=== PATIENT | male | born 1945 | race Caucasian/White ===

== ENCOUNTER 2017-06-07 01:28 | Emergency (ER) | payer MEDICARE ==
[~2017-06-07] VITALS: Ht 175.3 cm; Wt 90.7 kg
[~2017-06-07 01:28] MED LIST: AMLODIPINE BESY10 MG PO; ASPIRIN EC81 MG PO; CARVEDILOL25 MG PO; CLONIDINE HCL0.1 MG PO; DELZICOL400 MG PO; FENOFIBRATE160 MG PO; FERROUS SULFAT325 MG PO; FUROSEMIDE20 MG PO; HUMALOG MI100 UNITS/ SUB-Q; HYDRALAZINE HCL10 MG PO; JANUVIA100 MG PO; JANUVIA50 MG PO; LANTUS100 UNITS/ SUB-Q; LIPITOR40 MG PO; LISINOPRIL40 MG PO; LOSARTAN POTASS50 MG PO; NIACIN500 M1 PO; NORCO 5-325 TA1 EACH PO; PLAVIX75 MG PO; POTASSIUM CHLO20 ME1 PO; RENVELA800 MG PO; SODIUM BICARBO650 MG PO; TERAZOSIN HCL10 MG PO; TERAZOSIN HCL5 MG PO; VANCOCIN HCL125 MG PO; VITAMIN C250 MG PO; VITAMIN D10000 UNIT PO; VITAMIN D5000 UNIT PO
[2017-06-07] MEDS ORDERED: CARVEDILOL3.125 MG PO (02:06)
--- NOTE | 2017-06-07 15:53 | EKG ---
[facility] [address] [place] [address] Signed Sinus rhythm with premature supraventricular complexes Left ventricular hypertrophy with repolarization abnormality Prolonged QT Abnormal ECG When compared with ECG of 03-MAR-2016 04:37, premature ventricular complexes are no longer present premature supraventricular complexes are now present QT has lengthened Confirmed by EDDIE MATUTE MD ([id number]) on 06/07/2017 3:53:28 PM Electronically Signed By: EDDIE MATUTE MD 06/07/17 1553 PATIENT NAME: BRIANNA WHEATLEY Electrocardiogram DATE OF : 43 PHYSICIAN: EDDIE MATUTE MD REPORT #: [id number] REPORT IS CONFIDENTIAL AND NOT TO BE RELEASED WITHOUT AUTHORIZATION
== END 2017-06-07 03:25 | disposition home or self-care (01) ==
LOC: ED 01:28
DX: R41.82 Altered mental status, unspecified (principal); E11.22 Type 2 diabetes mellitus with diabetic chronic kidney disease; I12.9 Hypertensive chronic kidney disease with stage 1 through stage 4 chronic kidney disease, or unspecified chronic kidney disease; N18.9 Chronic kidney disease, unspecified; E78.5 Hyperlipidemia, unspecified; G47.30 Sleep apnea, unspecified; Z95.2 Presence of prosthetic heart valve; Z88.0 Allergy status to penicillin; Z79.82 Long term (current) use of aspirin; Z79.899 Other long term (current) drug therapy; Z79.84 Long term (current) use of oral hypoglycemic drugs; Z86.73 Personal history of transient ischemic attack (TIA), and cerebral infarction without residual deficits
CPT/HCPCS: 70450; 71010; 80053; 84100; 84484; 85025; 93005; 93010; 99284; G0480

== ENCOUNTER 2017-08-20 16:46 | Emergency (ER) | payer MEDICARE ==
[~2017-08-20] VITALS: Ht 175.3 cm; Wt 87.1 kg
--- OUTSIDE RECORDS SUMMARY | ~2017-08-20 | XMS | Clinical Summary ---
Demographics + + + | Address | [address] | | | [place] [address] | + + + | Home Phone | | + + + | Preferred Language | Unknown | + + + | Marital Status | | + + + | Caodaism Affiliation | Unknown | + + + | Race | White | + + + | Ethnic Group | Not or | + + + Author + + + | Author | NON REVENUE LOCATIONS | + + + | Organization | NON REVENUE LOCATIONS | + + + | Address | Unknown | + + + | Phone | Unavailable | + + + Support + + +---------+ + | Name | Relationship | Address | Phone | + + +---------+ + | Marcela Vital | ECON | Unknown | | + + +---------+ + Care Team Providers + +------+ + | Care High School French Teacher Name | Role | Phone | + +------+ + | Star Doll MD | PP | | + +------+ + Source Comments YS is fully live on both [facility] Ambulatory and [facility] InPatient.[facility] Allergies Not on File Current Medications Not on file Active Problems + + + | Problem | Noted Date | + + + | Heart failure, unspecified | | + + + + + | Overview: 2728 diagosis | + + Social History + +-------+ +--------+------+ [...] on file | | + + + Plan of Treatment + + + + + | Health Maintenance | Due Date | Last Done | Comments | + + + + + | INFLUENZA VACCINE | | | | | (FLU SHOT) | 7 | | | + + + + + Results Not on filefrom Last 3 Months"
--- OUTSIDE RECORDS SUMMARY | ~2017-08-20 | XMS | Clinical Summary ---
Demographics + + + | Address | [address] | | | [place] [address] | + + + | Home Phone | | + + + | Preferred Language | Unknown | + + + | Marital Status | | + + + | Orthodoxy Affiliation | Unknown | + + + [...] Team Providers + +------+ + | Care Applications Developer Name | Role | Phone | + +------+ + | Star Doll MD | PP | | + +------+ + Source Comments SY is fully live on both [facility] Ambulatory and [facility] InPatient.[facility] & [facility] Allergies Not on File Current Medications Not [...]
[~2017-08-20 16:46] MED LIST changes: +CARVEDILOL3.125 MG PO
[2017-08-20] MEDS ORDERED: TOUJEO SOL300 UNIT/1 SUB-Q (16:55)
== END 2017-08-20 17:40 | disposition home or self-care (01) ==
LOC: ED 16:46
DX: T82.838A Hemorrhage due to vascular prosthetic devices, implants and grafts, initial encounter (principal); I12.0 Hypertensive chronic kidney disease with stage 5 chronic kidney disease or end stage renal disease; N18.6 End stage renal disease; E78.5 Hyperlipidemia, unspecified; Z99.2 Dependence on renal dialysis; Z86.73 Personal history of transient ischemic attack (TIA), and cerebral infarction without residual deficits
CPT/HCPCS: 99282

== ENCOUNTER 2019-12-23 19:01 | Emergency (ER) | payer MEDICARE, OTHER ==
[~2019-12-23] VITALS: Ht 175.3 cm; Wt 87.4 kg
--- OUTSIDE RECORDS SUMMARY | ~2019-12-23 | XMS | Encounter Summary ---
Demographics + + + | Address | [address] | | | [place] [address] | + + + | Home Phone | | + + + | Preferred Language | Unknown | + + + | Marital Status | | + + + | Scientology Affiliation | Unknown | + + + | Race | Unknown | + + + | Ethnic Group | Unknown | + + + Author + + + | Author | [facility] | | | and [place] | + + + | Organization | [facility] | | | and [place] | + + + | Address | Unknown | + + + | Phone | Unavailable | + + + Support + + + + + | Name | Relationship | Address | Phone | + + + + + | Marcela Vital | ECON | [address] | | | | | [address] | | | | | [address] | | + + + + + | Parth Vital | ECON | Unknown | | + + + + + Care Team Providers + +------+ + | Care German Tutor Name | Role | Phone | + +------+ + | Star Doll MD | PCP | | + +------+ + Reason for Visit + + + | Reason | Comments | + + + | Follow-up | 6 month with echo | + + + Encounter Details +--------+---------+ + + + | Date | Type | Department | Care Team | Description | +--------+---------+ + + + | 05/04/ | Office | [facility] | See Sotelo, | S/P TAVR | | 2019 | Visit | CARDIOLOGY [facility]ER[facility]O | [address] | (transcatheter | | | | [address] | [address], | aortic valve | | | | [address] | [place] [address] | replacement) | | | | [place] | [phone] | (Primary Dx); Aortic | | | | [address] | | valve stenosis, | | | | [phone] | | etiology of cardiac | | | | | | valve disease | | | | | | unspecified; | | | | | | Essential | | | | | | hypertension; | | | | | | Coronary artery | | | | | | disease involving | | | | | | hydaburg coronary | | | | | | artery of hydaburg | | | | | | heart without angina | | | | | | pectoris; History | | | | | | of non-ST elevation | | | | | | myocardial | | | | | | infarction (NSTEMI); | | | | | | Status post | | | | | | percutaneous | | | | | | transluminal | | | | | | coronary | | | | | | angioplasty; | | | | | | Cerebrovascular | | | | | | accident (CVA), | | | | | | unspecified | | | | | | mechanism (HCC); | | | | | | Type 2 diabetes | | | | | | mellitus with | | | | | | diabetic | | | | | | nephropathy, with | | | | | | long-term current | | | | | | use of insulin | | | | | | (HCC); Stage 5 | | | | | | chronic kidney | | | | | | disease (HCC) | +--------+---------+ + + + Social History + +-------+ +--------+------+ | Tobacco Use | Types | Packs/Day | Years | Date | | | | | Used | | + +-------+ +--------+------+ | Never Smoker | | | | | + +-------+ +--------+------+ + +---+---+---+ | Smokeless Tobacco: | | | | | Never Used | | | | + +---+---+---+ + + +---------+ + | Alcohol Use | Drinks/Week | oz/Week | Comments | + + +---------+ + | No | | | | + + +---------+ + + + + | Sex Assigned at | Date Recorded | | | | + + + | Not on file | | + + + documented as of this encounter Last Filed Vital Signs + + + + + | Vital Sign | Reading | Time Taken | Comments | + + + + + | Blood Pressure | 134/72 | 05/04/2019 2:33 PM | | | | | PST | | + + + + + | Pulse | 83 | 05/04/2019 2:33 PM | | | | | PST | | + + + + + | Temperature | - | - | | + + + + + | Respiratory Rate | 16 | 05/04/2019 2:33 PM | | | | | PST | | + + + + + | Oxygen Saturation | 98% | 05/04/2019 2:33 PM | | | | | PST | | + + + + + | Inhaled Oxygen | - | - | | | Concentration | | | | + + + + + | Weight | 90.9 kg (200 lb 4.8 | 05/04/2019 2:33 PM | | | | oz) | PST | | + + + + + | Height | 177.8 cm (5' 10") | 05/04/2019 2:33 PM | | | | | PST | | + + + + + | Body Mass Index | 28.74 | 05/04/2019 2:33 PM | | | | | PST | | + + + + + documented in this encounter Progress Notes See Sotelo MD - 05/04/2019 2:15 PM PSTFormatting of this note might be different corinna lazo the original. Subjective: Patient ID: Duane Vital is a 74 y.o. male. Patient's medications, allergies, past medical, surgical, social and family histories were obtained and reviewed as appropriate. HPI Mr. Vital, accompanied by his , came to the office for a follow up appointment for h is multiple cardiovascular problems. I have not seen him personally since 08/27/16, but he has been followed very EDSON Busby over the last 2 years and I reviewed her records. He had an acute NSTEMI and acute/chronic systolic heart failure in February,. He had 4 drug-eluting stents placed, and underwent catheterization in April in [facility] in [place]. His EF improved from 30-35% in February to 60%, as seen on his mo st recent echocardiogram, 03/25/19, which also showed normal TAVR function. He has had no s ignificant weight gain, has no pedal edema (he is on hemodialysis), denies chest pain, press ure or discomfort, orthopnea or paroxysmal nocturnal dyspnea. He remains on HD 3x per week, turned down as a transplant candidate at [facility] 2 years ago. He seems stable, however, and I made no changes in his medications. At this point, he can go to annual follow-up visits, b ut was advised to call for an earlier appointment if he develops any new symptoms or cardiac problems.. ROS CONSTITUTIONAL: Morbid obesity. No recent significant weight change, denies recent fever, chills (although he states he feels cold all the time), night sweats, but he has significan t fatigue NEUROLOGIC: He had a right-sided CVA, with residual left hand and finger numbness and tin gling, but no other residual deficits. He denies any history of migraines, seizures, syncope . He notes occasional dizziness, lightheadedness. Records from Dr. 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 He has diabetic retinopathy. 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 He has vitamin D deficiency.. No history of thyroid disorders or other endocrine problems. No excessive hunger, thirst. PULMONARY/SLEEP: He has mild dyspnea, as noted above, no orthopnea, paroxysmal nocturnal dyspnea. No history of asthma, emphysema. He has mild obstructive sleep apnea by history , but denies significant snoring, although he does admit to daytime somnolence. Sleep is n ot usually refreshing. CARDIOVASCULAR: Denies chest pain, pressure or discomfort. He has a history of CAD, NSTEM I 03/03/16, subsequently had 4 drug-eluting Stents placed. He had acute/chronic Systolic Hear t Failure, radiographic evidence of pulmonary edema 03/03/16. No history of cardiac arrhythmi as. No palpitations. Severe , TAVR 04/24, history of heart murmur, rheumatic fever. No h istory of hypertension, but has Hyperlipidemia. No edema, no claudication symptoms. -- Echo (03/25/19 - [facility]): EF 60%, normal RV size, function, normal TAVR with a small parava lvular leak, mild MR, trace TR, peak RVSP 24 mm Hg -- Echo (08/06/16): EF 60-65%, grade 1 diastolic dysfunction, normal RV size and function. N ormally functioning bioprosthetic aortic valve. No pericardial effusion. -- TAVR, #26 Retana-Agustín 3 (04/15/16 - [facility] Endocarditis prophylaxis required. -- PCI/stent (03/10/16): mid-LAD 3.73a64xe Xience, D1 2.53e29bw Xience. 03/13/16, prox-mid-RC A 2.78o82kz, 2.5x38mm Xience -- Cardiac Cath (03/04/16): RA 8, RV 47/13, PAP 36/19 (27), PCWP 23, CO 9.3, trans-aortic gr adient peak 40mmHg, mean 32, ZEKE 1.5, LM-mildly calcified without significant stenosis, 60% mid-LAD, 60% ostial S1, 80% D1, 50% ostial ramus, 40-50% LCx/OM, large RCA, 50/70/50% mid-RC A, small RPDA/RPLA. -- Echo (04/16/16 - [facility]): moderate concentric LVH, LVEF 55%, moderate LAE, A ortic root 38mm, TAVR (peak/mean gradients 25/12mmHg), trace AI, no MR, trace TR, trace PI -- Echo (01/29/16-[facility]): EF 62%, severe , ZEKE 0.9 cm, peak/mean transval vular gradient 63/40 mmHg. Moderate LAE, mild RVE, trace MR, TR, PI. No evidence of pulmonar y hypertension. -- Echo (03/05/16): EF 30-35%, mild RVE with normal function, severe , ZEKE 0.96 cm,pea k transvalvular velocity 4.1 m/s, peak/mean gradients 57 / 39 mm Hg, moderate Pulmonary HTN, RVSP 55 mm Hg GASTROINTESTINAL: No recent abdominal pain, nausea, vomiting or diarrhea. He had an upper GI bleed in January,, due to PUD (ulcer cauterized on EGD) denies recent melena, hemato chezia, hepatitis. He had evidence of diverticulosis on a colonoscopy 11/18/13. 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 Oliguria. No dysuria, hematuria, urinary ur gency, hesitancy. HEMATOLOGY/ONCOLOGY: No h/o bleeding disorders, DVT, PE. He notes easy bruisability w ithout significant bleeding. He has a history of chronic iron deficiency anemia, received intravenous iron at one time, due to his chronic kidney disease. No history of blood transfu sions. He has a history of skin cancer removed from his mid forehead. MUSCULOSKELETAL: No myalgias, arthralgias. No history of rheumatologic or autoimmune di seases. CUTANEOUS: Skin cancer removed from his forehead. No rashes, pruritus, lesions. PSYCHIATRIC: No history of depression, anxiety or other psychiatric problems. Past Medical History: Diagnosis Date Acute diastolic congestive heart failure (HCC) 03/03/2016 Acute upper GI bleed 01/18/2014 PUD on EGD, ulcer cauterized ADHF (acute decompensated heart failure) 03/09/2016 Anemia of chronic renal failure 01/24/2012 Aortic valve stenosis, severe Olvera's palsy 1997, 2004 Chronic kidney disease Stage IV-V Coronary artery disease involving hydaburg coronary artery of hydaburg heart Coronary artery disease involving hydaburg coronary artery with unstable angina pectoris (HCC) moderate 3-vessel CAD CVA (cerebral infarction) 2009 Left leg and arm weakness. Residual dysethesias of left arm Diabetes mellitus, type 2 ([facility]) 2005 Insulin-requiring, with diabetic Nephropathy, Retinopathy Diabetes type 2 with atherosclerosis of arteries of extremities ([facility]) HBP (high blood pressure) HFrEF (heart failure with reduced ejection fraction) ([facility]) 03/09/2016 Hypercholesterolemia Hyperlipidemia Hypertension Kidney disorder NSTEMI (non-ST elevated myocardial infarction) ([facility]) 03/03/2016 YISEL (obstructive sleep apnea) Paroxysmal atrial fibrillation ([facility]) 03/04/2016 Retinopathy due to secondary diabetes ([facility]) S/P PTCA (percutaneous transluminal coronary angioplasty) 03/10/2016 D1 - 2.25X15 mm Xience Alpine MESSI; mid LAD - 3.25X38 mm Xience Alpine MESSI S/P PTCA (percutaneous transluminal coronary angioplasty) 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 #26 Retana-Agustín 3 - [place] Secondary pulmonary hypertension mild (by cath - moderate by echo) Skin cancer Sleep apnea dx light apnea Stroke ([facility]) 2010 right surface stroke, residual left hand numbness/tingling Vitamin D deficiency Past Surgical History: Procedure Laterality Date AORTIC VALVE REPLACEMENT 04/15/2016 #26 Retana-Agustín 3 - [place] COLONOSCOPY CORONARY ANGIOPLASTY WITH STENT PLACEMENT 03/10/2016 D1 - 2.25X15 mm Xience Alpine MESSI; mid LAD - 3.25X38 mm Xience Alpine MESSI OTHER SURGICAL HISTORY Bilateral 2005? CATARACT EXTRACTION OTHER SURGICAL HISTORY Right 03/01/2016 AV FISTULA PLACEMENT - Procedure: AV FISTULA; Surgeon: Vivek Dias MD; Location: [facility] [place] [facility]; Service: Vascular; Laterality: Right; brachiocephalic fistula creation OTHER SURGICAL HISTORY ANOMALOUS PULMONARY VENOUS RETURN REPAIR TOTAL SKIN CANCER EXCISION mid forehead UPPER GASTROINTESTINAL ENDOSCOPY 01/18/2014 Procedure: ESOPHAGOGASTRODUODENOSCOPY; Surgeon: Caitlyn Khan MD; Location: [facility] ENDOSCOPY; Service: Gastroenterology; Laterality: N/A; Family History Problem Relation Age of Onset High blood pressure Sister Asthma Daughter High blood pressure Son Sleep apnea Brother Heart surgery Brother Cancer Mother unknown type Heart disease Father 68 [place] Other (see comment) Brother Kidney failure - had renal transplant Malig hypertherm Neg Hx Social History Socioeconomic History Marital status: Spouse name: Not on file Number of children: 2 Years of education: Not on file Highest education level: Not on file Occupational History Occupation: [employer] Comment: Retired Social Needs Financial resource strain: Not on file Food insecurity: Worry: Not on file Inability: Not on file Transportation needs: Medical: Not on file Non-medical: Not on file Tobacco Use Smoking status: Never Smoker Smokeless tobacco: Never Used Substance and Sexual Activity Alcohol use: No Drug use: No Comment: Drug use: No Sexual activity: Not on file Lifestyle Physical activity: Days per week: Not on file Minutes per session: Not on file Stress: Not on file Relationships Social connections: Talks on phone: Not on file Gets together: Not on file Attends moravian service: Not on file Active member of club or organization: Not on file Attends meetings of clubs or organizations: Not on file Relationship status: Not on file Intimate partner violence: Fear of current or ex partner: Not on file Emotionally abused: Not on file Physically abused: Not on file Forced sexual activity: Not on file Other Topics Concern Not on file Social History Narrative Lives in [facility], independent with activities of daily living, no falls, full co de. Allergies Allergen Reactions Penicillins Rash Reacted with a rash as a child. Has not had penicillins since. Cholestyramine Nausea And Vomiting Gemfibrozil Nausea And Vomiting Intolerance No active intolerances/contraindications Current Outpatient Medications Medication Sig Dispense Refill aspirin 81 mg EC tablet Take 81 mg by mouth Daily. atorvaSTATin (LIPITOR) 40 mg tablet B Kcotrkp-O-Afodn Acid (MARIELENA-MILADYS) TABS Take 1 tablet by mouth. carvedilol (COREG) 25 mg tablet Take 25 mg by mouth 2 times daily (with breakfast & din ner). cephalexin (KEFLEX) 500 mg capsule cholecalciferol (VITAMIN D-3) 1,000 units capsule Take 2,000 Units by mouth daily. clindamycin (CLEOCIN) 150 mg capsule ezetimibe (ZETIA) 10 mg tablet furosemide (LASIX) 40 mg tablet Take 2 tablets by mouth daily. Two tablets daily. Glucose Blood (BLOOD GLUCOSE TEST STRIPS) STRP 1 each by Other route as needed. Use as instructed insulin glargine (TOUJEO SOLOSTAR) 300 units/mL concentrated injection (pen) Inject 40 Units as directed daily. liraglutide (VICTOZA) 18 mg/3 mL injection 0.6 mg. losartan (COZAAR) 100 MG tablet Take 100 mg by mouth nightly. metFORMIN (GLUCOPHAGE) 500 mg tablet Take 1,000 mg by mouth 3 (three) times a week. Aft er HD Mon/Wed/Fri minoxidil 2.5 mg tablet Take 2 tablets by mouth every morning. 180 tablet 3 mometasone (ELOCON) 0.1 % cream potassium chloride (MICRO-K) 10 mEq CR capsule Take 1 capsule by mouth daily. terazosin (HYTRIN) 10 MG capsule Take 10 mg by mouth nightly. TRESIBA FLEXTOUCH 200 UNIT/ML concentrated injection (pen) UNIFINE PENTIPS 32G X 4 MM MISC No current facility-administered medications for this visit. Objective: BP 134/72 | Pulse 83 | Resp 16 | Ht 1.778 m (5' 10") | Wt 90.9 kg (200 lb 4.8 oz) | Sp O2 98% | BMI 28.74 kg/m PHYSICAL EXAM GENERAL: Morbidly obeseWell developed, well nourished elderly male, in no distr ess. Appears approximately stated age. HEENT: Normocephalic, atraumatic. EYES: Well healed iridectomies. PERRL, sclerae anicteric, no xanthelsasmas MOUTH: Oral mucosae moist, dentition adequate, no lesions noted NECK: No JVD, lymphadenopathy, thyromegaly, bruits. Carotid pulses are 1+ bilateral ly and delayed LUNGS: Clear bilaterally, with no rales, rhonchi, or wheezing noted, respirations unlabor ed HEART: Nondisplaced PMI, regular rate and rhythm, S1, S2 normal. 2/6 systolic crescendo decrescendo murmur at the base, radiating to the left sternal border. No rubs or gallops no doyle. ABDOMEN: Obese. Soft, nontender, no organomegaly, masses or bruits. Bowel sounds are no rmal in all 4 quadrants. The abdominal aortic pulsation is not palpable. EXTREMITIES: no edema bilaterally. Radial pulses 2+ on the left, nonpalpable on the right , where a brachiocephalic AV fistula surgical site is bandaged.. Femoral pulses are 2+ monica aterally without bruits. DP and PT pulses are 1+ bilaterally. SKIN: Warm and dry, capillary refill is normal, no lesions. NEUROLOGIC: Awake, alert and oriented x 3. No focal motor deficits. PSYCHIATRIC: Appropriate, affect appears normal EKG (recently reviewed today): Normal sinus rhythm, rate 82, first-degree AV block, mild, n onspecific inferolateral ST-T abnormalities, prolonged QT interval, QTc 507 ms, unable to co mpare directly with prior tracings due to computer issues the previous tracing 03/05/2018 rep orted a QTC of 492 ms Assessment: Duane was seen today for follow-up. Diagnoses and all orders for this visit: S/P TAVR (transcatheter aortic valve replacement) - ECG 12 lead Aortic valve stenosis, etiology of cardiac valve disease unspecified - ECG 12 lead Essential hypertension - ECG 12 lead Coronary artery disease involving hydaburg coronary artery of hydaburg heart without angina pec toris History of non-ST elevation myocardial infarction (NSTEMI) Status post percutaneous transluminal coronary angioplasty Cerebrovascular accident (CVA), unspecified mechanism (HCC) Type 2 diabetes mellitus with diabetic nephropathy, with long-term current use of insulin ( [facility]) Stage 5 chronic kidney disease (HCC) Plan: Follow up in 1 year documented in this en counter Plan of Treatment Not on filedocumented as of this encounter Procedures + +--------+ + + + | Procedure Name | Priori | Date/Time | Associated Diagnosis | Comments | | | ty | | | | + +--------+ + + + | ECG 12 LEAD | Routin | 05/04/2019 | S/P TAVR | Results for this | | | e | 2:39 PM | (transcatheter | procedure are in the | | | | PST | aortic valve | results section. | | | | | replacement) Aortic | | | | | | valve stenosis, | | | | | | etiology of cardiac | | | | | | valve disease | | | | | | unspecified | | | | | | Essential | | | | | | hypertension | | + +--------+ + + + documented in this encounter Results ECG 12 lead (05/04/2019 2:39 PM PST) + + + + + + | Component | Value | Ref Range | Performed | Pathologist | | | | | At | Signature | + + + + + + | VENTRICULAR | 82 | BPM | [facility] | | | RATE EKG | | | | | + + + + + + | ATRIAL RATE | 82 | BPM | [facility] | | + + + + + + | P-R | 240 | ms | [facility] | | | INTERVAL | | | | | + + + + + + | QRS | 96 | ms | [facility] | | | DURATION | | | | | + + + + + + | Q-T | 434 | ms | [facility] | | | INTERVAL | | | | | + + + + + + | Q-T | 507 | ms | [facility] | | | INTERVAL | | | | | | (CORRECTED) | | | | | + + + + + + | P WAVE AXIS | 111 | degrees | [facility] | | + + + + + + | QRS AXIS | 55 | degrees | [facility] | | + + + + + + | T AXIS | 88 | degrees | [facility] | | + + + + + + | INTERPRETAT | Sinus rhythm with 1st | | [facility] | | | ION TEXT | degree A-V | | | | | | blockProlonged | | | | | | QTAbnormal ECGWhen | | | | | | compared with ECG of | | | | | | 05-MAR-2018 | | | | | | 12:49,Previous ECG has | | | | | | undetermined rhythm, | | | | | | needs reviewNon-specific | | | | | | change in ST segment in | | | | | | Inferior | | | | | | leadsNonspecific T wave | | | | | | abnormality no longer | | | | | | evident in Inferior | | | | | | leadsPlease refer to | | | | | | Providers office visit | | | | | | note for Providers | | | | | | Interpretation.Confirmed | | | | | | by [facility] Read Only, | | | | | | CLAUDY Hawthorne ([id number]), | | | | | | medical editor [employer] | | | | | | [phone]) on 05/04/2019 | | | | | | 4:55:24 PM | | | | + + + + + + + + | Specimen | + + | | + + + + + | Narrative | Performed At | + + + | | | + + + + +---------+ + + | Performing | Address | City/State/Zipcode | Phone Number | | Organization | | | | + +---------+ + + | [facility] | | | | + +---------+ + + documented in this encounter Visit Diagnoses + + | Diagnosis | + + | S/P TAVR (transcatheter aortic valve replacement) - Primary | + + | Aortic valve stenosis, etiology of cardiac valve disease unspecified | + + | Essential hypertension Unspecified essential hypertension | + + | Coronary artery disease involving hydaburg coronary artery of hydaburg heart without | | angina pectoris | + + | History of non-ST elevation myocardial infarction (NSTEMI) Old myocardial infarction | + + | Status post percutaneous transluminal coronary angioplasty Postsurgical percutaneous | | transluminal coronary angioplasty status | + + | Cerebrovascular accident (CVA), unspecified mechanism (HCC) | + + | Type 2 diabetes mellitus with diabetic nephropathy, with long-term current use of | | insulin (HCC) | + + | Stage 5 chronic kidney disease (HCC) | + + documented in this encounter
--- OUTSIDE RECORDS SUMMARY | ~2019-12-23 | XMS | Encounter Summary ---
Demographics + + + | Address | [address] | | | [place] [address] | + + + | Home Phone | | + + + | Preferred Language | Unknown | + + + | Marital Status | | + + + | Shinto Affiliation | Unknown | + + + | Race | Unknown | + + + | Ethnic Group | Unknown | + + + Author + + + | Author | [facility] | | | and [place] | + + + | Organization | [facility] | | | and [place] | + + + | Address | Unknown | + + + | Phone | Unavailable | + + + Support + + + + + | Name | Relationship | Address | Phone | + + + + + | Marcela Jamesgan | ECON | [address] | | | | | [address] | | | | | [address] | | + + + + + | Parth Vital | ECON | Unknown | | + + + + + Care Team Providers + +------+ + | Care Photo Mask Inspector Name | Role | Phone | + +------+ + | Star Harris MD | PCP | | + +------+ + Encounter Details +--------+ + + + + | Date | Type | Department | Care Team | Description | +--------+ + + + + | 03/01/ | Hospital | [facility] | Vivek Dias MD | | | 2016 - | Encounter | [facility] | [address] | | | | | CARE [address]LO[address] | [place], [place] | | | 03/02/ | | [place] | [address] | | | 2015 | | [place], [place] | [phone] | | | | | [address] | | | | | | [phone] | | | +--------+ + + + + Social History + +-------+ [...] + + + | Blood Pressure | 164/72 | 03/02/2016 11:21 AM | | | | | PDT | | + + + + + | Pulse | 76 | 03/02/2016 11:21 AM | | | | | PDT | | + + + + + | Temperature | 36.6 C (97.9 F) | 03/02/2016 11:21 AM | | | | | PDT | | + + + + + | Respiratory Rate | 20 | 03/02/2016 11:21 AM | | | | | PDT | | + + + + + | Oxygen Saturation | - | - | | + + + + + | Inhaled Oxygen | - | - | | | Concentration | | | | + + + + + | Weight | 101.2 kg (223 lb 1.8 | 03/02/2016 11:21 AM | | | | oz) | PDT | | + + + + + | Height | 175.3 cm (5' 9") | 03/02/2016 11:21 AM | | | | | PDT | | + + + + + | Body Mass Index | 32.95 | 03/02/2016 11:21 AM | | | | | PDT | | + + + + + documented in this encounter Discharge Summaries Vishal Reza MD - 03/02/2016 10:57 AM PDTFormatting of this note might be differe nt from the original. Discharge Summaries by Vishal Reza MD at 03/02/16 1057 Author: Vishal Reza MD Service: Hospitalist Author Type: Physician Filed: 03/02/161812 Date of Service: 03/02/161056 Status: Signed Line Pilot: Vishal Reza MD (Physician) Related Notes: Original Note by Vishal Reza MD (Physician) filed at 03/02/16 11 06 [facility] Service: Hospitalist Physician Discharge Summary Pt: Duane Vital AGE/SEX: 70 y.o. male ROOM: 4463/4463-1 PCP: STAR HARRIS : 1945 Admit date: 03/01/2016 Discharge date and time: 03/02/16 Admitting Physician: Vivek Dias MD Discharge Physician: Vishal Reza MD Consults: Dr. Dias Primary Discharge Diagnoses: Principal Problem: Bradycardia Active Problems: Type 2 diabetes mellitus with diabetic nephropathy (HCC) Essential hypertension, benign Diabetic nephropathy (HCC) Dyslipidemia Obesity Proteinuria Iron deficiency Anemia of chronic renal failure, stage 5 (HCC) Aortic stenosis Chronic kidney disease, stage V (HCC) Resolved Problems: * No resolved hospital problems. * Secondary Discharge Diagnoses: Discharged Condition: stable Significant Diagnostic Studies: Us Arm Right Mapping For Dialysis 02/29/2016 1. A brachiocephalic fistula may be the best choice, as the basilic vein has a low insertion point and there is a stenosis of the distal radial artery Left hand dominant patient Would correlate with individual surgical protocol for this individual patient Sara ctronically signed by Aki Meyers MD on 02/29/2016 4:50 PM HPI and Hospital Course: This patient has a history of chronic kidney disease stage V, diabetes mellitus, severe ao rtic stenosis, hypertension, obesity, coronary artery disease. He underwent an AV-fistula pl acement in the right arm yesterday for future hemodialysis and after surgery the patient dev eloped bradycardia and hypotension and he felt dizzy. Hence, the patient was admitted to the hospital by the hospitalist services. Patient is on carvedilol at home. It was thought that the bradycardia and hypotension were a combination of medications, aortic stenosis and anes thesia. The patient received ephedrine and was also given 500 mL of normal saline bolus. Thi s increased his heart rate from 44 to 52 and blood pressure normalized. The admitting physic radha spoke to Dr. Germain, his regular dispatcher electric power, who suggested to monitor the patient overn ight. HOSPITAL COURSE The patient did not have any more events and his heart rate remained any where between 60 t o 70 and blood pressure was also normal. He received 110 mL of normal saline every hour. Diz ziness resolved. Today, patient is totally asymptomatic albeit some pain in the right arm at the site of the incision and wants to go home. His vitals are stable. Creatinine is 8.2 wit h BUN of 58 today. However, CO2 and potassium are both normal and patient does not have any signs or uremia. Hence, he does not require any urgent hemodialysis. He had a borderline low platelet count of 31 and hemoglobin is 8.3. Anemia is most likely of anemia of chronic dise ase. As patient is much improved now and has attained his baseline status, hence, he will be dis charged home. However, he will follow with Dr. Germain and Dr. Ly. He will receive postopera tive care by Dr. Dias upon discharge. I will continue all his home medications except carvedi lol until he sees Dr. Germain. Discharge Vitals: Filed Vitals: 03/02/16 0500 03/02/16 0558 03/02/16 0722 03/02/16 1029 BP: 173/77 171/76 156/86 Pulse: 62 65 72 Temp: 98 F (36.7 C) TempSrc: Axillary Resp: 20 Height: Weight: 101.2 kg (223 lb 1.7 oz) SpO2: 94% 94% Discharge Exam: Constitutional: Alert and oriented to person, place, and time. Appears well-developed and w ell-nourished. Cardiovascular: Normal rate, regular rhythm, normal heart sounds with S1 and S2 and intact distal pulses. Exam reveals no gallop and no friction rub. Systolic murmur grade III/ ov er aortic area and left sternal border heard. Pulmonary/Chest: Effort normal and breath sounds normal. No stridor. No respiratory distres s. no wheezes. no rales. exhibits no tenderness. Abdominal: Soft. Bowel sounds are normal. exhibits no distension and no mass. There is no t enderness. There is no rebound and no guarding. Musculoskeletal: Normal range of motion.exhibits no tenderness. exhibits no edema. Dressin g over right antecubital fossa. Neurological: Alert and oriented to person, place, and time. No cranial nerve deficit. Ex hibits normal muscle tone. Coordination normal. Skin: Skin is warm and dry. No rash noted. No erythema. Positive pallor. Psychiatric: Has a normal mood and affect. Behavior is normal. Judgment normal. LABS: Recent Labs Lab 03/02/16 0420 03/01/16 1024 WBC 6.99 6.17 HGB 8.3* 8.9* HCT 24.4* 26.7* PLT 131* 138* NEUTOPHILPCT 71.67 66.32 MONOPCT 10.26 10.29 Recent Labs Lab 03/02/16 0420 03/01/16 1024 NA 143 142 K 4.1 4.3 CL 109 108 CO2 23 22* BUN 58* 58* CREATININE 8.2* 8.1* PROT 5.7* -- BILITOT 0.3 -- ALT 13 -- AST 8* -- Invalid input(s): LABALBU Recent Labs Lab 03/02/16 0420 MG 2.3 No results for input(s): AMYLASE in the last 168 hours. No results for input(s): PHART, PO2ART, RRI0EEG, J3GYMBYW, BEART in the last 168 hours. No results for input(s): APTT, INR, PTT in the last 168 hours. Recent Labs Lab 03/02/16 0016 03/01/16 1809 03/01/16 1511 CKTOTAL 124 120 128 TROPONINI 0.021 0.027 0.026 CKMBINDEX 1.9 2.0 1.7 Disposition: Home or Self Care Patient Instructions: Medication List START taking these medications HYDROcodone-acetaminophen 5-325 MG per tablet QTY: 30 tablet Refills: 0 Commonly known as: NORCO Take 1-2 tablets by mouth every 6 (six) hours as needed for Pain. CONTINUE taking these medications amLODIPine 10 MG tablet Refills: 0 Commonly known as: NORVASC aspirin 81 MG tablet Refills: 0 atorvastatin 40 MG tablet Refills: 0 Commonly known as: LIPITOR furosemide 20 MG tablet Refills: 0 Commonly known as: LASIX glucose blood test strip Refills: 0 hydrALAZINE 10 MG tablet QTY: 84 tablet Refills: 3 Commonly known as: APRESOLINE Take 1 tablet by mouth 3 (three) times daily. insulin glargine 300 UNIT/ML injection Refills: 0 Commonly known as: TOUJEO losartan 50 MG tablet Refills: 0 Commonly known as: COZAAR sevelamer 800 MG tablet QTY: 180 tablet Refills: 11 Commonly known as: RENVELA Take 1 tablet by mouth 3 (three) times daily with meals. During meals. sitagliptan 100 MG tablet Refills: 0 Commonly known as: JANUVIA sodium bicarbonate 650 MG tablet QTY: 120 tablet Refills: 11 Take 1 tablet by mouth 4 (four) times daily. terazosin 5 MG capsule Refills: 0 Commonly known as: HYTRIN VITAMIN D PO Refills: 0 STOP taking these medications carvedilol 25 MG tablet Commonly known as: COREG Where to Get Your Medications These are the prescriptions that you need to shrimp picker. You may get the following medications from any pharmacy - HYDROcodone-acetaminophen 5-325 MG per tablet Activity: activity as tolerated Diet: diabetic diet and renal diet Wound Care: as directed Total time of discharge: 35 minutes. This included talking to patient, examining patient, d iscussing outpatient plan of care, reconciling home medications and dictating discharge summ carol. Follow-up with PCP in 4 days. Signed: Vishal Reza MD 03/02/2016 10:57 AM documented in this encounter Medications at Time of Discharge + + + +---------+ + + | Medication | Sig | Dispensed | Refills | Start | End Date | | | | | | Date | | + + + +---------+ + + | aspirin 81 mg EC | Take 81 mg by mouth | | 0 | | | | tablet | Daily. | | | | | + + + +---------+ + + | carvedilol (COREG) | Take 25 mg by mouth | | 0 | | | | 25 mg tablet | 2 times daily (with | | | | | | | breakfast & dinner). | | | | | + + + +---------+ + + | amlodipine | Take 10 mg by mouth | | 0 | | | | (NORVASC) 10 MG | Daily. | | | | 9 | | tablet | | | | | | + + + +---------+ + + | Ascorbic Acid | Take 250 mg by mouth | | 0 | | | | (VITAMIN C) 250 MG | 2 times daily. | | | | 9 | | tablet | | | | | | + + + +---------+ + + | Cholecalciferol | Take 1 capsule by | | 0 | | | | (VITAMIN D3) 5000 | mouth Daily. | | | | 9 | | UNITS CAPS | | | | | | + + + +---------+ + + | cloNIDine | Take 0.1 mg by | | 0 | | | | (CATAPRES) 0.1 mg | mouth. Two tablets | | | | 9 | | tablet | two times daily | | | | | + + + +---------+ + + | clopidogrel | Take 75 mg by mouth | | 0 | | | | (PLAVIX) 75 mg | Daily. | | | | 9 | | tablet | | | | | | + + + +---------+ + + | fenofibrate | Take 160 mg by mouth | | 0 | | | | (LOFIBRA, TRIGLIDE) | Daily. | | | | 9 | | 160 mg tablet | | | | | | + + + +---------+ + + | ferrous gluconate | Take 324 mg by mouth | | 0 | | | | (FERGON) 324 mg | 2 times daily (with | | | | 9 | | tablet | breakfast & | | | | | | | dinner). | | | | | + + + +---------+ + + | furosemide (LASIX) | Take 20 mg by mouth | | 0 | | | | 20 mg tablet | Daily. | | | | 9 | + + + +---------+ + + | insulin lispro | Inject 40 Units | | 0 | | | | protamine-insulin | under the skin 2 | | | | 9 | | lispro 75/25 | times daily (with | | | | | | (HUMALOG MIX 75/25 | breakfast & dinner). | | | | | | KWIKPEN) 100 | | | | | | | units/mL SUSP | | | | | | + + + +---------+ + + | lisinopril | Take 40 mg by mouth | | 0 | | | | (PRINIVIL,ZESTRIL) | Daily. | | | | 9 | | 40 MG tablet | | | | | | + + + +---------+ + + | niacin 500 mg | Take 500 mg by mouth | | 0 | | | | tablet | 2 times daily (with | | | | 9 | | | breakfast & | | | | | | | dinner). | | | | | + + + +---------+ + + | simvastatin | Take 40 mg by mouth | | 0 | | | | (ZOCOR) 80 mg tablet | nightly. | | | | 9 | + + + +---------+ + + | sitaGLIPtin | Take 100 mg by mouth | | 0 | | | | (JANUVIA) 100 mg | Daily. | | | | 9 | | tablet | | | | | | + + + +---------+ + + | terazosin (HYTRIN) | Take 5 mg by mouth | | 0 | | | | 5 mg capsule | nightly. | | | | 9 | + + + +---------+ + + | UNCODED | Wear while sleeping | 1 | 0 | 12/31/19 | | | MEDICATIONIndication | | Device | | 13 | 9 | | s: YISEL (obstructive | | | | | | | sleep apnea) | | | | | | + + + +---------+ + + documented as of this encounter Progress Notes Conversion Transaction, Provider Unknown - 03/02/2016 12:27 PM PDTFormatting of this note m ight be different from the original. Nurse Progress Note by Maurilio Bennett RN at 03/02/161226 Author: Maurilio Bennett RN Service: (none) Author Type: Registered Nurse Filed: 03/02/168 Date of Service: 03/02/161226 Status: Signed Line Pilot: Maurilio Bennett RN (Registered Nurse) Patient discharged to home via private vehicle with family. Went over AVS with Patient and answered all questions posed. No further questions at this time. Patient in stable conditi on. onver rosie Transaction, Provider Unknown - 03/02/2016 6:18 AM PDT Nurse Progress Note by Bereket Tabares RN at 03/02/16617 Author: Bereket Tabares RN Service: (none) Author Type: Registered Nurse Filed: 03/02/16626 Date of Service: 03/02/16617 Status: Signed Line Pilot: Bereket Tabares RN (Registered Nurse) Pt has remained asymptomatic throughout the night. HR has stayed in the upper 50's to 60's . SBP ashok from 130 to 150's. Hospitalist notified, decreased IVF to 50ml/hr. This AM, pt' s SBP continued to rise to the 170's, pt tolerating PO fluids, so IVF was stopped at 0610. Pt only able to void 50mL during the shift, bladder scan shows 359mL in bladder at 0600. Pt has intermittent urge to void. Pt's Blood glucose this AM was in the 60's. No insulin given last evening. Pt's blood suga r unable to rise above 70 after 3 juices and matt crackers. Will give 12mL D50 and rechec k. Will continue to monitor closely. onver rosie Transaction, Provider Unknown - 03/01/2016 4:42 PM PDT Progress Notes by Sandra Bliss RN at 03/01/16 9831 Author: Sandra Bliss RN Service: (none) Author Type: Registered Nurse Filed: 03/01/16 1643 Date of Service: 03/01/16 1642 Status: Signed Line Pilot: Sandra Bliss RN (Registered Nurse) [place] [address]; pt stable; hr=45; will bring pt up on portable monitor onver rosie Transaction, Provider Unknown - 03/01/2016 4:11 PM PDT Progress Notes by Flores Rausch RPH at 03/01/16 161 Author: Flores Rausch RPH Service: (none) Author Type: Pharmacist Filed: 03/01/161610 Date of Service: 03/01/16 161 Status: Signed Line Pilot: Flores Rausch RPH (Pharmacist) Renal Dosing Monitoring: Duane Vital 70 y.o. male Pharmacy dosing for renal function per Dr. Vivek Dias CREATININE: 8.1 mg/dL ABNORMAL (03/01/16 1024) Estimated creatinine clearance - 9.8 mL/min Will be starting hemodialysis Plan per protocol: No medications need adjustment at this time. Pharmacy will continue to monitor changes in medication orders and renal function and will adjust accordingly. 03/01/2016 4:10 PM Pharmacist: Flores Rausch onver rosie Transaction, Provider Unknown - 03/01/2016 2:45 PM PDT Progress Notes by Sandra Bliss RN at 03/01/16 1445 Author: Sandra Bliss RN Service: (none) Author Type: Registered Nurse Filed: 03/01/16 1634 Date of Service: 03/01/16 1445 Status: Signed Line Pilot: Sandra Bliss RN (Registered Nurse) Attempted orthostatic bp's per order from dr Jay; pt sleepy, but arousable, junctional rhyt hm in 40; pt got nauseated and dizzy sitting up at bedside; hr dropped to 37; pt backlying d own on stretcher. Dr Jay called. Dr Dias to call hospitalist for consult. Pt to stay the nigh t for observation and workup on 4th floor onver rosie Transaction, Provider Unknown - 03/01/2016 1:49 PM PDT Nurse Progress Note by Aileen Armas RN at 03/01/16 1349 Author: Aileen Armas RN Service: Urology Author Type: Registered Nurse Filed: 03/01/16 1350 Date of Service: 03/01/16 1349 Status: Signed Line Pilot: Aileen Armas RN (Registered Nurse) Spoke with Dr Jay regarding pt's junctional rhythm and blood pressure. Patient is ok to go to phase two onver rosie Transaction, Provider Unknown - 03/01/2016 11:45 AM PDT Nurse Progress Note by Jen Mast RN at 03/01/16 1145 Author: Jen Mast RN Service: (none) Author Type: Registered Nurse Filed: 03/01/16 1146 Date of Service: 03/01/16 1145 Status: Signed Line Pilot: Jen Mast RN (Registered Nurse) Pt provided with warm blanket by CNA. Amaya in the OR called out stating Dr. Jay wants type and screen ordered. Lab ordered placed. Lab in dept and went into his room to draw. Stefany Mast RN 03/01/2016 11:46 AM docume nted in this encounter H&P Notes Dorene Gorman MD - 03/01/2016 3:47 PM PDTFormatting of this note might be different fro m the original. H&P by Dorene Gorman MD at 03/01/16 6447 Author: Dorene Gorman MD Service: Hospitalist Author Type: Physician Filed: 03/01/16 8009 Date of Service: 03/01/16 1547 Status: Signed Line Pilot: Dorene Gorman MD (Physician) [facility] Service: Hospitalist Admission History & Physical Pt: Duane Vital AGE/SEX: 70 y.o. male ROOM: PACU Pool Room/PACU Pool* PCP: STAR HARRIS : 1945 TODAY'S DATE: 03/01/2016 Date of Admission: 03/01/2016 Chief Complaint: Bradycardia post operatively. History of Present Illness: The patient is a 70 y.o. male with significant past medical history of Aortic stenosis, re nal failure, obesity, htn, CAD who presents with bradycardia and hypotension in the postoper ative setting after AV fistula placed in the LUE. He did get all of his oral home medication s preoperatively, including the carvedilol 25mg. He has been NPO since late last night and h ad symptomatic lightheadedness that has progressed since the procedure. The anesthesiologist was Ren Jay Jr, MD, who I spoke to during my evaluation. Mr. Philly pat had bradycardia present on admission, which Dr. Jay attributed to adequate beta blockade from carvedilolol. The procedure was performed without incident with a modest amount of pain medication and benzo use, please see the medication admin tab for complete details. He was given ephedrine and his blood pressure and heart rate responded with an increase in both par ameters, though the heart rate did not increase more than 10 beats per minute. He was given an additional 500cc bolus of normal saline and this immediately reduced sensation of dizzine ss and nausea. He had no sensation of fullness of the bladder and typically does still make urine. Electrolytes prior to the procedure were reviewed and showed a cr of 8, but the potas sium was wnl. Mr. Vital has been under the care of Automotive Services Manager Dr. Germain in [place], who I spoke to. He is accompanied by his today who assists with the history. 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 Esophagogastroduodenoscopy N/A 01/18/2014 Procedure: ESOPHAGOGASTRODUODENOSCOPY; Surgeon: Caitlyn Khan MD; Location: [facility]; Service: Gastroenterology; Laterality: N/A; Prior To admission Meds: Prior to Admission medications Medication Sig Start Date End Date Taking? Authorizing Provider amlodipine (NORVASC) 10 MG tablet Take 5 mg by mouth daily. Yes Historical Provider aspirin 81 MG tablet Take 81 mg by mouth daily. Yes Historical Provider atorvastatin (LIPITOR) 40 MG tablet Take 40 mg by mouth nightly. Yes Historical Provider carvedilol (COREG) 25 MG tablet Take 25 mg by mouth 2 (two) times daily with meals. 06/28/13 Yes Jeanmarie Ly MD Cholecalciferol (VITAMIN D PO) Take 10,000 Int'l Units by mouth every evening. Yes Histor ical Provider furosemide (LASIX) 20 MG tablet Take 40 mg by mouth daily. Two tablets daily. Yes Histori mandy Provider hydrALAZINE (APRESOLINE) 10 MG tablet Take 1 tablet by mouth 3 (three) times daily. 10/20/15 Yes EDSON Rosenberg insulin glargine (TOUJEO) 300 UNIT/ML injection Inject 60 Units into the skin every morning . Yes Historical Provider losartan (COZAAR) 50 MG tablet Take 50 mg by mouth daily. Yes Historical Provider sevelamer (RENVELA) 800 MG tablet Take 1 tablet by mouth 3 (three) times daily with meals. During meals. 01/30/16 01/29/17 Yes EDSON Rosenberg sitagliptan (JANUVIA) 100 MG tablet Take 50 mg by mouth daily. Yes Historical Provider sodium bicarbonate 650 MG tablet Take 1 tablet by mouth 4 (four) times daily. 01/30/16 Yes EDSON Rosenberg terazosin (HYTRIN) 5 MG capsule Take 10 mg by mouth nightly. Yes Historical Provider glucose blood test strip 1 each by Other route as needed. Use as instructed Historical P bryan HYDROcodone-acetaminophen (NORCO) 5-325 MG per tablet Take 1-2 tablets by mouth every 6 (si x) hours as needed for Pain. 03/01/16 03/11/16 Vivek Dias MD Medications scheduled: ephedrine lidocaine buffered 1% 0.5 mL Intradermal Once sodium chloride (bolus) 500 mL Intravenous Once Allergies: Allergies Allergen Reactions Penicillins Other (See Comments) Gemfibrozil Nausea and Vomiting Questran [Cholestyramine] Nausea and Vomiting Immunization: Family Hx: Family History Problem Relation Age of Onset Cancer Mother Heart disease Father Saida parker Neg Hx Social Hx: Social History Substance Use Topics Smoking status: Never Smoker Smokeless tobacco: Never Used Alcohol Use: No Active CoMorbidities: Active comorbid conditions include: - hypertension - renal disease, CKD (Stage 5) - obesity due to excess calories - anemia - CAD - hypertensive cardiomyopathy - valvular problems/murmurs - PVD - sleep apnea - diabetes (type 2 with complications,) - past history of TIA - CVA Patient is negative for: a smoker, COPD Review of Symptoms: Constitutional: Negative for fever, chills, diaphoresis, activity change, appetite change, fatigue and unexpected weight change. He has had slight slurring of speech after benzodiazep ine use HENT: Negative for hearing loss, ear pain, nosebleeds, congestion, facial swelling, rhinorr hea, neck pain, neck stiffness, dental problem, tinnitus and ear discharge. Eyes: Negative for photophobia, pain, discharge, redness, itching and visual disturbance. Respiratory: Negative for apnea, cough, chest tightness, shortness of breath and wheezing. Cardiovascular: Negative for chest pain, palpitations and leg swelling. Gastrointestinal: Negative for nausea, vomiting, abdominal pain, diarrhea, constipation, bl ood in stool, abdominal distention, anal bleeding and rectal pain. Genitourinary: Negative for dysuria, frequency, hematuria, flank pain, difficulty urinating and dyspareunia. Musculoskeletal: Negative for back pain, joint swelling, arthralgias and gait problem. Skin: Negative for rash and wound. Neurological: see hpi Hematological: Negative for adenopathy. Does not bruise/bleed easily. Psychiatric/Behavioral: Negative for suicidal ideas, hallucinations, behavioral problems, c onfusion and agitation. Objective: Vital Signs: BP 97/51 mmHg | Pulse 44 | Temp(Src) 96.8 F (36 C) (Temporal) | Resp 23 | Ht 1.753 m (5 ' 9") | Wt 100.2 kg (220 lb 14.4 oz) | BMI 32.61 kg/m2 | SpO2 96% Physical Exam: Constitutional: Oriented to person, place, and time. Appears well-developed and well-nouris hed. Pale. Good historian. HEENT: Head: Normocephalic and atraumatic. Nose: Nose normal, no erythema, edema or bleeding. Mouth/Throat: Oropharynx is clear and no exudates. Oral mucous membranes are dry. Eyes: Conjunctivae are clear and EOM are normal. Pupils are equal, round, and reactive to l ight. Right eye exhibits no discharge. Left eye exhibits no discharge. No scleral icterus. Neck: Normal range of motion. Neck supple. No JVD present. No tracheal deviation present. N o thyromegaly present. There is no cervical adenopathy. Cardiovascular: decreased rate, regular rhythm, Harsh and loud systolic murmur, heard throu ghout the precordium and in the L mid axillary line. Exam reveals no gallop and no friction rub. L Radial pulse is difficult to palpate, and R radial pulse is almost not present. Ped al pulses are faint and symmetric. Pulmonary/Chest: Effort normal and breath sounds are decreased, examined in the partially s upine position due to symptomatic hypotension when upright. No stridor. No respiratory distr ess, no wheezes, no rales. Exhibits no tenderness. Abdominal: Soft. Bowel sounds are normal. Exhibits no distension and no mass. There is no t enderness. There is no rebound and no guarding. Extremities/Musculoskeletal: Normal range of motion. Exhibits no tenderness, no edema. Neurologic: Alert and oriented to person, place, and time. Has normal reflexes. No cranial nerve deficit. Exhibits normal muscle tone. Coordination normal. Skin: Skin is warm and dry. No rash noted, no erythema, no pallor. Psychiatric: Has a normal mood and affect. Behavior and judgment are appropriate. Data: Recent Labs Lab 03/01/16 1024 WBC 6.17 HGB 8.9* HCT 26.7* PLT 138* NEUTOPHILPCT 66.32 MONOPCT 10.29 Recent Labs Lab 03/01/16 1024 NA 142 K 4.3 CL 108 CO2 22* BUN 58* CREATININE 8.1* Phosphorus: Lab Results Component Value Date PHOS 5.0 11/20/2015 Invalid input(s): LABALBU No results for input(s): MG in the last 168 hours. No results for input(s): AMYLASE in the last 168 hours. No results for input(s): PHART, PO2ART, QFE0UTE, J6YIZARP, BEART in the last 168 hours. No results for input(s): APTT, INR, PTT in the last 168 hours. No results for input(s): TSH, T3FREE, FREET4 in the last 168 hours. No results for input(s): CKTOTAL, TROPONINI, TROPONINT, CKMBINDEX in the last 168 hours. EKG: personally reviewed by me and shows small p waves, bradycardia in the 40's, wide qrs b ut regular rhythm. Chest X-Ray: Not done US of the LUE 1. A brachiocephalic fistula may be the best choice, as the basilic vein has a low insertio n point and there is a stenosis of the distal radial artery Left hand dominant patient Would correlate with individual surgical protocol for this individual patient Problem List: Principal Problem: Bradycardia Active Problems: Type 2 diabetes mellitus with diabetic nephropathy (HCC) Essential hypertension, benign Diabetic nephropathy (HCC) Dyslipidemia Obesity Proteinuria Iron deficiency Anemia of chronic renal failure, stage 5 (HCC) Aortic stenosis Chronic kidney disease, stage V (HCC) Assessment and Plan: Bradycardia: multifactorial from taking medications while NPO, dehydration in the setting o f severe and preload dependence, persistent effects of IV narcotics for conscious sedatio n. He had virtually no urine as noted by bladder scan, and improved immediately with a small dose of IV fluids. - Admit to observation overnight - continuous pulse ox and tele - pacer pads and atropine at the bed side - continue IV fluids at 110cc/hr overnight and while NPO - continue NPO status for now to evaluate the persistence of the bradycardia. - hold hypertension and cardiac meds and plan to restart in the morning. Patient's old records and labs were reviewed in detail. Discussed with Dr. Germain, Mr. Vital's outpatient Automotive Services Manager. He recommended overnight o bservation as we are doing and to call the insulation estimator Automotive Services Manager if bradycardia persists and he requires pacemaker placement. Anemia and thrombocytopenia: - chronic and stable. These are consistent with bone marrow suppression in the setting of c hronic disease. - observation for now CAD/HTN - holding oral medications at this time until symptomatic hypotension has resolved - initial set of cardiac enzymes were normal and the EKG was reassuring that there are no n ew changes suggestive of new ischemia. Aortic Stenosis: The hypotension is likely exacerbated by severe and dependence of the h eart on preload to maintain blood pressure -continue iv fluids overnight. Nausea: secondary to hypovolemia, exacerbated by narcotic analgesia - iv fluids, npo - avoid ondansetron due to bradycardia - promethazine if needed DM: Sliding scale insulin for now - restart home regimen in the am Diet: NPO status for now. If heart rate continues to improve, then will plan restart diet l ater this evening. DVT prophy: - compression stockings and heparin 5000 iu q8, start in am if needed. Code Status: Prior Primary Care Physician: STAR HARRIS I explained the plan of care and management to the patient and explained that my colleague from the hospitalist service will continue his care. Patient verbalized understanding and ag reement with plan of care and did not have any more questions for me at the end of our inter action. More than 72 minutes was spent face to face in examination, explaining the plan of c are and counselling the patient as well as CPOE. Dorene Gomran MD 03/01/2016 3:48 PM Marcella Hernandez ARN P - 03/01/2016 11:29 AM PDT H&P by EDSON Westbrook at 03/01/16 1129 Author: EDSON Westbrook Service: Vascular Surgery Author Type: Advanced Registered N paris Practitioner Filed: 03/01/16 1214 Date of Service: 03/01/16 1129 Status: Addendum Line Pilot: EDSON Westbrook (Advanced Registered Nurse Juan David) Related Notes: Original Note by EDSON Westbrook (Advanced Registered Nurse Ismael medina) filed at 03/01/16 1130 [facility] Service: Vascular Surgery Pre-Operative History & Physical DIAGNOSIS: CKD INDICATION: SAME PROCEDURE: Right arm fistula creation CHIEF COMPLAINT: Worsening renal function History Obtained From: patient HISTORY OF PRESENT ILLNESS The patient is a 70 y.o. male with significant past medical history of HTN, hyperlipidemia , , DM, CVA, and CKD who presents with worsening renal function. Nephrology has requested fistula creation. We have discussed this with patient and he would like to proceed. REVIEW OF SYSTEMS Negative except for pertinent items noted in HPI. Past Medical History Diagnosis Date Hypertension Hyperlipidemia Diabetes mellitus, type 2 (HCC) TIA (transient ischemic attack) 2010 Heart murmur Stroke (HCC) surface stroke Sleep apnea dx light apnea Chronic kidney disease Anemia of chronic renal failure 01/24/2012 Acute upper GI bleed 01/18/2014 Past Surgical History Procedure Laterality Date Colonoscopy Cataract extraction 2004? Esophagogastroduodenoscopy N/A 01/18/2014 Procedure: ESOPHAGOGASTRODUODENOSCOPY; Surgeon: Caitlyn Khan MD; Location: [facility]; Service: Gastroenterology; Laterality: N/A; Allergies Allergen Reactions Penicillins Other (See Comments) Gemfibrozil Nausea and Vomiting Questran [Cholestyramine] Nausea and Vomiting No current facility-administered medications on file prior to encounter. Current Outpatient Prescriptions on File Prior to Encounter Medication Sig Dispense Refill amlodipine (NORVASC) 10 MG tablet Take 5 mg by mouth daily. aspirin 81 MG tablet Take 81 mg by mouth daily. atorvastatin (LIPITOR) 40 MG tablet Take 40 mg by mouth nightly. carvedilol (COREG) 25 MG tablet Take 25 mg by mouth 2 (two) times daily with meals. Cholecalciferol (VITAMIN D PO) Take 10,000 Int'l Units by mouth every evening. furosemide (LASIX) 20 MG tablet Take 40 mg by mouth daily. Two tablets daily. glucose blood test strip 1 each by Other route as needed. Use as instructed hydrALAZINE (APRESOLINE) 10 MG tablet Take 1 tablet by mouth 3 (three) times daily. 84 tablet 3 insulin glargine (TOUJEO) 300 UNIT/ML injection Inject 42 Units into the skin every mor ankur. losartan (COZAAR) 25 MG tablet Take 1 tablet by mouth 2 (two) times daily. (Patient thor ing differently: Take 50 mg by mouth daily.) 60 tablet 11 sevelamer (RENVELA) 800 MG tablet Take 1 tablet by mouth 3 (three) times daily with joan ls. During meals. 180 tablet 11 sitagliptan (JANUVIA) 100 MG tablet Take 50 mg by mouth daily. sodium bicarbonate 650 MG tablet Take 1 tablet by mouth 4 (four) times daily. 120 table t 11 terazosin (HYTRIN) 5 MG capsule Take 10 mg by mouth nightly. Family History Problem Relation Age of Onset Cancer Mother Heart disease Father Social History Social History Marital Status: Spouse Name: N/A Number of Children: 2 Years of Education: N/A Occupational History retired Social History Main Topics Smoking status: Never Smoker Smokeless tobacco: Never Used Alcohol Use: No Drug Use: No Sexual Activity: Partners: Female Control/ Protection: Abstinence Other Topics Concern Not on file Social History Narrative Lives in [facility], independent with activities of daily living, no falls, full co de. PHYSICAL EXAM Vital Signs: There were no vitals taken for this visit. Vitals reviewed. Constitutional: Patient appears well-developed and well-nourished. HENT: Head: Normocephalic and atraumatic. Mouth/Throat: Oropharynx is clear and moist. Cardiovascular: Normal rate and regular rhythm. Murmur noted Pulmonary/Chest: Effort normal and breath sounds normal. Abdominal: Soft. Bowel sounds are normal. Musculoskeletal: Normal range of motion. Neurological: Patient is alert and oriented to person, place, and time. Skin: Skin is warm and dry. Vascular: Palp radial and brachial pulses DATA CBC: Lab Results Component Value Date WBC 6.9 01/25/2014 RBC 3.39 01/25/2014 HGB 10.1* 01/23/2016 HGB 9.9* 08/28/2015 HCT 30.6* 01/23/2016 MCV 91.9 01/25/2014 MCH 30 01/25/2014 MCHC 33 01/25/2014 RDW 49.0 01/20/2014 PLT 212 01/25/2014 MPV 8.2 01/20/2014 DIFFTYPE AUTOMATED 01/20/2014 BMP: Lab Results Component Value Date NA 139 01/29/2016 K 4.3 01/29/2016 CL 106 01/29/2016 CO2 18* 01/29/2016 ANIONGAP 19.3 01/29/2016 GLUF 135* 01/29/2016 BUN 65* 01/29/2016 CREATININE 7.30* 01/29/2016 CREATININE 5.79* 11/22/2015 BCR 8.9 01/29/2016 CA 9.3 01/29/2016 CA 9.7 09/11/2015 EGFR 7 01/29/2016 PROBLEM LIST Patient Active Problem List Diagnosis Type 2 diabetes mellitus with diabetic nephropathy (HCC) Essential hypertension, benign Diabetic retinopathy (HCC) Diabetic nephropathy (HCC) Stroke (HCC) Dyslipidemia Obesity Proteinuria Vitamin D deficiency Iron deficiency Anemia of chronic renal failure, stage 5 (HCC) Elevated ferritin level Diarrhea Loss of appetite Loss of weight Metabolic acidosis Acute upper GI bleed Acute posthemorrhagic anemia Melena Hematemesis Murmur, cardiac Moderate aortic stenosis Aortic stenosis Chronic kidney disease, stage V (HCC) Hyperphosphatemia ASSESSMENT & PLAN 1. Patient is a 70 y.o. male with above specified procedure planned. 2. Procedure options, risks, benefits and alternatives reviewed with patient who express( es) understanding. Any and all questions were answered to their satisfaction. Primary Care Physician: EDSON Richardson 02/29/2016 *CORE MEASURES REMINDER: If the patient has a known or suspected infection prior to surger y, please add diagnosis to the problem list (consider: Infection 136.9). documented in this encounter Miscellaneous Notes Op Note - Vivek Dias MD - 03/01/2016 12:55 PM PDTFormatting of this note might be differen t from the original. Op Note by Vivek Dias MD at 03/01/16 125 Author: Vivek Dias MD Service: Vascular Surgery Author Type: Physician Filed: 03/01/16 1257 Date of Service: 03/01/16 1251 Status: Signed Line Pilot: Vivek Dias MD (Physician) [facility] Service: Vascular Surgery Operative Note Pre-operative Diagnosis: CKD and need for alf dialysis access Post-operative Diagnosis: Same Procedure(s): Right brachiocephalic fistula creation Surgeon: Vivek Dias MD Dairy Technologist(s): EDSON Westbrook Anesthesia: Monitor Anesthesia Care and Local anesthesia Estimated Blood Loss: Less Than 50 ml Other: IV Fluids: 350 ml Indications: See pre-operative history and physical. Findings: Right arm cephalic vein sclerotic. After anastomosis, good thrill in fistula. Dopplerable radial and ulnar signals. Complications: None apparent Description of Procedure: Patient was properly identified and brought to the operating eddie m where patient was placed supine on the operating table and patient underwent Monitor Anest hesia Care and Local anesthesia. Patient's right arm was then prepped and draped in the usua l sterile fashion. Local anesthetic was then given to the antecubital fossa and a transverse incision was then made. First the cephalic vein was identified and branches of the cephalic vein were ligated with 3-0 silk sutures and divided. Next, the brachial artery was also marcelo ntified and dissected. Patient was then given 3000 units of IV heparin. After 3 minutes an e nd-to-side anastomosis was created with the cephalic vein onto the brachial artery using 6-0 Prolene sutures in a running fashion. After completion of the anastomosis, there was a stro ng thrill in the fistula. The patient had a doppler signal of the radial artery at the end o f the case. The wound was then irrigated and hemostasis was then assured. The deep dermal t issue was then closed with 3-0 Vicryl and the skin was then closed with 4-0 Monocryl in a katz bcuticular fashion. Mastisol and Steri-Strip closures were then placed and a sterile dressin g was then applied. At the end of the case, sponge, needle, and instrument counts were corre ct x2. There were no apparent complications. Condition: Stable Vivek Dias MD 03/01/2016 documented in this encoun ter Plan of Treatment Not on filedocumented as of this encounter Procedures + +--------+ + + + | Procedure Name | Priori | Date/Time | Associated Diagnosis | Comments | | | ty | | | | + +--------+ + + + | POC GLUCOSE | Routin | 03/02/2016 | | Results for this | | | e | 11:40 AM | | procedure are in the | | | | PDT | | results section. | + +--------+ + + + | POC GLUCOSE | Routin | 03/02/2016 | | Results for this | | | e | 6:58 AM | | procedure are in the | | | | PDT | | results section. | + +--------+ + + + | POC GLUCOSE | Routin | 03/02/2016 | | Results for this | | | e | 6:21 AM | | procedure are in the | | | | PDT | | results section. | + +--------+ + + + | POC GLUCOSE | Routin | 03/02/2016 | | Results for this | | | e | 5:57 AM | | procedure are in the | | | | PDT | | results section. | + +--------+ + + + | POC GLUCOSE | Routin | 03/02/2016 | | Results for this | | | e | 5:31 AM | | procedure are in the | | | | PDT | | results section. | + +--------+ + + + | EXTERNAL LAB: CBC | Routin | 03/02/2016 | | Results for this | | | e | 4:20 AM | | procedure are in the | | | | PDT | | results section. | + +--------+ + + + | PHOSPHORUS | Routin | 03/02/2016 | | Results for this | | | e | 4:20 AM | | procedure are in the | | | | PDT | | results section. | + +--------+ + + + | MAGNESIUM | Routin | 03/02/2016 | | Results for this | | | e | 4:20 AM | | procedure are in the | | | | PDT | | results section. | + +--------+ + + + | COMPREHENSIVE | Routin | 03/02/2016 | | Results for this | | METABOLIC PANEL | e | 4:20 AM | | procedure are in the | | | | PDT | | results section. | + +--------+ + + + | TROPONIN I | Routin | 03/02/2016 | | Results for this | | | e | 12:16 AM | | procedure are in the | | | | PDT | | results section. | + +--------+ + + + | CK-MB | Routin | 03/02/2016 | | Results for this | | | e | 12:16 AM | | procedure are in the | | | | PDT | | results section. | + +--------+ + + + | CK TOTAL | Routin | 03/02/2016 | | Results for this | | | e | 12:16 AM | | procedure are in the | | | | PDT | | results section. | + +--------+ + + + | POC GLUCOSE | Routin | 03/01/2016 | | Results for this | | | e | 9:23 PM | | procedure are in the | | | | PDT | | results section. | + +--------+ + + + | TROPONIN I | Routin | 03/01/2016 | | Results for this | | | e | 6:09 PM | | procedure are in the | | | | PDT | | results section. | + +--------+ + + + | CK-MB | Routin | 03/01/2016 | | Results for this | | | e | 6:09 PM | | procedure are in the | | | | PDT | | results section. | + +--------+ + + + | CK TOTAL | Routin | 03/01/2016 | | Results for this | | | e | 6:09 PM | | procedure are in the | | | | PDT | | results section. | + +--------+ + + + | POC GLUCOSE | Routin | 03/01/2016 | | Results for this | | | e | 5:29 PM | | procedure are in the | | | | PDT | | results section. | + +--------+ + + + | TROPONIN I | Routin | 03/01/2016 | | Results for this | | | e | 3:11 PM | | procedure are in the | | | | PDT | | results section. | + +--------+ + + + | CK-MB | Routin | 03/01/2016 | | Results for this | | | e | 3:11 PM | | procedure are in the | | | | PDT | | results section. | + +--------+ + + + | CK TOTAL | Routin | 03/01/2016 | | Results for this | | | e | 3:11 PM | | procedure are in the | | | | PDT | | results section. | + +--------+ + + + | ECG 12 LEAD | Routin | 03/01/2016 | | Results for this | | | e | 3:02 PM | | procedure are in the | | | | PDT | | results section. | + +--------+ + + + | POC GLUCOSE | Routin | 03/01/2016 | | Results for this | | | e | 1:15 PM | | procedure are in the | | | | PDT | | results section. | + +--------+ + + + | TYPE AND SCREEN | Routin | 03/01/2016 | | Results for this | | | e | 11:50 AM | | procedure are in the | | | | PDT | | results section. | + +--------+ + + + | EXTERNAL LAB: CBC | Routin | 03/01/2016 | | Results for this | | | e | 10:24 AM | | procedure are in the | | | | PDT | | results section. | + +--------+ + + + | BASIC METABOLIC | Routin | 03/01/2016 | | Results for this | | PANEL | e | 10:24 AM | | procedure are in the | | | | PDT | | results section. | + +--------+ + + + | POC GLUCOSE | Routin | 03/01/2016 | | Results for this | | | e | 10:21 AM | | procedure are in the | | | | PDT | | results section. | + +--------+ + + + documented in this encounter Results POC Glucose (03/02/2016 11:40 AM PDT) + + + + + + | Component | Value | Ref Range | Performed | Pathologist | | | | | At | Signature | + + + + + + | Glucose, | 113 (H)Comment: Testing | 65 - 99 mg/dL | EXTERNAL | | | Fingerstick | performed at [facility];[address] | | LAB | | | | [address];[place] | | | | | | [address] | | | | + + + + + + + + | Specimen | + + | | + + + +---------+ + + | Performing | Address | City/State/Zipcode | Phone Number | | Organization | | | | + +---------+ + + | EXTERNAL LAB | | | | + +---------+ + + POC Glucose (03/02/2016 6:58 AM PDT) + + + + + + | Component | Value | Ref Range | Performed | Pathologist | | | | | At | Signature | + + + + + + | Glucose, | 74Comment: Testing | 65 - 99 mg/dL | EXTERNAL | | | Fingerstick | performed at [facility];[address] | | LAB | | | | [address];[place], [place] | | | | | | [address] | | | | + + + + + + + + | Specimen | + + | | + + + +---------+ + + | Performing | Address | City/State/Zipcode | Phone Number | | Organization | | | | + +---------+ + + | EXTERNAL LAB | | | | + +---------+ + + POC Glucose (03/02/2016 6:21 AM PDT) + + + + + + | Component | Value | Ref Range | Performed | Pathologist | | | | | At | Signature | + + + + + + | Glucose, | 61 (L)Comment: Testing | 65 - 99 mg/dL | EXTERNAL | | | Fingerstick | performed at [facility];[address] | | LAB | | | | [place] | | | | | | [address] | | | | + + + + + + + + | Specimen | + + | | + + + +---------+ + + | Performing | Address | City/State/Zipcode | Phone Number | | Organization | | | | + +---------+ + + | EXTERNAL LAB | | | | + +---------+ + + POC Glucose (03/02/2016 5:57 AM PDT) + + + + + + | Component | Value | Ref Range | Performed | Pathologist | | | | | At | Signature | + + + + + + | Glucose, | 68Comment: Testing | 65 - 99 mg/dL | EXTERNAL | | | Fingerstick | performed at [facility];[address] | | LAB | | | | [address];[place], [place] | | | | | | [address] | | | | + + + + + + + + | Specimen | + + | | + + + +---------+ + + | Performing | Address | City/State/Zipcode | Phone Number | | Organization | | | | + +---------+ + + | EXTERNAL LAB | | | | + +---------+ + + POC Glucose (03/02/2016 5:31 AM PDT) + + + + + + | Component | Value | Ref Range | Performed | Pathologist | | | | | At | Signature | + + + + + + | Glucose, | 66Comment: Testing | 65 - 99 mg/dL | EXTERNAL | | | Fingerstick | performed at [facility];[address] | | LAB | | | | [address];[place] | | | | | | [address] | | | | + + + + + + + + | Specimen | + + | | + + + +---------+ + + | Performing | Address | City/State/Zipcode | Phone Number | | Organization | | | | + +---------+ + + | EXTERNAL LAB | | | | + +---------+ + + External Lab: CBC (03/02/2016 4:20 AM PDT) + + + + + + | Component | Value | Ref Range | Performed | Pathologist | | | | | At | Signature | + + + + + + | WBC | 6.99Comment: Testing | 3.80 - 11.00 | EXTERNAL | | | | performed at [facility], [address] | K/uL | LAB | | | | [address], | | | | | | [place] [address] | | | | + + + + + + | Non- | 2.88 (L)Comment: Testing | 4.20 - 5.70 | EXTERNAL | | | Red Blood | performed at [facility], [address] | M/uL | LAB | | | Cells | [address], | | | | | Counted | [place] [address] | | | | + + + + + + | Hemoglobin | 8.3 (L)Comment: Testing | 13.2 - 17.0 | EXTERNAL | | | | performed at [facility], [address] | g/dL | LAB | | | | [address], | | | | | | [place] [address] | | | | + + + + + + | Hematocrit, | 24.4 (L)Comment: Testing | 39.0 - 50.0 % | EXTERNAL | | | POC | performed at [facility], [address] | | LAB | | | | [address], | | | | | | [place] [address] | | | | + + + + + + | MCV | 84.8Comment: Testing | 80.0 - 100.0 fl | EXTERNAL | | | | performed at [facility], [address] | | LAB | | | | [address], | | | | | | [place] [address] | | | | + + + + + + | MCH | 28.8Comment: Testing | 27.0 - 34.0 pg | EXTERNAL | | | | performed at [facility], [address] | | LAB | | | | [address], | | | | | | [place] [address] | | | | + + + + + + | MCHC | 34.0Comment: Testing | 32.0 - 35.5 | EXTERNAL | | | | performed at [facility], [address] | g/dL | LAB | | | | [address], | | | | | | [place] [address] | | | | + + + + + + | RDW-CV | 43.8Comment: Testing | 37 - 53 fl | EXTERNAL | | | | performed at [facility], [address] | | LAB | | | | [address], | | | | | | [place] [address] | | | | + + + + + + | Platelet | 131 (L)Comment: Testing | 150 - 400 K/uL | EXTERNAL | | | Count | performed at [facility], [address] | | LAB | | | Plasma | [address], | | | | | | [place] [address] | | | | + + + + + + | MPV | 9.9Comment: Testing | fl | EXTERNAL | | | | performed at [facility], [address] | | LAB | | | | [address], | | | | | | [place] [address] | | | | + + + + + + | Differentia | AUTOMATEDComment: | | EXTERNAL | | | l Type | Testing performed at | | LAB | | | | [facility], [address] | | | | | | [place] | | | | | | [address] | | | | + + + + + + | % Segmented | 71.67Comment: Testing | % | EXTERNAL | | | | performed at [facility], [address] | | LAB | | | Neutrophils | [address], | | | | | | [place] [address] | | | | + + + + + + | % | 15.69Comment: Testing | % | EXTERNAL | | | Lymphocytes | performed at [facility], [address] | | LAB | | | | [address], | | | | | | [place] [address] | | | | + + + + + + | % Monocytes | 10.26Comment: Testing | % | EXTERNAL | | | | performed at [facility], [address] | | LAB | | | | [address], | | | | | | [place] [address] | | | | + + + + + + | % | 1.46Comment: Testing | % | EXTERNAL | | | Eosinophils | performed at [facility], [address] | | LAB | | | | [address], | | | | | | [place] [address] | | | | + + + + + + | % Basophils | 0.92Comment: Testing | % | EXTERNAL | | | | performed at [facility], [address] | | LAB | | | | [address], | | | | | | [place] [address] | | | | + + + + + + | Absolute | 5.01Comment: Testing | 1.90 - 7.40 | EXTERNAL | | | Segmented | performed at [facility], [address] | K/uL | LAB | | | Neutrophils | [address], | | | | | | [place] [address] | | | | + + + + + + | Absolute | 1.10Comment: Testing | 1.00 - 3.90 | EXTERNAL | | | Lymphocytes | performed at [facility], [address] | K/uL | LAB | | | | [address], | | | | | | [place] [address] | | | | + + + + + + | Absolute | 0.72Comment: Testing | 0.00 - 0.80 | EXTERNAL | | | Monocytes | performed at [facility], [address] | K/uL | LAB | | | | [address], | | | | | | [place] [address] | | | | + + + + + + | Absolute | 0.10Comment: Testing | 0.00 - 0.50 | EXTERNAL | | | Eosinophils | performed at [facility], [address] | K/uL | LAB | | | | [address], | | | | | | [place] [address] | | | | + + + + + + | Absolute | 0.06Comment: Testing | 0.00 - 0.10 | EXTERNAL | | | Basophils | performed at [facility], [address] | K/uL | LAB | | | | [address], | | | | | | [place] [address] | | | | + + + + + + + + | Specimen | + + | Blood specimen | | (specimen) | + + + +---------+ + + | Performing | Address | City/State/Zipcode | Phone Number | | Organization | | | | + +---------+ + + | EXTERNAL LAB | | | | + +---------+ + + Phosphorus (03/02/2016 4:20 AM PDT) + + + + + + | Component | Value | Ref Range | Performed | Pathologist | | | | | At | Signature | + + + + + + | PHOSPHORUS | 6.8 (H)Comment: Testing | 2.3 - 4.8 mg/dL | EXTERNAL | | | | performed at [facility], [address] | | LAB | | | | [address], | | | | | | [place] [address] | | | | + + + + + + + + | Specimen | + + | Blood specimen | | (specimen) | + + + +---------+ + + | Performing | Address | City/State/Zipcode | Phone Number | | Organization | | | | + +---------+ + + | EXTERNAL LAB | | | | + +---------+ + + Magnesium (03/02/2016 4:20 AM PDT) + + + + + + | Component | Value | Ref Range | Performed | Pathologist | | | | | At | Signature | + + + + + + | Magnesium | 2.3Comment: Testing | 1.7 - 2.4 mg/dL | EXTERNAL | | | | performed at [facility], [address] | | LAB | | | | [address], | | | | | | [place] [address] | | | | + + + + + + + + | Specimen | + + | Blood specimen | | (specimen) | + + + +---------+ + + | Performing | Address | City/State/Zipcode | Phone Number | | Organization | | | | + +---------+ + + | EXTERNAL LAB | | | | + +---------+ + + Comprehensive Metabolic Panel (03/02/2016 4:20 AM PDT) + + + + + + | Component | Value | Ref Range | Performed | Pathologist | | | | | At | Signature | + + + + + + | Na | 143Comment: Testing | 135 - 145 | EXTERNAL | | | | performed at [facility], [address] | mmol/L | LAB | | | | [address], | | | | | | [place] [address] | | | | + + + + + + | K | 4.1Comment: Testing | 3.5 - 4.9 | EXTERNAL | | | | performed at [facility], [address] | mmol/L | LAB | | | | [address], | | | | | | [place] [address] | | | | + + + + + + | Cl | 109Comment: Testing | 99 - 109 mmol/L | EXTERNAL | | | | performed at [facility], [address] | | LAB | | | | [address], | | | | | | [place] [address] | | | | + + + + + + | CO2 | 23Comment: Testing | 23 - 32 mmol/L | EXTERNAL | | | | performed at [facility], [address] | | LAB | | | | [address], | | | | | | [place] [address] | | | | + + + + + + | Anion Gap | 15Comment: Testing | 5 - 20 mmol/L | EXTERNAL | | | | performed at [facility], [address] | | LAB | | | | [address], | | | | | | [place] [address] | | | | + + + + + + | Glucose, | 72Comment: Testing | 65 - 99 mg/dL | EXTERNAL | | | Fasting | performed at [facility], [address] | | LAB | | | | [address], | | | | | | [place] [address] | | | | + + + + + + | BUN | 58 (H)Comment: Testing | 8 - 25 mg/dL | EXTERNAL | | | | performed at [facility], [address] | | LAB | | | | [address], | | | | | | [place] [address] | | | | + + + + + + | Creatinine | 8.2 (H)Comment: Testing | 0.70 - 1.30 | EXTERNAL | | | | performed at [facility], [address] | mg/dL | LAB | | | | [address], | | | | | | [place] [address] | | | | + + + + + + | BUN/Creatin | 7Comment: Testing | | EXTERNAL | | | ine Ratio | performed at [facility], [address] | | LAB | | | | [address], | | | | | | [place] [address] | | | | + + + + + + | Calcium | 8.3 (L)Comment: Testing | 8.5 - 10.5 | EXTERNAL | | | | performed at [facility], [address] | mg/dL | LAB | | | | [address], | | | | | | [place] [address] | | | | + + + + + + | Protein, | 5.7 (L)Comment: Testing | 6.3 - 8.2 g/dL | EXTERNAL | | | Total | performed at [facility], [address] | | LAB | | | | [address], | | | | | | [place] [address] | | | | + + + + + + | Albumin | 2.8 (L)Comment: Testing | 3.3 - 4.8 g/dL | EXTERNAL | | | | performed at [facility], [address] | | LAB | | | | [address], | | | | | | [place] [address] | | | | + + + + + + | Globulin | 2.9Comment: Testing | 1.3 - 4.9 g/dL | EXTERNAL | | | | performed at [facility], [address] | | LAB | | | | [address], | | | | | | [place] [address] | | | | + + + + + + | A/G Ratio | 1.0Comment: Testing | 1.0 - 2.4 | EXTERNAL | | | | performed at [facility], [address] | | LAB | | | | [address], | | | | | | [place] [address] | | | | + + + + + + | Bilirubin | 0.3Comment: Testing | 0.1 - 1.5 mg/dL | EXTERNAL | | | Total | performed at [facility], [address] | | LAB | | | | [address], | | | | | | [place] [address] | | | | + + + + + + | ALP, | 38Comment: Testing | 35 - 115 U/L | EXTERNAL | | | External | performed at [facility], [address] | | LAB | | | | [address], | | | | | | [place] [address] | | | | + + + + + + | AST | 8 (L)Comment: Testing | 10 - 45 U/L | EXTERNAL | | | | performed at [facility], [address] | | LAB | | | | [address], | | | | | | [place] [address] | | | | + + + + + + | ALT | 13Comment: Testing | 10 - 65 U/L | EXTERNAL | | | | performed at [facility], [address] | | LAB | | | | [address], | | | | | | [place] [address] | | | | + + + + + + | Estimated | 7 (L)Comment: GFR <60: | mL/min/1.73m2 | EXTERNAL | | | GFR | CHRONIC KIDNEY DISEASE, | | LAB | | | | IF FOUND OVER A 3 MONTH | | | | | | PERIOD.GFR <15: KIDNEY | | | | | | FAILURE.FOR | | | | | | AMERICANS, MULTIPLY THE | | | | | | CALCULATED GFR BY | | | | | | 1.210.Testing performed | | | | | | at [facility], [address] | | | | | | [facility], | | | | | | [place] [address] | | | | + + + + + + + + | Specimen | + + | Blood specimen | | (specimen) | + + + +---------+ + + | Performing | Address | City/State/Zipcode | Phone Number | | Organization | | | | + +---------+ + + | EXTERNAL LAB | | | | + +---------+ + + CK-MB (03/02/2016 12:16 AM PDT) + + + + + -+ | Component | Value | Ref Range | Performed | Pathologist | | | | | At | Signature | + + + + + -+ | CK-MB | 2.4Comment: Testing | 0.5 - 3.6 ng/mL | EXTERNAL | | | | performed at [facility];[address] | | LAB | | | | [address];[place], [place] | | | | | | [address] | | | | + + + + + -+ | CK-MB Index | 1.9Comment: CK INDEX | | EXTERNAL | | | | INTERPRETATION: | | LAB | | | | MMB ng/mL | | | | | | | | | | | |CK INDEX INTERPRETATION: | | | | | | MMB ng/mL | | | | | | | | | | + + + + + -+ + + | Specimen | + + | | + + + +---------+ + + | Performing | Address | City/State/Zipcode | Phone Number | | Organization | | | | + +---------+ + + | EXTERNAL LAB | | | | + +---------+ + + Troponin I (03/02/2016 12:16 AM PDT) + + + + + + | Component | Value | Ref Range | Performed | Pathologist | | | | | At | Signature | + + + + + + | Troponin I, | 0.021Comment: 0.00 to | 0.00 - 0.10 | EXTERNAL | | | Qual | 0.10 CONSISTENT WITH | ng/mL | LAB | | | | NORMAL POPULATION0.11 to | | | | | | 0.60 CONSISTENT WITH | | | | | | INCREASED RISK FOR | | | | | | ADVERSE OUTCOMES> 0.60 | | | | | | CONSISTENT | | | | | | WITH WHO CRITERIA FOR | | | | | | ACUTE MA Testing | | | | | | performed at [facility] | | | | | | [facility];[place], [place] | | | | | | [address] | | | | + + + + + + + + | Specimen | + + | Blood specimen | | (specimen) | + + + +---------+ + + | Performing | Address | City/State/Zipcode | Phone Number | | Organization | | | | + +---------+ + + | EXTERNAL LAB | | | | + +---------+ + + CK Total (03/02/2016 12:16 AM PDT) + + + + + + | Component | Value | Ref Range | Performed | Pathologist | | | | | At | Signature | + + + + + + | CK, Total | 124Comment: Testing | 55 - 400 U/L | EXTERNAL | | | | performed at [facility];[address] | | LAB | | | | [address];[place], [place] | | | | | | [address] | | | | + + + + + + + + | Specimen | + + | Blood specimen | | (specimen) | + + + +---------+ + + | Performing | Address | City/State/Zipcode | Phone Number | | Organization | | | | + +---------+ + + | EXTERNAL LAB | | | | + +---------+ + + POC Glucose (03/01/2016 9:23 PM PDT) + + + + + + | Component | Value | Ref Range | Performed | Pathologist | | | | | At | Signature | + + + + + + | Glucose, | 127 (H)Comment: Testing | 65 - 99 mg/dL | EXTERNAL | | | Fingerstick | performed at [facility];[address] | | LAB | | | | [address];[place], [place] | | | | | | [address] | | | | + + + + + + + + | Specimen | + + | | + + + +---------+ + + | Performing | Address | City/State/Zipcode | Phone Number | | Organization | | | | + +---------+ + + | EXTERNAL LAB | | | | + +---------+ + + CK-MB (03/01/2016 6:09 PM PDT) + + + + + -+ | Component | Value | Ref Range | Performed | Pathologist | | | | | At | Signature | + + + + + -+ | CK-MB | 2.4Comment: Testing | 0.5 - 3.6 ng/mL | EXTERNAL | | | | performed at [facility];[address] | | LAB | | | | [address];[place], [place] | | | | | | [address] | | | | + + + + + -+ | CK-MB Index | 2.0Comment: CK INDEX | | EXTERNAL | | | | INTERPRETATION: | | LAB | | | | MMB ng/mL | | | | | | | | | | | |CK INDEX INTERPRETATION: | | | | | | MMB ng/mL | | | | | | | | | | + + + + + -+ + + | Specimen | + + | | + + + +---------+ + + | Performing | Address | City/State/Zipcode | Phone Number | | Organization | | | | + +---------+ + + | EXTERNAL LAB | | | | + +---------+ + + Troponin I (03/01/2016 6:09 PM PDT) + + + + + + | Component | Value | Ref Range | Performed | Pathologist | | | | | At | Signature | + + + + + + | Troponin I, | 0.027Comment: 0.00 to | 0.00 - 0.10 | EXTERNAL | | | Qual | 0.10 CONSISTENT WITH | ng/mL | LAB | | | | NORMAL POPULATION0.11 to | | | | | | 0.60 CONSISTENT WITH | | | | | | INCREASED RISK FOR | | | | | | ADVERSE OUTCOMES> 0.60 | | | | | | CONSISTENT | | | | | | WITH WHO CRITERIA FOR | | | | | | ACUTE MA Testing | | | | | | performed at [facility];[address] | | | | | | [address];[place], [place] | | | | | | [address] | | | | + + + + + + + + | Specimen | + + | Blood specimen | | (specimen) | + + + +---------+ + + | Performing | Address | City/State/Zipcode | Phone Number | | Organization | | | | + +---------+ + + | EXTERNAL LAB | | | | + +---------+ + + CK Total (03/01/2016 6:09 PM PDT) + + + + + + | Component | Value | Ref Range | Performed | Pathologist | | | | | At | Signature | + + + + + + | CK, Total | 120Comment: Testing | 55 - 400 U/L | EXTERNAL | | | | performed at [facility];[address] | | LAB | | | | [address];[place], [place] | | | | | | [address] | | | | + + + + + + + + | Specimen | + + | Blood specimen | | (specimen) | + + + +---------+ + + | Performing | Address | City/State/Zipcode | Phone Number | | Organization | | | | + +---------+ + + | EXTERNAL LAB | | | | + +---------+ + + POC Glucose (03/01/2016 5:29 PM PDT) + + + + + + | Component | Value | Ref Range | Performed | Pathologist | | | | | At | Signature | + + + + + + | Glucose, | 111 (H)Comment: Testing | 65 - 99 mg/dL | EXTERNAL | | | Fingerstick | performed at [facility];[address] | | LAB | | | | [address];[place] | | | | | | [address] | | | | + + + + + + + + | Specimen | + + | | + + + +---------+ + + | Performing | Address | City/State/Zipcode | Phone Number | | Organization | | | | + +---------+ + + | EXTERNAL LAB | | | | + +---------+ + + CK-MB (03/01/2016 3:11 PM PDT) + + + + + -+ | Component | Value | Ref Range | Performed | Pathologist | | | | | At | Signature | + + + + + -+ | CK-MB | 2.2Comment: Testing | 0.5 - 3.6 ng/mL | EXTERNAL | | | | performed at [facility];[address] | | LAB | | | | [address];[place], [place] | | | | | | [address] | | | | + + + + + -+ | CK-MB Index | 1.7Comment: CK INDEX | | EXTERNAL | | | | INTERPRETATION: | | LAB | | | | MMB ng/mL | | | | | | | | | | | |CK INDEX INTERPRETATION: | | | | | | MMB ng/mL | | | | | | | | | | + + + + + -+ + + | Specimen | + + | | + + + +---------+ + + | Performing | Address | City/State/Zipcode | Phone Number | | Organization | | | | + +---------+ + + | EXTERNAL LAB | | | | + +---------+ + + Troponin I (03/01/2016 3:11 PM PDT) + + + + + + | Component | Value | Ref Range | Performed | Pathologist | | | | | At | Signature | + + + + + + | Troponin I, | 0.026Comment: 0.00 to | 0.00 - 0.10 | EXTERNAL | | | Qual | 0.10 CONSISTENT WITH | ng/mL | LAB | | | | NORMAL POPULATION0.11 to | | | | | | 0.60 CONSISTENT WITH | | | | | | INCREASED RISK FOR | | | | | | ADVERSE OUTCOMES> 0.60 | | | | | | CONSISTENT | | | | | | WITH WHO CRITERIA FOR | | | | | | ACUTE MA Testing | | | | | | performed at [facility];[address] | | | | | | [facility];[place], [place] | | | | | | [address] | | | | + + + + + + + + | Specimen | + + | Blood specimen | | (specimen) | + + + +---------+ + + | Performing | Address | City/State/Zipcode | Phone Number | | Organization | | | | + +---------+ + + | EXTERNAL LAB | | | | + +---------+ + + CK Total (03/01/2016 3:11 PM PDT) + + + + + + | Component | Value | Ref Range | Performed | Pathologist | | | | | At | Signature | + + + + + + | CK, Total | 128Comment: Testing | 55 - 400 U/L | EXTERNAL | | | | performed at [facility];[address] | | LAB | | | | [address];[place], [place] | | | | | | [address] | | | | + + + + + + + + | Specimen | + + | Blood specimen | | (specimen) | + + + +---------+ + + | Performing | Address | City/State/Zipcode | Phone Number | | Organization | | | | + +---------+ + + | EXTERNAL LAB | | | | + +---------+ + + ECG 12 lead (03/01/2016 3:02 PM PDT) + + + + + + | Component | Value | Ref Range | Performed | Pathologist | | | | | At | Signature | + + + + + + | DIAGNOSIS: | Sinus rhythmProlonged | | EXTERNAL | | | | QTAbnormal ECGNo | | LAB | | | | previous ECGs | | | | | | availableConfirmed by | | | | | | LIANNA CAMEJO ([id number]) on | | | | | | 03/01/2016 9:06:01 PM | | | | + + + + + + + + | Specimen | + + | | + + + + + | Narrative | Performed At | + + + | Historically converted procedure from [facility] | EXTERNAL LAB | + + + + +---------+ + + | Performing | Address | City/State/Zipcode | Phone Number | | Organization | | | | + +---------+ + + | EXTERNAL LAB | | | | + +---------+ + + POC Glucose (03/01/2016 1:15 PM PDT) + + + + + + | Component | Value | Ref Range | Performed | Pathologist | | | | | At | Signature | + + + + + + | Glucose, | 108 (H)Comment: Testing | 65 - 99 mg/dL | EXTERNAL | | | Fingerstick | performed at [facility];[address] | | LAB | | | | [address];[place] | | | | | | [address] | | | | + + + + + + + + | Specimen | + + | | + + + +---------+ + + | Performing | Address | City/State/Zipcode | Phone Number | | Organization | | | | + +---------+ + + | EXTERNAL LAB | | | | + +---------+ + + Type and Screen (03/01/2016 11:50 AM PDT) + + + + + + | Component | Value | Ref Range | Performed | Pathologist | | | | | At | Signature | + + + + + + | ABO Rh | A NEGATIVE | | EXTERNAL | | | | | | LAB | | + + + + + + | ABO Rh | Testing performed at | | EXTERNAL | | | | [facility];[address] | | LAB | | | [address];[place] [address] | | | | + + + + + + | Antibody | NEGATIVE | | EXTERNAL | | | Screen | | | LAB | | + + + + + + | Antibody | Testing performed at | | EXTERNAL | | | Screen | [facility];[address] | | LAB | | | | [address];[place] [address] | | | | + + + + + + | BB BAND | [id number] | | EXTERNAL | | | | | | LAB | | + + + + + + | BB BAND | Testing performed at | | EXTERNAL | | | | [facility];[address] | | LAB | | | | [address];[place] [address] | | | | + + + + + + + + | Specimen | + + | Blood specimen | | (specimen) | + + + +---------+ + + | Performing | Address | City/State/Zipcode | Phone Number | | Organization | | | | + +---------+ + + | EXTERNAL LAB | | | | + +---------+ + + External Lab: KELLY (03/01/2016 10:24 AM PDT) + + + + + + | Component | Value | Ref Range | Performed | Pathologist | | | | | At | Signature | + + + + + + | WBC | 6.17Comment: Testing | 3.80 - 11.00 | EXTERNAL | | | | performed at [facility];[address] | K/uL | LAB | | | | [address];[place] | | | | | | [address] | | | | + + + + + + | Non- | 3.15 (L)Comment: Testing | 4.20 - 5.70 | EXTERNAL | | | Red Blood | performed at [facility];[address] | M/uL | LAB | | | Cells | [address];[place] | | | | | Counted | [address] | | | | + + + + + + | Hemoglobin | 8.9 (L)Comment: Testing | 13.2 - 17.0 | EXTERNAL | | | | performed at [facility];[address] | g/dL | LAB | | | | [address];[place] | | | | | | [address] | | | | + + + + + + | Hematocrit, | 26.7 (L)Comment: Testing | 39.0 - 50.0 % | EXTERNAL | | | POC | performed at [facility];[address] | | LAB | | | | [address];[place] | | | | | | [address] | | | | + + + + + + | MCV | 84.9Comment: Testing | 80.0 - 100.0 fl | EXTERNAL | | | | performed at [facility];[address] | | LAB | | | | [address];[place] | | | | | | [address] | | | | + + + + + + | MCH | 28.3Comment: Testing | 27.0 - 34.0 pg | EXTERNAL | | | | performed at [facility];[address] | | LAB | | | | [address];[place] | | | | | | [address] | | | | + + + + + + | MCHC | 33.3Comment: Testing | 32.0 - 35.5 | EXTERNAL | | | | performed at [facility];[address] | g/dL | LAB | | | | [address];[place] | | | | | | [address] | | | | + + + + + + | RDW-CV | 43.8Comment: Testing | 37 - 53 fl | EXTERNAL | | | | performed at [facility];[address] | | LAB | | | | [address];[place] | | | | | | [address] | | | | + + + + + + | Platelet | 138 (L)Comment: Testing | 150 - 400 K/uL | EXTERNAL | | | Count | performed at [facility];[address] | | LAB | | | Plasma | [address];[place] | | | | | | [address] | | | | + + + + + + | MPV | 9.8Comment: Testing | fl | EXTERNAL | | | | performed at [facility];[address] | | LAB | | | | [address];[place] | | | | | | [address] | | | | + + + + + + | Differentia | AUTOMATEDComment: | | EXTERNAL | | | l Type | Testing performed at | | LAB | | | | [facility];[address] | | | | | | [address];[place] [address] | | | | + + + + + + | % Segmented | 66.32Comment: Testing | % | EXTERNAL | | | | performed at [facility];[address] | | LAB | | | Neutrophils | [address];[place] | | | | | | [address] | | | | + + + + + + | % | 19.22Comment: Testing | % | EXTERNAL | | | Lymphocytes | performed at [facility];[address] | | LAB | | | | [address];[place] | | | | | | [address] | | | | + + + + + + | % Monocytes | 10.29Comment: Testing | % | EXTERNAL | | | | performed at [facility];[address] | | LAB | | | | [address];[place] | | | | | | [address] | | | | + + + + + + | % | 2.95Comment: Testing | % | EXTERNAL | | | Eosinophils | performed at [facility];[address] | | LAB | | | | [address];[place] | | | | | | [address] | | | | + + + + + + | % Basophils | 1.22Comment: Testing | % | EXTERNAL | | | | performed at [facility];[address] | | LAB | | | | [address];[place] | | | | | | [address] | | | | + + + + + + | Absolute | 4.09Comment: Testing | 1.90 - 7.40 | EXTERNAL | | | Segmented | performed at [facility];[address] | K/uL | LAB | | | Neutrophils | [address];[place] | | | | | | [address] | | | | + + + + + + | Absolute | 1.19Comment: Testing | 1.00 - 3.90 | EXTERNAL | | | Lymphocytes | performed at [facility];[address] | K/uL | LAB | | | | [address];[place] | | | | | | [address] | | | | + + + + + + | Absolute | 0.64Comment: Testing | 0.00 - 0.80 | EXTERNAL | | | Monocytes | performed at [facility];[address] | K/uL | LAB | | | | [address];[place] | | | | | | [address] | | | | + + + + + + | Absolute | 0.18Comment: Testing | 0.00 - 0.50 | EXTERNAL | | | Eosinophils | performed at [facility];[address] | K/uL | LAB | | | | [address];[place] | | | | | | [address] | | | | + + + + + + | Absolute | 0.08Comment: Testing | 0.00 - 0.10 | EXTERNAL | | | Basophils | performed at [facility];[address] | K/uL | LAB | | | | [address];[place] | | | | | | [address] | | | | + + + + + + + + | Specimen | + + | Blood specimen | | (specimen) | + + + +---------+ + + | Performing | Address | City/State/Zipcode | Phone Number | | Organization | | | | + +---------+ + + | EXTERNAL LAB | | | | + +---------+ + + Basic Metabolic Panel (03/01/2016 10:24 AM PDT) + + + + + + | Component | Value | Ref Range | Performed | Pathologist | | | | | At | Signature | + + + + + + | Na | 142Comment: Testing | 135 - 145 | EXTERNAL | | | | performed at [facility];[address] | mmol/L | LAB | | | | [address];[place] | | | | | | [address] | | | | + + + + + + | K | 4.3Comment: SLT | 3.5 - 4.9 | EXTERNAL | | | | HEMOLYSISTesting | mmol/L | LAB | | | | performed at [facility];[address] | | | | | | [address];[place] | | | | | | [address] | | | | + + + + + + | Cl | 108Comment: Testing | 99 - 109 mmol/L | EXTERNAL | | | | performed at [facility];[address] | | LAB | | | | [address];[place] | | | | | | [address] | | | | + + + + + + | CO2 | 22 (L)Comment: Testing | 23 - 32 mmol/L | EXTERNAL | | | | performed at [facility];[address] | | LAB | | | | [address];[place] | | | | | | [address] | | | | + + + + + + | Anion Gap | 17Comment: Testing | 5 - 20 mmol/L | EXTERNAL | | | | performed at [facility];[address] | | LAB | | | | [address];[place] | | | | | | [address] | | | | + + + + + + | Glucose, | 100 (H)Comment: Testing | 65 - 99 mg/dL | EXTERNAL | | | Fasting | performed at [facility];[address] | | LAB | | | | [address];[place] | | | | | | [address] | | | | + + + + + + | BUN | 58 (H)Comment: Testing | 8 - 25 mg/dL | EXTERNAL | | | | performed at [facility];[address] | | LAB | | | | [address];[place] | | | | | | [address] | | | | + + + + + + | Creatinine | 8.1 (H)Comment: Testing | 0.70 - 1.30 | EXTERNAL | | | | performed at [facility];[address] | mg/dL | LAB | | | | [address];[place] | | | | | | [address] | | | | + + + + + + | BUN/Creatin | 7Comment: Testing | | EXTERNAL | | | ine Ratio | performed at [facility];[address] | | LAB | | | | [address];[place] | | | | | | [address] | | | | + + + + + + | Calcium | 8.5Comment: Testing | 8.5 - 10.5 | EXTERNAL | | | | performed at [facility];[address] | mg/dL | LAB | | | | [facility];[place] | | | | | | [address] | | | | + + + + + + | Estimated | 7 (L)Comment: GFR <60: | mL/min/1.73m2 | EXTERNAL | | | GFR | CHRONIC KIDNEY DISEASE, | | LAB | | | | IF FOUND OVER A 3 MONTH | | | | | | PERIOD.GFR <15: KIDNEY | | | | | | FAILURE.FOR | | | | | | AMERICANS, MULTIPLY THE | | | | | | CALCULATED GFR BY | | | | | | 1.210.Testing performed | | | | | | at [facility] [place];[address] | | | | | | [address] [id number] | | | | + + + + + + + + | Specimen | + + | Blood specimen | | (specimen) | + + + +---------+ + + | Performing | Address | City/State/Zipcode | Phone Number | | Organization | | | | + +---------+ + + | EXTERNAL LAB | | | | + +---------+ + + POC Glucose (03/01/2016 10:21 AM PDT) + + + + + + | Component | Value | Ref Range | Performed | Pathologist | | | | | At | Signature | + + + + + + | Glucose, | 101 (H)Comment: Testing | 65 - 99 mg/dL | EXTERNAL | | | Fingerstick | performed at [facility] [place];[address] | | LAB | | | | [address];[place] | | | | | | [address] | | | | + + + + + + + + | Specimen | + + | | + + + +---------+ + + | Performing | Address | City/State/Zipcode | Phone Number | | Organization | | | | + +---------+ + + | EXTERNAL LAB | | | | + +---------+ + + documented in this encounter Visit Diagnoses Not on filedocumented in this encounter
--- OUTSIDE RECORDS SUMMARY | ~2019-12-23 | XMS | Encounter Summary ---
Demographics + + + | Address | [address] | | | [place] [address] | + + + | Home Phone | | + + + | Preferred Language | Unknown | + + + | Marital Status | | + + + | Christian Affiliation | Unknown | + + + | Race | Unknown | + + + | Ethnic Group | Unknown | + + + Author + + + | Author | [facility] | | | and [place] | + + + | Organization | [facility] | | | [...] [address] | | | | | [address] | | + + + + + | Parth Vital | ECON | Unknown | | + + + + + Care Team Providers + +------+ + | Care Panel Machine Operator Name | Role | Phone | + +------+ + | Star Doll MD | PCP | | + +------+ + Encounter Details +--------+ + + + + | Date | Type | Department | Care Team | Description | +--------+ + + + + | 11/19/ | Orders Only | [facility] | Conversion | | | 2016 | | NEPHROLOGY [place] | Transaction, | | | | | [address] | Provider Unknown | | | | | [address] [place] | | | | | | [address] | (Fax) | | | | | [phone] | | | +--------+ + + + [...] + + documented as of this encounter Plan of Treatment Not on filedocumented as of this encounter Procedures + +--------+ + + + | Procedure Name | Priori | Date/Time | Associated Diagnosis | Comments | | | ty | | | | + +--------+ + + + | IRON AND IRON | Routin | 11/20/2015 | | Results for this | | BINDING CAPACITY | e | 10:17 AM | | procedure are in the | | | | PDT | | results section. | + +--------+ + + + | URINALYSIS, | Routin | 11/20/2015 | | Results for this | | MICROSCOPIC ONLY | e | 10:17 AM | | procedure are in the | | | | PDT | | results section. | + +--------+ + + + | HEMOGLOBIN AND | Routin | 11/20/2015 | | Results for this | | HEMATOCRIT | e | 10:17 AM | | procedure are in the | | | | PDT | | results section. | + +--------+ + + + | PROTEIN/CREATININE | Routin | 11/20/2015 | | Results for this | | RATIO, URINE | e | 10:17 AM | | procedure are in the | | | | PDT | | results section. | + +--------+ + + + | TRANSFERRIN | Routin | 11/20/2015 | | Results for this | | | e | 10:17 AM | | procedure are in the | | | | PDT | | results section. | + +--------+ + + + | PARATHYROID HORMONE, | Routin | 11/20/2015 | | Results for this | | INTACT | e | 10:17 AM | | procedure are in the | | | | PDT | | results section. | + +--------+ + + + | MAGNESIUM | Routin | 11/20/2015 | | Results for this | | | e | 10:17 AM | | procedure are in the | | | | PDT | | results section. | + +--------+ + + + | FERRITIN | Routin | 11/20/2015 | | Results for this | | | e | 10:17 AM | | procedure are in the | | | | PDT | | results section. | + +--------+ + + + | RENAL FUNCTION PANEL | Routin | 11/20/2015 | | Results for this | | | e | 10:17 AM | | procedure are in the | | | | PDT | | results section. | + +--------+ + + + documented in this encounter Results Hemoglobin and Hematocrit (11/20/2015 10:17 AM PDT) + + + + + + | Component | Value | Ref Range | Performed | Pathologist | | | | | At | Signature | + + + + + + | Hemoglobin | 10.5 (A) | 13.5 - 18.0 | EXTERNAL | | | | | g/dL | LAB | | + + + + + + | Hematocrit, | 31.7 (A) | 41 - 50 % | EXTERNAL | | | POC | | | LAB | | + + + + + + + + | Specimen | + + | | + + + +---------+ + + | Performing | Address | City/State/Zipcode | Phone Number | | Organization | | | | + +---------+ + + | EXTERNAL LAB | | | | + +---------+ + + Iron and Iron Binding Capacity (11/20/2015 10:17 AM PDT) + +-------+ + + + | Component | Value | Ref Range | Performed | Pathologist | | | | | At | Signature | + +-------+ + + + | Iron | 70.97 | 37 - 160 | EXTERNAL | | | | | | LAB | | + +-------+ + + + | Iron | 27.9 | 20 - 55 | EXTERNAL | | | Saturation | | | LAB | | + +-------+ + + + | TIBC | 254 | 245 - 400 | EXTERNAL | | | | | | LAB | | + +-------+ + + + + + | Specimen | + + | Blood specimen | | (specimen) | + + + +---------+ + + | Performing | Address | City/State/Zipcode | Phone Number | | Organization | | | | + +---------+ + + | EXTERNAL LAB | | | | + +---------+ + + Protein/Creatinine Ratio, Urine (11/20/2015 10:17 AM PDT) + + + + + + | Component | Value | Ref Range | Performed | Pathologist | | | | | At | Signature | + + + + + + | Protein/Cre | 5473.7 (A) | 0 - 150 | EXTERNAL | | | at Ratio | | | LAB | | + + + + + + + + | Specimen | + + | Urine specimen | | (specimen) | + + + +---------+ + + | Performing | Address | City/State/Zipcode | Phone Number | | Organization | | | | + +---------+ + + | EXTERNAL LAB | | | | + +---------+ + + Urinalysis, Microscopic Only (11/20/2015 10:17 AM PDT) + + + + + + | Component | Value | Ref Range | Performed | Pathologist | | | | | At | Signature | + + + + + + | Color | Yellow | | EXTERNAL | | | | | | LAB | | + + + + + + | Clarity, | Clear | | EXTERNAL | | | Urine | | | LAB | | + + + + + + | Specific | 1.015 | 1.005 - 1.030 | EXTERNAL | | | [place], | | | LAB | | | Urine | | | | | + + + + + + | Leukocyte | Negative | | EXTERNAL | | | Esterase, | | | LAB | | | Urine | | | | | + + + + + + | Nitrite, | Negative | | EXTERNAL | | | Urine | | | LAB | | + + + + + + | Urobilinoge | Normal | | EXTERNAL | | | n, Urine | | | LAB | | + + + + + + | Protein, | Comment: 500 | | EXTERNAL | | | Urine | | | LAB | | + + + + + + | pH, Urine | 6 | 5 - 9 | EXTERNAL | | | | | | LAB | | + + + + + + | Blood, | Comment: 10 | | EXTERNAL | | | Urine | | | LAB | | + + + + + + | Ketones | Negative | | EXTERNAL | | | | | | LAB | | + + + + + + | Bilirubin, | Negative | | EXTERNAL | | | Urine | | | LAB | | + + + + + + | Glucose, | Comment: 1000 | | EXTERNAL | | | Urine | | | LAB | | + + + + + + + + | Specimen | + + | Urine specimen | | (specimen) | + + + +---------+ + + | Performing | Address | City/State/Zipcode | Phone Number | | Organization | | | | + +---------+ + + | EXTERNAL LAB | | | | + +---------+ + + Transferrin (11/20/2015 10:17 AM PDT) + +--------+ + + + | Component | Value | Ref Range | Performed | Pathologist | | | | | At | Signature | + +--------+ + + + | TRANSFERRIN | 181.12 | 180 - 329 | EXTERNAL | | | | | | LAB | | + +--------+ + + + + + | Specimen | + + | Blood specimen | | (specimen) | + + + +---------+ + + | Performing | Address | City/State/Zipcode | Phone Number | | Organization | | | | + +---------+ + + | EXTERNAL LAB | | | | + +---------+ + + Parathyroid Hormone, Intact (11/20/2015 10:17 AM PDT) + +-------+ + + + | Component | Value | Ref Range | Performed | Pathologist | | | | | At | Signature | + +-------+ + + + | PTH INTACT | 46.42 | 15 - 65 pg/mL | EXTERNAL | | | | | | LAB | | + +-------+ + + + + + | Specimen | + + | Blood specimen | | (specimen) | + + + +---------+ + + | Performing | Address | City/State/Zipcode | Phone Number | | Organization | | | | + +---------+ + + | EXTERNAL LAB | | | | + +---------+ + + Magnesium (11/20/2015 10:17 AM PDT) + +-------+ + + + | Component | Value | Ref Range | Performed | Pathologist | | | | | At | Signature | + +-------+ + + + | Magnesium | 2.1 | 1.7 - 2.5 mg/dL | EXTERNAL | | | | | | LAB | | + +-------+ + + + + + | Specimen | + + | Blood specimen | | (specimen) | + + + +---------+ + + | Performing | Address | City/State/Zipcode | Phone Number | | Organization | | | | + +---------+ + + | EXTERNAL LAB | | | | + +---------+ + + Ferritin (11/20/2015 10:17 AM PDT) + + + + + + | Component | Value | Ref Range | Performed | Pathologist | | | | | At | Signature | + + + + + + | Ferritin, | 446.8 (A) | 30 - 400 ng/mL | EXTERNAL | | | External | | | LAB | | + + + + + + + + | Specimen | + + | Blood specimen | | (specimen) | + + + +---------+ + + | Performing | Address | City/State/Zipcode | Phone Number | | Organization | | | | + +---------+ + + | EXTERNAL LAB | | | | + +---------+ + + Renal Function Panel (11/20/2015 10:17 AM PDT) + + + + + + | Component | Value | Ref Range | Performed | Pathologist | | | | | At | Signature | + + + + + + | Glucose, | 287 (A) | 70 - 100 mg/dL | EXTERNAL | | | Fasting | | | LAB | | + + + + + + | BUN | 52 (A) | 6 - 23 mg/dL | EXTERNAL | | | | | | LAB | | + + + + + + | Creatinine | 5.79 (A) | 0.70 - 1.18 | EXTERNAL | | | | | mg/dL | LAB | | + + + + + + | PHOSPHORUS | 5.0 | 2.5 - 5.0 mg/dL | EXTERNAL | | | | | | LAB | | + + + + + + | Albumin | 3.8 | 3.5 - 5.0 | EXTERNAL | | | | | | LAB | | + + + + + + | Na | 138 | 132 - 143 | EXTERNAL | | | | | mmol/L | LAB | | + + + + + + | K | 3.8 | 3.6 - 5.1 | EXTERNAL | | | | | mmol/L | LAB | | + + + + + + | Cl | 103 | 95 - 112 mmol/L | EXTERNAL | | | | | | LAB | | + + + + + + | CO2 | 21 | 19 - 31 mmol/L | EXTERNAL | | | | | | LAB | | + + + + + + | Anion Gap | 17.8 | 7 - 21 mmol/L | EXTERNAL | | | | | | LAB | | + + + + + + | eGFR if not | | | EXTERNAL | | | | | | LAB | | | [place] | | | | | + + + + + + | Phosphorus, | | | EXTERNAL | | | Inorganic | | | LAB | | + + + + + + | BUN/Creatin | 9.0 | 6.0 - 28.6 | EXTERNAL | | | ine Ratio | | | LAB | | + + + + + + | Calcium | 9.5 | 8.4 - 10.2 | EXTERNAL | | | | | mg/dL | LAB | | + + + + + + | Estimated | 10 | mg/dL | EXTERNAL | | | GFR | | | LAB | | + [...] Visit Diagnoses Not on filedocumented in this encounter"
--- OUTSIDE RECORDS SUMMARY | ~2019-12-23 | XMS | Encounter Summary ---
Demographics + + + | Address | [address] | | | [place] [address] | + + + | Home Phone | | + + + | Preferred Language | Unknown | + + + | Marital Status | | + + + | Congregational Affiliation | Unknown | + + + | Race | Unknown | + + + | Ethnic Group | Unknown | + + + Author + + + | Author | [facility] | | | and [place] | + + + | Organization | [facility] | | | [...] [address] | | | | | [address] | | + + + + + | Parth Vital | ECON | Unknown | | + + + + + Care Team Providers + +------+ + | Care Device Repair Technician Name | Role | Phone | + +------+ + | Star Doll MD | PCP | | + +------+ + Encounter Details +--------+ + + + + | Date | Type | Department | Care Team | Description | +--------+ + + + + | 01/02/ | Orders Only | [facility] | Jeanmarie Ly MD | | | 2014 | | NEPRHOLOGY [place] | [address] | | | | | [address] | [address] [place], [place] | | | | | [address] [place], [place] | [address] | | | | | [address] | | | | | | [phone] | | | +--------+ + + + [...] | IRON AND IRON | Routin | 01/13/2015 | | Results for this | | BINDING CAPACITY | e | 12:00 AM | | procedure are in the | | | | PDT | | results section. | + +--------+ + + + | URINALYSIS WITH | Routin | 01/13/2015 | | Results for this | | MICROSCOPIC IF | e | 12:00 AM | | procedure are in the | | INDICATED | | PDT | | results section. | + +--------+ + + + | VITAMIN D, | Routin | 01/13/2015 | | Results for this | | DEFICIENCY SCREEN | e | 12:00 AM | | procedure are in the | | (25-HYDROXY) | | PDT | | results section. | + +--------+ + + + | PARATHYROID HORMONE, | Routin | 01/13/2015 | | Results for this | | INTACT AND CALCIUM | e | 12:00 AM | | procedure are in the | | | | PDT | | results section. | + +--------+ + + + | PROTEIN/CREATININE | Routin | 01/13/2015 | | Results for this | | RATIO, URINE | e | 12:00 AM | | procedure are in the | | | | PDT | | results section. | + +--------+ + + + | MAGNESIUM | Routin | 01/13/2015 | | Results for this | | | e | 12:00 AM | | procedure are in the | | | | PDT | | results section. | + +--------+ + + + | FERRITIN | Routin | 01/13/2015 | | Results for this | | | e | 12:00 AM | | procedure are in the | | | | PDT | | results section. | + +--------+ + + + | HEMOGLOBIN | Routin | 01/02/2015 | | Results for this | | | e | 12:00 AM | | procedure are in the | | | | PDT | | results section. | + +--------+ + + + | HEMATOCRIT | Routin | 01/02/2015 | | Results for this | | | e | 12:00 AM | | procedure are in the | | | | PDT | | results section. | + +--------+ + + + | RENAL FUNCTION PANEL | Routin | 01/02/2015 | | Results for this | | | e | 12:00 AM | | procedure are in the | | | | PDT | | results section. | + +--------+ + + + documented in this encounter Results Iron and Iron Binding Capacity (01/13/2015 12:00 AM PDT) + +-------+ + + + | Component | Value | Ref Range | Performed | Pathologist | | | | | At | Signature | + +-------+ + + + | Iron | 86 | 37 - 160 | EXTERNAL | | | | | | LAB | | + +-------+ + + + | Iron | 33.2 | 20 - 55 | EXTERNAL | | | Saturation | | | LAB | | + +-------+ + + + | TIBC | 259 | 245 - 400 | EXTERNAL | [...] + +---------+ + + Parathyroid Hormone, Intact and Calcium (01/13/2015 12:00 AM PDT) + +-------+ + + + | Component | Value | Ref Range | Performed | Pathologist | | | | | At | Signature | + +-------+ + + + | PTH Intact | 35.65 | 15 - 65 | EXTERNAL | | | | | | LAB | | + +-------+ + + + | Calcium | 9.6 | 8.4 - 10.2 | EXTERNAL | [...] + +---------+ + + Protein/Creatinine Ratio, Urine (01/13/2015 12:00 AM PDT) + + + + + + | Component | Value | Ref Range | Performed | Pathologist | | | | | At | Signature | + + + + + + | Protein/Cre | 4040.0 (A) | 0 - 150 | EXTERNAL [...] | | | + +---------+ + + Vitamin D, Deficiency Screen (25-Hydroxy) (01/13/2015 12:00 AM PDT) + +-------+ + + + | Component | Value | Ref Range | Performed | Pathologist | | | | | At | Signature | + +-------+ + + + | Vit D, | 65 | 30 - 100 | EXTERNAL | | | 25-Hydroxy | | | LAB | | + +-------+ + + + + + | Specimen | + + | Blood specimen | | (specimen) | + + + +---------+ + + | Performing | Address | City/State/Zipcode | Phone Number | | Organization | | | | + +---------+ + + | EXTERNAL LAB | | | | + +---------+ + + Urinalysis with Microscopic if Indicated (01/13/2015 12:00 AM PDT) + + + + + [...] + + + + + + | Spec Grav, | 1.013 | 1.005 - 1.030 | EXTERNAL | | | Fluid | | | LAB | | + [...] + + + + + + | Total | 500 | | EXTERNAL | | | Protein | | | LAB | | + + + + + + | pH, Urine | 5 | 5 - 9 | EXTERNAL | | | | | | LAB | | + + + + + + | Blood, | Negative | | EXTERNAL | | [...] + + + + | Glucose, | 4+Comment: 1000 | | EXTERNAL | | | [...] | | + +---------+ + + Magnesium (01/13/2015 12:00 AM PDT) + +-------+ + + + | Component | Value | Ref Range | Performed | Pathologist | | | | | At | Signature | + +-------+ + + + | Magnesium | 2.0 | 1.7 - 2.5 mg/dL | EXTERNAL [...] | | + +---------+ + + Ferritin (01/13/2015 12:00 AM PDT) + + + + + + | Component | Value | Ref Range | Performed | Pathologist | | | | | At | Signature | + + + + + + | Ferritin, | 793.3 (A) | 30 - 400 ng/mL | [...] | | | + +---------+ + + Hemoglobin (01/02/2015 12:00 AM PDT) + + | Specimen | + + | Blood specimen | | (specimen) | + + + + + | Impressions | Performed At | + + + | 10.7 | EXTERNAL LAB | + + + + +---------+ + + | Performing | Address | City/State/Zipcode | Phone Number | | Organization | | | | + +---------+ + + | EXTERNAL LAB | | | | + +---------+ + + Hematocrit (01/02/2015 12:00 AM PDT) + + + + + + | Component | Value | Ref Range | Performed | Pathologist | | | | | At | Signature | + + + + + + | Hematocrit, | 31.3 (A) | 41 - 50 % | [...] + +---------+ + + Renal Function Panel (01/02/2015 12:00 AM PDT) + + + + + + | Component | Value | Ref Range | Performed | Pathologist | | | | | At | Signature | + + + + + + | Glucose, | 275 (A) | 70 - 100 mg/dL | EXTERNAL | | | Fasting | | | LAB | | + + + + + + | BUN | 50 (A) | 6 - 23 mg/dL | EXTERNAL | | | | | | LAB | | + + + + + + | Creatinine | 4.05 (A) | 0.70 - 1.18 | EXTERNAL | | | | | mg/dL | LAB | | + + + + + + | PHOSPHORUS | | mg/dL | EXTERNAL | | | | | | LAB | | + + + + + + | Albumin | 3.5 | 3.5 - 5.0 | EXTERNAL | | | | | | LAB | | + + + + + + | Na | 135 | 132 - 143 | EXTERNAL | | | | | mmol/L | LAB | | + + + + + + | K | 3.7 | 3.6 - 5.1 | EXTERNAL | | | | | mmol/L | LAB | | + + + + + + | Cl | 102 | 95 - 112 mmol/L | EXTERNAL | | | | | | LAB | | + + + + + + | CO2 | 19 | 19 - 31 mmol/L | EXTERNAL | | | | | | LAB | | + + + + + + | Anion Gap | 17.7 | 7 - 21 mmol/L | EXTERNAL | | | | | | LAB | | + + + + + + | eGFR if not | | | EXTERNAL | | | | | | LAB | | | [facility] | | | | | + + + + + + | Phosphorus, | 4.2 | 2.5 - 5.0 | EXTERNAL | | | Inorganic | | | LAB | | + + + + + + | BUN/Creatin | 12.3 | 6.0 - 28.6 | EXTERNAL | | | ine Ratio | | | LAB | | + + + + + + | Calcium | 9.0 | 8.4 - 10.2 | EXTERNAL | | | | | mg/dL | LAB | | + + + + + + | Estimated | 15 | mg/dL | EXTERNAL | | | [...]
--- OUTSIDE RECORDS SUMMARY | ~2019-12-23 | XMS | Encounter Summary ---
Demographics + + + | Address | [address] | | | [place] [address] | + + + | Home Phone | | + + + | Preferred Language | Unknown | + + + | Marital Status | | + + + | Mosque Affiliation | Unknown | + + + | Race | Unknown | + + + | Ethnic Group | Unknown | + + + Author + + + | Author | [facility] | | | and [place] | + + + | Organization | [facility] | | | and [...] [address] | | | | | [address] | | + + + + + | Parth Vital | ECON | Unknown | | + + + + + Care Team Providers + +------+ + | Care Client Development Director Name | Role | Phone | + +------+ + PCP | Unavailable | + +------+ + Encounter Details +--------+ + + + + | Date | Type | Department | Care Team | Description | +--------+ + + + + | 10/11/ | Hospital | [facility] | | | | 1997 | Encounter | MED CTR XRAY [address] | | | | | | [place] | | | | | | [place] [address] | | | | | | [phone] | | | +--------+ + + + + Social History + +-------+ +--------+------+ | Tobacco Use | Types | Packs/Day | Years | Date | | | | | Used | | + +-------+ +--------+------+ | Never Assessed | | | | | + +-------+ +--------+------+ + + + | Sex Assigned at | Date Recorded | | | | + + + | Not on file | | + + + documented as of this encounter Plan of Treatment Not on filedocumented as of this encounter Visit Diagnoses Not on filedocumented in this encounter"
--- OUTSIDE RECORDS SUMMARY | ~2019-12-23 | XMS | Encounter Summary ---
Demographics + + + | Address | [address] | | | [place] [address] | + + + | Home Phone | | + + + | Preferred Language | Unknown | + + + | Marital Status | | + + + | Methodist Affiliation | Unknown | + + + | Race | Unknown | + + + | Ethnic Group | Unknown | + + + Author + + + | Author | [facility] | | | and [place] | + + + | Organization | [facility] | | | [...] [address] | | | | | [address] | | + + + + + | Parth Vital | ECON | Unknown | | + + + + + Care Team Providers + +------+ + | Care Seafood And Service Meat Manager Name | Role | Phone | + +------+ + | Star Doll MD | PCP | | + +------+ + Encounter Details +--------+ + + + + | Date | Type | Department | Care Team | Description | +--------+ + + + + | 02/28/ | Orders Only | [facility] | Vivek Dias MD | | | 2016 | | VASCULAR SURGERY | [address] | | | | | [address] | [place], [place] | | | | | [address] | [address] | | | | | [place], [place] | [phone] | | | | | [address] | | | | | | [phone] | | | +--------+ + + + [...] | + +--------+ + + + | VAS ARM MAPPING FOR | Routin | 02/29/2016 | | Results for this | | DIALYSIS RIGHT | e | 3:57 PM | | procedure are in the | | | | PDT | | results section. | + +--------+ + + + documented in this encounter Results VAS Arm Mapping For Dialysis Right (02/29/2016 3:57 PM PDT) + + | Specimen | + + | | + + + + + | Impressions | Performed At | + + + | 1. A brachiocephalic fistula may be the best choice, as the | | | basilic vein has a low insertion point and there is a stenosis of the | | | distal radial artery Left hand dominant patient Would | | | correlate with individual surgical protocol for this individual | | | patient Electronically signed by Aki Meyers MD on | | | 02/29/2016 4:50 PM | | + + + + + + | Narrative | Performed At | + + + | History: 70-year-old male, preoperative. Requires vein mapping | | | Technique: Ultrasound of the bilateral lower extremity superficial | | | systems. Prior study: None Findings: EVALUATION OF THE RIGHT: | | | CEPHALIC VEIN proximal arm: 5.7 mm, 18 mm from the skin | | | surface middle arm: 3.8 mm, 8.2 mm from the skin surface distal | | | arm: 3.9 mm, 4.2 mm from the skin surface proximal forearm: 4.3 | | | mm, 6.6 mm from the skin surface middle forearm: 3.1 mm, 4.5 mm | | | from the skin surface distal forearm: 3.8 mm, 2.5 mm from the skin | | | surface BRACHIAL VEIN proximal arm: 4.9 mm, 20 mm from the | | | skin surface middle arm: 4 mm, 23 mm from the skin surface distal | | | arm: 4.3 mm, 10.7 mm from the skin surface BASILIC VEIN: | | | middle arm: 6 mm, 16 mm from the skin surface distal arm: 2.8 mm, | | | 3.9 mm from the skin surface proximal forearm: 2.2 mm, 2.8 mm from | | | the skin surface middle forearm: 2.2 mm, 2.3 mm from the skin | | | surface distal forearm: 1.8 mm, 2.6 mm from the skin surface | | | BRACHIAL ARTERY: 6.3 mm, 10.7 mm from the skin surface RADIAL | | | ARTERY: 3.6 mm, 8.3 mm from the skin surface ULNAR ARTERY: 2.5 mm, | | | 10.2 mm from the skin surface Atherosclerotic vascular disease: | | | Not reported A stenosis of the distal radial artery with a | | | velocity elevation is noted, image 37. Atherosclerotic | | | calcifications are also. Thrombosis: None | | + + + + + | Procedure Note | + + | Elmo Rubio Conversion - 01/28/2019 9:24 PM PDT History: 70-year-old male, | | preoperative. Requires vein mapping Technique: Ultrasound of the bilateral lower | | extremity superficial systems.Prior study: None Findings: EVALUATION OF THE RIGHT: | | CEPHALIC VEIN proximal arm: 5.7 mm, 18 mm from the skin surfacemiddle arm: 3.8 mm, 8.2 | | mm from the skin surfacedistal arm: 3.9 mm, 4.2 mm from the skin surfaceproximal | | forearm: 4.3 mm, 6.6 mm from the skin surfacemiddle forearm: 3.1 mm, 4.5 mm from the | | skin surfacedistal forearm: 3.8 mm, 2.5 mm from the skin surface BRACHIAL VEIN proximal | | arm: 4.9 mm, 20 mm from the skin surfacemiddle arm: 4 mm, 23 mm from the skin | | surfacedistal arm: 4.3 mm, 10.7 mm from the skin surface BASILIC VEIN: middle arm: 6 | | mm, 16 mm from the skin surfacedistal arm: 2.8 mm, 3.9 mm from the skin surfaceproximal | | forearm: 2.2 mm, 2.8 mm from the skin surfacemiddle forearm: 2.2 mm, 2.3 mm from the | | skin surfacedistal forearm: 1.8 mm, 2.6 mm from the skin surface BRACHIAL ARTERY: 6.3 | | mm, 10.7 mm from the skin surface RADIAL ARTERY: 3.6 mm, 8.3 mm from the skin surface | | ULNAR ARTERY: 2.5 mm, 10.2 mm from the skin surface Atherosclerotic vascular disease: | | Not reported A stenosis of the distal radial artery with a velocity elevation is noted, | | image 37. Atherosclerotic calcifications are also. Thrombosis: None IMPRESSION: 1. A | | brachiocephalic fistula may be the best choice, as the basilic vein has a low insertion | | point and there is a stenosis of the distal radial artery Left hand dominant patient | | Would correlate with individual surgical protocol for this individual patient | | | | | |proximal arm: 4.9 mm, 20 mm from the skin surface | |middle arm: 4 mm, 23 mm from the skin surface | |distal arm: 4.3 mm, 10.7 mm from the skin surface | | | |BASILIC VEIN: | | | |middle arm: 6 mm, 16 mm from the skin surface | |distal arm: 2.8 mm, 3.9 mm from the skin surface | |proximal forearm: 2.2 mm, 2.8 mm from the skin surface | |middle forearm: 2.2 mm, 2.3 mm from the skin surface | |distal forearm: 1.8 mm, 2.6 mm from the skin surface | | | |BRACHIAL ARTERY: 6.3 mm, 10.7 mm from the skin surface | | | |RADIAL ARTERY: 3.6 mm, 8.3 mm from the skin surface | | | |ULNAR ARTERY: 2.5 mm, 10.2 mm from the skin surface | | | |Atherosclerotic vascular disease: Not reported | | | |A stenosis of the distal radial artery with a velocity elevation is noted, image 37. | | | |Atherosclerotic calcifications are also. | | | |Thrombosis: None | | | |IMPRESSION: | | | |1. A brachiocephalic fistula may be the best choice, as the basilic vein has a low insertio n point and there is a stenosis of the distal radial artery | | | |Left hand dominant patient | | | |Would correlate with individual surgical protocol for this individual patient | | | | | + + documented in this encounter Visit Diagnoses Not on filedocumented in this encounter"
--- OUTSIDE RECORDS SUMMARY | ~2019-12-23 | XMS | Encounter Summary ---
Demographics + + + | Address | [address] | | | [place] [address] | + + + | Home Phone | | + + + | Preferred Language | Unknown | + + + | Marital Status | | + + + | Quaker Affiliation | Unknown | + + + | Race | Unknown | + + + | Ethnic Group | Unknown | + + + Author + + + | Author | [facility] | | | and [place] | + + + | Organization | [facility] | | [...] [address] | | | | | [address] | | + + + + + | Parth Vital | ECON | Unknown | | + + + + + Care Team Providers + +------+ + | Care Senior Instructional Designer Name | Role | Phone | + +------+ + | Star Doll MD | PCP | | + +------+ + Encounter Details +--------+ + + + + | Date | Type | Department | Care Team | Description | +--------+ + + + + | 11/28/ | Orders Only | [facility] | Jeanmarie Ly MD | | | 2014 | | NEPHROLOGY [place] | [address] [place] | | | | | [address] [place] | [address] [place], [place] | | | | | [address] [place], [place] | [address] | | | | | [address] | | | | | | [phone] | | | +--------+ + + + [...] | IRON AND IRON | Routin | 11/28/2014 | | Results for this | | BINDING CAPACITY | e | 12:00 AM | | procedure are in the | | | | PDT | | results section. | + +--------+ + + + | URINALYSIS WITH | Routin | 11/28/2014 | | Results for this | | MICROSCOPIC WITH | e | 12:00 AM | | procedure are in the | | CULTURE IF INDICATED | | PDT | | results section. | + +--------+ + + + | PROTEIN/CREATININE | Routin | 11/28/2014 | | Results for this | | RATIO, URINE | e | 12:00 AM | | procedure are in the | | | | PDT | | results section. | + +--------+ + + + | PROTEIN, URINE, | Routin | 11/28/2014 | | Results for this | | RANDOM | e | 12:00 AM | | procedure are in the | | | | PDT | | results section. | + +--------+ + + + | CREATININE, URINE, | Routin | 11/28/2014 | | Results for this | | RANDOM | e | 12:00 AM | | procedure are in the | | | | PDT | | results section. | + +--------+ + + + | MAGNESIUM | Routin | 11/28/2014 | | Results for this | | | e | 12:00 AM | | procedure are in the | | | | PDT | | results section. | + +--------+ + + + | FERRITIN | Routin | 11/28/2014 | | Results for this | | | e | 12:00 AM | | procedure are in the | | | | PDT | | results section. | + +--------+ + + + | RENAL FUNCTION PANEL | Routin | 11/28/2014 | | Results for this | | | e | 12:00 AM | | procedure are in the | | | | PDT | | results section. | + +--------+ + + + documented in this encounter Results Urinalysis with Microscopic with Culture if Indicated (11/28/2014 12:00 AM PDT) + + + + [...] + + + | Spec Grav, | 1.016 | 1.005 - 1.030 | EXTERNAL | [...] + + + + + + | WBC, UA | | | EXTERNAL | | | | | | LAB | | + + + + + + | RBC, UA | | | EXTERNAL | | | | | | LAB | | + + + + + + | Epithelial | | | EXTERNAL | | | Cells | | | LAB | | + + + + + + | Bacteria, | | | EXTERNAL | | | UA | | | LAB | | + + + + + + | HYALINE | | | EXTERNAL | | | CASTS UA | | | LAB | | + + + + + + + + | Specimen | + + | | + + + +---------+ + + | Performing | Address | City/State/Zipcode | Phone Number | | Organization | | | | + +---------+ + + | EXTERNAL LAB | | | | + +---------+ + + Iron and Iron Binding Capacity (11/28/2014 12:00 AM PDT) + +-------+ + + + | Component | Value | Ref Range | Performed | Pathologist | | | | | At | Signature | + +-------+ + + + | Iron | 92 | 37 - 160 | EXTERNAL | | | | | | LAB | | + +-------+ + + + | Iron | 37.6 | 20 - 55 | EXTERNAL | | | Saturation | | | LAB | | + +-------+ + + + | TIBC | 245 | 245 - 400 | EXTERNAL | [...] + +---------+ + + Protein/Creatinine Ratio, Urine (11/28/2014 12:00 AM PDT) + + + + + + | Component | Value | Ref Range | Performed | Pathologist | | | | | At | Signature | + + + + + + | Protein/Cre | 3945.9 (A) | 0 - 150 | EXTERNAL [...] | | | + +---------+ + + Protein, Urine, Random (11/28/2014 12:00 AM PDT) + +---------+ + + + | Component | Value | Ref Range | Performed | Pathologist | | | | | At | Signature | + +---------+ + + + | Protein, | 292 (A) | 0.0 - 50.0 | EXTERNAL | | | Urine | | | LAB | | + +---------+ + + + + + | Specimen | + + | Urine specimen | | (specimen) | + + + +---------+ + + | Performing | Address | City/State/Zipcode | Phone Number | | Organization | | | | + +---------+ + + | EXTERNAL LAB | | | | + +---------+ + + Creatinine, Urine, Random (11/28/2014 12:00 AM PDT) + +-------+ + + + | Component | Value | Ref Range | Performed | Pathologist | | | | | At | Signature | + +-------+ + + + | Creatinine, | 74 | | EXTERNAL | | | 24H Ur | | | LAB | | + +-------+ + + + + + | Specimen | + + | Urine specimen | | (specimen) | + + + +---------+ + + | Performing | Address | City/State/Zipcode | Phone Number | | Organization | | | | + +---------+ + + | EXTERNAL LAB | | | | + +---------+ + + Magnesium (11/28/2014 12:00 AM PDT) + +-------+ + + [...] | | + +---------+ + + Ferritin (11/28/2014 12:00 AM PDT) + + + + + + | Component | Value | Ref Range | Performed | Pathologist | | | | | At | Signature | + + + + + + | Ferritin, | 755.7 (A) | 30 - 400 ng/mL | [...] + +---------+ + + Renal Function Panel (11/28/2014 12:00 AM PDT) + + + + + + | Component | Value | Ref Range | Performed | Pathologist | | | | | At | Signature | + + + + + + | Glucose, | 386 (A) | 70 - 100 mg/dL | EXTERNAL | | | Fasting | | | LAB | | + + + + + + | BUN | 56 (A) | 6 - 23 mg/dL | EXTERNAL | | | | | | LAB | | + + + + + + | Creatinine | 4.17 (A) | 0.70 - 1.18 | EXTERNAL | | | | | mg/dL | LAB | | + + + + + + | PHOSPHORUS | | mg/dL | EXTERNAL | | | | | | LAB | | + + + + + + | Albumin | 14.7 | 7 - 21 | EXTERNAL | | | | | | LAB | | + + + + + + | Na | 133 | 132 - 143 | EXTERNAL | | | | | mmol/L | LAB | | + + + + + + | K | 3.7 | 3.6 - 5.1 | EXTERNAL | | | | | mmol/L | LAB | | + + + + + + | Cl | 98 | 95 - 112 mmol/L | EXTERNAL | | | | | | LAB | | + + + + + + | CO2 | 24 | 19 - 31 mmol/L | EXTERNAL | | | | | | LAB | | + + + + + + | Anion Gap | 14.7 | 7 - 21 mmol/L | EXTERNAL | | | | | | LAB | | + + + + + + | eGFR if not | | | EXTERNAL | | | | | | LAB | | | [facility] [place] | | | | | + + + + + + | Phosphorus, | 4.1 | 2.5 - 5.0 | EXTERNAL | | | Inorganic | | | LAB | | + + + + + + | BUN/Creatin | 13.4 | 6.0 - 28.6 | EXTERNAL | | | ine Ratio | | | LAB | | + + + + + + | Calcium | 9.5 | 8.4 - 10.2 | EXTERNAL | | | | | mg/dL | LAB | | + + + + + + | Estimated | 14 | mg/dL | EXTERNAL | | | [...]
--- OUTSIDE RECORDS SUMMARY | ~2019-12-23 | XMS | Encounter Summary ---
Demographics + + + | Address | [address] | | | [place] [address] | + + + | Home Phone | | + + + | Preferred Language | Unknown | + + + | Marital Status | | + + + | Pentecostal Affiliation | Unknown | + + + | Race | Unknown | + + + | Ethnic Group | Unknown | + + + Author + + + | Author | [facility] | | | and [place] | + + + | Organization | [facility] | | | [...] [address] | | | | | [address] | | + + + + + | Parth Vital | ECON | Unknown | | + + + + + Care Team Providers + +------+ + | Care Comp Field Case Manager Name | Role | Phone | + +------+ + | Star Doll MD | PCP | | + +------+ + Encounter Details +--------+ + + + + | Date | Type | Department | Care Team | Description | +--------+ + + + + | 09/20/ | Orders Only | [facility] | Jeanmarie Ly MD | | | 2013 | | NEPRHOLOGY SOPHIA | [address] | | | | | [address] | [address] [place], [place] | | | | | [address] [place], [place] | [address] | | | | | [address] | | | | | | [phone] | | | +--------+ + + + [...] | EXTERNAL LAB: CBC | Routin | 01/17/2014 | | Results for this | | | e | 12:00 AM | | procedure are in the | | | | PDT | | results section. | + +--------+ + + + | IRON AND IRON | Routin | 01/17/2014 | | Results for this | | BINDING CAPACITY | e | 12:00 AM | | procedure are in the | | | | PDT | | results section. | + +--------+ + + + | URINALYSIS WITH | Routin | 01/17/2014 | | Results for this | | MICROSCOPIC WITH | e | 12:00 AM | | procedure are in the | | CULTURE IF INDICATED | | PDT | | results section. | + +--------+ + + + | TRANSFERRIN | Routin | 01/17/2014 | | Results for this | | | e | 12:00 AM | | procedure are in the | | | | PDT | | results section. | + +--------+ + + + | MAGNESIUM | Routin | 01/17/2014 | | Results for this | | | e | 12:00 AM | | procedure are in the | | | | PDT | | results section. | + +--------+ + + + | RENAL FUNCTION PANEL | Routin | 01/17/2014 | | Results for this | | | e | 12:00 AM | | procedure are in the | | | | PDT | | results section. | + +--------+ + + + | EXTERNAL LAB: [facility] | Routin | 12/20/2013 | | Results for this | | | e | 12:00 AM | | procedure are in the | | | | PDT | | results section. | + +--------+ + + + | IRON AND IRON | Routin | 12/20/2013 | | Results for this | | BINDING CAPACITY | e | 12:00 AM | | procedure are in the | | | | PDT | | results section. | + +--------+ + + + | URINALYSIS WITH | Routin | 12/20/2013 | | Results for this | | MICROSCOPIC WITH | e | 12:00 AM | | procedure are in the | | CULTURE IF INDICATED | | PDT | | results section. | + +--------+ + + + | TRANSFERRIN | Routin | 12/20/2013 | | Results for this | | | e | 12:00 AM | | procedure are in the | | | | PDT | | results section. | + +--------+ + + + | MAGNESIUM | Routin | 12/20/2013 | | Results for this | | | e | 12:00 AM | | procedure are in the | | | | PDT | | results section. | + +--------+ + + + | FERRITIN | Routin | 12/20/2013 | | Results for this | | | e | 12:00 AM | | procedure are in the | | | | PDT | | results section. | + +--------+ + + + | RENAL FUNCTION PANEL | Routin | 12/20/2013 | | Results for this | | | e | 12:00 AM | | procedure are in the | | | | PDT | | results section. | + +--------+ + + + | EXTERNAL LAB: CBC | Routin | 11/15/2013 | | Results for this | | | e | 12:00 AM | | procedure are in the | | | | PDT | | results section. | + +--------+ + + + | IRON AND IRON | Routin | 11/15/2013 | | Results for this | | BINDING CAPACITY | e | 12:00 AM | | procedure are in the | | | | PDT | | results section. | + +--------+ + + + | URINALYSIS WITH | Routin | 11/15/2013 | | Results for this | | MICROSCOPIC WITH | e | 12:00 AM | | procedure are in the | | CULTURE IF INDICATED | | PDT | | results section. | + +--------+ + + + | PARATHYROID HORMONE, | Routin | 11/15/2013 | | Results for this | | INTACT AND CALCIUM | e | 12:00 AM | | procedure are in the | | | | PDT | | results section. | + +--------+ + + + | PROTEIN/CREATININE | Routin | 11/15/2013 | | Results for this | | RATIO, URINE | e | 12:00 AM | | procedure are in the | | | | PDT | | results section. | + +--------+ + + + | PROTEIN, URINE, | Routin | 11/15/2013 | | Results for this | | RANDOM | e | 12:00 AM | | procedure are in the | | | | PDT | | results section. | + +--------+ + + + | CREATININE, URINE, | Routin | 11/15/2013 | | Results for this | | RANDOM | e | 12:00 AM | | procedure are in the | | | | PDT | | results section. | + +--------+ + + + | TRANSFERRIN | Routin | 11/15/2013 | | Results for this | | | e | 12:00 AM | | procedure are in the | | | | PDT | | results section. | + +--------+ + + + | MAGNESIUM | Routin | 11/15/2013 | | Results for this | | | e | 12:00 AM | | procedure are in the | | | | PDT | | results section. | + +--------+ + + + | FERRITIN | Routin | 11/15/2013 | | Results for this | | | e | 12:00 AM | | procedure are in the | | | | PDT | | results section. | + +--------+ + + + | RENAL FUNCTION PANEL | Routin | 11/15/2013 | | Results for this | | | e | 12:00 AM | | procedure are in the | | | | PDT | | results section. | + +--------+ + + + | EXTERNAL LAB: CBC | Routin | 09/20/2013 | | Results for this | | | e | 12:00 AM | | procedure are in the | | | | PDT | | results section. | + +--------+ + + + | IRON AND IRON | Routin | 09/20/2013 | | Results for this | | BINDING CAPACITY | e | 12:00 AM | | procedure are in the | | | | PDT | | results section. | + +--------+ + + + | URINALYSIS WITH | Routin | 09/20/2013 | | Results for this | | MICROSCOPIC WITH | e | 12:00 AM | | procedure are in the | | CULTURE IF INDICATED | | PDT | | results section. | + +--------+ + + + | VITAMIN D, | Routin | 09/20/2013 | | Results for this | | DEFICIENCY SCREEN | e | 12:00 AM | | procedure are in the | | (25-HYDROXY) | | PDT | | results section. | + +--------+ + + + | PARATHYROID HORMONE, | Routin | 09/20/2013 | | Results for this | | INTACT AND CALCIUM | e | 12:00 AM | | procedure are in the | | | | PDT | | results section. | + +--------+ + + + | PROTEIN/CREATININE | Routin | 09/20/2013 | | Results for this | | RATIO, URINE | e | 12:00 AM | | procedure are in the | | | | PDT | | results section. | + +--------+ + + + | PROTEIN, URINE, | Routin | 09/20/2013 | | Results for this | | RANDOM | e | 12:00 AM | | procedure are in the | | | | PDT | | results section. | + +--------+ + + + | CREATININE, URINE, | Routin | 09/20/2013 | | Results for this | | RANDOM | e | 12:00 AM | | procedure are in the | | | | PDT | | results section. | + +--------+ + + + | CULTURE, URINE | Routin | 09/20/2013 | | Results for this | | | e | 12:00 AM | | procedure are in the | | | | PDT | | results section. | + +--------+ + + + | TRANSFERRIN | Routin | 09/20/2013 | | Results for this | | | e | 12:00 AM | | procedure are in the | | | | PDT | | results section. | + +--------+ + + + | FERRITIN | Routin | 09/20/2013 | | Results for this | | | e | 12:00 AM | | procedure are in the | | | | PDT | | results section. | + +--------+ + + + | RENAL FUNCTION PANEL | Routin | 09/20/2013 | | Results for this | | | e | 12:00 AM | | procedure are in the | | | | PDT | | results section. | + +--------+ + + + | LIPID PANEL | Routin | 07/20/2013 | | Results for this | | | e | 12:00 AM | | procedure are in the | | | | PST | | results section. | + +--------+ + + + | HEMOGLOBIN A1C | Routin | 07/20/2013 | | Results for this | | | e | 12:00 AM | | procedure are in the | | | | PST | | results section. | + +--------+ + + + | CREATININE, URINE, | Routin | 07/09/2013 | | Results for this | | 24HR | e | 12:00 AM | | procedure are in the | | | | PST | | results section. | + +--------+ + + + | PROTEIN/CREATININE | Routin | 07/08/2013 | | Results for this | | RATIO, URINE | e | 12:00 AM | | procedure are in the | | | | PST | | results section. | + +--------+ + + + | PROTEIN, URINE, | Routin | 07/08/2013 | | Results for this | | RANDOM | e | 12:00 AM | | procedure are in the | | | | PST | | results section. | + +--------+ + + + | CREATININE, URINE, | Routin | 07/08/2013 | | Results for this | | RANDOM | e | 12:00 AM | | procedure are in the | | | | PST | | results section. | + +--------+ + + + | BASIC METABOLIC | Routin | 06/28/2013 | | Results for this | | PANEL | e | 12:00 AM | | procedure are in the | | | | PST | | results section. | + +--------+ + + + | EXTERNAL LAB: CBC | Routin | 06/21/2013 | | Results for this | | | e | 12:00 AM | | procedure are in the | | | | PST | | results section. | + +--------+ + + + | IRON AND IRON | Routin | 06/21/2013 | | Results for this | | BINDING CAPACITY | e | 12:00 AM | | procedure are in the | | | | PST | | results section. | + +--------+ + + + | URINALYSIS WITH | Routin | 06/21/2013 | | Results for this | | MICROSCOPIC WITH | e | 12:00 AM | | procedure are in the | | CULTURE IF INDICATED | | PST | | results section. | + +--------+ + + + | PROTEIN/CREATININE | Routin | 06/21/2013 | | Results for this | | RATIO, URINE | e | 12:00 AM | | procedure are in the | | | | PST | | results section. | + +--------+ + + + | PROTEIN, URINE, | Routin | 06/21/2013 | | Results for this | | RANDOM | e | 12:00 AM | | procedure are in the | | | | PST | | results section. | + +--------+ + + + | CREATININE, URINE, | Routin | 06/21/2013 | | Results for this | | RANDOM | e | 12:00 AM | | procedure are in the | | | | PST | | results section. | + +--------+ + + + | TRANSFERRIN | Routin | 06/21/2013 | | Results for this | | | e | 12:00 AM | | procedure are in the | | | | PST | | results section. | + +--------+ + + + | MAGNESIUM | Routin | 06/21/2013 | | Results for this | | | e | 12:00 AM | | procedure are in the | | | | PST | | results section. | + +--------+ + + + | FERRITIN | Routin | 06/21/2013 | | Results for this | | | e | 12:00 AM | | procedure are in the | | | | PST | | results section. | + +--------+ + + + | RENAL FUNCTION PANEL | Routin | 06/21/2013 | | Results for this | | | e | 12:00 AM | | procedure are in the | | | | PST | | results section. | + +--------+ + + + documented in this encounter Results Urinalysis with Microscopic with Culture if Indicated (01/17/2014 12:00 AM PDT) + + + + [...] + + + + | Total | 25 | Negative | EXTERNAL | | | Protein | [...] + + | Ketones | Negative | Negative | EXTERNAL | | | | | | LAB | | + + + + + + | Bilirubin, | Negative | | EXTERNAL | | | Urine | | | LAB | | + + + + + + | Glucose, | 1+Comment: 100 | | EXTERNAL | | | Urine [...] + + Iron and Iron Binding Capacity (01/17/2014 12:00 AM PDT) + + + + + + | Component | Value | Ref Range | Performed | Pathologist | | | | | At | Signature | + + + + + + | Iron | 169 (A) | 37 - 160 | EXTERNAL | | | | | | LAB | | + + + + + + | Iron | 67.3 (A) | 20 - 55 | EXTERNAL | | | Saturation | | | LAB | | + + + + + + | TIBC | 251 | 245 - 400 | EXTERNAL | [...] + +---------+ + + External Lab: CBC (01/17/2014 12:00 AM PDT) + + + + + + | Component | Value | Ref Range | Performed | Pathologist | | | | | At | Signature | + + + + + + | WBC | 6.9 | 4.5 - 11.0 10 | EXTERNAL | | | | | | LAB | | + + + + + + | Non- | 1.95 (A) | 4.3 - 5.7 10 | EXTERNAL | | | Red Blood | | | LAB | | | Cells | | | | | | Counted | | | | | + + + + + + | Hemoglobin | 6.0 (A) | 13.5 - 18.0 | EXTERNAL | | | | | g/dL | LAB | | + + + + + + | Hematocrit, | 18.3 (A) | 41 - 50 % | EXTERNAL | | | POC | | | LAB | | + + + + + + | MCV | 93.7 | 81 - 99 fL | EXTERNAL | | | | | | LAB | | + + + + + + | MCH | 31 | 27 - 33 pg | EXTERNAL | | | | | | LAB | | + + + + + + | MCHC | 33 | 30 - 36 g/dL | EXTERNAL | | | | | | LAB | | + + + + + + | Platelet | 258 | 140 - 440 K/ L | EXTERNAL | | | Count | | | LAB | | | Plasma | | | | | + + + + + + | RDW-CV | 16.3 (A) | 10.5 - 15.0 % | EXTERNAL | | | | | | LAB | | + + + + + + | MPV | | fL | EXTERNAL | | | | | | LAB | | + + + + + + | Differentia | Auto | | EXTERNAL | | | l Type | | | LAB | | + + + + + + | % Segmented | 67.4 | 39 - 80 % | EXTERNAL | | | | | | LAB | | | Neutrophils | | | | | + + + + + + | % | 22.9 (A) | 24 - 44 % | EXTERNAL | | | Lymphocytes | | | LAB | | + + + + + + | % Monocytes | 7.7 | 0 - 12 % | EXTERNAL | | | | | | LAB | | + + + + + + | % | 1.1 | 0 - 6 % | EXTERNAL | | | Eosinophils | | | LAB | | + + + + + + | % Basophils | 1.1 | 0 - 2 % | EXTERNAL | | | | | | LAB | | + + + + + + | Absolute | | / L | EXTERNAL | | | Segmented | | | LAB | | | Neutrophils | | | | | + + + + + + | Absolute | | / L | EXTERNAL | | | Lymphocytes | | | LAB | | + + + + + + | Absolute | | / L | EXTERNAL | | | Monocytes | | | LAB | | + + + + + + | Absolute | | / L | EXTERNAL | | | Eosinophils | | | LAB | | + + + + + + | Absolute | | / L | EXTERNAL | | | Basophils | | | LAB | | + [...] | | + +---------+ + + Transferrin (01/17/2014 12:00 AM PDT) + +-------+ + + + | Component | Value | Ref Range | Performed | Pathologist | | | | | At | Signature | + +-------+ + + + | TRANSFERRIN | 179 | | EXTERNAL | | | | [...] | | + +---------+ + + Magnesium (01/17/2014 12:00 AM PDT) + +---------+ + + + | Component | Value | Ref Range | Performed | Pathologist | | | | | At | Signature | + +---------+ + + + | Magnesium | 1.6 (A) | 1.7 - 2.5 mg/dL | EXTERNAL [...] + +---------+ + + Renal Function Panel (01/17/2014 12:00 AM PDT) + + + + + + | Component | Value | Ref Range | Performed | Pathologist | | | | | At | Signature | + + + + + + | Glucose, | 160 (A) | 70 - 100 mg/dL | EXTERNAL | | | Fasting | | | LAB | | + + + + + + | BUN | 95 (A) | 6 - 23 mg/dL | EXTERNAL | | | | | | LAB | | + + + + + + | Creatinine | 4.87 (A) | 0.70 - 1.25 | EXTERNAL | | | | | mg/dL | LAB | | + + + + + + | PHOSPHORUS | | mg/dL | EXTERNAL | | | | | | LAB | | + + + + + + | Albumin | 3.2 (A) | 3.5 - 5.0 | EXTERNAL | | | | | | LAB | | + + + + + + | Na | 142 | 132 - 143 | EXTERNAL | | | | | mmol/L | LAB | | + + + + + + | K | 4.4 | 3.6 - 5.1 | EXTERNAL | | | | | mmol/L | LAB | | + + + + + + | Cl | 109 | 95 - 112 mmol/L | EXTERNAL | | | | | | LAB | | + + + + + + | CO2 | 18 (A) | 19 - 31 mmol/L | EXTERNAL | | | | | | LAB | | + + + + + + | Anion Gap | 19.4 | 7 - 21 mmol/L | EXTERNAL | | | | | | LAB | | + + + + + + | eGFR if not | | | EXTERNAL | | | | | | LAB | | | [place] | | | | | + + + + + + | Phosphorus, | 3.1 | 2.5 - 5.0 | EXTERNAL | | | Inorganic | | | LAB | | + + + + + + | BUN/Creatin | 19.5 | 6.0 - 28.6 | EXTERNAL | | | ine Ratio | | | LAB | | + + + + + + | Calcium | 9.0 | 8.4 - 10.2 | EXTERNAL | | | | | mg/dL | LAB | | + + + + + + | Estimated | 12 | mg/dL | EXTERNAL | | | [...] + +---------+ + + Urinalysis with Microscopic with Culture if Indicated (12/20/2013 12:00 AM PDT) + + + + [...] + + + | Spec Grav, | 1.012 | | EXTERNAL | | | Fluid | [...] + + + + | Total | 75 | | EXTERNAL | | | Protein | | | LAB | | + + + + + + | pH, Urine | 5 | | EXTERNAL | | | | [...] + + Iron and Iron Binding Capacity (12/20/2013 12:00 AM PDT) + +-------+ + + + | Component | Value | Ref Range | Performed | Pathologist | | | | | At | Signature | + +-------+ + + + | Iron | 92 | | EXTERNAL | | | | | | LAB | | + +-------+ + + + | Iron | 24.1 | | EXTERNAL | | | Saturation | | | LAB | | + +-------+ + + + | TIBC | 381 | | EXTERNAL | | | | [...] + +---------+ + + External Lab: CBC (12/20/2013 12:00 AM PDT) + +-------+ + + + | Component | Value | Ref Range | Performed | Pathologist | | | | | At | Signature | + +-------+ + + + | WBC | 7.7 | 10 | EXTERNAL | | | | | | LAB | | + +-------+ + + + | Non- | 3.14 | 10 | EXTERNAL | | | Red Blood | | | LAB | | | Cells | | | | | | Counted | | | | | + +-------+ + + + | Hemoglobin | 9.7 | g/dL | EXTERNAL | | | | | | LAB | | + +-------+ + + + | Hematocrit, | 29.1 | % | EXTERNAL | | | POC | | | LAB | | + +-------+ + + + | MCV | 93.9 | fL | EXTERNAL | | | | | | LAB | | + +-------+ + + + | MCH | 31 | pg | EXTERNAL | | | | | | LAB | | + +-------+ + + + | MCHC | 33 | g/dL | EXTERNAL | | | | | | LAB | | + +-------+ + + + | Platelet | 237 | K/ L | EXTERNAL | | | Count | | | LAB | | | Plasma | | | | | + +-------+ + + + | RDW-CV | 15.3 | % | EXTERNAL | | | | | | LAB | | + +-------+ + + + | MPV | | fL | EXTERNAL | | | | | | LAB | | + +-------+ + + + | Differentia | Auto | | EXTERNAL | | | l Type | | | LAB | | + +-------+ + + + | % Segmented | 73.9 | % | EXTERNAL | | | | | | LAB | | | Neutrophils | | | | | + +-------+ + + + | % | 16.9 | % | EXTERNAL | | | Lymphocytes | | | LAB | | + +-------+ + + + | % Monocytes | 7.1 | % | EXTERNAL | | | | | | LAB | | + +-------+ + + + | % | 1.0 | % | EXTERNAL | | | Eosinophils | | | LAB | | + +-------+ + + + | % Basophils | 1.0 | % | EXTERNAL | | | | | | LAB | | + +-------+ + + + | Absolute | | / L | EXTERNAL | | | Segmented | | | LAB | | | Neutrophils | | | | | + +-------+ + + + | Absolute | | / L | EXTERNAL | | | Lymphocytes | | | LAB | | + +-------+ + + + | Absolute | | / L | EXTERNAL | | | Monocytes | | | LAB | | + +-------+ + + + | Absolute | | / L | EXTERNAL | | | Eosinophils | | | LAB | | + +-------+ + + + | Absolute | | / L | EXTERNAL | | | Basophils | | | LAB | | + +-------+ + + + + + | Specimen | + + | Blood specimen | | (specimen) | + + + +---------+ + + | Performing | Address | City/State/Zipcode | Phone Number | | Organization | | | | + +---------+ + + | EXTERNAL LAB | | | | + +---------+ + + Transferrin (12/20/2013 12:00 AM PDT) + +-------+ + + + | Component | Value | Ref Range | Performed | Pathologist | | | | | At | Signature | + +-------+ + + + | TRANSFERRIN | 272 | | EXTERNAL | | | | [...] | | + +---------+ + + Magnesium (12/20/2013 12:00 AM PDT) + +-------+ + + + | Component | Value | Ref Range | Performed | Pathologist | | | | | At | Signature | + +-------+ + + + | Magnesium | 2.2 | mg/dL | EXTERNAL | | | [...] | | + +---------+ + + Ferritin (12/20/2013 12:00 AM PDT) + +-------+ + + + | Component | Value | Ref Range | Performed | Pathologist | | | | | At | Signature | + +-------+ + + + | Ferritin, | 1,210 | ng/mL | EXTERNAL | | | External [...] + +---------+ + + Renal Function Panel (12/20/2013 12:00 AM PDT) + +-------+ + + + | Component | Value | Ref Range | Performed | Pathologist | | | | | At | Signature | + +-------+ + + + | Glucose, | 147 | mg/dL | EXTERNAL | | | Fasting | | | LAB | | + +-------+ + + + | BUN | 68 | mg/dL | EXTERNAL | | | | | | LAB | | + +-------+ + + + | Creatinine | 5.97 | mg/dL | EXTERNAL | | | | | | LAB | | + +-------+ + + + | PHOSPHORUS | | mg/dL | EXTERNAL | | | | | | LAB | | + +-------+ + + + | Albumin | 4.1 | | EXTERNAL | | | | | | LAB | | + +-------+ + + + | Na | 139 | mmol/L | EXTERNAL | | | | | | LAB | | + +-------+ + + + | K | 3.8 | mmol/L | EXTERNAL | | | | | | LAB | | + +-------+ + + + | Cl | 108 | mmol/L | EXTERNAL | | | | | | LAB | | + +-------+ + + + | CO2 | 16 | mmol/L | EXTERNAL | | | | | | LAB | | + +-------+ + + + | Anion Gap | 18.8 | mmol/L | EXTERNAL | | | | | | LAB | | + +-------+ + + + | eGFR if not | | | EXTERNAL | | | | | | LAB | | | [place] | | | | | + +-------+ + + + | Phosphorus, | 5.2 | | EXTERNAL | | | Inorganic | | | LAB | | + +-------+ + + + | BUN/Creatin | 11.4 | | EXTERNAL | | | ine Ratio | | | LAB | | + +-------+ + + + | Calcium | 9.4 | mg/dL | EXTERNAL | | | | | | LAB | | + +-------+ + + + | Estimated | 9 | mg/dL | EXTERNAL | | | [...] + +---------+ + + Urinalysis with Microscopic with Culture if Indicated (11/15/2013 12:00 AM PDT) + + + + [...] + + + | Spec Grav, | 1.015 | | EXTERNAL | | | Fluid | [...] + + + + | Total | 150 | | EXTERNAL | | | Protein | | | LAB | | + + + + + + | pH, Urine | 5 | | EXTERNAL | | | | | | LAB | | + + + + + + | Blood, | PositiveComment: 10 | | EXTERNAL | | | Urine | | | LAB | | + + + + + + | Ketones | Negaive | | EXTERNAL | | | | [...] + + Iron and Iron Binding Capacity (11/15/2013 12:00 AM PDT) + +-------+ + + + | Component | Value | Ref Range | Performed | Pathologist | | | | | At | Signature | + +-------+ + + + | Iron | 80 | | EXTERNAL | | | | | | LAB | | + +-------+ + + + | Iron | 21.0 | | EXTERNAL | | | Saturation | | | LAB | | + +-------+ + + + | TIBC | 381 | | EXTERNAL | | | | [...] + + Parathyroid Hormone, Intact and Calcium (11/15/2013 12:00 AM PDT) + +-------+ + + + | Component | Value | Ref Range | Performed | Pathologist | | | | | At | Signature | + +-------+ + + + | PTH Intact | 38.19 | | EXTERNAL | | | | | | LAB | | + +-------+ + + + | Calcium | 9.4 | | EXTERNAL | | | | [...] + +---------+ + + Protein/Creatinine Ratio, Urine (11/15/2013 12:00 AM PDT) + +--------+ + + + | Component | Value | Ref Range | Performed | Pathologist | | | | | At | Signature | + +--------+ + + + | Protein/Cre | 1650.0 | | EXTERNAL | | | at Ratio [...] + +---------+ + + Protein, Urine, Random (11/15/2013 12:00 AM PDT) + +-------+ + + + | Component | Value | Ref Range | Performed | Pathologist | | | | | At | Signature | + +-------+ + + + | Protein, | 231 | | EXTERNAL | | | Urine [...] + +---------+ + + Creatinine, Urine, Random (11/15/2013 12:00 AM PDT) + +-------+ + + + | Component | Value | Ref Range | Performed | Pathologist | | | | | At | Signature | + +-------+ + + + | Creatinine, | 140 | | EXTERNAL | | | 24H [...] + +---------+ + + External Lab: CBC (11/15/2013 12:00 AM PDT) + +-------+ + + + | Component | Value | Ref Range | Performed | Pathologist | | | | | At | Signature | + +-------+ + + + | WBC | 7.0 | 10 | EXTERNAL | | | | | | LAB | | + +-------+ + + + | Non- | 2.87 | 10 | EXTERNAL | | | Red Blood | | | LAB | | | Cells | | | | | | Counted | | | | | + +-------+ + + + | Hemoglobin | 9.2 | g/dL | EXTERNAL | | | | | | LAB | | + +-------+ + + + | Hematocrit, | 26.7 | % | EXTERNAL | | | POC | | | LAB | | + +-------+ + + + | MCV | 93.2 | fL | EXTERNAL | | | | | | LAB | | + +-------+ + + + | MCH | 32 | pg | EXTERNAL | | | | | | LAB | | + +-------+ + + + | MCHC | 34 | g/dL | EXTERNAL | | | | | | LAB | | + +-------+ + + + | Platelet | 267 | K/ L | EXTERNAL | | | Count | | | LAB | | | Plasma | | | | | + +-------+ + + + | RDW-CV | 15.1 | % | EXTERNAL | | | | | | LAB | | + +-------+ + + + | MPV | | fL | EXTERNAL | | | | | | LAB | | + +-------+ + + + | Differentia | Auto | | EXTERNAL | | | l Type | | | LAB | | + +-------+ + + + | % Segmented | 73.4 | % | EXTERNAL | | | | | | LAB | | | Neutrophils | | | | | + +-------+ + + + | % | 15.0 | % | EXTERNAL | | | Lymphocytes | | | LAB | | + +-------+ + + + | % Monocytes | 8.8 | % | EXTERNAL | | | | | | LAB | | + +-------+ + + + | % | 1.7 | % | EXTERNAL | | | Eosinophils | | | LAB | | + +-------+ + + + | % Basophils | 1.1 | % | EXTERNAL | | | | | | LAB | | + +-------+ + + + | Absolute | | / L | EXTERNAL | | | Segmented | | | LAB | | | Neutrophils | | | | | + +-------+ + + + | Absolute | | / L | EXTERNAL | | | Lymphocytes | | | LAB | | + +-------+ + + + | Absolute | | / L | EXTERNAL | | | Monocytes | | | LAB | | + +-------+ + + + | Absolute | | / L | EXTERNAL | | | Eosinophils | | | LAB | | + +-------+ + + + | Absolute | | / L | EXTERNAL | | | Basophils | | | LAB | | + +-------+ + + + + + | Specimen | + + | Blood specimen | | (specimen) | + + + +---------+ + + | Performing | Address | City/State/Zipcode | Phone Number | | Organization | | | | + +---------+ + + | EXTERNAL LAB | | | | + +---------+ + + Transferrin (11/15/2013 12:00 AM PDT) + +-------+ + + + | Component | Value | Ref Range | Performed | Pathologist | | | | | At | Signature | + +-------+ + + + | TRANSFERRIN | 272 | | EXTERNAL | | | | [...] | | + +---------+ + + Magnesium (11/15/2013 12:00 AM PDT) + +-------+ + + + | Component | Value | Ref Range | Performed | Pathologist | | | | | At | Signature | + +-------+ + + + | Magnesium | 2.0 | mg/dL | EXTERNAL | | | [...] | | + +---------+ + + Ferritin (11/15/2013 12:00 AM PDT) + +-------+ + + + | Component | Value | Ref Range | Performed | Pathologist | | | | | At | Signature | + +-------+ + + + | Ferritin, | 981.9 | ng/mL | EXTERNAL | | | External [...] + +---------+ + + Renal Function Panel (11/15/2013 12:00 AM PDT) + +-------+ + + + | Component | Value | Ref Range | Performed | Pathologist | | | | | At | Signature | + +-------+ + + + | Glucose, | 182 | mg/dL | EXTERNAL | | | Fasting | | | LAB | | + +-------+ + + + | BUN | 56 | mg/dL | EXTERNAL | | | | | | LAB | | + +-------+ + + + | Creatinine | 5.38 | mg/dL | EXTERNAL | | | | | | LAB | | + +-------+ + + + | PHOSPHORUS | | mg/dL | EXTERNAL | | | | | | LAB | | + +-------+ + + + | Albumin | 3.7 | | EXTERNAL | | | | | | LAB | | + +-------+ + + + | Na | 136 | mmol/L | EXTERNAL | | | | | | LAB | | + +-------+ + + + | K | 3.8 | mmol/L | EXTERNAL | | | | | | LAB | | + +-------+ + + + | Cl | 105 | mmol/L | EXTERNAL | | | | | | LAB | | + +-------+ + + + | CO2 | 21 | mmol/L | EXTERNAL | | | | | | LAB | | + +-------+ + + + | Anion Gap | 13.8 | mmol/L | EXTERNAL | | | | | | LAB | | + +-------+ + + + | eGFR if not | | | EXTERNAL | | | | | | LAB | | | [place] | | | | | + +-------+ + + + | Phosphorus, | 4.4 | | EXTERNAL | | | Inorganic | | | LAB | | + +-------+ + + + | BUN/Creatin | 10.4 | | EXTERNAL | | | ine Ratio | | | LAB | | + +-------+ + + + | Calcium | 9.4 | mg/dL | EXTERNAL | | | | | | LAB | | + +-------+ + + + | Estimated | 11 | mg/dL | EXTERNAL | | | [...] + +---------+ + + Urinalysis with Microscopic with Culture if Indicated (09/20/2013 12:00 AM PDT) + + + + [...] + + + | Spec Grav, | 1.015 | | EXTERNAL | | | Fluid | [...] + + + + | Total | 150 | | EXTERNAL | | | Protein | | | LAB | | + + + + + + | pH, Urine | 5 | | EXTERNAL | | | | [...] + + + + | Glucose, | 1+Comment: 100 | | EXTERNAL | | | Urine [...] + + Iron and Iron Binding Capacity (09/20/2013 12:00 AM PDT) + +-------+ + + + | Component | Value | Ref Range | Performed | Pathologist | | | | | At | Signature | + +-------+ + + + | Iron | 60 | | EXTERNAL | | | | | | LAB | | + +-------+ + + + | Iron | 15.2 | | EXTERNAL | | | Saturation | | | LAB | | + +-------+ + + + | TIBC | 395 | | EXTERNAL | | | | [...] + + Parathyroid Hormone, Intact and Calcium (09/20/2013 12:00 AM PDT) + +-------+ + + + | Component | Value | Ref Range | Performed | Pathologist | | | | | At | Signature | + +-------+ + + + | PTH Intact | 14.68 | | EXTERNAL | | | | | | LAB | | + +-------+ + + + | Calcium | 9.5 | | EXTERNAL | | | | [...] + +---------+ + + Protein/Creatinine Ratio, Urine (09/20/2013 12:00 AM PDT) + +--------+ + + + | Component | Value | Ref Range | Performed | Pathologist | | | | | At | Signature | + +--------+ + + + | Protein/Cre | 1371.4 | | EXTERNAL | | | at Ratio [...] + +---------+ + + Protein, Urine, Random (09/20/2013 12:00 AM PDT) + +-------+ + + + | Component | Value | Ref Range | Performed | Pathologist | | | | | At | Signature | + +-------+ + + + | Protein, | 192 | | EXTERNAL | | | Urine [...] + +---------+ + + Creatinine, Urine, Random (09/20/2013 12:00 AM PDT) + +-------+ + + + | Component | Value | Ref Range | Performed | Pathologist | | | | | At | Signature | + +-------+ + + + | Creatinine, | 140 | | EXTERNAL | | | 24H [...] + + Vitamin D, Deficiency Screen (25-Hydroxy) (09/20/2013 12:00 AM PDT) + +-------+ + + + | Component | Value | Ref Range | Performed | Pathologist | | | | | At | Signature | + +-------+ + + + | Vit D, | 65 | | EXTERNAL | | | 25-Hydroxy | [...] + +---------+ + + External Lab: CBC (09/20/2013 12:00 AM PDT) + +-------+ + + + | Component | Value | Ref Range | Performed | Pathologist | | | | | At | Signature | + +-------+ + + + | WBC | 5.7 | 10 | EXTERNAL | | | | | | LAB | | + +-------+ + + + | Non- | 2.65 | 10 | EXTERNAL | | | Red Blood | | | LAB | | | Cells | | | | | | Counted | | | | | + +-------+ + + + | Hemoglobin | 8.3 | g/dL | EXTERNAL | | | | | | LAB | | + +-------+ + + + | Hematocrit, | 24.8 | % | EXTERNAL | | | POC | | | LAB | | + +-------+ + + + | MCV | 93.6 | fL | EXTERNAL | | | | | | LAB | | + +-------+ + + + | MCH | 31 | pg | EXTERNAL | | | | | | LAB | | + +-------+ + + + | MCHC | 33 | g/dL | EXTERNAL | | | | | | LAB | | + +-------+ + + + | Platelet | 223 | K/ L | EXTERNAL | | | Count | | | LAB | | | Plasma | | | | | + +-------+ + + + | RDW-CV | 16.1 | % | EXTERNAL | | | | | | LAB | | + +-------+ + + + | MPV | | fL | EXTERNAL | | | | | | LAB | | + +-------+ + + + | Differentia | Auto | | EXTERNAL | | | l Type | | | LAB | | + +-------+ + + + | % Segmented | 75.2 | % | EXTERNAL | | | | | | LAB | | | Neutrophils | | | | | + +-------+ + + + | % | 13.7 | % | EXTERNAL | | | Lymphocytes | | | LAB | | + +-------+ + + + | % Monocytes | 8.5 | % | EXTERNAL | | | | | | LAB | | + +-------+ + + + | % | 1.5 | % | EXTERNAL | | | Eosinophils | | | LAB | | + +-------+ + + + | % Basophils | 1.1 | % | EXTERNAL | | | | | | LAB | | + +-------+ + + + | Absolute | | / L | EXTERNAL | | | Segmented | | | LAB | | | Neutrophils | | | | | + +-------+ + + + | Absolute | | / L | EXTERNAL | | | Lymphocytes | | | LAB | | + +-------+ + + + | Absolute | | / L | EXTERNAL | | | Monocytes | | | LAB | | + +-------+ + + + | Absolute | | / L | EXTERNAL | | | Eosinophils | | | LAB | | + +-------+ + + + | Absolute | | / L | EXTERNAL | | | Basophils | | | LAB | | + +-------+ + + + + + | Specimen | + + | Blood specimen | | (specimen) | + + + +---------+ + + | Performing | Address | City/State/Zipcode | Phone Number | | Organization | | | | + +---------+ + + | EXTERNAL LAB | | | | + +---------+ + + Transferrin (09/20/2013 12:00 AM PDT) + +-------+ + + + | Component | Value | Ref Range | Performed | Pathologist | | | | | At | Signature | + +-------+ + + + | TRANSFERRIN | 282 | | EXTERNAL | | | | [...] | | + +---------+ + + Ferritin (09/20/2013 12:00 AM PDT) + +-------+ + + + | Component | Value | Ref Range | Performed | Pathologist | | | | | At | Signature | + +-------+ + + + | Ferritin, | 758.7 | ng/mL | EXTERNAL | | | External [...] + +---------+ + + Renal Function Panel (09/20/2013 12:00 AM PDT) + +-------+ + + + | Component | Value | Ref Range | Performed | Pathologist | | | | | At | Signature | + +-------+ + + + | Glucose, | 200 | mg/dL | EXTERNAL | | | Fasting | | | LAB | | + +-------+ + + + | BUN | 53 | mg/dL | EXTERNAL | | | | | | LAB | | + +-------+ + + + | Creatinine | 4.77 | mg/dL | EXTERNAL | | | | | | LAB | | + +-------+ + + + | PHOSPHORUS | | mg/dL | EXTERNAL | | | | | | LAB | | + +-------+ + + + | Albumin | 4.0 | | EXTERNAL | | | | | | LAB | | + +-------+ + + + | Na | 137 | mmol/L | EXTERNAL | | | | | | LAB | | + +-------+ + + + | K | 3.9 | mmol/L | EXTERNAL | | | | | | LAB | | + +-------+ + + + | Cl | 104 | mmol/L | EXTERNAL | | | | | | LAB | | + +-------+ + + + | CO2 | 22 | mmol/L | EXTERNAL | | | | | | LAB | | + +-------+ + + + | Anion Gap | 14.9 | mmol/L | EXTERNAL | | | | | | LAB | | + +-------+ + + + | eGFR if not | | | EXTERNAL | | | | | | LAB | | | [place] | | | | | + +-------+ + + + | Phosphorus, | 4.7 | | EXTERNAL | | | Inorganic | | | LAB | | + +-------+ + + + | BUN/Creatin | 11.1 | | EXTERNAL | | | ine Ratio | | | LAB | | + +-------+ + + + | Calcium | 9.5 | mg/dL | EXTERNAL | | | | | | LAB | | + +-------+ + + + | Estimated | 12 | mg/dL | EXTERNAL | | | [...] | | | + +---------+ + + Culture, Urine (09/20/2013 12:00 AM PDT) + + | Specimen | + + | Urine specimen | | (specimen) | + + + + + | Narrative | Performed At | + + + | Specimen Description Urine CULTURE | EXTERNAL LAB | | No Growth at 18-24 hrs. REPORT | | | STATUS Final | | + + + + +---------+ + + | Performing | Address | City/State/Zipcode | Phone Number | | Organization | | | | + +---------+ + + | EXTERNAL LAB | | | | + +---------+ + + Hemoglobin A1C (07/20/2013 12:00 AM PST) + +-------+ + + + | Component | Value | Ref Range | Performed | Pathologist | | | | | At | Signature | + +-------+ + + + | Hemoglobin | 5.9 | % | EXTERNAL | | | A1c | | | LAB | | + +-------+ + + + + + | Specimen | + + | | + + + +---------+ + + | Performing | Address | City/State/Zipcode | Phone Number | | Organization | | | | + +---------+ + + | EXTERNAL LAB | | | | + +---------+ + + Lipid Panel (07/20/2013 12:00 AM PST) + +-------+ + + + | Component | Value | Ref Range | Performed | Pathologist | | | | | At | Signature | + +-------+ + + + | Cholesterol | 101 | mg/dL | EXTERNAL | | | | | | LAB | | + +-------+ + + + | Triglycerid | 113 | mg/dL | EXTERNAL | | | es | | | LAB | | + +-------+ + + + | HDL | 25.3 | mg/dl | EXTERNAL | | | | | | LAB | | + +-------+ + + + | LDL, | 53 | mg/dL | EXTERNAL | | | Calculated | | | LAB | | + +-------+ + + + | LDl/HDL | | | EXTERNAL | | | Ratio | | | LAB | | + +-------+ + + + | Chol/HDL | 4.0 | | EXTERNAL | | | Ratio | | | LAB | | + +-------+ + + + | VLDL | 23 | mg/dL | EXTERNAL | | | | | | LAB | | + +-------+ + + + | Non HDL | 76 | | EXTERNAL | | | Chol. | | | LAB | | | (LDL+VLDL) | | | | | + +-------+ + + + + + | Specimen | + + | Blood specimen | | (specimen) | + + + +---------+ + + | Performing | Address | City/State/Zipcode | Phone Number | | Organization | | | | + +---------+ + + | EXTERNAL LAB | | | | + +---------+ + + Creatinine, Urine, 24Hr (07/09/2013 12:00 AM PST) + +-------+ + + + | Component | Value | Ref Range | Performed | Pathologist | | | | | At | Signature | + +-------+ + + + | CREATININE | 13 | mL/min | EXTERNAL | | | CLEARANCE | | | LAB | | + +-------+ + + + | Creatinine | 4.84 | | EXTERNAL | | | | | | LAB | | + +-------+ + + + | Creatinine, | 69 | | EXTERNAL | | | Urine, | | | LAB | | | Random | | | | | + +-------+ + + + | Creatinine, | | | EXTERNAL | | | Urine, | | | LAB | | | Random | | | | | + +-------+ + + + + + | Specimen | + + | Urine specimen | | (specimen) | + + + +---------+ + + | Performing | Address | City/State/Zipcode | Phone Number | | Organization | | | | + +---------+ + + | EXTERNAL LAB | | | | + +---------+ + + Protein/Creatinine Ratio, Urine (07/08/2013 12:00 AM PST) + +--------+ + + + | Component | Value | Ref Range | Performed | Pathologist | | | | | At | Signature | + +--------+ + + + | Protein/Cre | 2215.7 | | EXTERNAL | | | at Ratio [...] + +---------+ + + Protein, Urine, Random (07/08/2013 12:00 AM PST) + +-------+ + + + | Component | Value | Ref Range | Performed | Pathologist | | | | | At | Signature | + +-------+ + + + | Protein, | 226 | | EXTERNAL | | | Urine [...] + +---------+ + + Creatinine, Urine, Random (07/08/2013 12:00 AM PST) + +-------+ + + + | Component | Value | Ref Range | Performed | Pathologist | | | | | At | Signature | + +-------+ + + + | Creatinine, | 102 | | EXTERNAL | | | 24H [...] + +---------+ + + Basic Metabolic Panel (06/28/2013 12:00 AM PST) + +-------+ + + + | Component | Value | Ref Range | Performed | Pathologist | | | | | At | Signature | + +-------+ + + + | Glucose, | 142 | mg/dL | EXTERNAL | | | Fasting | | | LAB | | + +-------+ + + + | BUN | 70 | mg/dL | EXTERNAL | | | | | | LAB | | + +-------+ + + + | Creatinine | 5.37 | mg/dL | EXTERNAL | | | | | | LAB | | + +-------+ + + + | BUN/Creatin | 13.0 | | EXTERNAL | | | ine Ratio | | | LAB | | + +-------+ + + + | Calcium | 9.2 | mg/dL | EXTERNAL | | | | | | LAB | | + +-------+ + + + | Na | 138 | mmol/L | EXTERNAL | | | | | | LAB | | + +-------+ + + + | K | 4.2 | mmol/L | EXTERNAL | | | | | | LAB | | + +-------+ + + + | Cl | 108 | mmol/L | EXTERNAL | | | | | | LAB | | + +-------+ + + + | CO2 | 22 | mmol/L | EXTERNAL | | | | | | LAB | | + +-------+ + + + | Anion Gap | 12.2 | mmol/L | EXTERNAL | | | | | | LAB | | + +-------+ + + + | Estimated | 11 | mg/dL | EXTERNAL | | | [...] + +---------+ + + Urinalysis with Microscopic with Culture if Indicated (06/21/2013 12:00 AM PST) + + + + + + [...] + | Spec Grav, | 1.013 | | EXTERNAL | | | Fluid | [...] + + + + | Total | 150 | | EXTERNAL | | | Protein | | | LAB | | + + + + + + | pH, Urine | 5 | | EXTERNAL | | | | [...] + + + + | Glucose, | 1+Comment: 100 | | EXTERNAL | | | Urine [...] + + Iron and Iron Binding Capacity (06/21/2013 12:00 AM PST) + +-------+ + + + | Component | Value | Ref Range | Performed | Pathologist | | | | | At | Signature | + +-------+ + + + | Iron | 93 | | EXTERNAL | | | | | | LAB | | + +-------+ + + + | Iron | 22.1 | | EXTERNAL | | | Saturation | | | LAB | | + +-------+ + + + | TIBC | 421 | | EXTERNAL | | | | [...] + +---------+ + + Protein/Creatinine Ratio, Urine (06/21/2013 12:00 AM PST) + +--------+ + + + | Component | Value | Ref Range | Performed | Pathologist | | | | | At | Signature | + +--------+ + + + | Protein/Cre | 2041.3 | | EXTERNAL | | | at Ratio [...] + +---------+ + + Protein, Urine, Random (06/21/2013 12:00 AM PST) + +-------+ + + + | Component | Value | Ref Range | Performed | Pathologist | | | | | At | Signature | + +-------+ + + + | Protein, | 247 | | EXTERNAL | | | Urine [...] + +---------+ + + Creatinine, Urine, Random (06/21/2013 12:00 AM PST) + +-------+ + + + | Component | Value | Ref Range | Performed | Pathologist | | | | | At | Signature | + +-------+ + + + | Creatinine, | 121 | | EXTERNAL | | | 24H [...] + +---------+ + + External Lab: CBC (06/21/2013 12:00 AM PST) + +-------+ + + + | Component | Value | Ref Range | Performed | Pathologist | | | | | At | Signature | + +-------+ + + + | WBC | 5.5 | 10 | EXTERNAL | | | | | | LAB | | + +-------+ + + + | Non- | 2.86 | 10 | EXTERNAL | | | Red Blood | | | LAB | | | Cells | | | | | | Counted | | | | | + +-------+ + + + | Hemoglobin | 8.9 | g/dL | EXTERNAL | | | | | | LAB | | + +-------+ + + + | Hematocrit, | 26.3 | % | EXTERNAL | | | POC | | | LAB | | + +-------+ + + + | MCV | 91.9 | fL | EXTERNAL | | | | | | LAB | | + +-------+ + + + | MCH | 31 | pg | EXTERNAL | | | | | | LAB | | + +-------+ + + + | MCHC | 34 | g/dL | EXTERNAL | | | | | | LAB | | + +-------+ + + + | Platelet | 205 | K/ L | EXTERNAL | | | Count | | | LAB | | | Plasma | | | | | + +-------+ + + + | RDW-CV | 15.6 | % | EXTERNAL | | | | | | LAB | | + +-------+ + + + | MPV | | fL | EXTERNAL | | | | | | LAB | | + +-------+ + + + | Differentia | Auto | | EXTERNAL | | | l Type | | | LAB | | + +-------+ + + + | % Segmented | 67.4 | % | EXTERNAL | | | | | | LAB | | | Neutrophils | | | | | + +-------+ + + + | % | 19.4 | % | EXTERNAL | | | Lymphocytes | | | LAB | | + +-------+ + + + | % Monocytes | 9.9 | % | EXTERNAL | | | | | | LAB | | + +-------+ + + + | % | 2.2 | % | EXTERNAL | | | Eosinophils | | | LAB | | + +-------+ + + + | % Basophils | 1.1 | % | EXTERNAL | | | | | | LAB | | + +-------+ + + + | Absolute | | / L | EXTERNAL | | | Segmented | | | LAB | | | Neutrophils | | | | | + +-------+ + + + | Absolute | | / L | EXTERNAL | | | Lymphocytes | | | LAB | | + +-------+ + + + | Absolute | | / L | EXTERNAL | | | Monocytes | | | LAB | | + +-------+ + + + | Absolute | | / L | EXTERNAL | | | Eosinophils | | | LAB | | + +-------+ + + + | Absolute | | / L | EXTERNAL | | | Basophils | | | LAB | | + +-------+ + + + + + | Specimen | + + | Blood specimen | | (specimen) | + + + +---------+ + + | Performing | Address | City/State/Zipcode | Phone Number | | Organization | | | | + +---------+ + + | EXTERNAL LAB | | | | + +---------+ + + Transferrin (06/21/2013 12:00 AM PST) + +-------+ + + + | Component | Value | Ref Range | Performed | Pathologist | | | | | At | Signature | + +-------+ + + + | TRANSFERRIN | 301 | | EXTERNAL | | | | [...] | | + +---------+ + + Magnesium (06/21/2013 12:00 AM PST) + +-------+ + + + | Component | Value | Ref Range | Performed | Pathologist | | | | | At | Signature | + +-------+ + + + | Magnesium | 2.3 | mg/dL | EXTERNAL | | | [...] | | + +---------+ + + Ferritin (06/21/2013 12:00 AM PST) + +-------+ + + + | Component | Value | Ref Range | Performed | Pathologist | | | | | At | Signature | + +-------+ + + + | Ferritin, | 784.0 | ng/mL | EXTERNAL | | | External [...] + +---------+ + + Renal Function Panel (06/21/2013 12:00 AM PST) + +-------+ + + + | Component | Value | Ref Range | Performed | Pathologist | | | | | At | Signature | + +-------+ + + + | Glucose, | 66 | mg/dL | EXTERNAL | | | Fasting | | | LAB | | + +-------+ + + + | BUN | 61 | mg/dL | EXTERNAL | | | | | | LAB | | + +-------+ + + + | Creatinine | 5.07 | mg/dL | EXTERNAL | | | | | | LAB | | + +-------+ + + + | PHOSPHORUS | | mg/dL | EXTERNAL | | | | | | LAB | | + +-------+ + + + | Albumin | 4.0 | | EXTERNAL | | | | | | LAB | | + +-------+ + + + | Na | 141 | mmol/L | EXTERNAL | | | | | | LAB | | + +-------+ + + + | K | 4.0 | mmol/L | EXTERNAL | | | | | | LAB | | + +-------+ + + + | Cl | 108 | mmol/L | EXTERNAL | | | | | | LAB | | + +-------+ + + + | CO2 | 23 | mmol/L | EXTERNAL | | | | | | LAB | | + +-------+ + + + | Anion Gap | 14.0 | mmol/L | EXTERNAL | | | | | | LAB | | + +-------+ + + + | eGFR if not | | | EXTERNAL | | | | | | LAB | | | [place] | | | | | + +-------+ + + + | Phosphorus, | 5.0 | | EXTERNAL | | | Inorganic | | | LAB | | + +-------+ + + + | BUN/Creatin | 12.0 | | EXTERNAL | | | ine Ratio | | | LAB | | + +-------+ + + + | Calcium | 9.6 | mg/dL | EXTERNAL | | | | | | LAB | | + +-------+ + + + | Estimated | 11 | mg/dL | EXTERNAL | | | [...]
--- OUTSIDE RECORDS SUMMARY | ~2019-12-23 | XMS | Encounter Summary ---
Demographics + + + | Address | [address] | | | [place] [address] | + + + | Home Phone | | + + + | Preferred Language | Unknown | + + + | Marital Status | | + + + | Zoroastrian Affiliation | Unknown | + + + | Race | Unknown | + + + | Ethnic Group | Unknown | + + + Author + + + | Author | [facility] | | | and [place] | + + + | Organization | [facility] | | [...] [address] | | | | | [address] | | + + + + + | Parth Vital | ECON | Unknown | | + + + + + Care Team Providers + +------+ + | Care Compass Operator Name | Role | Phone | + +------+ + | Star Doll MD | PCP | | + +------+ + Encounter Details +--------+ + + + + | Date | Type | Department | Care Team | Description | +--------+ + + + + | 05/15/ | Orders Only | [facility] | Jeanmarie Ly MD | | | 2014 | | NEPRHOLOGY [place] | [address] | | | | | [address] | [address] [place], [place] | | | | | [address] [place], [place] | [address] | | | | | [address] | | | | | | [phone] | | | +--------+ + + + [...] | RENAL FUNCTION PANEL | Routin | 05/15/2015 | | Results for this | | | e | 12:00 AM | | procedure are in the | | | | PST | | results section. | + +--------+ + + + documented in this encounter Results Renal Function Panel (05/15/2015 12:00 AM PST) + + + + + + | Component | Value | Ref Range | Performed | Pathologist | | | | | At | Signature | + + + + + + | Glucose, | 253 (A) | 70 - 100 mg/dL | EXTERNAL | | | Fasting | | | LAB | | + + + + + + | BUN | 59 (A) | 6 - 23 mg/dL | EXTERNAL | | | | | | LAB | | + + + + + + | Creatinine | 5.33 (A) | 0.70 - 1.18 | EXTERNAL | | | | | mg/dL | LAB | | + + + + + + | PHOSPHORUS | | mg/dL | EXTERNAL | | | | | | LAB | | + + + + + + | Albumin | 4.0 | 3.5 - 5.0 | EXTERNAL | | | | | | LAB | | + + + + + + | Na | 137 | 132 - 143 | EXTERNAL | | | | | mmol/L | LAB | | + + + + + + | K | 4.1 | 3.6 - 5.1 | EXTERNAL | | | | | mmol/L | LAB | | + + + + + + | Cl | 102 | 95 - 112 mmol/L | EXTERNAL | | | | | | LAB | | + + + + + + | CO2 | 23 | 19 - 31 mmol/L | EXTERNAL | | | | | | LAB | | + + + + + + | Anion Gap | 16.1 | 7 - 21 mmol/L | EXTERNAL | | | | | | LAB | | + + + + + + | eGFR if not | | | EXTERNAL | | | | | | LAB | | | [place] | | | | | + + + + + + | Phosphorus, | 6.1 (A) | 2.5 - 5.0 | EXTERNAL | | | Inorganic | | | LAB | | + + + + + + | BUN/Creatin | 11.1 | 6.0 - 28.6 | EXTERNAL | | | ine Ratio | | | LAB | | + + + + + + | Calcium | 9.8 | 8.4 - 10.2 | EXTERNAL | | | | | mg/dL | LAB | | + + + + + + | Estimated | 11 [...]
--- OUTSIDE RECORDS SUMMARY | ~2019-12-23 | XMS | Encounter Summary ---
Demographics + + + | Address | [address] | | | [place] [address] | + + + | Home Phone | | + + + | Preferred Language | Unknown | + + + | Marital Status | | + + + | Anabaptism Affiliation | Unknown | + + + | Race | Unknown | + + + | Ethnic Group | Unknown | + + + Author + + + | Author | [facility] | | | and [place] | + + + | Organization | [facility] | | | and [...] [address] | | | | | [address] | | + + + + + | Parth Vital | ECON | Unknown | | + + + + + Care Team Providers + +------+ + | Care Rpg Programmer Name | Role | Phone | + +------+ + | Star Doll MD | PCP | | + +------+ + Encounter Details +--------+ + + + + | Date | Type | Department | Care Team | Description | +--------+ + + + + | 08/27/ | Orders Only | [facility] | Jeanmarie Ly MD | | | 2015 | | NEPHROLOGY [place] | [address] [place] | | | | | [address] [place] | [address] [place], [place] | | | | | [address] [place], [place] | [address] | | | | | [address] | | | | | | [phone] | | | +--------+ + + + [...] + | HEMOGLOBIN AND | Routin | 08/28/2015 | | Results for this | | HEMATOCRIT | e | 12:00 AM | | procedure are in the | | | | PDT | | results section. | + +--------+ + + + | RENAL FUNCTION PANEL | Routin | 08/28/2015 | | Results for this | | | e | 12:00 AM | | procedure are in the | | | | PDT | | results section. | + +--------+ + + + documented in this encounter Results Hemoglobin and Hematocrit (08/28/2015 12:00 AM PDT) + + + + + + | Component | Value | Ref Range | Performed | Pathologist | | | | | At | Signature | + + + + + + | Hemoglobin | 9.9 (A) | 13.5 - 18.0 | EXTERNAL | | | | | | LAB | | + + + + + + | Hematocrit, | 30.5 (A) | 41 - 50 % | [...] + +---------+ + + Renal Function Panel (08/28/2015 12:00 AM PDT) + + + + + + | Component | Value | Ref Range | Performed | Pathologist | | | | | At | Signature | + + + + + + | Glucose, | 313 (A) | 70 - 100 mg/dL | EXTERNAL | | | Fasting | | | LAB | | + + + + + + | BUN | 56 (A) | 6 - 23 mg/dL | EXTERNAL | | | | | | LAB | | + + + + + + | Creatinine | 5.48 (A) | 0.70 - 1.18 | EXTERNAL | | | | | mg/dL | LAB | | + + + + + + | PHOSPHORUS | | mg/dL | EXTERNAL | | | | | | LAB | | + + + + + + | Albumin | 3.7 | 3.5 - 5.0 | EXTERNAL | | | | | | LAB | | + + + + + + | Na | 134 | 132 - 143 | EXTERNAL | | | | | mmol/L | LAB | | + + + + + + | K | 4.1 | 3.6 - 5.1 | EXTERNAL | | | | | mmol/L | LAB | | + + + + + + | Cl | 100 | 95 - 112 mmol/L | EXTERNAL | | | | | | LAB | | + + + + + + | CO2 | 23 | 19 - 31 mmol/L | EXTERNAL | | | | | | LAB | | + + + + + + | Anion Gap | 15.1 | 7 - 21 mmol/L | EXTERNAL | | | | | | LAB | | + + + + + + | eGFR if not | | | EXTERNAL | | | | | | LAB | | | [facility] | | | | | + + + + + + | Phosphorus, | 4.8 | 2.5 - 5.0 | EXTERNAL | | | Inorganic | | | LAB | | + + + + + + | BUN/Creatin | 10.2 | 6.0 - 28.6 | EXTERNAL | | | ine Ratio | | | LAB | | + + + + + + | Calcium | 9.8 | 8.4 - 10.2 | EXTERNAL | | | | | mg/dL | LAB | | + + + + + + | Estimated | 10 (A) | 60 - 140 mg/dL | EXTERNAL | | | GFR [...]
--- OUTSIDE RECORDS SUMMARY | ~2019-12-23 | XMS | Encounter Summary ---
Demographics + + + | Address | [address] | | | [place] [address] | + + + | Home Phone | | + + + | Preferred Language | Unknown | + + + | Marital Status | | + + + | Episcopal Affiliation | Unknown | + + + | Race | Unknown | + + + | Ethnic Group | Unknown | + + + Author + + + | Author | [facility] | | | and [place] | + + + | Organization | [facility] | | | and [place] | + + + | Address | Unknown | + + + | Phone | Unavailable | + + + Support + + + + + | Name | Relationship | Address | Phone | + + + + + | Marcela Vital | ECON | [address] | | | | | [place] | | | | | [address] | | + + + + + | Parth Vital | ECON | Unknown | | + + + + + Care Team Providers + +------+ + | Care Receiver/Laborer Name | Role | Phone | + +------+ + | Star Doll MD | PCP | | + +------+ + Reason for Visit +---------+--------+ + | Reason | Onset | Comments | | | Date | | +---------+--------+ + | Results | 03/09/ | | | | 2012 | | +---------+--------+ + Encounter Details +--------+ + + + + | Date | Type | Department | Care Team | Description | +--------+ + + + + | 03/09/ | Telephone | [facility] | Wendy Shelby | Results | | 2012 | | Group Cardiology | [place] [address] | | | | | [address] [facility] | [address] | | | | | [address], | [place] [address] | | | | | [place] [address] | [phone] | | | | | [phone] | | | +--------+ + + + [...] + + documented as of this encounter Miscellaneous Notes Telephone Encounter - Prabha Garcia RN - 03/10/2013 3:56 PM PDTNoted. Electronicall y signed by Prabha Garcia RN at 03/10/2013 3:56 PM PDTTelephone Encounter - Wendy Shelby MD - 03/10/2013 3:07 PM PDTYes, TFT was normal. Noted elephone Encounter - Prabha Garcia R N - 03/09/2013 4:50 PM PDTThe patient's daughter Lainey called back. Spoke with the patient and he gave permission to give the test results to his daughter Lainey. Notified her of the r esults of the echocardiogram and stress test. She also asked about the thyroid level. Inform ed her that I did not yet have an official response from the childcare worker buy unofficially i t was normal and if we had anything further to add we'd call her back. She had no questions. elephone Encount er - Wendy Shelby MD - 03/09/2013 4:45 PM PDTStress test did not reveal any evidenc e of significant blockages in blood supply to heart elephone Encount er - Prabha Garcia RN - 03/09/2013 4:29 PM PDTLainey, pt's daughter, is calling rebeca ding the test results. There is not a friends and family authorization so informed her that unfortunately I cannot give her any information without Duane's approval. Electronically s igned by Prabha Garcia RN at 03/09/2013 4:31 PM PDTTelephone Encounter - Carolyn Garcia RN - 03/09/2013 4:19 PM PDTLeft a message requesting the patient to call back regcarolyn rding their test results. elephone Encount er - Bebo Saavedra - 03/09/2013 3:28 PM PDTPlease, call pt with results, . elephone Encounter - Wendy Bazan MD - 03/09/2013 3:11 PM PDTLV fx was normal. No evidence of significant valvular heart disease. documented in thi s encounter Plan of Treatment Not on filedocumented as of this encounter Visit Diagnoses Not on filedocumented in this encounter"
--- OUTSIDE RECORDS SUMMARY | ~2019-12-23 | XMS | Encounter Summary ---
Demographics + + + | Address | [address] | | | [place] [address] | + + + | Home Phone | | + + + | Preferred Language | Unknown | + + + | Marital Status | | + + + | Muslim Affiliation | Unknown | + + + | Race | Unknown | + + + | Ethnic Group | Unknown | + + + Author + + + | Author | [facility] | | | and [place] | + + + | Organization | [facility] | | | [...] [place] | | | | | [address] | | + + + + + | Parth Vital | ECON | Unknown | | + + + + + Care Team Providers + +------+ + | Care Crime Laboratory Analyst Name | Role | Phone | + +------+ + | Star Doll MD | PCP | | + +------+ + Encounter Details +--------+ + + + + | Date | Type | Department | Care Team | Description | +--------+ + + + + | 05/30/ | Orders Only | [facility] | Jeanmarie Ly MD | | | 2013 | | NEPHROLOGY [place] | [address] [place] | | | | | [address] [place] | [address] [place], [place] | | | | | [address] [facility] [place] | [address] | | | | | [address] | | | | | | [phone] | | | +--------+ + + + [...] + | HEMOGLOBIN AND | Routin | 05/30/2014 | | Results for this | | HEMATOCRIT | e | 12:00 AM | | procedure are in the | | | | PST | | results section. | + +--------+ + + + | RENAL FUNCTION PANEL | Routin | 05/30/2014 | | Results for this | | | e | 12:00 AM | | procedure are in the | | | | PST | | results section. | + +--------+ + + + documented in this encounter Results Hemoglobin and Hematocrit (05/30/2014 12:00 AM PST) + + + + + + | Component | Value | Ref Range | Performed | Pathologist | | | | | At | Signature | + + + + + + | Hemoglobin | 12.5 (A) | 13.5 - 18.0 | EXTERNAL | | | | | | LAB | | + + + + + + | Hematocrit, | 38.7 (A) | 41 - 50 % | [...] + +---------+ + + Renal Function Panel (05/30/2014 12:00 AM PST) + + + + + + | Component | Value | Ref Range | Performed | Pathologist | | | | | At | Signature | + + + + + + | Glucose, | 283 (A) | 70 - 100 mg/dL | EXTERNAL | | | Fasting | | | LAB | | + + + + + + | BUN | 50 (A) | 6 - 23 mg/dL | EXTERNAL | | | | | | LAB | | + + + + + + | Creatinine | 4.24 (A) | 0.70 - 1.18 | EXTERNAL [...] + + + + | Na | 140 | 132 - 143 | EXTERNAL | [...] + + + | Anion Gap | 16.8 | 7 - 21 mmol/L | EXTERNAL | | | | | | LAB | | + + + + + + | eGFR if not | | | EXTERNAL | | | | | | LAB | | | FINNISH | | | | | + + + + + + | Phosphorus, | 4.4 | 2.5 - 5.0 | EXTERNAL | | | Inorganic | | | LAB | | + + + + + + | BUN/Creatin | 11.8 | 6.0 - 28.6 | EXTERNAL | | | ine Ratio | | | LAB | | + + + + + + | Calcium | 9.4 | 8.4 - 10.2 | EXTERNAL | [...]
--- OUTSIDE RECORDS SUMMARY | ~2019-12-23 | XMS | Encounter Summary ---
Demographics + + + | Address | [address] | | | [place] [address] | + + + | Home Phone | | + + + | Preferred Language | Unknown | + + + | Marital Status | | + + + | Latter Day Affiliation | Unknown | + + + | Race | Unknown | + + + | Ethnic Group | Unknown | + + + Author + + + | Author | [facility] | | | and [place] | + + + | Organization | [facility] | | | and [...] [place] | | | | | [address] | | + + + + + | Parth Vital | ECON | Unknown | | + + + + + Care Team Providers + +------+ + | Care Office Machine Inspector Name | Role | Phone | + +------+ + | Star Doll MD | PCP | | + +------+ + Encounter Details +--------+ + + + + | Date | Type | Department | Care Team | Description | +--------+ + + + + | 11/21/ | Orders Only | [facility] | Jeanmarie Ly MD | | | 2015 | | NEPHROLOGY [place] | [address] [place] | | | | | [address] [place] | [address] [place], [place] | | | | | [address] [place], [place] | [address] | | | | | [address] | | | | | | [phone] | | | +--------+ + + + [...] + | CREATININE, URINE, | Routin | 11/22/2015 | | Results for this | | 24HR | e | 12:00 AM | | procedure are in the | | | | PDT | | results section. | + +--------+ + + + documented in this encounter Results Creatinine, Urine, 24Hr (11/22/2015 12:00 AM PDT) + + + + + + | Component | Value | Ref Range | Performed | Pathologist | | | | | At | Signature | + + + + + + | CREATININE | 11 (A) | 85 - 125 mL/min | EXTERNAL | | | CLEARANCE | | | LAB | | + + + + + + | Creatinine | 5.79 (A) | 0.5 - 1.5 | EXTERNAL | | | | | | LAB | | + + + + + + | Creatinine, | 70 | | EXTERNAL | | | Urine, | | | LAB | | | Random | | | | | + + + + + + | Creatinine, | | | EXTERNAL | | | Urine, | | | LAB | | | Random | | | | | + + + + + + + + | Specimen | + + | Urine specimen | | (specimen) | + + + + + | Narrative | Performed At | + + + | VOLUME (ml) 1700 | EXTERNAL LAB | + + + + +---------+ + + | Performing | Address | City/State/Zipcode | Phone Number | | Organization | | | | + +---------+ + + | EXTERNAL LAB | | | | + +---------+ + + documented in this encounter Visit Diagnoses Not on filedocumented in this encounter"
--- OUTSIDE RECORDS SUMMARY | ~2019-12-23 | XMS | Encounter Summary ---
Demographics + + + | Address | [address] | | | [place] [address] | + + + | Home Phone | | + + + | Preferred Language | Unknown | + + + | Marital Status | | + + + | Adventist Affiliation | Unknown | + + + | Race | Unknown | + + + | Ethnic Group | Unknown | + + + Author + + + | Author | [facility] | | | and [place] | + + + | Organization | [facility] | | [...] [place] | | | | | [address] | | + + + + + | Parth Vital | ECON | Unknown | | + + + + + Care Team Providers + +------+ + | Care Paper Conservator Name | Role | Phone | + +------+ + | Star Doll MD | PCP | | + +------+ + Encounter Details +--------+ + + + + | Date | Type | Department | Care Team | Description | +--------+ + + + + | 05/29/ | Orders Only | [facility] | Jeanmarie Ly MD | | | 2014 | | NEPRHOLOGY [place] | [address] | | | | | [address] | [address] [place], [place] | | | | | [address] [place], [place] | [address] | | | | | [address] | | | | | | [phone] | | | +--------+ + + + [...] | IRON AND IRON | Routin | 07/24/2015 | | Results for this | | BINDING CAPACITY | e | 12:00 AM | | procedure are in the | | | | PST | | results section. | + +--------+ + + + | URINALYSIS WITH | Routin | 07/24/2015 | | Results for this | | MICROSCOPIC IF | e | 12:00 AM | | procedure are in the | | INDICATED | | PST | | results section. | + +--------+ + + + | VITAMIN D, | Routin | 07/24/2015 | | Results for this | | DEFICIENCY SCREEN | e | 12:00 AM | | procedure are in the | | (25-HYDROXY) | | PST | | results section. | + +--------+ + + + | PARATHYROID HORMONE, | Routin | 07/24/2015 | | Results for this | | INTACT AND CALCIUM | e | 12:00 AM | | procedure are in the | | | | PST | | results section. | + +--------+ + + + | HEMOGLOBIN AND | Routin | 07/24/2015 | | Results for this | | HEMATOCRIT | e | 12:00 AM | | procedure are in the | | | | PST | | results section. | + +--------+ + + + | PROTEIN/CREATININE | Routin | 07/24/2015 | | Results for this | | RATIO, URINE | e | 12:00 AM | | procedure are in the | | | | PST | | results section. | + +--------+ + + + | MAGNESIUM | Routin | 07/24/2015 | | Results for this | | | e | 12:00 AM | | procedure are in the | | | | PST | | results section. | + +--------+ + + + | FERRITIN | Routin | 07/24/2015 | | Results for this | | | e | 12:00 AM | | procedure are in the | | | | PST | | results section. | + +--------+ + + + | RENAL FUNCTION PANEL | Routin | 07/24/2015 | | Results for this | | | e | 12:00 AM | | procedure are in the | | | | PST | | results section. | + +--------+ + + + | BASIC METABOLIC | Routin | 05/29/2015 | | Results for this | | PANEL | e | 12:00 AM | | procedure are in the | | | | PST | | results section. | + +--------+ + + + documented in this encounter Results Hemoglobin and Hematocrit (07/24/2015 12:00 AM PST) + + + + + + | Component | Value | Ref Range | Performed | Pathologist | | | | | At | Signature | + + + + + + | Hemoglobin | 10.4 (A) | 13.5 - 18.0 | EXTERNAL [...] + + Iron and Iron Binding Capacity (07/24/2015 12:00 AM PST) + +-------+ + + + | Component | Value | Ref Range | Performed | Pathologist | | | | | At | Signature | + +-------+ + + + | Iron | 77.57 | 37 - 160 | EXTERNAL | | | | | | LAB | | + +-------+ + + + | Iron | 29.6 | 20 - 55 | EXTERNAL | | | Saturation | | | LAB | | + +-------+ + + + | TIBC | 262 | 245 - 400 | EXTERNAL | [...] + + Parathyroid Hormone, Intact and Calcium (07/24/2015 12:00 AM PST) + +-------+ + + + | Component | Value | Ref Range | Performed | Pathologist | | | | | At | Signature | + +-------+ + + + | PTH Intact | 30.56 | 15 - 65 | EXTERNAL | | | | | | LAB | | + +-------+ + + + | Calcium | 9.2 | 8.4 - 10.2 | EXTERNAL | [...] + +---------+ + + Protein/Creatinine Ratio, Urine (07/24/2015 12:00 AM PST) + + + + + + | Component | Value | Ref Range | Performed | Pathologist | | | | | At | Signature | + + + + + + | Protein/Cre | 3674.7 (A) | 0 - 150 | EXTERNAL [...] + + Vitamin D, Deficiency Screen (25-Hydroxy) (07/24/2015 12:00 AM PST) + +-------+ + + + | Component | Value | Ref Range | Performed | Pathologist | | | | | At | Signature | + +-------+ + + + | Vit D, | 79 | 30 - 100 | EXTERNAL | [...] + + Urinalysis with Microscopic if Indicated (07/24/2015 12:00 AM PST) + + + + [...] + + + | Spec Grav, | 1.014 | 1.005 - 1.030 | EXTERNAL | [...] + + + | Glucose, | 1+Comment: 1000 | | EXTERNAL | | | [...] | | + +---------+ + + Magnesium (07/24/2015 12:00 AM PST) + +-------+ + + + | Component | Value | Ref Range | Performed | Pathologist | | | | | At | Signature | + +-------+ + + + | Magnesium | 1.9 | 1.7 - 2.5 mg/dL | EXTERNAL [...] | | + +---------+ + + Ferritin (07/24/2015 12:00 AM PST) + + + + + + | Component | Value | Ref Range | Performed | Pathologist | | | | | At | Signature | + + + + + + | Ferritin, | 469.9 (A) | 30 - 400 ng/mL | [...] + +---------+ + + Renal Function Panel (07/24/2015 12:00 AM PST) + + + + + + | Component | Value | Ref Range | Performed | Pathologist | | | | | At | Signature | + + + + + + | Glucose, | 329 (A) | 70 - 100 mg/dL | EXTERNAL | | | Fasting | | | LAB | | + + + + + + | BUN | 64 (A) | 6 - 23 mg/dL | EXTERNAL | | | | | | LAB | | + + + + + + | Creatinine | 5.64 (A) | 0.70 - 1.18 | EXTERNAL | | | | | mg/dL | LAB | | + + + + + + | PHOSPHORUS | | mg/dL | EXTERNAL | | | | | | LAB | | + + + + + + | Albumin | 3.9 | 3.5 - 5.0 | EXTERNAL | | | | | | LAB | | + + + + + + | Na | 135 | 132 - 143 | EXTERNAL | | | | | mmol/L | LAB | | + + + + + + | K | 3.9 | 3.6 - 5.1 | EXTERNAL | | | | | mmol/L | LAB | | + + + + + + | Cl | 100 | 95 - 112 mmol/L | EXTERNAL | | | | | | LAB | | + + + + + + | CO2 | 20 | 19 - 31 mmol/L | EXTERNAL | | | | | | LAB | | + + + + + + | Anion Gap | 18.9 | 7 - 21 mmol/L | EXTERNAL | | | | | | LAB | | + + + + + + | eGFR if not | | | EXTERNAL | | | | | | LAB | | | SAMMARINESE | | | | | + + + + + + | Phosphorus, | 5.0 | 2.5 - 5.0 | EXTERNAL | | | Inorganic | | | LAB | | + + + + + + | BUN/Creatin | 11.3 | 6.0 - 28.6 | EXTERNAL | | | ine Ratio | | | LAB | | + + + + + + | Calcium | 9.2 | 8.4 - 10.2 | EXTERNAL | [...] + +---------+ + + Basic Metabolic Panel (05/29/2015 12:00 AM PST) + + + + + + | Component | Value | Ref Range | Performed | Pathologist | | | | | At | Signature | + + + + + + | Glucose, | 183 (A) | 70 - 100 mg/dL | EXTERNAL | | | Fasting | | | LAB | | + + + + + + | BUN | 47 (A) | 6 - 23 mg/dL | EXTERNAL | | | | | | LAB | | + + + + + + | Creatinine | 4.98 (A) | 0.70 - 1.18 | EXTERNAL | | | | | mg/dL | LAB | | + + + + + + | BUN/Creatin | 9.4 | 6.0 - 28.6 | EXTERNAL | | | ine Ratio | | | LAB | | + + + + + + | Calcium | 10.0 | 8.4 - 10.2 | EXTERNAL | | | | | mg/dL | LAB | | + + + + + + | Na | 140 | 132 - 143 | EXTERNAL | | | | | mmol/L | LAB | | + + + + + + | K | 3.9 | 3.6 - 5.1 | EXTERNAL | | | | | mmol/L | LAB | | + + + + + + | Cl | 104 | 95 - 112 mmol/L | EXTERNAL | | | | | | LAB | | + + + + + + | CO2 | 25 | 19 - 31 mmol/L | EXTERNAL | | | | | | LAB | | + + + + + + | Anion Gap | 14.9 | 7 - 21 mmol/L | EXTERNAL | | | | | | LAB | | + + + + + + | Estimated | 12 (A) | 60 - 140 mg/dL | [...]
--- OUTSIDE RECORDS SUMMARY | ~2019-12-23 | XMS | Encounter Summary ---
Demographics + + + | Address | [address] | | | [place] [address] | + + + | Home Phone | | + + + | Preferred Language | Unknown | + + + | Marital Status | | + + + | Catholic Affiliation | Unknown | + + + | Race | Unknown | + + + | Ethnic Group | Unknown | + + + Author + + + | Author | [facility] | | | and [place] | + + + | Organization | [facility] | | | and [...] [place] | | | | | [address] | | + + + + + | Parth Vital | ECON | Unknown | | + + + + + Care Team Providers + +------+ + | Care Frame Table Operator Name | Role | Phone | + +------+ + | Star Doll MD | PCP | | + +------+ + Encounter Details +--------+ + + + + | Date | Type | Department | Care Team | Description | +--------+ + + + + | 04/25/ | Orders Only | [facility] | Jeanmarie Ly MD | | | 2013 | | NEPRHOLOGY [place] | [address] | | | | | [address] | [address] [place], [place] | | | | | [address] [place], [place] | [address] | | | | | [address] | | | | | | [phone] | | | +--------+ + + + [...] + | HEMOGLOBIN AND | Routin | 04/25/2014 | | Results for this | | HEMATOCRIT | e | 12:00 AM | | procedure are in the | | | | PST | | results section. | + +--------+ + + + | RENAL FUNCTION PANEL | Routin | 04/25/2014 | | Results for this | | | e | 12:00 AM | | procedure are in the | | | | PST | | results section. | + +--------+ + + + documented in this encounter Results Hemoglobin and Hematocrit (04/25/2014 12:00 AM PST) + + + + + + | Component | Value | Ref Range | Performed | Pathologist | | | | | At | Signature | + + + + + + | Hemoglobin | 11.6 (A) | 13.5 - 18.0 | EXTERNAL | | | | | | LAB | | + + + + + + | Hematocrit, | 34.7 (A) | 41 - 50 % | [...] + +---------+ + + Renal Function Panel (04/25/2014 12:00 AM PST) + + + + + + | Component | Value | Ref Range | Performed | Pathologist | | | | | At | Signature | + + + + + + | Glucose, | 107 (A) | 70 - 100 mg/dL | EXTERNAL | | | Fasting | | | LAB | | + + + + + + | BUN | 48 (A) | 6 - 23 mg/dL | EXTERNAL | | | | | | LAB | | + + + + + + | Creatinine | 4.02 (A) | 0.70 - 1.18 | EXTERNAL | | | | | mg/dL | LAB | | + + + + + + | PHOSPHORUS | | mg/dL | EXTERNAL | | | | | | LAB | | + + + + + + | Albumin | 4.1 | 3.5 - 5.0 | EXTERNAL | | | | | | LAB | | + + + + + + | Na | 139 | 132 - 143 | EXTERNAL | | | | | mmol/L | LAB | | + + + + + + | K | 3.3 (A) | 3.6 - 5.1 | EXTERNAL | | | | | mmol/L | LAB | | + + + + + + | Cl | 108 | 95 - 112 mmol/L | EXTERNAL | | | | | | LAB | | + + + + + + | CO2 | 23 | 19 - 31 mmol/L | EXTERNAL | | | | | | LAB | | + + + + + + | Anion Gap | 11.3 | 7 - 21 mmol/L | EXTERNAL | | | | | | LAB | | + + + + + + | eGFR if not | | | EXTERNAL | | | | | | LAB | | | IRAQI | | | | | + + + + + + | Phosphorus, | 3.8 | 2.5 - 5.0 | EXTERNAL | | | Inorganic | | | LAB | | + + + + + + | BUN/Creatin | 11.9 | 6.0 - 28.6 | EXTERNAL | [...]
--- OUTSIDE RECORDS SUMMARY | ~2019-12-23 | XMS | Encounter Summary ---
Demographics + + + | Address | [address] | | | [place] [address] | + + + | Home Phone | | + + + | Preferred Language | Unknown | + + + | Marital Status | | + + + | Confucianism Affiliation | Unknown | + + + | Race | Unknown | + + + | Ethnic Group | Unknown | + + + Author + + + | Author | [facility] | | | and [place] | + + + | Organization | [facility] | | | [...] [place] | | | | | [address] | | + + + + + | Parth Vital | ECON | Unknown | | + + + + + Care Team Providers + +------+ + | Care Header Boss Name | Role | Phone | + +------+ + | Star Doll MD | PCP | | + +------+ + Encounter Details +--------+ + + + + | Date | Type | Department | Care Team | Description | +--------+ + + + + | 05/23/ | Abstract | [facility] | Zane Pina | | | 2015 | | [facility] | MD Candido [address] | | | | | KIDNEY TRANSPLANT | [place] [address], | | | | | [address] [place] | [place] [address] | | | | | [address] [place] [place] | [phone] | | | | | [address] | | | | | | [phone] | | | +--------+ + + + [...]
--- OUTSIDE RECORDS SUMMARY | ~2019-12-23 | XMS | Encounter Summary ---
Demographics + + + | Address | [address] | | | [place] [address] | + + + | Home Phone | | + + + | Preferred Language | Unknown | + + + | Marital Status | | + + + | Sikh Affiliation | Unknown | + + + | Race | White | + + + | Ethnic Group | Not or | + + + Author + + + | Author | [facility] | + + + | Organization | [facility] | + + + | Address | Unknown | + + + | Phone | Unavailable | + + + Support + + +---------+ + | Name | Relationship | Address | Phone | + + +---------+ + | Marcela Vital | ECON | Unknown | | + + +---------+ + Care Team Providers + +------+ + | Care Animal Feeder Name | Role | Phone | + +------+ + | Star Doll MD | PCP | | + +------+ + Reason for Visit + + + | Reason | Comments | + + + | Pre Transplant | Intake | | Workup | | + + + Encounter Details +--------+ + + + + | Date | Type | Department | Care Team | Description | +--------+ + + + + | 12/31/ | Telephone | Clinical | Linda Bonds, | Pre Transplant | | 2017 | | Transplant Services | RN [address] [facility] | Workup (Intake) | | | | [address] | [address] | | | | | [address] [place], | [place], [place] | | | | | [place] [address] | [address] | | | | | [phone] | | | +--------+ + + + [...] on file | | + + + + + + + | Job Start Date | Occupation | Industry | + + + + | Not on file | Not on file | Not on file | + + + + + + + + | Travel History | Travel Start | Travel End | + + + + + + | No recent travel history available. | + + documented as of this encounter Plan of Treatment Not on filedocumented as of this encounter Visit Diagnoses Not on filedocumented in this encounter"
--- OUTSIDE RECORDS SUMMARY | ~2019-12-23 | XMS | Encounter Summary ---
Demographics + + + | Address | [address] | | | [place] [address] | + + + | Home Phone [...] [place] | | | | | [address] | | + + + + + | Parth Vital | ECON | Unknown | | + + + + + Care Team Providers + +------+ + | Care Boiler Room Helper Name | Role | Phone | + +------+ + | Star Doll MD | PCP | | + +------+ + Encounter Details +--------+ + + + + | Date | Type | Department | Care Team | Description | +--------+ + + + + | 10/01/ | Orders Only | [facility] | Conversion | | | 2015 | | NEPHROLOGY [place] | Transaction, | | | | | [address] | Provider Unknown | | | | | [address] [place] | | | | | | [address] | (Fax) | | | | | [phone] | | | +--------+ + + + [...] | RENAL FUNCTION PANEL | Routin | 10/02/2015 | | Results for this | | | e | 12:00 AM | | procedure are in the | | | | PDT | | results section. | + +--------+ + + + documented in this encounter Results Renal Function Panel (10/02/2015 12:00 AM PDT) + + + + + + | Component | Value | Ref Range | Performed | Pathologist | | | | | At | Signature | + + + + + + | Glucose, | 211 (A) | 70 - 100 mg/dL | EXTERNAL | | | Fasting | | | LAB | | + + + + + + | BUN | 57 (A) | 6 - 23 mg/dL | EXTERNAL | | | | | | LAB | | + + + + + + | Creatinine | 5.89 (A) | 0.70 - 1.18 | EXTERNAL [...] + + | CO2 | 22 | 19 - 31 mmol/L | EXTERNAL | | | | | | LAB | | + + + + + + | Anion Gap | 18.8 | 7 - 21 mmol/L | EXTERNAL | | | | | | LAB | | + + + + + + | eGFR if not | | | EXTERNAL | | | | | | LAB | | | CAMBODIAN | | | | | + + + + + + | Phosphorus, | 6.3 (A) | 2.5 - 5.0 | EXTERNAL | | | Inorganic | | | LAB | | + + + + + + | BUN/Creatin | 9.7 | 6.0 - 28.6 | EXTERNAL | | | ine Ratio | | | LAB | | + + + + + + | Calcium | 9.7 | 8.4 - 10.2 | EXTERNAL | [...]
--- OUTSIDE RECORDS SUMMARY | ~2019-12-23 | XMS | Encounter Summary ---
Demographics + + + | Address | [address] | | | [place] [address] | + + + | Home Phone | | + + + | Preferred Language | Unknown | + + + | Marital Status | | + + + | Judaism Affiliation | Unknown | + + + | Race | Unknown | + + + | Ethnic Group | Unknown | + + + Author + + + | Author | [facility] | | | and [place] | + + + | Organization | [facility] | | | and [...] [address] | | | | | [address] | | + + + + + | Parth Vital | ECON | Unknown | | + + + + + Care Team Providers + +------+ + | Care Lathe Scalper Operator Name | Role | Phone | + +------+ + | Star Doll MD | PCP | | + +------+ + Encounter Details +--------+ + + + + | Date | Type | Department | Care Team | Description | +--------+ + + + + | 02/15/ | Orders Only | [facility] | Jeanmarie Ly MD | | | 2013 | | NEPHROLOGY [place] | [address] [place] | | | | | [address] [place] | [address] [place], [place] | | | | | [address] [place], [place] | [address] | | | | | [address] | | | | | | [phone] | | | +--------+ + + + [...] | IRON AND IRON | Routin | 02/15/2014 | | Results for this | | BINDING CAPACITY | e | 12:00 AM | | procedure are in the | | | | PDT | | results section. | + +--------+ + + + | URINALYSIS WITH | Routin | 02/15/2014 | | Results for this | | MICROSCOPIC WITH | e | 12:00 AM | | procedure are in the | | CULTURE IF INDICATED | | PDT | | results section. | + +--------+ + + + | HEMOGLOBIN AND | Routin | 02/15/2014 | | Results for this | | HEMATOCRIT | e | 12:00 AM | | procedure are in the | | | | PDT | | results section. | + +--------+ + + + | TRANSFERRIN | Routin | 02/15/2014 | | Results for this | | | e | 12:00 AM | | procedure are in the | | | | PDT | | results section. | + +--------+ + + + | MAGNESIUM | Routin | 02/15/2014 | | Results for this | | | e | 12:00 AM | | procedure are in the | | | | PDT | | results section. | + +--------+ + + + | FERRITIN | Routin | 02/15/2014 | | Results for this | | | e | 12:00 AM | | procedure are in the | | | | PDT | | results section. | + +--------+ + + + | RENAL FUNCTION PANEL | Routin | 02/15/2014 | | Results for this | | | e | 12:00 AM | | procedure are in the | | | | PDT | | results section. | + +--------+ + + + documented in this encounter Results Urinalysis with Microscopic with Culture if Indicated (02/15/2014 12:00 AM PDT) + + + + [...] + + | Total | 75 | Negative | EXTERNAL | | | [...] + + Iron and Iron Binding Capacity (02/15/2014 12:00 AM PDT) + + + + + + | Component | Value | Ref Range | Performed | Pathologist | | | | | At | Signature | + + + + + + | Iron | 49 | 37 - 160 | EXTERNAL | | | | | | LAB | | + + + + + + | Iron | 15.4 (A) | 20 - 55 | EXTERNAL | | | Saturation | | | LAB | | + + + + + + | TIBC | 318 | 245 - 400 | EXTERNAL | [...] | | + +---------+ + + Hemoglobin and Hematocrit (02/15/2014 12:00 AM PDT) + + + + + + | Component | Value | Ref Range | Performed | Pathologist | | | | | At | Signature | + + + + + + | Hemoglobin | 10.2 (A) | 13.5 - 18.0 | EXTERNAL | | | | | | LAB | | + + + + + + | Hematocrit, | 31.4 (A) | 41 - 50 % | [...] | | + +---------+ + + Transferrin (02/15/2014 12:00 AM PDT) + +-------+ + + + | Component | Value | Ref Range | Performed | Pathologist | | | | | At | Signature | + +-------+ + + + | TRANSFERRIN | 227 | 180 - 329 | EXTERNAL | [...] | | + +---------+ + + Magnesium (02/15/2014 12:00 AM PDT) + +-------+ + + [...] | | + +---------+ + + Ferritin (02/15/2014 12:00 AM PDT) + + + + + + | Component | Value | Ref Range | Performed | Pathologist | | | | | At | Signature | + + + + + + | Ferritin, | 445.0 (A) | 30 - 400 ng/mL | [...] + +---------+ + + Renal Function Panel (02/15/2014 12:00 AM PDT) + + + + + + | Component | Value | Ref Range | Performed | Pathologist | | | | | At | Signature | + + + + + + | Glucose, | 190 (A) | 70 - 100 mg/dL | EXTERNAL | | | Fasting | | | LAB | | + + + + + + | BUN | 39 (A) | 6 - 23 mg/dL | EXTERNAL | | | | | | LAB | | + + + + + + | Creatinine | 4.34 (A) | 0.70 - 1.25 | EXTERNAL [...] + + + + | K | 4.5 | 3.6 - 5.1 | EXTERNAL | | | | | mmol/L | LAB | | + + + + + + | Cl | 105 | 95 - 112 mmol/L | EXTERNAL | | | | | | LAB | | + + + + + + | CO2 | 22 | 19 - 31 mmol/L | EXTERNAL | | | | | | LAB | | + + + + + + | Anion Gap | 14.5 | 7 - 21 mmol/L | EXTERNAL | | | | | | LAB | | + + + + + + | eGFR if not | | | EXTERNAL | | | | | | LAB | | | BRUNEIAN | | | | | + + + + + + | Phosphorus, | 4.0 | 2.5 - 5.0 | EXTERNAL | [...]
--- OUTSIDE RECORDS SUMMARY | ~2019-12-23 | XMS | Clinical Summary ---
Demographics + + + | Address | [address] | | | [place] [address] | + + + | Home Phone | | + + + | Preferred Language | Unknown | + + + | Marital Status | | + + + | Sikhism Affiliation | Unknown | + + + [...] Team Providers + +------+ + | Care Horticultural Technical Officer Name | Role | Phone | + +------+ + | Star Doll MD | PCP | | + +------+ + Source Comments SY is fully live on both [facility] Ambulatory and [facility] InPatient.[facility] Allergies Not on File Medications Not on file Active Problems + [...] recent travel history available. | + + Last Filed Vital Signs Not on file Plan of Treatment + + + + + | Health Maintenance | Due Date | Last Done | Comments | + + + + + | Pneumococcal | | | | | vaccination (1 of 2 | 9 | | | | - PCV13) | | | | + + + + + | Influenza (Flu) | | | | | vaccination (#1) | 9 | | | + + + + + Results Not on filefrom Last 3 Months"
--- OUTSIDE RECORDS SUMMARY | ~2019-12-23 | XMS | Encounter Summary ---
Demographics + + + | Address | [address] | | | [place] [address] | + + + | Home Phone | | + + + | Preferred Language | Unknown | + + + | Marital Status | | + + + | Voodoo Affiliation | Unknown | + + + | Race | Unknown | + + + | Ethnic Group | Unknown | + + + Author + + + | Author | [facility] | | | and [place] | + + + | Organization | [facility] | | | [...] [place] | | | | | [address] | | + + + + + | Parth Vital | ECON | Unknown | | + + + + + Care Team Providers + +------+ + | Care National Sales Name | Role | Phone | + +------+ + | Star Doll MD | PCP | | + +------+ + Reason for Visit + +--------+ + | Reason | Onset | Comments | | | Date | | + +--------+ + | Medication Refill | 11/18/ | | | | 2019 | | + +--------+ + Encounter Details +--------+--------+ + + + | Date | Type | Department | Care Team | Description | +--------+--------+ + + + | 11/18/ | Refill | [facility] | See Sotelo, | Medication Refill | | 2019 | | CARDIOLOGY [place] | [address] | | | | | [address] | [facility], | | | | | [facility] [place] | [place] [address] | | | | | [address] | [phone] | | | | | [phone] | | | +--------+--------+ + + + Social History + +-------+ [...]
--- OUTSIDE RECORDS SUMMARY | ~2019-12-23 | XMS | Encounter Summary ---
Demographics + + + | Address | [address] | | | [place] [address] | + + + | Home Phone | | + + + | Preferred Language | Unknown | + + + | Marital Status | | + + + | Religion Affiliation | Unknown | + + + [...] [address] | | | | | [address] | | + + + + + | Parth Vital | ECON | Unknown | | + + + + + Care Team Providers + +------+ + | Care Radiology Tech Name | Role | Phone | + +------+ + | Star Doll MD | PCP | | + +------+ + Encounter Details +--------+ + + + + | Date | Type | Department | Care Team | Description | +--------+ + + + + | 07/18/ | Orders Only | [facility] | Jeanmarie Ly MD | | | 2014 | | NEPHROLOGY [place] | [address] [place] | | | | | [address] [place] | [address] [place], [place] | | | | | [address] [facility] [place] | [address] | | | | | [address] | | | | | | [phone] | | | +--------+ + + + [...] | IRON AND IRON | Routin | 07/18/2014 | | Results for this | | BINDING CAPACITY | e | 12:00 AM | | procedure are in the | | | | PST | | results section. | + +--------+ + + + | URINALYSIS WITH | Routin | 07/18/2014 | | Results for this | | MICROSCOPIC WITH | e | 12:00 AM | | procedure are in the | | CULTURE IF INDICATED | | PST | | results section. | + +--------+ + + + | HEMOGLOBIN AND | Routin | 07/18/2014 | | Results for this | | HEMATOCRIT | e | 12:00 AM | | procedure are in the | | | | PST | | results section. | + +--------+ + + + | PROTEIN/CREATININE | Routin | 07/18/2014 | | Results for this | | RATIO, URINE | e | 12:00 AM | | procedure are in the | | | | PST | | results section. | + +--------+ + + + | PROTEIN, URINE, | Routin | 07/18/2014 | | Results for this | | RANDOM | e | 12:00 AM | | procedure are in the | | | | PST | | results section. | + +--------+ + + + | CREATININE, URINE, | Routin | 07/18/2014 | | Results for this | | RANDOM | e | 12:00 AM | | procedure are in the | | | | PST | | results section. | + +--------+ + + + | URIC ACID | Routin | 07/18/2014 | | Results for this | | | e | 12:00 AM | | procedure are in the | | | | PST | | results section. | + +--------+ + + + | TRANSFERRIN | Routin | 07/18/2014 | | Results for this | | | e | 12:00 AM | | procedure are in the | | | | PST | | results section. | + +--------+ + + + | MAGNESIUM | Routin | 07/18/2014 | | Results for this | | | e | 12:00 AM | | procedure are in the | | | | PST | | results section. | + +--------+ + + + | FERRITIN | Routin | 07/18/2014 | | Results for this | | | e | 12:00 AM | | procedure are in the | | | | PST | | results section. | + +--------+ + + + | RENAL FUNCTION PANEL | Routin | 07/18/2014 | | Results for this | | | e | 12:00 AM | | procedure are in the | | | | PST | | results section. | + +--------+ + + + documented in this encounter Results Urinalysis with Microscopic with Culture if Indicated (07/18/2014 12:00 AM PST) + + + + [...] + + Iron and Iron Binding Capacity (07/18/2014 12:00 AM PST) + +-------+ + + + | Component | Value | Ref Range | Performed | Pathologist | | | | | At | Signature | + +-------+ + + + | Iron | 70 | 37 - 160 | EXTERNAL | | | | | | LAB | | + +-------+ + + + | Iron | 26.4 | 20 - 55 | EXTERNAL | | | Saturation | | | LAB | | + +-------+ + + + | TIBC | 265 | 245 - 400 | EXTERNAL | [...] + +---------+ + + Hemoglobin and Hematocrit (07/18/2014 12:00 AM PST) + + + + + + | Component | Value | Ref Range | Performed | Pathologist | | | | | At | Signature | + + + + + + | Hemoglobin | 9.6 (A) | 13.5 - 18.0 | EXTERNAL | | | | | | LAB | | + + + + + + | Hematocrit, | 29.3 (A) | 41 - 50 % | [...] + +---------+ + + Protein/Creatinine Ratio, Urine (07/18/2014 12:00 AM PST) + + + + + + | Component | Value | Ref Range | Performed | Pathologist | | | | | At | Signature | + + + + + + | Protein/Cre | 2690.7 (A) | 0 - 150 | EXTERNAL [...] + +---------+ + + Protein, Urine, Random (07/18/2014 12:00 AM PST) + +---------+ + + + | Component | Value | Ref Range | Performed | Pathologist | | | | | At | Signature | + +---------+ + + + | Protein, | 261 (A) | 0.0 - 50.0 | EXTERNAL [...] + +---------+ + + Creatinine, Urine, Random (07/18/2014 12:00 AM PST) + +-------+ + + + | Component | Value | Ref Range | Performed | Pathologist | | | | | At | Signature | + +-------+ + + + | Creatinine, | 97 | | EXTERNAL | | | 24H [...] | | | + +---------+ + + Uric Acid (07/18/2014 12:00 AM PST) + +-------+ + + + | Component | Value | Ref Range | Performed | Pathologist | | | | | At | Signature | + +-------+ + + + | Uric Acid | 5.9 | 4.4 - 7.6 | EXTERNAL | | | | | [...] | | + +---------+ + + Transferrin (07/18/2014 12:00 AM PST) + +-------+ + + + | Component | Value | Ref Range | Performed | Pathologist | | | | | At | Signature | + +-------+ + + + | TRANSFERRIN | 189 | 180 - 329 | EXTERNAL | [...] | | + +---------+ + + Magnesium (07/18/2014 12:00 AM PST) + +-------+ + + [...] | | + +---------+ + + Ferritin (07/18/2014 12:00 AM PST) + +---------+ + + + | Component | Value | Ref Range | Performed | Pathologist | | | | | At | Signature | + +---------+ + + + | Ferritin, | 540 (A) | 30 - 400 ng/mL | [...] + +---------+ + + Renal Function Panel (07/18/2014 12:00 AM PST) + + + + + + | Component | Value | Ref Range | Performed | Pathologist | | | | | At | Signature | + + + + + + | Glucose, | 163 (A) | 70 - 100 mg/dL | EXTERNAL | | | Fasting | | | LAB | | + + + + + + | BUN | 49 (A) | 6 - 23 mg/dL | [...] + + + + | K | 4.8 | 3.6 - 5.1 | EXTERNAL | | | | | mmol/L | LAB | | + + + + + + | Cl | 110 | 95 - 112 mmol/L | EXTERNAL | | | | | | LAB | | + + + + + + | CO2 | 22 | 19 - 31 mmol/L | EXTERNAL | | | | | | LAB | | + + + + + + | Anion Gap | 14.8 | 7 - 21 mmol/L | EXTERNAL | | | | | | LAB | | + + + + + + | eGFR if not | | | EXTERNAL | | | | | | LAB | | | ESTONIAN | | | | | + + + + + + | Phosphorus, | 4.6 | 2.5 - 5.0 | EXTERNAL | | | Inorganic | | | LAB | | + + + + + + | BUN/Creatin | 11.6 | 6.0 - 28.6 | EXTERNAL | [...]
--- OUTSIDE RECORDS SUMMARY | ~2019-12-23 | XMS | Encounter Summary ---
Demographics + + + | Address | [address] | | | [place] [address] | + + + | Home Phone | | + + + | Preferred Language | Unknown | + + + | Marital Status | | + + + | Sikhism Affiliation | Unknown | + + + | Race | Unknown | + + + | Ethnic Group | Unknown | + + + Author + + + | Author | [facility] | | | and [place] | + + + | Organization | [facility] | | | [...] [place] | | | | | [address] | | + + + + + | Parth Vital | ECON | Unknown | | + + + + + Care Team Providers + +------+ + | Care Scoop Driver Name | Role | Phone | + +------+ + | Star Doll MD | PCP | | + +------+ + Encounter Details +--------+ + + + + | Date | Type | Department | Care Team | Description | +--------+ + + + + | 06/17/ | Orders Only | [facility] | Jeanmarie Ly MD | | | 2015 | | NEPRHOLOGY [place] | [address] | | | | | [address] | [address] [place], [place] | | | | | [address] [place], [place] | [address] | | | | | [address] | | | | | | [phone] | | | +--------+ + + + [...] + | HEMOGLOBIN AND | Routin | 06/17/2015 | | Results for this | | HEMATOCRIT | e | 12:00 AM | | procedure are in the | | | | PST | | results section. | + +--------+ + + + | RENAL FUNCTION PANEL | Routin | 06/17/2015 | | Results for this | | | e | 12:00 AM | | procedure are in the | | | | PST | | results section. | + +--------+ + + + documented in this encounter Results Hemoglobin and Hematocrit (06/17/2015 12:00 AM PST) + + + + + + | Component | Value | Ref Range | Performed | Pathologist | | | | | At | Signature | + + + + + + | Hemoglobin | 10.6 (A) | 13.5 - 18.0 | EXTERNAL | | | | | g/dL | LAB | | + + + + + + | Hematocrit, | 31.5 (A) | 41 - 50 % | [...] + +---------+ + + Renal Function Panel (06/17/2015 12:00 AM PST) + + + + + + | Component | Value | Ref Range | Performed | Pathologist | | | | | At | Signature | + + + + + + | Glucose, | 282 (A) | 70 - 100 mg/dL | EXTERNAL | | | Fasting | | | LAB | | + + + + + + | BUN | 54 (A) | 6 - 23 mg/dL | EXTERNAL | | | | | | LAB | | + + + + + + | Creatinine | 5.21 (A) | 0.70 - 1.18 | EXTERNAL [...] + + + + | Na | 136 | 132 - 143 | EXTERNAL | | | | | mmol/L | LAB | | + + + + + + | K | 4.2 | 3.6 - 5.1 | EXTERNAL | | | | | mmol/L | LAB | | + + + + + + | Cl | 101 | 95 - 112 mmol/L | EXTERNAL | | | | | | LAB | | + + + + + + | CO2 | 23 | 19 - 31 mmol/L | EXTERNAL | | | | | | LAB | | + + + + + + | Anion Gap | 16.2 | 7 - 21 mmol/L | EXTERNAL | | | | | | LAB | | + + + + + + | eGFR if not | | | EXTERNAL | | | | | | LAB | | | PARAGUAYAN | | | | | + + + + + + | Phosphorus, | 5.0 | 2.5 - 5.0 | EXTERNAL | | | Inorganic | | | LAB | | + + + + + + | BUN/Creatin | 10.4 | 6.0 - 28.6 | EXTERNAL | | | ine Ratio | | | LAB | | + + + + + + | Calcium | 10.1 | 8.4 - 10.2 | EXTERNAL | | | | | mg/dL | LAB | | + + + + + + | Estimated | 11 (A) | 60 - 140 mg/dL | [...]
--- OUTSIDE RECORDS SUMMARY | ~2019-12-23 | XMS | Encounter Summary ---
Demographics + + + | Address | [address] | | | [place] [address] | + + + | Home Phone | | + + + | Preferred Language | Unknown | + + + | Marital Status | | + + + | Uatsdin Affiliation | Unknown | + + + | Race | Unknown | + + + | Ethnic Group | Unknown | + + + Author + + + | Author | [facility] | | | and [place] | + + + | Organization | [facility] | | | [...] [place] | | | | | [address] | | + + + + + | Parth Vital | ECON | Unknown | | + + + + + Care Team Providers + +------+ + | Care Nipple Machine Operator Name | Role | Phone | + +------+ + | Star Doll MD | PCP | | + +------+ + Encounter Details +--------+ + + + + | Date | Type | Department | Care Team | Description | +--------+ + + + + | 06/18/ | Orders Only | [facility] | Conversion | | | 2016 | | NEPHROLOGY [place] | Transaction, | | | | | [address] | Provider Unknown | | | | | [address] [facility] | | | | | | [address] | (Fax) | | | | | [phone] | | | +--------+ + + + [...] + | HEMOGLOBIN A1C | Routin | 06/18/2016 | | Results for this | | | e | 11:55 AM | | procedure are in the | | | | PST | | results section. | + +--------+ + + + | BASIC METABOLIC | Routin | 06/18/2016 | | Results for this | | PANEL | e | 11:55 AM | | procedure are in the | | | | PST | | results section. | + +--------+ + + + documented in this encounter Results Hemoglobin A1C (06/18/2016 11:55 AM PST) + +-------+ + + + | Component | Value | Ref Range | Performed | Pathologist | | | | | At | Signature | + +-------+ + + + | Hemoglobin | 9.8 | % | EXTERNAL | | | [...] + +---------+ + + Basic Metabolic Panel (06/18/2016 11:55 AM PST) + + + + + + | Component | Value | Ref Range | Performed | Pathologist | | | | | At | Signature | + + + + + + | Glucose, | 367 (A) | 70 - 100 mg/dL | EXTERNAL | | | Fasting | | | LAB | | + + + + + + | BUN | 20 | 6 - 23 mg/dL | EXTERNAL | | | | | | LAB | | + + + + + + | Creatinine | 4.00 (A) | 0.70 - 1.18 | EXTERNAL | | | | | mg/dL | LAB | | + + + + + + | BUN/Creatin | 5.0 (A) | 6.0 - 28.6 | EXTERNAL | | | ine Ratio | | | LAB | | + + + + + + | Calcium | 9.9 | 8.4 - 10.2 | EXTERNAL | [...] + + + + | Cl | 95 | 95 - 112 mmol/L | EXTERNAL | | | | | | LAB | | + + + + + + | CO2 | 30 | 19 - 31 mmol/L | EXTERNAL | | | | | | LAB | | + + + + + + | Anion Gap | 20.8 | 7 - 21 mmol/L | EXTERNAL [...]
--- OUTSIDE RECORDS SUMMARY | ~2019-12-23 | XMS | Encounter Summary ---
Demographics + + + | Address | [address] | | | [place] [address] | + + + | Home Phone | | + + + | Preferred Language | Unknown | + + + | Marital Status | | + + + | Jainism Affiliation | Unknown | + + + [...] [place] | | | | | [address] | | + + + + + | Parth Vital | ECON | Unknown | | + + + + + Care Team Providers + +------+ + | Care Mold Dumper Name | Role | Phone | + +------+ + | Star Doll MD | PCP | | + +------+ + Encounter Details +--------+ + + + + | Date | Type | Department | Care Team | Description | +--------+ + + + + | 05/04/ | Orders Only | [facility] | Jeanmarie Ly MD | | | 2014 | | NEPHROLOGY [place] | [address] [place] | | | | | [address] [place] | [address] [place], [place] | | | | | [address] [place], [place] | [address] | | | | | [address] | | | | | | [phone] | | | +--------+ + + + [...] + | HEMOGLOBIN AND | Routin | 10/10/2014 | | Results for this | | HEMATOCRIT | e | 12:00 AM | | procedure are in the | | | | PDT | | results section. | + +--------+ + + + | RENAL FUNCTION PANEL | Routin | 10/10/2014 | | Results for this | | | e | 12:00 AM | | procedure are in the | | | | PDT | | results section. | + +--------+ + + + documented in this encounter Results Hemoglobin and Hematocrit (10/10/2014 12:00 AM PDT) + + + + + + | Component | Value | Ref Range | Performed | Pathologist | | | | | At | Signature | + + + + + + | Hemoglobin | 11.9 (A) | 13.5 - 18.0 | EXTERNAL | | | | | | LAB | | + + + + + + | Hematocrit, | 35.8 (A) | 41 - 50 % | [...] + +---------+ + + Renal Function Panel (10/10/2014 12:00 AM PDT) + + + + + + | Component | Value | Ref Range | Performed | Pathologist | | | | | At | Signature | + + + + + + | Glucose, | 294 (A) | 70 - 100 mg/dL | EXTERNAL | | | Fasting | | | LAB | | + + + + + + | BUN | 64 (A) | 6 - 23 mg/dL | EXTERNAL | | | | | | LAB | | + + + + + + | Creatinine | 4.64 (A) | 0.70 - 1.18 | EXTERNAL [...] | | | LAB | | | BULGARIAN | | | | | + + + + + + | Phosphorus, | 6.0 (A) | 2.5 - 5.0 | EXTERNAL | | | Inorganic | | | LAB | | + + + + + + | BUN/Creatin | 13.8 | 6.0 - 28.6 | EXTERNAL | | | ine Ratio | | | LAB | | + + + + + + | Calcium | 9.6 | 8.4 - 10.2 | EXTERNAL | | | | | mg/dL | LAB | | + + + + + + | Estimated | 13 | mg/dL | EXTERNAL | | | [...]
--- OUTSIDE RECORDS SUMMARY | ~2019-12-23 | XMS | Encounter Summary ---
Demographics + + + | Address | [address] | | | [place] [address] | + + + | Home Phone | | + + + | Preferred Language | Unknown | + + + | Marital Status | | + + + | Temple Affiliation | Unknown | + + + | Race | Unknown | + + + | Ethnic Group | Unknown | + + + Author + + + | Author | [facility] | | | and [place] | + + + | Organization | [facility] | | | [...] [address] | | | | | [address] | | + + + + + | Parth Vital | ECON | Unknown | | + + + + + Care Team Providers + +------+ + | Care Correctional Supervisor Name | Role | Phone | + +------+ + | Star Doll MD | PCP | | + +------+ + Encounter Details +--------+ + + + + | Date | Type | Department | Care Team | Description | +--------+ + + + + | 03/31/ | Orders Only | [facility] | Caro Castillo | | | 2018 | | CONVERSION [address] | [address] | | | | | [address] | [address] | | | | | [place], [place] | [place] [address] | | | | | [address] | [phone] | | | | | [phone] | | | +--------+ + + + [...] | + +--------+ + + + | ECHO INTERPRETATION | Routin | 03/31/2018 | | Results for this | | OF OUTSIDE FILMS | e | 1:40 PM | | procedure are in the | | | | PDT | | results section. | + +--------+ + + + documented in this encounter Results ECHO Interpretation of Outside Films (03/31/2018 1:40 PM PDT) + + | Specimen | + + | | + + + + + | Impressions | Performed At | + + + | 1. Overall left ventricular systolic function is normal with, an EF | | | between 60 - 65 %. 2. The right ventricle is normal in size and | | | function. 3. 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 4. There are no significant | | | changes noted in comparison to the previous echocardiographic study, | | | done 03/13/17. | | + + + + + + | Narrative | Performed At | + + + | Patient Name: BRIANNA VITAL Date of : 1945 | | | Performing Physician: TIAGO DANGELO MD | | | | | | ------REPORT ADDENDED------ INDICATIONS S/P TAVR | | | CONCLUSIONS 1. Overall left ventricular systolic | | | function is normal with, an EF between 60 - 65 %. 2. The right | | | ventricle is normal in size and function. 3. Bioprosthetic TAVR is | | | well seated, with no evidence of stenosis, and only trace | | | insufficiency. 4. There are no significant changes noted in comparison | | | to the previous echocardiographic study, done 03/13/17. FINDINGS | | | -------- ECG rhythm: Sinus rhythm. Study: A 2-dimensional | | | transthoracic echocardiogram with m-mode, spectral and color flow | | | Doppler was perfomed. Study: This was a technically adequate study. | | | Left Ventricle: Overall left ventricular systolic function is normal | | | with, an EF between 60 - 65 %. Left Ventricle: The left ventricle is | | | mildly dilated. Left Ventricle: No regional wall motion | | | abnormalities. Left Ventricle: The diastolic filling pattern is | | | normal for the age of the patient. Left Ventricle: Septal knuckle. | | | Right Ventricle: The right ventricle is normal in size and function. | | | Left Atrium: The left atrium is normal in size. Right Atrium: The | | | right atrium is normal in size. Aortic Valve: Trace amount of aortic | | | regurgitation. Aortic Valve: The aortic valve area by continuity | | | equation is 1.9cm Aortic Valve: The maximum velocity across the | | | aortic valve is 2.38m/s Aortic Valve: Peak/mean gradient across the | | | valve is 22.82mmHg/11.76mmHg. Bioprosthetic Aortic Valve: TAVR is | | | well seated with no evidence of stenosis. Mitral Valve: The mitral | | | valve is normal. Mitral Valve: There is trace mitral regurgitation. | | | Mitral Valve: No evidence of MVP. Tricuspid Valve: The tricuspid | | | valve appears structurally normal. Tricuspid Valve: Trace tricuspid | | | regurgitation present. Tricuspid Valve: There is no evidence of | | | pulmonary hypertension. Tricuspid Valve: The right ventricular | | | systolic pressure (pulmonary artery systolic pressure), as measured by | | | Doppler, is 27.28mmHg. Pulmonic Valve: The pulmonic valve was not | | | well visualized. Pericardium: There is no pericardial effusion. | | | IVC/Hepatic Veins: The IVC is normal size (1.5-2.5cm) and collapses | | | >50% with sniff, consistent with central venous pressures of 5-10mmHg. | | | Aorta: The aortic root, ascending aorta and aortic arch are normal. | | | Mass: No mass visualized Thrombus: No clot visualized Thrombus: No | | | vegetation visualized. Septum: No ASD observed. Septum: No VSD | | | observed. MEASUREMENTS Ao asc: 3.68 cm Ao | | | Diam: 3.[address] junct: 3.29 cm IVC: 2.08 cm LA Diam: | | | 3.97 cm LA Major: 4.32 cm EDV(Teich): 165.51 ml IVSd: | | | 1.01 cm LVIDd: 5.78 cm LVPWd: 0.95 cm LVOT Area: 3.90 cm2 | | | LVOT Diam: 2.23 cm %FS: 24.01 % EF(Teich): 47.16 % | | | ESV(Teich): 87.44 ml LVIDs: 4.39 cm SV(Teich): 78.06 ml RA | | | Major: 4.82 cm RV Major: 7.30 cm RVIDd: 2.71 cm TV Karoline | | | Diam: 3.41 cm Ao Root: 3.47 cm Ao Diam SVals: 3.67 cm LVEF | | | MOD A2C: 51.29 % SV MOD A2C: 86.77 ml LVEF MOD A4C: 51.76 | | | % SV MOD A4C: 83.57 ml EF Biplane: 51.81 % LVEDV MOD BP: | | | 165.47 ml LVESV MOD BP: 79.72 ml LVEDV MOD A2C: 169.18 ml | | | LVLd A2C: 9.40 cm LVEDV MOD A4C: 161.45 ml LVLd A4C: 9.47 | | | cm LVESV MOD A2C: 82.40 ml LVLs A2C: 8.22 cm LVESV MOD A4C: | | | 77.88 ml LVLs A4C: 8.25 cm LAESV(A-L): 63.57 ml LAESV | | | Index (A-L): 30.71 ml/m2 LAAs A2C: 19.45 cm2 LAESV A-L A2C: | | | 59.28 ml LALs A2C: 5.41 cm LAAs A4C: 17.66 cm2 LAESV A-L | | | A4C: 57.74 ml LALs A4C: 4.58 cm RAAs: 13.45 cm2 RAESV A-L: | | | 30.73 ml RAESV MOD: 29.94 ml RALs: 4.99 cm TAPSE: 2.09 | | | cm AV maxP.82 mmHg AV meanP.76 mmHg AV Vmax: | | | 2.38 m/s AV Vmean: 1.59 m/s AV VTI: 46.73 cm ZEKE Vmax: | | | 1.70 cm2 ZEKE (VTI): 1.87 cm2 LVOT maxP.30 mmHg LVOT | | | meanP.22 mmHg LVSI Dopp: 42.36 ml/m2 LVSV Dopp: 87.69 | | | ml LVOT Vmax: 1.03 m/s LVOT Vmean: 0.67 m/s LVOT VTI: | | | 22.43 cm MV A Doe: 1.08 m/s MV Dec [place]: 3.97 m/s2 MV DecT: | | | 163.90 ms MV E Doe: 0.65 m/s MV E/A Ratio: 0.60 MV PHT: | | | 47.53 ms MVA By PHT: 4.62 cm2 Septal e': 0.04 m/s Septal | | | E/e': 13.31 Lateral e': 0.09 m/s Lateral E/e': 7.19 RAP: | | | 5 mmHg RVSP: 27.27 mmHg TR maxP.27 mmHg TR Vmax: | | | 2.35 m/s Precast Molder: LYLY Authenticated by: TIAGO DANGELO MD | | | Report Date/Time: -- [id number] | | + + + + + | Procedure Note | + + | Elmo Rubio Conversion - 01/28/2019 4:09 PM PDT Patient Name: Neal VITAL | | of : 1945 Performing Physician: TIAGO DANGELO, | | ------REPORT | | ADDENDED------INDICATIONS S/P TAVR CONCLUSIONS 1. Overall left | | ventricular systolic function is normal with, an EF between 60 - 65 %.2. The right | | ventricle is normal in size and function.3. 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 4. There are no significant changes | | noted in comparison to the previous echocardiographic study, done 03/13/17. | | FINDINGS--------ECG rhythm: Sinus rhythm.Study: A 2-dimensional transthoracic | | echocardiogram with m-mode, spectral and color flow Doppler was perfomed.Study: This was | | a technically adequate study.Left Ventricle: Overall left ventricular systolic function | | is normal with, an EF between 60 - 65 %.Left Ventricle: The left ventricle is mildly | | dilated.Left Ventricle: No regional wall motion abnormalities.Left Ventricle: The | | diastolic filling pattern is normal for the age of the patient.Left Ventricle: Septal | | knuckle.Right Ventricle: The right ventricle is normal in size and function.Left Atrium: | | The left atrium is normal in size.Right Atrium: The right atrium is normal in | | size.Aortic Valve: Trace amount of aortic regurgitation.Aortic Valve: The aortic valve | | area by continuity equation is 1.9cm Aortic Valve: The maximum velocity across the | | aortic valve is 2.38m/sAortic Valve: Peak/mean gradient across the valve is | | 22.82mmHg/11.76mmHg. BioprostheticAortic Valve: TAVR is well seated with no evidence of | | stenosis.Mitral Valve: The mitral valve is normal.Mitral Valve: There is trace mitral | | regurgitation.Mitral Valve: No evidence of MVP.Tricuspid Valve: The tricuspid valve | | appears structurally normal.Tricuspid Valve: Trace tricuspid regurgitation | | present.Tricuspid Valve: There is no evidence of pulmonary hypertension.Tricuspid Valve: | | The right ventricular systolic pressure (pulmonary artery systolic pressure), as | | measured by Doppler, is 27.28mmHg.Pulmonic Valve: The pulmonic valve was not well | | visualized.Pericardium: There is no pericardial effusion.IVC/Hepatic Veins: The IVC is | | normal size (1.5-2.5cm) and collapses >50% with sniff, consistent with central venous | | pressures of 5-10mmHg.Aorta: The aortic root, ascending aorta and aortic arch are | | normal.Mass: No mass visualizedThrombus: No clot visualizedThrombus: No vegetation | | visualized.Septum: No ASD observed.Septum: No VSD observed. MEASUREMENTS Ao | | asc: 3.68 cmAo Diam: 3.[address] junct: 3.29 cmIVC: 2.08 cmLA Diam: 3.97 cmLA | | Major: 4.32 cmEDV(Teich): 165.51 mlIVSd: 1.01 cmLVIDd: 5.78 cmLVPWd: 0.95 | | cmLVOT Area: 3.90 sx1NUYO Diam: 2.23 cm%FS: 24.01 %EF(Teich): 47.16 %ESV(Teich): | | 87.44 mlLVIDs: 4.39 cmSV(Teich): 78.06 mlRA Major: 4.82 cmRV Major: 7.30 | | cmRVIDd: 2.71 cmTV Karoline Diam: 3.41 cmAo Root: 3.47 cmAo Diam SVals: 3.67 cmLVEF | | MOD A2C: 51.29 %SV MOD A2C: 86.77 mlLVEF MOD A4C: 51.76 %SV MOD A4C: 83.57 mlEF | | Biplane: 51.81 %LVEDV MOD BP: 165.47 mlLVESV MOD BP: 79.72 mlLVEDV MOD A2C: | | 169.18 mlLVLd A2C: 9.40 cmLVEDV MOD A4C: 161.45 mlLVLd A4C: 9.47 cmLVESV MOD A2C: | | 82.40 mlLVLs A2C: 8.22 cmLVESV MOD A4C: 77.88 mlLVLs A4C: 8.25 cmLAESV(A-L): | | 63.57 mlLAESV Index (A-L): 30.71 ml/m2LAAs A2C: 19.45 [id number] A-L A2C: 59.28 | | mlLALs A2C: 5.41 cmLAAs A4C: 17.66 [id number] A-L A4C: 57.74 mlLALs A4C: 4.58 | | cmRAAs: 13.45 [id number] A-L: 30.73 mlRAESV MOD: 29.94 mlRALs: 4.99 cmTAPSE: | | 2.09 cmAV maxP.82 mmHgAV meanP.76 mmHgAV Vmax: 2.38 m/Apoorva Vmean: 1.59 | | m/Apoorva VTI: 46.73 cmAVA Vmax: 1.70 cm2AVA (VTI): 1.87 it7MCDZ maxP.30 | | mmHgLVOT meanP.22 mmHgLVSI Dopp: 42.36 ml/m2LVSV Dopp: 87.69 mlLVOT Vmax: | | 1.03 m/sLVOT Vmean: 0.67 m/sLVOT VTI: 22.43 cmMV A Doe: 1.08 m/sMV Dec [place]: | | 3.97 m/s2MV DecT: 163.90 msMV E Doe: 0.65 m/sMV E/A Ratio: 0.60MV PHT: 47.53 | | msMVA By PHT: 4.62 ya9Blegeb e': 0.04 m/sSeptal E/e': 13.31Lateral e': 0.09 | | m/sLateral E/e': 7.19RAP: 5 mmHgRVSP: 27.27 mmHgTR maxP.27 mmHgTR Vmax: | | 2.35 m/s Precast Molder: DHAuthenticated by: Michelle MÁRQUEZ Date/Time: -- | | [id number] IMPRESSION: 1. Overall left ventricular systolic function is | | normal with, an EF between 60 - 65 %.2. The right ventricle is normal in size and | | function.3. 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 4. There are no significant changes noted in comparison to the | | previous echocardiographic study, done 03/13/17. | | | |Ao asc: 3.68 cm | |Ao Diam: 3.85 cm | |Ao st junct: 3.29 cm | |IVC: 2.08 cm | |LA Diam: 3.97 cm | |LA Major: 4.32 cm | |EDV(Teich): 165.51 ml | |IVSd: 1.01 cm | |LVIDd: 5.78 cm | |LVPWd: 0.95 cm | |LVOT Area: 3.90 cm2 | |LVOT Diam: 2.23 cm | |%FS: 24.01 % | |EF(Teich): 47.16 % | |ESV(Teich): 87.44 ml | |LVIDs: 4.39 cm | |SV(Teich): 78.06 ml | |RA Major: 4.82 cm | |RV Major: 7.30 cm | |RVIDd: 2.71 cm | |TV Karoline Diam: 3.41 cm | |Ao Root: 3.47 cm | |Ao Diam SVals: 3.67 cm | |LVEF MOD A2C: 51.29 % | |SV MOD A2C: 86.77 ml | |LVEF MOD A4C: 51.76 % | |SV MOD A4C: 83.57 ml | |EF Biplane: 51.81 % | |LVEDV MOD BP: 165.47 ml | |LVESV MOD BP: 79.72 ml | |LVEDV MOD A2C: 169.18 ml | |LVLd A2C: 9.40 cm | |LVEDV MOD A4C: 161.45 ml | |LVLd A4C: 9.47 cm | |LVESV MOD A2C: 82.40 ml | |LVLs A2C: 8.22 cm | |LVESV MOD A4C: 77.88 ml | |LVLs A4C: 8.25 cm | |LAESV(A-L): 63.57 ml | |LAESV Index (A-L): 30.71 ml/m2 | |LAAs A2C: 19.45 cm2 | |LAESV A-L A2C: 59.28 ml | |LALs A2C: 5.41 cm | |LAAs A4C: 17.66 cm2 | |LAESV A-L A4C: 57.74 ml | |LALs A4C: 4.58 cm | |RAAs: 13.45 cm2 | |RAESV A-L: 30.73 ml | |RAESV MOD: 29.94 ml | |RALs: 4.99 cm | |TAPSE: 2.09 cm | |AV maxP.82 mmHg | |AV meanP.76 mmHg | |AV Vmax: 2.38 m/s | |AV Vmean: 1.59 m/s | |AV VTI: 46.73 cm | |ZEKE Vmax: 1.70 cm2 | |ZEKE (VTI): 1.87 cm2 | |LVOT maxP.30 mmHg | |LVOT meanP.22 mmHg | |LVSI Dopp: 42.36 ml/m2 | |LVSV Dopp: 87.69 ml | |LVOT Vmax: 1.03 m/s | |LVOT Vmean: 0.67 m/s | |LVOT VTI: 22.43 cm | |MV A Doe: 1.08 m/s | |MV Dec [place]: 3.97 m/s2 | |MV DecT: 163.90 ms | |MV E Doe: 0.65 m/s | |MV E/A Ratio: 0.60 | |MV PHT: 47.53 ms | |MVA By PHT: 4.62 cm2 | |Septal e': 0.04 m/s | |Septal E/e': 13.31 | |Lateral e': 0.09 m/s | |Lateral E/e': 7.19 | |RAP: 5 mmHg | |RVSP: 27.27 mmHg | |TR maxP.27 mmHg | |TR Vmax: 2.35 m/s | | | |Precast Molder: LYLY | |Authenticated by: TIAGO DANGELO MD | |Report Date/Time: -- [id number] | | | |IMPRESSION: | |1. Overall left ventricular systolic function is normal with, an EF between 60 - 65 %. | |2. The right ventricle is normal in size and function. | |3. 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 4. There are no significant changes noted in comparison to the previous echocardiogra [facility] study, done 03/13/17. | + + documented in this encounter Visit Diagnoses Not on filedocumented in this encounter"
--- OUTSIDE RECORDS SUMMARY | ~2019-12-23 | XMS | Encounter Summary ---
Demographics + + + | Address | [address] | | | [place] [address] | + + + | Home Phone | | + + + | Preferred Language | Unknown | + + + | Marital Status | | + + + | Caodaism Affiliation | Unknown | + + + | Race | Unknown | + + + | Ethnic Group | Unknown | + + + Author + + + | Author | [facility] | | | and [place] | + + + | Organization | [facility] | | [...] [address] | | | | | [address] | | + + + + + | Parth Vital | ECON | Unknown | | + + + + + Care Team Providers + +------+ + | Care Vamp Presser Name | Role | Phone | + +------+ + | Star Doll MD | PCP | | + +------+ + Encounter Details +--------+ + + + + | Date | Type | Department | Care Team | Description | +--------+ + + + + | 08/13/ | Orders Only | [facility] | Jeanmarie Ly MD | | | 2015 | | NEPHROLOGY [place] | [address] [place] | | | | | [address] [place] | [address] [place], [place] | | | | | [address] [place], [place] | [address] | | | | | [address] | | | | | | [phone] | | | +--------+ + + + [...] + | HEMOGLOBIN AND | Routin | 08/14/2015 | | Results for this | | HEMATOCRIT | e | 12:00 AM | | procedure are in the | | | | PST | | results section. | + +--------+ + + + | RENAL FUNCTION PANEL | Routin | 08/14/2015 | | Results for this | | | e | 12:00 AM | | procedure are in the | | | | PST | | results section. | + +--------+ + + + documented in this encounter Results Hemoglobin and Hematocrit (08/14/2015 12:00 AM PST) + + + + [...] + + + + | Hematocrit, | 31.6 (A) | 41 - 50 % | [...] + +---------+ + + Renal Function Panel (08/14/2015 12:00 AM PST) + + + + + + | Component | Value | Ref Range | Performed | Pathologist | | | | | At | Signature | + + + + + + | Glucose, | 270 (A) | 70 - 100 mg/dL | EXTERNAL | | | Fasting | | | LAB | | + + + + + + | BUN | 61 (A) | 6 - 23 mg/dL | EXTERNAL | | | | | | LAB | | + + + + + + | Creatinine | 6.10 (A) | 0.70 - 1.18 | EXTERNAL [...] + + + | Anion Gap | 15.9 | 7 - 21 mmol/L | EXTERNAL | | | | | | LAB | | + + + + + + | eGFR if not | | | EXTERNAL | | | | | | LAB | | | DOMINICAN | | | | | + + + + + + | Phosphorus, | 5.8 (A) | 2.5 - 5.0 | EXTERNAL | | | Inorganic | | | LAB | | + + + + + + | BUN/Creatin | 10.0 | 6.0 - 28.6 | EXTERNAL | | | ine Ratio | | | LAB | | + + + + + + | Calcium | 10.1 | 8.4 - 10.2 | EXTERNAL | | | | | mg/dL | LAB | | + + + + + + | Estimated | 9 (A) | 60 - 140 mg/dL | [...]
--- OUTSIDE RECORDS SUMMARY | ~2019-12-23 | XMS | Encounter Summary ---
Demographics + + + | Address | [address] | | | [place] [address] | + + + | Home Phone | | + + + | Preferred Language | Unknown | + + + | Marital Status | | + + + | Presybeterian Affiliation | Unknown | + + + | Race | Unknown | + + + | Ethnic Group | Unknown | + + + Author + + + | Author | [facility] | | | and [place] | + + + | Organization | [facility] | | | [...] [place] | | | | | [address] | | + + + + + | Parth Vital | ECON | Unknown | | + + + + + Care Team Providers + +------+ + | Care Field Map Technician Name | Role | Phone | + +------+ + | Star Doll MD | PCP | | + +------+ + Reason for Visit +--------+--------+ + | Reason | Onset | Comments | | | Date | | +--------+--------+ + | Other | 02/26/ | | | | 2012 | | +--------+--------+ + Encounter Details +--------+ + + + + | Date | Type | Department | Care Team | Description | +--------+ + + + + | 02/26/ | Telephone | [facility] | Unknown, | Other | | 2012 | | Group Cardiology | MD Wu Fall | | | | | [address] [facility] | [phone] | | | | | [place], | | | | | | [place] [address] | | | | | | [phone] | | | +--------+ + + + [...] this encounter Miscellaneous Notes Telephone Encounter - Simi Quezada RN - 02/26/2013 11:54 [address] [facility]: office phone: [phone]. Spoke with the patient's daughter, the referral was faxed y to our main fax que. Scheduled the patient for Thursday 03/01 with Sulema. Will be melba perales for the referral. elephone Encounter - Afshan Sahni - 02/26/2013 9:26 AM PDTPt daughter romero d in regards to a referral that should have been received from from [facility]. Pt has a lot of symptoms of sleeping all the time, exhaustion, and needs to be seen OFELIAWu bach in [place] but wants to be seen here. Daughter would like a follow up call soon to schedule. documented in this encounter Plan of Treatment Not on filedocumented as of this encounter Visit Diagnoses Not on filedocumented in this encounter"
--- OUTSIDE RECORDS SUMMARY | ~2019-12-23 | XMS | Encounter Summary ---
Demographics + + + | Address | [address] | | | [place] [address] | + + + | Home Phone | | + + + | Preferred Language | Unknown | + + + | Marital Status | | + + + | Jehovah'S Witness Affiliation | Unknown | + + + | Race | Unknown | + + + | Ethnic Group | Unknown | + + + Author + + + | Author | [facility] | | | and [place] | + + + | Organization | [facility] | | | [...] [address] | | | | | [address] | | + + + + + | Parth Vital | ECON | Unknown | | + + + + + Care Team Providers + +------+ + | Care Asset Coordinator Name | Role | Phone | + +------+ + | Star Doll MD | PCP | | + +------+ + Encounter Details +--------+ + + + + | Date | Type | Department | Care Team | Description | +--------+ + + + + | 10/15/ | Orders Only | [facility] | Conversion | | | 2016 | | NEPRHOLOGY [place] | Transaction, | | | | | [address] | Provider Unknown | | | | | [address] [place], [place] | | | | | | [address] | (Fax) | | | | | [phone] | | | +--------+ + + + [...] + | HEMOGLOBIN AND | Routin | 10/16/2015 | | Results for this | | HEMATOCRIT | e | 12:00 AM | | procedure are in the | | | | PDT | | results section. | + +--------+ + + + | RENAL FUNCTION PANEL | Routin | 10/16/2015 | | Results for this | | | e | 12:00 AM | | procedure are in the | | | | PDT | | results section. | + +--------+ + + + documented in this encounter Results Hemoglobin and Hematocrit (10/16/2015 12:00 AM PDT) + + + + + + | Component | Value | Ref Range | Performed | Pathologist | | | | | At | Signature | + + + + + + | Hemoglobin | 10.3 (A) | 13.5 - 18.0 | EXTERNAL [...] + +---------+ + + Renal Function Panel (10/16/2015 12:00 AM PDT) + + + + + + | Component | Value | Ref Range | Performed | Pathologist | | | | | At | Signature | + + + + + + | Glucose, | 217 (A) | 70 - 100 mg/dL | EXTERNAL | | | Fasting | | | LAB | | + + + + + + | BUN | 55 (A) | 6 - 23 mg/dL | EXTERNAL | | | | | | LAB | | + + + + + + | Creatinine | 5.85 (A) | 0.70 - 1.18 | EXTERNAL [...] + + + | Anion Gap | 17.9 | 7 - 21 mmol/L | EXTERNAL | | | | | | LAB | | + + + + + + | eGFR if not | | | EXTERNAL | | | | | | LAB | | | BERMUDIAN | | | | | + + + + + + | Phosphorus, | 5.5 (A) | 2.5 - 5.0 | EXTERNAL [...]
--- OUTSIDE RECORDS SUMMARY | ~2019-12-23 | XMS | Encounter Summary ---
Demographics + + + | Address | [address] | | | [place] [address] | + + + | Home Phone | | + + + | Preferred Language | Unknown | + + + | Marital Status | | + + + | Uatsdin Affiliation | Unknown | + + + | Race | Unknown | + + + | Ethnic Group | Unknown | + + + Author + + + | Author | [facility] | | | and [place] | + + + | Organization | [facility] | | | and [...] [address] | | | | | [address] | | + + + + + | Parth Vital | ECON | Unknown | | + + + + + Care Team Providers + +------+ + | Care Tree Trimming Supervisor Name | Role | Phone | + +------+ + | Star Doll MD | PCP | | + +------+ + Encounter Details +--------+ + + + + | Date | Type | Department | Care Team | Description | +--------+ + + + + | 08/22/ | Orders Only | [facility] | Jeanmarie Ly MD | | | 2014 | | NEPHROLOGY [place] | [address] [place] | | | | | [address] [place] | [address] [place], [place] | | | | | [address] [facility] [place] | [address] | | | | | [address] | | | | | | [phone] | | | +--------+ + + + [...] + | HEMOGLOBIN AND | Routin | 08/22/2014 | | Results for this | | HEMATOCRIT | e | 12:00 AM | | procedure are in the | | | | PDT | | results section. | + +--------+ + + + | RENAL FUNCTION PANEL | Routin | 08/22/2014 | | Results for this | | | e | 12:00 AM | | procedure are in the | | | | PDT | | results section. | + +--------+ + + + documented in this encounter Results Hemoglobin and Hematocrit (08/22/2014 12:00 AM PDT) + + + + + + | Component | Value | Ref Range | Performed | Pathologist | | | | | At | Signature | + + + + + + | Hemoglobin | 10.1 (A) | 13.5 - 18.0 | EXTERNAL | | | | | | LAB | | + + + + + + | Hematocrit, | 30.0 (A) | 41 - 50 % | [...] + +---------+ + + Renal Function Panel (08/22/2014 12:00 AM PDT) + + + + + + | Component | Value | Ref Range | Performed | Pathologist | | | | | At | Signature | + + + + + + | Glucose, | 188 (A) | 70 - 100 mg/dL | EXTERNAL | | | Fasting | | | LAB | | + + + + + + | BUN | 40 (A) | 6 - 23 mg/dL | EXTERNAL | | | | | | LAB | | + + + + + + | Creatinine | 3.66 (A) | 0.70 - 1.18 | EXTERNAL [...] + + + | Anion Gap | 14.2 | 7 - 21 mmol/L | EXTERNAL [...] + + + + | BUN/Creatin | 10.9 | 6.0 - 28.6 | EXTERNAL | | | ine Ratio | | | LAB | | + + + + + + | Calcium | 9.4 | 8.4 - 10.2 | EXTERNAL | | | | | mg/dL | LAB | | + + + + + + | Estimated | 17 | mg/dL | EXTERNAL | | | [...]
--- OUTSIDE RECORDS SUMMARY | ~2019-12-23 | XMS | Encounter Summary ---
Demographics + + + | Address | [address] | | | [place] [address] | + + + | Home Phone | | + + + | Preferred Language | Unknown | + + + | Marital Status | | + + + | Faith Affiliation | Unknown | + + + | Race | Unknown | + + + | Ethnic Group | Unknown | + + + Author + + + | Author | [facility] | | | and [place] | + + + | Organization | [facility] | | | and [...] [address] | | | | | [address] | | + + + + + | Parth Vital | ECON | Unknown | | + + + + + Care Team Providers + +------+ + | Care Linux Kernel Engineer Name | Role | Phone | + +------+ + | Star Doll MD | PCP | | + +------+ + Encounter Details +--------+ + + + + | Date | Type | Department | Care Team | Description | +--------+ + + + + | 01/28/ | Orders Only | [facility] | Jeanmarie Ly MD | | | 2016 | | NEPRHOLOGY [place] | [address] | | | | | [address] | [address] [place], [place] | | | | | [address] [place], [place] | [address] | | | | | [address] | | | | | | [phone] | | | +--------+ + + + [...] | RENAL FUNCTION PANEL | Routin | 01/29/2016 | | Results for this | | | e | 12:00 AM | | procedure are in the | | | | PDT | | results section. | + +--------+ + + + | IRON AND IRON | Routin | 01/23/2016 | | Results for this | | BINDING CAPACITY | e | 10:30 AM | | procedure are in the | | | | PDT | | results section. | + +--------+ + + + | URINALYSIS, REFLEX | Routin | 01/23/2016 | | Results for this | | MICROSCOPIC AND/OR | e | 10:30 AM | | procedure are in the | | CULTURE | | PDT | | results section. | + +--------+ + + + | HEMOGLOBIN AND | Routin | 01/23/2016 | | Results for this | | HEMATOCRIT | e | 10:30 AM | | procedure are in the | | | | PDT | | results section. | + +--------+ + + + | HEMOGLOBIN AND | Routin | 01/23/2016 | | | | HEMATOCRIT | e | 10:30 AM | | | | | | PDT | | | + +--------+ + + + | PROTEIN/CREATININE | Routin | 01/23/2016 | | Results for this | | RATIO, URINE | e | 10:30 AM | | procedure are in the | | | | PDT | | results section. | + +--------+ + + + | PARATHYROID HORMONE, | Routin | 01/23/2016 | | Results for this | | INTACT | e | 10:30 AM | | procedure are in the | | | | PDT | | results section. | + +--------+ + + + | MAGNESIUM | Routin | 01/23/2016 | | Results for this | | | e | 10:30 AM | | procedure are in the | | | | PDT | | results section. | + +--------+ + + + | FERRITIN | Routin | 01/23/2016 | | Results for this | | | e | 10:30 AM | | procedure are in the | | | | PDT | | results section. | + +--------+ + + + | RENAL FUNCTION PANEL | Routin | 01/23/2016 | | Results for this | | | e | 10:30 AM | | procedure are in the | | | | PDT | | results section. | + +--------+ + + + documented in this encounter Results Renal Function Panel (01/29/2016 12:00 AM PDT) + + + + + + | Component | Value | Ref Range | Performed | Pathologist | | | | | At | Signature | + + + + + + | Glucose, | 135 (A) | 70 - 100 mg/dL | EXTERNAL | | | Fasting | | | LAB | | + + + + + + | BUN | 65 (A) | 6 - 23 mg/dL | EXTERNAL | | | | | | LAB | | + + + + + + | Creatinine | 7.30 (A) | 0.70 - 1.18 | EXTERNAL [...] + + + + | K | 4.3 | 3.6 - 5.1 | EXTERNAL | | | | | mmol/L | LAB | | + + + + + + | Cl | 106 | 95 - 112 mmol/L | EXTERNAL | | | | | | LAB | | + + + + + + | CO2 | 18 (A) | 19 - 31 mmol/L | EXTERNAL | | | | | | LAB | | + + + + + + | Anion Gap | 19.3 | 7 - 21 mmol/L | EXTERNAL | | | | | | LAB | | + + + + + + | eGFR if not | | | EXTERNAL | | | | | | LAB | | | GUAMANIAN | | | | | + + + + + + | Phosphorus, | 6.2 (A) | 2.5 - 5.0 | EXTERNAL | | | Inorganic | | | LAB | | + + + + + + | BUN/Creatin | 8.9 | 6.0 - 28.6 | EXTERNAL | | | ine Ratio | | | LAB | | + + + + + + | Calcium | 9.3 | 8.4 - 10.2 | EXTERNAL | | | | | mg/dL | LAB | | + + + + + + | Estimated | 7 | mg/dL | EXTERNAL | | | [...] + +---------+ + + Hemoglobin and Hematocrit (01/23/2016 10:30 AM PDT) + + + + + [...] + + + + | Hematocrit, | 30.6 (A) | 41 - 50 % | [...] + +---------+ + + Hemoglobin and Hematocrit (01/23/2016 10:30 AM PDT) + +-------+ + + + | Component | Value | Ref Range | Performed | Pathologist | | | | | At | Signature | + +-------+ + + + | Hemoglobin | | g/dL | EXTERNAL | | | | | | LAB | | + +-------+ + + + | Hematocrit, | | % | EXTERNAL | | | [...] | | + +---------+ + + Urinalysis, Reflex Microscopic and/or Culture (01/23/2016 10:30 AM PDT) + + + + + [...] + | Spec Grav, | 1.015 | 1.005 - 1.030 | [...] + + + | Glucose, | Comment: 300 | | EXTERNAL | | | Urine [...] + + Iron and Iron Binding Capacity (01/23/2016 10:30 AM PDT) + +-------+ + + + | Component | Value | Ref Range | Performed | Pathologist | | | | | At | Signature | + +-------+ + + + | Iron | 57.62 | 38 - 160 | EXTERNAL | | | | | | LAB | | + +-------+ + + + | Iron | 23.5 | 20 - 55 | EXTERNAL | [...] + +---------+ + + Protein/Creatinine Ratio, Urine (01/23/2016 10:30 AM PDT) + + + + + + | Component | Value | Ref Range | Performed | Pathologist | | | | | At | Signature | + + + + + + | Protein/Cre | 5000.0 (A) | 0 - 150 | EXTERNAL [...] + +---------+ + + Parathyroid Hormone, Intact (01/23/2016 10:30 AM PDT) + + + + + + | Component | Value | Ref Range | Performed | Pathologist | | | | | At | Signature | + + + + + + | PTH INTACT | 69.48 (A) | 15 - 65 pg/mL | EXTERNAL [...] | | + +---------+ + + Magnesium (01/23/2016 10:30 AM PDT) + +-------+ + + + [...] | | + +---------+ + + Ferritin (01/23/2016 10:30 AM PDT) + +-------+ + + + | Component | Value | Ref Range | Performed | Pathologist | | | | | At | Signature | + +-------+ + + + | Ferritin, | 353.9 | 30 - 400 ng/mL | EXTERNAL [...] + +---------+ + + Renal Function Panel (01/23/2016 10:30 AM PDT) + + + + + + | Component | Value | Ref Range | Performed | Pathologist | | | | | At | Signature | + + + + + + | Glucose, | 192 (A) | 70 - 100 mg/dL | EXTERNAL | | | Fasting | | | LAB | | + + + + + + | BUN | 62 (A) | 6 - 23 mg/dL | EXTERNAL | | | | | | LAB | | + + + + + + | Creatinine | 7.85 (A) | 0.70 - 1.18 | EXTERNAL | | | | | mg/dL | LAB | | + + + + + + | PHOSPHORUS | | mg/dL | EXTERNAL | | | | | | LAB | | + + + + + + | Albumin | 3.6 | 3.5 - 5.0 | EXTERNAL | [...] + + + + | Cl | 106 | 95 - 112 mmol/L | EXTERNAL | | | | | | LAB | | + + + + + + | CO2 | 20 | 19 - 31 mmol/L | EXTERNAL | | | | | | LAB | | + + + + + + | Anion Gap | 18.1 | 7 - 21 mmol/L | EXTERNAL | | | | | | LAB | | + + + + + + | eGFR if not | | | EXTERNAL | | | | | | LAB | | | GUAMANIAN | | | | | + + + + + + | Phosphorus, | 6.7 (A) | 2.5 - 5.0 | EXTERNAL | | | Inorganic | | | LAB | | + + + + + + | BUN/Creatin | 7.9 | 6.0 - 28.6 | EXTERNAL | | | ine Ratio | | | LAB | | + + + + + + | Calcium | 9.3 | 8.4 - 10.2 | EXTERNAL | | | | | mg/dL | LAB | | + + + + + + | Estimated | 7 | mg/dL | EXTERNAL | | | [...]
--- OUTSIDE RECORDS SUMMARY | ~2019-12-23 | XMS | Encounter Summary ---
Demographics + + + | Address | [address] | | | [place] [address] | + + + | Home Phone | | + + + | Preferred Language | Unknown | + + + | Marital Status | | + + + | Worship Affiliation | Unknown | + + + | Race | Unknown | + + + | Ethnic Group | Unknown | + + + Author + + + | Author | [facility] | | | and [place] | + + + | Organization | [facility] | | | and [...] [address] | | | | | [address] | | + + + + + | Parth Vital | ECON | Unknown | | + + + + + Care Team Providers + +------+ + | Care Apprentice Architect Name | Role | Phone | + +------+ + | Star Doll MD | PCP | | + +------+ + Encounter Details +--------+ + + + + | Date | Type | Department | Care Team | Description | +--------+ + + + + | 03/04/ | Orders Only | [facility] | Jeanmarie Ly MD | | | 2014 | | NEPHROLOGY [place] | [address] [place] | | | | | [address] [place] | [address] [place], [place] | | | | | [address] [place], [place] | [address] | | | | | [address] | | | | | | [phone] | | | +--------+ + + + [...] + | BASIC METABOLIC | Routin | 08/10/2014 | | Results for this | | PANEL | e | 12:00 AM | | procedure are in the | | | | PST | | results section. | + +--------+ + + + documented in this encounter Results Basic Metabolic Panel (08/10/2014 12:00 AM PST) + + + + + + | Component | Value | Ref Range | Performed | Pathologist | | | | | At | Signature | + + + + + + | Glucose, | 170 (A) | 70 - 100 mg/dL | EXTERNAL | | | Fasting | | | LAB | | + + + + + + | BUN | 41 (A) | 6 - 23 mg/dL | EXTERNAL | | | | | | LAB | | + + + + + + | Creatinine | 4.21 (A) | 0.70 - 1.18 | EXTERNAL [...] + + + + | Na | 141 | 132 - 143 | EXTERNAL | [...]
--- OUTSIDE RECORDS SUMMARY | ~2019-12-23 | XMS | Encounter Summary ---
Demographics + + + | Address | [address] | | | [place] [address] | + + + | Home Phone | | + + + | Preferred Language | Unknown | + + + | Marital Status | | + + + | Catholic Affiliation | Unknown | + + + | Race | Unknown | + + + | Ethnic Group | Unknown | + + + Author + + + | Author | [facility] | | | and [place] | + + + | Organization | [facility] | | | [...] [address] | | | | | [address] | | + + + + + | Parth Vital | ECON | Unknown | | + + + + + Care Team Providers + +------+ + | Care Roofing Plant Supervisor Name | Role | Phone | + +------+ + | Star Doll MD | PCP | | + +------+ + Encounter Details +--------+ + + + + | Date | Type | Department | Care Team | Description | +--------+ + + + + | 03/01/ | Orders Only | [facility] | Wendy Shelby | SOB (shortness of | | 2012 | | Group Cardiology | [place] [address] | breath) | | | | [address] | [address] | | | | | [address], | [place] [address] | | | | | [place] [address] | [phone] | | | | | [phone] | | | +--------+ + + + [...] | + +--------+ + + + | TSH, REFLEX FREE T4 | Routin | 03/01/2013 | SOB (shortness of | Results for this | | | e | 11:52 AM | breath) | procedure are in the | | | | PDT | | results section. | + +--------+ + + + documented in this encounter Results TSH, Reflex Free T4 (03/01/2013 11:52 AM PDT) + +-------+ + + + | Component | Value | Ref Range | Performed | Pathologist | | | | | At | Signature | + +-------+ + + + | TSH | 1.52 | 0.45 - 5.10 | [facility] | | | | | uIU/mL | [facility] | | | | | | [facility]ORE | | | | | | LABORATORY | | | | | | (I) | | + +-------+ + + + + + | Specimen | + + | Blood specimen | | (specimen) | + + + + + + + | Performing | Address | City/State/Zipcode | Phone Number | | Organization | | | | + + + + + | [facility] [place] | [address] | [place] [address] | [phone] | | [facility] (I) | | | | + + + + + documented in this encounter Visit Diagnoses + + | Diagnosis | + + | SOB (shortness of breath) Shortness of breath | + + documented in this encounter"
--- OUTSIDE RECORDS SUMMARY | ~2019-12-23 | XMS | Encounter Summary ---
Demographics + + + | Address | [address] | | | [place] [address] | + + + | Home Phone | | + + + | Preferred Language | Unknown | + + + | Marital Status | | + + + | Islam Affiliation | Unknown | + + + | Race | Unknown | + + + | Ethnic Group | Unknown | + + + Author + + + | Author | [facility] | | | and [place] | + + + | Organization | [facility] | | | [...] [address] | | | | | [address] | | + + + + + | Parth Vital | ECON | Unknown | | + + + + + Care Team Providers + +------+ + | Care Setup Technician Name | Role | Phone | + +------+ + | Star Doll MD | PCP | | + +------+ + Reason for Visit +--------+ + | Reason | Comments | +--------+ + | Other | Intake questionnaire | +--------+ + Encounter Details +--------+ + + + + | Date | Type | Department | Care Team | Description | +--------+ + + + + | 04/23/ | Telephone | [facility] | Zane Pina | Other (Intake | | 2015 | | [facility] | MD Candido [address] | questionnaire) | | | | KIDNEY TRANSPLANT | [facility] [address] [place], | | | | | [address] [facility] | [place] [address] | | | | | [address] [place], [place] | [phone] | | | | | [address] | | | | | | [phone] | | | +--------+ + + + [...] this encounter Miscellaneous Notes Telephone Encounter - Bri Kruse CMA - 04/24/2016 8:05 AM PSTFormatting of this note m ight be different from the original. Intake Questionnaire Verify Address/phone number: [address] [place] [address] Are you a citizen? [x] Yes [] No Resident Alien? [] Yes [] No Height : 5' 9" Weight: 195 lb BMI 28.8 Do you smoke? [x] No [] Yes: Packs per day? Chewing? [x] No [] Yes Do you use drugs? [x] No [] Yes If yes, what type: Medical Marijuana? [x] No [] Yes PCP Name: Dr. Doll Any testing on head? Carotid US? [x] No [] Yes If yes, where? CT Scan? [x] No [] Yes If yes, where? Do you have a Drive Shaft And Steering Post Repairer? [x] No [] Yes If yes, Drive Shaft And Steering Post Repairer's name: Pulmonary Function Tests? [x] No [] Yes If yes, where? Chest CT [] No [x] Yes If yes, [facility] [place] CXR? [] No [] Yes If yes, where? Do you have a Academic Adviser? [] No [x] Yes If yes, Cardiologists name: Perico Whitfield on, [facility] EKG? [] No [x] Yes If yes, where? [place] Stress Test? [] No [x] Yes If yes, where? IV 2 yrs, - [place] unsure of facili ty ECHO? [] No [x] Yes If yes, where? [place] Heart Cath? [] No [x] Yes If yes, where? [facility] Do you have a Stained Glass Installer? [] No [x] Yes If yes, Gastroenterologists name: Dr Urias Endoscopy? [] No [x] Yes If yes, where? [facility] 2 yrs, bleeding ulcer Colonoscopy? [] No [x] Yes If yes, where? 2 yrs, clear CT ABD/Pelvis? [] No [x] Yes If yes, where? [facility] Do you have a Urologist? [x] No [] Yes If yes, Urologists name: Renal US? [x] No [] Yes If yes, where? Cystoscopy? [x] No [] Yes If yes, where? Kidney Biopsy? [x] No [] Yes If yes, where? Have you had cancer? [x] No [] Yes If yes, Oncologists name: Biopsy done? [] No [x] Yes If yes, where? 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 [] No [x] Yes If yes, where? Heart procedure x3 Previous Transplant? [] No [] Yes If yes, where? Pap smear? [x] N/A [] No [] Yes If yes, where and on what date? Mammogram? [x] N/A [] No [] Yes If yes, where and on what date? Living Donor? [] No [x] Yes Poss Granddaughter Support? [] No [x] Yes - family Insurance? [] No [x] Yes Medicare, [employer] Dialysis? [] No [x] Yes [facility] [place], MWF 11am elephone Encounter - Bri Kruse CMA - 04/23/2016 4:17 PM PSTIntake Questionnaire: I called the patient today and went through the questionnaire with Sonnycieracarolyn (Spouse) and Mane crawford. We discussed returning the forms completed and signed in a timely fashion. The patie nt expressed good understanding. I will mail out a packet with the following forms: consen t, medical history, medication list and financial statement. documented in this enc ounter Plan of Treatment Not on filedocumented as of this encounter Visit Diagnoses Not on filedocumented in this encounter
--- OUTSIDE RECORDS SUMMARY | ~2019-12-23 | XMS | Encounter Summary ---
Demographics + + + | Address | [address] | | | [place] [address] | + + + | Home Phone | | + + + | Preferred Language | Unknown | + + + | Marital Status | | + + + | Sabianist Affiliation | Unknown | + + + | Race | Unknown | + + + | Ethnic Group | Unknown | + + + Author + + + | Author | [facility] | | | and [place] | + + + | Organization | [facility] | | | [...] [address] | | | | | [address] | | + + + + + | Parth Vital | ECON | Unknown | | + + + + + Care Team Providers + +------+ + | Care Captain Room Service Name | Role | Phone | + +------+ + | Star Doll MD | PCP | | + +------+ + Encounter Details +--------+---------+ + + + | Date | Type | Department | Care Team | Description | +--------+---------+ + + + | 12/30/ | Office | [facility] | Bebo Yu | YISEL (obstructive | | 2012 | Visit | SLEEP DISORDER [address] | MD [address] | sleep apnea) | | | | [address] [place] | [address] [place] | (Primary Dx) | | | | [place] [address] | [place] [address] | | | | | [phone] | [phone] | | | | | | | | +--------+---------+ + + + Social History [...] + + + | Blood Pressure | 122/60 | 12/30/2012 11:52 AM | | | | | PDT | | + + + + + | Pulse | 60 | 12/30/2012 11:52 AM | | | | | PDT | | + + + + + | Temperature | - | - | | + + + + + | Respiratory Rate | 16 | 12/30/2012 11:52 AM | | | | | PDT | | + + + + + | Oxygen Saturation | - | - | | + + + + + | Inhaled Oxygen | - | - | | | Concentration | | | | + + + + + | Weight | 102.4 kg (225 lb | 12/30/2012 11:52 AM | | | | 12.8 oz) | PDT | | + + + + + | Height | - | - | | + + + + + | Body Mass Index | 33.34 | 12/04/2012 8:58 AM | | | | | PDT | | + + + + + documented in this encounter Patient Instructions Patient Instructions Bebo Yu Jr., MD - 12/30/2012 12:02 PM PDTWear your CPAP at al l times while sleeping. Wake up at 7:30am every day. Bedtime no earlier than Midnight. Don't watch TV in your bedroom and DO NOT FALL ASLEEP IN YOUR CHAIR WATCHING TV. Only sleep in your bedroom. 1 2:04 PM PDT documented in this encounter Progress Notes Bebo Yu Jr., MD - 12/30/2012 12:15 PM Vivian Vital underwent attended hayde ysomnography on 12/15/2012 which revealed a latency to sleep onset of 9 minutes and a sleep ef ficiency of 63.8%. The percentages of the various stages of sleep were Abnormal. The amount of REM sleep was reduced. The arousal index was 55.7 which is high. The Respiratory Disturba nce Index was 40.3; the Apnea-Hypopnea Index was 23.6; and the Apnea-Index was 4.4. The Resp iratory Arousal Index was 41.9. The gabriella oxygen saturation recorded during sleep was 85.0% . The patient spent 1.1 minutes with an oxygen saturation of less than 88%. There were 0 Per iodic Limb Movements and the PLMS Arousal Index was 0.0. I've reviewed these results with [facility] patient and his . A: YISEL: I've reviewed this with the patient and his and I am advising CPAP therapy. [facility] mechanisms of action of CPAP in treating YISEL were discussed in detail with the patient. I' ve discussed desensitization techniques as well as some imagery techniques that can be helpf ul. I've discussed the use of heated humidity. And I've discussed our PAP Compliance Clinic. 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 P: APAP: 5-20cm F/u in PAP Compliance Clinic next week. Wear your CPAP at all times while sleeping. Wake up at 7:30am every day. Bedtime no earlier than Midnight. Don't watch TV in your bedroom and DO NOT FALL ASLEEP IN YOUR CHAIR WATCHING TV. Only sleep in your bedroom. Today, 15 minutes was spent face to face with the patient; the majority of time was spent chadwick patel. CC: Dr. Indigo Doll documented in [facility] encounter Plan of Treatment Not on filedocumented as of this encounter Visit Diagnoses + + | Diagnosis | + + | YISEL (obstructive sleep apnea) - Primary Obstructive sleep apnea (adult) (pediatric) | + + documented in this encounter"
--- OUTSIDE RECORDS SUMMARY | ~2019-12-23 | XMS | Encounter Summary ---
Demographics + + + | Address | [address] | | | [place] [address] | + + + | Home Phone | | + + + | Preferred Language | Unknown | + + + | Marital Status | | + + + | Anglican Affiliation | Unknown | + + + | Race | Unknown | + + + | Ethnic Group | Unknown | + + + Author + + + | Author | [facility] | | | and [place] | + + + | Organization | [facility] | | | [...] [place] | | | | | [address] | | + + + + + | Parth Vital | ECON | Unknown | | + + + + + Care Team Providers + +------+ + | Care Beam Machine Operator Name | Role | Phone | + +------+ + | Star Doll MD | PCP | | + +------+ + Reason for Visit + +--------+ + | Reason | Onset | Comments | | | Date | | + +--------+ + | Medication Refill | 07/13/ | | | | 2019 | | + +--------+ + Encounter Details +--------+--------+ + + + | Date | Type | Department | Care Team | Description | +--------+--------+ + + + | 07/13/ | Refill | [facility] | Caro Castillo | Medication Refill | | 2019 | | CARDIOLOGY [place] | [address] | | | | | [address] | [address] | | | | | [address] | [place] [address] | | | | | [place] | [phone] | | | | | [address] | | | | | | [phone] | | | +--------+--------+ + + + [...]
--- OUTSIDE RECORDS SUMMARY | ~2019-12-23 | XMS | Encounter Summary ---
Demographics + + + | Address | [address] | | | [place] [address] | + + + | Home Phone | | + + + | Preferred Language | Unknown | + + + | Marital Status | | + + + | Jain Affiliation | Unknown | + + + | Race | Unknown | + + + | Ethnic Group | Unknown | + + + Author + + + | Author | [facility] | | | and [place] | + + + | Organization | [facility] | | | [...] [address] | | | | | [address] | | + + + + + | Parth Vital | ECON | Unknown | | + + + + + Care Team Providers + +------+ + | Care Air Plant Engineer Name | Role | Phone | + +------+ + | Star Doll MD | PCP | | + +------+ + Encounter Details +--------+ + + + + | Date | Type | Department | Care Team | Description | +--------+ + + + + | 03/27/ | Orders Only | [facility] | Jeanmarie Ly MD | | | 2014 | | NEPRHOLOGY [place] | [address] | | | | | [address] | [address] [place], [place] | | | | | [address] [place], [place] | [address] | | | | | [address] | | | | | | [phone] | | | +--------+ + + + [...] | IRON AND IRON | Routin | 05/08/2015 | | Results for this | | BINDING CAPACITY | e | 12:00 AM | | procedure are in the | | | | PST | | results section. | + +--------+ + + + | URINALYSIS WITH | Routin | 05/08/2015 | | Results for this | | MICROSCOPIC IF | e | 12:00 AM | | procedure are in the | | INDICATED | | PST | | results section. | + +--------+ + + + | PARATHYROID HORMONE, | Routin | 05/08/2015 | | Results for this | | INTACT AND CALCIUM | e | 12:00 AM | | procedure are in the | | | | PST | | results section. | + +--------+ + + + | HEMOGLOBIN AND | Routin | 05/08/2015 | | Results for this | | HEMATOCRIT | e | 12:00 AM | | procedure are in the | | | | PST | | results section. | + +--------+ + + + | PROTEIN/CREATININE | Routin | 05/08/2015 | | Results for this | | RATIO, URINE | e | 12:00 AM | | procedure are in the | | | | PST | | results section. | + +--------+ + + + | MAGNESIUM | Routin | 05/08/2015 | | Results for this | | | e | 12:00 AM | | procedure are in the | | | | PST | | results section. | + +--------+ + + + | FERRITIN | Routin | 05/08/2015 | | Results for this | | | e | 12:00 AM | | procedure are in the | | | | PST | | results section. | + +--------+ + + + | RENAL FUNCTION PANEL | Routin | 05/08/2015 | | Results for this | | | e | 12:00 AM | | procedure are in the | | | | PST | | results section. | + +--------+ + + + | BASIC METABOLIC | Routin | 03/27/2015 | | Results for this | | PANEL | e | 12:00 AM | | procedure are in the | | | | PDT | | results section. | + +--------+ + + + documented in this encounter Results Hemoglobin and Hematocrit (05/08/2015 12:00 AM PST) + + + + + + | Component | Value | Ref Range | Performed | Pathologist | | | | | At | Signature | + + + + + + | Hemoglobin | 11.1 (A) | 13.5 - 18.0 | EXTERNAL | | | | | g/dL | LAB | | + + + + + + | Hematocrit, | 33.7 (A) | 41 - 50 % | [...] + + Iron and Iron Binding Capacity (05/08/2015 12:00 AM PST) + +-------+ + + + | Component | Value | Ref Range | Performed | Pathologist | | | | | At | Signature | + +-------+ + + + | Iron | 89.04 | 37 - 160 | EXTERNAL | | | | | | LAB | | + +-------+ + + + | Iron | 34.4 | 20 - 55 | EXTERNAL | [...] + + Parathyroid Hormone, Intact and Calcium (05/08/2015 12:00 AM PST) + +-------+ + + + | Component | Value | Ref Range | Performed | Pathologist | | | | | At | Signature | + +-------+ + + + | PTH Intact | 41.10 | 15 - 65 | EXTERNAL | | | | | | LAB | | + +-------+ + + + | Calcium | 9.4 | 8.4 - 10 | EXTERNAL | | | | [...] + +---------+ + + Protein/Creatinine Ratio, Urine (05/08/2015 12:00 AM PST) + + + + + + | Component | Value | Ref Range | Performed | Pathologist | | | | | At | Signature | + + + + + + | Protein/Cre | 3361.3 (A) | 0 - 150 | EXTERNAL [...] + + Urinalysis with Microscopic if Indicated (05/08/2015 12:00 AM PST) + + + + [...] | | + +---------+ + + Magnesium (05/08/2015 12:00 AM PST) + +-------+ + + + | Component | Value | Ref Range | Performed | Pathologist | | | | | At | Signature | + +-------+ + + + | Magnesium | 2.2 | 1.7 - 2.5 mg/dL | EXTERNAL [...] | | + +---------+ + + Ferritin (05/08/2015 12:00 AM PST) + + + + + + | Component | Value | Ref Range | Performed | Pathologist | | | | | At | Signature | + + + + + + | Ferritin, | 549.9 (A) | 30 - 400 ng/mL | [...] + +---------+ + + Renal Function Panel (05/08/2015 12:00 AM PST) + + + + + + | Component | Value | Ref Range | Performed | Pathologist | | | | | At | Signature | + + + + + + | Glucose, | 154 (A) | 70 - 100 mg/dL | EXTERNAL | | | Fasting | | | LAB | | + + + + + + | BUN | 62 (A) | 6 - 23 mg/dL | EXTERNAL | | | | | | LAB | | + + + + + + | Creatinine | 5.17 (A) | 0.70 - 1.18 | EXTERNAL [...] + + + | Anion Gap | 16.9 | 7 - 21 mmol/L | EXTERNAL | | | | | | LAB | | + + + + + + | eGFR if not | | | EXTERNAL | | | | | | LAB | | | [place] | | | | | + + + + + + | Phosphorus, | 5.1 (A) | 2.5 - 5.0 | EXTERNAL | | | Inorganic | | | LAB | | + + + + + + | BUN/Creatin | 12.0 | 6.0 - 28.6 | EXTERNAL | | | ine Ratio | | | LAB | | + + + + + + | Calcium | 9.4 | 8 - 10.2 mg/dL | EXTERNAL | | | | [...] + +---------+ + + Basic Metabolic Panel (03/27/2015 12:00 AM PDT) + + + + + + | Component | Value | Ref Range | Performed | Pathologist | | | | | At | Signature | + + + + + + | Glucose, | 194 (A) | 70 - 100 mg/dL | EXTERNAL | | | Fasting | | | LAB | | + + + + + + | BUN | 9.6 | 8.4 - 10.2 | EXTERNAL | | | | | mg/dL | LAB | | + + + + + + | Creatinine | 4.58 (A) | 0.70 - 1.18 | EXTERNAL [...] + + + | Anion Gap | 19.7 | 7 - 21 mmol/L | EXTERNAL | | | | | | LAB | | + + + + + + | Estimated | 13 (A) | 60 - 140 mg/dL | [...]
--- OUTSIDE RECORDS SUMMARY | ~2019-12-23 | XMS | Encounter Summary ---
Demographics + + + | Address | [address] | | | [place] [address] | + + + | Home Phone | | + + + | Preferred Language | Unknown | + + + | Marital Status | | + + + | Mormon Affiliation | Unknown | + + + | Race | Unknown | + + + | Ethnic Group | Unknown | + + + Author + + + | Author | [facility] | | | and [place] | + + + | Organization | [facility] | | | and [...] [address] | | | | | [address] | | + + + + + | Parth Vital | ECON | Unknown | | + + + + + Care Team Providers + +------+ + | Care Bi Report Developer Name | Role | Phone | + +------+ + | Star Doll MD | PCP | | + +------+ + Encounter Details +--------+ + + + + | Date | Type | Department | Care Team | Description | +--------+ + + + + | 05/29/ | Abstract | [facility] | Zane Pina | | | 2015 | | [facility] | MD Candido [address] | | | | | KIDNEY TRANSPLANT | [place] [address], | | | | | [address] [place] | [place] [address] | | | | | [address] [place] | [phone] | | | | | [address] | | | | | | [phone] | | | +--------+ + + + [...]
--- OUTSIDE RECORDS SUMMARY | ~2019-12-23 | XMS | Encounter Summary ---
Demographics + + + | Address | [address] | | | [place] [address] | + + + | Home Phone | | + + + | Preferred Language | Unknown | + + + | Marital Status | | + + + | Latter-Day Affiliation | Unknown | + + + | Race | Unknown | + + + | Ethnic Group | Unknown | + + + Author + + + | Author | [facility] | | | and [place] | + + + | Organization | [facility] | | | [...] [address] | | | | | [address] | | + + + + + | Parth Vital | ECON | Unknown | | + + + + + Care Team Providers + +------+ + | Care Vendor Quality Supervisor Name | Role | Phone | + +------+ + | Star Doll MD | PCP | | + +------+ + Encounter Details +--------+ + + + + | Date | Type | Department | Care Team | Description | +--------+ + + + + | 02/28/ | Hospital | [facility] | Conversion | | | 2016 | Encounter | [facility] | Transaction, | | | | | CLINIC [address] | Provider Unknown | | | | | [place], [place] | | | | | | [address] | (Fax) | | | | | [phone] | | | +--------+ + + + [...] + + + | Blood Pressure | 130/54 | 02/29/2016 4:39 PM | | | | | PDT | | + + + + + | Pulse | 52 | 02/29/2016 4:39 PM | | | | | PDT | | + + + + + | Temperature | - | - | | + + + + + | Respiratory Rate | - | - | | + + + + + | Oxygen Saturation | - | - | | + + + + + | Inhaled Oxygen | - | - | | | Concentration | | | | + + + + + | Weight | 99.4 kg (219 lb 2.2 | 02/29/2016 4:39 PM | | | | oz) | PDT | | + + + + + | Height | 175.3 cm (5' 9") | 02/29/2016 4:39 PM | | | | | PDT | | + + + + + | Body Mass Index | 32.36 | 02/29/2016 4:39 PM | | | | | PDT | | + + + + + documented in this encounter Medications at Time [...] | + +--------+ + + + | MRSA NAAT | Timed | 02/29/2016 | | Results for this | | | | 5:22 PM | | procedure are in the | | | | PDT | | results section. | + +--------+ + + + documented in this encounter Results MRSA NAAT (02/29/2016 5:22 PM PDT) + + | Specimen | + + | | + + + + + | Narrative | Performed At | + + + | [facility]) | EXTERNAL LAB | | Testing performed at [facility];[address] [place] [address];[place] [address] MRSA PCR | | | NEGATIVE Testing performed at | | | [address];[place] [address] | | + + + + +---------+ + + | Performing | Address | City/State/Zipcode | Phone Number | | Organization | | | | + +---------+ + + | EXTERNAL LAB | | | | + +---------+ + + documented in this encounter Visit Diagnoses Not on filedocumented in this encounter
--- OUTSIDE RECORDS SUMMARY | ~2019-12-23 | XMS | Encounter Summary ---
Demographics + + + | Address | [address] | | | [place] [address] | + + + | Home Phone | | + + + | Preferred Language | Unknown | + + + | Marital Status | | + + + | Mormonism Affiliation | Unknown | + + + | Race | Unknown | + + + | Ethnic Group | Unknown | + + + Author + + + | Author | [facility] | | | and [place] | + + + | Organization | [facility] | | [...] [place] | | | | | [address] | | + + + + + | Parth Vital | ECON | Unknown | | + + + + + Care Team Providers + +------+ + | Care Anesthesia Attending Name | Role | Phone | + +------+ + | Star Doll MD | PCP | | + +------+ + Reason for Visit + +--------+ + | Reason | Onset | Comments | | | Date | | + +--------+ + | Financial | 05/29/ | | | | 2015 | | + +--------+ + Encounter Details +--------+ + + + + | Date | Type | Department | Care Team | Description | +--------+ + + + + | 05/29/ | Documentati | [facility] | Gene Ribera, | Financial | | 2015 | on | [facility] | RN | | | | | KIDNEY TRANSPLANT | | | | | | [address] [place] | | | | | | [address] [place], [place] | | | | | | [address] | | | | | | [phone] | | | +--------+ + + + [...] documented as of this encounter Progress Notes Manisha Yuen - [facility]2016 10[id number] I spoke with melvin Feliciano[facility] , and explained the in and out of network benefits. She stated they will choos e to go in-network since the cost could be prohibitive. They would be required to pay 20% p er day for hospital stay. Letter sent to patient, dialysis and referring MD. documented in this encounter Plan of Treatment Not on filedocumented as of this encounter Visit Diagnoses Not on filedocumented in this encounter"
--- OUTSIDE RECORDS SUMMARY | ~2019-12-23 | XMS | Encounter Summary ---
Demographics + + + | Address | [address] | | | [place] [address] | + + + | Home Phone | | + + + | Preferred Language | Unknown | + + + | Marital Status | | + + + | Christian Affiliation | Unknown | + + + | Race | Unknown | + + + | Ethnic Group | Unknown | + + + Author + + + | Author | [facility] | | | and [place] | + + + | Organization | [facility] | | | [...] [place] | | | | | [address] | | + + + + + | Parth Vital | ECON | Unknown | | + + + + + Care Team Providers + +------+ + | Care Woodworking Machinist Name | Role | Phone | + +------+ + | Star Doll MD | PCP | | + +------+ + Encounter Details +--------+ + + + + | Date | Type | Department | Care Team | Description | +--------+ + + + + | 05/29/ | Abstract | [facility] | Gene Ribera, | | | 2015 | | [facility] | RN | | | | | KIDNEY TRANSPLANT | | | | | | [address] [place] | | | | | | [address] [place] | | | | | | [address] | | | | | | [phone] | | | +--------+ + + + [...]
--- OUTSIDE RECORDS SUMMARY | ~2019-12-23 | XMS | Encounter Summary ---
Demographics + + + | Address | [address] | | | [place] [address] | + + + | Home Phone | | + + + | Preferred Language | Unknown | + + + | Marital Status | | + + + | Sikhism Affiliation | Unknown | + + + | Race | Unknown | + + + | Ethnic Group | Unknown | + + + Author + + + | Author | [facility] | | | and [place] | + + + | Organization | [facility] | | [...] [address] | | | | | [address] | | + + + + + | Parth Vital | ECON | Unknown | | + + + + + Care Team Providers + +------+ + | Care Culinary Director Name | Role | Phone | + +------+ + | Star Doll MD | PCP | | + +------+ + Encounter Details +--------+ + + + + | Date | Type | Department | Care Team | Description | +--------+ + + + + | 03/13/ | Orders Only | [facility] | Caro Castillo | | | 2017 | | CONVERSION [address] | [address] | | | | | [address] | [address] | | | | | [place], [place] | [place] [address] | | | | | [address] | [phone] | | | | | [phone] | | | +--------+ + + + [...] + | ECHO INTERPRETATION | Routin | 03/13/2017 | | Results for this | | OF OUTSIDE FILMS | e | 2:13 PM | | procedure are in the | | | | PDT | | results section. | + +--------+ + + + documented in this encounter Results ECHO Interpretation of Outside Films (03/13/2017 2:13 PM PDT) + + | Specimen | + + | | + + + + + | Impressions | Performed At | + + + | 1. The left ventricle is normal in size, wall thickness and systolic | | | function EF 60-65%. 2. The diastolic filling pattern indicates | | | impaired relaxation consistent with mild dysfunction (Grade I). 3. | | | The right ventricle is normal in size and function. 4. S/P TAVR, | | | aortic valve is well seated, mild aortic regurgitation appears to be | | | perivalvular. Acceptable gradient across the arotic valve 5. There is | | | no pericardial effusion. | | + + + + + + | Narrative | Performed At | + + + | Patient Name: BRIANNA VITAL Date of : 1945 | | | Performing Physician: Chuck Ibrahim | | | | | | INDICATIONS S/P TAVR, HTN, CAD CONCLUSIONS | | | 1. The left ventricle is normal in size, wall thickness | | | and systolic function EF 60-65%. 2. The diastolic filling pattern | | | indicates impaired relaxation consistent with mild dysfunction (Grade | | | I). 3. The right ventricle is normal in size and function. 4. S/P | | | TAVR, aortic valve is well seated, mild aortic regurgitation appears | | | to be perivalvular. Acceptable gradient across the arotic valve 5. | | | There is no pericardial effusion. FINDINGS -------- ECG rhythm: | | | Sinus rhythm. Study: A 2-dimensional transthoracic echocardiogram | | | with m-mode, spectral and color flow Doppler was perfomed. Study: | | | This was a technically adequate study. Left Ventricle: Overall left | | | ventricular systolic function is normal with, an EF between 60 - 65 %. | | | Left Ventricle: The left ventricle cavity size is normal. Left | | | Ventricle: Left ventricular wall thickness is normal. Left Ventricle: | | | No regional wall motion abnormalities. Left Ventricle: The diastolic | | | filling pattern indicates impaired relaxation consistent with mild | | | dysfunction (Grade I). Right Ventricle: The right ventricle is normal | | | in size. Right Ventricle: The right ventricular systolic function is | | | normal. Left Atrium: The left atrium is mildly dilated. Right | | | Atrium: The right atrium is mildly enlarged. Aortic Valve: There is | | | mild aortic regurgitation. Aortic Valve: The aortic pressure | | | half-time by doppler is 690ms. Aortic Valve: The maximum velocity | | | across the aortic valve is 2.28m/s Aortic Valve: S/P TAVR, aortic | | | valve is well seated, mild aortic regurgitation appears to be | | | perivalvular. Acceptable gradient across the arotic valve Mitral | | | Valve: There is trace mitral regurgitation. Mitral Valve: Mild mitral | | | annular calcification present. Tricuspid Valve: The tricuspid valve | | | appears structurally normal. Tricuspid Valve: Trace tricuspid | | | regurgitation present. Tricuspid Valve: There is no evidence of | | | pulmonary hypertension. Tricuspid Valve: The right ventricular | | | systolic pressure (pulmonary artery systolic pressure), as measured by | | | Doppler, is {RVSP}. Tricuspid Valve: The poor TR signal prevents | | | accurate estimation of pulmonary pressures. Pulmonic Valve: The | | | pulmonic valve was not well visualized. Pericardium: There is no | | | pericardial effusion. Pericardium: No pleural effusion seen. | | | IVC/Hepatic Veins: The IVC is normal size (1.5-2.5cm) and collapses | | | >50% with sniff, consistent with central venous pressures of 5-10mmHg. | | | Aorta: The aortic root, ascending aorta and aortic arch are normal. | | | MEASUREMENTS Ao asc: 3.35 cm Ao Diam: 3.78 | | | cm Ao sinus: 3.[address] junct: 2.98 cm IVC: 1.73 cm LA | | | Diam: 3.54 cm LA Major: 5.75 cm EDV(Teich): 86.07 ml | | | IVSd: 1.04 cm LVIDd: 4.36 cm LVPWd: 1.00 cm LVOT Area: | | | 3.67 cm2 LVOT Diam: 2.16 cm %FS: 26.44 % EF(Teich): 52.01 | | | % ESV(Teich): 41.30 ml LVIDs: 3.21 cm SV(Teich): 44.77 ml | | | RA Major: 5.60 cm RV Major: 6.76 cm RVIDd: 3.11 cm LVEF | | | MOD A2C: 58.92 % SV MOD A2C: 79.01 ml LVEF MOD A4C: 63.55 % | | | SV MOD A4C: 105.09 ml EF Biplane: 61.35 % LVEDV MOD BP: | | | 153.30 ml LVESV MOD BP: 59.24 ml LVEDV MOD A2C: 134.07 ml | | | LVLd A2C: 9.35 cm LVEDV MOD A4C: 165.34 ml LVLd A4C: 10.01 | | | cm LVESV MOD A2C: 55.06 ml LVLs A2C: 7.56 cm LVESV MOD A4C: | | | 60.25 ml LVLs A4C: 8.16 cm LAESV(A-L): 71.07 ml LAESV | | | Index (A-L): 34.33 ml/m2 LAAs A2C: 21.22 cm2 LAESV A-L A2C: | | | 68.97 ml LALs A2C: 5.54 cm LAAs A4C: 21.87 cm2 LAESV A-L | | | A4C: 73.80 ml LALs A4C: 5.63 cm RAAs: 20.61 cm2 RAESV A-L: | | | 59.24 ml RAESV MOD: 57.99 ml RALs: 6.08 cm TAPSE: 3.00 | | | cm AR Dec [place]: 1.99 m/s2 AR Dec Time: 2380.55 ms AR maxPG: | | | 90.37 mmHg AR PHT: 690.36 ms AR Vmax: 4.75 m/s AV maxPG: | | | 20.90 mmHg AV meanP.12 mmHg AV Vmax: 2.28 m/s AV | | | Vmean: 1.55 m/s AV VTI: 44.39 cm ZEKE Vmax: 1.80 cm2 ZEKE | | | (VTI): 1.96 cm2 AVAI Vmax: 0.00 cm2/m2 AVAI (VTI): 0.00 | | | cm2/m2 LVOT maxP.02 mmHg LVOT meanP.65 mmHg LVSI | | | Dopp: 42.04 ml/m2 LVSV Dopp: 87.03 ml LVOT Vmax: 1.12 m/s | | | LVOT Vmean: 0.76 m/s LVOT VTI: 23.68 cm MV A Doe: 0.91 m/s | | | MV DecT: 194.59 ms MV E Doe: 0.69 m/s MV E/A Ratio: 0.75 | | | MV PHT: 56.43 ms MVA By PHT: 3.89 cm2 Septal e': 0.05 m/s | | | Septal E/e': 12.43 Lateral e': 0.08 m/s Lateral E/e': 8.03 | | | TR maxP.41 mmHg TR Vmax: 1.89 m/s Full Service Supervisor: LYLY | | | Authenticated by: Chuck Ibrahim Report Date/Time: 03-14-2017 6:29:2 | | | | | + + + + + | Procedure Note | + + | Elmo Rubio - 01/28/2019 6:38 PM PDT Patient Name: Neal VITAL | | of : 1945 Performing Physician: Chuck | | [place] INDICATIONS------ | | -----S/P TAVR, HTN, CAD CONCLUSIONS 1. The left ventricle is normal in size, | | wall thickness and systolic function EF 60-65%.2. The diastolic filling pattern | | indicates impaired relaxation consistent with mild dysfunction (Grade I).3. The right | | ventricle is normal in size and function.4. S/P TAVR, aortic valve is well seated, mild | | aortic regurgitation appears to be perivalvular. Acceptable gradient across the arotic | | valve5. There is no pericardial effusion. FINDINGS--------ECG rhythm: Sinus | | rhythm.Study: A 2-dimensional transthoracic echocardiogram with m-mode, spectral and | | color flow Doppler was perfomed.Study: This was a technically adequate study.Left | | Ventricle: Overall left ventricular systolic function is normal with, an EF between 60 - | | 65 %.Left Ventricle: The left ventricle cavity size is normal.Left Ventricle: Left | | ventricular wall thickness is normal.Left Ventricle: No regional wall motion | | abnormalities.Left Ventricle: The diastolic filling pattern indicates impaired | | relaxation consistent with mild dysfunction (Grade I).Right Ventricle: The right | | ventricle is normal in size.Right Ventricle: The right ventricular systolic function is | | normal.Left Atrium: The left atrium is mildly dilated.Right Atrium: The right atrium is | | mildly enlarged.Aortic Valve: There is mild aortic regurgitation.Aortic Valve: The | | aortic pressure half-time by doppler is 690ms.Aortic Valve: The maximum velocity across | | the aortic valve is 2.28m/sAortic Valve: S/P TAVR, aortic valve is well seated, mild | | aortic regurgitation appears to be perivalvular. Acceptable gradient across the arotic | | valveMitral Valve: There is trace mitral regurgitation.Mitral Valve: Mild mitral annular | | calcification present.Tricuspid Valve: The tricuspid valve appears structurally | | normal.Tricuspid Valve: Trace tricuspid regurgitation present.Tricuspid Valve: There is | | no evidence of pulmonary hypertension.Tricuspid Valve: The right ventricular systolic | | pressure (pulmonary artery systolic pressure), as measured by Doppler, is | | {RVSP}.Tricuspid Valve: The poor TR signal prevents accurate estimation of pulmonary | | pressures.Pulmonic Valve: The pulmonic valve was not well visualized.Pericardium: There | | is no pericardial effusion.Pericardium: No pleural effusion seen.IVC/Hepatic Veins: The | | IVC is normal size (1.5-2.5cm) and collapses >50% with sniff, consistent with central | | venous pressures of 5-10mmHg.Aorta: The aortic root, ascending aorta and aortic arch are | | normal. MEASUREMENTS Ao asc: 3.35 cmAo Diam: 3.78 cmAo sinus: 3.29 | | cmAo st junct: 2.98 cmIVC: 1.73 cmLA Diam: 3.54 cmLA Major: 5.75 cmEDV(Teich): | | 86.07 mlIVSd: 1.04 cmLVIDd: 4.36 cmLVPWd: 1.00 cmLVOT Area: 3.67 [id number] Diam: | | 2.16 cm%FS: 26.44 %EF(Teich): 52.01 %ESV(Teich): 41.30 mlLVIDs: 3.21 | | cmSV(Teich): 44.77 mlRA Major: 5.60 cmRV Major: 6.76 cmRVIDd: 3.11 cmLVEF MOD | | A2C: 58.92 %SV MOD A2C: 79.01 mlLVEF MOD A4C: 63.55 %SV MOD A4C: 105.09 mlEF | | Biplane: 61.35 %LVEDV MOD BP: 153.30 mlLVESV MOD BP: 59.24 mlLVEDV MOD A2C: | | 134.07 mlLVLd A2C: 9.35 cmLVEDV MOD A4C: 165.34 mlLVLd A4C: 10.01 cmLVESV MOD A2C: | | 55.06 mlLVLs A2C: 7.56 cmLVESV MOD A4C: 60.25 mlLVLs A4C: 8.16 cmLAESV(A-L): | | 71.07 mlLAESV Index (A-L): 34.33 ml/m2LAAs A2C: 21.22 [id number] A-L A2C: 68.97 | | mlLALs A2C: 5.54 cmLAAs A4C: 21.87 [id number] A-L A4C: 73.80 mlLALs A4C: 5.63 | | cmRAAs: 20.61 [id number] A-L: 59.24 mlRAESV MOD: 57.99 mlRALs: 6.08 cmTAPSE: | | 3.00 cmAR Dec [place]: 1.99 m/s2AR Dec Time: 2380.55 msAR maxP.37 mmHgAR PHT: | | 690.36 msAR Vmax: 4.75 m/Apoorva maxP.90 mmHgAV meanP.12 mmHgAV Vmax: | | 2.28 m/Apoorva Vmean: 1.55 m/Apoorva VTI: 44.39 cmAVA Vmax: 1.80 cm2AVA (VTI): 1.96 | | [id number] Vmax: 0.00 cm2/m2AVAI (VTI): 0.00 cm2/m2LVOT maxP.02 mmHgLVOT meanPG: | | 2.65 mmHgLVSI Dopp: 42.04 ml/m2LVSV Dopp: 87.03 mlLVOT Vmax: 1.12 m/sLVOT Vmean: | | 0.76 m/sLVOT VTI: 23.68 cmMV A Doe: 0.91 m/sMV DecT: 194.59 msMV E Doe: 0.69 | | m/sMV E/A Ratio: 0.75MV PHT: 56.43 msMVA By PHT: 3.89 xh2Brgnok e': 0.05 | | m/sSeptal E/e': 12.43Lateral e': 0.08 m/sLateral E/e': 8.03TR maxP.41 | | mmHgTR Vmax: 1.89 m/s Full Service Supervisor: HESHAMuthenticated by: Chuck Cervantes | | Date/Time: 03-14-2017 6:29:2 IMPRESSION: 1. The left ventricle is normal in size, wall | | thickness and systolic function EF 60-65%.2. The diastolic filling pattern indicates | | impaired relaxation consistent with mild dysfunction (Grade I).3. The right ventricle is | | normal in size and function.4. S/P TAVR, aortic valve is well seated, mild aortic | | regurgitation appears to be perivalvular. Acceptable gradient across the arotic valve5. | | There is no pericardial effusion. | |LA Major: 5.75 cm | |EDV(Teich): 86.07 ml | |IVSd: 1.04 cm | |LVIDd: 4.36 cm | |LVPWd: 1.00 cm | |LVOT Area: 3.67 cm2 | |LVOT Diam: 2.16 cm | |%FS: 26.44 % | |EF(Teich): 52.01 % | |ESV(Teich): 41.30 ml | |LVIDs: 3.21 cm | |SV(Teich): 44.77 ml | |RA Major: 5.60 cm | |RV Major: 6.76 cm | |RVIDd: 3.11 cm | |LVEF MOD A2C: 58.92 % | |SV MOD A2C: 79.01 ml | |LVEF MOD A4C: 63.55 % | |SV MOD A4C: 105.09 ml | |EF Biplane: 61.35 % | |LVEDV MOD BP: 153.30 ml | |LVESV MOD BP: 59.24 ml | |LVEDV MOD A2C: 134.07 ml | |LVLd A2C: 9.35 cm | |LVEDV MOD A4C: 165.34 ml | |LVLd A4C: 10.01 cm | |LVESV MOD A2C: 55.06 ml | |LVLs A2C: 7.56 cm | |LVESV MOD A4C: 60.25 ml | |LVLs A4C: 8.16 cm | |LAESV(A-L): 71.07 ml | |LAESV Index (A-L): 34.33 ml/m2 | |LAAs A2C: 21.22 cm2 | |LAESV A-L A2C: 68.97 ml | |LALs A2C: 5.54 cm | |LAAs A4C: 21.87 cm2 | |LAESV A-L A4C: 73.80 ml | |LALs A4C: 5.63 cm | |RAAs: 20.61 cm2 | |RAESV A-L: 59.24 ml | |RAESV MOD: 57.99 ml | |RALs: 6.08 cm | |TAPSE: 3.00 cm | |AR Dec [place]: 1.99 m/s2 | |AR Dec Time: 2380.55 ms | |AR maxP.37 mmHg | |AR PHT: 690.36 ms | |AR Vmax: 4.75 m/s | |AV maxP.90 mmHg | |AV meanP.12 mmHg | |AV Vmax: 2.28 m/s | |AV Vmean: 1.55 m/s | |AV VTI: 44.39 cm | |ZEKE Vmax: 1.80 cm2 | |ZEKE (VTI): 1.96 cm2 | |AVAI Vmax: 0.00 cm2/m2 | |AVAI (VTI): 0.00 cm2/m2 | |LVOT maxP.02 mmHg | |LVOT meanP.65 mmHg | |LVSI Dopp: 42.04 ml/m2 | |LVSV Dopp: 87.03 ml | |LVOT Vmax: 1.12 m/s | |LVOT Vmean: 0.76 m/s | |LVOT VTI: 23.68 cm | |MV A Doe: 0.91 m/s | |MV DecT: 194.59 ms | |MV E Doe: 0.69 m/s | |MV E/A Ratio: 0.75 | |MV PHT: 56.43 ms | |MVA By PHT: 3.89 cm2 | |Septal e': 0.05 m/s | |Septal E/e': 12.43 | |Lateral e': 0.08 m/s | |Lateral E/e': 8.03 | |TR maxP.41 mmHg | |TR Vmax: 1.89 m/s | | | |Full Service Supervisor: | |Authenticated by: Chuck Mcmullen | |Report Date/Time: 03-14-2017 6:29:2 | | | |IMPRESSION: | |1. The left ventricle is normal in size, wall thickness and systolic function EF 60-65%. | |2. The diastolic filling pattern indicates impaired relaxation consistent with mild dysfunc tion (Grade I). | |3. The right ventricle is normal in size and function. | |4. S/P TAVR, aortic valve is well seated, mild aortic regurgitation appears to be perivalvu lar. Acceptable gradient across the arotic valve | |5. There is no pericardial effusion. | + + documented in this encounter Visit Diagnoses Not on filedocumented in this encounter"
--- OUTSIDE RECORDS SUMMARY | ~2019-12-23 | XMS | Encounter Summary ---
Demographics + + + | Address | [address] | | | [place] [address] | + + + | Home Phone | | + + + | Preferred Language | Unknown | + + + | Marital Status | | + + + | Mandaen Affiliation | Unknown | + + + [...] [address] | | | | | [facility] [place] | | | | | [address] | | + + + + + | Parth Vital | ECON | Unknown | | + + + + + Care Team Providers + +------+ + | Care Tv Host Name | Role | Phone | + +------+ + | Star Doll MD | PCP | | + +------+ + Reason for Visit Diagnostic/Screening (Routine) +--------+--------+ + + + + | Status | Reason | Specialty | Diagnoses / | Referred By | Referred To | | | | | Procedures | Contact | Contact | +--------+--------+ + + + + | Closed | | Radiology | Diagnoses | [place], | [facility] | | | | | | [place], | Medicine | | | | | Hypertension | [place] [address] | [address] | | | | | SOB | [address] | [place] | | | | | (shortness | [address] | [address] | | | | | of breath) | [place] | Phone: | | | | | Procedures | [id number] | [phone] | | | | | [place] | Phone: | Fax: | | | | | Myocardial | [phone] | [phone] | | | | | Perfusion | Fax: | | | | | | Mult SPECT | [phone] | | +--------+--------+ + + + + Encounter Details +--------+ + + + + | Date | Type | Department | Care Team | Description | +--------+ + + + + | 03/08/ | Hospital [facility] Wendy Shelby | | | 2012 | Encounter | [facility] | [place] [address] | | | | | NUCLEAR MEDICINE | [address] | | | | | [address] | [place] [address] | | | | | [place] | [phone] | | | | | [address] | | | | | | [phone] | | | +--------+ + + + [...] + + documented as of this encounter Medications at Time of Discharge [...] + + documented as of this encounter Procedure Lisa Badillo PA - 03/08/2013 10:28 AM PDTAssociated Order(s): STRESS ECGPharmacologic S tress Test -- ECG/STRESS PORTION of EXAM Patient Name: Duane Vital Date: 03/08/2013 Time: 10:28 Indication for procedure: SOB , hypertension, aortic stenosis. Ordering Physician: Wendy Shelby MD Primary Care Provider: Star Doll MD Baseline Vital Signs: Blood pressure: 170/90 mmHg Pulse: 71 BPM Baseline ECG: Normal sinus rhythm at [address]-T changes. Procedure: The patient was administered 40 mg of IV persantine. Next, 30 mCi of IV Tc-99m Sestamibi was administered. The patient was then given 125 mg of IV aminophylline at 10 minutes. Findings: The max BP recorded was 179/67 mmHg. The max heart rate was 95 bpm. The ECG demonstrated NSR with no ST-T changes after persantine injection. At peak infusion time, the patient developed a complete AV block with ventricular pause >10 seconds 2/2 IV pe rsantine infusion. His heart rate improved spontaneously to 33 BPM with complete resolution with IV aminophylline at 10 minutes to >80 BPM. There were occasional PVC's and PAC's. Symptoms reported: Nausea, vomiting, headache, dizziness, lightheadedness. No CP. Summary: 1. ECG is negative for ischemia 2. No chest pain reported 3. No ST-T changes suggesting ischemia were observed 4. Complete AV block at peak infusion with spontaneous resolution. 5. Please see nuclear imaging portion of exam. Electronically signed by: MIKKI Purdy 03/08/2013 10:28 [facility], Cardiology documented in this en counter Plan of Treatment Not on filedocumented as of this encounter Procedures + +--------+ + + + | Procedure Name | Priori | Date/Time | Associated Diagnosis | Comments | | | ty | | | | + +--------+ + + + | STRESS ECG | Routin | 03/08/2013 | | Results for this | | | e | 12:21 PM | | procedure are in the | | | | PDT | | results section. | + +--------+ + + + documented in this encounter Results Stress ECG (03/08/2013 12:21 PM PDT) + + + | Narrative | Performed At | + + + | MIKKI Rodrigues 03/08/2013 12:21 Pharmacologic Stress Test | [facility] | | -- ECG/STRESS PORTION of EXAM Patient Name: Duane Thornton | | | Zahraa Date: 03/08/2013 | | | Time: 10:28 Indication for procedure: SOB , hypertension, | | | aortic stenosis. Ordering Physician: Wendy Shelby MD Primary | | | Care Provider: Star Doll MD Baseline Vital Signs: | | | Blood pressure: 170/90 mmHg Pulse: 71 BPM Baseline ECG: | | | Normal sinus rhythm at [address]-T changes. Procedure: | | | The patient was administered 40 mg of IV persantine. Next, 30 | | | mCi of IV Tc-99m Sestamibi was administered. The patient was then | | | given 125 mg of IV aminophylline at 10 minutes. Findings: The max | | | BP recorded was 179/67 mmHg. The max heart rate was 95 bpm. The ECG | | | demonstrated NSR with no ST-T changes after persantine injection. | | | At peak infusion time, the patient developed a complete AV block | | | with ventricular pause >10 seconds 2/2 IV persantine infusion. His | | | heart rate improved spontaneously to 33 BPM with complete resolution | | | with IV aminophylline at 10 minutes to >80 BPM. There were | | | occasional PVC's and PAC's. Symptoms reported: Nausea, vomiting, | | | headache, dizziness, lightheadedness. No CP. Summary: 1. | | | ECG is negative for ischemia 2. No chest pain reported 3. No | | | ST-T changes suggesting ischemia were observed 4. Complete AV block | | | at peak infusion with spontaneous resolution. 5. Please see | | | nuclear imaging portion of exam. Electronically signed by: | | | MIKKI Purdy 03/08/2013 10:28 [facility], | | | Cardiology | | + + + + + | Procedure Note | + + | Lisa Rasheed PA - 03/08/2013 10:28 AM PDT Pharmacologic Stress Test -- | | ECG/STRESS PORTION of EXAMPatient Name: Duane Vital Medical Record Number: | | [id number]: 03/08/2013 Time: 10:28 Indication for procedure: SOB , hypertension, | | aortic stenosis.Ordering Physician: Wendy Shelby MD Primary Care Provider: | | Star Doll MDBaseline Vital Signs: Blood pressure: 170/90 mmHgPulse: 71 BPM | | Baseline ECG: Normal sinus rhythm at [address]-T changes.Procedure:The patient | | was administered 40 mg of IV persantine. Next, 30 mCi of IV Tc-99m Sestamibi was | | administered. The patient was then given 125 mg of IV aminophylline at 10 | | minutes.Findings:The max BP recorded was 179/67 mmHg.The max heart rate was 95 bpm.The | | ECG demonstrated NSR with no ST-T changes after persantine injection. At peak infusion | | time, the patient developed a complete AV block with ventricular pause >10 seconds 2/2 | | IV persantine infusion. His heart rate improved spontaneously to 33 BPM with complete | | resolution with IV aminophylline at 10 minutes to >80 BPM. There were occasional PVC's | | and PAC's.Symptoms reported: Nausea, vomiting, headache, dizziness, lightheadedness. No | | CP. Summary: 1. ECG is negative for ischemia2. No chest pain reported3. No ST-T | | changes suggesting ischemia were observed4. Complete AV block at peak infusion with | | spontaneous resolution. 5. Please see nuclear imaging portion of exam.Electronically | | signed by: MIKKI Purdy 03/08/2013 10:28[facility], Cardiology | | | |The patient was administered 40 mg of IV persantine. Next, 30 mCi of IV Tc-99m Sestamibi was administered. The patient was then given 125 mg of IV aminophylline at 10 minutes. | | | |Findings: | |The max BP recorded was 179/67 mmHg. | |The max heart rate was 95 bpm. | |The ECG demonstrated NSR with no ST-T changes after persantine injection. At peak infusion time, the patient developed a complete AV block with ventricular pause >10 seconds 2/2 IV pe rsantine infusion. His heart rate | |improved spontaneously to 33 BPM with complete resolution with IV aminophylline at 10 minut es to >80 BPM. | |There were occasional PVC's and PAC's. | |Symptoms reported: Nausea, vomiting, headache, dizziness, lightheadedness. No CP. | | | |Summary: | | | |1. ECG is negative for ischemia | |2. No chest pain reported | |3. No ST-T changes suggesting ischemia were observed | |4. Complete AV block at peak infusion with spontaneous resolution. | |5. Please see nuclear imaging portion of exam. | | | |Electronically signed by: | |MIKKI Purdy 03/08/2013 10:28 | |[facility], Cardiology | + + + +---------+ + + | Performing | Address | City/State/Zipcode | Phone Number | | Organization | | | | + +---------+ + + | [facility] | | | | + +---------+ + + documented in this encounter Visit Diagnoses Not on filedocumented in this encounter Administered Medications + +--------+ + +------+------+ | Medication Order | MAR | Action | Dose | Rate | Site | | | Action | Date | | | | + +--------+ + +------+------+ | technetium TC-99M sestamibi | Given | 03/08/20 | 28.8 | | | | (CARDIOLITE) injection 28.8 | | 13 9:37 | -millicu | | | | millicurie 28.8 -millicurie, | | AM PDT | kristen | | | | Intravenous, ONCE PRN, Other, | | | | | | | Starting 03/08/13 at 0937, For | | | | | | | 1 dose, Nuclear Medicine | | | | | | + +--------+ + +------+------+ +---+---+ | | | +---+---+ + +-------+ + +---+---+ | technetium TC-99M sestamibi | Given | 03/08/20 | 8.4 | | | | (CARDIOLITE) injection 8.4 | | 13 8:23 | -millicu | | | | millicurie 8.4 -millicurie, | | AM PDT | kristen | | | | Intravenous, ONCE PRN, Other, | | | | | | | Starting 03/08/13 at 0822, For | | | | | | | 1 dose, Nuclear Medicine | | | | | | + +-------+ + +---+---+ +---+---+ | | | +---+---+ documented in this encounter"
--- OUTSIDE RECORDS SUMMARY | ~2019-12-23 | XMS | Encounter Summary ---
Demographics + + + | Address | [address] | | | [place] [address] | + + + | Home Phone | | + + + | Preferred Language | Unknown | + + + | Marital Status | | + + + | Tenriism Affiliation | Unknown | + + + [...] [address] | | | | | [address] | | + + + + + | Parth Vital | ECON | Unknown | | + + + + + Care Team Providers + +------+ + | Care [place] Maori Name | Role | Phone | + +------+ + | Star Doll MD | PCP | | + +------+ + Encounter Details +--------+ + + + + | Date | Type | Department | Care Team | Description | +--------+ + + + + | 03/14/ | Orders Only | [facility] | Jeanmarie Ly MD | | | 2013 | | NEPHROLOGY [place] | [address] [place] | | | | | [address] [place] | [address] [place], [place] | | | | | [address] [facility] [place] | [address] | | | | | [address] | | | | | | [phone] | | | +--------+ + + + [...] | RENAL FUNCTION PANEL | Routin | 03/14/2014 | | Results for this | | | e | 12:00 AM | | procedure are in the | | | | PDT | | results section. | + +--------+ + + + documented in this encounter Results Renal Function Panel (03/14/2014 12:00 AM PDT) + + + + + + | Component | Value | Ref Range | Performed | Pathologist | | | | | At | Signature | + + + + + + | Glucose, | 171 (A) | 70 - 100 mg/dL | EXTERNAL | | | Fasting | | | LAB | | + + + + + + | BUN | 41 (A) | 6 - 23 mg/dL | EXTERNAL | | | | | | LAB | | + + + + + + | Creatinine | 4.69 (A) | 0.70 - 1.25 | EXTERNAL [...] + + + + | K | 4.7 | 3.6 - 5.1 | EXTERNAL | [...] + + + | Anion Gap | 13.7 | 7 - 21 mmol/L | EXTERNAL [...] + + + + | BUN/Creatin | 8.7 | 6.0 - 28.6 | EXTERNAL | [...]
--- OUTSIDE RECORDS SUMMARY | ~2019-12-23 | XMS | Encounter Summary ---
Demographics + + + | Address | [address] | | | [place] [address] | + + + | Home Phone | | + + + | Preferred Language | Unknown | + + + | Marital Status | | + + + | Baptism Affiliation | Unknown | + + + | Race | Unknown | + + + | Ethnic Group | Unknown | + + + Author + + + | Author | [facility] | | | and [place] | + + + | Organization | [facility] | | | and [...] [address] | | | | | [address] | | + + + + + | Parth Vital | ECON | Unknown | | + + + + + Care Team Providers + +------+ + | Care Pattern Chart Writer Name | Role | Phone | + +------+ + | Star Doll MD | PCP | | + +------+ + Encounter Details +--------+ + + + + | Date | Type | Department | Care Team | Description | +--------+ + + + + | 06/27/ | Orders Only | [facility] | Jeanmarie Ly MD | | | 2014 | | NEPHROLOGY [place] | [address] [place] | | | | | [address] [place] | [address] [place], [place] | | | | | [address] [place], [place] | [address] | | | | | [address] | | | | | | [phone] | | | +--------+ + + + [...] + | HEMOGLOBIN AND | Routin | 06/27/2014 | | Results for this | | HEMATOCRIT | e | 12:00 AM | | procedure are in the | | | | PST | | results section. | + +--------+ + + + | RENAL FUNCTION PANEL | Routin | 06/27/2014 | | Results for this | | | e | 12:00 AM | | procedure are in the | | | | PST | | results section. | + +--------+ + + + documented in this encounter Results Hemoglobin and Hematocrit (06/27/2014 12:00 AM PST) + + + + + + | Component | Value | Ref Range | Performed | Pathologist | | | | | At | Signature | + + + + + + | Hemoglobin | 8.9 (A) | 13.5 - 18.0 | EXTERNAL | | | | | | LAB | | + + + + + + | Hematocrit, | 27.0 (A) | 41 - 50 % | [...] + +---------+ + + Renal Function Panel (06/27/2014 12:00 AM PST) + + + + + + | Component | Value | Ref Range | Performed | Pathologist | | | | | At | Signature | + + + + + + | Glucose, | 76 | 70 - 100 mg/dL | EXTERNAL | | | Fasting | | | LAB | | + + + + + + | BUN | 59 (A) | 6 - 23 mg/dL | EXTERNAL | | | | | | LAB | | + + + + + + | Creatinine | 4.60 (A) | 0.70 - 1.18 | EXTERNAL [...] + + + | Anion Gap | 15.7 | 7 - 21 mmol/L | EXTERNAL | | | | | | LAB | | + + + + + + | eGFR if not | | | EXTERNAL | | | | | | LAB | | | [place] | | | | | + + + + + + | Phosphorus, | 5.3 (A) | 2.5 - 5.0 | EXTERNAL | | | Inorganic | | | LAB | | + + + + + + | BUN/Creatin | 12.8 | 6.0 - 28.6 | EXTERNAL | | | ine Ratio | | | LAB | | + + + + + + | Calcium | 8.8 | 8.4 - 10.2 | EXTERNAL | [...]
--- OUTSIDE RECORDS SUMMARY | ~2019-12-23 | XMS | Encounter Summary ---
Demographics + + + | Address | [address] | | | [place] [address] | + + + | Home Phone | | + + + | Preferred Language | Unknown | + + + | Marital Status | | + + + | Adventist Affiliation | Unknown | + + + | Race | Unknown | + + + | Ethnic Group | Unknown | + + + Author + + + | Author | [facility] | | | and [place] | + + + | Organization | [facility] | | [...] [address] | | | | | [address] | | + + + + + | Parth Vital | ECON | Unknown | | + + + + + Care Team Providers + +------+ + | Care Chief Petroleum Engineer Name | Role | Phone | + +------+ + | Star Doll MD | PCP | | + +------+ + Encounter Details +--------+ + + + + | Date | Type | Department | Care Team | Description | +--------+ + + + + | 01/25/ | Orders Only | [facility] | Conversion | | | 2013 | | NEPHROLOGY [place] | Transaction, | | | | | [address] | Provider Unknown | | | | | [address] [place] | | | | | | [address] | (Fax) | | | | | [phone] | | | +--------+ + + + [...] | EXTERNAL LAB: CBC | Routin | 01/25/2014 | | Results for this | | | e | 12:00 AM | | procedure are in the | | | | PDT | | results section. | + +--------+ + + + | URINALYSIS WITH | Routin | 01/25/2014 | | Results for this | | MICROSCOPIC WITH | e | 12:00 AM | | procedure are in the | | CULTURE IF INDICATED | | PDT | | results section. | + +--------+ + + + | MAGNESIUM | Routin | 01/25/2014 | | Results for this | | | e | 12:00 AM | | procedure are in the | | | | PDT | | results section. | + +--------+ + + + | IRON, TOTAL | Routin | 01/25/2014 | | Results for this | | | e | 12:00 AM | | procedure are in the | | | | PDT | | results section. | + +--------+ + + + | RENAL FUNCTION PANEL | Routin | 01/25/2014 | | Results for this | | | e | 12:00 AM | | procedure are in the | | | | PDT | | results section. | + +--------+ + + + documented in this encounter Results Urinalysis with Microscopic with Culture if Indicated (01/25/2014 12:00 AM PDT) + + + + [...] + | Spec Grav, | 1.014 | | EXTERNAL | | | Fluid [...] + + + | pH, Urine | 7 | | EXTERNAL | | | | | | LAB | | + + + + + + | Blood, | PositiveComment: 250 | | EXTERNAL | | | Urine [...] + + + | WBC, UA | 0 | | EXTERNAL | | | | | | LAB | | + + + + + + | RBC, UA | 0 | | EXTERNAL | | | | | | LAB | | + + + + + + | Epithelial | Negative | | EXTERNAL | | | Cells | | | LAB | | + + + + + + | Bacteria, | None Seen | | EXTERNAL | | | UA | | | LAB | | + + + + + + | HYALINE | None Seen | | EXTERNAL | | | CASTS [...] + +---------+ + + External Lab: CBC (01/25/2014 12:00 AM PDT) + +-------+ + + + | Component | Value | Ref Range | Performed | Pathologist | | | | | At | Signature | + +-------+ + + + | WBC | 6.9 | 10 | EXTERNAL | | | | | | LAB | | + +-------+ + + + | Non- | 3.39 | 10 | EXTERNAL | | | Red Blood | | | LAB | | | Cells | | | | | | Counted | | | | | + +-------+ + + + | Hemoglobin | 10.2 | g/dL | EXTERNAL | | | | | | LAB | | + +-------+ + + + | Hematocrit, | 31.2 | % | EXTERNAL | | | POC | | | LAB | | + +-------+ + + + | MCV | 91.9 | fL | EXTERNAL | | | | | | LAB | | + +-------+ + + + | MCH | 30 | pg | EXTERNAL | | | | | | LAB | | + +-------+ + + + | MCHC | 33 | g/dL | EXTERNAL | | | | | | LAB | | + +-------+ + + + | Platelet | 212 | K/ L | EXTERNAL | | | Count | | | LAB | | | Plasma | | | | | + +-------+ + + + | RDW-CV | | % | EXTERNAL | | | | | | LAB | | + +-------+ + + + | MPV | | fL | EXTERNAL | | | | | | LAB | | + +-------+ + + + | Differentia | | | EXTERNAL | | | l Type | | | LAB | | + +-------+ + + + | % Segmented | | % | EXTERNAL | | | | | | LAB | | | Neutrophils | | | | | + +-------+ + + + | % | | % | EXTERNAL | | | Lymphocytes | | | LAB | | + +-------+ + + + | % Monocytes | | % | EXTERNAL | | | | | | LAB | | + +-------+ + + + | % | | % | EXTERNAL | | | Eosinophils | | | LAB | | + +-------+ + + + | % Basophils | | % | EXTERNAL | | [...] | | + +---------+ + + Magnesium (01/25/2014 12:00 AM PDT) + +-------+ + + + | Component | Value | Ref Range | Performed | Pathologist | | | | | At | Signature | + +-------+ + + + | Magnesium | 1.8 | mg/dL | EXTERNAL | | | [...] | | | + +---------+ + + Iron, Total (01/25/2014 12:00 AM PDT) + +-------+ + + + | Component | Value | Ref Range | Performed | Pathologist | | | | | At | Signature | + +-------+ + + + | Iron | 59 | | EXTERNAL | | | | [...] + +---------+ + + Renal Function Panel (01/25/2014 12:00 AM PDT) + +-------+ + + + | Component | Value | Ref Range | Performed | Pathologist | | | | | At | Signature | + +-------+ + + + | Glucose, | 192 | mg/dL | EXTERNAL | | | Fasting | | | LAB | | + +-------+ + + + | BUN | 39 | mg/dL | EXTERNAL | | | | | | LAB | | + +-------+ + + + | Creatinine | 3.76 | mg/dL | EXTERNAL | | | | | | LAB | | + +-------+ + + + | PHOSPHORUS | 3.1 | mg/dL | EXTERNAL | | | | | | LAB | | + +-------+ + + + | Albumin | 3.5 | | EXTERNAL | | | | | | LAB | | + +-------+ + + + | Na | 138 | mmol/L | EXTERNAL | | | | | | LAB | | + +-------+ + + + | K | 4.4 | mmol/L | EXTERNAL | | | | | | LAB | | + +-------+ + + + | Cl | 107 | mmol/L | EXTERNAL | | | | | | LAB | | + +-------+ + + + | CO2 | 26 | mmol/L | EXTERNAL | | | | | | LAB | | + +-------+ + + + | Anion Gap | 9.4 | mmol/L | EXTERNAL | | | | | | LAB | | + +-------+ + + + | eGFR if not | 16 | | EXTERNAL | | | | | | LAB | | | [place] | | | | | + +-------+ + + + | Phosphorus, | 3.1 | | EXTERNAL | | | Inorganic | | | LAB | | + +-------+ + + + | BUN/Creatin | 10.4 | | EXTERNAL | | | ine Ratio | | | LAB | | + +-------+ + + + | Calcium | 9.0 | mg/dL | EXTERNAL | | | | | | LAB | | + +-------+ + + + | Estimated | 16 | mg/dL | EXTERNAL | | | [...]
--- OUTSIDE RECORDS SUMMARY | ~2019-12-23 | XMS | Encounter Summary ---
Demographics + + + | Address | [address] | | | [place] [address] | + + + | Home Phone | | + + + | Preferred Language | Unknown | + + + | Marital Status | | + + + | Yazdanism Affiliation | Unknown | + + + | Race | Unknown | + + + | Ethnic Group | Unknown | + + + Author + + + | Author | [facility] | | | and [place] | + + + | Organization | [facility] | | | [...] [address] | | | | | [address] | | + + + + + | Parth Vital | ECON | Unknown | | + + + + + Care Team Providers + +------+ + | Care Infant Childcare Provider Name | Role | Phone | + +------+ + | Star Doll MD | PCP | | + +------+ + Encounter Details +--------+ + + + + | Date | Type | Department | Care Team | Description | +--------+ + + + + | 05/17/ | Orders Only | [facility] | Jeanmarie Ly MD | | | 2013 | | NEPHROLOGY [place] | [address] [place] | | | | | [address] [place] | [address] [place], [place] | | | | | [address] [facility] [place] | [address] | | | | | [address] | | | | | | [phone] | | | +--------+ + + + [...] | IRON AND IRON | Routin | 05/17/2014 | | Results for this | | BINDING CAPACITY | e | 12:00 AM | | procedure are in the | | | | PST | | results section. | + +--------+ + + + | URINALYSIS WITH | Routin | 05/17/2014 | | Results for this | | MICROSCOPIC WITH | e | 12:00 AM | | procedure are in the | | CULTURE IF INDICATED | | PST | | results section. | + +--------+ + + + | HEMOGLOBIN AND | Routin | 05/17/2014 | | Results for this | | HEMATOCRIT | e | 12:00 AM | | procedure are in the | | | | PST | | results section. | + +--------+ + + + | TRANSFERRIN | Routin | 05/17/2014 | | Results for this | | | e | 12:00 AM | | procedure are in the | | | | PST | | results section. | + +--------+ + + + | MAGNESIUM | Routin | 05/17/2014 | | Results for this | | | e | 12:00 AM | | procedure are in the | | | | PST | | results section. | + +--------+ + + + | FERRITIN | Routin | 05/17/2014 | | Results for this | | | e | 12:00 AM | | procedure are in the | | | | PST | | results section. | + +--------+ + + + | RENAL FUNCTION PANEL | Routin | 05/17/2014 | | Results for this | | | e | 12:00 AM | | procedure are in the | | | | PST | | results section. | + +--------+ + + + documented in this encounter Results Urinalysis with Microscopic with Culture if Indicated (05/17/2014 12:00 AM PST) + + + + [...] + + + | Spec Grav, | 1.020 | 1.005 - 1.030 | EXTERNAL | [...] + + + + | Glucose, | 3+Comment: 300 | | EXTERNAL | | | [...] + + Iron and Iron Binding Capacity (05/17/2014 12:00 AM PST) + +-------+ + + + | Component | Value | Ref Range | Performed | Pathologist | | | | | At | Signature | + +-------+ + + + | Iron | 82 | 37 - 160 | EXTERNAL | | | | | | LAB | | + +-------+ + + + | Iron | 29.9 | 20 - 55 | EXTERNAL | | | Saturation | | | LAB | | + +-------+ + + + | TIBC | 274 | 245 - 400 | EXTERNAL | [...] + +---------+ + + Hemoglobin and Hematocrit (05/17/2014 12:00 AM PST) + + + + + + | Component | Value | Ref Range | Performed | Pathologist | | | | | At | Signature | + + + + + + | Hemoglobin | 12.4 (A) | 13.5 - 18 | EXTERNAL | | | | | | LAB | | + + + + + + | Hematocrit, | 37.2 (A) | 41 - 50 % | [...] | | + +---------+ + + Transferrin (05/17/2014 12:00 AM PST) + +-------+ + + + | Component | Value | Ref Range | Performed | Pathologist | | | | | At | Signature | + +-------+ + + + | TRANSFERRIN | 196 | 180 - 329 | EXTERNAL | [...] | | + +---------+ + + Magnesium (05/17/2014 12:00 AM PST) + +-------+ + + [...] | | + +---------+ + + Ferritin (05/17/2014 12:00 AM PST) + + + + + + | Component | Value | Ref Range | Performed | Pathologist | | | | | At | Signature | + + + + + + | Ferritin, | 849.1 (A) | 30 - 400 ng/mL | [...] + +---------+ + + Renal Function Panel (05/17/2014 12:00 AM PST) + + + + + + | Component | Value | Ref Range | Performed | Pathologist | | | | | At | Signature | + + + + + + | Glucose, | 120 (A) | 70 - 100 mg/dL | EXTERNAL | | | Fasting | | | LAB | | + + + + + + | BUN | 51 (A) | 6 - 23 mg/dL | [...] + + + + | CO2 | 26 | 19 - 31 mmol/L | EXTERNAL | | | | | | LAB | | + + + + + + | Anion Gap | 15.3 | 7 - 21 mmol/L | EXTERNAL | | | | | | LAB | | + + + + + + | eGFR if not | | | EXTERNAL | | | | | | LAB | | | [place] | | | | | + + + + + + | Phosphorus, | 3.7 | 2.5 - 5.0 | EXTERNAL | | | Inorganic | | | LAB | | + + + + + + | BUN/Creatin | 12.6 | 6.0 - 28.6 | EXTERNAL | [...]
--- OUTSIDE RECORDS SUMMARY | ~2019-12-23 | XMS | Encounter Summary ---
Demographics + + + | Address | [address] | | | [place] [address] | + + + | Home Phone | | + + + | Preferred Language | Unknown | + + + | Marital Status | | + + + | Catholic Affiliation | Unknown | + + + | Race | Unknown | + + + | Ethnic Group | Unknown | + + + Author + + + | Author | [facility] | | | and [place] | + + + | Organization | [facility] | | | and [place] | + + + | Address | Unknown | + + + | Phone | Unavailable | + + + Support + + + + + | Name | Relationship | Address | Phone | + + + + + | Marclea Jamesgan | ECON | [address] | | | | | [address] | | | | | [phone] | | + + + + + | Parth Vital | ECON | Unknown | | + + + + + Care Team Providers + +------+ + | Care Media Consultant Outside Sales Name | Role | Phone | + +------+ + | Star Harris MD | PCP | | + +------+ + Encounter Details +--------+ + + + + | Date | Type | Department | Care Team | Description | +--------+ + + + + | 12/27/ | Hospital | [facility] | Thomas Montiel MD | Acute renal failure | | 2014 - | Encounter | [facility] | [address] | ([facility]); Nausea; | | | | CARE [address]LO[phone] | [place] [address] | Anemia of chronic | | 01/01/ | | [address] | [phone] | renal failure; ARF | | 2013 | | [place], [place] | | (acute renal | | | | [address] | | failure) ([facility]); CKD | | | | [phone] | | (chronic kidney | | | | | | disease), stage V | | | | | | ([facility]); Diabetic | | | | | | nephropathy ([facility]); | | | | | | Diarrhea; Metabolic | | | | | | acidosis, normal | | | | | | anion gap (NAG); | | | | | | Diabetes mellitus | | | | | | ([facility]) | +--------+ + + + + Social [...] + + documented as of this encounter Discharge Summaries Thomas Montiel MD - 01/02/2014 7:45 PM PDTFormatting of this note might be different from th e original. Discharge Summaries by Thomas Montiel MD at 01/02/141944 Author: Thomas Montiel MD Service: Hospitalist Author Type: Physician Filed: 01/02/14 1950 Date of Service: 01/02/141944 Status: Signed Car Pick Up Driver: Thomas Montiel MD (Physician) [facility] Service: Hospitalist Discharge Summary Date of Admission: 12/27/2013 Date of Discharge: 01/01/2014 Discharge Physician: Thomas Montiel MD Treatment Team: Consulting Physician: James Verduzco MD Consulting Physician: Asa Christianson MD Admitting Provider: Thomas Montiel MD Discharge Diagnoses: Principal Problem: *ARF (acute renal failure) Active Problems: CKD (chronic kidney disease), stage V Diabetes mellitus HTN (hypertension) Diabetic nephropathy Stroke Dyslipidemia Iron deficiency Anemia of chronic renal failure Diarrhea Loss of appetite Loss of weight Metabolic acidosis, normal anion gap (NAG) Resolved Problems: * No resolved hospital problems. * Procedures: * No surgery found * Significant Diagnostic Studies: CT abdomen pelvis without contrast [[id number]] Resulted:12/29/13 1541 Order Status:Completed Updated:12/29/13 1546 Narrative: HISTORY: 68 year-old male with nausea, renal failure. Pain TECHNIQUE: CT through the abdomen and pelvis. Performed without the administration of IV co ntrast. Examination performed with enteric contrast. Prior study for comparison: No similar study available FINDINGS: Insurance Associate is notable for degenerative change the spinal column, hyperinflation the lungs. Lung bases demonstrate no infiltrate, discrete lesion or effusion, some COPD change is sugg ested, but no severe cystic parenchymal destruction. Bones are without aggressive lesion or fracture. Fairly severe degenerative changes particu larly of the lower lumbar spine, there is bridging osteophytosis and sclerosis of the SI nyasia nts. Arthropathy of both hips. Soft tissue windows of the abdomen reveal a small pericardial effusion. A few punctate calc ified gallstones without distention of the gallbladder or ductal system. The liver is normal to noncontrast technique as is the spleen, the adrenal glands and pancreas are unremarkable , mild atrophy of the pancreas. Vasculopathy the aorta, branch vessels to include the renal arteries. A cyst arises from th e posterior cortex of the right kidney on image 31, about 1.5 cm, homogeneous and low densit y. The bowel is unobstructed but there is extensive diverticulosis, points of wall thickening, particularly there is broad wall thickening about the sigmoid colon to the rectosigmoid yang ction. No focal high-grade inflammatory change, no abscess, free air or adenopathy. Pelvic structures are otherwise unremarkable, no adenopathy or hernia.. Impression: 1. Extensive colonic diverticulosis and diffuse distal wall thickening, but no high-grade a ctive inflammatory point, fluid collection, adenopathy or abscess. 2. Stomach is filled with ingested contents, an element of thickening can't be excluded but there is no obstruction or extraluminal lesion. 3. Small gallstones, without ductal dilatation or inflammatory change Other findings above are likely chronic and senescent, likely incidental to acute symptoms. Ultrasound renal [[id number]] Resulted:12/27/131912 Order Status:Completed Updated:12/27/131918 Narrative: BRIANNA VITAL 1945 US KIDNEYS AND BLADDER 12/27/2013 7:02 PM HISTORY: Acute renal failure COMPARISON: None. TECHNIQUE: Transabdominal ultrasound of the kidneys and bladder, grayscale and color flow e valuation. FINDINGS: The bladder measures 5.3 x 7.6 x 9.6 cm with a prevoid volume of 204 mL. There is a residual post void residual of 39 mL. The right kidney demonstrates mild cortical thinning and slight increased echogenicity. The right kidney measures 10.7 x 6.1 x 4.6 cm. There appears to be a small anechoic structure a long the midpole of the right kidney with posterior acoustic enhancement measuring 1.2 cm in diameter with no internal vascularity. No hydronephrosis is present. The left kidney also demonstrates mild cortical thinning and measures 10.9 x 6.9 x 5.3 cm. No hydronephrosis or perinephric fluid collection is demonstrated. Impression: 1. There is no evidence of hydronephrosis. 2. Mild increased echogenicity and cortical thinning of the kidneys is nonspecific and may reflect mild medical renal disease. 3. Incidental right renal cyst. Chest PA and Lateral [[id number]] Resulted:12/27/13 171 Order Status:Completed Updated:12/27/13 1723 Narrative: History: 68 year-old male with unexplained nausea. Technique: Frontal and lateral radiographic examination of the chest. No prior study for co mparison. Findings: Cardiomediastinum is normal. Lungs are symmetrically inflated without pneumothorax, infiltrate, or effusion. Bones reveal midthoracic compression, unknown chronicity. No baseline study for comparison. There is also multilevel disc endplate disease and some calcification of the intra-longitud inal ligament Impression: 1. No evident acute infiltrate, failure or active cardiopulmonary disease to explain sympto ms 2. Degenerative changes and midthoracic compression fracture, without retropulsion. Unknown chronicity. F HISTORY OF PRESENTATION: Brianna Vital is a 68 y.o. male who presented with ARF and diarrhea please refer to H&P and consult notes for details. HOSPITAL COURSE: 1.ARF on CKD5 /metabolic acidosis could be due to GI losses/dehydration vs nephrotoxic meds he is on lasix/lisinopril Dr.svetlana recc bicab tablets and also to follow up with . 2.HTN continue current BP meds and follow up with PCP 3.DM2 i have adjusted his insulin dose follow up with PCP 4.Iron def anemia and anemia of CKD no s/s of bleeding recc per nephrology received procrit injection 5.Diarrhea and loss of appetite has seen him and recc mesalamine and oral vancomyci n also imodium as needed, he will need to follow up with GI. 6.hx of CVA in 2010 he is on ASA/plavix and Lipitor. All his questions were addressed and he was discharged in a stable condition and covered wi th side effects of newly added medications. Past Medical History Diagnosis Date Hypertension Hyperlipidemia Diabetes mellitus, type 2 TIA (transient ischemic attack) 2010 Heart murmur Stroke surface stroke Sleep apnea dx light apnea Chronic kidney disease Anemia of chronic renal failure 01/24/2012 Past Surgical History Procedure Date Colonoscopy Cataract extraction 2004? Allergies Allergen Reactions Penicillins Other (See Comments) No prescriptions prior to admission DISCHARGE EXAM Vital Signs: BP 157/72 | Pulse 62 | Temp 98.2 F (36.8 C) (Oral) | Resp 16 | Ht 1.778 m (5' 10") | Wt 84 kg (185 lb 3 oz) | BMI 26.57 kg/m2 | SpO2 98% General appearance: alert, appears stated age and cooperative Head: Normocephalic, without obvious abnormality, atraumatic Neck: no adenopathy, no carotid bruit, no JVD, supple, symmetrical, trachea midline and thy roid not enlarged, symmetric, no tenderness/mass/nodules Lungs: clear to auscultation bilaterally Heart: regular rate and rhythm, S1, S2 normal, no murmur, click, rub or gallop Abdomen: soft, non-tender; bowel sounds normal; no masses, no organomegaly Extremities: extremities normal, atraumatic, no cyanosis or edema Pulses: 2+ and symmetric Neurologic: Grossly normal DATA CBC: Lab Results Component Value Date WBC 9.2 12/31/2013 RBC 2.67* 12/31/2013 HGB 8.3* 12/31/2013 HCT 24.9* 12/31/2013 MCV 93.4 12/31/2013 MCH 31.2 12/31/2013 MCHC 33.3 12/31/2013 RDW 52.5 12/31/2013 PLT 186 12/31/2013 MPV 8.0 12/31/2013 DIFFTYPE AUTOMATED 12/31/2013 CMP: Lab Results Component Value Date NA 138 01/01/2014 K 3.8 01/01/2014 CL 114* 01/01/2014 CO2 17* 01/01/2014 ANIONGAP 11 01/01/2014 GLUF 134* 01/01/2014 BUN 36* 01/01/2014 CREATININE 3.63* 01/01/2014 BCR 14 12/28/2013 CA 8.6 01/01/2014 CA 9.4 11/15/2013 PROT 7.3 12/27/2013 ALB 3.1* 01/01/2014 GLOB 3.8 12/27/2013 BILITOT 0.3 12/27/2013 ALP 17* 12/27/2013 AST 18 12/27/2013 ALT 14 12/27/2013 EGFR 18* 01/01/2014 Disposition: Home Condition: Stable Code Status: Prior Discharge Instructions Renal function panel Standing Status: Future Standing Exp. Date: 01/01/15 Diet cardiac Diet diabetic Activity as advised by physical therapy Call MD for: temperature >100.4 Call MD for: severe uncontrolled pain Call MD for: redness, tenderness, or signs of infection (pain, swelling, redness, odor or green/yellow discharge around incision site) Call MD for: persistant nausea and vomiting Call MD for: persistant dizziness or light-headedness Call MD for: hives Call MD for: difficulty breathing, headache or visual disturbances Call MD for: extreme fatigue Follow up: Star Harris MD Schedule an appointment as soon as possible for a visit in 1 week James Verduzco MD [address] [place] [id number] Schedule an appointment as soon as possible for a visit in 2 weeks Sweta Hughes MD [address] [place] [id number] Schedule an appointment as soon as possible for a visit in 2 weeks Medication List As of 01/02/2014 7:45 PM START taking these medications loperamide 2 MG capsule QTY: 30 capsule Refills: 0 Commonly known as: IMODIUM Take 1 capsule by mouth 4 (four) times daily as needed for Diarrhea. mesalamine [address] QTY: 120 capsule Refills: 0 Commonly known as: DELZICOL Take 1 capsule by mouth 4 (four) times daily before meals and nightly. Administer 1 hour b efore or 2 hours after a meal. The capsule should be swallowed whole; do not break, chew, or crush potassium chloride SA 20 MEQ tablet QTY: 60 tablet Refills: 0 Commonly known as: K-DUR,KLOR-CON Take 2 tablets by mouth daily with breakfast. sodium bicarbonate 650 MG tablet QTY: 180 tablet Refills: 0 Take 2 tablets by mouth 3 (three) times daily. vancomycin 25 mg/mL Soln QTY: 280 mL Refills: 0 Commonly known as: VANCOCIN Take 5 mLs by mouth every 6 (six) hours. CHANGE how you take these medications insulin lispro protamine-insulin lispro (75-25) 100 UNIT/ML injection QTY: 15 mL Refills: 0 Commonly known as: HUMALOG 75/25 Inject 10 Units into the skin 2 (two) times daily before meals. What changed: - dose - doctor's instructions CONTINUE taking these medications amLODIPine 10 MG tablet Refills: 0 Commonly known as: NORVASC aspirin 81 MG tablet Refills: 0 atorvastatin 40 MG tablet Refills: 0 Commonly known as: LIPITOR carvedilol 25 MG tablet Refills: 0 Commonly known as: COREG clopidogrel 75 MG tablet Refills: 0 Commonly known as: PLAVIX epoetin lakeisha [id number] UNIT/ML injection QTY: 6 mL Refills: 4 Commonly known as: PROCRIT Inject 1 mL into the skin every 14 (fourteen) days. fenofibrate 160 MG tablet Refills: 0 Commonly known as: TRICOR ferrous gluconate 325 MG tablet Refills: 0 Commonly known as: FERGON glucose blood test strip Refills: 0 niacin 500 MG tablet Refills: 0 sitagliptan 100 MG tablet Refills: 0 Commonly known as: JANUVIA terazosin 5 MG capsule Refills: 0 Commonly known as: HYTRIN vitamin C 500 MG tablet Refills: 0 VITAMIN D PO Refills: 0 STOP taking these medications furosemide 20 MG tablet Commonly known as: LASIX lisinopril 40 MG tablet Commonly known as: ZESTRIL Where to get your medications These are the prescriptions that you need to tack picker. You may get these medications from any pharmacy. insulin lispro protamine-insulin lispro (75-25) 100 UNIT/ML injection loperamide 2 MG capsule mesalamine [address] potassium chloride SA 20 MEQ tablet sodium bicarbonate 650 MG tablet vancomycin 25 mg/mL Soln Discharge took over 30 minutes, to include final examination, discussion of admission, and preparation of prescriptions, instructions for on-going care, follow-up and documentation o f discharge summary. Thomas Montiel MD @td documented in this encou nter Medications at Time of Discharge + + [...] Progress Notes Conversion Transaction, Provider Unknown - 01/01/2014 3:47 PM PDTFormatting of this note m ight be different from the original. Nurse Progress Note by Victoria Denson RN at 01/01/14 1547 Author: Victoria Denson RN Service: (none) Author Type: Registered Nurse Filed: 01/01/14 1547 Date of Service: 01/01/141546 Status: Signed Car Pick Up Driver: Victoria Denson RN (Registered Nurse) Pt and family provided with discharge instructions, refer to discharge instructions for fol low up appointments, recommendations and care instructions. VICTORIA DENSON RN 3:47 PM 12/08 James Wilkerson - 01/01/2014 2:16 PM PDT . Progress Notes by James Verduzco MD at 01/01/14 1416 Author: James Verduczo MD Service: Gastroenterology Author Type: Physician Filed: 01/01/14 1419 Date of Service: 01/01/141415 Status: Signed Car Pick Up Driver: James Verduzco MD (Physician) Patient has no more diarrhea. Currently he is on vancomycin and mesalamine. He will take va ncomycin for 2 weeks and mesalamine to be continued for now. I will see him as an outpatient in 3-4 weeks. Use Imodium only as needed. Anny Bahena MD - 12/31 9:08 PM PDT Progress Notes by Anny Garland MD at 12/31/132107 Author: Anny Garland MD Service: Nephrology Author Type: Physician Filed: 12/31/132114 Date of Service: 12/31/132107 Status: Signed Car Pick Up Driver: Anny Garland MD (Physician) [facility] Service: NEPHROLOGY Progress Note Brianna Vital 68 y.o. [phone] [id number] male STAR [facility] Day: LOS: 4 days SUBJECTIVE Patient seen and examined. ADMITTED WITH ARF (acute renal failure) Brianna Vital is a 68 y.o. male followed for acute on chronic kidney injury in the [facility] of chronic diarrhea with volume depletion. Covering for Dr. Hughes 12/30/13 Interval history: Brianna Vital feels 'little bit better' today. Overnight events: No fever, chills sweats. NO Diarrhea TODAY Patient denies any nausea or vomiting No shortness or breath, chest pain, cough. No dysuria, urgency, frequency, gross hematuria, urinary hesitancy. ROS: As in History of Present Illness. 7 area ROS was done and was otherwise negative. Past Medical History Diagnosis Date Hypertension Hyperlipidemia Diabetes mellitus, type 2 TIA (transient ischemic attack) 2010 Heart murmur Stroke surface stroke Sleep apnea dx light apnea Chronic kidney disease Anemia of chronic renal failure 01/24/2012 Past Surgical History Procedure Date Colonoscopy Cataract extraction 2004? History Social History Marital Status: Spouse Name: N/A Number of Children: N/A Years of Education: N/A Occupational History Not on file. Social History Main Topics Smoking status: Never Smoker Smokeless tobacco: Not on file Alcohol Use: No Drug Use: No Sexually Active: Not Currently -- Female partner(s) Control/ Protection: Abstinence Other Topics Concern Not on file Social History Narrative No narrative on file History reviewed. No pertinent family history. Scheduled Medications amLODIPine 5 mg Oral QPM aspirin 81 mg Oral Daily atorvastatin 40 mg Oral Nightly carvedilol 25 mg Oral BID WC clopidogrel 75 mg Oral Daily ferrous sulfate (65 FE) 324 mg Oral BID heparin (porcine) 5,000 Units Subcutaneous Q12H insulin lispro protamine-insulin lispro 5 Units Subcutaneous BID AC mesalamine 400 mg Oral 4x Daily AC & HS potassium chloride 40 mEq Oral Daily with breakfast terazosin 10 mg Oral Nightly vancomycin 125 mg Oral Q6H [DISCONTINUED] insulin lispro protamine-insulin lispro 15 Units Subcutaneous BID AC [DISCONTINUED] sodium bicarbonate 1,296 mg Oral TID Continuous Infusions custom IV infusion builder 75 mL/hr at 12/31/13 1124 [DISCONTINUED] sodium chloride 75 mL/hr at 12/31/13 0633 PRN Medications acetaminophen, acetaminophen, labetalol, loperamide, ondansetron, ondansetron, polyethylene glycol Allergy: Allergies Allergen Reactions Penicillins Other (See Comments) OBJECTIVE Vital Signs: BP 193/95 | Pulse 70 | Temp 98.6 F (37 C) (Oral) | Resp 18 | Ht 1.778 m (5' 10") | Wt 8 2 kg (180 lb 12.4 oz) | BMI 25.94 kg/m2 | SpO2 98% I&O Detailed Table: I/O last 3 completed shifts: In: 2386 [P.O.:1600; I.V.:786] Out: 1250 [Urine:1150; Stool:100] Weight change: Hemodynamics Last 24hrs: Examination: Constitutional: Alert and oriented to person, place, and time. Appears well-developed and well-nourished. HEENT: Neck supple, no JVD, non icteric sclera.Systolic murmur at apex with radiation to th e back and up to the carotids Cardiovascular: S1+ S2 no friction rub. Systolic murmur at apex with radiation to the back and up to the carotids LUNGS:: Clear breath sounds bilaterally, no wheezes and no rales. Abdominal: Soft, non tender on palpation, No distension and no mass. There is no rebound t enderness and no guarding. Musculoskeletal: No gross deformity, EXT: No pedal edema and pulses are palpable. Neurological: No gross focal motor neurologic deficits. Skin: Skin is warm and dry. No rashes, lacerations, erythema or jaundice. Psychiatric: AXOX3, mood and affect ok, memory seems to be intact. Lymph Nodes: Not Palpable LABS: IRON: Lab Results Component Value Date IRON 92 12/20/2013 Lab Results Component Value Date LABPROT 1650.0 11/15/2013 LABPROT 1371.4 09/20/2013 LABPROT 2215.7 07/08/2013 Lab Results Component Value Date FERRITIN 1210 12/20/2013 LABIRON 24.1 12/20/2013 Lab Results Component Value Date LABPROT 1650.0 11/15/2013 CBC: Lab Results Component Value Date WBC 9.2 12/31/2013 RBC 2.67* 12/31/2013 HGB 8.3* 12/31/2013 HCT 24.9* 12/31/2013 MCV 93.4 12/31/2013 MCH 31.2 12/31/2013 MCHC 33.3 12/31/2013 RDW 52.5 12/31/2013 PLT 186 12/31/2013 MPV 8.0 12/31/2013 DIFFTYPE AUTOMATED 12/31/2013 CMP: Lab Results Component Value Date NA 137 12/31/2013 K 4.1 12/31/2013 CL 117* 12/31/2013 CO2 13* 12/31/2013 ANIONGAP 11 12/31/2013 GLUF 76 12/31/2013 BUN 42* 12/31/2013 CREATININE 3.68* 12/31/2013 BCR 14 12/28/2013 CA 8.7 12/31/2013 CA 9.4 11/15/2013 PROT 7.3 12/27/2013 ALB 3.2* 12/31/2013 GLOB 3.8 12/27/2013 BILITOT 0.3 12/27/2013 ALP 17* 12/27/2013 AST 18 12/27/2013 ALT 14 12/27/2013 EGFR 18* 12/31/2013 Magnesium: Lab Results Component Value Date MG 1.8 12/30/2013 Phosphorus: Lab Results Component Value Date PHOS 3.0 12/31/2013 Lab Results Component Value Date PTHINTACT 38.19 11/15/2013 PTHINTACT 14.68 09/20/2013 PTHINTACT 17.77 03/22/2013 [id number] 65 09/20/2013 [id number] 49 07/20/2012 [id number] 19 01/20/2012 Lab Results Component Value Date TSH 0.61 12/30/2013 Lab Results Component Value Date URICACID 7.2 03/22/2013 URICACID 6.9 07/20/2012 URICACID 6.1 01/20/2012 Lab Results Component Value Date HGBA1C 5.9 07/20/2013 HGBA1C 5.3 2013 HGBA1C 7.200* 01/11/[address] Abdomen Pelvis Without Contrast 12/29/2013 HISTORY: 68 year-old male with nausea, renal failure. Pain TECHNIQUE: CT throug h the abdomen and pelvis. Performed without the administration of IV contrast. Examination p erformed with enteric contrast. Prior study for comparison: No similar study available FIN DINGS: Insurance Associate is notable for degenerative change the spinal column, hyperinflation the lungs . Lung bases demonstrate no infiltrate, discrete lesion or effusion, some COPD change is katz ggested, but no severe cystic parenchymal destruction. Bones are without aggressive lesion or fracture. Fairly severe degenerative changes particularly of the lower lumbar spine, ther e is bridging osteophytosis and sclerosis of the SI joints. Arthropathy of both hips. Soft tissue windows of the abdomen reveal a small pericardial effusion. A few punctate calcified gallstones without distention of the gallbladder or ductal system. The liver is normal to no ncontrast technique as is the spleen, the adrenal glands and pancreas are unremarkable, mild atrophy of the pancreas. Vasculopathy the aorta, branch vessels to include the renal arter ies. A cyst arises from the posterior cortex of the right kidney on image 31, about 1.5 cm, homogeneous and low density. The bowel is unobstructed but there is extensive diverticulosi s, points of wall thickening, particularly there is broad wall thickening about the sigmoid colon to the rectosigmoid junction. No focal high-grade inflammatory change, no abscess, denny e air or adenopathy. Pelvic structures are otherwise unremarkable, no adenopathy or hernia. . 12/29/2013 1. Extensive colonic diverticulosis and diffuse distal wall thickening, but no high-grade active inflammatory point, fluid collection, adenopathy or abscess. 2. Stomach i s filled with ingested contents, an element of thickening can't be excluded but there is no obstruction or extraluminal lesion. 3. Small gallstones, without ductal dilatation or infla mmatory change Other findings above are likely chronic and senescent, likely incidental to acute symptoms. Xr Chest Pa And Lateral 12/27/2013 History: 68 year-old male with unexplained nausea. Technique: Frontal and later al radiographic examination of the chest. No prior study for comparison. Findings: Cardiome diastinum is normal. Lungs are symmetrically inflated without pneumothorax, infiltrate, or effusion. Bones reveal midthoracic compression, unknown chronicity. No baseline study for c omparison. There is also multilevel disc endplate disease and some calcification of the intr a-longitudinal ligament 12/27/2013 1. No evident acute infiltrate, failure or active cardiopulmonary disease to ex plain symptoms 2. Degenerative changes and midthoracic compression fracture, without retrop ulsion. Unknown chronicity. 5:1 7 PM Ultrasound Renal 12/27/2013 BRIANNA VITAL 1945 US KIDNEYS AND BLADDER 12/27/2013 7:02 PM HISTORY: [place] renal failure COMPARISON: None. TECHNIQUE: Transabdominal ultrasound of the kidneys an d bladder, grayscale and color flow evaluation. FINDINGS: The bladder measures 5.3 x 7.6 x 9.6 cm with a prevoid volume of 204 mL. There is a residual post void residual of 39 mL. Th e right kidney demonstrates mild cortical thinning and slight increased echogenicity. The ri ght kidney measures 10.7 x 6.1 x 4.6 cm. There appears to be a small anechoic structure scarlet g the midpole of the right kidney with posterior acoustic enhancement measuring 1.2 cm in di ameter with no internal vascularity. No hydronephrosis is present. The left kidney also dem onstrates mild cortical thinning and measures 10.9 x 6.9 x 5.3 cm. No hydronephrosis or parish nephric fluid collection is demonstrated. 12/27/2013 1. There is no evidence of hydronephrosis. 2. Mild increased echogenicity and cortical thinning of the kidneys is nonspecific and may reflect mild medical renal disease. 3. Incidental right renal cyst. LEM LIST Principal Problem: *ARF (acute renal failure) Active Problems: CKD (chronic kidney disease), stage V Diabetes mellitus HTN (hypertension) Diabetic nephropathy Stroke In 2010 Dyslipidemia Iron deficiency Anemia of chronic renal failure Diarrhea Loss of appetite Loss of weight Metabolic acidosis, normal anion gap (NAG) ASSESSMENT & PLAN Mr. Vital is a 68 y.o. male patient with acute kidney injury superimposed on chronic kid emmy disease stage IV in the setting of volume depletion with ongoing diarrhea with colitis. Non-anion gap and a chronic acidosis with diarrhea I have suggested to change IV fluids to half normal saline with 3 ampules of sodium bicarbo donna for persistent very low CO2 Lab Results Component Value Date BUN 42* 12/31/2013 BUN 53* 12/30/2013 BUN 60* 12/29/2013 CREATININE 3.68* 12/31/2013 CREATININE 4.00* 12/30/2013 CREATININE 4.52* 12/29/2013 EGFR 18* 12/31/2013 EGFR 16* 12/30/2013 EGFR 14* 12/29/2013 Lab Results Component Value Date K 4.1 12/31/2013 K 3.9 12/30/2013 K 3.4* 12/29/[address] Abdomen Pelvis Without Contrast 12/29/2013 1. Extensive colonic diverticulosis and diffuse distal wall thickening, but no hi gh-grade active inflammatory point, fluid collection, adenopathy or abscess. 2. Stomach is f illed with ingested contents, an element of thickening can't be excluded but there is no obs truction or extraluminal lesion. 3. Small gallstones, without ductal dilatation or inflammat ory change Other findings above are likely chronic and senescent, likely incidental to acute symptoms. Ultrasound Renal 12/27/2013 1. There is no evidence of hydronephrosis. 2. Mild increased echogenicity and cor tical thinning of the kidneys is nonspecific and may reflect mild medical renal disease. 3. Incidental right renal cyst. Iron deficiency anemia Elevated ferritin with acute inflammatory state Chronic diarrhea Status post evaluation by Dr. Verduzco. No plan for repeat colonoscopy at this time. Repeat sto ol for C. difficile 12/30 Negative. Stool culture from the negative. Stool rotavirus fro m the negative. Fecal leukocytes from the positive. Stool occult blood from the positive. On oral vancomycin with presumed C. difficile colitis along with mesalamine Diverticulosis Hypoalbuminemia Needs more protein orally D/W DR MONTIEL for above plan , agreed Daily labs Time spend over 35 minutes of time spent evaluating the patient, reviewing the data, formul ating a plan and discussion with patient and hospitalist team, more than half of the time s pent in counseling and coordination of care. ANNY GARLAND MD 12/31/2013 Phan Rosa MD - 12/31/2013 4:14 PM PDT . Progress Notes by Thomas Montiel MD at 12/31/13 9905 Author: Thomas Montiel MD Service: Hospitalist Author Type: Physician Filed: 12/31/13 8029 Date of Service: 12/31/13 3769 Status: Signed Car Pick Up Driver: Thomas Montiel MD (Physician) [facility] Service: Hospitalist Progress Note Hospital Day: LOS: 4 days Post-Op Day: * No surgery found * SUBJECTIVE Patient Summary: refer to H&P and consult notes for details Events Overnight: Pt seen and examined,he denies CP or SOB or abdominal pain,around m idnight he has an explosive bout of watery diarrhea according to him one of the worst,improv ing renal function,worsening metabolic acidosis. Low BG, stable VS Scheduled Medications amLODIPine 5 mg Oral QPM aspirin 81 mg Oral Daily atorvastatin 40 mg Oral Nightly carvedilol 25 mg Oral BID WC clopidogrel 75 mg Oral Daily ferrous sulfate (65 FE) 324 mg Oral BID heparin (porcine) 5,000 Units Subcutaneous Q12H insulin lispro protamine-insulin lispro 5 Units Subcutaneous BID AC mesalamine 400 mg Oral 4x Daily AC & HS potassium chloride 40 mEq Oral Daily with breakfast terazosin 10 mg Oral Nightly vancomycin 125 mg Oral Q6H [DISCONTINUED] insulin lispro protamine-insulin lispro 15 Units Subcutaneous BID AC [DISCONTINUED] sodium bicarbonate 1,296 mg Oral TID Continuous Infusions custom IV infusion builder 75 mL/hr at 12/31/13 1124 [DISCONTINUED] sodium chloride 75 mL/hr at 12/31/13 0633 PRN Medications acetaminophen, acetaminophen, labetalol, loperamide, ondansetron, ondansetron, polyethylene glycol OBJECTIVE Vital Signs: BP 179/77 | Pulse 65 | Temp 98.4 F (36.9 C) (Oral) | Resp 20 | Ht 1.778 m (5' 10") | Wt 82 kg (180 lb 12.4 oz) | BMI 25.94 kg/m2 | SpO2 98% General appearance: alert, appears stated age, cooperative,and no distress Head: Normocephalic, without obvious abnormality, atraumatic Neck: no adenopathy, no carotid bruit, no JVD, supple, symmetrical, trachea midline and thy roid not enlarged, symmetric, no tenderness/mass/nodules Lungs: clear to auscultation bilaterally Heart: regular rate and rhythm, S1, S2 normal, no murmur, click, rub or gallop Abdomen: soft, non-tender; bowel sounds normal; no masses, no organomegaly cab be appreciat ed Extremities: extremities normal, atraumatic, no cyanosis or edema Pulses: 2+ and symmetric Neurologic: Grossly normal did not test for gait due to risk of falling DATA CBC: Lab Results Component Value Date WBC 9.2 12/31/2013 RBC 2.67* 12/31/2013 HGB 8.3* 12/31/2013 HCT 24.9* 12/31/2013 MCV 93.4 12/31/2013 MCH 31.2 12/31/2013 MCHC 33.3 12/31/2013 RDW 52.5 12/31/2013 PLT 186 12/31/2013 MPV 8.0 12/31/2013 DIFFTYPE AUTOMATED 12/31/2013 CMP: Lab Results Component Value Date NA 137 12/31/2013 K 4.1 12/31/2013 CL 117* 12/31/2013 CO2 13* 12/31/2013 ANIONGAP 11 12/31/2013 GLUF 76 12/31/2013 BUN 42* 12/31/2013 CREATININE 3.68* 12/31/2013 BCR 14 12/28/2013 CA 8.7 12/31/2013 CA 9.4 11/15/2013 PROT 7.3 12/27/2013 ALB 3.2* 12/31/2013 GLOB 3.8 12/27/2013 BILITOT 0.3 12/27/2013 ALP 17* 12/27/2013 AST 18 12/27/2013 ALT 14 12/27/2013 EGFR 18* 12/31/2013 Renal U/S Impression: 1. There is no evidence of hydronephrosis. 2. Mild increased echogenicity and cortical thinning of the kidneys is nonspecific and may reflect mild medical renal disease. 3. Incidental right renal cyst. Results for BRIANNA VITAL ( ) as of 12/29/2013 13:42 Ref. Range 12/28/2013 21:25 OCCULT BLOOD Latest Range: NEGATIVE NEGATIVE Results for VITAL, BRIANNA ( ) as of 12/29/2013 13:42 Ref. Range 12/28/2013 21:25 Toxigenic C Difficile Latest Range: NEGATIVE NEGATIVE CT-abdomen Impression: 1. Extensive colonic diverticulosis and diffuse distal wall thickening, but no high-grade a ctive inflammatory point, fluid collection, adenopathy or abscess. 2. Stomach is filled with ingested contents, an element of thickening can't be excluded but there is no obstruction or extraluminal lesion. 3. Small gallstones, without ductal dilatation or inflammatory change Other findings above are likely chronic and senescent, likely incidental to acute symptoms. LEM LIST Principal Problem: *ARF (acute renal failure) Active Problems: CKD (chronic kidney disease), stage V Diabetes mellitus HTN (hypertension) Diabetic nephropathy Stroke Dyslipidemia Iron deficiency Anemia of chronic renal failure Diarrhea Loss of appetite Loss of weight Metabolic acidosis, normal anion gap (NAG) ASSESSMENT & PLAN 1.ARF on CKD5 /metabolic acidosis could be due to GI losses/dehydration vs nephrotoxic meds he is on lasix/lisinopril at home Followed by i d/w and she recc switching to bic arb gtt. 2.HTN continue current BP meds and IV as needed labetalol,noted Norvasc was added. 3.DM2 low BG,decrease insulin and monitor BG and adjust as needed 4.Iron def anemia and anemia of CKD no s/s of bleeding recc per nephrology received procrit injection 5.Diarrhea and loss of appetite could be due to uremia vs infectious negative pending norov irus studies, continue oral vanco and mesalamine per recc ,reviewed CT abdomen. Rafa saravia needs to be monitored as he is still having loose stools and worsening metabolic acidosis. 6.hx of CVA in 2010 he is on ASA/plavix and Lipitor. 7.DVT px HSC and SCDs 8.low oral and weight loss intake consult dietary for supplements Discharge when cleared by nephrology /GI Disposition: Per CW he qualifies for inpatient Code Status: Full Code Thomas Montiel MD 12/31/2013 onversion Transaction, Provider Unknown - 12/31/2013 3:29 PM PDTFormatting of this note might be different from dario cohen original. Case Management by Gigi Olvera MS, [employer] at 12/31/13 4169 Author: Gigi Olvera MS, [employer] Service: (none) Author Type: Diversional Therapist Filed: 12/31/13 5212 Date of Service: 12/31/13 5592 Status: Signed Car Pick Up Driver: Gigi Olvera MS, [employer] (Diversional Therapist) IM given and educated today. Signed copy in medical chart. Asa Roque MD - 12/30/2013 4:58 PM PDTFormatting of this note might be different from the or iginal. Progress Notes by Asa Christianson MD at 12/30/13 6754 Author: Asa Christianson MD Service: Nephrology Author Type: Physician Filed: 12/30/13 9562 Date of Service: 12/30/13 0797 Status: Signed Car Pick Up Driver: Asa Christianson MD (Physician) PCP : STAR HARRIS LOS: 3 days Brianna Vital is a 68 y.o. male followed for acute on chronic kidney injury in the [facility] of chronic diarrhea with volume depletion. Covering for Dr. Hughes 12/30/13 Interval history: Brianna Vital feels 'little bit better' today. Overnight events: No fever, chills sweats. Persistent abdominal discomfort and diarrhea but no nausea, vomiting No shortness or breath, chest pain, cough. No dysuria, urgency, frequency, gross hematuria, urinary hesitancy. ROS: As in History of Present Illness. 7 area ROS was done and was otherwise negative. Examination: Constitutional: Alert, awake, oriented lying flat in bed in no distress HEENT: No JVD, non icteric sclera. Cardiovascular: S1 no friction rub. No S3. Systolic murmur at apex with radiation to the b ack and up to the carotids LUNGS:: Clear breath sounds bilaterally, no wheezes and no rales. Abdominal: Soft, left lower quadrant tenderness without any guarding, No distension and no mass. No rebound tenderness and no guarding. Musculoskeletal: No gross deformity, EXT: No lower extremity edema . Neurological: No gross focal motor neurologic deficits. Gait normal. Speech fluent. No asterixis Skin: Skin is warm and dry. No rashes, lacerations, erythema or jaundice. Psychiatric: Pleasant demeanor The following portions of the patient's history were reviewed and updated as appropriate: l aboratory data, radiologic studies, allergies, current medications, and problem list. Past m edical, surgical, social, and family history was also reviewed. Past history summarized as a todd. Scheduled Medications Reviewed. Continuous Infusions Reviewed. Vital Signs: BP 161/110 | Pulse 67 | Temp 98.1 F (36.7 C) (Oral) | Resp 18 | Ht 1.778 m (5' 10") | W t 84.6 kg (186 lb 8.2 oz) | BMI 26.76 kg/m2 | SpO2 94% I&O Detailed Table: I/O last 3 completed shifts: In: 475 [P.O.:475] Out: 2210 [Urine:1950; Stool:260] Weight change: Hemodynamics Last 24hrs: Assessment and Recommendations: Mr. Vital is a 68 y.o. male patient with acute kidney injury superimposed on chronic kid emmy disease stage IV in the setting of volume depletion with ongoing diarrhea with colitis. Iron deficiency anemia Elevated ferritin with acute inflammatory state Chronic diarrhea Diverticulosis Hypokalemia with diarrhea Hypoalbuminemia Non-anion gap and a chronic acidosis with diarrhea Ct Abdomen Pelvis Without Contrast 12/29/2013 1. Extensive colonic diverticulosis and diffuse distal wall thickening, but no high-grade active inflammatory point, fluid collection, adenopathy or abscess. 2. Stomach i s filled with ingested contents, an element of thickening can't be excluded but there is no obstruction or extraluminal lesion. 3. Small gallstones, without ductal dilatation or infla mmatory change Other findings above are likely chronic and senescent, likely incidental to acute symptoms. Ultrasound Renal 12/27/2013 1. There is no evidence of hydronephrosis. 2. Mild increased echogenicity and cortical thinning of the kidneys is nonspecific and may reflect mild medical renal disease. 3. Incidental right renal cyst. Lab data evaluation: Lab Results Component Value Date BUN 53* 12/30/2013 CREATININE 4.00* 12/30/2013 EGFR 16* 12/30/2013 NA 138 12/30/2013 K 3.9 12/30/2013 CL 115* 12/30/2013 CO2 15* 12/30/2013 CA 8.7 12/30/2013 PHOS 3.8 12/30/2013 MG 1.8 12/30/2013 ALB 3.3 12/30/2013 HGB 8.4* 12/30/2013 Component Value Date/Time CREATININE 4.00* 12/30/2013 0447 CREATININE 4.52* 12/29/2013 0830 CREATININE 5.10* 12/28/2013 0436 CREATININE 5.71* 12/27/2013 1650 CREATININE 5.97 12/20/2013 CREATININE 5.38 11/15/2013 CREATININE 4.77 09/20/2013 CREATININE 5.37 06/28/2013 CREATININE 5.07 06/21/2013 CREATININE 3.95 03/22/2013 12/30/13 Assessment Hemodynamically stable. Afebrile. Persistent ongoing diarrhea. Status post evaluation by Dr. Verduzco. No plan for repeat co lonoscopy at this time. Repeat stool for C. difficile 12/30 Negative. Stool culture from e negative. Stool rotavirus from the negative. Fecal leukocytes from the po sitive. Stool occult blood from the positive. On oral vancomycin with presumed C. dif ficile colitis along with mesalamine. CT scan from the , reviewed by myself with extensive diverticulosis but no diverticu litis and no other significant findings. Acute kidney injury superimposed on chronic kidney disease stage V established but impro ving slowly with cautious hydration with isotonic saline at 50 mL per hour.Creatinine slight ly lower with essentially no change in BUN. Blood pressure on the higher side. Compliant with amlodipine, Coreg, Terazosin. Non-anion gap metabolic acidosis with diarrhea. No hyperkalemia, clinical uremia, pericardial effusion and no hard indication for dialys is at this time. Moderately severe anemia, stable. High ferritin definitive of ongoing inflammatory stat e. No intravenous iron planned. On oral iron without any side effects. Hemoglobin low but stable. Normal white cell count.No thrombocytopenia. Potassium low but stable. Recommendations: Increase normal saline to 75 mL an hour. Start on sodium bicarbonate 2 tablets 3 times a day for acidosis which is persistent Continue potassium replacement Continue Coreg and amlodipine for blood pressure control Continue mesalamine 4 persistent colitis and diarrhea. Diet: 1 gm/kg protein, 1 gm PO4, restricted diet. Dose all meds for an eGFR of less than 15 ml/min/1.73 m2. No use of NSAIDs (including DUKE 2 inhibitors). No use of Magnesium or aluminum containing antacids. No use of Magnesium or phosphorus containing laxatives No Fluid restriction. Strict I/O. Daily weights. Keep in positive balance. Daily BMP (including Ca, PO4, Mg) ASA CHRISTIANSON MD 12/30/2013 Discussed with the primary team, Dr. Montiel the above. Seen earlier in the day and charting completed later after rounds. Dictation software, [employer], used which may contain error for similar sounding words even af ter review. Personal communication requested for any clarification. Prognosis guarded in view of multiple comorbid illnesses and acute on chronic renal failure including but not limited to potential need for dialysis and . Dr. Garland will assume nephrology care as of 5 pm tonight 12/30/13 Thomas Rosa MD - 12:37 PM PDT Progress Notes by Thomas Montiel MD at 12/30/13 1237 Author: Thomas Montiel MD Service: Hospitalist Author Type: Physician Filed: 12/30/13 1242 Date of Service: 12/30/13 1237 Status: Signed Car Pick Up Driver: Thomas Montiel MD (Physician) [facility] Service: Hospitalist Progress Note Hospital Day: LOS: 3 days Post-Op Day: * No surgery found * SUBJECTIVE Patient Summary: refer to H&P and consult notes for details Events Overnight: Pt seen and examined,he denies CP or SOB or abdominal pain,improved BP,continued improvement in cr/GFR,still has loose stools. Scheduled Medications amLODIPine 5 mg Oral QPM aspirin 81 mg Oral Daily atorvastatin 40 mg Oral Nightly carvedilol 25 mg Oral BID WC clopidogrel 75 mg Oral Daily ferrous sulfate (65 FE) 324 mg Oral BID heparin (porcine) 5,000 Units Subcutaneous Q12H insulin lispro protamine-insulin lispro 15 Units Subcutaneous BID AC mesalamine 400 mg Oral 4x Daily AC & HS potassium chloride 40 mEq Oral Daily with breakfast terazosin 10 mg Oral Nightly vancomycin 125 mg Oral Q6H Continuous Infusions sodium chloride 50 mL/hr at 12/30/13 0914 PRN Medications acetaminophen, acetaminophen, [COMPLETED] diatrizoate meglumine-sodium, labetalol, loperami de, ondansetron, ondansetron, polyethylene glycol OBJECTIVE Vital Signs: BP 133/62 | Pulse 70 | Temp 98.4 F (36.9 C) (Oral) | Resp 16 | Ht 1.778 m (5' 10") | Wt 84.6 kg (186 lb 8.2 oz) | BMI 26.76 kg/m2 | SpO2 98% General appearance: alert, appears stated age, cooperative,and no distress Head: Normocephalic, without obvious abnormality, atraumatic Neck: no adenopathy, no carotid bruit, no JVD, supple, symmetrical, trachea midline and thy roid not enlarged, symmetric, no tenderness/mass/nodules Lungs: clear to auscultation bilaterally Heart: regular rate and rhythm, S1, S2 normal, no murmur, click, rub or gallop Abdomen: soft, non-tender; bowel sounds normal; no masses, no organomegaly cab be appreciat ed Extremities: extremities normal, atraumatic, no cyanosis or edema Pulses: 2+ and symmetric Neurologic: Grossly normal did not test for gait due to risk of falling DATA CBC: Lab Results Component Value Date WBC 8.4 12/30/2013 RBC 2.70* 12/30/2013 HGB 8.4* 12/30/2013 HCT 25.2* 12/30/2013 MCV 93.3 12/30/2013 MCH 31.2 12/30/2013 MCHC 33.5 12/30/2013 RDW 50.8 12/30/2013 PLT 186 12/30/2013 MPV 7.6 12/30/2013 DIFFTYPE AUTOMATED 12/30/2013 CMP: Lab Results Component Value Date NA 138 12/30/2013 K 3.9 12/30/2013 CL 115* 12/30/2013 CO2 15* 12/30/2013 ANIONGAP 12 12/30/2013 GLUF 82 12/30/2013 BUN 53* 12/30/2013 CREATININE 4.00* 12/30/2013 BCR 14 12/28/2013 CA 8.7 12/30/2013 CA 9.4 11/15/2013 PROT 7.3 12/27/2013 ALB 3.3 12/30/2013 GLOB 3.8 12/27/2013 BILITOT 0.3 12/27/2013 ALP 17* 12/27/2013 AST 18 12/27/2013 ALT 14 12/27/2013 EGFR 16* 12/30/2013 Renal U/S Impression: 1. There is no evidence of hydronephrosis. 2. Mild increased echogenicity and cortical thinning of the kidneys is nonspecific and may reflect mild medical renal disease. 3. Incidental right renal cyst. Results for BRIANNA VITAL ( ) as of 12/29/2013 13:42 Ref. Range 12/28/2013 21:25 OCCULT BLOOD Latest Range: NEGATIVE NEGATIVE Results for BRIANNA VITAL ( ) as of 12/29/2013 13:42 Ref. Range 12/28/2013 21:25 Toxigenic C Difficile Latest Range: NEGATIVE NEGATIVE CT-abdomen Impression: 1. Extensive colonic diverticulosis and diffuse distal wall thickening, but no high-grade a ctive inflammatory point, fluid collection, adenopathy or abscess. 2. Stomach is filled with ingested contents, an element of thickening can't be excluded but there is no obstruction or extraluminal lesion. 3. Small gallstones, without ductal dilatation or inflammatory change Other findings above are likely chronic and senescent, likely incidental to acute symptoms. LEM LIST Principal Problem: *ARF (acute renal failure) Active Problems: CKD (chronic kidney disease), stage V Diabetes mellitus HTN (hypertension) Diabetic nephropathy Stroke Dyslipidemia Iron deficiency Anemia of chronic renal failure Diarrhea Loss of appetite Loss of weight ASSESSMENT & PLAN 1.ARF on CKD5 could be due to GI losses/dehydration vs nephrotoxic meds he is on lasix/geneva nopril at home , is following and he is on IVF. This is overall improving. 2.HTN continue current BP meds and IV as needed labetalol,noted Norvasc was added. 3.DM2 continue insulin as ordered and monitor BG adjust as needed. 4.Iron def anemia and anemia of CKD no s/s of bleeding recc per nephrology received procrit injection 5.Diarrhea and loss of appetite could be due to uremia vs infectious negative stool stool c x and pending ova/parasite and viral studies, i reviewed dr.yang sanchez and he added oral vanc o and mesalamine ,reviewed CT abdomen. Still needs to be monitored as he is still having loo se stools. 6.hx of CVA in 2010 he is on ASA/plavix and Lipitor. 7.DVT px HSC and SCDs 8.low oral and weight loss intake consult dietary for supplements Discharge when cleared by nephrology /GI Disposition: Per CW he qualifies for inpatient Code Status: Full Code Thomas Montiel MD 12/30/2013 onversion Transaction, Provider Unknown - 12/30/2013 12:28 PM PDTFormatting of this note might be different from th e original. Nurse Progress Note by Francheska Scales RN at 12/30/13 1228 Author: Francheska Scales RN Service: (none) Author Type: Registered Nurse Filed: 12/30/131227 Date of Service: 12/30/131227 Status: Signed Car Pick Up Driver: Francheska Scales RN (Registered Nurse) Report called to GUSTAVO Gomez. koum, Sweta Hollis MD - 12/29/2013 8:05 PM PDTFormatting of this note might be different from th e original. Progress Notes by Sweta Hughes MD at 12/29/132004 Author: Sweta Hughes MD Service: Nephrology Author Type: Physician Filed: 12/29/132221 Date of Service: 12/29/132004 Status: Signed Car Pick Up Driver: Sweta Hughes MD (Physician) [facility] Service: Nephrology Progress Note The patient says that he feels 'better' today. he denies any cp, sob, n/v. Diarrhea persis ts. GI on board. his urine output is better with improvement of volume. The following portions of the patient's history were reviewed and updated as appropriate: l aboratory data, radiologic studies, allergies, current medications, and problem list. BP 183/75 | Pulse 64 | Temp 98.6 F (37 C) (Oral) | Resp 16 | Ht 1.778 m (5' 10") | Wt 8 4.6 kg (186 lb 8.2 oz) | BMI 26.76 kg/m2 | SpO2 100% General appearance: Pleasant, not in acute distress. Lungs: Clear to auscultation bilaterally and resonant. There are no wheezes. Heart: Regular rate and rhythm without any rub, gallop. Grade 4 systolic murmur is unchang ed. Abdominal exam: Soft and nontender with normal bowel sounds. Extremities: Warm to touch with no leg edema. There is no cyanosis or clubbing. Neurological: Awake, alert, and oriented to time, place, and person. Normal gross motor po wer. There is no asterixis. Lab Results Component Value Date BUN 60* 12/29/2013 CREATININE 4.52* 12/29/2013 EGFR 14* 12/29/2013 NA 143 12/29/2013 K 3.4* 12/29/2013 CL 117* 12/29/2013 CO2 17* 12/29/2013 CA 8.6 12/29/2013 PHOS 3.2 12/29/2013 MG 1.9 12/28/2013 ALB 3.0* 12/29/2013 HGB 8.5* 12/28/2013 Assessment: Mr. Vital is a 68 y.o. male patient with stage 3 LAKESHIA (acute kidney injury), that is hemo dynamic in the setting of volume depletion. The most likely pathology here is that of vasomo tor nephropathy, with a background of of diabetic nephropathy +/- hypertensive nephroscleros is/arteriolosclerosis. he reports he is tired often. over the past few weeks, he has been dizzy, having intermitte nt diarrhea, & worsening anorexia. He has been losing wt sharply over the past few weeks. RENAL FUNCTION: Worse than baseline, but stable today BLOOD PRESSURE: ok ELECTROLYTES: abnormal Sodium: ok Potassium: low Calcium: ok Magnesium: ok Phosphorus: ok Acid/Base: Met acidemia ANEMIA: moderate (given Procrit 10K subcut x1 on 12/28/13) ALBUMIN: low URINALYSIS: No UTI or hematuria VOLUME STATUS: Depletion is improving I discussed today with Mr. Vital the meaning of his LAKESHIA and the interaction of that with his hemodynamics. Recommendations: 1. Decrease IVF NS to 50/hr. 2. No acute indication for KRT at this time. 3. Add Amlodipine 5 mg PO QHS 4. KCl 40 mEq PO now then daily, as long as diarrhea persists 5. 6. Because of severely high Ferritin, No IV Fe planned 7. Strict I/O & daily weights 8. Dose all of his meds to his current estimated GFR. 9. Continue to avoid all kinds of nephrotoxins. 10. Target euvolumia with a MAP>75 mmHg as possible. 11. Given his tendency for anasarca: Encourage PO intake & close dietitian F/U. Encourage a mbulation safely. Encourage the adequate use of an incentive spirometer. I discussed with the primary team the case. SWETA HUGHES MD 12/29/2013 Thomas Rosa MD - 12/29/2013 1:40 PM PDT Progress Notes by Thomas Montiel MD at 12/29/13 1340 Author: Thomas Montiel MD Service: Hospitalist Author Type: Physician Filed: 12/29/13 7248 Date of Service: 12/29/131339 Status: Signed Car Pick Up Driver: Thomas Montiel MD (Physician) [facility] Service: Hospitalist Progress Note Hospital Day: LOS: 2 days Post-Op Day: * No surgery found * SUBJECTIVE Patient Summary: refer to H&P and consult note for details Events Overnight: Pt seen and examined,he denies CP or SOB or abdominal pain,improved BP,continued improvement in cr/GFR. He has diarrhea again this morning and it was watery. N egative stools for C diff and hemoccult. Scheduled Medications aspirin 81 mg Oral Daily atorvastatin 40 mg Oral Nightly carvedilol 25 mg Oral BID WC clopidogrel 75 mg Oral Daily ferrous sulfate (65 FE) 324 mg Oral BID heparin (porcine) 5,000 Units Subcutaneous Q12H insulin lispro protamine-insulin lispro 15 Units Subcutaneous BID AC terazosin 10 mg Oral Nightly Continuous Infusions sodium chloride 100 mL/hr at 12/29/13 0712 PRN Medications acetaminophen, acetaminophen, labetalol, loperamide, ondansetron, ondansetron, polyethylene glycol OBJECTIVE Vital Signs: BP 165/74 | Pulse 67 | Temp 98.3 F (36.8 C) (Oral) | Resp 16 | Ht 1.778 m (5' 10") | Wt 84.6 kg (186 lb 8.2 oz) | BMI 26.76 kg/m2 | SpO2 99% General appearance: alert, appears stated age, cooperative, fatigued and no distress Head: Normocephalic, without obvious abnormality, atraumatic Neck: no adenopathy, no carotid bruit, no JVD, supple, symmetrical, trachea midline and thy roid not enlarged, symmetric, no tenderness/mass/nodules Lungs: clear to auscultation bilaterally Heart: regular rate and rhythm, S1, S2 normal, no murmur, click, rub or gallop Abdomen: soft, non-tender; bowel sounds normal; no masses, no organomegaly cab be appreciat ed Extremities: extremities normal, atraumatic, no cyanosis or edema Pulses: 2+ and symmetric Neurologic: Grossly normal did not test for gait due to risk of falling DATA CBC: Lab Results Component Value Date WBC 8.5 12/28/2013 RBC 2.73* 12/28/2013 HGB 8.5* 12/28/2013 HCT 25.7* 12/28/2013 MCV 94.1 12/28/2013 MCH 31.2 12/28/2013 MCHC 33.2 12/28/2013 RDW 50.8 12/28/2013 PLT 193 12/28/2013 MPV 7.9 12/28/2013 DIFFTYPE AUTOMATED 12/28/2013 CMP: Lab Results Component Value Date NA 143 12/29/2013 K 3.4* 12/29/2013 CL 117* 12/29/2013 CO2 17* 12/29/2013 ANIONGAP 12 12/29/2013 GLUF 98 12/29/2013 BUN 60* 12/29/2013 CREATININE 4.52* 12/29/2013 BCR 14 12/28/2013 CA 8.6 12/29/2013 CA 9.4 11/15/2013 PROT 7.3 12/27/2013 ALB 3.0* 12/29/2013 GLOB 3.8 12/27/2013 BILITOT 0.3 12/27/2013 ALP 17* 12/27/2013 AST 18 12/27/2013 ALT 14 12/27/2013 EGFR 14* 12/29/2013 Results for BRIANNA VITAL ( ) as of 12/28/2013 16:39 Ref. Range 12/28/2013 08:46 pH Latest Range: 7.300-7.450 7.230 (L) Renal U/S Impression: 1. There is no evidence of hydronephrosis. 2. Mild increased echogenicity and cortical thinning of the kidneys is nonspecific and may reflect mild medical renal disease. 3. Incidental right renal cyst. Results for BRIANNA VITAL ( ) as of 12/29/2013 13:42 Ref. Range 12/28/2013 21:25 OCCULT BLOOD Latest Range: NEGATIVE NEGATIVE Results for BRIANNA VITAL ( ) as of 12/29/2013 13:42 Ref. Range 12/28/2013 21:25 Toxigenic C Difficile Latest Range: NEGATIVE NEGATIVE PROBLEM LIST Principal Problem: *ARF (acute renal failure) Active Problems: CKD (chronic kidney disease), stage V Diabetes mellitus HTN (hypertension) Diabetic nephropathy Stroke Dyslipidemia Iron deficiency Anemia of chronic renal failure Diarrhea Loss of appetite Loss of weight ASSESSMENT & PLAN 1.ARF on CKD5 could be due to GI losses/dehydration vs nephrotoxic meds he is on lasix/geneva nopril at home , is following. 2.HTN continue current BP meds and IV as needed labetalol 3.DM2 continue insulin as ordered and monitor BG adjust as needed. 4.Iron def anemia and anemia of CKD no s/s of bleeding recc per nephrology received procrit injection 5.Diarrhea and loss of appetite could be due to uremia vs infectious pending stool stool cx and ova/parasite and viral studies, i have asked for records from last colonoscopy and also d/w and consulted who recc imodium and also a CT abdomen with oral contrast only an d he will see the patient, patient in agreement 6.hx of CVA in 2010 he is on ASA/plavix and Lipitor. 7.DVT px HSC and SCDs 8.low oral and weight loss intake consult dietary for supplements Discharge when cleared by nephrology /GI Disposition: obs Code Status: Full Code Thomas Montiel MD 12/29/2013 onversion Transaction, Provider Unknown - 12/28/2013 4:30 PM PDTFormatting of this note might be different from dario cohen original. Case Management by Donna Mathis RN at 12/28/13 4470 Author: Donna Mathis RN Service: (none) Author Type: Registered Nurse Filed: 12/28/13 1630 Date of Service: 12/28/13 1630 Status: Signed Car Pick Up Driver: Donna Mathis RN (Registered Nurse) Discharge planning: CM spoke with the lead RN and/or pt's RN regarding discharge needs. P er their report, they did not identify needs and feel that the pt does not need to be seen b y CM at this time. I encouraged them to enter a CM consult as needs arise. ; Thomas Rosa MD - 12/28/2013 2:35 PM PDTFormatting of this note might be different from the origi nal. Progress Notes by Thoams Montiel MD at 12/28/13 1435 Author: Thomas Montiel MD Service: Hospitalist Author Type: Physician Filed: 12/28/135 Date of Service: 12/28/131434 Status: Addendum Car Pick Up Driver: Thomas Montiel MD (Physician) Related Notes: Original Note by Thomas Montiel MD (Physician) filed at 12/28/13 1644 [facility] Service: Hospitalist Progress Note Hospital Day: LOS: 1 day Post-Op Day: * No surgery found * SUBJECTIVE Patient Summary: refer to H&P and consult note for details Events Overnight: Pt seen and examined,he denies CP or SOB,labile BP, slight improvem ent in cr/GFR. No bowel movement yet, low oral intake. Scheduled Medications aspirin 81 mg Oral Daily atorvastatin 40 mg Oral Nightly carvedilol 25 mg Oral BID WC clopidogrel 75 mg Oral Daily [COMPLETED] epoetin lakeisha 10,000 Units Subcutaneous Once ferrous sulfate (65 FE) 324 mg Oral BID heparin (porcine) 5,000 Units Subcutaneous Q12H insulin lispro protamine-insulin lispro 15 Units Subcutaneous BID AC [COMPLETED] ondansetron 4 mg Intravenous Once terazosin 10 mg Oral Nightly [DISCONTINUED] insulin lispro protamine-insulin lispro 15 Units Subcutaneous BID AC Continuous Infusions [COMPLETED] sodium chloride Stopped (12/27/13 1859) sodium chloride 100 mL/hr at 12/28/13 0959 PRN Medications acetaminophen, acetaminophen, labetalol, ondansetron, ondansetron, polyethylene glycol OBJECTIVE Vital Signs: BP 194/84 | Pulse 69 | Temp 98.5 F (36.9 C) (Oral) | Resp 16 | Ht 1.778 m (5' 10") | Wt 84.6 kg (186 lb 8.2 oz) | BMI 26.76 kg/m2 | SpO2 99% General appearance: alert, appears stated age, cooperative, fatigued and no distress Head: Normocephalic, without obvious abnormality, atraumatic Neck: no adenopathy, no carotid bruit, no JVD, supple, symmetrical, trachea midline and thy roid not enlarged, symmetric, no tenderness/mass/nodules Lungs: clear to auscultation bilaterally Heart: regular rate and rhythm, S1, S2 normal, no murmur, click, rub or gallop Abdomen: soft, non-tender; bowel sounds normal; no masses, no organomegaly cab be appreciat ed Extremities: extremities normal, atraumatic, no cyanosis or edema Pulses: 2+ and symmetric Neurologic: Grossly normal did not test for gait due to risk of falling DATA CBC: Lab Results Component Value Date WBC 8.5 12/28/2013 RBC 2.73* 12/28/2013 HGB 8.5* 12/28/2013 HCT 25.7* 12/28/2013 MCV 94.1 12/28/2013 MCH 31.2 12/28/2013 MCHC 33.2 12/28/2013 RDW 50.8 12/28/2013 PLT 193 12/28/2013 MPV 7.9 12/28/2013 DIFFTYPE AUTOMATED 12/28/2013 CMP: Lab Results Component Value Date NA 135 12/28/2013 K 3.8 12/28/2013 CL 112* 12/28/2013 CO2 15* 12/28/2013 ANIONGAP 12 12/28/2013 GLUF 144* 12/28/2013 BUN 69* 12/28/2013 CREATININE 5.10* 12/28/2013 BCR 14 12/28/2013 CA 9.0 12/28/2013 CA 9.4 11/15/2013 PROT 7.3 12/27/2013 ALB 3.5 12/27/2013 GLOB 3.8 12/27/2013 BILITOT 0.3 12/27/2013 ALP 17* 12/27/2013 AST 18 12/27/2013 ALT 14 12/27/2013 EGFR 12* 12/28/2013 Results for BRIANNA VITAL ( ) as of 12/28/2013 16:39 Ref. Range 12/28/2013 08:46 pH Latest Range: 7.300-7.450 7.230 (L) Renal U/S Impression: 1. There is no evidence of hydronephrosis. 2. Mild increased echogenicity and cortical thinning of the kidneys is nonspecific and may reflect mild medical renal disease. 3. Incidental right renal cyst. LEM LIST Principal Problem: *ARF (acute renal failure) Active Problems: CKD (chronic kidney disease), stage V Diabetes mellitus HTN (hypertension) Diabetic nephropathy Stroke Dyslipidemia Iron deficiency Anemia of chronic renal failure Diarrhea Loss of appetite ASSESSMENT & PLAN 1.ARF on CKD5 could be due to GI losses/dehydration vs nephrotoxic meds he is on lasix/geneva nopril at home regimen and possible labile BP/BG , is consulting follow his recc. 2.HTN labile BP continue current BP meds and add IV as needed labetalol 3.DM2 continue insulin as ordered and monitor BG adjust as needed. 4.Iron def anemia and anemia of CKD no s/s of bleeding recc per nephrology received procrit injection 5.Diarrhea and loss of appetite could be due to uremia vs infectious pending for C diff and hemoccult stool stool cx and ova/parasite,Monitor progress, will consult GI if needed 6.hx of CVA in 2010 he is on ASA/plavix and Lipitor. 7.DVT px HSC and SCDs 8.low oral intake consult dietary for supplements Discharge when cleared by nephrology Disposition: obs Code Status: Full Code Thomas Montiel MD 12/28/2013 onversion Transaction, Provider Unknown - 12/27/2013 7:48 PM PDTFormatting of this note might be different from dario whipple. Progress Notes by Flores Rausch RPH at 12/27/131947 Author: Flores Rausch RPH Service: (none) Author Type: Pharmacist Filed: 12/27/131947 Date of Service: 12/27/131947 Status: Signed Car Pick Up Driver: Flores Rausch RPH (Pharmacist) Renal Dosing Monitoring: Brianna Vital 68 y.o. male Pharmacy dosing for renal function per Dr. Thomas Montiel CREATININE: 5.71 mg/dL ABNORMAL (12/27/13 1650) Estimated creatinine clearance - Cockcroft-Gault CrCl: 12.6 mL/min Plan per protocol: No medications need adjustment at this time. Pharmacy will continue to monitor changes in medication orders and renal function and will adjust accordingly. 12/27/2013 7:48 PM Pharmacist: Flores Rausch docume nted in this encounter H&P Notes Thomas Montiel MD - 12/27/2013 5:47 PM PDTFormatting of this note might be different from th e original. H&P by Thomas Montiel MD at 12/27/13 628 Author: Thomas Montiel MD Service: Hospitalist Author Type: Physician Filed: 12/27/131935 Date of Service: 12/27/131746 Status: Signed Car Pick Up Driver: Thomas Montiel MD (Physician) [facility] Service: Hospitalist Admission History & Physical Date of Admission: 12/27/2013 Requesting Physician: , Emergency Department Reason for Admission: ARF on CKD5 History Obtained From: patient, chart review CHIEF COMPLAINT: i was sent to the hospital by HISTORY OF PRESENT ILLNESS The patient is a 68 y.o. male with significant past medical history of CKD5,HTN.,DM2 on ins ulin, hyperlipidemia and hx of CVA in 2010 who was sent from office due to worsenin g renal function and hypotension with SBP in 80s,he has been having weight loss and intermit tent diarrhea as well as low oral intake over the past few weeks,his BG is also fluctuating, when i saw him in ED he was on RA, denies CP or SOB or abdominal pain. BP was 109/72.H&H 8.1 /24.1 cr 5.71 GFR 11 and k is 3.9, contacted per ER asked for fluid bolus and then NS @100 ml/hr and to order a renal U/S. REVIEW OF SYSTEMS A comprehensive review of systems was negative except for above HPI. Past Medical History Diagnosis Date Hypertension Hyperlipidemia Diabetes mellitus, type 2 TIA (transient ischemic attack) 2010 Heart murmur History reviewed. No pertinent past surgical history. Allergies Allergen Reactions Penicillins Other (See Comments) (Not in a hospital admission) History reviewed. No pertinent family history. History Social History Marital Status: Spouse Name: N/A Number of Children: N/A Years of Education: N/A Occupational History Not on file. Social History Main Topics Smoking status: Never Smoker Smokeless tobacco: Not on file Alcohol Use: No Drug Use: No Sexually Active: Not on file Other Topics Concern Not on file Social History Narrative No narrative on file PHYSICAL EXAM Vital Signs: BP 109/72 | Pulse 85 | Temp 99.1 F (37.3 C) (Temporal) | Resp 18 | Wt 85.5 kg (188 lb 7 .9 oz) | SpO2 98% General appearance: alert, appears stated age, cooperative, fatigued and no distress Head: Normocephalic, without obvious abnormality, atraumatic Neck: no adenopathy, no carotid bruit, no JVD, supple, symmetrical, trachea midline and thy roid not enlarged, symmetric, no tenderness/mass/nodules Lungs: clear to auscultation bilaterally Heart: regular rate and rhythm, S1, S2 normal, no murmur, click, rub or gallop Abdomen: soft, non-tender; bowel sounds normal; no masses, no organomegaly Extremities: extremities normal, atraumatic, no cyanosis or edema Pulses: 2+ and symmetric Neurologic: Grossly normal did not test for gait due to risk of falling DATA CBC: Lab Results Component Value Date WBC 7.5 12/27/2013 RBC 2.63* 12/27/2013 HGB 8.1* 12/27/2013 HCT 24.1* 12/27/2013 MCV 91.5 12/27/2013 MCH 30.8 12/27/2013 MCHC 33.6 12/27/2013 RDW 50.8 12/27/2013 PLT 198 12/27/2013 MPV 7.4 12/27/2013 DIFFTYPE AUTOMATED 12/27/2013 CMP: Lab Results Component Value Date NA 137 12/27/2013 K 3.9 12/27/2013 CL 108 12/27/2013 CO2 17* 12/27/2013 ANIONGAP 17 12/27/2013 GLUF 232* 12/27/2013 BUN 73* 12/27/2013 CREATININE 5.71* 12/27/2013 BCR 13 12/27/2013 CA 9.1 12/27/2013 CA 9.4 11/15/2013 PROT 7.3 12/27/2013 ALB 3.5 12/27/2013 GLOB 3.8 12/27/2013 BILITOT 0.3 12/27/2013 ALP 17* 12/27/2013 AST 18 12/27/2013 ALT 14 12/27/2013 EGFR 11* 12/27/2013 CXR Impression: 1. No evident acute infiltrate, failure or active cardiopulmonary disease to explain sympto ms 2. Degenerative changes and midthoracic compression fracture, without retropulsion. Unknown chronicity. Renal U/S ordered PROBLEM LIST Principal Problem: *ARF (acute renal failure) Active Problems: CKD (chronic kidney disease), stage V Diabetes mellitus HTN (hypertension) Diabetic nephropathy Stroke Dyslipidemia Iron deficiency Anemia of chronic renal failure Diarrhea Loss of appetite ASSESSMENT & PLAN 1.ARF on CKD5 could be due to GI losses/dehydration vs nephrotoxic meds he is on lasix/geneva nopril at home regimen and possible labile BP/BG , is consulting will continue IVF p er his recc and follow on renal U/S report, Strict I/O and send for UA. Avoid NSAID's and ne phrotoxins. 2.HTN he was actually hypotensive today so will hold all his BP medication and monitor BP. Adjust as needed 3.DM2 will resume home insulin but will decrease dose to 15 units BID from 35 units BID due to low oral intake and worsening GRF to avoid risk of hypoglycemia. He agrees. 4.Iron def anemia and anemia of CKD no s/s of bleeding recc per nephrology no indication fo r PRBCs infusion. 5.Diarrhea and loss of appetite could be due to uremia vs infectious will send for C diff a nd hemoccult stool and monitor if no improvement probably GI consult should be considered. M onitor progress 6.hx of CVA in 2010 he is on ASA/plavix and Lipitor. 7.DVT px HSC and SCDs Disposition: obs Code Status: Full code per patient request Primary Care Physician: STAR Montiel MD 12/27/2013 documented in this encou nter Consult Notes Conversion Transaction, Provider Unknown - 01/01/2014 9:30 AM PDTFormatting of this note m ight be different from the original. Consults by Sandra Martin RN at 01/01/14929 Author: Sandra Martin RN Service: Wound/Ostomy Care Author Type: Registered Nurse Filed: 01/01/14935 Date of Service: 01/01/14929 Status: Signed Car Pick Up Driver: Sandra Martin RN (Registered Nurse) Consult Orders: 1. Wound Care Evaluation and Treat [[id number]] ordered by Thomas Montiel MD at 12/31/13920 [facility] Service: Wound Care Consult Note Hospital Day: LOS: 5 days Post-Op Day: * No surgery found * SUBJECTIVE Patient Summary: Patient admitted with ARF. History of open wound on forehead times > 1 month. He states he has seen a deliver driver in [facility] for this wound. He does not recall the name of the deliver driver but remember that the deliver driver told him that it w ould "be OK and that it would heal". Patient states he has had difficulty with "picking" at the wound. OBJECTIVE Wound #1: Classification: trauma self inflicted Location:forehead Drainage Amount:Moderate Drainage Type:Sero-Sanguinous Wound Odor After Wound is Cleaned:None Periwound Skin:intact Wound Size:0.8 (cm) Length x 1.2 cm width x 0.2 cm depth. Wound Bed:Red Wound Exam:open Wound Infection:no s/s PROBLEM LIST Principal Problem: *ARF (acute renal failure) Active Problems: CKD (chronic kidney disease), stage V Diabetes mellitus HTN (hypertension) Diabetic nephropathy Stroke Dyslipidemia Iron deficiency Anemia of chronic renal failure Diarrhea Loss of appetite Loss of weight Metabolic acidosis, normal anion gap (NAG) ASSESSMENT & PLAN Classification: trauma Pressure Ulcer Stage - full thickness Was Pressure Ulcer Present on Admission- Yes n/a removal of existing dressing visual inspection cleansing with wound cleanser solution application of clean dressing Encouraged patient to keep wound covered and contact deliver driver if wound does not heal i n 1 month. Thank you for allowing me to participate in the care of this patient. I will continue to follow with you. SANDRA MARTIN RN 9:31 AM 01/01/2014 James Wilkerson - 12/29/2013 9:22 PM PDT . Consults by James Verduzco MD at 12/29/132121 Author: James Verduzco MD Service: Gastroenterology Author Type: Physician Filed: 12/29/13 5031 Date of Service: 12/29/132121 Status: Signed Car Pick Up Driver: James Verduzco MD (Physician) Related Notes: Original Note by James Verduzco MD (Physician) filed at 12/29/132137 Consult Orders: 1. Inpatient consult to GI [[id number]] ordered by Thomas Montiel MD at 12/29/13 1104 [facility] Service: Gastroenterology Initial Consult Note Date of Admission: 12/27/2013 Reason for Consultation: Chronic diarrhea, anorexia and weight loss Requesting Physician: Dr. Montiel History Obtained From: patient, spouse, chart review HISTORY OF PRESENT ILLNESS The patient is a 68 y.o. male who had no significant GI problem other than he developed chip rrhea about 2 to 3 months ago and it has happened intermittently. He also lost his appetite and has lost almost 40 pounds since the last 6 months or so but in the last 1 month, he lost about 15 plus pounds of weight. The patient's and patient tell me that he has a very p oor appetite and he does not eat much. The reason he was hospitalized at this time was Dr. Navin bishop found him to be worsening in his usual kidney function and he was hypotensive. The ronny ent was hospitalized and received IV hydration and then things seemed to be turning around. He has gained some appetite and he was able to eat some solid food today. However, diarrhea has been persistent. He did have a colonoscopy examination about 5+ weeks ago in [facility] at that time, apparently the workup reason was for anemia and possible occult blood posit ej at that time. Colonoscopic examination was unremarkable other than diverticulitis. No bi opsy was obtained at that time. The patient denied any heartburn, dysphagia, or indigestion, but he does have a very poor appetite. The patient also denied any particular abdominal antonina n or back pain. He denied seeing any gross rectal bleeding or melena. There was no associate d joint pain, skin rash. REVIEW OF SYSTEMS CONSTITUTIONAL: There have been no fever or chills. RESPIRATORY: negative for hemoptysis CARDIOVASCULAR: negative for chest pain and palpitation GASTROINTESTINAL: positive for diarrhea GENITOURINARY: negative for dysuria and hematuria Past Medical History Diagnosis Date Hypertension Hyperlipidemia Diabetes mellitus, type 2 TIA (transient ischemic attack) 2010 Heart murmur Stroke surface stroke Sleep apnea dx light apnea Chronic kidney disease Anemia of chronic renal failure 01/24/2012 Past Surgical History Procedure Date Colonoscopy Cataract extraction 2004? Allergies Allergen Reactions Penicillins Other (See Comments) Prescriptions prior to admission Medication Sig Dispense Refill amlodipine (NORVASC) 10 MG tablet Take 10 mg by mouth daily. Ascorbic Acid (VITAMIN C) 500 MG tablet Take 250 mg by mouth 2 (two) times daily. aspirin 81 MG tablet Take 81 mg by mouth daily. atorvastatin (LIPITOR) 40 MG tablet Take 40 mg by mouth nightly. carvedilol (COREG) 25 MG tablet Take 25 mg by mouth 2 (two) times daily with meals. Cholecalciferol (VITAMIN D PO) Take 5,000 Int'l Units by mouth once a week. clopidogrel (PLAVIX) 75 MG tablet Take 75 mg by mouth daily. fenofibrate (TRIGLIDE) 160 MG tablet Take 48 mg by mouth daily. ferrous gluconate (FERGON) 325 MG tablet Take 5 mg by mouth 2 (two) times daily. lisinopril (PRINIVIL,ZESTRIL) 40 MG tablet Take 40 mg by mouth 2 (two) times daily. niacin 500 MG tablet Take 500 mg by mouth 2 (two) times daily. sitagliptan (JANUVIA) 100 MG tablet Take 50 mg by mouth daily. 1/2 tab terazosin (HYTRIN) 5 MG capsule Take 10 mg by mouth nightly. 2 x 5 mg capsules once latha ly epoetin lakeisha (PROCRIT) 08820 UNIT/ML injection Inject 1 mL into the skin every 14 (four teen) days. 6 mL 4 furosemide (LASIX) 20 MG tablet Take 20 mg by mouth daily. glucose blood test strip 1 each by Other route as needed. Use as instructed insulin lispro protamine-insulin lispro (HUMALOG 75/25) (75-25) 100 UNIT/ML injection I nject into the skin 2 (two) times daily before meals. Sliding scale: 20-35 units "it varies " Scheduled Medications aspirin 81 mg Oral Daily atorvastatin 40 mg Oral Nightly carvedilol 25 mg Oral BID WC clopidogrel 75 mg Oral Daily ferrous sulfate (65 FE) 324 mg Oral BID heparin (porcine) 5,000 Units Subcutaneous Q12H insulin lispro protamine-insulin lispro 15 Units Subcutaneous BID AC mesalamine 400 mg Oral 4x Daily AC & HS terazosin 10 mg Oral Nightly vancomycin 125 mg Oral Q6H Continuous Infusions sodium chloride 100 mL/hr at 12/29/13 1807 PRN Medications acetaminophen, acetaminophen, [COMPLETED] diatrizoate meglumine-sodium, labetalol, loperami de, ondansetron, ondansetron, polyethylene glycol History reviewed. No pertinent family history. History Smoking status Never Smoker Smokeless tobacco Not on file History Alcohol Use No History Drug Use No PHYSICAL EXAM Vital Signs: BP 183/75 | Pulse 64 | Temp 98.6 F (37 C) (Oral) | Resp 16 | Ht 1.778 m (5' 10") | Wt 8 4.6 kg (186 lb 8.2 oz) | BMI 26.76 kg/m2 | SpO2 100% GENERAL: Well-built, well-nourished man laying in bed, does not appear to be in any acute d istress. He is answering all the questions appropriately. HEENT: Atraumatic, normocephalic. Anicteric. No nose or gum bleeding. NECK: Supple. LUNGS: Clear, without rales, rhonchi, or wheezes. HEART: Regular S1, S2. A grade 3/6 systolic ejection murmur heard in the left lower sternal border area. No gallop heard. ABDOMEN: Flat. Bowel tones hyperactive. No rigidity or rebound tenderness. No hepatosplenom egaly noted. No palpable mass noted. RECTAL: Exam deferred. EXTREMITIES: No edema noted. NEUROLOGIC: No obvious focal deficit noted. DATA Results Procedure Component Value Units Date/Time Fecal leukocytes [[id number]] Collected:12/28/13 2125 Specimen Information:Stool / Stool Updated:12/29/13 1705 FECAL WHITE CELLS 3+ WBC'S SEEN Norovirus 1 and 2 PC [[id number]] Collected:12/29/13 1516 Specimen Information:Stool Updated:12/29/13 1522 Rotavirus antigen, stool [[id number]] Collected:12/29/13 1516 Specimen Information:Stool / Per Rectum Updated:12/29/13 1522 Stool culture with yersinia/shiga [[id number]] Collected:12/28/132124 Specimen Information:Stool / Stool Updated:12/29/13 1421 Specimen Description STOOL CULTURE NEGATIVE FOR SHIGA TOXIN TYPE 1 AND 2. CULTURE CULTURE IN PROGRESS REPORT STATUS PENDING Renal function panel [[id number]] (Abnormal) Collected:12/29/13 0830 Specimen Information:Blood Updated:12/29/13 0908 SODIUM 143 mmol/L POTASSIUM 3.4 (L) mmol/L CHLORIDE 117 (H) mmol/L CO2 17 (L) mmol/L ANION GAP AGAP 12 mmol/L GLUCOSE 98 mg/dL BUN 60 (H) mg/dL CREATININE 4.52 (H) mg/dL CALCIUM 8.6 mg/dL Albumin 3.0 (L) g/dL PHOSPHORUS 3.2 mg/dL EGFR 14 (L) mL/min/1.73m2 Ova and parasite examination [[id number]] Collected:12/29/13 0440 Specimen Information:Stool / Stool Updated:12/29/13 0711 C diff toxin by PCR (TAT 3 hr in house) [[id number]] Collected:12/28/132124 Specimen Information:Stool / Stool Updated:12/29/13 0108 Toxigenic C Difficile NEGATIVE 027 NAP1 BI 027 NAP1 BI PRESUMPTIVE NEGATIVE POCT glucose [[id number]] (Abnormal) Collected:12/28/13 2207 GLUCOSE,POC SCREEN 128 (H) mg/dL Updated:12/28/13 2210 Fecal occult blood (in house) [[id number]] Collected:12/28/132124 Specimen Information:Stool / Stool Updated:12/28/13 215 Fecal Occult Blood NEGATIVE Basic metabolic panel [[id number]] (Abnormal) Collected:12/28/13 0436 Specimen Information:Blood Updated:12/28/13 0606 SODIUM 135 mmol/L POTASSIUM 3.8 mmol/L CHLORIDE 112 (H) mmol/L CO2 15 (L) mmol/L ANION GAP AGAP 12 mmol/L GLUCOSE 144 (H) mg/dL BUN 69 (H) mg/dL CREATININE 5.10 (H) mg/dL BUN/CREAT 14 CALCIUM 9.0 mg/dL EGFR 12 (L) mL/min/1.73m2 Magnesium [[id number]] Collected:12/28/13 0436 Specimen Information:Blood Updated:12/28/13 0606 MAGNESIUM 1.9 mg/dL Phosphorus [[id number]] (Abnormal) Collected:12/28/13435 Specimen Information:Blood Updated:12/28/13 0606 PHOSPHORUS 4.9 (H) mg/dL CBC w/auto diff (reflex to manual) [[id number]] (Abnormal) Collected:12/28/13435 Specimen Information:Blood Updated:12/28/13 0604 WBC 8.5 K/uL RBC 2.73 (L) M/uL HGB 8.5 (L) g/dL HCT 25.7 (L) % MCV 94.1 fl MCH 31.2 pg MCHC 33.2 g/dL RDW SD 50.8 fl PLT 193 K/uL POCT glucose [[id number]] (Abnormal) Collected:12/28/13 0557 GLUCOSE,POC SCREEN 184 (H) mg/dL Updated:12/28/13 0559 Urine microscopic only [[id number]] Collected:12/28/13 0218 WBC 0-2 /hpf Updated:12/28/13 0421 RBC 1-5 /hpf EPITHELIAL 11-15 /lpf BACTERIA NONE SEEN Hyaline Cast 0-2 Urinalysis (reflex to micro) [[id number]] (Abnormal) Collected:12/28/13 0218 Specimen Information:Urine / Urine, Clean Catch Updated:12/28/13 0419 COLOR UA YELLOW CLARITY CLEAR Specific [place], UA 1.016 LEUKOCYTE ESTERASE NEGATIVE NITRITE NEGATIVE UROBILINOGEN 0.2 mg/dL PROTEIN 100 (A) mg/dL PH,URINE 5.5 BLOOD NEGATIVE KETONES NEGATIVE mg/dL BILIRUBIN NEGATIVE GLUCOSE 500 (A) mg/dL Complete Metabolic Panel [[id number]] (Abnormal) Collected:12/27/13 1650 Specimen Information:Blood Updated:12/27/13 1727 SODIUM 137 mmol/L POTASSIUM 3.9 mmol/L CHLORIDE 108 mmol/L CO2 17 (L) mmol/L ANION GAP AGAP 17 mmol/L GLUCOSE 232 (H) mg/dL BUN 73 (H) mg/dL CREATININE 5.71 (H) mg/dL BUN/CREAT 13 CALCIUM 9.1 mg/dL TOTAL PROTEIN 7.3 g/dL Albumin 3.5 g/dL GLOBULIN 3.8 g/dL A/G 0.9 (L) TBIL 0.3 mg/dL ALK PHOS 17 (L) U/L AST 18 U/L ALT 14 U/L EGFR 11 (L) mL/min/1.73m2 Phosphorus [[id number]] Collected:12/27/131649 Specimen Information:Blood Updated:12/27/13 1727 PHOSPHORUS 4.6 mg/dL Magnesium [[id number]] Collected:12/27/131649 Specimen Information:Blood Updated:12/27/13 1727 MAGNESIUM 2.1 mg/dL CBC w Auto Diff [[id number]] (Abnormal) Collected:12/27/131649 Specimen Information:Blood Updated:12/27/13 1713 WBC 7.5 K/uL RBC 2.63 (L) M/uL HGB 8.1 (L) g/dL HCT 24.1 (L) % MCV 91.5 fl MCH 30.8 pg MCHC 33.6 g/dL RDW SD 50.8 fl PLT 198 K/uL Medical Record Review: done Radiology Review: Done CT scan of the abdomen and pelvis with p.o. contrast only was done earlier today and it showed extensive colonic diverticulosis and rectum into the distal end of the descending colon appeared thickened. The descending colon, transverse colon, and asc ending colon appeared unremarkable. The stomach is also filled with ingested contents but co uld not be evaluated otherwise. There were some small gallstones without ductal dilations. Patient Active Problem List Diagnosis CKD (chronic kidney disease), stage V Diabetes mellitus HTN (hypertension) Diabetic retinopathy Diabetic nephropathy Stroke Dyslipidemia Obesity Proteinuria Edema of lower extremity Vitamin D deficiency Iron deficiency Anemia of chronic renal failure Elevated ferritin level ARF (acute renal failure) Diarrhea Loss of appetite Loss of weight ASSESSMENT & PLAN This is a 68-year-old man with hypertension, diabetes mellitus, chronic kidney disease, sta ge V, loss of appetite for more than 6 months and he lost over 40 pounds of weight, presumab ly due to poor oral intake. He started having some diarrhea off and on for the last 2 to 3 m onths or so. Colonoscopy examination done over 5 weeks ago for "occult blood positive and an emia" was unremarkable other than diverticular disease. In terms of anorexia, this is probab ly associated with ongoing chronic kidney disease, but he could also have a silent peptic ul cer disease or gastropathy. Diarrhea-yeung, he does have obvious distal colonic wall thickeni ng, 3 positive WBC, but Hemoccult has been negative, indicating we are possibly dealing with Clostridium difficile toxin related colonic wall thickening or possibly we are dealing with microscopic colitis. Small possibility of under-distended distal colon causing thickening o f the colonic wall is there. Stool examination has been so far unremarkable other than WBCs and Clostridium difficile toxin has been negative. Stool cultures, ova and parasites and the rest of the virus checkup is pending, but clinically does not appear to have any virus-rela doyle diarrhea. Discussed with the patient along with the family regarding empiric treatment w ith vancomycin for Clostridium difficile colitis, although the toxin test has been negative, and very seldom can be negative and there is no clinical suspicion for that. Also, discusse d about the use of mesalamine to treat unknown colitis, which may be more related to microsc opic colitis. If this fails to treat his diarrhea, and he continues to have anorexia, he paul l probably need upper endoscopic examination and further evaluation toward celiac disease. I am not sure if he had thyroid function study done or not and it would not be a bad idea to check a chest x-ray in the morning. Repeating stool for Clostridium difficile toxin seems to be important at this time. Code Status: Full Code Primary Care Physician: STAR HARRIS Thank you for allowing me to participate in the care of this patient. JAMES VERDUZCO MD 12/29/2013 koum, Sweta Hollis MD - 8:34 AM PDT Consults by Sweta Hughes MD at 12/28/13 8175 Author: Sweta Hughes MD Service: Nephrology Author Type: Physician Filed: 12/29/13 2203 Date of Service: 12/28/13 5473 Status: Signed Car Pick Up Driver: Sweta Hughes MD (Physician) I was asked by the ED team to see Mr. Vital in consult today. As the admitting/consultin g team is familiar with his case, I will not state his past history in detail. Briefly, he i s a 68 y.o. male patient with history as delineated in the Past Medical & Surgical History s ections. He was admitted with LAKESHIA. I was called in to evaluate him for LAKESHIA (acute kidney inj ury, acute renal failure). See my clinic notes for further details. History & ROS obtained from : patient, chart review. He denies any history of prolonged exp osure to NSAIDs or recent exposure to nephrotoxins. No recent IV dye exposure. He denies any recurrent nephrolithiasis or pyelonephritis. He also denies any history of urinary retentio n, gross hematuria, dysuria, or foamy urine. There is no family history of renal genetic dis eases such as PKD. His baseline Creatinine is ~4. He says that he feels 'fair ' today. No history of blurred vision tinnitus, headache, feve r, chills, or cough. No nausea, vomiting, abdominal pain, diarrhea, melena, or hematochezia . No chest pain, palpitation, dizziness, loss of consciousness, orthopnea, paroxysmal noctu rnal dyspnea, or leg edema. No dysuria, incontinence, or symptoms of UTI. For male patien ts: no history of frequency, nocturia, weak urinary stream, hesitancy, intermittence, incomp lete emptying or urgency. He had 2 or 3 nightly nocturia. The following portions of the patient's history were reviewed and updated as appropriate: a llergies, current medications, past medical history, past social history, past surgical hist ory, family history and problem list. I also reviewed with his preadmission records; these w ere very informative. ROS: As in History of Present Illness above & Assessment below. All the twelve systems were reviewed and were otherwise negative. BP 150/70 | Pulse 76 | Temp 98.1 F (36.7 C) (Oral) | Resp 16 | Ht 1.778 m (5' 10") | Wt 85.5 kg (188 lb 7.9 oz) | BMI 27.05 kg/m2 | SpO2 98% General appearance: Pleasant, not in acute distress. Neck: Supple without tracheal deviation or jugular venous distension. Head and ENT: Head is atraumatic. The oropharynx is without erythema or thrush. Eyes: Anicteric. The extraocular muscle movements are normal. Lungs: Clear to auscultation bilaterally. There are no wheezes. Heart: Regular rate and rhythm without any rub, gallop. Unchanged loud systolic murmur. Abdominal exam: Soft and nontender with normal bowel sounds. Musculoskeletal: No costovertebral angle tenderness bilaterally. Extremities: Warm to touch with no leg edema. There is no cyanosis. Skin: There are no rashes, petechiae, or ecchymosis. Neurological: Awake, alert, and oriented to time, place, and person. Normal gross motor po wer. There is no asterixis. Psychiatric: The patient s behavior is normal. Judgment and thought content are normal. Lab Results Component Value Date BUN 69* 12/28/2013 CREATININE 5.10* 12/28/2013 EGFR 12* 12/28/2013 NA 135 12/28/2013 K 3.8 12/28/2013 CL 112* 12/28/2013 CO2 15* 12/28/2013 CA 9.0 12/28/2013 PHOS 4.9* 12/28/2013 MG 1.9 12/28/2013 ALB 3.5 12/27/2013 HGB 8.5* 12/28/2013 Assessment: Mr. Vital is a 68 y.o. male patient with stage 3 LAKESHIA (acute kidney injury), that is hemo dynamic in the setting of volume depletion. The most likely pathology here is that of vasomo tor nephropathy, with a background of of diabetic nephropathy +/- hypertensive nephroscleros is/arteriolosclerosis. he reports he is tired often. over the past few weeks, he has been dizzy, having intermitte nt diarrhea, & worsening anorexia. He has been losing wt sharply over the past few weeks. RENAL FUNCTION: Worse than baseline, but stable today BLOOD PRESSURE: ok ELECTROLYTES: abnormal Sodium: ok Potassium: ok Calcium: ok Magnesium: ok Phosphorus: Mildly up Acid/Base: Met acidemia ANEMIA: moderate ALBUMIN: low URINALYSIS: No UTI or hematuria VOLUME STATUS: Depletion is improving I discussed today with Mr. Vital the meaning of his LAKESHIA and the interaction of that with his hemodynamics. Recommendations: 1. keep IVF NS as ordered. 2. No immediate indication for KRT at this time. 3. get renal U/S (done). 4. Send U/A (done). 5. Stool studies as ordered 6. Add venous pH 7. Procrit 10K subcut x1 8. Because of severely high Ferritin, No IV Fe planned 9. Strict I/O & daily weights 10. 11. Dose all of his meds to his current estimated GFR. 12. Continue to avoid all kinds of nephrotoxins. 13. Target euvolumia with a MAP>75 mmHg as possible. 14. Given his tendency for anasarca: Encourage PO intake & close dietitian F/U. Encourage a mbulation safely. Encourage the adequate use of an incentive spirometer. I discussed with the primary team the case at the time of this encounter. I spent 70 minutes today in reviewing & updating the patient's chart, in addition to patien t education and discussions with the primary/consulting team. Thank you Dr Peraaz for the opportunity to see this patient in consult today. Please do not hesitate to call me at any time with questions or concerns. SWETA HUGHES MD documented in thi s encounter ED Notes Star Peraza DO - 12/27/2013 3:58 PM PDT ED Provider Notes by Star Peraza DO at 12/27/13 0563 Author: Star Peraza DO Service: (none) Author Type: Physician Filed: 12/27/13 0632 Date of Service: 12/27/13 3300 Status: Signed Car Pick Up Driver: Star Peraza DO (Physician) [facility] Department of Emergency Medicine Provider Name: nabil Pertinent History and Concerns: Drop in renal function, diarrhea on and off. Having falling , BP in 80's. on way here, BP improved in the clinic. gfr 9, renal will consult later today , may call him if needed (12/27/13 1205 : JOJO HERRMANN) 3:58 PM History of Present Illness Patient Identification Brianna Vital is a 68 y.o. male. Patient information was obtained from patient and spouse/partner. History/Exam limitations: none. Patient presented to the Emergency Department by: Car Chief Complaint Chief Complaint Patient presents with Referral by Nabil The patient is a 68 year old male referred to ED for evaluation of decrease renal insuffici ency. Per pt and spouse, he has been having n/v/d and falls in the last week. Pt had labs do ne one week ago, and today at Dr. Hughes's office (infusion pharmacist), labs showed a BUN/creatine of 68/5.97 and EGFR 9. Onset- one week Duration- intermittent Severity/Character- Moderate severity. Pt has no complaints of pain, rather he generally do es not feel well. Worse with- nothing. Normal urinary output. Denies muscle spasms or cramping. PCP: STAR HARRIS Past Medical History Diagnosis Date Hypertension Hyperlipidemia Diabetes mellitus, type 2 TIA (transient ischemic attack) 2010 Heart murmur History reviewed. No pertinent past surgical history. Prior to Admission medications Medication Sig Start Date End Date Taking? Authorizing Provider amlodipine (NORVASC) 10 MG tablet Take 10 mg by mouth daily. Yes Historical Provider Ascorbic Acid (VITAMIN C) 500 MG tablet Take 250 mg by mouth 2 (two) times daily. Yes His torical Provider aspirin 81 MG tablet Take 81 mg by mouth daily. Yes Historical Provider atorvastatin (LIPITOR) 40 MG tablet Take 40 mg by mouth nightly. Yes Historical Provider carvedilol (COREG) 25 MG tablet Take 25 mg by mouth 2 (two) times daily with meals. 06/28/13 Yes Sweta Hughes MD Cholecalciferol (VITAMIN D PO) Take 5,000 Int'l Units by mouth once a week. Yes Historica l Provider clopidogrel (PLAVIX) 75 MG tablet Take 75 mg by mouth daily. Yes Historical Provider fenofibrate (TRIGLIDE) 160 MG tablet Take 48 mg by mouth daily. Yes Historical Provider ferrous gluconate (FERGON) 325 MG tablet Take 5 mg by mouth 2 (two) times daily. Yes Hist orical Provider lisinopril (PRINIVIL,ZESTRIL) 40 MG tablet Take 40 mg by mouth 2 (two) times daily. 03/04/12 Yes Sweta Hughes MD niacin 500 MG tablet Take 500 mg by mouth 2 (two) times daily. Yes Historical Provider sitagliptan (JANUVIA) 100 MG tablet Take 50 mg by mouth daily. 06/10 tab Yes Historical Pro vider terazosin (HYTRIN) 2 MG capsule Take 2 mg by mouth nightly. Take two capsules daily Yes H istorical Provider epoetin lakeisha (PROCRIT) 11880 UNIT/ML injection Inject 1 mL into the skin every 14 (fourteen ) days. 12/27/13 Sweta Hughes MD furosemide (LASIX) 20 MG tablet Take 20 mg by mouth daily. Historical Provider glucose blood test strip 1 each by Other route as needed. Use as instructed Historical P rovider insulin lispro protamine-insulin lispro (HUMALOG 75/25) (75-25) 100 UNIT/ML injection Injec t into the skin 2 (two) times daily before meals. Sliding scale: 20-35 units "it varies" Historical Provider cloNIDine (CATAPRES) 0.1 MG tablet Take 0.1 mg by mouth. Take two tablets in the AM and fou r tablets in the PM. 12/27/13 Historical Provider Allergies Allergen Reactions Penicillins Other (See Comments) History Social History Marital Status: Spouse Name: N/A Number of Children: N/A Years of Education: N/A Occupational History Not on file. Social History Main Topics Smoking status: Never Smoker Smokeless tobacco: Not on file Alcohol Use: No Drug Use: No Sexually Active: Not on file Other Topics Concern Not on file Social History Narrative No narrative on file History reviewed. No pertinent family history. Review of Systems Constitutional: Negative for fever, chills Positive for malaise Eyes: Negative for vision changes Nose: Negative for congestion, nosebleeds Throat: Negative for sore throat CV/Resp: Negative for chest pain, [id number], cough GI: Negative for abdominal pain Positive for nausea, vomiting, or diarrhea : Negative for urinary problems Musculoskeletal: Negative for back pain, joint pain Skin: Negative for rash Neuro/Psych: Negative for headache Endo/heme/Lymph: Negative for swollen lymph nodes, easy bruising All other systems reviewed and negative except as noted. Physical Exam BP 109/72 | Pulse 85 | Temp 99.1 F (37.3 C) (Temporal) | Resp 18 | Wt 85.5 kg (188 lb 7 .9 oz) | SpO2 98% Vital signs interpretation: WNL Pulse Oximetry interpretation: Normal General: Alert, in no apparent distress Eyes: Normal inspection, pupils equal and round, non-icteric ENT: Ears normal Nose normal Pharynx normal Neck: Normal inspection Supple Cardiovascular: Rate and rhythm normal No murmurs Respiratory: Breath sounds normal bilaterally No rales, wheezing or rhonchi Abdomen: Soft, non-tender, non-distended No guarding or rebound Back: Normal inspection Skin: Color normal Warm and dry No rash Neuro: Alert, no AMS No gross motor/sensory deficits Medical Decision Making and Emergency Department Course ED Department Course Reviewed pre-arrival documentation, indicates pt had BP in the 80s at Dr. Hughes's office. 5:50PM- Spoke with hospitalist and she will admit the patient but wants Dr. Hughes's recomme ndations 5:55 PM- Spoke with Dr. Hughes and he recommends getting renal US, 500ml NS bolus over 120 m inutes then NS MIVF at 100ml/hr. The patient was evaluated in the emergency department through taking thorough history of pr esent illness, past medical history including medical conditions, current medications, aller gies to medications, social history, and family history. A physical exam was performed. T hrough incorporating the history of present illness and physical exam findings, clinical samanta gment was used to determine if any diagnostic tests or imaging was necessary. Once the work up was complete, appropriate consults were obtained as above and the patient was admitted to the hospital for further treatment and diagnosis. Filed Vitals: 12/27/13 1500 BP: 109/72 Pulse: 85 Temp: 99.1 F (37.3 C) TempSrc: Temporal Resp: 18 Weight: 85.5 kg (188 lb 7.9 oz) SpO2: 98% Records Reviewed Old medical records. Nursing notes. Medication Given none Laboratory Evaluation Results Procedure Component Value Ref Range Date/Time Complete Metabolic Panel [[id number]] (Abnormal) Collected:12/27/13 1650 Order Status:Completed Updated:12/27/13 1727 Specimen Information:Blood SODIUM 137 135 - 143 mmol/L POTASSIUM 3.9 3.5 - 4.9 mmol/L CHLORIDE 108 99 - 109 mmol/L CO2 17 (L) 23 - 32 mmol/L ANION GAP AGAP 17 5 - 20 mmol/L GLUCOSE 232 (H) 65 - 99 mg/dL BUN 73 (H) 8 - 25 mg/dL CREATININE 5.71 (H) 0.70 - 1.30 mg/dL BUN/CREAT 13 CALCIUM 9.1 8.5 - 10.2 mg/dL TOTAL PROTEIN 7.3 6.3 - 8.2 g/dL Albumin 3.5 3.3 - 4.8 g/dL GLOBULIN 3.8 1.3 - 4.9 g/dL A/G 0.9 (L) 1.0 - 2.4 TBIL 0.3 0.1 - 1.5 mg/dL ALK PHOS 17 (L) 35 - 115 U/L AST 18 10 - 45 U/L ALT 14 10 - 65 U/L EGFR 11 (L) >60 mL/min/1.73m2 Phosphorus [[id number]] Collected:12/27/131649 Order Status:Completed Updated:12/27/131726 Specimen Information:Blood PHOSPHORUS 4.6 2.3 - 4.8 mg/dL Magnesium [[id number]] Collected:12/27/131649 Order Status:Completed Updated:12/27/131726 Specimen Information:Blood MAGNESIUM 2.1 1.7 - 2.4 mg/dL CBC w Auto Diff [[id number]] (Abnormal) Collected:12/27/131649 Order Status:Completed Updated:12/27/131712 Specimen Information:Blood WBC 7.5 3.8 - 11.0 K/uL RBC 2.63 (L) 4.20 - 5.70 M/uL HGB 8.1 (L) 13.2 - 17.0 g/dL HCT 24.1 (L) 39.0 - 50.0 % MCV 91.5 80.0 - 100.0 fl MCH 30.8 27.0 - 34.0 pg MCHC 33.6 32.0 - 35.5 g/dL RDW SD 50.8 37 - 53 fl PLT 198 150 - 400 K/uL MPV 7.4 fl DIFF TYPE AUTOMATED NEUTROPHILS 72.7 % LYMPHOCYTES 16.3 % MONOCYTES 8.7 % EOSINOPHILS 1.7 % BASOPHILS 0.6 % NEUTROPHILS ABS 5.5 1.9 - 7.4 K/uL LYMPHOCYTES ABS 1.2 1.0 - 3.9 K/uL MONOCYTES ABS 0.7 0 - 0.8 K/uL EOSINOPHILS ABS 0.1 0 - 0.5 K/uL BASOPHILS ABS 0.0 0 - 0.1 K/uL I personally reviewed the lab results and they have been posted to the chart. Pertinent po sitive and negative findings have been addressed appropriately. Radiology and EKG Evaluation Imaging Results XR Chest PA and Lateral (Final result) Result time:12/27/131716 Final result by Rad Results In [place] (12/27/13 17:17:59) Impression: 1. No evident acute infiltrate, failure or active cardiopulmonary disease to explain sympto ms 2. Degenerative changes and midthoracic compression fracture, without retropulsion. Unknown chronicity. Narrative: History: 68 year-old male with unexplained nausea. Technique: Frontal and lateral radiographic examination of the chest. No prior study for co mparison. Findings: Cardiomediastinum is normal. Lungs are symmetrically inflated without pneumothorax, infiltrate, or effusion. Bones reveal midthoracic compression, unknown chronicity. No baseline study for comparison. There is also multilevel disc endplate disease and some calcification of the intra-longitud inal ligament EKG 1631 Rate- 61 Rhythm- sinus Intervals- normal QTc- normal [place]- normal No QRS widening. ED Diagnoses Final diagnoses Acute renal failure Nausea Disposition: ED Disposition Admit/Observation Bed request special needs: None Diagnosis?: Renal Failure Additional Documentation Procedures Attending Note: Documentation assistance provided by Ema Galvan (Scribe). Information recorded by the scribe has been reviewed and validated by me. Magi villalpando with its contents. DO Star Field DO 12/27/13 2968 documente d in this encounter Plan of Treatment Not on filedocumented as of this encounter Procedures + +--------+ + + + | Procedure Name | Priori | Date/Time | Associated Diagnosis | Comments | | | ty | | | | + +--------+ + + + | POC GLUCOSE | Routin | 01/01/2014 | | Results for this | | | e | 11:06 AM | | procedure are in the | | | | PDT | | results section. | + +--------+ + + + | POC GLUCOSE | Routin | 01/01/2014 | | Results for this | | | e | 5:30 AM | | procedure are in the | | | | PDT | | results section. | + +--------+ + + + | RENAL FUNCTION PANEL | Routin | 01/01/2014 | | Results for this | | | e | 3:49 AM | | procedure are in the | | | | PDT | | results section. | + +--------+ + + + | POC GLUCOSE | Routin | 12/31/2013 | | Results for this | | | e | 9:53 PM | | procedure are in the | | | | PDT | | results section. | + +--------+ + + + | POC GLUCOSE | Routin | 12/31/2013 | | Results for this | | | e | 4:24 PM | | procedure are in the | | | | PDT | | results section. | + +--------+ + + + | POC GLUCOSE | Routin | 12/31/2013 | | Results for this | | | e | 12:12 PM | | procedure are in the | | | | PDT | | results section. | + +--------+ + + + | POC GLUCOSE | Routin | 12/31/2013 | | Results for this | | | e | 6:06 AM | | procedure are in the | | | | PDT | | results section. | + +--------+ + + + | EXTERNAL LAB: CBC | Routin | 12/31/2013 | | Results for this | | | e | 4:23 AM | | procedure are in the | | | | PDT | | results section. | + +--------+ + + + | RENAL FUNCTION PANEL | Routin | 12/31/2013 | | Results for this | | | e | 4:23 AM | | procedure are in the | | | | PDT | | results section. | + +--------+ + + + | POC GLUCOSE | Routin | 12/30/2013 | | Results for this | | | e | 9:46 PM | | procedure are in the | | | | PDT | | results section. | + +--------+ + + + | POC GLUCOSE | Routin | 12/30/2013 | | Results for this | | | e | 5:22 PM | | procedure are in the | | | | PDT | | results section. | + +--------+ + + + | HISTORICAL | Timed | 12/30/2013 | | Results for this | | MICROBIOLOGY RESULT | | 8:58 AM | | procedure are in the | | | | PDT | | results section. | + +--------+ + + + | EXTERNAL LAB: CBC | Routin | 12/30/2013 | | Results for this | | | e | 4:47 AM | | procedure are in the | | | | PDT | | results section. | + +--------+ + + + | TSH | Routin | 12/30/2013 | | Results for this | | | e | 4:47 AM | | procedure are in the | | | | PDT | | results section. | + +--------+ + + + | MAGNESIUM | Routin | 12/30/2013 | | Results for this | | | e | 4:47 AM | | procedure are in the | | | | PDT | | results section. | + +--------+ + + + | RENAL FUNCTION PANEL | Routin | 12/30/2013 | | Results for this | | | e | 4:47 AM | | procedure are in the | | | | PDT | | results section. | + +--------+ + + + | CT ABDOMEN PELVIS WO | Routin | 12/29/2013 | | Results for this | | CONTRAST | e | 3:23 PM | | procedure are in the | | | | PDT | | results section. | + +--------+ + + + | NOROVIRUS 1 AND 2, | Timed | 12/29/2013 | | Results for this | | NAAT | | 3:16 PM | | procedure are in the | | | | PDT | | results section. | + +--------+ + + + | ROTAVIRUS ANTIGEN, | Timed | 12/29/2013 | | Results for this | | STOOL | | 3:16 PM | | procedure are in the | | | | PDT | | results section. | + +--------+ + + + | RENAL FUNCTION PANEL | Routin | 12/29/2013 | | Results for this | | | e | 8:30 AM | | procedure are in the | | | | PDT | | results section. | + +--------+ + + + | POC GLUCOSE | Routin | 12/29/2013 | | Results for this | | | e | 6:06 AM | | procedure are in the | | | | PDT | | results section. | + +--------+ + + + | OVA AND PARASITE | Timed | 12/29/2013 | | Results for this | | EXAMINATION | | 4:40 AM | | procedure are in the | | | | PDT | | results section. | + +--------+ + + + | POC GLUCOSE | Routin | 12/28/2013 | | Results for this | | | e | 10:07 PM | | procedure are in the | | | | PDT | | results section. | + +--------+ + + + | HISTORICAL | Timed | 12/28/2013 | | Results for this | | MICROBIOLOGY RESULT | | 9:25 PM | | procedure are in the | | | | PDT | | results section. | + +--------+ + + + | EXTERNAL LAB: OCCULT | Routin | 12/28/2013 | | Results for this | | BLOOD, SCREENING | e | 9:25 PM | | procedure are in the | | | | PDT | | results section. | + +--------+ + + + | CULTURE, YERSINIA | Timed | 12/28/2013 | | Results for this | | STOOL | | 9:25 PM | | procedure are in the | | | | PDT | | results section. | + +--------+ + + + | FECAL LEUKOCYTES | Timed | 12/28/2013 | | Results for this | | | | 9:25 PM | | procedure are in the | | | | PDT | | results section. | + +--------+ + + + | POC GLUCOSE | Routin | 12/28/2013 | | Results for this | | | e | 4:07 PM | | procedure are in the | | | | PDT | | results section. | + +--------+ + + + | POC GLUCOSE | Routin | 12/28/2013 | | Results for this | | | e | 11:41 AM | | procedure are in the | | | | PDT | | results section. | + +--------+ + + + | PH, VENOUS | Routin | 12/28/2013 | | Results for this | | | e | 8:46 AM | | procedure are in the | | | | PDT | | results section. | + +--------+ + + + | POC GLUCOSE | Routin | 12/28/2013 | | Results for this | | | e | 5:57 AM | | procedure are in the | | | | PDT | | results section. | + +--------+ + + + | EXTERNAL LAB: CBC | Routin | 12/28/2013 | | Results for this | | | e | 4:36 AM | | procedure are in the | | | | PDT | | results section. | + +--------+ + + + | PHOSPHORUS | Routin | 12/28/2013 | | Results for this | | | e | 4:36 AM | | procedure are in the | | | | PDT | | results section. | + +--------+ + + + | MAGNESIUM | Routin | 12/28/2013 | | Results for this | | | e | 4:36 AM | | procedure are in the | | | | PDT | | results section. | + +--------+ + + + | BASIC METABOLIC | Routin | 12/28/2013 | | Results for this | | PANEL | e | 4:36 AM | | procedure are in the | | | | PDT | | results section. | + +--------+ + + + | URINALYSIS WITH | Routin | 12/28/2013 | | Results for this | | MICROSCOPIC IF | e | 2:18 AM | | procedure are in the | | INDICATED | | PDT | | results section. | + +--------+ + + + | URINALYSIS, | Routin | 12/28/2013 | | Results for this | | MICROSCOPIC ONLY | e | 2:18 AM | | procedure are in the | | | | PDT | | results section. | + +--------+ + + + | US RENAL LIMITED | Routin | 12/27/2013 | | Results for this | | | e | 7:02 PM | | procedure are in the | | | | PDT | | results section. | + +--------+ + + + | EXTERNAL LAB: [facility] | Routin | 12/27/2013 | | Results for this | | | e | 4:50 PM | | procedure are in the | | | | PDT | | results section. | + +--------+ + + + | PHOSPHORUS | Routin | 12/27/2013 | | Results for this | | | e | 4:50 PM | | procedure are in the | | | | PDT | | results section. | + +--------+ + + + | MAGNESIUM | Routin | 12/27/2013 | | Results for this | | | e | 4:50 PM | | procedure are in the | | | | PDT | | results section. | + +--------+ + + + | COMPREHENSIVE | Routin | 12/27/2013 | | Results for this | | METABOLIC PANEL | e | 4:50 PM | | procedure are in the | | | | PDT | | results section. | + +--------+ + + + | XR CHEST 2 VIEWS | Routin | 12/27/2013 | | Results for this | | | e | 4:29 PM | | procedure are in the | | | | PDT | | results section. | + +--------+ + + + | ECG 12 LEAD | Routin | 12/27/2013 | | Results for this | | | e | 4:13 PM | | procedure are in the | | | | PDT | | results section. | + +--------+ + + + documented in this encounter Results POC Glucose (01/01/2014 11:06 AM PDT) + + + + + + | Component | Value | Ref Range | Performed | Pathologist | | | | | At | Signature | + + + + + + | Glucose, | 187 (H)Comment: Testing | 65 - 99 mg/dL | EXTERNAL | | | Fingerstick | performed at [facility];[address] | | LAB | | | [address];[place], [place] | | | | | | [address] | | | | + + + + + + + + | Specimen | + + | | + + + +---------+ + + | Performing | Address | City/State/Zipcode | Phone Number | | Organization | | | | + +---------+ + + | EXTERNAL LAB | | | | + +---------+ + + POC Glucose (01/01/2014 5:30 AM PDT) + + + + + + | Component | Value | Ref Range | Performed | Pathologist | | | | | At | Signature | + + + + + + | Glucose, | 130 (H)Comment: Testing | 65 - 99 mg/dL | EXTERNAL | | | Fingerstick | performed at [facility];[address] | | LAB | | | | [address];[place] | | | | | | [address] | | | | + + + + + + + + | Specimen | + + | | + + + +---------+ + + | Performing | Address | City/State/Zipcode | Phone Number | | Organization | | | | + +---------+ + + | EXTERNAL LAB | | | | + +---------+ + + Renal Function Panel (01/01/2014 3:49 AM PDT) + + + + + + | Component | Value | Ref Range | Performed | Pathologist | | | | | At | Signature | + + + + + + | Na | 138Comment: Testing | 135 - 143 | EXTERNAL | | | | performed at [facility], [address] | mmol/L | LAB | | | | [address], | | | | | | [place] [address] | | | | + + + + + + | K | 3.8Comment: Testing | 3.5 - 4.9 | EXTERNAL | | | | performed at [facility], [address] | mmol/L | LAB | | | | [address], | | | | | | [place] [address] | | | | + + + + + + | Cl | 114 (H)Comment: Testing | 99 - 109 mmol/L | EXTERNAL | | | | performed at [facility], [address] | | LAB | | | | [address], | | | | | | [place] [address] | | | | + + + + + + | CO2 | 17 (L)Comment: Testing | 23 - 32 mmol/L | EXTERNAL | | | | performed at [facility], [address] | | LAB | | | | [address], | | | | | | [place], [place] [address] | | | | + + + + + + | Anion Gap | 11Comment: Testing | 5 - 20 mmol/L | EXTERNAL | | | | performed at [facility], [address] | | LAB | | | | [address], | | | | | | [place], [place] [address] | | | | + + + + + + | Glucose, | 134 (H)Comment: Testing | 65 - 99 mg/dL | EXTERNAL | | | Fasting | performed at [facility], [address] | | LAB | | | | [address], | | | | | | [place] [address] | | | | + + + + + + | BUN | 36 (H)Comment: Testing | 8 - 25 mg/dL | EXTERNAL | | | | performed at [facility], [address] | | LAB | | | | [address], | | | | | | [place] [address] | | | | + + + + + + | Creatinine | 3.63 (H)Comment: Testing | 0.70 - 1.30 | EXTERNAL | | | | performed at [facility], [address] | mg/dL | LAB | | | | [address], | | | | | | [place] [address] | | | | + + + + + + | Calcium | 8.6Comment: Testing | 8.5 - 10.2 | EXTERNAL | | | | performed at [facility], [address] | mg/dL | LAB | | | | [address], | | | | | | [place] [address] | | | | + + + + + + | Albumin | 3.1 (L)Comment: Testing | 3.3 - 4.8 g/dL | EXTERNAL | | | | performed at [facility], [address] | | LAB | | | | [address], | | | | | | [place] [address] | | | | + + + + + + | PHOSPHORUS | 2.8Comment: Testing | 2.3 - 4.8 mg/dL | EXTERNAL | | | | performed at [facility], [address] | | LAB | | | | [facility], | | | | | | [place] [address] | | | | + + + + + + | Estimated | 18 (L)Comment: GFR <60: | mL/min/1.73m2 | EXTERNAL [...] | | | | | | at [facility], [address] | | | | | | [facility], | | | | | | [place] [address] | | | | + + + + + + + + | Specimen | + + | Blood specimen | | (specimen) | + + + +---------+ + + | Performing | Address | City/State/Zipcode | Phone Number | | Organization | | | | + +---------+ + + | EXTERNAL LAB | | | | + +---------+ + + POC Glucose (12/31/2013 9:53 PM PDT) + + + + + + | Component | Value | Ref Range | Performed | Pathologist | | | | | At | Signature | + + + + + + | Glucose, | 229 (H)Comment: Testing | 65 - 99 mg/dL | EXTERNAL | | | Fingerstick | performed at [facility];[address] | | LAB | | | | [address];[place] | | | | | | [address] | | | | + + + + + + + + | Specimen | + + | | + + + +---------+ + + | Performing | Address | City/State/Zipcode | Phone Number | | Organization | | | | + +---------+ + + | EXTERNAL LAB | | | | + +---------+ + + POC Glucose (12/31/2013 4:24 PM PDT) + + + + + + | Component | Value | Ref Range | Performed | Pathologist | | | | | At | Signature | + + + + + + | Glucose, | 204 (H)Comment: Testing | 65 - 99 mg/dL | EXTERNAL | | | Fingerstick | performed at [facility];[address] | | LAB | | | | [address];[place], [place] | | | | | | [address] | | | | + + + + + + + + | Specimen | + + | | + + + +---------+ + + | Performing | Address | City/State/Zipcode | Phone Number | | Organization | | | | + +---------+ + + | EXTERNAL LAB | | | | + +---------+ + + POC Glucose (12/31/2013 12:12 PM PDT) + + + + + + | Component | Value | Ref Range | Performed | Pathologist | | | | | At | Signature | + + + + + + | Glucose, | 195 (H)Comment: Testing | 65 - 99 mg/dL | EXTERNAL | | | Fingerstick | performed at [facility];[address] | | LAB | | | | [address];[place], [place] | | | | | | [address] | | | | + + + + + + + + | Specimen | + + | | + + + +---------+ + + | Performing | Address | City/State/Zipcode | Phone Number | | Organization | | | | + +---------+ + + | EXTERNAL LAB | | | | + +---------+ + + POC Glucose (12/31/2013 6:06 AM PDT) + + + + + + | Component | Value | Ref Range | Performed | Pathologist | | | | | At | Signature | + + + + + + | Glucose, | 78Comment: Testing | 65 - 99 mg/dL | EXTERNAL | | | Fingerstick | performed at [facility];[address] | | LAB | | | | [address];[place], [place] | | | | | | [address] | | | | + + + + + + + + | Specimen | + + | | + + + +---------+ + + | Performing | Address | City/State/Zipcode | Phone Number | | Organization | | | | + +---------+ + + | EXTERNAL LAB | | | | + +---------+ + + External Lab: CBC (12/31/2013 4:23 AM PDT) + + + + + + | Component | Value | Ref Range | Performed | Pathologist | | | | | At | Signature | + + + + + + | WBC | 9.2Comment: Testing | 3.8 - 11.0 K/uL | EXTERNAL | | | | performed at [facility], [address] | | LAB | | | | [address], | | | | | | [place] [address] | | | | + + + + + + | Non- | 2.67 (L)Comment: Testing | 4.20 - 5.70 | EXTERNAL | | | Red Blood | performed at [facility], [address] | [address]/uL | LAB | | | Cells | [address], | | | | | Counted | [place] [address] | | | | + + + + + + | Hemoglobin | 8.3 (L)Comment: Testing | 13.2 - 17.0 | EXTERNAL | | | | performed at [facility], [address] | g/dL | LAB | | | | [address], | | | | | | [place] [address] | | | | + + + + + + | Hematocrit, | 24.9 (L)Comment: Testing | 39.0 - 50.0 % | EXTERNAL | | | POC | performed at [facility], [address] | | LAB | | | | [address], | | | | | | [place] [address] | | | | + + + + + + | MCV | 93.4Comment: Testing | 80.0 - 100.0 fl | EXTERNAL | | | | performed at [facility], [address] | | LAB | | | | [address], | | | | | | [place] [address] | | | | + + + + + + | MCH | 31.2Comment: Testing | 27.0 - 34.0 pg | EXTERNAL | | | | performed at [facility], [address] | | LAB | | | | [address], | | | | | | [place] [address] | | | | + + + + + + | MCHC | 33.3Comment: Testing | 32.0 - 35.5 | EXTERNAL | | | | performed at [facility], [address] | g/dL | LAB | | | | [address], | | | | | | [place] [address] | | | | + + + + + + | RDW-CV | 52.5Comment: Testing | 37 - 53 fl | EXTERNAL | | | | performed at [facility], [address] | | LAB | | | | [address], | | | | | | [place] [address] | | | | + + + + + + | Platelet | 186Comment: Testing | 150 - 400 K/uL | EXTERNAL | | | Count | performed at [facility], [address] | | LAB | | | Plasma | [address], | | | | | | [place] [address] | | | | + + + + + + | MPV | 8.0Comment: Testing | fl | EXTERNAL | | | | performed at [facility], [address] | | LAB | | | | [address], | | | | | | [place] [address] | | | | + + + + + + | Differentia | AUTOMATEDComment: | | EXTERNAL | | | l Type | Testing performed at | | LAB | | | | [facility], [address] | | | | | | [place] | | | | | | [address] | | | | + + + + + + | % Segmented | 73.6Comment: Testing | % | EXTERNAL | | | | performed at [facility], [address] | | LAB | | | Neutrophils | [address], | | | | | | [place] [address] | | | | + + + + + + | % | 13.9Comment: Testing | % | EXTERNAL | | | Lymphocytes | performed at [facility], [address] | | LAB | | | | [address], | | | | | | [place] [address] | | | | + + + + + + | % Monocytes | 10.8Comment: Testing | % | EXTERNAL | | | | performed at [facility], [address] | | LAB | | | | [address], | | | | | | [place] [address] | | | | + + + + + + | % | 1.2Comment: Testing | % | EXTERNAL | | | Eosinophils | performed at [facility], [address] | | LAB | | | [address], | | | | | | [place] [address] | | | | + + + + + + | % Basophils | 0.5Comment: Testing | % | EXTERNAL | | | | performed at [facility], [address] | | LAB | | | | [address], | | | | | | [place] [address] | | | | + + + + + + | Absolute | 6.8Comment: Testing | 1.9 - 7.4 K/uL | EXTERNAL | | | Segmented | performed at [facility], [address] | | LAB | | | Neutrophils | [address], | | | | | | [place] [address] | | | | + + + + + + | Absolute | 1.3Comment: Testing | 1.0 - 3.9 K/uL | EXTERNAL | | | Lymphocytes | performed at [facility], [address] | | LAB | | | [address], | | | | | | [place] [address] | | | | + + + + + + | Absolute | 1.0 (H)Comment: Testing | 0 - 0.8 K/uL | EXTERNAL | | | Monocytes | performed at [facility], [address] | | LAB | | | | [address], | | | | | | [place] [address] | | | | + + + + + + | Absolute | 0.1Comment: Testing | 0 - 0.5 K/uL | EXTERNAL | | | Eosinophils | performed at [facility], [address] | | LAB | | | | [address], | | | | | | [place] [address] | | | | + + + + + + | Absolute | 0.0Comment: Testing | 0 - 0.1 K/uL | EXTERNAL | | | Basophils | performed at [facility], [address] | | LAB | | | | [address], | | | | | | [place] [address] | | | | + + + + + + | RBC | Comment: 1+ | | EXTERNAL | | | Morphology | AnisocytosisTesting | | LAB | | | | performed at [facility], [address] | | | | | | [address], | | | | | | [place] [address] | | | | + + + [...] + +---------+ + + Renal Function Panel (12/31/2013 4:23 AM PDT) + + + + + + | Component | Value | Ref Range | Performed | Pathologist | | | | | At | Signature | + + + + + + | Na | 137Comment: Testing | 135 - 143 | EXTERNAL | | | | performed at [facility], [address] | mmol/L | LAB | | | | [address], | | | | | | [place] [address] | | | | + + + + + + | K | 4.1Comment: Testing | 3.5 - 4.9 | EXTERNAL | | | | performed at [facility], [address] | mmol/L | LAB | | | | [address], | | | | | | [place] [address] | | | | + + + + + + | Cl | 117 (H)Comment: Testing | 99 - 109 mmol/L | EXTERNAL | | | | performed at [facility], [address] | | LAB | | | | [address], | | | | | | [place] [address] | | | | + + + + + + | CO2 | 13 (LL)Comment: RESULT | 23 - 32 mmol/L | EXTERNAL | | | | READ BACK BY: CALLED TO | | LAB | | | | ARTIS AMES,12/31/2013,0 | | | | | | 612,ATTesting performed | | | | | | at [facility], [address] | | | | | | [address], | | | | | | [place] [address] | | | | + + + + + + | Anion Gap | 11Comment: Testing | 5 - 20 mmol/L | EXTERNAL | | | | performed at [facility], [address] | | LAB | | | | [address], | | | | | | [place] [address] | | | | + + + + + + | Glucose, | 76Comment: Testing | 65 - 99 mg/dL | EXTERNAL | | | Fasting | performed at [facility], [address] | | LAB | | | | [address], | | | | | | [place] [address] | | | | + + + + + + | BUN | 42 (H)Comment: Testing | 8 - 25 mg/dL | EXTERNAL | | | | performed at [facility], [address] | | LAB | | | | [address], | | | | | | [place] [address] | | | | + + + + + + | Creatinine | 3.68 (H)Comment: Testing | 0.70 - 1.30 | EXTERNAL | | | | performed at [facility], [address] | mg/dL | LAB | | | | [address], | | | | | | [place] [address] | | | | + + + + + + | Calcium | 8.7Comment: Testing | 8.5 - 10.2 | EXTERNAL | | | | performed at [facility], [address] | mg/dL | LAB | | | | [address], | | | | | | [place] [address] | | | | + + + + + + | Albumin | 3.2 (L)Comment: Testing | 3.3 - 4.8 g/dL | EXTERNAL | | | | performed at [facility], [address] | | LAB | | | | [address], | | | | | | [place] [address] | | | | + + + + + + | PHOSPHORUS | 3.0Comment: Testing | 2.3 - 4.8 mg/dL | EXTERNAL | | | | performed at [facility], [address] | | LAB | | | | [address], | | | | | | [place] [address] | | | | + + + + + + | Estimated | 18 (L)Comment: GFR <60: | mL/min/1.73m2 | EXTERNAL [...] | | | | | | at [facility], [address] | | | | | | [address], | | | | | | [place] [address] | | | | + + + + + + + + | Specimen | + + | | + + + +---------+ + + | Performing | Address | City/State/Zipcode | Phone Number | | Organization | | | | + +---------+ + + | EXTERNAL LAB | | | | + +---------+ + + POC Glucose (12/30/2013 9:46 PM PDT) + + + + + + | Component | Value | Ref Range | Performed | Pathologist | | | | | At | Signature | + + + + + + | Glucose, | 80Comment: Testing | 65 - 99 mg/dL | EXTERNAL | | | Fingerstick | performed at [facility];[address] | | LAB | | | | [address];[place] | | | | | | [address] | | | | + + + + + + + + | Specimen | + + | | + + + +---------+ + + | Performing | Address | City/State/Zipcode | Phone Number | | Organization | | | | + +---------+ + + | EXTERNAL LAB | | | | + +---------+ + + POC Glucose (12/30/2013 5:22 PM PDT) + + + + + + | Component | Value | Ref Range | Performed | Pathologist | | | | | At | Signature | + + + + + + | Glucose, | 171 (H)Comment: Testing | 65 - 99 mg/dL | EXTERNAL | | | Fingerstick | performed at [facility];[address] | | LAB | | | | [address];[place], [place] | | | | | | [address] | | | | + + + + + + + + | Specimen | + + | | + + + +---------+ + + | Performing | Address | City/State/Zipcode | Phone Number | | Organization | | | | + +---------+ + + | EXTERNAL LAB | | | | + +---------+ + + HISTORICAL MICROBIOLOGY RESULT (12/30/2013 8:58 AM PDT) + + | Specimen | + + | Stool specimen | | (specimen) | + + + + + | Narrative | Performed At | + + + | Toxigenic C Difficile NEGATIVE Testing | EXTERNAL LAB | | performed at [facility];[address] [place] [address];[place] [address] 027 NAP1 BI | | | 027 NAP1 BI PRESUMPTIVE NEGATIVE | | | Detection of 027 NAP1 BI strains of C. difficile is presumptive and | | | for epidemiological purposes and not intended to guide or monitor | | | treatment for C. difficile infections. Testing performed at [facility];[address] | | | [address];[place] [address] | | + + + + +---------+ + + | Performing | Address | City/State/Zipcode | Phone Number | | Organization | | | | + +---------+ + + | EXTERNAL LAB | | | | + +---------+ + + External Lab: CBC (12/30/2013 4:47 AM PDT) + + + + + + | Component | Value | Ref Range | Performed | Pathologist | | | | | At | Signature | + + + + + + | WBC | 8.4Comment: Testing | 3.8 - 11.0 K/uL | EXTERNAL | | | | performed at [facility], [address] | | LAB | | | | [address], | | | | | | [place] [address] | | | | + + + + + + | Non- | 2.70 (L)Comment: Testing | 4.20 - 5.70 | EXTERNAL | | | Red Blood | performed at [facility], [address] | M/uL | LAB | | | Cells | [address], | | | | | Counted | [place] [address] | | | | + + + + + + | Hemoglobin | 8.4 (L)Comment: Testing | 13.2 - 17.0 | EXTERNAL | | | | performed at [facility], [address] | g/dL | LAB | | | | [address], | | | | | | [place] [address] | | | | + + + + + + | Hematocrit, | 25.2 (L)Comment: Testing | 39.0 - 50.0 % | EXTERNAL | | | POC | performed at [facility], [address] | | LAB | | | | [address], | | | | | | [place] [address] | | | | + + + + + + | MCV | 93.3Comment: Testing | 80.0 - 100.0 fl | EXTERNAL | | | | performed at [facility], [address] | | LAB | | | | [address], | | | | | | [place] [address] | | | | + + + + + + | MCH | 31.2Comment: Testing | 27.0 - 34.0 pg | EXTERNAL | | | | performed at [facility], [address] | | LAB | | | | [address], | | | | | | [place] [address] | | | | + + + + + + | MCHC | 33.5Comment: Testing | 32.0 - 35.5 | EXTERNAL | | | | performed at [facility], [address] | g/dL | LAB | | | | [address], | | | | | | [place] [address] | | | | + + + + + + | RDW-CV | 50.8Comment: Testing | 37 - 53 fl | EXTERNAL | | | | performed at [facility], [address] | | LAB | | | | [address], | | | | | | [place] [address] | | | | + + + + + + | Platelet | 186Comment: Testing | 150 - 400 K/uL | EXTERNAL | | | Count | performed at [facility], [address] | | LAB | | | Plasma | [address], | | | | | | [place] [address] | | | | + + + + + + | MPV | 7.6Comment: Testing | fl | EXTERNAL | | | | performed at [facility], [address] | | LAB | | | | [address], | | | | | | [place] [address] | | | | + + + + + + | Differentia | AUTOMATEDComment: | | EXTERNAL | | | l Type | Testing performed at | | LAB | | | | [facility], [address] | | | | | | [place] | | | | | | [address] | | | | + + + + + + | % Segmented | 63.8Comment: Testing | % | EXTERNAL | | | | performed at [facility], [address] | | LAB | | | Neutrophils | [address], | | | | | | [place] [address] | | | | + + + + + + | % | 20.3Comment: Testing | % | EXTERNAL | | | Lymphocytes | performed at [facility], [address] | | LAB | | | | [address], | | | | | | [place] [address] | | | | + + + + + + | % Monocytes | 12.3Comment: Testing | % | EXTERNAL | | | | performed at [facility], [address] | | LAB | | | | [address], | | | | | | [place] [address] | | | | + + + + + + | % | 2.8Comment: Testing | % | EXTERNAL | | | Eosinophils | performed at [facility], [address] | | LAB | | | [address], | | | | | | [place] [address] | | | | + + + + + + | % Basophils | 0.8Comment: Testing | % | EXTERNAL | | | | performed at [facility], [address] | | LAB | | | | [address], | | | | | | [place] [address] | | | | + + + + + + | Absolute | 5.3Comment: Testing | 1.9 - 7.4 K/uL | EXTERNAL | | | Segmented | performed at [facility], [address] | | LAB | | | Neutrophils | [address], | | | | | | [place] [address] | | | | + + + + + + | Absolute | 1.7Comment: Testing | 1.0 - 3.9 K/uL | EXTERNAL | | | Lymphocytes | performed at [facility], [address] | | LAB | | | | [address], | | | | | | [place] [address] | | | | + + + + + + | Absolute | 1.0 (H)Comment: Testing | 0 - 0.8 K/uL | EXTERNAL | | | Monocytes | performed at [facility], [address] | | LAB | | | | [address], | | | | | | [place] [address] | | | | + + + + + + | Absolute | 0.2Comment: Testing | 0 - 0.5 K/uL | EXTERNAL | | | Eosinophils | performed at [facility], [address] | | LAB | | | | [address], | | | | | | [place] [address] | | | | + + + + + + | Absolute | 0.1Comment: Testing | 0 - 0.1 K/uL | EXTERNAL | | | Basophils | performed at [facility], [address] | | LAB | | | | [address], | | | | | | [place] [address] | | | | + + + + + + + + | Specimen | + + | | + + + +---------+ + + | Performing | Address | City/State/Zipcode | Phone Number | | Organization | | | | + +---------+ + + | EXTERNAL LAB | | | | + +---------+ + + [facility] (12/30/2013 4:47 AM PDT) + + + + + + | Component | Value | Ref Range | Performed | Pathologist | | | | | At | Signature | + + + + + + | TSH | 0.61Comment: Testing | 0.45 - 5.10 | EXTERNAL | | | | performed at [facility], [address] | uIU/mL | LAB | | | | [address], | | | | | | [place] [address] | | | | + + + + + + + + | Specimen | + + | Blood specimen | | (specimen) | + + + +---------+ + + | Performing | Address | City/State/Zipcode | Phone Number | | Organization | | | | + +---------+ + + | EXTERNAL LAB | | | | + +---------+ + + Magnesium (12/30/2013 4:47 AM PDT) + + + + + + | Component | Value | Ref Range | Performed | Pathologist | | | | | At | Signature | + + + + + + | Magnesium | 1.8Comment: Testing | 1.7 - 2.4 mg/dL | EXTERNAL | | | | performed at [facility], [address] | | LAB | | | | [address], | | | | | | [place] [address] | | | | + + + [...] + +---------+ + + Renal Function Panel (12/30/2013 4:47 AM PDT) + + + + + + | Component | Value | Ref Range | Performed | Pathologist | | | | | At | Signature | + + + + + + | Na | 138Comment: Testing | 135 - 143 | EXTERNAL | | | | performed at [facility], [address] | mmol/L | LAB | | | | [address], | | | | | | [place] [address] | | | | + + + + + + | K | 3.9Comment: Testing | 3.5 - 4.9 | EXTERNAL | | | | performed at [facility], [address] | mmol/L | LAB | | | | [address], | | | | | | [place] [address] | | | | + + + + + + | Cl | 115 (H)Comment: Testing | 99 - 109 mmol/L | EXTERNAL | | | | performed at [facility], [address] | | LAB | | | | [address], | | | | | | [place] [address] | | | | + + + + + + | CO2 | 15 (L)Comment: Testing | 23 - 32 mmol/L | EXTERNAL | | | | performed at [facility], [address] | | LAB | | | | [address], | | | | | | [place] [address] | | | | + + + + + + | Anion Gap | 12Comment: Testing | 5 - 20 mmol/L | EXTERNAL | | | | performed at [facility], [address] | | LAB | | | | [address], | | | | | | [place] [address] | | | | + + + + + + | Glucose, | 82Comment: Testing | 65 - 99 mg/dL | EXTERNAL | | | Fasting | performed at [facility], [address] | | LAB | | | | [address], | | | | | | [place] [address] | | | | + + + + + + | BUN | 53 (H)Comment: Testing | 8 - 25 mg/dL | EXTERNAL | | | | performed at [facility], [address] | | LAB | | | | [address], | | | | | | [place] [address] | | | | + + + + + + | Creatinine | 4.00 (H)Comment: Testing | 0.70 - 1.30 | EXTERNAL | | | | performed at [facility], [address] | mg/dL | LAB | | | | [address], | | | | | | [place] [address] | | | | + + + + + + | Calcium | 8.7Comment: Testing | 8.5 - 10.2 | EXTERNAL | | | | performed at [facility], [address] | mg/dL | LAB | | | | [address], | | | | | | [place] [address] | | | | + + + + + + | Albumin | 3.3Comment: Testing | 3.3 - 4.8 g/dL | EXTERNAL | | | | performed at [facility], [address] | | LAB | | | | [address], | | | | | | [place] [address] | | | | + + + + + + | PHOSPHORUS | 3.8Comment: Testing | 2.3 - 4.8 mg/dL | EXTERNAL | | | | performed at [facility], [address] | | LAB | | | | [address], | | | | | | [place] [address] | | | | + + + + + + | Estimated | 16 (L)Comment: GFR <60: | mL/min/1.73m2 | EXTERNAL [...] | | | | | | at [facility], [address] | | | | | | [address], | | | | | | [place] [address] | | | | + + + + + + + + | Specimen | + + | | + + + +---------+ + + | Performing | Address | City/State/Zipcode | Phone Number | | Organization | | | | + +---------+ + + | EXTERNAL LAB | | | | + +---------+ + + CT Abdomen Pelvis wo Contrast (12/29/2013 3:23 PM PDT) + + | Specimen | + + | | + + + + + | Impressions | Performed At | + + + | 1. Extensive colonic diverticulosis and diffuse distal wall | | | thickening, but no high-grade active inflammatory point, fluid | | | collection, adenopathy or abscess. 2. Stomach is filled with | | | ingested contents, an element of thickening can't be excluded but | | | there is no obstruction or extraluminal lesion. 3. Small | | | gallstones, without ductal dilatation or inflammatory change Other | | | findings above are likely chronic and senescent, likely incidental to | | | acute symptoms. Electronically signed by Aki Meyers MD on | | | 12/29/2013 3:41 PM | | + + + + + + | Narrative | Performed At | + + + | HISTORY: 68 year-old male with nausea, renal failure. Pain | | | TECHNIQUE: CT through the abdomen and pelvis. Performed without the | | | administration of IV contrast. Examination performed with enteric | | | contrast. Prior study for comparison: No similar study available | | | FINDINGS: [employer] is notable for degenerative change the spinal | | | column, hyperinflation the lungs. Lung bases demonstrate no | | | infiltrate, discrete lesion or effusion, some COPD change is | | | suggested, but no severe cystic parenchymal destruction. Bones are | | | without aggressive lesion or fracture. Fairly severe degenerative | | | changes particularly of the lower lumbar spine, there is bridging | | | osteophytosis and sclerosis of the SI joints. Arthropathy of both | | | hips. Soft tissue windows of the abdomen reveal a small | | | pericardial effusion. A few punctate calcified gallstones without | | | distention of the gallbladder or ductal system. The liver is normal to | | | noncontrast technique as is the spleen, the adrenal glands and | | | pancreas are unremarkable, mild atrophy of the pancreas. | | | Vasculopathy the aorta, branch vessels to include the renal arteries. | | | A cyst arises from the posterior cortex of the right kidney on image | | | 31, about 1.5 cm, homogeneous and low density. The bowel is | | | unobstructed but there is extensive diverticulosis, points of wall | | | thickening, particularly there is broad wall thickening about the | | | sigmoid colon to the rectosigmoid junction. No focal high-grade | | | inflammatory change, no abscess, free air or adenopathy. Pelvic | | | structures are otherwise unremarkable, no adenopathy or hernia.. | | + + + + + | Procedure Note | + + | Ramiro, Rad Conversion - 01/22/2019 10:34 AM PDT HISTORY: 68 year-old male with nausea, | | renal failure. Pain TECHNIQUE: CT through the abdomen and pelvis. Performed without the | | administration of IV contrast. Examination performed with enteric contrast. Prior study | | for comparison: No similar study available FINDINGS: [employer] is notable for degenerative | | change the spinal column, hyperinflation the lungs. Lung bases demonstrate no | | infiltrate, discrete lesion or effusion, some COPD change is suggested, but no severe | | cystic parenchymal destruction. Bones are without aggressive lesion or fracture. Fairly | | severe degenerative changes particularly of the lower lumbar spine, there is bridging | | osteophytosis and sclerosis of the SI joints. Arthropathy of both hips. Soft tissue | | windows of the abdomen reveal a small pericardial effusion. A few punctate calcified | | gallstones without distention of the gallbladder or ductal system. The liver is normal | | to noncontrast technique as is the spleen, the adrenal glands and pancreas are | | unremarkable, mild atrophy of the pancreas. Vasculopathy the aorta, branch vessels to | | include the renal arteries. A cyst arises from the posterior cortex of the right kidney | | on image 31, about 1.5 cm, homogeneous and low density. The bowel is unobstructed but | | there is extensive diverticulosis, points of wall thickening, particularly there is | | broad wall thickening about the sigmoid colon to the rectosigmoid junction. No focal | | high-grade inflammatory change, no abscess, free air or adenopathy. Pelvic structures | | are otherwise unremarkable, no adenopathy or hernia.. IMPRESSION: 1. Extensive colonic | | diverticulosis and diffuse distal wall thickening, but no high-grade active inflammatory | | point, fluid collection, adenopathy or abscess. 2. Stomach is filled with ingested | | contents, an element of thickening can't be excluded but there is no obstruction or | | extraluminal lesion. 3. Small gallstones, without ductal dilatation or inflammatory | | change Other findings above are likely chronic and senescent, likely incidental to acute | | symptoms. | |IMPRESSION: | | | |1. Extensive colonic diverticulosis and diffuse distal wall thickening, but no high-grade a ctive inflammatory point, fluid collection, adenopathy or abscess. | | | |2. Stomach is filled with ingested contents, an element of thickening can't be excluded but there is no obstruction or extraluminal lesion. | | | |3. Small gallstones, without ductal dilatation or inflammatory change | | | |Other findings above are likely chronic and senescent, likely incidental to acute symptoms. | | | | | + + Norovirus 1 and 2, NAAT (12/29/2013 3:16 PM PDT) + + | Specimen | + + | | + + + + + | Narrative | Performed At | + + + | NOROVIRUS 1 PCR NOT DETECTED Testing | EXTERNAL LAB | | performed at [place] [address] NOROVIRUS 2 | | | PCR NOT DETECTED A RESULT OF NOT | | | DETECTED DOES NOT RULE OUT THE PRESENCE OF PCR INHIBITORS IN THE | | | PATIENT SPECIMEN OR NOROVIRUS NUCLEIC ACID IN CONCENTRATIONS BELOW | | | THE LEVEL OF DETECTION OF THE ASSAY. ANALYTE SPECIFIC REAGENTS (ASR) | | | ARE USED IN MANY LABORATORY TESTS NECESSARY FOR STANDARD MEDICAL CARE | | | AND GENERALLY DO NOT REQUIRE U.S. FOOD AND DRUG ADMINISTRATION (FDA) | | | APPROVAL OR CLEARANCE. THIS TEST WAS DEVELOPED AND ITS PERFORMANCE | | | CHARACTERISTICS DETERMINED BY [facility] DIVISION OF LABORATORY | | | MEDICINE. IT HAS NOT BEEN APPROVED OR CLEARED BY THE U.S. FOOD AND | | | DRUG ADMINISTRATION. THIS TEST SHOULD NOT BE REGARDED | | | INVESTIGATIONAL OR FOR RESEARCH USE. THIS TEST IS PERFORMED PURSUANT | | | TO AN AGREEMENT WITH [employer] Testing performed at | | | [place] [address] | | + + + + +---------+ + + | Performing | Address | City/State/Zipcode | Phone Number | | Organization | | | | + +---------+ + + | EXTERNAL LAB | | | | + +---------+ + + Rotavirus antigen, stool (12/29/2013 3:16 PM PDT) + + | Specimen | + + | Stool specimen | | (specimen) | + + + + + | Narrative | Performed At | + + + | ROTAVIRUS NEGATIVE Testing | EXTERNAL LAB | | performed at [facility], [address] [place] [address] | | + + + + +---------+ + + | Performing | Address | City/State/Zipcode | Phone Number | | Organization | | | | + +---------+ + + | EXTERNAL LAB | | | | + +---------+ + + Renal Function Panel (12/29/2013 8:30 AM PDT) + + + + + + | Component | Value | Ref Range | Performed | Pathologist | | | | | At | Signature | + + + + + + | Na | 143Comment: Testing | 135 - 143 | EXTERNAL | | | | performed at [facility];[address] | mmol/L | LAB | | | | [address];[place] | | | | | | [address] | | | | + + + + + + | K | 3.4 (L)Comment: Testing | 3.5 - 4.9 | EXTERNAL | | | | performed at [facility];[address] | mmol/L | LAB | | | | [address];[place] | | | | | | [address] | | | | + + + + + + | Cl | 117 (H)Comment: Testing | 99 - 109 mmol/L | EXTERNAL | | | | performed at [facility];[address] | | LAB | | | | [address];[place] | | | | | | [address] | | | | + + + + + + | CO2 | 17 (L)Comment: Testing | 23 - 32 mmol/L | EXTERNAL | | | | performed at [facility];[address] | | LAB | | | | [address];[place] | | | | | | [address] | | | | + + + + + + | Anion Gap | 12Comment: Testing | 5 - 20 mmol/L | EXTERNAL | | | | performed at [facility];[address] | | LAB | | | | [address];[place] | | | | | | [address] | | | | + + + + + + | Glucose, | 98Comment: Testing | 65 - 99 mg/dL | EXTERNAL | | | Fasting | performed at [facility];[address] | | LAB | | | | [address];[place] | | | | | | [address] | | | | + + + + + + | BUN | 60 (H)Comment: Testing | 8 - 25 mg/dL | EXTERNAL | | | | performed at [facility];[address] | | LAB | | | | [address];[place] | | | | | | [address] | | | | + + + + + + | Creatinine | 4.52 (H)Comment: Testing | 0.70 - 1.30 | EXTERNAL | | | | performed at [facility];[address] | mg/dL | LAB | | | | [address];[place] | | | | | | [address] | | | | + + + + + + | Calcium | 8.6Comment: Testing | 8.5 - 10.2 | EXTERNAL | | | | performed at [facility];[address] | mg/dL | LAB | | | | [address];[place] | | | | | | [address] | | | | + + + + + + | Albumin | 3.0 (L)Comment: Testing | 3.3 - 4.8 g/dL | EXTERNAL | | | | performed at [facility];[address] | | LAB | | | | [address];[place] | | | | | | [address] | | | | + + + + + + | PHOSPHORUS | 3.2Comment: Testing | 2.3 - 4.8 mg/dL | EXTERNAL | | | | performed at [facility];[address] | | LAB | | | | [address];[place], [place] | | | | | | [address] | | | | + + + + + + | Estimated | 14 (L)Comment: GFR <60: | mL/min/1.73m2 | EXTERNAL [...] | | | | | | at [facility];[address];[place] [address] | | | | + + + + + + + + | Specimen | + + | Blood specimen | | (specimen) | + + + +---------+ + + | Performing | Address | City/State/Zipcode | Phone Number | | Organization | | | | + +---------+ + + | EXTERNAL LAB | | | | + +---------+ + + POC Glucose (12/29/2013 6:06 AM PDT) + + + + + + | Component | Value | Ref Range | Performed | Pathologist | | | | | At | Signature | + + + + + + | Glucose, | 136 (H)Comment: Testing | 65 - 99 mg/dL | EXTERNAL | | | Fingerstick | performed at [facility];[address] | | LAB | | | | [address];[place] | | | | | | [address] | | | | + + + + + + + + | Specimen | + + | | + + + +---------+ + + | Performing | Address | City/State/Zipcode | Phone Number | | Organization | | | | + +---------+ + + | EXTERNAL LAB | | | | + +---------+ + + Ova and Parasite Examination (12/29/2013 4:40 AM PDT) + + | Specimen | + + | Stool specimen | | (specimen) | + + + + + | Narrative | Performed At | + + + | Specimen Description STOOL OVA AND | EXTERNAL LAB | | PARASITES SPECIMEN DESCRIPTION: WATERY | | | NO OVA OR PARASITES | | | SEEN REPORT STATUS FINAL 12/30/2013 | | + + + + +---------+ + + | Performing | Address | City/State/Zipcode | Phone Number | | Organization | | | | + +---------+ + + | EXTERNAL LAB | | | | + +---------+ + + POC Glucose (12/28/2013 10:07 PM PDT) + + + + + + | Component | Value | Ref Range | Performed | Pathologist | | | | | At | Signature | + + + + + + | Glucose, | 128 (H)Comment: Testing | 65 - 99 mg/dL | EXTERNAL | | | Fingerstick | performed at [facility];[address] | | LAB | | | | [address];[place] | | | | | | [address] | | | | + + + + + + + + | Specimen | + + | | + + + +---------+ + + | Performing | Address | City/State/Zipcode | Phone Number | | Organization | | | | + +---------+ + + | EXTERNAL LAB | | | | + +---------+ + + HISTORICAL MICROBIOLOGY RESULT (12/28/2013 9:25 PM PDT) + + | Specimen | + + | Stool specimen | | (specimen) | + + + + + | Narrative | Performed At | + + + | Toxigenic C Difficile NEGATIVE Testing | EXTERNAL LAB | | performed at [facility], [address] [place] [id number] | | | NAP1 BI 027 NAP1 BI PRESUMPTIVE | | | NEGATIVE Detection of 027 NAP1 BI strains of C. difficile is | | | presumptive and for epidemiological purposes and not intended to guide | | | or monitor treatment for C. difficile infections. Testing performed | | | at [facility], [address] [place] [address] | | + + + + +---------+ + + | Performing | Address | City/State/Zipcode | Phone Number | | Organization | | | | + +---------+ + + | EXTERNAL LAB | | | | + +---------+ + + Culture, Yersinia Stool (12/28/2013 9:25 PM PDT) + + | Specimen | + + | Stool specimen | | (specimen) | + + + + + | Narrative | Performed At | + + + | Specimen Description STOOL CULTURE | EXTERNAL LAB | | NEGATIVE FOR SHIGA TOXIN TYPE 1 | | | AND 2. NEGATIVE | | | FOR SALMONELLA, SHIGELLA AND CAMPYLOBACTER | | | NO YERSINIA SPECIES ISOLATED | | | IF A VIBRIO IS SUSPECTED, | | | PLEASE CONTACT THE MICRO LAB FOR SPECIAL TESTING. REPORT STATUS | | | FINAL | | | 12/30/2013 | | + + + + +---------+ + + | Performing | Address | City/State/Zipcode | Phone Number | | Organization | | | | + +---------+ + + | EXTERNAL LAB | | | | + +---------+ + + External Lab: Occult Blood, Screening (12/28/2013 9:25 PM PDT) + + | Specimen | + + | Stool specimen | | (specimen) | + + + + + | Narrative | Performed At | + + + | Fecal Occult Blood NEGATIVE Testing | EXTERNAL LAB | | performed at [facility];[address] [place] [address];[place] [address] | | + + + + +---------+ + + | Performing | Address | City/State/Zipcode | Phone Number | | Organization | | | | + +---------+ + + | EXTERNAL LAB | | | | + +---------+ + + Fecal leukocytes (12/28/2013 9:25 PM PDT) + + | Specimen | + + | Stool specimen | | (specimen) | + + + + + | Narrative | Performed At | + + + | FECAL WHITE CELLS 3+ WBC'S SEEN NORMAL | EXTERNAL LAB | | RANGE: NONE SEEN to 1+ Testing performed at [facility], [address] | | | [place] [address] | | + + + + +---------+ + + | Performing | Address | City/State/Zipcode | Phone Number | | Organization | | | | + +---------+ + + | EXTERNAL LAB | | | | + +---------+ + + POC Glucose (12/28/2013 4:07 PM PDT) + + + + + + | Component | Value | Ref Range | Performed | Pathologist | | | | | At | Signature | + + + + + + | Glucose, | 210 (H)Comment: Testing | 65 - 99 mg/dL | EXTERNAL | | | Fingerstick | performed at [facility];[address] | | LAB | | | | [address];[place] | | | | | | [address] | | | | + + + + + + + + | Specimen | + + | | + + + +---------+ + + | Performing | Address | City/State/Zipcode | Phone Number | | Organization | | | | + +---------+ + + | EXTERNAL LAB | | | | + +---------+ + + POC Glucose (12/28/2013 11:41 AM PDT) + + + + + + | Component | Value | Ref Range | Performed | Pathologist | | | | | At | Signature | + + + + + + | Glucose, | 175 (H)Comment: Testing | 65 - 99 mg/dL | EXTERNAL | | | Fingerstick | performed at [facility];[address] | | LAB | | | | [address];[place] | | | | | | [address] | | | | + + + + + + + + | Specimen | + + | | + + + +---------+ + + | Performing | Address | City/State/Zipcode | Phone Number | | Organization | | | | + +---------+ + + | EXTERNAL LAB | | | | + +---------+ + + pH, venous (12/28/2013 8:46 AM PDT) + + + + + + | Component | Value | Ref Range | Performed | Pathologist | | | | | At | Signature | + + + + + + | pH, Bld | 7.230 (L)Comment: | 7.300 - 7.450 | EXTERNAL | | | | Testing performed at | | LAB | | | | [facility];[address];[place] [address] | | | | + + + + + + + + | Specimen | + + | Blood specimen | | (specimen) | + + + +---------+ + + | Performing | Address | City/State/Zipcode | Phone Number | | Organization | | | | + +---------+ + + | EXTERNAL LAB | | | | + +---------+ + + POC Glucose (12/28/2013 5:57 AM PDT) + + + + + + | Component | Value | Ref Range | Performed | Pathologist | | | | | At | Signature | + + + + + + | Glucose, | 184 (H)Comment: Testing | 65 - 99 mg/dL | EXTERNAL | | | Fingerstick | performed at [facility];[address] | | LAB | | | [address];[place], [place] | | | | | | [address] | | | | + + + + + + + + | Specimen | + + | | + + + +---------+ + + | Performing | Address | City/State/Zipcode | Phone Number | | Organization | | | | + +---------+ + + | EXTERNAL LAB | | | | + +---------+ + + External Lab: CBC (12/28/2013 4:36 AM PDT) + + + + + + | Component | Value | Ref Range | Performed | Pathologist | | | | | At | Signature | + + + + + + | WBC | 8.5Comment: Testing | 3.8 - 11.0 K/uL | EXTERNAL | | | | performed at [facility], [address] | | LAB | | | | [address], | | | | | | [place] [address] | | | | + + + + + + | Non- | 2.73 (L)Comment: Testing | 4.20 - 5.70 | EXTERNAL | | | Red Blood | performed at [facility], [address] | M/uL | LAB | | | Cells | [address], | | | | | Counted | [place] [address] | | | | + + + + + + | Hemoglobin | 8.5 (L)Comment: Testing | 13.2 - 17.0 | EXTERNAL | | | | performed at [facility], [address] | g/dL | LAB | | | | [address], | | | | | | [place] [address] | | | | + + + + + + | Hematocrit, | 25.7 (L)Comment: Testing | 39.0 - 50.0 % | EXTERNAL | | | POC | performed at [facility], [address] | | LAB | | | | [address], | | | | | | [place] [address] | | | | + + + + + + | MCV | 94.1Comment: Testing | 80.0 - 100.0 fl | EXTERNAL | | | | performed at [facility], [address] | | LAB | | | | [address], | | | | | | [place] [address] | | | | + + + + + + | MCH | 31.2Comment: Testing | 27.0 - 34.0 pg | EXTERNAL | | | | performed at [facility], [address] | | LAB | | | | [address], | | | | | | [place] [address] | | | | + + + + + + | MCHC | 33.2Comment: Testing | 32.0 - 35.5 | EXTERNAL | | | | performed at [facility], [address] | g/dL | LAB | | | | [address], | | | | | | [place] [address] | | | | + + + + + + | RDW-CV | 50.8Comment: Testing | 37 - 53 fl | EXTERNAL | | | | performed at [facility], [address] | | LAB | | | | [address], | | | | | | [place] [address] | | | | + + + + + + | Platelet | 193Comment: Testing | 150 - 400 K/uL | EXTERNAL | | | Count | performed at [facility], [address] | | LAB | | | Plasma | [address], | | | | | | [place] [address] | | | | + + + + + + | MPV | 7.9Comment: Testing | fl | EXTERNAL | | | | performed at [facility], [address] | | LAB | | | | [address], | | | | | | [place] [address] | | | | + + + + + + | Differentia | AUTOMATEDComment: | | EXTERNAL | | | l Type | Testing performed at | | LAB | | | | [facility], [address] | | | | | | [place] | | | | | | [address] | | | | + + + + + + | % Segmented | 68.2Comment: Testing | % | EXTERNAL | | | | performed at [facility], [address] | | LAB | | | Neutrophils | [address], | | | | | | [place] [address] | | | | + + + + + + | % | 18.7Comment: Testing | % | EXTERNAL | | | Lymphocytes | performed at [facility], [address] | | LAB | | | | [address], | | | | | | [place] [address] | | | | + + + + + + | % Monocytes | 9.9Comment: Testing | % | EXTERNAL | | | | performed at [facility], [address] | | LAB | | | | [address], | | | | | | [place] [address] | | | | + + + + + + | % | 2.5Comment: Testing | % | EXTERNAL | | | Eosinophils | performed at [facility], [address] | | LAB | | | | [address], | | | | | | [place] [address] | | | | + + + + + + | % Basophils | 0.7Comment: Testing | % | EXTERNAL | | | | performed at [facility], [address] | | LAB | | | | [address], | | | | | | [place] [address] | | | | + + + + + + | Absolute | 5.8Comment: Testing | 1.9 - 7.4 K/uL | EXTERNAL | | | Segmented | performed at [facility], [address] | | LAB | | | Neutrophils | [address], | | | | | | [place] [address] | | | | + + + + + + | Absolute | 1.6Comment: Testing | 1.0 - 3.9 K/uL | EXTERNAL | | | Lymphocytes | performed at [facility], [address] | | LAB | | | | [address], | | | | | | [place] [address] | | | | + + + + + + | Absolute | 0.8Comment: Testing | 0 - 0.8 K/uL | EXTERNAL | | | Monocytes | performed at [facility], [address] | | LAB | | | | [address], | | | | | | [place] [address] | | | | + + + + + + | Absolute | 0.2Comment: Testing | 0 - 0.5 K/uL | EXTERNAL | | | Eosinophils | performed at [facility], [address] | | LAB | | | | [address], | | | | | | [place] [address] | | | | + + + + + + | Absolute | 0.1Comment: Testing | 0 - 0.1 K/uL | EXTERNAL | | | Basophils | performed at [facility], [address] | | LAB | | | | [address], | | | | | | [place] [address] | | | | + + + + + + + + | Specimen | + + | Blood specimen | | (specimen) | + + + +---------+ + + | Performing | Address | City/State/Zipcode | Phone Number | | Organization | | | | + +---------+ + + | EXTERNAL LAB | | | | + +---------+ + + Phosphorus (12/28/2013 4:36 AM PDT) + + + + + + | Component | Value | Ref Range | Performed | Pathologist | | | | | At | Signature | + + + + + + | PHOSPHORUS | 4.9 (H)Comment: Testing | 2.3 - 4.8 mg/dL | EXTERNAL | | | | performed at [facility], [address] | | LAB | | | | [address], | | | | | | [place] [address] | | | | + + + + + + + + | Specimen | + + | Blood specimen | | (specimen) | + + + +---------+ + + | Performing | Address | City/State/Zipcode | Phone Number | | Organization | | | | + +---------+ + + | EXTERNAL LAB | | | | + +---------+ + + Magnesium (12/28/2013 4:36 AM PDT) + + + + + + | Component | Value | Ref Range | Performed | Pathologist | | | | | At | Signature | + + + + + + | Magnesium | 1.9Comment: Testing | 1.7 - 2.4 mg/dL | EXTERNAL | | | | performed at [facility], [address] | | LAB | | | | [address], | | | | | | [place] [address] | | | | + + + [...] + +---------+ + + Basic Metabolic Panel (12/28/2013 4:36 AM PDT) + + + + + + | Component | Value | Ref Range | Performed | Pathologist | | | | | At | Signature | + + + + + + | Na | 135Comment: Testing | 135 - 143 | EXTERNAL | | | | performed at [facility], [address] | mmol/L | LAB | | | | [address], | | | | | | [place] [address] | | | | + + + + + + | K | 3.8Comment: Testing | 3.5 - 4.9 | EXTERNAL | | | | performed at [facility], [address] | mmol/L | LAB | | | | [address], | | | | | | [place] [address] | | | | + + + + + + | Cl | 112 (H)Comment: Testing | 99 - 109 mmol/L | EXTERNAL | | | | performed at [facility], [address] | | LAB | | | | [address], | | | | | | [place] [address] | | | | + + + + + + | CO2 | 15 (L)Comment: Testing | 23 - 32 mmol/L | EXTERNAL | | | | performed at [facility], [address] | | LAB | | | | [address], | | | | | | [place] [address] | | | | + + + + + + | Anion Gap | 12Comment: Testing | 5 - 20 mmol/L | EXTERNAL | | | | performed at [facility], [address] | | LAB | | | | [address], | | | | | | [place] [address] | | | | + + + + + + | Glucose, | 144 (H)Comment: Testing | 65 - 99 mg/dL | EXTERNAL | | | Fasting | performed at [facility], [address] | | LAB | | | | [address], | | | | | | [place] [address] | | | | + + + + + + | BUN | 69 (H)Comment: Testing | 8 - 25 mg/dL | EXTERNAL | | | | performed at [facility], [address] | | LAB | | | | [address], | | | | | | [place] [address] | | | | + + + + + + | Creatinine | 5.10 (H)Comment: Testing | 0.70 - 1.30 | EXTERNAL | | | | performed at [facility], [address] | mg/dL | LAB | | | | [address], | | | | | | [place] [address] | | | | + + + + + + | BUN/Creatin | 14Comment: Testing | | EXTERNAL | | | ine Ratio | performed at [facility], [address] | | LAB | | | | [address], | | | | | | [place] [address] | | | | + + + + + + | Calcium | 9.0Comment: Testing | 8.5 - 10.2 | EXTERNAL | | | | performed at [facility], [address] | mg/dL | LAB | | | | [address], | | | | | | [place] [address] | | | | + + + + + + | Estimated | 12 (L)Comment: GFR <60: | mL/min/1.73m2 | EXTERNAL [...] | | | | | | at [facility], [address] | | | | | | [address], | | | | | | [place] [address] | | | | + + + [...] + +---------+ + + Urinalysis, Microscopic Only (12/28/2013 2:18 AM PDT) + + + + + + | Component | Value | Ref Range | Performed | Pathologist | | | | | At | Signature | + + + + + + | WBC, UA | 0-2Comment: Testing | 0 - 5 /hpf | EXTERNAL | | | | performed at [facility], [address] | | LAB | | | | [address], | | | | | | [place] [address] | | | | + + + + + + | RBC, UA | 1-5Comment: Testing | 0 - 2 /hpf | EXTERNAL | | | | performed at [facility], [address] | | LAB | | | | [address], | | | | | | [place] [address] | | | | + + + + + + | Epithelial | 11-15Comment: Testing | /lpf | EXTERNAL | | | Cells | performed at [facility], [address] | | LAB | | | | [address], | | | | | | [place] [address] | | | | + + + + + + | Bacteria, | NONE SEENComment: | | EXTERNAL | | | UA | Testing performed at | | LAB | | | | [facility], [address] | | | | | | [place] | | | | | | [address] | | | | + + + + + + | HYALINE | 0-2Comment: Testing | | EXTERNAL | | | CASTS UA | performed at [facility], [address] | | LAB | | | | [address], | | | | | | [place] [address] | | | | + + + + + + + + | Specimen | + + | | + + + +---------+ + + | Performing | Address | City/State/Zipcode | Phone Number | | Organization | | | | + +---------+ + + | EXTERNAL LAB | | | | + +---------+ + + Urinalysis with Microscopic if Indicated (12/28/2013 2:18 AM PDT) + + + + + + | Component | Value | Ref Range | Performed | Pathologist | | | | | At | Signature | + + + + + + | Color | YELLOWComment: Testing | | EXTERNAL | | | | performed at [facility], [address] | | LAB | | | | [address], | | | | | | [place] [address] | | | | + + + + + + | Clarity, | CLEARComment: Testing | | EXTERNAL | | | Urine | performed at [facility], [address] | | LAB | | | | [address], | | | | | | [place] [address] | | | | + + + + + + | Specific | 1.016Comment: Testing | 1.002 - 1.030 | EXTERNAL | | | [place], | performed at [facility], [address] | | LAB | | | Urine | [address], | | | | | | [place] [address] | | | | + + + + + + | Leukocyte | NEGATIVEComment: | | EXTERNAL | | | Esterase, | Testing performed at | | LAB | | | Urine | [facility], [address] | | | | | | [place] | | | | | | [address] | | | | + + + + + + | Nitrite, | NEGATIVEComment: Testing | | EXTERNAL | | | Urine | performed at [facility], [address] | | LAB | | | | [address], | | | | | | [place] [address] | | | | + + + + + + | Urobilinoge | 0.2Comment: Testing | mg/dL | EXTERNAL | | | n, Urine | performed at [facility], [address] | | LAB | | | | [address], | | | | | | [place] [address] | | | | + + + + + + | Protein, | 100 (A)Comment: Testing | mg/dL | EXTERNAL | | | Urine | performed at [facility], [address] | | LAB | | | | [address], | | | | | | [place] [address] | | | | + + + + + + | pH, Urine | 5.5Comment: Testing | 5.0 - 8.0 | EXTERNAL | | | | performed at [facility], [address] | | LAB | | | | [address], | | | | | | [place] [address] | | | | + + + + + + | Blood, | NEGATIVEComment: Testing | | EXTERNAL | | | Urine | performed at [facility], [address] | | LAB | | | | [address], | | | | | | [place] [address] | | | | + + + + + + | Ketones | NEGATIVEComment: Testing | mg/dL | EXTERNAL | | | | performed at [facility], [address] | | LAB | | | | [address], | | | | | | [place] [address] | | | | + + + + + + | Bilirubin, | NEGATIVEComment: Testing | | EXTERNAL | | | Urine | performed at [facility], [address] | | LAB | | | | [address], | | | | | | [place] [address] | | | | + + + + + + | Glucose, | 500 (A)Comment: Testing | mg/dL | EXTERNAL | | | Urine | performed at [facility], [address] | | LAB | | | | [address], | | | | | | [place] [address] | | | | + + + + + + + + | Specimen | + + | Urine specimen | | (specimen) | + + + +---------+ + + | Performing | Address | City/State/Zipcode | Phone Number | | Organization | | | | + +---------+ + + | EXTERNAL LAB | | | | + +---------+ + + US Renal Limited (12/27/2013 7:02 PM PDT) + + | Specimen | + + | | + + + + + | Impressions | Performed At | + + + | 1. There is no evidence of hydronephrosis. 2. Mild increased | | | echogenicity and cortical thinning of the kidneys is nonspecific and | | | may reflect mild medical renal disease. 3. Incidental right renal | | | cyst. | | | 7:13 PM | | + + + + + + | Narrative | Performed At | + + + | [facility] US KIDNEYS [facility] BLADDER 12/27/2013 7:02 | | | PM HISTORY: Acute renal failure COMPARISON: None. | | | TECHNIQUE: Transabdominal ultrasound of the kidneys and bladder, | | | grayscale and color flow evaluation. FINDINGS: The bladder | | | measures 5.3 x 7.6 x 9.6 cm with a prevoid volume of 204 mL. There is | | | a residual post void residual of 39 mL. The right kidney | | | demonstrates mild cortical thinning and slight increased echogenicity. | | | The right kidney measures 10.7 x 6.1 x 4.6 cm. There appears to be a | | | small anechoic structure along the midpole of the right kidney with | | | posterior acoustic enhancement measuring 1.2 cm in diameter with no | | | internal vascularity. No hydronephrosis is present. The left | | | kidney also demonstrates mild cortical thinning and measures 10.9 x | | | 6.9 x 5.3 cm. No hydronephrosis or perinephric fluid collection is | | | demonstrated. | | + + + + + | Procedure Note | + + | Elmo Rubio Conversion - 01/22/2019 10:34 AM PDT [facility] KIDNEYS AND | | BLADDER12/27/2013 7:02 PM HISTORY: Acute renal failure COMPARISON: None. TECHNIQUE: | | Transabdominal ultrasound of the kidneys and bladder, grayscale and color flow | | evaluation. FINDINGS: The bladder measures 5.3 x 7.6 x 9.6 cm with a prevoid volume of | | 204 mL. There is a residual post void residual of 39 mL. The right kidney demonstrates | | mild cortical thinning and slight increased echogenicity. The right kidney measures 10.7 | | x 6.1 x 4.6 cm. There appears to be a small anechoic structure along the midpole of the | | right kidney with posterior acoustic enhancement measuring 1.2 cm in diameter with no | | internal vascularity. No hydronephrosis is present. The left kidney also demonstrates | | mild cortical thinning and measures 10.9 x 6.9 x 5.3 cm. No hydronephrosis or | | perinephric fluid collection is demonstrated. IMPRESSION: 1. There is no evidence of | | hydronephrosis.2. Mild increased echogenicity and cortical thinning of the kidneys is | | nonspecific and may reflect mild medical renal disease.3. Incidental right renal cyst. | | | |enhancement measuring 1.2 cm in diameter with no internal vascularity. No hydronephrosis is present. | | | |The left kidney also demonstrates mild cortical thinning and measures 10.9 x 6.9 x 5.3 cm. No hydronephrosis or perinephric fluid collection is demonstrated. | | | |IMPRESSION: | |1. There is no evidence of hydronephrosis. | |2. Mild increased echogenicity and cortical thinning of the kidneys is nonspecific and may reflect mild medical renal disease. | |3. Incidental right renal cyst. | | | | | + + External Lab: CBC (12/27/2013 4:50 PM PDT) + + + + + + | Component | Value | Ref Range | Performed | Pathologist | | | | | At | Signature | + + + + + + | WBC | 7.5Comment: Testing | 3.8 - 11.0 K/uL | EXTERNAL | | | | performed at [facility];[address] | | LAB | | | | [address];[place], [place] | | | | | | [address] | | | | + + + + + + | Non- | 2.63 (L)Comment: Testing | 4.20 - 5.70 | EXTERNAL | | | Red Blood | performed at [facility];[address] | M/uL | LAB | | | Cells | [address];[place] | | | | | Counted | [id number] | | | | + + + + + + | Hemoglobin | 8.1 (L)Comment: Testing | 13.2 - 17.0 | EXTERNAL | | | | performed at [facility];[address] | g/dL | LAB | | | | [address];[place] | | | | | | [address] | | | | + + + + + + | Hematocrit, | 24.1 (L)Comment: Testing | 39.0 - 50.0 % | EXTERNAL | | | POC | performed at [facility];[address] | | LAB | | | | [address];[place] | | | | | | [address] | | | | + + + + + + | MCV | 91.5Comment: Testing | 80.0 - 100.0 fl | EXTERNAL | | | | performed at [facility];[address] | | LAB | | | | [address];[place] | | | | | | [address] | | | | + + + + + + | MCH | 30.8Comment: Testing | 27.0 - 34.0 pg | EXTERNAL | | | | performed at [facility];[address] | | LAB | | | | [address];[place] | | | | | | [address] | | | | + + + + + + | MCHC | 33.6Comment: Testing | 32.0 - 35.5 | EXTERNAL | | | | performed at [facility];[address] | g/dL | LAB | | | | [address];[place] | | | | | | [address] | | | | + + + + + + | RDW-CV | 50.8Comment: Testing | 37 - 53 fl | EXTERNAL | | | | performed at [facility];[address] | | LAB | | | | [address];[place] | | | | | | [address] | | | | + + + + + + | Platelet | 198Comment: Testing | 150 - 400 K/uL | EXTERNAL | | | Count | performed at [facility];[address] | | LAB | | | Plasma | [address];[place] | | | | | | [address] | | | | + + + + + + | MPV | 7.4Comment: Testing | fl | EXTERNAL | | | | performed at [facility];[address] | | LAB | | | | [address];[place] | | | | | | [address] | | | | + + + + + + | Differentia | AUTOMATEDComment: | | EXTERNAL | | | l Type | Testing performed at | | LAB | | | | [facility];[address];[place] [address] | | | | + + + + + + | % Segmented | 72.7Comment: Testing | % | EXTERNAL | | | | performed at [facility];[address] | | LAB | | | Neutrophils | [address];[place] | | | | | | [address] | | | | + + + + + + | % | 16.3Comment: Testing | % | EXTERNAL | | | Lymphocytes | performed at [facility];[address] | | LAB | | | | [address];[place] | | | | | | [address] | | | | + + + + + + | % Monocytes | 8.7Comment: Testing | % | EXTERNAL | | | | performed at [facility];[address] | | LAB | | | | [address];[place] | | | | | | [address] | | | | + + + + + + | % | 1.7Comment: Testing | % | EXTERNAL | | | Eosinophils | performed at [facility];[address] | | LAB | | | | [address];[place] | | | | | | [address] | | | | + + + + + + | % Basophils | 0.6Comment: Testing | % | EXTERNAL | | | | performed at [facility];[address] | | LAB | | | | [address];[place] | | | | | | [address] | | | | + + + + + + | Absolute | 5.5Comment: Testing | 1.9 - 7.4 K/uL | EXTERNAL | | | Segmented | performed at [facility];[address] | | LAB | | | Neutrophils | [address];[place] | | | | | | [address] | | | | + + + + + + | Absolute | 1.2Comment: Testing | 1.0 - 3.9 K/uL | EXTERNAL | | | Lymphocytes | performed at [facility];[address] | | LAB | | | | [address];[place] | | | | | | [address] | | | | + + + + + + | Absolute | 0.7Comment: Testing | 0 - 0.8 K/uL | EXTERNAL | | | Monocytes | performed at [facility];[address] | | LAB | | | | [address];[place] | | | | | | [address] | | | | + + + + + + | Absolute | 0.1Comment: Testing | 0 - 0.5 K/uL | EXTERNAL | | | Eosinophils | performed at [facility];[address] | | LAB | | | | [address];[place] | | | | | | [address] | | | | + + + + + + | Absolute | 0.0Comment: Testing | 0 - 0.1 K/uL | EXTERNAL | | | Basophils | performed at [facility];[address] | | LAB | | | | [address];[place] | | | | | | [address] | | | | + + + + + + + + | Specimen | + + | Blood specimen | | (specimen) | + + + +---------+ + + | Performing | Address | City/State/Zipcode | Phone Number | | Organization | | | | + +---------+ + + | EXTERNAL LAB | | | | + +---------+ + + Phosphorus (12/27/2013 4:50 PM PDT) + + + + + + | Component | Value | Ref Range | Performed | Pathologist | | | | | At | Signature | + + + + + + | PHOSPHORUS | 4.6Comment: Testing | 2.3 - 4.8 mg/dL | EXTERNAL | | | | performed at [facility];[address] | | LAB | | | | [address];[place], [place] | | | | | | [address] | | | | + + + + + + + + | Specimen | + + | Blood specimen | | (specimen) | + + + +---------+ + + | Performing | Address | City/State/Zipcode | Phone Number | | Organization | | | | + +---------+ + + | EXTERNAL LAB | | | | + +---------+ + + Magnesium (12/27/2013 4:50 PM PDT) + + + + + + | Component | Value | Ref Range | Performed | Pathologist | | | | | At | Signature | + + + + + + | Magnesium | 2.1Comment: Testing | 1.7 - 2.4 mg/dL | EXTERNAL | | | | performed at [facility];[address] | | LAB | | | | [address];[place], [place] | | | | | | [address] | | | | + + + [...] + +---------+ + + Comprehensive Metabolic Panel (12/27/2013 4:50 PM PDT) + + + + + + | Component | Value | Ref Range | Performed | Pathologist | | | | | At | Signature | + + + + + + | Na | 137Comment: Testing | 135 - 143 | EXTERNAL | | | | performed at [facility];[address] | mmol/L | LAB | | | | [address];[place] | | | | | | [address] | | | | + + + + + + | K | 3.9Comment: Testing | 3.5 - 4.9 | EXTERNAL | | | | performed at [facility];[address] | mmol/L | LAB | | | | [address];[place] | | | | | | [address] | | | | + + + + + + | Cl | 108Comment: Testing | 99 - 109 mmol/L | EXTERNAL | | | | performed at [facility];[address] | | LAB | | | | [address];[place] | | | | | | [address] | | | | + + + + + + | CO2 | 17 (L)Comment: Testing | 23 - 32 mmol/L | EXTERNAL | | | | performed at [facility];[address] | | LAB | | | | [address];[place] | | | | | | [address] | | | | + + + + + + | Anion Gap | 17Comment: Testing | 5 - 20 mmol/L | EXTERNAL | | | | performed at [facility];[address] | | LAB | | | | [address];[place] | | | | | | [address] | | | | + + + + + + | Glucose, | 232 (H)Comment: Testing | 65 - 99 mg/dL | EXTERNAL | | | Fasting | performed at [facility];[address] | | LAB | | | | [address];[place] | | | | | | [address] | | | | + + + + + + | BUN | 73 (H)Comment: Testing | 8 - 25 mg/dL | EXTERNAL | | | | performed at [facility];[address] | | LAB | | | | [address];[place] | | | | | | [address] | | | | + + + + + + | Creatinine | 5.71 (H)Comment: Testing | 0.70 - 1.30 | EXTERNAL | | | | performed at [facility];[address] | mg/dL | LAB | | | | [address];[place] | | | | | | [address] | | | | + + + + + + | BUN/Creatin | 13Comment: Testing | | EXTERNAL | | | ine Ratio | performed at [facility];[address] | | LAB | | | | [address];[place] | | | | | | [address] | | | | + + + + + + | Calcium | 9.1Comment: Testing | 8.5 - 10.2 | EXTERNAL | | | | performed at [facility];[address] | mg/dL | LAB | | | | [address];[place] | | | | | | [address] | | | | + + + + + + | Protein, | 7.3Comment: Testing | 6.3 - 8.2 g/dL | EXTERNAL | | | Total | performed at [facility];[address] | | LAB | | | | [address];[place] | | | | | | [address] | | | | + + + + + + | Albumin | 3.5Comment: Testing | 3.3 - 4.8 g/dL | EXTERNAL | | | | performed at [facility];[address] | | LAB | | | | [address];[place] | | | | | | [address] | | | | + + + + + + | Globulin | 3.8Comment: Testing | 1.3 - 4.9 g/dL | EXTERNAL | | | | performed at [facility];[address] | | LAB | | | | [address];[place] | | | | | | [address] | | | | + + + + + + | A/G Ratio | 0.9 (L)Comment: Testing | 1.0 - 2.4 | EXTERNAL | | | | performed at [facility];[address] | | LAB | | | | [address];[place] | | | | | | [address] | | | | + + + + + + | Bilirubin | 0.3Comment: Testing | 0.1 - 1.5 mg/dL | EXTERNAL | | | Total | performed at [facility];[address] | | LAB | | | | [address];[place] | | | | | | [address] | | | | + + + + + + | ALP, | 17 (L)Comment: Testing | 35 - 115 U/L | EXTERNAL | | | External | performed at [facility];[address] | | LAB | | | | [address];[place] | | | | | | [address] | | | | + + + + + + | AST | 18Comment: Testing | 10 - 45 U/L | EXTERNAL | | | | performed at [facility];[address] | | LAB | | | | [address];[place] | | | | | | [address] | | | | + + + + + + | ALT | 14Comment: Testing | 10 - 65 U/L | EXTERNAL | | | | performed at [facility];[address] | | LAB | | | | [address];[place] | | | | | | [address] | | | | + + + + + + | Estimated | 11 (L)Comment: GFR <60: | mL/min/1.73m2 | EXTERNAL [...] | | | | | | at [facility];[address] [place] [address] | | | | | | [facility];[place] [address] | | | | + + + + + + + + | Specimen | + + | Blood specimen | | (specimen) | + + + +---------+ + + | Performing | Address | City/State/Zipcode | Phone Number | | Organization | | | | + +---------+ + + | EXTERNAL LAB | | | | + +---------+ + + XR Chest 2 Vws (12/27/2013 4:29 PM PDT) + + | Specimen | + + | | + + + + + | Impressions | Performed At | + + + | 1. No evident acute infiltrate, failure or active cardiopulmonary | | | disease to explain symptoms 2. Degenerative changes and | | | midthoracic compression fracture, without retropulsion. Unknown | | | chronicity. Electronically signed by Aki Meyers MD on | | | 12/27/2013 5:17 PM | | + + + + + + | Narrative | Performed At | + + + | History: 68 year-old male with unexplained nausea. Technique: | | | Frontal and lateral radiographic examination of the chest. No prior | | | study for comparison. Findings: Cardiomediastinum is normal. | | | Lungs are symmetrically inflated without pneumothorax, infiltrate, or | | | effusion. Bones reveal midthoracic compression, unknown | | | chronicity. No baseline study for comparison. There is also multilevel | | | disc endplate disease and some calcification of the | | | intra-longitudinal ligament | | + + + + + | Procedure Note | + + | Elmo Rubio - 01/22/2019 10:34 AM PDT History: 68 year-old male with | | unexplained nausea. Technique: Frontal and lateral radiographic examination of the | | chest. No prior study for comparison. Findings: Cardiomediastinum is normal. Lungs are | | symmetrically inflated without pneumothorax, infiltrate, or effusion. Bones reveal | | midthoracic compression, unknown chronicity. No baseline study for comparison. There is | | also multilevel disc endplate disease and some calcification of the intra-longitudinal | | ligament IMPRESSION: 1. No evident acute infiltrate, failure or active cardiopulmonary | | disease to explain symptoms 2. Degenerative changes and midthoracic compression | | fracture, without retropulsion. Unknown chronicity. | |IMPRESSION: | | | |1. No evident acute infiltrate, failure or active cardiopulmonary disease to explain sympto ms | | | |2. Degenerative changes and midthoracic compression fracture, without retropulsion. Unknown chronicity. | | | | | + + ECG 12 lead (12/27/2013 4:13 PM PDT) + + + + + + | Component | Value | Ref Range | Performed | Pathologist | | | | | At | Signature | + + + + + + | DIAGNOSIS: | Normal sinus | | EXTERNAL | | | | rhythmNormal ECGNo | | LAB | | | | previous ECGs | | | | | | availableThis ECG | | | | | | contains Unconfirmed | | | | | | Interpretation | | | | | | Statements. See ED | | | | | | Record for Physician | | | | | | Interpretation. | | | | | | Confirmed by MUSE READ | | | | | | ONLY, -COMPUTER ([id number]), | | | | | | map editor RASHAWN SANCHEZ | | | | | | (4) on 12/27/2013 5:37:53 | | | | | | PM | | | | + + + + + + + + | Specimen | + + | | + + + + + | Narrative | Performed At | + + + | Historically converted procedure from Era Epic environment | EXTERNAL LAB | + + + + +---------+ + + | Performing | Address | City/State/Zipcode | Phone Number | | Organization | | | | + +---------+ + + | EXTERNAL LAB | | | | + +---------+ + + documented in this encounter Visit Diagnoses + + | Diagnosis | + + | Acute renal failure (HCC) Acute kidney failure, unspecified | + + | Nausea Nausea alone | + + | Anemia of chronic renal failure Anemia in chronic kidney disease | + + | ARF (acute renal failure) (HCC) Acute kidney failure, unspecified | + + | CKD (chronic kidney disease), stage V (HCC) Chronic kidney disease, Stage V | + + | 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
--- OUTSIDE RECORDS SUMMARY | ~2019-12-23 | XMS | Encounter Summary ---
Demographics + + + | Address | [address] | | | [place] [address] | + + + | Home Phone [...] [place] | | | | | [address] | | + + + + + | Parth Vital | ECON | Unknown | | + + + + + Care Team Providers + +------+ + | Care Information Specialist Name | Role | Phone | + +------+ + | Star Doll MD | PCP | | + +------+ + Reason for Visit + +--------+ + | Reason | Onset | Comments | | | Date | | + +--------+ + | Medication Refill | 04/16/ | | | | 2018 | | + +--------+ + Encounter Details +--------+--------+ + + + | Date | Type | Department | Care Team | Description | +--------+--------+ + + + | 04/16/ | Refill | [facility] | Justina José | Medication Refill | | 2018 | | NEPRHOLOGY [place] Pj Whitaker, Agronomy Location Manager | | | | | [address] | | | | | | [address] [place], [place] | | | | | | [address] | | | | | | [phone] | | | +--------+--------+ + + + [...]
--- OUTSIDE RECORDS SUMMARY | ~2019-12-23 | XMS | Encounter Summary ---
Demographics + + + | Address | [address] | | | [place] [address] | + + + | Home Phone | | + + + | Preferred Language | Unknown | + + + | Marital Status | | + + + | Restorationist Affiliation | Unknown | + + + [...] [place] | | | | | [address] | | + + + + + | Parth Vital | ECON | Unknown | | + + + + + Care Team Providers + +------+ + | Care Straightedge Machine Operator Helper Name | Role | Phone | + +------+ + | Star Doll MD | PCP | | + +------+ + Reason for Visit +--------+ + | Reason | Comments | +--------+ + | Apnea | | +--------+ + Encounter Details +--------+---------+ + + + | Date | Type | Department | Care Team | Description | +--------+---------+ + + + | 02/04/ | Office | [facility] | Omer Ling PA | YISEL on CPAP (Primary | | 2012 | Visit | SLEEP DISORDER [address] | [address] | Dx) | | | | [address] | [place] | | | | | [place] [address] | [address] | | | | | [phone] | | | +--------+---------+ + + + [...] + + + | Blood Pressure | 114/68 | 02/04/2013 11:10 AM | | | | | PDT | | + + + + + | Pulse | 67 | 02/04/2013 11:10 AM | | | | | PDT | | + + + + + | Temperature | - | - | | + + + + + | Respiratory Rate | 16 | 02/04/2013 11:10 AM | | | | | PDT | | + + + + + | Oxygen Saturation | - | - | | + + + + + | Inhaled Oxygen | - | - | | | Concentration | | | | + + + + + | Weight | 100.3 kg (221 lb 3.2 | 02/04/2013 11:10 AM | | | | oz) | PDT | | + + + + + | Height | - | - | | + + + + + | Body Mass Index | 32.67 | 12/04/2012 8:58 AM | | | | | PDT | | + + + + + documented in this encounter Progress Notes Omer Ling PA - 02/04/2013 11:08 AM PDT Subjective: Patient ID: Duane Vital is a 67 y.o. male. HPI last office visit was: 01/01/2013 date of polysomnography: 12/15/2012 AHI: 23.6 RDI: 40.3 O2%: 85% with 1.1 minutes below 88% Machine type: ResMed S9 with nasal pillows obtained from: [facility] pressure: 5-20 cm 95%: 8.9 cm maxium: 10.3 cm Nights using CPAP: average usage (all nights): 5:39 average usage (nights used): 5:50 AHI: 0.4 Duane comes in for CPAP compliance. He continues to wear his CPAP on a regular basis for the duration of his sleep. His only problem has been with some leaks during two nights, bu t after tightening his straps the leaks were eliminated. In spite of doing so well with his compliance, he has not noticed any improvement in his energy or daytime sleepiness. I have discussed the download in detail. This shows that his sleep apnea is well controlle d, with an AHI of 0.4. It also shows that his leaks are well controlled. It shows that he is wearing his CPAP >4 hours for 87% of the nights during the last 33 nights. Review of Systems Objective: Physical Exam Assessment: Problem #1: OBSTRUCTIVE SLEEP APNEA (327.23) This is well controlled with CPAP. His CPAP compliance is going well. Plan: He is to continue with CPAP indefinitely. He is wearing his CPAP >4 hours for 87% of the n ights during the last 33 nights. I will follow up again in 2 months, sooner prn. At that time we will reassess with all filiberto ropiate paperwork. Fifteen minutes were spent [id number], with the majority of time spent in counseling. mOer Ling PA-C cc: Star Doll MD documented in this enco unter Miscellaneous Notes Miscellaneous - ONBASE ELSIE DESIR - 02/04/2013 12:00 AM PDT documented in this encounter Plan of Treatment Not on filedocumented as of this encounter Visit Diagnoses + + | Diagnosis | + + | YISEL on CPAP - Primary Obstructive sleep apnea (adult) (pediatric) | + + documented in this encounter"
--- OUTSIDE RECORDS SUMMARY | ~2019-12-23 | XMS | Encounter Summary ---
Demographics + + + | Address | [address] | | | [place] [address] | + + + | Home Phone | | + + + | Preferred Language | Unknown | + + + | Marital Status | | + + + | Restoration Affiliation | Unknown | + + + [...] [place] | | | | | [address] | | + + + + + | Parth Vital | ECON | Unknown | | + + + + + Care Team Providers + +------+ + | Care Gatehouse Attendant Name | Role | Phone | + +------+ + | Star Doll MD | PCP | | + +------+ + Reason for Visit +--------+ + | Reason | Comments | +--------+ + | Apnea | | +--------+ + Encounter Details +--------+---------+ + + + | Date | Type | Department | Care Team | Description | +--------+---------+ + + + | 01/01/ | Office | [facility] | Omer Ling PA | YISEL on CPAP (Primary | | 2012 | Visit | SLEEP DISORDER [address] | [address] | Dx) | | | | [address] | [place] | | | | | [place] [address] | [address] | | | | | [phone] | | | +--------+---------+ + + + [...] + + + | Blood Pressure | 146/64 | 01/01/2013 10:07 AM | | | | | PDT | | + + + + + | Pulse | 60 | 01/01/2013 10:07 AM | | | | | PDT | | + + + + + | Temperature | - | - | | + + + + + | Respiratory Rate | 16 | 01/01/2013 10:07 AM | | | | | PDT | | + + + + + | Oxygen Saturation | - | - | | + + + + + | Inhaled Oxygen | - | - | | | Concentration | | | | + + + + + | Weight | 103.3 kg (227 lb | 01/01/2013 10:07 AM | | | | 11.2 oz) | PDT | | + + + + + | Height | - | - | | + + + + + | Body Mass Index | 33.63 | 12/04/2012 8:58 AM | | | | | PDT | | + + + + + documented in this encounter Progress Notes Omer Ling PA - 01/01/2013 10:04 AM PDT Subjective: Patient ID: Duane Vital is a 67 y.o. male. HPI last office visit was: 12/30/2012 date of polysomnography: 12/15/2012 AHI: 23.6 RDI: 40.3 O2%: 85% with 1.1 minutes below 88% Machine type: ResMed S9 with nasal pillows obtained from: [facility] pressure: 5-20 cm 95%: 8.3 cm maxium: 9.3 cm Nights using CPAP: / average usage (all nights): 7:24 average usage (nights used): 7:24 AHI: 0.7 Duane comes in for CPAP compliance. He has worn his CPAP each of the last two nights for the duration of the night. He has not had any problem adjusting to the pressure or his mas k. His only challenges have been that he has been belching and feeling a little bloated in the morning and later in the day since he started the CPAP. He has also been sweating durin g his sleep each of the last two nights. We went through each of the settings on the CPAP, to ensure that there is a good understand ing of how to make changes to temperature, humidity and/or the ramp. He is now comfortable making adjustments to the settings, if necessary. I increased his humidity from 1.0 to 3.0 to help with his dry nose. I have discussed the download in detail. This shows that his sleep apnea is well controlle d, with an AHI of 0.7. It also shows that his leaks are well controlled. Review of Systems Objective: Physical Exam Assessment: Problem #1: OBSTRUCTIVE SLEEP APNEA (327.23) This is well controlled with CPAP. His CPAP compliance is going well, but he has been swal lowing air, which is causing him to feel bloated. Plan: He is to continue with CPAP indefinitely. I have recommended that he wear his CPAP while w atching television to help with his bloating and belching. I will follow up again in 1 month, sooner prn. Thirty minutes were spent [id number], wit h the majority of time spent in counseling. Omer Ling PA-C cc: Star Doll MD documented in this enco unter Miscellaneous Notes Miscellaneous - EDITH QUANJANEY - 01/01/2013 12:00 AM PDT documented in this encounter Plan of Treatment Not on filedocumented as of this encounter Visit Diagnoses + + | Diagnosis | + + | YISEL on CPAP - Primary Obstructive sleep apnea (adult) (pediatric) | + + documented in this encounter"
--- OUTSIDE RECORDS SUMMARY | ~2019-12-23 | XMS | Encounter Summary ---
Demographics + + + | Address | [address] | | | [place] [address] | + + + | Home Phone | | + + + | Preferred Language | Unknown | + + + | Marital Status | | + + + | Pentecostal Affiliation | Unknown | + + + | Race | Unknown | + + + | Ethnic Group | Unknown | + + + Author + + + | Author | [facility] | | | and [place] | + + + | Organization | [facility] | | | and [...] [place] | | | | | [address] | | + + + + + | Parth Vital | ECON | Unknown | | + + + + + Care Team Providers + +------+ + | Care Fuels Sales Representative Name | Role | Phone | + +------+ + | Star Doll MD | PCP | | + +------+ + Encounter Details +--------+ + + + + | Date | Type | Department | Care Team | Description | +--------+ + + + + | 09/10/ | Orders Only | [facility] | Conversion | | | 2016 | | NEPRHOLOGY [place] | Transaction, | | | | | [address] | Provider Unknown | | | | | [address] [place], [place] | | | | | | [address] | (Fax) | | | | | [phone] | | | +--------+ + + + [...] | IRON AND IRON | Routin | 09/11/2015 | | Results for this | | BINDING CAPACITY | e | 12:00 AM | | procedure are in the | | | | PDT | | results section. | + +--------+ + + + | URINALYSIS WITH | Routin | 09/11/2015 | | Results for this | | MICROSCOPIC WITH | e | 12:00 AM | | procedure are in the | | CULTURE IF INDICATED | | PDT | | results section. | + +--------+ + + + | URINALYSIS, REFLEX | Routin | 09/11/2015 | | | | MICROSCOPIC AND/OR | e | 12:00 AM | | | | CULTURE | | PDT | | | + +--------+ + + + | PARATHYROID HORMONE, | Routin | 09/11/2015 | | Results for this | | INTACT AND CALCIUM | e | 12:00 AM | | procedure are in the | | | | PDT | | results section. | + +--------+ + + + | HEMOGLOBIN AND | Routin | 09/11/2015 | | Results for this | | HEMATOCRIT | e | 12:00 AM | | procedure are in the | | | | PDT | | results section. | + +--------+ + + + | PROTEIN/CREATININE | Routin | 09/11/2015 | | Results for this | | RATIO, URINE | e | 12:00 AM | | procedure are in the | | | | PDT | | results section. | + +--------+ + + + | MAGNESIUM | Routin | 09/11/2015 | | Results for this | | | e | 12:00 AM | | procedure are in the | | | | PDT | | results section. | + +--------+ + + + | FERRITIN | Routin | 09/11/2015 | | Results for this | | | e | 12:00 AM | | procedure are in the | | | | PDT | | results section. | + +--------+ + + + | RENAL FUNCTION PANEL | Routin | 09/11/2015 | | Results for this | | | e | 12:00 AM | | procedure are in the | | | | PDT | | results section. | + +--------+ + + + documented in this encounter Results Hemoglobin and Hematocrit (09/11/2015 12:00 AM PDT) + + + + [...] + + + + | Hematocrit, | 31.2 (A) | 41 - 50 % | [...] Urinalysis with Microscopic with Culture if Indicated (09/11/2015 12:00 AM PDT) + + + + [...] + + + | Spec Grav, | 1.017 | | EXTERNAL | | | Fluid [...] + | pH, Urine | 6 | | EXTERNAL | | | | | | LAB | | + + + + + + | Blood, | PositiveComment: 10 | | EXTERNAL | | | Urine | | | LAB | | + + + + + + | Ketones | negative | | EXTERNAL | | | | | | LAB | | + + + + + + | Bilirubin, | Negative | | EXTERNAL | | | Urine | | | LAB | | + + + + + + | Glucose, | TraceComment: 1000 | | EXTERNAL | | | [...] + + + + | Epithelial | negative | | EXTERNAL | | | Cells [...] + + Urinalysis, Reflex Microscopic and/or Culture (09/11/2015 12:00 AM PDT) + +-------+ + + + | Component | Value | Ref Range | Performed | Pathologist | | | | | At | Signature | + +-------+ + + + | Color | | | EXTERNAL | | | | | | LAB | | + +-------+ + + + | Clarity, | | | EXTERNAL | | | Urine | | | LAB | | + +-------+ + + + | Spec Grav, | | | EXTERNAL | | | Fluid | | | LAB | | + +-------+ + + + | Leukocyte | | | EXTERNAL | | | Esterase, | | | LAB | | | Urine | | | | | + +-------+ + + + | Nitrite, | | | EXTERNAL | | | Urine | | | LAB | | + +-------+ + + + | Urobilinoge | | | EXTERNAL | | | n, Urine | | | LAB | | + +-------+ + + + | Total | | | EXTERNAL | | | Protein | | | LAB | | + +-------+ + + + | Blood, | | | EXTERNAL | | | Urine | | | LAB | | + +-------+ + + + | Ketones | | | EXTERNAL | | | | | | LAB | | + +-------+ + + + | Bilirubin, | | | EXTERNAL | | | Urine | | | LAB | | + +-------+ + + + | Glucose, | | | EXTERNAL | | | Urine [...] + + Iron and Iron Binding Capacity (09/11/2015 12:00 AM PDT) + +-------+ + + + | Component | Value | Ref Range | Performed | Pathologist | | | | | At | Signature | + +-------+ + + + | Iron | 63.05 | 37 - 160 | EXTERNAL | | | | | | LAB | | + +-------+ + + + | Iron | 24.3 | 20 - 55 | EXTERNAL | [...] + + Parathyroid Hormone, Intact and Calcium (09/11/2015 12:00 AM PDT) + +-------+ + + + | Component | Value | Ref Range | Performed | Pathologist | | | | | At | Signature | + +-------+ + + + | PTH Intact | 30.49 | 15 - 65 | EXTERNAL | | | | | | LAB | | + +-------+ + + + | Calcium | 9.7 [...] + +---------+ + + Protein/Creatinine Ratio, Urine (09/11/2015 12:00 AM PDT) + + + + + + | Component | Value | Ref Range | Performed | Pathologist | | | | | At | Signature | + + + + + + | Protein/Cre | 3871.3 (A) | 0 - 150 | EXTERNAL [...] | | + +---------+ + + Magnesium (09/11/2015 12:00 AM PDT) + +-------+ + + [...] | | + +---------+ + + Ferritin (09/11/2015 12:00 AM PDT) + + + + + + | Component | Value | Ref Range | Performed | Pathologist | | | | | At | Signature | + + + + + + | Ferritin, | 454.3 (A) | 30 - 400 ng/mL | [...] + +---------+ + + Renal Function Panel (09/11/2015 12:00 AM PDT) + + + + + + | Component | Value | Ref Range | Performed | Pathologist | | | | | At | Signature | + + + + + + | Glucose, | 300 (A) | 70 - 100 mg/dL | EXTERNAL | | | Fasting | | | LAB | | + + + + + + | BUN | 60 (A) | 6 - 23 mg/dL | EXTERNAL | | | | | | LAB | | + + + + + + | Creatinine | 5.58 (A) | 0.70 - 1.18 | EXTERNAL [...] + + + | Anion Gap | 15.8 | 7 - 21 mmol/L | EXTERNAL [...] + + + + | BUN/Creatin | 10.8 | 6.0 - 28.6 | EXTERNAL | [...]
--- OUTSIDE RECORDS SUMMARY | ~2019-12-23 | XMS | Encounter Summary ---
Demographics + + + | Address | [address] | | | [place] [address] | + + + | Home Phone [...] Author | [facility] [...] [address] | | | | | [address] | | + + + + + | Parth Vital | ECON | Unknown | | + + + + + Care Team Providers + +------+ + | Care Process Plant Operator Name | Role | Phone | + +------+ + | Star Doll MD | PCP | | + +------+ + Encounter Details +--------+ + + + + | Date | Type | Department | Care Team | Description | +--------+ + + + + | 03/03/ | Hospital | [facility] | Bret Oro MD | Unknown cause of | | 2016 - | Encounter | [facility] | [address] | injury; Congestive | | | | CARE FLOOR [address] | [place] [address] | heart failure, | | 03/15/ | | [address] | [phone] | unspecified | | 2015 | | [place], [place] | | congestive heart | | | | [address] | | failure chronicity, | | | | [phone] | | unspecified | | | | | | congestive heart | | | | | | failure type ([facility]); | | | | | | Renal failure; ESRD | | | | | | (end stage renal | | | | | | disease) ([facility]); | | | | | | NSTEMI (non-ST | | | | | | elevated myocardial | | | | | | infarction) ([facility]) | +--------+ + + + + Social [...] + + + | Blood Pressure | 110/55 | 03/15/2016 4:00 PM | | | | | PDT | | + + + + + | Pulse | 73 | 03/15/2016 4:00 PM | | | | | PDT | | + + + + + | Temperature | 37.3 C (99.1 F) | 03/15/2016 4:00 PM | | | | | PDT | | + + + + + | Respiratory Rate | 18 | 03/15/2016 4:00 PM | | | | | PDT | | + + + + + | Oxygen Saturation | - | - | | + + + + + | Inhaled Oxygen | - | - | | | Concentration | | | | + + + + + | Weight | 92.2 kg (203 lb 4.2 | 03/15/2016 4:00 PM | | | | oz) | PDT | | + + + + + | Height | 175.3 cm (5' 9") | 03/15/2016 4:00 PM | | | | | PDT | | + + + + + | Body Mass Index | 30.02 | 03/15/2016 4:00 PM | | | | | PDT | | + + + + + documented in this encounter Discharge Summaries Brianna Jarvis MD - 03/15/2016 3:51 PM PDT Discharge Summaries by Brianna Hernandez MD at 03/15/16 0204 Author: Brianna Hernandez MD Service: Hospitalist Author Type: Physician Filed: 03/18/16 0923 Date of Service: 03/15/16 799 Status: Signed Whitesmith: Brianna Hernandez MD (Physician) Related Notes: Original Note by Brianna Hernandez MD (Physician) filed at 03/17/16 2139 [facility] Service: Hospitalist Physician Discharge Summary Patient ID: Brianna Vital [id number] y.o. Admit date: 03/03/2016 Discharge date: 03/15/2016 Admitting Physician: Bret Oro MD Discharge Physician: Brianna Hernandez MD Consultants: Treatment Team: Consulting Physician: See Dangelo MD Consulting Physician: Efrain Navarro MD Consulting Physician: Peter Christianson MD Admitting Provider: Bret Oro MD Primary Discharge Diagnoses: Principal Problem: NSTEMI (non-ST elevated myocardial infarction) ([facility]) Active Problems: Type 2 diabetes mellitus with diabetic nephropathy ([facility]) Obesity Anemia of chronic renal failure, stage 5 ([facility]) Moderate aortic stenosis Aortic stenosis Acute diastolic congestive heart failure (HCC) ESRD (end stage renal disease) ([facility]) Difficulty in walking Debility, unspecified 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 (H CC) Paroxysmal atrial fibrillation ([facility]) HFrEF (heart failure with reduced ejection fraction) ([facility]) ADHF (acute decompensated heart failure) (HCC) Coronary artery disease involving [place] coronary artery of [place] heart S/P PTCA (percutaneous transluminal coronary angioplasty) Pressure ulcer, stage 2 Cardiomyopathy, dilated (HCC) Resolved Problems: Acute respiratory failure with hypoxia (HCC) HPI and Hospital Course: History of Present Illness: " 70-year-old male with past medical history of chronic kidney disease stage V, not on dial ysis yet, severe aortic stenosis, hypertension, diabetes mellitus, obesity, who presented wi th shortness of breath since yesterday evening, more on lying down, getting progressively wo rse and at 4 a.m. was worse enough that he presented to an outside facility where he was fou nd to have x-ray changes of pulmonary edema. Troponin positive at 0.37 and high BNP. Patient was given some questionable dose of Lasix and then transferred here. Currently patient denies any chest pain, shortness of breath is somewhat better. Has made p robably 50 cc of urine since yesterday night. Had some nausea. At presentation, but not now. No vomiting, abdominal pain or diarrhea. Repeat troponin in the ER here came back positive to 1.8. BNP of 3200. Of note, patient had a recent admission for fistula placement on Friday where he was found to be bradycardic and hypotensive after procedure and anesthesia and received overall 1 L IV fluid. After that, heart rate was improved. Blood pressure stabilized and patient was disch arged off beta blockers - Coreg. Patient never had any CAD or [place] or an angiogram. "......per admission HP by Dr. Oro The patient was admitted to [facility] with symptoms suggestive of progressive pulmonary edema. H e was evaluated at an outside facility and transferred to [facility] with evidence of a non-ST-debbie vation [place]. Please see Dr. Oro's H and P for presentation detail. He has underlying severe a ortic valve stenosis and stage V renal disease, not yet on dialysis but with maturing AV fis essence. He was evaluated by cardiology on the day of his transfer, March 03, 2016, by Dr. Dangelo. He underwent cardiac catheterization on March 08, 2016, by Dr. Dangelo. Prior to card iac catheterization, he had to be managed with urgent initiation of dialysis. He had tunnele d catheter placement for dialysis under the direction of Dr. Espinosa. Following stabilization from a respiratory standpoint, the patient underwent cardiac catheterization on cardiac cat heterization on March 08, 2016, with 2 drug-eluting stents being placed to D1 and mid LA D by Dr. Dangelo. He underwent second-staged PTCA to the RCA by Dr. Sweet with 2 overlapping d rug-eluting stents on March 13, 2016. He was continued on medical therapy. His respiratory status improved to the point where he was able to be weaned off his BiPAP t herapy. He was confirmed to have severe aortic valve stenosis. However, he was found not to be an open-heart surgical candidate for valve replacement and instead recommendation was mad e for outpatient TAVR therapy once the patient stabilizes from acute hospitalization. His oxygenation status continued to improve. He was eventually weaned off oxygen. He was ev aluated by physical therapy and eventually cleared for discharge back home. He will follow u p closely with cardiology, Dr. Dangelo, as well as [facility] in [place] where the patie nt resides. His discharge labs showed BUN of 42 and creatinine of 6.0 with potassium of 3.7. He will continue to have dialysis in the [place] area as noted under the direction of Dr. Ly. PT evaluated the patient and cleared for d/c home with home PT/OT treatments Past Medical History: Past Medical History Diagnosis Date Hypertension Hyperlipidemia Diabetes mellitus, type 2 ([facility]) 2005 Insulin-requiring, with diabetic Nephropathy, Retinopathy Sleep apnea dx light apnea Chronic kidney disease Stage IV-V Anemia of chronic renal failure 01/24/2012 Acute upper GI bleed 01/18/2014 PUD on EGD, ulcer cauterized Stroke ([facility]) 2010 right surface stroke, residual left hand numbness/tingling Acute diastolic congestive heart failure ([facility]) 03/03/2016 Aortic valve stenosis, severe Vitamin D deficiency Skin cancer NSTEMI (non-ST elevated myocardial infarction) ([facility]) 03/03/2016 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 ([facility]) moderate 3-vessel CAD Paroxysmal atrial fibrillation ([facility]) 03/04/2016 HFrEF (heart failure with reduced ejection fraction) ([facility]) 03/09/2016 ADHF (acute decompensated heart failure) ([facility]) 03/09/2016 Coronary artery disease involving [place] coronary artery of [place] heart S/P PTCA (percutaneous transluminal coronary angioplasty) 03/10/2016 D1 - 2.25X15 mm Xience Alpine MESSI; mid LAD - 3.25X38 mm Xience Alpine MESSI Past Surgical History Procedure Laterality Date Colonoscopy Cataract extraction Bilateral 2004? Esophagogastroduodenoscopy N/A 01/18/2014 Procedure: ESOPHAGOGASTRODUODENOSCOPY; Surgeon: Caitlyn Khan MD; Location: [facility]; Service: Gastroenterology; Laterality: N/A; Av fistula placement Right 03/01/2016 Procedure: AV FISTULA; Surgeon: Vivek Dias MD; Location: [facility]IN OR; Service: Vascul ar; Laterality: Right; brachiocephalic fistula creation Skin cancer excision mid forehead Coronary angioplasty with stent placement 03/10/2016 D1 - 2.25X15 mm Xience Alpine MESSI; mid LAD - 3.25X38 mm Xience Alpine MESSI Discharged Condition: Stable for discharge as stated above. Significant Diagnostic Studies: Cl Stent Drug Eluting Coronary 03/15/2016 DATE OF SERVICE March 13, 2016 PROCEDURE 1. Conscious sedation. 2. Ultrasound-g uided left femoral artery access. 3. Left heart catheterization with simultaneous measuremen t of the left ventricular and aortic pressures. 4. Selective right coronary artery angiog dipika. 5. Successful percutaneous transluminal coronary angioplasty and stenting of the mid and proximal right coronary artery using a 2.75 x 23, and 2.5 x 38 mm overlapping Xience drug-eluting stents, post-dilated using a 2.5 and a 3 Noncompliant balloons. 6. Left fem oral artery angiogram. 7. Failed Perclose closure of the left common femoral artery, hemosta sis achieved using manual compression. INDICATIONS Non-ST elevation myocardial infarctio n. HISTORY OF PRESENT ILLNESS This is a 70-year-old male with a history of severe aortic st enosis, hypertension, hyperlipidemia, diabetes mellitus type 2, end-stage renal disease curr ently on hemodialysis, who was admitted with non-ST elevation myocardial infarction. Coronar y angiogram showed 3-vessel coronary artery disease with severe disease of the left anterior descending artery and first diagonal, and severe disease of the right coronary artery, mode rate disease of the left circumflex artery. Initially the patient was evaluated for cardiac surgery. He was felt to be at a high risk for surgery. Subsequently the patient had staged p ercutaneous coronary intervention of the left anterior descending artery and the first diago nal bifurcating drug-eluting stents on March 10, 2016. The patient is brought for staged PC I of the right coronary artery. The patient is being followed by Dr. Dangelo, with a plan for a referral for TAVR once coronary vascularization is done. DESCRIPTION OF PROCEDURE The marlene ent was brought to the cardiac catheterization laboratory in a fasting state. After informed consent was obtained, the patient was prepped and draped in the usual sterile fashion. The patient had severe tortuosity of the iliac arteries on the right more than the left. Based o n iliac angiogram done March 10, 2016. We decided to go from the left side. Lidocaine 2% wa s used for local anesthesia of the left groin. The left femoral artery Sonosite ultrasound w as used to visualize the left femoral artery. Subsequently the left femoral artery was acces sed using a micropuncture needle. A 6-Filipino sheath was placed into the left femoral artery without difficulty. Subsequently the patient was given a bolus of Angiomax. A 6-Filipino JR4 guiding catheter was advanced over the guidewire. Incidentally the FR4 guiding catheter went into the left ventricle. Since the patient has severe aortic stenosis and the catheter went easily incidentally, I wanted to assure severe aortic stenosis as it is a surprise the cath eter would go so easily. Subsequently an Exchange length wire was advanced into the left katt tricle. The FR4 guiding catheter was removed. A 6-Filipino [place] (double-lumen pigtail) cat heter was advanced into the left ventricle. Simultaneous measurement of the left ventricular and aortic pressures were obtained which showed severe aortic stenosis with a mean gradient of 39.9 mmHg. Pullback pressures were obtained which showed good correlation and accurate m easurements as the 2 pressures were equal after pullback. The ACT was checked and we found ACT still less than 200 which is also surprising. We gave the patient an additional bolus of Angiomax. Both were renally adjusted doses. We have chosen Angiomax as we had difficulty re aching the target ACT using heparin during his last intervention on March 10, 2016, with th e ACT not therapeutic after giving a total of 20,000 of heparin. After the second bolus ACT went up to 331. A 6-Filipino JR4 guiding catheter was used for selective engagement of the ri ght coronary artery, and angiogram was obtained. Subsequently a BMW wire was advanced into t he distal right coronary artery. There is a long lesion involving the proximal and mid-right coronary artery. A 2 x 30 mm Emerge Compliant balloon was advanced and inflated, starting i n the mid-right coronary artery, starting at the distal lesion, and inflated at 6 atmosphere s for 10 seconds. Subsequently the pulled was pulled to the proximal right coronary artery a nd inflated at 6 atmospheres for 16 seconds. Subsequently a 2.5 x 38 mm Xience Alpine drug- eluting stent was advanced. Unfortunately we were not able to advance the stent beyond the p roximal right coronary artery. The stent was removed. A 2.5 x 20 mm Noncompliant Memorado bal loon was advanced and inflated in the mid-right coronary artery at 12 atmospheres for 14 sec onds, and then pulled to the proximal right coronary artery and inflated at 12 atmospheres f or 18 seconds. Subsequently the 2.5 x 38 mm Xience Alpine drug-eluting stent was advanced ag ain, and with some difficulty we were able to deliver the stent to the target area, covering the lesion in the mid-right coronary artery. The stent was deployed at 11 atmospheres for 2 3 seconds. Subsequently, the stent balloon was removed and a 2.5 x 15 mm Noncompliant Quantu m balloon was advanced and used for post-dilation through the entire length of the stent, st arting distally at 14 atmospheres for 21 seconds, 18 atmospheres for 12 seconds, 18 atmosphe res for 16 seconds. Subsequently the balloon was pulled to the proximal right coronary ana ry and angiogram was obtained with the balloon assisting in evaluation of the proximal right coronary artery lesion. Subsequently a 2.75 x 23 mm Xience Alpine drug-eluting stent was ad vanced and deployed in the proximal right coronary artery overlapping distally with the prev ious stent. The stent was deployed at 10 atmospheres for 15 seconds. Subsequently the stent balloon was advanced into the overlap area and inflated at 10 atmospheres for 14 seconds. Matthew bsequently a 3 x 20 mm Noncompliant Trek balloon was advanced and used for post-dilation wit hin the stent and at the overlap area between the 2 stents. The balloon was inflated at 12 a tmospheres for 11 seconds, 14 atmospheres for 16 seconds, and 12 atmospheres for 12 seconds. Subsequently angiogram was obtained, which showed still there is an area of waist and unde r expansion. The balloon was advanced again and inflated at 20 atmospheres for 21 seconds. S ubsequently, post intervention angiogram was obtained which showed excellent results, with r eduction of degree of stenosis from 95% in the mid-right coronary artery down to 0% down fro m 75% to 80%. Uci-kr-njdqzcca right coronary artery down to 0% with TIMI3 flow. There is no evidence of dissection or perforation. All catheters and guidewires were removed. Left fem oral artery angiogram was obtained which showed the puncture site above the bifurcation. The re is mild disease of the left common femoral artery. Subsequently a Perclose closure device was advanced and deployed. Unfortunately after deployment the suture actually got torn and came out. We immediately held manual pressure. A FemoStop was put in place in the left groin with achievement of hemostasis. The patient tolerated the procedure well without complicati ons. TOTAL CONTRAST Isovue 62 mL. RESULTS LEFT HEART CATHETERIZATION WITH SIMULTANEOUS AO RTIC AND LEFT VENTRICULAR PRESSURES 1. Left ventricular systolic pressure 148. 2. Left ventr icular end-diastolic pressure 28. 3. Aortic pressure 102/51. Heart rate 54. 4. Rcag-kn-mcot gradient 46 mmHg. 5. Mean gradient 39.9 mmHg, indicating severe aortic stenosis. RIGHT BOYD NARY ARTERY ANGIOGRAM The right coronary artery is severely diffusely diseased in a long seg ment of the proximal and mid-segments. Proximally in the range of 75% to 80%, and in the mid portion with areas in the range of 80%, and areas in range of 90% to 95%. Mild disease of th e distal right coronary artery. IMPRESSION 1. Severe aortic stenosis with a mean gradient o f 39.9 mmHg, and wstq-nq-xvbv gradient of 46 mmHg. 2. Severe proximal and mid-right coron carol artery disease. 3. Successful percutaneous transluminal coronary angioplasty and stentin g of the proximal and mid-right coronary artery using a 2.75 x 23, and a 2.5 x 38 mm o verlapping Xience drug-eluting stent, post-dilated using a 3 and a 2.5 Noncompliant ballo ons. 4. Failed Perclose closure of the left common femoral artery. Hemostasis achieved wi th manual compression and FemoStop. PLAN 1. Continue aspirin, ticagrelor, carvedilol, Atorv astatin. 2. The patient will need to continue ticagrelor for at least 1 year. 3. The patient to be referred for TAVR as an outpatient. Read by LEYLA SWEET MD 03/15/2016 05:04 P Discharge Vitals: Filed Vitals: 03/15/16 1015 03/15/16 1026 03/15/16 1035 03/15/16 1556 BP: 132/69 130/66 134/62 110/55 Pulse: 75 78 75 73 Temp: 97.8 F (36.6 C) 99.1 F (37.3 C) TempSrc: Oral Oral Resp: 18 18 Height: Weight: 92.2 kg (203 lb 4.2 oz) SpO2: 97% 97% 97% 95% Discharge Exam: Physical Exam Constitutional: He is oriented to person, place, and time. He appears well-developed. No di stress. HENT: Head: Normocephalic. Mouth/Throat: Oropharynx is clear and moist. No oropharyngeal exudate. Eyes: Pupils are equal, round, and reactive to light. No scleral icterus. Neck: Normal range of motion. No JVD present. Cardiovascular: Normal rate. No murmur heard. Pulmonary/Chest: Effort normal and breath sounds normal. No respiratory distress. He has no wheezes. Abdomina/Gl: Soft. He exhibits no distension. Obese abdomen ;not tender Musculoskeletal: He exhibits no tenderness. Neurological: He is alert and oriented to person, place, and time. No cranial nerve deficit . Skin: Skin is warm and dry. He is not diaphoretic. There is pallor. Psychiatric: He has a normal mood and affect. Wound #1: ( as part of skin exam :) Classification: Pressure Ulcer Stage 2 Location:buttocks Drainage Amount:None Drainage Type:none Wound Odor After Wound is Cleaned:None Periwound Skin:Erythema Wound Size:.5 (cm) Length and .2 (cm) Width Wound Bed:Moist and Red Wound Exam:open and erythema Wound Infection:none noted Wound was present on admission - yes LABS: Recent Labs Lab 03/15/16 0452 03/14/16 1220 03/13/16 0432 WBC 8.26 8.82 7.41 HGB 8.0* 8.1* 7.5* HCT 24.4* 25.3* 23.2* PLT 206 223 197 Recent Labs Lab 03/15/16 0452 03/14/16 1220 03/13/16 0432 NA 137 137 137 K 3.7 4.1 3.8 CL 99 98* 99 CO2 26 27 27 BUN 42* 36* 43* CREATININE 6.0* 5.1* 5.8* PROT 5.7* -- -- BILITOT 0.5 -- -- ALT 18 -- -- AST 33 -- -- Phosphorus: Recent Labs Lab 03/14/16 1220 PHOS 3.2 Recent Labs Lab 03/14/16 1220 MG 2.2 Disposition: Home under care of the family Follow up: [facility] [employer]- GUSTAVO Tolbert [phone] Fri-Fri 7:30 AM 4:00 PM Call Call for any questions or concerns after your discharge home. [facility] [place] [address] [facility] [phone] Friday, Friday and Friday @ 1:45pm-please have patient arrive FIRST DAY ONLY 03/15/16 @ 1 :30pm for new patient paperwork. Star Doll MD [address] [facility] [address] [place] [address] Schedule an appointment as soon as possible for a visit in 1 week For hospitalization re-evaluation ; Sweta Ly MD [address] [facility] [address] [place] [address] Schedule an appointment as soon as possible for a visit in 3 days For hospitalization re-evaluation ; Fernando Dangelo [address] [place] [id number] Schedule an appointment as soon as possible for a visit in 1 week For hospitalization re-evaluation ; Medication List START taking these medications carvedilol 6.25 MG tablet QTY: 60 tablet Refills: 11 Commonly known as: COREG Take 1 tablet by mouth 2 (two) times daily with meals. Notes to Patient: Take with food ticagrelor 90 MG tablet QTY: 60 tablet Refills: 11 Commonly known as: BRILINTA Take 1 tablet by mouth 2 (two) times daily. CHANGE how you take these medications furosemide 40 MG tablet QTY: 60 tablet Refills: 3 Commonly known as: LASIX Take 2 tablets by mouth daily. Two tablets daily. What changed: - medication strength - how much to take CONTINUE taking these medications aspirin 81 MG tablet Refills: 0 atorvastatin 40 MG tablet Refills: 0 Commonly known as: LIPITOR glucose blood test strip Refills: 0 hydrALAZINE [...] PO Refills: 0 STOP taking these medications amLODIPine 10 MG tablet Commonly known as: NORVASC HYDROcodone-acetaminophen 5-325 MG per tablet Commonly known as: NORCO Where to Get Your Medications You need to case picker these prescriptions. We sent them to a specific pharmacy, so go there to get them. [id number] - [place] - [address] - carvedilol 6.25 MG tablet - furosemide 40 MG tablet - ticagrelor 90 MG tablet [address] [place] [address] Brianna Hernandez MD 03/17/2016 9:39 PM Discharge took more than 35 minutes, to include final examination, discussion of admission, and preparation of prescriptions, instructions for ongoing care, follow up and dictation of summary. documented in thi s encounter Medications at Time of Discharge + [...] documented as of this encounter Progress Notes See Dangelo MD - 03/15/2016 1:39 PM PDTFormatting of this note might be different fro m the original. Progress Notes by See Dangelo MD at 03/15/16 5243 Author: See Dangelo MD Service: Cardiology Author Type: Physician Filed: 03/15/16 1525 Date of Service: 03/15/16 3612 Status: Signed Whitesmith: See Dangelo MD (Physician) [facility] Service: Cardiology Progress Note Hospital Day: LOS: 12 days Post-Op Day: * No surgery found * SUBJECTIVE Patient Summary: 70M followed by Aki Germain D.O., at our [place] office for sev ere aortic stenosis, and Sweta Ly MD for stage IV chronic kidney disease. Because of wo rsening renal function, he had a right brachiocephalic AV fistula created by Dr. Dias on 03/01. After being discharged following that procedure, he was home for a short time, and note d that he had decreased appetite, and felt "bloated". 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 There is no orthopnea or PND. There was no chest pain, pressure or discomfort, no palpitations. He came to the em ergency room. Supplemental oxygen helped the dyspnea. He was given IV Lasix, but urinated on ly a scant amount. His chest x-ray showed evidence of bilateral pulmonary edema. His tropon in was elevated at 1.8, consistent with an acute NSTEMI. His EKG showed only mild anterolate ral ST abnormalities, and frequent unifocal PVCs, which were not present on an EKG 2 days PT A. He has been hemodynamically stable. Cardiac catheterization revealed only moderate ao rtic stenosis by cath criteria, The measured at a falsely low value due to the markedly incr eased cardiac output used in the calculation, and the cardiac output is elevated due to the AV fistula. His repeat echocardiogram is still consistent with severe aortic stenosis, as me asured by the VTI, which is an measurement that is independent of the cardiac output. He als o has moderately severe 3-vessel CAD. He was seen by Jesús Pantoja MD, for consideration o f AVR and coronary bypass, but his STS score was high (10% mortality). He is now on HD. He h ad paroxysmal AFib with his intial HD, spontaneously converted to NSR, and this has not rec urred. He underwent PCI in the LAD and diagonal branch 03/10/16 (proximal first diagonal using 2.25 X15 mm Xience Alpine MESSI, mid LAD using 3.25X38 mm Xience Alpine MESSI, postdilated using 3.25 noncompliant balloons, and kissing balloons of LAD and diagonal bifurcation). The RCA raymond altamirano underwent PCI yesterday. There is no report available yet, but I reviewed the images, and it appears that he had 2 overlapping stents placed within the proximal to mid RCA. Events Overnight: No complaints. He denies chest pain, SOB. Awaiting D/C. Past Medical History Diagnosis Date Hypertension Hyperlipidemia Diabetes mellitus, type 2 ([facility]) 2005 Insulin-requiring, with diabetic Nephropathy, Retinopathy Sleep apnea dx light apnea Chronic kidney disease Stage IV-V Anemia of chronic renal failure 01/24/2012 Acute upper GI bleed 01/18/2014 PUD on EGD, ulcer cauterized Stroke ([facility]) 2010 right surface stroke, residual left hand numbness/tingling Acute diastolic congestive heart failure ([facility]) 03/03/2016 Aortic valve stenosis, severe Vitamin D deficiency Skin cancer NSTEMI (non-ST elevated myocardial infarction) ([facility]) 03/03/2016 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 ([facility]) moderate 3-vessel CAD Paroxysmal atrial fibrillation ([facility]) 03/04/2016 HFrEF (heart failure with reduced ejection fraction) ([facility]) 03/09/2016 ADHF (acute decompensated heart failure) ([facility]) 03/09/2016 Coronary artery disease involving [place] coronary artery of [place] heart S/P PTCA (percutaneous transluminal coronary angioplasty) 03/10/2016 D1 - 2.25X15 mm Xience Alpine MESSI; mid LAD - 3.25X38 mm Xience Alpine MESSI Past Surgical History Procedure Laterality Date Colonoscopy Cataract extraction Bilateral 2004? Esophagogastroduodenoscopy N/A 01/18/2014 Procedure: ESOPHAGOGASTRODUODENOSCOPY; Surgeon: Caitlyn Khan MD; Location: [facility]; Service: Gastroenterology; Laterality: N/A; Av fistula placement Right 03/01/2016 Procedure: AV FISTULA; Surgeon: Vivek Dias MD; Location: [facility]; Service: Vascul ar; Laterality: Right; brachiocephalic fistula creation Skin cancer excision mid forehead Coronary angioplasty with stent placement 03/10/2016 D1 - 2.25X15 mm Xience Alpine MESSI; mid LAD - 3.25X38 mm Xience Alpine MESSI Allergies Allergen Reactions Penicillins Rash Reacted with a rash as a child. Has not had penicillins since. Gemfibrozil Nausea and Vomiting Questran [Cholestyramine] Nausea and Vomiting Scheduled Medications aspirin 81 mg Oral Daily with breakfast atorvastatin 80 mg Oral Nightly carvedilol 6.25 mg Oral BID WC cholecalciferol 1,000 Units Oral QPM diphenhydrAMINE 50 mg Oral Once diphenhydrAMINE 50 mg Oral Once famotidine 20 mg Oral Once famotidine 20 mg Oral Once heparin (porcine) 1,000 Units Intracatheter Once per day on Fri heparin (porcine) 500 Units Intracatheter Once per day on Fri heparin (porcine) Intracatheter Daily hydrALAZINE 10 mg Oral TID insulin glargine 60 Units Subcutaneous QAM insulin lispro (human) 0-3 Units Subcutaneous Nightly insulin lispro (human) 0-6 Units Subcutaneous TID AC lidocaine 10 mL Infiltration Once lidocaine 20 mL Intradermal Once pantoprazole 40 mg Intravenous BID sevelamer 1,600 mg Oral TID WC sitagliptan 25 mg Oral Daily terazosin 10 mg Oral Nightly ticagrelor 90 mg Oral BID Continuous Infusions dextrose PRN Medications acetaminophen OR acetaminophen, dextrose, dextrose, dextrose, glucagon, glucagon, HYDRO codone-acetaminophen OR HYDROcodone-acetaminophen, nitroGLYCERIN, ondansetron OR ond ansetron, polyethylene glycol, zolpidem OBJECTIVE Vital Signs: BP 134/62 mmHg | Pulse 75 | Temp(Src) 97.8 F (36.6 C) (Oral) | Resp 18 | Ht 1.753 m (5' 9") | Wt 92.2 kg (203 lb 4.2 oz) | BMI 30.00 kg/m2 | SpO2 97% Temp: [97.7 F (36.5 C)-98.1 F (36.7 C)] 97.8 F (36.6 C) (03/15 1035) BP: (113-154)/(58-71) 134/62 mmHg (03/15 1035) Heart Rate: [64-78] 75 (03/15 1035) Resp: [18-24] 18 (03/15 1035) SpO2: [94 %-98 %] 97 % (03/15 1035) Weight: [91 kg (200 lb 9.9 oz)-94.7 kg (208 lb 12.4 oz)] 92.2 kg (203 lb 4.2 oz) (03/15) TELEMETRY: NSR I/O: 1585 / 250, net -5217 since admission GENERAL: Morbidly obese, well developed, well nourished elderly male, in no dis tress. Appears older than his stated age. On BiPAP. HEENT: Normocephalic, atraumatic. EYES: Well healed iridectomies. PERRL, sclerae anicteric, no xanthelsasmas MOUTH: Oral mucosae moist, dentition adequate, no lesions noted NECK:Tunneled RIJV HD catheter. No JVD, lymphadenopathy, thyromegaly, bruits. Lisa tid pulses are 1+ bilaterally and delayed LUNGS: Mildly, diffusely decreased breath sounds, with no wheezing, rales, or rhonchi, re spirations unlabored HEART: Nondisplaced PMI, regular rate and rhythm, S1 normal, S2 diminished but faintly au dible. 2-3/6 late peaking systolic crescendo decrescendo murmur at the base, radiating to the left sternal border. No rubs or gallops noted. ABDOMEN: Obese. Soft, nontender, no organomegaly, masses or bruits. Bowel sounds are no rmal in all 4 quadrants. The abdominal aortic pulsation is not palpable. EXTREMITIES: 1+ ankle edema bilaterally. Radial pulses 2+ on the left, nonpalpable on the right, where a brachiocephalic AV fistula surgical site is bandaged, but has a palpable thr ill. DP and PT pulses are 1+ bilaterally. SKIN: Warm and dry, capillary refill is normal, no lesions. Tinea uguis of the toenails. NEUROLOGIC: Awake, alert and oriented x 3. No focal motor deficits. PSYCHIATRIC: Appropriate, affect appears normal DATA ECHO (03/05/16): 1. This was a technically difficult study with suboptimal views. 2. Overall left ventricular systolic function is moderate-severely impaired with, an EF bet ween 30 - 35 %. 3. The right ventricle is mildly enlarged, but right ventricular systolic function is meseret l. 4. The left atrium is markedly dilated. 5. There is severe aortic stenosis present. 6. There is moderate pulmonary hypertension. The right ventricular systolic pressure (pul monary artery systolic pressure), as measured by Doppler, is 55 mm Hg. CBC: Lab Results Component Value Date WBC 8.26 03/15/2016 RBC 2.93* 03/15/2016 HGB 8.0* 03/15/2016 HGB 9.9* 08/28/2015 HCT 24.4* 03/15/2016 MCV 83.2 03/15/2016 MCH 27.2 03/15/2016 MCHC 32.6 03/15/2016 RDW 42.4 03/15/2016 PLT 206 03/15/2016 MPV 9.3 03/15/2016 DIFFTYPE MANUAL 03/11/2016 CMP: Lab Results Component Value Date NA 137 03/15/2016 K 3.7 03/15/2016 CL 99 03/15/2016 CO2 26 03/15/2016 ANIONGAP 16 03/15/2016 GLUF 139* 03/15/2016 BUN 42* 03/15/2016 CREATININE 6.0* 03/15/2016 CREATININE 5.79* 11/22/2015 BCR 7 03/15/2016 CA 8.3* 03/15/2016 CA 9.7 09/11/2015 PROT 5.7* 03/15/2016 ALB 2.4* 03/15/2016 GLOB 3.3 03/15/2016 BILITOT 0.5 03/15/2016 ALP 43 03/15/2016 AST 33 03/15/2016 ALT 18 03/15/2016 EGFR 10* 03/15/2016 LIPID PANEL: TC-113, LDL-42, HDL-41, TG-149 PROBLEM LIST Principal Problem: NSTEMI (non-ST elevated myocardial infarction) ([facility]) Active Problems: Type 2 diabetes mellitus with diabetic nephropathy ([facility]) Obesity Anemia of chronic renal failure, stage 5 ([facility]) Moderate aortic stenosis Aortic stenosis Acute diastolic congestive heart failure ([facility]) ESRD (end stage renal disease) ([facility]) Difficulty in walking Debility, unspecified 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 (H CC) Paroxysmal atrial fibrillation ([facility]) HFrEF (heart failure with reduced ejection fraction) ([facility]) ADHF (acute decompensated heart failure) ([facility]) Coronary artery disease involving [place] coronary artery of [place] heart S/P PTCA (percutaneous transluminal coronary angioplasty) ASSESSMENT & PLAN 1. Acute NSTEMI, Killip class II, hemodynamically stable, with 3-vessel CAD, now s/p PCI/DE S in the 1st diagonal branch, mid LAD and RCA by Dr. Sweet. He has been started on aspirin, Brilinta, Coreg and losartan. CABG/AVR surgery was felt to be of prohibitively high risk. 2. Severe by echocardiography last month, confirmed on a repeat study, with ZEKE 0.97 cm sq, peak transvalvular velocity measured at 4.1 m/s, an indicator of severe . The was calculated as only moderate by cardiac catheterization criteria, but this is because cardiac output was calculated so high (9.3 L/min., likely due to the arteriovenous fistula). In th is case, echocardiographic (VTI) assessment is a more accurate measurement (peak/mean gradie nts 57/39 mm Hg by echo, 40/32 mm Hg on cath). He will be referred for evaluation for TAVR following this hospitalization. 3. Dilated Cardiomyopathy, EF 30-35% on echo, likely mixed ischemic and non-ischemic etiolo gy 4. Stage V chronic kidney disease, right upper extremity brachiocephalic AV fistula created 03/01/16, but it will be sometime before this can be used. He had a tunneled RIJV dialysis a ccess placed, and hemodialysis has been started on this admission. 5. 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 Essential hypertension, controlled 8. Moderate Pulmonary HTN, likely secondary to # 2, 3, 8 7. History of a right CVA, with minimal residual left arm numbness and tingling, but no oth er residual deficits. 8. Mild obstructive sleep apnea, untreated 9. Severe anemia due to chronic kidney disease, no significant change despite large volume removal in HD yesterday. Consider PRBC transfusion if it drops any lower. Erythropoeitin c ould be considered as well. 10. Paroxysmal Atrial Fibrillation with his initial HD session, maintaining NSR since then. 11. Hyperlipidemia, with metabolic syndrome, well controlled Disposition: OK for D/C today from cardiac standpoint on current medications. Continue he modialysis as an outpatient. He can be referred electively to a tertiary center for TAVR fo llowing D/C. I can see him in the office in 2-3 weeks for this purpose. He would prefer to go to [facility] to have it done. Code Status: Full Code See Dangelo MD 03/15/2016 onversion Transacti on, Provider Unknown - 03/15/2016 1:38 PM PDTFormatting of this note might be different fro m the original. Progress Notes by Key Wild RD at 03/15/16 9025 Author: Key Wild RD Service: (none) Author Type: Registered Dietitian Filed: 03/15/16 2186 Date of Service: 03/15/161337 Status: Signed Whitesmith: Key Wild RD (Registered Dietitian) 03/15/16 1338 Subjective Timepoint Follow up (H risk) Pt c/o Pt had just finished HD and was eating a late breakfast. Reported by Patient Fluid / Beverage Intake Liquid Meal Replacement or Supplement Rainer ordered TID. Pt reports he throws away the Ranjan n and doesn't like them because they are too sweet. Cancelled order. Food Intake Amount of Food Pt was eating eggs, toast and a banana this morning. Pt reports he has been eating 3 meals per day and at least 50% of them. Type of Food / Meals Cardiac diet Micronutrient Intake Vitamin Intake D Nutrition-Focused Physical Findings Extremities, Muscles and Bones Trace BLE edema Anthropometrics Weight change Wt is down 3.7 kg since admit. Per I/O's pt is 5.2 L fluid negative. Continue to monitor wt trend. Biochemical data, medical tests, and procedures reviewed Biochemical data, medical tests, and procedures reviewed BG 139 (H)- insulin ordered, BUN 4 2 (H) and Cr 6.0 (H). Recommendations Recommended energy needs Recommend cardiac diabetic diet. Encourage 3 meals per day with pr otein rich foods. Monitor and follow as indicated. Nutritional Risk Nutritional risk Moderate Follow up date 03/20/[address] onver rosie Transaction, Provider Unknown - 03/15/2016 12:58 PM PDT Therapy Progress Note by Kathy Marino PT at 03/15/16 1252 Author: Kathy Marino PT Service: (none) Author Type: Physical Therapist Filed: 03/15/16 0436 Date of Service: 03/15/161257 Status: Signed Whitesmith: Kathy Marino PT (Physical Therapist) 03/15/16 1218 PT Last Visit PT Received On 03/15/16 Reason for Treatment Deconditioning Requires PT Follow Up Yes Precautions Other Precautions fall precautions Other Comments Comments Pt resting in bed and agreeable to PT. Pt states he would like to go home. Pt is A AOx3 and responsive to PT and instrucitons given. Pt demonstrates safe use of 4ww and 4ww wa s adjusted to pt's height. Pt may need some assist at home and will need to use 4ww at all t imes for safety and to build strength, but pt would be safe to d/c home w/family . Pt's spou se will be there and his brother and DEMETRIO will come and stay for 2-3 wks to help prn. Pt woul d benefit from outpatient PT to build strength and safety, as pt states he is scheduled to h ave a surgery in the near future.Vitals at rest 77bpm, 134/62, after activity: 81bpm, 125/59 . Cognition Overall Cognitive Status WFL Orientation Level Oriented Bed Mobility Supine to Sit Standby assist;Verbal instruction Sit to Supine Standby assist Transfers Sit to/from Stand Standby assist;Verbal instruction Bed to/from Chair Standby assist;Verbal instruction Mobility Ambulation Assistance Standby assist;Verbal instruction Maximal Ambulation Distance (feet) 275 Total Ambulation Distance (feet) 300 Distance limited by? Therapist/staff discretion Pattern Alternating;Decreased garret Assistive Device Walker 4 wheeled Balance Balance Yes Standardized Test Physical Mobility Scale 30 /45 (out of 45 points.) Modalities Other Therapy Ed pt on need for use of 4ww to increase safety with amb and to decrease fall risk. Ed pt on how to use 4ww as a seat and how to use brakes safely. Ed pt on need to f/u with outpt PT. Activity Tolerance Activity Tolerance Patient tolerated treatment without report of fatigue Nurse Made Aware GUSTAVO Velasco notified Safety Devices Safety Devices in Place (bed alarm replaced. Call light in reach.) Plan Treatment/Interventions Continue per Primary PT POC Progress Progressing toward goals Recommendation Recommendations Home Assist;OP PT Equipment Recommended Walker 4 wheeled PT Ready for Discharge Yes Recommendation Comments Pt demonstrates improved mobility and would be safe to d/c home w/a ssist. Pt states his brother & DEMETRIO will be coming to stay with them for 2-3 weeks while he r ecovers, to assist prn. Pt would benefit from outpatient PT to build strength, increase safe ty and overall independence. onver rosie Transaction, Provider Unknown - 03/15/2016 10:09 AM PDT Case Management by Jackie Daniel RN at 03/15/16 1009 Author: Jackie Daniel RN Service: (none) Author Type: Registered Nurse Filed: 03/15/16 1514 Date of Service: 03/15/16 1009 Status: Addendum Whitesmith: Jackie Daniel RN (Registered Nurse) Related Notes: Original Note by Jackie Daniel RN (Registered Nurse) filed at 03/15/16 142 0 1200:Tc from [facility] at [facility], they can accept pt, but needs to get insurance authoriza tion first. She will start the process Still waiting for PT notes/recommendations 1400: per PT notes, pt can go home with OP PT and 4WW. Discussed with pt and daugther odalys n, they are in agreement to go home. Need scripts for OP PT/4WW, Lainey will take scripts wi th her.Lainey will transport pt home Also discussed with pt [facility], he is in agreement, faxed referral to [facility] ROHAN Whitaker [phone]. Lainey notified. Notified primary RN Martha Daniel RN koum, Sweta Hollis MD - 03/15/2016 9:04 AM PDTFormatting of this note might be different from th e original. Progress Notes by Sweta Ly MD at 03/15/16903 Author: Sweta Ly MD Service: Nephrology Author Type: Physician Filed: 03/29/161805 Date of Service: 03/15/16903 Status: Signed Whitesmith: Sweta Ly MD (Physician) [facility] Service: Nephrology Progress Note Hospital Problem List: Principal Problem: NSTEMI (non-ST elevated myocardial infarction) ([facility]) Active Problems: Type 2 diabetes mellitus with diabetic nephropathy ([facility]) Anemia of chronic renal failure, stage 5 ([facility]) Obesity Moderate aortic stenosis Aortic stenosis Acute diastolic congestive heart failure ([facility]) ESRD (end stage renal disease) ([facility]) Difficulty in walking Debility, unspecified 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 (H CC) Paroxysmal atrial fibrillation ([facility]) HFrEF (heart failure with reduced ejection fraction) ([facility]) ADHF (acute decompensated heart failure) ([facility]) Coronary artery disease involving [place] coronary artery of [place] heart S/P PTCA (percutaneous transluminal coronary angioplasty) Overview: D1 - 2.25X15 mm Xience Alpine MESSI; mid LAD - 3.25X38 mm Xience Alpine MESSI The patient says that he feels 'ok' today. he denies any cp, sob, abd pain, n/v. his urine output is down. The following portions of the patient's history were reviewed and updated as appropriate: l aboratory data, radiologic studies, allergies, current medications, and problem list. As in History of Present Illness & Assessment below. All the pertinent systems were reviewe d and were otherwise negative. aspirin 81 mg Oral Daily with breakfast atorvastatin 80 mg Oral Nightly carvedilol 6.25 mg Oral BID WC cholecalciferol 1,000 Units Oral QPM diphenhydrAMINE 50 mg Oral Once diphenhydrAMINE 50 mg Oral Once famotidine 20 mg Oral Once famotidine 20 mg Oral Once heparin (porcine) 1,000 Units Intracatheter Once per day on Fri heparin (porcine) 500 Units Intracatheter Once per day on Fri heparin (porcine) Intracatheter Daily hydrALAZINE 10 mg Oral TID insulin glargine 60 Units Subcutaneous QAM insulin lispro (human) 0-3 Units Subcutaneous Nightly insulin lispro (human) 0-6 Units Subcutaneous TID AC lidocaine 10 mL Infiltration Once lidocaine 20 mL Intradermal Once pantoprazole 40 mg Intravenous BID sevelamer 1,600 mg Oral TID WC sitagliptan 25 mg Oral Daily terazosin 10 mg Oral Nightly ticagrelor 90 mg Oral BID dextrose P.E. BP 141/71 mmHg | Pulse 76 | Temp(Src) 97.8 F (36.6 C) (Oral) | Resp 18 | Ht 1.753 m (5' 9") | Wt 94.7 kg (208 lb 12.4 oz) | BMI 30.82 kg/m2 | SpO2 96% General appearance: Pleasant, not in acute distress. Neck: Supple without tracheal deviation or jugular venous distension. Head and ENT: Head is atraumatic. The oropharynx is without erythema or thrush. Eyes: Anicteric. The extraocular muscle movements are normal. Lungs: Good A/E to auscultation bilaterally. There are no wheezes. Heart: Regular rate and rhythm without any rub, gallop. Grade 3 systolic mechanical murmur heard all over the precordium, radiating to axilla & to his back. Abdominal exam: Soft and nontender with normal bowel sounds. Musculoskeletal: No costovertebral angle tenderness bilaterally. Extremities: Warm to touch with 1+ leg edema. There is no cyanosis. Skin: There are no rashes, petechiae, or ecchymosis. Neurological: Awake, alert, and oriented to time, place, and person. Normal gross motor po wer. There is no asterixis. Psychiatric: The patient s behavior is normal. Judgment and thought content are normal. Access: tunneled CVC in right IJ is okay; new right arm AV fistula with good thrill. Lab Results Component Value Date BUN 42* 03/15/2016 CREATININE 6.0* 03/15/2016 EGFR 10* 03/15/2016 NA 137 03/15/2016 K 3.7 03/15/2016 CL 99 03/15/2016 CO2 26 03/15/2016 CA 8.3* 03/15/2016 PHOS 3.2 03/14/2016 MG 2.2 03/14/2016 ALB 2.4* 03/15/2016 HGB 8.0* 03/15/2016 Assessment: Mr. Vital is a 70 y.o. male patient with ESRD. Admitted with ADHF. Had PCI's 03/10/16; then again on 03/13/16. RENAL FUNCTION: Small RKF BLOOD PRESSURE: ok ELECTROLYTES: acceptable ALBUMIN: Severely low ANEMIA: moderate VOLUME STATUS: Relative euvolemia Recommendations: 1. HD today per the submitted orders 2. No IVF need 3. Advise fluid restriction of 1.2 L per 24 hrs 4. Strict I/O & daily weights. 5. Dose all of his meds to his current intermittent HD with a small RKF. 6. Continue to avoid all kinds of nephrotoxins. 7. Target euvolumia with a MAP>75 mmHg as possible. 8. Given his tendency for anasarca: Encourage adequate intake & close dietitian F/U. Encour age ambulation safely. Encourage the adequate use of an incentive spirometer. F/U: Also seen during HD. Feels "great". No cp, sob, abd pain, n/v CVC functioning ok. UF as tolerated I discussed with the primary team the case at the time of this encounter. I spent 35 total minutes today in interviewing & examining the patient, reviewing & updatin g the patient's chart, formulating a plan, in addition to patient education and discussions with the primary/consulting team. SWETA LY MD 03/15/2016 onversion Transa ction, Provider Unknown - 03/15/2016 12:28 AM PDT Nurse Progress Note by Sheila Jurado RN at 03/15/16 0028 Author: Sheila Jurado RN Service: (none) Author Type: Registered Nurse Filed: 03/15/1627 Date of Service: 03/15/1627 Status: Signed Whitesmith: Sheila Jurado RN (Registered Nurse) When palpating most recent catheterization site, small hematoma felt. Pt has some tenderne ss to site. Hematoma was outlined with skin marker. VSS Will continue to monitor closely. Sheila Jurado RN ehr, See Bobo MD - 03/14/2016 7:26 PM PDTFormatting of this note might be different from the o riginal. Progress Notes by See Dangelo MD at 03/14/161925 Author: See Dangelo MD Service: Cardiology Author Type: Physician Filed: 03/14/161932 Date of Service: 03/14/161925 Status: Signed Whitesmith: See Dangelo MD (Physician) [facility] Service: Cardiology Progress Note Hospital Day: LOS: 11 days Post-Op Day: * No surgery found * SUBJECTIVE Patient Summary: 70M followed by Aki Germain D.O., at our [facility] office for sev ere aortic stenosis, and Sweta Ly MD for stage IV chronic kidney disease. Because of wo rsening renal function, he had a right brachiocephalic AV fistula created by Dr. Dias on 03/01. After being discharged following that procedure, he was home for a short time, and note d that he had decreased appetite, and felt "bloated". 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 There is no orthopnea or PND. There was no chest pain, pressure or discomfort, no palpitations. He came to the em ergency room. Supplemental oxygen helped the dyspnea. He was given IV Lasix, but urinated on ly a scant amount. His chest x-ray showed evidence of bilateral pulmonary edema. His tropon in was elevated at 1.8, consistent with an acute NSTEMI. His EKG showed only mild anterolate ral ST abnormalities, and frequent unifocal PVCs, which were not present on an EKG 2 days PT A. He has been hemodynamically stable. Cardiac catheterization revealed only moderate ao rtic stenosis by cath criteria, The measured at a falsely low value due to the markedly incr eased cardiac output used in the calculation, and the cardiac output is elevated due to the AV fistula. His repeat echocardiogram is still consistent with severe aortic stenosis, as me asured by the VTI, which is an measurement that is independent of the cardiac output. He als o has moderately severe 3-vessel CAD. He was seen by Jesús Pantoja MD, for consideration o f AVR and coronary bypass, but his STS score was high (10% mortality). He is now on HD. He h ad paroxysmal AFib with his intial HD, spontaneously converted to NSR, and this has not rec urred. He underwent PCI in the LAD and diagonal branch 03/10/16 (proximal first diagonal using 2.25 X15 mm Xience Alpine MESSI, mid LAD using 3.25X38 mm Xience Alpine MESSI, postdilated using 3.25 noncompliant balloons, and kissing balloons of LAD and diagonal bifurcation). The RCA raymond n underwent PCI yesterday. There is no report available yet, but I reviewed the images, and it appears that he had 2 overlapping stents placed within the proximal to mid RCA. Events Overnight: No complaints. He denies chest pain, SOB. Past Medical History Diagnosis Date Hypertension Hyperlipidemia Diabetes mellitus, type 2 ([facility]) 2005 Insulin-requiring, with diabetic Nephropathy, Retinopathy Sleep apnea dx light apnea Chronic kidney disease Stage IV-V Anemia of chronic renal failure 01/24/2012 Acute upper GI bleed 01/18/2014 PUD on EGD, ulcer cauterized Stroke ([facility]) 2010 right surface stroke, residual left hand numbness/tingling Acute diastolic congestive heart failure ([facility]) 03/03/2016 Aortic valve stenosis, severe Vitamin D deficiency Skin cancer NSTEMI (non-ST elevated myocardial infarction) ([facility]) 03/03/2016 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 ([facility]) moderate 3-vessel CAD Paroxysmal atrial fibrillation ([facility]) 03/04/2016 HFrEF (heart failure with reduced ejection fraction) ([facility]) 03/09/2016 ADHF (acute decompensated heart failure) ([facility]) 03/09/2016 Coronary artery disease involving [place] coronary artery of [place] heart S/P PTCA (percutaneous transluminal coronary angioplasty) 03/10/2016 D1 - 2.25X15 mm Xience Alpine MESSI; mid LAD - 3.25X38 mm Xience Alpine MESSI Past Surgical History Procedure Laterality Date Colonoscopy Cataract extraction Bilateral 2004? Esophagogastroduodenoscopy N/A 01/18/2014 Procedure: ESOPHAGOGASTRODUODENOSCOPY; Surgeon: Caitlyn Khan MD; Location: [facility]; Service: Gastroenterology; Laterality: N/A; Av fistula placement Right 03/01/2016 Procedure: AV FISTULA; Surgeon: Vivek Dias MD; Location: [facility]; Service: Vascul ar; Laterality: Right; brachiocephalic fistula creation Skin cancer excision mid forehead Coronary angioplasty with stent placement 03/10/2016 D1 - 2.25X15 mm Xience Alpine MESSI; mid LAD - 3.25X38 mm Xience Alpine MESSI Allergies Allergen Reactions Penicillins Rash Reacted with a rash as a child. Has not had penicillins since. Gemfibrozil Nausea and Vomiting Questran [Cholestyramine] Nausea and Vomiting Scheduled Medications aspirin 81 mg Oral Daily with breakfast atorvastatin 80 mg Oral Nightly carvedilol 6.25 mg Oral BID WC cholecalciferol 1,000 Units Oral QPM diphenhydrAMINE 50 mg Oral Once diphenhydrAMINE 50 mg Oral Once famotidine 20 mg Oral Once famotidine 20 mg Oral Once heparin (porcine) 1,000 Units Intracatheter Once per day on Fri heparin (porcine) 500 Units Intracatheter Once per day on Fri heparin (porcine) Intracatheter Daily hydrALAZINE 10 mg Oral TID insulin glargine 60 Units Subcutaneous QAM insulin lispro (human) 0-3 Units Subcutaneous Nightly insulin lispro (human) 0-6 Units Subcutaneous TID AC lidocaine 10 mL Infiltration Once lidocaine 20 mL Intradermal Once pantoprazole 40 mg Intravenous BID sevelamer 1,600 mg Oral TID WC sitagliptan 25 mg Oral Daily terazosin 10 mg Oral Nightly ticagrelor 90 mg Oral BID Continuous Infusions dextrose PRN Medications acetaminophen OR acetaminophen, dextrose, dextrose, dextrose, glucagon, glucagon, HYDRO codone-acetaminophen OR HYDROcodone-acetaminophen, nitroGLYCERIN, ondansetron OR ond ansetron, polyethylene glycol, zolpidem OBJECTIVE Vital Signs: BP 113/58 mmHg | Pulse 64 | Temp(Src) 98.1 F (36.7 C) (Oral) | Resp 20 | Ht 1.753 m (5' 9") | Wt 91.8 kg (202 lb 6.1 oz) | BMI 29.87 kg/m2 | SpO2 96% Temp: [97.6 F (36.4 C)-98.4 F (36.9 C)] 98.1 F (36.7 C) (03/14 1604) BP: (108-137)/(58-66) 113/58 mmHg (03/14 1604) Heart Rate: [64-82] 64 (03/14 1604) Resp: [18-20] 20 (03/14 1604) SpO2: [94 %-100 %] 96 % (03/14 1604) Weight: [91.8 kg (202 lb 6.1 oz)] 91.8 kg (202 lb 6.1 oz) (03/14 317) TELEMETRY: NSR I/O: 1999 / 45, net -6537 since admission GENERAL: Morbidly obese, well developed, well nourished elderly male, in no dis tress. Appears older than his stated age. On BiPAP. HEENT: Normocephalic, atraumatic. EYES: Well healed iridectomies. PERRL, sclerae anicteric, no xanthelsasmas MOUTH: Oral mucosae moist, dentition adequate, no lesions noted NECK:Tunneled RIJV HD catheter. No JVD, lymphadenopathy, thyromegaly, bruits. Lisa tid pulses are 1+ bilaterally and delayed LUNGS: Mildly, diffusely decreased breath sounds, with no wheezing, rales, or rhonchi, re spirations unlabored HEART: Nondisplaced PMI, regular rate and rhythm, S1 normal, S2 diminished but faintly au dible. 2-3/6 late peaking systolic crescendo decrescendo murmur at the base, radiating to the left sternal border. No rubs or gallops noted. ABDOMEN: Obese. Soft, nontender, no organomegaly, masses or bruits. Bowel sounds are no rmal in all 4 quadrants. The abdominal aortic pulsation is not palpable. EXTREMITIES: 1+ ankle edema bilaterally. Radial pulses 2+ on the left, nonpalpable on the right, where a brachiocephalic AV fistula surgical site is bandaged, but has a palpable thr ill. DP and PT pulses are 1+ bilaterally. SKIN: Warm and dry, capillary refill is normal, no lesions. Tinea uguis of the toenails. NEUROLOGIC: Awake, alert and oriented x 3. No focal motor deficits. PSYCHIATRIC: Appropriate, affect appears normal DATA ECHO (03/05/16): 1. This was a technically difficult study with suboptimal views. 2. Overall left ventricular systolic function is moderate-severely impaired with, an EF bet ween 30 - 35 %. 3. The right ventricle is mildly enlarged, but right ventricular systolic function is meseret l. 4. The left atrium is markedly dilated. 5. There is severe aortic stenosis present. 6. There is moderate pulmonary hypertension. The right ventricular systolic pressure (pul monary artery systolic pressure), as measured by Doppler, is 55 mm Hg. CBC: Lab Results Component Value Date WBC 8.82 03/14/2016 RBC 2.97* 03/14/2016 HGB 8.1* 03/14/2016 HGB 9.9* 08/28/2015 HCT 25.3* 03/14/2016 MCV 85.0 03/14/2016 MCH 27.3 03/14/2016 MCHC 32.1 03/14/2016 RDW 43.3 03/14/2016 PLT 223 03/14/2016 MPV 9.8 03/14/2016 DIFFTYPE MANUAL 03/11/2016 CMP: Lab Results Component Value Date NA 137 03/14/2016 K 4.1 03/14/2016 CL 98* 03/14/2016 CO2 27 03/14/2016 ANIONGAP 16 03/14/2016 GLUF 231* 03/14/2016 BUN 36* 03/14/2016 CREATININE 5.1* 03/14/2016 CREATININE 5.79* 11/22/2015 BCR 7 03/14/2016 CA 8.4* 03/14/2016 CA 9.7 09/11/2015 PROT 6.0* 03/09/2016 ALB 2.5* 03/09/2016 GLOB 3.5 03/09/2016 BILITOT 0.3 03/09/2016 ALP 42 03/09/2016 AST 15 03/09/2016 ALT 14 03/09/2016 EGFR 12* 03/14/2016 LIPID PANEL: TC-113, LDL-42, HDL-41, TG-149 PROBLEM LIST Principal Problem: NSTEMI (non-ST elevated myocardial infarction) ([facility]) Active Problems: Type 2 diabetes mellitus with diabetic nephropathy ([facility]) Obesity Anemia of chronic renal failure, stage 5 ([facility]) Moderate aortic stenosis Aortic stenosis Acute diastolic congestive heart failure ([facility]) ESRD (end stage renal disease) ([facility]) Difficulty in walking Debility, unspecified 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 (H ) Paroxysmal atrial fibrillation ([facility]) HFrEF (heart failure with reduced ejection fraction) ([facility]) ADHF (acute decompensated heart failure) ([facility]) Coronary artery disease involving [place] coronary artery of [place] heart S/P PTCA (percutaneous transluminal coronary angioplasty) ASSESSMENT & PLAN 1. Acute NSTEMI, Killip class II, hemodynamically stable, with 3-vessel CAD, now s/p PCI/DE S in the 1st diagonal branch, mid LAD and RCA by Dr. Sweet. He has been started on aspirin, Brilinta, Coreg and losartan. CABG/AVR surgery was felt to be of prohibitively high risk. 2. Severe by echocardiography last month, confirmed on a repeat study, with ZEKE 0.97 cm sq, peak transvalvular velocity measured at 4.1 m/s, an indicator of severe . The was calculated as only moderate by cardiac catheterization criteria, but this is because cardiac output was calculated so high (9.3 L/min., likely due to the arteriovenous fistula). In th is case, echocardiographic (VTI) assessment is a more accurate measurement (peak/mean gradie nts 57/39 mm Hg by echo, 40/32 mm Hg on cath). He will be referred for evaluation for TAVR following this hospitalization. 3. Dilated Cardiomyopathy, EF 30-35% on echo, likely mixed ischemic and non-ischemic etiolo gy 4. Stage V chronic kidney disease, right upper extremity brachiocephalic AV fistula created 03/01/16, but it will be sometime before this can be used. He had a tunneled RIJV dialysis a ccess placed, and hemodialysis has been started on this admission. 5. 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 Essential hypertension, controlled 8. Moderate Pulmonary HTN, likely secondary to # 2, 3, 8 7. History of a right CVA, with minimal residual left arm numbness and tingling, but no oth er residual deficits. 8. Mild obstructive sleep apnea, untreated 9. Severe anemia due to chronic kidney disease, no significant change despite large volume removal in HD yesterday. Consider PRBC transfusion if it drops any lower. Erythropoeitin c ould be considered as well. 10. Paroxysmal Atrial Fibrillation with his initial HD session, maintaining NSR since then. 11. Hyperlipidemia, with metabolic syndrome, well controlled Disposition: Continue hemodialysis (Dr. Christianson supervising) and current medications. He c an be referred electively to a tertiary center for TAVR following D/C. can see him in the [facility] in 2-3 weeks for this purpose. He would prefer to go to [facility] to have it done. Code Status: Full Code See Dangelo MD 03/14/2016 [email or web address], Brianna Bobo MD - 03/14/2016 4:09 PM PDT Progress Notes by Brianna Hernandez MD at 03/14/16 1604 Author: Brianna Hernandez MD Service: Hospitalist Author Type: Physician Filed: 03/15/16 1546 Date of Service: 03/14/161608 Status: Addendum Whitesmith: Brianna Hernandez MD (Physician) Related Notes: Original Note by Brianna Hernandez MD (Physician) filed at 03/15/16 0853 [facility] Service: Hospitalist Progress Note Pt: Brianna Vital AGE/SEX: 70 y.o. male : 1945 ROOM: [facility]/4465- " Patient Summary: 70-year-old male with a history of stage V chronic kidney disease (fistula formation [address]as), presented with respiratory distress, non-STEMI, and and acute on chronic suzanne l failure. Initially treated with IV Lasix with minimal improvement, patient developed worse ankur pulmonary edema, patient required emergent hemodialysis, with a right IJ hemodialysis c atheter placed on the and underwent first hemodialysis on the . Dr. Dangelo performed heart catheterization. Found to have moderate three-vessel disease and s evere aortic stenosis. Evaluated by Dr. Pantoja, deemed high risk, as a result Dr. Sweet to perform staged PCI. Patient underwent heart catheterization yesterday, stent placed to prox imal first diagonal and mid LAD. Patient is scheduled for a tentative PCI to RCA on . Patient will then be referred for elective TAVR - Patient with recurrent episodes of dyspnea, on and off BiPAP. Yesterday after a procedure dyspnea, BiPAP resumed at 30 percent FiO2, presently undergoing hemodialysis and feeling im proved. Presently denies any chest pain, breathing improved, no nausea no emesis. "......per progr ess note by Dr. Chanel on 03/11/16 TODAY'S DATE: 03/15/2016 Hospital Day: LOS: 12 days SUBJECTIVE: 03/12/2016 : No chest pain or shortness of breath. Feels to be well. Sitting in a chair eati ng dinner. Did not require BiPAP since this morning. Plan for additional PCI with stent plac ement potentially tomorrow. Case discussed with Dr. Christianson. 03/13/2016: The patient is awaiting for secondary cardiac catheterization today as part of t he planned staged procedure to address his significant coronary artery disease which was mihir med non-operable by cardiothoracic surgery. The patient subsequently will need to have elect ej TAVR for his severe aortic valve stenosis. The patient had no chest pain. No shortness o f breath. He did not require p.r.n. BiPAP usage as he has in the past. 03/14/2016: The patient's plan for discharge home today was vetoed by physical therapy as it appears that he is unsafe to be discharged home to care for himself independently. His recently had hip replacement and cannot help him. He has no other family members who can he lp him. He did not participate very optimistically or eagerly with physical therapy today, a nd therefore he was downgraded to SNF placement as the safe option. The patient does not wis h to go to rehab at the present time and wishes to be reevaluated by physical therapy again now that he understands the importance of physical therapy's assessment. The patient underwe nt successful RCA stenting by Dr. Sweet yesterday along with first PTCA on March 10, 2016, to LAD. His discharge was aborted today. Review of Systems: Review of Systems Constitutional: Negative for fever, chills and malaise/fatigue. HENT: Negative for hearing loss and tinnitus. Eyes: Negative for blurred vision, double vision and redness. Respiratory: Negative for cough, hemoptysis and sputum production. Cardiovascular: Negative for chest pain, palpitations and PND. Gastrointestinal: Negative for heartburn, nausea, vomiting, blood in stool and melena. Genitourinary: Negative for dysuria, urgency and flank pain. Musculoskeletal: Negative for myalgias and neck pain. Skin: Negative for itching. Neurological: Negative for dizziness, tingling, tremors, focal weakness, seizures, loss of consciousness, weakness and headaches. Endo/Heme/Allergies: Negative for polydipsia. Psychiatric/Behavioral: Negative for depression, suicidal ideas and substance abuse. Scheduled Medications aspirin 81 mg Oral Daily with breakfast atorvastatin 80 mg Oral Nightly carvedilol 6.25 mg Oral BID WC cholecalciferol 1,000 Units Oral QPM diphenhydrAMINE 50 mg Oral Once diphenhydrAMINE 50 mg Oral Once famotidine 20 mg Oral Once famotidine 20 mg Oral Once heparin (porcine) 1,000 Units Intracatheter Once per day on Fri heparin (porcine) 500 Units Intracatheter Once per day on Fri heparin (porcine) Intracatheter Daily hydrALAZINE 10 mg Oral TID insulin glargine 60 Units Subcutaneous QAM insulin lispro (human) 0-3 Units Subcutaneous Nightly insulin lispro (human) 0-6 Units Subcutaneous TID AC lidocaine 10 mL Infiltration Once lidocaine 20 mL Intradermal Once pantoprazole 40 mg Intravenous BID sevelamer 1,600 mg Oral TID WC sitagliptan 25 mg Oral Daily terazosin 10 mg Oral Nightly ticagrelor 90 mg Oral BID Continuous Infusions dextrose PRN Medications acetaminophen OR acetaminophen, dextrose, dextrose, dextrose, glucagon, glucagon, HYDRO codone-acetaminophen OR HYDROcodone-acetaminophen, nitroGLYCERIN, ondansetron OR ond ansetron, polyethylene glycol, zolpidem Allergy: Allergies Allergen Reactions Penicillins Rash Reacted with a rash as a child. Has not had penicillins since. Gemfibrozil Nausea and Vomiting Questran [Cholestyramine] Nausea and Vomiting OBJECTIVE Vitals: Patient Vitals for the past 24 hrs: BP Temp Temp src Pulse Resp SpO2 Weight 03/15/16 1035 134/62 mmHg 97.8 F (36.6 C) Oral 75 18 97 % - 03/15/16 1026 130/66 mmHg - - 78 - 97 % 92.2 kg (203 lb 4.2 oz) 03/15/16 1015 132/69 mmHg - - 75 - 97 % - 03/15/16 1000 128/69 mmHg - - 75 - 98 % - 03/15/16 0945 126/64 mmHg - - 74 - 97 % - 03/15/16 0930 145/70 mmHg - - 74 - 96 % - 03/15/16 0915 128/65 mmHg - - 75 - 96 % - 03/15/16 0900 141/71 mmHg - - 76 - 96 % - 03/15/16 0845 131/68 mmHg - - 75 - 96 % - 03/15/16 0830 127/59 mmHg - - 73 - 95 % - 03/15/16 0815 141/71 mmHg - - 75 - 97 % - 03/15/16 0800 126/64 mmHg - - 75 - 95 % - 03/15/16 0745 140/70 mmHg - - 73 - 96 % - 03/15/16 0730 127/61 mmHg - - 70 - 95 % - 03/15/16 0715 130/61 mmHg - - 70 - 97 % - 03/15/16 0700 138/69 mmHg - - 71 - 94 % - 03/15/16 0656 154/70 mmHg - - 73 - 95 % - 03/15/16 0650 - - - - - - 94.7 kg (208 lb 12.4 oz) 03/15/16 0615 132/64 mmHg 97.8 F (36.6 C) Oral 72 18 96 % - 03/15/16 0357 131/66 mmHg 98 F (36.7 C) Oral 77 20 95 % 91 kg (200 lb 9.9 oz) 03/14/16 2332 125/64 mmHg 97.9 F (36.6 C) Oral 70 20 96 % - 03/14/16 1939 125/58 mmHg 97.7 F (36.5 C) Oral 68 24 97 % - 03/14/16 1604 113/58 mmHg 98.1 F (36.7 C) Oral 64 20 96 % - I&O Detailed Table: Intake/Output Summary (Last 24 hours) at 03/15/16 1541 Last data filed at 03/15/16 1026 Gross per 24 hour Intake 2600 ml Output 4650 ml Net -2050 ml Patient Vitals for the past 96 hrs: Weight 03/15/16 1026 92.2 kg (203 lb 4.2 oz) 03/15/16 0650 94.7 kg (208 lb 12.4 oz) 03/15/16 0357 91 kg (200 lb 9.9 oz) 03/14/16 0317 91.8 kg (202 lb 6.1 oz) 03/13/16 1106 89.5 kg (197 lb 5 oz) 03/13/16 0700 92.2 kg (203 lb 4.2 oz) 03/13/16 0333 95.2 kg (209 lb 14.1 oz) Hemodynamics Last 24hrs: Examination: Physical Exam Constitutional: He is oriented to person, place, and time. He appears well-developed. HENT: Nose: Nose normal. Mouth/Throat: No oropharyngeal exudate. Eyes: Pupils are equal, round, and reactive to light. No scleral icterus. Neck: Normal range of motion. No JVD present. Cardiovascular: Normal rate. Murmur heard. Systolic murmur is present with a grade of 5/6 Pulmonary/Chest: Effort normal and breath sounds normal. No respiratory distress. He has no wheezes. Abdomina/Gl: Soft. Bowel sounds are normal. He exhibits no distension. There is no tenderne ss. Musculoskeletal: He exhibits edema. He exhibits no tenderness. Trace BL LE edema Neurological: He is alert and oriented to person, place, and time. No cranial nerve deficit . Coordination normal. Skin: Skin is warm and dry. No rash noted. There is pallor. R IJ CVD ; RUE AVF Psychiatric: He has a normal mood and affect. His behavior is normal. LABS: Recent Labs Lab 03/15/16 0452 03/14/16 1220 03/13/16 0432 03/09/16 1149 WBC 8.26 8.82 7.41 < > 8.29 HGB 8.0* 8.1* 7.5* < > 8.4* HCT 24.4* 25.3* 23.2* < > 26.1* PLT 206 223 197 < > 168 NEUTOPHILPCT -- -- -- -- 78.99 MONOPCT -- -- -- -- 9.74 < > = values in this interval not displayed. Recent Labs Lab 03/15/16 0452 03/14/16 1220 03/13/16 0432 03/09/16 1149 NA 137 137 137 < > 140 K 3.7 4.1 3.8 < > 3.8 CL 99 98* 99 < > 104 CO2 26 27 27 < > 26 BUN 42* 36* 43* < > 36* CREATININE 6.0* 5.1* 5.8* < > 4.9* PROT 5.7* -- -- -- 6.0* BILITOT 0.5 -- -- -- 0.3 ALT 18 -- -- -- 14 AST 33 -- -- -- 15 < > = values in this interval not displayed. Phosph Diagnostic: Ir Dialysis Tunneled Cath Insert 03/04/2016 DATE OF PROCEDURE: 03/04/2016 SURGEON: Efrain Navarro MD SALES PROMOTION MANAGER: None PREOPERA TIVE DIAGNOSIS: 1. End stage renal disease requiring hemodialysis POSTOPERATIVE DIAGNOSIS: Same PROCEDURES: 1.Percutaneous access of right internal jugular vein under ultrasound guid ance and placement of tunneled hemodialysis catheter ANESTHESIA: Local anesthesia and cons cious sedation (1mg Versed, 75mcg Fentanyl) RADIATION DOSE: 10mGy FLUOROSCOPY TIME: 0.5 mi nute SPECIMEN: None ESTIMATED BLOOD LOSS: Less Than 10 ml (Minimal) BLOOD ADMINISTERED: N one COMPLICATIONS: None CONDITION: Stable INDICATIONS: This is a 70 y.o. male patient wi th end stage renal disease requiring hemodialysis.The patient has been evaluated by his neph rologist who determined that he is a suitable candidate to undergo hemodialysis. The patient understands the benefit and purpose of the planned procedure of tunneled hemodialysis sonu ter insertion is to allow the patient to receive hemodialysis while waiting for a exterminator termite hemodialysis access such as arteriovenous venous fistula or graft to be created. The patient also understands the risks and complications of this procedure which include bleeding, vess el perforation, infection, deep vein thrombosis, catheter malfunction, nerve or arterial inj ury, and pneumothorax. The patient has accepted these benefits and risks and agreed to under go the planned procedure. PROCEDURE IN DETAIL: The patient was taken to the operating room and placed on the table in the supine position. The patient's right neck and chest region w as prepped sterilely and then draped in a standard fashion. The patient was given local and conscious sedation anesthesia. Appropriate time out was performed whereby the patient and si te of surgery were identified. Percutaneous access of the right internal jugular vein was ob tained under ultrasound guidance. A 0.035' guidewire was placed in the right internal jugul ar vein and confirmed under fluoroscopy guidance. The skin tract was dilated with serial dil ators. A peel away sheath was inserted over the guidewire. A hemodialysis catheter was tunne led under the skin from the chest to the neck. Next the guidewire and inner dilator of the p eel away sheath was removed. The tunneled hemodialysis catheter was placed into the internal jugular vein over a peel away sheath. The catheter tip was positioned in the superior vena cava and the position was confirmed with fluoroscopy. Heparinized saline solution was inject ed in the double lumen tunneled hemodialysis catheter and the catheter was securely anchored to the skin using 3-0 nylon sutures. Standard dressing was applied over the tunneled hemodi alysis catheter in the usual fashion. Hemostasis was achieved without complications. The pat ient tolerated the procedure well and suffered no complications. I was present throughout th e entire procedure. Xr Chest 1 View 03/04/2016 BRIANNA VITAL XR CHEST 1 VIEW 03/04/2016 6:31 PM History: 70 years. Male. Progressive dyspnea. New dialysis catheter placement. Renal failure. Congestive heart fa ilure. Technique: AP portable upright technique was performed at 1825 hours. Comparison: Findings: There is increasing opacification at the LEFT lung base, now completely o bscuring the LEFT hemidiaphragm. Perihilar moderately dense bilateral pulmonary infiltrates are again noted, mildly progressive, suggesting progressive pulmonary edema. The RIGHT smitha g base is clear. No visible RIGHT pleural effusion. Mild cardiomegaly is unchanged. The p ulmonary vasculature is obscured. A RIGHT internal jugular dialysis catheter is visualized with its tip at the junction of the superior vena cava and RIGHT atrium. 03/04/2016 1. Moderate, mildly progressive bilateral perihilar pulmonary edema. 2. Incr easing opacity of the LEFT lung base suggesting pneumonia and/or atelectasis and/or small pl eural effusion. 3. Persistent mild cardiomegaly. 4. New central venous dialysis catheter, without complication. Xr Chest 1 View 03/03/2016 This is a non-reportable procedure without a radiologist report and is used fo r image storage only Us Arm Right Mapping For Dialysis 02/29/2016 History: 70-year-old male, preoperative. Requires vein mapping Technique: Ult rasound of the bilateral lower extremity superficial systems. Prior study: None Findings: EVALUATION OF THE RIGHT: CEPHALIC VEIN proximal arm: 5.7 mm, 18 mm from the skin surface middle arm: 3.8 mm, 8.2 mm from the skin surface distal arm: 3.9 mm, 4.2 mm from the skin surface proximal forearm: 4.3 mm, 6.6 mm from the skin surface middle forearm: 3.1 mm, 4.5 mm from the skin surface distal forearm: 3.8 mm, 2.5 mm from the skin surface BRACHIAL VE IN proximal arm: 4.9 mm, 20 mm from the skin surface middle arm: 4 mm, 23 mm from the ski n surface distal arm: 4.3 mm, 10.7 mm from the skin surface BASILIC VEIN: middle arm: 6 mm, 16 mm from the skin surface distal arm: 2.8 mm, 3.9 mm from the skin surface proximal f orearm: 2.2 mm, 2.8 mm from the skin surface middle forearm: 2.2 mm, 2.3 mm from the skin surface distal forearm: 1.8 mm, 2.6 mm from the skin surface BRACHIAL ARTERY: 6.3 mm, 10.7 mm from the skin surface RADIAL ARTERY: 3.6 mm, 8.3 mm from the skin surface ULNAR ARTERY : 2.5 mm, 10.2 mm from the skin surface Atherosclerotic vascular disease: Not reported A s tenosis of the distal radial artery with a velocity elevation is noted, image 37. Atheroscl erotic calcifications are also. Thrombosis: None 02/29/2016 1. A brachiocephalic fistula may be the best choice, as the basilic vein has a low insertion point and there is a stenosis of the distal radial artery Left hand dominant patient Would correlate with individual surgical protocol for this individual patient Debbie ctronically signed by Aki Meyers MD on 02/29/2016 4:50 PM Cl Stent Drug Eluting Coronary 03/10/2016 DATE OF PROCEDURE March 03, 2016 PROCEDURES PERFORMED 1. Conscious sedation. 2. Right common femoral artery angiogram, followed by left common femoral artery angiogr am. 3. Aortoiliac artery angiogram. 4. Selective left and right common femoral artery angiog jared. 5. Selective left coronary artery angiogram. 6. Fractional flow reserve measurement of the mid left anterior descending artery with significant fractional flow reserve value o f 0.63. 7. Successful percutaneous transluminal coronary angiography and stenting of the proximal first diagonal branch of the left anterior descending artery using a 2.25 x 15-m m Xience Alpine drug-eluting stent in a T-bifurcation stenting technique with the left an terior descending. 8. Successful percutaneous transluminal coronary angiography and stenting of the mid to proximal left anterior descending artery using a 3.25 x 38-mm Xience Al pine drug-eluting stent postdilated using 3.25 and a 3.0 noncompliant balloons. 9. Succes sful kissing balloons of the bifurcation left anterior descending and first diagonal sten ts with 3.0 x 12-mm noncompliant balloon in the left anterior descending and a 2.0 x 8-mm noncompliant balloon in the diagonal stent. INDICATIONS Kil-AZ-[id number] myocardial inf arction. The patient turned down by surgery given high the high risk for surgery. HISTORY O F PRESENT ILLNESS The patient is a 70-year-old male with a history of hypertension, hyperlip idemia, diabetes mellitus type 2, and end stage renal disease who was recently started on he modialysis. He was admitted with non-ST elevation myocardial infarction. He was also found t o have severe aortic stenosis, moderately to severely reduced left ventricular ejection frac tion of 30% to 35%, and 3-vessel coronary artery disease. Cardiothoracic surgery was consult ed for consideration of bypass surgery and aortic valve replacement. The patient was found t o be at high risk for surgery. The patient's best option appeared to be percutaneous coronar y intervention and transcatheter aortic valve replacement. Please refer to Dr. Dangelo's full d iagnostic coronary artery angiogram report and consultation report. The patient was referred for percutaneous coronary intervention and FFR measurement of the mid left anterior descend ing artery. The procedure risks, benefits, and alternatives were discussed in detail with th e patient and he agreed to proceed. DESCRIPTION OF PROCEDURE The patient was brought to the cardiac catheterization laboratory in the fasting state. After informed consent was obtaine d, the patient was prepped and draped in the usual sterile fashion. Lidocaine 2% was used fo r local anesthesia of the right groin. The right femoral artery was accessed using a micropu ncture needle under fluoroscopic guidance. The femoral arteries were calcified with clear ou tline of the arteries. Subsequently, a 4-Filipino micropuncture sheath was put in place and an giogram of the right common femoral artery was done which showed mild disease of the right c ommon femoral artery. However, there were very tortuous iliac arteries. Subsequently, I trie d to advance a Versacore wire. Due to tortuosity in the iliac artery, it would not go throug h easily. I removed the Versacore wire and used a Wholey wire. Again, there was significant difficulty even with the Wholey wire. At this point, I decided to use a Glidewire, and the G lidewire was advanced. As the Glidewire was not advancing easily into the proximal common il iac artery, I used a 4-Filipino [place] catheter. The [place] catheter was advanced into the iliac artery. I wanted to evaluate the iliac artery at that point to rule out any dissection plan e as there was difficulty advancing the wire. Subsequently, we did an angiogram using the Gl marcelo catheter. The angiogram showed some decreased blood flow, and I suspected there might be a dissection. At this point, i decided to go from the left common femoral artery. The [place] catheter was removed over the wire, then a 4-Filipino 11-cm sheath was placed in the right co mmon femoral artery. Then, we checked pressures in the right common femoral artery using the sheath which showed good pressures. Subsequently, 2% lidocaine was used for anesthesia of t he left groin. The left femoral artery was accessed using a micropuncture needle under fluor oscopic guidance. Again, there was good visualization of the outline of the common femoral a rtery with calcification. Subsequently, using a 4-Filipino micropuncture sheath, we took angio gram of the left common femoral artery again showing mild calcification and mild disease in the left common femoral artery and tortuosity of the iliac arteries, although the tortuosity appeared to be less than the right iliac artery. Subsequently, the Versacore wire was advan ervin into the aorta without much difficulty. A 4-Filipino, 11-cm sheath was placed into the lef t femoral artery. I proceeded with evaluation of both iliac arteries, especially to rule out any dissection in the right iliac artery. Subsequently, a 4-Filipino Omni Flush catheter was advanced into the distal abdominal aorta and angiogram of the distal abdominal aorta and bi lateral common and external iliac arteries were obtained which showed no evidence of dissect ion or perforation in the right iliac artery or left iliac artery and showed severe tortuosi ty of the right iliac artery more than the left iliac artery. At this point, we then proceed ed with our plan of FFR of the left anterior descending artery and, if significant, to proce ed with intervention. Subsequently, given the tortuosity, I used a long sheath and, given th e anticipated bifurcation lesion in the LAD and diagonal, I choose a 7 Filipino. Subsequently, a 7-Filipino, 35-cm sheath was advanced from the left common femoral artery into the abdomina l aorta without much difficulty. The patient was given 5000 units of heparin. A guiding 7-Fr ench XB LAD 3.5 guiding catheter was advanced and used for selective engagement of the left coronary system. A blood sample was drawn for ACT. Subsequently, left coronary angiogram was done in cranial view. ACT came back 102. Subsequently, we gave another 5000 units of hepari n intravenously. This was a total of 10,000. Subsequently, an FFR wire was advanced and norm alized in the left main and advanced to the distal left anterior descending artery after the long diseased segment in the mid LAD that actually started proximal to the first diagonal b ranch. The FFR immediately went down to 0.63 even without giving intravenous adenosine, whic h indicates a hemodynamically significant lesion. Angiogram was repeated. At that time, we s ent a blood sample for another ACT. The FFR wire was advanced into the distal left anterior descending artery. Given the severe disease of the first diagonal branch, which appeared to be coming at a 90-degee angle from the left anterior descending artery, I felt the best opti on was to proceed with angioplasty, followed by stenting of the diagonal branch with T-stent ing technique. The diagonal branch was a 2.0 to 2.5-mm vessel. The LAD appeared to be a 3.25 -mm vessel. Subsequently, a BMW wire was advanced into the diagonal branch. A 2.0 x 8-mm com pliant Emerge balloon was advanced and inflated in the proximal diagonal at 6 atmospheres fo r 19 seconds. The balloon was removed. To my surprise, ACT came back again at 104 despite th e patient being given now a total of 10,000 units of heparin. At this point, we evaluated e venous access site, and it appeared that medications and fluids had been running appropria tely. As the ACT did not change at all with 10,000 units of heparin, I felt that it would be best to have a central line just in case these medications and anticoagulants were not bein g delivered through the peripheral line. Subsequently, 2% lidocaine was used for anesthesia of the right groin. The right femoral vein was accessed using a micropuncture needle. A 4-Fr ench sheath was placed into the right femoral vein without difficulty. Subsequently, extensi on tubing was attached to the 4-Filipino venous sheath. We gave 5000 units of heparin through the central line. Also, the patient was given a double bolus of Integrilin, followed by an I ntegrilin drip. At this point, we also changed delivery of the Integrilin drip through the c entral venous line. At this point, we waited for ACT before proceeding with stenting or furt her intervention. We waited 5 minutes after the third 5000 units of heparin. The ACT was daniel cked and it was still low, so we gave another 5000 units of heparin which now came to a tota l of 20,000 units of heparin. ACT was checked using 2 different ACT machines and, again, the ACT, although improved, was still not therapeutic. It went up to 178. At this point, I felt there might be resistance to heparin with difficult anticoagulation in this patient. I deci ded to go with Angiomax. Subsequently, we gave the patient an Angiomax bolus, followed by a drip renally adjusted dose. We waited 5 minutes after the bolus and checked the ACT which we nt up to 362. At this point, we decided to proceed with intervention. Subsequently, a 2.25 x 15-mm Xience Alpine drug-eluting stent was advanced and deployed in the proximal diagonal, covering the lesion with the proximal end of the stent at the ostium of the diagonal branch ; however, not protruding into the LAD. The stent was deployed at 10 atmospheres for 17 seco nds. At this point, angiogram showed probably a plaque rupture at the proximal LAD just befo re the takeoff of the first diagonal probably initiated by advancing the stent. The was redu ction of flow in the left anterior descending artery. The patient's blood pressure started t o drop. At this point, I went quickly with intervention on the left anterior descending ana ry. A 3.0 x 30-mm compliant Emerge balloon was advanced and inflated in the mid left anterio r descending artery and the proximal left anterior descending artery just proximal to the ta keoff of the diagonal where there appeared to be a plaque rupture. The balloon was inflated at nominal atmospheres. The balloon was then advanced forward to cover the whole lesion and inflated again at 10 atmospheres for 23 seconds and 10 atmospheres for 12 seconds. Subsequen tly, a 3.25 x 38-mm Xience Alpine drug-eluting stent was advanced and, with some minor diffi culty, I was able to advance the stent to cover the lesion distally and proximally. The sten t was extending to the proximal LAD covering the lesion just before the takeoff of the first diagonal branch. The stent was deployed at 12 atmospheres for 20 seconds. There was difficu lty pulling the stent balloon. With care, trying not to have the guide deeply engaged, we tr ied to pull the balloon. However, it was not going. I inflated the balloon at 4 atmospheres and then deflated, and with that we were able to pull the stent balloon. The patient's blood pressure was still dropping to the 80s and 90s. The patient was given 100 mcg of phenylephr ine. Subsequently, repeat angiogram showed rastafari of flow in the left anterior descendi ng artery. However, the diagonal branch became occluded with an occluded stent likely due to plaque shift. The stent did not appear to be really extending into the left anterior descen ding artery. Subsequently, I tried to quickly advance a BMW wire to cross into the diagonal branch. However, there was difficulty crossing into the diagonal stent. As there was a signi ficant twist in the mid LAD stent, we decided to go with postdilation of the LAD to optimize the stent expansion first and to try to open the diagonal later. Subsequently, a 3.25 x 20- mm noncompliant Quantum balloon was advanced and we started inflation just distally at 20 at mospheres for 13 seconds with pulling backward and in overlapping fashion to the proximal pa rt of the stent at 20 atmospheres for 12 seconds and 20 atmospheres for 19 seconds. There is a part in the mid part of the stent that still had a waist despite going to high pressures of 20. The balloon was then pulled, and there was difficulty pulling the balloon. The balloo n was inflated at 4 atmospheres for 5 seconds, and then we were able to pull the balloon colby kward a little. Again, there was difficulty pulling the balloon. The balloon was advanced ag ain forward with the balloon completely inside the stent and inflated at 12 atmospheres for 15 seconds. Eventually, we were able to pull the balloon out with care not to cause dissecti on in the left main as the guide tended to go deep. Repeat angiogram showed there was still a focal waist in the mid LAD after the first diagonal, and the first diagonal remained occlu ded. I went again with a shorter balloon at 3.25 x 12-mm noncompliant Quantum balloon, advan ervin at the area of the waist, and inflated at 20 atmospheres for 15 seconds, 20 atmospheres for 11 seconds, 20 atmospheres for 37 seconds, and 20 atmospheres for 28 seconds. Repeat ang iogram again showed there was still some focal waist in the mid LAD within the stent. At thi s point, we went with a shorter balloon, a 32.5 x 8-mm noncompliant Quantum balloon, and adv anced and inflated at the area of the waist at 20 atmospheres for 24 seconds, 20 atmospheres for 50 seconds, and 22 atmospheres for 25 seconds. With that, there was improvement in the waist. However, there was still some mild waist. We tried to pull the balloon. Again, there was difficulty pulling the balloon. We did double-negative pressure in the balloon, and then the balloon was inflated at 12 atmospheres for 12 seconds in the area of the waist. We were then able to pull the balloon. At this point, I proceed with a trial to open the first chip gonal stent. I tried the BMW wire. However, it could not go through. Subsequently, a Whisper wire was advanced and initially advanced into the mid left anterior descending stent and th en pulled back to assure placement within the LAD stent. With some difficulty, I was able to cross into the diagonal branch. Subsequently, a 2.0 x 8-mm noncompliant balloon was advance d and, without much difficulty, crossed over into the diagonal branch. The balloon was infla doyle at the ostium of the first diagonal branch partly in the diagonal stent and partly in th e LAD stent at 12 atmospheres for 30 seconds. It was then advanced into the proximal diagona l branch within the stent for postdilation of the stent and inflated at 12 atmospheres for 2 0 seconds. Subsequently, the balloon was left in the ostium of the diagonal branch, partly i n the diagonal branch and partly in the LAD stent. Another balloon, a 3.0 x 12-mm noncomplia nt Quantum balloon, was advanced over the wave wire in the LAD. Both balloons were placed i n a kissing fashion with the proximal ends of the stents in the proximal part of the LAD johnna nt, however, completely within the stent. Both kissing ballooning with both balloons were in flated at 12 atmospheres for 17 seconds. Then, both balloons were deflated. Subsequently, I advanced the LAD balloon, 3.0 x 12-mm noncompliant Quantum balloon, more distally at the are a of the waist distal to the origin of the first diagonal branch and inflated at 14 atmosphe res for 12 seconds, 22 atmospheres for 24 seconds, and with that the waist had resolved and the stent there appeared to have expanded well. Subsequently, we did another final kissing b allooning with a 2.0 x 8-mm noncompliant balloon in the diagonal and a 3.0 x 12-mm noncompli ant balloon in the LAD stent. Both balloons were inflated at 12 atmospheres for 15 seconds. Both balloons were deflated. Both balloons were removed, and post-intervention angiogram the n was obtained which showed excellent results with reduction of the degree of stenosis from 75% in the LAD down to 0% and from 80% in the diagonal branch down to 0% with NISSA 3 flow. B oth stents appeared to be well expanded. No evidence of dissection or perforation. Final ang iogram in a caudal view was obtained which, again, showed excellent results with no evidence of dissection or perforation, especially with special attention to the left main which show ed no evidence of dissection. All catheters and guidewires were removed. The right femoral arterial sheath and right femoral venous sheath both were 4-Filipino, and they were secured in place with sutures. The left femoral 7-Filipino sheath was secured with sutures to be removed on the floor based on ACT. The patient had received multiple doses of Humberto-Synephrine during the intervention as blood pressure had dropped. However, at the end of the procedure blood pressure was stable at 92 systolic. Final ACT at the end of the procedure showed an ACT of 2 82. The patient was continued on Integrilin, and the Angiomax was stopped at the end of the procedure. The patient was also given a loading dose of ticagrelor 130 mg. The patient tole rated the procedure well without complications. TOTAL CONTRAST 278 mL of Isovue. Due to the complex procedure and the initial problems with access and suspicion for right iliac artery dissection with need for angiogram of the iliac arteries, in addition to the complex bifurc ation lesion in the LAD we used 48 minutes of fluoroscopy time. ESTIMATED BLOOD LOSS Less t redman 50 mL. Overall, the patient tolerated the procedure well without complications. RESULT S Aortoiliac artery angiogram and common femoral artery angiograms. 1. The right and left co mmon external iliac arteries were patent without obstructive disease. There were large ve ssels with severe tortuosity in the right more than the left, especially of the external iliac arteries. The internal iliac arteries were patent and appeared to have moderate disease distally bilaterally. 2. Mild disease of the right and left common femoral arteries with mild calcification. However, no obstructive disease. Left coronary artery angiogram . 1. The left main coronary artery trifurcates and gives rise to the left anterior descen ding, ramus intermedius, and left circumflex arteries. The left anterior descending arter y is a short vessel without disease. 2. The left anterior descending artery is a large type 3 vessel that has diffuse calcification. There is a long, calcified, tubular lesion st arting at the proximal left anterior descending artery just before the takeoff of the fir st diagonal branch and extending to the mid portion. Angiographically, it appears to be i n the range of 75%. FFR measurement across this lesion is 0.63 indicating hemodynamically significant lesion. The first diagonal branch, which is a 2.0 to 2.5-mm vessel with s evere disease proximally in the range of 80% to 90%. 3. The ramus intermedius is a small ves fidencio without obstructive disease. 4. The left circumflex artery is a nondominant vessel that gives rise to a small, tiny first marginal branch, followed by a larger second marginal branch which appeared to be the main marginal branch. The mid left circumflex artery be fore the second marginal branch had moderate disease in the range of 80%. IMPRESSION 1. Severe mid left anterior descending artery and proximal first diagonal branch disease and moderate disease of the mid left circumflex artery. 2. Successful percutaneous transluminal coronary angiography and stenting of the first diagonal branch of the left anterior desc ending artery using a 2.25 x 15-mm Xience Alpine drug-eluting stent in a T-stenting fa shion with the left anterior descending stent. 3. Successful percutaneous transluminal coron carol angiography and stenting of the mid left anterior descending extending to the proxima l left anterior descending using a 3.25 x 38-mm Xience Alpine drug eluting stent postd ilated using a 3.25 and 3.0 noncompliant Quantum balloons. 4. Successful kissing balloons of the diagonal and left anterior descending stents using a 3.0 x 12-mm noncompliant balloo n in the left anterior descending stent and a 2.0 x 8-mm noncompliant balloon in the diag onal stent. PLAN 1. The patient will need to be on aspirin 81 mg for life. 2. The patien t will need to be on Brilinta 90 mg twice a day for at least 1 year. The patient received a loading dose in the catheterization lab at the end of the procedure. 3. We will contin ue Integrilin at renally adjusted dose for 12 hours. 4. Continue carvedilol and atorvastatin . 5. The patient will need staged assessment and PCI of the right coronary artery. 6. Aft er revascularization of the right coronary artery, the patient will be referred for TAVR evaluation as an outpatient. Read by LEYLA SWEET MD 03/10/2016 03:54 P Cl Right And Left Heart Catheterization With Coronary Angio 03/04/2016 REFERRING PHYSICIANS Bret Oro MD INDICATIONS Acute non-STEMI, severe aorti c stenosis by recent echocardiography, stage 5 chronic kidney disease, being initiated on he modialysis within the next day or two. PROCEDURES 1. Right heart catheterization. 2. Left h eart catheterization. 3. Selective bilateral coronary angiographies. 4. Placement of a 6-Galindo [facility] Mynx device for hemostasis. DESCRIPTION OF PROCEDURE After informed consent was obtaine d, he was brought to the cardiac catheterization laboratory and prepped and draped in a ster ile fashion. He was given Versed 2 mg IV and fentanyl 50 mcg IV for moderate anesthesia/mckenna tion. The right femoral area was infiltrated with 20 mL of 2% Xylocaine for local anesthesia . Using modified Seldinger technique, an 8-Filipino introducer sheath was inserted into the r ight common femoral vein with a clean anterior entry. Via similar technique, a 6-Filipino intr oducer sheath was inserted into the right common femoral artery on the second attempt, as th e first attempt was unsuccessful due to probable entry into a side branch and the guidewire could not be advanced. Hemostasis was achieved with manual pressure between the 2 femoral ar eileen cannulation attempts. A 7.5-Filipino [place] catheter was then advanced through the katt ous sheath and under fluoroscopy, was advanced through the right heart chambers, with typica l waveforms seen and pressures measured. Cardiac output was determined by thermodilution dora hnique, as the patient required supplemental oxygen to breathe comfortably while lying flat, and Gera technique could not be performed accurately. The [place] catheter was then remov ed. With the use of a 0.035-inch J-tipped guidewire for catheter advancement under direct f luoroscopic visualization, first a 5-Filipino FL4, then a 6-Filipino FL35 catheter was advanced to the aortic root, and both were able engage the left main coronary artery successfully, bu t the left coronary system was underfilled. Via guidewire exchange, a 6-Filipino AL1 catheter was used to perform selective angiography of the [place] left coronary system in multiple vie ws in a standard fashion with better results, although the vessels were still slightly under filled. The same AL1 catheter was then used to perform selective angiography of the [place] r ight coronary system in multiple views in a standard fashion. The catheter was then withdraw n slightly, and a 265 cm Wholey wire was advanced across the aortic valve into the left vent ricle. The AL1 catheter was removed over the guidewire, and a 6-Filipino angled pigtail cathet er was advanced into the left ventricle. Following pressure measurements, the catheter was p ulled back across the aortic valve, with pressures measured, and then removed. A nonselectiv e angiogram through the right common femoral arterial introducer sheath revealed entry above the bifurcation of this vessel, with no evidence of bleeding and no significant vascular di sease at this level. The introducer sheath was therefore removed, and hemostasis was achieve d with application of a 6-Filipino Mynx closure device. The venous sheath was removed, and hem ostasis was achieved with manual pressure. There were no complications, and the patient tole rated the procedure well. ESTIMATED BLOOD LOSS 50 mL. CONTRAST 105 mL of Isovue. RESULTS HEMODYNAMICS 1. Right atrial pressure: Mean 8, A wave 12, V wave 10. 2. Right ventricular pr essure: 47/13. 3. Pulmonary artery pressure: 36/19, mean pressure 27 mmHg. 4. Pulmonary capi llary wedge pressure: Mean 23 mmHg, A wave 24, V wave 34. 5. Left ventricular systolic pres sure: 145/37. 6. On pullback, central aortic pressure: 105/59, mean 78 mmHg. 7. The body eliu face area calculated to 2.225 m?. 8. By femoral dilution technique, cardiac output: 9.33 L/m in. 9. Cardiac index: 4.19 L/min/m?. 10. The aortic valve area is calculated at 1.5 cm?. wit h a 40 mm menh-lx-rora gradient and 32 mm mean gradient. 11. The aortic valve area index was calculated at 0.67 cm?/m?. However, on echocardiography, the aortic valve area was calculat ed at 0.9 cm?. CORONARY ARTERIES 1. Left main: This is a large vessel arising from the left coronary cusp. It is mildly calcified but otherwise normal and trifurcates at its distal en d. 2. Left anterior descending: This is a large, type 2 vessel which reaches the apex. The p roximal segment is free of disease. The midsegment contains a long 60% area of diffuse disea se between the first and second diagonal branches. The remainder of the LAD is free of disea se and appears suitable to receive a bypass conduit. The large first septal cardiology consultants branc h has a 60% concentric ostial stenosis. The other septal [facility]ology consultants branches are somewhat sm aller but normal. The large first diagonal branch contains an 80% proximal stenosis. The sec ond and third diagonal branches are quite small. 3. Ramus intermedius: This is a medium-size vessel, with a 50% concentric ostial stenosis. The remainder of the vessel is free of disea se. 4. Left circumflex: This is a medium-size, nondominant vessel supplying a single obtuse marginal branch. The midsegment, before the obtuse marginal branch, contains a concentric 40 % to 50% stenosis. 5. Right coronary artery: This is a large dominant vessel arising from th e right coronary cusp. The proximal segment is free of disease. The early midsegment contain s a 50% eccentric stenosis, followed by a 70% concentric stenosis just before the origin of the single large right ventricular branch. From this, there is an area of diffuse disease in the midsegment that is judged to be 50% in luminal diameter reduction. The distal RCA is fr ee of disease. It gives rise to a relatively small posterior descending artery, which is nor mal, and a relatively small posterolateral ventricular branch, which is normal. 6. Due to th e elevated left ventricular end-diastolic pressure, a left ventricular cineangiogram was not performed. CONCLUSIONS 1. Via catheterization, there is only moderate aortic stenosis. How ever, there was severe aortic stenosis on his recent echocardiogram, and this will be repeat ed. 2. Moderate 3-vessel coronary artery disease. 3. Mild pulmonary hypertension. 4. Mild pu lmonary artery stenosis. 5. Severe left ventricular diastolic dysfunction. RECOMMENDATIONS He is to be started on hemodialysis today or tomorrow. A repeat echocardiogram will be done. I have asked Jesús Pantoja MD, from cardiothoracic surgery to see him regarding possible aortic valve replacement and coronary artery bypass surgery. Read by SEE DANGELO MD 10:40 A Echo Cardiac Adult Complete 03/06/2016 Patient Name: BRIANNA VITAL Date of : 1945 23 Performing Physician: SEE DANGELO MD ------REPORT ADDENDED------ INDICATIONS CONCLUSIONS -------- --- 1. This was a technically difficult study with suboptimal views. 2. Overall left ventric ular systolic function is moderate-severely impaired with, an EF between 30 - 35 %. 3. The r ight ventricle is mildly enlarged, but right ventricular systolic function is normal. 4. The left atrium is markedly dilated. 5. There is severe aortic stenosis present. 6. There is mo derate pulmonary hypertension. The right ventricular systolic pressure (pulmonary artery sy stolic pressure), as measured by Doppler, is 55 mm Hg. FINDINGS -------- Study: This was a technically difficult study with suboptimal views. Left Ventricle: Overall left ventricular systolic function is moderate-severely impaired with, an EF between 30 - 35 %. Left Ventric le: The left ventricle cavity size is normal. Left Ventricle: Left ventricular wall thickne ss is normal. Left Ventricle: The following regional wall motion abnormalities include: Le ft Ventricle: basal anteroseptal - moderately hypokinetic; Left Ventricle: mid anterosepta l - severely hypokinetic; Left Ventricle: mid inferoseptal - moderately hypokinetic; Lef t Ventricle: mid inferior - mildly hypokinetic; Left Ventricle: basal inferolateral - dysk inetic; Left Ventricle: mid anterolateral - severely hypokinetic; Left Ventricle: apical septum - severely hypokinetic; Left Ventricle: inferior apex - mildly hypokinetic; Lef t Ventricle: apical lateral -severely hypokinetic; Left Ventricle: apex - severely hypokin etic; The mid anterior wall was not well visualized. Left Ventricle: The remaining left ve ntricular segments contract normally. Right Ventricle: The right ventricle is mildly enlarge d measuring between 3.4 - 3.7 cm. Right Ventricle: The right ventricular systolic function is normal. Left Atrium: The left atrium is markedly dilated. Right Atrium: The right atrium is normal in size. Aortic Valve: The aortic valve was not well visualized. Aortic Valve: T he aortic valve is severely calcified. Aortic Valve: There is severe aortic stenosis presen t. Aortic Valve: The aortic valve area by continuity equation is 0.96 cm, Aortic V alve: The maximum velocity across the aortic valve is 4.1 m/s Aortic Valve: The maximum p ressure gradient across the aortic valve is 57 mmHg . Aortic Valve: The mean gradient acros s the aortic valve is 39 mmHg. Mitral Valve: The mitral valve is normal. Mitral Valve: Mild mitral regurgitation is present. Tricuspid Valve: Mild tricuspid regurgitation present. Tr icuspid Valve: There is moderate pulmonary hypertension. Tricuspid Valve: The right ventric ular systolic pressure (pulmonary artery systolic pressure), as measured by Doppler, is 55 m m Hg. IVC/Hepatic Veins: The IVC is dilated (>2.5cm) and does not collapse with sniff, cons istent with central venous pressures of >20mmHg. MEASUREMENTS IVC: 2.68 cm LA Major: 5.41 cm LVOT Diam: 2.12 cm RA Major: 4.76 cm RVIDd: 3.70 cm LAESV(A-L): 48.76 ml LAAs A2C: 15.95 cm2 LAESV A-L A2C: 46.10 ml LAESV MOD A2C: 43.40 ml LALs A2C: 4.68 cm LAAs A4C: 16.87 cm2 LAESV A-L A4C: 49.93 ml LAESV MOD A4C: 47.22 ml LALs A4 C: 4.83 cm IVC diameter: 3.00 cm IVC collapse: 1.74 cm IVC % collapse: 38.92 % HR: 90.38 BPM AV maxP.53 mmHg AV meanP.77 mmHg AV Vmax: 4.12 m/s AV Vmean: 3. 01 m/s AV VTI: 82.82 cm ZEKE Vmax: 0.94 cm2 ZEKE (VTI): 0.96 cm2 LVCO Dopp: 7.18 l/min HR: 89.97 BPM LVOT maxP.91 mmHg LVOT meanP.03 mmHg LVSV Dopp: 79.80 ml LVOT Vmax: 1.10 m/s LVOT Vmean: 0.82 m/s LVOT VTI: 22.46 cm TR maxP.92 mmHg TR Vmax : 2.95 m/s TV A Doe: 0.59 m/s TV Dec Gibson: 5.92 m/s2 TV Dec Time: 104.14 ms TV E Ve l: 0.61 m/s TV E/A Ratio: 1.04 Border Machine Operator: DONY Authenticated by: See stuart Date/Time: -- [id number] 03/06/2016 1. This was a technically difficult study with suboptimal views. 2. Overall lef t ventricular systolic function is moderate-severely impaired with, an EF between 30 - 35 %. 3. The right ventricle is mildly enlarged, but right ventricular systolic function is meseret l. 4. The left atrium is markedly dilated. 5. There is severe aortic stenosis present. 6. Th ere is moderate pulmonary hypertension. The right ventricular systolic pressure (pulmonary artery systolic pressure), as measured by Doppler, is 55 mm Hg. Ir [facility] 03/04/2016 This Point of Care (POC) ultrasound image has been reviewed and interpreted by the physician identified as the performing physician in the associated interpretation and report. Past Medical History Diagnosis Date Hypertension Hyperlipidemia Diabetes mellitus, type 2 ([facility]) 2005 Insulin-requiring, with diabetic Nephropathy, Retinopathy Sleep apnea dx light apnea Chronic kidney disease Stage IV-V Anemia of chronic renal failure 01/24/2012 Acute upper GI bleed 01/18/2014 PUD on EGD, ulcer cauterized Stroke ([facility]) 2010 right surface stroke, residual left hand numbness/tingling Acute diastolic congestive heart failure ([facility]) 03/03/2016 Aortic valve stenosis, severe Vitamin D deficiency Skin cancer NSTEMI (non-ST elevated myocardial infarction) ([facility]) 03/03/2016 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 ([facility]) moderate 3-vessel CAD Paroxysmal atrial fibrillation ([facility]) 03/04/2016 HFrEF (heart failure with reduced ejection fraction) ([facility]) 03/09/2016 ADHF (acute decompensated heart failure) ([facility]) 03/09/2016 Coronary artery disease involving [place] coronary artery of [place] heart S/P PTCA (percutaneous transluminal coronary angioplasty) 03/10/2016 D1 - 2.25X15 mm Xience Alpine MESSI; mid LAD - 3.25X38 mm Xience Alpine MESSI Past Surgical History Procedure Laterality Date Colonoscopy Cataract extraction Bilateral 2004? Esophagogastroduodenoscopy N/A 01/18/2014 Procedure: ESOPHAGOGASTRODUODENOSCOPY; Surgeon: Caitlyn Khan MD; Location: [facility]; Service: Gastroenterology; Laterality: N/A; Av fistula placement Right 03/01/2016 Procedure: AV FISTULA; Surgeon: Vivek Dias MD; Location: [facility]; Service: Vascul ar; Laterality: Right; brachiocephalic fistula creation Skin cancer excision mid forehead Coronary angioplasty with stent placement 03/10/2016 D1 - 2.25X15 mm Xience Alpine MESSI; mid LAD - 3.25X38 mm Xience Alpine MESSI PROBLEM LIST Principal Problem: NSTEMI (non-ST elevated myocardial infarction) ([facility]) Active Problems: Type 2 diabetes mellitus with diabetic nephropathy ([facility]) Obesity Anemia of chronic renal failure, stage 5 ([facility]) Moderate aortic stenosis Aortic stenosis Acute diastolic congestive heart failure ([facility]) ESRD (end stage renal disease) ([facility]) Difficulty in walking Debility, unspecified 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 ([facility]) Paroxysmal atrial fibrillation ([facility]) HFrEF (heart failure with reduced ejection fraction) ([facility]) ADHF (acute decompensated heart failure) ([facility]) Coronary artery disease involving [place] coronary artery of [place] heart S/P PTCA (percutaneous transluminal coronary angioplasty) Pressure ulcer, stage 2 ASSESSMENT & PLAN Jxrskgi-qrj-scph-old male with extensive past medical history including coronary artery dis ease; end-stage renal disease, on dialysis; heart failure with reduced ejection fraction; an d severe aortic valve stenosis who presents with the followin. Acute coronary syndrome. Non-ST elevation [place]. Patient underwent cardiac catheterization on March 10, 2016, during which he received 2 drug-eluting stents, to D1 and mid LAD, by Dr Wu Dangelo. He underwent second-stage PTCA to RCA by Dr. Sweet on March 13, 2016. Continue cur rent medical therapy, including aspirin, ticagrelor, carvedilol, hydralazine. 2. Dmoqo-td-yqvlris systolic and diastolic heart failure. Last left ventricular function sh owed EF of 30% to 35%, with severe aortic stenosis and moderate pulmonary hypertension. Marlene ent was weaned off BiPAP support and currently is only on room air, as his oxygen demands obrien ve also decreased. 3. Severe aortic valve stenosis with worsening gradient. Outpatient referral to TAVR. 4. Chronic kidney disease with end-stage renal disease, on dialysis. Patient has a right IJ central venous catheter for dialysis, which will be continued as scheduled. He has a right upper extremity fistula, which is in the process of maturing. Outpatient dialysis under dire ction of Dr. Ly. Continue hemodialysis per nephrology. Dr. Christianson notified that patient's planned discharge for today was aborted. He will have likely dialysis tomorrow. 5. Type 2 diabetes mellitus. Continue insulin regimen along with sitagliptin. Blood glucose levels have been well controlled, relatively, with the exception of today when blood glucos e went above 200. 6. Hypertension. Continue current antihypertensive medication regimen. Blood pressure has b een in optimal range at the present time. 7. Ambulatory dysfunction. Severe deconditioning. Multiple comorbidities. Continue physical therapy. PT today, on March 14, 2016, stated the patient is unsafe to return home and yeny mmended SNF. Patient not agreeable and wishes to be reevaluated by PT again tomorrow morning . His second choice would be [facility] facility near [facility] where he lives. Case m anagement informed about this plan. 8. R buttock stage 2 pressure ulcer = continue wound care / offloading/ body repositioning q 2 hrs 9. DVT prophylaxis. SCDs and subcutaneous heparin. 10 . Patient's son and daughter updated at bedside. All questions answered to their satisfa ction. Brianna Hernandez MD 03/15/2016 3:41 PM onversion Transa ction, Provider Unknown - 03/14/2016 2:44 PM PDT Case Management by Jackie Daniel RN at 03/14/16 1442 Author: Jackie Daniel RN Service: (none) Author Type: Registered Nurse Filed: 03/14/16 1603 Date of Service: 03/14/161443 Status: Addendum Whitesmith: Jackie Daniel RN (Registered Nurse) Related Notes: Original Note by Jackie Daniel RN (Registered Nurse) filed at 03/14/16 144 5 1400: Met with pt regarding d/c plan. Pt going home tonight, daughter to transport home. Pt scheduled for HD on M// at 1:45, info included in AVS. 1600: met with daughter Lainey [phone] and son Parth [phone] regarding d/c planni ng. They have concerns about pt going home and not having 24/7 support. Pt's spouse is recov ering from hip surgery and not able to assist pt. Discussed with Tali,PT family's concerns. Tali states pt's BG were elevated this am and pt not feeling well and didn't do well with ambulation. Tali recommends SNF if pt is being d/c today. Discussed with Dr Hernandez and family. Family and pt agree to have referral to [facility] as a back up plan if pt doesn't do well tomorrow. Efaxed referral to [facility]. Martha Daniel RN, CM Peter Roque MD - 03/14/2016 1:21 PM PDTFormatting of this note might be different from the or iginal. Progress Notes by Peter Christianson MD at 03/14/16 1321 Author: Peter Christianson MD Service: Nephrology Author Type: Physician Filed: 03/14/16 1324 Date of Service: 03/14/16 132 Status: Signed Whitesmith: Peter Christianson MD (Physician) PCP : [facility] LOS: 11 days Brianna Vital is a 70 y.o. man followed for ESRD management in setting of curr ent hospitalization with decompensated HFREF I assumed nephrology care from Dr. Snell 03/09/2016. 03/04/2016 Xr Chest showed bilateral perihilar pulmonary edema. Cardiac cath with Dr. Dangelo showed moderate aortic stenosis. 2. Moderate 3-vessel coronary a rtery disease.3. Mild pulmonary hypertension. 4. Mild pulmonary artery stenosis. 5. Severe l eft ventricular diastolic dysfunction. 03/06/2016 Echo showed EF between 30 - 35 %; severe aortic stenosis; moderate pulmonary hype rtension. 03/09/2016 Dialysis with 2 L UF 03/10/2016 S/p PCI with Dr. Sweet which showed - Severe Mid LAD with FFR 0.63 - Severe first diagonal - Successful PTCA/stent proximal first diagonal using 2.25X15 mm Xience Alpine - Successful PTCA/stent proximal to mid LAD using 3.25X38 mm Xience Alpine MESSI, postdilated using 3.25 noncompliant balloons. - Successful kissing balloons of LAD and diagonal bifurcation ising noncompliant balloons. Plan was for - ASA 81 mg for life - Ticagrelor 90 mg BID for 12 month - Integrelin for 12 hours - Continue carvedilol, atorvastatin - Hold amlodipine, restart in a day if BP elevated. - plan for staged PCI RCA 03/11/2016 He was seen on HD with RN "David". No complications identified. 03/12/2016 03/13/2016 He was seen on HD with RN "Liana". No complications during Rx identified. He had cardiac cath and PCI with Dr. Sweet which showed severe , mean gradient 39.9 mmHg . He had successful PTCA/stent proximal and mid RCA using 2.75X23 and 2.5X38 mm overlapping Xience Rickie Failed Perclose closure left BUSINESS SUPPORT COORDINATOR, hemosasis Achieved using manual compression and FemSt op 03/14/2016 He feels well and is looking forward to going home today. There is no fever, chills, nausea, vomiting, diarrhea, chest pain, cough. He is nonoliguric . ROS: As in History of Present Illness. 7 area ROS was done and was otherwise negative. Examination: Constitutional: Alert, awake, oriented sitting up in chair comfortably. HEENT: Thick neck with no JVD, non icteric sclera. Cardiovascular: S1 no friction rub. No S3. Systolic murmur at apex with radiation to the b ack and up to the carotids LUNGS:: Effort fair. Reduced AE at bases. Abdominal: Soft, No distension and no mass. No rebound tenderness and no guarding. Musculoskeletal: No gross deformity, EXT: No lower extremity edema . Neurological: Speech fluent. Sensorium normal. Alert, awake, oriented. Skin: Skin is warm and dry. No rashes, lacerations, erythema or jaundice. HD access: Right IJ CVC Right UE AVF (immature) The following portions of the patient's history were reviewed and updated as appropriate: l aboratory data, radiologic studies, allergies, current medications, and problem list. Past m edical, surgical, social, and family history was also reviewed. Past history summarized as a todd. Significant PMH: ESRD. He was started on HD by Dr. Espinosa 02/2016. Primary printed circuit layout taper is Dr. Ly. He i s s/p right UE AVF placement by Dr. Dias 02/2016 Severe Family/social history: Noncontributory. He lives in [place] with his family. He is a life long non smoker. Vital Signs: BP 108/58 mmHg | Pulse 64 | Temp(Src) 97.6 F (36.4 C) (Oral) | Resp 20 | Ht 1.753 m (5' 9") | Wt 91.8 kg (202 lb 6.1 oz) | BMI 29.87 kg/m2 | SpO2 96% Lab Results Component Value Date BUN 36* 03/14/2016 CREATININE 5.1* 03/14/2016 EGFR 12* 03/14/2016 NA 137 03/14/2016 K 4.1 03/14/2016 CL 98* 03/14/2016 CO2 27 03/14/2016 CA 8.4* 03/14/2016 PHOS 3.2 03/14/2016 MG 2.2 03/14/2016 ALB 2.5* 03/09/2016 HGB 8.1* 03/14/2016 Problem list: ESRD (stable) Severe (stable) HFREF (stable) CAD with NSTEMI (stable) Severe anemia (stable but severe) Secondary hyperparathyroidism with hyperphosphatemia (stable) Assessment and Recommendations: Brianna Vital is a 70 y.o. man with nonoliguric ESRD as per PMH He is hemodynamically stable and is s/p cardiac cath with PCI with Dr. Sweet and s/p PCI a s above with plan elective TAVR at [facility]. HFREF is minimally decompensated., He is going to be discharged and Plan is for outpatient HD MWF using right IJ CVC at [facility]. UF as tolerated Continue LANE with target Hb of 10 to 11. Continue current medications including ASA, Ticargrelor, statin, BB for CAD/HFREF Anticipate AVF maturation and use in 8 to 12 weeks. Anticipate discharge today. He did indicate wanting to be referred to [facility] (unclear if he meant [facility] or [facility]) for [facility] as his brother had been there and was "treated well". FU with Dr. Dangelo as outpatien t regarding same. Diet: 1 gm/kg protein, 1 gm PO4, restricted diet. Dose all meds for an eGFR of less than 15 ml/min/1.73 m2. No use of NSAIDs (including DUKE 2 inhibitors). No use of Magnesium or aluminum containing antacids. No use of Magnesium or phosphorus containing laxatives No Fluid restriction. Strict I/O. Daily weights. Keep in positive balance. PETER CHRISTIANSON MD 03/14/2016 Portions of my previous notes have been carried over for continuity of care. Discussed with Dr. Hernandez He was seen earlier in the day and charting completed later after rounds. Dictation software, Screen Tonic, was used which may contain error for similar sounding words latesha n after review. Personal communication requested for any clarification. Prognosis is guarded in view of multiple comorbid illnesses and ESRD and severe . aspirin 81 mg Oral Daily with breakfast atorvastatin 80 mg Oral Nightly carvedilol 6.25 mg Oral BID WC cholecalciferol 1,000 Units Oral QPM diphenhydrAMINE 50 mg Oral Once diphenhydrAMINE 50 mg Oral Once famotidine 20 mg Oral Once famotidine 20 mg Oral Once heparin (porcine) 1,000 Units Intracatheter Once per day on Fri heparin (porcine) 500 Units Intracatheter Once per day on Fri heparin (porcine) Intracatheter Daily hydrALAZINE 10 mg Oral TID insulin glargine 60 Units Subcutaneous QAM insulin lispro (human) 0-3 Units Subcutaneous Nightly insulin lispro (human) 0-6 Units Subcutaneous TID AC lidocaine 10 mL Infiltration Once lidocaine 20 mL Intradermal Once pantoprazole 40 mg Intravenous BID sevelamer 1,600 mg Oral TID WC sitagliptan 25 mg Oral Daily terazosin 10 mg Oral Nightly ticagrelor 90 mg Oral BID Tali Brunner, PT - 1 11:40 AM PDT Therapy Progress Note by Tali Cavazos PT at 03/14/16 1140 Author: Tali Cavazos PT Service: (none) Author Type: Physical Therapist Filed: 03/14/16 1251 Date of Service: 03/14/16 1140 Status: Signed Whitesmith: Tali Cavazos PT (Physical Therapist) 03/14/16 1140 PT Last Visit PT Received On 03/14/16 Reason for Treatment Deconditioning Requires PT Follow Up Yes Follow up PT Only? Yes (For updated d/c rec) Focus for Next Treatment Formal Balance Assessment;Equipment Trial (Needs further practice with 4WW) PT Eval/Reassessment Date 03/14/16 Assistance Required 1 person Precautions Other Precautions Fall precautions, monitor vitals Other Comments Comments Pt resting in chair with family present when PT arrived, agreeable to therapy. Ti me spent procuring 4WW for trial and portable pusle oximeter to monitor O2 sats as pt is now off suplemental O2; tx time also extended d/t slabber attempting to draw blood during sess ion. VS at rest in sitting: HR 69 SpO2 95% on RA BP 108/55. Denies pain. Pt reports some dizziness ; notified RN who checked BG; was 246. D/t elevated BG and dizziness, mobility was limited to STS for practice with brakes on 4WW and some forward/backward stepping at bedsid e. Pt then assisted back into recliner, VSS post-activity. denies pain. Pt resting comfort ably with call light/needs in reach and chair alarm activated, NSG present. Cognition Overall Cognitive Status WFL Orientation Level Oriented Bed Mobility Scooting Standby assist Transfers Sit to/from Stand Standby assist;Minimal assist (steadying/contact guard) (CGA) Mobility Ambulation Assistance Verbal instruction;Visual instruction (CGA) Maximal Ambulation Distance (feet) 3ft x 4 Total Ambulation Distance (feet) 12ft Distance limited by? Therapist/staff discretion Pattern Alternating;Decreased garret;Right swing foot doesn't pass stance foot;Left swing foot doesn't pass stance foot Assistive Device Walker 4 wheeled Modalities Other Therapy ED on safe use of AD, progress towards goals, safety during mobility, use of call light. Activity Tolerance Activity Tolerance Treatment limited secondary to medical complications Nurse Made Aware RN Alana Safety Devices Safety Devices in Place (Call light and needs in reach, chair alarm activated) Plan Treatment/Interventions Continue per Primary PT POC Progress Progressing toward goals PT Frequency 5-7x/wk;2-3x/wk;Once per day Care Duration (# of days) 7 # of days Recommendation Recommendations Other (comment);Acute OT (Home assist vs. SNF) Equipment Recommended Walker 4 wheeled (Pending further practice with AD) Barriers to Discharge Physical Deficits Impacting Functional [place] Recommendation Comments Pt with decreased activity tolerance at this time, likely secondary to elevated BG; would benefit from continued assessment and further training with 4WW; anti cipate improvements in functional mobility along with medical status. Brianna Berg MD - 03/13/2016 4:10 PM PDT Progress Notes by Brianna Hernandez MD at 03/13/16 1610 Author: Brianna Hernandez MD Service: Hospitalist Author Type: Physician Filed: 03/14/16 1026 Date of Service: 03/13/16 1610 Status: Signed Whitesmith: Brianna Hernandez MD (Physician) Related Notes: Original Note by Brianna Hernandez MD (Physician) filed at 03/13/16 1617 [facility] Service: Hospitalist Progress Note Pt: Brianna Zahraa AGE/SEX: 70 y.o. male : 1945 ROOM: 4465/4465-1 " Patient Summary: 70-year-old male with a history of stage V chronic kidney disease (fistula formation [address] Dias), presented with respiratory distress, non-STEMI, and and acute on chronic suzanne l failure. Initially treated with IV Lasix with minimal improvement, patient developed worse ankur pulmonary edema, patient required emergent hemodialysis, with a right IJ hemodialysis c atheter placed on the and underwent first hemodialysis on the . Dr. Dangelo performed heart catheterization. Found to have moderate three-vessel disease and s evere aortic stenosis. Evaluated by Dr. Pantoja, deemed high risk, as a result Dr. Sweet to perform staged PCI. Patient underwent heart catheterization yesterday, stent placed to prox imal first diagonal and mid LAD. Patient is scheduled for a tentative PCI to RCA on . Patient will then be referred for elective TAVR - Patient with recurrent episodes of dyspnea, on and off BiPAP. Yesterday after a procedure dyspnea, BiPAP resumed at 30 percent FiO2, presently undergoing hemodialysis and feeling im proved. Presently denies any chest pain, breathing improved, no nausea no emesis. "......per progr ess note by Dr. Chanel on 03/11/16 TODAY'S DATE: 03/13/2016 Hospital Day: LOS: 10 days SUBJECTIVE: 03/12/2016 : No chest pain or shortness of breath. Feels to be well. Sitting in a chair eati ng dinner. Did not require BiPAP since this morning. Plan for additional PCI with stent plac ement potentially tomorrow. Case discussed with Dr. Christianson. 03/13/2016: The patient is awaiting for secondary cardiac catheterization today as part of t he planned staged procedure to address his significant coronary artery disease which was mihir med non-operable by cardiothoracic surgery. The patient subsequently will need to have elect ej TAVR for his severe aortic valve stenosis. The patient had no chest pain. No shortness o f breath. He did not require p.r.n. BiPAP usage as he has in the past. Review of Systems: Review of Systems Constitutional: Negative for fever, chills and malaise/fatigue. HENT: Negative for hearing loss and tinnitus. Eyes: Negative for blurred vision, double vision and redness. Respiratory: Negative for cough, hemoptysis and sputum production. Cardiovascular: Negative for chest pain, palpitations and PND. Gastrointestinal: Negative for heartburn, nausea, vomiting, blood in stool and melena. Genitourinary: Negative for dysuria, urgency and flank pain. Musculoskeletal: Negative for myalgias and neck pain. Skin: Negative for itching. Neurological: Negative for dizziness, tingling, tremors, focal weakness, seizures, loss of consciousness, weakness and headaches. Endo/Heme/Allergies: Negative for polydipsia. Psychiatric/Behavioral: Negative for depression, suicidal ideas and substance abuse. Scheduled Medications aspirin 81 mg Oral Daily with breakfast atorvastatin 80 mg Oral Nightly carvedilol 6.25 mg Oral BID WC cholecalciferol 1,000 Units Oral QPM heparin (porcine) 1,000 Units Intracatheter Once per day on Fri heparin (porcine) 500 Units Intracatheter Once per day on Fri heparin (porcine) Intracatheter Daily hydrALAZINE 10 mg Oral TID insulin glargine 60 Units Subcutaneous QAM insulin lispro (human) 0-3 Units Subcutaneous Nightly insulin lispro (human) 0-6 Units Subcutaneous TID AC lidocaine 10 mL Infiltration Once pantoprazole 40 mg Intravenous BID sevelamer 1,600 mg Oral TID WC sitagliptan 25 mg Oral Daily terazosin 10 mg Oral Nightly ticagrelor 90 mg Oral BID Continuous Infusions dextrose PRN Medications acetaminophen OR acetaminophen, dextrose, dextrose, dextrose, fentaNYL, glucagon, gluca jair, heparin (porcine), HYDROcodone-acetaminophen OR HYDROcodone-acetaminophen, midazola m, nitroGLYCERIN, ondansetron OR ondansetron, phenylephrine, polyethylene glycol, zolpid em Allergy: Allergies Allergen Reactions Penicillins Rash Reacted with a rash as a child. Has not had penicillins since. Gemfibrozil Nausea and Vomiting Questran [Cholestyramine] Nausea and Vomiting OBJECTIVE Vitals: Patient Vitals for the past 24 hrs: BP Temp Temp src Pulse Resp SpO2 Weight 03/13/16 1115 103/56 mmHg 98.5 F (36.9 C) - 76 18 99 % - 03/13/16 1106 98/52 mmHg - - 76 18 97 % 89.5 kg (197 lb 5 oz) 03/13/16 1100 109/53 mmHg - - 77 - 97 % - 03/13/16 1045 111/56 mmHg - - 76 - 97 % - 03/13/16 1030 103/54 mmHg - - 74 - 98 % - 03/13/16 1015 105/54 mmHg - - 74 - 98 % - 03/13/16 1000 105/51 mmHg - - 74 - 97 % - 03/13/16 0945 111/54 mmHg - - 76 - 96 % - 03/13/16 0930 105/55 mmHg - - 77 - 96 % - 03/13/16 0920 - - - 75 - 96 % - 03/13/16 0915 110/56 mmHg - - 75 - 96 % - 03/13/16 0900 108/53 mmHg - - 74 - 96 % - 03/13/16 0845 111/55 mmHg - - 76 - 97 % - 03/13/16 0830 111/56 mmHg - - 74 - 96 % - 03/13/16 0815 108/56 mmHg - - 75 - 97 % - 03/13/16 0800 120/60 mmHg - - 74 - 98 % - 03/13/16 0745 123/55 mmHg - - 76 - 99 % - 03/13/16 0736 130/60 mmHg - - 74 - 100 % - 03/13/16 0735 - - - - - 100 % - 03/13/16 0720 114/58 mmHg 98 F (36.7 C) Oral 75 18 98 % - 03/13/16 07 - - - - - - 92.2 kg (203 lb 4.2 oz) 03/13/16 0333 103/51 mmHg 98.6 F (37 C) Oral 75 18 - 95.2 kg (209 lb 14.1 oz) 03/12/16 2315 100/54 mmHg 98.4 F (36.9 C) Oral 73 18 98 % - 03/12/16 1940 116/56 mmHg 97.2 F (36.2 C) Oral 72 20 98 % - I&O Detailed Table: Intake/Output Summary (Last 24 hours) at 03/13/16 1611 Last data filed at 03/13/16 1106 Gross per 24 hour Intake 2300 ml Output 4875 ml Net -2575 ml Patient Vitals for the past 96 hrs: Weight 03/13/16 1106 89.5 kg (197 lb 5 oz) 03/13/16 07 92.2 kg (203 lb 4.2 oz) 03/13/16 0333 95.2 kg (209 lb 14.1 oz) Hemodynamics Last 24hrs: Examination: Physical Exam Constitutional: He is oriented to person, place, and time. He appears well-developed. HENT: Nose: Nose normal. Mouth/Throat: No oropharyngeal exudate. Eyes: Pupils are equal, round, and reactive to light. No scleral icterus. Neck: Normal range of motion. No JVD present. Cardiovascular: Normal rate. Murmur heard. Systolic murmur is present with a grade of 5/6 Pulmonary/Chest: Effort normal and breath sounds normal. No respiratory distress. He has no wheezes. Abdomina/Gl: Soft. Bowel sounds are normal. He exhibits no distension. There is no tenderne ss. Musculoskeletal: He exhibits edema. He exhibits no tenderness. Trace BL LE edema Neurological: He is alert and oriented to person, place, and time. No cranial nerve deficit . Coordination normal. Skin: Skin is warm and dry. No rash noted. There is pallor. R IJ CVD ; RUE AVF Psychiatric: He has a normal mood and affect. His behavior is normal. LABS: Recent Labs Lab 03/13/1643103/11/[id number]/09/16114803/08/16 0707 WBC 7.41 8.56 8.29 8.80 HGB 7.5* 7.8* 8.4* 8.0* HCT 23.2* 23.7* 26.1* 24.7* PLT 197 175 168 150 NEUTOPHILPCT -- -- 78.99 77.47 MONOPCT -- -- 9.74 9.33 Recent Labs Lab 03/13/1643103/11/[id number]/09/16114803/08/16 0707 NA 137 141 140 141 K 3.8 4.2 3.8 3.6 CL 99 105 104 105 CO2 27 26 26 25 BUN 43* 32* 36* 43* CREATININE 5.8* 4.8* 4.9* 5.8* PROT -- -- 6.0* 5.5* BILITOT -- -- 0.3 0.3 ALT -- -- 14 10 AST -- -- 15 15 Phosph Diagnostic: Ir Dialysis Tunneled Cath Insert 03/04/2016 DATE OF PROCEDURE: 03/04/2016 SURGEON: Efrain Navarro MD SALES PROMOTION MANAGER: None PREOPERA TIVE DIAGNOSIS: 1. End stage renal disease requiring hemodialysis POSTOPERATIVE DIAGNOSIS: Same PROCEDURES: 1.Percutaneous access of right internal jugular vein under ultrasound guid ance and placement of tunneled hemodialysis catheter ANESTHESIA: Local anesthesia and cons cious sedation (1mg Versed, 75mcg Fentanyl) RADIATION DOSE: 10mGy FLUOROSCOPY TIME: 0.5 mi nute SPECIMEN: None ESTIMATED BLOOD LOSS: Less Than 10 ml (Minimal) BLOOD ADMINISTERED: N one COMPLICATIONS: None CONDITION: Stable INDICATIONS: This is a 70 y.o. male patient wi th end stage renal disease requiring hemodialysis.The patient has been evaluated by his neph rologist who determined that he is a suitable candidate to undergo hemodialysis. The patient understands the benefit and purpose of the planned procedure of tunneled hemodialysis sonu ter insertion is to allow the patient to receive hemodialysis while waiting for a exterminator termite hemodialysis access such as arteriovenous venous fistula or graft to be created. The patient also understands the risks and complications of this procedure which include bleeding, vess el perforation, infection, deep vein thrombosis, catheter malfunction, nerve or arterial inj ury, and pneumothorax. The patient has accepted these benefits and risks and agreed to under go the planned procedure. PROCEDURE IN DETAIL: The patient was taken to the operating room and placed on the table in the supine position. The patient's right neck and chest region w as prepped sterilely and then draped in a standard fashion. The patient was given local and conscious sedation anesthesia. Appropriate time out was performed whereby the patient and si te of surgery were identified. Percutaneous access of the right internal jugular vein was ob tained under ultrasound guidance. A 0.035' guidewire was placed in the right internal jugul ar vein and confirmed under fluoroscopy guidance. The skin tract was dilated with serial dil ators. A peel away sheath was inserted over the guidewire. A hemodialysis catheter was tunne led under the skin from the chest to the neck. Next the guidewire and inner dilator of the p eel away sheath was removed. The tunneled hemodialysis catheter was placed into the internal jugular vein over a peel away sheath. The catheter tip was positioned in the superior vena cava and the position was confirmed with fluoroscopy. Heparinized saline solution was inject ed in the double lumen tunneled hemodialysis catheter and the catheter was securely anchored to the skin using 3-0 nylon sutures. Standard dressing was applied over the tunneled hemodi alysis catheter in the usual fashion. Hemostasis was achieved without complications. The pat ient tolerated the procedure well and suffered no complications. I was present throughout e entire procedure. Xr Chest 1 View 03/04/2016 BRIANNA VITAL XR CHEST 1 VIEW 03/04/2016 6:31 PM History: 70 years. Male. Progressive dyspnea. New dialysis catheter placement. Renal failure. Congestive heart fa ilure. Technique: AP portable upright technique was performed at 1825 hours. Comparison: Findings: There is increasing opacification at the LEFT lung base, now completely o bscuring the LEFT hemidiaphragm. Perihilar moderately dense bilateral pulmonary infiltrates are again noted, mildly progressive, suggesting progressive pulmonary edema. The RIGHT smitha g base is clear. No visible RIGHT pleural effusion. Mild cardiomegaly is unchanged. The p ulmonary vasculature is obscured. A RIGHT internal jugular dialysis catheter is visualized with its tip at the junction of the superior vena cava and RIGHT atrium. 03/04/2016 1. Moderate, mildly progressive bilateral perihilar pulmonary edema. 2. Incr easing opacity of the LEFT lung base suggesting pneumonia and/or atelectasis and/or small pl eural effusion. 3. Persistent mild cardiomegaly. 4. New central venous dialysis catheter, without complication. Xr Chest 1 View 03/03/2016 This is a non-reportable procedure without a radiologist report and is used fo r image storage only Us Arm Right Mapping For Dialysis 02/29/2016 History: 70-year-old male, preoperative. Requires vein mapping Technique: Ult rasound of the bilateral lower extremity superficial systems. Prior study: None Findings: EVALUATION OF THE RIGHT: CEPHALIC VEIN proximal arm: 5.7 mm, 18 mm from the skin surface middle arm: 3.8 mm, 8.2 mm from the skin surface distal arm: 3.9 mm, 4.2 mm from the skin surface proximal forearm: 4.3 mm, 6.6 mm from the skin surface middle forearm: 3.1 mm, 4.5 mm from the skin surface distal forearm: 3.8 mm, 2.5 mm from the skin surface BRACHIAL VE IN proximal arm: 4.9 mm, 20 mm from the skin surface middle arm: 4 mm, 23 mm from the ski n surface distal arm: 4.3 mm, 10.7 mm from the skin surface BASILIC VEIN: middle arm: 6 mm, 16 mm from the skin surface distal arm: 2.8 mm, 3.9 mm from the skin surface proximal f orearm: 2.2 mm, 2.8 mm from the skin surface middle forearm: 2.2 mm, 2.3 mm from the skin surface distal forearm: 1.8 mm, 2.6 mm from the skin surface BRACHIAL ARTERY: 6.3 mm, 10.7 mm from the skin surface RADIAL ARTERY: 3.6 mm, 8.3 mm from the skin surface ULNAR ARTERY : 2.5 mm, 10.2 mm from the skin surface Atherosclerotic vascular disease: Not reported A s tenosis of the distal radial artery with a velocity elevation is noted, image 37. Atheroscl erotic calcifications are also. Thrombosis: None 02/29/2016 1. A brachiocephalic fistula may be the best choice, as the basilic vein has a low insertion point and there is a stenosis of the distal radial artery Left hand dominant patient Would correlate with individual surgical protocol for this individual patient Debbie ctronically signed by Aki Meyers MD on 02/29/2016 4:50 PM Cl Stent Drug Eluting Coronary 03/10/2016 DATE OF PROCEDURE March 03, 2016 PROCEDURES PERFORMED 1. Conscious sedation. 2. Right common femoral artery angiogram, followed by left common femoral artery angiogr am. 3. Aortoiliac artery angiogram. 4. Selective left and right common femoral artery angiog jared. 5. Selective left coronary artery angiogram. 6. Fractional flow reserve measurement of the mid left anterior descending artery with significant fractional flow reserve value o f 0.63. 7. Successful percutaneous transluminal coronary angiography and stenting of the proximal first diagonal branch of the left anterior descending artery using a 2.25 x 15-m m Xience Alpine drug-eluting stent in a T-bifurcation stenting technique with the left an terior descending. 8. Successful percutaneous transluminal coronary angiography and stenting of the mid to proximal left anterior descending artery using a 3.25 x 38-mm Xience Al pine drug-eluting stent postdilated using 3.25 and a 3.0 noncompliant balloons. 9. Succes sful kissing balloons of the bifurcation left anterior descending and first diagonal sten ts with 3.0 x 12-mm noncompliant balloon in the left anterior descending and a 2.0 x 8-mm noncompliant balloon in the diagonal stent. INDICATIONS Skc-BR-ngxnuqnoh myocardial inf arction. The patient turned down by surgery given high the high risk for surgery. HISTORY O F PRESENT ILLNESS The patient is a 70-year-old male with a history of hypertension, hyperlip idemia, diabetes mellitus type 2, and end stage renal disease who was recently started on he modialysis. He was admitted with non-ST elevation myocardial infarction. He was also found t o have severe aortic stenosis, moderately to severely reduced left ventricular ejection frac tion of 30% to 35%, and 3-vessel coronary artery disease. Cardiothoracic surgery was consult ed for consideration of bypass surgery and aortic valve replacement. The patient was found t o be at high risk for surgery. The patient's best option appeared to be percutaneous coronar y intervention and transcatheter aortic valve replacement. Please refer to Dr. Dangelo's full d iagnostic coronary artery angiogram report and consultation report. The patient was referred for percutaneous coronary intervention and FFR measurement of the mid left anterior descend ing artery. The procedure risks, benefits, and alternatives were discussed in detail with th e patient and he agreed to proceed. DESCRIPTION OF PROCEDURE The patient was brought to the cardiac catheterization laboratory in the fasting state. After informed consent was obtaine d, the patient was prepped and draped in the usual sterile fashion. Lidocaine 2% was used fo r local anesthesia of the right groin. The right femoral artery was accessed using a micropu ncture needle under fluoroscopic guidance. The femoral arteries were calcified with clear ou tline of the arteries. Subsequently, a 4-Filipino micropuncture sheath was put in place and an giogram of the right common femoral artery was done which showed mild disease of the right c ommon femoral artery. However, there were very tortuous iliac arteries. Subsequently, I trie d to advance a Versacore wire. Due to tortuosity in the iliac artery, it would not go throug h easily. I removed the Versacore wire and used a Wholey wire. Again, there was significant difficulty even with the Wholey wire. At this point, I decided to use a Glidewire, and the G lidewire was advanced. As the Glidewire was not advancing easily into the proximal common il iac artery, I used a 4-Filipino [place] catheter. The [place] catheter was advanced into the iliac artery. I wanted to evaluate the iliac artery at that point to rule out any dissection plan e as there was difficulty advancing the wire. Subsequently, we did an angiogram using the Gl marcelo catheter. The angiogram showed some decreased blood flow, and I suspected there might be a dissection. At this point, i decided to go from the left common femoral artery. The [place] catheter was removed over the wire, then a 4-Filipino 11-cm sheath was placed in the right co mmon femoral artery. Then, we checked pressures in the right common femoral artery using the sheath which showed good pressures. Subsequently, 2% lidocaine was used for anesthesia of t he left groin. The left femoral artery was accessed using a micropuncture needle under fluor oscopic guidance. Again, there was good visualization of the outline of the common femoral a rtery with calcification. Subsequently, using a 4-Filipino micropuncture sheath, we took angio gram of the left common femoral artery again showing mild calcification and mild disease in the left common femoral artery and tortuosity of the iliac arteries, although the tortuosity appeared to be less than the right iliac artery. Subsequently, the Versacore wire was advan ervin into the aorta without much difficulty. A 4-Filipino, 11-cm sheath was placed into the lef t femoral artery. I proceeded with evaluation of both iliac arteries, especially to rule out any dissection in the right iliac artery. Subsequently, a 4-Filipino Omni Flush catheter was advanced into the distal abdominal aorta and angiogram of the distal abdominal aorta and bi lateral common and external iliac arteries were obtained which showed no evidence of dissect ion or perforation in the right iliac artery or left iliac artery and showed severe tortuosi ty of the right iliac artery more than the left iliac artery. At this point, we then proceed ed with our plan of FFR of the left anterior descending artery and, if significant, to proce ed with intervention. Subsequently, given the tortuosity, I used a long sheath and, given th e anticipated bifurcation lesion in the LAD and diagonal, I choose a 7 Filipino. Subsequently, a 7-Filipino, 35-cm sheath was advanced from the left common femoral artery into the abdomina l aorta without much difficulty. The patient was given 5000 units of heparin. A guiding 7-Fr ench XB LAD 3.5 guiding catheter was advanced and used for selective engagement of the left coronary system. A blood sample was drawn for ACT. Subsequently, left coronary angiogram was done in cranial view. ACT came back 102. Subsequently, we gave another 5000 units of hepari n intravenously. This was a total of 10,000. Subsequently, an FFR wire was advanced and norm alized in the left main and advanced to the distal left anterior descending artery after the long diseased segment in the mid LAD that actually started proximal to the first diagonal b ranch. The FFR immediately went down to 0.63 even without giving intravenous adenosine, whic h indicates a hemodynamically significant lesion. Angiogram was repeated. At that time, we s ent a blood sample for another ACT. The FFR wire was advanced into the distal left anterior descending artery. Given the severe disease of the first diagonal branch, which appeared to be coming at a 90-degee angle from the left anterior descending artery, I felt the best opti on was to proceed with angioplasty, followed by stenting of the diagonal branch with T-stent ing technique. The diagonal branch was a 2.0 to 2.5-mm vessel. The LAD appeared to be a 3.25 -mm vessel. Subsequently, a BMW wire was advanced into the diagonal branch. A 2.0 x 8-mm com pliant Emerge balloon was advanced and inflated in the proximal diagonal at 6 atmospheres fo r 19 seconds. The balloon was removed. To my surprise, ACT came back again at 104 despite th e patient being given now a total of 10,000 units of heparin. At this point, we evaluated th e venous access site, and it appeared that medications and fluids had been running appropria tely. As the ACT did not change at all with 10,000 units of heparin, I felt that it would be best to have a central line just in case these medications and anticoagulants were not bein g delivered through the peripheral line. Subsequently, 2% lidocaine was used for anesthesia of the right groin. The right femoral vein was accessed using a micropuncture needle. A 4-Fr ench sheath was placed into the right femoral vein without difficulty. Subsequently, extensi on tubing was attached to the 4-Filipino venous sheath. We gave 5000 units of heparin through the central line. Also, the patient was given a double bolus of Integrilin, followed by an I ntegrilin drip. At this point, we also changed delivery of the Integrilin drip through the c entral venous line. At this point, we waited for ACT before proceeding with stenting or furt her intervention. We waited 5 minutes after the third 5000 units of heparin. The ACT was daniel cked and it was still low, so we gave another 5000 units of heparin which now came to a tota l of 20,000 units of heparin. ACT was checked using 2 different ACT machines and, again, the ACT, although improved, was still not therapeutic. It went up to 178. At this point, I felt there might be resistance to heparin with difficult anticoagulation in this patient. I deci ded to go with Angiomax. Subsequently, we gave the patient an Angiomax bolus, followed by a drip renally adjusted dose. We waited 5 minutes after the bolus and checked the ACT which we nt up to 362. At this point, we decided to proceed with intervention. Subsequently, a 2.25 x 15-mm Xience Alpine drug-eluting stent was advanced and deployed in the proximal diagonal, covering the lesion with the proximal end of the stent at the ostium of the diagonal branch ; however, not protruding into the LAD. The stent was deployed at 10 atmospheres for 17 seco nds. At this point, angiogram showed probably a plaque rupture at the proximal LAD just befo re the takeoff of the first diagonal probably initiated by advancing the stent. The was redu ction of flow in the left anterior descending artery. The patient's blood pressure started t o drop. At this point, I went quickly with intervention on the left anterior descending ana ry. A 3.0 x 30-mm compliant Emerge balloon was advanced and inflated in the mid left anterio r descending artery and the proximal left anterior descending artery just proximal to the ta keoff of the diagonal where there appeared to be a plaque rupture. The balloon was inflated at nominal atmospheres. The balloon was then advanced forward to cover the whole lesion and inflated again at 10 atmospheres for 23 seconds and 10 atmospheres for 12 seconds. Subsequen tly, a 3.25 x 38-mm Xience Alpine drug-eluting stent was advanced and, with some minor diffi culty, I was able to advance the stent to cover the lesion distally and proximally. The sten t was extending to the proximal LAD covering the lesion just before the takeoff of the first diagonal branch. The stent was deployed at 12 atmospheres for 20 seconds. There was difficu lty pulling the stent balloon. With care, trying not to have the guide deeply engaged, we tr ied to pull the balloon. However, it was not going. I inflated the balloon at 4 atmospheres and then deflated, and with that we were able to pull the stent balloon. The patient's blood pressure was still dropping to the 80s and 90s. The patient was given 100 mcg of phenylephr ine. Subsequently, repeat angiogram showed rastafari of flow in the left anterior descendi ng artery. However, the diagonal branch became occluded with an occluded stent likely due to plaque shift. The stent did not appear to be really extending into the left anterior descen ding artery. Subsequently, I tried to quickly advance a BMW wire to cross into the diagonal branch. However, there was difficulty crossing into the diagonal stent. As there was a signi ficant twist in the mid LAD stent, we decided to go with postdilation of the LAD to optimize the stent expansion first and to try to open the diagonal later. Subsequently, a 3.25 x 20- mm noncompliant Quantum balloon was advanced and we started inflation just distally at 20 at mospheres for 13 seconds with pulling backward and in overlapping fashion to the proximal pa rt of the stent at 20 atmospheres for 12 seconds and 20 atmospheres for 19 seconds. There is a part in the mid part of the stent that still had a waist despite going to high pressures of 20. The balloon was then pulled, and there was difficulty pulling the balloon. The balloo n was inflated at 4 atmospheres for 5 seconds, and then we were able to pull the balloon colby kward a little. Again, there was difficulty pulling the balloon. The balloon was advanced ag ain forward with the balloon completely inside the stent and inflated at 12 atmospheres for 15 seconds. Eventually, we were able to pull the balloon out with care not to cause dissecti on in the left main as the guide tended to go deep. Repeat angiogram showed there was still a focal waist in the mid LAD after the first diagonal, and the first diagonal remained occlu ded. I went again with a shorter balloon at 3.25 x 12-mm noncompliant Quantum balloon, advan ervin at the area of the waist, and inflated at 20 atmospheres for 15 seconds, 20 atmospheres for 11 seconds, 20 atmospheres for 37 seconds, and 20 atmospheres for 28 seconds. Repeat ang iogram again showed there was still some focal waist in the mid LAD within the stent. At thi s point, we went with a shorter balloon, a 32.5 x 8-mm noncompliant Quantum balloon, and adv anced and inflated at the area of the waist at 20 atmospheres for 24 seconds, 20 atmospheres for 50 seconds, and 22 atmospheres for 25 seconds. With that, there was improvement in the waist. However, there was still some mild waist. We tried to pull the balloon. Again, there was difficulty pulling the balloon. We did double-negative pressure in the balloon, and then the balloon was inflated at 12 atmospheres for 12 seconds in the area of the waist. We were then able to pull the balloon. At this point, I proceed with a trial to open the first chip gonal stent. I tried the BMW wire. However, it could not go through. Subsequently, a Whisper wire was advanced and initially advanced into the mid left anterior descending stent and th en pulled back to assure placement within the LAD stent. With some difficulty, I was able to cross into the diagonal branch. Subsequently, a 2.0 x 8-mm noncompliant balloon was advance d and, without much difficulty, crossed over into the diagonal branch. The balloon was infla doyle at the ostium of the first diagonal branch partly in the diagonal stent and partly in th e LAD stent at 12 atmospheres for 30 seconds. It was then advanced into the proximal diagona l branch within the stent for postdilation of the stent and inflated at 12 atmospheres for 2 0 seconds. Subsequently, the balloon was left in the ostium of the diagonal branch, partly i n the diagonal branch and partly in the LAD stent. Another balloon, a 3.0 x 12-mm noncomplia nt Quantum balloon, was advanced over the wave wire in the LAD. Both balloons were placed i n a kissing fashion with the proximal ends of the stents in the proximal part of the LAD johnna nt, however, completely within the stent. Both kissing ballooning with both balloons were in flated at 12 atmospheres for 17 seconds. Then, both balloons were deflated. Subsequently, I advanced the LAD balloon, 3.0 x 12-mm noncompliant Quantum balloon, more distally at the are a of the waist distal to the origin of the first diagonal branch and inflated at 14 atmosphe res for 12 seconds, 22 atmospheres for 24 seconds, and with that the waist had resolved and the stent there appeared to have expanded well. Subsequently, we did another final kissing b allooning with a 2.0 x 8-mm noncompliant balloon in the diagonal and a 3.0 x 12-mm noncompli ant balloon in the LAD stent. Both balloons were inflated at 12 atmospheres for 15 seconds. Both balloons were deflated. Both balloons were removed, and post-intervention angiogram the n was obtained which showed excellent results with reduction of the degree of stenosis from 75% in the LAD down to 0% and from 80% in the diagonal branch down to 0% with NISSA 3 flow. B oth stents appeared to be well expanded. No evidence of dissection or perforation. Final ang iogram in a caudal view was obtained which, again, showed excellent results with no evidence of dissection or perforation, especially with special attention to the left main which show ed no evidence of dissection. All catheters and guidewires were removed. The right femoral arterial sheath and right femoral venous sheath both were 4-Filipino, and they were secured in place with sutures. The left femoral 7-Filipino sheath was secured with sutures to be removed on the floor based on ACT. The patient had received multiple doses of Humberto-Synephrine during the intervention as blood pressure had dropped. However, at the end of the procedure blood pressure was stable at 92 systolic. Final ACT at the end of the procedure showed an ACT of 2 82. The patient was continued on Integrilin, and the Angiomax was stopped at the end of the procedure. The patient was also given a loading dose of ticagrelor 130 mg. The patient tole rated the procedure well without complications. TOTAL CONTRAST 278 mL of Isovue. Due to the complex procedure and the initial problems with access and suspicion for right iliac artery dissection with need for angiogram of the iliac arteries, in addition to the complex bifurc ation lesion in the LAD we used 48 minutes of fluoroscopy time. ESTIMATED BLOOD LOSS Less t redman 50 mL. Overall, the patient tolerated the procedure well without complications. RESULT S Aortoiliac artery angiogram and common femoral artery angiograms. 1. The right and left co mmon external iliac arteries were patent without obstructive disease. There were large ve ssels with severe tortuosity in the right more than the left, especially of the external iliac arteries. The internal iliac arteries were patent and appeared to have moderate disease distally bilaterally. 2. Mild disease of the right and left common femoral arteries with mild calcification. However, no obstructive disease. Left coronary artery angiogram . 1. The left main coronary artery trifurcates and gives rise to the left anterior descen ding, ramus intermedius, and left circumflex arteries. The left anterior descending arter y is a short vessel without disease. 2. The left anterior descending artery is a large type 3 vessel that has diffuse calcification. There is a long, calcified, tubular lesion st arting at the proximal left anterior descending artery just before the takeoff of the fir st diagonal branch and extending to the mid portion. Angiographically, it appears to be i n the range of 75%. FFR measurement across this lesion is 0.63 indicating hemodynamically significant lesion. The first diagonal branch, which is a 2.0 to 2.5-mm vessel with s evere disease proximally in the range of 80% to 90%. 3. The ramus intermedius is a small ves fidencio without obstructive disease. 4. The left circumflex artery is a nondominant vessel that gives rise to a small, tiny first marginal branch, followed by a larger second marginal branch which appeared to be the main marginal branch. The mid left circumflex artery be fore the second marginal branch had moderate disease in the range of 80%. IMPRESSION 1. Severe mid left anterior descending artery and proximal first diagonal branch disease and moderate disease of the mid left circumflex artery. 2. Successful percutaneous transluminal coronary angiography and stenting of the first diagonal branch of the left anterior desc ending artery using a 2.25 x 15-mm Xience Alpine drug-eluting stent in a T-stenting fa shion with the left anterior descending stent. 3. Successful percutaneous transluminal coron carol angiography and stenting of the mid left anterior descending extending to the proxima l left anterior descending using a 3.25 x 38-mm Xience Alpine drug eluting stent postd ilated using a 3.25 and 3.0 noncompliant Quantum balloons. 4. Successful kissing balloons of the diagonal and left anterior descending stents using a 3.0 x 12-mm noncompliant balloo n in the left anterior descending stent and a 2.0 x 8-mm noncompliant balloon in the diag onal stent. PLAN 1. The patient will need to be on aspirin 81 mg for life. 2. The patien t will need to be on Brilinta 90 mg twice a day for at least 1 year. The patient received a loading dose in the catheterization lab at the end of the procedure. 3. We will contin ue Integrilin at renally adjusted dose for 12 hours. 4. Continue carvedilol and atorvastatin . 5. The patient will need staged assessment and PCI of the right coronary artery. 6. Aft er revascularization of the right coronary artery, the patient will be referred for TAVR evaluation as an outpatient. Read by LEYLA SWEET MD 03/10/2016 03:54 P Cl Right And Left Heart Catheterization With Coronary Angio 03/04/2016 REFERRING PHYSICIANS Bret Oro MD INDICATIONS Acute non-STEMI, severe aorti c stenosis by recent echocardiography, stage 5 chronic kidney disease, being initiated on he modialysis within the next day or two. PROCEDURES 1. Right heart catheterization. 2. Left h eart catheterization. 3. Selective bilateral coronary angiographies. 4. Placement of a 6-Galindo [facility] Mynx device for hemostasis. DESCRIPTION OF PROCEDURE After informed consent was obtaine d, he was brought to the cardiac catheterization laboratory and prepped and draped in a ster ile fashion. He was given Versed 2 mg IV and fentanyl 50 mcg IV for moderate anesthesia/mckenna tion. The right femoral area was infiltrated with 20 mL of 2% Xylocaine for local anesthesia . Using modified Seldinger technique, an 8-Filipino introducer sheath was inserted into the r ight common femoral vein with a clean anterior entry. Via similar technique, a 6-Filipino intr oducer sheath was inserted into the right common femoral artery on the second attempt, as th e first attempt was unsuccessful due to probable entry into a side branch and the guidewire could not be advanced. Hemostasis was achieved with manual pressure between the 2 femoral ar eileen cannulation attempts. A 7.5-Filipino [place]ile catheter was then advanced through the katt ous sheath and under fluoroscopy, was advanced through the right heart chambers, with typica l waveforms seen and pressures measured. Cardiac output was determined by thermodilution dora hnique, as the patient required supplemental oxygen to breathe comfortably while lying flat, and Gera technique could not be performed accurately. The [place]ile catheter was then remov ed. With the use of a 0.035-inch J-tipped guidewire for catheter advancement under direct f luoroscopic visualization, first a 5-Filipino FL4, then a 6-Filipino FL35 catheter was advanced to the aortic root, and both were able engage the left main coronary artery successfully, bu t the left coronary system was underfilled. Via guidewire exchange, a 6-Filipino AL1 catheter was used to perform selective angiography of the [place] left coronary system in multiple vie ws in a standard fashion with better results, although the vessels were still slightly under filled. The same AL1 catheter was then used to perform selective angiography of the [place] r ight coronary system in multiple views in a standard fashion. The catheter was then withdraw n slightly, and a 265 cm Wholey wire was advanced across the aortic valve into the left vent ricle. The AL1 catheter was removed over the guidewire, and a 6-Filipino angled pigtail cathet er was advanced into the left ventricle. Following pressure measurements, the catheter was p ulled back across the aortic valve, with pressures measured, and then removed. A nonselectiv e angiogram through the right common femoral arterial introducer sheath revealed entry above the bifurcation of this vessel, with no evidence of bleeding and no significant vascular di sease at this level. The introducer sheath was therefore removed, and hemostasis was achieve d with application of a 6-Filipino Mynx closure device. The venous sheath was removed, and hem ostasis was achieved with manual pressure. There were no complications, and the patient tole rated the procedure well. ESTIMATED BLOOD LOSS 50 mL. CONTRAST 105 mL of Isovue. RESULTS HEMODYNAMICS 1. Right atrial pressure: Mean 8, A wave 12, V wave 10. 2. Right ventricular pr essure: 47/13. 3. Pulmonary artery pressure: 36/19, mean pressure 27 mmHg. 4. Pulmonary capi llary wedge pressure: Mean 23 mmHg, A wave 24, V wave 34. 5. Left ventricular systolic pres sure: 145/37. 6. On pullback, central aortic pressure: 105/59, mean 78 mmHg. 7. The body eliu face area calculated to 2.225 m?. 8. By femoral dilution technique, cardiac output: 9.33 L/m in. 9. Cardiac index: 4.19 L/min/m?. 10. The aortic valve area is calculated at 1.5 cm?. wit h a 40 mm [id number] gradient and 32 mm mean gradient. 11. The aortic valve area index was calculated at 0.67 cm?/m?. However, on echocardiography, the aortic valve area was calculat ed at 0.9 cm?. CORONARY ARTERIES 1. Left main: This is a large vessel arising from the left coronary cusp. It is mildly calcified but otherwise normal and trifurcates at its distal en d. 2. Left anterior descending: This is a large, type 2 vessel which reaches the apex. The p roximal segment is free of disease. The midsegment contains a long 60% area of diffuse disea se between the first and second diagonal branches. The remainder of the LAD is free of disea se and appears suitable to receive a bypass conduit. The large first sept[facility] branc h has a 60% concentric ostial stenosis. The other septal [facility] branches are somewhat sm aller but normal. The large first diagonal branch contains an 80% proximal stenosis. The sec ond and third diagonal branches are quite small. 3. Ramus intermedius: This is a medium-size vessel, with a 50% concentric ostial stenosis. The remainder of the vessel is free of disea se. 4. Left circumflex: This is a medium-size, nondominant vessel supplying a single obtuse marginal branch. The midsegment, before the obtuse marginal branch, contains a concentric 40 % to 50% stenosis. 5. Right coronary artery: This is a large dominant vessel arising from th e right coronary cusp. The proximal segment is free of disease. The early midsegment contain s a 50% eccentric stenosis, followed by a 70% concentric stenosis just before the origin of the single large right ventricular branch. From this, there is an area of diffuse disease in the midsegment that is judged to be 50% in luminal diameter reduction. The distal RCA is fr ee of disease. It gives rise to a relatively small posterior descending artery, which is nor mal, and a relatively small posterolateral ventricular branch, which is normal. 6. Due to th e elevated left ventricular end-diastolic pressure, a left ventricular cineangiogram was not performed. CONCLUSIONS 1. Via catheterization, there is only moderate aortic stenosis. How ever, there was severe aortic stenosis on his recent echocardiogram, and this will be repeat ed. 2. Moderate 3-vessel coronary artery disease. 3. Mild pulmonary hypertension. 4. Mild pu lmonary artery stenosis. 5. Severe left ventricular diastolic dysfunction. RECOMMENDATIONS He is to be started on hemodialysis today or tomorrow. A repeat echocardiogram will be done. I have asked Jesús Pantoja MD, from cardiothoracic surgery to see him regarding possible aortic valve replacement and coronary artery bypass surgery. Read by SEE DANGELO MD 10:40 A Echo Cardiac Adult Complete 03/06/2016 Patient Name: BRIANNA VITAL Date of : 1945 23 Performing Physician: SEE DANGELO MD ------REPORT ADDENDED------ INDICATIONS CONCLUSIONS -------- --- 1. This was a technically difficult study with suboptimal views. 2. Overall left ventric ular systolic function is moderate-severely impaired with, an EF between 30 - 35 %. 3. The r ight ventricle is mildly enlarged, but right ventricular systolic function is normal. 4. The left atrium is markedly dilated. 5. There is severe aortic stenosis present. 6. There is mo derate pulmonary hypertension. The right ventricular systolic pressure (pulmonary artery sy stolic pressure), as measured by Doppler, is 55 mm Hg. FINDINGS -------- Study: This was a technically difficult study with suboptimal views. Left Ventricle: Overall left ventricular systolic function is moderate-severely impaired with, an EF between 30 - 35 %. Left Ventric le: The left ventricle cavity size is normal. Left Ventricle: Left ventricular wall thickne ss is normal. Left Ventricle: The following regional wall motion abnormalities include: Le ft Ventricle: basal anteroseptal - moderately hypokinetic; Left Ventricle: mid anterosepta l - severely hypokinetic; Left Ventricle: mid inferoseptal - moderately hypokinetic; Lef t Ventricle: mid inferior - mildly hypokinetic; Left Ventricle: basal inferolateral - dysk inetic; Left Ventricle: mid anterolateral - severely hypokinetic; Left Ventricle: apical septum - severely hypokinetic; Left Ventricle: inferior apex - mildly hypokinetic; Lef t Ventricle: apical lateral -severely hypokinetic; Left Ventricle: apex - severely hypokin etic; The mid anterior wall was not well visualized. Left Ventricle: The remaining left ve ntricular segments contract normally. Right Ventricle: The right ventricle is mildly enlarge d measuring between 3.4 - 3.7 cm. Right Ventricle: The right ventricular systolic function is normal. Left Atrium: The left atrium is markedly dilated. Right Atrium: The right atrium is normal in size. Aortic Valve: The aortic valve was not well visualized. Aortic Valve: T he aortic valve is severely calcified. Aortic Valve: There is severe aortic stenosis presen t. Aortic Valve: The aortic valve area by continuity equation is 0.96 cm, Aortic V alve: The maximum velocity across the aortic valve is 4.1 m/s Aortic Valve: The maximum p ressure gradient across the aortic valve is 57 mmHg . Aortic Valve: The mean gradient acros s the aortic valve is 39 mmHg. Mitral Valve: The mitral valve is normal. Mitral Valve: Mild mitral regurgitation is present. Tricuspid Valve: Mild tricuspid regurgitation present. Tr icuspid Valve: There is moderate pulmonary hypertension. Tricuspid Valve: The right ventric ular systolic pressure (pulmonary artery systolic pressure), as measured by Doppler, is 55 m m Hg. IVC/Hepatic Veins: The IVC is dilated (>2.5cm) and does not collapse with sniff, cons istent with central venous pressures of >20mmHg. MEASUREMENTS IVC: 2.68 cm LA Major: 5.41 cm LVOT Diam: 2.12 cm RA Major: 4.76 cm RVIDd: 3.70 cm LAESV(A-L): 48.76 ml LAAs A2C: 15.95 cm2 LAESV A-L A2C: 46.10 ml LAESV MOD A2C: 43.40 ml LALs A2C: 4.68 cm LAAs A4C: 16.87 cm2 LAESV A-L A4C: 49.93 ml LAESV MOD A4C: 47.22 ml LALs A4 C: 4.83 cm IVC diameter: 3.00 cm IVC collapse: 1.74 cm IVC % collapse: 38.92 % HR: 90.38 BPM AV maxP.53 mmHg AV meanP.77 mmHg AV Vmax: 4.12 m/s AV Vmean: 3. 01 m/s AV VTI: 82.82 cm ZEKE Vmax: 0.94 cm2 ZEKE (VTI): 0.96 cm2 LVCO Dopp: 7.18 l/min HR: 89.97 BPM LVOT maxP.91 mmHg LVOT meanP.03 mmHg LVSV Dopp: 79.80 ml LVOT Vmax: 1.10 m/s LVOT Vmean: 0.82 m/s LVOT VTI: 22.46 cm TR maxP.92 mmHg TR Vmax : 2.95 m/s TV A Doe: 0.59 m/s TV Dec Gibson: 5.92 m/s2 TV Dec Time: 104.14 ms TV E Ve l: 0.61 m/s TV E/A Ratio: 1.04 Border Machine Operator: DONY Authenticated by: See stuart Date/Time: -- [id number] 03/06/2016 1. This was a technically difficult study with suboptimal views. 2. Overall lef t ventricular systolic function is moderate-severely impaired with, an EF between 30 - 35 %. 3. The right ventricle is mildly enlarged, but right ventricular systolic function is meseret l. 4. The left atrium is markedly dilated. 5. There is severe aortic stenosis present. 6. Th ere is moderate pulmonary hypertension. The right ventricular systolic pressure (pulmonary artery systolic pressure), as measured by Doppler, is 55 mm Hg. Ir [facility] 03/04/2016 This Point of Care (POC) ultrasound image has been reviewed and interpreted by the physician identified as the performing physician in the associated interpretation and report. Past Medical History Diagnosis Date Hypertension Hyperlipidemia Diabetes mellitus, type 2 ([facility]) 2005 Insulin-requiring, with diabetic Nephropathy, Retinopathy Sleep apnea dx light apnea Chronic kidney disease Stage IV-V Anemia of chronic renal failure 01/24/2012 Acute upper GI bleed 01/18/2014 PUD on EGD, ulcer cauterized Stroke ([facility]) 2010 right surface stroke, residual left hand numbness/tingling Acute diastolic congestive heart failure ([facility]) 03/03/2016 Aortic valve stenosis, severe Vitamin D deficiency Skin cancer NSTEMI (non-ST elevated myocardial infarction) ([facility] [facility] [place] 03/03/2016 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 ([facility] [place] moderate 3-vessel CAD Paroxysmal atrial fibrillation ([facility] [place] 03/04/2016 HFrEF (heart failure with reduced ejection fraction) ([facility] [place] 03/09/2016 ADHF (acute decompensated heart failure) ([facility] [place] 03/09/2016 Coronary artery disease involving [place] coronary artery of [place] heart S/P PTCA (percutaneous transluminal coronary angioplasty) 03/10/2016 D1 - 2.25X15 mm Xience Alpine MESSI; mid LAD - 3.25X38 mm Xience Alpine MESSI Past Surgical History Procedure Laterality Date Colonoscopy Cataract extraction Bilateral 2004? Esophagogastroduodenoscopy N/A 01/18/2014 Procedure: ESOPHAGOGASTRODUODENOSCOPY; Surgeon: Caitlyn Khan MD; Location: [facility]; Service: Gastroenterology; Laterality: N/A; Av fistula placement Right 03/01/2016 Procedure: AV FISTULA; Surgeon: Vivek Dias MD; Location: [facility]; Service: Vascul ar; Laterality: Right; brachiocephalic fistula creation Skin cancer excision mid forehead Coronary angioplasty with stent placement 03/10/2016 D1 - 2.25X15 mm Xience Alpine MESSI; mid LAD - 3.25X38 mm Xience Alpine MESSI PROBLEM LIST Principal Problem: NSTEMI (non-ST elevated myocardial infarction) ([facility] [place]) Active Problems: Type 2 diabetes mellitus with diabetic nephropathy ([facility] [place]) Obesity Anemia of chronic renal failure, stage 5 ([facility] [place]) Moderate aortic stenosis Aortic stenosis Acute diastolic congestive heart failure (HCC) ESRD (end stage renal disease) (HCC) Difficulty in walking Debility, unspecified 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 (H CC) Paroxysmal atrial fibrillation (HCC) HFrEF (heart failure with reduced ejection fraction) (HCC) ADHF (acute decompensated heart failure) (HCC) Coronary artery disease involving [place] coronary artery of [place] heart S/P PTCA (percutaneous transluminal coronary angioplasty) ASSESSMENT & PLAN Bkwjfvm-xpo-kyni-old male with extensive past medical history including coronary artery dis ease; end-stage renal disease, on dialysis; heart failure with reduced ejection fraction; an d severe aortic valve stenosis who presents with the followin. Acute coronary syndrome. Non-ST elevation myocardial infarction. Patient underwent first cardiac catheterization in March 2016 during which he received 2 drug-eluting stent--D1 a nd mid LAD by Dr. Dangelo. Planned for second- stage cardiac catheterization today to address t he RCA. Patient was evaluated by cardiothoracic surgery and was found to be too high risk fo r CABG and/or aortic valve replacement. Outpatient referral to specialized center for evalua tion for elective TAVR. Appreciate marine extension agent's input, followup and intervention. 2. Lzhlp-hj-bwjgcin systolic/ diastolic heart failure. Latest EF showed ejection fraction o f 30% with severe aortic stenosis and moderate pulmonary hypertension. Continue p.r.n. BiPAP . Thankfully, patient did not require BiPAP in the last nearly 48 hours. Continue judicious O2 supplementation currently at 3 to 4 liters of O2 via nasal cannula. 3. Severe aortic valve stenosis with worsening gradient. Outpatient referral for TAVR. 4. Chronic kidney disease with end-stage renal disease on dialysis. Patient has a right IJ central venous catheter for dialysis which will be continued. He has a right upper extremity fistula which is in the process of maturing. 5. Hemodialysis as per nephrology. Appropriate Dr. Christianson's input and recommendations. Cont inuation of outpatient dialysis per Dr. Ly in the [place] area. 6. Type 2 diabetes mellitus. Continue current insulin regimen. Blood glucose levels have be en delivery 200. Today ranging from 136 to 105. Patient, however, has been n.p.o. for his pr ocedure. 7. Hypertension. Continue current antihypertensive medication therapy including carvedilol, hydralazine. Blood pressure has been well controlled actually in optimal range ranging from 100 to 111 mmHG. 8. Ambulatory dysfunction. Severe deconditioning. Multiple comorbidities. Continue PT thera py, engagement and treatment. Outpatient referral to PT. DVT prophylaxis. SCDs and subcutane ous heparin. 9. Disposition: Patient is to consider potential longterm facility placement because of his deconditioning. 10. Patient's updated at bedside. All questions answered to her satisfaction. Brianna Hernandez MD 03/13/2016 4:11 PM onversion Transa ction, Provider Unknown - 03/13/2016 4:10 PM PDT Progress Notes by Linda Staton RD at 03/13/161609 Author: Linda Staton RD Service: (none) Author Type: Registered Dietitian Filed: 03/13/161609 Date of Service: 03/13/161609 Status: Signed Whitesmith: Linda Staton RD (Transplant Rn) Cosigner: Lidia Davila RD at 03/13/16 16 13 03/13/16 1520 Subjective Timepoint Follow up Pt c/o Pt triggered for pressure ulcer. Pt is NPO for a procedure. He reports poor po and f amily seemed concerned that his intake is inadequate. Reported by Family Fluid / Beverage Intake Oral Fluids Amount NPO Liquid Meal Replacement or Supplement When diet is resumed, Recommend Rainer TID at snack ti mes. Pt prefers orange flavor Food Intake Amount of Food When po diet was ordered, pt states he liked the hamburgers and salmon but f or the most part, pt is not eating as much as he usually does. Per RN charting, pt ate 100% of breakfast and lunch yesterday. Type of Food / Meals NPO Nutrition-Focused Physical Findings Overall Appearance Pt on nasal cannula Extremities, Muscles and Bones BLE 1+ edema Skin Stage 2 Pressure Ulcer on buttock Anthropometrics Weight change Wt down 8.9 kg since admit. Pt is 6.2 L fluid negative. It is likely pt is at his dry wt after HD today but will continue to monitor for loss of LBM Biochemical data, medical tests, and procedures reviewed Biochemical data, medical tests, and procedures reviewed BGs in the upper 100-200s. Humalog ordered. BUN 43 (H), Cr 5.8 (H)-HD ordered. Recommend checking Phos levels-Renvela ordered. Estimated Energy Needs Total Energy Estimated Needs 4882-5401 kcal Method for Estimating Needs 28-30 kcal/kg/day based on adjusted wt of 79.1 kg Estimated Protein Needs Total Protein Estimated Needs 103-142 g Method for Estimating Needs 103-142 g/kg/day based on adjusted wt of 79.1 kg Recommendations Recommended energy needs Recommend diabetic diet. Recommend checking Phos. Provide Rainer TI D at snack times to promote wound healing. Encourage intake of protein with high bioavailabi lity such as meat and eggs to promote wound healing. Will continue to monitor as indicated. Nutritional Risk Nutritional risk High Follow up date 03/16/[address] onver rosie Velazquezaction, Provider Unknown - 03/13/2016 2:45 PM PDT Therapy Progress Note by Adelia Piedra PT at 03/13/16 1445 Author: Adelia Piedra PT Service: (none) Author Type: Physical Therapist Filed: 03/13/16 1524 Date of Service: 03/13/161444 Status: Signed Whitesmith: Adelia Piedra PT (Physical Therapist) 03/13/16 1445 PT Last Visit PT Received On 03/13/16 Reason for Treatment Deconditioning Requires PT Follow Up Yes Follow up PT Only? No Focus for Next Treatment Formal Balance Assessment;Equipment Trial (trial 4ww) Precautions Other Precautions fall precautions Other Comments Comments Pt in bed, agreeable to PT. To have cath this PM. Pt requires min-modA for movin g in bed, otherwise SBA for transfers and gait. Needs continued training for bed mobility a s unable to assist d/t recent hip surgery. Would benefit from 4ww trial d/t deconditio ankur and continued monitoring of vitals. Reassess bed mobility 03/14 to determine needs for return home. Cognition Overall Cognitive Status WFL Orientation Level Oriented Bed Mobility Supine to Sit Mod assist (BLEs OOB or trunk to upright);Min assist (1 LE OOB) Scooting Moderate assist Transfers Sit to/from Stand Standby assist Bed to/from Chair Standby assist Mobility Ambulation Assistance Standby assist;Verbal instruction;Visual instruction Maximal Ambulation Distance (feet) 130 Total Ambulation Distance (feet) 130 Distance limited by? Patient's ability Pattern Alternating;Decreased garret Assistive Device Walker front wheeled Modalities Other Therapy ed on mobility techniques, ad use, symptom monitoring, activity pacing and pr ogression, frequency of ambulation, poc and recommendations Activity Tolerance Activity Tolerance Patient limited by fatigue Nurse Made Aware RN Cassi notified of pt mobility status and recommendations Safety Devices Safety Devices in Place (call light in reach, family in room) Plan Treatment/Interventions Continue per Primary PT POC Progress Progressing toward goals Recommendation Recommendations (see comments) Equipment Recommended Walker 4 wheeled Recommendation Comments Pt requires modA for bed mobility but otherwise SBA. Anticipate pt likely able to return home w/ and some additional family support. However, concern ove r activity tolerance and ADL's. May benefit from OT eval for ADL assessment and connection w/additional resources incl meals on wheels d/t limited support from . Pre/peak/post Position BP Pulse rate O2 sats L/min sitting 105/74 End amb 105/73 Peter Roque MD - 03/13/2016 11:12 AM PDTFormatting of this note might be different from the or iginal. Progress Notes by Peter Christianson MD at 03/13/16 1112 Author: Peter Christianson MD Service: Nephrology Author Type: Physician Filed: 03/13/16 1116 Date of Service: 03/13/161111 Status: Signed Whitesmith: Peter Christianson MD (Physician) PCP : [facility] LOS: 10 days Brianna Vital is a 70 y.o. man followed for ESRD management in setting of curr ent hospitalization with decompensated HFREF I assumed nephrology care from Dr. Snell 03/09/2016. 03/04/2016 Xr Chest 1 (seen by myself) showed bilateral perihilar pulmonary edema. Cardiac cath with Dr. Dangelo showed moderate aortic stenosis. 2. Moderate 3-vessel coronary a rtery disease.3. Mild pulmonary hypertension. 4. Mild pulmonary artery stenosis. 5. Severe l eft ventricular diastolic dysfunction. 03/06/2016 Echo showed EF between 30 - 35 %; severe aortic stenosis; moderate pulmonary hype rtension. 03/09/2016 Dialysis with 2 L UF 03/10/2016 S/p PCI with Dr. Sweet which showed - Severe Mid LAD with FFR 0.63 - Severe first diagonal - Successful PTCA/stent proximal first diagonal using 2.25X15 mm Xience Alpine - Successful PTCA/stent proximal to mid LAD using 3.25X38 mm Xience Alpine MESSI, postdilated using 3.25 noncompliant balloons. - Successful kissing balloons of LAD and diagonal bifurcation ising noncompliant balloons. Plan was for - ASA 81 mg for life - Ticagrelor 90 mg BID for 12 month - Integrelin for 12 hours - Continue carvedilol, atorvastatin - Hold amlodipine, restart in a day if BP elevated. - plan for staged PCI RCA 03/11/2016 He was seen on HD with RN "David". No complications identified. 03/12/2016 03/13/2016 He is seen on HD with RN "Liana". No complications during Rx identified. There is no documented fever, chills, nausea, vomiting, diarrhea, chest pain, cough. He is nonoliguric. Apparently he did not require BIPAP ON. ROS: As in History of Present Illness. 7 area ROS was done and was otherwise negative. Examination: Constitutional: Sleeping in bed comfortably HEENT: Thick neck with no JVD, non icteric sclera. Cardiovascular: S1 no friction rub. No S3. Systolic murmur at apex with radiation to the b ack and up to the carotids LUNGS:: Effort fair. Reduced AE at bases. Abdominal: Soft, No distension and no mass. No rebound tenderness and no guarding. Musculoskeletal: No gross deformity, EXT: No lower extremity edema . Neurological: Sleeping. Skin: Skin is warm and dry. No rashes, lacerations, erythema or jaundice. HD access: Right IJ CVC Right UE AVF (immature) The following portions of the patient's history were reviewed and updated as appropriate: l aboratory data, radiologic studies, allergies, current medications, and problem list. Past m edical, surgical, social, and family history was also reviewed. Past history summarized as a todd. Significant PMH: ESRD. He was started on HD by Dr. Espinosa 02/2016. Primary printed circuit layout taper is Dr. Ly. He i s s/p right UE AVF placement by Dr. Dias 02/2016 Severe Family/social history: Noncontributory. He lives in [place] with his family. He is a life long non smoker. Vital Signs: BP 109/53 mmHg | Pulse 77 | Temp(Src) 98 F (36.7 C) (Oral) | Resp 18 | Ht 1.753 m (5' 9 ") | Wt 95.2 kg (209 lb 14.1 oz) | BMI 30.98 kg/m2 | SpO2 97% Lab Results Component Value Date BUN 43* 03/13/2016 CREATININE 5.8* 03/13/2016 EGFR 10* 03/13/2016 NA 137 03/13/2016 K 3.8 03/13/2016 CL 99 03/13/2016 CO2 27 03/13/2016 CA 8.6 03/13/2016 PHOS 6.5* 03/04/2016 MG 2.4 03/04/2016 ALB 2.5* 03/09/2016 HGB 7.5* 03/13/2016 Problem list: ESRD (stable) Severe (stable) HFREF (stable) CAD with NSTEMI (stable) Severe anemia (stable but severe) Secondary hyperparathyroidism with hyperphosphatemia (stable) Assessment and Recommendations: Brianna Vital is a 70 y.o. man with nonoliguric ESRD as per PMH He is hemodynamically stable and is s/p cardiac cath with PCI with Dr. Sweet and s/p PCI a s above with plan elective TAVR at [facility]. HFREF is minimally decompensated., Plan for HD MWF using right IJ CVC. UF as tolerated Continue LANE with target Hb of 10 to 11. Continue current medications including ASA, Ticargrelor, statin, BB for CAD/HFREF Anticipate AVF maturation and use in 8 to 12 weeks. Anticipate discharge today after HD and PCI to RCA. He did indicate wanting to be referred to [facility]clear [facility] [place] [facility] for [facility] as his brother had been there and was "treated well". FU with Dr. Dangelo as outpatien t regarding same. Diet: 1 gm/kg protein, 1 gm PO4, restricted diet. Dose all meds for an eGFR of less than 15 ml/min/1.73 m2. No use of NSAIDs (including DUKE 2 inhibitors). No use of Magnesium or aluminum containing antacids. No use of Magnesium or phosphorus containing laxatives No Fluid restriction. Strict I/O. Daily weights. Keep in positive balance. PETER CHRISTIANSON MD 03/13/2016 Portions of my previous notes have been carried over for continuity of care. Discussed with Dr. Hernandez He was seen earlier in the day and charting completed later after rounds. Dictation software, Screen Tonic, was used which may contain error for similar sounding words latesha adarsh after review. Personal communication requested for any clarification. Prognosis is guarded in view of multiple comorbid illnesses and ESRD and severe . aspirin 81 mg Oral Daily with breakfast atorvastatin 80 mg Oral Nightly carvedilol 6.25 mg Oral BID WC cholecalciferol 1,000 Units Oral QPM heparin (porcine) 1,000 Units Intracatheter Once per day on Fri heparin (porcine) 500 Units Intracatheter Once per day on Fri heparin (porcine) Intracatheter Daily hydrALAZINE 10 mg Oral TID insulin glargine 60 Units Subcutaneous QAM insulin lispro (human) 0-3 Units Subcutaneous Nightly insulin lispro (human) 0-6 Units Subcutaneous TID AC lidocaine 10 mL Infiltration Once pantoprazole 40 mg Intravenous BID sevelamer 1,600 mg Oral TID WC sitagliptan 25 mg Oral Daily terazosin 10 mg Oral Nightly ticagrelor 90 mg Oral BID onversion Transactio n, Provider Unknown - 03/13/2016 4:58 AM PDT Nurse Progress Note by Meli Miles RN at 03/13/16457 Author: Meli Miles RN Service: (none) Author Type: Registered Nurse Filed: 03/13/16 8026 Date of Service: 03/13/16457 Status: Signed Whitesmith: Meli Miles RN (Registered Nurse) Blood pressures ranged from 103-116 systolic. Pt remained on 3L nasal cannula throughout ni ght maintaining saturation 98-100%. 0600 hydralazine dose held for dialysis, sonja removed p er order. Meli Miles RN Peter Roque MD - 03/12/2016 6:49 PM PDTFormatting of this note might be different from the or iginal. Progress Notes by Peter Christianson MD at 03/12/161848 Author: Peter Chrsitianson MD Service: Nephrology Author Type: Physician Filed: 03/12/161854 Date of Service: 03/12/161848 Status: Signed Whitesmith: Peter Christianson MD (Physician) PCP : [facility] LOS: 9 days Brianna Vital is a 70 y.o. man followed for ESRD management in setting of curr ent hospitalization with decompensated HFREF I assumed nephrology care from Dr. Snell 03/09/2016. 03/04/2016 Xr Chest 1 (seen by myself) showed bilateral perihilar pulmonary edema. Cardiac cath with Dr. Dangelo showed moderate aortic stenosis. 2. Moderate 3-vessel coronary a rtery disease.3. Mild pulmonary hypertension. 4. Mild pulmonary artery stenosis. 5. Severe l eft ventricular diastolic dysfunction. 03/06/2016 Echo showed EF between 30 - 35 %; severe aortic stenosis; moderate pulmonary hype rtension. 03/09/2016 Dialysis with 2 L UF 03/10/2016 S/p PCI with Dr. Sweet which showed - Severe Mid LAD with FFR 0.63 - Severe first diagonal - Successful PTCA/stent proximal first diagonal using 2.25X15 mm Xience Alpine - Successful PTCA/stent proximal to mid LAD using 3.25X38 mm Xience Alpine MESSI, postdilated using 3.25 noncompliant balloons. - Successful kissing balloons of LAD and diagonal bifurcation ising noncompliant balloons. Plan was for - ASA 81 mg for life - Ticagrelor 90 mg BID for 12 month - Integrelin for 12 hours - Continue carvedilol, atorvastatin - Hold amlodipine, restart tomorrow if BP elevated. - Will need staged PCI RCA He continued to have shortness of breath. 03/11/2016 He was seen on HD with RN "David". No complications identified. 03/12/2016 He feels good and has been walking. He denied fever, chills, nausea, vomiting, diarrhea, ch est pain, cough. He is nonoliguric. ROS: As in History of Present Illness. 7 area ROS was done and was otherwise negative. Examination: Constitutional: Alert, awake, oriented sitting up in chair comfortably. HEENT: Thick neck with no JVD, non icteric sclera. Cardiovascular: S1 no friction rub. No S3. Systolic murmur at apex with radiation to the b ack and up to the carotids LUNGS:: Effort fair. Reduced AE at bases. Abdominal: Soft, No distension and no mass. No rebound tenderness and no guarding. Musculoskeletal: No gross deformity, EXT: No lower extremity edema . Neurological: Speech fluent. No asterixis. Moves all 4 extremities. Skin: Skin is warm and dry. No rashes, lacerations, erythema or jaundice. Psychiatric: Pleasant demeanor HD access: Right IJ CVC Right UE AVF (immature) The following portions of the patient's history were reviewed and updated as appropriate: l aboratory data, radiologic studies, allergies, current medications, and problem list. Past m edical, surgical, social, and family history was also reviewed. Past history summarized as a todd. Significant PMH: ESRD. He was started on HD by Dr. Espinosa 02/2016. Primary printed circuit layout taper is Dr. Ly. He i s s/p right UE AVF placement by Dr. Dias 02/2016 Severe Family/social history: Noncontributory. He lives in [place] with his family. He is a life long non smoker. Vital Signs: BP 104/55 mmHg | Pulse 67 | Temp(Src) 98 F (36.7 C) (Oral) | Resp 20 | Ht 1.753 m (5' 9 ") | Wt 98.4 kg (216 lb 14.9 oz) | BMI 32.02 kg/m2 | SpO2 100% Lab Results Component Value Date BUN 32* 03/11/2016 CREATININE 4.8* 03/11/2016 EGFR 13* 03/11/2016 NA 141 03/11/2016 K 4.2 03/11/2016 CL 105 03/11/2016 CO2 26 03/11/2016 CA 8.2* 03/11/2016 PHOS 6.5* 03/04/2016 MG 2.4 03/04/2016 ALB 2.5* 03/09/2016 HGB 7.8* 03/11/2016 Problem list: ESRD Severe HFREF CAD with NSTEMI Severe anemia Secondary hyperparathyroidism with hyperphosphatemia Assessment and Recommendations: Brianna Vital is a 70 y.o. man with nonoliguric ESRD as per PMH He is hemodynamically stable and is s/p cardiac cath with PCI with Dr. Sweet and s/p PCI a s above with plan elective TAVR at [facility]. HFREF is minimally decompensated., Plan for HD MWF using right IJ CVC. UF as tolerated Continue LANE with target Hb of 10 to 11. Continue current medications including ASA, Ticargrelor, statin, BB for CAD/HFREF Anticipate AVF maturation and use in 8 to 12 weeks. Anticipate discharge tomorrow after HD and PCI to RCA. He did indicate wanting to be referred to [facility] for T[facility] as his brother had been there and was "treated well". FU with Dr. Dangelo as outpatien t regarding same. Diet: 1 gm/kg protein, 1 gm PO4, restricted diet. Dose all meds for an eGFR of less than 15 ml/min/1.73 m2. No use of NSAIDs (including DUKE 2 inhibitors). No use of Magnesium or aluminum containing antacids. No use of Magnesium or phosphorus containing laxatives No Fluid restriction. Strict I/O. Daily weights. Keep in positive balance. PETER CHRISTIANSON MD 03/12/[address] Hernandez He was seen earlier in the day and charting completed later after rounds. Dictation software, Screen Tonic, was used which may contain error for similar sounding words latesha altamirano after review. Personal communication requested for any clarification. Prognosis is guarded in view of multiple comorbid illnesses and ESRD and severe . aspirin 81 mg Oral Daily with breakfast atorvastatin 80 mg Oral Nightly carvedilol 6.25 mg Oral BID WC cholecalciferol 1,000 Units Oral QPM heparin (porcine) 1,000 Units Intracatheter Once per day on Fri heparin (porcine) 500 Units Intracatheter Once per day on Fri heparin (porcine) Intracatheter Daily hydrALAZINE 10 mg Oral TID insulin glargine 60 Units Subcutaneous QAM insulin lispro (human) 0-3 Units Subcutaneous Nightly insulin lispro (human) 0-6 Units Subcutaneous TID AC pantoprazole 40 mg Intravenous BID sevelamer 1,600 mg Oral TID WC sitagliptan 25 mg Oral Daily terazosin 10 mg Oral Nightly ticagrelor 90 mg Oral BID onversion Transactio n, Provider Unknown - 03/12/2016 2:26 PM PDT Case Management by Jackie Daniel RN at 03/12/161425 Author: Jackie Daniel RN Service: (none) Author Type: Registered Nurse Filed: 03/12/16 1422 Date of Service: 03/12/161425 Status: Signed Whitesmith: Jackie Daniel RN (Registered Nurse) Met with pt regarding d/c planning. Pt states he will have cath/stent tomorrow and d/c home . Pt will follow as OP for TAVR. Pt states No needs at this time. Will continue to follow Martha Daniel RN, CM Tali Brunner, PT - 03/12/2016 1:05 PM PDTFormatting of this note might be different from the alok karmen. Therapy Progress Note by Tali Cavazos PT at 03/12/16 1305 Author: Tali Cavazos PT Service: (none) Author Type: Physical Therapist Filed: 03/12/16 0994 Date of Service: 03/12/16 1305 Status: Signed Whitesmith: Tali Cavazos PT (Physical Therapist) 03/12/16 1305 PT Last Visit PT Received On 03/12/16 Reason for Treatment Deconditioning Requires PT Follow Up Yes Follow up PT Only? No Focus for Next Treatment Formal Balance Assessment Assistance Required 1 person Precautions Other Precautions Fall precautions Other Comments Comments Pt resting in bed when PT arrived, agreeable to therapy. Denies pain. VS at rest in seated: BP 118/58 SpO2 95% on 3L NC HR 78. Pt able to sit up at EOB with HOB elevated and SBA; sat at EOB for 10 min as with supervision to SBA, then ambulated in hallway with FW W and 4L supplemental O2. Pt requires verbal cues for use of walker as he tends to swing wa lker about when changing direction. Also had one minor LOB corrected by PT when he attempte d to take his hand off walker while ambulating. Pt assisted into recliner with chair alarm after activity; preferred to sit on pillow rather than waffle. VS post-activity in seated: HR 71 SpO2 99% on 3L NC BP 119/63, denies pain. Patient resting comfortably with all needs in reach when PT left. Has cath procedure planned for tomorrow; may benefit from formal chiara sam assessment for d/c planning when appropriate. Cognition Overall Cognitive Status WFL Orientation Level Oriented Bed Mobility Supine to Sit Standby assist (HOB elevated) Scooting Standby assist;Minimal assist;Verbal instruction Transfers Sit to/from Stand Minimal assist (steadying/contact guard) Bed to/from Chair Minimal assist (steadying/contact guard);Verbal instruction Mobility Ambulation Assistance Minimal assist;Moderate assist (1 minor LOB noted) Maximal Ambulation Distance (feet) 60ft x 2 Total Ambulation Distance (feet) 120ft Distance limited by? Therapist/staff discretion Pattern Alternating;Decreased garret;Right swing foot doesn't pass stance foot;Left swing foot doesn't pass stance foot Assistive Device Walker front wheeled Balance Balance Yes Static Sitting Balance Static Sitting-Balance Support Feet supported Static Sitting-Level of Assistance Standby assist;Supervision Static Sitting-Comment/Duration 10 min Dynamic Sitting Balance Dynamic Sitting-Balance Support Feet supported Dynamic Sitting-Balance Lateral lean;Forward lean;Reaching across midline Sitting Dynamic Level of Assist Standby assist Dynamic Sitting-Comments/Duration 5 min Modalities Other Therapy Continued ed on safety during mobility including use of AD, use of call light Activity Tolerance Activity Tolerance Patient tolerated treatment without report of fatigue Nurse Made Aware Yes RN Vickie Safety Devices Safety Devices in Place (Call light and needs in reach, chair alarm on) Plan Treatment/Interventions Continue per Primary PT POC Progress Progressing toward goals Recommendation Recommendations Other (comment) (Anticipate home assist pending mobility s/p cath procedure) Equipment Recommended (TBD) Barriers to Discharge Physical Deficits Impacting Functional [place];Self-care Deficit s Impacting Functional [place] Recommendation Comments Pt mobilizing fairly well today with MIN A for most tasks; could be nefit from ongoing assessment for d/c planning pending cath procedure tomorrow. Could benef it from continued therapies in either SNF or setting for improved mobility, balance, and safety. unde, Tali Holden PT - 12:00 PM PDT Therapy Progress Note by Tali Cavazos PT at 03/12/16 1200 Author: Tali Cavazos PT Service: (none) Author Type: Physical Therapist Filed: 03/12/16 1202 Date of Service: 03/12/16 1200 Status: Signed Whitesmith: Tali Cavazos PT (Physical Therapist) 03/12/16 1200 PT Last Visit PT Received On 03/12/16 Reason for Treatment Deconditioning Requires PT Follow Up Unavailable Other Comments Comments Pt in the middle of eating his lunch when PT arrived; will f/u this afternoon as c ensus permits for therapy. onversion Transaction , Provider Unknown - 03/12/2016 9:45 AM PDT Nurse Progress Note by Tanya Alamo RN at 03/12/16 0945 Author: Tanya Alamo RN Service: (none) Author Type: Registered Nurse Filed: 03/12/16 0949 Date of Service: 03/12/16 0945 Status: Signed Whitesmith: Tanya Alamo RN (Registered Nurse) Gave report to GUSTAVO Johnston who assumed care of pt. See Jordan MD - 03/12/2016 9:08 AM PDTFormatting of this note might be different from the o riginal. Progress Notes by See Dangelo MD at 03/12/16 0908 Author: See Dangelo MD Service: Cardiology Author Type: Physician Filed: 03/12/16 1022 Date of Service: 03/12/16 0908 Status: Addendum Whitesmith: See Dangelo MD (Physician) Related Notes: Original Note by See Dangelo MD (Physician) filed at 03/12/16 1016 [facility] Service: Cardiology Progress Note Hospital Day: LOS: 9 days Post-Op Day: * No surgery found * SUBJECTIVE Patient Summary: 70M followed by Aki Germain D.O., at our [place] office for sev ere aortic stenosis, and Sweta Ly MD for stage IV chronic kidney disease. Because of wo rsening renal function, he had a right brachiocephalic AV fistula created by Dr. Dias on 03/01. After being discharged following that procedure, he was home for a short time, and note d that he had decreased appetite, and felt "bloated". 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 There is no orthopnea or PND. There was no chest pain, pressure or discomfort, no palpitations. He came to the em ergency room. Supplemental oxygen helped the dyspnea. He was given IV Lasix, but urinated on ly a scant amount. His chest x-ray showed evidence of bilateral pulmonary edema. His tropon in was elevated at 1.8, consistent with an acute NSTEMI. His EKG showed only mild anterolate ral ST abnormalities, and frequent unifocal PVCs, which were not present on an EKG 2 days PT A. He has been hemodynamically stable. Cardiac catheterization revealed only moderate ao rtic stenosis by cath criteria, The measured at a falsely low value due to the markedly incr eased cardiac output used in the calculation, and the cardiac output is elevated due to the AV fistula. His repeat echocardiogram is still consistent with severe aortic stenosis, as me asured by the VTI, which is an measurement that is independent of the cardiac output. He als o has moderately severe 3-vessel CAD. He was seen by Jesús Pantoja MD, for consideration o f AVR and coronary bypass, but his STS score was high (10% mortality). He is now on HD. He h ad paroxysmal AFib with his intial HD, spontaneously converted to NSR, and this has not rec urred. He underwent PCI in the LAD and diagonal branch 03/10/16 (proximal first diagonal using 2.25 X15 mm Xience Alpine MESSI, mid LAD using 3.25X38 mm Xience Alpine MESSI, postdilated using 3.25 noncompliant balloons, and kissing balloons of LAD and diagonal bifurcation). The RCA lesio n needs to be addressed before he is discharged. Events Overnight: No complaints. He denies chest pain, SOB. Past Medical History Diagnosis Date Hypertension Hyperlipidemia Diabetes mellitus, type 2 ([facility]) 2005 Insulin-requiring, with diabetic Nephropathy, Retinopathy Sleep apnea dx light apnea Chronic kidney disease Stage IV-V Anemia of chronic renal failure 01/24/2012 Acute upper GI bleed 01/18/2014 PUD on EGD, ulcer cauterized Stroke ([facility]) 2010 right surface stroke, residual left hand numbness/tingling Acute diastolic congestive heart failure ([facility]) 03/03/2016 Aortic valve stenosis, severe Vitamin D deficiency Skin cancer NSTEMI (non-ST elevated myocardial infarction) ([facility]) 03/03/2016 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 ([facility]) moderate 3-vessel CAD Paroxysmal atrial fibrillation ([facility]) 03/04/2016 HFrEF (heart failure with reduced ejection fraction) ([facility]) 03/09/2016 ADHF (acute decompensated heart failure) ([facility]) 03/09/2016 Coronary artery disease involving [place] coronary artery of [place] heart S/P PTCA (percutaneous transluminal coronary angioplasty) 03/10/2016 D1 - 2.25X15 mm Xience Alpine MESSI; mid LAD - 3.25X38 mm Xience Alpine MESSI Past Surgical History Procedure Laterality Date Colonoscopy Cataract extraction Bilateral 2004? Esophagogastroduodenoscopy N/A 01/18/2014 Procedure: ESOPHAGOGASTRODUODENOSCOPY; Surgeon: Caitlyn Khan MD; Location: [facility]; Service: Gastroenterology; Laterality: N/A; Av fistula placement Right 03/01/2016 Procedure: AV FISTULA; Surgeon: Vivek Dias MD; Location: [facility]; Service: Vascul ar; Laterality: Right; brachiocephalic fistula creation Skin cancer excision mid forehead Coronary angioplasty with stent placement 03/10/2016 D1 - 2.25X15 mm Xience Alpine MESSI; mid LAD - 3.25X38 mm Xience Alpine MESSI Allergies Allergen Reactions Penicillins Rash Reacted with a rash as a child. Has not had penicillins since. Gemfibrozil Nausea and Vomiting Questran [Cholestyramine] Nausea and Vomiting Scheduled Medications aspirin 81 mg Oral Daily with breakfast atorvastatin 80 mg Oral Nightly carvedilol 6.25 mg Oral BID WC cholecalciferol 1,000 Units Oral QPM heparin (porcine) 1,000 Units Intracatheter Once per day on Fri heparin (porcine) 500 Units Intracatheter Once per day on Fri heparin (porcine) Intracatheter Daily hydrALAZINE 10 mg Oral TID insulin glargine 60 Units Subcutaneous QAM insulin lispro (human) 0-3 Units Subcutaneous Nightly insulin lispro (human) 0-6 Units Subcutaneous TID AC pantoprazole 40 mg Intravenous BID sevelamer 1,600 mg Oral TID WC sitagliptan 25 mg Oral Daily terazosin 10 mg Oral Nightly ticagrelor 90 mg Oral BID Continuous Infusions dextrose PRN Medications acetaminophen OR acetaminophen, bivalirudin, dextrose, dextrose, dextrose, fentaNYL, gl ucagon, glucagon, heparin (porcine), HYDROcodone-acetaminophen OR HYDROcodone-acetaminop hen, midazolam, nitroGLYCERIN, ondansetron OR ondansetron, phenylephrine, polyethylene g lycol, zolpidem OBJECTIVE Vital Signs: BP 103/55 mmHg | Pulse 81 | Temp(Src) 97.8 F (36.6 C) (Oral) | Resp 18 | Ht 1.753 m (5' 9") | Wt 98.4 kg (216 lb 14.9 oz) | BMI 32.02 kg/m2 | SpO2 99% Temp: [97.8 F (36.6 C)-99.3 F (37.4 C)] 97.8 F (36.6 C) (03/12 728) BP: (103-134)/(55-79) 103/55 mmHg (03/12 728) Heart Rate: [75-82] 81 (03/12 728) Resp: [18-24] 18 (03/12 728) SpO2: [98 %-99 %] 99 % (03/12 728) FiO2 : [30 %] 30 % (03/12 353) TELEMETRY: NSR I/O: 1900 / 4900, net -4362 since admission GENERAL: Morbidly obese, well developed, well nourished elderly male, in no dis tress. Appears older than his stated age. On BiPAP. HEENT: Normocephalic, atraumatic. EYES: Well healed iridectomies. PERRL, sclerae anicteric, no xanthelsasmas MOUTH: Oral mucosae moist, dentition adequate, no lesions noted NECK:Tunneled RIJV HD catheter. No JVD, lymphadenopathy, thyromegaly, bruits. Lisa tid pulses are 1+ bilaterally and delayed LUNGS: Mildly, diffusely decreased breath sounds, with no wheezing, rales, or rhonchi, re spirations unlabored HEART: Nondisplaced PMI, regular rate and rhythm, S1 normal, S2 diminished but faintly au dible. 2-3/6 late peaking systolic crescendo decrescendo murmur at the base, radiating to the left sternal border. No rubs or gallops noted. ABDOMEN: Obese. Soft, nontender, no organomegaly, masses or bruits. Bowel sounds are no rmal in all 4 quadrants. The abdominal aortic pulsation is not palpable. EXTREMITIES: 1+ ankle edema bilaterally. Radial pulses 2+ on the left, nonpalpable on the right, where a brachiocephalic AV fistula surgical site is bandaged, but has a palpable thr ill. DP and PT pulses are 1+ bilaterally. SKIN: Warm and dry, capillary refill is normal, no lesions. Tinea uguis of the toenails. NEUROLOGIC: Awake, alert and oriented x 3. No focal motor deficits. PSYCHIATRIC: Appropriate, affect appears normal DATA ECHO (03/05/16): 1. This was a technically difficult study with suboptimal views. 2. Overall left ventricular systolic function is moderate-severely impaired with, an EF bet ween 30 - 35 %. 3. The right ventricle is mildly enlarged, but right ventricular systolic function is meseret l. 4. The left atrium is markedly dilated. 5. There is severe aortic stenosis present. 6. There is moderate pulmonary hypertension. The right ventricular systolic pressure (pul monary artery systolic pressure), as measured by Doppler, is 55 mm Hg. CBC: Lab Results Component Value Date WBC 8.56 03/11/2016 RBC 2.75* 03/11/2016 HGB 7.8* 03/11/2016 HGB 9.9* 08/28/2015 HCT 23.7* 03/11/2016 MCV 86.1 03/11/2016 MCH 28.2 03/11/2016 MCHC 32.8 03/11/2016 RDW 43.3 03/11/2016 PLT 175 03/11/2016 MPV 10.3 03/11/2016 DIFFTYPE MANUAL 03/11/2016 CMP: Lab Results Component Value Date NA 141 03/11/2016 K 4.2 03/11/2016 CL 105 03/11/2016 CO2 26 03/11/2016 ANIONGAP 14 03/11/2016 GLUF 69 03/11/2016 BUN 32* 03/11/2016 CREATININE 4.8* 03/11/2016 CREATININE 5.79* 11/22/2015 BCR 7 03/11/2016 CA 8.2* 03/11/2016 CA 9.7 09/11/2015 PROT 6.0* 03/09/2016 ALB 2.5* 03/09/2016 GLOB 3.5 03/09/2016 BILITOT 0.3 03/09/2016 ALP 42 03/09/2016 AST 15 03/09/2016 ALT 14 03/09/2016 EGFR 13* 03/11/2016 LIPID PANEL: TC-113, LDL-42, HDL-41, TG-149 PROBLEM LIST Principal Problem: NSTEMI (non-ST elevated myocardial infarction) ([facility]) Active Problems: Type 2 diabetes mellitus with diabetic nephropathy ([facility]) Obesity Anemia of chronic renal failure, stage 5 ([facility]) Moderate aortic stenosis Aortic stenosis Acute diastolic congestive heart failure ([facility]) ESRD (end stage renal disease) ([facility]) Difficulty in walking Debility, unspecified 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 ([facility]) Paroxysmal atrial fibrillation ([facility]) HFrEF (heart failure with reduced ejection fraction) ([facility]) ADHF (acute decompensated heart failure) ([facility]) Coronary artery disease involving [place] coronary artery of [place] heart S/P PTCA (percutaneous transluminal coronary angioplasty) ASSESSMENT & PLAN 1. Acute NSTEMI, [place] class II, hemodynamically stable, with 3-vessel CAD, now s/p PCI/DE S in the 1st diagonal branch and mid LAD. The RCA lesion appears to be significant as well, and and he will undergo repeat PCI in this vessel tomorrow with Dr. Sweet. He has been sta rted on aspirin, Brilinta, Coreg and losartan. CABG/AVR surgery was felt to be of prohibiti vely high risk. 2. Severe by echocardiography last month, confirmed on a repeat study, with ZEKE 0.97 cm sq, peak transvalvular velocity measured at 4.1 m/s, an indicator of severe . The was calculated as only moderate by cardiac catheterization criteria, but this is because cardiac output was calculated so high (9.3 L/min., likely due to the arteriovenous fistula). In th is case, echocardiographic (VTI) assessment is a more accurate measurement (peak/mean gradie nts 57/39 mm Hg by echo, 40/32 mm Hg on cath). He will be referred for evaluation for TAVR following this hospitalization. 3. Dilated Cardiomyopathy, EF 30-35% on echo, likely mixed ischemic and non-ischemic etiolo gy 4. Stage V chronic kidney disease, right upper extremity brachiocephalic AV fistula created 03/01/16, but it will be sometime before this can be used. He had a tunneled RIJV dialysis a ccess placed, and hemodialysis has been started on this admission. 5. 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 Essential hypertension, controlled 8. Moderate Pulmonary HTN, likely secondary to # 2, 3, 8 7. History of a right CVA, with minimal residual left arm numbness and tingling, but no oth er residual deficits. 8. Mild obstructive sleep apnea, untreated 9. Severe anemia due to chronic kidney disease, no significant change despite large volume removal in HD yesterday. Consider PRBC transfusion if it drops any lower. Erythropoeitin c ould be considered as well. 10. Paroxysmal Atrial Fibrillation with his initial HD session, maintaining NSR since then. 11. Hyperlipidemia, with metabolic syndrome, well controlled Disposition: Continue hemodialysis (Dr. Christianson supervising) and current medications. Jesus Sweet M.D., will perform PCI of the RCA tomorrow. Diagnostic Cardiac Catheterizatio n via femoral or radial artery approach: the procedure, with its associated alternatives, b enefits, and risks, the latter including but not limited to possible need for more than one vascular access site, , [place], CVA, bleeding (including the need for blood transfusion), v ascular damage (including the need for emergent surgical repair, including PCI/stent placeme nt or CABG), renal failure (including the possible need for short or long-term use of hemodi alysis), allergic reactions/anaphylaxis, and the risks of moderate anesthesia/sedation, were discussed in detail. No guarantees were given. All questions were answered. The patient verbalized understanding and gave informed consent for the procedure. Following this, he can be referred electively to a tertiary center for TAVR. Code Status: Full Code See Dangelo MD 03/12/2016 awlick, Brianna Bobo MD - 03/12/2016 8:51 AM PDT Progress Notes by Brianna Hernandez MD at 03/12/16 0851 Author: Brianna Hernandez MD Service: Hospitalist Author Type: Physician Filed: 03/13/16 1430 Date of Service: 03/12/1651 Status: Signed Whitesmith: Brianna Hernandez MD (Physician) Related Notes: Original Note by Brianna Hernandez MD (Physician) filed at 03/13/16 0834 [facility] Service: Hospitalist Progress Note Pt: Brianna Vital AGE/SEX: 70 y.o. male : 1945 ROOM: 4465/4465-1 " Patient Summary: 70-year-old male with a history of stage V chronic kidney disease (fistula formation [address]as), presented with respiratory distress, non-STEMI, and and acute on chronic suzanne l failure. Initially treated with IV Lasix with minimal improvement, patient developed worse ankur pulmonary edema, patient required emergent hemodialysis, with a right IJ hemodialysis c atheter placed on the and underwent first hemodialysis on the . Dr. Dangelo performed heart catheterization. Found to have moderate three-vessel disease and s evere aortic stenosis. Evaluated by Dr. Pantoja, deemed high risk, as a result Dr. Sweet to perform staged PCI. Patient underwent heart catheterization yesterday, stent placed to prox imal first diagonal and mid LAD. Patient is scheduled for a tentative PCI to RCA on . Patient will then be referred for elective TAVR - Patient with recurrent episodes of dyspnea, on and off BiPAP. Yesterday after a procedure dyspnea, BiPAP resumed at 30 percent FiO2, presently undergoing hemodialysis and feeling im proved. Presently denies any chest pain, breathing improved, no nausea no emesis. "......per progr ess note by Dr. Chanel on 03/11/16 TODAY'S DATE: 03/12/2016 Hospital Day: LOS: 9 days SUBJECTIVE: No chest pain or shortness of breath. Feels to be well. Sitting in a chair eating dinner. D id not require BiPAP since this morning. Plan for additional PCI with stent placement potent ially tomorrow. Case discussed with Dr. Christianson. Review of Systems: Review of Systems Constitutional: Negative for fever, chills and malaise/fatigue. HENT: Negative for hearing loss and tinnitus. Eyes: Negative for blurred vision, double vision and redness. Respiratory: Negative for cough, hemoptysis and sputum production. Cardiovascular: Negative for chest pain, palpitations and PND. Gastrointestinal: Negative for heartburn, nausea, vomiting, blood in stool and melena. Genitourinary: Negative for dysuria, urgency and flank pain. Musculoskeletal: Negative for myalgias and neck pain. Skin: Negative for itching. Neurological: Negative for dizziness, tingling, tremors, focal weakness, seizures, loss of consciousness, weakness and headaches. Endo/Heme/Allergies: Negative for polydipsia. Psychiatric/Behavioral: Negative for depression, suicidal ideas and substance abuse. Scheduled Medications aspirin 81 mg Oral Daily with breakfast atorvastatin 80 mg Oral Nightly carvedilol 6.25 mg Oral BID WC cholecalciferol 1,000 Units Oral QPM heparin (porcine) 1,000 Units Intracatheter Once per day on Fri heparin (porcine) 500 Units Intracatheter Once per day on Fri heparin (porcine) Intracatheter Daily hydrALAZINE 10 mg Oral TID insulin glargine 60 Units Subcutaneous QAM insulin lispro (human) 0-3 Units Subcutaneous Nightly insulin lispro (human) 0-6 Units Subcutaneous TID AC pantoprazole 40 mg Intravenous BID sevelamer 1,600 mg Oral TID WC sitagliptan 25 mg Oral Daily terazosin 10 mg Oral Nightly ticagrelor 90 mg Oral BID Continuous Infusions dextrose PRN Medications acetaminophen OR acetaminophen, dextrose, dextrose, dextrose, fentaNYL, glucagon, gluca jair, heparin (porcine), HYDROcodone-acetaminophen OR HYDROcodone-acetaminophen, midazola m, nitroGLYCERIN, ondansetron OR ondansetron, phenylephrine, polyethylene glycol, zolpid em Allergy: Allergies Allergen Reactions Penicillins Rash Reacted with a rash as a child. Has not had penicillins since. Gemfibrozil Nausea and Vomiting Questran [Cholestyramine] Nausea and Vomiting OBJECTIVE Vitals: Patient Vitals for the past 24 hrs: BP Temp Temp src Pulse Resp SpO2 03/12/16 1538 104/55 mmHg 98 F (36.7 C) Oral 67 20 100 % 03/12/16 1120 113/61 mmHg 98.1 F (36.7 C) Oral 78 22 98 % 03/12/16 0728 103/55 mmHg 97.8 F (36.6 C) Oral 81 18 99 % 03/12/16 0335 134/62 mmHg 99 F (37.2 C) Oral 81 20 98 % 03/11/16 2342 119/67 mmHg 99.3 F (37.4 C) Oral 82 22 98 % 03/11/16 1941 114/62 mmHg 98.7 F (37.1 C) Oral 82 22 98 % I&O Detailed Table: Intake/Output Summary (Last 24 hours) at 03/12/16 1901 Last data filed at 03/12/16 1743 Gross per 24 hour Intake 960 ml Output 175 ml Net 785 ml Patient Vitals for the past 96 hrs: Weight 03/09/16 1607 98.4 kg (216 lb 14.9 oz) 03/09/16 1237 101.3 kg (223 lb 5.2 oz) Hemodynamics Last 24hrs: Examination: Physical Exam Constitutional: He is oriented to person, place, and time. He appears well-developed. HENT: Nose: Nose normal. Mouth/Throat: No oropharyngeal exudate. Eyes: Pupils are equal, round, and reactive to light. No scleral icterus. Neck: Normal range of motion. No JVD present. Cardiovascular: Normal rate. No murmur heard. Pulmonary/Chest: Effort normal and breath sounds normal. No respiratory distress. He has no wheezes. Abdomina/Gl: Soft. Bowel sounds are normal. He exhibits no distension. There is no tenderne ss. Musculoskeletal: He exhibits no edema or tenderness. Trace BL LE edema Neurological: He is alert and oriented to person, place, and time. No cranial nerve deficit . Coordination normal. Skin: Skin is warm and dry. No rash noted. There is pallor. R IJ CVD ; RUE AVF LABS: Recent Labs Lab 03/11/1642503/09/16114803/08/16 0707 WBC 8.56 8.29 8.80 HGB 7.8* 8.4* 8.0* HCT 23.7* 26.1* 24.7* PLT 175 168 150 NEUTOPHILPCT -- 78.99 77.47 MONOPCT -- 9.74 9.33 Recent Labs Lab 03/11/1642503/09/16114803/08/16 0707 NA 141 140 141 K 4.2 3.8 3.6 CL 105 104 105 CO2 26 26 25 BUN 32* 36* 43* CREATININE 4.8* 4.9* 5.8* PROT -- 6.0* 5.5* BILITOT -- 0.3 0.3 ALT -- 14 10 AST -- 15 15 Phosph Diagnostic: Ir Dialysis Tunneled Cath Insert 03/04/2016 DATE OF PROCEDURE: 03/04/2016 SURGEON: Efrain Navarro MD SALES PROMOTION MANAGER: None PREOPERA TIVE DIAGNOSIS: 1. End stage renal disease requiring hemodialysis POSTOPERATIVE DIAGNOSIS: Same PROCEDURES: 1.Percutaneous access of right internal jugular vein under ultrasound guid ance and placement of tunneled hemodialysis catheter ANESTHESIA: Local anesthesia and cons cious sedation (1mg Versed, 75mcg Fentanyl) RADIATION DOSE: 10mGy FLUOROSCOPY TIME: 0.5 mi nute SPECIMEN: None ESTIMATED BLOOD LOSS: Less Than 10 ml (Minimal) BLOOD ADMINISTERED: N one COMPLICATIONS: None CONDITION: Stable INDICATIONS: This is a 70 y.o. male patient wi th end stage renal disease requiring hemodialysis.The patient has been evaluated by his neph rologist who determined that he is a suitable candidate to undergo hemodialysis. The patient understands the benefit and purpose of the planned procedure of tunneled hemodialysis sonu ter insertion is to allow the patient to receive hemodialysis while waiting for a exterminator termite hemodialysis access such as arteriovenous venous fistula or graft to be created. The patient also understands the risks and complications of this procedure which include bleeding, vess el perforation, infection, deep vein thrombosis, catheter malfunction, nerve or arterial inj ury, and pneumothorax. The patient has accepted these benefits and risks and agreed to under go the planned procedure. PROCEDURE IN DETAIL: The patient was taken to the operating room and placed on the table in the supine position. The patient's right neck and chest region w as prepped sterilely and then draped in a standard fashion. The patient was given local and conscious sedation anesthesia. Appropriate time out was performed whereby the patient and si te of surgery were identified. Percutaneous access of the right internal jugular vein was ob tained under ultrasound guidance. A 0.035' guidewire was placed in the right internal jugul ar vein and confirmed under fluoroscopy guidance. The skin tract was dilated with serial dil ators. A peel away sheath was inserted over the guidewire. A hemodialysis catheter was tunne led under the skin from the chest to the neck. Next the guidewire and inner dilator of the p eel away sheath was removed. The tunneled hemodialysis catheter was placed into the internal jugular vein over a peel away sheath. The catheter tip was positioned in the superior vena cava and the position was confirmed with fluoroscopy. Heparinized saline solution was inject ed in the double lumen tunneled hemodialysis catheter and the catheter was securely anchored to the skin using 3-0 nylon sutures. Standard dressing was applied over the tunneled hemodi alysis catheter in the usual fashion. Hemostasis was achieved without complications. The pat ient tolerated the procedure well and suffered no complications. I was present throughout th e entire procedure. Xr Chest 1 View 03/04/2016 BRIANNA VITAL XR CHEST 1 VIEW 03/04/2016 6:31 PM History: 70 years. Male. Progressive dyspnea. New dialysis catheter placement. Renal failure. Congestive heart fa ilure. Technique: AP portable upright technique was performed at 1825 hours. Comparison: Findings: There is increasing opacification at the LEFT lung base, now completely o bscuring the LEFT hemidiaphragm. Perihilar moderately dense bilateral pulmonary infiltrates are again noted, mildly progressive, suggesting progressive pulmonary edema. The RIGHT smitha g base is clear. No visible RIGHT pleural effusion. Mild cardiomegaly is unchanged. The p ulmonary vasculature is obscured. A RIGHT internal jugular dialysis catheter is visualized with its tip at the junction of the superior vena cava and RIGHT atrium. 03/04/2016 1. Moderate, mildly progressive bilateral perihilar pulmonary edema. 2. Incr easing opacity of the LEFT lung base suggesting pneumonia and/or atelectasis and/or small pl eural effusion. 3. Persistent mild cardiomegaly. 4. New central venous dialysis catheter, without complication. Xr Chest 1 View 03/03/2016 This is a non-reportable procedure without a radiologist report and is used fo r image storage only Us Arm Right Mapping For Dialysis 02/29/2016 History: 70-year-old male, preoperative. Requires vein mapping Technique: Ult rasound of the bilateral lower extremity superficial systems. Prior study: None Findings: EVALUATION OF THE RIGHT: CEPHALIC VEIN proximal arm: 5.7 mm, 18 mm from the skin surface middle arm: 3.8 mm, 8.2 mm from the skin surface distal arm: 3.9 mm, 4.2 mm from the skin surface proximal forearm: 4.3 mm, 6.6 mm from the skin surface middle forearm: 3.1 mm, 4.5 mm from the skin surface distal forearm: 3.8 mm, 2.5 mm from the skin surface BRACHIAL VE IN proximal arm: 4.9 mm, 20 mm from the skin surface middle arm: 4 mm, 23 mm from the ski n surface distal arm: 4.3 mm, 10.7 mm from the skin surface BASILIC VEIN: middle arm: 6 mm, 16 mm from the skin surface distal arm: 2.8 mm, 3.9 mm from the skin surface proximal f orearm: 2.2 mm, 2.8 mm from the skin surface middle forearm: 2.2 mm, 2.3 mm from the skin surface distal forearm: 1.8 mm, 2.6 mm from the skin surface BRACHIAL ARTERY: 6.3 mm, 10.7 mm from the skin surface RADIAL ARTERY: 3.6 mm, 8.3 mm from the skin surface ULNAR ARTERY : 2.5 mm, 10.2 mm from the skin surface Atherosclerotic vascular disease: Not reported A s tenosis of the distal radial artery with a velocity elevation is noted, image 37. Atheroscl erotic calcifications are also. Thrombosis: None 02/29/2016 1. A brachiocephalic fistula may be the best choice, as the basilic vein has a low insertion point and there is a stenosis of the distal radial artery Left hand dominant patient Would correlate with individual surgical protocol for this individual patient Debbie ctronically signed by Aki Meyers MD on 02/29/2016 4:50 PM Cl Stent Drug Eluting Coronary 03/10/2016 DATE OF PROCEDURE March 03, 2016 PROCEDURES PERFORMED 1. Conscious sedation. 2. Right common femoral artery angiogram, followed by left common femoral artery angiogr am. 3. Aortoiliac artery angiogram. 4. Selective left and right common femoral artery angiog jared. 5. Selective left coronary artery angiogram. 6. Fractional flow reserve measurement of the mid left anterior descending artery with significant fractional flow reserve value o f 0.63. 7. Successful percutaneous transluminal coronary angiography and stenting of the proximal first diagonal branch of the left anterior descending artery using a 2.25 x 15-m m Xience Alpine drug-eluting stent in a T-bifurcation stenting technique with the left an terior descending. 8. Successful percutaneous transluminal coronary angiography and stenting of the mid to proximal left anterior descending artery using a 3.25 x 38-mm Xience Al pine drug-eluting stent postdilated using 3.25 and a 3.0 noncompliant balloons. 9. Succes sful kissing balloons of the bifurcation left anterior descending and first diagonal sten ts with 3.0 x 12-mm noncompliant balloon in the left anterior descending and a 2.0 x 8-mm noncompliant balloon in the diagonal stent. INDICATIONS [id number] myocardial inf arction. The patient turned down by surgery given high the high risk for surgery. HISTORY O F PRESENT ILLNESS The patient is a 70-year-old male with a history of hypertension, hyperlip idemia, diabetes mellitus type 2, and end stage renal disease who was recently started on he modialysis. He was admitted with non-ST elevation myocardial infarction. He was also found t o have severe aortic stenosis, moderately to severely reduced left ventricular ejection frac tion of 30% to 35%, and 3-vessel coronary artery disease. Cardiothoracic surgery was consult ed for consideration of bypass surgery and aortic valve replacement. The patient was found t o be at high risk for surgery. The patient's best option appeared to be percutaneous coronar y intervention and transcatheter aortic valve replacement. Please refer to Dr. Dangelo's full d iagnostic coronary artery angiogram report and consultation report. The patient was referred for percutaneous coronary intervention and FFR measurement of the mid left anterior descend ing artery. The procedure risks, benefits, and alternatives were discussed in detail with th e patient and he agreed to proceed. DESCRIPTION OF PROCEDURE The patient was brought to the cardiac catheterization laboratory in the fasting state. After informed consent was obtaine d, the patient was prepped and draped in the usual sterile fashion. Lidocaine 2% was used fo r local anesthesia of the right groin. The right femoral artery was accessed using a micropu ncture needle under fluoroscopic guidance. The femoral arteries were calcified with clear ou tline of the arteries. Subsequently, a 4-Filipino micropuncture sheath was put in place and an giogram of the right common femoral artery was done which showed mild disease of the right c ommon femoral artery. However, there were very tortuous iliac arteries. Subsequently, I trie d to advance a Versacore wire. Due to tortuosity in the iliac artery, it would not go throug h easily. I removed the Versacore wire and used a Wholey wire. Again, there was significant difficulty even with the Wholey wire. At this point, I decided to use a Glidewire, and the G lidewire was advanced. As the Glidewire was not advancing easily into the proximal common il iac artery, I used a 4-Filipino [place] catheter. The [place] catheter was advanced into the iliac artery. I wanted to evaluate the iliac artery at that point to rule out any dissection plan e as there was difficulty advancing the wire. Subsequently, we did an angiogram using the Gl marcelo catheter. The angiogram showed some decreased blood flow, and I suspected there might be a dissection. At this point, i decided to go from the left common femoral artery. The [place] catheter was removed over the wire, then a 4-Filipino 11-cm sheath was placed in the right co mmon femoral artery. Then, we checked pressures in the right common femoral artery using the sheath which showed good pressures. Subsequently, 2% lidocaine was used for anesthesia of t he left groin. The left femoral artery was accessed using a micropuncture needle under fluor oscopic guidance. Again, there was good visualization of the outline of the common femoral a rtery with calcification. Subsequently, using a 4-Filipino micropuncture sheath, we took angio gram of the left common femoral artery again showing mild calcification and mild disease in the left common femoral artery and tortuosity of the iliac arteries, although the tortuosity appeared to be less than the right iliac artery. Subsequently, the Versacore wire was advan ervin into the aorta without much difficulty. A 4-Filipino, 11-cm sheath was placed into the lef t femoral artery. I proceeded with evaluation of both iliac arteries, especially to rule out any dissection in the right iliac artery. Subsequently, a 4-Filipino Omni Flush catheter was advanced into the distal abdominal aorta and angiogram of the distal abdominal aorta and bi lateral common and external iliac arteries were obtained which showed no evidence of dissect ion or perforation in the right iliac artery or left iliac artery and showed severe tortuosi ty of the right iliac artery more than the left iliac artery. At this point, we then proceed ed with our plan of FFR of the left anterior descending artery and, if significant, to proce ed with intervention. Subsequently, given the tortuosity, I used a long sheath and, given th e anticipated bifurcation lesion in the LAD and diagonal, I choose a 7 Filipino. Subsequently, a 7-Filipino, 35-cm sheath was advanced from the left common femoral artery into the abdomina l aorta without much difficulty. The patient was given 5000 units of heparin. A guiding 7-Fr ench XB LAD 3.5 guiding catheter was advanced and used for selective engagement of the left coronary system. A blood sample was drawn for ACT. Subsequently, left coronary angiogram was done in cranial view. ACT came back 102. Subsequently, we gave another 5000 units of hepari n intravenously. This was a total of 10,000. Subsequently, an FFR wire was advanced and norm alized in the left main and advanced to the distal left anterior descending artery after the long diseased segment in the mid LAD that actually started proximal to the first diagonal b ranch. The FFR immediately went down to 0.63 even without giving intravenous adenosine, whic h indicates a hemodynamically significant lesion. Angiogram was repeated. At that time, we s ent a blood sample for another ACT. The FFR wire was advanced into the distal left anterior descending artery. Given the severe disease of the first diagonal branch, which appeared to be coming at a 90-degee angle from the left anterior descending artery, I felt the best opti on was to proceed with angioplasty, followed by stenting of the diagonal branch with T-stent ing technique. The diagonal branch was a 2.0 to 2.5-mm vessel. The LAD appeared to be a 3.25 -mm vessel. Subsequently, a BMW wire was advanced into the diagonal branch. A 2.0 x 8-mm com pliant Emerge balloon was advanced and inflated in the proximal diagonal at 6 atmospheres fo r 19 seconds. The balloon was removed. To my surprise, ACT came back again at 104 despite th e patient being given now a total of 10,000 units of heparin. At this point, we evaluated e venous access site, and it appeared that medications and fluids had been running appropria tely. As the ACT did not change at all with 10,000 units of heparin, I felt that it would be best to have a central line just in case these medications and anticoagulants were not bein g delivered through the peripheral line. Subsequently, 2% lidocaine was used for anesthesia of the right groin. The right femoral vein was accessed using a micropuncture needle. A 4-Fr ench sheath was placed into the right femoral vein without difficulty. Subsequently, extensi on tubing was attached to the 4-Filipino venous sheath. We gave 5000 units of heparin through the central line. Also, the patient was given a double bolus of Integrilin, followed by an I ntegrilin drip. At this point, we also changed delivery of the Integrilin drip through the c entral venous line. At this point, we waited for ACT before proceeding with stenting or furt her intervention. We waited 5 minutes after the third 5000 units of heparin. The ACT was daniel cked and it was still low, so we gave another 5000 units of heparin which now came to a tota l of 20,000 units of heparin. ACT was checked using 2 different ACT machines and, again, the ACT, although improved, was still not therapeutic. It went up to 178. At this point, I felt there might be resistance to heparin with difficult anticoagulation in this patient. I deci ded to go with Angiomax. Subsequently, we gave the patient an Angiomax bolus, followed by a drip renally adjusted dose. We waited 5 minutes after the bolus and checked the ACT which we nt up to 362. At this point, we decided to proceed with intervention. Subsequently, a 2.25 x 15-mm Xience Alpine drug-eluting stent was advanced and deployed in the proximal diagonal, covering the lesion with the proximal end of the stent at the ostium of the diagonal branch ; however, not protruding into the LAD. The stent was deployed at 10 atmospheres for 17 seco nds. At this point, angiogram showed probably a plaque rupture at the proximal LAD just befo re the takeoff of the first diagonal probably initiated by advancing the stent. The was redu ction of flow in the left anterior descending artery. The patient's blood pressure started t o drop. At this point, I went quickly with intervention on the left anterior descending ana ry. A 3.0 x 30-mm compliant Emerge balloon was advanced and inflated in the mid left anterio r descending artery and the proximal left anterior descending artery just proximal to the ta keoff of the diagonal where there appeared to be a plaque rupture. The balloon was inflated at nominal atmospheres. The balloon was then advanced forward to cover the whole lesion and inflated again at 10 atmospheres for 23 seconds and 10 atmospheres for 12 seconds. Subsequen tly, a 3.25 x 38-mm Xience Alpine drug-eluting stent was advanced and, with some minor diffi culty, I was able to advance the stent to cover the lesion distally and proximally. The sten t was extending to the proximal LAD covering the lesion just before the takeoff of the first diagonal branch. The stent was deployed at 12 atmospheres for 20 seconds. There was difficu lty pulling the stent balloon. With care, trying not to have the guide deeply engaged, we tr ied to pull the balloon. However, it was not going. I inflated the balloon at 4 atmospheres and then deflated, and with that we were able to pull the stent balloon. The patient's blood pressure was still dropping to the 80s and 90s. The patient was given 100 mcg of phenylephr ine. Subsequently, repeat angiogram showed rastafari of flow in the left anterior descendi ng artery. However, the diagonal branch became occluded with an occluded stent likely due to plaque shift. The stent did not appear to be really extending into the left anterior descen ding artery. Subsequently, I tried to quickly advance a BMW wire to cross into the diagonal branch. However, there was difficulty crossing into the diagonal stent. As there was a signi ficant twist in the mid LAD stent, we decided to go with postdilation of the LAD to optimize the stent expansion first and to try to open the diagonal later. Subsequently, a 3.25 x 20- mm noncompliant Quantum balloon was advanced and we started inflation just distally at 20 at mospheres for 13 seconds with pulling backward and in overlapping fashion to the proximal pa rt of the stent at 20 atmospheres for 12 seconds and 20 atmospheres for 19 seconds. There is a part in the mid part of the stent that still had a waist despite going to high pressures of 20. The balloon was then pulled, and there was difficulty pulling the balloon. The balloo n was inflated at 4 atmospheres for 5 seconds, and then we were able to pull the balloon colby kward a little. Again, there was difficulty pulling the balloon. The balloon was advanced ag ain forward with the balloon completely inside the stent and inflated at 12 atmospheres for 15 seconds. Eventually, we were able to pull the balloon out with care not to cause dissecti on in the left main as the guide tended to go deep. Repeat angiogram showed there was still a focal waist in the mid LAD after the first diagonal, and the first diagonal remained occlu ded. I went again with a shorter balloon at 3.25 x 12-mm noncompliant Quantum balloon, advan ervin at the area of the waist, and inflated at 20 atmospheres for 15 seconds, 20 atmospheres for 11 seconds, 20 atmospheres for 37 seconds, and 20 atmospheres for 28 seconds. Repeat ang iogram again showed there was still some focal waist in the mid LAD within the stent. At thi s point, we went with a shorter balloon, a 32.5 x 8-mm noncompliant Quantum balloon, and adv anced and inflated at the area of the waist at 20 atmospheres for 24 seconds, 20 atmospheres for 50 seconds, and 22 atmospheres for 25 seconds. With that, there was improvement in the waist. However, there was still some mild waist. We tried to pull the balloon. Again, there was difficulty pulling the balloon. We did double-negative pressure in the balloon, and then the balloon was inflated at 12 atmospheres for 12 seconds in the area of the waist. We were then able to pull the balloon. At this point, I proceed with a trial to open the first chip gonal stent. I tried the BMW wire. However, it could not go through. Subsequently, a Whisper wire was advanced and initially advanced into the mid left anterior descending stent and th en pulled back to assure placement within the LAD stent. With some difficulty, I was able to cross into the diagonal branch. Subsequently, a 2.0 x 8-mm noncompliant balloon was advance d and, without much difficulty, crossed over into the diagonal branch. The balloon was infla doyle at the ostium of the first diagonal branch partly in the diagonal stent and partly in th e LAD stent at 12 atmospheres for 30 seconds. It was then advanced into the proximal diagona l branch within the stent for postdilation of the stent and inflated at 12 atmospheres for 2 0 seconds. Subsequently, the balloon was left in the ostium of the diagonal branch, partly i n the diagonal branch and partly in the LAD stent. Another balloon, a 3.0 x 12-mm noncomplia nt Quantum balloon, was advanced over the wave wire in the LAD. Both balloons were placed i n a kissing fashion with the proximal ends of the stents in the proximal part of the LAD johnna nt, however, completely within the stent. Both kissing ballooning with both balloons were in flated at 12 atmospheres for 17 seconds. Then, both balloons were deflated. Subsequently, I advanced the LAD balloon, 3.0 x 12-mm noncompliant Quantum balloon, more distally at the are a of the waist distal to the origin of the first diagonal branch and inflated at 14 atmosphe res for 12 seconds, 22 atmospheres for 24 seconds, and with that the waist had resolved and the stent there appeared to have expanded well. Subsequently, we did another final kissing b allooning with a 2.0 x 8-mm noncompliant balloon in the diagonal and a 3.0 x 12-mm noncompli ant balloon in the LAD stent. Both balloons were inflated at 12 atmospheres for 15 seconds. Both balloons were deflated. Both balloons were removed, and post-intervention angiogram the n was obtained which showed excellent results with reduction of the degree of stenosis from 75% in the LAD down to 0% and from 80% in the diagonal branch down to 0% with NISSA 3 flow. B oth stents appeared to be well expanded. No evidence of dissection or perforation. Final ang iogram in a caudal view was obtained which, again, showed excellent results with no evidence of dissection or perforation, especially with special attention to the left main which show ed no evidence of dissection. All catheters and guidewires were removed. The right femoral arterial sheath and right femoral venous sheath both were 4-Filipino, and they were secured in place with sutures. The left femoral 7-Filipino sheath was secured with sutures to be removed on the floor based on ACT. The patient had received multiple doses of Humberto-Synephrine during the intervention as blood pressure had dropped. However, at the end of the procedure blood pressure was stable at 92 systolic. Final ACT at the end of the procedure showed an ACT of 2 82. The patient was continued on Integrilin, and the Angiomax was stopped at the end of the procedure. The patient was also given a loading dose of ticagrelor 130 mg. The patient tole rated the procedure well without complications. TOTAL CONTRAST 278 mL of Isovue. Due to the complex procedure and the initial problems with access and suspicion for right iliac artery dissection with need for angiogram of the iliac arteries, in addition to the complex bifurc ation lesion in the LAD we used 48 minutes of fluoroscopy time. ESTIMATED BLOOD LOSS Less t redman 50 mL. Overall, the patient tolerated the procedure well without complications. RESULT S Aortoiliac artery angiogram and common femoral artery angiograms. 1. The right and left co mmon external iliac arteries were patent without obstructive disease. There were large ve ssels with severe tortuosity in the right more than the left, especially of the external iliac arteries. The internal iliac arteries were patent and appeared to have moderate disease distally bilaterally. 2. Mild disease of the right and left common femoral arteries with mild calcification. However, no obstructive disease. Left coronary artery angiogram . 1. The left main coronary artery trifurcates and gives rise to the left anterior descen ding, ramus intermedius, and left circumflex arteries. The left anterior descending arter y is a short vessel without disease. 2. The left anterior descending artery is a large type 3 vessel that has diffuse calcification. There is a long, calcified, tubular lesion st arting at the proximal left anterior descending artery just before the takeoff of the fir st diagonal branch and extending to the mid portion. Angiographically, it appears to be i n the range of 75%. FFR measurement across this lesion is 0.63 indicating hemodynamically significant lesion. The first diagonal branch, which is a 2.0 to 2.5-mm vessel with s evere disease proximally in the range of 80% to 90%. 3. The ramus intermedius is a small ves fidencio without obstructive disease. 4. The left circumflex artery is a nondominant vessel that gives rise to a small, tiny first marginal branch, followed by a larger second marginal branch which appeared to be the main marginal branch. The mid left circumflex artery be fore the second marginal branch had moderate disease in the range of 80%. IMPRESSION 1. Severe mid left anterior descending artery and proximal first diagonal branch disease and moderate disease of the mid left circumflex artery. 2. Successful percutaneous transluminal coronary angiography and stenting of the first diagonal branch of the left anterior desc ending artery using a 2.25 x 15-mm Xience Alpine drug-eluting stent in a T-stenting fa shion with the left anterior descending stent. 3. Successful percutaneous transluminal coron carol angiography and stenting of the mid left anterior descending extending to the proxima l left anterior descending using a 3.25 x 38-mm Xience Alpine drug eluting stent postd ilated using a 3.25 and 3.0 noncompliant Quantum balloons. 4. Successful kissing balloons of the diagonal and left anterior descending stents using a 3.0 x 12-mm noncompliant balloo n in the left anterior descending stent and a 2.0 x 8-mm noncompliant balloon in the diag onal stent. PLAN 1. The patient will need to be on aspirin 81 mg for life. 2. The patien t will need to be on Brilinta 90 mg twice a day for at least 1 year. The patient received a loading dose in the catheterization lab at the end of the procedure. 3. We will contin ue Integrilin at renally adjusted dose for 12 hours. 4. Continue carvedilol and atorvastatin . 5. The patient will need staged assessment and PCI of the right coronary artery. 6. Aft er revascularization of the right coronary artery, the patient will be referred for TAVR evaluation as an outpatient. Read by LEYLA SWEET MD 03/10/2016 03:54 P Cl Right And Left Heart Catheterization With Coronary Angio 03/04/2016 REFERRING PHYSICIANS Bret Oro MD INDICATIONS Acute non-STEMI, severe aorti c stenosis by recent echocardiography, stage 5 chronic kidney disease, being initiated on he modialysis within the next day or two. PROCEDURES 1. Right heart catheterization. 2. Left h eart catheterization. 3. Selective bilateral coronary angiographies. 4. Placement of a 6-[place]indo [facility] Mynx device for hemostasis. DESCRIPTION OF PROCEDURE After informed consent was obtaine d, he was brought to the cardiac catheterization laboratory and prepped and draped in a ster ile fashion. He was given Versed 2 mg IV and fentanyl 50 mcg IV for moderate anesthesia/mckenna tion. The right femoral area was infiltrated with 20 mL of 2% Xylocaine for local anesthesia . Using modified Seldinger technique, an 8-Filipino introducer sheath was inserted into the r ight common femoral vein with a clean anterior entry. Via similar technique, a 6-Filipino intr oducer sheath was inserted into the right common femoral artery on the second attempt, as th e first attempt was unsuccessful due to probable entry into a side branch and the guidewire could not be advanced. Hemostasis was achieved with manual pressure between the 2 femoral ar eileen cannulation attempts. A 7.5-Filipino [place]ile catheter was then advanced through the katt ous sheath and under fluoroscopy, was advanced through the right heart chambers, with typica l waveforms seen and pressures measured. Cardiac output was determined by thermodilution dora hnique, as the patient required supplemental oxygen to breathe comfortably while lying flat, and Gera technique could not be performed accurately. The [place]-Nile catheter was then remov ed. With the use of a 0.035-inch J-tipped guidewire for catheter advancement under direct f luoroscopic visualization, first a 5-Filipino FL4, then a 6-Filipino FL35 catheter was advanced to the aortic root, and both were able engage the left main coronary artery successfully, bu t the left coronary system was underfilled. Via guidewire exchange, a 6-Filipino AL1 catheter was used to perform selective angiography of the [place] left coronary system in multiple vie ws in a standard fashion with better results, although the vessels were still slightly under filled. The same AL1 catheter was then used to perform selective angiography of the [place] r ight coronary system in multiple views in a standard fashion. The catheter was then withdraw n slightly, and a 265 cm Wholey wire was advanced across the aortic valve into the left vent ricle. The AL1 catheter was removed over the guidewire, and a 6-Filipino angled pigtail cathet er was advanced into the left ventricle. Following pressure measurements, the catheter was p ulled back across the aortic valve, with pressures measured, and then removed. A nonselectiv e angiogram through the right common femoral arterial introducer sheath revealed entry above the bifurcation of this vessel, with no evidence of bleeding and no significant vascular di sease at this level. The introducer sheath was therefore removed, and hemostasis was achieve d with application of a 6-Filipino Mynx closure device. The venous sheath was removed, and hem ostasis was achieved with manual pressure. There were no complications, and the patient tole rated the procedure well. ESTIMATED BLOOD LOSS 50 mL. CONTRAST 105 mL of Isovue. RESULTS HEMODYNAMICS 1. Right atrial pressure: Mean 8, A wave 12, V wave 10. 2. Right ventricular pr essure: 47/13. 3. Pulmonary artery pressure: 36/19, mean pressure 27 mmHg. 4. Pulmonary capi llary wedge pressure: Mean 23 mmHg, A wave 24, V wave 34. 5. Left ventricular systolic pres sure: 145/37. 6. On pullback, central aortic pressure: 105/59, mean 78 mmHg. 7. The body eliu face area calculated to 2.225 m?. 8. By femoral dilution technique, cardiac output: 9.33 L/m in. 9. Cardiac index: 4.19 L/min/m?. 10. The aortic valve area is calculated at 1.5 cm?. wit h a 40 mm [id number] gradient and 32 mm mean gradient. 11. The aortic valve area index was calculated at 0.67 cm?/m?. However, on echocardiography, the aortic valve area was calculat ed at 0.9 cm?. CORONARY ARTERIES 1. Left main: This is a large vessel arising from the left coronary cusp. It is mildly calcified but otherwise normal and trifurcates at its distal en d. 2. Left anterior descending: This is a large, type 2 vessel which reaches the apex. The p roximal segment is free of disease. The midsegment contains a long 60% area of diffuse disea se between the first and second diagonal branches. The remainder of the LAD is free of disea se and appears suitable to receive a bypass conduit. The large first sept[facility] branc h has a 60% concentric ostial stenosis. The other septal [facility] branches are somewhat sm aller but normal. The large first diagonal branch contains an 80% proximal stenosis. The sec ond and third diagonal branches are quite small. 3. Ramus intermedius: This is a medium-size vessel, with a 50% concentric ostial stenosis. The remainder of the vessel is free of disea se. 4. Left circumflex: This is a medium-size, nondominant vessel supplying a single obtuse marginal branch. The midsegment, before the obtuse marginal branch, contains a concentric 40 % to 50% stenosis. 5. Right coronary artery: This is a large dominant vessel arising from th e right coronary cusp. The proximal segment is free of disease. The early midsegment contain s a 50% eccentric stenosis, followed by a 70% concentric stenosis just before the origin of the single large right ventricular branch. From this, there is an area of diffuse disease in the midsegment that is judged to be 50% in luminal diameter reduction. The distal RCA is fr ee of disease. It gives rise to a relatively small posterior descending artery, which is nor mal, and a relatively small posterolateral ventricular branch, which is normal. 6. Due to th e elevated left ventricular end-diastolic pressure, a left ventricular cineangiogram was not performed. CONCLUSIONS 1. Via catheterization, there is only moderate aortic stenosis. How ever, there was severe aortic stenosis on his recent echocardiogram, and this will be repeat ed. 2. Moderate 3-vessel coronary artery disease. 3. Mild pulmonary hypertension. 4. Mild pu lmonary artery stenosis. 5. Severe left ventricular diastolic dysfunction. RECOMMENDATIONS He is to be started on hemodialysis today or tomorrow. A repeat echocardiogram will be done. I have asked Jesús Pantoja MD, from cardiothoracic surgery to see him regarding possible aortic valve replacement and coronary artery bypass surgery. Read by SEE DANGELO MD 10:40 A Echo Cardiac Adult Complete 03/06/2016 Patient Name: BRIANNA VITAL Date of : 1945 23 Performing Physician: SEE DANGELO MD ------REPORT ADDENDED------ INDICATIONS CONCLUSIONS -------- --- 1. This was a technically difficult study with suboptimal views. 2. Overall left ventric ular systolic function is moderate-severely impaired with, an EF between 30 - 35 %. 3. The r ight ventricle is mildly enlarged, but right ventricular systolic function is normal. 4. The left atrium is markedly dilated. 5. There is severe aortic stenosis present. 6. There is mo derate pulmonary hypertension. The right ventricular systolic pressure (pulmonary artery sy stolic pressure), as measured by Doppler, is 55 mm Hg. FINDINGS -------- Study: This was a technically difficult study with suboptimal views. Left Ventricle: Overall left ventricular systolic function is moderate-severely impaired with, an EF between 30 - 35 %. Left Ventric le: The left ventricle cavity size is normal. Left Ventricle: Left ventricular wall thickne ss is normal. Left Ventricle: The following regional wall motion abnormalities include: Le ft Ventricle: basal anteroseptal - moderately hypokinetic; Left Ventricle: mid anterosepta l - severely hypokinetic; Left Ventricle: mid inferoseptal - moderately hypokinetic; Lef t Ventricle: mid inferior - mildly hypokinetic; Left Ventricle: basal inferolateral - dysk inetic; Left Ventricle: mid anterolateral - severely hypokinetic; Left Ventricle: apical septum - severely hypokinetic; Left Ventricle: inferior apex - mildly hypokinetic; Lef t Ventricle: apical lateral -severely hypokinetic; Left Ventricle: apex - severely hypokin etic; The mid anterior wall was not well visualized. Left Ventricle: The remaining left ve ntricular segments contract normally. Right Ventricle: The right ventricle is mildly enlarge d measuring between 3.4 - 3.7 cm. Right Ventricle: The right ventricular systolic function is normal. Left Atrium: The left atrium is markedly dilated. Right Atrium: The right atrium is normal in size. Aortic Valve: The aortic valve was not well visualized. Aortic Valve: T he aortic valve is severely calcified. Aortic Valve: There is severe aortic stenosis presen t. Aortic Valve: The aortic valve area by continuity equation is 0.96 cm, Aortic V alve: The maximum velocity across the aortic valve is 4.1 m/s Aortic Valve: The maximum p ressure gradient across the aortic valve is 57 mmHg . Aortic Valve: The mean gradient acros s the aortic valve is 39 mmHg. Mitral Valve: The mitral valve is normal. Mitral Valve: Mild mitral regurgitation is present. Tricuspid Valve: Mild tricuspid regurgitation present. Tr icuspid Valve: There is moderate pulmonary hypertension. Tricuspid Valve: The right ventric ular systolic pressure (pulmonary artery systolic pressure), as measured by Doppler, is 55 m m Hg. IVC/Hepatic Veins: The IVC is dilated (>2.5cm) and does not collapse with sniff, cons istent with central venous pressures of >20mmHg. MEASUREMENTS IVC: 2.68 cm LA Major: 5.41 cm LVOT Diam: 2.12 cm RA Major: 4.76 cm RVIDd: 3.70 cm LAESV(A-L): 48.76 ml LAAs A2C: 15.95 cm2 LAESV A-L A2C: 46.10 ml LAESV MOD A2C: 43.40 ml LALs A2C: 4.68 cm LAAs A4C: 16.87 cm2 LAESV A-L A4C: 49.93 ml LAESV MOD A4C: 47.22 ml LALs A4 C: 4.83 cm IVC diameter: 3.00 cm IVC collapse: 1.74 cm IVC % collapse: 38.92 % HR: 90.38 BPM AV maxP.53 mmHg AV meanP.77 mmHg AV Vmax: 4.12 m/s AV Vmean: 3. 01 m/s AV VTI: 82.82 cm ZEKE Vmax: 0.94 cm2 ZEKE (VTI): 0.96 cm2 LVCO Dopp: 7.18 l/min HR: 89.97 BPM LVOT maxP.91 mmHg LVOT meanP.03 mmHg LVSV Dopp: 79.80 ml LVOT Vmax: 1.10 m/s LVOT Vmean: 0.82 m/s LVOT VTI: 22.46 cm TR maxP.92 mmHg TR Vmax : 2.95 m/s TV A Doe: 0.59 m/s TV Dec Gibson: 5.92 m/s2 TV Dec Time: 104.14 ms TV E Ve l: 0.61 m/s TV E/A Ratio: 1.04 Border Machine Operator: DONY Authenticated by: See stuart Date/Time: -- [id number] 03/06/2016 1. This was a technically difficult study with suboptimal views. 2. Overall lef t ventricular systolic function is moderate-severely impaired with, an EF between 30 - 35 %. 3. The right ventricle is mildly enlarged, but right ventricular systolic function is meseret l. 4. The left atrium is markedly dilated. 5. There is severe aortic stenosis present. 6. Th ere is moderate pulmonary hypertension. The right ventricular systolic pressure (pulmonary artery systolic pressure), as measured by Doppler, is 55 mm Hg. [facility] 03/04/2016 This Point of Care (POC) ultrasound image has been reviewed and interpreted by the physician identified as the performing physician in the associated interpretation and report. Past Medical History Diagnosis Date Hypertension Hyperlipidemia Diabetes mellitus, type 2 ([facility]) 2005 Insulin-requiring, with diabetic Nephropathy, Retinopathy Sleep apnea dx light apnea Chronic kidney disease Stage IV-V Anemia of chronic renal failure 01/24/2012 Acute upper GI bleed 01/18/2014 PUD on EGD, ulcer cauterized Stroke ([facility]) 2010 right surface stroke, residual left hand numbness/tingling Acute diastolic congestive heart failure ([facility]) 03/03/2016 Aortic valve stenosis, severe Vitamin D deficiency Skin cancer NSTEMI (non-ST elevated myocardial infarction) ([facility]) 03/03/2016 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 ([facility]) moderate 3-vessel CAD Paroxysmal atrial fibrillation ([facility]) 03/04/2016 HFrEF (heart failure with reduced ejection fraction) ([facility]) 03/09/2016 ADHF (acute decompensated heart failure) ([facility]) 03/09/2016 Coronary artery disease involving [place] coronary artery of [place] heart S/P PTCA (percutaneous transluminal coronary angioplasty) 03/10/2016 D1 - 2.25X15 mm Xience Alpine MESSI; mid LAD - 3.25X38 mm Xience Alpine MESSI Past Surgical History Procedure Laterality Date Colonoscopy Cataract extraction Bilateral 2004? Esophagogastroduodenoscopy N/A 01/18/2014 Procedure: ESOPHAGOGASTRODUODENOSCOPY; Surgeon: Caitlyn Khan MD; Location: [facility]; Service: Gastroenterology; Laterality: N/A; Av fistula placement Right 03/01/2016 Procedure: AV FISTULA; Surgeon: Vivek Dias MD; Location: [facility]; Service: Vascul ar; Laterality: Right; brachiocephalic fistula creation Skin cancer excision mid forehead Coronary angioplasty with stent placement 03/10/2016 D1 - 2.25X15 mm Xience Alpine MESSI; mid LAD - 3.25X38 mm Xience Alpine MESSI PROBLEM LIST Principal Problem: NSTEMI (non-ST elevated myocardial infarction) ([facility]) Active Problems: Type 2 diabetes mellitus with diabetic nephropathy ([facility]) Obesity Anemia of chronic renal failure, stage 5 ([facility]) Moderate aortic stenosis Aortic stenosis Acute diastolic congestive heart failure ([facility]) ESRD (end stage renal disease) ([facility]) Difficulty in walking Debility, unspecified 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 ([facility]) Paroxysmal atrial fibrillation ([facility]) HFrEF (heart failure with reduced ejection fraction) ([facility]) ADHF (acute decompensated heart failure) ([facility]) Coronary artery disease involving [place] coronary artery of [place] heart S/P PTCA (percutaneous transluminal coronary angioplasty) ASSESSMENT & PLAN Evcacrz[age]ltk[age]lrdd-old male with extensive past medical history including coronary artery dis ease; end-stage renal disease, on dialysis; heart failure with reduced ejection fraction; an d severe aortic valve stenosis who presents with the followin. Acute coronary syndrome, non-ST elevation [place]. The patient underwent first cardiac cathet erization on March 10, 2016, during which he received 2 drug-eluting stents to D1 and mid L AD by Dr. Dangelo. Plan for a staged second cardiac catheterization tomorrow to address RCA. Th e patient was evaluated by cardiothoracic surgery but was found to be too high risk for CABG and aortic valve replacement. Outpatient referral to specialized center for evaluation for elective TAVR. I appreciate Cardiology's input and followup. 2. Rchea-cf-zowoyxy systolic and diastolic heart failure. An echo showed EF of 30% to 35% w ith severe and moderate pulmonary hypertension. Continue p.r.n. BiPAP. The patient is usi ng less BiPAP support currently. He is saturating well now on 3 to 4 L of O2 via nasal cannu la. 3. Severe aortic valve stenosis. Worsening gradient. Outpatient referral to TAVR. 4. Chronic kidney disease with end-stage renal disease on dialysis. The patient has a right IJ central venous catheter for dialysis which will be continued. He has a right upper extre mity AV fistula which is in the process of maturing. Next hemodialysis tomorrow and subseque ntly on the outpatient basis in [facility] under the direction of Dr. Ly. 5. Type 2 diabetes mellitus. Continue current insulin regimen. Blood glucose levels have be en below 200. 6. Hypertension. Continue current antihypertensives including amlodipine, hydralazine, and Coreg. 7. Anemia of chronic disease. There is no evidence of active bleeding. H and H has been dec reasing. Today it is 7.8 and 23.7. Recheck again in the morning. He might require RBCs if H and H drops below 7 and 20. 8. Ambulatory dysfunction. The patient has significant overall deconditioning secondary to multiple comorbidities. He walked today with Physical Therapy in the hallway. Continue PT. O utpatient referral to physical therapy. 9. DVT prophylaxis. SCDs and subcutaneous heparin. The patient will consider whether or not SNF would be appropriate placement for him. Brianna Hernandez MD 03/12/2016 7:01 PM Peter Roque M D - 03/11/2016 10:40 AM PDT Progress Notes by Peter Christianson MD at 03/11/16 1040 Author: Peter Christianson MD Service: Nephrology Author Type: Physician Filed: 03/11/16 1044 Date of Service: 03/11/16 1040 Status: Signed Whitesmith: Peter Christianson MD (Physician) PCP : [facility] LOS: 8 days Brianna Vital is a 70 y.o. man followed for ESRD management in setting of curr ent hospitalization with decompensated HFREF I assumed nephrology care from Dr. Snell 03/09/2016. 03/04/2016 Xr Chest 1 (seen by myself) showed bilateral perihilar pulmonary edema. Cardiac cath with Dr. Dangelo showed moderate aortic stenosis. 2. Moderate 3-vessel coronary a rtery disease.3. Mild pulmonary hypertension. 4. Mild pulmonary artery stenosis. 5. Severe l eft ventricular diastolic dysfunction. 03/06/2016 Echo showed EF between 30 - 35 %; severe aortic stenosis; moderate pulmonary hype rtension. 03/09/2016 Dialysis with 2 L UF 03/10/2016 S/p PCI with Dr. Sweet which showed - Severe Mid LAD with FFR 0.63 - Severe first diagonal - Successful PTCA/stent proximal first diagonal using 2.25X15 mm Xience Alpine - Successful PTCA/stent proximal to mid LAD using 3.25X38 mm Xience Alpine MESSI, postdilated using 3.25 noncompliant balloons. - Successful kissing balloons of LAD and diagonal bifurcation ising noncompliant balloons. Plan was for - ASA 81 mg for life - Ticagrelor 90 mg BID for 12 month - Integrelin for 12 hours - Continue carvedilol, atorvastatin - Hold amlodipine, restart tomorrow if BP elevated. - Will need staged PCI RCA He continued to have shortness of breath. 03/11/2016 He is seen on HD with RN "David". No complications identified. He continues to be short of br eath and on BIPAP. He has No fever, chills, nausea, vomiting, diarrhea, chest pain, cough. He is nonoliguric. ROS: As in History of Present Illness. 7 area ROS was done and was otherwise negative. Examination: Constitutional: Alert, awake, oriented lying flat in bed in some degree of shortness of br eath. On BiPAP. HEENT: Thick neck with JVD, non icteric sclera. Cardiovascular: S1 no friction rub. No S3. Systolic murmur at apex with radiation to the b ack and up to the carotids LUNGS:: Effort fair. Reduced AE at bases. Abdominal: Soft, No distension and no mass. No rebound tenderness and no guarding. Musculoskeletal: No gross deformity, EXT: No lower extremity edema . Neurological: Speech fluent. No asterixis. Moves all 4 extremities. Skin: Skin is warm and dry. No rashes, lacerations, erythema or jaundice. Psychiatric: Pleasant demeanor HD access: Right IJ CVC Right UE AVF (immature) The following portions of the patient's history were reviewed and updated as appropriate: l aboratory data, radiologic studies, allergies, current medications, and problem list. Past m edical, surgical, social, and family history was also reviewed. Past history summarized as a todd. Significant PMH: ESRD. He was started on HD by Dr. Espinosa 02/2016. Primary printed circuit layout taper is Dr. Ly. He i s s/p right UE AVF placement by Dr. Dias 02/2016 Severe Family/social history: Noncontributory. He lives in [place] with his family. He is a life long non smoker. Vital Signs: BP 124/69 mmHg | Pulse 77 | Temp(Src) 97.4 F (36.3 C) (Axillary) | Resp 24 | Ht 1.753 m (5' 9") | Wt 98.4 kg (216 lb 14.9 oz) | BMI 32.02 kg/m2 | SpO2 98% Lab Results Component Value Date BUN 32* 03/11/2016 CREATININE 4.8* 03/11/2016 EGFR 13* 03/11/2016 NA 141 03/11/2016 K 4.2 03/11/2016 CL 105 03/11/2016 CO2 26 03/11/2016 CA 8.2* 03/11/2016 PHOS 6.5* 03/04/2016 MG 2.4 03/04/2016 ALB 2.5* 03/09/2016 HGB 7.8* 03/11/2016 Problem list: ESRD Severe HFREF CAD with NSTEMI Severe anemia Secondary hyperparathyroidism with hyperphosphatemia Assessment and Recommendations: Brianna Vital is a 70 y.o. man with nonoliguric ESRD as per PMH He is hemodynamically stable and is s/p cardiac cath with PCI with Dr. Sweet and s/p PCI a s above with plan elective TAVR at [facility]. HFREF is minimally decompensated., Plan for HD MWF using right IJ CVC. UF as tolerated Continue ALNE with target Hb of 10 to 11. Continue current medications. Anticipate AVF maturation and use in 8 to 12 weeks. Diet: 1 gm/kg protein, 1 gm PO4, restricted diet. Dose all meds for an eGFR of less than 15 ml/min/1.73 m2. No use of NSAIDs (including DUKE 2 inhibitors). No use of Magnesium or aluminum containing antacids. No use of Magnesium or phosphorus containing laxatives No Fluid restriction. Strict I/O. Daily weights. Keep in positive balance. PETER CHRISTIANSON MD 03/11/2016 Discussed with the primary team, Dr. Chanel He was seen earlier in the day and charting completed later after rounds. Dictation software, Screen Tonic, was used which may contain error for similar sounding words latesha n after review. Personal communication requested for any clarification. Prognosis is guarded in view of multiple comorbid illnesses and ESRD and severe . aspirin 81 mg Oral Daily with breakfast atorvastatin 80 mg Oral Nightly carvedilol 6.25 mg Oral BID WC cholecalciferol 1,000 Units Oral QPM heparin (porcine) 1,000 Units Intracatheter Once per day on Fri heparin (porcine) 500 Units Intracatheter Once per day on Fri heparin (porcine) Intracatheter Daily hydrALAZINE 10 mg Oral TID insulin glargine 60 Units Subcutaneous QAM insulin lispro (human) 0-3 Units Subcutaneous Nightly insulin lispro (human) 0-6 Units Subcutaneous TID AC pantoprazole 40 mg Intravenous BID sevelamer 1,600 mg Oral TID WC sitagliptan 25 mg Oral Daily terazosin 10 mg Oral Nightly ticagrelor 90 mg Oral BID Julian, See Bobo MD - 03/11/2016 8:59 AM PDT Progress Notes by See Dangelo MD at 03/11/16 0859 Author: See Dangelo MD Service: Cardiology Author Type: Physician Filed: 03/12/16 1024 Date of Service: 10/03/16 0859 Status: Addendum Whitesmith: See Dangelo MD (Physician) Related Notes: Original Note by See Dangelo MD (Physician) filed at 03/11/16 0972 [facility] Service: Cardiology Progress Note Hospital Day: LOS: 8 days Post-Op Day: * No surgery found * SUBJECTIVE Patient Summary: 70M followed by Aki Germain D.O., at our [place] office for sev ere aortic stenosis, and Sweta Ly MD for stage IV chronic kidney disease. Because of wo rsening renal function, he had a right brachiocephalic AV fistula created by Dr. Dias on 03/01. After being discharged following that procedure, he was home for a short time, and note d that he had decreased appetite, and felt "bloated". 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 There is no orthopnea or PND. There was no chest pain, pressure or discomfort, no palpitations. He came to the em ergency room. Supplemental oxygen helped the dyspnea. He was given IV Lasix, but urinated on ly a scant amount. His chest x-ray showed evidence of bilateral pulmonary edema. His tropon in was elevated at 1.8, consistent with an acute NSTEMI. His EKG showed only mild anterolate ral ST abnormalities, and frequent unifocal PVCs, which were not present on an EKG 2 days PT A. He has been hemodynamically stable. Cardiac catheterization revealed only moderate ao rtic stenosis by cath criteria, The measured at a falsely low value due to the markedly incr eased cardiac output used in the calculation, and the cardiac output is elevated due to the AV fistula. His repeat echocardiogram is still consistent with severe aortic stenosis, as me asured by the VTI, which is an measurement that is independent of the cardiac output. He als o has moderately severe 3-vessel CAD. He was seen by Jesús Pantoja MD, for consideration o f AVR and coronary bypass, but his STS score was high (10% mortality).. He had a tunneled ri t internal jugular dialysis catheter placed and is now undergoing a HD session. He had AF ib with intial HD, spontaneously converted to NSR. Events Overnight: No complaints. He denies chest pain, SOB. He underwent PCI in the L AD and diagonal branch 10/2/16 (proximal first diagonal using 2.25X15 mm Xience Alpine MESSI, mid LAD using 3.25X38 mm Xience Alpine MESSI, postdilated using 3.25 noncompliant balloons, an d kissing balloons of LAD and diagonal bifurcation). I reviewed the report, and personally r eviewed the images. Past Medical History Diagnosis Date Hypertension Hyperlipidemia Diabetes mellitus, type 2 ([facility]) 2005 Insulin-requiring, with diabetic Nephropathy, Retinopathy Sleep apnea dx light apnea Chronic kidney disease Stage IV-V Anemia of chronic renal failure 01/24/2012 Acute upper GI bleed 01/18/2014 PUD on EGD, ulcer cauterized Stroke ([facility]) 2010 right surface stroke, residual left hand numbness/tingling Acute diastolic congestive heart failure ([facility]) 03/03/2016 Aortic valve stenosis, severe Vitamin D deficiency Skin cancer NSTEMI (non-ST elevated myocardial infarction) ([facility]) 03/03/2016 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 ([facility]) moderate 3-vessel CAD Paroxysmal atrial fibrillation ([facility]) 03/04/2016 HFrEF (heart failure with reduced ejection fraction) ([facility]) 03/09/2016 ADHF (acute decompensated heart failure) ([facility]) 03/09/2016 Coronary artery disease involving [place] coronary artery of [place] heart S/P PTCA (percutaneous transluminal coronary angioplasty) 03/10/2016 D1 - 2.25X15 mm Xience Alpine MESSI; mid LAD - 3.25X38 mm Xience Alpine MESSI Past Surgical History Procedure Laterality Date Colonoscopy Cataract extraction Bilateral 2004? Esophagogastroduodenoscopy N/A 01/18/2014 Procedure: ESOPHAGOGASTRODUODENOSCOPY; Surgeon: Caitlyn Khan MD; Location: [facility]; Service: Gastroenterology; Laterality: N/A; Av fistula placement Right 03/01/2016 Procedure: AV FISTULA; Surgeon: Vivek Dias MD; Location: [facility]; Service: Vascul ar; Laterality: Right; brachiocephalic fistula creation Skin cancer excision mid forehead Coronary angioplasty with stent placement 03/10/2016 D1 - 2.25X15 mm Xience Alpine MESSI; mid LAD - 3.25X38 mm Xience Alpine MESSI Allergies Allergen Reactions Penicillins Rash Reacted with a rash as a child. Has not had penicillins since. Gemfibrozil Nausea and Vomiting Questran [Cholestyramine] Nausea and Vomiting Scheduled Medications aspirin 81 mg Oral Daily with breakfast atorvastatin 80 mg Oral Nightly carvedilol 6.25 mg Oral BID WC cholecalciferol 1,000 Units Oral QPM epoetin lakeisha 10,000 Units Intravenous Once in dialysis heparin (porcine) 1,000 Units Intracatheter Once per day on Fri heparin (porcine) 500 Units Intracatheter Once per day on Fri heparin (porcine) Intracatheter Daily hydrALAZINE 10 mg Oral TID insulin glargine 60 Units Subcutaneous QAM insulin lispro (human) 0-3 Units Subcutaneous Nightly insulin lispro (human) 0-6 Units Subcutaneous TID AC pantoprazole 40 mg Intravenous BID sevelamer 1,600 mg Oral TID WC sitagliptan 25 mg Oral Daily terazosin 10 mg Oral Nightly ticagrelor 90 mg Oral BID Continuous Infusions dextrose PRN Medications acetaminophen OR acetaminophen, bivalirudin, dextrose, dextrose, dextrose, fentaNYL, gl ucagon, glucagon, heparin (porcine), HYDROcodone-acetaminophen OR HYDROcodone-acetaminop hen, midazolam, nitroGLYCERIN, ondansetron OR ondansetron, phenylephrine, polyethylene g lycol, zolpidem OBJECTIVE Vital Signs: BP 123/68 mmHg | Pulse 78 | Temp(Src) 97.4 F (36.3 C) (Axillary) | Resp 24 | Ht 1.753 m (5' 9") | Wt 98.4 kg (216 lb 14.9 oz) | BMI 32.02 kg/m2 | SpO2 98% Temp: [97 F (36.1 C)-98.5 F (36.9 C)] 97.4 F (36.3 C) (03/11 630) BP: (104-149)/(51-84) 123/68 mmHg (03/11 900) Heart Rate: [74-86] 78 (03/11 900) Resp: [18-25] 24 (03/11 900) SpO2: [92 %-100 %] 98 % (03/11 900) FiO2 : [30 %-60 %] 30 % (03/11 351) TELEMETRY: NSR I/O: 2,212 / 425, net -1,187 since admission GENERAL: Morbidly obese, well developed, well nourished elderly male, in no dis tress. Appears older than his stated age. On BiPAP. HEENT: Normocephalic, atraumatic. EYES: Well healed iridectomies. PERRL, sclerae anicteric, no xanthelsasmas MOUTH: Oral mucosae moist, dentition adequate, no lesions noted NECK: Tunneled RIJV HD catheter. No JVD, lymphadenopathy, thyromegaly, bruits. Car otid pulses are 1+ bilaterally and delayed LUNGS: Diffusely decreased breath sounds anteriorly and laterally, with diffuse expirator y wheezing, no rales, rhonchi, respirations unlabored HEART: Nondisplaced PMI, regular rate and rhythm, S1 normal, S2 diminished but faintly au dible. 2-3/6 late peaking systolic crescendo decrescendo murmur at the base, radiating to the left sternal border. No rubs or gallops noted. ABDOMEN: Obese. Soft, nontender, no organomegaly, masses or bruits. Bowel sounds are no rmal in all 4 quadrants. The abdominal aortic pulsation is not palpable. EXTREMITIES: 1+ ankle edema bilaterally. Radial pulses 2+ on the left, nonpalpable on the right, where a brachiocephalic AV fistula surgical site is bandaged, but has a palpable thr ill. Femoral pulses covered with FemStops bilaterally. DP and PT pulses are 1+ bilateral ly. SKIN: Warm and dry, capillary refill is normal, no lesions. Tinea uguis of the toenails. NEUROLOGIC: Awake, alert and oriented x 3. No focal motor deficits. PSYCHIATRIC: Appropriate, affect appears normal DATA ECHO (03/05/16): 1. This was a technically difficult study with suboptimal views. 2. Overall left ventricular systolic function is moderate-severely impaired with, an EF bet ween 30 - 35 %. 3. The right ventricle is mildly enlarged, but right ventricular systolic function is meseret l. 4. The left atrium is markedly dilated. 5. There is severe aortic stenosis present. 6. There is moderate pulmonary hypertension. The right ventricular systolic pressure (pul monary artery systolic pressure), as measured by Doppler, is 55 mm Hg. CBC: Lab Results Component Value Date WBC 8.56 03/11/2016 RBC 2.75* 03/11/2016 HGB 7.8* 03/11/2016 HGB 9.9* 08/28/2015 HCT 23.7* 03/11/2016 MCV 86.1 03/11/2016 MCH 28.2 03/11/2016 MCHC 32.8 03/11/2016 RDW 43.3 03/11/2016 PLT 175 03/11/2016 MPV 10.3 03/11/2016 DIFFTYPE MANUAL 03/11/2016 CMP: Lab Results Component Value Date NA 141 03/11/2016 K 4.2 03/11/2016 CL 105 03/11/2016 CO2 26 03/11/2016 ANIONGAP 14 03/11/2016 GLUF 69 03/11/2016 BUN 32* 03/11/2016 CREATININE 4.8* 03/11/2016 CREATININE 5.79* 11/22/2015 BCR 7 03/11/2016 CA 8.2* 03/11/2016 CA 9.7 09/11/2015 PROT 6.0* 03/09/2016 ALB 2.5* 03/09/2016 GLOB 3.5 03/09/2016 BILITOT 0.3 03/09/2016 ALP 42 03/09/2016 AST 15 03/09/2016 ALT 14 03/09/2016 EGFR 13* 03/11/2016 LIPID PANEL: TC-113, LDL-42, HDL-41, TG-149 PROBLEM LIST Principal Problem: NSTEMI (non-ST elevated myocardial infarction) ([facility]) Active Problems: Type 2 diabetes mellitus with diabetic nephropathy ([facility]) Obesity Anemia of chronic renal failure, stage 5 ([facility]) Moderate aortic stenosis Aortic stenosis Acute diastolic congestive heart failure ([facility]) ESRD (end stage renal disease) ([facility]) Difficulty in walking Debility, unspecified 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 (H CC) Paroxysmal atrial fibrillation ([facility]) HFrEF (heart failure with reduced ejection fraction) ([facility]) ADHF (acute decompensated heart failure) ([facility]) Coronary artery disease involving [place] coronary artery of [place] heart S/P PTCA (percutaneous transluminal coronary angioplasty) ASSESSMENT & PLAN 1. Acute NSTEMI, Killip class II, hemodynamically stable, with 3-vessel CAD, now s/p PCI/DE S in the 1st diagonal branch and mid LAD. The RCA lesion appears to be significant as well, but treatment will be staged for later. He has been started on aspirin, Brilinta, Coreg and losartan. CABG/AVR surgery was felt to be of prohibitively high risk. 2. Severe by echocardiography last month, confirmed on a repeat study, with ZEKE 0.97 cm sq, peak transvalvular velocity measured at 4.1 m/s, an indicator of severe . The was calculated as only moderate by cardiac catheterization criteria, but this is because cardiac output was calculated so high (9.3 L/min., likely due to the arteriovenous fistula). In th is case, echocardiographic (VTI) assessment is a more accurate measurement (peak/mean gradie nts 57/39 mm Hg by echo, 40/32 mm Hg on cath). He will be referred for evaluation for TAVR following this hospitalization. 3. Dilated Cardiomyopathy, EF 30-35% on echo, likely mixed ischemic and non-ischemic etiolo gy 4. Stage V chronic kidney disease, right upper extremity brachiocephalic AV fistula created 03/01/16, but it will be sometime before this can be used. He will had a tunneled RIJV dialy sis access placed, and hemodialysis has been started on this admission. 5. 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 Essential hypertension, controlled 8. Moderate Pulmonary HTN, likely secondary to # 2, 3, 8 7. History of a right CVA, with minimal residual left arm numbness and tingling, but no oth er residual deficits. 8. Mild obstructive sleep apnea, untreated 9. Severe anemia due to chronic kidney disease, will recheck H/H following HD (2.5L to be r emoved today, after which H/H should increase). 10. Paroxysmal Atrial Fibrillation with his initial HD session, maintaining NSR since then. 11. Hyperlipidemia, with metabolic syndrome, well controlled Disposition: Continue hemodialysis and current medications. Leyla Sweet M.D., will perform PCI of the RCA, time frame to be determined. Following this, he can be referred debbie ctively to a tertiary center for TAVR. Code Status: Full Code See Dangelo MD 03/11/2016 Ruben Clark MD - 03/11/2016 8:15 AM PDT Progress Notes by Ruben Chanel MD at 03/11/16814 Author: Ruben Chanel MD Service: Hospitalist Author Type: Physician Filed: 03/11/16830 Date of Service: 03/11/16814 Status: Signed Whitesmith: Ruben Chanel MD (Physician) [facility] Service: Hospitalist Progress Note Brianna Vital 70 y.o. [id number] male [facility] Day: LOS: 8 days SUBJECTIVE Patient Summary: 70-year-old male with a history of stage V chronic kidney disease (fistula formation [address] Dias), presented with respiratory distress, non-STEMI, and and acute on chronic suzanne l failure. Initially treated with IV Lasix with minimal improvement, patient developed worse ankur pulmonary edema, patient required emergent hemodialysis, with a right IJ hemodialysis c atheter placed on the and underwent first hemodialysis on the . Dr. Dangelo performed heart catheterization. Found to have moderate three-vessel disease and s evere aortic stenosis. Evaluated by Dr. Pantoja, deemed high risk, as a result Dr. Sweet to perform staged PCI. Patient underwent heart catheterization yesterday, stent placed to prox imal first diagonal and mid LAD. Patient is scheduled for a tentative PCI to RCA on . Patient will then be referred for elective TAVR - Patient with recurrent episodes of dyspnea, on and off BiPAP. Yesterday after a procedure dyspnea, BiPAP resumed at 30 percent FiO2, presently undergoing hemodialysis and feeling im proved. Presently denies any chest pain, breathing improved, no nausea no emesis. Scheduled Medications aspirin 81 mg Oral Daily with breakfast atorvastatin 80 mg Oral Nightly carvedilol 6.25 mg Oral BID WC cholecalciferol 1,000 Units Oral QPM heparin (porcine) 1,000 Units Intracatheter Once per day on Fri heparin (porcine) 500 Units Intracatheter Once per day on Fri heparin (porcine) Intracatheter Daily hydrALAZINE 10 mg Oral TID insulin glargine 60 Units Subcutaneous QAM insulin lispro (human) 0-3 Units Subcutaneous Nightly insulin lispro (human) 0-6 Units Subcutaneous TID AC pantoprazole 40 mg Intravenous BID sevelamer 1,600 mg Oral TID WC sitagliptan 25 mg Oral Daily terazosin 10 mg Oral Nightly ticagrelor 90 mg Oral BID Continuous Infusions dextrose PRN Medications acetaminophen OR acetaminophen, bivalirudin, dextrose, dextrose, dextrose, fentaNYL, gl ucagon, glucagon, heparin (porcine), HYDROcodone-acetaminophen OR HYDROcodone-acetaminop hen, midazolam, nitroGLYCERIN, ondansetron OR ondansetron, phenylephrine, polyethylene g lycol, zolpidem Allergy: Allergies Allergen Reactions Penicillins Rash Reacted with a rash as a child. Has not had penicillins since. Gemfibrozil Nausea and Vomiting Questran [Cholestyramine] Nausea and Vomiting OBJECTIVE Vital Signs: BP 127/67 mmHg | Pulse 77 | Temp(Src) 97.4 F (36.3 C) (Axillary) | Resp 24 | Ht 1.753 m (5' 9") | Wt 98.4 kg (216 lb 14.9 oz) | BMI 32.02 kg/m2 | SpO2 99% I&O Detailed Table: I/O last 3 completed shifts: In: 2212 [I.V.:2212] Out: 575 [Urine:575] Weight change: Hemodynamics Last 24hrs: Examination: Constitutional: Patient is alert and oriented. Appears frail but well-developed and not in acute distress at this time., Presently on BiPAP at 30 percent FiO2 Undergoing hemodialysis HEENT: Head: Nose: Mouth/Throat: Oropharynx is clear and moist. Eyes: Neck: Cardiovascular: RRR, + Loud Systolic Murmur Pulmonary/Chest: Crackles lower lung matthews Abdominal: Soft, BS present, no distension, Musculoskeletal: Moves all limbs, No joint tenderness. Trace pedal edema. Neurological: No focal neurologic deficits. Skin: Skin is warm and dry. No rash noted. No erythema. No pallor. Psychiatric: No psychosis, Dysphoric affect, normal mood. Judgment is fair. LABS: Recent Results (from the past 24 hour(s)) POC ACT, arterial Collection Time: 03/10/16 11:19 AM Result Value Ref Range POC ACT 104 74 - 137 seconds POC ACT, arterial Collection Time: 03/10/16 11:33 AM Result Value Ref Range POC ACT 104 74 - 137 seconds POC ACT, arterial Collection Time: 03/10/16 11:39 AM Result Value Ref Range POC ACT 104 74 - 137 seconds POC ACT, arterial Collection Time: 03/10/16 12:00 PM Result Value Ref Range POC ACT 140 (H) 74 - 137 seconds POC ACT, arterial Collection Time: 03/10/16 12:14 PM Result Value Ref Range POC ACT 178 (H) 74 - 137 seconds POC ACT, arterial Collection Time: 03/10/16 12:15 PM Result Value Ref Range POC ACT 171 (H) 74 - 137 seconds POC ACT, arterial Collection Time: 03/10/16 12:32 PM Result Value Ref Range POC ACT 362 (H) 74 - 137 seconds POC ACT, arterial Collection Time: 03/10/16 2:06 PM Result Value Ref Range POC ACT 282 (H) 74 - 137 seconds POCT glucose Collection Time: 03/10/16 5:21 PM Result Value Ref Range GLUCOSE,POC SCREEN 101 (H) 65 - 99 mg/dL POC ACT, arterial Collection Time: 03/10/16 6:19 PM Result Value Ref Range POC ACT 171 (H) 74 - 137 seconds POCT glucose Collection Time: 03/10/16 9:00 PM Result Value Ref Range GLUCOSE,POC SCREEN 87 65 - 99 mg/dL CBC w/auto diff (reflex to manual) Collection Time: 03/11/16 4:26 AM Result Value Ref Range WBC 8.56 3.80 - 11.00 K/uL RBC 2.75 (L) 4.20 - 5.70 M/uL HGB 7.8 (L) 13.2 - 17.0 g/dL HCT 23.7 (L) 39.0 - 50.0 % MCV 86.1 80.0 - 100.0 fl MCH 28.2 27.0 - 34.0 pg MCHC 32.8 32.0 - 35.5 g/dL RDW SD 43.3 37 - 53 fl PLT 175 150 - 400 K/uL MPV 10.3 fl DIFF TYPE MANUAL Neutrophils Manual 87 % Bands 3 % Lymphocytes Manual 3 % Monocytes Manual 7 % Neutrophils Absolute 7.44 (H) 1.90 - 7.40 K/uL Bands Manual 0.26 (H) 0.00 - 0.20 K/uL Lymphocytes Absolute 0.26 (L) 1.00 - 3.90 K/uL Monocytes Absolute 0.60 0.00 - 0.80 K/uL MORPHOLOGY 2+ Basic metabolic panel Collection Time: 03/11/16 4:26 AM Result Value Ref Range SODIUM 141 135 - 145 mmol/L POTASSIUM 4.2 3.5 - 4.9 mmol/L CHLORIDE 105 99 - 109 mmol/L CO2 26 23 - 32 mmol/L ANION GAP AGAP 14 5 - 20 mmol/L GLUCOSE 69 65 - 99 mg/dL BUN 32 (H) 8 - 25 mg/dL CREATININE 4.8 (H) 0.70 - 1.30 mg/dL BUN/CREAT 7 CALCIUM 8.2 (L) 8.5 - 10.5 mg/dL EGFR 13 (L) >60 mL/min/1.73m2 POCT glucose Collection Time: 03/11/16 5:02 AM Result Value Ref Range GLUCOSE,POC SCREEN 77 65 - 99 mg/dL PROBLEM LIST Principal Problem: NSTEMI (non-ST elevated myocardial infarction) ([facility]) Active Problems: Type 2 diabetes mellitus with diabetic nephropathy ([facility]) Obesity Anemia of chronic renal failure, stage 5 ([facility]) Moderate aortic stenosis Aortic stenosis Acute diastolic congestive heart failure ([facility]) ESRD (end stage renal disease) ([facility]) Difficulty in walking Debility, unspecified 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 ( CC) Paroxysmal atrial fibrillation ([facility]) HFrEF (heart failure with reduced ejection fraction) ([facility]) ADHF (acute decompensated heart failure) ([facility]) ASSESSMENT & PLAN Acute Coronary Syndrome / NSTEMI: S/P Cardiac catheterization by Dr. Dangelo found to have mo derate three vessel disease and severe aortic stenosis. CT surgery consulted and Dr. Marquita cohen consulted , patient deemed high risk for surgery (CABG and aortic valve replacement,) marlene ent to undergo stage PCI, Underwent PCI of coronary artery, with stent to proximal first di agonal and mid LAD, tentative scheduled for PCI to RCA on Friday - Will be referred subsequently for elective TAVR - Cardiology consulted Acute on Chronic systolic and diastolic CHF Dysfunction: - Echocardiogram EF 30-35 percent, severe aortic stenosis, moderate pulmonary hypertension - Dyspneic, on BiPAP prn Severe Aortic Stenosis: Chronic and worsening, this is contributing to his current symptom s of shortness of breath and volume overloaded state. - TAVR Chronic Kidney Disease, Stage V / ESRD: - Right IJ hemodialysis , also started with clinically improve - Again renal diet, fluid restriction 1000 mL/24hrs - Undergoing daily HD - Scheduling outpatient HD Diabetes Mellitus, Type 2: Blood sugars seems to be stable, will continue with Lantus with caution and give additional Humalog per SSI. Hypertension: BP seems to be stable at this time, will continue Coreg, Amlodipine and Hydra lazine as scheduled and monitor hemodynamics. Anemia of Chronic CKD: H&H is low at 8.6, no active bleeding at this time. Will continue to monitor CBC and transfuse as needed. Difficulty in Walking / Debility: Multifactorial, due to deconditioning and CHF exacerbati on, will involve PT services when stable and monitor. - May require rehab/SNF, pt agrees DVT prophylaxis with SCD's and Heparin. Disposition: Patient to undergo staged PCI, then will require discharge to SNF, continued H D, and then will be scheduled for elective T aVR Ruben Chanel MD 03/11/2016 onversion Transact ion, Provider Unknown - 03/11/2016 3:51 AM PDTFormatting of this note might be different fr om the original. Nurse Progress Note by Tali Cervantes RN at 03/11/16350 Author: Tali Cervantes RN Service: (none) Author Type: Registered Nurse Filed: 03/11/16354 Date of Service: 03/11/16350 Status: Signed Whitesmith: Tali Cervantes RN (Registered Nurse) Pt intermittently asked to have BiPAP removed for sips of water, oxymask placed on at 100% O2. Pt noted to become more tachypniec and using accessory muscles. Pt placed back to BiPAP and instructed to leave in place. No signs and symptoms of distress when BiPAP is on. Peter Roque MD - 03/10/2016 11:16 PM PDTFormatting of this note might be different from the or iginal. Progress Notes by Peter Christianson MD at 03/10/160 Author: Peter Christianson MD Service: Nephrology Author Type: Physician Filed: 03/10/16 4911 Date of Service: 03/10/162315 Status: Signed Whitesmith: Peter Christianson MD (Physician) PCP : [facility] LOS: 7 days Brianna Vital is a 70 y.o. man followed for ESRD management in setting of curr ent hospitalization with decompensated HFREF I assumed nephrology care from Dr. Snell 03/09/2016. 03/04/2016 Xr Chest 1 (seen by myself) showed bilateral perihilar pulmonary edema. Cardiac cath with Dr. Dangelo showed moderate aortic stenosis. 2. Moderate 3-vessel coronary a rtery disease.3. Mild pulmonary hypertension. 4. Mild pulmonary artery stenosis. 5. Severe l eft ventricular diastolic dysfunction. 03/06/2016 Echo showed EF between 30 - 35 %; severe aortic stenosis; moderate pulmonary hype rtension. 03/09/2016 Dialysis with 2 L UF 03/10/2016 He is s/p PCI with Dr. Sweet. He continues to have shortness of breath. He has No fever, chills, nausea, vomiting, diarrhea, chest pain, cough. He is nonoliguric. ROS: As in History of Present Illness. 7 area ROS was done and was otherwise negative. Examination: Constitutional: Alert, awake, oriented lying flat in bed in some degree of shortness of br eath. On BiPAP. HEENT: Thick neck with JVD, non icteric sclera. Cardiovascular: S1 no friction rub. No S3. Systolic murmur at apex with radiation to the b ack and up to the carotids LUNGS:: Effort fair. Reduced AE at bases. Abdominal: Soft, No distension and no mass. No rebound tenderness and no guarding. Musculoskeletal: No gross deformity, EXT: No lower extremity edema . Neurological: Speech fluent. No asterixis. Moves all 4 extremities. Skin: Skin is warm and dry. No rashes, lacerations, erythema or jaundice. Psychiatric: Pleasant demeanor HD access: Right IJ CVC Right UE AVF (immature) The following portions of the patient's history were reviewed and updated as appropriate: l aboratory data, radiologic studies, allergies, current medications, and problem list. Past m edical, surgical, social, and family history was also reviewed. Past history summarized as a todd. Significant PMH: ESRD. He was started on HD by Dr. Espinosa 02/2016. Primary printed circuit layout taper is Dr. Ly. He i s s/p right UE AVF placement by Dr. Dias 02/2016 Severe Family/social history: Vital Signs: BP 129/66 mmHg | Pulse 83 | Temp(Src) 97.3 F (36.3 C) (Axillary) | Resp 21 | Ht 1.753 m (5' 9") | Wt 98.4 kg (216 lb 14.9 oz) | BMI 32.02 kg/m2 | SpO2 99% Lab Results Component Value Date BUN 36* 03/09/2016 CREATININE 4.9* 03/09/2016 EGFR 13* 03/09/2016 NA 140 03/09/2016 K 3.8 03/09/2016 CL 104 03/09/2016 CO2 26 03/09/2016 CA 8.1* 03/09/2016 PHOS 6.5* 03/04/2016 MG 2.4 03/04/2016 ALB 2.5* 03/09/2016 HGB 8.4* 03/09/2016 Problem list: ESRD Severe HFREF CAD with NSTEMI Severe anemia Secondary hyperparathyroidism with hyperphosphatemia Assessment and Recommendations: Brianna Vital is a 70 y.o. man with nonoliguric ESRD as per PMH He is hemodynamically stable and is s/p cardiac cath with PCI with Dr. Sweet and plan is f or elective TAVR at [facility]. HFREF is minimally decompensated., Plan for HD tomorrow and again MWF using right IJ CVC. UF as tolerated Continue LANE with target Hb of 10 to 11. Continue current medications. Anticipate AVF maturation and use in 8 to 12 weeks. Diet: 1 gm/kg protein, 1 gm PO4, restricted diet. Dose all meds for an eGFR of less than 15 ml/min/1.73 m2. No use of NSAIDs (including DUKE 2 inhibitors). No use of Magnesium or aluminum containing antacids. No use of Magnesium or phosphorus containing laxatives No Fluid restriction. Strict I/O. Daily weights. Keep in positive balance. PETER CHRISTIANSON MD 03/10/2016 Discussed with the primary team, Dr. Chanel and Dr. Sweet He was seen earlier in the day and charting completed later after rounds. Dictation software, Screen [employer]onic, was used which may contain error for similar sounding words latesha n after review. Personal communication requested for any clarification. Prognosis is guarded in view of multiple comorbid illnesses and ESRD and severe . aspirin 81 mg Oral Daily with breakfast atorvastatin 80 mg Oral Nightly atropine carvedilol 6.25 mg Oral BID WC cholecalciferol 1,000 Units Oral QPM heparin (porcine) 1,000 Units Intracatheter Once per day on Fri heparin (porcine) 500 Units Intracatheter Once per day on Fri heparin (porcine) Intracatheter Daily hydrALAZINE 10 mg Oral TID insulin glargine 60 Units Subcutaneous QAM insulin lispro (human) 0-3 Units Subcutaneous Nightly insulin lispro (human) 0-6 Units Subcutaneous TID AC pantoprazole 40 mg Intravenous BID sevelamer 1,600 mg Oral TID WC sitagliptan 25 mg Oral Daily terazosin 10 mg Oral Nightly ticagrelor 90 mg Oral BID onversion Transactio n, Provider Unknown - 03/10/2016 3:56 PM PDT Progress Notes by Viky Little RN at 03/10/16 417 Author: Viky Little RN Service: (none) Author Type: Registered Nurse Filed: 03/10/16 6421 Date of Service: 03/10/16 025 Status: Signed Whitesmith: Viky Little RN (Registered Nurse) Report given to 4 RP nurse. Family aware of patient's transfer. Viky Little RN onver rosie Transaction, Provider Unknown - 03/10/2016 2:07 PM PDT Progress Notes by Aminata Hedrick RD, CD at 03/10/16 000 Author: Aminata Hedrick RD, CD Service: (none) Author Type: Registered Dietitian Filed: 03/10/16 246 Date of Service: 03/10/161406 Status: Signed Whitesmith: Aminata Hedrick RD, CD (Registered Dietitian) 03/10/16 4244 Subjective Timepoint Admit (LOS) Pt c/o Pt wsa admitted with NSTEMI. S/p AV fistula placement on 03/01/16. Urgent HD was done on admit using temporary catheter. 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 Diet Experience Self-selected diet(s) followed Unable to obtain diet hx at this time. Pt is off the floor a nd there is no family in the room. Fluid / Beverage Intake Oral Fluids Amount 1000 mL/day fluid restriction. Food Intake Amount of Food Per nursing documentation, pt has been eating 100% of meals. Type of Food / Meals Previously on a renal diet but was switched to a diabetic diet over e past few days. Micronutrient Intake Vitamin Intake D Mineral / Element Intake Iron Anthropometrics Weight change BMI 32.03 - grade 1 obesity. Based on previously documented wts, wt is unchan ged over the past month but is up about 5 kg from wt obtained 3.5 months ago. Will continue to monitor trend. Wt has fluctuated fairly significantly during this hospital admission, lik citlaly due to fluids. Biochemical data, medical tests, and procedures reviewed Biochemical data, medical tests, and procedures reviewed BG has been variable in the 100s-2 00s. Insulin and Januvia ordered. Fe 13 (L), likely anemia of CKD, on epo. BUN 36 (H), Cr 4. 9 (H) - CKD stage V, on HD per nephrology. Recommend checking phos level as pt currently has Renvela ordered. Recommendations Recommended energy needs Resume diabetic renal diet when indicated post procedure. Encourag e PO intake. Supplements available PRN. Will continue to monitor clinical course and f/u as indicated. Nutritional Risk Nutritional risk Low / moderate Follow up date 03/16/[address], CD, CNSC 03/10/2016 Stella Garza PT - 03/10/2016 12:00 PM PDTFormatting of this note might be different from original. Therapy Progress Note by Stella Quintanilla PT at 03/10/16 1200 Author: Stella Quintanilla PT Service: (none) Author Type: Physical Therapist Filed: 03/10/16 3912 Date of Service: 03/10/16 1200 Status: Signed Whitesmith: Stella Quintanilla PT (Physical Therapist) 03/10/16 1200 PT Last Visit PT Received On 03/10/16 Reason for Treatment Cardiac (NSTEMI; dialysis) Requires PT Follow Up Unavailable Other Comments Comments per RN- currently dosn in hoisting laborer- expected to get stent won't be available for P T today onversion Transa ction, Provider Unknown - 03/10/2016 9:46 AM PDT Progress Notes by Viky Little RN at 03/10/16945 Author: Viky Little RN Service: (none) Author Type: Registered Nurse Filed: 03/10/16945 Date of Service: 03/10/16945 Status: Signed Whitesmith: Viky Little RN (Registered Nurse) Patient taken down to hoisting laborer at this time. Viky Little RN 9:46 AM Rbuen Clark MD - 03/10/2016 7:12 AM PDT Progress Notes by Ruben Chanel MD at 03/10/16711 Author: Ruben Chanel MD Service: Hospitalist Author Type: Physician Filed: 03/10/16745 Date of Service: 03/10/16711 Status: Signed Whitesmith: Ruben Chanel MD (Physician) [facility] Service: Hospitalist Progress Note Brianna Vital 70 y.o. [id number] male [facility] Day: LOS: 7 days SUBJECTIVE Patient Summary: Signed out note:" Patient is a 70 year old male with with past medical history of CKD Stage 5, S/P Fistula Fo rmation on 03/01/[address] Dias, CHF, Diastolic Dysfunction, HTN, HLD and DM Type 2 who was admitted due to increasing dyspnea and decreased urinary out put. Labs showed elevated at 1 .8, consistent with an acute NSTEMI while EKG showed only mild anterolateral ST abnormalitie s and frequent unifocal PVCs. CMP revealed elevated Creatinine of 8 and GFR of 7. Cardiology and Nephrology services were consulted, started on oxygen and IV Lasix with minimal improve ment. His CXR showed evidence of bilateral pulmonary edema. S/P Cardiac catheterization by Maycol Dangelo t found to have moderate three vessel disease and severe aortic stenosis. Hemodialysis catheter placed on the , patient subsequently has undergone daily hemodia lysis , with improved respiratory failure , off BiPAP presently on [address] surgery consulted and Dr. Pantoja is following, patient deemed high risk surgical candid ate, intra-disciplinary meeting scheduled for this Friday. Events Overnight: - Right IJ hemodialysis catheter placed on , patient underwent his first hemodialysis on , BiPAP has been weaned off and was stable on 3 L, and a dyspneic with activity . - Patient to undergo PCI today by Dr. sweet - Afebrile, no chest pain, no abdominal pain or nausea no emesis - Patient evaluated for aortic valve replacement/CABG, deemed high risk surgical candidate , PCI, possibly staged, then elective TAVR Pt indicates feeling well today, improved dyspnea, no chest pain , ambulating in room Scheduled Medications amLODIPine 5 mg Oral Daily aspirin 81 mg Oral Daily with breakfast atorvastatin 80 mg Oral Nightly carvedilol 6.25 mg Oral BID WC cholecalciferol 1,000 Units Oral QPM diphenhydrAMINE 50 mg Oral Once famotidine 20 mg Oral Once heparin (porcine) 1,000 Units Intracatheter Once per day on Fri heparin (porcine) 500 Units Intracatheter Once per day on Fri heparin (porcine) Intracatheter Daily hydrALAZINE 10 mg Oral TID insulin glargine 60 Units Subcutaneous QAM insulin lispro (human) 0-3 Units Subcutaneous Nightly insulin lispro (human) 0-6 Units Subcutaneous TID AC lidocaine 40 mL Intradermal Once lidocaine-EPINEPHrine 1 mL Infiltration Once pantoprazole 40 mg Intravenous BID sevelamer 1,600 mg Oral TID WC sitagliptan 25 mg Oral Daily terazosin 10 mg Oral Nightly Continuous Infusions dextrose PRN Medications acetaminophen OR acetaminophen, dextrose, dextrose, dextrose, glucagon, glucagon, hepar in (porcine) 5000 unit/0.5mL, heparin (porcine) 5000 unit/0.5mL, HYDROcodone-acetaminophen * *OR HYDROcodone-acetaminophen, nitroGLYCERIN, ondansetron OR ondansetron, polyethylene glycol Allergy: Allergies Allergen Reactions Penicillins Rash Reacted with a rash as a child. Has not had penicillins since. Gemfibrozil Nausea and Vomiting Questran [Cholestyramine] Nausea and Vomiting OBJECTIVE Vital Signs: BP 129/66 mmHg | Pulse 72 | Temp(Src) 98.1 F (36.7 C) (Oral) | Resp 18 | Ht 1.753 m (5' 9") | Wt 98.4 kg (216 lb 14.9 oz) | BMI 32.02 kg/m2 | SpO2 95% I&O Detailed Table: I/O last 3 completed shifts: In: 3855 [P.O.:860; I.V.:995; Other:2000] Out: 5000 [Urine:500; Other:4500] Weight change: -1.2 kg (-2 lb 10.3 oz) Hemodynamics Last 24hrs: Examination: Constitutional: Patient is alert and oriented. Appears frail but well-developed and not in acute distress at this time., On 6 L oxygen full speech, dyspneic with speech, presently on hemodialysis HEENT: Head: Nose: Mouth/Throat: Oropharynx is clear and moist. Eyes: Neck: Cardiovascular: RRR, + Loud Systolic Murmur Pulmonary/Chest: Crackles lower lung matthews Abdominal: Soft, BS present, no distension, Musculoskeletal: Moves all limbs, No joint tenderness. Trace pedal edema. Neurological: No focal neurologic deficits. Skin: Skin is warm and dry. No rash noted. No erythema. No pallor. Psychiatric: No psychosis, Dysphoric affect, normal mood. Judgment is fair. LABS: Recent Results (from the past 24 hour(s)) POCT glucose Collection Time: 03/09/16 10:43 AM Result Value Ref Range GLUCOSE,POC SCREEN 191 (H) 65 - 99 mg/dL Comprehensive metabolic panel Collection Time: 03/09/16 11:49 AM Result Value Ref Range SODIUM 140 135 - 145 mmol/L POTASSIUM 3.8 3.5 - 4.9 mmol/L CHLORIDE 104 99 - 109 mmol/L CO2 26 23 - 32 mmol/L ANION GAP AGAP 14 5 - 20 mmol/L GLUCOSE 194 (H) 65 - 99 mg/dL BUN 36 (H) 8 - 25 mg/dL CREATININE 4.9 (H) 0.70 - 1.30 mg/dL BUN/CREAT 7 CALCIUM 8.1 (L) 8.5 - 10.5 mg/dL TOTAL PROTEIN 6.0 (L) 6.3 - 8.2 g/dL Albumin 2.5 (L) 3.3 - 4.8 g/dL GLOBULIN 3.5 1.3 - 4.9 g/dL A/G 0.7 (L) 1.0 - 2.4 TBIL 0.3 0.1 - 1.5 mg/dL ALK PHOS 42 35 - 115 U/L AST 15 10 - 45 U/L ALT 14 10 - 65 U/L EGFR 13 (L) >60 mL/min/1.73m2 CBC w/auto diff (reflex to manual) Collection Time: 03/09/16 11:49 AM Result Value Ref Range WBC 8.29 3.80 - 11.00 K/uL RBC 3.02 (L) 4.20 - 5.70 M/uL HGB 8.4 (L) 13.2 - 17.0 g/dL HCT 26.1 (L) 39.0 - 50.0 % MCV 86.2 80.0 - 100.0 fl MCH 27.9 27.0 - 34.0 pg MCHC 32.3 32.0 - 35.5 g/dL RDW SD 44.2 37 - 53 fl PLT 168 150 - 400 K/uL MPV 10.0 fl DIFF TYPE AUTOMATED NEUTROPHILS 78.99 % LYMPHOCYTES 7.68 % MONOCYTES 9.74 % EOSINOPHILS 2.24 % BASOPHILS 1.35 % NEUTROPHILS ABS 6.55 1.90 - 7.40 K/uL LYMPHOCYTES ABS 0.64 (L) 1.00 - 3.90 K/uL MONOCYTES ABS 0.81 (H) 0.00 - 0.80 K/uL EOSINOPHILS ABS 0.19 0.00 - 0.50 K/uL BASOPHILS ABS 0.11 (H) 0.00 - 0.10 K/uL POCT glucose Collection Time: 03/09/16 11:52 AM Result Value Ref Range GLUCOSE,POC SCREEN 200 (H) 65 - 99 mg/dL POCT glucose Collection Time: 03/09/16 4:22 PM Result Value Ref Range GLUCOSE,POC SCREEN 111 (H) 65 - 99 mg/dL POCT glucose Collection Time: 03/09/16 10:01 PM Result Value Ref Range GLUCOSE,POC SCREEN 119 (H) 65 - 99 mg/dL PROBLEM LIST Principal Problem: NSTEMI (non-ST elevated myocardial infarction) ([facility]) Active Problems: Type 2 diabetes mellitus with diabetic nephropathy ([facility]) Obesity Anemia of chronic renal failure, stage 5 ([facility]) Moderate aortic stenosis Aortic stenosis Acute diastolic congestive heart failure ([facility]) ESRD (end stage renal disease) ([facility]) Difficulty in walking Debility, unspecified 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 (H CC) Paroxysmal atrial fibrillation ([facility]) HFrEF (heart failure with reduced ejection fraction) ([facility]) ADHF (acute decompensated heart failure) ([facility]) ASSESSMENT & PLAN Acute Coronary Syndrome / NSTEMI: S/P Cardiac catheterization by Dr. Dangelo found to have mo derate three vessel disease and severe aortic stenosis. CT surgery consulted and Dr. Marquita cohen following, patient deemed high risk for surgery (CABG and aortic valve replacement, patien t to undergo a probable stage PCI, then T aVR - Cardiology consulted - Presently stable Acute on Chronic systolic and diastolic CHF Dysfunction: - Echocardiogram EF 30-35 percent, severe aortic stenosis, moderate pulmonary hypertension - Dyspneic, back on BiPAP Severe Aortic Stenosis: Chronic and worsening, this is contributing to his current symptom s of shortness of breath and volume overloaded state. - T aVR Chronic Kidney Disease, Stage V / ESRD: - Right IJ hemodialysis , also started with clinically improve - Again renal diet, fluid restriction 1000 mL/24hrs - Undergoing daily HD - Scheduling outpatient HD Diabetes Mellitus, Type 2: Blood sugars seems to be stable, will continue with Lantus with caution and give additional Humalog per SSI. Hypertension: BP seems to be stable at this time, will continue Coreg, Amlodipine and Hydra lazine as scheduled and monitor hemodynamics. Anemia of Chronic CKD: H&H is low at 8.6, no active bleeding at this time. Will continue to monitor CBC and transfuse as needed. Difficulty in Walking / Debility: Multifactorial, due to deconditioning and CHF exacerbati on, will involve PT services when stable and monitor. - May require rehab/SNF, pt agrees DVT prophylaxis with SCD's and Heparin. Ruben Chanel MD 03/10/2016 Leyla Junior MD - 03/09/2016 1:25 PM PDTFormatting of this note might be different from the origin al. Progress Notes by Leyla Sweet MD at 03/09/161324 Author: Leyla Sweet MD Service: Cardiology Author Type: Physician Filed: 03/09/16 134 Date of Service: 03/09/161324 Status: Signed Whitesmith: Leyla Sweet MD (Physician) [facility] Service: Cardiology Progress Note Hospital Day: LOS: 6 days Post-Op Day: * No surgery found * SUBJECTIVE Patient Summary: Events Overnight: * Scheduled Medications amLODIPine 5 mg Oral Daily aspirin 81 mg Oral Daily with breakfast atorvastatin 80 mg Oral Nightly carvedilol 6.25 mg Oral BID WC cholecalciferol 1,000 Units Oral QPM diphenhydrAMINE 50 mg Oral Once famotidine 20 mg Oral Once heparin (porcine) 1,000 Units Intracatheter Once per day on Fri heparin (porcine) 500 Units Intracatheter Once per day on Fri heparin (porcine) Intracatheter Daily hydrALAZINE 10 mg Oral TID insulin glargine 60 Units Subcutaneous QAM insulin lispro (human) 0-3 Units Subcutaneous Nightly insulin lispro (human) 0-6 Units Subcutaneous TID AC lidocaine 40 mL Intradermal Once lidocaine-EPINEPHrine 1 mL Infiltration Once pantoprazole 40 mg Intravenous BID sevelamer 1,600 mg Oral TID WC sitagliptan 25 mg Oral Daily terazosin 10 mg Oral Nightly Continuous Infusions dextrose PRN Medications acetaminophen OR acetaminophen, dextrose, dextrose, dextrose, glucagon, glucagon, hepar in (porcine) 5000 unit/0.5mL, heparin (porcine) 5000 unit/0.5mL, HYDROcodone-acetaminophen * *OR HYDROcodone-acetaminophen, nitroGLYCERIN, ondansetron OR ondansetron, polyethylene glycol OBJECTIVE Vital Signs: BP 131/70 mmHg | Pulse 70 | Temp(Src) 98.6 F (37 C) (Oral) | Resp 24 | Ht 1.753 m (5' 9 ") | Wt 101.2 kg (223 lb 1.7 oz) | BMI 32.93 kg/m2 | SpO2 95% Temp: [97.4 F (36.3 C)-99 F (37.2 C)] 98.6 F (37 C) (10/01 1215) BP: (108-132)/(58-76) 131/70 mmHg (03/09 1315) Heart Rate: [70-86] 70 (03/09 1315) Resp: [18-24] 24 (03/09 1315) SpO2: [94 %-97 %] 95 % (03/09 1315) Patient Vitals for the past 24 hrs: BP Temp Temp src Pulse Resp SpO2 Weight 03/09/16 1315 131/70 mmHg - - 70 24 95 % - 03/09/16 1300 126/70 mmHg - - 73 24 96 % - 03/09/16 1245 126/69 mmHg - - 70 24 96 % - 03/09/16 1237 132/65 mmHg - - 70 24 97 % - 03/09/16 1215 121/58 mmHg 98.6 F (37 C) - 72 24 96 % - 03/09/16 1129 113/76 mmHg 98.8 F (37.1 C) Oral 80 18 - - 03/09/16 1027 128/60 mmHg - - - - - - 03/09/16 0900 108/66 mmHg 98.8 F (37.1 C) Oral 86 18 94 % - 03/09/16 0801 124/60 mmHg 97.4 F (36.3 C) Oral 80 20 97 % - 03/09/16 0359 132/65 mmHg 98.3 F (36.8 C) Oral - 18 97 % - 03/08/16 2331 120/61 mmHg 98.1 F (36.7 C) Oral 76 18 96 % - 03/08/16 1909 130/62 mmHg 98.5 F (36.9 C) Oral 70 20 97 % - 03/08/16 1530 124/60 mmHg 99 F (37.2 C) Oral 74 20 96 % - Intake/Output Summary (Last 24 hours) at 03/09/16 1326 Last data filed at 03/09/16 1300 Gross per 24 hour Intake 1105 ml Output 300 ml Net 805 ml General appearance: alert, appears stated age, cooperative and no distress Head: Normocephalic, without obvious abnormality, atraumatic Eyes: negative findings: lids and lashes normal and conjunctivae and sclerae normal Nose: no discharge Neck: no carotid bruit, no JVD, supple, symmetrical, trachea midline and thyroid not enlarg ed, symmetric, no tenderness/mass/nodules Lungs: clear to auscultation bilaterally and diminished breath sounds bilaterally Chest wall: no tenderness, Dialysis port righ chest. Heart: regular rate and rhythm, S1, S2 normal, no S3 or S4, systolic murmur: systolic eject ion 4/6, crescendo at 2nd right intercostal space and no click Abdomen: soft, non-tender; bowel sounds normal; no masses, no organomegaly Musculoskeletal: There is no redness, warmth, or swelling of the joints. Full range of mo tion noted. Motor strength is 5 out of 5 all extremities bilaterally. Tone is normal. Extremities: edema +1 LE bilateral. and Dialysis AV fistula right arm. Skin: Normal turgor, no rashes.. Neurologic: Grossly normal DATA CBC: Lab Results Component Value Date WBC 8.29 03/09/2016 RBC 3.02* 03/09/2016 HGB 8.4* 03/09/2016 HGB 9.9* 08/28/2015 HCT 26.1* 03/09/2016 MCV 86.2 03/09/2016 MCH 27.9 03/09/2016 MCHC 32.3 03/09/2016 RDW 44.2 03/09/2016 PLT 168 03/09/2016 MPV 10.0 03/09/2016 DIFFTYPE AUTOMATED 03/09/2016 CMP: Lab Results Component Value Date NA 140 03/09/2016 K 3.8 03/09/2016 CL 104 03/09/2016 CO2 26 03/09/2016 ANIONGAP 14 03/09/2016 GLUF 194* 03/09/2016 BUN 36* 03/09/2016 CREATININE 4.9* 03/09/2016 CREATININE 5.79* 11/22/2015 BCR 7 03/09/2016 CA 8.1* 03/09/2016 CA 9.7 09/11/2015 PROT 6.0* 03/09/2016 ALB 2.5* 03/09/2016 GLOB 3.5 03/09/2016 BILITOT 0.3 03/09/2016 ALP 42 03/09/2016 AST 15 03/09/2016 ALT 14 03/09/2016 EGFR 13* 03/09/2016 Last 3 Troponin: Lab Results Component Value Date TROPONINI 4.57* 03/03/2016 TROPONINI 4.36* 03/03/2016 TROPONINI 0.021 03/02/2016 CPK: Lab Results Component Value Date CKTOTAL 443* 03/03/2016 CKMB: Lab Results Component Value Date CKMB 18.2* 03/03/2016 PROBLEM LIST Principal Problem: NSTEMI (non-ST elevated myocardial infarction) ([facility]) Active Problems: Type 2 diabetes mellitus with diabetic nephropathy ([facility]) Obesity Anemia of chronic renal failure, stage 5 ([facility]) Moderate aortic stenosis Aortic stenosis Acute diastolic congestive heart failure ([facility]) ESRD (end stage renal disease) ([facility]) Difficulty in walking Debility, unspecified 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 (H CC) Paroxysmal atrial fibrillation ([facility]) HFrEF (heart failure with reduced ejection fraction) ([facility]) ADHF (acute decompensated heart failure) ([facility]) ASSESSMENT & PLAN Patient Active Hospital Problem List: NSTEMI (non-ST elevated myocardial infarction) ([facility]) (03/03/2016) 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 (HC) C) Paroxysmal atrial fibrillation ([facility]) (03/04/2016), currently sinus. Severe aortic stenosis Cardiomyopathy LVEF 30-35% ESRD (end stage renal disease) ([facility]) (03/04/2016) - Stable, chest pain free. - PCI rescheduled for tomorrow as patient had breakfast - Patient high risk for CABG and surgical AVR - Will need FFR mid LAD, likely PCI LAD and diagonal. FFR/PCI RCA - Discussed with patient procedure risks, benefits, alternatives. Risks including but not l imited to , stroke, infection, bleeding, injury to vessels or nerves, injury to coronar y vessels. He understand that he is at high risk for emergent surgery. He understood and agreed to proceed. - Continue ASA, carvedilol, atorvastatin Disposition: Code Status: Full Code Leyla Sweet MD 03/09/2016 Musa Roque MD - 03/09/2016 12:51 PM PDT . Progress Notes by Peter Christianson MD at 03/09/16 7822 Author: Peter Christianson MD Service: Nephrology Author Type: Physician Filed: 03/09/16 1309 Date of Service: 03/09/16 1251 Status: Signed Whitesmith: Peter Christianson MD (Physician) PCP : [facility] LOS: 6 days Brianna Vital is a 70 y.o. man followed for ESRD management in setting of curr ent hospitalization with decompensated HFREF I assumed nephrology care from Dr. Snell 03/09/2016. 03/04/2016 Xr Chest 1 (seen by myself) showed bilateral perihilar pulmonary edema. Cardiac cath with Dr. Dangelo showed moderate aortic stenosis. 2. Moderate 3-vessel coronary a rtery disease.3. Mild pulmonary hypertension. 4. Mild pulmonary artery stenosis. 5. Severe l eft ventricular diastolic dysfunction. 03/06/2016 Echo showed EF between 30 - 35 %; severe aortic stenosis; moderate pulmonary hype rtension. 03/09/2016 He is seen on HD with RN "David". He continues to have shortness of breath. He has No fever, chills, nausea, vomiting, diarrhea, chest pain, cough. He is nonoliguric. Plan is for cardiac cath with ? PCI and ? Transfer to [facility] for TAVR. ROS: As in History of Present Illness. 7 area ROS was done and was otherwise negative. Examination: Constitutional: Alert, awake, oriented lying flat in bed in no distress HEENT: Thick neck with JVD, non icteric sclera. Cardiovascular: S1 no friction rub. No S3. Systolic murmur at apex with radiation to the b ack and up to the carotids LUNGS:: Effort fair. Reduced AE at bases. Abdominal: Soft, No distension and no mass. No rebound tenderness and no guarding. Musculoskeletal: No gross deformity, EXT: No lower extremity edema . Neurological: Speech fluent. No asterixis. Moves all 4 extremities. Skin: Skin is warm and dry. No rashes, lacerations, erythema or jaundice. Psychiatric: Pleasant demeanor HD access: Right IJ CVC Right UE AVF (immature) The following portions of the patient's history were reviewed and updated as appropriate: l aboratory data, radiologic studies, allergies, current medications, and problem list. Past m edical, surgical, social, and family history was also reviewed. Past history summarized as a todd. Significant PMH: ESRD. He was started on HD by Dr. Espinosa 02/2016. Primary printed circuit layout taper is Dr. Ly. He i s s/p right UE AVF placement by Dr. Dias 02/2016 Severe Family/social history: Vital Signs: BP 113/76 mmHg | Pulse 80 | Temp(Src) 98.8 F (37.1 C) (Oral) | Resp 18 | Ht 1.753 m (5' 9") | Wt 101.2 kg (223 lb 1.7 oz) | BMI 32.93 kg/m2 | SpO2 94% Lab Results Component Value Date BUN 36* 03/09/2016 CREATININE 4.9* 03/09/2016 EGFR 13* 03/09/2016 NA 140 03/09/2016 K 3.8 03/09/2016 CL 104 03/09/2016 CO2 26 03/09/2016 CA 8.1* 03/09/2016 PHOS 6.5* 03/04/2016 MG 2.4 03/04/2016 ALB 2.5* 03/09/2016 HGB 8.4* 03/09/2016 Problem list: ESRD Severe HFREF CAD with NSTEMI Severe anemia Secondary hyperparathyroidism with hyperphosphatemia Assessment and Recommendations: Brianna Vital is a 70 y.o. man with nonoliguric ESRD as per PMH He is hemodynamically stable and is going to have cardiac cath with plan for ? PCI with Dr. Sweet and plan for elective TAVR at [facility]. HFREF is minimally decompensated., Plan for HD today and again MWF using right IJ CVC. UF as tolerated today Continue LANE with target Hb of 10 to 11. Continue current medications. Anticipate AVF maturation and use in 8 to 12 weeks. Diet: 1 gm/kg protein, 1 gm PO4, restricted diet. Dose all meds for an eGFR of less than 15 ml/min/1.73 m2. No use of NSAIDs (including DUKE 2 inhibitors). No use of Magnesium or aluminum containing antacids. No use of Magnesium or phosphorus containing laxatives No Fluid restriction. Strict I/O. Daily weights. Keep in positive balance. PETER CHRISTIANSON MD 03/09/2016 Discussed with the primary team, Dr. Chanel He was seen earlier in the day and charting completed later after rounds. Dictation software, Screen Tonic, was used which may contain error for similar sounding words latesha altamirano after review. Personal communication requested for any clarification. Prognosis is guarded in view of multiple comorbid illnesses and ESRD and severe . amLODIPine 5 mg Oral Daily aspirin 81 mg Oral Daily with breakfast atorvastatin 80 mg Oral Nightly carvedilol 6.25 mg Oral BID WC cholecalciferol 1,000 Units Oral QPM diphenhydrAMINE 50 mg Oral Once famotidine 20 mg Oral Once heparin (porcine) 1,000 Units Intracatheter Once per day on Fri heparin (porcine) 500 Units Intracatheter Once per day on Fri heparin (porcine) Intracatheter Daily hydrALAZINE 10 mg Oral TID insulin glargine 60 Units Subcutaneous QAM insulin lispro (human) 0-3 Units Subcutaneous Nightly insulin lispro (human) 0-6 Units Subcutaneous TID AC lidocaine 40 mL Intradermal Once lidocaine-EPINEPHrine 1 mL Infiltration Once pantoprazole 40 mg Intravenous BID sevelamer 1,600 mg Oral TID WC sitagliptan 25 mg Oral Daily terazosin 10 mg Oral Nightly Ruben Clark MD - 03/09/2016 7:20 AM PDT Progress Notes by Ruben Chanel MD at 03/09/16719 Author: Ruben Chanel MD Service: Hospitalist Author Type: Physician Filed: 03/09/16728 Date of Service: 03/09/16719 Status: Addendum Whitesmith: Ruben Chanel MD (Physician) Related Notes: Original Note by Ruben Chanel MD (Physician) filed at 03/09/16723 [facility] Service: Hospitalist Progress Note Brianna Vital 70 y.o. [id number] male [facility] Hospital Day: LOS: 6 days SUBJECTIVE Patient Summary: Signed out note:" Patient is a 70 year old male with with past medical history of CKD Stage 5, S/P Fistula Fo rmation on 03/01/[address] Dias, CHF, Diastolic Dysfunction, HTN, HLD and DM Type 2 who was admitted due to increasing dyspnea and decreased urinary out put. Labs showed elevated at 1 .8, consistent with an acute NSTEMI while EKG showed only mild anterolateral ST abnormalitie s and frequent unifocal PVCs. CMP revealed elevated Creatinine of 8 and GFR of 7. Cardiology and Nephrology services were consulted, started on oxygen and IV Lasix with minimal improve ment. His CXR showed evidence of bilateral pulmonary edema. S/P Cardiac catheterization by Maycol Dangelo t found to have moderate three vessel disease and severe aortic stenosis. Hemodialysis catheter placed on the , patient subsequently has undergone daily hemodia lysis , with improved respiratory failure , off BiPAP presently on [address] surgery consulted and Dr. Pantoja is following, patient deemed high risk surgical candid ate, intra-disciplinary meeting scheduled for this Friday. Events Overnight: - Right IJ hemodialysis catheter placed on , patient underwent his first hemodialysis on , and has required daily hemodialysis, patient initially on BiPAP subsequently wean ed off, yesterday felt short of breath that required a short period of BiPAP during hemodial ysis, presently back on 3 L. Indicates shortness of breath has improved though still with ex ertional dyspnea.. Interdisciplinary meeting with cardiology/cardiothoracic, patient to be medically optimized , possible PCI today, will need further evaluation if aortic valve replacements TAVR - [facility] patient denies any chest pain, breathing improved no nausea no emesis no fever. Scheduled Medications amLODIPine 5 mg Oral Daily aspirin 81 mg Oral Daily with breakfast atorvastatin 80 mg Oral Nightly carvedilol 6.25 mg Oral BID cholecalciferol 1,000 Units Oral QPM diphenhydrAMINE 50 mg Oral Once famotidine 20 mg Oral Once heparin (porcine) 1,000 Units Intracatheter Once per day on Fri heparin (porcine) 500 Units Intracatheter Once per day on Fri heparin (porcine) Intracatheter Daily hydrALAZINE 10 mg Oral TID insulin glargine 60 Units Subcutaneous QAM insulin lispro (human) 0-3 Units Subcutaneous Nightly insulin lispro (human) 0-6 Units Subcutaneous TID AC lidocaine 40 mL Intradermal Once lidocaine-EPINEPHrine 1 mL Infiltration Once pantoprazole 40 mg Intravenous BID sevelamer 1,600 mg Oral TID WC sitagliptan 25 mg Oral Daily terazosin 10 mg Oral Nightly Continuous Infusions dextrose sodium chloride (IV) 50 mL/hr at 03/08/16 1043 PRN Medications acetaminophen OR acetaminophen, dextrose, dextrose, dextrose, glucagon, glucagon, hepar in (porcine) 5000 unit/0.5mL, heparin (porcine) 5000 unit/0.5mL, HYDROcodone-acetaminophen * *OR HYDROcodone-acetaminophen, nitroGLYCERIN, ondansetron OR ondansetron, polyethylene glycol Allergy: Allergies Allergen Reactions Penicillins Rash Reacted with a rash as a child. Has not had penicillins since. Gemfibrozil Nausea and Vomiting Questran [Cholestyramine] Nausea and Vomiting OBJECTIVE Vital Signs: BP 132/65 mmHg | Pulse 76 | Temp(Src) 98.3 F (36.8 C) (Oral) | Resp 18 | Ht 1.753 m (5' 9") | Wt 101.2 kg (223 lb 1.7 oz) | BMI 32.93 kg/m2 | SpO2 97% I&O Detailed Table: I/O last 3 completed shifts: In: 4480 [P.O.:900; I.V.:1180; Other:2400] Out: 4500 [Urine:600; Other:3900] Weight change: 5.2 kg (11 lb 7.4 oz) Hemodynamics Last 24hrs: Examination: Constitutional: Patient is alert and oriented. Appears frail but well-developed and not in acute distress at this time., On 3 L oxygen full speech, dyspneic with speech HEENT: Head: Nose: Mouth/Throat: Oropharynx is clear and moist. Eyes: Neck: Cardiovascular: RRR, + Loud Systolic Murmur Pulmonary/Chest: Crackles lower lung matthews Abdominal: Soft, BS present, no distension, Musculoskeletal: Moves all limbs, No joint tenderness. Trace pedal edema. Neurological: No focal neurologic deficits. Skin: Skin is warm and dry. No rash noted. No erythema. No pallor. Psychiatric: No psychosis, Dysphoric affect, normal mood. Judgment is fair. LABS: Recent Results (from the past 24 hour(s)) POCT glucose Collection Time: 03/08/16 11:16 AM Result Value Ref Range GLUCOSE,POC SCREEN 128 (H) 65 - 99 mg/dL POCT glucose Collection Time: 03/08/16 4:15 PM Result Value Ref Range GLUCOSE,POC SCREEN 116 (H) 65 - 99 mg/dL POCT glucose Collection Time: 03/08/16 8:31 PM Result Value Ref Range GLUCOSE,POC SCREEN 119 (H) 65 - 99 mg/dL POCT glucose Collection Time: 03/09/16 5:53 AM Result Value Ref Range GLUCOSE,POC SCREEN 84 65 - 99 mg/dL PROBLEM LIST Principal Problem: NSTEMI (non-ST elevated myocardial infarction) ([facility]LY [facility]) Active Problems: Type 2 diabetes mellitus with diabetic nephropathy ([facility]) Essential hypertension, benign Obesity Anemia of chronic renal failure, stage 5 ([facility]) Aortic stenosis Acute diastolic congestive heart failure ([facility]) ESRD (end stage renal disease) ([facility]) Difficulty in walking Debility, unspecified 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 (H CC) Paroxysmal atrial fibrillation ([facility]) ASSESSMENT & PLAN Acute Coronary Syndrome / NSTEMI: S/P Cardiac catheterization by Dr. Dangelo found to have mo derate three vessel disease and severe aortic stenosis. CT surgery consulted and Dr. Marquita cohen following, patient deemed high risk for surgery - PCI for today, as per cardiology note - Cardiology consulted - Presently stable Acute on Chronic systolic and diastolic CHF Dysfunction: - Echocardiogram EF 30-35 percent, severe aortic stenosis, moderate pulmonary hypertension - Off BiPAP, back on 3 L Severe Aortic Stenosis: Chronic and worsening, this is contributing to his current symptom s of shortness of breath and volume overloaded state. - Being evaluated for aortic valve replacement, interdisciplinary meeting done on Friday, o ptimizing medical management, being evaluated for possible TAVR Chronic Kidney Disease, Stage V / ESRD: - Right IJ hemodialysis , also started with clinically improve - Again renal diet, fluid restriction 1000 mL/24hrs - Undergoing daily HD - Scheduling outpatient HD Diabetes Mellitus, Type 2: Blood sugars seems to be stable, will continue with Lantus with caution and give additional Humalog per SSI. Hypertension: BP seems to be stable at this time, will continue Coreg, Amlodipine and Hydra lazine as scheduled and monitor hemodynamics. Anemia of Chronic CKD: H&H is low at 8.6, no active bleeding at this time. Will continue to monitor CBC and transfuse as needed. Difficulty in Walking / Debility: Multifactorial, due to deconditioning and CHF exacerbati on, will involve PT services when stable and monitor. DVT prophylaxis with SCD's and Heparin. Discharge plans when stable and improved. His condition is guarded due to severe aortic johnna nosis, CHF exacerbation and ESRD. Ruben Chanel MD 03/09/2016 onversion Transact ion, Provider Unknown - 03/08/2016 3:17 PM PDTFormatting of this note might be different fr om the original. Progress Notes by María Galindo at 03/08/161516 Author: María Galindo Service: (none) Author Type: Coordinator Filed: 03/08/16 1519 Date of Service: 03/08/161516 Status: Signed Whitesmith: María Galindo (Coordinator) UPDATED DIALYSIS SCHEDULE Friday @ 1:45pm-please have patient arrive at 1:30pm on FIRST DAY ONLY for new patient paperwork. [facility] [id number] [place] [address], [place] [address] Thank you. See Jordan MD - 03/08/2016 9:58 AM PDTFormatting of this note might be different from the o riginal. Progress Notes by See Dangelo MD at 03/08/1658 Author: See Dangelo MD Service: Cardiology Author Type: Physician Filed: 03/08/16 1030 Date of Service: 03/08/16957 Status: Signed Whitesmith: See Dangelo MD (Physician) [facility] Service: Cardiology Progress Note Hospital Day: LOS: 5 days Post-Op Day: * No surgery found * SUBJECTIVE Patient Summary: 70M followed by Aki Germain D.O., at our [facility] for sev ere aortic stenosis, and Sweta Ly MD for stage IV chronic kidney disease. Because of wo rsening renal function, he had a right brachiocephalic AV fistula created by Dr. Dias on 03/01. After being discharged following that procedure, he was home for a short time, and note d that he had decreased appetite, and felt "bloated". 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 There is no orthopnea or PND. There was no chest pain, pressure or discomfort, no palpitations. He came to the em ergency room. Supplemental oxygen helped the dyspnea. He was given IV Lasix, but has urinate d only a scant amount. He is currently relatively asymptomatic. His chest x-ray showed evid ence of bilateral pulmonary edema. His troponin was elevated at 1.8, consistent with an acut e NSTEMI. His EKG shows only mild anterolateral ST abnormalities, and frequent unifocal PVCs , which were not present on an EKG 2 days ago. He has been hemodynamically stable. Cardi ac catheterization revealed only moderate aortic stenosis by cath criteria, with a repeat ec hocardiogram pending. He also has moderate 3-vessel CAD. He will be seen by Jesús Pantoja MD, for consideration of AVR and coronary bypass. He had a tunneled right internal jugular d ialysis catheter placed and is now undergoing his 4th HD session. He had AFib with intial H D, spontaneously converted to NSR. Events Overnight: No complaints. He denies chest pain, SOB. He is currently on BiPAP , undergoing HD (1.5L to be removed today). Past Medical History Diagnosis Date Hypertension Hyperlipidemia Diabetes mellitus, type 2 ([facility]) 2005 Insulin-requiring, with diabetic Nephropathy, Retinopathy Sleep apnea dx light apnea Chronic kidney disease Stage IV-V Anemia of chronic renal failure 01/24/2012 Acute upper GI bleed 01/18/2014 PUD on EGD, ulcer cauterized Stroke ([facility]) 2010 right surface stroke, residual left hand numbness/tingling Acute diastolic congestive heart failure ([facility]) 03/03/2016 Aortic valve stenosis, severe Vitamin D deficiency Skin cancer NSTEMI (non-ST elevated myocardial infarction) ([facility]) 03/03/2016 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 Esophagogastroduodenoscopy N/A 01/18/2014 Procedure: ESOPHAGOGASTRODUODENOSCOPY; Surgeon: Caitlyn Khan MD; Location: [facility]; Service: Gastroenterology; Laterality: N/A; Av fistula placement Right 03/01/2016 Procedure: AV FISTULA; Surgeon: Vivek Dias MD; Location: [facility]; Service: Vascul ar; Laterality: Right; brachiocephalic fistula creation Skin cancer excision mid forehead Allergies Allergen Reactions Penicillins Rash Reacted with a rash as a child. Has not had penicillins since. Gemfibrozil Nausea and Vomiting Questran [Cholestyramine] Nausea and Vomiting Scheduled Medications amLODIPine 5 mg Oral Daily aspirin 81 mg Oral Daily with breakfast atorvastatin 80 mg Oral Nightly carvedilol 6.25 mg Oral BID cholecalciferol 1,000 Units Oral QPM diphenhydrAMINE 50 mg Oral Once famotidine 20 mg Oral Once heparin (porcine) 1,000 Units Intracatheter Once per day on Fri heparin (porcine) 500 Units Intracatheter Once per day on Fri heparin (porcine) Intracatheter Daily hydrALAZINE 10 mg Oral TID insulin glargine 60 Units Subcutaneous QAM insulin lispro (human) 0-3 Units Subcutaneous Nightly insulin lispro (human) 0-6 Units Subcutaneous TID AC lidocaine 40 mL Intradermal Once lidocaine-EPINEPHrine 1 mL Infiltration Once pantoprazole 40 mg Intravenous BID sevelamer 1,600 mg Oral TID WC sitagliptan 25 mg Oral Daily terazosin 10 mg Oral Nightly Continuous Infusions dextrose sodium chloride (IV) 50 mL/hr at 03/06/16 1836 PRN Medications acetaminophen OR acetaminophen, dextrose, dextrose, dextrose, glucagon, glucagon, hepar in (porcine) 5000 unit/0.5mL, heparin (porcine) 5000 unit/0.5mL, HYDROcodone-acetaminophen * *OR HYDROcodone-acetaminophen, nitroGLYCERIN, ondansetron OR ondansetron, polyethylene glycol OBJECTIVE Vital Signs: BP 129/68 mmHg | Pulse 76 | Temp(Src) 99.1 F (37.3 C) (Oral) | Resp 24 | Ht 1.753 m (5' 9") | Wt 102.5 kg (225 lb 15.5 oz) | BMI 33.35 kg/m2 | SpO2 99% Temp: [97.1 F (36.2 C)-99.1 F (37.3 C)] 99.1 F (37.3 C) (03/08 0645) BP: (117-138)/(58-91) 129/68 mmHg (03/08 1015) Heart Rate: [74-95] 76 (03/08 1015) Resp: [17-30] 24 (03/08 1015) SpO2: [93 %-99 %] 99 % (03/08 1015) Weight: [97.3 kg (214 lb 8.1 oz)-102.5 kg (225 lb 15.5 oz)] 102.5 kg (225 lb 15.5 oz) ( 0711) TELEMETRY: NSR I/O: 3102 / 500, net -799 since admission GENERAL: Morbidly obese, well developed, well nourished elderly male, in no dis tress. Appears older than his stated age. On BiPAP. HEENT: Normocephalic, atraumatic. EYES: Well healed iridectomies. PERRL, sclerae anicteric, no xanthelsasmas MOUTH: Oral mucosae moist, dentition adequate, no lesions noted NECK: Tunneled RIJV HD catheter. No JVD, lymphadenopathy, thyromegaly, bruits. Car otid pulses are 1+ bilaterally and delayed LUNGS: Diffusely decreased breath sounds anteriorly and laterally, with no rales, rhonchi , minimal diffuse expiratory wheezing noted, respirations unlabored HEART: Nondisplaced PMI, regular rate and rhythm, S1 normal, S2 diminished but audible. 2-3/6 late peaking systolic crescendo decrescendo murmur at the base, radiating to the left sternal border. No rubs or gallops noted. ABDOMEN: Obese. Soft, nontender, no organomegaly, masses or bruits. Bowel sounds are no rmal in all 4 quadrants. The abdominal aortic pulsation is not palpable. EXTREMITIES: 1+ ankle edema bilaterally. Radial pulses 2+ on the left, nonpalpable on the right, where a brachiocephalic AV fistula surgical site is bandaged, but has a palpable thr ill. Femoral pulses are 2+ bilaterally without bruits. DP and PT pulses are 1+ bilateral ly. SKIN: Warm and dry, capillary refill is normal, no lesions. NEUROLOGIC: Awake, alert and oriented x 3. No focal motor deficits. PSYCHIATRIC: Appropriate, affect appears normal DATA ECHO (03/05/16): 1. This was a technically difficult study with suboptimal views. 2. Overall left ventricular systolic function is moderate-severely impaired with, an EF bet ween 30 - 35 %. 3. The right ventricle is mildly enlarged, but right ventricular systolic function is meseret l. 4. The left atrium is markedly dilated. 5. There is severe aortic stenosis present. 6. There is moderate pulmonary hypertension. The right ventricular systolic pressure (pul monary artery systolic pressure), as measured by Doppler, is 55 mm Hg. CBC: Lab Results Component Value Date WBC 8.80 03/08/2016 RBC 2.87* 03/08/2016 HGB 8.0* 03/08/2016 HGB 9.9* 08/28/2015 HCT 24.7* 03/08/2016 MCV 86.2 03/08/2016 MCH 27.8 03/08/2016 MCHC 32.3 03/08/2016 RDW 44.6 03/08/2016 PLT 150 03/08/2016 MPV 10.2 03/08/2016 DIFFTYPE AUTOMATED 03/08/2016 CMP: Lab Results Component Value Date NA 141 03/08/2016 K 3.6 03/08/2016 CL 105 03/08/2016 CO2 25 03/08/2016 ANIONGAP 15 03/08/2016 GLUF 155* 03/08/2016 BUN 43* 03/08/2016 CREATININE 5.8* 03/08/2016 CREATININE 5.79* 11/22/2015 BCR 7 03/08/2016 CA 8.1* 03/08/2016 CA 9.7 09/11/2015 PROT 5.5* 03/08/2016 ALB 2.3* 03/08/2016 GLOB 3.2 03/08/2016 BILITOT 0.3 03/08/2016 ALP 38 03/08/2016 AST 15 03/08/2016 ALT 10 03/08/2016 EGFR 10* 03/08/2016 LIPID PANEL: TC-113, LDL-42, HDL-41, TG-149 PROBLEM LIST Principal Problem: NSTEMI (non-ST elevated myocardial infarction) ([facility]) Active Problems: Type 2 diabetes mellitus with diabetic nephropathy ([facility]) Essential hypertension, benign Obesity Anemia of chronic renal failure, stage 5 ([facility]) Aortic stenosis Acute diastolic congestive heart failure (HCC) ESRD (end stage renal disease) ([facility]) Difficulty in walking Debility, unspecified 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 Acute NSTEMI, Killip class II, hemodynamically stable. Cardiac catheterization revealed moderate 3-vessel CAD, with the worst lesion in the 1st diagonal branch, the LAD lesion is p robably significant as well. He has been started on aspirin, Coreg and losartan. CABG/AVR s urgery would be high risk, as noted below. Following discussion with Jesús Pantoja MD and Roma Camejo MD, it is felt that the safest course of action would be to undergo percutaneou s coronary intervention of the diagonal, as well as the other lesions, if FFR measurements s how that they are hemodynamically significant. There is significant calcification, so consid eration of Rotablator may be appropriate. Diagnostic Cardiac Catheterization via femoral or radial artery approach: the procedure, with its associated alternatives, benefits, and ris ks, the latter including but not limited to possible need for more than one vascular access site, , [place], CVA, bleeding (including the need for blood transfusion), vascular damage ( including the need for emergent surgical repair, including PCI/stent placement or CABG), edgar al failure (including the possible need for short or long-term use of hemodialysis), allergi c reactions/anaphylaxis, and the risks of moderate anesthesia/sedation, were discussed in de tail. No guarantees were given. All questions were answered. The patient verbalized under standing and gave informed consent for the procedure. 2. Severe aortic stenosis by echocardiography last month, confirmed on a repeat study, with ZEKE 0.97 cm sq, peak transvalvular velocity measured at 4.1 m/s, an indicator of severe . The was calculated as only moderate by cardiac catheterization criteria, but this is be cause cardiac output was calculated so high (9.3 L/min., likely due to the arteriovenous fis essence). In this case, echocardiographic (VTI) assessment is a more accurate measurement (pea k/mean gradients 57/39 mm Hg by echo, 40/32 mm Hg on cath). He is high risk for standard aortic valve replacement surgery: STS Surgical Risk score for AVR + CABG: -- Mortality-10.88% -- Morbidity or mortality-46.1% -- Long length of stay-29.76% -- Stroke-4.75% -- Prolonged ventilation-34% -- Sternotomy infection-2.36% -- Need for reoperation-14.4% These numbers suggest he may be a better candidate for PCI/TAVR. Coronary lesions may requ ariana FFR for better evaluation. Given this, he is probably a better candidate for TAVR. 3. Dilated Cardiomyopathy, EF 30-35% on echo, likely mixed ischemic and non-ischemic etiolo gy 4. Stage V chronic kidney disease, right upper extremity brachiocephalic AV fistula created 03/01/16, but it will be sometime before this can be used. He will have a RIJV dialysis acce ss today, and hemodialysis will to be started on this admission. 5. 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 Essential hypertension, controlled 8. Moderate Pulmonary HTN, likely secondary to # 2, 3, 8 7. History of a right CVA, with minimal residual left arm numbness and tingling, but no oth er residual deficits. 8. Mild obstructive sleep apnea, untreated 9. Moderately severe anemia, due to chronic kidney disease. 10. Paroxysmal Atrial Fibrillation with his initial HD session, maintaining NSR since then. 11. Hyperlipidemia, with metabolic syndrome, well controlled Disposition: Continue hemodialysis. Leyla Sweet M.D., will perform PCI of the diagon al branch, and FFR of the other coronary lesions, with percutaneous coronary intervention in these, if indicated by the results, tomorrow. Following this, he can be referred electively to a tertiary center for TAVR. Code Status: Full Code See Dangelo MD 03/08/2016 rif, Ivan Machado MD - 03/08/2016 9:32 AM PDT Progress Notes by Ivan Snell MD at 03/08/16 0932 Author: Ivan Snell MD Service: Nephrology Author Type: Physician Filed: 03/08/16 1529 Date of Service: 03/08/16931 Status: Signed Whitesmith: Ivan Snell MD (Physician) [facility] Service: NEPHROLOGY DIALYSIS/ Progress Note Brianna Vital 70 y.o. [id number] male [facility] Hospital Day: LOS: 5 days Patient with PMH HTN, DM-2, HLD admitted with SOB/ NSTEMI S/P CATH MODERATE 3V D/ SEVERE A S Nephrology consulted for evaluation and management of ESRD CHRONIC SEVERE ASSOCIATED WITH FLUID ELECTROLYTE IMBALANCES Assess need for uf/ hd SUBJECTIVE Seen and examined on hd tolerating hd/ uf well Access functioning well HD FLOW SHEET REVIEWED ROS: CANT REVIEW ON BIPAP Past Medical History Diagnosis Date Hypertension Hyperlipidemia Diabetes mellitus, type 2 (HCC) 2005 Insulin-requiring, with diabetic Nephropathy, Retinopathy Sleep apnea dx light apnea Chronic kidney disease Stage IV-V Anemia of chronic renal failure 01/24/2012 Acute upper GI bleed 01/18/2014 PUD on EGD, ulcer cauterized Stroke ([facility]) 2010 right surface stroke, residual left hand numbness/tingling Acute diastolic congestive heart failure ([facility]) 03/03/2016 Aortic valve stenosis, severe Vitamin D deficiency Skin cancer NSTEMI (non-ST elevated myocardial infarction) ([facility]) 03/03/2016 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 Esophagogastroduodenoscopy N/A 01/18/2014 Procedure: ESOPHAGOGASTRODUODENOSCOPY; Surgeon: Caitlyn Khan MD; Location: [facility]; Service: Gastroenterology; Laterality: N/A; Av fistula placement Right 03/01/2016 Procedure: AV FISTULA; Surgeon: Vivek Dias MD; Location: [facility]; Service: Vascul ar; Laterality: Right; brachiocephalic fistula creation Skin cancer excision mid forehead Family History Problem Relation Age of Onset Cancer Mother unknown type Heart disease Father 68 [place] Malig hypertherm Neg Hx Kidney failure Brother had renal transplant Social History Social History Marital Status: Spouse Name: N/A Number of Children: 2 Years of Education: N/A 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 Scheduled Medications amLODIPine 5 mg Oral Daily aspirin 81 mg Oral Daily with breakfast atorvastatin 80 mg Oral Nightly carvedilol 6.25 mg Oral BID WC cholecalciferol 1,000 Units Oral QPM diphenhydrAMINE 50 mg Oral Once epoetin lakeisha 10,000 Units Intravenous Once in dialysis famotidine 20 mg Oral Once heparin (porcine) 1,000 Units Intracatheter Once per day on Fri heparin (porcine) 500 Units Intracatheter Once per day on Fri heparin (porcine) Intracatheter Daily hydrALAZINE 10 mg Oral TID insulin glargine 60 Units Subcutaneous QAM insulin lispro (human) 0-3 Units Subcutaneous Nightly insulin lispro (human) 0-6 Units Subcutaneous TID AC lidocaine 40 mL Intradermal Once lidocaine-EPINEPHrine 1 mL Infiltration Once pantoprazole 40 mg Intravenous BID sevelamer 1,600 mg Oral TID WC sitagliptan 25 mg Oral Daily terazosin 10 mg Oral Nightly Continuous Infusions dextrose sodium chloride (IV) 50 mL/hr at 03/06/16 1836 PRN Medications acetaminophen OR acetaminophen, dextrose, dextrose, dextrose, glucagon, glucagon, hepar in (porcine) 5000 unit/0.5mL, heparin (porcine) 5000 unit/0.5mL, HYDROcodone-acetaminophen * *OR HYDROcodone-acetaminophen, nitroGLYCERIN, ondansetron OR ondansetron, polyethylene glycol Allergy: Allergies Allergen Reactions Penicillins Rash Reacted with a rash as a child. Has not had penicillins since. Gemfibrozil Nausea and Vomiting Questran [Cholestyramine] Nausea and Vomiting OBJECTIVE Vital Signs: BP 134/74 mmHg | Pulse 76 | Temp(Src) 99.1 F (37.3 C) (Oral) | Resp 24 | Ht 1.753 m (5' 9") | Wt 102.5 kg (225 lb 15.5 oz) | BMI 33.35 kg/m2 | SpO2 98% I&O Detailed Table: I/O last 3 completed shifts: In: 3352 [P.O.:1490; I.V.:1862] Out: 925 [Urine:925] Weight change: -2.8 kg (-6 lb 2.8 oz) Examination: SEEN ON HD WITH HD RN APPEARANCE: The patient is lying in mild distress on BIPAP. VITALS: Reviewed as listed. HEAD: NC/AT. EYES: Non-icteric sclera. +ve pale conjuctiva ENT: Buccal mucosa is moist. No gross ear or nasal problems noted. NECK: Supple. No raised JVD LUNGS: Coarse bs on auscultation bilaterally, on BIPAP. HEART: S1, S2, no pericardial rub noted. ABDOMEN: Full, soft, no tenderness. Bowel sounds are present. EXTREMITIES: no pedal edema noted. SKIN: Warm to touch. No rash noted. NEUROLOGIC: No gross focal motor deficit noted, no Asterixis. PSYCH: The patient is alert and oriented x 3, mood and affect looks ok BACK: no CVA tenderness noted R IJ TUNNELED CATHETER functioning well LABS: Recent Results (from the past 24 hour(s)) POCT glucose Collection Time: 03/07/16 11:13 AM Result Value Ref Range GLUCOSE,POC SCREEN 263 (H) 65 - 99 mg/dL POCT glucose Collection Time: 03/07/16 4:20 PM Result Value Ref Range GLUCOSE,POC SCREEN 198 (H) 65 - 99 mg/dL POCT glucose Collection Time: 03/07/16 9:32 PM Result Value Ref Range GLUCOSE,POC SCREEN 168 (H) 65 - 99 mg/dL Vitamin D 25 hydroxy Collection Time: 03/08/16 3:25 AM Result Value Ref Range VITAMIN D,25 HYDROXY 48 30 - 150 ng/mL Iron and TIBC Collection Time: 03/08/16 3:25 AM Result Value Ref Range IRON 13 (L) 45 - 190 ug/dL TIBC 150 (L) 250 - 450 ug/dL IRON % SAT 9 (L) 20 - 50 % Ferritin Collection Time: 03/08/16 3:25 AM Result Value Ref Range FERRITIN 337 11 - 450 ng/mL POCT glucose Collection Time: 03/08/16 5:50 AM Result Value Ref Range GLUCOSE,POC SCREEN 149 (H) 65 - 99 mg/dL Comprehensive metabolic panel Collection Time: 03/08/16 7:07 AM Result Value Ref Range SODIUM 141 135 - 145 mmol/L POTASSIUM 3.6 3.5 - 4.9 mmol/L CHLORIDE 105 99 - 109 mmol/L CO2 25 23 - 32 mmol/L ANION GAP AGAP 15 5 - 20 mmol/L GLUCOSE 155 (H) 65 - 99 mg/dL BUN 43 (H) 8 - 25 mg/dL CREATININE 5.8 (H) 0.70 - 1.30 mg/dL BUN/CREAT 7 CALCIUM 8.1 (L) 8.5 - 10.5 mg/dL TOTAL PROTEIN 5.5 (L) 6.3 - 8.2 g/dL Albumin 2.3 (L) 3.3 - 4.8 g/dL GLOBULIN 3.2 1.3 - 4.9 g/dL A/G 0.7 (L) 1.0 - 2.4 TBIL 0.3 0.1 - 1.5 mg/dL ALK PHOS 38 35 - 115 U/L AST 15 10 - 45 U/L ALT 10 10 - 65 U/L EGFR 10 (L) >60 mL/min/1.73m2 CBC w/auto diff (reflex to manual) Collection Time: 03/08/16 7:07 AM Result Value Ref Range WBC 8.80 3.80 - 11.00 K/uL RBC 2.87 (L) 4.20 - 5.70 M/uL HGB 8.0 (L) 13.2 - 17.0 g/dL HCT 24.7 (L) 39.0 - 50.0 % MCV 86.2 80.0 - 100.0 fl MCH 27.8 27.0 - 34.0 pg MCHC 32.3 32.0 - 35.5 g/dL RDW SD 44.6 37 - 53 fl PLT 150 150 - 400 K/uL MPV 10.2 fl DIFF TYPE AUTOMATED NEUTROPHILS 77.47 % LYMPHOCYTES 9.55 % MONOCYTES 9.33 % EOSINOPHILS 2.70 % BASOPHILS 0.95 % NEUTROPHILS ABS 6.82 1.90 - 7.40 K/uL LYMPHOCYTES ABS 0.84 (L) 1.00 - 3.90 K/uL MONOCYTES ABS 0.82 (H) 0.00 - 0.80 K/uL EOSINOPHILS ABS 0.24 0.00 - 0.50 K/uL BASOPHILS ABS 0.08 0.00 - 0.10 K/uL Imaging Ir Dialysis Tunneled Cath Insert 03/04/2016 DATE OF PROCEDURE: 03/04/2016 SURGEON: Efrain Navarro MD SALES PROMOTION MANAGER: None PREOPERA TIVE DIAGNOSIS: 1. End stage renal disease requiring hemodialysis POSTOPERATIVE DIAGNOSIS: Same PROCEDURES: 1.Percutaneous access of right internal jugular vein under ultrasound guid ance and placement of tunneled hemodialysis catheter ANESTHESIA: Local anesthesia and cons cious sedation (1mg Versed, 75mcg Fentanyl) RADIATION DOSE: 10mGy FLUOROSCOPY TIME: 0.5 mi nute SPECIMEN: None ESTIMATED BLOOD LOSS: Less Than 10 ml (Minimal) BLOOD ADMINISTERED: N one COMPLICATIONS: None CONDITION: Stable INDICATIONS: This is a 70 y.o. male patient wi th end stage renal disease requiring hemodialysis.The patient has been evaluated by his neph rologist who determined that he is a suitable candidate to undergo hemodialysis. The patient understands the benefit and purpose of the planned procedure of tunneled hemodialysis sonu ter insertion is to allow the patient to receive hemodialysis while waiting for a exterminator termite hemodialysis access such as arteriovenous venous fistula or graft to be created. The patient also understands the risks and complications of this procedure which include bleeding, vess el perforation, infection, deep vein thrombosis, catheter malfunction, nerve or arterial inj ury, and pneumothorax. The patient has accepted these benefits and risks and agreed to under go the planned procedure. PROCEDURE IN DETAIL: The patient was taken to the operating room and placed on the table in the supine position. The patient's right neck and chest region w as prepped sterilely and then draped in a standard fashion. The patient was given local and conscious sedation anesthesia. Appropriate time out was performed whereby the patient and si te of surgery were identified. Percutaneous access of the right internal jugular vein was ob tained under ultrasound guidance. A 0.035' guidewire was placed in the right internal jugul ar vein and confirmed under fluoroscopy guidance. The skin tract was dilated with serial dil ators. A peel away sheath was inserted over the guidewire. A hemodialysis catheter was tunne led under the skin from the chest to the neck. Next the guidewire and inner dilator of the p eel away sheath was removed. The tunneled hemodialysis catheter was placed into the internal jugular vein over a peel away sheath. The catheter tip was positioned in the superior vena cava and the position was confirmed with fluoroscopy. Heparinized saline solution was inject ed in the double lumen tunneled hemodialysis catheter and the catheter was securely anchored to the skin using 3-0 nylon sutures. Standard dressing was applied over the tunneled hemodi alysis catheter in the usual fashion. Hemostasis was achieved without complications. The pat ient tolerated the procedure well and suffered no complications. I was present throughout e entire procedure. Xr Chest 1 View 03/04/2016 BRIANNA VITAL XR CHEST 1 VIEW 03/04/2016 6:31 PM History: 70 years. Male. Progressive dyspnea. New dialysis catheter placement. Renal failure. Congestive heart fa ilure. Technique: AP portable upright technique was performed at 1825 hours. Comparison: Findings: There is increasing opacification at the LEFT lung base, now completely o bscuring the LEFT hemidiaphragm. Perihilar moderately dense bilateral pulmonary infiltrates are again noted, mildly progressive, suggesting progressive pulmonary edema. The RIGHT smitha g base is clear. No visible RIGHT pleural effusion. Mild cardiomegaly is unchanged. The p ulmonary vasculature is obscured. A RIGHT internal jugular dialysis catheter is visualized with its tip at the junction of the superior vena cava and RIGHT atrium. 03/04/2016 1. Moderate, mildly progressive bilateral perihilar pulmonary edema. 2. Incr easing opacity of the LEFT lung base suggesting pneumonia and/or atelectasis and/or small pl eural effusion. 3. Persistent mild cardiomegaly. 4. New central venous dialysis catheter, without complication. Xr Chest 1 View 03/03/2016 This is a non-reportable procedure without a radiologist report and is used fo r image storage only Cl Right And Left Heart Catheterization With Coronary Angio 03/04/2016 REFERRING PHYSICIANS Bret Oro MD INDICATIONS Acute non-STEMI, severe aorti c stenosis by recent echocardiography, stage 5 chronic kidney disease, being initiated on he modialysis within the next day or two. PROCEDURES 1. Right heart catheterization. 2. Left h eart catheterization. 3. Selective bilateral coronary angiographies. 4. Placement of a 6-Galindo nch Mynx device for hemostasis. DESCRIPTION OF PROCEDURE After informed consent was obtaine d, he was brought to the cardiac catheterization laboratory and prepped and draped in a ster ile fashion. He was given Versed 2 mg IV and fentanyl 50 mcg IV for moderate anesthesia/mckenna tion. The right femoral area was infiltrated with 20 mL of 2% Xylocaine for local anesthesia . Using modified Seldinger technique, an 8-Filipino introducer sheath was inserted into the r ight common femoral vein with a clean anterior entry. Via similar technique, a 6-Filipino intr oducer sheath was inserted into the right common femoral artery on the second attempt, as th e first attempt was unsuccessful due to probable entry into a side branch and the guidewire could not be advanced. Hemostasis was achieved with manual pressure between the 2 femoral ar eileen cannulation attempts. A 7.5-Filipino [place]-Nile catheter was then advanced through the katt ous sheath and under fluoroscopy, was advanced through the right heart chambers, with typica l waveforms seen and pressures measured. Cardiac output was determined by thermodilution dora hnique, as the patient required supplemental oxygen to breathe comfortably while lying flat, and Gera technique could not be performed accurately. The [place]-Nile catheter was then remov ed. With the use of a 0.035-inch J-tipped guidewire for catheter advancement under direct f luoroscopic visualization, first a 5-Filipino FL4, then a 6-Filipino FL35 catheter was advanced to the aortic root, and both were able engage the left main coronary artery successfully, bu t the left coronary system was underfilled. Via guidewire exchange, a 6-Filipino AL1 catheter was used to perform selective angiography of the [place] left coronary system in multiple vie ws in a standard fashion with better results, although the vessels were still slightly under filled. The same AL1 catheter was then used to perform selective angiography of the [place] r ight coronary system in multiple views in a standard fashion. The catheter was then withdraw n slightly, and a 265 cm Wholey wire was advanced across the aortic valve into the left vent ricle. The AL1 catheter was removed over the guidewire, and a 6-Filipino angled pigtail cathet er was advanced into the left ventricle. Following pressure measurements, the catheter was p ulled back across the aortic valve, with pressures measured, and then removed. A nonselectiv e angiogram through the right common femoral arterial introducer sheath revealed entry above the bifurcation of this vessel, with no evidence of bleeding and no significant vascular di sease at this level. The introducer sheath was therefore removed, and hemostasis was achieve d with application of a 6-Filipino Mynx closure device. The venous sheath was removed, and hem ostasis was achieved with manual pressure. There were no complications, and the patient tole rated the procedure well. ESTIMATED BLOOD LOSS 50 mL. CONTRAST 105 mL of Isovue. RESULTS HEMODYNAMICS 1. Right atrial pressure: Mean 8, A wave 12, V wave 10. 2. Right ventricular pr essure: 47/13. 3. Pulmonary artery pressure: 36/19, mean pressure 27 mmHg. 4. Pulmonary capi llary wedge pressure: Mean 23 mmHg, A wave 24, V wave 34. 5. Left ventricular systolic pres sure: 145/37. 6. On pullback, central aortic pressure: 105/59, mean 78 mmHg. 7. The body eliu face area calculated to 2.225 m?. 8. By femoral dilution technique, cardiac output: 9.33 L/m in. 9. Cardiac index: 4.19 L/min/m?. 10. The aortic valve area is calculated at 1.5 cm?. wit h a 40 mm [id number]-lj-lzwn gradient and 32 mm mean gradient. 11. The aortic valve area index was calculated at 0.67 cm?/m?. However, on echocardiography, the aortic valve area was calculat ed at 0.9 cm?. CORONARY ARTERIES 1. Left main: This is a large vessel arising from the left coronary cusp. It is mildly calcified but otherwise normal and trifurcates at its distal en d. 2. Left anterior descending: This is a large, type 2 vessel which reaches the apex. The p roximal segment is free of disease. The midsegment contains a long 60% area of diffuse disea se between the first and second diagonal branches. The remainder of the LAD is free of disea se and appears suitable to receive a bypass conduit. The large first septal [facility]ology consultants branc h has a 60% concentric ostial stenosis. The other septal [facility] branches are somewhat sm aller but normal. The large first diagonal branch contains an 80% proximal stenosis. The sec ond and third diagonal branches are quite small. 3. Ramus intermedius: This is a medium-size vessel, with a 50% concentric ostial stenosis. The remainder of the vessel is free of disea se. 4. Left circumflex: This is a medium-size, nondominant vessel supplying a single obtuse marginal branch. The midsegment, before the obtuse marginal branch, contains a concentric 40 % to 50% stenosis. 5. Right coronary artery: This is a large dominant vessel arising from th e right coronary cusp. The proximal segment is free of disease. The early midsegment contain s a 50% eccentric stenosis, followed by a 70% concentric stenosis just before the origin of the single large right ventricular branch. From this, there is an area of diffuse disease in the midsegment that is judged to be 50% in luminal diameter reduction. The distal RCA is fr ee of disease. It gives rise to a relatively small posterior descending artery, which is nor mal, and a relatively small posterolateral ventricular branch, which is normal. 6. Due to th e elevated left ventricular end-diastolic pressure, a left ventricular cineangiogram was not performed. CONCLUSIONS 1. Via catheterization, there is only moderate aortic stenosis. How ever, there was severe aortic stenosis on his recent echocardiogram, and this will be repeat ed. 2. Moderate 3-vessel coronary artery disease. 3. Mild pulmonary hypertension. 4. Mild pu lmonary artery stenosis. 5. Severe left ventricular diastolic dysfunction. RECOMMENDATIONS He is to be started on hemodialysis today or tomorrow. A repeat echocardiogram will be done. I have asked Jesús Pantoja MD, from cardiothoracic surgery to see him regarding possible aortic valve replacement and coronary artery bypass surgery. Read by SEE DANGELO MD 10:40 A Echo Cardiac Adult Complete 03/06/2016 Patient Name: BRIANNA VITAL Date of : 1945 23 Performing Physician: SEE DANGELO MD ------REPORT ADDENDED------ INDICATIONS CONCLUSIONS -------- --- 1. This was a technically difficult study with suboptimal views. 2. Overall left ventric ular systolic function is moderate-severely impaired with, an EF between 30 - 35 %. 3. The r ight ventricle is mildly enlarged, but right ventricular systolic function is normal. 4. The left atrium is markedly dilated. 5. There is severe aortic stenosis present. 6. There is mo derate pulmonary hypertension. The right ventricular systolic pressure (pulmonary artery sy stolic pressure), as measured by Doppler, is 55 mm Hg. FINDINGS -------- Study: This was a technically difficult study with suboptimal views. Left Ventricle: Overall left ventricular systolic function is moderate-severely impaired with, an EF between 30 - 35 %. Left Ventric le: The left ventricle cavity size is normal. Left Ventricle: Left ventricular wall thickne ss is normal. Left Ventricle: The following regional wall motion abnormalities include: Le ft Ventricle: basal anteroseptal - moderately hypokinetic; Left Ventricle: mid anterosepta l - severely hypokinetic; Left Ventricle: mid inferoseptal - moderately hypokinetic; Lef t Ventricle: mid inferior - mildly hypokinetic; Left Ventricle: basal inferolateral - dysk inetic; Left Ventricle: mid anterolateral - severely hypokinetic; Left Ventricle: apical septum - severely hypokinetic; Left Ventricle: inferior apex - mildly hypokinetic; Lef t Ventricle: apical lateral -severely hypokinetic; Left Ventricle: apex - severely hypokin etic; The mid anterior wall was not well visualized. Left Ventricle: The remaining left ve ntricular segments contract normally. Right Ventricle: The right ventricle is mildly enlarge d measuring between 3.4 - 3.7 cm. Right Ventricle: The right ventricular systolic function is normal. Left Atrium: The left atrium is markedly dilated. Right Atrium: The right atrium is normal in size. Aortic Valve: The aortic valve was not well visualized. Aortic Valve: T he aortic valve is severely calcified. Aortic Valve: There is severe aortic stenosis presen t. Aortic Valve: The aortic valve area by continuity equation is 0.96 cm, Aortic V alve: The maximum velocity across the aortic valve is 4.1 m/s Aortic Valve: The maximum p ressure gradient across the aortic valve is 57 mmHg . Aortic Valve: The mean gradient acros s the aortic valve is 39 mmHg. Mitral Valve: The mitral valve is normal. Mitral Valve: Mild mitral regurgitation is present. Tricuspid Valve: Mild tricuspid regurgitation present. Tr icuspid Valve: There is moderate pulmonary hypertension. Tricuspid Valve: The right ventric ular systolic pressure (pulmonary artery systolic pressure), as measured by Doppler, is 55 m m Hg. IVC/Hepatic Veins: The IVC is dilated (>2.5cm) and does not collapse with sniff, cons istent with central venous pressures of >20mmHg. MEASUREMENTS IVC: 2.68 cm LA Major: 5.41 cm LVOT Diam: 2.12 cm RA Major: 4.76 cm RVIDd: 3.70 cm LAESV(A-L): 48.76 ml LAAs A2C: 15.95 cm2 LAESV A-L A2C: 46.10 ml LAESV MOD A2C: 43.40 ml LALs A2C: 4.68 cm LAAs A4C: 16.87 cm2 LAESV A-L A4C: 49.93 ml LAESV MOD A4C: 47.22 ml LALs A4 C: 4.83 cm IVC diameter: 3.00 cm IVC collapse: 1.74 cm IVC % collapse: 38.92 % HR: 90.38 BPM AV maxP.53 mmHg AV meanP.77 mmHg AV Vmax: 4.12 m/s AV Vmean: 3. 01 m/s AV VTI: 82.82 cm ZEKE Vmax: 0.94 cm2 ZEKE (VTI): 0.96 cm2 LVCO Dopp: 7.18 l/min HR: 89.97 BPM LVOT maxP.91 mmHg LVOT meanP.03 mmHg LVSV Dopp: 79.80 ml LVOT Vmax: 1.10 m/s LVOT Vmean: 0.82 m/s LVOT VTI: 22.46 cm TR maxP.92 mmHg TR Vmax : 2.95 m/s TV A Doe: 0.59 m/s TV Dec Gibson: 5.92 m/s2 TV Dec Time: 104.14 ms TV E Ve l: 0.61 m/s TV E/A Ratio: 1.04 Border Machine Operator: DONY Authenticated by: See stuart Date/Time: -- [id number] 03/06/2016 1. This was a technically difficult study with suboptimal views. 2. Overall lef t ventricular systolic function is moderate-severely impaired with, an EF between 30 - 35 %. 3. The right ventricle is mildly enlarged, but right ventricular systolic function is meseret l. 4. The left atrium is markedly dilated. 5. There is severe aortic stenosis present. 6. Th ere is moderate pulmonary hypertension. The right ventricular systolic pressure (pulmonary artery systolic pressure), as measured by Doppler, is 55 mm Hg. Ir Guidance Vascular Access Us 03/04/2016 This Point of Care (POC) ultrasound image has been reviewed and interpreted by the physician identified as the performing physician in the associated interpretation and report. PROBLEM LIST Principal Problem: NSTEMI (non-ST elevated myocardial infarction) ([facility]) Active Problems: Type 2 diabetes mellitus with diabetic nephropathy ([facility]) Essential hypertension, benign Obesity Anemia of chronic renal failure, stage 5 ([facility]) Aortic stenosis Acute diastolic congestive heart failure ([facility]) ESRD (end stage renal disease) ([facility]) Difficulty in walking Debility, unspecified 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 ([facility]) Paroxysmal atrial fibrillation ([facility]) ASSESSMENT & PLAN ESRD ON HD Seen and examined on hd tolerating hd/ uf well Access functioning well HD FLOW SHEET REVIEWED Assess daily for need for hd & uf Orders in the chart Fluid restriction 1.2 litres/24 hours Strict I & O Daily RFP Renal diet Daily weights will help with subsequent hd with uf Dose all meds per protocol for ESRD on hd ANEMIA OF CKD EPOGEN TO KEEP HGB 10-11 Lab Results Component Value Date HGB 8.0* 03/08/2016 HGB 8.4* 03/07/2016 HGB 8.5* 03/06/2016 HGB 9.9* 08/28/2015 HGB 10.5* 08/14/2015 HGB 11.0* 04/18/2015 FERRITIN 337 03/08/2016 FERRITIN 353.9 01/23/2016 FERRITIN 446.8* 11/20/2015 LABIRON 9* 03/08/2016 LABIRON 23.5 01/23/2016 LABIRON 27.9 11/20/2015 HYPERTENSION controlled WATCH BP CLOSELY DURING HOSPITALIZATION LOW NA DIET Will adjust BP meds according to BP readings BP Readings from Last 3 Encounters: 03/08/16 134/74 03/02/16 164/72 02/29/16 130/54 DM-2 Optimum Glycemic Control HYPERPHOSPHATEMIA LOW P DIET PO4 BINDERS Lab Results Component Value Date PHOS 6.5* 03/04/2016 PHOS 6.8* 03/02/2016 PHOS 5.0 11/20/2015 HYPOALBUMINEMIA INCREASE PROTEIN INTAKE Lab Results Component Value Date ALB 2.3* 03/08/2016 ALB 2.6* 03/05/2016 ALB 2.6* 03/04/2016 CAD/ SEVERE CT SX consulted Per Dr Dangelo cardiology high risk recommended PCI WITH TAVR CASE DISCUSSED IN DETAIL WITH PATIENT/ care team, ANSWERS ALL QUESTIONS IN DETAIL, VERBALIZ ES UNDERSTANDING IVAN SNELL MD 03/08/2016 STAR Corrine DOLL Seen earlier and charting completed later Dictation software, Screen Tonic, used which may contain error for similar sounding words even af ter review. Personal communication requested for any clarification. Portions of my notes may have been carried over for continuity of care. onversion Transa allysonion, Provider Unknown - 03/08/2016 9:26 AM PDT Case Management by Gigi Olvera MS, COMPANY MANAGER at 03/08/16925 Author: Gigi Olvera MS, COMPANY MANAGER Service: (none) Author Type: Report Programmer Filed: 03/08/16925 Date of Service: 03/08/16925 Status: Signed Whitesmith: Gigi Olvera MS, COMPANY MANAGER (Report Programmer) Discharge planning - CM called MAYA Daniel liaison, updated re: d/c status. Ruben Clark MD - 03/08/2016 7:31 AM PDT Progress Notes by Ruben Chanel MD at 03/08/16730 Author: Ruben Chanel MD Service: Hospitalist Author Type: Physician Filed: 03/08/16 0737 Date of Service: 03/08/16730 Status: Signed Whitesmith: Ruben Chanel MD (Physician) [facility] Service: Hospitalist Progress Note Brianna Vital 70 y.o. [id number] male STAR Corrine DOLL Hospital Day: LOS: 5 days SUBJECTIVE Patient Summary: Signed out note:" Patient is a 70 year old male with with past medical history of CKD Stage 5, S/P Fistula Fo rmation on 03/01/[address] Dias, CHF, Diastolic Dysfunction, HTN, HLD and DM Type 2 who was admitted due to increasing dyspnea and decreased urinary out put. Labs showed elevated at 1 .8, consistent with an acute NSTEMI while EKG showed only mild anterolateral ST abnormalitie s and frequent unifocal PVCs. CMP revealed elevated Creatinine of 8 and GFR of 7. Cardiology and Nephrology services were consulted, started on oxygen and IV Lasix with minimal improve ment. His CXR showed evidence of bilateral pulmonary edema. S/P Cardiac catheterization by Maycol Dangelo t found to have moderate three vessel disease and severe aortic stenosis. Hemodialysis catheter placed on the , patient subsequently has undergone daily hemodia lysis , with improved respiratory failure , off BiPAP presently on [address] surgery consulted and Dr. Pantoja is following, patient deemed high risk surgical candid ate, intra-disciplinary meeting scheduled for this Friday. Events Overnight: - Right IJ hemodialysis catheter placed on , patient underwent his first hemodialysis on , , , BiPAP has been weaned off and was stable on 3 L, this morning after breakfast patient dyspneic, oxygen requirements increased to 6 L, hemodialysis has been sta rted, patient asking to be placed on BiPAP. - Afebrile, no chest pain, no abdominal pain or nausea no emesis - Patient being evaluated for aortic valve replacement/CABG, deemed high risk surgical cand idate, interdisciplinary meeting scheduled for today Scheduled Medications amLODIPine 5 mg Oral Daily aspirin 81 mg Oral Daily with breakfast atorvastatin 80 mg Oral Nightly carvedilol 6.25 mg Oral BID WC cholecalciferol 1,000 Units Oral QPM diphenhydrAMINE 50 mg Oral Once epoetin lakeisha 10,000 Units Intravenous Once in dialysis famotidine 20 mg Oral Once heparin (porcine) 1,000 Units Intracatheter Once per day on Fri heparin (porcine) 500 Units Intracatheter Once per day on Fri heparin (porcine) Intracatheter Daily hydrALAZINE 10 mg Oral TID insulin glargine 60 Units Subcutaneous QAM insulin lispro (human) 0-3 Units Subcutaneous Nightly insulin lispro (human) 0-6 Units Subcutaneous TID AC lidocaine 40 mL Intradermal Once lidocaine-EPINEPHrine 1 mL Infiltration Once pantoprazole 40 mg Intravenous BID sevelamer 1,600 mg Oral TID sitagliptan 25 mg Oral Daily terazosin 10 mg Oral Nightly Continuous Infusions dextrose sodium chloride (IV) 50 mL/hr at 03/06/16 1836 PRN Medications acetaminophen OR acetaminophen, dextrose, dextrose, dextrose, glucagon, glucagon, hepar in (porcine) 5000 unit/0.5mL, heparin (porcine) 5000 unit/0.5mL, HYDROcodone-acetaminophen * *OR HYDROcodone-acetaminophen, nitroGLYCERIN, ondansetron OR ondansetron, polyethylene glycol Allergy: Allergies Allergen Reactions Penicillins Rash Reacted with a rash as a child. Has not had penicillins since. Gemfibrozil Nausea and Vomiting Questran [Cholestyramine] Nausea and Vomiting OBJECTIVE Vital Signs: BP 128/91 mmHg | Pulse 90 | Temp(Src) 97.1 F (36.2 C) (Oral) | Resp 30 | Ht 1.753 m (5' 9") | Wt 97.3 kg (214 lb 8.1 oz) | BMI 31.66 kg/m2 | SpO2 93% I&O Detailed Table: I/O last 3 completed shifts: In: 3352 [P.O.:1490; I.V.:1862] Out: 925 [Urine:925] Weight change: -2.8 kg (-6 lb 2.8 oz) Hemodynamics Last 24hrs: Examination: Constitutional: Patient is alert and oriented. Appears frail but well-developed and not in acute distress at this time., On 6 L oxygen full speech, dyspneic with speech, presently on hemodialysis HEENT: Head: Nose: Mouth/Throat: Oropharynx is clear and moist. Eyes: Neck: Cardiovascular: RRR, + Loud Systolic Murmur Pulmonary/Chest: Crackles lower lung matthews Abdominal: Soft, BS present, no distension, Musculoskeletal: Moves all limbs, No joint tenderness. Trace pedal edema. Neurological: No focal neurologic deficits. Skin: Skin is warm and dry. No rash noted. No erythema. No pallor. Psychiatric: No psychosis, Dysphoric affect, normal mood. Judgment is fair. LABS: Recent Results (from the past 24 hour(s)) POCT glucose Collection Time: 03/07/16 8:45 AM Result Value Ref Range GLUCOSE,POC SCREEN 219 (H) 65 - 99 mg/dL POCT glucose Collection Time: 03/07/16 11:13 AM Result Value Ref Range GLUCOSE,POC SCREEN 263 (H) 65 - 99 mg/dL POCT glucose Collection Time: 03/07/16 4:20 PM Result Value Ref Range GLUCOSE,POC SCREEN 198 (H) 65 - 99 mg/dL POCT glucose Collection Time: 03/07/16 9:32 PM Result Value Ref Range GLUCOSE,POC SCREEN 168 (H) 65 - 99 mg/dL Vitamin D 25 hydroxy Collection Time: 03/08/16 3:25 AM Result Value Ref Range VITAMIN D,25 HYDROXY 48 30 - 150 ng/mL Iron and TIBC Collection Time: 03/08/16 3:25 AM Result Value Ref Range IRON 13 (L) 45 - 190 ug/dL TIBC 150 (L) 250 - 450 ug/dL IRON % SAT 9 (L) 20 - 50 % Ferritin Collection Time: 03/08/16 3:25 AM Result Value Ref Range FERRITIN 337 11 - 450 ng/mL POCT glucose Collection Time: 03/08/16 5:50 AM Result Value Ref Range GLUCOSE,POC SCREEN 149 (H) 65 - 99 mg/dL CBC w/auto diff (reflex to manual) Collection Time: 03/08/16 7:07 AM Result Value Ref Range WBC 8.80 3.80 - 11.00 K/uL RBC 2.87 (L) 4.20 - 5.70 M/uL HGB 8.0 (L) 13.2 - 17.0 g/dL HCT 24.7 (L) 39.0 - 50.0 % MCV 86.2 80.0 - 100.0 fl MCH 27.8 27.0 - 34.0 pg MCHC 32.3 32.0 - 35.5 g/dL RDW SD 44.6 37 - 53 fl PLT 150 150 - 400 K/uL MPV 10.2 fl DIFF TYPE AUTOMATED NEUTROPHILS 77.47 % LYMPHOCYTES 9.55 % MONOCYTES 9.33 % EOSINOPHILS 2.70 % BASOPHILS 0.95 % NEUTROPHILS ABS 6.82 1.90 - 7.40 K/uL LYMPHOCYTES ABS 0.84 (L) 1.00 - 3.90 K/uL MONOCYTES ABS 0.82 (H) 0.00 - 0.80 K/uL EOSINOPHILS ABS 0.24 0.00 - 0.50 K/uL BASOPHILS ABS 0.08 0.00 - 0.10 K/uL PROBLEM LIST Principal Problem: NSTEMI (non-ST elevated myocardial infarction) (FORM[facility]LY [facility]) Active Problems: Type 2 diabetes mellitus with diabetic nephropathy ([facility]) Essential hypertension, benign Obesity Anemia of chronic renal failure, stage 5 ([facility]) Aortic stenosis Acute diastolic congestive heart failure ([facility]) ESRD (end stage renal disease) ([facility]) Difficulty in walking Debility, unspecified 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 ( CC) Paroxysmal atrial fibrillation ([facility]) ASSESSMENT & PLAN Acute Coronary Syndrome / NSTEMI: S/P Cardiac catheterization by Dr. Dangelo found to have mo derate three vessel disease and severe aortic stenosis. CT surgery consulted and Dr. Marquita cohen following, patient deemed high risk for surgery to undergo inter-disciplinary meeting on - Cardiology consulted - Presently stable Acute on Chronic systolic and diastolic CHF Dysfunction: - Echocardiogram EF 30-35 percent, severe aortic stenosis, moderate pulmonary hypertension - Dyspneic, back on BiPAP Severe Aortic Stenosis: Chronic and worsening, this is contributing to his current symptom s of shortness of breath and volume overloaded state. - Being evaluated for aortic valve replacement, interdisciplinary meeting scheduled for Fri Chronic Kidney Disease, Stage V / ESRD: - Right IJ hemodialysis , also started with clinically improve - Again renal diet, fluid restriction 1000 mL/24hrs - Undergoing daily HD - Scheduling outpatient HD Diabetes Mellitus, Type 2: Blood sugars seems to be stable, will continue with Lantus with caution and give additional Humalog per SSI. Hypertension: BP seems to be stable at this time, will continue Coreg, Amlodipine and Hydra lazine as scheduled and monitor hemodynamics. Anemia of Chronic CKD: H&H is low at 8.6, no active bleeding at this time. Will continue to monitor CBC and transfuse as needed. Difficulty in Walking / Debility: Multifactorial, due to deconditioning and CHF exacerbati on, will involve PT services when stable and monitor. DVT prophylaxis with SCD's and Heparin. Discharge plans when stable and improved. His condition is guarded due to severe aortic johnna nosis, CHF exacerbation and ESRD. Ruben Chanel MD 03/08/2016 onversion Transact ion, Provider Unknown - 03/07/2016 6:36 PM PDTFormatting of this note might be different fr om the original. Nurse Progress Note by Sumi Buck RN at 03/07/161835 Author: Sumi Buck RN Service: (none) Author Type: Registered Nurse Filed: 03/07/161838 Date of Service: 03/07/161835 Status: Signed Whitesmith: Sumi Buck RN (Registered Nurse) Pt was lethargic this am, but perked up throughout the day and has been in good spirits. P t sat in the chair or at the bedside for most of the day. Buttocks was noted to be excoriat ed. Foam dressings put in place. Conference scheduled for tomorrow to confirm plan. Sumi Buck RN 03/07/2016 6:36 PM Cuate Morales MD - 03/07/2016 3:48 PM PDT Progress Notes by Cuate Espinosa MD at 03/07/16 1548 Author: Cuate Espinosa MD Service: (none) Author Type: Physician Filed: 03/07/16 160 Date of Service: 03/07/161547 Status: Signed Whitesmith: Cuate Espinosa MD (Physician) Hospital Problem List: Principal Problem: NSTEMI (non-ST elevated myocardial infarction) ([facility]) Active Problems: Type 2 diabetes mellitus with diabetic nephropathy ([facility]) Essential hypertension, benign Obesity Anemia of chronic renal failure, stage 5 (HCC) Aortic stenosis Acute diastolic congestive heart failure (HCC) ESRD (end stage renal disease) ([facility]) Difficulty in walking Debility, unspecified 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 (H CC) Paroxysmal atrial fibrillation (HCC) The patient says that he feels 'ok' today. he denies any CP or SOB. his urine output 400 ml.. The following portions of the patient's history were reviewed and updated as appropriate: l aboratory data, radiologic studies, allergies, current medications, and problem list. amLODIPine 5 mg Oral Daily aspirin 81 mg Oral Daily with breakfast atorvastatin 80 mg Oral Nightly carvedilol 6.25 mg Oral BID WC cholecalciferol 1,000 Units Oral QPM diphenhydrAMINE 50 mg Oral Once famotidine 20 mg Oral Once heparin (porcine) Intracatheter Daily hydrALAZINE 10 mg Oral TID insulin glargine 60 Units Subcutaneous QAM insulin lispro (human) 0-3 Units Subcutaneous Nightly insulin lispro (human) 0-6 Units Subcutaneous TID AC lidocaine 40 mL Intradermal Once lidocaine-EPINEPHrine 1 mL Infiltration Once pantoprazole 40 mg Intravenous BID sevelamer 800 mg Oral TID WC sitagliptan 25 mg Oral Daily sodium bicarbonate 650 mg Oral 4x Daily terazosin 10 mg Oral Nightly dextrose sodium chloride (IV) 50 mL/hr at 03/06/16 1836 P.E. BP 130/66 mmHg | Pulse 80 | Temp(Src) 98.6 F (37 C) (Oral) | Resp 18 | Ht 1.753 m (5' 9 ") | Wt 98.1 kg (216 lb 4.3 oz) | BMI 31.92 kg/m2 | SpO2 93% General appearance: Pleasant, not in acute distress. Lungs: Good A/E to auscultation bilaterally and resonant. There are no wheezes. Heart: Regular rate and rhythm without any rub, gallop. Abdominal exam: Soft and nontender with normal bowel sounds. Extremities: Warm to touch with no leg edema. There is no cyanosis or clubbing. Neurological: Awake, alert, and oriented to time, place, and person. Lab Results Component Value Date BUN * 03/07/2016 CREATININE 4.5* 03/07/2016 EGFR 14* 03/07/2016 NA 140 03/07/2016 K 3.9 03/07/2016 CL 104 03/07/2016 CO2 27 03/07/2016 CA 8.2* 03/07/2016 PHOS 6.5* 03/04/2016 MG 2.4 03/04/2016 ALB 2.6* 03/05/2016 HGB 8.4* 03/07/2016 Assessment and Recommendations: Mr. Vital is a 70 y.o. male patient with ESRD, CAD and ESRD. No indication for HD today, will arrange tomorrow When discharged has OP HDU arranged, please see note from María regarding OP schedule HTN. Controlled CAD/ Plan per cardiology Hyperphosphatemia Increased Sevelamer to 1600 mg TID with meals Check Vit D level PTH was checked in 01/22 Anemia. Will check iron studies. I discussed with the hospital team the case at the time of this encounter. CUATE ESPINOSA MD FACP onversion Transact ion, Provider Unknown - 03/07/2016 9:27 AM PDTFormatting of this note might be different fr om the original. Progress Notes by Maraí Galindo at 03/07/16926 Author: María Galindo Service: (none) Author Type: Coordinator Filed: 03/07/16930 Date of Service: 03/07/16926 Status: Signed Whitesmith: María Galindo (Coordinator) Patient chair time is: Friday, & Friday @ 1:45pm-please have patient arrive FIRST DAY ONLY 03-08-16 @ 1 :30pm for new patient paperwork. Please contact Dialysis Coord María at [phone] if trevor jaxon will not discharge in time for first dialysis appointment on 03-08-16. [facility] [address] [address] [facility], [place] [address] Thank you. onver rosie Transaction, Provider Unknown - 03/07/2016 9:24 AM PDT Therapy Progress Note by Nakita Dallas PT at 03/07/16923 Author: Nakita Dallas PT Service: (none) Author Type: Physical Therapist Filed: 03/07/16 1001 Date of Service: 03/07/16923 Status: Signed Whitesmith: Nakita Dallas PT (Physical Therapist) 03/07/16923 PT Last Visit PT Received On 03/07/16 Reason for Treatment Deconditioning Requires PT Follow Up Awaiting tx order Follow up PT Only? No PT Eval/Reassessment Date 03/07/16 Assistance Required 1 person Chemic Mangler Needed No Home Environment Type of Home Home one story Home Exterior Layout Entry steps none Home Interior Layout Lives on main level with bedroom/bathroom Bathroom Shower/Tub Walk-in shower Bathroom Toilet Raised Bathroom Equipment Grab bars outside of shower/bath Home Equipment Cane single point Prior Function Level of [place] Independent with functional mobility;Independent with ADLs;Independe nt with IADLs Falls in Past Year (2 falls in the last few months) Lives With Spouse Employment Retired for age RUE Assessment RUE Assessment WFL LUE Assessment LUE Assessment WFL RLE Assessment RLE Assessment WFL LLE Assessment LLE Assessment WFL Cognition Overall Cognitive Status WFL Orientation Level Oriented Comments lethargic Sensation Light Touch No apparent deficits Perception Inattention/Neglect Appears intact Initiation Appears intact Motor Planning Appears intact Perseveration Not present Vision-Basic Assessment Current Vision Wears glasses Assessment of Patient Status Assessment of Patient Status Decreased functional mobility;Decreased ADL status;Decreased endurance Safety Devices Safety Devices in Place (call light) Precautions Other Precautions fall precautions Activity Tolerance Endurance Poor Plan Treatment/Interventions Balance training;Bed mobility training;Gait training;Therapeutic ex ercise;Transfer training PT Frequency 2-3x/wk Care Duration (# of days) 7 # of days Recommendation Recommendations Defer Equipment Recommended (TBD) Barriers to Discharge Physical Deficits Impacting Functional [place];Self-care Deficit s Impacting Functional [place] Recommendation Comments Pending improvement with bed mobility, pt may need continued therap y (subacute vs OPPT vs HHPT - dependent on amount of assist available at home). Unable to ga in much info on PLOF due to lethargic state. 03/07/16 0924 PT Last Visit PT Received On 03/07/16 Reason for Treatment Deconditioning Requires PT Follow Up Awaiting tx order Follow up PT Only? No PT Eval/Reassessment Date 03/07/16 Assistance Required 1 person Chemic Mangler Needed No Precautions Other Precautions fall precautions Other Comments Comments Pt supine in bed, very lethargic, difficult to keep pt awake, delayed response to questions, required coaxing to respond. Pt required extra time and modA to transfer supine t o sitting at EOB. Once sitting up, pt became more alert and conversive. Pt demonstrated no u nsteadiness while ambulating with FWW. Pt with poor eccentric control with transfering back to sitting. Fall risk assessed with tinetti, scored 16/28 indicating fall risk. Pt ended ses rosie sitting up in chair with call light in reach, all needs met. Vitals : HR 89, SpO2 94% o n 3L NC, BP 133/69 Cognition Overall Cognitive Status WFL Orientation Level Oriented Comments lethargic Bed Mobility Supine to Sit Mod assist (BLEs OOB or trunk to upright);x 1 person Transfers Sit to/from Stand Minimal assist (steadying/contact guard) Mobility Weight Bearing Status WBAT LLE;WBAT RLE Ambulation Assistance Standby assist Maximal Ambulation Distance (feet) 35ft Total Ambulation Distance (feet) 35ft Distance limited by? Therapist/staff discretion Pattern Alternating;Decreased garret;Right swing foot doesn't pass stance foot;Left swing foot doesn't pass stance foot Assistive Device Walker front wheeled Balance Balance (tinetti ) Modalities Modalities Other therapy Other Therapy ed on PT POC Activity Tolerance Activity Tolerance Patient limited by fatigue Nurse Made Aware yes Safety Devices Safety Devices in Place (call light) Plan Treatment/Interventions Balance training;Bed mobility training;Gait training;Therapeutic ex ercise;Transfer training PT Frequency 2-3x/wk Care Duration (# of days) 7 # of days Recommendation Recommendations Defer Equipment Recommended (TBD) Barriers to Discharge Physical Deficits Impacting Functional [place];Self-care Deficit s Impacting Functional [place] Recommendation Comments Pending improvement with bed mobility, pt may need continued therap y (subacute vs OPPT vs HHPT - dependent on amount of assist available at home). Unable to ga in much info on PLOF due to lethargic state. See Jordan MD - 03/07/2016 8:01 AM PDTFormatting of this note might be different from the o riginal. Progress Notes by See Dangelo MD at 03/07/16 0801 Author: See Dangelo MD Service: Cardiology Author Type: Physician Filed: 03/07/16 0850 Date of Service: 03/07/16800 Status: Signed Whitesmith: See Dangelo MD (Physician) [facility] Service: Cardiology Progress Note Hospital Day: LOS: 4 days Post-Op Day: * No surgery found * SUBJECTIVE Patient Summary: 70M followed by Aki Germain D.O., at our [facility] office for sev ere aortic stenosis, and Sweta Ly MD for stage IV chronic kidney disease. Because of wo rsening renal function, he had a right brachiocephalic AV fistula created by Dr. Dias on 03/01. After being discharged following that procedure, he was home for a short time, and note d that he had decreased appetite, and felt "bloated". 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 There is no orthopnea or PND. There was no chest pain, pressure or discomfort, no palpitations. He came to the em ergency room. Supplemental oxygen helped the dyspnea. He was given IV Lasix, but has urinate d only a scant amount. He is currently relatively asymptomatic. His chest x-ray showed evid ence of bilateral pulmonary edema. His troponin was elevated at 1.8, consistent with an acut e NSTEMI. His EKG shows only mild anterolateral ST abnormalities, and frequent unifocal PVCs , which were not present on an EKG 2 days ago. He has been hemodynamically stable. Cardi ac catheterization revealed only moderate aortic stenosis by cath criteria, with a repeat ec hocardiogram pending. He also has moderate 3-vessel CAD. He will be seen by Jesús Pantoja MD, for consideration of AVR and coronary bypass. He had a tunneled right internal jugular d ialysis catheter placed by Efrain Navarro MD, and underwent HD Mon. and .. He had AFib wi th intial HD, spontaneously converted to NSR. Events Overnight: No complaints. He denies chest pain, SOB. Sleepy this AM. He unde rwent HD again yesterday afternoon. Past Medical History Diagnosis Date Hypertension Hyperlipidemia Diabetes mellitus, type 2 ([facility]) 2005 Insulin-requiring, with diabetic Nephropathy, Retinopathy Sleep apnea dx light apnea Chronic kidney disease Stage IV-V Anemia of chronic renal failure 01/24/2012 Acute upper GI bleed 01/18/2014 PUD on EGD, ulcer cauterized Stroke ([facility]) 2010 right surface stroke, residual left hand numbness/tingling Acute diastolic congestive heart failure ([facility]) 03/03/2016 Aortic valve stenosis, severe Vitamin D deficiency Skin cancer NSTEMI (non-ST elevated myocardial infarction) ([facility]) 03/03/2016 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 Esophagogastroduodenoscopy N/A 01/18/2014 Procedure: ESOPHAGOGASTRODUODENOSCOPY; Surgeon: Caitlyn Khan MD; Location: [facility]; Service: Gastroenterology; Laterality: N/A; Av fistula placement Right 03/01/2016 Procedure: AV FISTULA; Surgeon: Vivek Dias MD; Location: [facility]; Service: Vascul ar; Laterality: Right; brachiocephalic fistula creation Skin cancer excision mid forehead Allergies Allergen Reactions Penicillins Rash Reacted with a rash as a child. Has not had penicillins since. Gemfibrozil Nausea and Vomiting Questran [Cholestyramine] Nausea and Vomiting Scheduled Medications amLODIPine 5 mg Oral Daily aspirin 81 mg Oral Daily with breakfast atorvastatin 80 mg Oral Nightly carvedilol 6.25 mg Oral BID WC cholecalciferol 1,000 Units Oral QPM diphenhydrAMINE 50 mg Oral Once famotidine 20 mg Oral Once heparin (porcine) Intracatheter Daily hydrALAZINE 10 mg Oral TID insulin glargine 60 Units Subcutaneous QAM insulin lispro (human) 0-3 Units Subcutaneous Nightly insulin lispro (human) 0-6 Units Subcutaneous TID AC lidocaine 40 mL Intradermal Once lidocaine-EPINEPHrine 1 mL Infiltration Once pantoprazole 40 mg Intravenous BID sevelamer 800 mg Oral TID WC sitagliptan 25 mg Oral Daily sodium bicarbonate 650 mg Oral 4x Daily terazosin 10 mg Oral Nightly Continuous Infusions dextrose sodium chloride (IV) 50 mL/hr at 03/06/16 1836 PRN Medications acetaminophen OR acetaminophen, dextrose, dextrose, dextrose, glucagon, glucagon, hepar in (porcine) 5000 unit/0.5mL, heparin (porcine) 5000 unit/0.5mL, HYDROcodone-acetaminophen * *OR HYDROcodone-acetaminophen, nitroGLYCERIN, ondansetron OR ondansetron, polyethylene glycol OBJECTIVE Vital Signs: BP 117/59 mmHg | Pulse 90 | Temp(Src) 98.1 F (36.7 C) (Oral) | Resp 18 | Ht 1.753 m (5' 9") | Wt 98.1 kg (216 lb 4.3 oz) | BMI 31.92 kg/m2 | SpO2 97% Temp: [97.8 F (36.6 C)-99 F (37.2 C)] 98.1 F (36.7 C) (03/07 715) BP: (117-146)/(59-82) 117/59 mmHg (03/07 715) Heart Rate: [81-94] 90 (03/07 715) Resp: [18-20] 18 (03/07 715) SpO2: [91 %-97 %] 97 % (03/07 715) Weight: [98.1 kg (216 lb 4.3 oz)-100.1 kg (220 lb 10.9 oz)] 98.1 kg (216 lb 4.3 oz) (03/06 173) TELEMETRY: NSR I/O: 3362 / 3700, net -3226 since admission GENERAL: Morbidly obeseWell developed, well nourished elderly male, in no distr ess. Appears approximately stated age. HEENT: Normocephalic, atraumatic. EYES: Well healed iridectomies. PERRL, sclerae anicteric, no xanthelsasmas MOUTH: Oral mucosae moist, dentition adequate, no lesions noted NECK: Tunneled RIJV HD catheter. No JVD, lymphadenopathy, thyromegaly, bruits. Car otid pulses are 1+ bilaterally and delayed LUNGS: Diffusely decreased breath sounds anteriorly and laterally, with no rales, rhonchi , minimal diffuse expiratory wheezing noted, respirations unlabored HEART: Nondisplaced PMI, regular rate and rhythm, S1 normal, S2 diminished but audible. 2-3/6 late peaking systolic crescendo decrescendo murmur at the base, radiating to the left sternal border. No rubs or gallops noted. ABDOMEN: Obese. Soft, nontender, no organomegaly, masses or bruits. Bowel sounds are no rmal in all 4 quadrants. The abdominal aortic pulsation is not palpable. EXTREMITIES: 1+ ankle edema bilaterally. Radial pulses 2+ on the left, nonpalpable on the right, where a brachiocephalic AV fistula surgical site is bandaged, but has a palpable thr ill. Femoral pulses are 2+ bilaterally without bruits. DP and PT pulses are 1+ bilateral ly. SKIN: Warm and dry, capillary refill is normal, no lesions. NEUROLOGIC: Awake, alert and oriented x 3. No focal motor deficits. PSYCHIATRIC: Appropriate, affect appears normal DATA ECHO (03/05/16): 1. This was a technically difficult study with suboptimal views. 2. Overall left ventricular systolic function is moderate-severely impaired with, an EF bet ween 30 - 35 %. 3. The right ventricle is mildly enlarged, but right ventricular systolic function is meseret l. 4. The left atrium is markedly dilated. 5. There is severe aortic stenosis present. 6. There is moderate pulmonary hypertension. The right ventricular systolic pressure (pul monary artery systolic pressure), as measured by Doppler, is 55 mm Hg. CBC: Lab Results Component Value Date WBC 7.61 03/07/2016 RBC 2.97* 03/07/2016 HGB 8.4* 03/07/2016 HGB 9.9* 08/28/2015 HCT 25.5* 03/07/2016 MCV 85.7 03/07/2016 MCH 28.2 03/07/2016 MCHC 32.9 03/07/2016 RDW 43.8 03/07/2016 PLT 126* 03/07/2016 MPV 10.6 03/07/2016 DIFFTYPE AUTOMATED 03/05/2016 CMP: Lab Results Component Value Date NA 140 03/07/2016 K 3.9 03/07/2016 CL 104 03/07/2016 CO2 27 03/07/2016 ANIONGAP 13 03/07/2016 GLUF 152* 03/07/2016 BUN 29* 03/07/2016 CREATININE 4.5* 03/07/2016 CREATININE 5.79* 11/22/2015 BCR 6 03/07/2016 CA 8.2* 03/07/2016 CA 9.7 09/11/2015 PROT 5.9* 03/05/2016 ALB 2.6* 03/05/2016 GLOB 3.3 03/05/2016 BILITOT 0.3 03/05/2016 ALP 37 03/05/2016 AST 27 03/05/2016 ALT 9* 03/05/2016 EGFR 14* 03/07/2016 LIPID PANEL: TC-113, LDL-42, HDL-41, TG-149 PROBLEM LIST Principal Problem: NSTEMI (non-ST elevated myocardial infarction) (FORM[facility]LY [facility]) Active Problems: Type 2 diabetes mellitus with diabetic nephropathy ([facility]) Essential hypertension, benign Obesity Anemia of chronic renal failure, stage 5 ([facility]) Aortic stenosis Acute diastolic congestive heart failure ([facility]) ESRD (end stage renal disease) ([facility]) Difficulty in walking Debility, unspecified 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 (H CC) Paroxysmal atrial fibrillation (HCC) ASSESSMENT & PLAN 1. Acute NSTEMI, Killip class II, hemodynamically stable. Cardiac catheterization revealed moderate 3-vessel CAD, with the worst lesion in the 1st diagonal branch. He has been started on aspirin, Coreg and losartan. 2. Severe aortic stenosis by echocardiography last month, confirmed on a repeat study yeste , with ZEKE 0.97 cm sq, peak transvalvular velocity measured at 4.1 m/s, an indicator of severe . The was only moderate by cardiac catheterization criteria. He is to be discu ssed in conference (but no meeting this Friday) as he is a high risk case for surgery: STS Surgical Risk score for AVR + CABG: -- Mortality-10.88% -- Morbidity or mortality-46.1% -- Long length of stay-29.76% -- Stroke-4.75% -- Prolonged ventilation-34% -- Sternotomy infection-2.36% -- Need for reoperation-14.4% These numbers suggest he may be a better candidate for PCI/TAVR. Coronary lesions may requ ariana FFR for better evaluation. 3. Dilated Cardiomyopathy, EF 30-35% on echo, likely mixed ischemic and non-ischemic etiolo gy 4. Stage V chronic kidney disease, right upper extremity brachiocephalic AV fistula created 03/01/16, but it will be sometime before this can be used. He will have a RIJV dialysis acce ss today, and hemodialysis will to be started on this admission. 5. 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 Essential hypertension, controlled 8. Moderate Pulmonary HTN, likely secondary to # 2, 3, 8 7. History of a right CVA, with minimal residual left arm numbness and tingling, but no oth er residual deficits. 8. Mild obstructive sleep apnea, untreated 9. Moderately severe anemia, due to chronic kidney disease. 10. Paroxysmal Atrial Fibrillation with his initial HD session, maintaining NSR since then. 11. Hyperlipidemia, with metabolic syndrome, well controlled Disposition: Continue hemodialysis. Cardiothoracic surgical evaluation pending high risk c onference at this time. Code Status: Full Code See Dangelo MD 03/07/2016 insvitlana, MD Ruben - 03/07/2016 7:24 AM PDT Progress Notes by Ruben Chanel MD at 03/07/16723 Author: Ruben Chanel MD Service: Hospitalist Author Type: Physician Filed: 03/07/1640 Date of Service: 03/07/16723 Status: Signed Whitesmith: Ruben Chanel MD (Physician) [facility] Service: Hospitalist Progress Note Brianna Vital 70 y.o. [id number] male [facility] Hospital Day: LOS: 4 days SUBJECTIVE Patient Summary: Signed out note:" Patient is a 70 year old male with with past medical history of CKD Stage 5, S/P Fistula Fo rmation on 03/01/[address] Dias, CHF, Diastolic Dysfunction, HTN, HLD and DM Type 2 who was admitted due to increasing dyspnea and decreased urinary out put. Labs showed elevated at 1 .8, consistent with an acute NSTEMI while EKG showed only mild anterolateral ST abnormalitie s and frequent unifocal PVCs. CMP revealed elevated Creatinine of 8 and GFR of 7. Cardiology and Nephrology services were consulted, started on oxygen and IV Lasix with minimal improve ment. His CXR showed evidence of bilateral pulmonary edema. S/P Cardiac catheterization by Maycol Dangelo t found to have moderate three vessel disease and severe aortic stenosis. Hemodialysis catheter placed on the , patient subsequently has undergone daily hemodia lysis , with improved respiratory failure , off BiPAP presently on [address] surgery consulted and Dr. Pantoja is following, patient deemed high risk surgical candid ate, intra-disciplinary meeting scheduled for this Friday. Events Overnight: - Right IJ hemodialysis catheter placed on , patient underwent his first hemodialysis on , , , BiPAP has been weaned off and presently on 3 L . - Patient felt short of breath overnight oxygen requirements increased to 6 L, Yosvany back down to 3 L, he denies feeling short of breath at this moment no chest pain , no nausea no emesis otherwise feels well . - Patient being evaluated for aortic valve replacement/CABG, deemed high risk surgical cand idate, interdisciplinary meeting scheduled for Friday Scheduled Medications amLODIPine 5 mg Oral Daily aspirin 81 mg Oral Daily with breakfast atorvastatin 80 mg Oral Nightly carvedilol 6.25 mg Oral BID WC cholecalciferol 1,000 Units Oral QPM diphenhydrAMINE 50 mg Oral Once famotidine 20 mg Oral Once heparin (porcine) Intracatheter Daily hydrALAZINE 10 mg Oral TID insulin glargine 60 Units Subcutaneous QAM insulin lispro (human) 0-3 Units Subcutaneous Nightly insulin lispro (human) 0-6 Units Subcutaneous TID AC lidocaine 40 mL Intradermal Once lidocaine-EPINEPHrine 1 mL Infiltration Once pantoprazole 40 mg Intravenous BID sevelamer 800 mg Oral TID WC sitagliptan 25 mg Oral Daily sodium bicarbonate 650 mg Oral 4x Daily terazosin 10 mg Oral Nightly Continuous Infusions dextrose sodium chloride (IV) 50 mL/hr at 03/06/16 1836 PRN Medications acetaminophen OR acetaminophen, dextrose, dextrose, dextrose, glucagon, glucagon, hepar in (porcine) 5000 unit/0.5mL, heparin (porcine) 5000 unit/0.5mL, HYDROcodone-acetaminophen * *OR HYDROcodone-acetaminophen, nitroGLYCERIN, ondansetron OR ondansetron, polyethylene glycol Allergy: Allergies Allergen Reactions Penicillins Rash Reacted with a rash as a child. Has not had penicillins since. Gemfibrozil Nausea and Vomiting Questran [Cholestyramine] Nausea and Vomiting OBJECTIVE Vital Signs: BP 117/59 mmHg | Pulse 90 | Temp(Src) 98.1 F (36.7 C) (Oral) | Resp 18 | Ht 1.753 m (5' 9") | Wt 98.1 kg (216 lb 4.3 oz) | BMI 31.92 kg/m2 | SpO2 97% I&O Detailed Table: I/O last 3 completed shifts: In: 3712 [P.O.:850; I.V.:1162; Other:1700] Out: 4125 [Urine:425; Other:3700] Weight change: 3.4 kg (7 lb 7.9 oz) Hemodynamics Last 24hrs: Examination: Constitutional: Patient is alert and oriented. Appears frail but well-developed and not in acute distress at this time., On 3 L oxygen full speech HEENT: Head: Nose: Mouth/Throat: Oropharynx is clear and moist. Eyes: Neck: Cardiovascular: RRR, + Loud Systolic Murmur Pulmonary/Chest: Clear to auscultation Abdominal: Soft, BS present, no distension, Musculoskeletal: Moves all limbs, No joint tenderness. Trace pedal edema. Neurological: No focal neurologic deficits. Skin: Skin is warm and dry. No rash noted. No erythema. No pallor. Psychiatric: No psychosis, Dysphoric affect, normal mood. Judgment is fair. LABS: Recent Results (from the past 24 hour(s)) POCT glucose Collection Time: 03/06/16 11:18 AM Result Value Ref Range GLUCOSE,POC SCREEN 193 (H) 65 - 99 mg/dL POCT glucose Collection Time: 03/06/16 4:19 PM Result Value Ref Range GLUCOSE,POC SCREEN 134 (H) 65 - 99 mg/dL Basic metabolic panel Collection Time: 03/07/16 3:56 AM Result Value Ref Range SODIUM 140 135 - 145 mmol/L POTASSIUM 3.9 3.5 - 4.9 mmol/L CHLORIDE 104 99 - 109 mmol/L CO2 27 23 - 32 mmol/L ANION GAP AGAP 13 5 - 20 mmol/L GLUCOSE 152 (H) 65 - 99 mg/dL BUN 29 (H) 8 - 25 mg/dL CREATININE 4.5 (H) 0.70 - 1.30 mg/dL BUN/CREAT 6 CALCIUM 8.2 (L) 8.5 - 10.5 mg/dL EGFR 14 (L) >60 mL/min/1.73m2 CBC w/no Diff Collection Time: 03/07/16 3:56 AM Result Value Ref Range WBC 7.61 3.80 - 11.00 K/uL RBC 2.97 (L) 4.20 - 5.70 M/uL HGB 8.4 (L) 13.2 - 17.0 g/dL HCT 25.5 (L) 39.0 - 50.0 % MCV 85.7 80.0 - 100.0 fl MCH 28.2 27.0 - 34.0 pg MCHC 32.9 32.0 - 35.5 g/dL RDW SD 43.8 37 - 53 fl PLT 126 (L) 150 - 400 K/uL MPV 10.6 fl PROBLEM LIST Principal Problem: NSTEMI (non-ST elevated myocardial infarction) ([facility]) Active Problems: Type 2 diabetes mellitus with diabetic nephropathy (HCC) Essential hypertension, benign Obesity Anemia of chronic renal failure, stage 5 (HCC) Aortic stenosis Acute diastolic congestive heart failure (HCC) ESRD (end stage renal disease) (HCC) Difficulty in walking Debility, unspecified 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 Dangelo found to have mo derate three vessel disease and severe aortic stenosis. CT surgery consulted and Dr. Marquita cohen following, patient deemed high risk for surgery to undergo inter-disciplinary meeting on - Cardiology consulted - Presently stable Acute on Chronic systolic and diastolic CHF Dysfunction: - Echocardiogram EF 30-35 percent, severe aortic stenosis, moderate pulmonary hypertension Severe Aortic Stenosis: Chronic and worsening, this is contributing to his current symptom s of shortness of breath and volume overloaded state. - Being evaluated for aortic valve replacement, interdisciplinary meeting scheduled for Fri Chronic Kidney Disease, Stage V / ESRD: - Right IJ hemodialysis , also started with clinically improve - Again renal diet, fluid restriction 1000 mL/24hrs - Scheduling outpatient HD Diabetes Mellitus, Type 2: Blood sugars seems to be stable, will continue with Lantus with caution and give additional Humalog per SSI. Hypertension: BP seems to be stable at this time, will continue Coreg, Amlodipine and Hydra lazine as scheduled and monitor hemodynamics. Anemia of Chronic CKD: H&H is low at 8.6, no active bleeding at this time. Will continue to monitor CBC and transfuse as needed. Difficulty in Walking / Debility: Multifactorial, due to deconditioning and CHF exacerbati on, will involve PT services when stable and monitor. DVT prophylaxis with SCD's and Heparin. Discharge plans when stable and improved. His condition is guarded due to severe aortic johnna nosis, CHF exacerbation and ESRD. Ruben Chanel MD 03/07/2016 e, See Bobo MD - 03/06/2016 8:07 AM PDT Progress Notes by See Dangelo MD at 03/06/16 0807 Author: See Dangelo MD Service: Cardiology Author Type: Physician Filed: 03/07/16 0807 Date of Service: 03/06/16806 Status: Addendum Whitesmith: See Dangelo MD (Physician) Related Notes: Original Note by See Dangelo MD (Physician) filed at 03/06/16 5400 [facility] Service: Cardiology Progress Note Hospital Day: LOS: 3 days Post-Op Day: * No surgery found * SUBJECTIVE Patient Summary: 70M followed by Aki Germain D.O., at our [place] office for sev ere aortic stenosis, and Sweta Ly MD for stage IV chronic kidney disease. Because of wo rsening renal function, he had a right brachiocephalic AV fistula created by Dr. Dias on 03/01. After being discharged following that procedure, he was home for a short time, and note d that he had decreased appetite, and felt "bloated". 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 There is no orthopnea or PND. There was no chest pain, pressure or discomfort, no palpitations. He came to the em ergency room. Supplemental oxygen helped the dyspnea. He was given IV Lasix, but has urinate d only a scant amount. He is currently relatively asymptomatic. His chest x-ray showed evid ence of bilateral pulmonary edema. His troponin was elevated at 1.8, consistent with an acut e NSTEMI. His EKG shows only mild anterolateral ST abnormalities, and frequent unifocal PVCs , which were not present on an EKG 2 days ago. He has been hemodynamically stable. Cardi ac catheterization revealed only moderate aortic stenosis by cath criteria, with a repeat ec hocardiogram pending. He also has moderate 3-vessel CAD. He will be seen by Jesús Pantoja MD, for consideration of AVR and coronary bypass. He had a tunneled right internal jugular d ialysis catheter placed by Efrain Navarro MD, and underwent HD Fri. and .. He had AFib intial HD, spontaneously converted to NSR. Events Overnight: AFib with intial HD, currently in NSR Past Medical History Diagnosis Date Hypertension Hyperlipidemia Diabetes mellitus, type 2 (HCC) 2005 Insulin-requiring, with diabetic Nephropathy, Retinopathy Sleep apnea dx light apnea Chronic kidney disease Stage IV-V Anemia of chronic renal failure 01/24/2012 Acute upper GI bleed 01/18/2014 PUD on EGD, ulcer cauterized Stroke ([facility]) 2010 right surface stroke, residual left hand numbness/tingling Acute diastolic congestive heart failure (HCC) 03/03/2016 Aortic valve stenosis, severe Vitamin D deficiency Skin cancer NSTEMI (non-ST elevated myocardial infarction) ([facility]) 03/03/2016 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 Esophagogastroduodenoscopy N/A 01/18/2014 Procedure: ESOPHAGOGASTRODUODENOSCOPY; Surgeon: Caitlyn Khan MD; Location: [facility]; Service: Gastroenterology; Laterality: N/A; Av fistula placement Right 03/01/2016 Procedure: AV FISTULA; Surgeon: Vivek Dias MD; Location: [facility]; Service: Vascul ar; Laterality: Right; brachiocephalic fistula creation Skin cancer excision mid forehead Allergies Allergen Reactions Penicillins Rash Reacted with a rash as a child. Has not had penicillins since. Gemfibrozil Nausea and Vomiting Questran [Cholestyramine] Nausea and Vomiting Scheduled Medications amLODIPine 5 mg Oral Daily aspirin 81 mg Oral Daily with breakfast atorvastatin 80 mg Oral Nightly carvedilol 6.25 mg Oral BID WC cholecalciferol 1,000 Units Oral QPM diphenhydrAMINE 50 mg Oral Once famotidine 20 mg Oral Once heparin (porcine) Intracatheter Daily hydrALAZINE 10 mg Oral TID insulin glargine 60 Units Subcutaneous QAM lidocaine 40 mL Intradermal Once lidocaine-EPINEPHrine 1 mL Infiltration Once pantoprazole 40 mg Intravenous BID sevelamer 800 mg Oral TID WC sitagliptan 25 mg Oral Daily sodium bicarbonate 650 mg Oral 4x Daily terazosin 10 mg Oral Nightly Continuous Infusions sodium chloride (IV) 50 mL/hr at 03/05/16 1259 PRN Medications acetaminophen OR acetaminophen, heparin (porcine) 5000 unit/0.5mL, heparin (porcine) 50 00 unit/0.5mL, HYDROcodone-acetaminophen OR HYDROcodone-acetaminophen, nitroGLYCERIN, on dansetron OR ondansetron, polyethylene glycol OBJECTIVE Vital Signs: BP 133/68 mmHg | Pulse 85 | Temp(Src) 98.5 F (36.9 C) (Oral) | Resp 18 | Ht 1.753 m (5' 9") | Wt 95.1 kg (209 lb 10.5 oz) | BMI 30.95 kg/m2 | SpO2 95% Temp: [97.9 F (36.6 C)-99.5 F (37.5 C)] 98.5 F (36.9 C) (03/06 711) BP: (97-133)/(56-72) 133/68 mmHg (03/06 711) Heart Rate: [76-108] 85 (03/06 711) Resp: [18-24] 18 (03/06 711) SpO2: [94 %-97 %] 95 % (03/06 711) Weight: [95.1 kg (209 lb 10.5 oz)-96.7 kg (213 lb 3 oz)] 95.1 kg (209 lb 10.5 oz) (03/06 0 302) TELEMETRY: NSR I/O: 3147 / 3050, net -2888 since admission GENERAL: Morbidly obeseWell developed, well nourished elderly male, in no distr ess. Appears approximately stated age. HEENT: Normocephalic, atraumatic. EYES: Well healed iridectomies. PERRL, sclerae anicteric, no xanthelsasmas MOUTH: Oral mucosae moist, dentition adequate, no lesions noted NECK: Tunneled RIJV HD catheter. No JVD, lymphadenopathy, thyromegaly, bruits. Car otid pulses are 1+ bilaterally and delayed LUNGS: Diffusely decreased breath sounds anteriorly and laterally, with no rales, rhonchi , minimal diffuse expiratory wheezing noted, respirations unlabored HEART: Nondisplaced PMI, regular rate and rhythm, S1 normal, S2 diminished but audible. 2-3/6 late peaking systolic crescendo decrescendo murmur at the base, radiating to the left sternal border. No rubs or gallops noted. ABDOMEN: Obese. Soft, nontender, no organomegaly, masses or bruits. Bowel sounds are no rmal in all 4 quadrants. The abdominal aortic pulsation is not palpable. EXTREMITIES: 1+ ankle edema bilaterally. Radial pulses 2+ on the left, nonpalpable on the right, where a brachiocephalic AV fistula surgical site is bandaged, but has a palpable thr ill. Femoral pulses are 2+ bilaterally without bruits. DP and PT pulses are 1+ bilateral ly. SKIN: Warm and dry, capillary refill is normal, no lesions. NEUROLOGIC: Awake, alert and oriented x 3. No focal motor deficits. PSYCHIATRIC: Appropriate, affect appears normal DATA ECHO (03/05/16): 1. This was a technically difficult study with suboptimal views. 2. Overall left ventricular systolic function is moderate-severely impaired with, an EF bet ween 30 - 35 %. 3. The right ventricle is mildly enlarged, but right ventricular systolic function is meseret l. 4. The left atrium is markedly dilated. 5. There is severe aortic stenosis present. 6. There is moderate pulmonary hypertension. The right ventricular systolic pressure (pul monary artery systolic pressure), as measured by Doppler, is 55 mm Hg. CBC: Lab Results Component Value Date WBC 8.91 03/06/2016 RBC 2.95* 03/06/2016 HGB 8.5* 03/06/2016 HGB 9.9* 08/28/2015 HCT 25.6* 03/06/2016 MCV 86.6 03/06/2016 MCH 28.7 03/06/2016 MCHC 33.1 03/06/2016 RDW 44.6 03/06/2016 PLT 124* 03/06/2016 MPV 11.1 03/06/2016 DIFFTYPE AUTOMATED 03/05/2016 CMP: Lab Results Component Value Date NA 141 03/06/2016 K 3.8 03/06/2016 CL 103 03/06/2016 CO2 27 03/06/2016 ANIONGAP 15 03/06/2016 GLUF 132* 03/06/2016 BUN 43* 03/06/2016 CREATININE 5.8* 03/06/2016 CREATININE 5.79* 11/22/2015 BCR 7 03/06/2016 CA 8.2* 03/06/2016 CA 9.7 09/11/2015 PROT 5.9* 03/05/2016 ALB 2.6* 03/05/2016 GLOB 3.3 03/05/2016 BILITOT 0.3 03/05/2016 ALP 37 03/05/2016 AST 27 03/05/2016 ALT 9* 03/05/2016 EGFR 10* 03/06/2016 LIPID PANEL: TC-113, LDL-42, HDL-41, TG-149 PROBLEM LIST Principal Problem: NSTEMI (non-ST elevated myocardial infarction) ([facility]) Active Problems: Type 2 diabetes mellitus with diabetic nephropathy ([facility]) Essential hypertension, benign Obesity Anemia of chronic renal failure, stage 5 ([facility]) Aortic stenosis Acute diastolic congestive heart failure ([facility]) ESRD (end stage renal disease) ([facility]) Difficulty in walking Debility, unspecified 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 Acute NSTEMI, Killip class II, hemodynamically stable. Cardiac catheterization revealed moderate 3-vessel CAD, with the worst lesion in the 1st diagonal branch. He has been started on aspirin, Coreg and losartan. 2. Severe aortic stenosis by echocardiography last month, confirmed on a repeat study yeste , with ZEKE 0.97 cm sq, peak transvalvular velocity measured at 4.1 m/s, an indicator of severe . The was only moderate by cardiac catheterization criteria. He is to be discu ssed in cardiac cath conference Friday AM as he is a high risk case for surgery: STS Surgical Risk score for AVR + CABG: -- Mortality-10.88% -- Morbidity or mortality-46.1% -- Long length of stay-29.76% -- Stroke-4.75% -- Prolonged ventilation-34% -- Sternotomy infection-2.36% -- Need for reoperation-14.4% 3. Dilated Cardiomyopathy, EF 30-35% on echo, likely mixed ischemic and non-ischemic etiolo gy 4. Stage V chronic kidney disease, right upper extremity brachiocephalic AV fistula created 03/01/16, but it will be sometime before this can be used. [facility], and hemodialysis will to be started on this admission. 5. 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 Essential hypertension, controlled 8. Moderate Pulmonary HTN, likely secondary to # 2, 3, 8 7. History of a right CVA, with minimal residual left arm numbness and tingling, but no oth er residual deficits. 8. Mild obstructive sleep apnea, untreated 9. Moderately severe anemia, due to chronic kidney disease. 10. Paroxysmal Atrial Fibrillation with his initial HD session, maintaining NSR since then. 11. Hyperlipidemia, with metabolic syndrome, well controlled Disposition: For dialysis access today. Cardiothoracic surgical evaluation pending at this time. Repeat echocardiogram pending at this time. Code Status: Full Code See Dangelo MD 03/06/2016 inci, MD Ruben - 03/06/2016 7:55 AM PDT Progress Notes by Ruben Chanel MD at 03/06/16 0755 Author: Ruben Chanel MD Service: Hospitalist Author Type: Physician Filed: 03/06/16 1356 Date of Service: 03/06/16 0759 Status: Addendum Whitesmith: Ruben Chanel MD (Physician) Related Notes: Original Note by Ruben Chanel MD (Physician) filed at 03/06/16 0802 [facility] Service: Hospitalist Progress Note Brianna Vital 70 y.o. [id number] male [place] Hospital Day: LOS: 3 days SUBJECTIVE Patient Summary: Signed out note:" Patient is a 70 year old male with with past medical history of CKD Stage 5, S/P Fistula Fo rmation on 03/01/[address] Dias, CHF, Diastolic Dysfunction, HTN, HLD and DM Type 2 who was admitted due to increasing dyspnea and decreased urinary out put. Labs showed elevated at 1 .8, consistent with an acute NSTEMI while EKG showed only mild anterolateral ST abnormalitie s and frequent unifocal PVCs. CMP revealed elevated Creatinine of 8 and GFR of 7. Cardiology and Nephrology services were consulted, started on oxygen and IV Lasix with minimal improve ment. His CXR showed evidence of bilateral pulmonary edema. S/P Cardiac catheterization by Maycol Dangelo today and found to have moderate three vessel disease and severe aortic stenosis. C T surgery consulted and Dr. Pantoja is following while Dr. Navarro will place dialysis catheter today. " Events Overnight: - Right IJ hemodialysis catheter placed on , patient underwent his first hemodialysis on And 2nd on , BiPAP has been weaned off and presently on 2 L . presently on 2 L indicates breathing much improved. Patient indicates feeling hungry asking to eat. presently he denies any chest pain no cough no abdominal pain. Scheduled Medications amLODIPine 5 mg Oral Daily aspirin 81 mg Oral Daily with breakfast atorvastatin 80 mg Oral Nightly carvedilol 6.25 mg Oral BID WC cholecalciferol 1,000 Units Oral QPM diphenhydrAMINE 50 mg Oral Once famotidine 20 mg Oral Once heparin (porcine) Intracatheter Daily hydrALAZINE 10 mg Oral TID insulin glargine 60 Units Subcutaneous QAM lidocaine 40 mL Intradermal Once lidocaine-EPINEPHrine 1 mL Infiltration Once pantoprazole 40 mg Intravenous BID sevelamer 800 mg Oral TID WC sitagliptan 25 mg Oral Daily sodium bicarbonate 650 mg Oral 4x Daily terazosin 10 mg Oral Nightly Continuous Infusions sodium chloride (IV) 50 mL/hr at 03/05/16 1259 PRN Medications acetaminophen OR acetaminophen, heparin (porcine) 5000 unit/0.5mL, heparin (porcine) 50 00 unit/0.5mL, HYDROcodone-acetaminophen OR HYDROcodone-acetaminophen, nitroGLYCERIN, on dansetron OR ondansetron, polyethylene glycol Allergy: Allergies Allergen Reactions Penicillins Rash Reacted with a rash as a child. Has not had penicillins since. Gemfibrozil Nausea and Vomiting Questran [Cholestyramine] Nausea and Vomiting OBJECTIVE Vital Signs: BP 133/68 mmHg | Pulse 85 | Temp(Src) 98.5 F (36.9 C) (Oral) | Resp 18 | Ht 1.753 m (5' 9") | Wt 95.1 kg (209 lb 10.5 oz) | BMI 30.95 kg/m2 | SpO2 95% I&O Detailed Table: I/O last 3 completed shifts: In: 4547 [P.O.:345; I.V.:1302; Other:2900] Out: 6650 [Urine:250; Other:6400] Weight change: -5.9 kg (-13 lb 0.1 oz) Hemodynamics Last 24hrs: Examination: Constitutional: Patient is alert and oriented. Appears frail but well-developed and not in acute distress at this time., On 2 L oxygen full speech HEENT: Head: Normocephalic and Atraumatic. Nose: Nose normal. Mouth/Throat: Oropharynx is clear and moist. Eyes: No conjunctiva injection. EOM Intact. PERRLA. No scleral icterus. Neck: Neck supple. No JVD present. No tracheal deviation present. No thyromegaly Cardiovascular: RRR, + Loud Systolic Murmur heard and no friction rub. Pulmonary/Chest: Clear to auscultation Abdominal: Soft, BS present, no distension, no ascites. There is no rebound tenderness and no guarding. Musculoskeletal: Moves all limbs, No joint tenderness. Trace pedal edema. Neurological: No focal neurologic deficits. + Weakness and difficulty in walking, No CN de ficits. Skin: Skin is warm and dry. No rash noted. No erythema. No pallor. Psychiatric: No psychosis, Dysphoric affect, normal mood. Judgment is fair. LABS: Recent Results (from the past 24 hour(s)) POCT glucose Collection Time: 03/05/16 11:16 AM Result Value Ref Range GLUCOSE,POC SCREEN 251 (H) 65 - 99 mg/dL Echo cardiac adult complete Collection Time: 03/05/16 2:40 PM Result Value Ref Range LV EF 35 (LL) 50 - 70 % POCT glucose Collection Time: 03/05/16 4:09 PM Result Value Ref Range GLUCOSE,POC SCREEN 267 (H) 65 - 99 mg/dL POCT glucose Collection Time: 03/05/16 9:03 PM Result Value Ref Range GLUCOSE,POC SCREEN 159 (H) 65 - 99 mg/dL Basic metabolic panel Collection Time: 03/06/16 4:19 AM Result Value Ref Range SODIUM 141 135 - 145 mmol/L POTASSIUM 3.8 3.5 - 4.9 mmol/L CHLORIDE 103 99 - 109 mmol/L CO2 27 23 - 32 mmol/L ANION GAP AGAP 15 5 - 20 mmol/L GLUCOSE 132 (H) 65 - 99 mg/dL BUN 43 (H) 8 - 25 mg/dL CREATININE 5.8 (H) 0.70 - 1.30 mg/dL BUN/CREAT 7 CALCIUM 8.2 (L) 8.5 - 10.5 mg/dL EGFR 10 (L) >60 mL/min/1.73m2 CBC w/no Diff Collection Time: 03/06/16 4:19 AM Result Value Ref Range WBC 8.91 3.80 - 11.00 K/uL RBC 2.95 (L) 4.20 - 5.70 M/uL HGB 8.5 (L) 13.2 - 17.0 g/dL HCT 25.6 (L) 39.0 - 50.0 % MCV 86.6 80.0 - 100.0 fl MCH 28.7 27.0 - 34.0 pg MCHC 33.1 32.0 - 35.5 g/dL RDW SD 44.6 37 - 53 fl PLT 124 (L) 150 - 400 K/uL MPV 11.1 fl POCT glucose Collection Time: 03/06/16 5:11 AM Result Value Ref Range GLUCOSE,POC SCREEN 153 (H) 65 - 99 mg/dL PROBLEM LIST Principal Problem: NSTEMI (non-ST elevated myocardial infarction) ([facility]) Active Problems: Type 2 diabetes mellitus with diabetic nephropathy ([facility]) Essential hypertension, benign Obesity Anemia of chronic renal failure, stage 5 ([facility]) Aortic stenosis Acute diastolic congestive heart failure ([facility]) ESRD (end stage renal disease) ([facility]) Difficulty in walking Debility, unspecified 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 ([facility]) Paroxysmal atrial fibrillation ([facility]) ASSESSMENT & PLAN Acute Coronary Syndrome / NSTEMI: S/P Cardiac catheterization by Dr. Dangelo found to have mo derate three vessel disease and severe aortic stenosis. CT surgery consulted and Dr. Marquita cohen following for plans on surgery. Will continue Coreg, ASA, Lipitor and monitor closely. New onset atrial fibrillation/paroxysmal - Began during HD yesterday evening, presently sinus rhythm - Heart rate 100s Acute on Chronic systolic and diastolic CHF Dysfunction: - Echocardiogram EF 30-35 percent, severe aortic stenosis, moderate pulmonary hypertension Severe Aortic Stenosis: Chronic and worsening, this is contributing to his current symptom s of shortness of breath and volume overloaded state. He would need surgery AVR and Dr. Jayme warner is consulted. Will follow their recommendations. Chronic Kidney Disease, Stage V / ESRD: - Right IJ hemodialysis , also started with clinically improve - Again renal diet, fluid restriction 1000 mL/24hrs - Scheduling outpatient H date Diabetes Mellitus, Type 2: Blood sugars seems to be stable, will continue with Lantus with caution and give additional Humalog per SSI. Hypertension: BP seems to be stable at this time, will continue Coreg, Amlodipine and Hydra lazine as scheduled and monitor hemodynamics. Anemia of Chronic CKD: H&H is low at 8.6, no active bleeding at this time. Will continue to monitor CBC and transfuse as needed. Difficulty in Walking / Debility: Multifactorial, due to deconditioning and CHF exacerbati on, will involve PT services when stable and monitor. DVT prophylaxis with SCD's and Heparin. Discharge plans when stable and improved. His condition is guarded due to severe aortic johnna nosis, CHF exacerbation and ESRD. Antibiotics - Patient started on IV azithromycin and ceftriaxone, presently no signs of pneumonia leuko cytosis will discontinue and follow clinically Ruben Chanel MD 03/06/2016 onversion Transact ion, Provider Unknown - 03/05/2016 3:15 PM PDTFormatting of this note might be different fr om the original. Progress Notes by María Galindo at 03/05/16 3805 Author: María Galindo Service: (none) Author Type: Coordinator Filed: 03/05/16 1516 Date of Service: 03/05/16 5485 Status: Signed Whitesmith: María Galindo (Coordinator) Patient medical records sent to [facility] for placement at the [facility] . Once chair time is known I will chart, notify patient and care team. Thank you. onver rosie Transaction, Provider Unknown - 03/05/2016 12:47 PM PDT Progress Notes by Lisa Cam at 03/05/16 6827 Author: Lisa Cam Service: (none) Author Type: [place] Filed: 03/05/16 1247 Date of Service: 03/05/16 1247 Status: Signed Whitesmith: Lisa Cam (Audio Visual Director) GPS enrolled. See Jordan MD - 03/05/2016 7:55 AM PDTFormatting of this note might be different from the o riginal. Progress Notes by See Dangelo MD at 03/05/16 8051 Author: See Dangelo MD Service: Cardiology Author Type: Physician Filed: 03/05/16 2070 Date of Service: 03/05/16 4766 Status: Addendum Whitesmith: See Dangelo MD (Physician) Related Notes: Original Note by See Dangelo MD (Physician) filed at 03/05/16 3373 [facility] Service: Cardiology Progress Note Hospital Day: LOS: 2 days Post-Op Day: * No surgery found * SUBJECTIVE Patient Summary: 70 y.o. male is followed by Aki Germain D.O., at our [facility] severe aortic stenosis, and Sweta Ly MD for 's stage IV-5 chronic kidney disease. Because of worsening renal function, he had a right brachiocephalic AV fistula created by Maycol Dias on 03/01/16. After being discharged yesterday, he was home for a short time, and noted that he had decreased appetite, and felt "bloated". He was unable to urinate, and had sever e generalized weakness. Last night, around 9 PM, he developed increasing dyspnea. There is n o orthopnea or PND. There is no chest pain, pressure or discomfort, no palpitations. He came to the emergency room. Supplemental oxygen has helped the dyspnea. He was given IV Lasix, b ut has urinated only a scant amount, by his description. He is currently relatively asymptom atic, with only mild shortness of breath at present. His chest x-ray shows evidence of bilat eral pulmonary edema. His troponin was elevated at 1.8, consistent with an acute NSTEMI. His EKG shows only mild anterolateral ST abnormalities, and frequent unifocal PVCs, which were not present on an EKG 2 days ago. He is been hemodynamically stable. Cardiac catheteriza tion revealed only moderate aortic stenosis by cath criteria, with a repeat echocardiogram p ending. He also has moderate 3-vessel CAD. He will be seen by Jesús Pantoja MD, for consid eration of AVR and coronary bypass. He had a tunneled right internal jugular dialysis cathet er placed by Efrain Navarro MD, and underwent HD yesterday, and is again undergoing HD at this time. Events Overnight: AFib with intial HD, currently in NSR Past Medical History Diagnosis Date Hypertension Hyperlipidemia Diabetes mellitus, type 2 (HCC) 2005 Insulin-requiring, with diabetic Nephropathy, Retinopathy Sleep apnea dx light apnea Chronic kidney disease Stage IV-V Anemia of chronic renal failure 01/24/2012 Acute upper GI bleed 01/18/2014 PUD on EGD, ulcer cauterized Stroke ([facility]) 2010 right surface stroke, residual left hand numbness/tingling Acute diastolic congestive heart failure ([facility]) 03/03/2016 Aortic valve stenosis, severe Vitamin D deficiency Skin cancer NSTEMI (non-ST elevated myocardial infarction) ([facility]) 03/03/2016 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 Esophagogastroduodenoscopy N/A 01/18/2014 Procedure: ESOPHAGOGASTRODUODENOSCOPY; Surgeon: Caitlyn Khan MD; Location: [facility]; Service: Gastroenterology; Laterality: N/A; Av fistula placement Right 03/01/2016 Procedure: AV FISTULA; Surgeon: Vivek Dias MD; Location: [facility]; Service: Vascul ar; Laterality: Right; brachiocephalic fistula creation Skin cancer excision mid forehead Allergies Allergen Reactions Penicillins Rash Reacted with a rash as a child. Has not had penicillins since. Gemfibrozil Nausea and Vomiting Questran [Cholestyramine] Nausea and Vomiting Scheduled Medications amLODIPine 5 mg Oral Daily aspirin 81 mg Oral Daily with breakfast atorvastatin 80 mg Oral Nightly carvedilol 6.25 mg Oral BID WC cholecalciferol 1,000 Units Oral QPM diphenhydrAMINE 50 mg Oral Once famotidine 20 mg Oral Once heparin (porcine) Intracatheter Daily hydrALAZINE 10 mg Oral TID insulin glargine 60 Units Subcutaneous QAM lidocaine 40 mL Intradermal Once lidocaine-EPINEPHrine 1 mL Infiltration Once pantoprazole 40 mg Intravenous BID sevelamer 800 mg Oral TID WC sitagliptan 25 mg Oral Daily sodium bicarbonate 650 mg Oral 4x Daily terazosin 10 mg Oral Nightly Continuous Infusions sodium chloride (IV) 50 mL/hr at 03/04/16 1108 PRN Medications acetaminophen OR acetaminophen, heparin (porcine) 5000 unit/0.5mL, heparin (porcine) 50 00 unit/0.5mL, HYDROcodone-acetaminophen OR HYDROcodone-acetaminophen, nitroGLYCERIN, on dansetron OR ondansetron, polyethylene glycol OBJECTIVE Vital Signs: BP 112/65 mmHg | Pulse 108 | Temp(Src) 97.9 F (36.6 C) (Oral) | Resp 22 | Ht 1.753 m (5 ' 9") | Wt 97.8 kg (215 lb 9.8 oz) | BMI 31.83 kg/m2 | SpO2 94% Temp: [97.6 F (36.4 C)-99.3 F (37.4 C)] 97.9 F (36.6 C) (03/05 639) BP: (101-142)/(57-78) 112/65 mmHg (03/05 800) Heart Rate: [74-108] 108 (03/05 800) Resp: [17-22] 22 (03/05 639) SpO2: [92 %-100 %] 94 % (03/05 745) Weight: [97.8 kg (215 lb 9.8 oz)-102.6 kg (226 lb 3.1 oz)] 97.8 kg (215 lb 9.8 oz) (03/05 639) FiO2 : [40 %] 40 % (03/04 2215) GENERAL: Morbidly obeseWell developed, well nourished elderly male, in no distr ess. Appears approximately stated age. HEENT: Normocephalic, atraumatic. EYES: Well healed iridectomies. PERRL, sclerae anicteric, no xanthelsasmas MOUTH: Oral mucosae moist, dentition adequate, no lesions noted NECK: Tunneled RIJV HD catheter. No JVD, lymphadenopathy, thyromegaly, bruits. Car otid pulses are 1+ bilaterally and delayed LUNGS: Diffusely decreased breath sounds anteriorly and laterally, with no rales, rhonchi , minimal diffuse expiratory wheezing noted, respirations unlabored HEART: Nondisplaced PMI, regular rate and rhythm, S1 normal, S2 diminished but audible. 2-3/6 late peaking systolic crescendo decrescendo murmur at the base, radiating to the left sternal border. No rubs or gallops noted. ABDOMEN: Obese. Soft, nontender, no organomegaly, masses or bruits. Bowel sounds are no rmal in all 4 quadrants. The abdominal aortic pulsation is not palpable. EXTREMITIES: 1+ ankle edema bilaterally. Radial pulses 2+ on the left, nonpalpable on the right, where a brachiocephalic AV fistula surgical site is bandaged. Femoral pulses are 2 + bilaterally without bruits. DP and PT pulses are 1+ bilaterally. SKIN: Warm and dry, capillary refill is normal, no lesions. NEUROLOGIC: Awake, alert and oriented x 3. No focal motor deficits. PSYCHIATRIC: Appropriate, affect appears normal DATA CBC: Lab Results Component Value Date WBC 7.43 03/05/2016 RBC 2.94* 03/05/2016 HGB 8.6* 03/05/2016 HGB 9.9* 08/28/2015 HCT 25.0* 03/05/2016 MCV 85.1 03/05/2016 MCH 29.1 03/05/2016 MCHC 34.2 03/05/2016 RDW 43.8 03/05/2016 PLT 108* 03/05/2016 MPV 10.7 03/05/2016 DIFFTYPE AUTOMATED 03/05/2016 CMP: Lab Results Component Value Date NA 139 03/05/2016 K 4.1 03/05/2016 CL 104 03/05/2016 CO2 22* 03/05/2016 ANIONGAP 17 03/05/2016 GLUF 148* 03/05/2016 BUN 55* 03/05/2016 CREATININE 6.9* 03/05/2016 CREATININE 5.79* 11/22/2015 BCR 8 03/05/2016 CA 8.5 03/05/2016 CA 9.7 09/11/2015 PROT 5.9* 03/05/2016 ALB 2.6* 03/05/2016 GLOB 3.3 03/05/2016 BILITOT 0.3 03/05/2016 ALP 37 03/05/2016 AST 27 03/05/2016 ALT 9* 03/05/2016 EGFR 8* 03/05/2016 LIPID PANEL: TC-113, LDL-42, HDL-41, TG-149 PROBLEM LIST Principal Problem: NSTEMI (non-ST elevated myocardial infarction) ([facility]) Active Problems: Type 2 diabetes mellitus with diabetic nephropathy ([facility]) Essential hypertension, benign Obesity Anemia of chronic renal failure, stage 5 ([facility]) Aortic stenosis Acute diastolic congestive heart failure (HCC) ESRD (end stage renal disease) ([facility]) Difficulty in walking Debility, unspecified 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 ([facility]) Paroxysmal atrial fibrillation (HCC) ASSESSMENT & PLAN 1. Acute NSTEMI, [place] class II, hemodynamically stable. Cardiac catheterization revealed moderate 3-vessel coronary artery disease, with the worst lesion in diagonal branch. He has been started on aspirin, and Coreg. He is on losartan. 2. Severe aortic stenosis by echocardiography last month, with a repeat study pending. He told me it was attempted yesterday, but he could not have it done due to orthopnea. This wi ll be reattempted today, after volume removal in HD. The was only moderate by cardiac cat heterization criteria. 3. Stage V chronic kidney disease, right upper extremity brachiocephalic AV fistula created 2 days ago, but it will be sometime before this can be used. He will have a RIJV dialysis a ccess today, and hemodialysis will to be started on this admission. 4. Insulin requiring diabetes mellitus complicated by nephropathy and retinopathy 5. Essential hypertension, controlled 6. Hyperlipidemia, with metabolic syndrome, well controlled 7. History of a right costovertebral angle, with minimal residual left arm numbness and tin gling, but no other residual deficits. 8. Mild obstructive sleep apnea, untreated 9. Moderately severe anemia, due to chronic kidney disease. Disposition: For dialysis access today. Cardiothoracic surgical evaluation pending at this time. Repeat echocardiogram pending at this time. Code Status: Full Code See Dangelo MD 03/05/2016 inciRuben MD - 03/05/2016 7:47 AM PDT Progress Notes by Ruben Chanel MD at 03/05/16 8471 Author: Ruben Chanel MD Service: Hospitalist Author Type: Physician Filed: 03/05/16 154 Date of Service: 03/05/16746 Status: Addendum Whitesmith: Ruben Chanel MD (Physician) Related Notes: Original Note by Ruben Chanel MD (Physician) filed at 03/05/16 0806 [facility] Service: Hospitalist Progress Note Brianna Vital 70 y.o. [id number] male [facility] Hospital Day: LOS: 2 days SUBJECTIVE Patient Summary: Signed out note:" Patient is a 70 year old male with with past medical history of CKD Stage 5, S/P Fistula Fo rmation on 03/01/[address] Dias, CHF, Diastolic Dysfunction, HTN, HLD and DM Type 2 who was admitted due to increasing dyspnea and decreased urinary out put. Labs showed elevated at 1 .8, consistent with an acute NSTEMI while EKG showed only mild anterolateral ST abnormalitie s and frequent unifocal PVCs. CMP revealed elevated Creatinine of 8 and GFR of 7. Cardiology and Nephrology services were consulted, started on oxygen and IV Lasix with minimal improve ment. His CXR showed evidence of bilateral pulmonary edema. S/P Cardiac catheterization by Maycol Dangelo today and found to have moderate three vessel disease and severe aortic stenosis. C T surgery consulted and Dr. Pantoja is following while Dr. Navarro will place dialysis catheter today. " Events Overnight: - Right IJ hemodialysis catheter placed yesterday, patient underwent her first hemodialysis yesterday 2 L removed, presently undergoing a second hemodialysis, off BiPAP presently on 2 L indicates breathing much improved. Patient indicates feeling hungry asking to eat. New onset atrial fibrillation noted to after hemodialysis yesterday evening, presently he d enies any chest pain no cough no abdominal pain. Scheduled Medications amLODIPine 5 mg Oral Daily aspirin 81 mg Oral Daily with breakfast atorvastatin 80 mg Oral Nightly azithromycin 500 mg Intravenous Q24H carvedilol 6.25 mg Oral BID WC cefTRIAXone 1 g Intravenous Q24H cholecalciferol 1,000 Units Oral QPM diphenhydrAMINE 50 mg Oral Once famotidine 20 mg Oral Once heparin (porcine) Intracatheter Daily hydrALAZINE 10 mg Oral TID insulin glargine 60 Units Subcutaneous QAM lidocaine 40 mL Intradermal Once lidocaine-EPINEPHrine 1 mL Infiltration Once pantoprazole 40 mg Intravenous BID sevelamer 800 mg Oral TID WC sitagliptan 25 mg Oral Daily sodium bicarbonate 650 mg Oral 4x Daily terazosin 10 mg Oral Nightly Continuous Infusions sodium chloride (IV) 50 mL/hr at 03/04/16 1108 PRN Medications acetaminophen OR acetaminophen, heparin (porcine) 5000 unit/0.5mL, heparin (porcine) 50 00 unit/0.5mL, HYDROcodone-acetaminophen OR HYDROcodone-acetaminophen, nitroGLYCERIN, on dansetron OR ondansetron, polyethylene glycol, zolpidem Allergy: Allergies Allergen Reactions Penicillins Rash Reacted with a rash as a child. Has not had penicillins since. Gemfibrozil Nausea and Vomiting Questran [Cholestyramine] Nausea and Vomiting OBJECTIVE Vital Signs: BP 113/60 mmHg | Pulse 101 | Temp(Src) 97.9 F (36.6 C) (Oral) | Resp 22 | Ht 1.753 m (5 ' 9") | Wt 97.8 kg (215 lb 9.8 oz) | BMI 31.83 kg/m2 | SpO2 92% I&O Detailed Table: I/O last 3 completed shifts: In: 1400 [Other:1400] Out: 4925 [Urine:1525; Other:3400] Weight change: 1.448 kg (3 lb 3.1 oz) Hemodynamics Last 24hrs: Examination: Constitutional: Patient is alert and oriented. Appears frail but well-developed and not in acute distress at this time., On 2 L oxygen flow speech HEENT: Head: Normocephalic and Atraumatic. Nose: Nose normal. Mouth/Throat: Oropharynx is clear and moist. Eyes: No conjunctiva injection. EOM Intact. PERRLA. No scleral icterus. Neck: Neck supple. No JVD present. No tracheal deviation present. No thyromegaly Cardiovascular: RRR, + Loud Systolic Murmur heard and no friction rub. Pulmonary/Chest: Clear to auscultation Abdominal: Soft, BS present, no distension, no ascites. There is no rebound tenderness and no guarding. Musculoskeletal: Moves all limbs, No joint tenderness. Trace pedal edema. Neurological: No focal neurologic deficits. + Weakness and difficulty in walking, No CN de ficits. Skin: Skin is warm and dry. No rash noted. No erythema. No pallor. Psychiatric: No psychosis, Dysphoric affect, normal mood. Judgment is fair. LABS: Recent Results (from the past 24 hour(s)) Electrocardiogram, 12-lead on return to unit Collection Time: 03/04/16 11:19 AM Result Value Ref Range Ventricular Rate 84 BPM Atrial Rate 84 BPM P-R Interval 188 ms QRS Duration 104 ms Q-T Interval 376 ms QTC Calculation (Bezet) 444 ms Calculated P [place] 36 degrees Calculated R [place] 62 degrees Calculated T [place] 114 degrees Diagnosis Normal sinus rhythm Left ventricular hypertrophy with repolarization abnormality Abnormal ECG When compared with ECG of 03-MAR-2016 09:11, Premature ventricular complexes are no longer Present QT has shortened Confirmed by ROMA CAMEJO ([id number]) on 03/04/2016 9:38:29 PM POCT glucose Collection Time: 03/04/16 11:21 AM Result Value Ref Range GLUCOSE,POC SCREEN 175 (H) 65 - 99 mg/dL POCT glucose Collection Time: 03/04/16 4:03 PM Result Value Ref Range GLUCOSE,POC SCREEN 188 (H) 65 - 99 mg/dL POCT glucose Collection Time: 03/04/16 6:42 PM Result Value Ref Range GLUCOSE,POC SCREEN 174 (H) 65 - 99 mg/dL POC Arterial Blood Gas Collection Time: 03/04/16 6:42 PM Result Value Ref Range POC FIO2 100 % pH, Art 7.312 (L) 7.350 - 7.450 POC PCO2 40 35 - 45 mmHg POC p02 120 (H) 80 - 105 mmHg POC HCO3 20 (L) 22 - 26 mmol/L POC TCO2 22 (L) 23 - 27 mEq/L POC BASE DEFICIT 6 (H) 0.0 - 2.0 mmol/L POC S02 98 95 - 98 % POCT glucose Collection Time: 03/04/16 9:17 PM Result Value Ref Range GLUCOSE,POC SCREEN 144 (H) 65 - 99 mg/dL Hepatitis B surface antigen Collection Time: 03/04/16 9:21 PM Result Value Ref Range HEP B SURFACE AG NON REACTIVE NON REACTIVE Lipid panel Collection Time: 03/05/16 4:04 AM Result Value Ref Range CHOLESTEROL 113 <200 mg/dL Triglycerides 149 <150 mg/dL HDL CHOL 41 >40 mg/dL LDL CALC 42 <100 mg/dL CBC W/Auto Diff (Reflex to Manual) Collection Time: 03/05/16 4:04 AM Result Value Ref Range WBC 7.43 3.80 - 11.00 K/uL RBC 2.94 (L) 4.20 - 5.70 M/uL HGB 8.6 (L) 13.2 - 17.0 g/dL HCT 25.0 (L) 39.0 - 50.0 % MCV 85.1 80.0 - 100.0 fl MCH 29.1 27.0 - 34.0 pg MCHC 34.2 32.0 - 35.5 g/dL RDW SD 43.8 37 - 53 fl PLT 108 (L) 150 - 400 K/uL MPV 10.7 fl DIFF TYPE AUTOMATED NEUTROPHILS 80.72 % LYMPHOCYTES 7.58 % MONOCYTES 10.81 % EOSINOPHILS 0.41 % BASOPHILS 0.48 % NEUTROPHILS ABS 6.00 1.90 - 7.40 K/uL LYMPHOCYTES ABS 0.56 (L) 1.00 - 3.90 K/uL MONOCYTES ABS 0.80 0.00 - 0.80 K/uL EOSINOPHILS ABS 0.03 0.00 - 0.50 K/uL BASOPHILS ABS 0.04 0.00 - 0.10 K/uL Comprehensive metabolic panel Collection Time: 03/05/16 4:04 AM Result Value Ref Range SODIUM 139 135 - 145 mmol/L POTASSIUM 4.1 3.5 - 4.9 mmol/L CHLORIDE 104 99 - 109 mmol/L CO2 22 (L) 23 - 32 mmol/L ANION GAP AGAP 17 5 - 20 mmol/L GLUCOSE 148 (H) 65 - 99 mg/dL BUN 55 (H) 8 - 25 mg/dL CREATININE 6.9 (H) 0.70 - 1.30 mg/dL BUN/CREAT 8 CALCIUM 8.5 8.5 - 10.5 mg/dL TOTAL PROTEIN 5.9 (L) 6.3 - 8.2 g/dL Albumin 2.6 (L) 3.3 - 4.8 g/dL GLOBULIN 3.3 1.3 - 4.9 g/dL A/G 0.8 (L) 1.0 - 2.4 TBIL 0.3 0.1 - 1.5 mg/dL ALK PHOS 37 35 - 115 U/L AST 27 10 - 45 U/L ALT 9 (L) 10 - 65 U/L EGFR 8 (L) >60 mL/min/1.73m2 POCT glucose Collection Time: 03/05/16 5:28 AM Result Value Ref Range GLUCOSE,POC SCREEN 151 (H) 65 - 99 mg/dL PROBLEM LIST Principal Problem: NSTEMI (non-ST elevated myocardial infarction) (FORMERLY [facility]) Active Problems: Type 2 diabetes mellitus with diabetic nephropathy ([facility]) Essential hypertension, benign Obesity Anemia of chronic renal failure, stage 5 ([facility]) Aortic stenosis Acute diastolic congestive heart failure ([facility]) ESRD (end stage renal disease) ([facility]) Difficulty in walking Debility, unspecified ASSESSMENT & PLAN Acute Coronary Syndrome / NSTEMI: S/P Cardiac catheterization by Dr. Dangelo found to have mo derate three vessel disease and severe aortic stenosis. CT surgery consulted and Dr. Marquita cohen following for plans on surgery. Will continue Coreg, ASA, Lipitor and monitor closely. New onset atrial fibrillation/paroxysmal - Began during HD yesterday evening, presently sinus rhythm - Heart rate 100s Acute on Chronic CHF, Diastolic Dysfunction: Echo could not be done today due to shortness of breath and positioning issues. He did not respond to high doses of Lasix , improved with start of HD. Will continue Coreg and hold ASIYA or ARB's due to high creatinine. Severe Aortic Stenosis: Chronic and worsening, this is contributing to his current symptom s of shortness of breath and volume overloaded state. He would need surgery AVR and Dr. Jayme warner is consulted. Will follow their recommendations. Chronic Kidney Disease, Stage V / ESRD: - Right IJ hemodialysis catheter placed yesterday, began hemodialysis yesterday, and again today clinically improve - Again renal diet, fluid restriction 1000 mL/24hrs Diabetes Mellitus, Type 2: Blood sugars seems to be stable, will continue with Lantus with caution and give additional Humalog per SSI. Hypertension: BP seems to be stable at this time, will continue Coreg, Amlodipine and Hydra lazine as scheduled and monitor hemodynamics. Anemia of Chronic CKD: H&H is low at 8.6, no active bleeding at this time. Will continue to monitor CBC and transfuse as needed. Difficulty in Walking / Debility: Multifactorial, due to deconditioning and CHF exacerbati on, will involve PT services when stable and monitor. DVT prophylaxis with SCD's and Heparin. Discharge plans when stable and improved. His condition is guarded due to severe aortic johnna nosis, CHF exacerbation and ESRD. Antibiotics - Patient started on IV azithromycin and ceftriaxone, presently no signs of pneumonia leuko cytosis will discontinue and follow clinically Ruben Chanel MD 03/05/2016 onversion Transact ion, Provider Unknown - 03/05/2016 6:01 AM PDTFormatting of this note might be different fr om the original. Nurse Progress Note by Jen Marrero RN at 03/05/16600 Author: Jen Marrero RN Service: (none) Author Type: Registered Nurse Filed: 03/05/16636 Date of Service: 03/05/16600 Status: Signed Whitesmith: Jen Marrero RN (Registered Nurse) Pt off bipap at approximately 2300. Currently on 2L nasal canula. Tolerating well and O2% a t 96%. At 0430 tele called to report pt in AFIB. Pt assessed and denies chest pain and SOB. Dr. Tamera shine notified, no further orders given. onver rosie Transaction, Provider Unknown - 03/04/2016 9:28 PM PDT Progress Notes by Samir Means RPH at 03/04/162127 Author: Samir Means RPH Service: (none) Author Type: Pharmacist Filed: 03/04/162127 Date of Service: 03/04/162127 Status: Signed Whitesmith: Samir Means RPH (Pharmacist) Mild childhood pcn reaction Rocephin sent rdc 2127 onver rosie Transaction, Provider Unknown - 03/04/2016 6:15 PM PDT Nurse Progress Note by Victoria Castro RN at 03/04/161814 Author: Victoria Castro RN Service: (none) Author Type: Registered Nurse Filed: 03/04/161909 Date of Service: 03/04/161814 Status: Signed Whitesmith: Victoria Castro RN (Registered Nurse) Patient back in room post right subclavian HD cath placement, requiring 15L/min of O2 per n on-re breather mask. Dr. Ayon and Dr. Miller notified. See chart for orders. VICTORIA KEITH RN 03/04/2016 6:15 PM onver rosie Transaction, Provider Unknown - 03/04/2016 4:05 PM PDT Nurse Progress Note by Victoria Castro RN at 03/04/16 1605 Author: Victoria Castro RN Service: (none) Author Type: Registered Nurse Filed: 03/04/16 1630 Date of Service: 03/04/16 1605 Status: Signed Whitesmith: Victoria Castro RN (Registered Nurse) Patient unable to lay still to complete ECHO, c/o shortness of breath, O2 sat 85% on 4L/min per NC. O2 administration incresased to 5L/min per NC with O2 sat reading now 95%. Lung britt nds are course with some crackles, diminished sounds on the R side. Dr. Ayon notified. Las ix order received. Hospitalist en route to evaluate patient at bedside. Patient's family upd ated on patient's status. VICTORIA CASTRO RN 03/04/2016 4:05 PM Cuate Morales MD - 03/04/2016 2:20 PM PDT Progress Notes by Cuate Espinosa MD at 03/04/16 1420 Author: Cuate Espinosa MD Service: (none) Author Type: Physician Filed: 03/04/16 1428 Date of Service: 03/04/16 1420 Status: Signed Whitesmith: Cuate Espinosa MD (Physician) Hospital Problem List: Principal Problem: Acute diastolic congestive heart failure (HCC) Active Problems: Type 2 diabetes mellitus with diabetic nephropathy (HCC) Essential hypertension, benign Diabetic nephropathy (HCC) Stroke (HCC) Overview: In 2010 Dyslipidemia Obesity Vitamin D deficiency Anemia of chronic renal failure, stage 5 (HCC) Aortic stenosis Chronic kidney disease, stage V (HCC) NSTEMI (non-ST elevated myocardial infarction) (HCC) The patient says that he feels 'SOB' today. he denies any CP. his urine output 900 ml. The following portions of the patient's history were reviewed and updated as appropriate: l aboratory data, radiologic studies, allergies, current medications, and problem list. As in History of Present Illness & Assessment below. All the pertinent systems were reviewe d and were otherwise negative. amLODIPine 5 mg Oral Daily aspirin 81 mg Oral Daily with breakfast atorvastatin 80 mg Oral Nightly carvedilol 6.25 mg Oral BID cholecalciferol 1,000 Units Oral QPM diphenhydrAMINE 50 mg Oral Once epoetin lakeisha 10,000 Units Intravenous Once in dialysis famotidine 20 mg Oral Once heparin (porcine) Intracatheter Daily hydrALAZINE 10 mg Oral TID insulin glargine 60 Units Subcutaneous QAM lidocaine 40 mL Intradermal Once pantoprazole 40 mg Intravenous BID sevelamer 800 mg Oral TID [START ON 03/05/2016] sitagliptan 25 mg Oral Daily sodium bicarbonate 650 mg Oral 4x Daily terazosin 10 mg Oral Nightly sodium chloride (IV) 50 mL/hr at 03/04/16 1108 P.E. BP 129/72 mmHg | Pulse 86 | Temp(Src) 97.6 F (36.4 C) (Oral) | Resp 19 | Ht 1.753 m (5' 9") | Wt 100.2 kg (220 lb 14.4 oz) | BMI 32.61 kg/m2 | SpO2 93% General appearance: Pleasant, not in acute distress. Neck: Supple without tracheal deviation or jugular venous distension. Head and ENT: Head is atraumatic. The oropharynx is without erythema or thrush. Eyes: Anicteric. The extraocular muscle movements are normal. Lungs: crackles to auscultation bilaterally. There are no wheezes. Heart: Regular rate and rhythm without any rub, gallop. Abdominal exam: Soft and nontender with normal bowel sounds. Musculoskeletal: No costovertebral angle tenderness bilaterally. Extremities: Warm to touch with leg edema. There is no cyanosis. Skin: There are no rashes, petechiae, or ecchymosis. Neurological: Awake, alert, and oriented to time, place, and person. Normal gross motor po wer. There is no asterixis. Psychiatric: The patient s behavior is normal. Judgment and thought content are normal. Lab Results Component Value Date BUN 69* 03/04/2016 CREATININE 8.6* 03/04/2016 EGFR 7* 03/04/2016 NA 140 03/04/2016 K 4.3 03/04/2016 CL 105 03/04/2016 CO2 20* 03/04/2016 CA 8.7 03/04/2016 PHOS 6.5* 03/04/2016 MG 2.4 03/04/2016 ALB 2.6* 03/04/2016 HGB 8.6* 03/04/2016 Assessment and Recommendations: Mr. Vital is a 70 y.o. male patient with LAKESHIA (acute kidney injury), that is in the set ting of CKD V, pulmonary edema. LAKESHIA. CKD V progressing to ESRD. No significant improvement clinicaly despite 160 mg IV Lasix X 2 I consulted vascular to place TDC and start HD today. I have discussed the plan with pt and family and they all agree Pulmonary edema. As above. HD with UF will help Troponinemia. Per cardiology, Cath done today shows diffuse vessel disease but no intervent ion required. Will Need Ctsx to evaluate for HTN. Carvedilol, lasix, Imdur. Hyperphosphatemia. Consider renal diet Anemia. Sec to CKD. Epo weekly, transfuse for Hb < 7 Dispo. Pt is from [facility], will make arrangement for HD with Dr. Ly there. 1. Advise fluid restriction of 1L per 24 hrs 2. get renal U/S. 3. Strict I/O & daily weights. 4. Dose all of his meds to his current estimated GFR. 5. Continue to avoid all kinds of nephrotoxins. I discussed with the hospital team the case at the time of this encounter. I spent 35 minutes today in interviewing & examining the patient, reviewing & updating the patient's chart, formulating a plan, in addition to patient education and discussions with t he primary/consulting team. CUATE ESPINOSA MD FACP onversion Transact ion, Provider Unknown - 03/04/2016 11:41 AM PDTFormatting of this note might be different fr om the original. Nurse Progress Note by Yanick Villagomez at 03/04/16 1141 Author: Yanick Villagomez Service: (none) Author Type: (none) Filed: 03/04/16 1141 Date of Service: 03/04/16 114 Status: Signed Whitesmith: Yanick Villagomez RN from [facility] reviewing chart regarding patient having [facility] with Telehealth services. Patient does not qualify at this time due to marlene ent being out of the service area. Case management to set up [facility] follow up support for C HF teaching. Stalin Serna MD - 03/04/2016 7:52 AM PDTFormatting of this note might be different from t nicole original. Progress Notes by Stalin Ayon MD at 03/04/16 075 Author: Stalin Ayon MD Service: Hospitalist Author Type: Physician Filed: 03/04/16 1658 Date of Service: 03/04/16751 Status: Signed Whitesmith: Stalin Ayon MD (Physician) [facility] Service: Hospitalist Progress Note Brianna Vital 70 y.o. [phone] [id number] male [facility] Day: LOS: 1 day SUBJECTIVE Patient Summary: Patient is a 70 year old male with with past medical history of CKD Stage 5, S/P Fistula Fo rmation on 03/01/[address] Dias, CHF, Diastolic Dysfunction, HTN, HLD and DM Type 2 who was admitted due to increasing dyspnea and decreased urinary out put. Labs showed elevated at 1 .8, consistent with an acute NSTEMI while EKG showed only mild anterolateral ST abnormalitie s and frequent unifocal PVCs. CMP revealed elevated Creatinine of 8 and GFR of 7. Cardiology and Nephrology services were consulted, started on oxygen and IV Lasix with minimal improve ment. His CXR showed evidence of bilateral pulmonary edema. S/P Cardiac catheterization by Maycol Dangelo today and found to have moderate three vessel disease and severe aortic stenosis. C T surgery consulted and Dr. Pantoja is following while Dr. Navarro will place dialysis catheter today. Events Overnight: Patient seen and examined. Overnight events noted. Patient reported feeling tired and fatig ued. Did not have any worsening shortness of breath at this time but has dyspnea off and on at rest. No chest pains at this tie but reported mild headaches without nausea or vomiting. Feeling less energetic and fatigued. Also denied abdominal pain, diarrhea or constipation. A ppetite is fair but kept NPO and asked for food if possible. Remained afebrile. Scheduled Medications amLODIPine 5 mg Oral Daily aspirin 81 mg Oral Daily with breakfast atorvastatin 80 mg Oral Nightly carvedilol 6.25 mg Oral BID cholecalciferol 1,000 Units Oral QPM clindamycin 600 mg Intravenous Once diphenhydrAMINE 50 mg Oral Once epoetin lakeisha 10,000 Units Intravenous Once in dialysis famotidine 20 mg Oral Once heparin (porcine) Intracatheter Daily hydrALAZINE 10 mg Oral TID insulin glargine 60 Units Subcutaneous QAM lidocaine 10 mL Intradermal Once lidocaine 40 mL Intradermal Once lidocaine-EPINEPHrine 1 mL Infiltration Once pantoprazole 40 mg Intravenous BID sevelamer 800 mg Oral TID [START ON 03/05/2016] sitagliptan 25 mg Oral Daily sodium bicarbonate 650 mg Oral 4x Daily terazosin 10 mg Oral Nightly Continuous Infusions sodium chloride (IV) 50 mL/hr at 03/04/16 1108 PRN Medications acetaminophen OR acetaminophen, heparin (porcine) 5000 unit/0.5mL, heparin (porcine) 50 00 unit/0.5mL, HYDROcodone-acetaminophen OR HYDROcodone-acetaminophen, nitroGLYCERIN, on dansetron OR ondansetron, polyethylene glycol, zolpidem Allergy: Allergies Allergen Reactions Penicillins Other (See Comments) Gemfibrozil Nausea and Vomiting Questran [Cholestyramine] Nausea and Vomiting OBJECTIVE Vital Signs: BP 142/71 mmHg | Pulse 90 | Temp(Src) 98.5 F (36.9 C) (Oral) | Resp 20 | Ht 1.753 m (5' 9") | Wt 100.2 kg (220 lb 14.4 oz) | BMI 32.61 kg/m2 | SpO2 98% I&O Detailed Table: I/O last 3 completed shifts: In: 840 [P.O.:840] Out: 925 [Urine:925] Weight change: Hemodynamics Last 24hrs: Examination: Constitutional: Patient is alert and oriented. Appears frail but well-developed and not in acute distress at this time. HEENT: Head: Normocephalic and Atraumatic. Nose: Nose normal. Mouth/Throat: Oropharynx is clear and moist. Eyes: No conjunctiva injection. EOM Intact. PERRLA. No scleral icterus. Neck: Neck supple. No JVD present. No tracheal deviation present. No thyromegaly Cardiovascular: RRR, + Loud Systolic Murmur heard and no friction rub. Pulmonary/Chest: + Rales at he bases, no wheezes at this time. Abdominal: Soft, BS present, no distension, no ascites. There is no rebound tenderness and no guarding. Musculoskeletal: Moves all limbs, No joint tenderness. Trace pedal edema. Neurological: No focal neurologic deficits. + Weakness and difficulty in walking, No CN de ficits. Skin: Skin is warm and dry. No rash noted. No erythema. No pallor. Psychiatric: No psychosis, Dysphoric affect, normal mood. Judgment is fair. LABS: Recent Results (from the past 24 hour(s)) POCT glucose Collection Time: 03/03/16 5:16 PM Result Value Ref Range GLUCOSE,POC SCREEN 179 (H) 65 - 99 mg/dL Troponin I Collection Time: 03/03/16 6:48 PM Result Value Ref Range TROPONIN I 4.36 (HH) 0.00 - 0.10 ng/mL CK MB Collection Time: 03/03/16 6:48 PM Result Value Ref Range MMB 19.6 (H) 0.5 - 3.6 ng/mL CK-MB Index 4.6 CPK Collection Time: 03/03/16 6:48 PM Result Value Ref Range CPK 422 (H) 55 - 400 U/L APTT Collection Time: 03/03/16 6:48 PM Result Value Ref Range APTT 33 (H) 23 - 32 seconds POCT glucose Collection Time: 03/03/16 9:18 PM Result Value Ref Range GLUCOSE,POC SCREEN 192 (H) 65 - 99 mg/dL Troponin I Collection Time: 03/03/16 11:54 PM Result Value Ref Range TROPONIN I 4.57 (HH) 0.00 - 0.10 ng/mL CK MB Collection Time: 03/03/16 11:54 PM Result Value Ref Range MMB 18.2 (H) 0.5 - 3.6 ng/mL CK-MB Index 4.1 CPK Collection Time: 03/03/16 11:54 PM Result Value Ref Range CPK 443 (H) 55 - 400 U/L aPTT - Q6 starting in 6 hours x 2 Collection Time: 03/03/16 11:54 PM Result Value Ref Range APTT 35 (H) 23 - 32 seconds MRSA by PCR Collection Time: 03/04/16 4:54 AM Result Value Ref Range SOURCE NARES(NOSE) MRSA PCR NEGATIVE NEGATIVE POCT glucose Collection Time: 03/04/16 5:34 AM Result Value Ref Range GLUCOSE,POC SCREEN 176 (H) 65 - 99 mg/dL CBC W/Auto Diff (Reflex to Manual) Collection Time: 03/04/16 5:50 AM Result Value Ref Range WBC 9.81 3.80 - 11.00 K/uL RBC 2.99 (L) 4.20 - 5.70 M/uL HGB 8.6 (L) 13.2 - 17.0 g/dL HCT 25.4 (L) 39.0 - 50.0 % MCV 84.9 80.0 - 100.0 fl MCH 28.9 27.0 - 34.0 pg MCHC 34.0 32.0 - 35.5 g/dL RDW SD 42.9 37 - 53 fl PLT 122 (L) 150 - 400 K/uL MPV 10.4 fl DIFF TYPE AUTOMATED NEUTROPHILS 82.96 % LYMPHOCYTES 7.31 % MONOCYTES 8.93 % EOSINOPHILS 0.18 % BASOPHILS 0.62 % NEUTROPHILS ABS 8.14 (H) 1.90 - 7.40 K/uL LYMPHOCYTES ABS 0.72 (L) 1.00 - 3.90 K/uL MONOCYTES ABS 0.88 (H) 0.00 - 0.80 K/uL EOSINOPHILS ABS 0.02 0.00 - 0.50 K/uL BASOPHILS ABS 0.06 0.00 - 0.10 K/uL Magnesium Collection Time: 03/04/16 5:50 AM Result Value Ref Range MAGNESIUM 2.4 1.7 - 2.4 mg/dL Phosphorus Collection Time: 03/04/16 5:50 AM Result Value Ref Range PHOSPHORUS 6.5 (H) 2.3 - 4.8 mg/dL Comprehensive Metabolic Panel Collection Time: 03/04/16 5:50 AM Result Value Ref Range SODIUM 140 135 - 145 mmol/L POTASSIUM 4.3 3.5 - 4.9 mmol/L CHLORIDE 105 99 - 109 mmol/L CO2 20 (L) 23 - 32 mmol/L ANION GAP AGAP 19 5 - 20 mmol/L GLUCOSE 166 (H) 65 - 99 mg/dL BUN 69 (H) 8 - 25 mg/dL CREATININE 8.6 (H) 0.70 - 1.30 mg/dL BUN/CREAT 8 CALCIUM 8.7 8.5 - 10.5 mg/dL TOTAL PROTEIN 5.7 (L) 6.3 - 8.2 g/dL Albumin 2.6 (L) 3.3 - 4.8 g/dL GLOBULIN 3.1 1.3 - 4.9 g/dL A/G 0.8 (L) 1.0 - 2.4 TBIL 0.3 0.1 - 1.5 mg/dL ALK PHOS 38 35 - 115 U/L AST 25 10 - 45 U/L ALT 9 (L) 10 - 65 U/L EGFR 7 (L) >60 mL/min/1.73m2 Glycohemoglobin A1C Collection Time: 03/04/16 5:50 AM Result Value Ref Range HEMOGLOBIN A1C 6.8 (H) 4.0 - 6.0 % ESTIMATED AVG GLUCOSE 148 mg/dL TSH Collection Time: 03/04/16 5:50 AM Result Value Ref Range TSH 1.29 0.45 - 5.10 uIU/mL aPTT - Q6 starting in 6 hours x 2 Collection Time: 03/04/16 5:50 AM Result Value Ref Range APTT 31 23 - 32 seconds POCT glucose Collection Time: 03/04/16 11:21 AM Result Value Ref Range GLUCOSE,POC SCREEN 175 (H) 65 - 99 mg/dL POCT glucose Collection Time: 03/04/16 4:03 PM Result Value Ref Range GLUCOSE,POC SCREEN 188 (H) 65 - 99 mg/dL PROBLEM LIST Principal Problem: NSTEMI (non-ST elevated myocardial infarction) ([facility]) Active Problems: Anemia of chronic renal failure, stage 5 ([facility]) Aortic stenosis Acute diastolic congestive heart failure ([facility]) Type 2 diabetes mellitus with diabetic nephropathy ([facility]) Essential hypertension, benign Obesity ESRD (end stage renal disease) ([facility]) Difficulty in walking Debility, unspecified ASSESSMENT & PLAN Acute Coronary Syndrome / NSTEMI: S/P Cardiac catheterization by Dr. Dangelo today and found to have moderate three vessel disease and severe aortic stenosis. CT surgery consulted and Dr. Pantoja following for plans on surgery. Will continue Coreg, ASA, Lipitor and monitor cl osely. Acute on Chronic CHF, Diastolic Dysfunction: Echo could not be done today due to shortness of breath and positioning issues. He did not respond to high doses of Lasix and would benef it from hemodialysis for volume overloaded state. Will continue Coreg and hold ASIYA or ARB's due to high creatinine. Severe Aortic Stenosis: Chronic and worsening, this is contributing to his current symptom s of shortness of breath and volume overloaded state. He would need surgery AVR and Dr. Jayme warner is consulted. Will follow their recommendations. Chronic Kidney Disease, Stage V / ESRD: This has been a chronic issue and moving towards E SRD. Will need hemodialysis for volume overloaded state and CHF exacerbation, Nephrology nicola tran is on board and Dr. Espinosa has requested for Tunneled catheter for dialysis today. Michele l continue Renvela and Bicarbonate as scheduled and monitor. Diabetes Mellitus, Type 2: Blood sugars seems to be stable, will continue with Lantus with caution and give additional Humalog per SSI. Hypertension: BP seems to be stable at this time, will continue Coreg, Amlodipine and Hydra lazine as scheduled and monitor hemodynamics. Anemia of Chronic CKD: H&H is low at 8.6, no active bleeding at this time. Will continue to monitor CBC and transfuse as needed. Difficulty in Walking / Debility: Multifactorial, due to deconditioning and CHF exacerbati on, will involve PT services when stable and monitor. DVT prophylaxis with SCD's and Heparin. Discharge plans when stable and improved. His condition is guarded due to severe aortic johnna nosis, CHF exacerbation and ESRD. He may need ICU level of care if his condition deteriorate s or respiratory status compromises. Spent more than 35 minutes reviewing patient's labs, diagnostic tests, examination of patie nt, discussing plan of care with patient and family, coordination of care and answered their questions. STALIN AYON MD 03/04/2016 onversion Trans action, Provider Unknown - 03/03/2016 4:28 PM PDT Progress Notes by Mimi Casas RPH at 03/03/16 9464 Author: Mimi Casas RPH Service: (none) Author Type: Pharmacist Filed: 03/03/16 2409 Date of Service: 03/03/161627 Status: Signed Whitesmith: Mimi Casas RPH (Pharmacist) Renal Dosing Monitoring: Brianna Vital 70 y.o. male Pharmacy dosing for renal function per Dr. Haywood Estimated Creatinine Clearance: 9.7 mL/min (by C-G formula based on Cr of 8.2). Plan per protocol: Medication requiring adjustment: sitagliptin from 50 mg daily to 25 mg daily. No other changes needed. Pharmacy will continue monitoring patient for appropriate dosing per renal function. 03/03/2016 4:28 PM Pharmacist: Mimi Casas onver rosie Velazquezaction, Provider Unknown - 03/03/2016 3:04 PM PDT Case Management by CARLTON Galindo at 03/03/16 7593 Author: CARLTON Galindo Service: (none) Author Type: Report Programmer Filed: 03/03/16 1501 Date of Service: 03/03/168 Status: Signed Whitesmith: CARLTON Galindo (Report Programmer) 03/03/16 4937 Discharge Planning Evaluation Admitting Diagnosis (CHF) Readmission No Living Arrangements Alone;Spouse/significant other (Marcela Vital [phone]) Support Systems Family members;Friends/neighbors;Spouse/significant other (patient has strong social support, spouse and son Parth and NICO Retana in room during CM v isit) Type of Residence Private residence House type Apartment;House-1 story Steps to enter (No stairs, denies fall hx) Bathrooms on 1st Floor 1-Full Independent with ADL's Yes (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, 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, 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, 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) Independent with Mobility Yes (denies use of DME for mobility) Home Care Services No Caregiver after Discharge No Mental Status Oriented Anticipated Discharge Plan Plan communicated to patient/family Yes Resources Financial concerns No Transportation issues No (drives self, though spouse and family provides most transport) Patient/Family concerns No Prescription Plan Yes ([facility] [place], has MODA) Previous home health equipment No;Comment Vascular access device No Ostomy/Drains/Appliances No Anticipated Disposition Facility Type Home 03/03/16 2178 Discharge Planning Evaluation Admitting Diagnosis (CHF) Readmission No Living Arrangements Alone;Spouse/significant other (Marcela Vital [phone]) Support Systems Family members;Friends/neighbors;Spouse/significant other (patient has strong social support, spouse and son Parth and NICO Retana in room during CM v isit) Type of Residence Private residence House type Apartment;House-1 story Steps to enter (No stairs, denies fall hx) Bathrooms on 1st Floor 1-Full Independent with ADL's Yes (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, 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, 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, 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) Independent with Mobility Yes (denies use of DME for mobility) Home Care Services No Caregiver after Discharge No Mental Status Oriented Anticipated Discharge Plan Plan communicated to patient/family Yes Resources Financial concerns No Transportation issues No (drives self, though spouse and family provides most transport) Patient/Family concerns No Prescription Plan Yes ([facility] [place], has MODA) Previous home health equipment No;Comment Vascular access device No Ostomy/Drains/Appliances No Anticipated Disposition Facility Type Home Met with patient,spouse and other family members, introduced CM and role to assist with res ources and dcp. Patient is a pleasant, oriented 70 y.o., male here with CHF, transfer from [place], [place]. Patient is IADLS, no DME, no past or present HH, drives self when he can, not on blood thin ankur medications, no OP therapies or services at this time. Patient's PCP is: STAR DOLL patient confirms this is his PCP and that he is able to a ccess and afford services with this provider Patient's insurance: [place] Coverage concerns: none, per patient Medication coverage/concerns: MODA as supplement, patient has some out of pocket expenses f or 2 medications that are about $145 each; patient reports that they are currently able to a fford these medications Community resources utilized / needed: none, per patient Assistance in transportation: family will assist at d/c Anticipated DCP: home with family, no d/c needs identified at this time CARLTON Galindo onver rosie Patel, Provider Unknown - 03/03/2016 2:40 PM PDT Case Management by CARLTON Galindo at 03/03/16 7883 Author: Karen Junge, COMPANY MANAGER Service: (none) Author Type: Report Programmer Filed: 03/03/16 1440 Date of Service: 03/03/16 1440 Status: Signed Whitesmith: CARLTON Galindo (Report Programmer) Met with patient for dcp and admission assessment, will update notes shortly. docume nted in this encounter H&P Notes Efrain Navarro MD - 03/04/2016 5:09 PM PDTFormatting of this note might be different from t nicole original. H&P by Efrain Navarro MD at 03/04/16 170 Author: Efrain Navarro MD Service: Vascular Surgery Author Type: Physician Filed: 03/04/16 1836 Date of Service: 03/04/161708 Status: Addendum Whitesmith: Efrain Navarro MD (Physician) Related Notes: Original Note by Yolanda Middleton DNP (Nurse Practitioner) filed at 03/04/16 1810 [facility] Service: Vascular Surgery Pre-Procedure History & Physical Date of Admission: 03/03/2016 Requesting Physician: Cuate Will Nephrology Reason for Admission: Acute NSTEMI, acute diastolic heart failure History Obtained From: patient CHIEF COMPLAINT: Acute on chronic kidney disease and volume overload HISTORY OF PRESENT ILLNESS The patient is a 70 y.o. male with significant past medical history of stage 5 chronic kidn ey disease and aortic stenosis who presents with shortness of breath and chest pain for 1 da y and was found to have pulmonary edema on chest x-ray at an outside facility. He had an AVF creation last Friday by Dr. Dias and received 1L of IV fluid due to hypotension and bradycar chip during the procedure. He was discharged home when blood pressure stabilized. At the outs [facility] facility, he had elevated BNP and troponin levels. He was started on Lasix and transferr ed here. He was consulted by inpatient cardiology and received catherization today and showe d diffused vessel disease, no surgical intervention required at this time. He was also evalu ated by nephrology for hypervolemia and acute kidney injury on stage 5 chronic kidney diseas e. He will require urgent hemodialysis. Vascular surgery is consulted for placement of the t emporary tunneled catheter for urgent hemodialysis. REVIEW OF SYSTEMS General: negative for - night sweats, fatigue, weight gain or weight loss Psychological: negative for - anxiety, depression, memory difficulties, mood swings, halluc ination, suicidal ideation, or sleep disturbances Ophthalmic: negative for - decreased vision, double vision or loss of vision ENT: negative for - headaches, nasal congestion, oral lesions, sinus pain, earache, ear dis charge, or tinnitus. Neck: negative for - neck pain, neck stiffness, swollen gland, or thyroid enlargement. Respiratory: no cough, wheezing, sputum production, or hemoptysis. He has shortness of hakeem th. Cardiovascular: no chest pain today. He has orthopnea, heart murmur, dyspnea on exertion Gastrointestinal: no abdominal pain, change in bowel habits, jaundice, constipation, or bacilio ck or bloody stools Genito-Urinary: no dysuria, trouble voiding, or hematuria. He has nocturia. Musculoskeletal: negative for - joint stiffness, joint swelling or bone pain. He has bilate ral legs swelling. Neurological: negative for - behavioral changes, impaired coordination, loss of balance, ti ngling sensation, dizziness, seizure, or weakness Dermatological: negative for - mole changes, nail changes, skin lesion changes, or skin dis coloration. Hematological and Lymphatic: negative for - bleeding problems, blood clots, bruising, swoll en lymph nodes. He has history of anemia of chronic disease. Endocrine: negative for thyroid disease, heat or cold intolerance, polyuria, or polydipsia. Past Medical History Diagnosis Date Hypertension Hyperlipidemia Diabetes mellitus, type 2 ([facility]) 2005 Insulin-requiring, with diabetic Nephropathy, Retinopathy Sleep apnea dx light apnea Chronic kidney disease Stage IV-V Anemia of chronic renal failure 01/24/2012 Acute upper GI bleed 01/18/2014 PUD on EGD, ulcer cauterized Stroke ([facility]) 2010 right surface stroke, residual left hand numbness/tingling Acute diastolic congestive heart failure ([facility]) 03/03/2016 Aortic valve stenosis, severe Vitamin D deficiency Skin cancer NSTEMI (non-ST elevated myocardial infarction) ([facility]) 03/03/2016 Past Surgical History Procedure Laterality Date Colonoscopy Cataract extraction Bilateral 2004? Esophagogastroduodenoscopy N/A 01/18/2014 Procedure: ESOPHAGOGASTRODUODENOSCOPY; Surgeon: Caitlyn Khan MD; Location: [facility]; Service: Gastroenterology; Laterality: N/A; Av fistula placement Right 03/01/2016 Procedure: AV FISTULA; Surgeon: Vivek Dias MD; Location: [facility]; Service: Vascul ar; Laterality: Right; brachiocephalic fistula creation Skin cancer excision mid forehead Allergies Allergen Reactions Penicillins Other (See Comments) Gemfibrozil Nausea and Vomiting Questran [Cholestyramine] Nausea and Vomiting Medication Sig amlodipine (NORVASC) 10 MG tablet Take 5 mg by mouth daily. aspirin 81 MG tablet Take 81 mg by mouth daily. atorvastatin (LIPITOR) 40 MG tablet Take 40 mg by mouth nightly. Cholecalciferol (VITAMIN D PO) Take 10,000 Int'l Units by mouth every evening. furosemide (LASIX) 20 MG tablet Take 40 mg by mouth daily. Two tablets daily. glucose blood test strip 1 each by Other route as needed. Use as instructed hydrALAZINE (APRESOLINE) 10 MG tablet Take 1 tablet by mouth 3 (three) times daily. HYDROcodone-acetaminophen (NORCO) 5-325 MG per tablet Take 1-2 tablets by mouth every 6 (six) hours as needed for Pain. insulin glargine (TOUJEO) 300 UNIT/ML injection Inject 60 Units into the skin every mor ankur. losartan (COZAAR) 50 MG tablet Take 50 mg by mouth daily. sevelamer (RENVELA) 800 MG tablet Take 1 tablet by mouth 3 (three) times daily with joan ls. During meals. sitagliptan (JANUVIA) 100 MG tablet Take 50 mg by mouth daily. sodium bicarbonate 650 MG tablet Take 1 tablet by mouth 4 (four) times daily. terazosin (HYTRIN) 5 MG capsule Take 10 mg by mouth nightly. Family History Problem Relation Age of Onset Cancer Mother unknown type Heart disease Father 68 [place] Malig hypertherm Neg Hx Kidney failure Brother had renal transplant PHYSICAL EXAM Constitutional: Well nourished, no signs of distress. HENT: Non icteric sclerae, oropharynx clear. Normocephalic and atraumatic. Lymphadenopathy: He has no cervical or supraclavicular adenopathy Cardiovascular: Normal rate, regular rhythm. 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 Abdominal: Soft. No abdominal distension or tenderness. Musculoskeletal: Normal range of motion. No evidence of arthritis. Extremities: No cyanosis or clubbing. Bilateral lower extremity edema. Neurological: He is alert and oriented. No muscle weakness. BP 142/71 mmHg | Pulse 90 | Temp(Src) 98.5 F (36.9 C) (Oral) | Resp 20 | Ht 1.753 m (5' 9") | Wt 100.2 kg (220 lb 14.4 oz) | BMI 32.61 kg/m2 | SpO2 98% PROBLEM LIST Principal Problem: NSTEMI (non-ST elevated myocardial infarction) ([facility]) Active Problems: Type 2 diabetes mellitus with diabetic nephropathy ([facility]) Essential hypertension, benign Obesity Anemia of chronic renal failure, stage 5 ([facility]) Aortic stenosis Acute diastolic congestive heart failure ([facility]) ESRD (end stage renal disease) ([facility]) Difficulty in walking Debility, unspecified ASSESSMENT & PLAN Chronic kidney disease stage 5 with acute kidney failure requiring urgent dialysis: We plan to perform a right internal jugular vein tunneled hemodialysis catheter placement, which wi ll enable the patient to initiate hemodialysis right away. Benefits and risks of operation w ere explained to the patient. The risks of the procedure include bleeding, infection, cathet er malfunction, deep vein hrombosis, arterial injury, nerve injury and pneumothorax. The pat ient verbalized understanding with these benefits and risk, the patient agreed to proceed. T he planned operation is scheduled for 03/04/2016 at [facility] Director Quality Assurance Disposition: Inpatient Code Status: Full Code Primary Care Physician: CLAUDIA López Si, MD 03/04/2016 Bret Champion MD - 03/03 9:39 AM PDT H&P by Bret Oro MD at 03/03/16 3799 Author: Bret Oro MD Service: (none) Author Type: Physician Filed: 03/22/16 9528 Date of Service: 03/03/16938 Status: Addendum Whitesmith: Bret Oro MD (Physician) Related Notes: Original Note by Bret Oro MD (Physician) filed at 03/03/16 8392 [facility] Service: Hospitalist Admission History & Physical Pt: Brianna Vital AGE/SEX: 70 y.o. male ROOM: 09/10 PCP: STAR DOLL : 1945 TODAY'S DATE: 03/03/2016 Date of Admission: 03/03/2016 Chief Complaint: Shortness of breath History of Present Illness: 70-year-old male with past medical history of chronic kidney disease stage V, not on dialys is yet, severe aortic stenosis, hypertension, diabetes mellitus, obesity, who presented with shortness of breath since yesterday evening, more on lying down, getting progressively wors e and at 4 a.m. was worse enough that he presented to an outside facility where he was found to have x-ray changes of pulmonary edema. Troponin positive at 0.37 and high BNP. Patient w as given some questionable dose of Lasix and then transferred here. Currently patient denies any chest pain, shortness of breath is somewhat better. Has made p robably 50 cc of urine since yesterday night. Had some nausea. At presentation, but not now. No vomiting, abdominal pain or diarrhea. Repeat troponin in the ER here came back positive to 1.8. BNP of 3200. Of note, patient had a recent admission for fistula placement on Friday where he was found to be bradycardic and hypotensive after procedure and anesthesia and received overall 1 L IV fluid. After that, heart rate was improved. Blood pressure stabilized and patient was disch arged off beta blockers - Coreg. Patient never had any CAD or [place] or an angiogram. Review of Systems: A 10 point review of systems was negative except as mentioned in the HPI. PMHx: Past Medical History Diagnosis Date Hypertension Hyperlipidemia Diabetes mellitus, type 2 (HCC) TIA (transient ischemic attack) 2010 Heart murmur Sleep apnea dx light apnea Chronic kidney disease Anemia of chronic renal failure 01/24/2012 Acute upper GI bleed 01/18/2014 Stroke (HCC) 2011 surface stroke Acute diastolic congestive heart failure (HCC) 03/03/2016 PSHx: Past Surgical History Procedure Laterality Date Colonoscopy Cataract extraction 2004? Esophagogastroduodenoscopy N/A 01/18/2014 Procedure: ESOPHAGOGASTRODUODENOSCOPY; Surgeon: Caitlyn Khan MD; Location: [facility]; Service: Gastroenterology; Laterality: N/A; Av fistula placement Right 03/01/2016 Procedure: AV FISTULA; Surgeon: Vivek Dias MD; Location: [facility]; Service: Vascul ar; Laterality: Right; brachiocephalic fistula creation Prior To admission Meds: Prior to Admission medications Medication Sig Start Date End Date Taking? Authorizing Provider amlodipine (NORVASC) 10 MG tablet Take 5 mg by mouth daily. Historical Provider aspirin 81 MG tablet Take 81 mg by mouth daily. Historical Provider atorvastatin (LIPITOR) 40 MG tablet Take 40 mg by mouth nightly. Historical Provider Cholecalciferol (VITAMIN D PO) Take 10,000 Int'l Units by mouth every evening. Historica l Provider furosemide (LASIX) 20 MG tablet Take 40 mg by mouth daily. Two tablets daily. Historical Provider glucose blood test strip 1 each by Other route as needed. Use as instructed Historical P rovider hydrALAZINE (APRESOLINE) 10 MG tablet Take 1 tablet by mouth 3 (three) times daily. 10/20/15 EDSON Rosenberg HYDROcodone-acetaminophen (NORCO) 5-325 MG per tablet Take 1-2 tablets by mouth every 6 (si x) hours as needed for Pain. 03/01/16 03/11/16 Vivek Dias MD insulin glargine (TOUJEO) 300 UNIT/ML injection Inject 60 Units into the skin every morning . Historical Provider losartan (COZAAR) 50 MG tablet Take 50 mg by mouth daily. Historical Provider sevelamer (RENVELA) 800 MG tablet Take 1 tablet by mouth 3 (three) times daily with meals. During meals. 01/30/16 01/29/17 EDSON Rosenberg sitagliptan (JANUVIA) 100 MG tablet Take 50 mg by mouth daily. Historical Provider sodium bicarbonate 650 MG tablet Take 1 tablet by mouth 4 (four) times daily. 01/30/16 EDSON Rosenberg terazosin (HYTRIN) 5 MG capsule Take 10 mg by mouth nightly. Historical Provider Allergies: Allergies Allergen Reactions Penicillins Other (See Comments) Gemfibrozil Nausea and Vomiting Questran [Cholestyramine] Nausea and Vomiting Family Hx: Family History Problem Relation Age of Onset Cancer Mother Heart disease Father Malig hypertherm Neg Hx Social Hx: Social History Social History Marital Status: Spouse Name: N/A Number of Children: 2 Years of Education: N/A Occupational History retired Social History Main Topics Smoking status: Never Smoker Smokeless tobacco: Never Used Alcohol Use: No Drug Use: No Sexual Activity: Partners: Female Control/ Protection: Abstinence Other Topics Concern Not on file Social History Narrative Lives in [facility], independent with activities of daily living, no falls, full co de. History Smoking status Never Smoker Smokeless tobacco Never Used History Alcohol Use No Physical Exam: BP 141/73 mmHg | Pulse 87 | Temp(Src) 97.8 F (36.6 C) | Resp 16 | SpO2 95% General Appearance: Alert, cooperative, no distress, appears stated age Head: Normocephalic, without obvious abnormality, atraumatic Eyes: PERRL, conjunctiva/corneas clear, EOM's intact. Ears: Normal external ear canals, both ears Nose: Nares normal, septum midline, mucosa normal, no drainage or sinus tenderness Throat: Lips, mucosa, and tongue normal; teeth and gums normal Neck: Supple, symmetrical, trachea midline, thyroid: no enlargement/tenderness/nodules ; no carotid bruit or JVD Back: Symmetric, no curvature, ROM normal, no CVA tenderness Lungs: bilateral basal crackles. Nonlabored breathing Chest Wall: No tenderness or deformity Heart: Regular rate and rhythm, S1 and S2 normal, systolic murmur, rub or gallop Abdomen: Soft, non-tender, bowel sounds active all four quadrants, no masses, no organomegaly Psychiatric: Alert and oriented x 3. Intact Judgement and insight Rectal: Deferred Extremities: mild edema in lower extremities Skin: Skin color, texture, turgor normal, no rashes or lesions Lymph nodes: Cervical nodes normal Neurologic: CNII-XII intact, normal strength, sensation and reflexes throughout Data: CBC: Lab Results Component Value Date WBC 6.99 03/02/2016 RBC 2.88* 03/02/2016 HGB 8.3* 03/02/2016 HGB 9.9* 08/28/2015 HCT 24.4* 03/02/2016 MCV 84.8 03/02/2016 MCH 28.8 03/02/2016 MCHC 34.0 03/02/2016 RDW 43.8 03/02/2016 PLT 131* 03/02/2016 MPV 9.9 03/02/2016 DIFFTYPE AUTOMATED 03/02/2016 CMP: Lab Results Component Value Date NA 143 03/02/2016 K 4.1 03/02/2016 CL 109 03/02/2016 CO2 23 03/02/2016 ANIONGAP 15 03/02/2016 GLUF 72 03/02/2016 BUN 58* 03/02/2016 CREATININE 8.2* 03/02/2016 CREATININE 5.79* 11/22/2015 BCR 7 03/02/2016 CA 8.3* 03/02/2016 CA 9.7 09/11/2015 PROT 5.7* 03/02/2016 ALB 2.8* 03/02/2016 GLOB 2.9 03/02/2016 BILITOT 0.3 03/02/2016 ALP 38 03/02/2016 AST 8* 03/02/2016 ALT 13 03/02/2016 EGFR 7* 03/02/2016 Albumin: Lab Results Component Value Date ALB 2.8* 03/02/2016 Magnesium: Lab Results Component Value Date MG 2.3 03/02/2016 Phosphorus: Lab Results Component Value Date PHOS 6.8* 03/02/2016 PT/INR: Lab Results Component Value Date INR 1.2 01/17/2014 Troponin: Lab Results Component Value Date TROPONINI 0.021 03/02/2016 Last 3 Troponin: Lab Results Component Value Date TROPONINI 0.021 03/02/2016 TROPONINI 0.027 03/01/2016 TROPONINI 0.026 03/01/2016 TSH: Lab Results Component Value Date TSH 0.61 12/30/2013 EKG: I personally reviewed the EKG. Findings: Normal sinus rhythm, some PVCs, otherwise no other acute ST-T wave changes IMAGING: Xr Chest 1 View 03/03/2016 This is a non-reportable procedure without a radiologist report and is used fo r image storage only Us Arm Right Mapping For Dialysis 02/29/2016 History: 70-year-old male, preoperative. Requires vein mapping Technique: Ult rasound of the bilateral lower extremity superficial systems. Prior study: None Findings: EVALUATION OF THE RIGHT: CEPHALIC VEIN proximal arm: 5.7 mm, 18 mm from the skin surface middle arm: 3.8 mm, 8.2 mm from the skin surface distal arm: 3.9 mm, 4.2 mm from the skin surface proximal forearm: 4.3 mm, 6.6 mm from the skin surface middle forearm: 3.1 mm, 4.5 mm from the skin surface distal forearm: 3.8 mm, 2.5 mm from the skin surface BRACHIAL VE IN proximal arm: 4.9 mm, 20 mm from the skin surface middle arm: 4 mm, 23 mm from the ski n surface distal arm: 4.3 mm, 10.7 mm from the skin surface BASILIC VEIN: middle arm: 6 mm, 16 mm from the skin surface distal arm: 2.8 mm, 3.9 mm from the skin surface proximal f orearm: 2.2 mm, 2.8 mm from the skin surface middle forearm: 2.2 mm, 2.3 mm from the skin surface distal forearm: 1.8 mm, 2.6 mm from the skin surface BRACHIAL ARTERY: 6.3 mm, 10.7 mm from the skin surface RADIAL ARTERY: 3.6 mm, 8.3 mm from the skin surface ULNAR ARTERY : 2.5 mm, 10.2 mm from the skin surface Atherosclerotic vascular disease: Not reported A s tenosis of the distal radial artery with a velocity elevation is noted, image 37. Atheroscl erotic calcifications are also. Thrombosis: None 02/29/2016 1. A brachiocephalic fistula may be the best choice, as the basilic vein has a low insertion point and there is a stenosis of the distal radial artery Left hand dominant patient Would correlate with individual surgical protocol for this individual patient Debbie ctronically signed by Aki Meyers MD on 02/29/2016 4:50 PM Echo 01/28. Per note from Dr. Germain shows severe aortic stenosis and EF 65%. Problem List: Principal Problem: Acute diastolic congestive heart failure (HCC) Active Problems: Type 2 diabetes mellitus with diabetic nephropathy (HCC) Essential hypertension, benign Diabetic nephropathy (HCC) Stroke (HCC) Dyslipidemia Obesity Vitamin D deficiency Anemia of chronic renal failure, stage 5 (HCC) Aortic stenosis Chronic kidney disease, stage V (HCC) Assessment and Plan: 1. Acute coronary syndrome, non-STEMI: Troponins high even in the setting of renal failure. Will continue patient on aspirin, started on heparin drip. Also restart Coreg at a low dose of 3.125 and monitor heart rate. Continue home dose of Lipitor, amlodipine, losartan, and t erazosin. Follow-up troponins Hypertension, dyslipidemia as above. Discussed and consulted cardiology, Dr. Dangelo, who thinks most likely patient will need an a ngiogram but will be seeing him and make a decision. Also updated nephrology, Dr. Espinosa abo ut same. If so, patient will need to be considered for dialysis. Fistula is not mature yet. Might need PermCath in a.m. 2. Acute CHF with high BNP and fluid overload: We will give 1 dose of Lasix 80 mg IV to see if he responds. Further management per nephrology. We'll hold off repeating echo. 3. Severe aortic stenosis as above 4. Chronic kidney disease stage V. As above. Nephrology consulted. Continue with Renvela an d bicarbonate by mouth. Potassium was 4.6, and CO2 19, hemoglobin 10. BUN 61. 5. Diabetes mellitus. Will continue with home dose of Lantus and high-dose sliding scale. Discussed advance directives he is a full code. Patient will need more than to midmights, s o will admit to inpatient. Addendum 2 PM: Discuss with cardiology again plan for angiogram tomorrow morning. Also discussed with neph rology with recommendation use as less contrast is possible and will monitor patient. After that and see if he needs dialysis or not. Also, recommended 160 mg IV Lasix and to monitor urine output after that. If no urine outpu t to consider a [place] catheter. Patient's old records and labs that were available, were reviewed in detail and summarized as above. Dictation and manager clinical or software, [employer], used which may contain error for similar s ounding words even after review. Personal communication requested for any clarification. Code Status: Prior Primary Care Physician: STAR Oro MD 03/03/2016 9:39 AM documented in this encou nter Procedure Notes Cuate Espinosa MD - 03/06/2016 4:06 PM PDTFormatting of this note might be different fr om the original. Procedures by Cuate Espinosa MD at 03/06/16 3169 Author: Cuate Espinosa MD Service: (none) Author Type: Physician Filed: 03/06/16 6595 Date of Service: 03/06/161605 Status: Signed Whitesmith: Cuate Espinosa MD (Physician) The patient is seen & examined during dialysis. he says that he feels 'ok' today. he denie s any CP. The following portions of the patient's history were reviewed and updated as appropriate: l aboratory data, allergies, current medications, and problem list. P.E. BP 143/78 mmHg | Pulse 84 | Temp(Src) 98.6 F (37 C) (Oral) | Resp 20 | Ht 1.753 m (5' 9 ") | Wt 100.1 kg (220 lb 10.9 oz) | BMI 32.57 kg/m2 | SpO2 93% General appearance: Pleasant, not in acute distress. Lungs: B crackles to auscultation bilaterally. There are no wheezes. Heart: irreg rate and rhythm without any rub, gallop. has murmur. Abdominal exam: Soft and nontender with normal bowel sounds. Extremities: Warm to touch with leg edema. There is no cyanosis. Neurological: Awake, alert, and oriented to time, place, and person. Normal gross motor po wer. There is no asterixis. Access: R IJ TDC. Lab Results Component Value Date BUN 43* 03/06/2016 CREATININE 5.8* 03/06/2016 EGFR 10* 03/06/2016 NA 141 03/06/2016 K 3.8 03/06/2016 CL 103 03/06/2016 CO2 27 03/06/2016 CA 8.2* 03/06/2016 PHOS 6.5* 03/04/2016 MG 2.4 03/04/2016 ALB 2.6* 03/05/2016 HGB 8.5* 03/06/2016 Assessment: Mr. Vital is a 70 y.o. male patient with CKDV now ESRD. Complications identified during his dialysis treatment: none. Recommendations: 1-1.5UF as tolerated 39274 IV Epo with HD Advise fluid restriction of 1L per 24 hrs Next dialysis treatment CUATE ESPINOSA MD FACP Cuate Morales M D - 03/05/2016 9:42 AM PDT Procedures by Cuate Espinosa MD at 03/05/16 0942 Author: Cuate Espinosa MD Service: (none) Author Type: Physician Filed: 03/05/16 0944 Date of Service: 03/05/16941 Status: Signed Whitesmith: Cuate Espinosa MD (Physician) The patient is seen & examined during dialysis. he says that he feels 'ok' today. he denie s any CP. The following portions of the patient's history were reviewed and updated as appropriate: l aboratory data, allergies, current medications, and problem list. P.E. BP 108/59 mmHg | Pulse 108 | Temp(Src) 97.9 F (36.6 C) (Oral) | Resp 24 | Ht 1.753 m (5 ' 9") | Wt 97.8 kg (215 lb 9.8 oz) | BMI 31.83 kg/m2 | SpO2 94% General appearance: Pleasant, not in acute distress. Lungs: poor air entry to auscultation bilaterally. There are no wheezes. Heart: Regular rate and rhythm without any rub, gallop. has murmur. Abdominal exam: Soft and nontender with normal bowel sounds. Extremities: Warm to touch with leg edema. There is no cyanosis. Neurological: Awake, alert, and oriented to time, place, and person. Normal gross motor po wer. There is no asterixis. Access: R IJ TDC. Lab Results Component Value Date BUN 55* 03/05/2016 CREATININE 6.9* 03/05/2016 EGFR 8* 03/05/2016 NA 139 03/05/2016 K 4.1 03/05/2016 CL 104 03/05/2016 CO2 22* 03/05/2016 CA 8.5 03/05/2016 PHOS 6.5* 03/04/2016 MG 2.4 03/04/2016 ALB 2.6* 03/05/2016 HGB 8.6* 03/05/2016 Assessment: Mr. Vital is a 70 y.o. male patient with CKDV now ESRD. Complications identified during his dialysis treatment: none. Recommendations: 1-1.5UF as tolerated 84609 IV Epo with HD Advise fluid restriction of 1L per 24 hrs Next dialysis treatment tomorrow CUATE ESPINOSA MD FACP documented in this encounter Consult Notes Conversion Transaction, Provider Unknown - 03/11/2016 2:20 PM PDTFormatting of this note m ight be different from the original. Consults by Dinorah Garcia RN at 03/11/16 142 Author: Dinorah Garcia RN Service: Wound/Ostomy Care Author Type: Registered Nurse Filed: 03/11/16 1423 Date of Service: 03/11/161419 Status: Signed Whitesmith: Dinorah Garcia RN (Registered Nurse) Consult Orders: 1. Wound Care Evaluation and Treat [[id number]] ordered by Ivan Snell MD at 03/11/16 0314 [facility] Service: Wound Care Consult Note Hospital Day: LOS: 8 days Post-Op Day: * No surgery found * SUBJECTIVE Patient Summary: Consulted for pressure injury to buttocks OBJECTIVE Wound #1: Classification: Pressure Ulcer Stage 2 Location:buttocks Drainage Amount:None Drainage Type:none Wound Odor After Wound is Cleaned:None Periwound Skin:Erythema Wound Size:.5 (cm) Length and .2 (cm) Width Wound Bed:Moist and Red Wound Exam:open and erythema Wound Infection:none noted PROBLEM LIST Principal Problem: NSTEMI (non-ST elevated myocardial infarction) ([facility]) Active Problems: Type 2 diabetes mellitus with diabetic nephropathy ([facility]) Obesity Anemia of chronic renal failure, stage 5 ([facility]) Moderate aortic stenosis Aortic stenosis Acute diastolic congestive heart failure ([facility]) ESRD (end stage renal disease) ([facility]) Difficulty in walking Debility, unspecified 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 (H CC) Paroxysmal atrial fibrillation ([facility]) HFrEF (heart failure with reduced ejection fraction) ([facility]) ADHF (acute decompensated heart failure) ([facility]) Coronary artery disease involving [place] coronary artery of [place] heart S/P PTCA (percutaneous transluminal coronary angioplasty) ASSESSMENT & PLAN Classification: Pressure Ulcer Pressure Ulcer Stage - Stage 2 Was Pressure Ulcer Present on Admission- Yes removal of existing dressing visual inspection Application of zinc oxide Recommendation: Apply zinc oxide daily and PRN Thank you for this consult. Please call if there are any additional questions. Dinorah Garcia RN 2:21 PM 03/11/2016 Jesús Osman MD - 03/04/2016 2:24 PM PDTFormatting of this note might be different from the o riginal. Consult* by Jesús Pantoja MD at 03/04/16 7581 Author: Jesús Pantoja MD Service: Cardiac, Thoracic, and Vascular Surgery Author Type: Physician Filed: 03/08/16 1201 Date of Service: 03/04/161423 Status: Signed Whitesmith: Jesús Pantoja MD (Physician) [facility] Service: Cardiothoracic Surgery Initial Consult Note Date of Admission: 03/03/2016 Reason for Consultation: Consideration for AVR Requesting Physician: Dr Dangelo, Cardiology History Obtained From: patient, chart review CHIEF COMPLAINT: SOB HISTORY OF PRESENT ILLNESS The patient is a 70 y.o. male with significant past medical history of DM, HTN, sleep apne a, CKD who presents with worsening SOB. He was ruled in for NSTEMI. Echo showed severe aorti c stenosis, coronary angiogram showed triple vessel coronary artery disease. Patient denies chest pain, orthopnea, PND. SURGICAL RISK ASSESSMENT Procedure: AV Replacement + CAB Hemo Data-EF Done: Yes, LVEF = 50 Heart Failure within 2 weeks: No RF-Renal Fail-Dialysis: Yes, CKD (Stage 5) Last Creat Level: 8 Cardiac Symptoms - At Time of This Admission: Non-ST Elevation [place] (Non-STEMI) Cardiac Symptoms - At Time of Surgery: Non-ST Elevation [place] (Non-STEMI) Prior [place]: Yes, 1 to 7 days ago Cardiac Arrhythmia: No RF-Chronic Lung Disease: Mild RF-Cerebrovascular Disease: No RF-Peripheral Arterial Disease: No RF-Diabetes: Yes, type 2 without complications, RF-Hypertension: Yes, essential hypertension RF-Immunocompromise: No RF-Endocarditis: No Coronary Anatomy/Disease Known: Yes - Num Dis Vessels: Three - Percent [place] Artery Stenosis Known: Yes - Percent Stenosis - Left Main: 0 Status: Elective Resuscitation: No Cardiogenic Shock: No IABP: No Meds-Inotropes: No Prev Cardiac Intervent: No VD-Mitral: No VD-Aortic: Yes - UB-Qbgysncn-Cyjynr: Yes GP-Zltwuu-Jlppyk: Mild KT-Woefus-Bcfslbnht: Mild HU-Vyvjeq-Nnvfpm: Mild Incidence: First cardiovascular surgery REVIEW OF SYSTEMS Review of Systems Constitutional: Negative for fever, chills, activity change and fatigue. HENT: Negative for hearing loss, nosebleeds, sore throat, tinnitus and voice change. Eyes: Negative for pain, discharge, redness and visual disturbance. Respiratory: Positive for shortness of breath. Negative for cough, chest tightness and whee zing. Cardiovascular: Negative for chest pain, palpitations and leg swelling. Gastrointestinal: Negative for nausea, abdominal pain, diarrhea, constipation, blood in sto ol, abdominal distention and anal bleeding. Genitourinary: Negative for dysuria, urgency, frequency and hematuria. Musculoskeletal: Negative for back pain, arthralgias and neck stiffness. Skin: Negative for color change, pallor and wound. Neurological: Negative for dizziness, tremors, seizures, syncope, facial asymmetry, speech difficulty, weakness and light-headedness. Hematological: Negative for adenopathy. Does not bruise/bleed easily. Psychiatric/Behavioral: Negative for suicidal ideas, behavioral problems, confusion, sleep disturbance and agitation. Past Medical History Diagnosis Date Hypertension Hyperlipidemia Diabetes mellitus, type 2 ([facility]) 2005 Insulin-requiring, with diabetic Nephropathy, Retinopathy Sleep apnea dx light apnea Chronic kidney disease Stage IV-V Anemia of chronic renal failure 01/24/2012 Acute upper GI bleed 01/18/2014 PUD on EGD, ulcer cauterized Stroke ([facility]) 2010 right surface stroke, residual left hand numbness/tingling Acute diastolic congestive heart failure ([facility]) 03/03/2016 Aortic valve stenosis, severe Vitamin D deficiency Skin cancer NSTEMI (non-ST elevated myocardial infarction) ([facility]) 03/03/2016 Past Surgical History Procedure Laterality Date Colonoscopy Cataract extraction Bilateral 2004? Esophagogastroduodenoscopy N/A 01/18/2014 Procedure: ESOPHAGOGASTRODUODENOSCOPY; Surgeon: Caitlyn Khan MD; Location: [facility]; Service: Gastroenterology; Laterality: N/A; Av fistula placement Right 03/01/2016 Procedure: AV FISTULA; Surgeon: Vivek Dias MD; Location: [facility]; Service: Vascul ar; Laterality: Right; brachiocephalic fistula creation Skin cancer excision mid forehead Allergies Allergen Reactions Penicillins Other (See Comments) Gemfibrozil Nausea and Vomiting Questran [Cholestyramine] Nausea and Vomiting Prescriptions prior to admission Medication Sig Dispense Refill Last Dose amlodipine (NORVASC) 10 MG tablet Take 5 mg by mouth daily. 03/01/2016 at 0700 aspirin 81 MG tablet Take 81 mg by mouth daily. 02/29/2016 at Unknown time atorvastatin (LIPITOR) 40 MG tablet Take 40 mg by mouth nightly. 02/29/2016 at Unknown time Cholecalciferol (VITAMIN D PO) Take 10,000 Int'l Units by mouth every evening. 016 at Unknown time furosemide (LASIX) 20 MG tablet Take 40 mg by mouth daily. Two tablets daily. 02/29/20 16 at Unknown time glucose blood test strip 1 each by Other route as needed. Use as instructed Taking hydrALAZINE (APRESOLINE) 10 MG tablet Take 1 tablet by mouth 3 (three) times daily. 84 tablet 3 03/01/2016 at 0700 HYDROcodone-acetaminophen (NORCO) 5-325 MG per tablet Take 1-2 tablets by mouth every 6 (six) hours as needed for Pain. 30 tablet 0 insulin glargine (TOUJEO) 300 UNIT/ML injection Inject 60 Units into the skin every mor ankur. 03/01/2016 at 0700 losartan (COZAAR) 50 MG tablet Take 50 mg by mouth daily. 02/29/2016 at Unknown time sevelamer (RENVELA) 800 MG tablet Take 1 tablet by mouth 3 (three) times daily with joan ls. During meals. 180 tablet 11 02/29/2016 at Unknown time sitagliptan (JANUVIA) 100 MG tablet Take 50 mg by mouth daily. 02/29/2016 at Unknown t arnulfo sodium bicarbonate 650 MG tablet Take 1 tablet by mouth 4 (four) times daily. 120 table t 11 02/29/2016 at Unknown time terazosin (HYTRIN) 5 MG capsule Take 10 mg by mouth nightly. 03/01/2016 at 0700 Scheduled Medications amLODIPine 5 mg Oral Daily aspirin 81 mg Oral Daily with breakfast atorvastatin 80 mg Oral Nightly carvedilol 6.25 mg Oral BID WC cholecalciferol 1,000 Units Oral QPM diphenhydrAMINE 50 mg Oral Once epoetin lakeisha 10,000 Units Intravenous Once in dialysis famotidine 20 mg Oral Once heparin (porcine) Intracatheter Daily hydrALAZINE 10 mg Oral TID insulin glargine 60 Units Subcutaneous QAM lidocaine 40 mL Intradermal Once pantoprazole 40 mg Intravenous BID sevelamer 800 mg Oral TID WC [START ON 03/05/2016] sitagliptan 25 mg Oral Daily sodium bicarbonate 650 mg Oral 4x Daily terazosin 10 mg Oral Nightly Continuous Infusions sodium chloride (IV) 50 mL/hr at 03/04/16 1108 PRN Medications acetaminophen OR acetaminophen, heparin (porcine) 5000 unit/0.5mL, heparin (porcine) 50 00 unit/0.5mL, HYDROcodone-acetaminophen OR HYDROcodone-acetaminophen, nitroGLYCERIN, on dansetron OR ondansetron, polyethylene glycol, zolpidem Family History Problem Relation Age of Onset Cancer Mother unknown type Heart disease Father 68 [place] Saida hypertherm Neg Hx Kidney failure Brother had renal transplant Social History Social History Marital Status: Spouse Name: N/A Number of Children: 2 Years of Education: N/A 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 History Smoking status Never Smoker Smokeless tobacco Never Used History Alcohol Use No History Drug Use No PHYSICAL EXAM Vital Signs: BP 129/72 mmHg | Pulse 86 | Temp(Src) 97.6 F (36.4 C) (Oral) | Resp 19 | Ht 1.753 m (5' 9") | Wt 100.2 kg (220 lb 14.4 oz) | BMI 32.61 kg/m2 | SpO2 93% Temp: [97.6 F (36.4 C)-98.9 F (37.2 C)] 97.6 F (36.4 C) (03/04 113) BP: (101-184)/(58-86) 129/72 mmHg (03/04 1400) Heart Rate: [82-94] 86 (03/04 1400) Resp: [18-22] 19 (03/04 113) SpO2: [91 %-97 %] 93 % (03/04 1400) Height: [175.3 cm (5' 9")] 175.3 cm (5' 9") (03/03 1447) Weight: [100.2 kg (220 lb 14.4 oz)-100.5 kg (221 lb 9 oz)] 100.2 kg (220 lb 14.4 oz) (02/08 6 0409) Physical Exam Constitutional: He is oriented to person, place, and time. Vital signs are normal. He appea rs well-developed and well-nourished. HENT: Head: Normocephalic and atraumatic. Eyes: Conjunctivae and lids are normal. Neck: Trachea normal and normal range of motion. Neck supple. No JVD present. Cardiovascular: Normal rate and regular rhythm. Murmur heard. ESM best heard in the aortic region, radiating to both the carotid arteries Pulmonary/Chest: Effort normal and breath sounds normal. Abdomina/Gl: Soft. Musculoskeletal: He exhibits no edema. Neurological: He is alert and oriented to person, place, and time. No cranial nerve deficit . Skin: Skin is warm. No cyanosis. DATA CBC: Lab Results Component Value Date WBC 9.81 03/04/2016 RBC 2.99* 03/04/2016 HGB 8.6* 03/04/2016 HGB 9.9* 08/28/2015 HCT 25.4* 03/04/2016 MCV 84.9 03/04/2016 MCH 28.9 03/04/2016 MCHC 34.0 03/04/2016 RDW 42.9 03/04/2016 PLT 122* 03/04/2016 MPV 10.4 03/04/2016 DIFFTYPE AUTOMATED 03/04/2016 CMP: Lab Results Component Value Date NA 140 03/04/2016 K 4.3 03/04/2016 CL 105 03/04/2016 CO2 20* 03/04/2016 ANIONGAP 19 03/04/2016 GLUF 166* 03/04/2016 BUN 69* 03/04/2016 CREATININE 8.6* 03/04/2016 CREATININE 5.79* 11/22/2015 BCR 8 03/04/2016 CA 8.7 03/04/2016 CA 9.7 09/11/2015 PROT 5.7* 03/04/2016 ALB 2.6* 03/04/2016 GLOB 3.1 03/04/2016 BILITOT 0.3 03/04/2016 ALP 38 03/04/2016 AST 25 03/04/2016 ALT 9* 03/04/2016 EGFR 7* 03/04/2016 Last 3 Troponin: Lab Results Component Value Date TROPONINI 4.57* 03/03/2016 TROPONINI 4.36* 03/03/2016 TROPONINI 0.021 03/02/2016 PROBLEM LIST Principal Problem: Acute diastolic congestive heart failure (HCC) Active Problems: Type 2 diabetes mellitus with diabetic nephropathy (HCC) Essential hypertension, benign Diabetic nephropathy (HCC) Stroke (HCC) Dyslipidemia Obesity Vitamin D deficiency Anemia of chronic renal failure, stage 5 (HCC) Aortic stenosis Chronic kidney disease, stage V (HCC) NSTEMI (non-ST elevated myocardial infarction) (HCC) ASSESSMENT & PLAN 70 year old male with CKD, sleep apnea, aortic stenosis admitted with SOB, ruled in for NST ALEKSANDER. Coronary angiogram showed CAD, Echo showed severe triple vessel disease. Patient will benefit from AVR and surgical revascularization. In view of impaired LV and re nal failure, he is a high risk candidate for surgery. Will discuss the case in the [facility] cardiac surgery multi disciplinary meeting. Recommendation to follow Risk Model and Variables - STS Adult Cardiac Surgery Database Version 2.81 RISK SCORES About the STS Risk Calculator Procedure: AV Replacement + CAB Risk of Mortality: 6.855% Morbidity or Mortality: 35.493% Long Length of Stay: 17.999% Short Length of Stay: 13.425% Permanent Stroke: 4.923% Prolonged Ventilation: 23.896% DSW Infection: 1.163% Renal Failure: N/A Reoperation: 12.262% Code Status: Full Code Primary Care Physician: STAR DOLL Thank you for allowing me to participate in the care of this patient. JESÚS PANTOJA MD 03/04/2016 Rebecca Morales MD - 03/03/2016 2:04 PM PDTFormatting of this note might be different from the alok peraza. Consult* by Cuate Espinosa MD at 03/03/16 6685 Author: Cuate Espinosa MD Service: (none) Author Type: Physician Filed: 03/03/16 4189 Date of Service: 03/03/16 5352 Status: Signed Whitesmith: Cuate Espinosa MD (Physician) Hospital Problem List: Principal Problem: Acute diastolic congestive heart failure (HCC) Active Problems: Type 2 diabetes mellitus with diabetic nephropathy (HCC) Essential hypertension, benign Diabetic nephropathy (HCC) Stroke (HCC) Overview: In 2011 Dyslipidemia Obesity Vitamin D deficiency Anemia of chronic renal failure, stage 5 (HCC) Aortic stenosis Chronic kidney disease, stage V (HCC) I was asked by the hospital medicine team to see Mr. Vital in consult today. As the admi tting/consulting team is familiar with his case, I will not state his past history in detail . Briefly, he is a 70 y.o. male patient with history as delineated in the Past Medical & Eliu gical History sections. He was admitted with SOB. I was called in to evaluate him for LAKESHIA (acute kidney injury, acute renal failure) and volu me overload, pulmonary edema This is a 70year-old male with past medical history of chronic kidney disease stage V, not on dialysis yet, severe aortic stenosis, hypertension, diabetes mellitus, obesity, who prese nted with shortness of breath since yesterday evening, more on lying down, getting progressi vely worse and at 4 a.m. was worse enough that he presented to an outside facility where he was found to have x-ray changes of pulmonary edema. Troponin positive at 0.37 and high BNP. Patient was given 40 mg iv Lasix and then transferred here. Currently patient denies any chest pain, shortness of breath is somewhat better. Has made p robably 50 cc of urine since yesterday night. Had some nausea. At presentation, but not now. No vomiting, abdominal pain or diarrhea. Repeat troponin in the ER here came back positive to 1.8. BNP of 3200. Of note, patient had a recent admission for fistula placement on Friday where he was found to be bradycardic and hypotensive after procedure and anesthesia and received overall 1 L IV fluid. After that, heart rate was improved. Blood pressure stabilized and patient was disch arged off Coreg. . History & ROS obtained from : discussing with primary team, patient, and chart review. He denies any history of prolonged exposure to NSAIDs or recent exposure to nephrotoxins. no re cent IV dye exposure. He denies any recurrent nephrolithiasis or pyelonephritis. He also den ies any history of urinary retention, gross hematuria, dysuria, or foamy urine. There is no family history of renal genetic diseases such as PKD. His baseline eGFR 10. He says that he feels 'SOB, no CP' today. No history of blurred vision, tinnitus, headache , fever, chills, or cough. No nausea, vomiting, abdominal pain, diarrhea, melena, or hemato chezia. No chest pain, palpitation, dizziness, loss of consciousness. Has leg edema. No d ysuria, incontinence, or symptoms of UTI. No history of frequencyweak urinary . He had 2 or 3 nightly nocturia. [...] systems were reviewed and were otherwise negative. [START ON 03/04/2016] aspirin 81 mg Oral Daily with breakfast aspirin 325 mg Oral Once [START ON 03/04/2016] carvedilol 6.25 mg Oral BID WC pantoprazole 40 mg Intravenous BID furosemide heparin 50 units/mL 1,000 Units/hr (03/03/16 1232) P.E. BP 151/74 mmHg | Pulse 91 | Temp(Src) 98.4 F (36.9 C) (Oral) | Resp 22 | Wt 101.152 kg (223 lb) | SpO2 92% General appearance: Pleasant, not in acute distress. Neck: Supple without tracheal deviation or jugular venous distension. Head and ENT: Head is atraumatic. The oropharynx is without erythema or thrush. Eyes: Anicteric. The extraocular muscle movements are normal. Lungs: crackles A/E bilaterally. There are no wheezes. Heart: Regular rate and rhythm without any rub, gallop. Abdominal exam: Soft and nontender with normal bowel sounds. Musculoskeletal: No costovertebral angle tenderness bilaterally. Extremities: Warm to touch with leg edema. There is no cyanosis. Skin: There are no rashes, petechiae, or ecchymosis. Neurological: Awake, alert, and oriented to time, place, and person. Psychiatric: The patient s behavior is normal. Judgment and thought content are normal. Lab Results Component Value Date BUN 58* 03/02/2016 CREATININE 8.2* 03/02/2016 EGFR 7* 03/02/2016 NA 143 03/02/2016 K 4.1 03/02/2016 CL 109 03/02/2016 CO2 23 03/02/2016 CA 8.3* 03/02/2016 PHOS 6.8* 03/02/2016 MG 2.3 03/02/2016 ALB 2.8* 03/02/2016 HGB 8.3* 03/02/2016 Echo, 01/29/2016 ( [facility]): severe (calc ZEKE 0.9cm2, peak/mean gradients 63/40mmHg), trace MR, trace TR, trace PI, mild LVH, LVEF 62%, moderate LAE, mild RVE, est systolic PAP 24-29mmHg. Assessment and Recommendations: Mr. Vital is a 70 y.o. male patient with LAKESHIA (acute kidney injury), that is in the sett ing of CKD V, pulmonary edema. LAKESHIA. Progressing to ESRD. Sonja العراقي give 160 mg IV Lasix and evaluate UOP. If no improvement will start APPLICATION SUPPORT CONSULTANT Pulmonary edema. As above. Troponinemia. Per cardiology.If Contrast study needed, that is potential life savimg, sugg est to use the smallest amount of contrsat. Hold any ASIYA or ARB. HTN. Carvedilol, lasix, Imdur. Hyperphosphatemia. Consider renal diet Anemia. Sec to CKD. Epo weekly, transfuse for Hb < 7 Severe . Per cardiology, MARIO? 1. Advise fluid restriction of 1L per 24 hrs 2. get renal U/S. 3. Strict I/O & daily weights. 4. Dose all of his meds to his current estimated GFR. 5. Continue to avoid all kinds of nephrotoxins. 6. Target euvolumia with a MAP>75 mmHg as possible. 7. Given his tendency for anasarca: Encourage adequate nutritional intake & close dietitian F/U. Encourage ambulation safely. Encourage the adequate use of an incentive spirometer. I discussed with the hospital medicine team the case at the time of this encounter. I spent 70 minutes today in interviewing & examining the patient, reviewing & updating the patient's chart, formulating a plan, in addition to patient education and discussions with t he primary/consulting team. Thank you Shorty Brown for the opportunity to see this patient in consult today. Please do not hesitate to call me at any time with questions or concerns. UCATE ESPINOSA MD FACP ehr, See Bobo MD - 03/03/2016 2:00 PM PDT Consult* by See Dangelo MD at 03/03/16 1400 Author: See Dangelo MD Service: Cardiology Author Type: Physician Filed: 03/03/16 1421 Date of Service: 03/03/16 1400 Status: Signed Whitesmith: See Dangelo MD (Physician) [facility] Service: Cardiology Initial Consult Note Date of Admission: 03/03/2016 Reason for Consultation: Acute NSTEMI, acute diastolic heart failure, severe Requesting Physician: Bret Oro MD History Obtained From: patient CHIEF COMPLAINT: SOB HISTORY OF PRESENT ILLNESS The patient is a 70 y.o. male is followed by Aki Germain D.O., at our [place] office4 s evere aortic stenosis, and Sweta Ly MD for 's stage IV-5 chronic kidney disease. Because of worsening renal function, he had a right brachiocephalic AV fistula created by Dr. Arun altamirano 03/01/16. After being discharged yesterday, he was home for a short time, and noted that he had decreased appetite, and felt "bloated". He was unable to urinate, and had severe genera lized weakness. Last night, around 9 PM, he developed increasing dyspnea. There is no orthop devin or PND. There is no chest pain, pressure or discomfort, no palpitations. He came to the emergency room. Supplemental oxygen has helped the dyspnea. He was given IV Lasix, but has u rinated only a scant amount, by his description. He is currently relatively asymptomatic, wi th only mild shortness of breath at present. His chest x-ray shows evidence of bilateral pul monary edema. His troponin was elevated at 1.8, consistent with an acute NSTEMI. His EKG isacc ws only mild anterolateral ST abnormalities, and frequent unifocal PVCs, which were not pres ent on an EKG 2 days ago. He is been hemodynamically stable. REVIEW OF SYSTEMS CONSTITUTIONAL: Morbid obesity. No recent significant weight change, denies recent fever, chills (although he states he feels cold all the time), night sweats, but he has significant fatigue NEUROLOGIC: He had a right-sided CVA, with residual left hand and finger numbness and ting ling, but no other residual deficits. He denies any history of migraines, seizures, syncope. He notes occasional dizziness, lightheadedness. Records from Dr. 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 He has diabetic retinopathy. No amaurosis, diplopia, re cent visual changes or glaucoma ENT: No hearing loss, tinnitus, epistaxis, dysphagia ENDOCRINE: Insulin-requiring diabetes mellitus with diabetic nephropathy and retinopathy s salena 2005. He has vitamin D deficiency.. No history of thyroid disorders or other endocrine problems. No excessive hunger, thirst. PULMONARY/SLEEP: He has mild dyspnea, as noted above, no orthopnea, paroxysmal nocturnal d yspnea. No history of asthma, emphysema. He has mild obstructive sleep apnea by history, b ut denies significant snoring, although he does admit to daytime somnolence. Sleep is not u sually refreshing. CARDIOVASCULAR: Denies chest pain, pressure or discomfort. No history of CAD. There is pr evious questionable history of acute diastolic heart failure. No history of cardiac arrhythm ias. No palpitations. He has a history of a heart murmur due to severe aortic stenosis, den ies any history of rheumatic fever. He has a history of hypertension, hyperlipidemia, metab olic syndrome. He has mild pedal edema, no claudication symptoms. -- Echo (01/29/16-[facility]): EF 60 to %, severe as, ZEKE 0.9 cm, peak/mean boykin svalvular gradient 63/40 mmHg. Moderate LAE, mild RVE, trace MR, TR, PI. No evidence of pulm onary hypertension. GASTROINTESTINAL: No recent abdominal pain, nausea, vomiting or diarrhea. He had an upper GI bleed in January,, due to PUD (ulcer cauterized on EGD) denies recent melena, hematoc hezia, hepatitis. He had evidence of diverticulosis on a colonoscopy 11/18/13. RENAL/: Stage IV-5 chronic kidney disease, now with oliguria. No dysuria, hematuria, uri nary urgency, hesitancy. HEMATOLOGY/ONCOLOGY: No h/o bleeding disorders, DVT, PE. He notes easy bruisability with out significant bleeding. He has a history of chronic iron deficiency anemia, received intr avenous iron at one time, due to his chronic kidney disease. No history of blood transfusion s. He has a history of skin cancer removed from his mid forehead. MUSCULOSKELETAL: No myalgias, arthralgias. No history of rheumatologic or autoimmune dise ases. CUTANEOUS: Skin cancer removed from his forehead. No rashes, pruritus, lesions. PSYCHIATRIC: No history of depression, anxiety or other psychiatric problems. Past Medical History Diagnosis Date Hypertension Hyperlipidemia Diabetes mellitus, type 2 (HCC) 2005 Insulin-requiring, with diabetic Nephropathy, Retinopathy Sleep apnea dx light apnea Chronic kidney disease Stage IV-V Anemia of chronic renal failure 01/24/2012 Acute upper GI bleed 01/18/2014 PUD on EGD, ulcer cauterized Stroke ([facility]) 2010 right surface stroke, residual left hand numbness/tingling Acute diastolic congestive heart failure ([facility]) 03/03/2016 Aortic valve stenosis, severe Vitamin D deficiency Skin cancer Past Surgical History Procedure Laterality Date Colonoscopy Cataract extraction Bilateral 2004? Esophagogastroduodenoscopy N/A 01/18/2014 Procedure: ESOPHAGOGASTRODUODENOSCOPY; Surgeon: Caitlyn Khan MD; Location: [facility]; Service: Gastroenterology; Laterality: N/A; Av fistula placement Right 03/01/2016 Procedure: AV FISTULA; Surgeon: Vivek Dias MD; Location: [facility]; Service: Vascul ar; Laterality: Right; brachiocephalic fistula creation Skin cancer excision mid forehead Allergies Allergen Reactions Penicillins Other (See Comments) Gemfibrozil Nausea and Vomiting Questran [Cholestyramine] Nausea and Vomiting (Not in a hospital admission) Scheduled Medications [START ON 03/04/2016] aspirin 81 mg Oral Daily with breakfast aspirin 325 mg Oral Once [START ON 03/04/2016] carvedilol 6.25 mg Oral BID WC pantoprazole 40 mg Intravenous BID Continuous Infusions furosemide heparin 50 units/mL 1,000 Units/hr (03/03/16 1232) PRN Medications heparin (porcine) 5000 unit/0.5mL, heparin (porcine) 5000 unit/0.5mL Family History Problem Relation Age of Onset Cancer Mother unknown type Heart disease Father 68 [place] Malig hypertherm Neg Hx Kidney failure Brother had renal transplant History Smoking status Never Smoker Smokeless tobacco Never Used History Alcohol Use No History Drug Use No Environmental/Chemical Exposure: unknown PHYSICAL EXAM Vital Signs: BP 151/74 mmHg | Pulse 91 | Temp(Src) 98.4 F (36.9 C) (Oral) | Resp 22 | Wt 101.152 kg (223 lb) | SpO2 92% Temp: [97.8 F (36.6 C)-98.4 F (36.9 C)] 98.4 F (36.9 C) (03/03 1034) BP: (138-159)/(71-81) 151/74 mmHg (03/03 1307) Heart Rate: [82-91] 91 (03/03 1307) Resp: [14-22] 22 (03/03 1307) SpO2: [92 %-97 %] 92 % (03/03 1307) Weight: [101.152 kg (223 lb)] 101.152 kg (223 lb) (03/03 0906) GENERAL: Morbidly obeseWell developed, well nourished elderly male, in no distre ss. Appears approximately stated age. HEENT: Normocephalic, atraumatic. EYES: Well healed iridectomies. PERRL, sclerae anicteric, no xanthelsasmas MOUTH: Oral mucosae moist, dentition adequate, no lesions noted NECK: No JVD, lymphadenopathy, thyromegaly, bruits. Carotid pulses are 1+ bilaterally a nd delayed LUNGS: Diffusely decreased breath sounds bilaterally, with no rales, rhonchi, minimal diff use expiratory wheezing noted, respirations unlabored HEART: Nondisplaced PMI, regular rate and rhythm, S1 normal, S2 diminished but audible. 2 -3/6 late peaking systolic crescendo decrescendo murmur at the base, radiating to the left s ternal border. No rubs or gallops noted. ABDOMEN: Obese. Soft, nontender, no organomegaly, masses or bruits. Bowel sounds are norm al in all 4 quadrants. The abdominal aortic pulsation is not palpable. EXTREMITIES: 1+ ankle edema bilaterally. Radial pulses 2+ on the left, nonpalpable on the right, where a brachiocephalic AV fistula surgical site is bandaged.. Femoral pulses are 2+ bilaterally without bruits. DP and PT pulses are 1+ bilaterally. SKIN: Warm and dry, capillary refill is normal, no lesions. NEUROLOGIC: Awake, alert and oriented x 3. No focal motor deficits. PSYCHIATRIC: Appropriate, affect appears normal DATA CBC: Lab Results Component Value Date WBC 6.99 03/02/2016 RBC 2.88* 03/02/2016 HGB 8.3* 03/02/2016 HGB 9.9* 08/28/2015 HCT 24.4* 03/02/2016 MCV 84.8 03/02/2016 MCH 28.8 03/02/2016 MCHC 34.0 03/02/2016 RDW 43.8 03/02/2016 PLT 131* 03/02/2016 MPV 9.9 03/02/2016 DIFFTYPE AUTOMATED 03/02/2016 CMP: Lab Results Component Value Date NA 143 03/02/2016 K 4.1 03/02/2016 CL 109 03/02/2016 CO2 23 03/02/2016 ANIONGAP 15 03/02/2016 GLUF 72 03/02/2016 BUN 58* 03/02/2016 CREATININE 8.2* 03/02/2016 CREATININE 5.79* 11/22/2015 BCR 7 03/02/2016 CA 8.3* 03/02/2016 CA 9.7 09/11/2015 PROT 5.7* 03/02/2016 ALB 2.8* 03/02/2016 GLOB 2.9 03/02/2016 BILITOT 0.3 03/02/2016 ALP 38 03/02/2016 AST 8* 03/02/2016 ALT 13 03/02/2016 EGFR 7* 03/02/2016 Magnesium: Lab Results Component Value Date MG 2.3 03/02/2016 Phosphorus: Lab Results Component Value Date PHOS 6.8* 03/02/2016 PT/INR: Lab Results Component Value Date INR 1.2 01/17/2014 PTT: Lab Results Component Value Date APTT <20* 01/17/2014 [APTT} Troponin: 1.8 Lab Results Component Value Date TROPONINI 0.021 03/02/2016 TROPONINI 0.027 03/01/2016 TROPONINI 0.026 03/01/2016 CPK: Lab Results Component Value Date CKTOTAL 124 03/02/2016 CKMB: Lab Results Component Value Date CKMB 2.4 03/02/2016 HgBA1c: Lab Results Component Value Date HGBA1C 8.6 08/01/2015 TSH: Lab Results Component Value Date TSH 0.61 12/30/2013 EKG: Normal sinus rhythm, rate 85, frequent unifocal PVCs. Nonspecific anterolateral ST abn ormalities that were not present on a previous tracing 03/01/16 Us Arm Right Mapping For Dialysis 02/29/2016 1. A brachiocephalic fistula may be the best choice, as the basilic vein has a low insertion point and there is a stenosis of the distal radial artery Left hand dominant patient Would correlate with individual surgical protocol for this individual patient Debbie ctronically signed by Aki Meyers MD on 02/29/2016 4:50 PM PROBLEM LIST Principal Problem: Acute diastolic congestive heart failure (HCC) Active Problems: Type 2 diabetes mellitus with diabetic nephropathy (HCC) Essential hypertension, benign Diabetic nephropathy (HCC) Stroke (HCC) Dyslipidemia Obesity Vitamin D deficiency Anemia of chronic renal failure, stage 5 (HCC) Aortic stenosis Chronic kidney disease, stage V (HCC) ASSESSMENT & PLAN 1. Acute NSTEMI, Killip class II, hemodynamically stable. He has been started on heparin, a spirin, and Coreg. He is on losartan. He will undergo diagnostic right and left heart cardia c catheterization to assess his coronary anatomy as well as his aortic stenosis tomorrow amarilys pascual. Diagnostic Cardiac Catheterization via femoral artery approach: the procedure, with its associated alternatives, benefits, and risks, the latter including but not limited to po ssible need for more than one vascular access site, , [place], CVA, bleeding (including the need for blood transfusion), vascular damage (including the need for emergent surgical repai r, including PCI/stent placement or CABG), renal failure (including the possible need for sh ort or long-term use of hemodialysis), allergic reactions/anaphylaxis, and the risks of mode rate anesthesia/sedation, were discussed in detail. No guarantees were given. All question s were answered. The patient verbalized understanding and gave informed consent for the pro cedure. 2. Severe aortic stenosis by echocardiography last month. 3. Stage V chronic kidney disease, right upper extremity brachiocephalic AV fistula created 2 days ago, but it will be sometime before this can be used. He will need dialysis access, and hemodialysis will need to be started on this admission. 4. Insulin requiring diabetes mellitus complicated by nephropathy and retinopathy 5. Essential hypertension, controlled 6. Hyperlipidemia, with metabolic syndrome 7. History of a right costovertebral angle, with minimal residual left arm numbness and tin gling, but no other residual deficits. 8. Mild obstructive sleep apnea, untreated 9. Moderately severe anemia, due to chronic kidney disease. Code Status: Prior Primary Care Physician: STAR DOLL Thank you for allowing me to participate in the care of this patient. See Dangelo MD 03/03/2016 2:00 PM documented in this e ncounter ED Notes Conversion Transaction, Provider Unknown - 03/10/2016 1:02 PM PDTFormatting of this note m ight be different from the original. ED Notes by Cortney Birch RN at 03/10/16 1302 Author: Cortney Birch RN Service: Cardiology Author Type: Registered Nurse Filed: 03/10/16 1303 Date of Service: 03/10/16 1302 Status: Signed Whitesmith: Cortney Birch RN (Registered Nurse) Patient is agitated and very uncooperative during procedure. Patient making attempts to pul l femoral sheaths out during procedure, contamination of puncture site possible. old, Bao Charles DO - 03/03/2016 9:30 AM PDT ED Provider Notes by aBo Lujan DO at 03/03/16 0961 Author: Bao Lujan DO Service: Emergency Department Author Type: Physician Filed: 03/03/16 1248 Date of Service: 03/03/16929 Status: Signed Whitesmith: Bao Lujan DO (Physician) [facility] Department of Emergency Medicine Pre-arrival Provider: Another ED Provider Name: Dr. Ga ([facility]) Pertinent History and Concerns: The patient presented with complaints of shortness of breat h and been ongoing since his shape. He [facility] and was discharged yesterday. During the course of his time here at this facility, he had a transient episode of hypotension and was given IV fluids, and now has overt congestive he art failure. The patient does have a history of renal failure and has a dialysis fistula in place. Relevant Labs or Studies: Troponin: 0.387, EKG: No acute ST-T changes Relevant Medications: Lasix: Improved (03/03/16 0645 : Bao Lujan DO) 12:48 PM History of Present Illness Patient Identification Brianna Vital is a 70 y.o. male. Patient information was obtained from patient and past medical records. History/Exam limitations: none. Patient presented to the Emergency Department by: Ambulance Chief Complaint Chief Complaint Patient presents with Chest Pain Patient is a 70 y.o. male presenting with shortness of breath. The history is provided by t he patient and medical records. History limited by: Nothing. Shortness of Breath The current episode started yesterday. The onset was gradual. The problem occurs continuous ly. The problem has been gradually improving (After treatment from the outside facility). Th e problem is mild. Nothing relieves the symptoms. The symptoms are aggravated by activity an d a supine position. Associated symptoms include shortness of breath. Pertinent negatives in clude no chest pain, no chest pressure, no fever, no sore throat, no cough and no wheezing. He has had no prior steroid use. His past medical history does not include asthma or past wh eezing. He has been behaving normally. Urine output has decreased. There were no sick contac ts. Recently, medical care has been given at another facility. Services received include med ications given and tests performed. Past Medical History Diagnosis Date Hypertension Hyperlipidemia Diabetes mellitus, type 2 (HCC) TIA (transient ischemic attack) 2010 Heart murmur Sleep apnea dx light apnea Chronic kidney disease Anemia of chronic renal failure 01/24/2012 Acute upper GI bleed 01/18/2014 Stroke (HCC) 2010 surface stroke Acute diastolic congestive heart failure (HCC) 03/03/2016 Past Surgical History Procedure Laterality Date Colonoscopy Cataract extraction 2004? Esophagogastroduodenoscopy N/A 01/18/2014 Procedure: ESOPHAGOGASTRODUODENOSCOPY; Surgeon: Caitlyn Khan MD; Location: [facility]; Service: Gastroenterology; Laterality: N/A; Av fistula placement Right 03/01/2016 Procedure: AV FISTULA; Surgeon: Vivek Dias MD; Location: [facility]; Service: Vascul ar; Laterality: Right; brachiocephalic fistula creation Prior to Admission medications Medication Sig Start Date End Date Taking? Authorizing Provider amlodipine (NORVASC) 10 MG tablet Take 5 mg by mouth daily. Historical Provider aspirin 81 MG tablet Take 81 mg by mouth daily. Historical Provider atorvastatin (LIPITOR) 40 MG tablet Take 40 mg by mouth nightly. Historical Provider Cholecalciferol (VITAMIN D PO) Take 10,000 Int'l Units by mouth every evening. Historica l Provider furosemide (LASIX) 20 MG tablet Take 40 mg by mouth daily. Two tablets daily. Historical Provider glucose blood test strip 1 each by Other route as needed. Use as instructed Historical P rovidelia hydrALAZINE (APRESOLINE) 10 MG tablet Take 1 tablet by mouth 3 (three) times daily. 10/20/15 EDSON Rosenberg HYDROcodone-acetaminophen (NORCO) 5-325 MG per tablet Take 1-2 tablets by mouth every 6 (si x) hours as needed for Pain. 03/01/16 03/11/16 Vivek Dias MD insulin glargine (TOUJEO) 300 UNIT/ML injection Inject 60 Units into the skin every morning . Historical Provider losartan (COZAAR) 50 MG tablet Take 50 mg by mouth daily. Historical Provider sevelamer (RENVELA) 800 MG tablet Take 1 tablet by mouth 3 (three) times daily with meals. During meals. 01/30/16 01/29/17 EDSON Rosenberg sitagliptan (JANUVIA) 100 MG tablet Take 50 mg by mouth daily. Historical Provider sodium bicarbonate 650 MG tablet Take 1 tablet by mouth 4 (four) times daily. 01/30/16 EDSON Rosenberg terazosin (HYTRIN) 5 MG capsule Take 10 mg by mouth nightly. Historical Provider Allergies Allergen Reactions Penicillins Other (See Comments) Gemfibrozil Nausea and Vomiting Questran [Cholestyramine] Nausea and Vomiting Social History Social History Marital Status: Spouse Name: N/A Number of Children: 2 Years of Education: N/A Occupational History retired Social History Main Topics Smoking status: Never Smoker Smokeless tobacco: Never Used Alcohol Use: No Drug Use: No Sexual Activity: Partners: Female Control/ Protection: Abstinence Other Topics Concern Not on file Social History Narrative Lives in [facility], independent with activities of daily living, no falls, full co de. Family History Problem Relation Age of Onset Cancer Mother Heart disease Father Malig hypertherm Neg Hx Review of Systems Review of Systems Constitutional: Negative for fever, chills and malaise/fatigue. HENT: Negative for sore throat. Respiratory: Positive for shortness of breath. Negative for cough and wheezing. Cardiovascular: Negative for chest pain and palpitations. Gastrointestinal: Negative for nausea and vomiting. Musculoskeletal: Negative for myalgias and joint pain. Skin: Negative for itching and rash. Neurological: Negative for headaches. All other systems reviewed and are negative. Physical Exam BP 141/73 mmHg | Pulse 87 | Temp(Src) 97.8 F (36.6 C) | Resp 16 | SpO2 95% Vital signs interpretation: Normal Pulse Oximetry interpretation: Normal Physical Exam Constitutional: He is oriented to person, place, and time. He appears well-developed and we ll-nourished. No distress. HENT: Head: Atraumatic. Right Ear: External ear normal. Left Ear: External ear normal. Eyes: Conjunctivae are normal. Right eye exhibits no discharge. Left eye exhibits no discha rge. Neck: Normal range of motion. Neck supple. Cardiovascular: Normal rate, regular rhythm and normal heart sounds. Exam reveals no frict ion rub. No murmur heard. Pulmonary/Chest: Effort normal. No respiratory distress. He has no wheezes. He has rales in the right middle field, the right lower field, the left middle field and the left lower fie ld. Abdomina/Gl: He exhibits no distension. Round Genitourinary: Deferred Musculoskeletal: Normal range of motion. He exhibits no edema or deformity. Neurological: He is alert and oriented to person, place, and time. No cranial nerve deficit . Skin: Skin is warm and dry. No rash noted. Psychiatric: He has a normal mood and affect. His behavior is normal. Judgment and thought content normal. Nursing note and vitals reviewed. Medical Decision Making and Emergency Department Course ED Department Course The patient was initially seen and evaluated at an outside facility and then transferred to this facility. The patient denies any chest pain associated with these symptoms, he does re port shortness of breath. During his evaluation at the outside facility was discovered that he has pulmonary edema and an elevated BNP consistent with congestive heart failure, he also does not have any acute ischemic EKG changes. The patient was noted to have an elevated tro ponin and due to the complex nature of the patient was determined that he be best treated by being transferred to this facility. The patient is observed to be resting comfortably and h as oxygen saturation of 93-94 percent on room air. I will repeat the BNP (the patient states he reserved a small dose of Lasix prior to arrival) and he will repeat the troponin and the n contact the hospitalist team to arrange for admission. Differential diagnosis includes bu t is not limited to: Congestive heart failure, acute coronary syndrome, acute ischemia, acut e on chronic renal failure [address] Oro who agrees with care plan and will see patient in the ED, he requests that I contact the patient's printed circuit layout taper. I discussed the patient with Dr. Espinosa, flatwork ironer for Dr. Ly the patient's printed circuit layout taper. He inquired if the patient had been able to make urine and I informed him that shortly after arrival, the patient stated that he needed to pass urine. Records Reviewed Old medical records. Nursing notes. Laboratory Evaluation Results Procedure Component Value Ref Range Date/Time BNP [[id number]] (Abnormal) Collected: 03/03/16911 Order Status: Completed Specimen Information: Blood Updated: 03/03/16939 BRAIN NATRIURETIC PEPTIDE 3200 (H) 0 - 100 pg/mL POC cardiac troponin [[id number]] (Abnormal) Collected: 03/03/16918 Order Status: Completed Updated: 03/03/1632 POC CARDIAC TROPONIN 1.80 (HH) 0.00 - 0.10 ng/mL I personally reviewed the lab results and they have been posted to the chart. Pertinent po sitive and negative findings have been addressed appropriately. Radiology and EKG Evaluation Imaging Results None EKG Interpretation Time: 910 Rhythm: Sinus Ventricular Rate: 85 AR Interval: Normal ST Segments: Normal Significant Q-waves: None Blocks: None Additional Comments: No acute ischemic changes, no significant changes compared to EKG of same date earlier time. ED Diagnoses Final diagnoses Congestive heart failure, unspecified congestive heart failure chronicity, unspecified con gestive heart failure type (HCC) Renal failure Disposition: ED Disposition Admit/Observation Bed request special needs: Telemetry Diagnosis?: chf exacerbation, renal failure (chronic), elevated troponin Follow-up Information None Discharge Medications: New Prescriptions No new medications Dr. Bao Lujan D.O. Dictation software, Screen Tonic, used which may contain error for similar sounding words even af ter review. Personal communication requested for any clarification. Procedures Additional Documentation Procedures Bao Lujan, 03/03/16 1248 onversio n Transaction, Provider Unknown - 03/03/2016 9:12 AM PDTFormatting of this note might be di fferent from the original. ED Notes by Kyle Marquez at 03/03/16911 Author: Kyle Marquez Service: (none) Author Type: Child Care Team Lead Filed: 03/03/16911 Date of Service: 03/03/16911 Status: Signed Whitesmith: Kyle Marquez (Child Care Team Lead) EKG completed and shown to Dr. Lujan at bedside Kyle Marquez 03/03/16911 onver rosie Transaction, Provider Unknown - 03/03/2016 9:01 AM PDT ED Notes by Miriam Galicia RN at 03/03/16900 Author: Miriam Galicia RN Service: (none) Author Type: Registered Nurse Filed: 03/03/16900 Date of Service: 03/03/16900 Status: Signed Whitesmith: Miriam Galicia RN (Registered Nurse) Bed: 04 Expected date: Expected time: Means of arrival: Comments: Fernando Vital onver rosie Transaction, Provider Unknown - 03/03/2016 7:07 AM PDT ED Notes by Roshni Fishman RN at 03/03/16706 Author: Roshni Fishman RN Service: (none) Author Type: Registered Nurse Filed: 03/03/16715 Date of Service: 03/03/16706 Status: Signed Whitesmith: Roshni Fishman RN (Registered Nurse) Report from Fernando at [facility]: Pt was seen at [facility] this past week for AV fistula plac ement. Had an episode of hypotension and bradycardia following placement and was given fluid s. Discharged 03/02 with trop 0.02 and BNP 58. Pt presented to [facility] with c/o CP and SOB, found to have trop of 0.387 and BNP of 2930. Transfer dx of NSTEMI, CHF, and ne ed for dialysis. Given 324mg ASA and 40mg lasix IV. Roshni Fishman RN 03/03/16 0716 docume nted in this encounter Miscellaneous Notes Op Note - Leyla Sweet MD - 03/13/2016 6:53 PM PDTFormatting of this note migh t be different from the original. Brief Op Note by eLyla Sweet MD at 03/13/161852 Author: Leyla Sweet MD Service: Cardiology Author Type: Physician Filed: 03/13/161855 Date of Service: 03/13/161852 Status: Signed Whitesmith: Leyla Sweet MD (Physician) [facility] Service: Cardiology Brief Op Note Severe , mean gradient 39.9 mmHg Successful PTCA/stent proximal and mid RCA using 2.75X23 and 2.5X38 mm overlapping Xience D ESs Failed Perclose closure left BUSINESS SUPPORT COORDINATOR, hemosasis Achieved using manual compression and FemStop Leyla Sweet MD 03/13/2016 p Note - Leyla Urias MD - 03/10/2016 2:44 PM PDTFormatting of this note might be differen t from the original. Brief Op Note by Leyla Sweet MD at 03/10/16 1905 Author: Leyla Sweet MD Service: Cardiology Author Type: Physician Filed: 03/10/16 3271 Date of Service: 03/10/16 144 Status: Signed Whitesmith: Leyla Sweet MD (Physician) [facility] Service: Cardiology Brief Op Note - Severe Mid LAD with FFR 0.63 - Severe first diagonal - Successful PTCA/stent proximal first diagonal using 2.25X15 mm Xience Alpine - Successful PTCA/stent proximal to mid LAD using 3.25X38 mm Xience Alpine MESSI, postdilated using 3.25 noncompliant balloons. - Successful kissing balloons of LAD and diagonal bifurcation ising noncompliant balloons. Recommend - ASA 81 mg for life - Ticagrelor 90 mg BID for 12 month - Integrelin for 12 hours - Continue carvedilol, atorvastatin - Hold amlodipine, restart tomorrow if BP elevated. - Will need staged PCI RCA Leyla Sweet MD 03/10/2016 lan of Care - Michael Al PA-C - 03/08/2016 1:40 PM PDTFormatting of this note might be d ifferent from the original. Plan of Care by Michael Al PA-C at 03/08/16 1340 Author: Michael Al PA-C Service: Cardiac, Thoracic, and Vascular Surgery [facility] Type: Physician Director [employer]olesale - Certified Filed: 03/08/16 1420 Date of Service: 03/08/16 1340 Status: Attested Whitesmith: Michael Al PA-C (Physician Director Wholesale - Certified) Cosigner: Jesús Pantoja MD at 03/11/16 1510 Attestation signed by Jesús Pantoja MD at 03/11/16 1510 I have examined Brianna Vital, reviewed the notes, assessments, and/or procedures perfor med Alexandre Al PA-C, I concur with her documentation of Brianna Vital. High Risk Meeting 03/08/16: An interdisciplinary high risk meeting was established for this patient, Brianna Jamesterence pat, 43, for 03/08/16 at 0730 am. Participants invited/ present: Cardiologists: no one present. Cardiac Anesthesiology: Dr. Escalera Intensive Care Physicians: no one present. Nephrology: no one present. Cardiothoracic Surgery Team: [place] Simons PA-C Dr. Chaugle Brianna Vital is a 70 year old male with with past medical history of CKD Stage 5, S/ P Fistula Formation on 03/01/[address] Dias, CHF, Diastolic Dysfunction (EF 30-35%), HTN, H LD and DM Type 2 (A1C 6.8%),who was admitted due to increasing dyspnea and decreased urinary out put. Labs showed elevated creatinine of 8.1, GFR 7 consistent with an acute NSTEMI (Tro ponin peak of 4.57), while EKG showed only mild anterolateral ST abnormalities and frequent unifocal PVCs. Cardiology and Nephrology services were consulted, started on oxygen and IV L asix with minimal improvement. His CXR showed evidence of bilateral pulmonary edema. S/P Car diac catheterization by Dr. Dangelo to found to have moderate three vessel disease and severe a ortic stenosis (aortic valve area 0.96, Velocity 4.1m/s, gradient of 57mmHg). Hemodialysis catheter placed on the , patient subsequently has undergone daily hemodia lysis, with improved respiratory failure, off BiPAP presently on [address]anto[address] and [address] Escalera discussed the case thoroughly, reviewed the cath, echo, labs, STS risk scores, and have decided to try to optimize the patient here until possible surgical i ntervention. Thanks, Michael lA PA-C 03/08/2016 2:20 PM lan of Ca re - Conversion Transaction, Provider Unknown - 03/07/2016 12:21 AM PDTFormatting of this no te might be different from the original. Plan of Care by Taylor Wilburn RN at 03/07/1620 Author: Taylor Wilburn RN Service: (none) Author Type: Registered Nurse Filed: 03/07/1624 Date of Service: 03/07/1620 Status: Signed Whitesmith: Taylor Wilburn RN (Registered Nurse) Patient alert and oriented x4. Daughter visiting and asking when the doctors are coming in the morning. Advised that they would be in some time between 8-12. Also questioned why trevor coates was getting blood sugar checks and insulin administration. Day nurse stated that ther e are no orders for it. Patient seemed anxious and complained of being cold a lot, warm bacilio nkets given to him and he verbalized relief. Family states that that is normal for him. VS stable. Will continue to monitor. lan o f Care - Gabo, Stalin Paulino MD - 03/04/2016 5:23 PM PDTFormatting of this note might be d ifferent from the original. Plan of Care by Stalin Ayon MD at 03/04/161722 Author: Stailn Ayon MD Service: Hospitalist Author Type: Physician Filed: 03/04/16 3008 Date of Service: 03/04/161722 Status: Signed Whitesmith: Stalin Ayon MD (Physician) Please review initial H&P and progress notes for details. Patient was scheduled for a tunneled catheter placement for hemodialysis and developed shor tness of breath symptoms. He tolerated the procedure but was dyspneic and required 3 to 4 li melissa[address] of oxygen. [address] Espinosa was arranging for immediate hemodialysis for volume overloaded s glover and pulmonary edema. Plan: Start BIPAP support Check CXR and ABG's Start Unasyn for possible aspiration and pneumonia. Hemodialysis per Nephrology services. Close monitoring on the floor otherwise ICU level of care. lan of Care - C onversion Transaction, Provider Unknown - 03/04/2016 7:53 AM PDTFormatting of this note kelsey ht be different from the original. Plan of Care by Victoria Castro RN at 03/04/16752 Author: Victoria Castro RN Service: (none) Author Type: Registered Nurse Filed: 03/04/16752 Date of Service: 03/04/16752 Status: Signed Whitesmith: Victoria Castro RN (Registered Nurse) Mobility/activity is maintained at optimum level for patient Progressing Fluid and electrolyte balance are achieved/maintained Progressing Patient is adequately oxygenated and ventilation is improved Progressing Patient's vitals signs are stable Progressing Patient's pain/discomfort is manageable Progressing Patient will be injury free during hospitalization Progressing docume nted in this encounter Plan of Treatment Not on filedocumented as of this encounter Procedures + +--------+ + + + | Procedure Name | Priori | Date/Time | Associated Diagnosis | Comments | | | ty | | | | + +--------+ + + + | POC GLUCOSE | Routin | 03/15/2016 | | Results for this | | | e | 3:58 PM | | procedure are in the | | | | PDT | | results section. | + +--------+ + + + | POC GLUCOSE | Routin | 03/15/2016 | | Results for this | | | e | 11:42 AM | | procedure are in the | | | | PDT | | results section. | + +--------+ + + + | POC GLUCOSE | Routin | 03/15/2016 | | Results for this | | | e | 5:28 AM | | procedure are in the | | | | PDT | | results section. | + +--------+ + + + | CBC NO DIFFERENTIAL | Routin | 03/15/2016 | | Results for this | | | e | 4:52 AM | | procedure are in the | | | | PDT | | results section. | + +--------+ + + + | COMPREHENSIVE | Routin | 03/15/2016 | | Results for this | | METABOLIC PANEL | e | 4:52 AM | | procedure are in the | | | | PDT | | results section. | + +--------+ + + + | POC GLUCOSE | Routin | 03/14/2016 | | Results for this | | | e | 9:26 PM | | procedure are in the | | | | PDT | | results section. | + +--------+ + + + | POC GLUCOSE | Routin | 03/14/2016 | | Results for this | | | e | 4:07 PM | | procedure are in the | | | | PDT | | results section. | + +--------+ + + + | CBC NO DIFFERENTIAL | Routin | 03/14/2016 | | Results for this | | | e | 12:20 PM | | procedure are in the | | | | PDT | | results section. | + +--------+ + + + | PHOSPHORUS | Routin | 03/14/2016 | | Results for this | | | e | 12:20 PM | | procedure are in the | | | | PDT | | results section. | + +--------+ + + + | MAGNESIUM | Routin | 03/14/2016 | | Results for this | | | e | 12:20 PM | | procedure are in the | | | | PDT | | results section. | + +--------+ + + + | BASIC METABOLIC | Routin | 03/14/2016 | | Results for this | | PANEL | e | 12:20 PM | | procedure are in the | | | | PDT | | results section. | + +--------+ + + + | POC GLUCOSE | Routin | 03/14/2016 | | Results for this | | | e | 12:19 PM | | procedure are in the | | | | PDT | | results section. | + +--------+ + + + | POC GLUCOSE | Routin | 03/14/2016 | | Results for this | | | e | 5:58 AM | | procedure are in the | | | | PDT | | results section. | + +--------+ + + + | POC GLUCOSE | Routin | 03/13/2016 | | Results for this | | | e | 9:31 PM | | procedure are in the | | | | PDT | | results section. | + +--------+ + + + | CV CARDIAC PROCEDURE | Routin | 03/13/2016 | | Results for this | | | e | 6:28 PM | | procedure are in the | | | | PDT | | results section. | + +--------+ + + + | CV CARDIAC PROCEDURE | Routin | 03/13/2016 | | Results for this | | | e | 6:28 PM | | procedure are in the | | | | PDT | | results section. | + +--------+ + + + | ACTIVATED CLOTTING | Routin | 03/13/2016 | | Results for this | | TIME | e | 6:08 PM | | procedure are in the | | | | PDT | | results section. | + +--------+ + + + | ACTIVATED CLOTTING | Routin | 03/13/2016 | | Results for this | | TIME | e | 5:33 PM | | procedure are in the | | | | PDT | | results section. | + +--------+ + + + | ACTIVATED CLOTTING | Routin | 03/13/2016 | | Results for this | | TIME | e | 5:30 PM | | procedure are in the | | | | PDT | | results section. | + +--------+ + + + | ACTIVATED CLOTTING | Routin | 03/13/2016 | | Results for this | | TIME | e | 5:17 PM | | procedure are in the | | | | PDT | | results section. | + +--------+ + + + | POC GLUCOSE | Routin | 03/13/2016 | | Results for this | | | e | 11:47 AM | | procedure are in the | | | | PDT | | results section. | + +--------+ + + + | POC GLUCOSE | Routin | 03/13/2016 | | Results for this | | | e | 9:37 AM | | procedure are in the | | | | PDT | | results section. | + +--------+ + + + | POC GLUCOSE | Routin | 03/13/2016 | | Results for this | | | e | 5:20 AM | | procedure are in the | | | | PDT | | results section. | + +--------+ + + + | CBC NO DIFFERENTIAL | Routin | 03/13/2016 | | Results for this | | | e | 4:32 AM | | procedure are in the | | | | PDT | | results section. | + +--------+ + + + | BASIC METABOLIC | Routin | 03/13/2016 | | Results for this | | PANEL | e | 4:32 AM | | procedure are in the | | | | PDT | | results section. | + +--------+ + + + | POC GLUCOSE | Routin | 03/12/2016 | | Results for this | | | e | 9:02 PM | | procedure are in the | | | | PDT | | results section. | + +--------+ + + + | POC GLUCOSE | Routin | 03/12/2016 | | Results for this | | | e | 3:41 PM | | procedure are in the | | | | PDT | | results section. | + +--------+ + + + | POC GLUCOSE | Routin | 03/12/2016 | | Results for this | | | e | 11:22 AM | | procedure are in the | | | | PDT | | results section. | + +--------+ + + + | POC GLUCOSE | Routin | 03/12/2016 | | Results for this | | | e | 5:10 AM | | procedure are in the | | | | PDT | | results section. | + +--------+ + + + | POC GLUCOSE | Routin | 03/11/2016 | | Results for this | | | e | 9:56 PM | | procedure are in the | | | | PDT | | results section. | + +--------+ + + + | POC GLUCOSE | Routin | 03/11/2016 | | Results for this | | | e | 4:19 PM | | procedure are in the | | | | PDT | | results section. | + +--------+ + + + | POC GLUCOSE | Routin | 03/11/2016 | | Results for this | | | e | 11:35 AM | | procedure are in the | | | | PDT | | results section. | + +--------+ + + + | POC GLUCOSE | Routin | 03/11/2016 | | Results for this | | | e | 9:38 AM | | procedure are in the | | | | PDT | | results section. | + +--------+ + + + | ECG 12 LEAD | Routin | 03/11/2016 | | Results for this | | | e | 6:31 AM | | procedure are in the | | | | PDT | | results section. | + +--------+ + + + | POC GLUCOSE | Routin | 03/11/2016 | | Results for this | | | e | 5:02 AM | | procedure are in the | | | | PDT | | results section. | + +--------+ + + + | EXTERNAL LAB: CBC | Routin | 03/11/2016 | | Results for this | | | e | 4:26 AM | | procedure are in the | | | | PDT | | results section. | + +--------+ + + + | BASIC METABOLIC | Routin | 03/11/2016 | | Results for this | | PANEL | e | 4:26 AM | | procedure are in the | | | | PDT | | results section. | + +--------+ + + + | POC GLUCOSE | Routin | 03/10/2016 | | Results for this | | | e | 9:00 PM | | procedure are in the | | | | PDT | | results section. | + +--------+ + + + | ACTIVATED CLOTTING | Routin | 03/10/2016 | | Results for this | | TIME | e | 6:19 PM | | procedure are in the | | | | PDT | | results section. | + +--------+ + + + | POC GLUCOSE | Routin | 03/10/2016 | | Results for this | | | e | 5:21 PM | | procedure are in the | | | | PDT | | results section. | + +--------+ + + + | ECG 12 LEAD | Routin | 03/10/2016 | | Results for this | | | e | 3:33 PM | | procedure are in the | | | | PDT | | results section. | + +--------+ + + + | CV CARDIAC PROCEDURE | Routin | 03/10/2016 | | Results for this | | | e | 2:25 PM | | procedure are in the | | | | PDT | | results section. | + +--------+ + + + | CV CARDIAC PROCEDURE | Routin | 03/10/2016 | | Results for this | | | e | 2:25 PM | | procedure are in the | | | | PDT | | results section. | + +--------+ + + + | CV CARDIAC PROCEDURE | Routin | 03/10/2016 | | Results for this | | | e | 2:25 PM | | procedure are in the | | | | PDT | | results section. | + +--------+ + + + | ACTIVATED CLOTTING | Routin | 03/10/2016 | | Results for this | | TIME | e | 2:06 PM | | procedure are in the | | | | PDT | | results section. | + +--------+ + + + | ACTIVATED CLOTTING | Routin | 03/10/2016 | | Results for this | | TIME | e | 12:32 PM | | procedure are in the | | | | PDT | | results section. | + +--------+ + + + | ACTIVATED CLOTTING | Routin | 03/10/2016 | | Results for this | | TIME | e | 12:15 PM | | procedure are in the | | | | PDT | | results section. | + +--------+ + + + | ACTIVATED CLOTTING | Routin | 03/10/2016 | | Results for this | | TIME | e | 12:14 PM | | procedure are in the | | | | PDT | | results section. | + +--------+ + + + | ACTIVATED CLOTTING | Routin | 03/10/2016 | | Results for this | | TIME | e | 12:00 PM | | procedure are in the | | | | PDT | | results section. | + +--------+ + + + | ACTIVATED CLOTTING | Routin | 03/10/2016 | | Results for this | | TIME | e | 11:39 AM | | procedure are in the | | | | PDT | | results section. | + +--------+ + + + | ACTIVATED CLOTTING | Routin | 03/10/2016 | | Results for this | | TIME | e | 11:33 AM | | procedure are in the | | | | PDT | | results section. | + +--------+ + + + | ACTIVATED CLOTTING | Routin | 03/10/2016 | | Results for this | | TIME | e | 11:19 AM | | procedure are in the | | | | PDT | | results section. | + +--------+ + + + | POC GLUCOSE | Routin | 03/10/2016 | | Results for this | | | e | 5:59 AM | | procedure are in the | | | | PDT | | results section. | + +--------+ + + + | POC GLUCOSE | Routin | 03/09/2016 | | Results for this | | | e | 10:01 PM | | procedure are in the | | | | PDT | | results section. | + +--------+ + + + | POC GLUCOSE | Routin | 03/09/2016 | | Results for this | | | e | 4:22 PM | | procedure are in the | | | | PDT | | results section. | + +--------+ + + + | POC GLUCOSE | Routin | 03/09/2016 | | Results for this | | | e | 11:52 AM | | procedure are in the | | | | PDT | | results section. | + +--------+ + + + | EXTERNAL LAB: KELLY | Routin | 03/09/2016 | | Results for this | | | e | 11:49 AM | | procedure are in the | | | | PDT | | results section. | + +--------+ + + + | COMPREHENSIVE | Routin | 03/09/2016 | | Results for this | | METABOLIC PANEL | e | 11:49 AM | | procedure are in the | | | | PDT | | results section. | + +--------+ + + + | POC GLUCOSE | Routin | 03/09/2016 | | Results for this | | | e | 10:43 AM | | procedure are in the | | | | PDT | | results section. | + +--------+ + + + | POC GLUCOSE | Routin | 03/09/2016 | | Results for this | | | e | 5:53 AM | | procedure are in the | | | | PDT | | results section. | + +--------+ + + + | POC GLUCOSE | Routin | 03/08/2016 | | Results for this | | | e | 8:31 PM | | procedure are in the | | | | PDT | | results section. | + +--------+ + + + | POC GLUCOSE | Routin | 03/08/2016 | | Results for this | | | e | 4:15 PM | | procedure are in the | | | | PDT | | results section. | + +--------+ + + + | POC GLUCOSE | Routin | 03/08/2016 | | Results for this | | | e | 11:16 AM | | procedure are in the | | | | PDT | | results section. | + +--------+ + + + | EXTERNAL LAB: CBC | Routin | 03/08/2016 | | Results for this | | | e | 7:07 AM | | procedure are in the | | | | PDT | | results section. | + +--------+ + + + | COMPREHENSIVE | Routin | 03/08/2016 | | Results for this | | METABOLIC PANEL | e | 7:07 AM | | procedure are in the | | | | PDT | | results section. | + +--------+ + + + | POC GLUCOSE | Routin | 03/08/2016 | | Results for this | | | e | 5:50 AM | | procedure are in the | | | | PDT | | results section. | + +--------+ + + + | IRON AND IRON | Routin | 03/08/2016 | | Results for this | | BINDING CAPACITY | e | 3:25 AM | | procedure are in the | | | | PDT | | results section. | + +--------+ + + + | VITAMIN D, | Routin | 03/08/2016 | | Results for this | | DEFICIENCY SCREEN | e | 3:25 AM | | procedure are in the | | (25-HYDROXY) | | PDT | | results section. | + +--------+ + + + | FERRITIN | Routin | 03/08/2016 | | Results for this | | | e | 3:25 AM | | procedure are in the | | | | PDT | | results section. | + +--------+ + + + | POC GLUCOSE | Routin | 03/07/2016 | | Results for this | | | e | 9:32 PM | | procedure are in the | | | | PDT | | results section. | + +--------+ + + + | POC GLUCOSE | Routin | 03/07/2016 | | Results for this | | | e | 4:20 PM | | procedure are in the | | | | PDT | | results section. | + +--------+ + + + | POC GLUCOSE | Routin | 03/07/2016 | | Results for this | | | e | 11:13 AM | | procedure are in the | | | | PDT | | results section. | + +--------+ + + + | POC GLUCOSE | Routin | 03/07/2016 | | Results for this | | | e | 8:45 AM | | procedure are in the | | | | PDT | | results section. | + +--------+ + + + | CBC NO DIFFERENTIAL | Routin | 03/07/2016 | | Results for this | | | e | 3:56 AM | | procedure are in the | | | | PDT | | results section. | + +--------+ + + + | BASIC METABOLIC | Routin | 03/07/2016 | | Results for this | | PANEL | e | 3:56 AM | | procedure are in the | | | | PDT | | results section. | + +--------+ + + + | POC GLUCOSE | Routin | 03/06/2016 | | Results for this | | | e | 4:19 PM | | procedure are in the | | | | PDT | | results section. | + +--------+ + + + | POC GLUCOSE | Routin | 03/06/2016 | | Results for this | | | e | 11:18 AM | | procedure are in the | | | | PDT | | results section. | + +--------+ + + + | POC GLUCOSE | Routin | 03/06/2016 | | Results for this | | | e | 5:11 AM | | procedure are in the | | | | PDT | | results section. | + +--------+ + + + | CBC NO DIFFERENTIAL | Routin | 03/06/2016 | | Results for this | | | e | 4:19 AM | | procedure are in the | | | | PDT | | results section. | + +--------+ + + + | BASIC METABOLIC | Routin | 03/06/2016 | | Results for this | | PANEL | e | 4:19 AM | | procedure are in the | | | | PDT | | results section. | + +--------+ + + + | POC GLUCOSE | Routin | 03/05/2016 | | Results for this | | | e | 9:03 PM | | procedure are in the | | | | PDT | | results section. | + +--------+ + + + | POC GLUCOSE | Routin | 03/05/2016 | | Results for this | | | e | 4:09 PM | | procedure are in the | | | | PDT | | results section. | + +--------+ + + + | ECHO COMPLETE | Routin | 03/05/2016 | | Results for this | | | e | 2:40 PM | | procedure are in the | | | | PDT | | results section. | + +--------+ + + + | POC GLUCOSE | Routin | 03/05/2016 | | Results for this | | | e | 11:16 AM | | procedure are in the | | | | PDT | | results section. | + +--------+ + + + | POC GLUCOSE | Routin | 03/05/2016 | | Results for this | | | e | 5:28 AM | | procedure are in the | | | | PDT | | results section. | + +--------+ + + + | EXTERNAL LAB: CBC | Routin | 03/05/2016 | | Results for this | | | e | 4:04 AM | | procedure are in the | | | | PDT | | results section. | + +--------+ + + + | LIPID PANEL | Routin | 03/05/2016 | | Results for this | | | e | 4:04 AM | | procedure are in the | | | | PDT | | results section. | + +--------+ + + + | COMPREHENSIVE | Routin | 03/05/2016 | | Results for this | | METABOLIC PANEL | e | 4:04 AM | | procedure are in the | | | | PDT | | results section. | + +--------+ + + + | HEPATITIS B SURFACE | Routin | 03/04/2016 | | Results for this | | AG | e | 9:21 PM | | procedure are in the | | | | PDT | | results section. | + +--------+ + + + | POC GLUCOSE | Routin | 03/04/2016 | | Results for this | | | e | 9:17 PM | | procedure are in the | | | | PDT | | results section. | + +--------+ + + + | POC GLUCOSE | Routin | 03/04/2016 | | Results for this | | | e | 6:42 PM | | procedure are in the | | | | PDT | | results section. | + +--------+ + + + | XR CHEST 1 VIEW | Routin | 03/04/2016 | | Results for this | | | e | 6:31 PM | | procedure are in the | | | | PDT | | results section. | + +--------+ + + + | IR PLACEMENT | Routin | 03/04/2016 | | Results for this | | TUNNELED CENTRAL | e | 5:58 PM | | procedure are in the | | VENOUS CATHETER > 5 | | PDT | | results section. | | YEARS | | | | | + +--------+ + + + | US GUIDED VASCULAR | Routin | 03/04/2016 | | Results for this | | ACCESS | e | 5:58 PM | | procedure are in the | | | | PDT | | results section. | + +--------+ + + + | POC GLUCOSE | Routin | 03/04/2016 | | Results for this | | | e | 4:03 PM | | procedure are in the | | | | PDT | | results section. | + +--------+ + + + | POC GLUCOSE | Routin | 03/04/2016 | | Results for this | | | e | 11:21 AM | | procedure are in the | | | | PDT | | results section. | + +--------+ + + + | ECG 12 LEAD | Routin | 03/04/2016 | | Results for this | | | e | 11:19 AM | | procedure are in the | | | | PDT | | results section. | + +--------+ + + + | CV CARDIAC PROCEDURE | Routin | 03/04/2016 | | Results for this | | | e | 10:31 AM | | procedure are in the | | | | PDT | | results section. | + +--------+ + + + | EXTERNAL LAB: CBC | Routin | 03/04/2016 | | Results for this | | | e | 5:50 AM | | procedure are in the | | | | PDT | | results section. | + +--------+ + + + | PTT | Routin | 03/04/2016 | | Results for this | | | e | 5:50 AM | | procedure are in the | | | | PDT | | results section. | + +--------+ + + + | TSH | Routin | 03/04/2016 | | Results for this | | | e | 5:50 AM | | procedure are in the | | | | PDT | | results section. | + +--------+ + + + | PHOSPHORUS | Routin | 03/04/2016 | | Results for this | | | e | 5:50 AM | | procedure are in the | | | | PDT | | results section. | + +--------+ + + + | MAGNESIUM | Routin | 03/04/2016 | | Results for this | | | e | 5:50 AM | | procedure are in the | | | | PDT | | results section. | + +--------+ + + + | HEMOGLOBIN A1C | Routin | 03/04/2016 | | Results for this | | | e | 5:50 AM | | procedure are in the | | | | PDT | | results section. | + +--------+ + + + | COMPREHENSIVE | Routin | 03/04/2016 | | Results for this | | METABOLIC PANEL | e | 5:50 AM | | procedure are in the | | | | PDT | | results section. | + +--------+ + + + | POC GLUCOSE | Routin | 03/04/2016 | | Results for this | | | e | 5:34 AM | | procedure are in the | | | | PDT | | results section. | + +--------+ + + + | MRSA NAAT | Timed | 03/04/2016 | | Results for this | | | | 4:54 AM | | procedure are in the | | | | PDT | | results section. | + +--------+ + + + | TROPONIN I | Routin | 03/03/2016 | | Results for this | | | e | 11:54 PM | | procedure are in the | | | | PDT | | results section. | + +--------+ + + + | CK-MB | Routin | 03/03/2016 | | Results for this | | | e | 11:54 PM | | procedure are in the | | | | PDT | | results section. | + +--------+ + + + | PTT | Routin | 03/03/2016 | | Results for this | | | e | 11:54 PM | | procedure are in the | | | | PDT | | results section. | + +--------+ + + + | CK TOTAL | Routin | 03/03/2016 | | Results for this | | | e | 11:54 PM | | procedure are in the | | | | PDT | | results section. | + +--------+ + + + | POC GLUCOSE | Routin | 03/03/2016 | | Results for this | | | e | 9:18 PM | | procedure are in the | | | | PDT | | results section. | + +--------+ + + + | TROPONIN I | Routin | 03/03/2016 | | Results for this | | | e | 6:48 PM | | procedure are in the | | | | PDT | | results section. | + +--------+ + + + | CK-MB | Routin | 03/03/2016 | | Results for this | | | e | 6:48 PM | | procedure are in the | | | | PDT | | results section. | + +--------+ + + + | PTT | Routin | 03/03/2016 | | Results for this | | | e | 6:48 PM | | procedure are in the | | | | PDT | | results section. | + +--------+ + + + | CK TOTAL | Routin | 03/03/2016 | | Results for this | | | e | 6:48 PM | | procedure are in the | | | | PDT | | results section. | + +--------+ + + + | POC GLUCOSE | Routin | 03/03/2016 | | Results for this | | | e | 5:16 PM | | procedure are in the | | | | PDT | | results section. | + +--------+ + + + | POC GLUCOSE | Routin | 03/03/2016 | | Results for this | | | e | 2:57 PM | | procedure are in the | | | | PDT | | results section. | + +--------+ + + + | B TYPE NATRIURETIC | Routin | 03/03/2016 | | Results for this | | PEPTIDE | e | 9:12 AM | | procedure are in the | | | | PDT | | results section. | + +--------+ + + + | ECG 12 LEAD | Routin | 03/03/2016 | | Results for this | | | e | 9:11 AM | | procedure are in the | | | | PDT | | results section. | + +--------+ + + + | XR CHEST 1 VIEW | Routin | 03/03/2016 | | Results for this | | | e | 7:27 AM | | procedure are in the | | | | PDT | | results section. | + +--------+ + + + | XR CHEST 1 VIEW | Routin | 01/17/2014 | | Results for this | | | e | 7:26 AM | | procedure are in the | | | | PDT | | results section. | + +--------+ + + + documented in this encounter Results POC Glucose (03/15/2016 3:58 PM PDT) + + + + + + | Component | Value | Ref Range | Performed | Pathologist | | | | | At | Signature | + + + + + + | Glucose, | 281 (H)Comment: Testing | 65 - 99 mg/dL | EXTERNAL | | | Fingerstick | performed at [facility] | | LAB | | | [address];[place], [place] | | | | | | [address] | | | | + + + + + + + + | Specimen | + + | | + + + +---------+ + + | Performing | Address | City/State/Zipcode | Phone Number | | Organization | | | | + +---------+ + + | EXTERNAL LAB | | | | + +---------+ + + POC Glucose (03/15/2016 11:42 AM PDT) + + + + + + | Component | Value | Ref Range | Performed | Pathologist | | | | | At | Signature | + + + + + + | Glucose, | 192 (H)Comment: Testing | 65 - 99 mg/dL | EXTERNAL | | | Fingerstick | performed at [facility] | | LAB | | | | [address];[place], [place] | | | | | | [address] | | | | + + + + + + + + | Specimen | + + | | + + + +---------+ + + | Performing | Address | City/State/Zipcode | Phone Number | | Organization | | | | + +---------+ + + | EXTERNAL LAB | | | | + +---------+ + + POC Glucose (03/15/2016 5:28 AM PDT) + + + + + + | Component | Value | Ref Range | Performed | Pathologist | | | | | At | Signature | + + + + + + | Glucose, | 162 (H)Comment: Testing | 65 - 99 mg/dL | EXTERNAL | | | Fingerstick | performed at [facility] | | LAB | | | | [address];[place], [place] | | | | | | [address] | | | | + + + + + + + + | Specimen | + + | | + + + +---------+ + + | Performing | Address | City/State/Zipcode | Phone Number | | Organization | | | | + +---------+ + + | EXTERNAL LAB | | | | + +---------+ + + CBC no Differential (03/15/2016 4:52 AM PDT) + + + + + + | Component | Value | Ref Range | Performed | Pathologist | | | | | At | Signature | + + + + + + | WBC | 8.26Comment: Testing | 3.80 - 11.00 | EXTERNAL | | | | performed at [facility] | K/uL | LAB | | | | [address];[place] | | | | | | [address] | | | | + + + + + + | Non- | 2.93 (L)Comment: Testing | 4.20 - 5.70 | EXTERNAL | | | Red Blood | performed at [facility] | M/uL | LAB | | | Cells | [address];[place] | | | | | Counted | [id number] | | | | + + + + + + | Hemoglobin | 8.0 (L)Comment: Testing | 13.2 - 17.0 | EXTERNAL | | | | performed at [facility] | g/dL | LAB | | | | [address];[place] | | | | | | [address] | | | | + + + + + + | Hematocrit, | 24.4 (L)Comment: Testing | 39.0 - 50.0 % | EXTERNAL | | | POC | performed at [facility] | | LAB | | | | [address];[place] | | | | | | [address] | | | | + + + + + + | MCV | 83.2Comment: Testing | 80.0 - 100.0 fl | EXTERNAL | | | | performed at [facility] | | LAB | | | | [address];[place] | | | | | | [address] | | | | + + + + + + | MCH | 27.2Comment: Testing | 27.0 - 34.0 pg | EXTERNAL | | | | performed at [facility] | | LAB | | | | [address];[place] | | | | | | [address] | | | | + + + + + + | MCHC | 32.6Comment: Testing | 32.0 - 35.5 | EXTERNAL | | | | performed at [facility] | g/dL | LAB | | | | [address];[place] | | | | | | [address] | | | | + + + + + + | RDW-CV | 42.4Comment: Testing | 37 - 53 fl | EXTERNAL | | | | performed at [facility] | | LAB | | | | [address];[place] | | | | | | [address] | | | | + + + + + + | Platelet | 206Comment: Testing | 150 - 400 K/uL | EXTERNAL | | | Count | performed at [facility] | | LAB | | | Plasma | [address];[place] | | | | | | [address] | | | | + + + + + + | MPV | 9.3Comment: Testing | fl | EXTERNAL | | | | performed at [facility];[address] | | LAB | | | | [address];[place] | | | | | | [address] | | | | + + + + + + + + | Specimen | + + | | + + + +---------+ + + | Performing | Address | City/State/Zipcode | Phone Number | | Organization | | | | + +---------+ + + | EXTERNAL LAB | | | | + +---------+ + + Comprehensive Metabolic Panel (03/15/2016 4:52 AM PDT) + + + + + + | Component | Value | Ref Range | Performed | Pathologist | | | | | At | Signature | + + + + + + | Na | 137Comment: Testing | 135 - 145 | EXTERNAL | | | | performed at [facility] | mmol/L | LAB | | | | [address];[place] | | | | | | [address] | | | | + + + + + + | K | 3.7Comment: Testing | 3.5 - 4.9 | EXTERNAL | | | | performed at [facility];[address] | mmol/L | LAB | | | | [address];[place] | | | | | | [address] | | | | + + + + + + | Cl | 99Comment: Testing | 99 - 109 mmol/L | EXTERNAL | | | | performed at [facility] | | LAB | | | | [address];[place] | | | | | | [address] | | | | + + + + + + | CO2 | 26Comment: Testing | 23 - 32 mmol/L | EXTERNAL | | | | performed at [facility] | | LAB | | | | [address];[place] | | | | | | [address] | | | | + + + + + + | Anion Gap | 16Comment: Testing | 5 - 20 mmol/L | EXTERNAL | | | | performed at [facility] | | LAB | | | | [address];[place] | | | | | | [address] | | | | + + + + + + | Glucose, | 139 (H)Comment: Testing | 65 - 99 mg/dL | EXTERNAL | | | Fasting | performed at [facility] | | LAB | | | | [address];[place] | | | | | | [address] | | | | + + + + + + | BUN | 42 (H)Comment: Testing | 8 - 25 mg/dL | EXTERNAL | | | | performed at [facility] | | LAB | | | | [address];[place] | | | | | | [address] | | | | + + + + + + | Creatinine | 6.0 (H)Comment: Testing | 0.70 - 1.30 | EXTERNAL | | | | performed at [facility] | mg/dL | LAB | | | | [address];[place] | | | | | | [address] | | | | + + + + + + | BUN/Creatin | 7Comment: Testing | | EXTERNAL | | | ine Ratio | performed at [facility] | | LAB | | | | [address];[place] | | | | | | [address] | | | | + + + + + + | Calcium | 8.3 (L)Comment: Testing | 8.5 - 10.5 | EXTERNAL | | | | performed at [facility] | mg/dL | LAB | | | | [address];[place] | | | | | | [address] | | | | + + + + + + | Protein, | 5.7 (L)Comment: Testing | 6.3 - 8.2 g/dL | EXTERNAL | | | Total | performed at [facility] | | LAB | | | | [address];[place] | | | | | | [address] | | | | + + + + + + | Albumin | 2.4 (L)Comment: Testing | 3.3 - 4.8 g/dL | EXTERNAL | | | | performed at [facility] | | LAB | | | | [address];[place] | | | | | | [address] | | | | + + + + + + | Globulin | 3.3Comment: Testing | 1.3 - 4.9 g/dL | EXTERNAL | | | | performed at [facility] | | LAB | | | | [address];[place] | | | | | | [address] | | | | + + + + + + | A/G Ratio | 0.7 (L)Comment: Testing | 1.0 - 2.4 | EXTERNAL | | | | performed at [facility] | | LAB | | | | [address];[place] | | | | | | [address] | | | | + + + + + + | Bilirubin | 0.5Comment: Testing | 0.1 - 1.5 mg/dL | EXTERNAL | | | Total | performed at [facility];[address] | | LAB | | | | [address];[place] | | | | | | [address] | | | | + + + + + + | ALP, | 43Comment: Testing | 35 - 115 U/L | EXTERNAL | | | External | performed at [facility] | | LAB | | | | [address];[place] | | | | | | [address] | | | | + + + + + + | AST | 33Comment: Testing | 10 - 45 U/L | EXTERNAL | | | | performed at [facility] | | LAB | | | | [address];[place] | | | | | | [address] | | | | + + + + + + | ALT | 18Comment: Testing | 10 - 65 U/L | EXTERNAL | | | | performed at [facility];[address] | | LAB | | | | [address];[place] | | | | | | [address] | | | | + + + + + + | Estimated | 10 (L)Comment: GFR <60: | mL/min/1.73m2 | EXTERNAL [...] | | | | | | at [facility];[address] [place] [address] | | | | | | [facility];[place] [address] | | | | + + + + + + + + | Specimen | + + | Blood specimen | | (specimen) | + + + +---------+ + + | Performing | Address | City/State/Zipcode | Phone Number | | Organization | | | | + +---------+ + + | EXTERNAL LAB | | | | + +---------+ + + POC Glucose (03/14/2016 9:26 PM PDT) + + + + + + | Component | Value | Ref Range | Performed | Pathologist | | | | | At | Signature | + + + + + + | Glucose, | 286 (H)Comment: Testing | 65 - 99 mg/dL | EXTERNAL | | | Fingerstick | performed at [facility];[address] | | LAB | | | | [address];[place], [place] | | | | | | [address] | | | | + + + + + + + + | Specimen | + + | | + + + +---------+ + + | Performing | Address | City/State/Zipcode | Phone Number | | Organization | | | | + +---------+ + + | EXTERNAL LAB | | | | + +---------+ + + POC Glucose (03/14/2016 4:07 PM PDT) + + + + + + | Component | Value | Ref Range | Performed | Pathologist | | | | | At | Signature | + + + + + + | Glucose, | 233 (H)Comment: Testing | 65 - 99 mg/dL | EXTERNAL | | | Fingerstick | performed at [facility];[address] | | LAB | | | | [address];[place] | | | | | | [address] | | | | + + + + + + + + | Specimen | + + | | + + + +---------+ + + | Performing | Address | City/State/Zipcode | Phone Number | | Organization | | | | + +---------+ + + | EXTERNAL LAB | | | | + +---------+ + + CBC no Differential (03/14/2016 12:20 PM PDT) + + + + + + | Component | Value | Ref Range | Performed | Pathologist | | | | | At | Signature | + + + + + + | WBC | 8.82Comment: Testing | 3.80 - 11.00 | EXTERNAL | | | | performed at [facility];[address] | K/uL | LAB | | | | [address];[place] | | | | | | [address] | | | | + + + + + + | Non- | 2.97 (L)Comment: Testing | 4.20 - 5.70 | EXTERNAL | | | Red Blood | performed at [facility];[address] | M/uL | LAB | | | Cells | [address];[place] | | | | | Counted | [address] | | | | + + + + + + | Hemoglobin | 8.1 (L)Comment: Testing | 13.2 - 17.0 | EXTERNAL | | | | performed at [facility];[address] | g/dL | LAB | | | | [address];[place] | | | | | | [address] | | | | + + + + + + | Hematocrit, | 25.3 (L)Comment: Testing | 39.0 - 50.0 % | EXTERNAL | | | POC | performed at [facility];[address] | | LAB | | | | [address];[place] | | | | | | [address] | | | | + + + + + + | MCV | 85.0Comment: Testing | 80.0 - 100.0 fl | EXTERNAL | | | | performed at [facility];[address] | | LAB | | | | [address];[place] | | | | | | [address] | | | | + + + + + + | MCH | 27.3Comment: Testing | 27.0 - 34.0 pg | EXTERNAL | | | | performed at [facility];[address] | | LAB | | | | [address];[place] | | | | | | [address] | | | | + + + + + + | MCHC | 32.1Comment: Testing | 32.0 - 35.5 | EXTERNAL | | | | performed at [facility];[address] | g/dL | LAB | | | | [address];[place] | | | | | | [address] | | | | + + + + + + | RDW-CV | 43.3Comment: Testing | 37 - 53 fl | EXTERNAL | | | | performed at [facility];[address] | | LAB | | | | [address];[place] | | | | | | [address] | | | | + + + + + + | Platelet | 223Comment: Testing | 150 - 400 K/uL | EXTERNAL | | | Count | performed at [facility];[address] | | LAB | | | Plasma | [address];[place] | | | | | | [address] | | | | + + + + + + | MPV | 9.8Comment: Testing | fl | EXTERNAL | | | | performed at [facility];[address] | | LAB | | | | [address];[place] | | | | | | [address] | | | | + + + + + + + + | Specimen | + + | | + + + +---------+ + + | Performing | Address | City/State/Zipcode | Phone Number | | Organization | | | | + +---------+ + + | EXTERNAL LAB | | | | + +---------+ + + Phosphorus (03/14/2016 12:20 PM PDT) + + + + + + | Component | Value | Ref Range | Performed | Pathologist | | | | | At | Signature | + + + + + + | PHOSPHORUS | 3.2Comment: Testing | 2.3 - 4.8 mg/dL | EXTERNAL | | | | performed at [facility];[address] | | LAB | | | | [address];[place] | | | | | | [address] | | | | + + + + + + + + | Specimen | + + | Blood specimen | | (specimen) | + + + +---------+ + + | Performing | Address | City/State/Zipcode | Phone Number | | Organization | | | | + +---------+ + + | EXTERNAL LAB | | | | + +---------+ + + Magnesium (03/14/2016 12:20 PM PDT) + + + + + + | Component | Value | Ref Range | Performed | Pathologist | | | | | At | Signature | + + + + + + | Magnesium | 2.2Comment: Testing | 1.7 - 2.4 mg/dL | EXTERNAL | | | | performed at [facility];[address] | | LAB | | | | [address];[place] | | | | | | [address] | | | | + + + [...] + +---------+ + + Basic Metabolic Panel (03/14/2016 12:20 PM PDT) + + + + + + | Component | Value | Ref Range | Performed | Pathologist | | | | | At | Signature | + + + + + + | Na | 137Comment: Testing | 135 - 145 | EXTERNAL | | | | performed at [facility];[address] | mmol/L | LAB | | | | [address];[place] | | | | | | [address] | | | | + + + + + + | K | 4.1Comment: Testing | 3.5 - 4.9 | EXTERNAL | | | | performed at [facility];[address] | mmol/L | LAB | | | | [address];[place] | | | | | | [address] | | | | + + + + + + | Cl | 98 (L)Comment: Testing | 99 - 109 mmol/L | EXTERNAL | | | | performed at [facility];[address] | | LAB | | | | [address];[place] | | | | | | [address] | | | | + + + + + + | CO2 | 27Comment: Testing | 23 - 32 mmol/L | EXTERNAL | | | | performed at [facility];[address] | | LAB | | | | [address];[place] | | | | | | [address] | | | | + + + + + + | Anion Gap | 16Comment: Testing | 5 - 20 mmol/L | EXTERNAL | | | | performed at [facility];[address] | | LAB | | | | [address];[place] | | | | | | [address] | | | | + + + + + + | Glucose, | 231 (H)Comment: Testing | 65 - 99 mg/dL | EXTERNAL | | | Fasting | performed at [facility];[address] | | LAB | | | | [address];[place] | | | | | | [address] | | | | + + + + + + | BUN | 36 (H)Comment: Testing | 8 - 25 mg/dL | EXTERNAL | | | | performed at [facility];[address] | | LAB | | | | [address];[place] | | | | | | [address] | | | | + + + + + + | Creatinine | 5.1 (H)Comment: Testing | 0.70 - 1.30 | EXTERNAL | | | | performed at [facility];[address] | mg/dL | LAB | | | | [address];[place] | | | | | | [address] | | | | + + + + + + | BUN/Creatin | 7Comment: Testing | | EXTERNAL | | | ine Ratio | performed at [facility];[address] | | LAB | | | | [address];[place] | | | | | | [address] | | | | + + + + + + | Calcium | 8.4 (L)Comment: Testing | 8.5 - 10.5 | EXTERNAL | | | | performed at [facility];[address] | mg/dL | LAB | | | | [address];[place], [place] | | | | | | [address] | | | | + + + [...] | | | | | | at [facility];[address];[place] [address] | | | | + + + + + + + + | Specimen | + + | Blood specimen | | (specimen) | + + + +---------+ + + | Performing | Address | City/State/Zipcode | Phone Number | | Organization | | | | + +---------+ + + | EXTERNAL LAB | | | | + +---------+ + + POC Glucose (03/14/2016 12:19 PM PDT) + + + + + + | Component | Value | Ref Range | Performed | Pathologist | | | | | At | Signature | + + + + + + | Glucose, | 246 (H)Comment: Testing | 65 - 99 mg/dL | EXTERNAL | | | Fingerstick | performed at [facility] | | LAB | | | | [address];[place] | | | | | | [address] | | | | + + + + + + + + | Specimen | + + | | + + + +---------+ + + | Performing | Address | City/State/Zipcode | Phone Number | | Organization | | | | + +---------+ + + | EXTERNAL LAB | | | | + +---------+ + + POC Glucose (03/14/2016 5:58 AM PDT) + + + + + + | Component | Value | Ref Range | Performed | Pathologist | | | | | At | Signature | + + + + + + | Glucose, | 117 (H)Comment: Testing | 65 - 99 mg/dL | EXTERNAL | | | Fingerstick | performed at [facility];[address] | | LAB | | | | [address];[place], [place] | | | | | | [address] | | | | + + + + + + + + | Specimen | + + | | + + + +---------+ + + | Performing | Address | City/State/Zipcode | Phone Number | | Organization | | | | + +---------+ + + | EXTERNAL LAB | | | | + +---------+ + + POC Glucose (03/13/2016 9:31 PM PDT) + + + + + + | Component | Value | Ref Range | Performed | Pathologist | | | | | At | Signature | + + + + + + | Glucose, | 149 (H)Comment: Testing | 65 - 99 mg/dL | EXTERNAL | | | Fingerstick | performed at [facility];[address] | | LAB | | | | [address];[place] | | | | | | [address] | | | | + + + + + + + + | Specimen | + + | | + + + +---------+ + + | Performing | Address | City/State/Zipcode | Phone Number | | Organization | | | | + +---------+ + + | EXTERNAL LAB | | | | + +---------+ + + CV CARDIAC PROCEDURE (03/13/2016 6:28 PM PDT) + + | Specimen | + + | | + + + + + | Narrative | Performed At | + + + | | | | | | | DATE OF SERVICE March 13, 2016 PROCEDURE 1. Conscious | | | sedation. 2. Ultrasound-guided left femoral artery access. 3. Left | | | heart catheterization with simultaneous measurement of the left | | | ventricular and aortic pressures. 4. Selective right coronary artery | | | angiogram. 5. Successful percutaneous transluminal coronary | | | angioplasty and stenting of the mid and proximal right coronary | | | artery using a 2.75 x 23, and 2.5 x 38 mm overlapping Xience | | | drug-eluting stents, post-dilated using a 2.5 and a 3 Noncompliant | | | balloons. 6. Left femoral artery angiogram. 7. Failed Perclose | | | closure of the left common femoral artery, hemostasis achieved using | | | manual compression. INDICATIONS Non-ST elevation myocardial | | | infarction. HISTORY OF PRESENT ILLNESS This is a 70-year-old male | | | with a history of severe aortic stenosis, hypertension, | | | hyperlipidemia, diabetes mellitus type 2, end-stage renal disease | | | currently on hemodialysis, who was admitted with non-ST elevation | | | myocardial infarction. Coronary angiogram showed 3-vessel coronary | | | artery disease with severe disease of the left anterior descending | | | artery and first diagonal, and severe disease of the right coronary | | | artery, moderate disease of the left circumflex artery. Initially the | | | patient was evaluated for cardiac surgery. He was felt to be at a | | | high risk for surgery. Subsequently the patient had staged | | | percutaneous coronary intervention of the left anterior descending | | | artery and the first diagonal bifurcating drug-eluting stents on | | | March 10, 2016. The patient is brought for staged PCI of the right | | | coronary artery. The patient is being followed by Dr. Dangelo, with a | | | plan for a referral for TAVR once coronary vascularization is done. | | | DESCRIPTION OF PROCEDURE The patient was brought to the cardiac | | | catheterization laboratory in a fasting state. After informed consent | | | was obtained, the patient was prepped and draped in the usual | | | sterile fashion. The patient had severe tortuosity of the iliac | | | arteries on the right more than the left. Based on iliac angiogram | | | done March 10, 2016. We decided to go from the left side. Lidocaine | | | 2% was used for local anesthesia of the left groin. The left femoral | | | artery Sonosite ultrasound was used to visualize the left femoral | | | artery. Subsequently the left femoral artery was accessed using a | | | micropuncture needle. A 6-Filipino sheath was placed into the left | | | femoral artery without difficulty. Subsequently the patient was given | | | a bolus of Angiomax. A 6-Filipino JR4 guiding catheter was advanced | | | over the guidewire. Incidentally the FR4 guiding catheter went into | | | the left ventricle. Since the patient has severe aortic stenosis and | | | the catheter went easily incidentally, I wanted to assure severe | | | aortic stenosis as it is a surprise the catheter would go so easily. | | | Subsequently an Exchange length wire was advanced into the left | | | ventricle. The FR4 guiding catheter was removed. A 6-Filipino [place] | | | (double-lumen pigtail) catheter was advanced into the left ventricle. | | | Simultaneous measurement of the left ventricular and aortic | | | pressures were obtained which showed severe aortic stenosis with a | | | mean gradient of 39.9 mmHg. Pullback pressures were obtained which | | | showed good correlation and accurate measurements as the 2 pressures | | | were equal after pullback. The ACT was checked and we found ACT | | | still less than 200 which is also surprising. We gave the patient an | | | additional bolus of Angiomax. Both were renally adjusted doses. We | | | have chosen Angiomax as we had difficulty reaching the target ACT | | | using heparin during his last intervention on March 10, 2016, with | | | the ACT not therapeutic after giving a total of 20,000 of heparin. | | | After the second bolus ACT went up to 331. A 6-Filipino JR4 guiding | | | catheter was used for selective engagement of the right coronary | | | artery, and angiogram was obtained. Subsequently a BMW wire was | | | advanced into the distal right coronary artery. There is a long | | | lesion involving the proximal and mid-right coronary artery. A 2 x 30 | | | mm Emerge Compliant balloon was advanced and inflated, starting in | | | the mid-right coronary artery, starting at the distal lesion, and | | | inflated at 6 atmospheres for 10 seconds. Subsequently the pulled was | | | pulled to the proximal right coronary artery and inflated at 6 | | | atmospheres for 16 seconds. Subsequently a 2.5 x 38 mm Xience | | | Alpine drug-eluting stent was advanced. Unfortunately we were not | | | able to advance the stent beyond the proximal right coronary artery. | | | The stent was removed. A 2.5 x 20 mm Noncompliant Quantum balloon was | | | advanced and inflated in the mid-right coronary artery at 12 | | | atmospheres for 14 seconds, and then pulled to the proximal right | | | coronary artery and inflated at 12 atmospheres for 18 seconds. | | | Subsequently the 2.5 x 38 mm Xience Alpine drug-eluting stent was | | | advanced again, and with some difficulty we were able to deliver the | | | stent to the target area, covering the lesion in the mid-right | | | coronary artery. The stent was deployed at 11 atmospheres for 23 | | | seconds. Subsequently, the stent balloon was removed and a 2.5 x 15 | | | mm Noncompliant Quantum balloon was advanced and used for | | | post-dilation through the entire length of the stent, starting | | | distally at 14 atmospheres for 21 seconds, 18 atmospheres for 12 | | | seconds, 18 atmospheres for 16 seconds. Subsequently the balloon | | | was pulled to the proximal right coronary artery and angiogram was | | | obtained with the balloon assisting in evaluation of the proximal | | | right coronary artery lesion. Subsequently a 2.75 x 23 mm Xience | | | Alpine drug-eluting stent was advanced and deployed in the proximal | | | right coronary artery overlapping distally with the previous stent. | | | The stent was deployed at 10 atmospheres for 15 seconds. Subsequently | | | the stent balloon was advanced into the overlap area and inflated at | | | 10 atmospheres for 14 seconds. Subsequently a 3 x 20 mm Noncompliant | | | Trek balloon was advanced and used for post-dilation within the | | | stent and at the overlap area between the 2 stents. The balloon was | | | inflated at 12 atmospheres for 11 seconds, 14 atmospheres for 16 | | | seconds, and 12 atmospheres for 12 seconds. Subsequently angiogram | | | was obtained, which showed still there is an area of waist and under | | | expansion. The balloon was advanced again and inflated at 20 | | | atmospheres for 21 seconds. Subsequently, post intervention angiogram | | | was obtained which showed excellent results, with reduction of degree | | | of stenosis from 95% in the mid-right coronary artery down to 0% | | | down from 75% to 80%. Sij-zy-vgpwxeaa right coronary artery down to | | | 0% with TIMI3 flow. There is no evidence of dissection or | | | perforation. All catheters and guidewires were removed. Left | | | femoral artery angiogram was obtained which showed the puncture site | | | above the bifurcation. There is mild disease of the left common | | | femoral artery. Subsequently a Perclose closure device was advanced | | | and deployed. Unfortunately after deployment the suture actually got | | | torn and came out. We immediately held manual pressure. A FemoStop | | | was put in place in the left groin with achievement of hemostasis. | | | The patient tolerated the procedure well without complications. | | | TOTAL CONTRAST Isovue 62 mL. RESULTS LEFT HEART | | | CATHETERIZATION WITH SIMULTANEOUS AORTIC AND LEFT VENTRICULAR | | | PRESSURES 1. Left ventricular systolic pressure 148. 2. Left | | | ventricular end-diastolic pressure 28. 3. Aortic pressure 102/51. | | | Heart rate 54. 4. Csyd-pj-pvxm gradient 46 mmHg. 5. Mean gradient | | | 39.9 mmHg, indicating severe aortic stenosis. RIGHT CORONARY | | | ARTERY ANGIOGRAM The right coronary artery is severely diffusely | | | diseased in a long segment of the proximal and mid-segments. | | | Proximally in the range of 75% to 80%, and in the midportion with | | | areas in the range of 80%, and areas in range of 90% to 95%. Mild | | | disease of the distal right coronary artery. IMPRESSION 1. Severe | | | aortic stenosis with a mean gradient of 39.9 mmHg, and lcza-ie-htuw | | | gradient of 46 mmHg. 2. Severe proximal and mid-right coronary artery | | | disease. 3. Successful percutaneous transluminal coronary | | | angioplasty and stenting of the proximal and mid-right coronary | | | artery using a 2.75 x 23, and a 2.5 x 38 mm overlapping Xience | | | drug-eluting stent, post-dilated using a 3 and a 2.5 Noncompliant | | | balloons. 4. Failed Perclose closure of the left common femoral | | | artery. Hemostasis achieved with manual compression and FemoStop. | | | PLAN 1. Continue aspirin, ticagrelor, carvedilol, Atorvastatin. 2. | | | The patient will need to continue ticagrelor for at least 1 year. 3. | | | The patient to be referred for TAVR as an outpatient. Read by | | | LEYLA SWEET MD 03/15/2016 05:04 P | | + + + + + | Procedure Note | + + | Elmo Rubio Conversion - 01/27/2019 2:59 PM PDT | | | | | | DATE OF SERVICE | | March 13, 2016 | | | | PROCEDURE | | 1. Conscious sedation. | | 2. Ultrasound-guided left femoral artery access. | | 3. Left heart catheterization with simultaneous measurement of the left | | ventricular and aortic pressures. | | 4. Selective right coronary artery angiogram. | | 5. Successful percutaneous transluminal coronary angioplasty and stenting | | of the mid and proximal right coronary artery using a 2.75 x 23, and 2.5 | | x 38 mm overlapping Xience drug-eluting stents, post-dilated using a 2.5 | | and a 3 Noncompliant balloons. | | 6. Left femoral artery angiogram. | | 7. Failed Perclose closure of the left common femoral artery, hemostasis | | achieved using manual compression. | | | | INDICATIONS | | Non-ST elevation myocardial infarction. | | | | HISTORY OF PRESENT ILLNESS | | This is a 70-year-old male with a history of severe aortic stenosis, | | hypertension, hyperlipidemia, diabetes mellitus type 2, end-stage renal | | disease currently on hemodialysis, who was admitted with non-ST elevation | | myocardial infarction. Coronary angiogram showed 3-vessel coronary artery | | disease with severe disease of the left anterior descending artery and | | first diagonal, and severe disease of the right coronary artery, moderate | | disease of the left circumflex artery. Initially the patient was evaluated | | for cardiac surgery. He was felt to be at a high risk for surgery. | | Subsequently the patient had staged percutaneous coronary intervention of | | the left anterior descending artery and the first diagonal bifurcating | | drug-eluting stents on March 10, 2016. The patient is brought for staged | | PCI of the right coronary artery. The patient is being followed by | | Deepak, with a plan for a referral for TAVR once coronary vascularization is | | done. | | | | DESCRIPTION OF PROCEDURE | | The patient was brought to the cardiac catheterization laboratory in a | | fasting state. After informed consent was obtained, the patient was prepped | | and draped in the usual sterile fashion. The patient had severe tortuosity | | of the iliac arteries on the right more than the left. Based on iliac | | angiogram done March 10, 2016. We decided to go from the left side. | | Lidocaine 2% was used for local anesthesia of the left groin. The left | | femoral artery Sonosite ultrasound was used to visualize the left femoral | | artery. Subsequently the left femoral artery was accessed using a | | micropuncture needle. | | | | A 6-Filipino sheath was placed into the left femoral artery without | | difficulty. Subsequently the patient was given a bolus of Angiomax. A | | 6-Filipino JR4 guiding catheter was advanced over the guidewire. Incidentally | | the FR4 guiding catheter went into the left ventricle. Since the patient | | has severe aortic stenosis and the catheter went easily incidentally, I | | wanted to assure severe aortic stenosis as it is a surprise the catheter | | would go so easily. Subsequently an Exchange length wire was advanced into | | the left ventricle. The FR4 guiding catheter was removed. A 6-Filipino | | [place] (double-lumen pigtail) catheter was advanced into the left | | ventricle. Simultaneous measurement of the left ventricular and aortic | | pressures were obtained which showed severe aortic stenosis with a mean | | gradient of 39.9 mmHg. Pullback pressures were obtained which showed good | | correlation and accurate measurements as the 2 pressures were equal after | | pullback. | | | | The ACT was checked and we found ACT still less than 200 which is also | | surprising. We gave the patient an additional bolus of Angiomax. Both were | | renally adjusted doses. We have chosen Angiomax as we had difficulty | | reaching the target ACT using heparin during his last intervention on | | March 10, 2016, with the ACT not therapeutic after giving a total of | | 20,000 of heparin. | | | | After the second bolus ACT went up to 331. A 6-Filipino JR4 guiding catheter | | was used for selective engagement of the right coronary artery, and | | angiogram was obtained. Subsequently a BMW wire was advanced into the | | distal right coronary artery. There is a long lesion involving the proximal | | and mid-right coronary artery. A 2 x 30 mm Emerge Compliant balloon was | | advanced and inflated, starting in the mid-right coronary artery, starting | | at the distal lesion, and inflated at 6 atmospheres for 10 seconds. | | Subsequently the pulled was pulled to the proximal right coronary artery | | and inflated at 6 atmospheres for 16 seconds. | | | | Subsequently a 2.5 x 38 mm Xience Alpine drug-eluting stent was advanced. | | Unfortunately we were not able to advance the stent beyond the proximal | | right coronary artery. The stent was removed. A 2.5 x 20 mm Noncompliant | | Quantum balloon was advanced and inflated in the mid-right coronary artery | | at 12 atmospheres for 14 seconds, and then pulled to the proximal right | | coronary artery and inflated at 12 atmospheres for 18 seconds. Subsequently | | the 2.5 x 38 mm Xience Alpine drug-eluting stent was advanced again, and | | with some difficulty we were able to deliver the stent to the target area, | | covering the lesion in the mid-right coronary artery. The stent was | | deployed at 11 atmospheres for 23 seconds. Subsequently, the stent balloon | | was removed and a 2.5 x 15 mm Noncompliant Quantum balloon was advanced and | | used for post-dilation through the entire length of the stent, starting | | distally at 14 atmospheres for 21 seconds, 18 atmospheres for 12 seconds, | | 18 atmospheres for 16 seconds. | | | | Subsequently the balloon was pulled to the proximal right coronary artery | | and angiogram was obtained with the balloon assisting in evaluation of the | | proximal right coronary artery lesion. Subsequently a 2.75 x 23 mm Xience | | Alpine drug-eluting stent was advanced and deployed in the proximal right | | coronary artery overlapping distally with the previous stent. The stent was | | deployed at 10 atmospheres for 15 seconds. Subsequently the stent balloon | | was advanced into the overlap area and inflated at 10 atmospheres for 14 | | seconds. Subsequently a 3 x 20 mm Noncompliant Trek balloon was advanced | | and used for post-dilation within the stent and at the overlap area between | | the 2 stents. The balloon was inflated at 12 atmospheres for 11 seconds, 14 | | atmospheres for 16 seconds, and 12 atmospheres for 12 seconds. | | | | Subsequently angiogram was obtained, which showed still there is an area of | | waist and under expansion. The balloon was advanced again and inflated at | | 20 atmospheres for 21 seconds. Subsequently, post intervention angiogram | | was obtained which showed excellent results, with reduction of degree of | | stenosis from 95% in the mid-right coronary artery down to 0% down from 75% | | to 80%. Eln-hl-vafnloxk right coronary artery down to 0% with TIMI3 flow. | | There is no evidence of dissection or perforation. | | | | All catheters and guidewires were removed. Left femoral artery angiogram | | was obtained which showed the puncture site above the bifurcation. There is | | mild disease of the left common femoral artery. Subsequently a Perclose | | closure device was advanced and deployed. Unfortunately after deployment | | the suture actually got torn and came out. We immediately held manual | | pressure. A FemoStop was put in place in the left groin with achievement of | | hemostasis. The patient tolerated the procedure well without | | complications. | | | | TOTAL CONTRAST | | Isovue 62 mL. | | | | RESULTS | | | | LEFT HEART CATHETERIZATION WITH SIMULTANEOUS AORTIC AND LEFT VENTRICULAR | | PRESSURES | | 1. Left ventricular systolic pressure 148. | | 2. Left ventricular end-diastolic pressure 28. | | 3. Aortic pressure 102/51. Heart rate 54. | | 4. Hwyq-gb-gguy gradient 46 mmHg. | | 5. Mean gradient 39.9 mmHg, indicating severe aortic stenosis. | | | | RIGHT CORONARY ARTERY ANGIOGRAM | | The right coronary artery is severely diffusely diseased in a long segment | | of the proximal and mid-segments. Proximally in the range of 75% to 80%, | | and in the midportion with areas in the range of 80%, and areas in range of | | 90% to 95%. Mild disease of the distal right coronary artery. | | | | IMPRESSION | | 1. Severe aortic stenosis with a mean gradient of 39.9 mmHg, and | | tnzy-po-ffap gradient of 46 mmHg. | | 2. Severe proximal and mid-right coronary artery disease. | | 3. Successful percutaneous transluminal coronary angioplasty and stenting | | of the proximal and mid-right coronary artery using a 2.75 x 23, and a | | 2.5 x 38 mm overlapping Xience drug-eluting stent, post-dilated using a | | 3 and a 2.5 Noncompliant balloons. | | 4. Failed Perclose closure of the left common femoral artery. Hemostasis | | achieved with manual compression and FemoStop. | | | | PLAN | | 1. Continue aspirin, ticagrelor, carvedilol, Atorvastatin. | | 2. The patient will need to continue ticagrelor for at least 1 year. | | 3. The patient to be referred for TAVR as an outpatient. | | | | Read by LEYLA SWEET MD 03/15/2016 05:04 P | | | | | + + CV CARDIAC PROCEDURE (03/13/2016 6:28 PM PDT) + + | Specimen | + + | | + + + + + | Narrative | Performed At | + + + | | | | | | | DATE OF SERVICE March 13, 2016 PROCEDURE 1. Conscious | | | sedation. 2. Ultrasound-guided left femoral artery access. 3. Left | | | heart catheterization with simultaneous measurement of the left | | | ventricular and aortic pressures. 4. Selective right coronary artery | | | angiogram. 5. Successful percutaneous transluminal coronary | | | angioplasty and stenting of the mid and proximal right coronary | | | artery using a 2.75 x 23, and 2.5 x 38 mm overlapping Xience | | | drug-eluting stents, post-dilated using a 2.5 and a 3 Noncompliant | | | balloons. 6. Left femoral artery angiogram. 7. Failed Perclose | | | closure of the left common femoral artery, hemostasis achieved using | | | manual compression. INDICATIONS Non-ST elevation myocardial | | | infarction. HISTORY OF PRESENT ILLNESS This is a 70-year-old male | | | with a history of severe aortic stenosis, hypertension, | | | hyperlipidemia, diabetes mellitus type 2, end-stage renal disease | | | currently on hemodialysis, who was admitted with non-ST elevation | | | myocardial infarction. Coronary angiogram showed 3-vessel coronary | | | artery disease with severe disease of the left anterior descending | | | artery and first diagonal, and severe disease of the right coronary | | | artery, moderate disease of the left circumflex artery. Initially the | | | patient was evaluated for cardiac surgery. He was felt to be at a | | | high risk for surgery. Subsequently the patient had staged | | | percutaneous coronary intervention of the left anterior descending | | | artery and the first diagonal bifurcating drug-eluting stents on | | | March 10, 2016. The patient is brought for staged PCI of the right | | | coronary artery. The patient is being followed by Dr. Dangelo, with a | | | plan for a referral for TAVR once coronary vascularization is done. | | | DESCRIPTION OF PROCEDURE The patient was brought to the cardiac | | | catheterization laboratory in a fasting state. After informed consent | | | was obtained, the patient was prepped and draped in the usual | | | sterile fashion. The patient had severe tortuosity of the iliac | | | arteries on the right more than the left. Based on iliac angiogram | | | done March 10, 2016. We decided to go from the left side. Lidocaine | | | 2% was used for local anesthesia of the left groin. The left femoral | | | artery Sonosite ultrasound was used to visualize the left femoral | | | artery. Subsequently the left femoral artery was accessed using a | | | micropuncture needle. A 6-Filipino sheath was placed into the left | | | femoral artery without difficulty. Subsequently the patient was given | | | a bolus of Angiomax. A 6-Filipino JR4 guiding catheter was advanced | | | over the guidewire. Incidentally the FR4 guiding catheter went into | | | the left ventricle. Since the patient has severe aortic stenosis and | | | the catheter went easily incidentally, I wanted to assure severe | | | aortic stenosis as it is a surprise the catheter would go so easily. | | | Subsequently an Exchange length wire was advanced into the left | | | ventricle. The FR4 guiding catheter was removed. A 6-Filipino Tr | | | (double-lumen pigtail) catheter was advanced into the left ventricle. | | | Simultaneous measurement of the left ventricular and aortic | | | pressures were obtained which showed severe aortic stenosis with a | | | mean gradient of 39.9 mmHg. Pullback pressures were obtained which | | | showed good correlation and accurate measurements as the 2 pressures | | | were equal after pullback. The ACT was checked and we found ACT | | | still less than 200 which is also surprising. We gave the patient an | | | additional bolus of Angiomax. Both were renally adjusted doses. We | | | have chosen Angiomax as we had difficulty reaching the target ACT | | | using heparin during his last intervention on March 10, 2016, with | | | the ACT not therapeutic after giving a total of 20,000 of heparin. | | | After the second bolus ACT went up to 331. A 6-Filipino JR4 guiding | | | catheter was used for selective engagement of the right coronary | | | artery, and angiogram was obtained. Subsequently a BMW wire was | | | advanced into the distal right coronary artery. There is a long | | | lesion involving the proximal and mid-right coronary artery. A 2 x 30 | | | mm Emerge Compliant balloon was advanced and inflated, starting in | | | the mid-right coronary artery, starting at the distal lesion, and | | | inflated at 6 atmospheres for 10 seconds. Subsequently the pulled was | | | pulled to the proximal right coronary artery and inflated at 6 | | | atmospheres for 16 seconds. Subsequently a 2.5 x 38 mm Xience | | | Alpine drug-eluting stent was advanced. Unfortunately we were not | | | able to advance the stent beyond the proximal right coronary artery. | | | The stent was removed. A 2.5 x 20 mm Noncompliant Quantum balloon was | | | advanced and inflated in the mid-right coronary artery at 12 | | | atmospheres for 14 seconds, and then pulled to the proximal right | | | coronary artery and inflated at 12 atmospheres for 18 seconds. | | | Subsequently the 2.5 x 38 mm Xience Alpine drug-eluting stent was | | | advanced again, and with some difficulty we were able to deliver the | | | stent to the target area, covering the lesion in the mid-right | | | coronary artery. The stent was deployed at 11 atmospheres for 23 | | | seconds. Subsequently, the stent balloon was removed and a 2.5 x 15 | | | mm Noncompliant Quantum balloon was advanced and used for | | | post-dilation through the entire length of the stent, starting | | | distally at 14 atmospheres for 21 seconds, 18 atmospheres for 12 | | | seconds, 18 atmospheres for 16 seconds. Subsequently the balloon | | | was pulled to the proximal right coronary artery and angiogram was | | | obtained with the balloon assisting in evaluation of the proximal | | | right coronary artery lesion. Subsequently a 2.75 x 23 mm Xience | | | Alpine drug-eluting stent was advanced and deployed in the proximal | | | right coronary artery overlapping distally with the previous stent. | | | The stent was deployed at 10 atmospheres for 15 seconds. Subsequently | | | the stent balloon was advanced into the overlap area and inflated at | | | 10 atmospheres for 14 seconds. Subsequently a 3 x 20 mm Noncompliant | | | Trek balloon was advanced and used for post-dilation within the | | | stent and at the overlap area between the 2 stents. The balloon was | | | inflated at 12 atmospheres for 11 seconds, 14 atmospheres for 16 | | | seconds, and 12 atmospheres for 12 seconds. Subsequently angiogram | | | was obtained, which showed still there is an area of waist and under | | | expansion. The balloon was advanced again and inflated at 20 | | | atmospheres for 21 seconds. Subsequently, post intervention angiogram | | | was obtained which showed excellent results, with reduction of degree | | | of stenosis from 95% in the mid-right coronary artery down to 0% | | | down from 75% to 80%. Llt-ly-hjytpdtt right coronary artery down to | | | 0% with TIMI3 flow. There is no evidence of dissection or | | | perforation. All catheters and guidewires were removed. Left | | | femoral artery angiogram was obtained which showed the puncture site | | | above the bifurcation. There is mild disease of the left common | | | femoral artery. Subsequently a Perclose closure device was advanced | | | and deployed. Unfortunately after deployment the suture actually got | | | torn and came out. We immediately held manual pressure. A FemoStop | | | was put in place in the left groin with achievement of hemostasis. | | | The patient tolerated the procedure well without complications. | | | TOTAL CONTRAST Isovue 62 mL. RESULTS LEFT HEART | | | CATHETERIZATION WITH SIMULTANEOUS AORTIC AND LEFT VENTRICULAR | | | PRESSURES 1. Left ventricular systolic pressure 148. 2. Left | | | ventricular end-diastolic pressure 28. 3. Aortic pressure 102/51. | | | Heart rate 54. 4. Rjcr-ct-hyey gradient 46 mmHg. 5. Mean gradient | | | 39.9 mmHg, indicating severe aortic stenosis. RIGHT CORONARY | | | ARTERY ANGIOGRAM The right coronary artery is severely diffusely | | | diseased in a long segment of the proximal and mid-segments. | | | Proximally in the range of 75% to 80%, and in the midportion with | | | areas in the range of 80%, and areas in range of 90% to 95%. Mild | | | disease of the distal right coronary artery. IMPRESSION 1. Severe | | | aortic stenosis with a mean gradient of 39.9 mmHg, and xqwe-vx-hpco | | | gradient of 46 mmHg. 2. Severe proximal and mid-right coronary artery | | | disease. 3. Successful percutaneous transluminal coronary | | | angioplasty and stenting of the proximal and mid-right coronary | | | artery using a 2.75 x 23, and a 2.5 x 38 mm overlapping Xience | | | drug-eluting stent, post-dilated using a 3 and a 2.5 Noncompliant | | | balloons. 4. Failed Perclose closure of the left common femoral | | | artery. Hemostasis achieved with manual compression and FemoStop. | | | PLAN 1. Continue aspirin, ticagrelor, carvedilol, Atorvastatin. 2. | | | The patient will need to continue ticagrelor for at least 1 year. 3. | | | The patient to be referred for TAVR as an outpatient. Read by | | | LEYLA SWEET MD 03/15/2016 05:04 P | | + + + + + | Procedure Note | + + | Elmo Rubio Conversion - 01/27/2019 2:59 PM PDT | | | | | | DATE OF SERVICE | | March 13, 2016 | | | | PROCEDURE | | 1. Conscious sedation. | | 2. Ultrasound-guided left femoral artery access. | | 3. Left heart catheterization with simultaneous measurement of the left | | ventricular and aortic pressures. | | 4. Selective right coronary artery angiogram. | | 5. Successful percutaneous transluminal coronary angioplasty and stenting | | of the mid and proximal right coronary artery using a 2.75 x 23, and 2.5 | | x 38 mm overlapping Xience drug-eluting stents, post-dilated using a 2.5 | | and a 3 Noncompliant balloons. | | 6. Left femoral artery angiogram. | | 7. Failed Perclose closure of the left common femoral artery, hemostasis | | achieved using manual compression. | | | | INDICATIONS | | Non-ST elevation myocardial infarction. | | | | HISTORY OF PRESENT ILLNESS | | This is a 70-year-old male with a history of severe aortic stenosis, | | hypertension, hyperlipidemia, diabetes mellitus type 2, end-stage renal | | disease currently on hemodialysis, who was admitted with non-ST elevation | | myocardial infarction. Coronary angiogram showed 3-vessel coronary artery | | disease with severe disease of the left anterior descending artery and | | first diagonal, and severe disease of the right coronary artery, moderate | | disease of the left circumflex artery. Initially the patient was evaluated | | for cardiac surgery. He was felt to be at a high risk for surgery. | | Subsequently the patient had staged percutaneous coronary intervention of | | the left anterior descending artery and the first diagonal bifurcating | | drug-eluting stents on March 10, 2016. The patient is brought for staged | | PCI of the right coronary artery. The patient is being followed by | | Deepak, with a plan for a referral for TAVR once coronary vascularization is | | done. | | | | DESCRIPTION OF PROCEDURE | | The patient was brought to the cardiac catheterization laboratory in a | | fasting state. After informed consent was obtained, the patient was prepped | | and draped in the usual sterile fashion. The patient had severe tortuosity | | of the iliac arteries on the right more than the left. Based on iliac | | angiogram done March 10, 2016. We decided to go from the left side. | | Lidocaine 2% was used for local anesthesia of the left groin. The left | | femoral artery Sonosite ultrasound was used to visualize the left femoral | | artery. Subsequently the left femoral artery was accessed using a | | micropuncture needle. | | | | A 6-Filipino sheath was placed into the left femoral artery without | | difficulty. Subsequently the patient was given a bolus of Angiomax. A | | 6-Filipino JR4 guiding catheter was advanced over the guidewire. Incidentally | | the FR4 guiding catheter went into the left ventricle. Since the patient | | has severe aortic stenosis and the catheter went easily incidentally, I | | wanted to assure severe aortic stenosis as it is a surprise the catheter | | would go so easily. Subsequently an Exchange length wire was advanced into | | the left ventricle. The FR4 guiding catheter was removed. A 6-Filipino | | [place] (double-lumen pigtail) catheter was advanced into the left | | ventricle. Simultaneous measurement of the left ventricular and aortic | | pressures were obtained which showed severe aortic stenosis with a mean | | gradient of 39.9 mmHg. Pullback pressures were obtained which showed good | | correlation and accurate measurements as the 2 pressures were equal after | | pullback. | | | | The ACT was checked and we found ACT still less than 200 which is also | | surprising. We gave the patient an additional bolus of Angiomax. Both were | | renally adjusted doses. We have chosen Angiomax as we had difficulty | | reaching the target ACT using heparin during his last intervention on | | March 10, 2016, with the ACT not therapeutic after giving a total of | | 20,000 of heparin. | | | | After the second bolus ACT went up to 331. A 6-Filipino JR4 guiding catheter | | was used for selective engagement of the right coronary artery, and | | angiogram was obtained. Subsequently a BMW wire was advanced into the | | distal right coronary artery. There is a long lesion involving the proximal | | and mid-right coronary artery. A 2 x 30 mm Emerge Compliant balloon was | | advanced and inflated, starting in the mid-right coronary artery, starting | | at the distal lesion, and inflated at 6 atmospheres for 10 seconds. | | Subsequently the pulled was pulled to the proximal right coronary artery | | and inflated at 6 atmospheres for 16 seconds. | | | | Subsequently a 2.5 x 38 mm Xience Alpine drug-eluting stent was advanced. | | Unfortunately we were not able to advance the stent beyond the proximal | | right coronary artery. The stent was removed. A 2.5 x 20 mm Noncompliant | | Quantum balloon was advanced and inflated in the mid-right coronary artery | | at 12 atmospheres for 14 seconds, and then pulled to the proximal right | | coronary artery and inflated at 12 atmospheres for 18 seconds. Subsequently | | the 2.5 x 38 mm Xience Alpine drug-eluting stent was advanced again, and | | with some difficulty we were able to deliver the stent to the target area, | | covering the lesion in the mid-right coronary artery. The stent was | | deployed at 11 atmospheres for 23 seconds. Subsequently, the stent balloon | | was removed and a 2.5 x 15 mm Noncompliant Quantum balloon was advanced and | | used for post-dilation through the entire length of the stent, starting | | distally at 14 atmospheres for 21 seconds, 18 atmospheres for 12 seconds, | | 18 atmospheres for 16 seconds. | | | | Subsequently the balloon was pulled to the proximal right coronary artery | | and angiogram was obtained with the balloon assisting in evaluation of the | | proximal right coronary artery lesion. Subsequently a 2.75 x 23 mm Xience | | Alpine drug-eluting stent was advanced and deployed in the proximal right | | coronary artery overlapping distally with the previous stent. The stent was | | deployed at 10 atmospheres for 15 seconds. Subsequently the stent balloon | | was advanced into the overlap area and inflated at 10 atmospheres for 14 | | seconds. Subsequently a 3 x 20 mm Noncompliant Trek balloon was advanced | | and used for post-dilation within the stent and at the overlap area between | | the 2 stents. The balloon was inflated at 12 atmospheres for 11 seconds, 14 | | atmospheres for 16 seconds, and 12 atmospheres for 12 seconds. | | | | Subsequently angiogram was obtained, which showed still there is an area of | | waist and under expansion. The balloon was advanced again and inflated at | | 20 atmospheres for 21 seconds. Subsequently, post intervention angiogram | | was obtained which showed excellent results, with reduction of degree of | | stenosis from 95% in the mid-right coronary artery down to 0% down from 75% | | to 80%. Ezw-rd-fpiaxtww right coronary artery down to 0% with TIMI3 flow. | | There is no evidence of dissection or perforation. | | | | All catheters and guidewires were removed. Left femoral artery angiogram | | was obtained which showed the puncture site above the bifurcation. There is | | mild disease of the left common femoral artery. Subsequently a Perclose | | closure device was advanced and deployed. Unfortunately after deployment | | the suture actually got torn and came out. We immediately held manual | | pressure. A FemoStop was put in place in the left groin with achievement of | | hemostasis. The patient tolerated the procedure well without | | complications. | | | | TOTAL CONTRAST | | Isovue 62 mL. | | | | RESULTS | | | | LEFT HEART CATHETERIZATION WITH SIMULTANEOUS AORTIC AND LEFT VENTRICULAR | | PRESSURES | | 1. Left ventricular systolic pressure 148. | | 2. Left ventricular end-diastolic pressure 28. | | 3. Aortic pressure 102/51. Heart rate 54. | | 4. Cvak-pw-rkfi gradient 46 mmHg. | | 5. Mean gradient 39.9 mmHg, indicating severe aortic stenosis. | | | | RIGHT CORONARY ARTERY ANGIOGRAM | | The right coronary artery is severely diffusely diseased in a long segment | | of the proximal and mid-segments. Proximally in the range of 75% to 80%, | | and in the midportion with areas in the range of 80%, and areas in range of | | 90% to 95%. Mild disease of the distal right coronary artery. | | | | IMPRESSION | | 1. Severe aortic stenosis with a mean gradient of 39.9 mmHg, and | | ndos-ql-ndhc gradient of 46 mmHg. | | 2. Severe proximal and mid-right coronary artery disease. | | 3. Successful percutaneous transluminal coronary angioplasty and stenting | | of the proximal and mid-right coronary artery using a 2.75 x 23, and a | | 2.5 x 38 mm overlapping Xience drug-eluting stent, post-dilated using a | | 3 and a 2.5 Noncompliant balloons. | | 4. Failed Perclose closure of the left common femoral artery. Hemostasis | | achieved with manual compression and FemoStop. | | | | PLAN | | 1. Continue aspirin, ticagrelor, carvedilol, Atorvastatin. | | 2. The patient will need to continue ticagrelor for at least 1 year. | | 3. The patient to be referred for TAVR as an outpatient. | | | | Read by LEYLA SWEET MD 03/15/2016 05:04 P | | | | | + + Activated clotting time (03/13/2016 6:08 PM PDT) + + + + + + | Component | Value | Ref Range | Performed | Pathologist | | | | | At | Signature | + + + + + + | Activated | 306 (H)Comment: Testing | 74 - 137 | EXTERNAL | | | Clotting | performed [place] [facility] | seconds | LAB | | | time, POC | [address];[place], [place] | | | | | | [address] | | | | + + + + + + + + | Specimen | + + | | + + + +---------+ + + | Performing | Address | City/State/Zipcode | Phone Number | | Organization | | | | + +---------+ + + | EXTERNAL LAB | | | | + +---------+ + + Activated clotting time (03/13/2016 5:33 PM PDT) + + + + + + | Component | Value | Ref Range | Performed | Pathologist | | | | | At | Signature | + + + + + + | Activated | 319 (H)Comment: Testing | 74 - 137 | EXTERNAL | | | Clotting | performed at [facility] [place] | seconds | LAB | | | time, POC | [address];[place] | | | | | | [address] | | | | + + + + + + + + | Specimen | + + | | + + + +---------+ + + | Performing | Address | City/State/Zipcode | Phone Number | | Organization | | | | + +---------+ + + | EXTERNAL LAB | | | | + +---------+ + + Activated clotting time (03/13/2016 5:30 PM PDT) + + + + + + | Component | Value | Ref Range | Performed | Pathologist | | | | | At | Signature | + + + + + + | Activated | 331 (H)Comment: Testing | 74 - 137 | EXTERNAL | | | Clotting | performed at [facility] [place] [place] | seconds | LAB | | | time, POC | [address];[place], [place] | | | | | | [address] | | | | + + + + + + + + | Specimen | + + | | + + + +---------+ + + | Performing | Address | City/State/Zipcode | Phone Number | | Organization | | | | + +---------+ + + | EXTERNAL LAB | | | | + +---------+ + + Activated clotting time (03/13/2016 5:17 PM PDT) + + + + + + | Component | Value | Ref Range | Performed | Pathologist | | | | | At | Signature | + + + + + + | Activated | 128Comment: Testing | 74 - 137 | EXTERNAL | | | Clotting | performed at [facility] | seconds | LAB | | | time, POC | [address];[place], [place] | | | | | | [address] | | | | + + + + + + + + | Specimen | + + | | + + + +---------+ + + | Performing | Address | City/State/Zipcode | Phone Number | | Organization | | | | + +---------+ + + | EXTERNAL LAB | | | | + +---------+ + + POC Glucose (03/13/2016 11:47 AM PDT) + + + + + + | Component | Value | Ref Range | Performed | Pathologist | | | | | At | Signature | + + + + + + | Glucose, | 113 (H)Comment: Testing | 65 - 99 mg/dL | EXTERNAL | | | Fingerstick | performed at [facility] [place] | | LAB | | | | [address];[place] | | | | | | [address] | | | | + + + + + + + + | Specimen | + + | | + + + +---------+ + + | Performing | Address | City/State/Zipcode | Phone Number | | Organization | | | | + +---------+ + + | EXTERNAL LAB | | | | + +---------+ + + POC Glucose (03/13/2016 9:37 AM PDT) + + + + + + | Component | Value | Ref Range | Performed | Pathologist | | | | | At | Signature | + + + + + + | Glucose, | 105 (H)Comment: Testing | 65 - 99 mg/dL | EXTERNAL | | | Fingerstick | performed at [facility] [place] | | LAB | | | | [address];[place] | | | | | | [address] | | | | + + + + + + + + | Specimen | + + | | + + + +---------+ + + | Performing | Address | City/State/Zipcode | Phone Number | | Organization | | | | + +---------+ + + | EXTERNAL LAB | | | | + +---------+ + + POC Glucose (03/13/2016 5:20 AM PDT) + + + + + + | Component | Value | Ref Range | Performed | Pathologist | | | | | At | Signature | + + + + + + | Glucose, | 150 (H)Comment: Testing | 65 - 99 mg/dL | EXTERNAL | | | Fingerstick | performed at [facility] [place] | | LAB | | | | [address];[place] | | | | | | [address] | | | | + + + + + + + + | Specimen | + + | | + + + +---------+ + + | Performing | Address | City/State/Zipcode | Phone Number | | Organization | | | | + +---------+ + + | EXTERNAL LAB | | | | + +---------+ + + CBC no Differential (03/13/2016 4:32 AM PDT) + + + + + + | Component | Value | Ref Range | Performed | Pathologist | | | | | At | Signature | + + + + + + | WBC | 7.41Comment: Testing | 3.80 - 11.00 | EXTERNAL | | | | performed at [facility], [address] | K/uL | LAB | | | | [address], | | | | | | [place] [address] | | | | + + + + + + | Non- | 2.72 (L)Comment: Testing | 4.20 - 5.70 | EXTERNAL | | | Red Blood | performed at [facility], [address] | M/uL | LAB | | | Cells | [address], | | | | | Counted | [place] [address] | | | | + + + + + + | Hemoglobin | 7.5 (L)Comment: Testing | 13.2 - 17.0 | EXTERNAL | | | | performed at [facility], [address] | g/dL | LAB | | | | [address], | | | | | | [place] [address] | | | | + + + + + + | Hematocrit, | 23.2 (L)Comment: Testing | 39.0 - 50.0 % | EXTERNAL | | | POC | performed at [facility], [address] | | LAB | | | | [address], | | | | | | [place] [address] | | | | + + + + + + | MCV | 85.1Comment: Testing | 80.0 - 100.0 fl | EXTERNAL | | | | performed at [facility], [address] | | LAB | | | | [address], | | | | | | [place] [address] | | | | + + + + + + | MCH | 27.7Comment: Testing | 27.0 - 34.0 pg | EXTERNAL | | | | performed at [facility], [address] | | LAB | | | | [address], | | | | | | [place] [address] | | | | + + + + + + | MCHC | 32.6Comment: Testing | 32.0 - 35.5 | EXTERNAL | | | | performed at [facility], [address] | g/dL | LAB | | | | [address], | | | | | | [place] [address] | | | | + + + + + + | RDW-CV | 43.8Comment: Testing | 37 - 53 fl | EXTERNAL | | | | performed at [facility], [address] | | LAB | | | | [address], | | | | | | [place] [address] | | | | + + + + + + | Platelet | 197Comment: Testing | 150 - 400 K/uL | EXTERNAL | | | Count | performed at [facility], [address] | | LAB | | | Plasma | [address], | | | | | | [place] [address] | | | | + + + + + + | MPV | 9.8Comment: Testing | fl | EXTERNAL | | | | performed at [facility], [address] | | LAB | | | | [address], | | | | | | [place] [address] | | | | + + + + + + + + | Specimen | + + | | + + + +---------+ + + | Performing | Address | City/State/Zipcode | Phone Number | | Organization | | | | + +---------+ + + | EXTERNAL LAB | | | | + +---------+ + + Basic Metabolic Panel (03/13/2016 4:32 AM PDT) + + + + + + | Component | Value | Ref Range | Performed | Pathologist | | | | | At | Signature | + + + + + + | Na | 137Comment: Testing | 135 - 145 | EXTERNAL | | | | performed at [facility], [address] | mmol/L | LAB | | | | [address], | | | | | | [place] [address] | | | | + + + + + + | K | 3.8Comment: Testing | 3.5 - 4.9 | EXTERNAL | | | | performed at [facility], [address] | mmol/L | LAB | | | | [address], | | | | | | [place] [address] | | | | + + + + + + | Cl | 99Comment: Testing | 99 - 109 mmol/L | EXTERNAL | | | | performed at [facility], [address] | | LAB | | | | [address], | | | | | | [place] [address] | | | | + + + + + + | CO2 | 27Comment: Testing | 23 - 32 mmol/L | EXTERNAL | | | | performed at [facility], [address] | | LAB | | | | [address], | | | | | | [place] [address] | | | | + + + + + + | Anion Gap | 15Comment: Testing | 5 - 20 mmol/L | EXTERNAL | | | | performed at [facility], [address] | | LAB | | | | [address], | | | | | | [place] [address] | | | | + + + + + + | Glucose, | 136 (H)Comment: Testing | 65 - 99 mg/dL | EXTERNAL | | | Fasting | performed at [facility], [address] | | LAB | | | | [address], | | | | | | [place] [address] | | | | + + + + + + | BUN | 43 (H)Comment: Testing | 8 - 25 mg/dL | EXTERNAL | | | | performed at [facility], [address] | | LAB | | | | [address], | | | | | | [place] [address] | | | | + + + + + + | Creatinine | 5.8 (H)Comment: Testing | 0.70 - 1.30 | EXTERNAL | | | | performed at [facility], [address] | mg/dL | LAB | | | | [address], | | | | | | [place] [address] | | | | + + + + + + | BUN/Creatin | 7Comment: Testing | | EXTERNAL | | | ine Ratio | performed at [facility], [address] | | LAB | | | | [address], | | | | | | [place] [address] | | | | + + + + + + | Calcium | 8.6Comment: Testing | 8.5 - 10.5 | EXTERNAL | | | | performed at [facility], [address] | mg/dL | LAB | | | | [address], | | | | | | [place] [address] | | | | + + + + + + | Estimated | 10 (L)Comment: GFR <60: | mL/min/1.73m2 | EXTERNAL [...] | | | | | | at [facility], [address] | | | | | | [address], | | | | | | [place] [address] | | | | + + + + + + + + | Specimen | + + | Blood specimen | | (specimen) | + + + +---------+ + + | Performing | Address | City/State/Zipcode | Phone Number | | Organization | | | | + +---------+ + + | EXTERNAL LAB | | | | + +---------+ + + POC Glucose (03/12/2016 9:02 PM PDT) + + + + + + | Component | Value | Ref Range | Performed | Pathologist | | | | | At | Signature | + + + + + + | Glucose, | 183 (H)Comment: Testing | 65 - 99 mg/dL | EXTERNAL | | | Fingerstick | performed at [facility] | | LAB | | | | [address];[place] | | | | | | [address] | | | | + + + + + + + + | Specimen | + + | | + + + +---------+ + + | Performing | Address | City/State/Zipcode | Phone Number | | Organization | | | | + +---------+ + + | EXTERNAL LAB | | | | + +---------+ + + POC Glucose (03/12/2016 3:41 PM PDT) + + + + + + | Component | Value | Ref Range | Performed | Pathologist | | | | | At | Signature | + + + + + + | Glucose, | 258 (H)Comment: Testing | 65 - 99 mg/dL | EXTERNAL | | | Fingerstick | performed at [facility] [place] | | LAB | | | | [address];[place] | | | | | | [address] | | | | + + + + + + + + | Specimen | + + | | + + + +---------+ + + | Performing | Address | City/State/Zipcode | Phone Number | | Organization | | | | + +---------+ + + | EXTERNAL LAB | | | | + +---------+ + + POC Glucose (03/12/2016 11:22 AM PDT) + + + + + + | Component | Value | Ref Range | Performed | Pathologist | | | | | At | Signature | + + + + + + | Glucose, | 209 (H)Comment: Testing | 65 - 99 mg/dL | EXTERNAL | | | Fingerstick | performed at [facility] [place] | | LAB | | | | [address];[place] | | | | | | [address] | | | | + + + + + + + + | Specimen | + + | | + + + +---------+ + + | Performing | Address | City/State/Zipcode | Phone Number | | Organization | | | | + +---------+ + + | EXTERNAL LAB | | | | + +---------+ + + POC Glucose (03/12/2016 5:10 AM PDT) + + + + + + | Component | Value | Ref Range | Performed | Pathologist | | | | | At | Signature | + + + + + + | Glucose, | 132 (H)Comment: Testing | 65 - 99 mg/dL | EXTERNAL | | | Fingerstick | performed at [facility] [place] | | LAB | | | | [address];[place], [place] | | | | | | [address] | | | | + + + + + + + + | Specimen | + + | | + + + +---------+ + + | Performing | Address | City/State/Zipcode | Phone Number | | Organization | | | | + +---------+ + + | EXTERNAL LAB | | | | + +---------+ + + POC Glucose (03/11/2016 9:56 PM PDT) + + + + + + | Component | Value | Ref Range | Performed | Pathologist | | | | | At | Signature | + + + + + + | Glucose, | 167 (H)Comment: Testing | 65 - 99 mg/dL | EXTERNAL | | | Fingerstick | performed at [facility] [place] | | LAB | | | | [address];[place], [place] | | | | | | [address] | | | | + + + + + + + + | Specimen | + + | | + + + +---------+ + + | Performing | Address | City/State/Zipcode | Phone Number | | Organization | | | | + +---------+ + + | EXTERNAL LAB | | | | + +---------+ + + POC Glucose (03/11/2016 4:19 PM PDT) + + + + + + | Component | Value | Ref Range | Performed | Pathologist | | | | | At | Signature | + + + + + + | Glucose, | 107 (H)Comment: Testing | 65 - 99 mg/dL | EXTERNAL | | | Fingerstick | performed at [facility] [place] | | LAB | | | | [address];[place] | | | | | | [address] | | | | + + + + + + + + | Specimen | + + | | + + + +---------+ + + | Performing | Address | City/State/Zipcode | Phone Number | | Organization | | | | + +---------+ + + | EXTERNAL LAB | | | | + +---------+ + + POC Glucose (03/11/2016 11:35 AM PDT) + + + + + + | Component | Value | Ref Range | Performed | Pathologist | | | | | At | Signature | + + + + + + | Glucose, | 92Comment: Testing | 65 - 99 mg/dL | EXTERNAL | | | Fingerstick | performed at [facility] [place] | | LAB | | | | [address];[place] | | | | | | [address] | | | | + + + + + + + + | Specimen | + + | | + + + +---------+ + + | Performing | Address | City/State/Zipcode | Phone Number | | Organization | | | | + +---------+ + + | EXTERNAL LAB | | | | + +---------+ + + POC Glucose (03/11/2016 9:38 AM PDT) + + + + + + | Component | Value | Ref Range | Performed | Pathologist | | | | | At | Signature | + + + + + + | Glucose, | 96Comment: Testing | 65 - 99 mg/dL | EXTERNAL | | | Fingerstick | performed at [facility] [place] [place];[address] | | LAB | | | | [address];[place], [place] | | | | | | [address] | | | | + + + + + + + + | Specimen | + + | | + + + +---------+ + + | Performing | Address | City/State/Zipcode | Phone Number | | Organization | | | | + +---------+ + + | EXTERNAL LAB | | | | + +---------+ + + ECG 12 lead (03/11/2016 6:31 AM PDT) + + + + + + | Component | Value | Ref Range | Performed | Pathologist | | | | | At | Signature | + + + + + + | DIAGNOSIS: | Normal sinus | | EXTERNAL | | | | rhythmIncomplete left | | LAB | | | | bundle branch blockST & | | | | | | T wave abnormality, | | | | | | consider lateral | | | | | | ischemiaProlonged | | | | | | QTAbnormal ECGWhen | | | | | | compared with ECG of | | | | | | 10-MAR-2016 15:33,T wave | | | | | | inversion now evident | | | | | | in Lateral | | | | | | leadsConfirmed by MEGAN | | | | | | LUISA ([id number]) on 03/11/2016 | | | | | | 11:42:53 AM | | | | + + + + + + + + | Specimen | + + | | + + + + + | Narrative | Performed At | + + + | Historically converted procedure from [facility] environment | EXTERNAL LAB | + + + + +---------+ + + | Performing | Address | City/State/Zipcode | Phone Number | | Organization | | | | + +---------+ + + | EXTERNAL LAB | | | | + +---------+ + + POC Glucose (03/11/2016 5:02 AM PDT) + + + + + + | Component | Value | Ref Range | Performed | Pathologist | | | | | At | Signature | + + + + + + | Glucose, | 77Comment: Testing | 65 - 99 mg/dL | EXTERNAL | | | Fingerstick | performed at [facility] [place] | | LAB | | | | [address];[place], [place] | | | | | | [address] | | | | + + + + + + + + | Specimen | + + | | + + + +---------+ + + | Performing | Address | City/State/Zipcode | Phone Number | | Organization | | | | + +---------+ + + | EXTERNAL LAB | | | | + +---------+ + + External Lab: KELLY (03/11/2016 4:26 AM PDT) + + +---- + + + | Component | Value | Ref Range | Performed | Pathologist | | | | | At | Signature | + + +---- + + + | WBC | 8.56Comment: Testing | 3.8 0 - 11.00 | EXTERNAL | | | | performed at [facility], [address] | K/u L | LAB | | | | [address], | | | | | | [place] [address] | | | | + + +---- + + + | Non- | 2.75 (L)Comment: Testing | 4.2 0 - 5.70 | EXTERNAL | | | Red Blood | performed at [facility], [address] | M/u L | LAB | | | Cells | [address], | | | | | Counted | [place] [address] | | | | + + +---- + + + | Hemoglobin | 7.8 (L)Comment: Testing | 13. 2 - 17.0 | EXTERNAL | | | | performed at [facility], [address] | g/d L | LAB | | | | [address], | | | | | | [place] [address] | | | | + + +---- + + + | Hematocrit, | 23.7 (L)Comment: Testing | 39. 0 - 50.0 % | EXTERNAL | | | POC | performed at [facility], [address] | | LAB | | | | [address], | | | | | | [place] [address] | | | | + + +---- + + + | MCV | 86.1Comment: Testing | 80. 0 - 100.0 fl | EXTERNAL | | | | performed at [facility], [address] | | LAB | | | | [address], | | | | | | [place] [address] | | | | + + +---- + + + | MCH | 28.2Comment: Testing | 27. 0 - 34.0 pg | EXTERNAL | | | | performed at [facility], [address] | | LAB | | | | [address], | | | | | | [place] [address] | | | | + + +---- + + + | MCHC | 32.8Comment: Testing | 32. 0 - 35.5 | EXTERNAL | | | | performed at [facility], [address] | g/d L | LAB | | | | [address], | | | | | | [place] [address] | | | | + + +---- + + + | RDW-CV | 43.3Comment: Testing | 37 - 53 fl | EXTERNAL | | | | performed at [facility], [address] | | LAB | | | | [address], | | | | | | [place] [address] | | | | + + +---- + + + | Platelet | 175Comment: Testing | 150 - 400 K/uL | EXTERNAL | | | Count | performed at [facility], [address] | | LAB | | | Plasma | [address], | | | | | | [place] [address] | | | | + + +---- + + + | MPV | 10.3Comment: Testing | fl | EXTERNAL | | | | performed at [facility], [address] | | LAB | | | | [address], | | | | | | [place] [address] | | | | + + +---- + + + | Differentia | MANUALComment: Testing | | EXTERNAL | | | l Type | performed at [facility], [address] | | LAB | | | | [address], | | | | | | [place] [address] | | | | + + +---- + + + | Segmented | 87Comment: Testing | % | EXTERNAL | | | Neutrophils | performed at [facility], [address] | | LAB | | | Manual | [address], | | | | | | [place] [address] | | | | + + +---- + + + | % Bands | 3Comment: Testing | % | EXTERNAL | | | | performed at [facility], [address] | | LAB | | | | [address], | | | | | | [place] [address] | | | | + + +---- + + + | Lymphocytes | 3Comment: Testing | % | EXTERNAL | | | Manual | performed at [facility], [address] | | LAB | | | | [address], | | | | | | [place] [address] | | | | + + +---- + + + | Monocytes | 7Comment: Testing | % | EXTERNAL | | | Manual | performed at [facility], [address] | | LAB | | | | [address], | | | | | | [place] [address] | | | | + + +---- + + + | Absolute | 7.44 (H)Comment: Testing | 1.9 0 - 7.40 | EXTERNAL | | | Neutrophils | performed at [facility], [address] | [address] | LAB | | | | [address], | | | | | | [place] [address] | | | | + + +---- + + + | Bands | 0.26 (H)Comment: Testing | 0.0 0 - 0.20 | EXTERNAL | | | Manual | performed at [facility], [address] | [address] | LAB | | | | [address], | | | | | | [place] [address] | | | | + + +---- + + + | Absolute | 0.26 (L)Comment: Testing | 1.0 0 - 3.90 | EXTERNAL | | | Lymphocytes | performed at [facility], [address] | [address] | LAB | | | | [address], | | | | | | [place] [address] | | | | + + +---- + + + | Absolute | 0.60Comment: Testing | 0.0 0 - 0.80 | EXTERNAL | | | Monocytes | performed at [facility], [address] | [address] | LAB | | | | [address], | | | | | | [place] [address] | | | | + + +---- + + + | RBC | 2+Comment: | | EXTERNAL | | | Morphology | ANISO1+HYPOTesting | | LAB | | | | performed at [facility], [address] | | | | | | [facility], | | | | | | [place] [address] | | | | | |Testing performed at [facility], [address] [facility] [place] [address] | | | | | | | | | | + + +---- + + + + + | Specimen | + + | Blood specimen | | (specimen) | + + + +---------+ + + | Performing | Address | City/State/Zipcode | Phone Number | | Organization | | | | + +---------+ + + | EXTERNAL LAB | | | | + +---------+ + + Basic Metabolic Panel (03/11/2016 4:26 AM PDT) + + + + + + | Component | Value | Ref Range | Performed | Pathologist | | | | | At | Signature | + + + + + + | Na | 141Comment: Testing | 135 - 145 | EXTERNAL | | | | performed at [facility], [address] | mmol/L | LAB | | | | [address] | | | | | | [place] [address] | | | | + + + + + + | K | 4.2Comment: Testing | 3.5 - 4.9 | EXTERNAL | | | | performed at [facility], [address] | mmol/L | LAB | | | | [address], | | | | | | [place] [address] | | | | + + + + + + | Cl | 105Comment: Testing | 99 - 109 mmol/L | EXTERNAL | | | | performed at [facility], [address] | | LAB | | | | [address], | | | | | | [place] [address] | | | | + + + + + + | CO2 | 26Comment: Testing | 23 - 32 mmol/L | EXTERNAL | | | | performed at [facility], [address] | | LAB | | | | [address], | | | | | | [place] [address] | | | | + + + + + + | Anion Gap | 14Comment: Testing | 5 - 20 mmol/L | EXTERNAL | | | | performed at [facility], [address] | | LAB | | | | [address], | | | | | | [place], [place] [address] | | | | + + + + + + | Glucose, | 69Comment: Testing | 65 - 99 mg/dL | EXTERNAL | | | Fasting | performed at [facility], [address] | | LAB | | | | [address], | | | | | | [place], [place] [address] | | | | + + + + + + | BUN | 32 (H)Comment: Testing | 8 - 25 mg/dL | EXTERNAL | | | | performed at [facility], [address] | | LAB | | | | [address], | | | | | | [place] [address] | | | | + + + + + + | Creatinine | 4.8 (H)Comment: Testing | 0.70 - 1.30 | EXTERNAL | | | | performed at [facility], [address] | mg/dL | LAB | | | | [address], | | | | | | [place] [address] | | | | + + + + + + | BUN/Creatin | 7Comment: Testing | | EXTERNAL | | | ine Ratio | performed at [facility], [address] | | LAB | | | | [facility], | | | | | | [place] [address] | | | | + + + + + + | Calcium | 8.2 (L)Comment: Testing | 8.5 - 10.5 | EXTERNAL | | | | performed at [facility], [address] | mg/dL | LAB | | | | [address], | | | | | | [place] [address] | | | | + + + + + + | Estimated | 13 (L)Comment: GFR <60: | mL/min/1.73m2 | EXTERNAL [...] | | | | | | at [facility], [address] | | | | | | [address], | | | | | | [place] [address] | | | | + + + + + + + + | Specimen | + + | Blood specimen | | (specimen) | + + + +---------+ + + | Performing | Address | City/State/Zipcode | Phone Number | | Organization | | | | + +---------+ + + | EXTERNAL LAB | | | | + +---------+ + + POC Glucose (03/10/2016 9:00 PM PDT) + + + + + + | Component | Value | Ref Range | Performed | Pathologist | | | | | At | Signature | + + + + + + | Glucose, | 87Comment: Testing | 65 - 99 mg/dL | EXTERNAL | | | Fingerstick | performed at [facility] [place] | | LAB | | | | [address];[place] | | | | | | [address] | | | | + + + + + + + + | Specimen | + + | | + + + +---------+ + + | Performing | Address | City/State/Zipcode | Phone Number | | Organization | | | | + +---------+ + + | EXTERNAL LAB | | | | + +---------+ + + Activated clotting time (03/10/2016 6:19 PM PDT) + + + + + + | Component | Value | Ref Range | Performed | Pathologist | | | | | At | Signature | + + + + + + | Activated | 171 (H)Comment: Testing | 74 - 137 | EXTERNAL | | | Clotting | performed [place] [facility] [place] | seconds | LAB | | | time, POC | [address];[place] | | | | | | [address] | | | | + + + + + + + + | Specimen | + + | | + + + +---------+ + + | Performing | Address | City/State/Zipcode | Phone Number | | Organization | | | | + +---------+ + + | EXTERNAL LAB | | | | + +---------+ + + POC Glucose (03/10/2016 5:21 PM PDT) + + + + + + | Component | Value | Ref Range | Performed | Pathologist | | | | | At | Signature | + + + + + + | Glucose, | 101 (H)Comment: Testing | 65 - 99 mg/dL | EXTERNAL | | | Fingerstick | performed at [facility] [place] | | LAB | | | | [address];[place] | | | | | | [address] | | | | + + + + + + + + | Specimen | + + | | + + + +---------+ + + | Performing | Address | City/State/Zipcode | Phone Number | | Organization | | | | + +---------+ + + | EXTERNAL LAB | | | | + +---------+ + + ECG 12 lead (03/10/2016 3:33 PM PDT) + + + + + + | Component | Value | Ref Range | Performed | Pathologist | | | | | At | Signature | + + + + + + | DIAGNOSIS: | Normal sinus | | EXTERNAL | | | | rhythmIncomplete left | | LAB | | | | bundle branch | | | | | | blockMinimal voltage | | | | | | criteria for LVH, may be | | | | | | normal | | | | | | variantNonspecific ST | | | | | | abnormalityAbnormal | | | | | | QRS-T angle, consider | | | | | | primary T wave | | | | | | abnormalityProlonged | | | | | | QTAbnormal ECGWhen | | | | | | compared with ECG of | | | | | | 04-MAR-2016 11:19,T wave | | | | | | inversion no longer | | | | | | evident in Lateral | | | | | | leadsConfirmed by MEGAN | | | | | | LUISA ([id number]) on 03/11/2016 | | | | | | 10:57:54 AM | | | | + + + + + + + + | Specimen | + + | | + + + + + | Narrative | Performed At | + + + | Historically converted procedure from [facility] environment | EXTERNAL LAB | + + + + +---------+ + + | Performing | Address | City/State/Zipcode | Phone Number | | Organization | | | | + +---------+ + + | EXTERNAL LAB | | | | + +---------+ + + CV CARDIAC PROCEDURE (03/10/2016 2:25 PM PDT) + + | Specimen | + + | | + + + + + | Narrative | Performed At | + + + | | | | | | | DATE OF PROCEDURE March 03, 2016 PROCEDURES PERFORMED 1. | | | Conscious sedation. 2. Right common femoral artery angiogram, | | | followed by left common femoral artery angiogram. 3. Aortoiliac | | | artery angiogram. 4. Selective left and right common femoral artery | | | angiograms. 5. Selective left coronary artery angiogram. 6. | | | Fractional flow reserve measurement of the mid left anterior | | | descending artery with significant fractional flow reserve value of | | | 0.63. 7. Successful percutaneous transluminal coronary angiography | | | and stenting of the proximal first diagonal branch of the left | | | anterior descending artery using a 2.25 x 15-mm Xience Alpine | | | drug-eluting stent in a T-bifurcation stenting technique with the | | | left anterior descending. 8. Successful percutaneous transluminal | | | coronary angiography and stenting of the mid to proximal left | | | anterior descending artery using a 3.25 x 38-mm Xience Alpine | | | drug-eluting stent postdilated using 3.25 and a 3.0 noncompliant | | | balloons. 9. Successful kissing balloons of the bifurcation left | | | anterior descending and first diagonal stents with 3.0 x 12-mm | | | noncompliant balloon in the left anterior descending and a 2.0 x 8-mm | | | noncompliant balloon in the diagonal stent. INDICATIONS | | | [id number] myocardial infarction. The patient turned down by | | | surgery given high the high risk for surgery. HISTORY OF PRESENT | | | ILLNESS The patient is a 70-year-old male with a history of | | | hypertension, hyperlipidemia, diabetes mellitus type 2, and end stage | | | renal disease who was recently started on hemodialysis. He was | | | admitted with non-ST elevation myocardial infarction. He was also | | | found to have severe aortic stenosis, moderately to severely reduced | | | left ventricular ejection fraction of 30% to 35%, and 3-vessel | | | coronary artery disease. Cardiothoracic surgery was consulted for | | | consideration of bypass surgery and aortic valve replacement. The | | | patient was found to be at high risk for surgery. The patient's best | | | option appeared to be percutaneous coronary intervention and | | | transcatheter aortic valve replacement. Please refer to Dr. Dangelo's | | | full diagnostic coronary artery angiogram report and consultation | | | report. The patient was referred for percutaneous coronary | | | intervention and FFR measurement of the mid left anterior descending | | | artery. The procedure risks, benefits, and alternatives were | | | discussed in detail with the patient and he agreed to proceed. | | | DESCRIPTION OF PROCEDURE The patient was brought to the cardiac | | | catheterization laboratory in the fasting state. After informed | | | consent was obtained, the patient was prepped and draped in the usual | | | sterile fashion. Lidocaine 2% was used for local anesthesia of the | | | right groin. The right femoral artery was accessed using a | | | micropuncture needle under fluoroscopic guidance. The femoral arteries | | | were calcified with clear outline of the arteries. Subsequently, a | | | 4-Filipino micropuncture sheath was put in place and angiogram of the | | | right common femoral artery was done which showed mild disease of the | | | right common femoral artery. However, there were very tortuous iliac | | | arteries. Subsequently, I tried to advance a Versacore wire. Due to | | | tortuosity in the iliac artery, it would not go through easily. I | | | removed the Versacore wire and used a Wholey wire. Again, there was | | | significant difficulty even with the Wholey wire. At this point, I | | | decided to use a Glidewire, and the Glidewire was advanced. As the | | | Glidewire was not advancing easily into the proximal common iliac | | | artery, I used a 4-Filipino [place] catheter. The [place] catheter was | | | advanced into the iliac artery. I wanted to evaluate the iliac artery | | | at that point to rule out any dissection plane as there was | | | difficulty advancing the wire. Subsequently, we did an angiogram using | | | the [place] catheter. The angiogram showed some decreased blood flow, | | | and I suspected there might be a dissection. At this point, i decided | | | to go from the left common femoral artery. The [place] catheter was | | | removed over the wire, then a 4-Filipino 11-cm sheath was placed in the | | | right common femoral artery. Then, we checked pressures in the right | | | common femoral artery using the sheath which showed good pressures. | | | Subsequently, 2% lidocaine was used for anesthesia of the left groin. | | | The left femoral artery was accessed using a micropuncture needle | | | under fluoroscopic guidance. Again, there was good visualization of | | | the outline of the common femoral artery with calcification. | | | Subsequently, using a 4-Filipino micropuncture sheath, we took | | | angiogram of the left common femoral artery again showing mild | | | calcification and mild disease in the left common femoral artery and | | | tortuosity of the iliac arteries, although the tortuosity appeared to | | | be less than the right iliac artery. Subsequently, the Versacore wire | | | was advanced into the aorta without much difficulty. A 4-Filipino, | | | 11-cm sheath was placed into the left femoral artery. I proceeded | | | with evaluation of both iliac arteries, especially to rule out any | | | dissection in the right iliac artery. Subsequently, a 4-Filipino | | | Omni Flush catheter was advanced into the distal abdominal aorta and | | | angiogram of the distal abdominal aorta and bilateral common and | | | external iliac arteries were obtained which showed no evidence of | | | dissection or perforation in the right iliac artery or left iliac | | | artery and showed severe tortuosity of the right iliac artery more | | | than the left iliac artery. At this point, we then proceeded with our | | | plan of FFR of the left anterior descending artery and, if | | | significant, to proceed with intervention. Subsequently, given the | | | tortuosity, I used a long sheath and, given the anticipated | | | bifurcation lesion in the LAD and diagonal, I choose a 7 Filipino. | | | Subsequently, a 7-Filipino, 35-cm sheath was advanced from the left | | | common femoral artery into the abdominal aorta without much | | | difficulty. The patient was given 5000 units of heparin. A guiding | | | 7-Filipino XB LAD 3.5 guiding catheter was advanced and used for | | | selective engagement of the left coronary system. A blood sample was | | | drawn for ACT. Subsequently, left coronary angiogram was done in | | | cranial view. ACT came back 102. Subsequently, we gave another 5000 | | | units of heparin intravenously. This was a total of 10,000. | | | Subsequently, an FFR wire was advanced and normalized in the left | | | main and advanced to the distal left anterior descending artery after | | | the long diseased segment in the mid LAD that actually started | | | proximal to the first diagonal branch. The FFR immediately went down | | | to 0.63 even without giving intravenous adenosine, which indicates a | | | hemodynamically significant lesion. Angiogram was repeated. At that | | | time, we sent a blood sample for another ACT. The FFR wire was | | | advanced into the distal left anterior descending artery. Given the | | | severe disease of the first diagonal branch, which appeared to be | | | coming at a 90-degee angle from the left anterior descending artery, I | | | felt the best option was to proceed with angioplasty, followed by | | | stenting of the diagonal branch with T-stenting technique. The | | | diagonal branch was a 2.0 to 2.5-mm vessel. The LAD appeared to be a | | | 3.25-mm vessel. Subsequently, a BMW wire was advanced into the | | | diagonal branch. A 2.0 x 8-mm compliant Emerge balloon was advanced | | | and inflated in the proximal diagonal at 6 atmospheres for 19 | | | seconds. The balloon was removed. To my surprise, ACT came back again | | | at 104 despite the patient being given now a total of 10,000 units | | | of heparin. At this point, we evaluated the venous access site, and | | | it appeared that medications and fluids had been running | | | appropriately. As the ACT did not change at all with 10,000 units of | | | heparin, I felt that it would be best to have a central line just in | | | case these medications and anticoagulants were not being delivered | | | through the peripheral line. Subsequently, 2% lidocaine was used for | | | anesthesia of the right groin. The right femoral vein was accessed | | | using a micropuncture needle. A 4-Filipino sheath was placed into the | | | right femoral vein without difficulty. Subsequently, extension tubing | | | was attached to the 4-Filipino venous sheath. We gave 5000 units of | | | heparin through the central line. Also, the patient was given a | | | double bolus of Integrilin, followed by an Integrilin drip. At this | | | point, we also changed delivery of the Integrilin drip through the | | | central venous line. At this point, we waited for ACT before | | | proceeding with stenting or further intervention. We waited 5 minutes | | | after the third 5000 units of heparin. The ACT was checked and it | | | was still low, so we gave another 5000 units of heparin which now came | | | to a total of 20,000 units of heparin. ACT was checked using 2 | | | different ACT machines and, again, the ACT, although improved, was | | | still not therapeutic. It went up to 178. At this point, I felt there | | | might be resistance to heparin with difficult anticoagulation in | | | this patient. I decided to go with Angiomax. Subsequently, we gave | | | the patient an Angiomax bolus, followed by a drip renally adjusted | | | dose. We waited 5 minutes after the bolus and checked the ACT which | | | went up to 362. At this point, we decided to proceed with | | | intervention. Subsequently, a 2.25 x 15-mm Xience Alpine | | | drug-eluting stent was advanced and deployed in the proximal | | | diagonal, covering the lesion with the proximal end of the stent at | | | the ostium of the diagonal branch; however, not protruding into the | | | LAD. The stent was deployed at 10 atmospheres for 17 seconds. At this | | | point, angiogram showed probably a plaque rupture at the proximal | | | LAD just before the takeoff of the first diagonal probably initiated | | | by advancing the stent. The was reduction of flow in the left | | | anterior descending artery. The patient's blood pressure started to | | | drop. At this point, I went quickly with intervention on the left | | | anterior descending artery. A 3.0 x 30-mm compliant Emerge balloon | | | was advanced and inflated in the mid left anterior descending artery | | | and the proximal left anterior descending artery just proximal to the | | | takeoff of the diagonal where there appeared to be a plaque rupture. | | | The balloon was inflated at nominal atmospheres. The balloon was | | | then advanced forward to cover the whole lesion and inflated again at | | | 10 atmospheres for 23 seconds and 10 atmospheres for 12 seconds. | | | Subsequently, a 3.25 x 38-mm Xience Alpine drug-eluting stent was | | | advanced and, with some minor difficulty, I was able to advance the | | | stent to cover the lesion distally and proximally. The stent was | | | extending to the proximal LAD covering the lesion just before the | | | takeoff of the first diagonal branch. The stent was deployed at 12 | | | atmospheres for 20 seconds. There was difficulty pulling the stent | | | balloon. With care, trying not to have the guide deeply engaged, we | | | tried to pull the balloon. However, it was not going. I inflated the | | | balloon at 4 atmospheres and then deflated, and with that we were | | | able to pull the stent balloon. The patient's blood pressure was | | | still dropping to the 80s and 90s. The patient was given 100 mcg of | | | phenylephrine. Subsequently, repeat angiogram showed rastafari of | | | flow in the left anterior descending artery. However, the diagonal | | | branch became occluded with an occluded stent likely due to plaque | | | shift. The stent did not appear to be really extending into the left | | | anterior descending artery. Subsequently, I tried to quickly advance | | | a BMW wire to cross into the diagonal branch. However, there was | | | difficulty crossing into the diagonal stent. As there was a | | | significant twist in the mid LAD stent, we decided to go with | | | postdilation of the LAD to optimize the stent expansion first and to | | | try to open the diagonal later. Subsequently, a 3.25 x 20-mm | | | noncompliant Quantum balloon was advanced and we started inflation | | | just distally at 20 atmospheres for 13 seconds with pulling backward | | | and in overlapping fashion to the proximal part of the stent at 20 | | | atmospheres for 12 seconds and 20 atmospheres for 19 seconds. There | | | is a part in the mid part of the stent that still had a waist despite | | | going to high pressures of 20. The balloon was then pulled, and | | | there was difficulty pulling the balloon. The balloon was inflated at | | | 4 atmospheres for 5 seconds, and then we were able to pull the | | | balloon backward a little. Again, there was difficulty pulling the | | | balloon. The balloon was advanced again forward with the balloon | | | completely inside the stent and inflated at 12 atmospheres for 15 | | | seconds. Eventually, we were able to pull the balloon out with care | | | not to cause dissection in the left main as the guide tended to go | | | deep. Repeat angiogram showed there was still a focal waist in the | | | mid LAD after the first diagonal, and the first diagonal remained | | | occluded. I went again with a shorter balloon at 3.25 x 12-mm | | | noncompliant Quantum balloon, advanced at the area of the waist, and | | | inflated at 20 atmospheres for 15 seconds, 20 atmospheres for 11 | | | seconds, 20 atmospheres for 37 seconds, and 20 atmospheres for 28 | | | seconds. Repeat angiogram again showed there was still some focal | | | waist in the mid LAD within the stent. At this point, we went with a | | | shorter balloon, a 32.5 x 8-mm noncompliant Quantum balloon, and | | | advanced and inflated at the area of the waist at 20 atmospheres for | | | 24 seconds, 20 atmospheres for 50 seconds, and 22 atmospheres for 25 | | | seconds. With that, there was improvement in the waist. However, | | | there was still some mild waist. We tried to pull the balloon. Again, | | | there was difficulty pulling the balloon. We did double-negative | | | pressure in the balloon, and then the balloon was inflated at 12 | | | atmospheres for 12 seconds in the area of the waist. We were then | | | able to pull the balloon. At this point, I proceed with a trial to | | | open the first diagonal stent. I tried the BMW wire. However, it | | | could not go through. Subsequently, a Whisper wire was advanced and | | | initially advanced into the mid left anterior descending stent and | | | then pulled back to assure placement within the LAD stent. With some | | | difficulty, I was able to cross into the diagonal branch. | | | Subsequently, a 2.0 x 8-mm noncompliant balloon was advanced and, | | | without much difficulty, crossed over into the diagonal branch. The | | | balloon was inflated at the ostium of the first diagonal branch | | | partly in the diagonal stent and partly in the LAD stent at 12 | | | atmospheres for 30 seconds. It was then advanced into the proximal | | | diagonal branch within the stent for postdilation of the stent and | | | inflated at 12 atmospheres for 20 seconds. Subsequently, the balloon | | | was left in the ostium of the diagonal branch, partly in the diagonal | | | branch and partly in the LAD stent. Another balloon, a 3.0 x 12-mm | | | noncompliant Quantum balloon, was advanced over the wave wire in the | | | LAD. Both balloons were placed in a kissing fashion with the | | | proximal ends of the stents in the proximal part of the LAD stent, | | | however, completely within the stent. Both kissing ballooning with | | | both balloons were inflated at 12 atmospheres for 17 seconds. Then, | | | both balloons were deflated. Subsequently, I advanced the LAD | | | balloon, 3.0 x 12-mm noncompliant Quantum balloon, more distally at | | | the area of the waist distal to the origin of the first diagonal | | | branch and inflated at 14 atmospheres for 12 seconds, 22 atmospheres | | | for 24 seconds, and with that the waist had resolved and the stent | | | there appeared to have expanded well. Subsequently, we did another | | | final kissing ballooning with a 2.0 x 8-mm noncompliant balloon in | | | the diagonal and a 3.0 x 12-mm noncompliant balloon in the LAD stent. | | | Both balloons were inflated at 12 atmospheres for 15 seconds. Both | | | balloons were deflated. Both balloons were removed, and | | | post-intervention angiogram then was obtained which showed excellent | | | results with reduction of the degree of stenosis from 75% in the LAD | | | down to 0% and from 80% in the diagonal branch down to 0% with NISSA 3 | | | flow. Both stents appeared to be well expanded. No evidence of | | | dissection or perforation. Final angiogram in a caudal view was | | | obtained which, again, showed excellent results with no evidence of | | | dissection or perforation, especially with special attention to the | | | left main which showed no evidence of dissection. All catheters | | | and guidewires were removed. The right femoral arterial sheath and | | | right femoral venous sheath both were 4-Filipino, and they were secured | | | in place with sutures. The left femoral 7-Filipino sheath was secured | | | with sutures to be removed on the floor based on ACT. The patient had | | | received multiple doses of Humberto-Synephrine during the intervention as | | | blood pressure had dropped. However, at the end of the procedure | | | blood pressure was stable at 92 systolic. Final ACT at the end of the | | | procedure showed an ACT of 282. The patient was continued on | | | Integrilin, and the Angiomax was stopped at the end of the procedure. | | | The patient was also given a loading dose of ticagrelor 130 mg. | | | The patient tolerated the procedure well without complications. | | | TOTAL CONTRAST 278 mL of Isovue. Due to the complex procedure and the | | | initial problems with access and suspicion for right iliac artery | | | dissection with need for angiogram of the iliac arteries, in addition | | | to the complex bifurcation lesion in the LAD we used 48 minutes of | | | fluoroscopy time. ESTIMATED BLOOD LOSS Less than 50 mL. | | | Overall, the patient tolerated the procedure well without | | | complications. RESULTS Aortoiliac artery angiogram and common | | | femoral artery angiograms. 1. The right and left common external | | | iliac arteries were patent without obstructive disease. There were | | | large vessels with severe tortuosity in the right more than the left, | | | especially of the external iliac arteries. The internal iliac | | | arteries were patent and appeared to have moderate disease distally | | | bilaterally. 2. Mild disease of the right and left common femoral | | | arteries with mild calcification. However, no obstructive disease. | | | Left coronary artery angiogram. 1. The left main coronary artery | | | trifurcates and gives rise to the left anterior descending, ramus | | | intermedius, and left circumflex arteries. The left anterior | | | descending artery is a short vessel without disease. 2. The left | | | anterior descending artery is a large type 3 vessel that has diffuse | | | calcification. There is a long, calcified, tubular lesion starting at | | | the proximal left anterior descending artery just before the takeoff | | | of the first diagonal branch and extending to the mid portion. | | | Angiographically, it appears to be in the range of 75%. FFR | | | measurement across this lesion is 0.63 indicating hemodynamically | | | significant lesion. The first diagonal branch, which is a 2.0 to | | | 2.5-mm vessel with severe disease proximally in the range of 80% to | | | 90%. 3. The ramus intermedius is a small vessel without obstructive | | | disease. 4. The left circumflex artery is a nondominant vessel that | | | gives rise to a small, tiny first marginal branch, followed by a | | | larger second marginal branch which appeared to be the main marginal | | | branch. The mid left circumflex artery before the second marginal | | | branch had moderate disease in the range of 80%. IMPRESSION 1. | | | Severe mid left anterior descending artery and proximal first diagonal | | | branch disease and moderate disease of the mid left circumflex | | | artery. 2. Successful percutaneous transluminal coronary angiography | | | and stenting of the first diagonal branch of the left anterior | | | descending artery using a 2.25 x 15-mm Xience Alpine drug-eluting | | | stent in a T-stenting fashion with the left anterior descending | | | stent. 3. Successful percutaneous transluminal coronary angiography | | | and stenting of the mid left anterior descending extending to the | | | proximal left anterior descending using a 3.25 x 38-mm Xience Alpine | | | drug eluting stent postdilated using a 3.25 and 3.0 noncompliant | | | Quantum balloons. 4. Successful kissing balloons of the diagonal and | | | left anterior descending stents using a 3.0 x 12-mm noncompliant | | | balloon in the left anterior descending stent and a 2.0 x 8-mm | | | noncompliant balloon in the diagonal stent. PLAN 1. The patient | | | will need to be on aspirin 81 mg for life. 2. The patient will need | | | to be on Brilinta 90 mg twice a day for at least 1 year. The patient | | | received a loading dose in the catheterization lab at the end of the | | | procedure. 3. We will continue Integrilin at renally adjusted dose | | | for 12 hours. 4. Continue carvedilol and atorvastatin. 5. The | | | patient will need staged assessment and PCI of the right coronary | | | artery. 6. After revascularization of the right coronary artery, the | | | patient will be referred for TAVR evaluation as an outpatient. | | | Read by LEYLA SWEET MD 03/10/2016 03:54 P Electronically | | | signed by Leyla Sweet MD on 03/22/2016 5:08 PM | | + + + + + | Procedure Note | + + | Elmo Rubio - 01/27/2019 2:59 PM PDT | | | | | | DATE OF PROCEDURE | | March 03, 2016 | | | | PROCEDURES PERFORMED | | 1. Conscious sedation. | | 2. Right common femoral artery angiogram, followed by left common femoral | | artery angiogram. | | 3. Aortoiliac artery angiogram. | | 4. Selective left and right common femoral artery angiograms. | | 5. Selective left coronary artery angiogram. | | 6. Fractional flow reserve measurement of the mid left anterior descending | | artery with significant fractional flow reserve value of 0.63. | | 7. Successful percutaneous transluminal coronary angiography and stenting | | of the proximal first diagonal branch of the left anterior descending | | artery using a 2.25 x 15-mm Xience Alpine drug-eluting stent in a | | T-bifurcation stenting technique with the left anterior descending. | | 8. Successful percutaneous transluminal coronary angiography and stenting | | of the mid to proximal left anterior descending artery using a 3.25 x | | 38-mm Xience Alpine drug-eluting stent postdilated using 3.25 and a 3.0 | | noncompliant balloons. | | 9. Successful kissing balloons of the bifurcation left anterior descending | | and first diagonal stents with 3.0 x 12-mm noncompliant balloon in the | | left anterior descending and a 2.0 x 8-mm noncompliant balloon in the | | diagonal stent. | | | | INDICATIONS | | [id number] myocardial infarction. The patient turned down by surgery | | given high the high risk for surgery. | | | | HISTORY OF PRESENT ILLNESS | | The patient is a 70-year-old male with a history of hypertension, | | hyperlipidemia, diabetes mellitus type 2, and end stage renal disease who | | was recently started on hemodialysis. He was admitted with non-ST elevation | | myocardial infarction. He was also found to have severe aortic stenosis, | | moderately to severely reduced left ventricular ejection fraction of 30% to | | 35%, and 3-vessel coronary artery disease. Cardiothoracic surgery was | | consulted for consideration of bypass surgery and aortic valve replacement. | | The patient was found to be at high risk for surgery. The patient's best | | option appeared to be percutaneous coronary intervention and transcatheter | | aortic valve replacement. Please refer to Dr. Dangelo's full diagnostic | | coronary artery angiogram report and consultation report. The patient was | | referred for percutaneous coronary intervention and FFR measurement of the | | mid left anterior descending artery. The procedure risks, benefits, and | | alternatives were discussed in detail with the patient and he agreed to | | proceed. | | | | DESCRIPTION OF PROCEDURE | | The patient was brought to the cardiac catheterization laboratory in the | | fasting state. After informed consent was obtained, the patient was prepped | | and draped in the usual sterile fashion. Lidocaine 2% was used for local | | anesthesia of the right groin. The right femoral artery was accessed using | | a micropuncture needle under fluoroscopic guidance. The femoral arteries | | were calcified with clear outline of the arteries. Subsequently, a 4-Filipino | | micropuncture sheath was put in place and angiogram of the right common | | femoral artery was done which showed mild disease of the right common | | femoral artery. However, there were very tortuous iliac arteries. | | Subsequently, I tried to advance a Versacore wire. Due to tortuosity in the | | iliac artery, it would not go through easily. I removed the Versacore wire | | and used a Wholey wire. Again, there was significant difficulty even with | | the Wholey wire. At this point, I decided to use a Glidewire, and the | | Glidewire was advanced. As the Glidewire was not advancing easily into the | | proximal common iliac artery, I used a 4-Filipino [place] catheter. The [place] | | catheter was advanced into the iliac artery. I wanted to evaluate the iliac | | artery at that point to rule out any dissection plane as there was | | difficulty advancing the wire. Subsequently, we did an angiogram using the | | [place] catheter. The angiogram showed some decreased blood flow, and I | | suspected there might be a dissection. At this point, i decided to go from | | the left common femoral artery. The [place] catheter was removed over the | | wire, then a 4-Filipino 11-cm sheath was placed in the right common femoral | | artery. Then, we checked pressures in the right common femoral artery using | | the sheath which showed good pressures. Subsequently, 2% lidocaine was used | | for anesthesia of the left groin. The left femoral artery was accessed | | using a micropuncture needle under fluoroscopic guidance. Again, there was | | good visualization of the outline of the common femoral artery with | | calcification. Subsequently, using a 4-Filipino micropuncture sheath, we took | | angiogram of the left common femoral artery again showing mild | | calcification and mild disease in the left common femoral artery and | | tortuosity of the iliac arteries, although the tortuosity appeared to be | | less than the right iliac artery. Subsequently, the Versacore wire was | | advanced into the aorta without much difficulty. A 4-Filipino, 11-cm sheath | | was placed into the left femoral artery. I proceeded with evaluation of | | both iliac arteries, especially to rule out any dissection in the right | | iliac artery. | | | | Subsequently, a 4-Filipino Omni Flush catheter was advanced into the distal | | abdominal aorta and angiogram of the distal abdominal aorta and bilateral | | common and external iliac arteries were obtained which showed no evidence | | of dissection or perforation in the right iliac artery or left iliac artery | | and showed severe tortuosity of the right iliac artery more than the left | | iliac artery. At this point, we then proceeded with our plan of FFR of the | | left anterior descending artery and, if significant, to proceed with | | intervention. Subsequently, given the tortuosity, I used a long sheath and, | | given the anticipated bifurcation lesion in the LAD and diagonal, I choose | | a 7 Filipino. Subsequently, a 7-Filipino, 35-cm sheath was advanced from the | | left common femoral artery into the abdominal aorta without much | | difficulty. The patient was given 5000 units of heparin. A guiding 7-Filipino | | XB LAD 3.5 guiding catheter was advanced and used for selective engagement | | of the left coronary system. A blood sample was drawn for ACT. | | Subsequently, left coronary angiogram was done in cranial view. ACT came | | back 102. Subsequently, we gave another 5000 units of heparin | | intravenously. This was a total of 10,000. Subsequently, an FFR wire was | | advanced and normalized in the left main and advanced to the distal left | | anterior descending artery after the long diseased segment in the mid LAD | | that actually started proximal to the first diagonal branch. The FFR | | immediately went down to 0.63 even without giving intravenous adenosine, | | which indicates a hemodynamically significant lesion. Angiogram was | | repeated. At that time, we sent a blood sample for another ACT. The FFR | | wire was advanced into the distal left anterior descending artery. Given | | the severe disease of the first diagonal branch, which appeared to be | | coming at a 90-degee angle from the left anterior descending artery, I felt | | the best option was to proceed with angioplasty, followed by stenting of | | the diagonal branch with T-stenting technique. The diagonal branch was a | | 2.0 to 2.5-mm vessel. The LAD appeared to be a 3.25-mm vessel. | | Subsequently, a BMW wire was advanced into the diagonal branch. A 2.0 x | | 8-mm compliant Emerge balloon was advanced and inflated in the proximal | | diagonal at 6 atmospheres for 19 seconds. The balloon was removed. To my | | surprise, ACT came back again at 104 despite the patient being given now a | | total of 10,000 units of heparin. At this point, we evaluated the venous | | access site, and it appeared that medications and fluids had been running | | appropriately. As the ACT did not change at all with 10,000 units of | | heparin, I felt that it would be best to have a central line just in case | | these medications and anticoagulants were not being delivered through the | | peripheral line. Subsequently, 2% lidocaine was used for anesthesia of the | | right groin. The right femoral vein was accessed using a micropuncture | | needle. A 4-Filipino sheath was placed into the right femoral vein without | | difficulty. Subsequently, extension tubing was attached to the 4-Filipino | | venous sheath. We gave 5000 units of heparin through the central line. | | Also, the patient was given a double bolus of Integrilin, followed by an | | Integrilin drip. At this point, we also changed delivery of the Integrilin | | drip through the central venous line. At this point, we waited for ACT | | before proceeding with stenting or further intervention. We waited 5 | | minutes after the third 5000 units of heparin. The ACT was checked and it | | was still low, so we gave another 5000 units of heparin which now came to a | | total of 20,000 units of heparin. ACT was checked using 2 different ACT | | machines and, again, the ACT, although improved, was still not therapeutic. | | It went up to 178. At this point, I felt there might be resistance to | | heparin with difficult anticoagulation in this patient. I decided to go | | with Angiomax. Subsequently, we gave the patient an Angiomax bolus, | | followed by a drip renally adjusted dose. We waited 5 minutes after the | | bolus and checked the ACT which went up to 362. At this point, we decided | | to proceed with intervention. | | | | Subsequently, a 2.25 x 15-mm Xience Alpine drug-eluting stent was advanced | | and deployed in the proximal diagonal, covering the lesion with the | | proximal end of the stent at the ostium of the diagonal branch; however, | | not protruding into the LAD. The stent was deployed at 10 atmospheres for | | 17 seconds. At this point, angiogram showed probably a plaque rupture at | | the proximal LAD just before the takeoff of the first diagonal probably | | initiated by advancing the stent. The was reduction of flow in the left | | anterior descending artery. The patient's blood pressure started to drop. | | At this point, I went quickly with intervention on the left anterior | | descending artery. A 3.0 x 30-mm compliant Emerge balloon was advanced and | | inflated in the mid left anterior descending artery and the proximal left | | anterior descending artery just proximal to the takeoff of the diagonal | | where there appeared to be a plaque rupture. The balloon was inflated at | | nominal atmospheres. The balloon was then advanced forward to cover the | | whole lesion and inflated again at 10 atmospheres for 23 seconds and 10 | | atmospheres for 12 seconds. Subsequently, a 3.25 x 38-mm Xience Alpine | | drug-eluting stent was advanced and, with some minor difficulty, I was able | | to advance the stent to cover the lesion distally and proximally. The stent | | was extending to the proximal LAD covering the lesion just before the | | takeoff of the first diagonal branch. The stent was deployed at 12 | | atmospheres for 20 seconds. There was difficulty pulling the stent balloon. | | With care, trying not to have the guide deeply engaged, we tried to pull | | the balloon. However, it was not going. I inflated the balloon at 4 | | atmospheres and then deflated, and with that we were able to pull the stent | | balloon. The patient's blood pressure was still dropping to the 80s and | | 90s. The patient was given 100 mcg of phenylephrine. Subsequently, repeat | | angiogram showed rastafari of flow in the left anterior descending | | artery. However, the diagonal branch became occluded with an occluded stent | | likely due to plaque shift. The stent did not appear to be really extending | | into the left anterior descending artery. Subsequently, I tried to quickly | | advance a BMW wire to cross into the diagonal branch. However, there was | | difficulty crossing into the diagonal stent. As there was a significant | | twist in the mid LAD stent, we decided to go with postdilation of the LAD | | to optimize the stent expansion first and to try to open the diagonal | | later. Subsequently, a 3.25 x 20-mm noncompliant Quantum balloon was | | advanced and we started inflation just distally at 20 atmospheres for 13 | | seconds with pulling backward and in overlapping fashion to the proximal | | part of the stent at 20 atmospheres for 12 seconds and 20 atmospheres for | | 19 seconds. There is a part in the mid part of the stent that still had a | | waist despite going to high pressures of 20. The balloon was then pulled, | | and there was difficulty pulling the balloon. The balloon was inflated at 4 | | atmospheres for 5 seconds, and then we were able to pull the balloon | | backward a little. Again, there was difficulty pulling the balloon. The | | balloon was advanced again forward with the balloon completely inside the | | stent and inflated at 12 atmospheres for 15 seconds. Eventually, we were | | able to pull the balloon out with care not to cause dissection in the left | | main as the guide tended to go deep. Repeat angiogram showed there was | | still a focal waist in the mid LAD after the first diagonal, and the first | | diagonal remained occluded. I went again with a shorter balloon at 3.25 x | | 12-mm noncompliant Quantum balloon, advanced at the area of the waist, and | | inflated at 20 atmospheres for 15 seconds, 20 atmospheres for 11 seconds, | | 20 atmospheres for 37 seconds, and 20 atmospheres for 28 seconds. Repeat | | angiogram again showed there was still some focal waist in the mid LAD | | within the stent. At this point, we went with a shorter balloon, a 32.5 x | | 8-mm noncompliant Quantum balloon, and advanced and inflated at the area of | | the waist at 20 atmospheres for 24 seconds, 20 atmospheres for 50 seconds, | | and 22 atmospheres for 25 seconds. With that, there was improvement in the | | waist. However, there was still some mild waist. We tried to pull the | | balloon. Again, there was difficulty pulling the balloon. We did | | double-negative pressure in the balloon, and then the balloon was inflated | | at 12 atmospheres for 12 seconds in the area of the waist. We were then | | able to pull the balloon. | | | | At this point, I proceed with a trial to open the first diagonal stent. I | | tried the BMW wire. However, it could not go through. Subsequently, a | | Whisper wire was advanced and initially advanced into the mid left anterior | | descending stent and then pulled back to assure placement within the LAD | | stent. With some difficulty, I was able to cross into the diagonal branch. | | Subsequently, a 2.0 x 8-mm noncompliant balloon was advanced and, without | | much difficulty, crossed over into the diagonal branch. The balloon was | | inflated at the ostium of the first diagonal branch partly in the diagonal | | stent and partly in the LAD stent at 12 atmospheres for 30 seconds. It was | | then advanced into the proximal diagonal branch within the stent for | | postdilation of the stent and inflated at 12 atmospheres for 20 seconds. | | Subsequently, the balloon was left in the ostium of the diagonal branch, | | partly in the diagonal branch and partly in the LAD stent. Another balloon, | | a 3.0 x 12-mm noncompliant Quantum balloon, was advanced over the wave wire | | in the LAD. Both balloons were placed in a kissing fashion with the | | proximal ends of the stents in the proximal part of the LAD stent, however, | | completely within the stent. Both kissing ballooning with both balloons | | were inflated at 12 atmospheres for 17 seconds. Then, both balloons were | | deflated. Subsequently, I advanced the LAD balloon, 3.0 x 12-mm | | noncompliant Quantum balloon, more distally at the area of the waist distal | | to the origin of the first diagonal branch and inflated at 14 atmospheres | | for 12 seconds, 22 atmospheres for 24 seconds, and with that the waist had | | resolved and the stent there appeared to have expanded well. Subsequently, | | we did another final kissing ballooning with a 2.0 x 8-mm noncompliant | | balloon in the diagonal and a 3.0 x 12-mm noncompliant balloon in the LAD | | stent. Both balloons were inflated at 12 atmospheres for 15 seconds. Both | | balloons were deflated. Both balloons were removed, and post-intervention | | angiogram then was obtained which showed excellent results with reduction | | of the degree of stenosis from 75% in the LAD down to 0% and from 80% in | | the diagonal branch down to 0% with NISSA 3 flow. Both stents appeared to be | | well expanded. No evidence of dissection or perforation. Final angiogram in | | a caudal view was obtained which, again, showed excellent results with no | | evidence of dissection or perforation, especially with special attention to | | the left main which showed no evidence of dissection. | | | | All catheters and guidewires were removed. The right femoral arterial | | sheath and right femoral venous sheath both were 4-Filipino, and they were | | secured in place with sutures. The left femoral 7-Filipino sheath was secured | | with sutures to be removed on the floor based on ACT. The patient had | | received multiple doses of Humberto-Synephrine during the intervention as blood | | pressure had dropped. However, at the end of the procedure blood pressure | | was stable at 92 systolic. Final ACT at the end of the procedure showed an | | ACT of 282. The patient was continued on Integrilin, and the Angiomax was | | stopped at the end of the procedure. The patient was also given a loading | | dose of ticagrelor 130 mg. | | | | The patient tolerated the procedure well without complications. | | | | TOTAL CONTRAST | | 278 mL of Isovue. Due to the complex procedure and the initial problems | | with access and suspicion for right iliac artery dissection with need for | | angiogram of the iliac arteries, in addition to the complex bifurcation | | lesion in the LAD we used 48 minutes of fluoroscopy time. | | | | ESTIMATED BLOOD LOSS | | Less than 50 mL. | | | | Overall, the patient tolerated the procedure well without complications. | | | | RESULTS | | Aortoiliac artery angiogram and common femoral artery angiograms. | | 1. The right and left common external iliac arteries were patent without | | obstructive disease. There were large vessels with severe tortuosity in | | the right more than the left, especially of the external iliac arteries. | | The internal iliac arteries were patent and appeared to have moderate | | disease distally bilaterally. | | 2. Mild disease of the right and left common femoral arteries with mild | | calcification. However, no obstructive disease. | | | | Left coronary artery angiogram. | | 1. The left main coronary artery trifurcates and gives rise to the left | | anterior descending, ramus intermedius, and left circumflex arteries. | | The left anterior descending artery is a short vessel without disease. | | 2. The left anterior descending artery is a large type 3 vessel that has | | diffuse calcification. There is a long, calcified, tubular lesion | | starting at the proximal left anterior descending artery just before the | | takeoff of the first diagonal branch and extending to the mid portion. | | Angiographically, it appears to be in the range of 75%. FFR measurement | | across this lesion is 0.63 indicating hemodynamically significant | | lesion. The first diagonal branch, which is a 2.0 to 2.5-mm vessel with | | severe disease proximally in the range of 80% to 90%. | | 3. The ramus intermedius is a small vessel without obstructive disease. | | 4. The left circumflex artery is a nondominant vessel that gives rise to a | | small, tiny first marginal branch, followed by a larger second marginal | | branch which appeared to be the main marginal branch. The mid left | | circumflex artery before the second marginal branch had moderate disease | | in the range of 80%. | | | | IMPRESSION | | 1. 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 | | 2. Successful percutaneous transluminal coronary angiography and stenting | | of the first diagonal branch of the left anterior descending artery | | using a 2.25 x 15-mm Xience Alpine drug-eluting stent in a T-stenting | | fashion with the left anterior descending stent. | | 3. Successful percutaneous transluminal coronary angiography and stenting | | of the mid left anterior descending extending to the proximal left | | anterior descending using a 3.25 x 38-mm Xience Alpine drug eluting | | stent postdilated using a 3.25 and 3.0 noncompliant Quantum balloons. | | 4. Successful kissing balloons of the diagonal and left anterior descending | | stents using a 3.0 x 12-mm noncompliant balloon in the left anterior | | descending stent and a 2.0 x 8-mm noncompliant balloon in the diagonal | | stent. | | | | PLAN | | 1. The patient will need to be on aspirin 81 mg for life. | | 2. The patient will need to be on Brilinta 90 mg twice a day for at least 1 | | year. The patient received a loading dose in the catheterization lab at | | the end of the procedure. | | 3. We will continue Integrilin at renally adjusted dose for 12 hours. | | 4. Continue carvedilol and atorvastatin. | | 5. The patient will need staged assessment and PCI of the right coronary | | artery. | | 6. After revascularization of the right coronary artery, the patient will | | be referred for TAVR evaluation as an outpatient. | | | | Read by LEYLA SWEET MD 03/10/2016 03:54 P | | | | | + + CV CARDIAC PROCEDURE (03/10/2016 2:25 PM PDT) + + | Specimen | + + | | + + + + + | Narrative | Performed At | + + + | | | | | | | DATE OF PROCEDURE March 03, 2016 PROCEDURES PERFORMED 1. | | | Conscious sedation. 2. Right common femoral artery angiogram, | | | followed by left common femoral artery angiogram. 3. Aortoiliac | | | artery angiogram. 4. Selective left and right common femoral artery | | | angiograms. 5. Selective left coronary artery angiogram. 6. | | | Fractional flow reserve measurement of the mid left anterior | | | descending artery with significant fractional flow reserve value of | | | 0.63. 7. Successful percutaneous transluminal coronary angiography | | | and stenting of the proximal first diagonal branch of the left | | | anterior descending artery using a 2.25 x 15-mm Xience Alpine | | | drug-eluting stent in a T-bifurcation stenting technique with the | | | left anterior descending. 8. Successful percutaneous transluminal | | | coronary angiography and stenting of the mid to proximal left | | | anterior descending artery using a 3.25 x 38-mm Xience Alpine | | | drug-eluting stent postdilated using 3.25 and a 3.0 noncompliant | | | balloons. 9. Successful kissing balloons of the bifurcation left | | | anterior descending and first diagonal stents with 3.0 x 12-mm | | | noncompliant balloon in the left anterior descending and a 2.0 x 8-mm | | | noncompliant balloon in the diagonal stent. INDICATIONS | | | [id number] myocardial infarction. The patient turned down by | | | surgery given high the high risk for surgery. HISTORY OF PRESENT | | | ILLNESS The patient is a 70-year-old male with a history of | | | hypertension, hyperlipidemia, diabetes mellitus type 2, and end stage | | | renal disease who was recently started on hemodialysis. He was | | | admitted with non-ST elevation myocardial infarction. He was also | | | found to have severe aortic stenosis, moderately to severely reduced | | | left ventricular ejection fraction of 30% to 35%, and 3-vessel | | | coronary artery disease. Cardiothoracic surgery was consulted for | | | consideration of bypass surgery and aortic valve replacement. The | | | patient was found to be at high risk for surgery. The patient's best | | | option appeared to be percutaneous coronary intervention and | | | transcatheter aortic valve replacement. Please refer to Dr. Dangelo's | | | full diagnostic coronary artery angiogram report and consultation | | | report. The patient was referred for percutaneous coronary | | | intervention and FFR measurement of the mid left anterior descending | | | artery. The procedure risks, benefits, and alternatives were | | | discussed in detail with the patient and he agreed to proceed. | | | DESCRIPTION OF PROCEDURE The patient was brought to the cardiac | | | catheterization laboratory in the fasting state. After informed | | | consent was obtained, the patient was prepped and draped in the usual | | | sterile fashion. Lidocaine 2% was used for local anesthesia of the | | | right groin. The right femoral artery was accessed using a | | | micropuncture needle under fluoroscopic guidance. The femoral arteries | | | were calcified with clear outline of the arteries. Subsequently, a | | | 4-Filipino micropuncture sheath was put in place and angiogram of the | | | right common femoral artery was done which showed mild disease of the | | | right common femoral artery. However, there were very tortuous iliac | | | arteries. Subsequently, I tried to advance a Versacore wire. Due to | | | tortuosity in the iliac artery, it would not go through easily. I | | | removed the Versacore wire and used a Wholey wire. Again, there was | | | significant difficulty even with the Wholey wire. At this point, I | | | decided to use a Glidewire, and the Glidewire was advanced. As the | | | Glidewire was not advancing easily into the proximal common iliac | | | artery, I used a 4-Filipino [place] catheter. The [place] catheter was | | | advanced into the iliac artery. I wanted to evaluate the iliac artery | | | at that point to rule out any dissection plane as there was | | | difficulty advancing the wire. Subsequently, we did an angiogram using | | | the [place] catheter. The angiogram showed some decreased blood flow, | | | and I suspected there might be a dissection. At this point, i decided | | | to go from the left common femoral artery. The [place] catheter was | | | removed over the wire, then a 4-Filipino 11-cm sheath was placed in the | | | right common femoral artery. Then, we checked pressures in the right | | | common femoral artery using the sheath which showed good pressures. | | | Subsequently, 2% lidocaine was used for anesthesia of the left groin. | | | The left femoral artery was accessed using a micropuncture needle | | | under fluoroscopic guidance. Again, there was good visualization of | | | the outline of the common femoral artery with calcification. | | | Subsequently, using a 4-Filipino micropuncture sheath, we took | | | angiogram of the left common femoral artery again showing mild | | | calcification and mild disease in the left common femoral artery and | | | tortuosity of the iliac arteries, although the tortuosity appeared to | | | be less than the right iliac artery. Subsequently, the Versacore wire | | | was advanced into the aorta without much difficulty. A 4-Filipino, | | | 11-cm sheath was placed into the left femoral artery. I proceeded | | | with evaluation of both iliac arteries, especially to rule out any | | | dissection in the right iliac artery. Subsequently, a 4-Filipino | | | Omni Flush catheter was advanced into the distal abdominal aorta and | | | angiogram of the distal abdominal aorta and bilateral common and | | | external iliac arteries were obtained which showed no evidence of | | | dissection or perforation in the right iliac artery or left iliac | | | artery and showed severe tortuosity of the right iliac artery more | | | than the left iliac artery. At this point, we then proceeded with our | | | plan of FFR of the left anterior descending artery and, if | | | significant, to proceed with intervention. Subsequently, given the | | | tortuosity, I used a long sheath and, given the anticipated | | | bifurcation lesion in the LAD and diagonal, I choose a 7 Filipino. | | | Subsequently, a 7-Filipino, 35-cm sheath was advanced from the left | | | common femoral artery into the abdominal aorta without much | | | difficulty. The patient was given 5000 units of heparin. A guiding | | | 7-Filipino XB LAD 3.5 guiding catheter was advanced and used for | | | selective engagement of the left coronary system. A blood sample was | | | drawn for ACT. Subsequently, left coronary angiogram was done in | | | cranial view. ACT came back 102. Subsequently, we gave another 5000 | | | units of heparin intravenously. This was a total of 10,000. | | | Subsequently, an FFR wire was advanced and normalized in the left | | | main and advanced to the distal left anterior descending artery after | | | the long diseased segment in the mid LAD that actually started | | | proximal to the first diagonal branch. The FFR immediately went down | | | to 0.63 even without giving intravenous adenosine, which indicates a | | | hemodynamically significant lesion. Angiogram was repeated. At that | | | time, we sent a blood sample for another ACT. The FFR wire was | | | advanced into the distal left anterior descending artery. Given the | | | severe disease of the first diagonal branch, which appeared to be | | | coming at a 90-degee angle from the left anterior descending artery, I | | | felt the best option was to proceed with angioplasty, followed by | | | stenting of the diagonal branch with T-stenting technique. The | | | diagonal branch was a 2.0 to 2.5-mm vessel. The LAD appeared to be a | | | 3.25-mm vessel. Subsequently, a BMW wire was advanced into the | | | diagonal branch. A 2.0 x 8-mm compliant Emerge balloon was advanced | | | and inflated in the proximal diagonal at 6 atmospheres for 19 | | | seconds. The balloon was removed. To my surprise, ACT came back again | | | at 104 despite the patient being given now a total of 10,000 units | | | of heparin. At this point, we evaluated the venous access site, and | | | it appeared that medications and fluids had been running | | | appropriately. As the ACT did not change at all with 10,000 units of | | | heparin, I felt that it would be best to have a central line just in | | | case these medications and anticoagulants were not being delivered | | | through the peripheral line. Subsequently, 2% lidocaine was used for | | | anesthesia of the right groin. The right femoral vein was accessed | | | using a micropuncture needle. A 4-Filipino sheath was placed into the | | | right femoral vein without difficulty. Subsequently, extension tubing | | | was attached to the 4-Filipino venous sheath. We gave 5000 units of | | | heparin through the central line. Also, the patient was given a | | | double bolus of Integrilin, followed by an Integrilin drip. At this | | | point, we also changed delivery of the Integrilin drip through the | | | central venous line. At this point, we waited for ACT before | | | proceeding with stenting or further intervention. We waited 5 minutes | | | after the third 5000 units of heparin. The ACT was checked and it | | | was still low, so we gave another 5000 units of heparin which now came | | | to a total of 20,000 units of heparin. ACT was checked using 2 | | | different ACT machines and, again, the ACT, although improved, was | | | still not therapeutic. It went up to 178. At this point, I felt there | | | might be resistance to heparin with difficult anticoagulation in | | | this patient. I decided to go with Angiomax. Subsequently, we gave | | | the patient an Angiomax bolus, followed by a drip renally adjusted | | | dose. We waited 5 minutes after the bolus and checked the ACT which | | | went up to 362. At this point, we decided to proceed with | | | intervention. Subsequently, a 2.25 x 15-mm Xience Alpine | | | drug-eluting stent was advanced and deployed in the proximal | | | diagonal, covering the lesion with the proximal end of the stent at | | | the ostium of the diagonal branch; however, not protruding into the | | | LAD. The stent was deployed at 10 atmospheres for 17 seconds. At this | | | point, angiogram showed probably a plaque rupture at the proximal | | | LAD just before the takeoff of the first diagonal probably initiated | | | by advancing the stent. The was reduction of flow in the left | | | anterior descending artery. The patient's blood pressure started to | | | drop. At this point, I went quickly with intervention on the left | | | anterior descending artery. A 3.0 x 30-mm compliant Emerge balloon | | | was advanced and inflated in the mid left anterior descending artery | | | and the proximal left anterior descending artery just proximal to the | | | takeoff of the diagonal where there appeared to be a plaque rupture. | | | The balloon was inflated at nominal atmospheres. The balloon was | | | then advanced forward to cover the whole lesion and inflated again at | | | 10 atmospheres for 23 seconds and 10 atmospheres for 12 seconds. | | | Subsequently, a 3.25 x 38-mm Xience Alpine drug-eluting stent was | | | advanced and, with some minor difficulty, I was able to advance the | | | stent to cover the lesion distally and proximally. The stent was | | | extending to the proximal LAD covering the lesion just before the | | | takeoff of the first diagonal branch. The stent was deployed at 12 | | | atmospheres for 20 seconds. There was difficulty pulling the stent | | | balloon. With care, trying not to have the guide deeply engaged, we | | | tried to pull the balloon. However, it was not going. I inflated the | | | balloon at 4 atmospheres and then deflated, and with that we were | | | able to pull the stent balloon. The patient's blood pressure was | | | still dropping to the 80s and 90s. The patient was given 100 mcg of | | | phenylephrine. Subsequently, repeat angiogram showed rastafari of | | | flow in the left anterior descending artery. However, the diagonal | | | branch became occluded with an occluded stent likely due to plaque | | | shift. The stent did not appear to be really extending into the left | | | anterior descending artery. Subsequently, I tried to quickly advance | | | a BMW wire to cross into the diagonal branch. However, there was | | | difficulty crossing into the diagonal stent. As there was a | | | significant twist in the mid LAD stent, we decided to go with | | | postdilation of the LAD to optimize the stent expansion first and to | | | try to open the diagonal later. Subsequently, a 3.25 x 20-mm | | | noncompliant Quantum balloon was advanced and we started inflation | | | just distally at 20 atmospheres for 13 seconds with pulling backward | | | and in overlapping fashion to the proximal part of the stent at 20 | | | atmospheres for 12 seconds and 20 atmospheres for 19 seconds. There | | | is a part in the mid part of the stent that still had a waist despite | | | going to high pressures of 20. The balloon was then pulled, and | | | there was difficulty pulling the balloon. The balloon was inflated at | | | 4 atmospheres for 5 seconds, and then we were able to pull the | | | balloon backward a little. Again, there was difficulty pulling the | | | balloon. The balloon was advanced again forward with the balloon | | | completely inside the stent and inflated at 12 atmospheres for 15 | | | seconds. Eventually, we were able to pull the balloon out with care | | | not to cause dissection in the left main as the guide tended to go | | | deep. Repeat angiogram showed there was still a focal waist in the | | | mid LAD after the first diagonal, and the first diagonal remained | | | occluded. I went again with a shorter balloon at 3.25 x 12-mm | | | noncompliant Quantum balloon, advanced at the area of the waist, and | | | inflated at 20 atmospheres for 15 seconds, 20 atmospheres for 11 | | | seconds, 20 atmospheres for 37 seconds, and 20 atmospheres for 28 | | | seconds. Repeat angiogram again showed there was still some focal | | | waist in the mid LAD within the stent. At this point, we went with a | | | shorter balloon, a 32.5 x 8-mm noncompliant Quantum balloon, and | | | advanced and inflated at the area of the waist at 20 atmospheres for | | | 24 seconds, 20 atmospheres for 50 seconds, and 22 atmospheres for 25 | | | seconds. With that, there was improvement in the waist. However, | | | there was still some mild waist. We tried to pull the balloon. Again, | | | there was difficulty pulling the balloon. We did double-negative | | | pressure in the balloon, and then the balloon was inflated at 12 | | | atmospheres for 12 seconds in the area of the waist. We were then | | | able to pull the balloon. At this point, I proceed with a trial to | | | open the first diagonal stent. I tried the BMW wire. However, it | | | could not go through. Subsequently, a Whisper wire was advanced and | | | initially advanced into the mid left anterior descending stent and | | | then pulled back to assure placement within the LAD stent. With some | | | difficulty, I was able to cross into the diagonal branch. | | | Subsequently, a 2.0 x 8-mm noncompliant balloon was advanced and, | | | without much difficulty, crossed over into the diagonal branch. The | | | balloon was inflated at the ostium of the first diagonal branch | | | partly in the diagonal stent and partly in the LAD stent at 12 | | | atmospheres for 30 seconds. It was then advanced into the proximal | | | diagonal branch within the stent for postdilation of the stent and | | | inflated at 12 atmospheres for 20 seconds. Subsequently, the balloon | | | was left in the ostium of the diagonal branch, partly in the diagonal | | | branch and partly in the LAD stent. Another balloon, a 3.0 x 12-mm | | | noncompliant Quantum balloon, was advanced over the wave wire in the | | | LAD. Both balloons were placed in a kissing fashion with the | | | proximal ends of the stents in the proximal part of the LAD stent, | | | however, completely within the stent. Both kissing ballooning with | | | both balloons were inflated at 12 atmospheres for 17 seconds. Then, | | | both balloons were deflated. Subsequently, I advanced the LAD | | | balloon, 3.0 x 12-mm noncompliant Quantum balloon, more distally at | | | the area of the waist distal to the origin of the first diagonal | | | branch and inflated at 14 atmospheres for 12 seconds, 22 atmospheres | | | for 24 seconds, and with that the waist had resolved and the stent | | | there appeared to have expanded well. Subsequently, we did another | | | final kissing ballooning with a 2.0 x 8-mm noncompliant balloon in | | | the diagonal and a 3.0 x 12-mm noncompliant balloon in the LAD stent. | | | Both balloons were inflated at 12 atmospheres for 15 seconds. Both | | | balloons were deflated. Both balloons were removed, and | | | post-intervention angiogram then was obtained which showed excellent | | | results with reduction of the degree of stenosis from 75% in the LAD | | | down to 0% and from 80% in the diagonal branch down to 0% with NISSA 3 | | | flow. Both stents appeared to be well expanded. No evidence of | | | dissection or perforation. Final angiogram in a caudal view was | | | obtained which, again, showed excellent results with no evidence of | | | dissection or perforation, especially with special attention to the | | | left main which showed no evidence of dissection. All catheters | | | and guidewires were removed. The right femoral arterial sheath and | | | right femoral venous sheath both were 4-Filipino, and they were secured | | | in place with sutures. The left femoral 7-Filipino sheath was secured | | | with sutures to be removed on the floor based on ACT. The patient had | | | received multiple doses of Humberto-Synephrine during the intervention as | | | blood pressure had dropped. However, at the end of the procedure | | | blood pressure was stable at 92 systolic. Final ACT at the end of the | | | procedure showed an ACT of 282. The patient was continued on | | | Integrilin, and the Angiomax was stopped at the end of the procedure. | | | The patient was also given a loading dose of ticagrelor 130 mg. | | | The patient tolerated the procedure well without complications. | | | TOTAL CONTRAST 278 mL of Isovue. Due to the complex procedure and the | | | initial problems with access and suspicion for right iliac artery | | | dissection with need for angiogram of the iliac arteries, in addition | | | to the complex bifurcation lesion in the LAD we used 48 minutes of | | | fluoroscopy time. ESTIMATED BLOOD LOSS Less than 50 mL. | | | Overall, the patient tolerated the procedure well without | | | complications. RESULTS Aortoiliac artery angiogram and common | | | femoral artery angiograms. 1. The right and left common external | | | iliac arteries were patent without obstructive disease. There were | | | large vessels with severe tortuosity in the right more than the left, | | | especially of the external iliac arteries. The internal iliac | | | arteries were patent and appeared to have moderate disease distally | | | bilaterally. 2. Mild disease of the right and left common femoral | | | arteries with mild calcification. However, no obstructive disease. | | | Left coronary artery angiogram. 1. The left main coronary artery | | | trifurcates and gives rise to the left anterior descending, ramus | | | intermedius, and left circumflex arteries. The left anterior | | | descending artery is a short vessel without disease. 2. The left | | | anterior descending artery is a large type 3 vessel that has diffuse | | | calcification. There is a long, calcified, tubular lesion starting at | | | the proximal left anterior descending artery just before the takeoff | | | of the first diagonal branch and extending to the mid portion. | | | Angiographically, it appears to be in the range of 75%. FFR | | | measurement across this lesion is 0.63 indicating hemodynamically | | | significant lesion. The first diagonal branch, which is a 2.0 to | | | 2.5-mm vessel with severe disease proximally in the range of 80% to | | | 90%. 3. The ramus intermedius is a small vessel without obstructive | | | disease. 4. The left circumflex artery is a nondominant vessel that | | | gives rise to a small, tiny first marginal branch, followed by a | | | larger second marginal branch which appeared to be the main marginal | | | branch. The mid left circumflex artery before the second marginal | | | branch had moderate disease in the range of 80%. IMPRESSION 1. | | | Severe mid left anterior descending artery and proximal first diagonal | | | branch disease and moderate disease of the mid left circumflex | | | artery. 2. Successful percutaneous transluminal coronary angiography | | | and stenting of the first diagonal branch of the left anterior | | | descending artery using a 2.25 x 15-mm Xience Alpine drug-eluting | | | stent in a T-stenting fashion with the left anterior descending | | | stent. 3. Successful percutaneous transluminal coronary angiography | | | and stenting of the mid left anterior descending extending to the | | | proximal left anterior descending using a 3.25 x 38-mm Xience Alpine | | | drug eluting stent postdilated using a 3.25 and 3.0 noncompliant | | | Quantum balloons. 4. Successful kissing balloons of the diagonal and | | | left anterior descending stents using a 3.0 x 12-mm noncompliant | | | balloon in the left anterior descending stent and a 2.0 x 8-mm | | | noncompliant balloon in the diagonal stent. PLAN 1. The patient | | | will need to be on aspirin 81 mg for life. 2. The patient will need | | | to be on Brilinta 90 mg twice a day for at least 1 year. The patient | | | received a loading dose in the catheterization lab at the end of the | | | procedure. 3. We will continue Integrilin at renally adjusted dose | | | for 12 hours. 4. Continue carvedilol and atorvastatin. 5. The | | | patient will need staged assessment and PCI of the right coronary | | | artery. 6. After revascularization of the right coronary artery, the | | | patient will be referred for TAVR evaluation as an outpatient. | | | Read by LEYLA SWEET MD 03/10/2016 03:54 P Electronically | | | signed by Leyla Sweet MD on 03/22/2016 5:08 PM | | + + + + + | Procedure Note | + + | Elmo Rubio Conversion - 01/27/2019 2:59 PM PDT | | | | | | DATE OF PROCEDURE | | March 03, 2016 | | | | PROCEDURES PERFORMED | | 1. Conscious sedation. | | 2. Right common femoral artery angiogram, followed by left common femoral | | artery angiogram. | | 3. Aortoiliac artery angiogram. | | 4. Selective left and right common femoral artery angiograms. | | 5. Selective left coronary artery angiogram. | | 6. Fractional flow reserve measurement of the mid left anterior descending | | artery with significant fractional flow reserve value of 0.63. | | 7. Successful percutaneous transluminal coronary angiography and stenting | | of the proximal first diagonal branch of the left anterior descending | | artery using a 2.25 x 15-mm Xience Alpine drug-eluting stent in a | | T-bifurcation stenting technique with the left anterior descending. | | 8. Successful percutaneous transluminal coronary angiography and stenting | | of the mid to proximal left anterior descending artery using a 3.25 x | | 38-mm Xience Alpine drug-eluting stent postdilated using 3.25 and a 3.0 | | noncompliant balloons. | | 9. Successful kissing balloons of the bifurcation left anterior descending | | and first diagonal stents with 3.0 x 12-mm noncompliant balloon in the | | left anterior descending and a 2.0 x 8-mm noncompliant balloon in the | | diagonal stent. | | | | INDICATIONS | | [id number] myocardial infarction. The patient turned down by surgery | | given high the high risk for surgery. | | | | HISTORY OF PRESENT ILLNESS | | The patient is a 70-year-old male with a history of hypertension, | | hyperlipidemia, diabetes mellitus type 2, and end stage renal disease who | | was recently started on hemodialysis. He was admitted with non-ST elevation | | myocardial infarction. He was also found to have severe aortic stenosis, | | moderately to severely reduced left ventricular ejection fraction of 30% to | | 35%, and 3-vessel coronary artery disease. Cardiothoracic surgery was | | consulted for consideration of bypass surgery and aortic valve replacement. | | The patient was found to be at high risk for surgery. The patient's best | | option appeared to be percutaneous coronary intervention and transcatheter | | aortic valve replacement. Please refer to Dr. Dangelo's full diagnostic | | coronary artery angiogram report and consultation report. The patient was | | referred for percutaneous coronary intervention and FFR measurement of the | | mid left anterior descending artery. The procedure risks, benefits, and | | alternatives were discussed in detail with the patient and he agreed to | | proceed. | | | | DESCRIPTION OF PROCEDURE | | The patient was brought to the cardiac catheterization laboratory in the | | fasting state. After informed consent was obtained, the patient was prepped | | and draped in the usual sterile fashion. Lidocaine 2% was used for local | | anesthesia of the right groin. The right femoral artery was accessed using | | a micropuncture needle under fluoroscopic guidance. The femoral arteries | | were calcified with clear outline of the arteries. Subsequently, a 4-Filipino | | micropuncture sheath was put in place and angiogram of the right common | | femoral artery was done which showed mild disease of the right common | | femoral artery. However, there were very tortuous iliac arteries. | | Subsequently, I tried to advance a Versacore wire. Due to tortuosity in the | | iliac artery, it would not go through easily. I removed the Versacore wire | | and used a Wholey wire. Again, there was significant difficulty even with | | the Wholey wire. At this point, I decided to use a Glidewire, and the | | Glidewire was advanced. As the Glidewire was not advancing easily into the | | proximal common iliac artery, I used a 4-Filipino [place] catheter. The [place] | | catheter was advanced into the iliac artery. I wanted to evaluate the iliac | | artery at that point to rule out any dissection plane as there was | | difficulty advancing the wire. Subsequently, we did an angiogram using the | | [place] catheter. The angiogram showed some decreased blood flow, and I | | suspected there might be a dissection. At this point, i decided to go from | | the left common femoral artery. The [place] catheter was removed over the | | wire, then a 4-Filipino 11-cm sheath was placed in the right common femoral | | artery. Then, we checked pressures in the right common femoral artery using | | the sheath which showed good pressures. Subsequently, 2% lidocaine was used | | for anesthesia of the left groin. The left femoral artery was accessed | | using a micropuncture needle under fluoroscopic guidance. Again, there was | | good visualization of the outline of the common femoral artery with | | calcification. Subsequently, using a 4-Filipino micropuncture sheath, we took | | angiogram of the left common femoral artery again showing mild | | calcification and mild disease in the left common femoral artery and | | tortuosity of the iliac arteries, although the tortuosity appeared to be | | less than the right iliac artery. Subsequently, the Versacore wire was | | advanced into the aorta without much difficulty. A 4-Filipino, 11-cm sheath | | was placed into the left femoral artery. I proceeded with evaluation of | | both iliac arteries, especially to rule out any dissection in the right | | iliac artery. | | | | Subsequently, a 4-Filipino Omni Flush catheter was advanced into the distal | | abdominal aorta and angiogram of the distal abdominal aorta and bilateral | | common and external iliac arteries were obtained which showed no evidence | | of dissection or perforation in the right iliac artery or left iliac artery | | and showed severe tortuosity of the right iliac artery more than the left | | iliac artery. At this point, we then proceeded with our plan of FFR of the | | left anterior descending artery and, if significant, to proceed with | | intervention. Subsequently, given the tortuosity, I used a long sheath and, | | given the anticipated bifurcation lesion in the LAD and diagonal, I choose | | a 7 Filipino. Subsequently, a 7-Filipino, 35-cm sheath was advanced from the | | left common femoral artery into the abdominal aorta without much | | difficulty. The patient was given 5000 units of heparin. A guiding 7-Filipino | | XB LAD 3.5 guiding catheter was advanced and used for selective engagement | | of the left coronary system. A blood sample was drawn for ACT. | | Subsequently, left coronary angiogram was done in cranial view. ACT came | | back 102. Subsequently, we gave another 5000 units of heparin | | intravenously. This was a total of 10,000. Subsequently, an FFR wire was | | advanced and normalized in the left main and advanced to the distal left | | anterior descending artery after the long diseased segment in the mid LAD | | that actually started proximal to the first diagonal branch. The FFR | | immediately went down to 0.63 even without giving intravenous adenosine, | | which indicates a hemodynamically significant lesion. Angiogram was | | repeated. At that time, we sent a blood sample for another ACT. The FFR | | wire was advanced into the distal left anterior descending artery. Given | | the severe disease of the first diagonal branch, which appeared to be | | coming at a 90-degee angle from the left anterior descending artery, I felt | | the best option was to proceed with angioplasty, followed by stenting of | | the diagonal branch with T-stenting technique. The diagonal branch was a | | 2.0 to 2.5-mm vessel. The LAD appeared to be a 3.25-mm vessel. | | Subsequently, a BMW wire was advanced into the diagonal branch. A 2.0 x | | 8-mm compliant Emerge balloon was advanced and inflated in the proximal | | diagonal at 6 atmospheres for 19 seconds. The balloon was removed. To my | | surprise, ACT came back again at 104 despite the patient being given now a | | total of 10,000 units of heparin. At this point, we evaluated the venous | | access site, and it appeared that medications and fluids had been running | | appropriately. As the ACT did not change at all with 10,000 units of | | heparin, I felt that it would be best to have a central line just in case | | these medications and anticoagulants were not being delivered through the | | peripheral line. Subsequently, 2% lidocaine was used for anesthesia of the | | right groin. The right femoral vein was accessed using a micropuncture | | needle. A 4-Filipino sheath was placed into the right femoral vein without | | difficulty. Subsequently, extension tubing was attached to the 4-Filipino | | venous sheath. We gave 5000 units of heparin through the central line. | | Also, the patient was given a double bolus of Integrilin, followed by an | | Integrilin drip. At this point, we also changed delivery of the Integrilin | | drip through the central venous line. At this point, we waited for ACT | | before proceeding with stenting or further intervention. We waited 5 | | minutes after the third 5000 units of heparin. The ACT was checked and it | | was still low, so we gave another 5000 units of heparin which now came to a | | total of 20,000 units of heparin. ACT was checked using 2 different ACT | | machines and, again, the ACT, although improved, was still not therapeutic. | | It went up to 178. At this point, I felt there might be resistance to | | heparin with difficult anticoagulation in this patient. I decided to go | | with Angiomax. Subsequently, we gave the patient an Angiomax bolus, | | followed by a drip renally adjusted dose. We waited 5 minutes after the | | bolus and checked the ACT which went up to 362. At this point, we decided | | to proceed with intervention. | | | | Subsequently, a 2.25 x 15-mm Xience Alpine drug-eluting stent was advanced | | and deployed in the proximal diagonal, covering the lesion with the | | proximal end of the stent at the ostium of the diagonal branch; however, | | not protruding into the LAD. The stent was deployed at 10 atmospheres for | | 17 seconds. At this point, angiogram showed probably a plaque rupture at | | the proximal LAD just before the takeoff of the first diagonal probably | | initiated by advancing the stent. The was reduction of flow in the left | | anterior descending artery. The patient's blood pressure started to drop. | | At this point, I went quickly with intervention on the left anterior | | descending artery. A 3.0 x 30-mm compliant Emerge balloon was advanced and | | inflated in the mid left anterior descending artery and the proximal left | | anterior descending artery just proximal to the takeoff of the diagonal | | where there appeared to be a plaque rupture. The balloon was inflated at | | nominal atmospheres. The balloon was then advanced forward to cover the | | whole lesion and inflated again at 10 atmospheres for 23 seconds and 10 | | atmospheres for 12 seconds. Subsequently, a 3.25 x 38-mm Xience Alpine | | drug-eluting stent was advanced and, with some minor difficulty, I was able | | to advance the stent to cover the lesion distally and proximally. The stent | | was extending to the proximal LAD covering the lesion just before the | | takeoff of the first diagonal branch. The stent was deployed at 12 | | atmospheres for 20 seconds. There was difficulty pulling the stent balloon. | | With care, trying not to have the guide deeply engaged, we tried to pull | | the balloon. However, it was not going. I inflated the balloon at 4 | | atmospheres and then deflated, and with that we were able to pull the stent | | balloon. The patient's blood pressure was still dropping to the 80s and | | 90s. The patient was given 100 mcg of phenylephrine. Subsequently, repeat | | angiogram showed rastafari of flow in the left anterior descending | | artery. However, the diagonal branch became occluded with an occluded stent | | likely due to plaque shift. The stent did not appear to be really extending | | into the left anterior descending artery. Subsequently, I tried to quickly | | advance a BMW wire to cross into the diagonal branch. However, there was | | difficulty crossing into the diagonal stent. As there was a significant | | twist in the mid LAD stent, we decided to go with postdilation of the LAD | | to optimize the stent expansion first and to try to open the diagonal | | later. Subsequently, a 3.25 x 20-mm noncompliant Quantum balloon was | | advanced and we started inflation just distally at 20 atmospheres for 13 | | seconds with pulling backward and in overlapping fashion to the proximal | | part of the stent at 20 atmospheres for 12 seconds and 20 atmospheres for | | 19 seconds. There is a part in the mid part of the stent that still had a | | waist despite going to high pressures of 20. The balloon was then pulled, | | and there was difficulty pulling the balloon. The balloon was inflated at 4 | | atmospheres for 5 seconds, and then we were able to pull the balloon | | backward a little. Again, there was difficulty pulling the balloon. The | | balloon was advanced again forward with the balloon completely inside the | | stent and inflated at 12 atmospheres for 15 seconds. Eventually, we were | | able to pull the balloon out with care not to cause dissection in the left | | main as the guide tended to go deep. Repeat angiogram showed there was | | still a focal waist in the mid LAD after the first diagonal, and the first | | diagonal remained occluded. I went again with a shorter balloon at 3.25 x | | 12-mm noncompliant Quantum balloon, advanced at the area of the waist, and | | inflated at 20 atmospheres for 15 seconds, 20 atmospheres for 11 seconds, | | 20 atmospheres for 37 seconds, and 20 atmospheres for 28 seconds. Repeat | | angiogram again showed there was still some focal waist in the mid LAD | | within the stent. At this point, we went with a shorter balloon, a 32.5 x | | 8-mm noncompliant Quantum balloon, and advanced and inflated at the area of | | the waist at 20 atmospheres for 24 seconds, 20 atmospheres for 50 seconds, | | and 22 atmospheres for 25 seconds. With that, there was improvement in the | | waist. However, there was still some mild waist. We tried to pull the | | balloon. Again, there was difficulty pulling the balloon. We did | | double-negative pressure in the balloon, and then the balloon was inflated | | at 12 atmospheres for 12 seconds in the area of the waist. We were then | | able to pull the balloon. | | | | At this point, I proceed with a trial to open the first diagonal stent. I | | tried the BMW wire. However, it could not go through. Subsequently, a | | Whisper wire was advanced and initially advanced into the mid left anterior | | descending stent and then pulled back to assure placement within the LAD | | stent. With some difficulty, I was able to cross into the diagonal branch. | | Subsequently, a 2.0 x 8-mm noncompliant balloon was advanced and, without | | much difficulty, crossed over into the diagonal branch. The balloon was | | inflated at the ostium of the first diagonal branch partly in the diagonal | | stent and partly in the LAD stent at 12 atmospheres for 30 seconds. It was | | then advanced into the proximal diagonal branch within the stent for | | postdilation of the stent and inflated at 12 atmospheres for 20 seconds. | | Subsequently, the balloon was left in the ostium of the diagonal branch, | | partly in the diagonal branch and partly in the LAD stent. Another balloon, | | a 3.0 x 12-mm noncompliant Quantum balloon, was advanced over the wave wire | | in the LAD. Both balloons were placed in a kissing fashion with the | | proximal ends of the stents in the proximal part of the LAD stent, however, | | completely within the stent. Both kissing ballooning with both balloons | | were inflated at 12 atmospheres for 17 seconds. Then, both balloons were | | deflated. Subsequently, I advanced the LAD balloon, 3.0 x 12-mm | | noncompliant Quantum balloon, more distally at the area of the waist distal | | to the origin of the first diagonal branch and inflated at 14 atmospheres | | for 12 seconds, 22 atmospheres for 24 seconds, and with that the waist had | | resolved and the stent there appeared to have expanded well. Subsequently, | | we did another final kissing ballooning with a 2.0 x 8-mm noncompliant | | balloon in the diagonal and a 3.0 x 12-mm noncompliant balloon in the LAD | | stent. Both balloons were inflated at 12 atmospheres for 15 seconds. Both | | balloons were deflated. Both balloons were removed, and post-intervention | | angiogram then was obtained which showed excellent results with reduction | | of the degree of stenosis from 75% in the LAD down to 0% and from 80% in | | the diagonal branch down to 0% with NISSA 3 flow. Both stents appeared to be | | well expanded. No evidence of dissection or perforation. Final angiogram in | | a caudal view was obtained which, again, showed excellent results with no | | evidence of dissection or perforation, especially with special attention to | | the left main which showed no evidence of dissection. | | | | All catheters and guidewires were removed. The right femoral arterial | | sheath and right femoral venous sheath both were 4-Filipino, and they were | | secured in place with sutures. The left femoral 7-Filipino sheath was secured | | with sutures to be removed on the floor based on ACT. The patient had | | received multiple doses of Humberto-Synephrine during the intervention as blood | | pressure had dropped. However, at the end of the procedure blood pressure | | was stable at 92 systolic. Final ACT at the end of the procedure showed an | | ACT of 282. The patient was continued on Integrilin, and the Angiomax was | | stopped at the end of the procedure. The patient was also given a loading | | dose of ticagrelor 130 mg. | | | | The patient tolerated the procedure well without complications. | | | | TOTAL CONTRAST | | 278 mL of Isovue. Due to the complex procedure and the initial problems | | with access and suspicion for right iliac artery dissection with need for | | angiogram of the iliac arteries, in addition to the complex bifurcation | | lesion in the LAD we used 48 minutes of fluoroscopy time. | | | | ESTIMATED BLOOD LOSS | | Less than 50 mL. | | | | Overall, the patient tolerated the procedure well without complications. | | | | RESULTS | | Aortoiliac artery angiogram and common femoral artery angiograms. | | 1. The right and left common external iliac arteries were patent without | | obstructive disease. There were large vessels with severe tortuosity in | | the right more than the left, especially of the external iliac arteries. | | The internal iliac arteries were patent and appeared to have moderate | | disease distally bilaterally. | | 2. Mild disease of the right and left common femoral arteries with mild | | calcification. However, no obstructive disease. | | | | Left coronary artery angiogram. | | 1. The left main coronary artery trifurcates and gives rise to the left | | anterior descending, ramus intermedius, and left circumflex arteries. | | The left anterior descending artery is a short vessel without disease. | | 2. The left anterior descending artery is a large type 3 vessel that has | | diffuse calcification. There is a long, calcified, tubular lesion | | starting at the proximal left anterior descending artery just before the | | takeoff of the first diagonal branch and extending to the mid portion. | | Angiographically, it appears to be in the range of 75%. FFR measurement | | across this lesion is 0.63 indicating hemodynamically significant | | lesion. The first diagonal branch, which is a 2.0 to 2.5-mm vessel with | | severe disease proximally in the range of 80% to 90%. | | 3. The ramus intermedius is a small vessel without obstructive disease. | | 4. The left circumflex artery is a nondominant vessel that gives rise to a | | small, tiny first marginal branch, followed by a larger second marginal | | branch which appeared to be the main marginal branch. The mid left | | circumflex artery before the second marginal branch had moderate disease | | in the range of 80%. | | | | IMPRESSION | | 1. 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 | | 2. Successful percutaneous transluminal coronary angiography and stenting | | of the first diagonal branch of the left anterior descending artery | | using a 2.25 x 15-mm Xience Alpine drug-eluting stent in a T-stenting | | fashion with the left anterior descending stent. | | 3. Successful percutaneous transluminal coronary angiography and stenting | | of the mid left anterior descending extending to the proximal left | | anterior descending using a 3.25 x 38-mm Xience Alpine drug eluting | | stent postdilated using a 3.25 and 3.0 noncompliant Quantum balloons. | | 4. Successful kissing balloons of the diagonal and left anterior descending | | stents using a 3.0 x 12-mm noncompliant balloon in the left anterior | | descending stent and a 2.0 x 8-mm noncompliant balloon in the diagonal | | stent. | | | | PLAN | | 1. The patient will need to be on aspirin 81 mg for life. | | 2. The patient will need to be on Brilinta 90 mg twice a day for at least 1 | | year. The patient received a loading dose in the catheterization lab at | | the end of the procedure. | | 3. We will continue Integrilin at renally adjusted dose for 12 hours. | | 4. Continue carvedilol and atorvastatin. | | 5. The patient will need staged assessment and PCI of the right coronary | | artery. | | 6. After revascularization of the right coronary artery, the patient will | | be referred for TAVR evaluation as an outpatient. | | | | Read by LEYLA SWEET MD 03/10/2016 03:54 P | | | | | + + CV CARDIAC PROCEDURE (03/10/2016 2:25 PM PDT) + + | Specimen | + + | | + + + + + | Narrative | Performed At | + + + | | | | | | | DATE OF PROCEDURE March 03, 2016 PROCEDURES PERFORMED 1. | | | Conscious sedation. 2. Right common femoral artery angiogram, | | | followed by left common femoral artery angiogram. 3. Aortoiliac | | | artery angiogram. 4. Selective left and right common femoral artery | | | angiograms. 5. Selective left coronary artery angiogram. 6. | | | Fractional flow reserve measurement of the mid left anterior | | | descending artery with significant fractional flow reserve value of | | | 0.63. 7. Successful percutaneous transluminal coronary angiography | | | and stenting of the proximal first diagonal branch of the left | | | anterior descending artery using a 2.25 x 15-mm Xience Alpine | | | drug-eluting stent in a T-bifurcation stenting technique with the | | | left anterior descending. 8. Successful percutaneous transluminal | | | coronary angiography and stenting of the mid to proximal left | | | anterior descending artery using a 3.25 x 38-mm Xience Alpine | | | drug-eluting stent postdilated using 3.25 and a 3.0 noncompliant | | | balloons. 9. Successful kissing balloons of the bifurcation left | | | anterior descending and first diagonal stents with 3.0 x 12-mm | | | noncompliant balloon in the left anterior descending and a 2.0 x 8-mm | | | noncompliant balloon in the diagonal stent. INDICATIONS | | | [id number] myocardial infarction. The patient turned down by | | | surgery given high the high risk for surgery. HISTORY OF PRESENT | | | ILLNESS The patient is a 70-year-old male with a history of | | | hypertension, hyperlipidemia, diabetes mellitus type 2, and end stage | | | renal disease who was recently started on hemodialysis. He was | | | admitted with non-ST elevation myocardial infarction. He was also | | | found to have severe aortic stenosis, moderately to severely reduced | | | left ventricular ejection fraction of 30% to 35%, and 3-vessel | | | coronary artery disease. Cardiothoracic surgery was consulted for | | | consideration of bypass surgery and aortic valve replacement. The | | | patient was found to be at high risk for surgery. The patient's best | | | option appeared to be percutaneous coronary intervention and | | | transcatheter aortic valve replacement. Please refer to Dr. Dangelo's | | | full diagnostic coronary artery angiogram report and consultation | | | report. The patient was referred for percutaneous coronary | | | intervention and FFR measurement of the mid left anterior descending | | | artery. The procedure risks, benefits, and alternatives were | | | discussed in detail with the patient and he agreed to proceed. | | | DESCRIPTION OF PROCEDURE The patient was brought to the cardiac | | | catheterization laboratory in the fasting state. After informed | | | consent was obtained, the patient was prepped and draped in the usual | | | sterile fashion. Lidocaine 2% was used for local anesthesia of the | | | right groin. The right femoral artery was accessed using a | | | micropuncture needle under fluoroscopic guidance. The femoral arteries | | | were calcified with clear outline of the arteries. Subsequently, a | | | 4-Filipino micropuncture sheath was put in place and angiogram of the | | | right common femoral artery was done which showed mild disease of the | | | right common femoral artery. However, there were very tortuous iliac | | | arteries. Subsequently, I tried to advance a Versacore wire. Due to | | | tortuosity in the iliac artery, it would not go through easily. I | | | removed the Versacore wire and used a Wholey wire. Again, there was | | | significant difficulty even with the Wholey wire. At this point, I | | | decided to use a Glidewire, and the Glidewire was advanced. As the | | | Glidewire was not advancing easily into the proximal common iliac | | | artery, I used a 4-Filipino [place] catheter. The [place] catheter was | | | advanced into the iliac artery. I wanted to evaluate the iliac artery | | | at that point to rule out any dissection plane as there was | | | difficulty advancing the wire. Subsequently, we did an angiogram using | | | the [place] catheter. The angiogram showed some decreased blood flow, | | | and I suspected there might be a dissection. At this point, i decided | | | to go from the left common femoral artery. The [place] catheter was | | | removed over the wire, then a 4-Filipino 11-cm sheath was placed in the | | | right common femoral artery. Then, we checked pressures in the right | | | common femoral artery using the sheath which showed good pressures. | | | Subsequently, 2% lidocaine was used for anesthesia of the left groin. | | | The left femoral artery was accessed using a micropuncture needle | | | under fluoroscopic guidance. Again, there was good visualization of | | | the outline of the common femoral artery with calcification. | | | Subsequently, using a 4-Filipino micropuncture sheath, we took | | | angiogram of the left common femoral artery again showing mild | | | calcification and mild disease in the left common femoral artery and | | | tortuosity of the iliac arteries, although the tortuosity appeared to | | | be less than the right iliac artery. Subsequently, the Versacore wire | | | was advanced into the aorta without much difficulty. A 4-Filipino, | | | 11-cm sheath was placed into the left femoral artery. I proceeded | | | with evaluation of both iliac arteries, especially to rule out any | | | dissection in the right iliac artery. Subsequently, a 4-Filipino | | | Omni Flush catheter was advanced into the distal abdominal aorta and | | | angiogram of the distal abdominal aorta and bilateral common and | | | external iliac arteries were obtained which showed no evidence of | | | dissection or perforation in the right iliac artery or left iliac | | | artery and showed severe tortuosity of the right iliac artery more | | | than the left iliac artery. At this point, we then proceeded with our | | | plan of FFR of the left anterior descending artery and, if | | | significant, to proceed with intervention. Subsequently, given the | | | tortuosity, I used a long sheath and, given the anticipated | | | bifurcation lesion in the LAD and diagonal, I choose a 7 Filipino. | | | Subsequently, a 7-Filipino, 35-cm sheath was advanced from the left | | | common femoral artery into the abdominal aorta without much | | | difficulty. The patient was given 5000 units of heparin. A guiding | | | 7-Filipino XB LAD 3.5 guiding catheter was advanced and used for | | | selective engagement of the left coronary system. A blood sample was | | | drawn for ACT. Subsequently, left coronary angiogram was done in | | | cranial view. ACT came back 102. Subsequently, we gave another 5000 | | | units of heparin intravenously. This was a total of 10,000. | | | Subsequently, an FFR wire was advanced and normalized in the left | | | main and advanced to the distal left anterior descending artery after | | | the long diseased segment in the mid LAD that actually started | | | proximal to the first diagonal branch. The FFR immediately went down | | | to 0.63 even without giving intravenous adenosine, which indicates a | | | hemodynamically significant lesion. Angiogram was repeated. At that | | | time, we sent a blood sample for another ACT. The FFR wire was | | | advanced into the distal left anterior descending artery. Given the | | | severe disease of the first diagonal branch, which appeared to be | | | coming at a 90-degee angle from the left anterior descending artery, I | | | felt the best option was to proceed with angioplasty, followed by | | | stenting of the diagonal branch with T-stenting technique. The | | | diagonal branch was a 2.0 to 2.5-mm vessel. The LAD appeared to be a | | | 3.25-mm vessel. Subsequently, a BMW wire was advanced into the | | | diagonal branch. A 2.0 x 8-mm compliant Emerge balloon was advanced | | | and inflated in the proximal diagonal at 6 atmospheres for 19 | | | seconds. The balloon was removed. To my surprise, ACT came back again | | | at 104 despite the patient being given now a total of 10,000 units | | | of heparin. At this point, we evaluated the venous access site, and | | | it appeared that medications and fluids had been running | | | appropriately. As the ACT did not change at all with 10,000 units of | | | heparin, I felt that it would be best to have a central line just in | | | case these medications and anticoagulants were not being delivered | | | through the peripheral line. Subsequently, 2% lidocaine was used for | | | anesthesia of the right groin. The right femoral vein was accessed | | | using a micropuncture needle. A 4-Filipino sheath was placed into the | | | right femoral vein without difficulty. Subsequently, extension tubing | | | was attached to the 4-Filipino venous sheath. We gave 5000 units of | | | heparin through the central line. Also, the patient was given a | | | double bolus of Integrilin, followed by an Integrilin drip. At this | | | point, we also changed delivery of the Integrilin drip through the | | | central venous line. At this point, we waited for ACT before | | | proceeding with stenting or further intervention. We waited 5 minutes | | | after the third 5000 units of heparin. The ACT was checked and it | | | was still low, so we gave another 5000 units of heparin which now came | | | to a total of 20,000 units of heparin. ACT was checked using 2 | | | different ACT machines and, again, the ACT, although improved, was | | | still not therapeutic. It went up to 178. At this point, I felt there | | | might be resistance to heparin with difficult anticoagulation in | | | this patient. I decided to go with Angiomax. Subsequently, we gave | | | the patient an Angiomax bolus, followed by a drip renally adjusted | | | dose. We waited 5 minutes after the bolus and checked the ACT which | | | went up to 362. At this point, we decided to proceed with | | | intervention. Subsequently, a 2.25 x 15-mm Xience Alpine | | | drug-eluting stent was advanced and deployed in the proximal | | | diagonal, covering the lesion with the proximal end of the stent at | | | the ostium of the diagonal branch; however, not protruding into the | | | LAD. The stent was deployed at 10 atmospheres for 17 seconds. At this | | | point, angiogram showed probably a plaque rupture at the proximal | | | LAD just before the takeoff of the first diagonal probably initiated | | | by advancing the stent. The was reduction of flow in the left | | | anterior descending artery. The patient's blood pressure started to | | | drop. At this point, I went quickly with intervention on the left | | | anterior descending artery. A 3.0 x 30-mm compliant Emerge balloon | | | was advanced and inflated in the mid left anterior descending artery | | | and the proximal left anterior descending artery just proximal to the | | | takeoff of the diagonal where there appeared to be a plaque rupture. | | | The balloon was inflated at nominal atmospheres. The balloon was | | | then advanced forward to cover the whole lesion and inflated again at | | | 10 atmospheres for 23 seconds and 10 atmospheres for 12 seconds. | | | Subsequently, a 3.25 x 38-mm Xience Alpine drug-eluting stent was | | | advanced and, with some minor difficulty, I was able to advance the | | | stent to cover the lesion distally and proximally. The stent was | | | extending to the proximal LAD covering the lesion just before the | | | takeoff of the first diagonal branch. The stent was deployed at 12 | | | atmospheres for 20 seconds. There was difficulty pulling the stent | | | balloon. With care, trying not to have the guide deeply engaged, we | | | tried to pull the balloon. However, it was not going. I inflated the | | | balloon at 4 atmospheres and then deflated, and with that we were | | | able to pull the stent balloon. The patient's blood pressure was | | | still dropping to the 80s and 90s. The patient was given 100 mcg of | | | phenylephrine. Subsequently, repeat angiogram showed rastafari of | | | flow in the left anterior descending artery. However, the diagonal | | | branch became occluded with an occluded stent likely due to plaque | | | shift. The stent did not appear to be really extending into the left | | | anterior descending artery. Subsequently, I tried to quickly advance | | | a BMW wire to cross into the diagonal branch. However, there was | | | difficulty crossing into the diagonal stent. As there was a | | | significant twist in the mid LAD stent, we decided to go with | | | postdilation of the LAD to optimize the stent expansion first and to | | | try to open the diagonal later. Subsequently, a 3.25 x 20-mm | | | noncompliant Quantum balloon was advanced and we started inflation | | | just distally at 20 atmospheres for 13 seconds with pulling backward | | | and in overlapping fashion to the proximal part of the stent at 20 | | | atmospheres for 12 seconds and 20 atmospheres for 19 seconds. There | | | is a part in the mid part of the stent that still had a waist despite | | | going to high pressures of 20. The balloon was then pulled, and | | | there was difficulty pulling the balloon. The balloon was inflated at | | | 4 atmospheres for 5 seconds, and then we were able to pull the | | | balloon backward a little. Again, there was difficulty pulling the | | | balloon. The balloon was advanced again forward with the balloon | | | completely inside the stent and inflated at 12 atmospheres for 15 | | | seconds. Eventually, we were able to pull the balloon out with care | | | not to cause dissection in the left main as the guide tended to go | | | deep. Repeat angiogram showed there was still a focal waist in the | | | mid LAD after the first diagonal, and the first diagonal remained | | | occluded. I went again with a shorter balloon at 3.25 x 12-mm | | | noncompliant Quantum balloon, advanced at the area of the waist, and | | | inflated at 20 atmospheres for 15 seconds, 20 atmospheres for 11 | | | seconds, 20 atmospheres for 37 seconds, and 20 atmospheres for 28 | | | seconds. Repeat angiogram again showed there was still some focal | | | waist in the mid LAD within the stent. At this point, we went with a | | | shorter balloon, a 32.5 x 8-mm noncompliant Quantum balloon, and | | | advanced and inflated at the area of the waist at 20 atmospheres for | | | 24 seconds, 20 atmospheres for 50 seconds, and 22 atmospheres for 25 | | | seconds. With that, there was improvement in the waist. However, | | | there was still some mild waist. We tried to pull the balloon. Again, | | | there was difficulty pulling the balloon. We did double-negative | | | pressure in the balloon, and then the balloon was inflated at 12 | | | atmospheres for 12 seconds in the area of the waist. We were then | | | able to pull the balloon. At this point, I proceed with a trial to | | | open the first diagonal stent. I tried the BMW wire. However, it | | | could not go through. Subsequently, a Whisper wire was advanced and | | | initially advanced into the mid left anterior descending stent and | | | then pulled back to assure placement within the LAD stent. With some | | | difficulty, I was able to cross into the diagonal branch. | | | Subsequently, a 2.0 x 8-mm noncompliant balloon was advanced and, | | | without much difficulty, crossed over into the diagonal branch. The | | | balloon was inflated at the ostium of the first diagonal branch | | | partly in the diagonal stent and partly in the LAD stent at 12 | | | atmospheres for 30 seconds. It was then advanced into the proximal | | | diagonal branch within the stent for postdilation of the stent and | | | inflated at 12 atmospheres for 20 seconds. Subsequently, the balloon | | | was left in the ostium of the diagonal branch, partly in the diagonal | | | branch and partly in the LAD stent. Another balloon, a 3.0 x 12-mm | | | noncompliant Quantum balloon, was advanced over the wave wire in the | | | LAD. Both balloons were placed in a kissing fashion with the | | | proximal ends of the stents in the proximal part of the LAD stent, | | | however, completely within the stent. Both kissing ballooning with | | | both balloons were inflated at 12 atmospheres for 17 seconds. Then, | | | both balloons were deflated. Subsequently, I advanced the LAD | | | balloon, 3.0 x 12-mm noncompliant Quantum balloon, more distally at | | | the area of the waist distal to the origin of the first diagonal | | | branch and inflated at 14 atmospheres for 12 seconds, 22 atmospheres | | | for 24 seconds, and with that the waist had resolved and the stent | | | there appeared to have expanded well. Subsequently, we did another | | | final kissing ballooning with a 2.0 x 8-mm noncompliant balloon in | | | the diagonal and a 3.0 x 12-mm noncompliant balloon in the LAD stent. | | | Both balloons were inflated at 12 atmospheres for 15 seconds. Both | | | balloons were deflated. Both balloons were removed, and | | | post-intervention angiogram then was obtained which showed excellent | | | results with reduction of the degree of stenosis from 75% in the LAD | | | down to 0% and from 80% in the diagonal branch down to 0% with NISSA 3 | | | flow. Both stents appeared to be well expanded. No evidence of | | | dissection or perforation. Final angiogram in a caudal view was | | | obtained which, again, showed excellent results with no evidence of | | | dissection or perforation, especially with special attention to the | | | left main which showed no evidence of dissection. All catheters | | | and guidewires were removed. The right femoral arterial sheath and | | | right femoral venous sheath both were 4-Filipino, and they were secured | | | in place with sutures. The left femoral 7-Filipino sheath was secured | | | with sutures to be removed on the floor based on ACT. The patient had | | | received multiple doses of Humberto-Synephrine during the intervention as | | | blood pressure had dropped. However, at the end of the procedure | | | blood pressure was stable at 92 systolic. Final ACT at the end of the | | | procedure showed an ACT of 282. The patient was continued on | | | Integrilin, and the Angiomax was stopped at the end of the procedure. | | | The patient was also given a loading dose of ticagrelor 130 mg. | | | The patient tolerated the procedure well without complications. | | | TOTAL CONTRAST 278 mL of Isovue. Due to the complex procedure and the | | | initial problems with access and suspicion for right iliac artery | | | dissection with need for angiogram of the iliac arteries, in addition | | | to the complex bifurcation lesion in the LAD we used 48 minutes of | | | fluoroscopy time. ESTIMATED BLOOD LOSS Less than 50 mL. | | | Overall, the patient tolerated the procedure well without | | | complications. RESULTS Aortoiliac artery angiogram and common | | | femoral artery angiograms. 1. The right and left common external | | | iliac arteries were patent without obstructive disease. There were | | | large vessels with severe tortuosity in the right more than the left, | | | especially of the external iliac arteries. The internal iliac | | | arteries were patent and appeared to have moderate disease distally | | | bilaterally. 2. Mild disease of the right and left common femoral | | | arteries with mild calcification. However, no obstructive disease. | | | Left coronary artery angiogram. 1. The left main coronary artery | | | trifurcates and gives rise to the left anterior descending, ramus | | | intermedius, and left circumflex arteries. The left anterior | | | descending artery is a short vessel without disease. 2. The left | | | anterior descending artery is a large type 3 vessel that has diffuse | | | calcification. There is a long, calcified, tubular lesion starting at | | | the proximal left anterior descending artery just before the takeoff | | | of the first diagonal branch and extending to the mid portion. | | | Angiographically, it appears to be in the range of 75%. FFR | | | measurement across this lesion is 0.63 indicating hemodynamically | | | significant lesion. The first diagonal branch, which is a 2.0 to | | | 2.5-mm vessel with severe disease proximally in the range of 80% to | | | 90%. 3. The ramus intermedius is a small vessel without obstructive | | | disease. 4. The left circumflex artery is a nondominant vessel that | | | gives rise to a small, tiny first marginal branch, followed by a | | | larger second marginal branch which appeared to be the main marginal | | | branch. The mid left circumflex artery before the second marginal | | | branch had moderate disease in the range of 80%. IMPRESSION 1. | | | Severe mid left anterior descending artery and proximal first diagonal | | | branch disease and moderate disease of the mid left circumflex | | | artery. 2. Successful percutaneous transluminal coronary angiography | | | and stenting of the first diagonal branch of the left anterior | | | descending artery using a 2.25 x 15-mm Xience Alpine drug-eluting | | | stent in a T-stenting fashion with the left anterior descending | | | stent. 3. Successful percutaneous transluminal coronary angiography | | | and stenting of the mid left anterior descending extending to the | | | proximal left anterior descending using a 3.25 x 38-mm Xience Alpine | | | drug eluting stent postdilated using a 3.25 and 3.0 noncompliant | | | Quantum balloons. 4. Successful kissing balloons of the diagonal and | | | left anterior descending stents using a 3.0 x 12-mm noncompliant | | | balloon in the left anterior descending stent and a 2.0 x 8-mm | | | noncompliant balloon in the diagonal stent. PLAN 1. The patient | | | will need to be on aspirin 81 mg for life. 2. The patient will need | | | to be on Brilinta 90 mg twice a day for at least 1 year. The patient | | | received a loading dose in the catheterization lab at the end of the | | | procedure. 3. We will continue Integrilin at renally adjusted dose | | | for 12 hours. 4. Continue carvedilol and atorvastatin. 5. The | | | patient will need staged assessment and PCI of the right coronary | | | artery. 6. After revascularization of the right coronary artery, the | | | patient will be referred for TAVR evaluation as an outpatient. | | | Read by LEYLA SWEET MD 03/10/2016 03:54 P Electronically | | | signed by Leyla Sweet MD on 03/22/2016 5:08 PM | | + + + + + | Procedure Note | + + | Elmo Rubio Conversion - 01/27/2019 2:59 PM PDT | | | | | | DATE OF PROCEDURE | | March 03, 2016 | | | | PROCEDURES PERFORMED | | 1. Conscious sedation. | | 2. Right common femoral artery angiogram, followed by left common femoral | | artery angiogram. | | 3. Aortoiliac artery angiogram. | | 4. Selective left and right common femoral artery angiograms. | | 5. Selective left coronary artery angiogram. | | 6. Fractional flow reserve measurement of the mid left anterior descending | | artery with significant fractional flow reserve value of 0.63. | | 7. Successful percutaneous transluminal coronary angiography and stenting | | of the proximal first diagonal branch of the left anterior descending | | artery using a 2.25 x 15-mm Xience Alpine drug-eluting stent in a | | T-bifurcation stenting technique with the left anterior descending. | | 8. Successful percutaneous transluminal coronary angiography and stenting | | of the mid to proximal left anterior descending artery using a 3.25 x | | 38-mm Xience Alpine drug-eluting stent postdilated using 3.25 and a 3.0 | | noncompliant balloons. | | 9. Successful kissing balloons of the bifurcation left anterior descending | | and first diagonal stents with 3.0 x 12-mm noncompliant balloon in the | | left anterior descending and a 2.0 x 8-mm noncompliant balloon in the | | diagonal stent. | | | | INDICATIONS | | [id number] myocardial infarction. The patient turned down by surgery | | given high the high risk for surgery. | | | | HISTORY OF PRESENT ILLNESS | | The patient is a 70-year-old male with a history of hypertension, | | hyperlipidemia, diabetes mellitus type 2, and end stage renal disease who | | was recently started on hemodialysis. He was admitted with non-ST elevation | | myocardial infarction. He was also found to have severe aortic stenosis, | | moderately to severely reduced left ventricular ejection fraction of 30% to | | 35%, and 3-vessel coronary artery disease. Cardiothoracic surgery was | | consulted for consideration of bypass surgery and aortic valve replacement. | | The patient was found to be at high risk for surgery. The patient's best | | option appeared to be percutaneous coronary intervention and transcatheter | | aortic valve replacement. Please refer to Dr. Dangelo's full diagnostic | | coronary artery angiogram report and consultation report. The patient was | | referred for percutaneous coronary intervention and FFR measurement of the | | mid left anterior descending artery. The procedure risks, benefits, and | | alternatives were discussed in detail with the patient and he agreed to | | proceed. | | | | DESCRIPTION OF PROCEDURE | | The patient was brought to the cardiac catheterization laboratory in the | | fasting state. After informed consent was obtained, the patient was prepped | | and draped in the usual sterile fashion. Lidocaine 2% was used for local | | anesthesia of the right groin. The right femoral artery was accessed using | | a micropuncture needle under fluoroscopic guidance. The femoral arteries | | were calcified with clear outline of the arteries. Subsequently, a 4-Filipino | | micropuncture sheath was put in place and angiogram of the right common | | femoral artery was done which showed mild disease of the right common | | femoral artery. However, there were very tortuous iliac arteries. | | Subsequently, I tried to advance a Versacore wire. Due to tortuosity in the | | iliac artery, it would not go through easily. I removed the Versacore wire | | and used a Wholey wire. Again, there was significant difficulty even with | | the Wholey wire. At this point, I decided to use a Glidewire, and the | | Glidewire was advanced. As the Glidewire was not advancing easily into the | | proximal common iliac artery, I used a 4-Filipino Whitesboro catheter. The [place] | | catheter was advanced into the iliac artery. I wanted to evaluate the iliac | | artery at that point to rule out any dissection plane as there was | | difficulty advancing the wire. Subsequently, we did an angiogram using the | | [place] catheter. The angiogram showed some decreased blood flow, and I | | suspected there might be a dissection. At this point, i decided to go from | | the left common femoral artery. The [place] catheter was removed over the | | wire, then a 4-Filipino 11-cm sheath was placed in the right common femoral | | artery. Then, we checked pressures in the right common femoral artery using | | the sheath which showed good pressures. Subsequently, 2% lidocaine was used | | for anesthesia of the left groin. The left femoral artery was accessed | | using a micropuncture needle under fluoroscopic guidance. Again, there was | | good visualization of the outline of the common femoral artery with | | calcification. Subsequently, using a 4-Filipino micropuncture sheath, we took | | angiogram of the left common femoral artery again showing mild | | calcification and mild disease in the left common femoral artery and | | tortuosity of the iliac arteries, although the tortuosity appeared to be | | less than the right iliac artery. Subsequently, the Versacore wire was | | advanced into the aorta without much difficulty. A 4-Filipino, 11-cm sheath | | was placed into the left femoral artery. I proceeded with evaluation of | | both iliac arteries, especially to rule out any dissection in the right | | iliac artery. | | | | Subsequently, a 4-Filipino Omni Flush catheter was advanced into the distal | | abdominal aorta and angiogram of the distal abdominal aorta and bilateral | | common and external iliac arteries were obtained which showed no evidence | | of dissection or perforation in the right iliac artery or left iliac artery | | and showed severe tortuosity of the right iliac artery more than the left | | iliac artery. At this point, we then proceeded with our plan of FFR of the | | left anterior descending artery and, if significant, to proceed with | | intervention. Subsequently, given the tortuosity, I used a long sheath and, | | given the anticipated bifurcation lesion in the LAD and diagonal, I choose | | a 7 Filipino. Subsequently, a 7-Filipino, 35-cm sheath was advanced from the | | left common femoral artery into the abdominal aorta without much | | difficulty. The patient was given 5000 units of heparin. A guiding 7-Filipino | | XB LAD 3.5 guiding catheter was advanced and used for selective engagement | | of the left coronary system. A blood sample was drawn for ACT. | | Subsequently, left coronary angiogram was done in cranial view. ACT came | | back 102. Subsequently, we gave another 5000 units of heparin | | intravenously. This was a total of 10,000. Subsequently, an FFR wire was | | advanced and normalized in the left main and advanced to the distal left | | anterior descending artery after the long diseased segment in the mid LAD | | that actually started proximal to the first diagonal branch. The FFR | | immediately went down to 0.63 even without giving intravenous adenosine, | | which indicates a hemodynamically significant lesion. Angiogram was | | repeated. At that time, we sent a blood sample for another ACT. The FFR | | wire was advanced into the distal left anterior descending artery. Given | | the severe disease of the first diagonal branch, which appeared to be | | coming at a 90-degee angle from the left anterior descending artery, I felt | | the best option was to proceed with angioplasty, followed by stenting of | | the diagonal branch with T-stenting technique. The diagonal branch was a | | 2.0 to 2.5-mm vessel. The LAD appeared to be a 3.25-mm vessel. | | Subsequently, a BMW wire was advanced into the diagonal branch. A 2.0 x | | 8-mm compliant Emerge balloon was advanced and inflated in the proximal | | diagonal at 6 atmospheres for 19 seconds. The balloon was removed. To my | | surprise, ACT came back again at 104 despite the patient being given now a | | total of 10,000 units of heparin. At this point, we evaluated the venous | | access site, and it appeared that medications and fluids had been running | | appropriately. As the ACT did not change at all with 10,000 units of | | heparin, I felt that it would be best to have a central line just in case | | these medications and anticoagulants were not being delivered through the | | peripheral line. Subsequently, 2% lidocaine was used for anesthesia of the | | right groin. The right femoral vein was accessed using a micropuncture | | needle. A 4-Filipino sheath was placed into the right femoral vein without | | difficulty. Subsequently, extension tubing was attached to the 4-Filipino | | venous sheath. We gave 5000 units of heparin through the central line. | | Also, the patient was given a double bolus of Integrilin, followed by an | | Integrilin drip. At this point, we also changed delivery of the Integrilin | | drip through the central venous line. At this point, we waited for ACT | | before proceeding with stenting or further intervention. We waited 5 | | minutes after the third 5000 units of heparin. The ACT was checked and it | | was still low, so we gave another 5000 units of heparin which now came to a | | total of 20,000 units of heparin. ACT was checked using 2 different ACT | | machines and, again, the ACT, although improved, was still not therapeutic. | | It went up to 178. At this point, I felt there might be resistance to | | heparin with difficult anticoagulation in this patient. I decided to go | | with Angiomax. Subsequently, we gave the patient an Angiomax bolus, | | followed by a drip renally adjusted dose. We waited 5 minutes after the | | bolus and checked the ACT which went up to 362. At this point, we decided | | to proceed with intervention. | | | | Subsequently, a 2.25 x 15-mm Xience Alpine drug-eluting stent was advanced | | and deployed in the proximal diagonal, covering the lesion with the | | proximal end of the stent at the ostium of the diagonal branch; however, | | not protruding into the LAD. The stent was deployed at 10 atmospheres for | | 17 seconds. At this point, angiogram showed probably a plaque rupture at | | the proximal LAD just before the takeoff of the first diagonal probably | | initiated by advancing the stent. The was reduction of flow in the left | | anterior descending artery. The patient's blood pressure started to drop. | | At this point, I went quickly with intervention on the left anterior | | descending artery. A 3.0 x 30-mm compliant Emerge balloon was advanced and | | inflated in the mid left anterior descending artery and the proximal left | | anterior descending artery just proximal to the takeoff of the diagonal | | where there appeared to be a plaque rupture. The balloon was inflated at | | nominal atmospheres. The balloon was then advanced forward to cover the | | whole lesion and inflated again at 10 atmospheres for 23 seconds and 10 | | atmospheres for 12 seconds. Subsequently, a 3.25 x 38-mm Xience Alpine | | drug-eluting stent was advanced and, with some minor difficulty, I was able | | to advance the stent to cover the lesion distally and proximally. The stent | | was extending to the proximal LAD covering the lesion just before the | | takeoff of the first diagonal branch. The stent was deployed at 12 | | atmospheres for 20 seconds. There was difficulty pulling the stent balloon. | | With care, trying not to have the guide deeply engaged, we tried to pull | | the balloon. However, it was not going. I inflated the balloon at 4 | | atmospheres and then deflated, and with that we were able to pull the stent | | balloon. The patient's blood pressure was still dropping to the 80s and | | 90s. The patient was given 100 mcg of phenylephrine. Subsequently, repeat | | angiogram showed rastafari of flow in the left anterior descending | | artery. However, the diagonal branch became occluded with an occluded stent | | likely due to plaque shift. The stent did not appear to be really extending | | into the left anterior descending artery. Subsequently, I tried to quickly | | advance a BMW wire to cross into the diagonal branch. However, there was | | difficulty crossing into the diagonal stent. As there was a significant | | twist in the mid LAD stent, we decided to go with postdilation of the LAD | | to optimize the stent expansion first and to try to open the diagonal | | later. Subsequently, a 3.25 x 20-mm noncompliant Quantum balloon was | | advanced and we started inflation just distally at 20 atmospheres for 13 | | seconds with pulling backward and in overlapping fashion to the proximal | | part of the stent at 20 atmospheres for 12 seconds and 20 atmospheres for | | 19 seconds. There is a part in the mid part of the stent that still had a | | waist despite going to high pressures of 20. The balloon was then pulled, | | and there was difficulty pulling the balloon. The balloon was inflated at 4 | | atmospheres for 5 seconds, and then we were able to pull the balloon | | backward a little. Again, there was difficulty pulling the balloon. The | | balloon was advanced again forward with the balloon completely inside the | | stent and inflated at 12 atmospheres for 15 seconds. Eventually, we were | | able to pull the balloon out with care not to cause dissection in the left | | main as the guide tended to go deep. Repeat angiogram showed there was | | still a focal waist in the mid LAD after the first diagonal, and the first | | diagonal remained occluded. I went again with a shorter balloon at 3.25 x | | 12-mm noncompliant Quantum balloon, advanced at the area of the waist, and | | inflated at 20 atmospheres for 15 seconds, 20 atmospheres for 11 seconds, | | 20 atmospheres for 37 seconds, and 20 atmospheres for 28 seconds. Repeat | | angiogram again showed there was still some focal waist in the mid LAD | | within the stent. At this point, we went with a shorter balloon, a 32.5 x | | 8-mm noncompliant Quantum balloon, and advanced and inflated at the area of | | the waist at 20 atmospheres for 24 seconds, 20 atmospheres for 50 seconds, | | and 22 atmospheres for 25 seconds. With that, there was improvement in the | | waist. However, there was still some mild waist. We tried to pull the | | balloon. Again, there was difficulty pulling the balloon. We did | | double-negative pressure in the balloon, and then the balloon was inflated | | at 12 atmospheres for 12 seconds in the area of the waist. We were then | | able to pull the balloon. | | | | At this point, I proceed with a trial to open the first diagonal stent. I | | tried the BMW wire. However, it could not go through. Subsequently, a | | Whisper wire was advanced and initially advanced into the mid left anterior | | descending stent and then pulled back to assure placement within the LAD | | stent. With some difficulty, I was able to cross into the diagonal branch. | | Subsequently, a 2.0 x 8-mm noncompliant balloon was advanced and, without | | much difficulty, crossed over into the diagonal branch. The balloon was | | inflated at the ostium of the first diagonal branch partly in the diagonal | | stent and partly in the LAD stent at 12 atmospheres for 30 seconds. It was | | then advanced into the proximal diagonal branch within the stent for | | postdilation of the stent and inflated at 12 atmospheres for 20 seconds. | | Subsequently, the balloon was left in the ostium of the diagonal branch, | | partly in the diagonal branch and partly in the LAD stent. Another balloon, | | a 3.0 x 12-mm noncompliant Quantum balloon, was advanced over the wave wire | | in the LAD. Both balloons were placed in a kissing fashion with the | | proximal ends of the stents in the proximal part of the LAD stent, however, | | completely within the stent. Both kissing ballooning with both balloons | | were inflated at 12 atmospheres for 17 seconds. Then, both balloons were | | deflated. Subsequently, I advanced the LAD balloon, 3.0 x 12-mm | | noncompliant Quantum balloon, more distally at the area of the waist distal | | to the origin of the first diagonal branch and inflated at 14 atmospheres | | for 12 seconds, 22 atmospheres for 24 seconds, and with that the waist had | | resolved and the stent there appeared to have expanded well. Subsequently, | | we did another final kissing ballooning with a 2.0 x 8-mm noncompliant | | balloon in the diagonal and a 3.0 x 12-mm noncompliant balloon in the LAD | | stent. Both balloons were inflated at 12 atmospheres for 15 seconds. Both | | balloons were deflated. Both balloons were removed, and post-intervention | | angiogram then was obtained which showed excellent results with reduction | | of the degree of stenosis from 75% in the LAD down to 0% and from 80% in | | the diagonal branch down to 0% with NISSA 3 flow. Both stents appeared to be | | well expanded. No evidence of dissection or perforation. Final angiogram in | | a caudal view was obtained which, again, showed excellent results with no | | evidence of dissection or perforation, especially with special attention to | | the left main which showed no evidence of dissection. | | | | All catheters and guidewires were removed. The right femoral arterial | | sheath and right femoral venous sheath both were 4-Filipino, and they were | | secured in place with sutures. The left femoral 7-Filipino sheath was secured | | with sutures to be removed on the floor based on ACT. The patient had | | received multiple doses of Humberto-Synephrine during the intervention as blood | | pressure had dropped. However, at the end of the procedure blood pressure | | was stable at 92 systolic. Final ACT at the end of the procedure showed an | | ACT of 282. The patient was continued on Integrilin, and the Angiomax was | | stopped at the end of the procedure. The patient was also given a loading | | dose of ticagrelor 130 mg. | | | | The patient tolerated the procedure well without complications. | | | | TOTAL CONTRAST | | 278 mL of Isovue. Due to the complex procedure and the initial problems | | with access and suspicion for right iliac artery dissection with need for | | angiogram of the iliac arteries, in addition to the complex bifurcation | | lesion in the LAD we used 48 minutes of fluoroscopy time. | | | | ESTIMATED BLOOD LOSS | | Less than 50 mL. | | | | Overall, the patient tolerated the procedure well without complications. | | | | RESULTS | | Aortoiliac artery angiogram and common femoral artery angiograms. | | 1. The right and left common external iliac arteries were patent without | | obstructive disease. There were large vessels with severe tortuosity in | | the right more than the left, especially of the external iliac arteries. | | The internal iliac arteries were patent and appeared to have moderate | | disease distally bilaterally. | | 2. Mild disease of the right and left common femoral arteries with mild | | calcification. However, no obstructive disease. | | | | Left coronary artery angiogram. | | 1. The left main coronary artery trifurcates and gives rise to the left | | anterior descending, ramus intermedius, and left circumflex arteries. | | The left anterior descending artery is a short vessel without disease. | | 2. The left anterior descending artery is a large type 3 vessel that has | | diffuse calcification. There is a long, calcified, tubular lesion | | starting at the proximal left anterior descending artery just before the | | takeoff of the first diagonal branch and extending to the mid portion. | | Angiographically, it appears to be in the range of 75%. FFR measurement | | across this lesion is 0.63 indicating hemodynamically significant | | lesion. The first diagonal branch, which is a 2.0 to 2.5-mm vessel with | | severe disease proximally in the range of 80% to 90%. | | 3. The ramus intermedius is a small vessel without obstructive disease. | | 4. The left circumflex artery is a nondominant vessel that gives rise to a | | small, tiny first marginal branch, followed by a larger second marginal | | branch which appeared to be the main marginal branch. The mid left | | circumflex artery before the second marginal branch had moderate disease | | in the range of 80%. | | | | IMPRESSION | | 1. 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 | | 2. Successful percutaneous transluminal coronary angiography and stenting | | of the first diagonal branch of the left anterior descending artery | | using a 2.25 x 15-mm Xience Alpine drug-eluting stent in a T-stenting | | fashion with the left anterior descending stent. | | 3. Successful percutaneous transluminal coronary angiography and stenting | | of the mid left anterior descending extending to the proximal left | | anterior descending using a 3.25 x 38-mm Xience Alpine drug eluting | | stent postdilated using a 3.25 and 3.0 noncompliant Quantum balloons. | | 4. Successful kissing balloons of the diagonal and left anterior descending | | stents using a 3.0 x 12-mm noncompliant balloon in the left anterior | | descending stent and a 2.0 x 8-mm noncompliant balloon in the diagonal | | stent. | | | | PLAN | | 1. The patient will need to be on aspirin 81 mg for life. | | 2. The patient will need to be on Brilinta 90 mg twice a day for at least 1 | | year. The patient received a loading dose in the catheterization lab at | | the end of the procedure. | | 3. We will continue Integrilin at renally adjusted dose for 12 hours. | | 4. Continue carvedilol and atorvastatin. | | 5. The patient will need staged assessment and PCI of the right coronary | | artery. | | 6. After revascularization of the right coronary artery, the patient will | | be referred for TAVR evaluation as an outpatient. | | | | Read by LEYLA SWEET MD 03/10/2016 03:54 P | | | | | + + Activated clotting time (03/10/2016 2:06 PM PDT) + + + + + + | Component | Value | Ref Range | Performed | Pathologist | | | | | At | Signature | + + + + + + | Activated | 282 (H)Comment: Testing | 74 - 137 | EXTERNAL | | | Clotting | [place] [facility] [place] | seconds | LAB | | | time, POC | [address];[place], [place] | | | | | | [id number] | | | | + + + + + + + + | Specimen | + + | | + + + +---------+ + + | Performing | Address | City/State/Zipcode | Phone Number | | Organization | | | | + +---------+ + + | EXTERNAL LAB | | | | + +---------+ + + Activated clotting time (03/10/2016 12:32 PM PDT) + + + + + + | Component | Value | Ref Range | Performed | Pathologist | | | | | At | Signature | + + + + + + | Activated | 362 (H)Comment: Testing | 74 - 137 | EXTERNAL | | | Clotting | performed [place] [facility] [place] | seconds | LAB | | | time, POC | [address];[place], [place] | | | | | | [phone] | | | | + + + + + + + + | Specimen | + + | | + + + +---------+ + + | Performing | Address | City/State/Zipcode | Phone Number | | Organization | | | | + +---------+ + + | EXTERNAL LAB | | | | + +---------+ + + Activated clotting time (03/10/2016 12:15 PM PDT) + + + + + + | Component | Value | Ref Range | Performed | Pathologist | | | | | At | Signature | + + + + + + | Activated | 171 (H)Comment: Testing | 74 - 137 | EXTERNAL | | | Clotting | performed [place] [facility] [place] | seconds | LAB | | | time, POC | [address];[place] | | | | | | [phone] | | | | + + + + + + + + | Specimen | + + | | + + + +---------+ + + | Performing | Address | City/State/Zipcode | Phone Number | | Organization | | | | + +---------+ + + | EXTERNAL LAB | | | | + +---------+ + + Activated clotting time (03/10/2016 12:14 PM PDT) + + + + + + | Component | Value | Ref Range | Performed | Pathologist | | | | | At | Signature | + + + + + + | Activated | 178 (H)Comment: Testing | 74 - 137 | EXTERNAL | | | Clotting | performed at [facility] [place] | seconds | LAB | | | time, POC | [address];[place] | | | | | | [phone] | | | | + + + + + + + + | Specimen | + + | | + + + +---------+ + + | Performing | Address | City/State/Zipcode | Phone Number | | Organization | | | | + +---------+ + + | EXTERNAL LAB | | | | + +---------+ + + Activated clotting time (03/10/2016 12:00 PM PDT) + + + + + + | Component | Value | Ref Range | Performed | Pathologist | | | | | At | Signature | + + + + + + | Activated | 140 (H)Comment: Testing | 74 - 137 | EXTERNAL | | | Clotting | performed at [facility] [place] | seconds | LAB | | | time, POC | [address];[place] | | | | | | [phone] | | | | + + + + + + + + | Specimen | + + | | + + + +---------+ + + | Performing | Address | City/State/Zipcode | Phone Number | | Organization | | | | + +---------+ + + | EXTERNAL LAB | | | | + +---------+ + + Activated clotting time (03/10/2016 11:39 AM PDT) + + + + + + | Component | Value | Ref Range | Performed | Pathologist | | | | | At | Signature | + + + + + + | Activated | 104Comment: Testing | 74 - 137 | EXTERNAL | | | Clotting | performed at [facility] [place] | seconds | LAB | | | time, POC | [address];[place], [place] | | | | | | [address] | | | | + + + + + + + + | Specimen | + + | | + + + +---------+ + + | Performing | Address | City/State/Zipcode | Phone Number | | Organization | | | | + +---------+ + + | EXTERNAL LAB | | | | + +---------+ + + Activated clotting time (03/10/2016 11:33 AM PDT) + + + + + + | Component | Value | Ref Range | Performed | Pathologist | | | | | At | Signature | + + + + + + | Activated | 104Comment: Testing | 74 - 137 | EXTERNAL | | | Clotting | performed at [facility] | seconds | LAB | | | time, POC | [address];[place], [place] | | | | | | [address] | | | | + + + + + + + + | Specimen | + + | | + + + +---------+ + + | Performing | Address | City/State/Zipcode | Phone Number | | Organization | | | | + +---------+ + + | EXTERNAL LAB | | | | + +---------+ + + Activated clotting time (03/10/2016 11:19 AM PDT) + + + + + + | Component | Value | Ref Range | Performed | Pathologist | | | | | At | Signature | + + + + + + | Activated | 104Comment: Testing | 74 - 137 | EXTERNAL | | | Clotting | performed at [facility] | seconds | LAB | | | time, POC | [address];[place] | | | | | | [address] | | | | + + + + + + + + | Specimen | + + | | + + + +---------+ + + | Performing | Address | City/State/Zipcode | Phone Number | | Organization | | | | + +---------+ + + | EXTERNAL LAB | | | | + +---------+ + + POC Glucose (03/10/2016 5:59 AM PDT) + + + + + + | Component | Value | Ref Range | Performed | Pathologist | | | | | At | Signature | + + + + + + | Glucose, | 85Comment: Testing | 65 - 99 mg/dL | EXTERNAL | | | Fingerstick | performed at [facility] | | LAB | | | | [address];[place], [place] | | | | | | [address] | | | | + + + + + + + + | Specimen | + + | | + + + +---------+ + + | Performing | Address | City/State/Zipcode | Phone Number | | Organization | | | | + +---------+ + + | EXTERNAL LAB | | | | + +---------+ + + POC Glucose (03/09/2016 10:01 PM PDT) + + + + + + | Component | Value | Ref Range | Performed | Pathologist | | | | | At | Signature | + + + + + + | Glucose, | 119 (H)Comment: Testing | 65 - 99 mg/dL | EXTERNAL | | | Fingerstick | performed at [facility] | | LAB | | | | [address];[place] | | | | | | [address] | | | | + + + + + + + + | Specimen | + + | | + + + +---------+ + + | Performing | Address | City/State/Zipcode | Phone Number | | Organization | | | | + +---------+ + + | EXTERNAL LAB | | | | + +---------+ + + POC Glucose (03/09/2016 4:22 PM PDT) + + + + + + | Component | Value | Ref Range | Performed | Pathologist | | | | | At | Signature | + + + + + + | Glucose, | 111 (H)Comment: Testing | 65 - 99 mg/dL | EXTERNAL | | | Fingerstick | performed at [facility] | | LAB | | | | [address];[place], [place] | | | | | | [address] | | | | + + + + + + + + | Specimen | + + | | + + + +---------+ + + | Performing | Address | City/State/Zipcode | Phone Number | | Organization | | | | + +---------+ + + | EXTERNAL LAB | | | | + +---------+ + + POC Glucose (03/09/2016 11:52 AM PDT) + + + + + + | Component | Value | Ref Range | Performed | Pathologist | | | | | At | Signature | + + + + + + | Glucose, | 200 (H)Comment: Testing | 65 - 99 mg/dL | EXTERNAL | | | Fingerstick | performed at [facility] | | LAB | | | | [address];[place] | | | | | | [address] | | | | + + + + + + + + | Specimen | + + | | + + + +---------+ + + | Performing | Address | City/State/Zipcode | Phone Number | | Organization | | | | + +---------+ + + | EXTERNAL LAB | | | | + +---------+ + + External Lab: CBC (03/09/2016 11:49 AM PDT) + + + + + + | Component | Value | Ref Range | Performed | Pathologist | | | | | At | Signature | + + + + + + | WBC | 8.29Comment: Testing | 3.80 - 11.00 | EXTERNAL | | | | performed at [facility];[address] | K/uL | LAB | | | | [address];[place] | | | | | | [address] | | | | + + + + + + | Non- | 3.02 (L)Comment: Testing | 4.20 - 5.70 | EXTERNAL | | | Red Blood | performed at [facility];[address] | M/uL | LAB | | | Cells | [address];[place] | | | | | Counted | [id number] | | | | + + + + + + | Hemoglobin | 8.4 (L)Comment: Testing | 13.2 - 17.0 | EXTERNAL | | | | performed at [facility];[place] | g/dL | LAB | | | | [address];[place] | | | | | | [address] | | | | + + + + + + | Hematocrit, | 26.1 (L)Comment: Testing | 39.0 - 50.0 % | EXTERNAL | | | POC | performed at [facility];[address] | | LAB | | | | [address];[place] | | | | | | [address] | | | | + + + + + + | MCV | 86.2Comment: Testing | 80.0 - 100.0 fl | EXTERNAL | | | | performed at [facility];[address] | | LAB | | | | [address];[place] | | | | | | [address] | | | | + + + + + + | MCH | 27.9Comment: Testing | 27.0 - 34.0 pg | EXTERNAL | | | | performed at [facility];[address] | | LAB | | | | [address];[place] | | | | | | [address] | | | | + + + + + + | MCHC | 32.3Comment: Testing | 32.0 - 35.5 | EXTERNAL | | | | performed at [facility];[address] | g/dL | LAB | | | | [address];[place] | | | | | | [address] | | | | + + + + + + | RDW-CV | 44.2Comment: Testing | 37 - 53 fl | EXTERNAL | | | | performed at [facility];[address] | | LAB | | | | [address];[place] | | | | | | [address] | | | | + + + + + + | Platelet | 168Comment: Testing | 150 - 400 K/uL | EXTERNAL | | | Count | performed at [facility];[address] | | LAB | | | Plasma | [address];[place] | | | | | | [address] | | | | + + + + + + | MPV | 10.0Comment: Testing | fl | EXTERNAL | | | | performed at [facility];[address] | | LAB | | | | [address];[place] | | | | | | [address] | | | | + + + + + + | Differentia | AUTOMATEDComment: | | EXTERNAL | | | l Type | Testing performed at | | LAB | | | | [facility];[address];[place] [address] | | | | + + + + + + | % Segmented | 78.99Comment: Testing | % | EXTERNAL | | | | performed at [facility];[address] | | LAB | | | Neutrophils | [address];[place] | | | | | | [address] | | | | + + + + + + | % | 7.68Comment: Testing | % | EXTERNAL | | | Lymphocytes | performed at [facility];[address] | | LAB | | | | [address];[place] | | | | | | [address] | | | | + + + + + + | % Monocytes | 9.74Comment: Testing | % | EXTERNAL | | | | performed at [facility];[address] | | LAB | | | | [address];[place] | | | | | | [address] | | | | + + + + + + | % | 2.24Comment: Testing | % | EXTERNAL | | | Eosinophils | performed at [facility];[address] | | LAB | | | | [address];[place] | | | | | | [address] | | | | + + + + + + | % Basophils | 1.35Comment: Testing | % | EXTERNAL | | | | performed at [facility];[address] | | LAB | | | | [address];[place] | | | | | | [address] | | | | + + + + + + | Absolute | 6.55Comment: Testing | 1.90 - 7.40 | EXTERNAL | | | Segmented | performed at [facility];[address] | K/uL | LAB | | | Neutrophils | [address];[place] | | | | | | [address] | | | | + + + + + + | Absolute | 0.64 (L)Comment: Testing | 1.00 - 3.90 | EXTERNAL | | | Lymphocytes | performed at [facility];[address] | K/uL | LAB | | | | [address];[place] | | | | | | [address] | | | | + + + + + + | Absolute | 0.81 (H)Comment: Testing | 0.00 - 0.80 | EXTERNAL | | | Monocytes | performed at [facility];[address] | K/uL | LAB | | | | [address];[place] | | | | | | [address] | | | | + + + + + + | Absolute | 0.19Comment: Testing | 0.00 - 0.50 | EXTERNAL | | | Eosinophils | performed at [facility];[address] | K/uL | LAB | | | | [address];[place] | | | | | | [address] | | | | + + + + + + | Absolute | 0.11 (H)Comment: Testing | 0.00 - 0.10 | EXTERNAL | | | Basophils | performed at [facility];[address] | K/uL | LAB | | | | [address];[place] | | | | | | [address] | | | | + + + [...] + +---------+ + + Comprehensive Metabolic Panel (03/09/2016 11:49 AM PDT) + + + + + + | Component | Value | Ref Range | Performed | Pathologist | | | | | At | Signature | + + + + + + | Na | 140Comment: Testing | 135 - 145 | EXTERNAL | | | | performed at [facility];[address] | mmol/L | LAB | | | | [address];[place] | | | | | | [address] | | | | + + + + + + | K | 3.8Comment: Testing | 3.5 - 4.9 | EXTERNAL | | | | performed at [facility];[address] | mmol/L | LAB | | | | [address];[place] | | | | | | [address] | | | | + + + + + + | Cl | 104Comment: Testing | 99 - 109 mmol/L | EXTERNAL | | | | performed at [facility];[address] | | LAB | | | | [address];[place] | | | | | | [address] | | | | + + + + + + | CO2 | 26Comment: Testing | 23 - 32 mmol/L | EXTERNAL | | | | performed at [facility];[address] | | LAB | | | | [address];[place] | | | | | | [address] | | | | + + + + + + | Anion Gap | 14Comment: Testing | 5 - 20 mmol/L | EXTERNAL | | | | performed at [facility];[address] | | LAB | | | | [address];[place] | | | | | | [address] | | | | + + + + + + | Glucose, | 194 (H)Comment: Testing | 65 - 99 mg/dL | EXTERNAL | | | Fasting | performed at [facility];[address] | | LAB | | | | [address];[place] | | | | | | [address] | | | | + + + + + + | BUN | 36 (H)Comment: Testing | 8 - 25 mg/dL | EXTERNAL | | | | performed at [facility];[address] | | LAB | | | | [address];[place] | | | | | | [address] | | | | + + + + + + | Creatinine | 4.9 (H)Comment: Testing | 0.70 - 1.30 | EXTERNAL | | | | performed at [facility];[address] | mg/dL | LAB | | | | [address];[place] | | | | | | [address] | | | | + + + + + + | BUN/Creatin | 7Comment: Testing | | EXTERNAL | | | ine Ratio | performed at [facility];[address] | | LAB | | | | [address];[place] | | | | | | [address] | | | | + + + + + + | Calcium | 8.1 (L)Comment: Testing | 8.5 - 10.5 | EXTERNAL | | | | performed at [facility];[address] | mg/dL | LAB | | | | [address];[place] | | | | | | [address] | | | | + + + + + + | Protein, | 6.0 (L)Comment: Testing | 6.3 - 8.2 g/dL | EXTERNAL | | | Total | performed at [facility];[address] | | LAB | | | | [address];[place] | | | | | | [address] | | | | + + + + + + | Albumin | 2.5 (L)Comment: Testing | 3.3 - 4.8 g/dL | EXTERNAL | | | | performed at [facility];[address] | | LAB | | | | [address];[place] | | | | | | [address] | | | | + + + + + + | Globulin | 3.5Comment: Testing | 1.3 - 4.9 g/dL | EXTERNAL | | | | performed at [facility];[address] | | LAB | | | | [address];[place] | | | | | | [address] | | | | + + + + + + | A/G Ratio | 0.7 (L)Comment: Testing | 1.0 - 2.4 | EXTERNAL | | | | performed at [facility];[address] | | LAB | | | | [address];[place] | | | | | | [address] | | | | + + + + + + | Bilirubin | 0.3Comment: Testing | 0.1 - 1.5 mg/dL | EXTERNAL | | | Total | performed at [facility];[address] | | LAB | | | | [address];[place] | | | | | | [address] | | | | + + + + + + | ALP, | 42Comment: Testing | 35 - 115 U/L | EXTERNAL | | | External | performed at [facility];[address] | | LAB | | | | [address];[place] | | | | | | [address] | | | | + + + + + + | AST | 15Comment: Testing | 10 - 45 U/L | EXTERNAL | | | | performed at [facility];[address] | | LAB | | | | [address];[place] | | | | | | [address] | | | | + + + + + + | ALT | 14Comment: Testing | 10 - 65 U/L | EXTERNAL | | | | performed at [facility];[address] | | LAB | | | | [address];[place] | | | | | | [address] | | | | + + + + + + | Estimated | 13 (L)Comment: GFR <60: | mL/min/1.73m2 | EXTERNAL [...] | | | | | | at [facility];[address] [place] [address] | | | | | | [facility];[place] [address] | | | | + + + + + + + + | Specimen | + + | Blood specimen | | (specimen) | + + + +---------+ + + | Performing | Address | City/State/Zipcode | Phone Number | | Organization | | | | + +---------+ + + | EXTERNAL LAB | | | | + +---------+ + + POC Glucose (03/09/2016 10:43 AM PDT) + + + + + + | Component | Value | Ref Range | Performed | Pathologist | | | | | At | Signature | + + + + + + | Glucose, | 191 (H)Comment: Testing | 65 - 99 mg/dL | EXTERNAL | | | Fingerstick | performed at [facility];[address] | | LAB | | | | [address];[place], [place] | | | | | | [address] | | | | + + + + + + + + | Specimen | + + | | + + + +---------+ + + | Performing | Address | City/State/Zipcode | Phone Number | | Organization | | | | + +---------+ + + | EXTERNAL LAB | | | | + +---------+ + + POC Glucose (03/09/2016 5:53 AM PDT) + + + + + + | Component | Value | Ref Range | Performed | Pathologist | | | | | At | Signature | + + + + + + | Glucose, | 84Comment: Testing | 65 - 99 mg/dL | EXTERNAL | | | Fingerstick | performed at [facility] | | LAB | | | | [address];[place] | | | | | | [address] | | | | + + + + + + + + | Specimen | + + | | + + + +---------+ + + | Performing | Address | City/State/Zipcode | Phone Number | | Organization | | | | + +---------+ + + | EXTERNAL LAB | | | | + +---------+ + + POC Glucose (03/08/2016 8:31 PM PDT) + + + + + + | Component | Value | Ref Range | Performed | Pathologist | | | | | At | Signature | + + + + + + | Glucose, | 119 (H)Comment: Testing | 65 - 99 mg/dL | EXTERNAL | | | Fingerstick | performed at [facility];[address] | | LAB | | | | [address];[place], [place] | | | | | | [address] | | | | + + + + + + + + | Specimen | + + | | + + + +---------+ + + | Performing | Address | City/State/Zipcode | Phone Number | | Organization | | | | + +---------+ + + | EXTERNAL LAB | | | | + +---------+ + + POC Glucose (03/08/2016 4:15 PM PDT) + + + + + + | Component | Value | Ref Range | Performed | Pathologist | | | | | At | Signature | + + + + + + | Glucose, | 116 (H)Comment: Testing | 65 - 99 mg/dL | EXTERNAL | | | Fingerstick | performed at [facility];[address] | | LAB | | | | [address];[place] | | | | | | [address] | | | | + + + + + + + + | Specimen | + + | | + + + +---------+ + + | Performing | Address | City/State/Zipcode | Phone Number | | Organization | | | | + +---------+ + + | EXTERNAL LAB | | | | + +---------+ + + POC Glucose (03/08/2016 11:16 AM PDT) + + + + + + | Component | Value | Ref Range | Performed | Pathologist | | | | | At | Signature | + + + + + + | Glucose, | 128 (H)Comment: Testing | 65 - 99 mg/dL | EXTERNAL | | | Fingerstick | performed at [facility];[address] | | LAB | | | | [address];[place] | | | | | | [address] | | | | + + + + + + + + | Specimen | + + | | + + + +---------+ + + | Performing | Address | City/State/Zipcode | Phone Number | | Organization | | | | + +---------+ + + | EXTERNAL LAB | | | | + +---------+ + + External Lab: CBC (03/08/2016 7:07 AM PDT) + + + + + + | Component | Value | Ref Range | Performed | Pathologist | | | | | At | Signature | + + + + + + | WBC | 8.80Comment: Testing | 3.80 - 11.00 | EXTERNAL | | | | performed at [facility];[address] | K/uL | LAB | | | | [address];[place] | | | | | | [address] | | | | + + + + + + | Non- | 2.87 (L)Comment: Testing | 4.20 - 5.70 | EXTERNAL | | | Red Blood | performed at [facility];[address] | M/uL | LAB | | | Cells | [address];[place] | | | | | Counted | [address] | | | | + + + + + + | Hemoglobin | 8.0 (L)Comment: Testing | 13.2 - 17.0 | EXTERNAL | | | | performed at [facility];888 | g/dL | LAB | | | | [address];[place] | | | | | | [address] | | | | + + + + + + | Hematocrit, | 24.7 (L)Comment: Testing | 39.0 - 50.0 % | EXTERNAL | | | POC | performed at [facility];[address] | | LAB | | | | [address];[place] | | | | | | [address] | | | | + + + + + + | MCV | 86.2Comment: Testing | 80.0 - 100.0 fl | EXTERNAL | | | | performed at [facility];[address] | | LAB | | | | [address];[place] | | | | | | [address] | | | | + + + + + + | MCH | 27.8Comment: Testing | 27.0 - 34.0 pg | EXTERNAL | | | | performed at [facility];[address] | | LAB | | | | [address];[place] | | | | | | [address] | | | | + + + + + + | MCHC | 32.3Comment: Testing | 32.0 - 35.5 | EXTERNAL | | | | performed at [facility];888 | g/dL | LAB | | | | [address];[place] | | | | | | [address] | | | | + + + + + + | RDW-CV | 44.6Comment: Testing | 37 - 53 fl | EXTERNAL | | | | performed at [facility];[address] | | LAB | | | | [address];[place] | | | | | | [address] | | | | + + + + + + | Platelet | 150Comment: Testing | 150 - 400 K/uL | EXTERNAL | | | Count | performed at [facility];[address] | | LAB | | | Plasma | [address];[place] | | | | | | [address] | | | | + + + + + + | MPV | 10.2Comment: Testing | fl | EXTERNAL | | | | performed at [facility];[address] | | LAB | | | | [address];[place] | | | | | | [address] | | | | + + + + + + | Differentia | AUTOMATEDComment: | | EXTERNAL | | | l Type | Testing performed at | | LAB | | | | [facility];[address];[place] [address] | | | | + + + + + + | % Segmented | 77.47Comment: Testing | % | EXTERNAL | | | | performed at [facility];[address] | | LAB | | | Neutrophils | [address];[place] | | | | | | [address] | | | | + + + + + + | % | 9.55Comment: Testing | % | EXTERNAL | | | Lymphocytes | performed at [facility];[address] | | LAB | | | | [address];[place] | | | | | | [address] | | | | + + + + + + | % Monocytes | 9.33Comment: Testing | % | EXTERNAL | | | | performed at [facility];[address] | | LAB | | | | [address];[place] | | | | | | [address] | | | | + + + + + + | % | 2.70Comment: Testing | % | EXTERNAL | | | Eosinophils | performed at [facility];[address] | | LAB | | | | [address];[place] | | | | | | [address] | | | | + + + + + + | % Basophils | 0.95Comment: Testing | % | EXTERNAL | | | | performed at [facility];[address] | | LAB | | | | [address];[place] | | | | | | [address] | | | | + + + + + + | Absolute | 6.82Comment: Testing | 1.90 - 7.40 | EXTERNAL | | | Segmented | performed at [facility];888 | K/uL | LAB | | | Neutrophils | [address];[place] | | | | | | [address] | | | | + + + + + + | Absolute | 0.84 (L)Comment: Testing | 1.00 - 3.90 | EXTERNAL | | | Lymphocytes | performed at [facility];[address] | K/uL | LAB | | | | [address];[place] | | | | | | [address] | | | | + + + + + + | Absolute | 0.82 (H)Comment: Testing | 0.00 - 0.80 | EXTERNAL | | | Monocytes | performed at [facility];[address] | K/uL | LAB | | | | [address];[place] | | | | | | [address] | | | | + + + + + + | Absolute | 0.24Comment: Testing | 0.00 - 0.50 | EXTERNAL | | | Eosinophils | performed at [facility];[address] | K/uL | LAB | | | | [address];[place] | | | | | | [address] | | | | + + + + + + | Absolute | 0.08Comment: Testing | 0.00 - 0.10 | EXTERNAL | | | Basophils | performed at [facility];[address] | K/uL | LAB | | | | [address];[place] | | | | | | [address] | | | | + + + [...] + +---------+ + + Comprehensive Metabolic Panel (03/08/2016 7:07 AM PDT) + + + + + + | Component | Value | Ref Range | Performed | Pathologist | | | | | At | Signature | + + + + + + | Na | 141Comment: Testing | 135 - 145 | EXTERNAL | | | | performed at [facility];[address] | mmol/L | LAB | | | | [address];[place] | | | | | | [address] | | | | + + + + + + | K | 3.6Comment: Testing | 3.5 - 4.9 | EXTERNAL | | | | performed at [facility];[address] | mmol/L | LAB | | | | [address];[place] | | | | | | [address] | | | | + + + + + + | Cl | 105Comment: Testing | 99 - 109 mmol/L | EXTERNAL | | | | performed at [facility];[address] | | LAB | | | | [address];[place] | | | | | | [address] | | | | + + + + + + | CO2 | 25Comment: Testing | 23 - 32 mmol/L | EXTERNAL | | | | performed at [facility];[address] | | LAB | | | | [address];[place] | | | | | | [address] | | | | + + + + + + | Anion Gap | 15Comment: Testing | 5 - 20 mmol/L | EXTERNAL | | | | performed at [facility];[address] | | LAB | | | | [address];[place] | | | | | | [address] | | | | + + + + + + | Glucose, | 155 (H)Comment: Testing | 65 - 99 mg/dL | EXTERNAL | | | Fasting | performed at [facility];[address] | | LAB | | | | [address];[place] | | | | | | [address] | | | | + + + + + + | BUN | 43 (H)Comment: Testing | 8 - 25 mg/dL | EXTERNAL | | | | performed at [facility];[address] | | LAB | | | | [address];[place] | | | | | | [address] | | | | + + + + + + | Creatinine | 5.8 (H)Comment: Testing | 0.70 - 1.30 | EXTERNAL | | | | performed at [facility];888 | mg/dL | LAB | | | | [address];[place] | | | | | | [address] | | | | + + + + + + | BUN/Creatin | 7Comment: Testing | | EXTERNAL | | | ine Ratio | performed [place] [facility] [place] | | [place] | | | | [address];[place] | | | | | | [phone] | | | | + + + + + + | Calcium | 8.1 (L)Comment: Testing | 8.5 - 10.5 | EXTERNAL | | | | performed [place] [facility] [place] | mg/dL | LAB | | | | [address];[place] | | | | | | [id number] | | | | + + + + + + | Protein, | 5.5 (L)Comment: Testing | 6.3 - 8.2 g/dL | EXTERNAL | | | Total | performed [place] [facility] [place] | | [place] | | | | [address];[place] | | | | | | [address] | | | | + + + + + + | Albumin | 2.3 (L)Comment: Testing | 3.3 - 4.8 g/dL | EXTERNAL | | | | performed at [facility] [place] | | LAB | | | | [address];[place] | | | | | | [address] | | | | + + + + + + | Globulin | 3.2Comment: Testing | 1.3 - 4.9 g/dL | EXTERNAL | | | | performed at [facility] [place] | | LAB | | | | [address];[place] | | | | | | [address] | | | | + + + + + + | A/G Ratio | 0.7 (L)Comment: Testing | 1.0 - 2.4 | EXTERNAL | | | | performed at [facility] [place] | | LAB | | | | [address];[place] | | | | | | [address] | | | | + + + + + + | Bilirubin | 0.3Comment: Testing | 0.1 - 1.5 mg/dL | EXTERNAL | | | Total | performed at [facility] [place] | | LAB | | | | [address];[place] | | | | | | [address] | | | | + + + + + + | ALP, | 38Comment: Testing | 35 - 115 U/L | EXTERNAL | | | External | performed at [facility] [place] | | LAB | | | | [address];[place] | | | | | | [address] | | | | + + + + + + | AST | 15Comment: Testing | 10 - 45 U/L | EXTERNAL | | | | performed at [facility] [place] | | LAB | | | | [address];[place] | | | | | | [address] | | | | + + + + + + | ALT | 10Comment: Testing | 10 - 65 U/L | EXTERNAL | | | | performed at [facility] [place] | | LAB | | | | [address];[place], [place] | | | | | | [phone] | | | | + + + + + + | Estimated | 10 (L)Comment: GFR <60: | mL/min/1.73m2 | EXTERNAL [...] | | | | | | at [facility];[place] [address] | | | | + + + + + + + + | Specimen | + + | Blood specimen | | (specimen) | + + + +---------+ + + | Performing | Address | City/State/Zipcode | Phone Number | | Organization | | | | + +---------+ + + | EXTERNAL LAB | | | | + +---------+ + + POC Glucose (03/08/2016 5:50 AM PDT) + + + + + + | Component | Value | Ref Range | Performed | Pathologist | | | | | At | Signature | + + + + + + | Glucose, | 149 (H)Comment: Testing | 65 - 99 mg/dL | EXTERNAL | | | Fingerstick | performed at [facility] | | LAB | | | | [address];[place] | | | | | | [address] | | | | + + + + + + + + | Specimen | + + | | + + + +---------+ + + | Performing | Address | City/State/Zipcode | Phone Number | | Organization | | | | + +---------+ + + | EXTERNAL LAB | | | | + +---------+ + + Iron and Iron Binding Capacity (03/08/2016 3:25 AM PDT) + + + + + + | Component | Value | Ref Range | Performed | Pathologist | | | | | At | Signature | + + + + + + | Iron | 13 (L)Comment: Testing | 45 - 190 ug/dL | EXTERNAL | | | | performed at [facility], [address] | | LAB | | | | [address], | | | | | | [place] [address] | | | | + + + + + + | TIBC | 150 (L)Comment: Testing | 250 - 450 ug/dL | EXTERNAL | | | | performed at [facility], [address] | | LAB | | | | [address], | | | | | | [place] [address] | | | | + + + + + + | Iron | 9 (L)Comment: Testing | 20 - 50 % | EXTERNAL | | | Saturation | performed at [facility], [address] | | LAB | | | | [address], | | | | | | [place] [address] | | | | + + + [...] + + Vitamin D, Deficiency Screen (25-Hydroxy) (03/08/2016 3:25 AM PDT) + + + + + + | Component | Value | Ref Range | Performed | Pathologist | | | | | At | Signature | + + + + + + | Vit D, | 48Comment: <20 ng/mL | 30 - 150 ng/mL | EXTERNAL | | | 25-Hydroxy | Suggests deficiency | | LAB | | | | of 25-OH Vitamin | | | | | | D.20-29 ng/mL | | | | | | Suggests a relative | | | | | | insufficiency of 25-OH | | | | | | Vitamin D.30-150 ng/mL | | | | | | Suggests a sufficient | | | | | | level of 25-OH Vitamin | | | | | | D.>150 ng/mL Toxic | | | | | | level of 25-OH Vitamin | | | | | | D.Blood levels of 25 | | | | | | Hydroxy Vitamin D vary | | | | | | with the extent of sun | | | | | | exposure. Values tend to | | | | | | be highest in late | | | | | | summer and lowest in the | | | | | | spring. Values also | | | | | | tend to decrease with | | | | | | age, due to decreased | | | | | | precursor synthesis in | | | | | | the skin.Testing | | | | | | performed at [facility], [address] | | | | | | [facility], | | | | | | [place] [address] | | | | + + + + + + + + | Specimen | + + | Blood specimen | | (specimen) | + + + +---------+ + + | Performing | Address | City/State/Zipcode | Phone Number | | Organization | | | | + +---------+ + + | EXTERNAL LAB | | | | + +---------+ + + Ferritin (03/08/2016 3:25 AM PDT) + + + + + + | Component | Value | Ref Range | Performed | Pathologist | | | | | At | Signature | + + + + + + | Ferritin, | 337Comment: Testing | 11 - 450 ng/mL | EXTERNAL | | | External | performed at [facility], [address] | | LAB | | | | [address], | | | | | | [place] [address] | | | | + + + + + + + + | Specimen | + + | Blood specimen | | (specimen) | + + + +---------+ + + | Performing | Address | City/State/Zipcode | Phone Number | | Organization | | | | + +---------+ + + | EXTERNAL LAB | | | | + +---------+ + + POC Glucose (03/07/2016 9:32 PM PDT) + + + + + + | Component | Value | Ref Range | Performed | Pathologist | | | | | At | Signature | + + + + + + | Glucose, | 168 (H)Comment: Testing | 65 - 99 mg/dL | EXTERNAL | | | Fingerstick | performed at [facility];[address] | | LAB | | | | [address];[place], [place] | | | | | | [address] | | | | + + + + + + + + | Specimen | + + | | + + + +---------+ + + | Performing | Address | City/State/Zipcode | Phone Number | | Organization | | | | + +---------+ + + | EXTERNAL LAB | | | | + +---------+ + + POC Glucose (03/07/2016 4:20 PM PDT) + + + + + + | Component | Value | Ref Range | Performed | Pathologist | | | | | At | Signature | + + + + + + | Glucose, | 198 (H)Comment: Testing | 65 - 99 mg/dL | EXTERNAL | | | Fingerstick | performed at [facility];[address] | | LAB | | | | [address];[place] | | | | | | [address] | | | | + + + + + + + + | Specimen | + + | | + + + +---------+ + + | Performing | Address | City/State/Zipcode | Phone Number | | Organization | | | | + +---------+ + + | EXTERNAL LAB | | | | + +---------+ + + POC Glucose (03/07/2016 11:13 AM PDT) + + + + + + | Component | Value | Ref Range | Performed | Pathologist | | | | | At | Signature | + + + + + + | Glucose, | 263 (H)Comment: Testing | 65 - 99 mg/dL | EXTERNAL | | | Fingerstick | performed at [facility];[address] | | LAB | | | | [address];[place] | | | | | | [address] | | | | + + + + + + + + | Specimen | + + | | + + + +---------+ + + | Performing | Address | City/State/Zipcode | Phone Number | | Organization | | | | + +---------+ + + | EXTERNAL LAB | | | | + +---------+ + + POC Glucose (03/07/2016 8:45 AM PDT) + + + + + + | Component | Value | Ref Range | Performed | Pathologist | | | | | At | Signature | + + + + + + | Glucose, | 219 (H)Comment: Testing | 65 - 99 mg/dL | EXTERNAL | | | Fingerstick | performed at [facility];[address] | | LAB | | | | [address];[place] | | | | | | [address] | | | | + + + + + + + + | Specimen | + + | | + + + +---------+ + + | Performing | Address | City/State/Zipcode | Phone Number | | Organization | | | | + +---------+ + + | EXTERNAL LAB | | | | + +---------+ + + CBC no Differential (03/07/2016 3:56 AM PDT) + + + + + + | Component | Value | Ref Range | Performed | Pathologist | | | | | At | Signature | + + + + + + | WBC | 7.61Comment: Testing | 3.80 - 11.00 | EXTERNAL | | | | performed at [facility], [address] | K[address] | LAB | | | | [address], | | | | | | [place] [address] | | | | + + + + + + | Non- | 2.97 (L)Comment: Testing | 4.20 - 5.70 | EXTERNAL | | | Red Blood | performed at [facility], [address] | [address] | LAB | | | Cells | [address], | | | | | Counted | [place] [address] | | | | + + + + + + | Hemoglobin | 8.4 (L)Comment: Testing | 13.2 - 17.0 | EXTERNAL | | | | performed at [facility], [address] | g/dL | LAB | | | | [address], | | | | | | [place] [address] | | | | + + + + + + | Hematocrit, | 25.5 (L)Comment: Testing | 39.0 - 50.0 % | EXTERNAL | | | POC | performed at [facility], [address] | | LAB | | | | [address], | | | | | | [place] [address] | | | | + + + + + + | MCV | 85.7Comment: Testing | 80.0 - 100.0 fl | EXTERNAL | | | | performed at [facility], [address] | | LAB | | | | [address], | | | | | | [place] [address] | | | | + + + + + + | MCH | 28.2Comment: Testing | 27.0 - 34.0 pg | EXTERNAL | | | | performed at [facility], [address] | | LAB | | | | [address], | | | | | | [place] [address] | | | | + + + + + + | MCHC | 32.9Comment: Testing | 32.0 - 35.5 | EXTERNAL | | | | performed at [facility], [address] | g/dL | LAB | | | | [address], | | | | | | [place] [address] | | | | + + + + + + | RDW-CV | 43.8Comment: Testing | 37 - 53 fl | EXTERNAL | | | | performed at [facility], [address] | | LAB | | | | [address], | | | | | | [place] [address] | | | | + + + + + + | Platelet | 126 (L)Comment: Testing | 150 - 400 K/uL | EXTERNAL | | | Count | performed at [facility], [address] | | LAB | | | Plasma | [address], | | | | | | [place] [address] | | | | + + + + + + | MPV | 10.6Comment: Testing | fl | EXTERNAL | | | | performed at [facility], [address] | | LAB | | | | [address], | | | | | | [place] [address] | | | | + + + + + + + + | Specimen | + + | | + + + +---------+ + + | Performing | Address | City/State/Zipcode | Phone Number | | Organization | | | | + +---------+ + + | EXTERNAL LAB | | | | + +---------+ + + Basic Metabolic Panel (03/07/2016 3:56 AM PDT) + + + + + + | Component | Value | Ref Range | Performed | Pathologist | | | | | At | Signature | + + + + + + | Na | 140Comment: Testing | 135 - 145 | EXTERNAL | | | | performed at [facility], [address] | mmol/L | LAB | | | | [address], | | | | | | [place] [address] | | | | + + + + + + | K | 3.9Comment: Testing | 3.5 - 4.9 | EXTERNAL | | | | performed at [facility], [address] | mmol/L | LAB | | | | [address], | | | | | | [place] [address] | | | | + + + + + + | Cl | 104Comment: Testing | 99 - 109 mmol/L | EXTERNAL | | | | performed at [facility], [address] | | LAB | | | | [address], | | | | | | [place] [address] | | | | + + + + + + | CO2 | 27Comment: Testing | 23 - 32 mmol/L | EXTERNAL | | | | performed at [facility], [address] | | LAB | | | | [address], | | | | | | [place] [address] | | | | + + + + + + | Anion Gap | 13Comment: Testing | 5 - 20 mmol/L | EXTERNAL | | | | performed at [facility], [address] | | LAB | | | | [address], | | | | | | [place] [address] | | | | + + + + + + | Glucose, | 152 (H)Comment: Testing | 65 - 99 mg/dL | EXTERNAL | | | Fasting | performed at [facility], [address] | | LAB | | | | [address], | | | | | | [place] [address] | | | | + + + + + + | BUN | 29 (H)Comment: Testing | 8 - 25 mg/dL | EXTERNAL | | | | performed at [facility], [address] | | LAB | | | | [address], | | | | | | [place] [address] | | | | + + + + + + | Creatinine | 4.5 (H)Comment: Testing | 0.70 - 1.30 | EXTERNAL | | | | performed at [facility], [address] | mg/dL | LAB | | | | [address], | | | | | | [place] [address] | | | | + + + + + + | BUN/Creatin | 6Comment: Testing | | EXTERNAL | | | ine Ratio | performed at [facility], [address] | | LAB | | | | [address], | | | | | | [place] [address] | | | | + + + + + + | Calcium | 8.2 (L)Comment: Testing | 8.5 - 10.5 | EXTERNAL | | | | performed at [facility], [address] | mg/dL | LAB | | | | [address], | | | | | | [place] [address] | | | | + + + [...] | | | | | | at [facility], [address] | | | | | | [address], | | | | | | [place] [address] | | | | + + + + + + + + | Specimen | + + | Blood specimen | | (specimen) | + + + +---------+ + + | Performing | Address | City/State/Zipcode | Phone Number | | Organization | | | | + +---------+ + + | EXTERNAL LAB | | | | + +---------+ + + POC Glucose (03/06/2016 4:19 PM PDT) + + + + + + | Component | Value | Ref Range | Performed | Pathologist | | | | | At | Signature | + + + + + + | Glucose, | 134 (H)Comment: Testing | 65 - 99 mg/dL | EXTERNAL | | | Fingerstick | performed at [facility];[address] | | LAB | | | | [address];[place] | | | | | | [address] | | | | + + + + + + + + | Specimen | + + | | + + + +---------+ + + | Performing | Address | City/State/Zipcode | Phone Number | | Organization | | | | + +---------+ + + | EXTERNAL LAB | | | | + +---------+ + + POC Glucose (03/06/2016 11:18 AM PDT) + + + + + + | Component | Value | Ref Range | Performed | Pathologist | | | | | At | Signature | + + + + + + | Glucose, | 193 (H)Comment: Testing | 65 - 99 mg/dL | EXTERNAL | | | Fingerstick | performed at [facility];[address] | | LAB | | | | [address];[place] | | | | | | [address] | | | | + + + + + + + + | Specimen | + + | | + + + +---------+ + + | Performing | Address | City/State/Zipcode | Phone Number | | Organization | | | | + +---------+ + + | EXTERNAL LAB | | | | + +---------+ + + POC Glucose (03/06/2016 5:11 AM PDT) + + + + + + | Component | Value | Ref Range | Performed | Pathologist | | | | | At | Signature | + + + + + + | Glucose, | 153 (H)Comment: Testing | 65 - 99 mg/dL | EXTERNAL | | | Fingerstick | performed at [facility];[address] | | LAB | | | [address];[place], [place] | | | | | | [address] | | | | + + + + + + + + | Specimen | + + | | + + + +---------+ + + | Performing | Address | City/State/Zipcode | Phone Number | | Organization | | | | + +---------+ + + | EXTERNAL LAB | | | | + +---------+ + + CBC no Differential (03/06/2016 4:19 AM PDT) + + + + + + | Component | Value | Ref Range | Performed | Pathologist | | | | | At | Signature | + + + + + + | WBC | 8.91Comment: Testing | 3.80 - 11.00 | EXTERNAL | | | | performed at [facility], [address] | K/uL | LAB | | | | [address], | | | | | | [place] [address] | | | | + + + + + + | Non- | 2.95 (L)Comment: Testing | 4.20 - 5.70 | EXTERNAL | | | Red Blood | performed at [facility], [address] | M/uL | LAB | | | Cells | [address] [facility] [address], | | | | | Counted | [place] [address] | | | | + + + + + + | Hemoglobin | 8.5 (L)Comment: Testing | 13.2 - 17.0 | EXTERNAL | | | | performed at [facility], [address] | g/dL | LAB | | | | [address], | | | | | | [place] [address] | | | | + + + + + + | Hematocrit, | 25.6 (L)Comment: Testing | 39.0 - 50.0 % | EXTERNAL | | | POC | performed at [facility], [address] | | LAB | | | | [address], | | | | | | [place] [address] | | | | + + + + + + | MCV | 86.6Comment: Testing | 80.0 - 100.0 fl | EXTERNAL | | | | performed at [facility], [address] | | LAB | | | | [address], | | | | | | [place] [address] | | | | + + + + + + | MCH | 28.7Comment: Testing | 27.0 - 34.0 pg | EXTERNAL | | | | performed at [facility], [address] | | LAB | | | | [address], | | | | | | [place] [address] | | | | + + + + + + | MCHC | 33.1Comment: Testing | 32.0 - 35.5 | EXTERNAL | | | | performed at [facility], [address] | g/dL | LAB | | | | [address], | | | | | | [place] [address] | | | | + + + + + + | RDW-CV | 44.6Comment: Testing | 37 - 53 fl | EXTERNAL | | | | performed at [facility], [address] | | LAB | | | | [address], | | | | | | [place] [address] | | | | + + + + + + | Platelet | 124 (L)Comment: Testing | 150 - 400 K/uL | EXTERNAL | | | Count | performed at [facility], [address] | | LAB | | | Plasma | [address], | | | | | | [place] [address] | | | | + + + + + + | MPV | 11.1Comment: Testing | fl | EXTERNAL | | | | performed at [facility], [address] | | LAB | | | | [address], | | | | | | [place], [place] [address] | | | | + + + + + + + + | Specimen | + + | | + + + +---------+ + + | Performing | Address | City/State/Zipcode | Phone Number | | Organization | | | | + +---------+ + + | EXTERNAL LAB | | | | + +---------+ + + Basic Metabolic Panel (03/06/2016 4:19 AM PDT) + + + + + + | Component | Value | Ref Range | Performed | Pathologist | | | | | At | Signature | + + + + + + | Na | 141Comment: Testing | 135 - 145 | EXTERNAL | | | | performed at [facility], [address] | mmol/L | LAB | | | | [address], | | | | | | [place] [address] | | | | + + + + + + | K | 3.8Comment: Testing | 3.5 - 4.9 | EXTERNAL | | | | performed at [facility], [address] | mmol/L | LAB | | | | [address], | | | | | | [place] [address] | | | | + + + + + + | Cl | 103Comment: Testing | 99 - 109 mmol/L | EXTERNAL | | | | performed at [facility], [address] | | LAB | | | | [address], | | | | | | [place] [address] | | | | + + + + + + | CO2 | 27Comment: Testing | 23 - 32 mmol/L | EXTERNAL | | | | performed at [facility], [address] | | LAB | | | | [address], | | | | | | [place] [address] | | | | + + + + + + | Anion Gap | 15Comment: Testing | 5 - 20 mmol/L | EXTERNAL | | | | performed at [facility], [address] | | LAB | | | | [address], | | | | | | [place] [address] | | | | + + + + + + | Glucose, | 132 (H)Comment: Testing | 65 - 99 mg/dL | EXTERNAL | | | Fasting | performed at [facility], [address] | | LAB | | | | [address], | | | | | | [place] [address] | | | | + + + + + + | BUN | 43 (H)Comment: Testing | 8 - 25 mg/dL | EXTERNAL | | | | performed at [facility], [address] | | LAB | | | | [address], | | | | | | [place] [address] | | | | + + + + + + | Creatinine | 5.8 (H)Comment: Testing | 0.70 - 1.30 | EXTERNAL | | | | performed at [facility], [address] | mg/dL | LAB | | | | [address], | | | | | | [place] [address] | | | | + + + + + + | BUN/Creatin | 7Comment: Testing | | EXTERNAL | | | ine Ratio | performed at [facility], [address] | | LAB | | | | [address], | | | | | | [place] [address] | | | | + + + + + + | Calcium | 8.2 (L)Comment: Testing | 8.5 - 10.5 | EXTERNAL | | | | performed at [facility], [address] | mg/dL | LAB | | | | [address], | | | | | | [place] [address] | | | | + + + + + + | Estimated | 10 (L)Comment: GFR <60: | mL/min/1.73m2 | EXTERNAL [...] | | | | | | at [facility], [address] | | | | | | [address] [facility], | | | | | | [place] [address] | | | | + + + + + + + + | Specimen | + + | Blood specimen | | (specimen) | + + + +---------+ + + | Performing | Address | City/State/Zipcode | Phone Number | | Organization | | | | + +---------+ + + | EXTERNAL LAB | | | | + +---------+ + + POC Glucose (03/05/2016 9:03 PM PDT) + + + + + + | Component | Value | Ref Range | Performed | Pathologist | | | | | At | Signature | + + + + + + | Glucose, | 159 (H)Comment: Testing | 65 - 99 mg/dL | EXTERNAL | | | Fingerstick | performed at [facility] | | LAB | | | | [address];[place] | | | | | | [address] | | | | + + + + + + + + | Specimen | + + | | + + + +---------+ + + | Performing | Address | City/State/Zipcode | Phone Number | | Organization | | | | + +---------+ + + | EXTERNAL LAB | | | | + +---------+ + + POC Glucose (03/05/2016 4:09 PM PDT) + + + + + + | Component | Value | Ref Range | Performed | Pathologist | | | | | At | Signature | + + + + + + | Glucose, | 267 (H)Comment: Testing | 65 - 99 mg/dL | EXTERNAL | | | Fingerstick | performed at [facility];[address] | | LAB | | | [address];[place], [place] | | | | | | [address] | | | | + + + + + + + + | Specimen | + + | | + + + +---------+ + + | Performing | Address | City/State/Zipcode | Phone Number | | Organization | | | | + +---------+ + + | EXTERNAL LAB | | | | + +---------+ + + ECHO Complete (03/05/2016 2:40 PM PDT) + + | Specimen | + + | | + + + + + | Impressions | Performed At | + + + | 1. This was a technically difficult study with suboptimal views. 2. | | | Overall left ventricular systolic function is moderate-severely | | | impaired with, an EF between 30 - 35 %. 3. The right ventricle is | | | mildly enlarged, but right ventricular systolic function is normal. | | | 4. The left atrium is markedly dilated. 5. There is severe aortic | | | stenosis present. 6. There is moderate pulmonary hypertension. The | | | right ventricular systolic pressure (pulmonary artery systolic | | | pressure), as measured by Doppler, is 55 mm Hg. | | + + + + + + | Narrative | Performed At | + + + | Patient Name: BRAINNA VITAL Date of : 1945 | | | Performing Physician: SEE DANGELO MD | | | | | | ------REPORT ADDENDED------ INDICATIONS | | | CONCLUSIONS 1. This was a technically difficult study | | | with suboptimal views. 2. Overall left ventricular systolic function | | | is moderate-severely impaired with, an EF between 30 - 35 %. 3. The | | | right ventricle is mildly enlarged, but right ventricular systolic | | | function is normal. 4. The left atrium is markedly dilated. 5. There | | | is severe aortic stenosis present. 6. There is moderate pulmonary | | | hypertension. The right ventricular systolic pressure (pulmonary | | | artery systolic pressure), as measured by Doppler, is 55 mm Hg. | | | FINDINGS -------- Study: This was a technically difficult study with | | | suboptimal views. Left Ventricle: Overall left ventricular systolic | | | function is moderate-severely impaired with, an EF between 30 - 35 %. | | | Left Ventricle: The left ventricle cavity size is normal. Left | | | Ventricle: Left ventricular wall thickness is normal. Left Ventricle: | | | The following regional wall motion abnormalities include: Left | | | Ventricle: basal anteroseptal - moderately hypokinetic; Left | | | Ventricle: mid anteroseptal - severely hypokinetic; Left Ventricle: | | | mid inferoseptal - moderately hypokinetic; Left Ventricle: mid | | | inferior - mildly hypokinetic; Left Ventricle: basal inferolateral - | | | dyskinetic; Left Ventricle: mid anterolateral - severely hypokinetic; | | | Left Ventricle: apical septum - severely hypokinetic; Left | | | Ventricle: inferior apex - mildly hypokinetic; Left Ventricle: apical | | | lateral -severely hypokinetic; Left Ventricle: apex - severely | | | hypokinetic; The mid anterior wall was not well visualized. Left | | | Ventricle: The remaining left ventricular segments contract normally. | | | Right Ventricle: The right ventricle is mildly enlarged measuring | | | between 3.4 - 3.7 cm. Right Ventricle: The right ventricular systolic | | | function is normal. Left Atrium: The left atrium is markedly | | | dilated. Right Atrium: The right atrium is normal in size. Aortic | | | Valve: The aortic valve was not well visualized. Aortic Valve: The | | | aortic valve is severely calcified. Aortic Valve: There is severe | | | aortic stenosis present. Aortic Valve: The aortic valve area by | | | continuity equation is 0.96 cm?, Aortic Valve: The maximum velocity | | | across the aortic valve is 4.1 m/s Aortic Valve: The maximum pressure | | | gradient across the aortic valve is 57 mmHg . Aortic Valve: The mean | | | gradient across the aortic valve is 39 mmHg. Mitral Valve: The | | | mitral valve is normal. Mitral Valve: Mild mitral regurgitation is | | | present. Tricuspid Valve: Mild tricuspid regurgitation present. | | | Tricuspid Valve: There is moderate pulmonary hypertension. Tricuspid | | | Valve: The right ventricular systolic pressure (pulmonary artery | | | systolic pressure), as measured by Doppler, is 55 mm Hg. IVC/Hepatic | | | Veins: The IVC is dilated (>2.5cm) and does not collapse with sniff, | | | consistent with central venous pressures of >20mmHg. MEASUREMENTS | | | IVC: 2.68 cm LA Major: 5.41 cm LVOT Diam: | | | 2.12 cm RA Major: 4.76 cm RVIDd: 3.70 cm LAESV(A-L): 48.76 | | | ml LAAs A2C: 15.95 cm2 LAESV A-L A2C: 46.10 ml LAESV MOD | | | A2C: 43.40 ml LALs A2C: 4.68 cm LAAs A4C: 16.87 cm2 LAESV | | | A-L A4C: 49.93 ml LAESV MOD A4C: 47.22 ml LALs A4C: 4.83 cm | | | IVC diameter: 3.00 cm IVC collapse: 1.74 cm IVC % collapse: | | | 38.92 % HR: 90.38 BPM AV maxP.53 mmHg AV meanPG: | | | 38.77 mmHg AV Vmax: 4.12 m/s AV Vmean: 3.01 m/s AV VTI: | | | 82.82 cm ZEKE Vmax: 0.94 cm2 ZEKE (VTI): 0.96 cm2 LVCO Dopp: | | | 7.18 l/min HR: 89.97 BPM LVOT maxP.91 mmHg LVOT meanPG: | | | 3.03 mmHg LVSV Dopp: 79.80 ml LVOT Vmax: 1.10 m/s LVOT | | | Vmean: 0.82 m/s LVOT VTI: 22.46 cm TR maxP.92 mmHg TR | | | Vmax: 2.95 m/s TV A Doe: 0.59 m/s TV Dec Gibson: 5.92 m/s2 | | | TV Dec Time: 104.14 ms TV E Doe: 0.61 m/s TV E/A Ratio: | | | 1.04 Border Machine Operator: DONY Authenticated by: See Dangelo Report | | | Date/Time: -- [id number] | | + + + + + | Procedure Note | + + | Ramiro Rad Conversion - 01/21/2019 4:53 PM PDT Patient Name: Neal VITAL | | of : 1945 Performing Physician: SEE DANGELO, | | MD ------REPORT | | ADDENDED------INDICATIONS CONCLUSIONS 1. This was a technically | | difficult study with suboptimal views.2. Overall left ventricular systolic function is | | moderate-severely impaired with, an EF between 30 - 35 %.3. The right ventricle is | | mildly enlarged, but right ventricular systolic function is normal.4. The left atrium is | | markedly dilated.5. There is severe aortic stenosis present.6. There is moderate | | pulmonary hypertension. The right ventricular systolic pressure (pulmonary artery | | systolic pressure), as measured by Doppler, is 55 mm Hg. FINDINGS--------Study: This was | | a technically difficult study with suboptimal views.Left Ventricle: Overall left | | ventricular systolic function is moderate-severely impaired with, an EF between 30 - 35 | | %.Left Ventricle: The left ventricle cavity size is normal.Left Ventricle: Left | | ventricular wall thickness is normal.Left Ventricle: The following regional wall motion | | abnormalities include:Left Ventricle: basal anteroseptal - moderately hypokinetic;Left | | Ventricle: mid anteroseptal - severely hypokinetic;Left Ventricle: mid inferoseptal - | | moderately hypokinetic;Left Ventricle: mid inferior - mildly hypokinetic;Left Ventricle: | | basal inferolateral - dyskinetic;Left Ventricle: mid anterolateral - severely | | hypokinetic;Left Ventricle: apical septum - severely hypokinetic;Left Ventricle: | | inferior apex - mildly hypokinetic;Left Ventricle: apical lateral -severely | | hypokinetic;Left Ventricle: apex - severely hypokinetic; The mid anterior wall was not | | well visualized.Left Ventricle: The remaining left ventricular segments contract | | normally.Right Ventricle: The right ventricle is mildly enlarged measuring between 3.4 - | | 3.7 cm.Right Ventricle: The right ventricular systolic function is normal.Left Atrium: | | The left atrium is markedly dilated.Right Atrium: The right atrium is normal in | | size.Aortic Valve: The aortic valve was not well visualized.Aortic Valve: The aortic | | valve is severely calcified.Aortic Valve: There is severe aortic stenosis present.Aortic | | Valve: The aortic valve area by continuity equation is 0.96 cm?,Aortic Valve: The | | maximum velocity across the aortic valve is 4.1 m/sAortic Valve: The maximum pressure | | gradient across the aortic valve is 57 mmHg .Aortic Valve: The mean gradient across the | | aortic valve is 39 mmHg.Mitral Valve: The mitral valve is normal.Mitral Valve: Mild | | mitral regurgitation is present.Tricuspid Valve: Mild tricuspid regurgitation | | present.Tricuspid Valve: There is moderate pulmonary hypertension.Tricuspid Valve: The | | right ventricular systolic pressure (pulmonary artery systolic pressure), as measured by | | Doppler, is 55 mm Hg.IVC/Hepatic Veins: The IVC is dilated (>2.5cm) and does not | | collapse with sniff, consistent with central venous pressures of >20mmHg. | | MEASUREMENTS IVC: 2.68 cmLA Major: 5.41 cmLVOT Diam: 2.12 cmRA Major: | | 4.76 cmRVIDd: 3.70 cmLAESV(A-L): 48.76 mlLAAs A2C: 15.95 [id number] A-L A2C: | | 46.10 mlLAESV MOD A2C: 43.40 mlLALs A2C: 4.68 cmLAAs A4C: 16.87 [id number] A-L A4C: | | 49.93 mlLAESV MOD A4C: 47.22 mlLALs A4C: 4.83 cmIVC diameter: 3.00 cmIVC | | collapse: 1.74 cmIVC % collapse: 38.92 %HR: 90.38 BPMAV maxP.53 mmHgAV | | meanP.77 mmHgAV Vmax: 4.12 m/Apoorva Vmean: 3.01 m/Apoorva VTI: 82.82 cmAVA Vmax: | | 0.94 cm2AVA (VTI): 0.96 no6ULLS Dopp: 7.18 l/minHR: 89.97 BPMLVOT maxP.91 | | mmHgLVOT meanP.03 mmHgLVSV Dopp: 79.80 mlLVOT Vmax: 1.10 m/sLVOT Vmean: 0.82 | | m/sLVOT VTI: 22.46 cmTR maxP.92 mmHgTR Vmax: 2.95 m/sTV A Doe: 0.59 m/sTV | | Dec Gibson: 5.92 m/s2TV Dec Time: 104.14 msTV E Doe: 0.61 m/sTV E/A Ratio: 1.04 | | Border Machine Operator: BRITNIuthenticated by: See Simons Date/Time: -- | | [id number] IMPRESSION: 1. This was a technically difficult study with | | suboptimal views.2. Overall left ventricular systolic function is moderate-severely | | impaired with, an EF between 30 - 35 %.3. The right ventricle is mildly enlarged, but | | right ventricular systolic function is normal.4. The left atrium is markedly dilated.5. | | There is severe aortic stenosis present.6. There is moderate pulmonary hypertension. | | The right ventricular systolic pressure (pulmonary artery systolic pressure), as | | measured by Doppler, is 55 mm Hg. | |Tricuspid Valve: Mild tricuspid regurgitation present. | |Tricuspid Valve: There is moderate pulmonary hypertension. | |Tricuspid Valve: The right ventricular systolic pressure (pulmonary artery systolic pressur e), as measured by Doppler, is 55 mm Hg. | |IVC/Hepatic Veins: The IVC is dilated (>2.5cm) and does not collapse with sniff, consisten t with central venous pressures of >20mmHg. | | | |MEASUREMENTS | | | |IVC: 2.68 cm | |LA Major: 5.41 cm | |LVOT Diam: 2.12 cm | |RA Major: 4.76 cm | |RVIDd: 3.70 cm | |LAESV(A-L): 48.76 ml | |LAAs A2C: 15.95 cm2 | |LAESV A-L A2C: 46.10 ml | |LAESV MOD A2C: 43.40 ml | |LALs A2C: 4.68 cm | |LAAs A4C: 16.87 cm2 | |LAESV A-L A4C: 49.93 ml | |LAESV MOD A4C: 47.22 ml | |LALs A4C: 4.83 cm | |IVC diameter: 3.00 cm | |IVC collapse: 1.74 cm | |IVC % collapse: 38.92 % | |HR: 90.38 BPM | |AV maxP.53 mmHg | |AV meanP.77 mmHg | |AV Vmax: 4.12 m/s | |AV Vmean: 3.01 m/s | |AV VTI: 82.82 cm | |ZEKE Vmax: 0.94 cm2 | |ZEKE (VTI): 0.96 cm2 | |LVCO Dopp: 7.18 l/min | |HR: 89.97 BPM | |LVOT maxP.91 mmHg | |LVOT meanP.03 mmHg | |LVSV Dopp: 79.80 ml | |LVOT Vmax: 1.10 m/s | |LVOT Vmean: 0.82 m/s | |LVOT VTI: 22.46 cm | |TR maxP.92 mmHg | |TR Vmax: 2.95 m/s | |TV A Doe: 0.59 m/s | |TV Dec Gibson: 5.92 m/s2 | |TV Dec Time: 104.14 ms | |TV E Doe: 0.61 m/s | |TV E/A Ratio: 1.04 | | | |Border Machine Operator: KVW | |Authenticated by: See Dangelo | |Report Date/Time: -- [id number] | | | |IMPRESSION: | |1. This was a technically difficult study with suboptimal views. | |2. Overall left ventricular systolic function is moderate-severely impaired with, an EF bet ween 30 - 35 %. | |3. The right ventricle is mildly enlarged, but right ventricular systolic function is meseret l. | |4. The left atrium is markedly dilated. | |5. There is severe aortic stenosis present. | |6. There is moderate pulmonary hypertension. The right ventricular systolic pressure (pulm onary artery systolic pressure), as measured by Doppler, is 55 mm Hg. | + + POC Glucose (03/05/2016 11:16 AM PDT) + + + + + + | Component | Value | Ref Range | Performed | Pathologist | | | | | At | Signature | + + + + + + | Glucose, | 251 (H)Comment: Testing | 65 - 99 mg/dL | EXTERNAL | | | Fingerstick | [place] [facility] [place] | | [place] | | | | [address];[place] | | | | | | [address] | | | | + + + + + + + + | Specimen | + + | | + + + +---------+ + + | Performing | Address | City/State/Zipcode | Phone Number | | Organization | | | | + +---------+ + + | EXTERNAL LAB | | | | + +---------+ + + POC Glucose (03/05/2016 5:28 AM PDT) + + + + + + | Component | Value | Ref Range | Performed | Pathologist | | | | | At | Signature | + + + + + + | Glucose, | 151 (H)Comment: Testing | 65 - 99 mg/dL | EXTERNAL | | | Fingerstick | performed at [facility] [place] | | LAB | | | | [address];[place], [place] | | | | | | [address] | | | | + + + + + + + + | Specimen | + + | | + + + +---------+ + + | Performing | Address | City/State/Zipcode | Phone Number | | Organization | | | | + +---------+ + + | EXTERNAL LAB | | | | + +---------+ + + External Lab: CBC (03/05/2016 4:04 AM PDT) + + + + + + | Component | Value | Ref Range | Performed | Pathologist | | | | | At | Signature | + + + + + + | WBC | 7.43Comment: Testing | 3.80 - 11.00 | EXTERNAL | | | | performed at [facility], [address] | K/uL | LAB | | | | [address], | | | | | | [place] [address] | | | | + + + + + + | Non- | 2.94 (L)Comment: Testing | 4.20 - 5.70 | EXTERNAL | | | Red Blood | performed at [facility], [address] | M/uL | LAB | | | Cells | [address], | | | | | Counted | [place] [address] | | | | + + + + + + | Hemoglobin | 8.6 (L)Comment: Testing | 13.2 - 17.0 | EXTERNAL | | | | performed at [facility], [address] | g/dL | LAB | | | | [address], | | | | | | [place] [address] | | | | + + + + + + | Hematocrit, | 25.0 (L)Comment: Testing | 39.0 - 50.0 % | EXTERNAL | | | POC | performed at [facility], [address] | | LAB | | | | [address], | | | | | | [place] [address] | | | | + + + + + + | MCV | 85.1Comment: Testing | 80.0 - 100.0 fl | EXTERNAL | | | | performed at [facility], [address] | | LAB | | | | [address], | | | | | | [place] [address] | | | | + + + + + + | MCH | 29.1Comment: Testing | 27.0 - 34.0 pg | EXTERNAL | | | | performed at [facility], [address] | | LAB | | | | [address], | | | | | | [place] [address] | | | | + + + + + + | MCHC | 34.2Comment: Testing | 32.0 - 35.5 | EXTERNAL | | | | performed at [facility], [address] | g/dL | LAB | | | | [address], | | | | | | [place] [address] | | | | + + + + + + | RDW-CV | 43.8Comment: Testing | 37 - 53 fl | EXTERNAL | | | | performed at [facility], [address] | | LAB | | | | [address], | | | | | | [place] [address] | | | | + + + + + + | Platelet | 108 (L)Comment: Testing | 150 - 400 K/uL | EXTERNAL | | | Count | performed at [facility], [address] | | LAB | | | Plasma | [address], | | | | | | [place] [address] | | | | + + + + + + | MPV | 10.7Comment: Testing | fl | EXTERNAL | | | | performed at [facility], [address] | | LAB | | | | [address], | | | | | | [place] [address] | | | | + + + + + + | Differentia | AUTOMATEDComment: | | EXTERNAL | | | l Type | Testing performed at | | LAB | | | | [facility], [address] | | | | | | [place] | | | | | | [address] | | | | + + + + + + | % Segmented | 80.72Comment: Testing | % | EXTERNAL | | | | performed at [facility], [address] | | LAB | | | Neutrophils | [address], | | | | | | [place] [address] | | | | + + + + + + | % | 7.58Comment: Testing | % | EXTERNAL | | | Lymphocytes | performed at [facility], [address] | | LAB | | | | [address], | | | | | | [place] [address] | | | | + + + + + + | % Monocytes | 10.81Comment: Testing | % | EXTERNAL | | | | performed at [facility], [address] | | LAB | | | | [address], | | | | | | [place] [address] | | | | + + + + + + | % | 0.41Comment: Testing | % | EXTERNAL | | | Eosinophils | performed at [facility], [address] | | LAB | | | | [address], | | | | | | [place] [address] | | | | + + + + + + | % Basophils | 0.48Comment: Testing | % | EXTERNAL | | | | performed at [facility], [address] | | LAB | | | | [address], | | | | | | [place] [address] | | | | + + + + + + | Absolute | 6.00Comment: Testing | 1.90 - 7.40 | EXTERNAL | | | Segmented | performed at [facility], [address] | K/uL | LAB | | | Neutrophils | [address], | | | | | | [place] [address] | | | | + + + + + + | Absolute | 0.56 (L)Comment: Testing | 1.00 - 3.90 | EXTERNAL | | | Lymphocytes | performed at [facility], [address] | K/uL | LAB | | | | [address], | | | | | | [place], [place] [address] | | | | + + + + + + | Absolute | 0.80Comment: Testing | 0.00 - 0.80 | EXTERNAL | | | Monocytes | performed at [facility], [address] | K/uL | LAB | | | | [address], | | | | | | [place] [address] | | | | + + + + + + | Absolute | 0.03Comment: Testing | 0.00 - 0.50 | EXTERNAL | | | Eosinophils | performed at [facility], [address] | K/uL | LAB | | | | [address], | | | | | | [place] [address] | | | | + + + + + + | Absolute | 0.04Comment: Testing | 0.00 - 0.10 | EXTERNAL | | | Basophils | performed at [facility], [address] | K/uL | LAB | | | | [address], | | | | | | [place] [address] | | | | + + + + + + + + | Specimen | + + | Blood specimen | | (specimen) | + + + +---------+ + + | Performing | Address | City/State/Zipcode | Phone Number | | Organization | | | | + +---------+ + + | EXTERNAL LAB | | | | + +---------+ + + Lipid Panel (03/05/2016 4:04 AM PDT) + + + + + + | Component | Value | Ref Range | Performed | Pathologist | | | | | At | Signature | + + + + + + | Cholesterol | 113Comment: Testing | mg/dL | EXTERNAL | | | | performed at [facility], [address] | | LAB | | | | [address], | | | | | | [place] [address] | | | | + + + + + + | Triglycerid | 149Comment: Testing | mg/dL | EXTERNAL | | | es | performed at [facility], [address] | | LAB | | | | [address], | | | | | | [place] [address] | | | | + + + + + + | HDL | 41Comment: Testing | mg/dL | EXTERNAL | | | | performed at [facility], [address] | | LAB | | | | [address], | | | | | | [place] [address] | | | | + + + + + + | LDL, | 42Comment: Testing | mg/dL | EXTERNAL | | | Calculated | performed at [facility], [address] | | LAB | | | | [address], | | | | | | [place] [address] | | | | + + + [...] + +---------+ + + Comprehensive Metabolic Panel (03/05/2016 4:04 AM PDT) + + + + + + | Component | Value | Ref Range | Performed | Pathologist | | | | | At | Signature | + + + + + + | Na | 139Comment: Testing | 135 - 145 | EXTERNAL | | | | performed at [facility], [address] | mmol/L | LAB | | | | [address], | | | | | | [place] [address] | | | | + + + + + + | K | 4.1Comment: Testing | 3.5 - 4.9 | EXTERNAL | | | | performed at [facility], [address] | mmol/L | LAB | | | | [address], | | | | | | [place] [address] | | | | + + + + + + | Cl | 104Comment: Testing | 99 - 109 mmol/L | EXTERNAL | | | | performed at [facility], [address] | | LAB | | | | [address], | | | | | | [place] [address] | | | | + + + + + + | CO2 | 22 (L)Comment: Testing | 23 - 32 mmol/L | EXTERNAL | | | | performed at [facility], [address] | | LAB | | | | [address], | | | | | | [place] [address] | | | | + + + + + + | Anion Gap | 17Comment: Testing | 5 - 20 mmol/L | EXTERNAL | | | | performed at [facility], [address] | | LAB | | | | [address], | | | | | | [place] [address] | | | | + + + + + + | Glucose, | 148 (H)Comment: Testing | 65 - 99 mg/dL | EXTERNAL | | | Fasting | performed at [facility], [address] | | LAB | | | | [address], | | | | | | [place] [address] | | | | + + + + + + | BUN | 55 (H)Comment: Testing | 8 - 25 mg/dL | EXTERNAL | | | | performed at [facility], [address] | | LAB | | | | [address], | | | | | | [place] [address] | | | | + + + + + + | Creatinine | 6.9 (H)Comment: Testing | 0.70 - 1.30 | EXTERNAL | | | | performed at [facility], [address] | mg/dL | LAB | | | | [address], | | | | | | [place] [address] | | | | + + + + + + | BUN/Creatin | 8Comment: Testing | | EXTERNAL | | | ine Ratio | performed at [facility], [address] | | LAB | | | | [address], | | | | | | [place] [address] | | | | + + + + + + | Calcium | 8.5Comment: Testing | 8.5 - 10.5 | EXTERNAL | | | | performed at [facility], [address] | mg/dL | LAB | | | | [address], | | | | | | [place] [address] | | | | + + + + + + | Protein, | 5.9 (L)Comment: Testing | 6.3 - 8.2 g/dL | EXTERNAL | | | Total | performed at [facility], [address] | | LAB | | | | [address], | | | | | | [place] [address] | | | | + + + + + + | Albumin | 2.6 (L)Comment: Testing | 3.3 - 4.8 g/dL | EXTERNAL | | | | performed at [facility], [address] | | LAB | | | | [address], | | | | | | [place] [address] | | | | + + + + + + | Globulin | 3.3Comment: Testing | 1.3 - 4.9 g/dL | EXTERNAL | | | | performed at [facility], [address] | | LAB | | | | [address], | | | | | | [place] [address] | | | | + + + + + + | A/G Ratio | 0.8 (L)Comment: Testing | 1.0 - 2.4 | EXTERNAL | | | | performed at [facility], [address] | | LAB | | | | [address], | | | | | | [place] [address] | | | | + + + + + + | Bilirubin | 0.3Comment: Testing | 0.1 - 1.5 mg/dL | EXTERNAL | | | Total | performed at [facility], [address] | | LAB | | | | [address], | | | | | | [place] [address] | | | | + + + + + + | ALP, | 37Comment: Testing | 35 - 115 U/L | EXTERNAL | | | External | performed at [facility], [address] | | LAB | | | | [address], | | | | | | [place] [address] | | | | + + + + + + | AST | 27Comment: Testing | 10 - 45 U/L | EXTERNAL | | | | performed at [facility], [address] | | LAB | | | | [address], | | | | | | [place] [address] | | | | + + + + + + | ALT | 9 (L)Comment: Testing | 10 - 65 U/L | EXTERNAL | | | | performed at [facility], [address] | | LAB | | | | [address], | | | | | | [place] [address] | | | | + + + + + + | Estimated | 8 (L)Comment: GFR <60: | mL/min/1.73m2 | EXTERNAL [...] | | | | | | at [facility], [address] | | | | | | [address], | | | | | | [place] [address] | | | | + + + + + + + + | Specimen | + + | Blood specimen | | (specimen) | + + + +---------+ + + | Performing | Address | City/State/Zipcode | Phone Number | | Organization | | | | + +---------+ + + | EXTERNAL LAB | | | | + +---------+ + + Hepatitis B Surface Ag (03/04/2016 9:21 PM PDT) + + + + + + | Component | Value | Ref Range | Performed | Pathologist | | | | | At | Signature | + + + + + + | HEP B | NON REACTIVEComment: | | EXTERNAL | | | SURFACE | Testing performed at | | LAB | | | ANTIBODY | [facility], [address] | | | | | | [place] | | | | | | [address] | | | | + + + + + + + + | Specimen | + + | Blood specimen | | (specimen) | + + + +---------+ + + | Performing | Address | City/State/Zipcode | Phone Number | | Organization | | | | + +---------+ + + | EXTERNAL LAB | | | | + +---------+ + + POC Glucose (03/04/2016 9:17 PM PDT) + + + + + + | Component | Value | Ref Range | Performed | Pathologist | | | | | At | Signature | + + + + + + | Glucose, | 144 (H)Comment: Testing | 65 - 99 mg/dL | EXTERNAL | | | Fingerstick | performed at [facility] [place] | | LAB | | | | [address];[place], [place] | | | | | | [address] | | | | + + + + + + + + | Specimen | + + | | + + + +---------+ + + | Performing | Address | City/State/Zipcode | Phone Number | | Organization | | | | + +---------+ + + | EXTERNAL LAB | | | | + +---------+ + + POC Glucose (03/04/2016 6:42 PM PDT) + + + + + + | Component | Value | Ref Range | Performed | Pathologist | | | | | At | Signature | + + + + + + | Glucose, | 174 (H)Comment: Testing | 65 - 99 mg/dL | EXTERNAL | | | Fingerstick | performed at [facility] [place] | | LAB | | | | [address];[place] | | | | | | [address] | | | | + + + + + + + + | Specimen | + + | | + + + +---------+ + + | Performing | Address | City/State/Zipcode | Phone Number | | Organization | | | | + +---------+ + + | EXTERNAL LAB | | | | + +---------+ + + XR Chest 1 Vw (03/04/2016 6:31 PM PDT) + + | Specimen | + + | | + + + + + | Impressions | Performed At | + + + | 1. Moderate, mildly progressive bilateral perihilar pulmonary | | | edema. 2. Increasing opacity of the LEFT lung base suggesting | | | pneumonia and/or atelectasis and/or small pleural effusion. 3. | | | Persistent mild cardiomegaly. 4. New central venous dialysis | | | catheter, without complication. | | + + + + + + | Narrative | Performed At | + + + | [facility] XR CHEST 1 VIEW 03/04/2016 6:31 PM History: | | | 70 years. Male. Progressive dyspnea. New dialysis catheter | | | placement. Renal failure. Congestive heart failure. Technique: | | | AP portable upright technique was performed at 1825 hours. | | | Comparison: 03/03/16 Findings: There is increasing opacification | | | at the LEFT lung base, now completely obscuring the LEFT | | | hemidiaphragm. Perihilar moderately dense bilateral pulmonary | | | infiltrates are again noted, mildly progressive, suggesting | | | progressive pulmonary edema. The RIGHT lung base is clear. No | | | visible RIGHT pleural effusion. Mild cardiomegaly is unchanged. | | | The pulmonary vasculature is obscured. A RIGHT internal jugular | | | dialysis catheter is visualized with its tip at the junction of the | | | superior vena cava and RIGHT atrium. | | + + + + + | Procedure Note | + + | Ramiro, Rad Conversion - 01/21/2019 4:53 PM PDT [facility] VITAL[facility]ASON CHEST 1 | | VIEW03/04/2016 6:31 PM History: 70 years. Male. Progressive dyspnea. New dialysis | | catheter placement. Renal failure. Congestive heart failure. Technique: AP portable | | upright technique was performed at 1825 hours.Comparison: 03/03/16 Findings: There is | | increasing opacification at the LEFT lung base, now completely obscuring the LEFT | | hemidiaphragm. Perihilar moderately dense bilateral pulmonary infiltrates are again | | noted, mildly progressive, suggesting progressive pulmonary edema. The RIGHT lung base | | is clear. No visible RIGHT pleural effusion. Mild cardiomegaly is unchanged. The | | pulmonary vasculature is obscured. A RIGHT internal jugular dialysis catheter is | | visualized with its tip at the junction of the superior vena cava and RIGHT atrium. | | IMPRESSION: 1. Moderate, mildly progressive bilateral perihilar pulmonary edema.2. | | Increasing opacity of the LEFT lung base suggesting pneumonia and/or atelectasis and/or | | small pleural effusion.3. Persistent mild cardiomegaly.4. New central venous dialysis | | catheter, without complication. Electronically signed by Mandeep Carr MD on | | 03/04/2016 6:44 PM | |IMPRESSION: | |1. Moderate, mildly progressive bilateral perihilar pulmonary edema. | |2. Increasing opacity of the LEFT lung base suggesting pneumonia and/or atelectasis and/or small pleural effusion. | |3. Persistent mild cardiomegaly. | |4. New central venous dialysis catheter, without complication. | | | | | + + IR Placement Tunneled CV Cath (03/04/2016 5:58 PM PDT) + + | Specimen | + + | | + + + + + | Narrative | Performed At | + + + | DATE OF PROCEDURE: 03/04/2016 SURGEON: Efrain Navarro MD SALES PROMOTION MANAGER: | | | None PREOPERATIVE DIAGNOSIS: 1. End stage renal disease requiring | | | hemodialysis POSTOPERATIVE DIAGNOSIS: Same PROCEDURES: | | | 1.Percutaneous access of right internal jugular vein under ultrasound | | | guidance and placement of tunneled hemodialysis catheter | | | ANESTHESIA: Local anesthesia and conscious sedation (1mg Versed, | | | 75mcg Fentanyl) RADIATION DOSE: 10mGy FLUOROSCOPY TIME: 0.5 | | | minute SPECIMEN: None ESTIMATED BLOOD LOSS: Less Than 10 ml | | | (Minimal) BLOOD ADMINISTERED: None COMPLICATIONS: None | | | CONDITION: Stable INDICATIONS: This is a 70 y.o. male patient | | | with end stage renal disease requiring hemodialysis.The patient has | | | been evaluated by his printed circuit layout taper who determined that he is a | | | suitable candidate to undergo hemodialysis. The patient understands | | | the benefit and purpose of the planned procedure of tunneled | | | hemodialysis catheter insertion is to allow the patient to receive | | | hemodialysis while waiting for a alf hemodialysis access such as | | | arteriovenous venous fistula or graft to be created. The patient | | | also understands the risks and complications of this procedure which | | | include bleeding, vessel perforation, infection, deep vein thrombosis, | | | catheter malfunction, nerve or arterial injury, and pneumothorax. The | | | patient has accepted these benefits and risks and agreed to undergo | | | the planned procedure. PROCEDURE IN DETAIL: The patient was | | | taken to the operating room and placed on the table in the supine | | | position. The patient's right neck and chest region was prepped | | | sterilely and then draped in a standard fashion. The patient was given | | | local and conscious sedation anesthesia. Appropriate time out was | | | performed whereby the patient and site of surgery were identified. | | | Percutaneous access of the right internal jugular vein was obtained | | | under ultrasound guidance. A 0.035' guidewire was placed in the | | | right internal jugular vein and confirmed under fluoroscopy guidance. | | | The skin tract was dilated with serial dilators. A peel away sheath | | | was inserted over the guidewire. A hemodialysis catheter was tunneled | | | under the skin from the chest to the neck. Next the guidewire and | | | inner dilator of the peel away sheath was removed. The tunneled | | | hemodialysis catheter was placed into the internal jugular vein over a | | | peel away sheath. The catheter tip was positioned in the superior | | | vena cava and the position was confirmed with fluoroscopy. | | | Heparinized saline solution was injected in the double lumen tunneled | | | hemodialysis catheter and the catheter was securely anchored to the | | | skin using 3-0 nylon sutures. Standard dressing was applied over the | | | tunneled hemodialysis catheter in the usual fashion. Hemostasis was | | | achieved without complications. The patient tolerated the procedure | | | well and suffered no complications. I was present throughout the | | | entire procedure. Electronically signed by Efrain Navarro on | | | 03/04/2016 6:43 PM | | + + + + + | Procedure Note | + + | Elmo Rubio - 01/21/2019 4:53 PM PDT DATE OF PROCEDURE: 03/04/2016SURGEON: | | TY EdwardsISTANT: None PREOPERATIVE DIAGNOSIS:1. End stage renal disease | | requiring hemodialysis POSTOPERATIVE DIAGNOSIS: Same PROCEDURES:1.Percutaneous access of | | right internal jugular vein under ultrasound guidance and placement of tunneled | | hemodialysis catheter ANESTHESIA: Local anesthesia and conscious sedation (1mg Versed, | | 75mcg Fentanyl) RADIATION DOSE: 10mGy FLUOROSCOPY TIME: 0.5 minute SPECIMEN: None | | ESTIMATED BLOOD LOSS: Less Than 10 ml (Minimal) BLOOD ADMINISTERED: None COMPLICATIONS: | | None CONDITION: Stable INDICATIONS: This is a 70 y.o. male patient with end stage renal | | disease requiring hemodialysis.The patient has been evaluated by his printed circuit layout taper who | | determined that he is a suitable candidate to undergo hemodialysis. The patient | | understands the benefit and purpose of the planned procedure of tunneled hemodialysis | | catheter insertion is to allow the patient to receive hemodialysis while waiting for a | | exterminator termite hemodialysis access such as arteriovenous venous fistula or graft to be | | created. The patient also understands the risks and complications of this procedure | | which include bleeding, vessel perforation, infection, deep vein thrombosis, catheter | | malfunction, nerve or arterial injury, and pneumothorax. The patient has accepted these | | benefits and risks and agreed to undergo the planned procedure. PROCEDURE IN DETAIL: | | The patient was taken to the operating room and placed on the table in the supine | | position. The patient's right neck and chest region was prepped sterilely and then | | draped in a standard fashion. The patient was given local and conscious sedation | | anesthesia. Appropriate time out was performed whereby the patient and site of surgery | | were identified. Percutaneous access of the right internal jugular vein was obtained | | under ultrasound guidance. A 0.035' guidewire was placed in the right internal jugular | | vein and confirmed under fluoroscopy guidance. The skin tract was dilated with serial | | dilators. A peel away sheath was inserted over the guidewire. A hemodialysis catheter | | was tunneled under the skin from the chest to the neck. Next the guidewire and inner | | dilator of the peel away sheath was removed. The tunneled hemodialysis catheter was | | placed into the internal jugular vein over a peel away sheath. The catheter tip was | | positioned in the superior vena cava and the position was confirmed with fluoroscopy. | | Heparinized saline solution was injected in the double lumen tunneled hemodialysis | | catheter and the catheter was securely anchored to the skin using 3-0 nylon sutures. | | Standard dressing was applied over the tunneled hemodialysis catheter in the usual | | fashion. Hemostasis was achieved without complications. The patient tolerated the | | procedure well and suffered no complications. I was present throughout the entire | | procedure. | |PROCEDURE IN DETAIL: The patient was taken to the operating room and placed on the table in the supine position. The patient's right neck and chest region was prepped sterilely and th en draped in a standard fashion. The patient was given local and | |conscious sedation anesthesia. Appropriate time out was performed whereby the patient and s ite of surgery were identified. Percutaneous access of the right internal jugular vein was o btained under ultrasound guidance. A 0.035' guidewire was placed in | |the right internal jugular vein and confirmed under fluoroscopy guidance. The skin tract wa s dilated with serial dilators. A peel away sheath was inserted over the guidewire. A hemodi alysis catheter was tunneled under | |the skin from the chest to the neck. | | Next the guidewire and inner dilator of the peel away sheath was removed. The tunneled hem odialysis catheter was placed into the internal jugular vein over a peel away sheath. The ca theter tip was positioned in the superior vena cava and the position | |was confirmed with fluoroscopy. Heparinized saline solution was injected in the double lume n tunneled hemodialysis catheter and the catheter was securely anchored to the skin using 3- 0 nylon sutures. Standard dressing was applied over the tunneled | |hemodialysis catheter in the usual fashion. Hemostasis was achieved without complications. The patient tolerated the procedure well and suffered no complications. I was present throug hout the entire procedure. | | | | | + + US Guided Vascular Access (03/04/2016 5:58 PM PDT) + + | Specimen | + + | | + + + + + | Narrative | Performed At | + + + | This Point of Care (POC) ultrasound image has been reviewed and | | | interpreted by the physician identified as the performing physician in | | | the associated interpretation and report. | | + + + + + | Procedure Note | + + | Elmo Rubio - 01/21/2019 4:53 PM PDT This Point of Care (POC) ultrasound | | image has been reviewed andinterpreted by the physician identified as the performing | | physician in theassociated interpretation and report. | | | + + POC Glucose (03/04/2016 4:03 PM PDT) + + + + + + | Component | Value | Ref Range | Performed | Pathologist | | | | | At | Signature | + + + + + + | Glucose, | 188 (H)Comment: Testing | 65 - 99 mg/dL | EXTERNAL | | | Fingerstick | [place] [facility] [place] | | [place] | | | | [address];[place], [place] | | | | | | [address] | | | | + + + + + + + + | Specimen | + + | | + + + +---------+ + + | Performing | Address | City/State/Zipcode | Phone Number | | Organization | | | | + +---------+ + + | EXTERNAL LAB | | | | + +---------+ + + POC Glucose (03/04/2016 11:21 AM PDT) + + + + + + | Component | Value | Ref Range | Performed | Pathologist | | | | | At | Signature | + + + + + + | Glucose, | 175 (H)Comment: Testing | 65 - 99 mg/dL | EXTERNAL | | | Fingerstick | [place] [facility] [place] | | LAB | | | | [address];[place] | | | | | | [address] | | | | + + + + + + + + | Specimen | + + | | + + + +---------+ + + | Performing | Address | City/State/Zipcode | Phone Number | | Organization | | | | + +---------+ + + | EXTERNAL LAB | | | | + +---------+ + + ECG 12 lead (03/04/2016 11:19 AM PDT) + + + + + + | Component | Value | Ref Range | Performed | Pathologist | | | | | At | Signature | + + + + + + | DIAGNOSIS: | Normal sinus rhythmLeft | | EXTERNAL | | | | ventricular hypertrophy | | LAB | | | | with repolarization | | | | | | abnormalityAbnormal | | | | | | ECGWhen compared with | | | | | | ECG of 03-MAR-2016 | | | | | | 09:11,Premature | | | | | | ventricular complexes | | | | | | are no longer PresentQT | | | | | | has shortenedConfirmed | | | | | | by ROMA CAMEJO ([id number]) on | | | | | | 03/04/2016 9:38:29 PM | | | | + + + + + + + + | Specimen | + + | | + + + + + | Narrative | Performed At | + + + | Historically converted procedure from [facility] Epic environment | EXTERNAL LAB | + + + + +---------+ + + | Performing | Address | City/State/Zipcode | Phone Number | | Organization | | | | + +---------+ + + | EXTERNAL LAB | | | | + +---------+ + + CV CARDIAC PROCEDURE (03/04/2016 10:31 AM PDT) + + | Specimen | + + | | + + + + + | Narrative | Performed At | + + + | | | | | | | [facility] Bret Oro MD INDICATIONS Acute | | | non-STEMI, severe aortic stenosis by recent echocardiography, stage 5 | | | chronic kidney disease, being initiated on hemodialysis within the | | | next day or two. PROCEDURES 1. Right heart catheterization. 2. | | | Left heart catheterization. 3. Selective bilateral coronary | | | angiographies. 4. Placement of a 6-Filipino Mynx device for hemostasis. | | | DESCRIPTION OF PROCEDURE After informed consent was obtained, he | | | was brought to the cardiac catheterization laboratory and prepped | | | and draped in a sterile fashion. He was given Versed 2 mg IV and | | | fentanyl 50 mcg IV for moderate anesthesia/sedation. The right | | | femoral area was infiltrated with 20 mL of 2% Xylocaine for local | | | anesthesia. Using modified Seldinger technique, an 8-Filipino | | | introducer sheath was inserted into the right common femoral vein | | | with a clean anterior entry. Via similar technique, a 6-Filipino | | | introducer sheath was inserted into the right common femoral artery | | | on the second attempt, as the first attempt was unsuccessful due to | | | probable entry into a side branch and the guidewire could not be | | | advanced. Hemostasis was achieved with manual pressure between the 2 | | | femoral artery cannulation attempts. A 7.5-Filipino Woodbury-Nile catheter | | | was then advanced through the venous sheath and under fluoroscopy, was | | | advanced through the right heart chambers, with typical waveforms | | | seen and pressures measured. Cardiac output was determined by | | | thermodilution technique, as the patient required supplemental oxygen | | | to breathe comfortably while lying flat, and Gera technique could | | | not be performed accurately. The Woodbury-Nile catheter was then removed. | | | With the use of a 0.035-inch J-tipped guidewire for catheter | | | advancement under direct fluoroscopic visualization, first a 5-Filipino | | | FL4, then a 6-Filipino FL35 catheter was advanced to the aortic root, | | | and both were able engage the left main coronary artery successfully, | | | but the left coronary system was underfilled. Via guidewire | | | exchange, a 6-Filipino AL1 catheter was used to perform selective | | | angiography of the [place] left coronary system in multiple views in a | | | standard fashion with better results, although the vessels were | | | still slightly underfilled. The same AL1 catheter was then used to | | | perform selective angiography of the [place] right coronary system in | | | multiple views in a standard fashion. The catheter was then withdrawn | | | slightly, and a 265 cm Wholey wire was advanced across the aortic | | | valve into the left ventricle. The AL1 catheter was removed over the | | | guidewire, and a 6-Filipino angled pigtail catheter was advanced into | | | the left ventricle. Following pressure measurements, the catheter was | | | pulled back across the aortic valve, with pressures measured, and | | | then removed. A nonselective angiogram through the right common | | | femoral arterial introducer sheath revealed entry above the | | | bifurcation of this vessel, with no evidence of bleeding and no | | | significant vascular disease at this level. The introducer sheath was | | | therefore removed, and hemostasis was achieved with application of a | | | 6-Filipino Mynx closure device. The venous sheath was removed, and | | | hemostasis was achieved with manual pressure. There were no | | | complications, and the patient tolerated the procedure well. | | | ESTIMATED BLOOD LOSS 50 mL. CONTRAST 105 mL of Isovue. | | | RESULTS HEMODYNAMICS 1. Right atrial pressure: Mean 8, A wave 12, V | | | wave 10. 2. Right ventricular pressure: 47/13. 3. Pulmonary artery | | | pressure: 36/19, mean pressure 27 mmHg. 4. Pulmonary capillary wedge | | | pressure: Mean 23 mmHg, A wave 24, V wave 34. 5. Left ventricular | | | systolic pressure: 145/37. 6. On pullback, central aortic pressure: | | | 105/59, mean 78 mmHg. 7. The body surface area calculated to 2.225 | | | m?. 8. By femoral dilution technique, cardiac output: 9.33 L/min. 9. | | | Cardiac index: 4.19 L/min/m?. 10. The aortic valve area is | | | calculated at 1.5 cm?. with a 40 mm [id number] gradient and 32 mm | | | mean gradient. 11. The aortic valve area index was calculated at 0.67 | | | cm?/m?. However, on echocardiography, the aortic valve area was | | | calculated at 0.9 cm?. CORONARY ARTERIES 1. Left main: This is a | | | large vessel arising from the left coronary cusp. It is mildly | | | calcified but otherwise normal and trifurcates at its distal end. 2. | | | Left anterior descending: This is a large, type 2 vessel which | | | reaches the apex. The proximal segment is free of disease. The | | | midsegment contains a long 60% area of diffuse disease between the | | | first and second diagonal branches. The remainder of the LAD is free | | | of disease and appears suitable to receive a bypass conduit. The | | | large first septal [facility] branch has a 60% concentric ostial | | | stenosis. The other septal [facility] branches are somewhat smaller | | | but normal. The large first diagonal branch contains an 80% proximal | | | stenosis. The second and third diagonal branches are quite small. 3. | | | Ramus intermedius: This is a medium-size vessel, with a 50% | | | concentric ostial stenosis. The remainder of the vessel is free of | | | disease. 4. Left circumflex: This is a medium-size, nondominant | | | vessel supplying a single obtuse marginal branch. The midsegment, | | | before the obtuse marginal branch, contains a concentric 40% to 50% | | | stenosis. 5. Right coronary artery: This is a large dominant vessel | | | arising from the right coronary cusp. The proximal segment is free of | | | disease. The early midsegment contains a 50% eccentric stenosis, | | | followed by a 70% concentric stenosis just before the origin of the | | | single large right ventricular branch. From this, there is an area of | | | diffuse disease in the midsegment that is judged to be 50% in | | | luminal diameter reduction. The distal RCA is free of disease. It | | | gives rise to a relatively small posterior descending artery, which | | | is normal, and a relatively small posterolateral ventricular branch, | | | which is normal. 6. Due to the elevated left ventricular | | | end-diastolic pressure, a left ventricular cineangiogram was not | | | performed. CONCLUSIONS 1. Via catheterization, there is only | | | moderate aortic stenosis. However, there was severe aortic stenosis | | | on his recent echocardiogram, and this will be repeated. 2. Moderate | | | 3-vessel coronary artery disease. 3. Mild pulmonary hypertension. | | | 4. Mild pulmonary artery stenosis. 5. Severe left ventricular | | | diastolic dysfunction. RECOMMENDATIONS He is to be started on | | | hemodialysis today or tomorrow. A repeat echocardiogram will be done. | | | I have asked Jesús Pantoja MD, from cardiothoracic surgery to see | | | him regarding possible aortic valve replacement and coronary artery | | | bypass surgery. Read by SEE DANGELO MD 03/04/2016 10:40 A | | | | | + + + + + | Procedure Note | + + | [facility] Rad Conversion - 01/27/2019 2:59 PM PDT | | | | | | [facility] | | Bret Oro MD | | | | INDICATIONS | | Acute non-STEMI, severe aortic stenosis by recent echocardiography, stage 5 | | chronic kidney disease, being initiated on hemodialysis within the next day | | or two. | | | | PROCEDURES | | 1. Right heart catheterization. | | 2. Left heart catheterization. | | 3. Selective bilateral coronary angiographies. | | 4. Placement of a 6-Filipino Mynx device for hemostasis. | | | | DESCRIPTION OF PROCEDURE | | After informed consent was obtained, he was brought to the cardiac | | catheterization laboratory and prepped and draped in a sterile fashion. He | | was given Versed 2 mg IV and fentanyl 50 mcg IV for moderate | | anesthesia/sedation. The right femoral area was infiltrated with 20 mL of | | 2% Xylocaine for local anesthesia. | | | | Using modified Seldinger technique, an 8-Filipino introducer sheath was | | inserted into the right common femoral vein with a clean anterior entry. | | Via similar technique, a 6-Filipino introducer sheath was inserted into the | | right common femoral artery on the second attempt, as the first attempt was | | unsuccessful due to probable entry into a side branch and the guidewire | | could not be advanced. Hemostasis was achieved with manual pressure between | | the 2 femoral artery cannulation attempts. A 7.5-Filipino Woodbury-Nile catheter | | was then advanced through the venous sheath and under fluoroscopy, was | | advanced through the right heart chambers, with typical waveforms seen and | | pressures measured. Cardiac output was determined by thermodilution | | technique, as the patient required supplemental oxygen to breathe | | comfortably while lying flat, and Gera technique could not be performed | | accurately. The [place]-Nile catheter was then removed. | | | | With the use of a 0.035-inch J-tipped guidewire for catheter advancement | | under direct fluoroscopic visualization, first a 5-Filipino FL4, then a | | 6-Filipino FL35 catheter was advanced to the aortic root, and both were able | | engage the left main coronary artery successfully, but the left coronary | | system was underfilled. Via guidewire exchange, a 6-Filipino AL1 catheter was | | used to perform selective angiography of the [place] left coronary system in | | multiple views in a standard fashion with better results, although the vessels | | were still slightly underfilled. The same AL1 catheter was then used to | | perform selective angiography of the [place] right coronary system in | | multiple views in a standard fashion. The catheter was then withdrawn | | slightly, and a 265 cm Wholey wire was advanced across the aortic valve | | into the left ventricle. The AL1 catheter was removed over the guidewire, | | and a 6-Filipino angled pigtail catheter was advanced into the left | | ventricle. Following pressure measurements, the catheter was pulled back | | across the aortic valve, with pressures measured, and then removed. A | | nonselective angiogram through the right common femoral arterial introducer | | sheath revealed entry above the bifurcation of this vessel, with no | | evidence of bleeding and no significant vascular disease at this level. The | | introducer sheath was therefore removed, and hemostasis was achieved with | | application of a 6-Filipino Mynx closure device. The venous sheath was | | removed, and hemostasis was achieved with manual pressure. There were no | | complications, and the patient tolerated the procedure well. | | | | ESTIMATED BLOOD LOSS | | 50 mL. | | | | CONTRAST | | 105 mL of Isovue. | | | | RESULTS | | HEMODYNAMICS | | 1. Right atrial pressure: Mean 8, A wave 12, V wave 10. | | 2. Right ventricular pressure: 47/13. | | 3. Pulmonary artery pressure: 36/19, mean pressure 27 mmHg. | | 4. Pulmonary capillary wedge pressure: Mean 23 mmHg, A wave 24, V wave 34. | | | | 5. Left ventricular systolic pressure: 145/37. | | 6. On pullback, central aortic pressure: 105/59, mean 78 mmHg. | | 7. The body surface area calculated to 2.225 m?. | | 8. By femoral dilution technique, cardiac output: 9.33 L/min. | | 9. Cardiac index: 4.19 L/min/m?. | | 10. The aortic valve area is calculated at 1.5 cm?. with a 40 mm | | ofmf-pi-rnor gradient and 32 mm mean gradient. | | 11. The aortic valve area index was calculated at 0.67 cm?/m?. | | However, on echocardiography, the aortic valve area was | | calculated at 0.9 cm?. | | | | CORONARY ARTERIES | | 1. Left main: This is a large vessel arising from the left coronary cusp. | | It is mildly calcified but otherwise normal and trifurcates at its | | distal end. | | 2. Left anterior descending: This is a large, type 2 vessel which reaches | | the apex. The proximal segment is free of disease. The midsegment | | contains a long 60% area of diffuse disease between the first and second | | diagonal branches. The remainder of the LAD is free of disease and | | appears suitable to receive a bypass conduit. The large first septal | | [facility] branch has a 60% concentric ostial stenosis. The other septal | | [facility] consultants branches are somewhat smaller but normal. The large first | | diagonal branch contains an 80% proximal stenosis. The second and third | | diagonal branches are quite small. | | 3. Ramus intermedius: This is a medium-size vessel, with a 50% concentric | | ostial stenosis. The remainder of the vessel is free of disease. | | 4. Left circumflex: This is a medium-size, nondominant vessel supplying a | | single obtuse marginal branch. The midsegment, before the obtuse | | marginal branch, contains a concentric 40% to 50% stenosis. | | 5. Right coronary artery: This is a large dominant vessel arising from the | | right coronary cusp. The proximal segment is free of disease. The early | | midsegment contains a 50% eccentric stenosis, followed by a 70% | | concentric stenosis just before the origin of the single large right | | ventricular branch. From this, there is an area of diffuse disease in | | the midsegment that is judged to be 50% in luminal diameter reduction. | | The distal RCA is free of disease. It gives rise to a relatively small | | posterior descending artery, which is normal, and a relatively small | | posterolateral ventricular branch, which is normal. | | 6. Due to the elevated left ventricular end-diastolic pressure, a left | | ventricular cineangiogram was not performed. | | | | CONCLUSIONS | | 1. Via catheterization, there is only moderate aortic stenosis. However, | | there was severe aortic stenosis on his recent echocardiogram, and this | | will be repeated. | | 2. Moderate 3-vessel coronary artery disease. | | 3. Mild pulmonary hypertension. | | 4. Mild pulmonary artery stenosis. | | 5. Severe left ventricular diastolic dysfunction. | | | | RECOMMENDATIONS | | He is to be started on hemodialysis today or tomorrow. A repeat | | echocardiogram will be done. I have asked Jesús Pantoja MD, from | | cardiothoracic surgery to see him regarding possible aortic valve | | replacement and coronary artery bypass surgery. | | | | Read by SEE DANGELO MD 03/04/2016 10:40 A | | | | | + + PTT (03/04/2016 5:50 AM PDT) + + + + + + | Component | Value | Ref Range | Performed | Pathologist | | | | | At | Signature | + + + + + + | aPTT, | 31Comment: Testing | 23 - 32 seconds | EXTERNAL | | | Patient | performed [place] [facility] [place] | | LAB | | | | [address];[place], [place] | | | | | | [address] | | | | + + + [...] + +---------+ + + External Lab: CBC (03/04/2016 5:50 AM PDT) + + + + + + | Component | Value | Ref Range | Performed | Pathologist | | | | | At | Signature | + + + + + + | WBC | 9.81Comment: Testing | 3.80 - 11.00 | EXTERNAL | | | | performed at [facility], [address] | K/uL | LAB | | | | [address], | | | | | | [place] [address] | | | | + + + + + + | Non- | 2.99 (L)Comment: Testing | 4.20 - 5.70 | EXTERNAL | | | Red Blood | performed at [facility], [address] | M/uL | LAB | | | Cells | [address], | | | | | Counted | [place] [address] | | | | + + + + + + | Hemoglobin | 8.6 (L)Comment: Testing | 13.2 - 17.0 | EXTERNAL | | | | performed at [facility], [address] | g/dL | LAB | | | | [address], | | | | | | [place] [address] | | | | + + + + + + | Hematocrit, | 25.4 (L)Comment: Testing | 39.0 - 50.0 % | EXTERNAL | | | POC | performed at [facility], [address] | | LAB | | | | [address], | | | | | | [place] [address] | | | | + + + + + + | MCV | 84.9Comment: Testing | 80.0 - 100.0 fl | EXTERNAL | | | | performed at [facility], [address] | | LAB | | | | [address], | | | | | | [place] [address] | | | | + + + + + + | MCH | 28.9Comment: Testing | 27.0 - 34.0 pg | EXTERNAL | | | | performed at [facility], [address] | | LAB | | | [address], | | | | | | [place] [address] | | | | + + + + + + | MCHC | 34.0Comment: Testing | 32.0 - 35.5 | EXTERNAL | | | | performed at [facility], [address] | g/dL | LAB | | | | [address], | | | | | | [place] [address] | | | | + + + + + + | RDW-CV | 42.9Comment: Testing | 37 - 53 fl | EXTERNAL | | | | performed at [facility], [address] | | LAB | | | | [address], | | | | | | [place] [address] | | | | + + + + + + | Platelet | 122 (L)Comment: Testing | 150 - 400 K/uL | EXTERNAL | | | Count | performed at [facility], [address] | | LAB | | | Plasma | [address], | | | | | | [place] [address] | | | | + + + + + + | MPV | 10.4Comment: Testing | fl | EXTERNAL | | | | performed at [facility], [address] | | LAB | | | | [address], | | | | | | [place] [address] | | | | + + + + + + | Differentia | AUTOMATEDComment: | | EXTERNAL | | | l Type | Testing performed at | | LAB | | | | [facility], [address] | | | | | | [place] | | | | | | [address] | | | | + + + + + + | % Segmented | 82.96Comment: Testing | % | EXTERNAL | | | | performed at [facility], [address] | | LAB | | | Neutrophils | [address], | | | | | | [place] [address] | | | | + + + + + + | % | 7.31Comment: Testing | % | EXTERNAL | | | Lymphocytes | performed at [facility], [address] | | LAB | | | | [address], | | | | | | [place] [address] | | | | + + + + + + | % Monocytes | 8.93Comment: Testing | % | EXTERNAL | | | | performed at [facility], [address] | | LAB | | | | [address], | | | | | | [place] [address] | | | | + + + + + + | % | 0.18Comment: Testing | % | EXTERNAL | | | Eosinophils | performed at [facility], [address] | | LAB | | | | [address], | | | | | | [place] [address] | | | | + + + + + + | % Basophils | 0.62Comment: Testing | % | EXTERNAL | | | | performed at [facility], [address] | | LAB | | | | [address], | | | | | | [place] [address] | | | | + + + + + + | Absolute | 8.14 (H)Comment: Testing | 1.90 - 7.40 | EXTERNAL | | | Segmented | performed at [facility], [address] | [address] | LAB | | | Neutrophils | [address], | | | | | | [place] [address] | | | | + + + + + + | Absolute | 0.72 (L)Comment: Testing | 1.00 - 3.90 | EXTERNAL | | | Lymphocytes | performed at [facility], [address] | [address] | LAB | | | | [address], | | | | | | [place] [address] | | | | + + + + + + | Absolute | 0.88 (H)Comment: Testing | 0.00 - 0.80 | EXTERNAL | | | Monocytes | performed at [facility], [address] | [address] | LAB | | | | [address], | | | | | | [place] [address] | | | | + + + + + + | Absolute | 0.02Comment: Testing | 0.00 - 0.50 | EXTERNAL | | | Eosinophils | performed at [facility], [address] | [address] | LAB | | | | [address], | | | | | | [place] [address] | | | | + + + + + + | Absolute | 0.06Comment: Testing | 0.00 - 0.10 | EXTERNAL | | | Basophils | performed at [facility], [address] | K/uL | LAB | | | | [address], | | | | | | [place] [address] | | | | + + + + + + + + | Specimen | + + | Blood specimen | | (specimen) | + + + +---------+ + + | Performing | Address | City/State/Zipcode | Phone Number | | Organization | | | | + +---------+ + + | EXTERNAL LAB | | | | + +---------+ + + TSH (03/04/2016 5:50 AM PDT) + + + + + + | Component | Value | Ref Range | Performed | Pathologist | | | | | At | Signature | + + + + + + | TSH | 1.29Comment: Testing | 0.45 - 5.10 | EXTERNAL | | | | performed at [facility], [address] | uIU/mL | LAB | | | | [address], | | | | | | [place] [address] | | | | + + + + + + + + | Specimen | + + | Blood specimen | | (specimen) | + + + +---------+ + + | Performing | Address | City/State/Zipcode | Phone Number | | Organization | | | | + +---------+ + + | EXTERNAL LAB | | | | + +---------+ + + Phosphorus (03/04/2016 5:50 AM PDT) + + + + + + | Component | Value | Ref Range | Performed | Pathologist | | | | | At | Signature | + + + + + + | PHOSPHORUS | 6.5 (H)Comment: Testing | 2.3 - 4.8 mg/dL | EXTERNAL | | | | performed at [facility], [address] | | LAB | | | | [address], | | | | | | [place] [address] | | | | + + + + + + + + | Specimen | + + | Blood specimen | | (specimen) | + + + +---------+ + + | Performing | Address | City/State/Zipcode | Phone Number | | Organization | | | | + +---------+ + + | EXTERNAL LAB | | | | + +---------+ + + Magnesium (03/04/2016 5:50 AM PDT) + + + + + + | Component | Value | Ref Range | Performed | Pathologist | | | | | At | Signature | + + + + + + | Magnesium | 2.4Comment: Testing | 1.7 - 2.4 mg/dL | EXTERNAL | | | | performed at [facility], [address] | | LAB | | | | [address], | | | | | | [place] [address] | | | | + + + + + + + + | Specimen | + + | Blood specimen | | (specimen) | + + + +---------+ + + | Performing | Address | City/State/Zipcode | Phone Number | | Organization | | | | + +---------+ + + | EXTERNAL LAB | | | | + +---------+ + + Hemoglobin A1C (03/04/2016 5:50 AM PDT) + + + + + + | Component | Value | Ref Range | Performed | Pathologist | | | | | At | Signature | + + + + + + | Hemoglobin | 6.8 (H)Comment: The | 4.0 - 6.0 % | EXTERNAL | | | A1c | [place] [employer] | | LAB | | | | Association considers a | | | | | | hemoglobin A1c result of | | | | | | <7.0% to be the goal of | | | | | | diabetic therapy. | | | | | | When results are | | | | | | consistently >8.0%, the | | | | | | ADA suggests | | | | | | reevaluation of the | | | | | | treatment regimen. The | | | | | | testing method used is | | | | | | certified traceable to | | | | | | the Diabetes Control and | | | | | | Complications Trial | | | | | | reference method.Testing | | | | | | performed at [facility], [address] | | | | | [address], | | | | | | [place] [address] | | | | + + + + + + | Glycohemogl | 148Comment: The ADA | mg/dL | EXTERNAL | | | obin | considers an eAG result | | LAB | | | (GHb),Total | of LT 154 mg/dL to be | | | | | | the goal of diabetic | | | | | | therapy. Estimated | | | | | | Average Glucose | | | | | | calculated from | | | | | | hemoglobin A1c by use of | | | | | | the ADA recommended | | | | | | formula.Testing | | | | | | performed at [facility], [address] | | | | | | [address] [facility], | | | | | | [place] [address] | | | | + + + [...] + +---------+ + + Comprehensive Metabolic Panel (03/04/2016 5:50 AM PDT) + + + + + + | Component | Value | Ref Range | Performed | Pathologist | | | | | At | Signature | + + + + + + | Na | 140Comment: Testing | 135 - 145 | EXTERNAL | | | | performed at [facility], [address] | mmol/L | LAB | | | | [address], | | | | | | [place] [address] | | | | + + + + + + | K | 4.3Comment: Testing | 3.5 - 4.9 | EXTERNAL | | | | performed at [facility], [address] | mmol/L | LAB | | | | [address], | | | | | | [place] [address] | | | | + + + + + + | Cl | 105Comment: Testing | 99 - 109 mmol/L | EXTERNAL | | | | performed at [facility], [address] | | LAB | | | | [address], | | | | | | [place], [place] [address] | | | | + + + + + + | CO2 | 20 (L)Comment: Testing | 23 - 32 mmol/L | EXTERNAL | | | | performed at [facility], [address] | | LAB | | | | [address], | | | | | | [place], [place] [address] | | | | + + + + + + | Anion Gap | 19Comment: Testing | 5 - 20 mmol/L | EXTERNAL | | | | performed at [facility], [address] | | LAB | | | | [address], | | | | | | [place] [address] | | | | + + + + + + | Glucose, | 166 (H)Comment: Testing | 65 - 99 mg/dL | EXTERNAL | | | Fasting | performed at [facility], [address] | | LAB | | | | [address], | | | | | | [place] [address] | | | | + + + + + + | BUN | 69 (H)Comment: Testing | 8 - 25 mg/dL | EXTERNAL | | | | performed at [facility], [address] | | LAB | | | | [address], | | | | | | [place] [address] | | | | + + + + + + | Creatinine | 8.6 (H)Comment: Testing | 0.70 - 1.30 | EXTERNAL | | | | performed at [facility], [address] | mg/dL | LAB | | | | [address], | | | | | | [place] [address] | | | | + + + + + + | BUN/Creatin | 8Comment: Testing | | EXTERNAL | | | ine Ratio | performed at [facility], [address] | | LAB | | | | [address], | | | | | | [place] [address] | | | | + + + + + + | Calcium | 8.7Comment: Testing | 8.5 - 10.5 | EXTERNAL | | | | performed at [facility], [address] | mg/dL | LAB | | | | [address], | | | | | | [place] [address] | | | | + + + + + + | Protein, | 5.7 (L)Comment: Testing | 6.3 - 8.2 g/dL | EXTERNAL | | | Total | performed at [facility], [address] | | LAB | | | | [address], | | | | | | [place] [address] | | | | + + + + + + | Albumin | 2.6 (L)Comment: Testing | 3.3 - 4.8 g/dL | EXTERNAL | | | | performed at [facility], [address] | | LAB | | | | [address], | | | | | | [place] [address] | | | | + + + + + + | Globulin | 3.1Comment: Testing | 1.3 - 4.9 g/dL | EXTERNAL | | | | performed at [facility], [address] | | LAB | | | | [address], | | | | | | [place] [address] | | | | + + + + + + | A/G Ratio | 0.8 (L)Comment: Testing | 1.0 - 2.4 | EXTERNAL | | | | performed at [facility], [address] | | LAB | | | | [address], | | | | | | [place] [address] | | | | + + + + + + | Bilirubin | 0.3Comment: Testing | 0.1 - 1.5 mg/dL | EXTERNAL | | | Total | performed at [facility], [address] | | LAB | | | | [address], | | | | | | [place] [address] | | | | + + + + + + | ALP, | 38Comment: Testing | 35 - 115 U/L | EXTERNAL | | | External | performed at [facility], [address] | | LAB | | | | [address], | | | | | | [place] [address] | | | | + + + + + + | AST | 25Comment: Testing | 10 - 45 U/L | EXTERNAL | | | | performed at [facility], [address] | | LAB | | | | [address], | | | | | | [place] [address] | | | | + + + + + + | ALT | 9 (L)Comment: Testing | 10 - 65 U/L | EXTERNAL | | | | performed at [facility], [address] | | LAB | | | | [address], | | | | | | [place] [address] | | | | + + + [...] | | | | | | [place] [address] | | | | + + [...] | + +---------+ + + POC Glucose (03/04/2016 5:34 AM PDT) + + + + + + | Component | Value | Ref Range | Performed | Pathologist | | | | | At | Signature | + + + + + + | Glucose, | 176 (H)Comment: Testing | 65 - 99 mg/dL | EXTERNAL | | | Fingerstick | performed at [facility] | | LAB | | | | [address];[place] | | | | | | [address] | | | | + + + + + + + + | Specimen | + + | | + + + +---------+ + + | Performing | Address | City/State/Zipcode | Phone Number | | Organization | | | | + +---------+ + + | EXTERNAL LAB | | | | + +---------+ + + MRSA NAAT (03/04/2016 4:54 AM PDT) + + | Specimen | + + | | + + + + + | Narrative | Performed At | + + + | S[facility]ARES(NOSE) | EXTERNAL LAB | | Testing performed at [address];[place] [address] MRSA PCR | | | NEGATIVE Testing performed at | | | [address];[place] [address] | | + + + + +---------+ + + | Performing | Address | City/State/Zipcode | Phone Number | | Organization | | | | + +---------+ + + | EXTERNAL LAB | | | | + +---------+ + + CK-MB (03/03/2016 11:54 PM PDT) + + + + + -+ | Component | Value | Ref Range | Performed | Pathologist | | | | | At | Signature | + + + + + -+ | CK-MB | 18.2 (H)Comment: Testing | 0.5 - 3.6 ng/mL | EXTERNAL | | | | performed at [facility] | | LAB | | | | [address];[place] | | | | | | [address] | | | | + + + + + -+ | CK-MB Index | 4.1Comment: CK INDEX | | EXTERNAL | | [...] | + +---------+ + + Troponin I (03/03/2016 11:54 PM PDT) + + + + + + | Component | Value | Ref Range | Performed | Pathologist | | | | | At | Signature | + + + + + + | Troponin I, | 4.57 ()Comment: 0.00 | 0.00 - 0.10 | EXTERNAL | | | Qual | to 0.10 CONSISTENT | ng/mL | LAB | | | | WITH NORMAL | | | | | | POPULATION0.11 to 0.60 | | | | | | CONSISTENT WITH | | | | | | INCREASED RISK FOR | | | | | | ADVERSE OUTCOMES> 0.60 | | | | | | CONSISTENT | | | | | | WITH WHO CRITERIA FOR | | | | | | ACUTE [place] CALLED NURSING | | | | | | UNITREAD BACK RESULTS | | | | | | VERIFIEDJODI T IN P AT | | | | | | 0058 BY TDTesting | | | | | | performed at [facility] | | | | | | [facility];[place], [place] | | | | | | [address] | | | | + + + + + + + + | Specimen | + + | Blood specimen | | (specimen) | + + + +---------+ + + | Performing | Address | City/State/Zipcode | Phone Number | | Organization | | | | + +---------+ + + | EXTERNAL LAB | | | | + +---------+ + + PTT (03/03/2016 11:54 PM PDT) + + + + + + | Component | Value | Ref Range | Performed | Pathologist | | | | | At | Signature | + + + + + + | aPTT, | 35 (H)Comment: Testing | 23 - 32 seconds | EXTERNAL | | | Patient | performed at [facility];[address] | | LAB | | | | [address];[place], [place] | | | | | | [address] | | | | + + + + + + + + | Specimen | + + | Blood specimen | | (specimen) | + + + +---------+ + + | Performing | Address | City/State/Zipcode | Phone Number | | Organization | | | | + +---------+ + + | EXTERNAL LAB | | | | + +---------+ + + CK Total (03/03/2016 11:54 PM PDT) + + + + + + | Component | Value | Ref Range | Performed | Pathologist | | | | | At | Signature | + + + + + + | CK, Total | 443 (H)Comment: Testing | 55 - 400 U/L | EXTERNAL | | | | performed at [facility];[address] | | LAB | | | | [address];[place] | | | | | | [address] | | | | + + + + + + + + | Specimen | + + | Blood specimen | | (specimen) | + + + +---------+ + + | Performing | Address | City/State/Zipcode | Phone Number | | Organization | | | | + +---------+ + + | EXTERNAL LAB | | | | + +---------+ + + POC Glucose (03/03/2016 9:18 PM PDT) + + + + + + | Component | Value | Ref Range | Performed | Pathologist | | | | | At | Signature | + + + + + + | Glucose, | 192 (H)Comment: Testing | 65 - 99 mg/dL | EXTERNAL | | | Fingerstick | performed at [facility];[address] | | LAB | | | | [address];[place] | | | | | | [address] | | | | + + + + + + + + | Specimen | + + | | + + + +---------+ + + | Performing | Address | City/State/Zipcode | Phone Number | | Organization | | | | + +---------+ + + | EXTERNAL LAB | | | | + +---------+ + + CK-MB (03/03/2016 6:48 PM PDT) + + + + + -+ | Component | Value | Ref Range | Performed | Pathologist | | | | | At | Signature | + + + + + -+ | CK-MB | 19.6 (H)Comment: Testing | 0.5 - 3.6 ng/mL | EXTERNAL | | | | performed at [facility] | | LAB | | | | [address];[place] | | | | | | [address] | | | | + + + + + -+ | CK-MB Index | 4.6Comment: CK INDEX | | EXTERNAL | | [...] | + +---------+ + + Troponin I (03/03/2016 6:48 PM PDT) + + + + + + | Component | Value | Ref Range | Performed | Pathologist | | | | | At | Signature | + + + + + + | Troponin I, | 4.36 ()Comment: 0.00 | 0.00 - 0.10 | EXTERNAL | | | Qual | to 0.10 CONSISTENT | ng/mL | LAB | | | | WITH NORMAL | | | | | | POPULATION0.11 to 0.60 | | | | | | CONSISTENT WITH | | | | | | INCREASED RISK FOR | | | | | | ADVERSE OUTCOMES> 0.60 | | | | | | CONSISTENT | | | | | | WITH WHO CRITERIA FOR | | | | | | ACUTE [place] CKTRP PHONED TO | | | | | | 6RP JEN Bobo AT 1940 | | | | | | BY [id number] BACK RESULTS | | | | | | VERIFIEDTesting | | | | | | performed at [facility];[address] | | | | | | [address];[place], [place] | | | | | | [address] | | | | + + + + + + + + | Specimen | + + | Blood specimen | | (specimen) | + + + +---------+ + + | Performing | Address | City/State/Zipcode | Phone Number | | Organization | | | | + +---------+ + + | EXTERNAL LAB | | | | + +---------+ + + PTT (03/03/2016 6:48 PM PDT) + + + + + + | Component | Value | Ref Range | Performed | Pathologist | | | | | At | Signature | + + + + + + | aPTT, | 33 (H)Comment: Testing | 23 - 32 seconds | EXTERNAL | | | Patient | performed at [facility] | | LAB | | | | [address];[place] | | | | | | [address] | | | | + + + + + + + + | Specimen | + + | Blood specimen | | (specimen) | + + + +---------+ + + | Performing | Address | City/State/Zipcode | Phone Number | | Organization | | | | + +---------+ + + | EXTERNAL LAB | | | | + +---------+ + + CK Total (03/03/2016 6:48 PM PDT) + + + + + + | Component | Value | Ref Range | Performed | Pathologist | | | | | At | Signature | + + + + + + | CK, Total | 422 (H)Comment: Testing | 55 - 400 U/L | EXTERNAL | | | | performed at [facility];[address] | | LAB | | | | [address];[place], [place] | | | | | | [address] | | | | + + + + + + + + | Specimen | + + | Blood specimen | | (specimen) | + + + +---------+ + + | Performing | Address | City/State/Zipcode | Phone Number | | Organization | | | | + +---------+ + + | EXTERNAL LAB | | | | + +---------+ + + POC Glucose (03/03/2016 5:16 PM PDT) + + + + + + | Component | Value | Ref Range | Performed | Pathologist | | | | | At | Signature | + + + + + + | Glucose, | 179 (H)Comment: Testing | 65 - 99 mg/dL | EXTERNAL | | | Fingerstick | performed at [facility];[address] | | LAB | | | [address];[place] | | | | | | [address] | | | | + + + + + + + + | Specimen | + + | | + + + +---------+ + + | Performing | Address | City/State/Zipcode | Phone Number | | Organization | | | | + +---------+ + + | EXTERNAL LAB | | | | + +---------+ + + POC Glucose (03/03/2016 2:57 PM PDT) + + + + + + | Component | Value | Ref Range | Performed | Pathologist | | | | | At | Signature | + + + + + + | Glucose, | 174 (H)Comment: Testing | 65 - 99 mg/dL | EXTERNAL | | | Fingerstick | performed at [facility];[address] | | LAB | | | | [address];[place] | | | | | | [address] | | | | + + + + + + + + | Specimen | + + | | + + + +---------+ + + | Performing | Address | City/State/Zipcode | Phone Number | | Organization | | | | + +---------+ + + | EXTERNAL LAB | | | | + +---------+ + + B Type Natriuretic Peptide (03/03/2016 9:12 AM PDT) + + + + + + | Component | Value | Ref Range | Performed | Pathologist | | | | | At | Signature | + + + + + + | BNP | 3,200 (H)Comment: | 0 - 100 pg/mL | EXTERNAL | | | | Testing performed at | | LAB | | | | [facility];[address];[place] [address] | | | | + + + [...] + +---------+ + + ECG 12 lead (03/03/2016 9:11 AM PDT) + + + + + + | Component | Value | Ref Range | Performed | Pathologist | | | | | At | Signature | + + + + + + | DIAGNOSIS: | Sinus rhythm with | | EXTERNAL | | | | frequent Premature | | LAB | | | | ventricular | | | | | | complexesNonspecific ST | | | | | | abnormalityProlonged | | | | | | QTAbnormal ECGWhen | | | | | | compared with ECG of | | | | | | -FEB-2016 | | | | | | 15:02,Premature | | | | | | ventricular complexes | | | | | | are now PresentVent. | | | | | | rate has increased BY | | | | | | 41 BPMST now depressed | | | | | | in Lateral leadsThis | | | | | | ECG contains Unconfirmed | | | | | | Interpretation | | | | | | Statements. See ED | | | | | | Record for Physician | | | | | | Interpretation. | | | | | | Confirmed by MUSE READ | | | | | | ONLY, -COMPUTER ([id number]), | | | | | | editor at large ANDREI ANDINO | | | | | | (125) on 03/04/2016 | | | | | | 3:03:30 AM | | | | + + + + + + + + | Specimen | + + | | + + + + + | Narrative | Performed At | + + + | Historically converted procedure from [facility] environment | EXTERNAL LAB | + + + + +---------+ + + | Performing | Address | City/State/Zipcode | Phone Number | | Organization | | | | + +---------+ + + | EXTERNAL LAB | | | | + +---------+ + + XR Chest 1 Vw (03/03/2016 7:27 AM PDT) + + | Specimen | + + | | + + + + + | Narrative | Performed At | + + + | This is a non-reportable procedure without a radiologist report and | | | is used for image storage only | | + + + + + | Procedure Note | + + | Elmo Rubio Conversion - 01/21/2019 4:53 PM PDT This is a non-reportable procedure | | without a radiologist report and isused for image storage only | + + XR Chest 1 Vw (01/17/2014 7:26 AM PDT) + + | Specimen | + + | | + + + + + | Narrative | Performed At | + + + | This is a non-reportable procedure without a radiologist report and | | | is used for image storage only | | + + + + + | Procedure Note | + + | Elmo Rubio Shawn - 01/21/2019 4:53 PM PDT This is a non-reportable procedure | | without a radiologist report and isused for image storage only | + + documented in this encounter Visit Diagnoses + + | Diagnosis | + + | Unknown cause of injury Unspecified accident | + + | Congestive heart failure, unspecified congestive heart failure chronicity, unspecified | | congestive heart failure type | + + | Renal failure Renal failure, unspecified | + + | ESRD (end stage renal disease) ([facility]) End stage renal disease | + + | NSTEMI (non-ST elevated myocardial infarction) (HCC) Acute myocardial infarction, | | subendocardial infarction, episode of care unspecified | + + documented in this encounter
--- OUTSIDE RECORDS SUMMARY | ~2019-12-23 | XMS | Encounter Summary ---
Demographics + + + | Address | [address] | | | [place] [address] | + + + | Home Phone | | + + + | Preferred Language | Unknown | + + + | Marital Status | | + + + | Zoroastrianism Affiliation | Unknown | + + + | Race | Unknown | + + + | Ethnic Group | Unknown | + + + Author + + + | Author | [facility] | | | and [place] | + + + | Organization | [facility] | | | [...] [address] | | | | | [address] | | + + + + + | Parth Vital | ECON | Unknown | | + + + + + Care Team Providers + +------+ + | Care Video Game Engineer Name | Role | Phone | + +------+ + | Star Doll MD | PCP | | + +------+ + Encounter Details +--------+ + + + + | Date | Type | Department | Care Team | Description | +--------+ + + + + | 03/09/ | Orders Only | [facility] | Jeanmarie Ly MD | | | 2014 | | NEPRHOLOGY [place] | [address] | | | | | [address] | [address] [place], [place] | | | | | [address] [place], [place] | [address] | | | | | [address] | | | | | | [phone] | | | +--------+ + + + [...] + | URINALYSIS WITH | Routin | 03/09/2015 | | Results for this | | MICROSCOPIC IF | e | 12:00 AM | | procedure are in the | | INDICATED | | PDT | | results section. | + +--------+ + + + | VITAMIN D, | Routin | 03/09/2015 | | Results for this | | DEFICIENCY SCREEN | e | 12:00 AM | | procedure are in the | | (25-HYDROXY) | | PDT | | results section. | + +--------+ + + + | PARATHYROID HORMONE, | Routin | 03/09/2015 | | Results for this | | INTACT AND CALCIUM | e | 12:00 AM | | procedure are in the | | | | PDT | | results section. | + +--------+ + + + | HEMOGLOBIN AND | Routin | 03/09/2015 | | Results for this | | HEMATOCRIT | e | 12:00 AM | | procedure are in the | | | | PDT | | results section. | + +--------+ + + + | PROTEIN/CREATININE | Routin | 03/09/2015 | | Results for this | | RATIO, URINE | e | 12:00 AM | | procedure are in the | | | | PDT | | results section. | + +--------+ + + + | URIC ACID | Routin | 03/09/2015 | | Results for this | | | e | 12:00 AM | | procedure are in the | | | | PDT | | results section. | + +--------+ + + + | MAGNESIUM | Routin | 03/09/2015 | | Results for this | | | e | 12:00 AM | | procedure are in the | | | | PDT | | results section. | + +--------+ + + + | RENAL FUNCTION PANEL | Routin | 03/09/2015 | | Results for this | | | e | 12:00 AM | | procedure are in the | | | | PDT | | results section. | + +--------+ + + + documented in this encounter Results Hemoglobin and Hematocrit (03/09/2015 12:00 AM PDT) + + + + [...] + + + + | Hematocrit, | 30.3 (A) | 41 - 50 % | [...] + + Parathyroid Hormone, Intact and Calcium (03/09/2015 12:00 AM PDT) + +-------+ + + + | Component | Value | Ref Range | Performed | Pathologist | | | | | At | Signature | + +-------+ + + + | PTH Intact | 28.77 | 15 - 65 | EXTERNAL | | | | | | LAB | | + +-------+ + + + | Calcium | 9.9 [...] + +---------+ + + Protein/Creatinine Ratio, Urine (03/09/2015 12:00 AM PDT) + + + + + + | Component | Value | Ref Range | Performed | Pathologist | | | | | At | Signature | + + + + + + | Protein/Cre | 3394.7 (A) | 0 - 150 | EXTERNAL [...] + + Vitamin D, Deficiency Screen (25-Hydroxy) (03/09/2015 12:00 AM PDT) + +-------+ + + [...] + + Urinalysis with Microscopic if Indicated (03/09/2015 12:00 AM PDT) + + + + [...] + + + + | Ketones | n | | EXTERNAL | | | | [...] | + +---------+ + + Uric Acid (03/09/2015 12:00 AM PDT) + +-------+ + + + | Component | Value | Ref Range | Performed | Pathologist | | | | | At | Signature | + +-------+ + + + | Uric Acid | 6.3 | 4.4 - 7.6 | EXTERNAL | [...] | | + +---------+ + + Magnesium (03/09/2015 12:00 AM PDT) + +-------+ + + [...] + +---------+ + + Renal Function Panel (03/09/2015 12:00 AM PDT) + + + + + + | Component | Value | Ref Range | Performed | Pathologist | | | | | At | Signature | + + + + + + | Glucose, | 274 (A) | 70 - 100 mg/dL | EXTERNAL | | | Fasting | | | LAB | | + + + + + + | BUN | 59 (A) | 6 - 23 mg/dL | EXTERNAL | | | | | | LAB | | + + + + + + | Creatinine | 4.72 (A) | 0.70 - 1.18 | EXTERNAL [...] | | | LAB | | | ANGUILLAN | | | | | + + + + + + | Phosphorus, | 4.2 | 2.5 - 5.0 | EXTERNAL | | | Inorganic | | | LAB | | + + + + + + | BUN/Creatin | 12.5 | 6.0 - 28.6 | EXTERNAL | [...]
--- OUTSIDE RECORDS SUMMARY | ~2019-12-23 | XMS | Encounter Summary ---
Demographics + + + | Address | [address] | | | [place] [address] | + + + | Home Phone | | + + + | Preferred Language | Unknown | + + + | Marital Status | | + + + | Bahai Affiliation | Unknown | + + + [...] [address] | | | | | [address] | | + + + + + | Parth Vital | ECON | Unknown | | + + + + + Care Team Providers + +------+ + | Care Cable Lacer Name | Role | Phone | + +------+ + | Star Doll MD | PCP | | + +------+ + Encounter Details +--------+ + + + + | Date | Type | Department | Care Team | Description | +--------+ + + + + | 03/21/ | Orders Only | [facility] | Jeanmarie Ly MD | | | 2013 | | NEPHROLOGY [place] | [address] [place] | | | | | [address] [place] | [address] [place], [place] | | | | | [address] [facility], [place] | [address] | | | | | [address] | | | | | | [phone] | | | +--------+ + + + [...] | IRON AND IRON | Routin | 03/21/2014 | | Results for this | | BINDING CAPACITY | e | 12:00 AM | | procedure are in the | | | | PDT | | results section. | + +--------+ + + + | URINALYSIS WITH | Routin | 03/21/2014 | | Results for this | | MICROSCOPIC WITH | e | 12:00 AM | | procedure are in the | | CULTURE IF INDICATED | | PDT | | results section. | + +--------+ + + + | HEMOGLOBIN AND | Routin | 03/21/2014 | | Results for this | | HEMATOCRIT | e | 12:00 AM | | procedure are in the | | | | PDT | | results section. | + +--------+ + + + | TRANSFERRIN | Routin | 03/21/2014 | | Results for this | | | e | 12:00 AM | | procedure are in the | | | | PDT | | results section. | + +--------+ + + + | MAGNESIUM | Routin | 03/21/2014 | | Results for this | | | e | 12:00 AM | | procedure are in the | | | | PDT | | results section. | + +--------+ + + + | FERRITIN | Routin | 03/21/2014 | | Results for this | | | e | 12:00 AM | | procedure are in the | | | | PDT | | results section. | + +--------+ + + + | RENAL FUNCTION PANEL | Routin | 03/21/2014 | | Results for this | | | e | 12:00 AM | | procedure are in the | | | | PDT | | results section. | + +--------+ + + + documented in this encounter Results Urinalysis with Microscopic with Culture if Indicated (03/21/2014 12:00 AM PDT) + + + + [...] + + Iron and Iron Binding Capacity (03/21/2014 12:00 AM PDT) + + + + + + | Component | Value | Ref Range | Performed | Pathologist | | | | | At | Signature | + + + + + + | Iron | 34 (A) | 37 - 160 | EXTERNAL | | | | | | LAB | | + + + + + + | Iron | 11.1 (A) | 20 - 55 | EXTERNAL | | | Saturation | | | LAB | | + + + + + + | TIBC | 307 | 245 - 400 | EXTERNAL | [...] + +---------+ + + Hemoglobin and Hematocrit (03/21/2014 12:00 AM PDT) + + + + + + | Component | Value | Ref Range | Performed | Pathologist | | | | | At | Signature | + + + + + + | Hemoglobin | 9.1 (A) | 13.5 - 18.0 | EXTERNAL | | | | | | LAB | | + + + + + + | Hematocrit, | 27.2 (A) | 41 - 50 % | [...] | | + +---------+ + + Transferrin (03/21/2014 12:00 AM PDT) + +-------+ + + + | Component | Value | Ref Range | Performed | Pathologist | | | | | At | Signature | + +-------+ + + + | TRANSFERRIN | 219 | 180 - 329 | EXTERNAL | [...] | | + +---------+ + + Magnesium (03/21/2014 12:00 AM PDT) + +-------+ + + + | Component | Value | Ref Range | Performed | Pathologist | | | | | At | Signature | + +-------+ + + + | Magnesium | 1.8 | 1.7 - 2.5 mg/dL | EXTERNAL [...] | | + +---------+ + + Ferritin (03/21/2014 12:00 AM PDT) + + + + + + | Component | Value | Ref Range | Performed | Pathologist | | | | | At | Signature | + + + + + + | Ferritin, | 918.6 (A) | 30 - 400 ng/mL | [...] + +---------+ + + Renal Function Panel (03/21/2014 12:00 AM PDT) + + + + + + | Component | Value | Ref Range | Performed | Pathologist | | | | | At | Signature | + + + + + + | Glucose, | 137 (A) | 70 - 100 mg/dL | EXTERNAL | | | Fasting | | | LAB | | + + + + + + | BUN | 39 (A) | 6 - 23 mg/dL | EXTERNAL | | | | | | LAB | | + + + + + + | Creatinine | 4.82 (A) | 0.70 - 1.25 | EXTERNAL [...] + + + | Anion Gap | 12.3 | 7 - 21 mmol/L | EXTERNAL | | | | | | LAB | | + + + + + + | eGFR if not | | | EXTERNAL | | | | | | LAB | | | AUSTRIAN | | | | | + + + + + + | Phosphorus, | 3.0 | 2.5 - 5.0 | EXTERNAL | | | Inorganic | | | LAB | | + + + + + + | BUN/Creatin | 8.1 | 6.0 - 28.6 | EXTERNAL | [...]
--- OUTSIDE RECORDS SUMMARY | ~2019-12-23 | XMS | Encounter Summary ---
Demographics + + + | Address | [address] | | | [place] [address] | + + + | Home Phone | | + + + | Preferred Language | Unknown | + + + | Marital Status | | + + + | Jain Affiliation | Unknown | + + + | Race | Unknown | + + + | Ethnic Group | Unknown | + + + Author + + + | Author | [facility] | | | and [place] | + + + | Organization | [facility] | | [...] [address] | | | | | [address] | | + + + + + | Parth Vital | ECON | Unknown | | + + + + + Care Team Providers + +------+ + | Care Sterile Tech Name | Role | Phone | + +------+ + | Star Harris MD | PCP | | + +------+ + Encounter Details +--------+ + + + + | Date | Type | Department | Care Team | Description | +--------+ + + + + | 01/17/ | Hospital | [facility] | Stacy Abdielshelli, | GI bleeding; | | 2013 - | Encounter | [facility] | MD [address] | Hematemesis; HTN | | | | CARE FLOOR [address] | [place] [address] | (hypertension); Iron | | 01/20/ | | [address] | [phone] | deficiency; | | 2013 | | [place], [place] | | Metabolic acidosis, | | | | [address] | | normal anion gap | | | | [phone] | | (NAG); Metabolic | | | | | | acidemia; Murmur, | | | | | | cardiac; Anemia; CKD | | | | | | (chronic kidney | | | | | | disease), stage V | | | | | | ([facility]); Acute | | | | | | posthemorrhagic | | | | | | anemia; Acute upper | | | | | | GI bleed; Anemia of | | | | | | chronic renal | | | | | | failure; ARF (acute | | | | | | renal failure) | | | | | | ([facility]); Diabetes | | | | | | mellitus ([facility]); | | | | | | Diabetic nephropathy | | | | | | ([facility]) | +--------+ + + + + Social [...] encounter Discharge Summaries Thomas Montiel MD - 01/20/2014 3:03 PM PDTFormatting of this note might be different from th e original. Discharge Summaries by Thomas Montiel MD at 01/20/14 150 Author: Thomas Montiel MD Service: Hospitalist Author Type: Physician Filed: 01/20/14 1509 Date of Service: 01/20/14 1502 Status: Addendum Stoner Hand: Thomas Montiel MD (Physician) Related Notes: Original Note by Thomas Montiel MD (Physician) filed at 01/20/14 1508 [facility] Service: Hospitalist Discharge Summary Date of Admission: 01/17/2014 Date of Discharge: 01/20/2014 Discharge Physician: Thomas Montiel MD Treatment Team: Consulting Physician: Terrie Vergara MD Consulting Physician: Sweta Hughes MD Admitting Provider: Sofie Kumar MD Discharge Diagnoses: Principal Problem: Acute upper GI bleed Active Problems: CKD (chronic kidney disease), stage V Diabetes mellitus HTN (hypertension) Diabetic nephropathy Iron deficiency Anemia of chronic renal failure Acute posthemorrhagic anemia Melena Hematemesis Murmur, cardiac Moderate aortic stenosis Resolved Problems: * No resolved hospital problems. * Procedures: Procedure(s): ESOPHAGOGASTRODUODENOSCOPY Signed Op Note 01/18/14 1800 [facility] Service: Gastroenterology ENDOSCOPY SUITE PROCEDURE NOTE Esophagogastroduodenoscopy Indications: upper GI bleeding with severe anemia Consent: The benefits, risks (bleeding, perforation, infection and reaction to medication), and alternatives to the procedure were discussed and informed consent was obtained from the patient. Preparation: EKG, pulse, pulse oximetry, and blood pressure were monitored throughout the p rocedure. Medications: MAC Procedure: The gastroscope was passed through the mouth under direct visualization and was advanced with ease to the 2nd portion of the duodenum. The scope was withdrawn and the mucos a was carefully examined. The views were good. There were no apparent complications. Findings: 1)active bleeding gastric ulcer at gastric body( greater curvature side) status post local injection with 1:10,000 epinephrine 3 cc followed with cauterization by 10 [place] Probe and placement of 3 Endo-clip 2)moderate amount of fresh blood in the total stomach down to duodenal bulb Specimens: none Complications: None; patient tolerated the procedure well. Impression: 1)active bleeding gastric ulcer at gastric body( greater curvature side) status post local injection with 1:10,000 epinephrine 3 cc followed with cauterization by 10 [place] Probe and placement of 3 Endo-clip 2)moderate amount of fresh blood in the total stomach down to duodenal bulb EBL: Minimal Recommendations: NPO today and clear liquid in am Continue PPI continuous IV drip Will start iron infusion Could be discharged home in 48 hours if remains stable TERRIE VERGARA MD 01/18/2014 Significant Diagnostic Studies: ECHO Patient Name: BRIANNA VITAL Date of : 1945 Performing Physician: Angelo Wiley MD INDICATIONS Murmur valvular abnormality CONCLUSIONS 1. Moderate aortic stenosis with peak/mean pressure gradient of 47.59mmHg / 28.15mmHg, the aortic valve area by continuity equation is 1.4cm. FINDINGS -------- ECG rhythm: Sinus rhythm. Study: A 2-dimensional transthoracic echocardiogram with m-mode, spectral and color flow Do ppler was perfomed. Study: This was a technically adequate study. Left Ventricle: Overall left ventricular systolic function is normal with, an EF between 65 - 70 %. Left Ventricle: Left Ventricle ejection fraction by m-mode measures 67%. Left Ventricle: The left ventricle is moderately dilated. Left Ventricle: Left ventricular wall thickness is normal. Left Ventricle: No regional wall motion abnormalities. Left Ventricle: The diastolic filling pattern is normal for the age of the patient. Right Ventricle: The right ventricle is normal in size. Right Ventricle: The right ventricular systolic function is normal. Left Atrium: The left atrium is moderately dilated Left Atrium: , and the LA measures 4.7cm. Right Atrium: The right atrial size is normal Right Atrium: , and the RA measures 4.9cm. Aortic Valve: Aortic valve is trileaflet and is moderately thickened. Aortic Valve: The aortic valve is moderately calcified. Aortic Valve: There is no evidence of aortic regurgitation. Aortic Valve: Moderate aortic stenosis with peak/mean pressure gradient of 47.59mmHg / 28.1 5mmHg, the aortic valve area by continuity equation is 1.4cm. Mitral Valve: The mitral valve is normal. Mitral Valve: There is trace mitral regurgitation. Mitral Valve: Mild mitral annular calcification present. Tricuspid Valve: The tricuspid valve appears structurally normal. Tricuspid Valve: Mild tricuspid regurgitation present. Tricuspid Valve: There is mild pulmonary hypertension. Tricuspid Valve: The right ventricular systolic pressure (pulmonary artery systolic pressur e), as measured by Doppler, is 32 + 5-10 = 37-42mmhg. Pulmonic Valve: The pulmonic valve is normal. Pericardium: There is a trivial pericardial effusion present. Pericardium: No pleural effusion seen. IVC/Hepatic Veins: The IVC is normal size (1.5-2.5cm) and collapses >50% with sniff, consis tent with central venous pressures of 5-10mmHg. Mass: No mass visualized Thrombus: No clot visualized Thrombus: No vegetation visualized. BRIEF HISTORY OF PRESENTATION: Brianna Vital is a 68 y.o. male who presented with severe anemia please refer to H& P and consult notes for details. HOSPITAL COURSE: 1. Acute upper GIB due to active bleeding gastric ulcer at greater curvature side s/p epi i njection, cauterization and endo clip per EGD continue PPI BID per Dr.sitti ocampo, , hold plavix for a week as dr.sitti ocampo. 2.CKD5 followed by . 3.HTN continue home meds 4.moderate aortic stenosis i have d/w and he recc outpt follow up and the patient is informed and agrees,he denies CP or SOB or dizziness. 5.DM2 continue home medications 6.acute post hemorrhagic anemia on anemia of CKD s/p 6 units of PRBCs stable H&H .. All his questions were addressed and he was discharged in a stable condition covered with s marcelo effects of newly added medication . Past Medical History Diagnosis Date Hypertension Hyperlipidemia Diabetes mellitus, type 2 TIA (transient ischemic attack) 2010 Heart murmur Stroke surface stroke Sleep apnea dx light apnea Chronic kidney disease Anemia of chronic renal failure 01/24/2012 Acute upper GI bleed 01/18/2014 Past Surgical History Procedure Laterality Date Colonoscopy Cataract extraction 2004? Esophagogastroduodenoscopy N/A 01/18/2014 Procedure: ESOPHAGOGASTRODUODENOSCOPY; Surgeon: Terrie Vergara MD; Location: [facility] END[facility]; Service: Gastroenterology; Laterality: N/A; Allergies Allergen Reactions Penicillins Other (See Comments) No prescriptions prior to admission DISCHARGE EXAM Vital Signs: BP 136/61 | Pulse 69 | Temp(Src) 98.2 F (36.8 C) (Oral) | Resp 18 | Ht 1.753 m (5' 9") | Wt 91.6 kg (201 lb 15.1 oz) | BMI 29.81 kg/m2 | SpO2 100% General appearance: alert, appears stated age, cooperative and no distress Head: Normocephalic, without obvious abnormality, atraumatic Neck: no adenopathy, no carotid bruit, no JVD, supple, symmetrical, trachea midline and thy roid not enlarged, symmetric, no tenderness/mass/nodules Lungs: clear to auscultation bilaterally Heart: regular rate and rhythm, S1, S2 normal, systolic murmur, click, rub or gallop Abdomen: soft, non-tender; bowel sounds normal; no masses, no organomegaly can be appreciat ed Extremities: extremities normal, atraumatic, no cyanosis or edema Pulses: 2+ and symmetric Neurologic: Grossly normal AXOX 3 DATA CBC: Lab Results Component Value Date WBC 7.0 01/20/2014 RBC 3.10* 01/20/2014 HGB 9.3* 01/20/2014 HCT 27.4* 01/20/2014 MCV 88.2 01/20/2014 MCH 29.9 01/20/2014 MCHC 33.9 01/20/2014 RDW 49.0 01/20/2014 PLT 136* 01/20/2014 MPV 8.2 01/20/2014 DIFFTYPE AUTOMATED 01/20/2014 CMP: Lab Results Component Value Date NA 140 01/20/2014 K 3.7 01/20/2014 CL 111* 01/20/2014 CO2 21* 01/20/2014 ANIONGAP 12 01/20/2014 GLUF 136* 01/20/2014 BUN 73* 01/20/2014 CREATININE 4.18* 01/20/2014 BCR 21 01/18/2014 CA 8.5 01/20/2014 CA 9.4 11/15/2013 PROT 4.5* 01/18/2014 ALB 2.7* 01/20/2014 GLOB 1.8 01/18/2014 BILITOT 0.3 01/18/2014 ALP 11* 01/18/2014 AST 21 01/18/2014 ALT 10 01/18/2014 EGFR 15* 01/20/2014 Disposition: Home Condition: Stable Code Status: Full Code Discharge Instructions CBC W/Auto Diff (Reflex to Manual) Standing Status: Future Standing Exp. Date: 01/20/15 Renal function panel Standing Status: Future Standing Exp. Date: 01/20/15 Magnesium Standing Status: Future Standing Exp. Date: 01/20/15 Diet Cardiac Diet Renal Diet Diabetic Nursing communication Scheduling Instructions: Per can resume plavix after one week if no more bleeding occurs,per ASA 81 mg should be ok starting tomorrow Avoid all NSAID's Activity as Advised by Physical Therapy Call MD for: Severe Uncontrolled Pain Call MD for: Persistant Nausea and Vomiting Call MD for: Temperature > 100.4F (38C) Call MD for: Redness, Tenderness, or Signs of Infection (Pain, Swelling, Redness, Odor or Green/Yellow Discharge Around Incision Site) Call MD for: Difficulty Breathing, Headache or Visual Disturbances Call MD for: Hives Call MD for: Persistant Dizziness or Light-Headedness Call MD for: Extreme Fatigue Follow up: Star Harris MD Schedule an appointment as soon as possible for a visit in 1 week Terrie Vergara MD [address] [facility] [address] Schedule an appointment as soon as possible for a visit in 1 week Sweta Hughes MD [address] [place] [address] Schedule an appointment as soon as possible for a visit in 1 week Angelo Wiley MD [address] [place] [id number] Schedule an appointment as soon as possible for a visit in 1 week Medication List START taking these medications pantoprazole 40 MG tablet QTY: 60 tablet Refills: 0 For diagnoses: Bleeding From Upper Gastrointestinal Tract Commonly known as: PROTONIX Take 1 tablet by mouth 2 (two) times daily before meals. CONTINUE taking these medications amLODIPine 10 MG tablet Refills: 0 Commonly known as: NORVASC aspirin 81 MG tablet Refills: 0 atorvastatin 40 MG tablet Refills: 0 Commonly known as: LIPITOR carvedilol 25 MG tablet Refills: 0 Commonly known as: COREG epoetin lakeisha 14758 UNIT/ML injection QTY: 6 mL Refills: 4 Commonly known as: PROCRIT Inject 1 mL into the skin every 14 (fourteen) days. fenofibrate 160 MG tablet Refills: 0 Commonly known as: TRICOR ferrous gluconate 325 MG tablet Refills: 0 Commonly known as: FERGON glucose blood test strip Refills: 0 insulin lispro protamine-insulin lispro (75-25) 100 UNIT/ML injection QTY: 15 mL Refills: 0 Commonly known as: HUMALOG 75/25 Inject 10 Units into the skin 2 (two) times daily before meals. mesalamine [address] QTY: 120 capsule Refills: 0 Commonly known as: DELZICOL Take 1 capsule by mouth 4 (four) times daily before meals and nightly. Administer 1 hour be fore or 2 hours after a meal. The capsule should be swallowed whole; do not break, chew, or crush niacin 500 MG tablet Refills: 0 potassium chloride SA 20 MEQ tablet QTY: 60 tablet Refills: 0 Commonly known as: K-DUR,KLOR-CON Take 2 tablets by mouth daily with breakfast. sitagliptan 100 MG tablet Refills: 0 Commonly known as: JANUVIA sodium bicarbonate 650 MG tablet QTY: 180 tablet Refills: 0 Take 2 tablets by mouth 3 (three) times daily. terazosin 5 MG capsule Refills: 0 Commonly known as: HYTRIN vitamin C 500 MG tablet Refills: 0 VITAMIN D PO Refills: 0 STOP taking these medications clopidogrel 75 MG tablet Commonly known as: PLAVIX Where to Get Your Medications These are the prescriptions that you need to [facility]. You may get the following medications from any pharmacy - pantoprazole 40 MG tablet Discharge took over 30 minutes, to include [...] Progress Notes Conversion Transaction, Provider Unknown - 01/20/2014 1:09 PM PDTFormatting of this note m ight be different from the original. Nurse Progress Note by Frannie Larose RN at 01/20/14 1309 Author: Frannie Larose RN Service: (none) Author Type: Registered Nurse Filed: 01/20/14 1310 Date of Service: 01/20/14 1309 Status: Signed Stoner Hand: Frannie Larose RN (Registered Nurse) Pt walked down to vehicle, left with and grand daughter. onver rosie Transaction, Provider Unknown - 01/20/2014 10:15 AM PDT Therapy Progress Note by Dov Long PT at 01/20/14 1015 Author: Dov Long PT Service: (none) Author Type: Physical Therapist Filed: 01/20/14 1046 Date of Service: 01/20/14 1015 Status: Signed Stoner Hand: Dov Long PT (Physical Therapist) 01/20/14 1015 PT Last Visit PT Received On 01/20/14 Reason for Treatment Deconditioning Requires PT Follow Up No PT Eval/Reassessment Date 01/20/14 Assistance Required Independent Parts Back Counter Man Needed No Precautions Other Precautions moderate fall risk Other Comments Comments Chart reviewed, PT eval completed. Pt is a 68 yo male admitted with active bleedin g due to gastric ulcer. Pt demonstrated safe and indep mobility. Pt reports minimal fall hi story related to hypertension. Pt does not need further skilled acute PT. See Tinetti FAM s core for details of mobility screening and fall risk. Cognition Overall Cognitive Status WFL Orientation Level Oriented Bed Mobility Supine to Sit Modified independent Sit to Supine Modified independent Scooting Independent Transfers Sit to/from Stand Independent Mobility Ambulation Assistance Independent Maximal Ambulation Distance (feet) 380 Total Ambulation Distance (feet) 380 Distance limited by? Therapist/staff discretion Pattern Wide base (mild path deviation) Assistive Device None Balance Balance (See Tinetti FAM score below.) Activity Tolerance Activity Tolerance Patient tolerated treatment without report of fatigue Safety Devices Safety Devices in Place Not applicable Restraints Initially in Place No Plan Treatment/Interventions Discharge skilled PT services Recommendation Recommendations Return to prior living situation Equipment Recommended None 01/20/14 1015 PT Last Visit PT Received On 01/20/14 Reason for Treatment Deconditioning Requires PT Follow Up No PT Eval/Reassessment Date 01/20/14 Assistance Required Independent Parts Back Counter Man Needed No Precautions Other Precautions moderate fall risk Plan Treatment/Interventions Discharge skilled PT services Home Environment Type of Home Home one story Home Exterior Layout Entry steps none Home Interior Layout Lives on main level with bedroom/bathroom Home Equipment (walking stick, not used) Recommendation Recommendations Return to prior living situation Equipment Recommended None Prior Function Level of [place] Independent with functional mobility Lives With Spouse Employment Retired for age RUE Assessment RUE Assessment WFL LUE Assessment LUE Assessment WFL RLE Assessment RLE Assessment WFL LLE Assessment LLE Assessment WFL Cognition Overall Cognitive Status WFL Orientation Level Oriented Vision-Basic Assessment Current Vision No visual deficits Safety Devices Safety Devices in Place Not applicable Restraints Initially in Place No Barriers to discharge None Tinetti Performance Oriented Mobility Assessment (FAM) BALANCE SECTION Patient is seated in hard, armless chair Sitting Balance Leans or slides in chair = 0 Steady, safe = 1 Rises from chair Unable to without help = 0 Able, uses arms to help = 1 Able without use of arms = 2 Attempts to rise Unable to without help = 0 Able, requires > 1 attempt = 1 Able to rise, 1 attempt = 2 Immediate standing balance (first 5 seconds) Unsteady (staggers, moves feet, trunk sway) = 0 Steady but uses walker or other support = 1 Steady without walker or other support = 2 Standing balance Unsteady = 0 Steady but wide stance and uses support = 1 Narrow stance without support = 2 Nudged Begins to fall = 0 Staggers, grabs, catches self = 1 Steady = 2 Eyes closed Unsteady = 0 Steady = 1 Turning 360 degrees Discontinuous steps = 0 Continuous = 1 Unsteady (grabs, staggers) = 0 Steady = 1 Sitting down Unsafe (misjudged distance, falls into chair) = 0 Uses arms or not a smooth motion = 1 Safe, smooth motion = 2 Balance score 14/16 GAIT SECTION Patient stands with therapist, walks across room with or without walking aid at usualpace Indication of gait (Immediately after told to go .) Any hesitancy or multiple attempts = 0 No hesitancy = 1 Step length and height Step to = 0 Step through R = 1 Step through L = 1 Foot clearance Foot drop = 0 L foot clears floor = 1 R foot clears floor = 1 Step symmetry Right and left step length not equal = 0 Right and left step length appear equal = 1 Step continuity Stopping or discontinuity between steps = 0 Steps appear continuous = 1 Path Marked deviation = 0 Mild/moderate deviation or uses w. aid = 1 Straight without w. aid = 2 Trunk Marked sway or uses w. aid = 0 No sway but flex. knees or back or uses arms for stability = 1 No sway, flex., use of arms or w. aid = 2 Walking time Heels apart = 0 Heels almost touching while walking = 1 Gait score 03/20 Total Score = Balance + Gait score Risk of Falls: ?18 High 19-23 Moderate ?24 Low Statistics: Minimal Detectable Change (MDC): 5.0 for elderly (Sandy et al, 2006); 6.0 after acute strok e (Loik et al, 2013) Minimal Clinically Important Difference (MCID): not established Cut-Off Scores: 19 for elderly (Sandy et al, 2006); <20 for those with PD (Abner et al , 2007); <20 for those with chronic stroke (Snow et al, 2007); 21 for elderly (Dimple et a rani, 2010) Normative Data: 26.21(3.4) males 65-79, 25.16 (4.3) females 65-79, 23.29 (6.02) males >80, 17.20 (8.32) females >80(Miguel et al, 2009); mean score of 27.5 (0.65) with annual average decr ease of 0.5 (0.4), average age of 78.5 (3.7) of 59 subjects (Nareshoh et al, 2003) koum, Sweta Hollis MD - 01/20/2014 8:59 AM PDTFormatting of this note might be different from th e original. Progress Notes by Sweta Hughes MD at 01/20/14 0859 Author: Sweta Hughes MD Service: Nephrology Author Type: Physician Filed: 01/20/1402 Date of Service: 01/20/14858 Status: Signed Stoner Hand: Sweta Hughes MD (Physician) [facility] Service: Nephrology Progress Note The patient says that he feels 'better' today. he denies any cp, sob, n/v, abd pain. his u rine output is adequate. The following portions of the patient's history were reviewed and updated as appropriate: l aboratory data, radiologic studies, allergies, current medications, and problem list. BP 136/61 | Pulse 69 | Temp(Src) 98.2 F (36.8 C) (Oral) | Resp 18 | Ht 1.753 m (5' 9") | Wt 91.6 kg (201 lb 15.1 oz) | BMI 29.81 kg/m2 | SpO2 100% General appearance: Pleasant, not in acute distress. Lungs: Clear to auscultation bilaterally and resonant. There are no wheezes. Heart: Regular rate and rhythm without any rub, gallop. Unchanged systolic murmur. Abdominal exam: Soft and nontender with normal bowel sounds. Extremities: Warm to touch with no leg edema. There is no cyanosis or clubbing. Neurological: Awake, alert, and oriented to time, place, and person. Normal gross motor po wer. There is no asterixis. Lab Results Component Value Date BUN 73* 01/20/2014 CREATININE 4.18* 01/20/2014 EGFR 15* 01/20/2014 NA 140 01/20/2014 K 3.7 01/20/2014 CL 111* 01/20/2014 CO2 21* 01/20/2014 CA 8.5 01/20/2014 PHOS 4.5 01/20/2014 MG 1.6* 01/20/2014 ALB 2.7* 01/20/2014 HGB 9.3* 01/20/2014 Assessment: Mr. Vital is a 68 y.o. male patient with severe CKD. Severe hemorrhagic anemia, from bleeding gastric ulcer. Better & stable now (2D Echo: normal LVSF; moderate LV dilatation; moderate ; mild pulm HTN) Recommendations: No further Epo shots scheduled this hospitalization (got 20K on 01/18/14) No acute KRT indication He will need a repeat RFP, Mag, H/H on 01/24/14 as outpt cc to my office plz I will sign off at this time. plz call with Q's or concerns SWETA HUGHES MD 01/20/2014 Thomas Rosa MD - 01/19/2014 5:25 PM PDT Progress Notes by Thomas Montiel MD at 01/19/14 2205 Author: Thomas Montiel MD Service: Hospitalist Author Type: Physician Filed: 01/20/14 1506 Date of Service: 01/19/141724 Status: Addendum Stoner Hand: Thomas Montiel MD (Physician) Related Notes: Original Note by Thomas Montiel MD (Physician) filed at 01/19/14 1735 [facility] Service: Hospitalist Progress Note Hospital Day: LOS: 2 days Post-Op Day: 1 Day Post-Op Subjective SUBJECTIVE Patient Summary: refer to H&P and consult notes for details Events Overnight: Pt seen and examined,he denies CP or SOB or abdominal pain,labile B P,s/p EGD, improved H&H after 6 units of PRBCs total, stable renal function.addressed all hi s questions. Scheduled Medications [START ON 01/20/2014] amLODIPine 10 mg Oral Daily atorvastatin 40 mg Oral Nightly carvedilol 25 mg Oral BID WC EPINEPHrine (1:10,000) insulin aspart 0-3 Units Subcutaneous Nightly insulin aspart 0-6 Units Subcutaneous TID AC insulin lispro protamine-insulin lispro 10 Units Subcutaneous BID AC sodium bicarbonate 1,300 mg Oral TID sodium chloride 10 mL Intravenous Q8H terazosin 10 mg Oral Nightly Continuous Infusions dextrose pantoprazole 8 mg/hr (01/19/14 1609) PRN Medications acetaminophen, acetaminophen, dextrose, dextrose, dextrose, glucagon, glucagon, ondansetron , ondansetron, polyethylene glycol, sodium chloride (IV) Objective OBJECTIVE Vital Signs: BP 172/74 | Pulse 71 | Temp(Src) 98.3 F (36.8 C) (Oral) | Resp 18 | Ht 1.753 m (5' 9") | Wt 91.6 kg (201 lb 15.1 oz) | BMI 29.81 kg/m2 | SpO2 98% General appearance: alert, appears stated age, cooperative and no distress Head: Normocephalic, without obvious abnormality, atraumatic Neck: no adenopathy, no carotid bruit, no JVD, supple, symmetrical, trachea midline and thy roid not enlarged, symmetric, no tenderness/mass/nodules Lungs: clear to auscultation bilaterally Heart: regular rate and rhythm, S1, S2 normal, systolic murmur, click, rub or gallop Abdomen: soft, non-tender; bowel sounds normal; no masses, no organomegaly can be apprecia doyle Extremities: extremities normal, atraumatic, no cyanosis or edema Pulses: 2+ and symmetric Neurologic: Grossly normal AXOX 3 did not test for gait due to risk of falling DATA CBC: Lab Results Component Value Date WBC 6.1 01/19/2014 RBC 3.02* 01/19/2014 HGB 9.8* 01/19/2014 HCT 28.6* 01/19/2014 MCV 87.8 01/19/2014 MCH 30.1 01/19/2014 MCHC 34.3 01/19/2014 RDW 47.7 01/19/2014 PLT 144* 01/19/2014 MPV 7.6 01/19/2014 DIFFTYPE AUTOMATED 01/19/2014 CMP: Lab Results Component Value Date NA 140 01/19/2014 K 3.7 01/19/2014 CL 111* 01/19/2014 CO2 21* 01/19/2014 ANIONGAP 12 01/19/2014 GLUF 128* 01/19/2014 BUN 91* 01/19/2014 CREATININE 4.39* 01/19/2014 BCR 21 01/18/2014 CA 8.5 01/19/2014 CA 9.4 11/15/2013 PROT 4.5* 01/18/2014 ALB 2.8* 01/19/2014 GLOB 1.8 01/18/2014 BILITOT 0.3 01/18/2014 ALP 11* 01/18/2014 AST 21 01/18/2014 ALT 10 01/18/2014 EGFR 14* 01/19/2014 Recent Labs Lab 01/19/14 0510 MG 1.7 ECHO Patient Name: BRIANNA VITAL Date of : 1945 Performing Physician: Angelo Wiley MD INDICATIONS Murmur valvular abnormality CONCLUSIONS 1. Moderate aortic stenosis with peak/mean pressure gradient of 47.59mmHg / 28.15mmHg, the aortic valve area by continuity equation is 1.4cm. FINDINGS -------- ECG rhythm: Sinus rhythm. Study: A 2-dimensional transthoracic echocardiogram with m-mode, spectral and color flow Do ppler was perfomed. Study: This was a technically adequate study. Left Ventricle: Overall left ventricular systolic function is normal with, an EF between 65 - 70 %. PROBLEM LIST Principal Problem: Acute upper GI bleed Active Problems: CKD (chronic kidney disease), stage V Diabetes mellitus HTN (hypertension) Diabetic nephropathy Iron deficiency Anemia of chronic renal failure Acute posthemorrhagic anemia Melena Hematemesis Murmur, cardiac Moderate aortic stenosis ASSESSMENT & PLAN 1. Acute upper GIB due to active bleeding gastric ulcer at greater curvature side s/p epi i njection, cauterization and endo clip per EGD note continue PPI gtt, diet as tolera doyle, continue to hold ASA/plavix. H&H is stable now and close to goal. 2.CKD5 followed by . 3.HTN continue current BP meds and add Norvasc in AM continue to monitor and adjust as need ed 4.moderate aortic stenosis i have d/w and he recc outpt follow up and the patien t is informed and agrees,he denies CP or SOB or dizziness. 5.DM2 uncontrolled BG will continue low ISS and resume Humalog at home dose monitor BG and adjust as needed 6.DVT px avoid heparin products due to recent GIB ,only SCDs discharge when cleared per GI /nephrology Disposition: Admitted Code Status: Full Code Thomas Montiel MD 01/19/2014 koum, Sweta Hollis MD - 01/19/2014 8:31 AM PDT Progress Notes by Sweta Hughes MD at 01/19/14830 Author: Sweta Hughes MD Service: Nephrology Author Type: Physician Filed: 01/20/14857 Date of Service: 01/19/14830 Status: Signed Stoner Hand: Sweta Hughes MD (Physician) [facility] Service: Nephrology Progress Note The patient says that he feels 'better' today. he denies any cp, sob, n/v, abd pain. his u rine output is adequate. The following portions of the patient's history were reviewed and updated as appropriate: l aboratory data, radiologic studies, allergies, current medications, and problem list. BP 150/65 | Pulse 73 | Temp(Src) 98.7 F (37.1 C) (Oral) | Resp 18 | Ht 1.753 m (5' 9") | Wt 91.6 kg (201 lb 15.1 oz) | BMI 29.81 kg/m2 | SpO2 97% General appearance: Pleasant, not in acute distress. Lungs: Clear to auscultation bilaterally and resonant. There are no wheezes. Heart: Regular rate and rhythm without any rub, gallop. Unchanged systolic murmur. Abdominal exam: Soft and nontender with normal bowel sounds. Extremities: Warm to touch with no leg edema. There is no cyanosis or clubbing. Neurological: Awake, alert, and oriented to time, place, and person. Normal gross motor po wer. There is no asterixis. Lab Results Component Value Date BUN 91* 01/19/2014 CREATININE 4.39* 01/19/2014 EGFR 14* 01/19/2014 NA 140 01/19/2014 K 3.7 01/19/2014 CL 111* 01/19/2014 CO2 21* 01/19/2014 CA 8.5 01/19/2014 PHOS 4.4 01/19/2014 MG 1.7 01/19/2014 ALB 2.8* 01/19/2014 HGB 9.8* 01/19/2014 Assessment: Mr. Vital is a 68 y.o. male patient with severe CKD. Severe hemorrhagic anemia, from bleeding gastric ulcer. (2D Echo: normal LVSF; moderate LV dilatation; moderate ; mild pulm HTN) Recommendations: No further Epo shots scheduled this hospitalization (got 20K on 01/18/14) Stop IV Fe, as his Fe stores are oversaturated No acute KRT indication SWETA HUGHES MD 01/19/2014 onversion Transa ction, Provider Unknown - 01/19/2014 12:21 AM PDT Progress Notes by Layton Barnett RN at 01/19/14 002 Author: Layton Barnett RN Service: (none) Author Type: Registered Nurse Filed: 01/19/14 002 Date of Service: 01/19/1420 Status: Signed Stoner Hand: Layton Barnett RN (Registered Nurse) Received report from Anahy CHEN at 0000 and took over pt assignment. Physical assessments complete and I agree with Flores's pt assessment charting at beginning of shift. Will continu e to monitor for changes. Layton Barnett RN onver rosie Transaction, Provider Unknown - 01/18/2014 10:00 PM PDT Nurse Progress Note by Anayh Crouch RN at 01/18/142199 Author: Anahy Crouch RN Service: (none) Author Type: Registered Nurse Filed: 01/18/14 9602 Date of Service: 01/18/142199 Status: Signed Stoner Hand: Anahy Crouch RN (Registered Nurse) Received report from Flores CHEN at 2130 and took over pt assignment. Physical assessments co mplete and I agree with Flores's pt assessment charting. Will continue to monitor for change s. Anahy Crouch RN onver rosie Transaction, Provider Unknown - 01/18/2014 2:55 PM PDT Case Management by CARLTON Islas at 01/18/14 8665 Author: CARLTON Islas Service: (none) Author Type: [employer] Targeting Supervisor Filed: 01/18/14 9197 Date of Service: 01/18/14 1455 Status: Signed Stoner Hand: CARLTON Islas ([employer] Targeting Supervisor) 01/18/14 1325 Discharge Planning Evaluation Admitting Diagnosis Upper Gi Bleed Readmission Yes-within 30 days Living Arrangements Spouse/significant other Support Systems Spouse/significant other Type of Residence Private residence House type House-1 story Independent with ADL's Yes Independent with Mobility Yes Home Care Services No Caregiver after Discharge No Mental Status Oriented Power of Senior [employer] Consultant No Anticipated Discharge Plan Post Acute Care Needs None at this time Plan communicated to patient/family Yes Resources Financial concerns No Transportation issues No Patient/Family concerns No Prescription Plan Yes Met with: Pt and discussed discharge planning, Pt is a 68 y.o., male Patient's PCP is: STAR HARRIS Patient's insurance: Medicare Coverage concerns: No concerns Medication coverage/concerns: No concerns [facility] Bedside Delivery: Community resources utilized / needed: None Assistance in transportation: Pt drives Identification of any specific education / training: None Barriers to Discharge / Alternative housing needed: None Anticipated DCP: Home LISBETH BAZAN onver rosie Transaction, Provider Unknown - 01/18/2014 3:46 AM PDT Progress Notes by Melvi Nichole RPH at 01/18/14345 Author: Melvi Nichole RPH Service: (none) Author Type: Pharmacist Filed: 01/18/14345 Date of Service: 01/18/14345 Status: Signed Stoner Hand: Melvi Nichole RPH (Pharmacist) Clinical Pharmacy Note: Renal Monitoring Brianna Vital 68 y.o. male Height: 177.8 cm Weight: 89.4 kg CREATININE: 4.32 mg/dL ABNORMAL (01/17/14 2350) Estimated creatinine clearance - Cockcroft-Gault CrCl: 18.2 mL/min Pharmacy dosing for renal function per Dr. Kumar. Currently there are no medications needing to be adjusted. Pharmacy will continue to monito r for changes in medication orders and in renal function and adjust accordingly per P & T co mmittee. Melvi Nichole PharmMaycol 01/18/2014 3:46 AM docume nted in this encounter H&P Notes Sofie Kumar - 01/18/2014 2:24 AM PDTFormatting of this note might be different from th e original. H&P by Sofie Kumar MD at 01/18/14223 Author: Sofie Kumar MD Service: (none) Author Type: Physician Filed: 01/21/14 0555 Date of Service: 01/18/14223 Status: Signed Stoner Hand: Sofie Kumar MD (Physician) [facility] Service: Hospitalist Admission History & Physical Date of Admission: 01/17/2014 Requesting Physician: , Emergency Department Reason for Admission: Upper gi bleed, melena, arf on ckd5, severe anemia History Obtained From: patient, chart review, Quality of history: good CHIEF COMPLAINT: Chief Complaint Chief Complaint Patient presents with GI Bleeding "black diarrhea" since yesterday HISTORY OF PRESENT ILLNESS The patient is a 68 y.o. male with significant past medical history of Diabetes mellitus, hypertension, hyperlipidemia, stroke with residual tingling and numbness of the left upper e xtremity, obstructive sleep apnea, not on CPAP, and chronic kidney disease, stage V, with me tabolic acidosis. Follows with Dr. Hughes. Last admission he was noted to have diarrhea. He w as tested negative for Clostridium difficile and norovirus. Dr. Zaldivar was consulted. He recom mended mesalamine and oral vancomycin with p.r.n. Imodium, and follow up with GI as outpatie nt. Since discharge, the patient apparently has done well; however, on Friday, that is 2 days p rior to this admission, he noted coffee-ground emesis and melena. He has had 2 episodes of m elenic stool; however, today he has not had any further nausea or vomiting, denied any brigh t red blood per rectum, denies any epigastric or abdominal pain. The patient is on aspirin a nd Plavix. Not on Coumadin. Denied recent use of nonsteroidal antiinflammatory medications. Denies history of GERD or peptic ulcer disease. The patient now recalls having intermittent black stools for the past month. Has not undergone EGD or colonoscopy.Today the patient felt generalized weakness, lightheadedness with ambulation. Denied any left precordial chest antonina n, jaw pain, arm pain, interscapular pain. No edema in the lower extremities or dyspnea. No prior history of [place]. He was evaluated by Dr. Hughes in the office and was directed to [facility] emergency room for upper GI bleed. His vital signs were stable. Labs showed wh ite count 6.9, hemoglobin 6 and hematocrit 18, albumin 3.2, sodium 142, potassium 4.4, BUN 9 5, and creatinine of 4.87. An EKG showed sinus rhythm, no acute ST changes to suggest injury or ischemia. The patient was given 1 unit of blood, Protonix 80 mg IV x1 dose, and then tra nsferred to [facility] for GI evaluation and [id number] renal fail ure and therefore nephrology care. After 1 unit of blood, repeat H and H here still shows hemoglobin 6, hematocrit 18. Two uni ts of PRBC ordered by Dr. Lujan. Dr. Hughes had recommended 40 mg Lasix with each unit of bloo d transfusion. Hospitalist service consulted to admit. At this time, the patient denies any dizziness or lightheadedness while laying down and no shortness of breath or chest pain. REVIEW OF SYSTEMS Review of Systems CONSTITUTIONAL: No recent change in weight. Appetite has been poor. No fever, positive for chills. HEENT: Denies any headache, thrush, odynophagia. NECK: No neck pain or neck stiffness. RESPIRATORY: Denies asthma, not a smoker, no pleuritic chest pain, shortness of breath, hem optysis, wheezing, or cough. CARDIOVASCULAR: No prior history of [place], congestive heart failure, irregular heart rhythm, s yncope. No edema, PND, orthopnea. GASTROINTESTINAL: Denies prior history of GI bleed. Denies any bright red blood per rectum. No history of hemorrhoids. Recent CT scan showed diverticulosis. GENITOURINARY: No dysuria, polyuria, or hematuria. Normal volume urine. Chronic kidney dise ase, stage V, baseline creatinine around 3.63 at the time of discharge. ENDOCRINOLOGIC: Diabetes mellitus, well controlled. DERMATOLOGIC: No rash or decubitus ulcers. PSYCHIATRIC: Denies anxiety, depression, or panic attacks. NEUROLOGY : Denies history of seizures . Has h/o stroke. Denies any new focal neurological symptoms Past Medical History Diagnosis Date Hypertension Hyperlipidemia Diabetes mellitus, type 2 TIA (transient ischemic attack) 2010 Heart murmur Stroke surface stroke Sleep apnea dx light apnea Chronic kidney disease Anemia of chronic renal failure 01/24/2012 Acute upper GI bleed 01/18/2014 Past Surgical History Procedure Date Colonoscopy Cataract extraction 2004? Allergies Allergen Reactions Penicillins Other (See Comments) Prior to Admission medications Medication Sig Start [...] mg by mouth daily. Yes Historical Provider epoetin lakeisha (PROCRIT) 85134 UNIT/ML injection Inject 1 mL into the skin every 14 (fourteen ) days. 12/27/13 Yes Sweta Hughes MD fenofibrate (TRIGLIDE) 160 MG tablet Take 48 mg by mouth daily. Yes Historical Provider ferrous gluconate (FERGON) 325 MG tablet Take 5 mg by mouth 2 (two) times daily. Yes Hist orical Provider glucose blood test strip 1 each by Other route as needed. Use as instructed Yes Historica l Provider insulin lispro protamine-insulin lispro (HUMALOG 75/25) (75-25) 100 UNIT/ML injection Injec t 10 Units into the skin 2 (two) times daily before meals. 01/01/14 01/01/15 Yes Jeramie Ro mesalamine (DELZICOL) [address] Take 1 capsule by mouth 4 (four) times daily before meals and nightly. Administer 1 hour before or 2 hours after a meal. The capsule should be swallowed whole; do not break, chew, or crush 01/01/14 01/31/14 Yes Thomas Montiel MD niacin 500 MG tablet Take 500 mg by mouth 2 (two) times daily. Yes Historical Provider potassium chloride (K-DUR,KLOR-CON) 20 MEQ tablet Take 2 tablets by mouth daily with breakf ast. 01/01/14 01/01/15 Yes Thomas Montiel MD sitagliptan (JANUVIA) 100 MG tablet Take 50 mg by mouth daily. 1/2 tab Yes Historical Pro vider sodium bicarbonate 650 MG tablet Take 2 tablets by mouth 3 (three) times daily. 01/01/14 7/11/21 Yes Thomas Montiel MD terazosin (HYTRIN) 5 MG capsule Take 10 mg by mouth nightly. 2 x 5 mg capsules once daily Yes Historical Provider Family History Problem Relation Age of Onset Cancer Mother Heart disease Father History Social History Marital Status: Spouse Name: N/A Number of Children: 2 Years of Education: N/A Occupational History Not on file. Social History Main Topics Smoking status: Never Smoker Smokeless tobacco: Not on file Alcohol Use: No Drug Use: No Sexually Active: Not Currently -- Female partner(s) Control/ Protection: Abstinence Other Topics Concern Not on file Social History Narrative Lives in [facility], independent with activities of daily living, no falls, full co de. History Smoking status Never Smoker Smokeless tobacco Not on file History Alcohol Use No History Drug Use No PHYSICAL EXAM Vital Signs: BP 135/64 | Pulse 82 | Temp 98 F (36.7 C) (Oral) | Resp 18 | SpO2 100% Physical Exam GENERAL: Pallor present, alert and oriented x3. Moderately obese. No acute distress. HEENT: Pupils equal and reactive to light. No thrush, moist oral mucosa. NECK: Supple, no JVD. LUNGS: Clear to auscultation bilaterally. No wheezes or rales. HEART: Regular rate and rhythm, prominent murmur, possible aortic stenosis and mitral valve regurgitation. No chest wall tenderness to palpation, no gallop. ABDOMEN: Nondistended, soft, nontender, no guarding, no rigidity. Bowel sounds present norm ally. EXTREMITIES: Bilateral lower extremities have no signs of DVT, cellulitis, or ankle edema. SKIN: No rash or decubitus ulcers. BACK: Normal inspection, no point tenderness to the spine, no CVA tenderness. NEUROLOGIC: Grossly nonfocal. PSYCHIATRIC: Normal mood and affect. DATA Results for orders placed during the hospital encounter of 01/17/14 (from the past 24 hour( s)) [facility] CARD PANEL W/O TRP (ED ONLY) Collection Time 01/17/14 11:50 PM Component Value Range WBC 7.3 3.8 - 11.0 K/uL RBC 1.82 (*) 4.20 - 5.70 M/uL HGB 5.8 (*) 13.2 - 17.0 g/dL HCT 16.4 (*) 39.0 - 50.0 % MCV 90.3 80.0 - 100.0 fl MCH 31.8 27.0 - 34.0 pg MCHC 35.2 32.0 - 35.5 g/dL RDW SD 50.3 37 - 53 fl PLT 208 150 - 400 K/uL MPV 7.4 DIFF TYPE AUTOMATED NEUTROPHILS 67.3 LYMPHOCYTES 24.1 MONOCYTES 6.5 EOSINOPHILS 1.4 BASOPHILS 0.7 NEUTROPHILS ABS 4.9 1.9 - 7.4 K/uL LYMPHOCYTES ABS 1.8 1.0 - 3.9 K/uL MONOCYTES ABS 0.5 0 - 0.8 K/uL EOSINOPHILS ABS 0.1 0 - 0.5 K/uL BASOPHILS ABS 0.1 0 - 0.1 K/uL SODIUM 143 135 - 143 mmol/L POTASSIUM 4.5 3.5 - 4.9 mmol/L CHLORIDE 114 (*) 99 - 109 mmol/L CO2 19 (*) 23 - 32 mmol/L ANION GAP AGAP 14 5 - 20 mmol/L GLUCOSE 115 (*) 65 - 99 mg/dL BUN 95 (*) 8 - 25 mg/dL CREATININE 4.32 (*) 0.70 - 1.30 mg/dL BUN/CREAT 22 CALCIUM 7.9 (*) 8.5 - 10.2 mg/dL TOTAL PROTEIN 4.8 (*) 6.3 - 8.2 g/dL Albumin 2.6 (*) 3.3 - 4.8 g/dL GLOBULIN 2.2 1.3 - 4.9 g/dL A/G 1.2 1.0 - 2.4 TBIL 0.3 0.1 - 1.5 mg/dL ALK PHOS 14 (*) 35 - 115 U/L AST 19 10 - 45 U/L ALT 15 10 - 65 U/L EGFR 15 (*) >60 mL/min/1.73m2 CPK 87 55 - 400 U/L INR 1.2 APTT <20 (*) 23 - 32 seconds MMB 2.2 0.5 - 3.6 ng/mL CK-MB Index 2.5 TYPE AND SCREEN Collection Time 01/17/14 11:50 PM Component Value Range ABO/RH(D) A NEGATIVE ANTIBODY SCREEN NEGATIVE ARM BAND NUMBER [id number] UNIT NUMBER [id number] UNIT NUMBER Value: Testing performed at [facility];[address] [place] [id number] BLOOD COMPONENT TYPE Value: LEUKODEPLETED PC,A Testing performed at [facility];[address] [place] [address] 16717 UNIT DIVISION Value: 00 Testing performed at [facility];[address] [place] [address] [id number] STATUS OF UNIT Value: ISSUED Testing performed at [facility];[address] [place] [address] 22093 TRANSFUSION STATUS Value: OK TO TRANSFUSE Testing performed at [facility];[address] [place] [address] [id number] CROSSMATCH RESULT Value: COMPATIBLE Testing performed at [facility];[address] [place] [address] 87638 UNIT NUMBER [id number] BLOOD COMPONENT TYPE LEUKODEPLETED PC,B UNIT DIVISION 00 STATUS OF UNIT ALLOCATED TRANSFUSION STATUS OK TO TRANSFUSE CROSSMATCH RESULT COMPATIBLE Old records ; CT abdomen pelvis without contrast IMPRESSION: 1. Extensive colonic diverticulosis and diffuse distal [...] and senescent, likely incidental to acute symptoms. KIDNEYS AND BLADDER 12/27/2013 7:02 PM IMPRESSION: 1. There is no evidence of hydronephrosis. 2. Mild increased echogenicity and cortical thinning of the kidneys is nonspecific and may reflect mild medical renal disease. 3. Incidental right renal cyst. Chest PA and Lateral [[id number]] Status: Final result Study Result IMPRESSION: 1. No evident acute infiltrate, failure or active cardiopulmonary disease to explain sympto ms 2. Degenerative changes and midthoracic compression fracture, without retropulsion. Unknown chronicity. LEM LIST Principal Problem: *Acute upper GI bleed Active Problems: CKD (chronic kidney disease), stage V Diabetes mellitus HTN (hypertension) Diabetic nephropathy Iron deficiency Anemia of chronic renal failure Metabolic acidosis, normal anion gap (NAG) Acute posthemorrhagic anemia Melena Hematemesis ASSESSMENT & PLAN 1. Acute upper GI bleed, presenting with melena and hematemesis; however, no abdominal pain . Likely etiology peptic ulcer disease, AV malformations, while on aspirin and Plavix. Admit to acute care as I anticipate more than 2 midnight stay for blood transfusion, close monito ring for hemodynamic stability. Ordered Protonix drip and will hold aspirin, Plavix. Consult GI in a.m. Keep him n.p.o. for possible endoscopy. Denies history of cirrhosis and esophage al varices. 2. Acute posthemorrhagic anemia and chronic iron deficiency and anemia of chronic kidney di sease. Hemoglobin and hematocrit dropped from 8 to 6 in 2 weeks. The patient has severe symp tomatic anemia secondary to acute GI bleed. Already received 1 unit of PRBC transfusion with out any change in hemoglobin and hematocrit. Ordered 2 more units. Will need EGD with/ witho ut colonoscopy. Hemoglobin and hematocrit q.6h. ordered. 3. Acute renal failure, on chronic kidney disease, stage V. Creatinine bumped from 3.6 to 4 .32. Most likely secondary to upper GI bleed. Dr. Hughes consulted. Avoid nephrotoxic medicat ions and NSAIDs. Nonoliguric at this time. Monitor daily renal function. At this time, no im mediate indication for renal replacement treatment. 4. Metabolic acidosis secondary to renal failure. Continue oral sodium bicarbonate. 5. Diabetes mellitus type 2, with controlled hyperglycemia. Placed on low-dose insulin slid ing scale. Hold sitagliptin due to acute renal failure. N.p.o., therefore hold basal insulin . 6. Hypertension. At this time, controlled well, not hypotensive. Will continue with carvedi lol and hold other antihypertensive medications. 7. Symptomatic anemia with lightheadedness. Fall precautions to be maintained. 8.Cardiac murmur heard order 2-D echocardiogram to evaluate for valvular heart disease. Addendum: 6:54am Consulted Disposition: Acute care Code Status: Full code Primary Care Physician: STAR KUMAR MD 01/18/2014 documented in this encou nter Consult Notes Terrie Vergara MD - 01/18/2014 5:19 PM PDTFormatting of this note might be differ ent from the original. Consult* by Terrie Vergara MD at 01/18/14 5105 Author: Terrie Vergara MD Service: (none) Author Type: Physician Filed: 01/18/14 1800 Date of Service: 01/18/141718 Status: Signed Stoner Hand: Terrie Vergara MD (Physician) [facility] Service: Gastroenterology Initial Consult Note Date of Admission: 01/17/2014 Reason for Consultation: Upper GI bleeding and severe anemia Requesting Physician: Hospitalist History Obtained From: patient, chart review CHIEF COMPLAINT: Vomiting dark gastric content, passing dark stool associated with weaknes s HISTORY OF PRESENT ILLNESS The patient is a 68 y.o. male with significant past medical history of type 2 diabetes, CKD , hypertension, hyperlipidemia,stroke, recent diagnosis of aortic stenosis who presents with history of vomiting dark gastric content x 2 one day prior to arrival. He also had 2 black stool and profound weakness during the last few days. He denies chest pain, SOB, heartburn, dysphagia, abdominal pain,taking NSAID except baby aspirin. He is also on Plavix. He is not on PPI. He still has recurrent diarrhea but with only one loose stool per day. Upon arrival to local hospital, his Hb was 5.8. He was transfused with one unit of PRBC and was transfuse d with one unit then he was transferred to [facility] for further evaluation. He denies history of GI bleeding in the past. REVIEW OF SYSTEMS Review of Systems Constitutional: Positive for fatigue. Past Medical History Diagnosis Date Hypertension Hyperlipidemia Diabetes mellitus, type 2 TIA (transient ischemic attack) 2010 Heart murmur Stroke surface stroke Sleep apnea dx light apnea Chronic kidney disease Anemia of chronic renal failure 01/24/2012 Acute upper GI bleed 01/18/2014 Past Surgical History Procedure Date Colonoscopy Cataract [...] tablet Take 75 mg by mouth daily. epoetin lakeisha (PROCRIT) 78987 UNIT/ML injection Inject 1 mL into the skin every 14 (four teen) days. 6 mL 4 fenofibrate (TRIGLIDE) 160 MG tablet Take 48 mg by mouth daily. ferrous gluconate (FERGON) 325 MG tablet Take 5 mg by mouth 2 (two) times daily. glucose blood test strip 1 each by Other route as needed. Use as instructed insulin lispro protamine-insulin lispro (HUMALOG 75/25) (75-25) 100 UNIT/ML injection I nject 10 Units into the skin 2 (two) times daily before meals. 15 mL 0 mesalamine (DELZICOL) [address] Take 1 capsule by mouth 4 (four) times daily be fore meals and nightly. Administer 1 hour before or 2 hours after a meal. The capsule should be swallowed whole; do not break, chew, or crush 120 capsule 0 niacin 500 MG tablet Take 500 mg by mouth 2 (two) times daily. potassium chloride (K-DUR,KLOR-CON) 20 MEQ tablet Take 2 tablets by mouth daily with br eakfast. 60 tablet 0 sitagliptan (JANUVIA) 100 MG tablet Take 50 mg by mouth daily. 1/2 tab sodium bicarbonate 650 MG tablet Take 2 tablets by mouth 3 (three) times daily. 180 ta blet 0 terazosin (HYTRIN) 5 MG capsule Take 10 mg by mouth nightly. 2 x 5 mg capsules once latha ly Scheduled Medications atorvastatin 40 mg Oral Nightly carvedilol 25 mg Oral BID WC [COMPLETED] epoetin lakeisha 20,000 Units Subcutaneous Once furosemide 20 mg Intravenous See Admin Instructions [COMPLETED] furosemide 40 mg Intravenous Once [COMPLETED] furosemide 40 mg Intravenous Once insulin aspart 0-3 Units Subcutaneous Nightly insulin aspart 0-6 Units Subcutaneous TID AC lidocaine HCl [COMPLETED] metoclopramide 10 mg Intravenous Once propofol sodium bicarbonate 1,300 mg Oral TID sodium chloride 10 mL Intravenous Q8H terazosin 10 mg Oral Nightly [DISCONTINUED] furosemide 40 mg Intravenous Once [DISCONTINUED] furosemide 40 mg Intravenous Once [DISCONTINUED] sodium bicarbonate 1,296 mg Oral TID [DISCONTINUED] sodium chloride 0.9 % 10 mL Intravenous Q8H Continuous Infusions dextrose pantoprazole 8 mg/hr (01/18/14 0854) PRN Medications acetaminophen, acetaminophen, dextrose, dextrose, dextrose, glucagon, glucagon, ondansetron , ondansetron, polyethylene glycol, sodium chloride Family History Problem Relation Age of Onset Cancer Mother Heart disease Father History Smoking status Never Smoker Smokeless tobacco Not on file History Alcohol Use No PHYSICAL EXAM Vital Signs: BP 140/65 | Pulse 66 | Temp 98.7 F (37.1 C) (Oral) | Resp 17 | Ht 1.753 m (5' 9") | Wt 89.4 kg (197 lb 1.5 oz) | BMI 29.09 kg/m2 | SpO2 90% Temp: [97.8 F (36.6 C)-99.4 F (37.4 C)] 98.4 F (36.9 C) (01/18 1754) BP: (115-144)/(56-70) 120/56 mmHg (01/18 1754) Heart Rate: [64-87] 66 (01/18 1754) Resp: [16-20] 18 (01/18 1754) SpO2: [90 %-100 %] 99 % (01/18 1754) Height: [175.3 cm (5' 9")-177.8 cm (5' 10")] 175.3 cm (5' 9") (01/18 345) Weight: [89.359 kg (197 lb)-89.4 kg (197 lb 1.5 oz)] 89.4 kg (197 lb 1.5 oz) (01/18 345) BMI (Calculated): [28.3-29.2] 29.2 (01/18 345) FiO2 : [52 %-58 %] 58 % (01/18 1743) Physical Exam Constitutional: He appears well-developed. No distress. HENT: Head: Atraumatic. Nose: Nose normal. Eyes: EOM are normal. Pupils are equal, round, and reactive to light. Moderately pale conjunctiva Neck: Normal range of motion. Neck supple. Cardiovascular: Normal rate and regular rhythm. Exam reveals no gallop and no friction rub . Murmur heard. Pulmonary/Chest: Effort normal and breath sounds normal. Abdominal: Soft. Bowel sounds are normal. He exhibits no distension and no mass. There is n o tenderness. There is no rebound and no guarding. Musculoskeletal: He exhibits no edema and no tenderness. Neurological: He is alert. Skin: Skin is warm and dry. There is pallor. DATA CBC: Lab Results Component Value Date WBC 7.3 01/18/2014 RBC 2.02* 01/18/2014 HGB 6.9* 01/18/2014 HCT 19.9* 01/18/2014 MCV 91.9 01/18/2014 MCH 30.2 01/18/2014 MCHC 32.8 01/18/2014 RDW 51.2 01/18/2014 PLT 193 01/18/2014 MPV 7.7 01/18/2014 DIFFTYPE AUTOMATED 01/18/2014 CMP: Lab Results Component Value Date NA 140 01/18/2014 K 4.5 01/18/2014 CL 114* 01/18/2014 CO2 19* 01/18/2014 ANIONGAP 12 01/18/2014 GLUF 134* 01/18/2014 BUN 94* 01/18/2014 CREATININE 4.46* 01/18/2014 BCR 21 01/18/2014 CA 8.4* 01/18/2014 CA 9.4 11/15/2013 PROT 4.5* 01/18/2014 ALB 2.7* 01/18/2014 GLOB 1.8 01/18/2014 BILITOT 0.3 01/18/2014 ALP 11* 01/18/2014 AST 21 01/18/2014 ALT 10 01/18/2014 EGFR 14* 01/18/2014 PT/INR: Lab Results Component Value Date INR 1.2 01/17/2014 PROBLEM LIST Principal Problem: *Acute upper GI bleed Active Problems: CKD (chronic kidney disease), stage V Diabetes mellitus HTN (hypertension) Diabetic nephropathy Iron deficiency Anemia of chronic renal failure Acute posthemorrhagic anemia Melena Hematemesis Murmur, cardiac Moderate aortic stenosis ASSESSMENT & PLAN Upper GI bleeding Severe anemia Recurrent diarrhea D/dx include bleeding ulcer from aspirin and Plavix gastroenteropathy, Dieulafoy's lesion, angiodysplasia, GI neoplasia Recommendation IV hydration Transfuse to keep Hb > 10 Empiric PPI EGD Code Status: Full Code Primary Care Physician: STAR HARRIS Thank you for allowing me to participate in the care of this patient. TERRIE VERGARA MD 01/18/2014 koum, Abdullahi Teixeira MD - 01/18/2014 11:57 AM PDTFormatting of this note might be different from the o riginal. Consults by Sweta Hughes MD at 01/18/14 6700 Author: Sweta Hughes MD Service: Nephrology Author Type: Physician Filed: 01/18/14 1233 Date of Service: 01/18/14 9928 Status: Signed Stoner Hand: Sweta Hughes MD (Physician) Consult Orders: 1. Inpatient consult to Nephrology [[id number]] ordered by Bao Lujan DO at 01/18/14 0 055 I was asked by the ED team to see Mr. Vital in consult today. As the admitting/consultin g team is familiar with his case, I will not state his past history in detail. Briefly, he i s a 68 y.o. male patient with history as delineated in the Past Medical & Surgical History s ections. He was admitted with severe hemorrhagic anemia. I was called in to evaluate him for that & for his severe CKD. History & ROS obtained from : patient, chart review. The patient has history of severe CKD. He says that he feels 'fair ' today. No history of blurred vision tinnitus, headache, fev er, chills, or cough. No nausea, vomiting, abdominal pain, diarrhea, melena, or hematochezi a. No chest pain, palpitation, dizziness, loss of consciousness, orthopnea, paroxysmal noct urnal dyspnea, or leg edema. No dysuria, incontinence, or symptoms of UTI. For male patien ts: no recent history of frequency, nocturia, weak urinary stream, hesitancy, intermittence, incomplete emptying or urgency. He had 2 nightly nocturia. The following portions of the [...] were reviewed and were otherwise negative. BP 136/62 | Pulse 75 | Temp 97.9 F (36.6 C) (Oral) | Resp 18 | Ht 1.753 m (5' 9") | Wt 89.4 kg (197 lb 1.5 oz) | BMI 29.09 kg/m2 | SpO2 99% General appearance: Pleasant, not in acute distress. Neck: Supple without tracheal deviation or jugular venous distension. Head and ENT: Head is atraumatic. The oropharynx is without erythema or thrush. Eyes: Anicteric. The extraocular muscle movements are normal. Lungs: Clear to auscultation bilaterally. There are no wheezes. Heart: Regular rate and rhythm without any rub, gallop. Unchanged grade 4 mechanical systo lic murmur. Abdominal exam: Soft and nontender with normal bowel sounds. Musculoskeletal: No costovertebral angle tenderness bilaterally. Extremities: Warm to touch with trace leg edema. There is no cyanosis. Skin: There are no rashes, petechiae, or ecchymosis. Neurological: Awake, alert, and oriented to time, place, and person. Normal gross motor po wer. There is no asterixis. Psychiatric: The patient s behavior is normal. Judgment and thought content are normal. Lab Results Component Value Date BUN 94* 01/18/2014 CREATININE 4.46* 01/18/2014 EGFR 14* 01/18/2014 NA 140 01/18/2014 K 4.5 01/18/2014 CL 114* 01/18/2014 CO2 19* 01/18/2014 CA 8.4* 01/18/2014 PHOS 3.5 01/18/2014 MG 1.8 01/18/2014 ALB 2.7* 01/18/2014 HGB 6.9* 01/18/2014 Assessment: Mr. Vital is a 68 y.o. male patient with severe hemorrhagic anemia on a background of a milder anemia of CKD. Likely demand ischemia is apparent now. Renal function is relatively s table now, but it still severely depressed. RENAL FUNCTION: Renal function is relatively stable now (if not slightly better vs yester day AM), but it still severely depressed BLOOD PRESSURE: acceptable ELECTROLYTES: abnormal Sodium: ok Potassium: ok Calcium: Corrected level is okay Magnesium: At the lower side of normal for him at this point in time Phosphorus: ok Acid/Base: Mild met acidemia still despite treatment ANEMIA: Severe still despite 2 units PRBC transfused overnight ALBUMIN: low URINALYSIS: No UTI or hematuria VOLUME STATUS: euvolumic I discussed today with Mr. Vital the meaning of his severe CKD & severe anemia and the i nteraction of that with his hemodynics. Recommendations: 1. IVF tko. 2. No acute indication for KRT at this time. 3. Transfuse to target Hb of 10 as ordered 4. Resend stool occult blood 5. Epo 20K subcut x1 6. Add daily Mag 7. NaHCO3 to 1,300 TID 8. 2D Echo 9. 10. no need to get renal U/S. 11. No need to send rU/A, UCr, Sallie, UN, eos. 12. Strict I/O & daily weights. 13. Dose all of his meds to his current estimated GFR. 14. Continue to avoid all kinds of nephrotoxins. 15. Target euvolumia with a MAP>75 mmHg as possible. 16. Given his tendency for anasarca: Encourage PO intake & close dietitian F/U. Encourage a mbulation safely. Encourage the adequate use of an incentive spirometer. I discussed with the ED team the case. I spent 70 minutes today in reviewing & updating the patient's chart, in addition to patien t education and discussions with the primary/consulting team. Thank you Casi for the opportunity to see this patient in consult today. Please do not h esitate to call me at any time with questions or concerns. SWETA HUGHES MD documented in thi s encounter ED Notes Conversion Transaction, Provider Unknown - 01/18/2014 2:40 AM PDTFormatting of this note m ight be different from the original. ED Notes by Frannie Jurado RN at 01/18/14239 Author: Frannie Jurado RN Service: (none) Author Type: Registered Nurse Filed: 01/18/14244 Date of Service: 01/18/14239 Status: Signed Stoner Hand: Frannie Jurado RN (Registered Nurse) Pt resting comfortably at this time c no apparent distress noted, appears to be sleeping. L ights turned down, pt positioned to comfort. Call light within reach, will continue to monit or. Frannie Jurado RN 01/18/14244 onver rosie Transaction, Provider Unknown - 01/18/2014 2:11 AM PDT ED Notes by Frannie Jurado RN at 01/18/14210 Author: Frannie Jurado RN Service: (none) Author Type: Registered Nurse Filed: 01/18/14210 Date of Service: 01/18/14210 Status: Signed Stoner Hand: Frannie Adrien, RN (Registered Nurse) Dr Kumar at bedside. Frannie Jurado RN 01/18/14210 en Casi garza - 01/18/2014 1:02 AM PDTFormatting of this note might be different from the o riginal. ED Provider Notes by Casi Martinez PA-C at 01/18/14101 Author: Casi Martinez PA-C Service: (none) Author Type: Physician It Program Engagement Director - Cer tified Filed: 01/18/14216 Date of Service: 01/18/14101 Status: Addendum Stoner Hand: Casi Martinez PA-C (Physician It Program Engagement Director - Certified) Related Notes: Cosigned by Bao Lujan DO (Physician) filed at 01/18/14 033 Original Note by Casi Martinez PA-C (Physician It Program Engagement Director - Certified) filed at 0125 Procedures [facility] Department of Emergency Medicine History of Present Illness Patient Identification Brianna Vital is a 68 y.o. male. Patient information was obtained from patient. History/Exam limitations: none. Patient presented to the Emergency Department by: Ambulance Chief Complaint Chief Complaint Patient presents with GI Bleeding "black diarrhea" since yesterday 68 year old male transferred to this facility from [facility] after he was foun d to have a hemoglobin of 6. The patient had been seen earlier in the day by his nephrologi st, Dr. Franz. He informed Dr. Hughes that he had been feeling weak for about 7 days and th is morning was having black, watery stools. Labs were performed and he was sent to the ED a t [facility] where they transfused him one unit and administered 80mg of protonix. He wa s transferred here because of the need for continued transfusions and their inability to per form dialysis. Patient denies any dizziness or pain. He was discharged from [facility] on 01/01 after being treated for 6 days for colitis. Past Medical History Diagnosis Date Hypertension Hyperlipidemia Diabetes mellitus, type 2 TIA (transient ischemic attack) 2010 Heart murmur Stroke surface stroke Sleep apnea dx light apnea Chronic kidney disease Anemia of chronic renal failure 01/24/2012 Past Surgical History Procedure Date Colonoscopy Cataract extraction 2004? Prior to Admission medications Medication Sig Start [...] mg by mouth daily. Yes Historical Provider epoetin lakeisha (PROCRIT) 05111 UNIT/ML injection Inject 1 mL into the skin every 14 (fourteen ) days. 12/27/13 Yes Sweta Hughes MD fenofibrate (TRIGLIDE) 160 MG tablet Take 48 mg by mouth daily. Yes Historical Provider ferrous gluconate (FERGON) 325 MG tablet Take 5 mg by mouth 2 (two) times daily. Yes Hist orical Provider glucose blood test strip 1 each by Other route as needed. Use as instructed [facility] lispro protamine-insulin lispro (HUMALOG 75/25) (75-25) 100 UNIT/ML injection Injec t 10 Units into the skin 2 (two) times daily before meals. 01/01/14 01/01/15 Yes Jeramie Ro mesalamine (DELZICOL) [address] Take 1 capsule by mouth 4 (four) times daily before meals and nightly. Administer 1 hour before or 2 hours after a meal. The capsule should be swallowed whole; do not break, chew, or crush 01/01/14 01/31/14 Yes Thomas Montiel MD niacin 500 MG tablet Take 500 mg by mouth 2 (two) times daily. Yes Historical Provider potassium chloride (K-DUR,KLOR-CON) 20 MEQ tablet Take 2 tablets by mouth daily with breakf ast. 01/01/14 01/01/15 Yes Thomas Montiel MD sitagliptan (JANUVIA) 100 MG tablet Take 50 mg by mouth daily. / tab Yes Historical Pro vider sodium bicarbonate 650 MG tablet Take 2 tablets by mouth 3 (three) times daily. 01/01/14 711/21 Yes Thomas Montiel MD terazosin (HYTRIN) 5 MG capsule Take 10 mg by mouth nightly. 2 x 5 mg capsules once daily Yes Historical Provider Allergies Allergen Reactions Penicillins Other [...] pertinent family history. Review of Systems Constitutional: Positive for malaise/fatigue. Negative for fever and chills. Respiratory: Negative for shortness of breath. Cardiovascular: Negative for chest pain and palpitations. Gastrointestinal: Positive for nausea, vomiting, diarrhea and melena. Genitourinary: Negative for dysuria. Neurological: Positive for dizziness and weakness. Negative for headaches. Endo/Heme/Allergies: Does not bruise/bleed easily. All other systems reviewed and are negative. Physical Exam BP 118/69 | Pulse 87 | Temp 99.4 F (37.4 C) (Oral) | Resp 16 | SpO2 98% Pulse Oximetry interpretation: Normal General: Alert, in no apparent distress with normal vitals as above. Eyes: Normal inspection, pupils equal and round, pale conjunctiva Neck: Normal inspection Supple No lymphadenopathy No meningismus Cardiovascular: Rate and rhythm normal Respiratory: Breath sounds normal bilaterally. Respirations are non-labored Abdomen: Soft, non-tender, non-distended No guarding or rebound. Moderate obesity Genitourinary: Deferred Rectal exam: Deferred Back: Normal inspection Skin: Color pale Warm and dry No rash Neuro: No motor deficit No sensory deficit Alert and oriented. Moves all extremities with purpose. Medical Decision Making and Emergency Department Course ED Department Course H/H was 11/24 at the transferring facility. He received protonix and 1 unit of blood. Marlene ent states he is feeling better, is pain free. I have ordered a repeat H/H. H/H is essentially unchanged. I have discussed with Dr. Lujan who suggests transfusion of 2 units packed RBC's. We will consult with Dr. Aliyah Lujan discussed the patient with Dr. Hughes who advised 40 units of lasix be administered after every unit of blood. Patient appears to be hemodynamically stable. I will admit to the hospitalist service. Dr. Kumar agrees to accept the patient to the hospitalist service. Records Reviewed Old medical records. Laboratory Evaluation Results Procedure Component Value Ref Range Date/Time Cardiac Panel [[id number]] (Abnormal) Collected:01/17/14 2350 Order Status:Completed Updated:01/18/14 0026 WBC 7.3 3.8 - 11.0 K/uL RBC 1.82 (L) 4.20 - 5.70 M/uL HGB 5.8 (LL) 13.2 - 17.0 g/dL HCT 16.4 (LL) 39.0 - 50.0 % MCV 90.3 80.0 - 100.0 fl MCH 31.8 27.0 - 34.0 pg MCHC 35.2 32.0 - 35.5 g/dL RDW SD 50.3 37 - 53 fl PLT 208 150 - 400 K/uL MPV 7.4 fl DIFF TYPE AUTOMATED NEUTROPHILS 67.3 % LYMPHOCYTES 24.1 % MONOCYTES 6.5 % EOSINOPHILS 1.4 % BASOPHILS 0.7 % NEUTROPHILS ABS 4.9 1.9 - 7.4 K/uL LYMPHOCYTES ABS 1.8 1.0 - 3.9 K/uL MONOCYTES ABS 0.5 0 - 0.8 K/uL EOSINOPHILS ABS 0.1 0 - 0.5 K/uL BASOPHILS ABS 0.1 0 - 0.1 K/uL SODIUM 143 135 - 143 mmol/L POTASSIUM 4.5 3.5 - 4.9 mmol/L CHLORIDE 114 (H) 99 - 109 mmol/L CO2 19 (L) 23 - 32 mmol/L ANION GAP AGAP 14 5 - 20 mmol/L GLUCOSE 115 (H) 65 - 99 mg/dL BUN 95 (H) 8 - 25 mg/dL CREATININE 4.32 (H) 0.70 - 1.30 mg/dL BUN/CREAT 22 CALCIUM 7.9 (L) 8.5 - 10.2 mg/dL TOTAL PROTEIN 4.8 (L) 6.3 - 8.2 g/dL Albumin 2.6 (L) 3.3 - 4.8 g/dL GLOBULIN 2.2 1.3 - 4.9 g/dL A/G 1.2 1.0 - 2.4 TBIL 0.3 0.1 - 1.5 mg/dL ALK PHOS 14 (L) 35 - 115 U/L AST 19 10 - 45 U/L ALT 15 10 - 65 U/L EGFR 15 (L) >60 mL/min/1.73m2 CPK 87 55 - 400 U/L INR 1.2 APTT <20 (L) 23 - 32 seconds MMB 2.2 0.5 - 3.6 ng/mL CK-MB Index 2.5 Radiology and EKG Evaluation Imaging Results None ED Diagnoses Final diagnoses GI bleeding Anemia CKD (chronic kidney disease), stage V Disposition: ED Disposition Admit/Observation Bed request special needs: None Diagnosis?: GI bleeding, anemia, CKD, IDDM Casi Martinez PA-C 01/18/14124 Casi Martinez PA-C 01/18/14216 oldBao DO - 01/18/2014 1:02 AM PDTFormatting of this note might be different from the origi nal. ED Provider Notes by Bao Lujan DO at 01/18/14101 Author: Bao Lujan DO Service: (none) Author Type: Physician Filed: 01/18/14330 Date of Service: 01/18/14101 Status: Signed Stoner Hand: Bao Lujan DO (Physician) Related Notes: Related Note by Casi Martinez PA-C (Physician It Program Engagement Director - Certified) filed at 01/18/14216 I was present for ramirez portions of this patient's care during their visit today. I supervis ed the midlevel provider in their care provided at this visit. BAO Lujan DO 01/18/14330 onversio n Transaction, Provider Unknown - 01/18/2014 12:20 AM PDTFormatting of this note might be di fferent from the original. ED Notes by Pilo Cabello RN at 01/18/1419 Author: Pilo Cabello RN Service: (none) Author Type: Registered Nurse Filed: 01/18/1419 Date of Service: 01/18/1419 Status: Signed Stoner Hand: Pilo Cabello RN (Registered Nurse) Kandis MCADAMS at bedside. Pilo Cabello RN 01/18/1419 onver rosie Transaction, Provider Unknown - 01/17/2014 11:33 PM PDT ED Notes by Frannie Jurado RN at 01/17/142332 Author: Frannie Jurado RN Service: (none) Author Type: Registered Nurse Filed: 01/17/142358 Date of Service: 01/17/142332 Status: Addendum Stoner Hand: Frannie Jurado RN (Registered Nurse) Related Notes: Original Note by Frannie Jurado RN (Registered Nurse) filed at 01/17/142334 Pt reports since Friday he started having bloody diarrhea and vomiting. States he was seen by Dr Hughes today and was sent to the ER in [place] for further evaluation r/t H&H. Pt rec eived 80mg bolus of protonix and arrived c protonix gtt. Also received 1 unit of A negative blood while at [facility]. Pt currently denies pain, nausea or discomfort. Call light withi n reach, pt provided c warm blankets and lights dimmed. Frannie Jurado RN 01/17/142334 Frannie Jurado RN 01/17/142358 onver rosie Transaction, Provider Unknown - 01/17/2014 11:17 PM PDT ED Notes by Renetta Means RN at 01/17/142316 Author: Renetta Means RN Service: (none) Author Type: Registered Nurse Filed: 01/17/142316 Date of Service: 01/17/142316 Status: Signed Stoner Hand: Renetta Means RN (Registered Nurse) Bed:20
Expected date:
Expected time:
Means of arrival:
Comments:
[facility] docume nted in this encounter Miscellaneous Notes Op Note - Terrie Vergara MD - 01/18/2014 6:00 PM PDT Op Note by Terrie Vergara MD at 01/18/14 1800 Author: Terrie Vergara MD Service: (none) Author Type: Physician Filed: 01/18/141805 Date of Service: 01/18/141799 Status: Signed Stoner Hand: Terrie Vergara MD (Physician) [facility] Service: Gastroenterology ENDOSCOPY SUITE PROCEDURE NOTE Esophagogastroduodenoscopy Indications: upper GI bleeding with severe anemia Consent: The benefits, risks (bleeding, perforation, infection and reaction to medication) , and alternatives to the procedure were discussed and informed consent was obtained from th e patient. Preparation: EKG, pulse, pulse oximetry, and blood pressure were monitored throughout the procedure. Medications: MAC Procedure: The gastroscope was passed through the mouth under direct visualization and was advanced with ease to the 2nd portion of the duodenum. The scope was withdrawn and the muco sa was carefully examined. The views were good. There were no apparent complications. Findings: 1)active bleeding gastric ulcer at gastric body( greater curvature side) status post local injection with 1:10,000 epinephrine 3 cc followed with cauterization by 10 [place] Probe and placement of 3 Endo-clip 2)moderate amount of fresh blood in the total stomach down to duodenal bulb Specimens: none Complications: None; patient tolerated the procedure well. Impression: 1)active bleeding gastric ulcer at gastric body( greater curvature side) status post local injection with 1:10,000 epinephrine 3 cc followed with cauterization by 10 [place] Gold Probe and placement of 3 Endo-clip 2)moderate amount of fresh blood in the total stomach down to duodenal bulb EBL: Minimal Recommendations: NPO today and clear liquid in am Continue PPI continuous IV drip Will start iron infusion Could be discharged home in 48 hours if remains stable TERRIE VERGARA MD 01/18/2014 lan of C are - Thomas Montiel MD - 01/18/2014 5:08 PM PDTFormatting of this note might be different fr om the original. Plan of Care by Thomas Montiel MD at 01/18/14 1706 Author: Thomas Montiel MD Service: Hospitalist Author Type: Physician Filed: 01/18/141710 Date of Service: 01/18/141707 Status: Addendum Stoner Hand: Thomas Montiel MD (Physician) Related Notes: Original Note by Thomas Montiel MD (Physician) filed at 01/18/14 353 Pt seen and examined, informed of H&H, RFP results and also ECHO showing moderate aortic st enosis ,troponin level, i had d/w on phone consult and recc to keep transfusing NE BCs to maintain hgb level around 10 and he will be happy to follow as an outpt. Pt is CP free. Results for BRIANNA VITAL ( ) as of 01/18/2014 17:10 Ref. Range 01/18/2014 11:22 HGB Latest Range: 13.2-17.0 g/dL 6.9 (LL) HCT Latest Range: 39.0-50.0 % 19.9 (LL) Lab Results Component Value Date CKTOTAL 86 01/18/2014 CKMB 2.8 01/18/2014 CKMBINDEX 3.3 01/18/2014 TROPONINI 0.642* 01/18/2014 ECHO Patient Name: BRIANNA VITAL Date of : 1945 Performing Physician: Angelo Wiley MD INDICATIONS Murmur valvular abnormality CONCLUSIONS 1. Moderate aortic stenosis with peak/mean pressure gradient of 47.59mmHg / 28.15mmHg, the aortic valve area by continuity equation is 1.4cm. FINDINGS -------- ECG rhythm: Sinus rhythm. Study: A 2-dimensional transthoracic echocardiogram with m-mode, spectral and color flow Do ppler was perfomed. Study: This was a technically adequate study. Left Ventricle: Overall left ventricular systolic function is normal with, an EF between 65 - 70 %. Left Ventricle: Left Ventricle ejection fraction by m-mode measures 67%. Left Ventricle: The left ventricle is moderately dilated. Left Ventricle: Left ventricular wall thickness is normal. Left Ventricle: No regional wall motion abnormalities. Left Ventricle: The diastolic filling pattern is normal for the age of the patient. Right Ventricle: The right ventricle is normal in size. Right Ventricle: The right ventricular systolic function is normal. Left Atrium: The left atrium is moderately dilated Left Atrium: , and the LA measures 4.7cm. Right Atrium: The right atrial size is normal Right Atrium: , and the RA measures 4.9cm. Aortic Valve: Aortic valve is trileaflet and is moderately thickened. Aortic Valve: The aortic valve is moderately calcified. Aortic Valve: There is no evidence of aortic regurgitation. Aortic Valve: Moderate aortic stenosis with peak/mean pressure gradient of 47.59mmHg / 28.1 5mmHg, the aortic valve area by continuity equation is 1.4cm. Mitral Valve: The mitral valve is normal. Mitral Valve: There is trace mitral regurgitation. Mitral Valve: Mild mitral annular calcification present. Tricuspid Valve: The tricuspid valve appears structurally normal. Tricuspid Valve: Mild tricuspid regurgitation present. Tricuspid Valve: There is mild pulmonary hypertension. Tricuspid Valve: The right ventricular systolic pressure (pulmonary artery systolic pressur e), as measured by Doppler, is 32 + 5-10 = 37-42mmhg. Pulmonic Valve: The pulmonic valve is normal. Pericardium: There is a trivial pericardial effusion present. Pericardium: No pleural effusion seen. IVC/Hepatic Veins: The IVC is normal size (1.5-2.5cm) and collapses >50% with sniff, consis tent with central venous pressures of 5-10mmHg. Mass: No mass visualized Thrombus: No clot visualized Thrombus: No vegetation visualized. [facility] Plan of Treatment Not on filedocumented as of this encounter Procedures + +--------+ + + + | Procedure Name | Priori | Date/Time | Associated Diagnosis | Comments | | | ty | | | | + +--------+ + + + | POC GLUCOSE | Routin | 01/20/2014 | | Results for this | | | e | 12:07 PM | | procedure are in the | | | | PDT | | results section. | + +--------+ + + + | POC GLUCOSE | Routin | 01/20/2014 | | Results for this | | | e | 5:46 AM | | procedure are in the | | | | PDT | | results section. | + +--------+ + + + | EXTERNAL LAB: CBC | Routin | 01/20/2014 | | Results for this | | | e | 5:33 AM | | procedure are in the | | | | PDT | | results section. | + +--------+ + + + | MAGNESIUM | Routin | 01/20/2014 | | Results for this | | | e | 5:33 AM | | procedure are in the | | | | PDT | | results section. | + +--------+ + + + | RENAL FUNCTION PANEL | Routin | 01/20/2014 | | Results for this | | | e | 5:33 AM | | procedure are in the | | | | PDT | | results section. | + +--------+ + + + | POC GLUCOSE | Routin | 01/19/2014 | | Results for this | | | e | 9:31 PM | | procedure are in the | | | | PDT | | results section. | + +--------+ + + + | POC GLUCOSE | Routin | 01/19/2014 | | Results for this | | | e | 4:08 PM | | procedure are in the | | | | PDT | | results section. | + +--------+ + + + | POC GLUCOSE | Routin | 01/19/2014 | | Results for this | | | e | 11:34 AM | | procedure are in the | | | | PDT | | results section. | + +--------+ + + + | HEMOGLOBIN AND | Routin | 01/19/2014 | | Results for this | | HEMATOCRIT | e | 7:59 AM | | procedure are in the | | | | PDT | | results section. | + +--------+ + + + | POC GLUCOSE | Routin | 01/19/2014 | | Results for this | | | e | 5:27 AM | | procedure are in the | | | | PDT | | results section. | + +--------+ + + + | EXTERNAL LAB: CBC | Routin | 01/19/2014 | | Results for this | | | e | 5:10 AM | | procedure are in the | | | | PDT | | results section. | + +--------+ + + + | MAGNESIUM | Routin | 01/19/2014 | | Results for this | | | e | 5:10 AM | | procedure are in the | | | | PDT | | results section. | + +--------+ + + + | RENAL FUNCTION PANEL | Routin | 01/19/2014 | | Results for this | | | e | 5:10 AM | | procedure are in the | | | | PDT | | results section. | + +--------+ + + + | HEMOGLOBIN AND | Routin | 01/18/2014 | | Results for this | | HEMATOCRIT | e | 8:10 PM | | procedure are in the | | | | PDT | | results section. | + +--------+ + + + | POC GLUCOSE | Routin | 01/18/2014 | | Results for this | | | e | 4:36 PM | | procedure are in the | | | | PDT | | results section. | + +--------+ + + + | POC GLUCOSE | Routin | 01/18/2014 | | Results for this | | | e | 11:24 AM | | procedure are in the | | | | PDT | | results section. | + +--------+ + + + | TROPONIN I | Routin | 01/18/2014 | | Results for this | | | e | 11:24 AM | | procedure are in the | | | | PDT | | results section. | + +--------+ + + + | HEMOGLOBIN AND | Routin | 01/18/2014 | | Results for this | | HEMATOCRIT | e | 11:22 AM | | procedure are in the | | | | PDT | | results section. | + +--------+ + + + | ECHO COMPLETE | Routin | 01/18/2014 | | Results for this | | | e | 9:40 AM | | procedure are in the | | | | PDT | | results section. | + +--------+ + + + | EXTERNAL LAB: CBC | Routin | 01/18/2014 | | Results for this | | | e | 5:51 AM | | procedure are in the | | | | PDT | | results section. | + +--------+ + + + | TROPONIN I | Routin | 01/18/2014 | | Results for this | | | e | 5:51 AM | | procedure are in the | | | | PDT | | results section. | + +--------+ + + + | CK-MB | Routin | 01/18/2014 | | Results for this | | | e | 5:51 AM | | procedure are in the | | | | PDT | | results section. | + +--------+ + + + | PHOSPHORUS | Routin | 01/18/2014 | | Results for this | | | e | 5:51 AM | | procedure are in the | | | | PDT | | results section. | + +--------+ + + + | MAGNESIUM | Routin | 01/18/2014 | | Results for this | | | e | 5:51 AM | | procedure are in the | | | | PDT | | results section. | + +--------+ + + + | CK TOTAL | Routin | 01/18/2014 | | Results for this | | | e | 5:51 AM | | procedure are in the | | | | PDT | | results section. | + +--------+ + + + | COMPREHENSIVE | Routin | 01/18/2014 | | Results for this | | METABOLIC PANEL | e | 5:51 AM | | procedure are in the | | | | PDT | | results section. | + +--------+ + + + | POC GLUCOSE | Routin | 01/18/2014 | | Results for this | | | e | 4:35 AM | | procedure are in the | | | | PDT | | results section. | + +--------+ + + + | HISTORICAL LAB PANEL | Routin | 01/17/2014 | | Results for this | | RESULT | e | 11:50 PM | | procedure are in the | | | | PDT | | results section. | + +--------+ + + + | TYPE AND SCREEN | Routin | 01/17/2014 | | Results for this | | | e | 11:50 PM | | procedure are in the | | | | PDT | | results section. | + +--------+ + + + documented in this encounter Results POC Glucose (01/20/2014 12:07 PM PDT) + + + + + + | Component | Value | Ref Range | Performed | Pathologist | | | | | At | Signature | + + + + + + | Glucose, | 199 (H)Comment: Testing | 65 - 99 mg/dL | EXTERNAL | | | Fingerstick | performed at [facility];[address] | | LAB | | | | [address];[place] | | | | | | [address] | | | | + + + + + + + + | Specimen | + + | | + + + +---------+ + + | Performing | Address | City/State/Zipcode | Phone Number | | Organization | | | | + +---------+ + + | EXTERNAL LAB | | | | + +---------+ + + POC Glucose (01/20/2014 5:46 AM PDT) + + + + + + | Component | Value | Ref Range | Performed | Pathologist | | | | | At | Signature | + + + + + + | Glucose, | 155 (H)Comment: Testing | 65 - 99 mg/dL | EXTERNAL | | | Fingerstick | performed at [facility];[address] | | LAB | | | | [address];[place], [place] | | | | | | [address] | | | | + + + + + + + + | Specimen | + + | | + + + +---------+ + + | Performing | Address | City/State/Zipcode | Phone Number | | Organization | | | | + +---------+ + + | EXTERNAL LAB | | | | + +---------+ + + External Lab: CBC (01/20/2014 5:33 AM PDT) + + + + + + | Component | Value | Ref Range | Performed | Pathologist | | | | | At | Signature | + + + + + + | WBC | 7.0Comment: Testing | 3.8 - 11.0 K/uL | EXTERNAL | | | | performed at [facility], [address] | | LAB | | | | [address], | | | | | | [place] [address] | | | | + + + + + + | Non- | 3.10 (L)Comment: Testing | 4.20 - 5.70 | EXTERNAL | | | Red Blood | performed at [facility], [address] | [address]/uL | LAB | | | Cells | [address], | | | | | Counted | [place] [address] | | | | + + + + + + | Hemoglobin | 9.3 (L)Comment: Testing | 13.2 - 17.0 | EXTERNAL | | | | performed at [facility], [address] | g/dL | LAB | | | | [address], | | | | | | [place] [address] | | | | + + + + + + | Hematocrit, | 27.4 (L)Comment: Testing | 39.0 - 50.0 % | EXTERNAL | | | POC | performed at [facility], [address] | | LAB | | | | [address], | | | | | | [place] [address] | | | | + + + + + + | MCV | 88.2Comment: Testing | 80.0 - 100.0 fl | EXTERNAL | | | | performed at [facility], [address] | | LAB | | | | [address], | | | | | | [place] [address] | | | | + + + + + + | MCH | 29.9Comment: Testing | 27.0 - 34.0 pg | EXTERNAL | | | | performed at [facility], [address] | | LAB | | | | [address], | | | | | | [place] [address] | | | | + + + + + + | MCHC | 33.9Comment: Testing | 32.0 - 35.5 | EXTERNAL | | | | performed at [facility], [address] | g/dL | LAB | | | | [address], | | | | | | [place] [address] | | | | + + + + + + | RDW-CV | 49.0Comment: Testing | 37 - 53 fl | EXTERNAL | | | | performed at [facility], [address] | | LAB | | | | [address], | | | | | | [place] [address] | | | | + + + + + + | Platelet | 136 (L)Comment: Testing | 150 - 400 K/uL | EXTERNAL | | | Count | performed at [facility], [address] | | LAB | | | Plasma | [address], | | | | | | [place] [address] | | | | + + + + + + | MPV | 8.2Comment: Testing | fl | EXTERNAL | | | | performed at [facility], [address] | | LAB | | | | [address], | | | | | | [place] [address] | | | | + + + + + + | Differentia | AUTOMATEDComment: | | EXTERNAL | | | l Type | Testing performed at | | LAB | | | | [facility], [address] | | | | | | [place] | | | | | | [address] | | | | + + + + + + | % Segmented | 61.6Comment: Testing | % | EXTERNAL | | | | performed at [facility], [address] | | LAB | | | Neutrophils | [address], | | | | | | [place] [address] | | | | + + + + + + | % | 22.7Comment: Testing | % | EXTERNAL | | | Lymphocytes | performed at [facility], [address] | | LAB | | | | [address], | | | | | | [place] [address] | | | | + + + + + + | % Monocytes | 12.0Comment: Testing | % | EXTERNAL | | | | performed at [facility], [address] | | LAB | | | | [address], | | | | | | [place] [address] | | | | + + + + + + | % | 2.7Comment: Testing | % | EXTERNAL | | | Eosinophils | performed at [facility], [address] | | LAB | | | | [address], | | | | | | [place] [address] | | | | + + + + + + | % Basophils | 1.0Comment: Testing | % | EXTERNAL | | | | performed at [facility], [address] | | LAB | | | | [address], | | | | | | [place] [address] | | | | + + + + + + | Absolute | 4.3Comment: Testing | 1.9 - 7.4 K/uL | EXTERNAL | | | Segmented | performed at [facility], [address] | | LAB | | | Neutrophils | [address], | | | | | | [place] [address] | | | | + + + + + + | Absolute | 1.6Comment: Testing | 1.0 - 3.9 K/uL | EXTERNAL | | | Lymphocytes | performed at [facility], [address] | | LAB | | | | [address], | | | | | | [place] [address] | | | | + + + + + + | Absolute | 0.8Comment: Testing | 0 - 0.8 K/uL | EXTERNAL | | | Monocytes | performed at [facility], [address] | | LAB | | | | [address], | | | | | | [place] [address] | | | | + + + + + + | Absolute | 0.2Comment: Testing | 0 - 0.5 K/uL | EXTERNAL | | | Eosinophils | performed at [facility], [address] | | LAB | | | [address], | | | | | | [place] [address] | | | | + + + + + + | Absolute | 0.1Comment: Testing | 0 - 0.1 K/uL | EXTERNAL | | | Basophils | performed at [facility], [address] | | LAB | | | [address], | | | | | | [place] [address] | | | | + + + + + + + + | Specimen | + + | Blood specimen | | (specimen) | + + + +---------+ + + | Performing | Address | City/State/Zipcode | Phone Number | | Organization | | | | + +---------+ + + | EXTERNAL LAB | | | | + +---------+ + + Magnesium (01/20/2014 5:33 AM PDT) + + + + + + | Component | Value | Ref Range | Performed | Pathologist | | | | | At | Signature | + + + + + + | Magnesium | 1.6 (L)Comment: Testing | 1.7 - 2.4 mg/dL | EXTERNAL | | | | performed at [facility], [address] | | LAB | | | | [address], | | | | | | [place] [address] | | | | + + + [...] + +---------+ + + Renal Function Panel (01/20/2014 5:33 AM PDT) + + + + + + | Component | Value | Ref Range | Performed | Pathologist | | | | | At | Signature | + + + + + + | Na | 140Comment: Testing | 135 - 143 | EXTERNAL | | | | performed at [facility], [address] | mmol/L | LAB | | | | [address], | | | | | | [place] [address] | | | | + + + + + + | K | 3.7Comment: Testing | 3.5 - 4.9 | EXTERNAL | | | | performed at [facility], [address] | mmol/L | LAB | | | | [address], | | | | | | [place] [address] | | | | + + + + + + | Cl | 111 (H)Comment: Testing | 99 - 109 mmol/L | EXTERNAL | | | | performed at [facility], [address] | | LAB | | | | [address], | | | | | | [place] [address] | | | | + + + + + + | CO2 | 21 (L)Comment: Testing | 23 - 32 mmol/L | EXTERNAL | | | | performed at [facility], [address] | | LAB | | | | [address], | | | | | | [place] [address] | | | | + + + + + + | Anion Gap | 12Comment: Testing | 5 - 20 mmol/L | EXTERNAL | | | | performed at [facility], [address] | | LAB | | | | [address], | | | | | | [place] [address] | | | | + + + + + + | Glucose, | 136 (H)Comment: Testing | 65 - 99 mg/dL | EXTERNAL | | | Fasting | performed at [facility], [address] | | LAB | | | | [address], | | | | | | [place] [address] | | | | + + + + + + | BUN | 73 (H)Comment: Testing | 8 - 25 mg/dL | EXTERNAL | | | | performed at [facility], [address] | | LAB | | | | [address], | | | | | | [place] [address] | | | | + + + + + + | Creatinine | 4.18 (H)Comment: Testing | 0.70 - 1.30 | EXTERNAL | | | | performed at [facility], [address] | mg/dL | LAB | | | | [address], | | | | | | [place] [address] | | | | + + + + + + | Calcium | 8.5Comment: Testing | 8.5 - 10.2 | EXTERNAL | | | | performed at [facility], [address] | mg/dL | LAB | | | | [address], | | | | | | [place] [address] | | | | + + + + + + | Albumin | 2.7 (L)Comment: Testing | 3.3 - 4.8 g/dL | EXTERNAL | | | | performed at [facility], [address] | | LAB | | | | [address], | | | | | | [place] [address] | | | | + + + + + + | PHOSPHORUS | 4.5Comment: Testing | 2.3 - 4.8 mg/dL | EXTERNAL | | | | performed at [facility], [address] | | LAB | | | | [address] [facility], | | | | | | [place] [address] | | | | + + + + + + | Estimated | 15 (L)Comment: GFR <60: | mL/min/1.73m2 | EXTERNAL [...] | | | | | | at [facility], [address] | | | | | | [address] [facility], | | | | | | [place] [address] | | | | + + + + + + + + | Specimen | + + | | + + + +---------+ + + | Performing | Address | City/State/Zipcode | Phone Number | | Organization | | | | + +---------+ + + | EXTERNAL LAB | | | | + +---------+ + + POC Glucose (01/19/2014 9:31 PM PDT) + + + + + + | Component | Value | Ref Range | Performed | Pathologist | | | | | At | Signature | + + + + + + | Glucose, | 328 (H)Comment: Testing | 65 - 99 mg/dL | EXTERNAL | | | Fingerstick | performed at [facility];[address] | | LAB | | | | [address];[place] | | | | | | [address] | | | | + + + + + + + + | Specimen | + + | | + + + +---------+ + + | Performing | Address | City/State/Zipcode | Phone Number | | Organization | | | | + +---------+ + + | EXTERNAL LAB | | | | + +---------+ + + POC Glucose (01/19/2014 4:08 PM PDT) + + + + + + | Component | Value | Ref Range | Performed | Pathologist | | | | | At | Signature | + + + + + + | Glucose, | 258 (H)Comment: Testing | 65 - 99 mg/dL | EXTERNAL | | | Fingerstick | performed at [facility];[address] | | LAB | | | | [address];[place], [place] | | | | | | [address] | | | | + + + + + + + + | Specimen | + + | | + + + +---------+ + + | Performing | Address | City/State/Zipcode | Phone Number | | Organization | | | | + +---------+ + + | EXTERNAL LAB | | | | + +---------+ + + POC Glucose (01/19/2014 11:34 AM PDT) + + + + + + | Component | Value | Ref Range | Performed | Pathologist | | | | | At | Signature | + + + + + + | Glucose, | 235 (H)Comment: Testing | 65 - 99 mg/dL | EXTERNAL | | | Fingerstick | performed at [facility];[address] | | LAB | | | | [address];[place], [place] | | | | | | [address] | | | | + + + + + + + + | Specimen | + + | | + + + +---------+ + + | Performing | Address | City/State/Zipcode | Phone Number | | Organization | | | | + +---------+ + + | EXTERNAL LAB | | | | + +---------+ + + Hemoglobin and Hematocrit (01/19/2014 7:59 AM PDT) + + + + + + | Component | Value | Ref Range | Performed | Pathologist | | | | | At | Signature | + + + + + + | Hemoglobin | 9.8 (L)Comment: Testing | 13.2 - 17.0 | EXTERNAL | | | | performed at [facility];[address] | g/dL | LAB | | | | [address];[place] | | | | | | [address] | | | | + + + + + + | Hematocrit, | 28.6 (L)Comment: Testing | 39.0 - 50.0 % | EXTERNAL | | | POC | performed at [facility];[address] | | LAB | | | | [address];[place] | | | | | | [address] | | | | + + + + + + + + | Specimen | + + | | + + + +---------+ + + | Performing | Address | City/State/Zipcode | Phone Number | | Organization | | | | + +---------+ + + | EXTERNAL LAB | | | | + +---------+ + + POC Glucose (01/19/2014 5:27 AM PDT) + + + + + + | Component | Value | Ref Range | Performed | Pathologist | | | | | At | Signature | + + + + + + | Glucose, | 140 (H)Comment: Testing | 65 - 99 mg/dL | EXTERNAL | | | Fingerstick | performed at [facility];[address] | | LAB | | | | [address];[place], [place] | | | | | | [address] | | | | + + + + + + + + | Specimen | + + | | + + + +---------+ + + | Performing | Address | City/State/Zipcode | Phone Number | | Organization | | | | + +---------+ + + | EXTERNAL LAB | | | | + +---------+ + + External Lab: CBC (01/19/2014 5:10 AM PDT) + + + + + + | Component | Value | Ref Range | Performed | Pathologist | | | | | At | Signature | + + + + + + | WBC | 6.1Comment: Testing | 3.8 - 11.0 K/uL | EXTERNAL | | | | performed at [facility];[address] | | LAB | | | | [address];[place] | | | | | | [address] | | | | + + + + + + | Non- | 3.02 (L)Comment: Testing | 4.20 - 5.70 | EXTERNAL | | | Red Blood | performed at [facility];[address] | M/uL | LAB | | | Cells | [address];[place] | | | | | Counted | [address] | | | | + + + + + + | Hemoglobin | 9.1 (L)Comment: Testing | 13.2 - 17.0 | EXTERNAL | | | | performed at [facility];[address] | g/dL | LAB | | | | [address];[place] | | | | | | [address] | | | | + + + + + + | Hematocrit, | 26.5 (L)Comment: Testing | 39.0 - 50.0 % | EXTERNAL | | | POC | performed at [facility];[address] | | LAB | | | | [address];[place] | | | | | | [address] | | | | + + + + + + | MCV | 87.8Comment: Testing | 80.0 - 100.0 fl | EXTERNAL | | | | performed at [facility];[address] | | LAB | | | | [address];[place] | | | | | | [address] | | | | + + + + + + | MCH | 30.1Comment: Testing | 27.0 - 34.0 pg | EXTERNAL | | | | performed at [facility];[address] | | LAB | | | | [address];[place] | | | | | | [address] | | | | + + + + + + | MCHC | 34.3Comment: Testing | 32.0 - 35.5 | EXTERNAL | | | | performed at [facility];[address] | g/dL | LAB | | | | [address];[place] | | | | | | [address] | | | | + + + + + + | RDW-CV | 47.7Comment: Testing | 37 - 53 fl | EXTERNAL | | | | performed at [facility];[address] | | LAB | | | | [address];[place] | | | | | | [address] | | | | + + + + + + | Platelet | 144 (L)Comment: Testing | 150 - 400 K/uL | EXTERNAL | | | Count | performed at [facility];[address] | | LAB | | | Plasma | [address];[place] | | | | | | [address] | | | | + + + + + + | MPV | 7.6Comment: Testing | fl | EXTERNAL | | | | performed at [facility];[address] | | LAB | | | | [address];[place] | | | | | | [address] | | | | + + + + + + | Differentia | AUTOMATEDComment: | | EXTERNAL | | | l Type | Testing performed at | | LAB | | | | [facility];[address];[place] [address] | | | | + + + + + + | % Segmented | 60.9Comment: Testing | % | EXTERNAL | | | | performed at [facility];[address] | | LAB | | | Neutrophils | [address];[place] | | | | | | [address] | | | | + + + + + + | % | 26.7Comment: Testing | % | EXTERNAL | | | Lymphocytes | performed at [facility];[address] | | LAB | | | | [address];[place] | | | | | | [address] | | | | + + + + + + | % Monocytes | 10.0Comment: Testing | % | EXTERNAL | | | | performed at [facility];[address] | | LAB | | | | [address];[place] | | | | | | [address] | | | | + + + + + + | % | 1.6Comment: Testing | % | EXTERNAL | | | Eosinophils | performed at [facility];[address] | | LAB | | | | [address];[place] | | | | | | [address] | | | | + + + + + + | % Basophils | 0.8Comment: Testing | % | EXTERNAL | | | | performed at [facility];[address] | | LAB | | | | [address];[place] | | | | | | [address] | | | | + + + + + + | Absolute | 3.7Comment: Testing | 1.9 - 7.4 K/uL | EXTERNAL | | | Segmented | performed at [facility];[address] | | LAB | | | Neutrophils | [address];[place] | | | | | | [address] | | | | + + + + + + | Absolute | 1.6Comment: Testing | 1.0 - 3.9 K/uL | EXTERNAL | | | Lymphocytes | performed at [facility];[address] | | LAB | | | | [address];[place] | | | | | | [address] | | | | + + + + + + | Absolute | 0.6Comment: Testing | 0 - 0.8 K/uL | EXTERNAL | | | Monocytes | performed at [facility];[address] | | LAB | | | | [address];[place] | | | | | | [address] | | | | + + + + + + | Absolute | 0.1Comment: Testing | 0 - 0.5 K/uL | EXTERNAL | | | Eosinophils | performed at [facility];[address] | | LAB | | | | [address];[place] | | | | | | [address] | | | | + + + + + + | Absolute | 0.0Comment: Testing | 0 - 0.1 K/uL | EXTERNAL | | | Basophils | performed at [facility];[address] | | LAB | | | | [address];[place], [place] | | | | | | [address] | | | | + + + + + + + + | Specimen | + + | Blood specimen | | (specimen) | + + + +---------+ + + | Performing | Address | City/State/Zipcode | Phone Number | | Organization | | | | + +---------+ + + | EXTERNAL LAB | | | | + +---------+ + + Magnesium (01/19/2014 5:10 AM PDT) + + + + + + | Component | Value | Ref Range | Performed | Pathologist | | | | | At | Signature | + + + + + + | Magnesium | 1.7Comment: Testing | 1.7 - 2.4 mg/dL | EXTERNAL | | | | performed at [facility], [address] | | LAB | | | | [address], | | | | | | [place] [address] | | | | + + + [...] + +---------+ + + Renal Function Panel (01/19/2014 5:10 AM PDT) + + + + + + | Component | Value | Ref Range | Performed | Pathologist | | | | | At | Signature | + + + + + + | Na | 140Comment: Testing | 135 - 143 | EXTERNAL | | | | performed at [facility], [address] | mmol/L | LAB | | | | [address], | | | | | | [place] [address] | | | | + + + + + + | K | 3.7Comment: Testing | 3.5 - 4.9 | EXTERNAL | | | | performed at [facility], [address] | mmol/L | LAB | | | | [address], | | | | | | [place] [address] | | | | + + + + + + | Cl | 111 (H)Comment: Testing | 99 - 109 mmol/L | EXTERNAL | | | | performed at [facility], [address] | | LAB | | | | [address], | | | | | | [place] [address] | | | | + + + + + + | CO2 | 21 (L)Comment: Testing | 23 - 32 mmol/L | EXTERNAL | | | | performed at [facility], [address] | | LAB | | | | [address], | | | | | | [place] [address] | | | | + + + + + + | Anion Gap | 12Comment: Testing | 5 - 20 mmol/L | EXTERNAL | | | | performed at [facility], [address] | | LAB | | | | [address], | | | | | | [place] [address] | | | | + + + + + + | Glucose, | 128 (H)Comment: Testing | 65 - 99 mg/dL | EXTERNAL | | | Fasting | performed at [facility], [address] | | LAB | | | | [address], | | | | | | [place] [address] | | | | + + + + + + | BUN | 91 (H)Comment: Testing | 8 - 25 mg/dL | EXTERNAL | | | | performed at [facility], [address] | | LAB | | | | [address], | | | | | | [place] [address] | | | | + + + + + + | Creatinine | 4.39 (H)Comment: Testing | 0.70 - 1.30 | EXTERNAL | | | | performed at [facility], [address] | mg/dL | LAB | | | | [address], | | | | | | [place] [address] | | | | + + + + + + | Calcium | 8.5Comment: Testing | 8.5 - 10.2 | EXTERNAL | | | | performed at [facility], [address] | mg/dL | LAB | | | | [address], | | | | | | [place] [address] | | | | + + + + + + | Albumin | 2.8 (L)Comment: Testing | 3.3 - 4.8 g/dL | EXTERNAL | | | | performed at [facility], [address] | | LAB | | | | [address], | | | | | | [place] [address] | | | | + + + + + + | PHOSPHORUS | 4.4Comment: Testing | 2.3 - 4.8 mg/dL | EXTERNAL | | | | performed at [facility], [address] | | LAB | | | | [address], | | | | | | [place] [address] | | | | + + + [...] | | | | | | at [facility], [address] | | | | | | [facility], | | | | | | [place] [address] | | | | + + + + + + + + | Specimen | + + | | + + + +---------+ + + | Performing | Address | City/State/Zipcode | Phone Number | | Organization | | | | + +---------+ + + | EXTERNAL LAB | | | | + +---------+ + + Hemoglobin and Hematocrit (01/18/2014 8:10 PM PDT) + + + + + + | Component | Value | Ref Range | Performed | Pathologist | | | | | At | Signature | + + + + + + | Hemoglobin | 8.7 (L)Comment: Testing | 13.2 - 17.0 | EXTERNAL | | | | performed at [place] [facility];888 | g/dL | LAB | | | | [address];[place] | | | | | | [address] | | | | + + + + + + | Hematocrit, | 25.7 (L)Comment: Testing | 39.0 - 50.0 % | EXTERNAL | | | POC | performed at [facility];888 | | LAB | | | | [address];[place] | | | | | | [address] | | | | + + + + + + + + | Specimen | + + | | + + + +---------+ + + | Performing | Address | City/State/Zipcode | Phone Number | | Organization | | | | + +---------+ + + | EXTERNAL LAB | | | | + +---------+ + + POC Glucose (01/18/2014 4:36 PM PDT) + + + + + + | Component | Value | Ref Range | Performed | Pathologist | | | | | At | Signature | + + + + + + | Glucose, | 200 (H)Comment: Testing | 65 - 99 mg/dL | EXTERNAL | | | Fingerstick | performed at [facility];[address] | | LAB | | | | [address];[place], [place] | | | | | | [address] | | | | + + + + + + + + | Specimen | + + | | + + + +---------+ + + | Performing | Address | City/State/Zipcode | Phone Number | | Organization | | | | + +---------+ + + | EXTERNAL LAB | | | | + +---------+ + + Troponin I (01/18/2014 11:24 AM PDT) + + + + + + | Component | Value | Ref Range | Performed | Pathologist | | | | | At | Signature | + + + + + + | Troponin I, | 0.642 ()Comment: | 0.00 - 0.10 | EXTERNAL | | | Qual | 0.00 to 0.10 | ng/mL | LAB | | | | CONSISTENT WITH NORMAL | | | | | | POPULATION0.11 to 0.60 | | | | | | CONSISTENT WITH | | | | | | INCREASED RISK FOR | | | | | | ADVERSE OUTCOMES> 0.60 | | | | | | CONSISTENT | | | | | | WITH WHO CRITERIA FOR | | | | | | ACUTE [place] CALLED TO PARAMJIT | | | | | | G ON [facility] AT 1210 BY | | | | | | TRREAD BACK RESULTS | | | | | | VERIFIEDTesting | | | | | | performed at [facility];[address] | | | | | | [address];[place], [place] | | | | | | [address] | | | | + + [...] | + +---------+ + + POC Glucose (01/18/2014 11:24 AM PDT) + + + + + + | Component | Value | Ref Range | Performed | Pathologist | | | | | At | Signature | + + + + + + | Glucose, | 234 (H)Comment: Testing | 65 - 99 mg/dL | EXTERNAL | | | Fingerstick | performed at [facility];[address] | | LAB | | | | [address];[place] | | | | | | [address] | | | | + + + + + + + + | Specimen | + + | | + + + +---------+ + + | Performing | Address | City/State/Zipcode | Phone Number | | Organization | | | | + +---------+ + + | EXTERNAL LAB | | | | + +---------+ + + Hemoglobin and Hematocrit (01/18/2014 11:22 AM PDT) + + + + + + | Component | Value | Ref Range | Performed | Pathologist | | | | | At | Signature | + + + + + + | Hemoglobin | 6.9 (LL)Comment: CALLED | 13.2 - 17.0 | EXTERNAL | | | | NURSING [id number] PINO | g/dL | LAB | | | | AT 11:44 BY EW READ BACK | | | | | | RESULTS VERIFIEDTesting | | | | | | performed at [facility];[address] | | | | | | [address];[place] | | | | | | [address] | | | | + + + + + + | Hematocrit, | 19.9 (LL)Comment: CALLED | 39.0 - 50.0 % | EXTERNAL | | | POC | NURSING BREA PALUMBO H | | LAB | | | | AT 11:44 BY EW READ | | | | | | BACK RESULTS | | | | | | VERIFIEDTesting | | | | | | performed at [facility];[address] | | | | | | [address];[place] | | | | | | [address] | | | | + + + + + + + + | Specimen | + + | | + + + +---------+ + + | Performing | Address | City/State/Zipcode | Phone Number | | Organization | | | | + +---------+ + + | EXTERNAL LAB | | | | + +---------+ + + ECHO Complete (01/18/2014 9:40 AM PDT) + + | Specimen | + + | | + + + + + | Impressions | Performed At | + + + | 1. Moderate aortic stenosis with peak/mean pressure gradient of | | | 47.59mmHg / 28.15mmHg, the aortic valve area by continuity equation is | | | 1.4cm . | | + + + + + + | Narrative | Performed At | + + + | Patient Name: BRIANNA VITAL Date of : 1945 | | | Performing Physician: Angelo Wiley | | | MD | | | INDICATIONS Murmur valvular abnormality CONCLUSIONS | | | 1. Moderate aortic stenosis with peak/mean pressure | | | gradient of 47.59mmHg / 28.15mmHg, the aortic valve area by continuity | | | equation is 1.4cm . FINDINGS -------- ECG rhythm: Sinus | | | rhythm. Study: A 2-dimensional transthoracic echocardiogram with | | | m-mode, spectral and color flow Doppler was perfomed. Study: This was | | | a technically adequate study. Left Ventricle: Overall left | | | ventricular systolic function is normal with, an EF between 65 - 70 %. | | | Left Ventricle: Left Ventricle ejection fraction by m-mode measures | | | 67%. Left Ventricle: The left ventricle is moderately dilated. Left | | | Ventricle: Left ventricular wall thickness is normal. Left Ventricle: | | | No regional wall motion abnormalities. Left Ventricle: The diastolic | | | filling pattern is normal for the age of the patient. Right | | | Ventricle: The right ventricle is normal in size. Right Ventricle: | | | The right ventricular systolic function is normal. Left Atrium: The | | | left atrium is moderately dilated Left Atrium: , and the LA measures | | | 4.7cm. Right Atrium: The right atrial size is normal Right Atrium: , | | | and the RA measures 4.9cm. Aortic Valve: Aortic valve is trileaflet | | | and is moderately thickened. Aortic Valve: The aortic valve is | | | moderately calcified. Aortic Valve: There is no evidence of aortic | | | regurgitation. Aortic Valve: Moderate aortic stenosis with peak/mean | | | pressure gradient of 47.59mmHg / 28.15mmHg, the aortic valve area by | | | continuity equation is 1.4cm . Mitral Valve: The mitral valve is | | | normal. Mitral Valve: There is trace mitral regurgitation. Mitral | | | Valve: Mild mitral annular calcification present. Tricuspid Valve: | | | The tricuspid valve appears structurally normal. Tricuspid Valve: | | | Mild tricuspid regurgitation present. Tricuspid Valve: There is mild | | | pulmonary hypertension. Tricuspid Valve: The right ventricular | | | systolic pressure (pulmonary artery systolic pressure), as measured by | | | Doppler, is 32 + 5-10 = 37-42mmhg. Pulmonic Valve: The pulmonic | | | valve is normal. Pericardium: There is a trivial pericardial effusion | | | present. Pericardium: No pleural effusion seen. IVC/Hepatic Veins: | | | The IVC is normal size (1.5-2.5cm) and collapses >50% with sniff, | | | consistent with central venous pressures of 5-10mmHg. Mass: No mass | | | visualized Thrombus: No clot visualized Thrombus: No vegetation | | | visualized. MEASUREMENTS LA Major: 5.34 cm | | | LVOT Diam: 2.08 cm RA Major: 4.92 cm RVIDd: 3.38 cm | | | LAESV(A-L): 67.27 ml LAESV Index (A-L): 32.81 ml/m2 LAAs A2C: | | | 18.88 cm2 LAESV A-L A2C: 58.44 ml LALs A2C: 5.26 cm LAAs | | | A4C: 21.25 cm2 LAESV A-L A4C: 75.73 ml LALs A4C: 5.06 cm | | | Ao Diam: 3.51 cm AV Cusp: 0.70 cm LA Diam: 4.65 cm LA/Ao: | | | 1.32 %FS: 38.09 % EDV(Teich): 231.52 ml EF(Teich): | | | 67.02 % ESV(Teich): 76.33 ml IVSd: 0.76 cm IVSs: 1.14 cm | | | LVIDd: 6.70 cm LVIDs: 4.14 cm LVPWd: 0.82 cm LVPWs: | | | 1.46 cm SV(Teich): 155.18 ml D-E Excursion: 2.10 cm E-F | | | Camden: 0.02 m/s EPSS: 0.25 cm IVC diameter: 1.74 cm IVC | | | collapse: 0.55 cm IVC % collapse: 66.54 % HR: 91.52 BPM AV | | | maxP.58 mmHg AV meanP.14 mmHg AV Vmax: 3.44 m/s | | | AV Vmean: 2.53 m/s AV VTI: 78.87 cm ZEKE Vmax: 1.61 cm2 | | | ZEKE (VTI): 1.44 cm2 LVCI Dopp: 4.35 l/minm2 LVCO Dopp: 8.93 | | | l/min HR: 78.40 BPM LVOT maxP.61 mmHg LVOT meanPG: | | | 4.70 mmHg LVSI Dopp: 55.59 ml/m2 LVSV Dopp: 113.96 ml LVOT | | | Vmax: 1.62 m/s LVOT Vmean: 1.01 m/s LVOT VTI: 33.36 cm | | | MCO: 410.35 ms MV A Doe: 0.78 m/s MV DecT: 168.69 ms MV E | | | Doe: 1.19 m/s MV E/A Ratio: 1.51 MV PHT: 51.89 ms MVA By | | | PHT: 4.23 cm2 MV A Dur: 83.17 ms Septal e': 0.07 m/s | | | Septal E/e': 15.88 Lateral e': 0.08 m/s Lateral E/e': 13.75 | | | P Vein A: 0.45 m/s P Vein A Dur: 83.17 ms P Vein D: 0.35 | | | m/s P Vein S/D Ratio: 1.99 P Vein S: 0.70 m/s HR: 80.74 | | | BPM PV maxP.03 mmHg PV meanP.30 mmHg PV Vmax: | | | 1.66 m/s PV Vmean: 1.20 m/s PV VTI: 34.02 cm TR maxPG: | | | 32.17 mmHg TR Vmax: 2.83 m/s TV A Doe: 0.54 m/s TV Dec Camden: | | | 6.53 m/s2 TV Dec Time: 122.94 ms TV E Doe: 0.80 m/s TV | | | E/A Ratio: 1.47 Scientific Specialist: JAEL Authenticated by: Angelo | | | Inez MCKOY Report Date/Time: 01-18-2014 12:18:33 | | + + + + + | Procedure Note | + + | Ramiro Elmo Conversion - 01/22/2019 10:34 AM PDT Patient Name: Neal VITAL | | of : 1945 Performing Physician: Angelo Wiley | | MD INDICATIONS M | | urmur valvular abnormality CONCLUSIONS 1. Moderate aortic stenosis with | | peak/mean pressure gradient of 47.59mmHg / 28.15mmHg, the aortic valve area by | | continuity equation is 1.4cm . FINDINGS--------ECG rhythm: Sinus rhythm.Study: A | | 2-dimensional transthoracic echocardiogram with m-mode, spectral and color flow Doppler | | was perfomed.Study: This was a technically adequate study.Left Ventricle: Overall left | | ventricular systolic function is normal with, an EF between 65 - 70 %.Left Ventricle: | | Left Ventricle ejection fraction by m-mode measures 67%.Left Ventricle: The left | | ventricle is moderately dilated.Left Ventricle: Left ventricular wall thickness is | | normal.Left Ventricle: No regional wall motion abnormalities.Left Ventricle: The | | diastolic filling pattern is normal for the age of the patient.Right Ventricle: The | | right ventricle is normal in size.Right Ventricle: The right ventricular systolic | | function is normal.Left Atrium: The left atrium is moderately dilatedLeft Atrium: , and | | the LA measures 4.7cm.Right Atrium: The right atrial size is normalRight Atrium: , and | | the RA measures 4.9cm.Aortic Valve: Aortic valve is trileaflet and is moderately | | thickened.Aortic Valve: The aortic valve is moderately calcified.Aortic Valve: There is | | no evidence of aortic regurgitation.Aortic Valve: Moderate aortic stenosis with | | peak/mean pressure gradient of 47.59mmHg / 28.15mmHg, the aortic valve area by | | continuity equation is 1.4cm .Mitral Valve: The mitral valve is normal.Mitral | | Valve: There is trace mitral regurgitation.Mitral Valve: Mild mitral annular | | calcification present.Tricuspid Valve: The tricuspid valve appears structurally | | normal.Tricuspid Valve: Mild tricuspid regurgitation present.Tricuspid Valve: There is | | mild pulmonary hypertension.Tricuspid Valve: The right ventricular systolic pressure | | (pulmonary artery systolic pressure), as measured by Doppler, is 32 + 5-10 = | | 37-42mmhg.Pulmonic Valve: The pulmonic valve is normal.Pericardium: There is a trivial | | pericardial effusion present.Pericardium: No pleural effusion seen.IVC/Hepatic Veins: | | The IVC is normal size (1.5-2.5cm) and collapses >50% with sniff, consistent with | | central venous pressures of 5-10mmHg.Mass: No mass visualizedThrombus: No clot | | visualizedThrombus: No vegetation visualized. MEASUREMENTS LA Major: 5.34 | | cmLVOT Diam: 2.08 cmRA Major: 4.92 cmRVIDd: 3.38 cmLAESV(A-L): 67.27 mlLAESV | | Index (A-L): 32.81 ml/m2LAAs A2C: 18.88 [id number] A-L A2C: 58.44 mlLALs A2C: 5.26 | | cmLAAs A4C: 21.25 [id number] A-L A4C: 75.73 mlLALs A4C: 5.06 cmAo Diam: 3.51 cmAV | | Cusp: 0.70 cmLA Diam: 4.65 cmLA/Ao: 1.32%FS: 38.09 %EDV(Teich): 231.52 | | mlEF(Teich): 67.02 %ESV(Teich): 76.33 mlIVSd: 0.76 cmIVSs: 1.14 cmLVIDd: 6.70 | | cmLVIDs: 4.14 cmLVPWd: 0.82 cmLVPWs: 1.46 cmSV(Teich): 155.18 mlD-E Excursion: | | 2.10 cmE-F [place]: 0.02 m/sEPSS: 0.25 cmIVC diameter: 1.74 cmIVC collapse: 0.55 | | cmIVC % collapse: 66.54 %HR: 91.52 BPMAV maxP.58 mmHgAV meanP.14 | | mmHgAV Vmax: 3.44 m/Apoorva Vmean: 2.53 m/Apoorva VTI: 78.87 cmAVA Vmax: 1.61 cm2AVA | | (VTI): 1.44 [id number] Dopp: 4.35 l/vwxo5TJNP Dopp: 8.93 l/minHR: 78.40 BPMLVOT | | maxP.61 mmHgLVOT meanP.70 mmHgLVSI Dopp: 55.59 ml/m2LVSV Dopp: 113.96 | | mlLVOT Vmax: 1.62 m/sLVOT Vmean: 1.01 m/sLVOT VTI: 33.36 cmMCO: 410.35 msMV A | | Doe: 0.78 m/sMV DecT: 168.69 msMV E Doe: 1.19 m/sMV E/A Ratio: 1.51MV PHT: | | 51.89 msMVA By PHT: 4.23 cm2MV A Dur: 83.17 msSeptal e': 0.07 m/sSeptal E/e': | | 15.88Lateral e': 0.08 m/sLateral E/e': 13.75P Vein A: 0.45 m/sP Vein A Dur: | | 83.17 msP Vein D: 0.35 m/sP Vein S/D Ratio: 1.99P Vein S: 0.70 m/sHR: 80.74 | | BPMPV maxP.03 mmHgPV meanP.30 mmHgPV Vmax: 1.66 m/sPV Vmean: 1.20 m/sPV | | VTI: 34.02 cmTR maxP.17 mmHgTR Vmax: 2.83 m/sTV A Doe: 0.54 m/sTV Dec | | Camden: 6.53 m/s2TV Dec Time: 122.94 msTV E Doe: 0.80 m/sTV E/A Ratio: 1.47 | | Scientific Specialist: MIKAuthenticated by: Angelo Wiley MDReport Date/Time: 01-18-2014 | | 12:18:33 IMPRESSION: 1. Moderate aortic stenosis with peak/mean pressure gradient of | | 47.59mmHg / 28.15mmHg, the aortic valve area by continuity equation is 1.4cm . | | | |LA Major: 5.34 cm | |LVOT Diam: 2.08 cm | |RA Major: 4.92 cm | |RVIDd: 3.38 cm | |LAESV(A-L): 67.27 ml | |LAESV Index (A-L): 32.81 ml/m2 | |LAAs A2C: 18.88 cm2 | |LAESV A-L A2C: 58.44 ml | |LALs A2C: 5.26 cm | |LAAs A4C: 21.25 cm2 | |LAESV A-L A4C: 75.73 ml | |LALs A4C: 5.06 cm | |Ao Diam: 3.51 cm | |AV Cusp: 0.70 cm | |LA Diam: 4.65 cm | |LA/Ao: 1.32 | |%FS: 38.09 % | |EDV(Teich): 231.52 ml | |EF(Teich): 67.02 % | |ESV(Teich): 76.33 ml | |IVSd: 0.76 cm | |IVSs: 1.14 cm | |LVIDd: 6.70 cm | |LVIDs: 4.14 cm | |LVPWd: 0.82 cm | |LVPWs: 1.46 cm | |SV(Teich): 155.18 ml | |D-E Excursion: 2.10 cm | |E-F [place]: 0.02 m/s | |EPSS: 0.25 cm | |IVC diameter: 1.74 cm | |IVC collapse: 0.55 cm | |IVC % collapse: 66.54 % | |HR: 91.52 BPM | |AV maxP.58 mmHg | |AV meanP.14 mmHg | |AV Vmax: 3.44 m/s | |AV Vmean: 2.53 m/s | |AV VTI: 78.87 cm | |ZEKE Vmax: 1.61 cm2 | |ZEKE (VTI): 1.44 cm2 | |LVCI Dopp: 4.35 l/minm2 | |LVCO Dopp: 8.93 l/min | |HR: 78.40 BPM | |LVOT maxP.61 mmHg | |LVOT meanP.70 mmHg | |LVSI Dopp: 55.59 ml/m2 | |LVSV Dopp: 113.96 ml | |LVOT Vmax: 1.62 m/s | |LVOT Vmean: 1.01 m/s | |LVOT VTI: 33.36 cm | |MCO: 410.35 ms | |MV A Doe: 0.78 m/s | |MV DecT: 168.69 ms | |MV E Doe: 1.19 m/s | |MV E/A Ratio: 1.51 | |MV PHT: 51.89 ms | |MVA By PHT: 4.23 cm2 | |MV A Dur: 83.17 ms | |Septal e': 0.07 m/s | |Septal E/e': 15.88 | |Lateral e': 0.08 m/s | |Lateral E/e': 13.75 | |P Vein A: 0.45 m/s | |P Vein A Dur: 83.17 ms | |P Vein D: 0.35 m/s | |P Vein S/D Ratio: 1.99 | |P Vein S: 0.70 m/s | |HR: 80.74 BPM | |PV maxP.03 mmHg | |PV meanP.30 mmHg | |PV Vmax: 1.66 m/s | |PV Vmean: 1.20 m/s | |PV VTI: 34.02 cm | |TR maxP.17 mmHg | |TR Vmax: 2.83 m/s | |TV A Doe: 0.54 m/s | |TV Dec Camden: 6.53 m/s2 | |TV Dec Time: 122.94 ms | |TV E Doe: 0.80 m/s | |TV E/A Ratio: 1.47 | | | |Scientific Specialist: JAEL | |Authenticated by: Angelo Wiley MD | |Report Date/Time: 01-18-2014 12:18:33 | | | |IMPRESSION: | |1. Moderate aortic stenosis with peak/mean pressure gradient of 47.59mmHg / 28.15mmHg, the aortic valve area by continuity equation is 1.4cm . | + + CK-MB (01/18/2014 5:51 AM PDT) + + + + + -+ | Component | Value | Ref Range | Performed | Pathologist | | | | | At | Signature | + + + + + -+ | CK-MB | 2.8Comment: Testing | 0.5 - 3.6 ng/mL | EXTERNAL | | | | performed at [facility];[address] | | LAB | | | | [address];[place], [place] | | | | | | [address] | | | | + + + + + -+ | CK-MB Index | 3.3Comment: CK INDEX | | EXTERNAL | | [...] | + +---------+ + + Troponin I (01/18/2014 5:51 AM PDT) + + + + + + | Component | Value | Ref Range | Performed | Pathologist | | | | | At | Signature | + + + + + + | Troponin I, | 0.562 (H)Comment: 0.00 | 0.00 - 0.10 | EXTERNAL [...] | | | | | | ACUTE [place] Testing | | | | | | performed at [facility];[address] | | | | | | [address];[place] | | | | | | [address] | | | | + + + [...] + +---------+ + + External Lab: CBC (01/18/2014 5:51 AM PDT) + + + + + + | Component | Value | Ref Range | Performed | Pathologist | | | | | At | Signature | + + + + + + | WBC | 7.3Comment: Testing | 3.8 - 11.0 K/uL | EXTERNAL | | | | performed at [facility], [address] | | LAB | | | | [address], | | | | | | [place] [address] | | | | + + + + + + | Non- | 2.02 (L)Comment: Testing | 4.20 - 5.70 | EXTERNAL | | | Red Blood | performed at [facility], [address] | M/uL | LAB | | | Cells | [address], | | | | | Counted | [place] [address] | | | | + + + + + + | Hemoglobin | 6.1 (LL)Comment: RESULT | 13.2 - 17.0 | EXTERNAL | | | | READ BACK BY:CALLED TO | g/dL | LAB | | | | CARLOS REILLY/6RP/07:07/JAN | | | | | | 2013/CMSTesting | | | | | | performed at [facility], [address] | | | | | | [address], | | | | | | [place] [address] | | | | + + + + + + | Hematocrit, | 18.6 (LL)Comment: RESULT | 39.0 - 50.0 % | EXTERNAL | | | POC | READ BACK BY:CALLED TO | | LAB | | | | CARLOS REILLY/6RP/07:/JAN | | | | | | 2013/CMSTesting | | | | | | performed at [facility], [address] | | | | | | [address], | | | | | | [place] [address] | | | | + + + + + + | MCV | 91.9Comment: Testing | 80.0 - 100.0 fl | EXTERNAL | | | | performed at [facility], [address] | | LAB | | | | [address], | | | | | | [place] [address] | | | | + + + + + + | MCH | 30.2Comment: Testing | 27.0 - 34.0 pg | EXTERNAL | | | | performed at [facility], [address] | | LAB | | | | [address], | | | | | | [place] [address] | | | | + + + + + + | MCHC | 32.8Comment: Testing | 32.0 - 35.5 | EXTERNAL | | | | performed at [facility], [address] | g/dL | LAB | | | | [address], | | | | | | [place] [address] | | | | + + + + + + | RDW-CV | 51.2Comment: Testing | 37 - 53 fl | EXTERNAL | | | | performed at [facility], [address] | | LAB | | | | [address], | | | | | | [place] [address] | | | | + + + + + + | Platelet | 193Comment: Testing | 150 - 400 K/uL | EXTERNAL | | | Count | performed at [facility], [address] | | LAB | | | Plasma | [address], | | | | | | [place] [address] | | | | + + + + + + | MPV | 7.7Comment: Testing | fl | EXTERNAL | | | | performed at [facility], [address] | | LAB | | | | [address], | | | | | | [place] [address] | | | | + + + + + + | Differentia | AUTOMATEDComment: | | EXTERNAL | | | l Type | Testing performed at | | LAB | | | | [facility], [address] | | | | | | [place] | | | | | | [address] | | | | + + + + + + | % Segmented | 65.2Comment: Testing | % | EXTERNAL | | | | performed at [facility], [address] | | LAB | | | Neutrophils | [address], | | | | | | [place] [address] | | | | + + + + + + | % | 23.7Comment: Testing | % | EXTERNAL | | | Lymphocytes | performed at [facility], [address] | | LAB | | | | [address], | | | | | | [place] [address] | | | | + + + + + + | % Monocytes | 8.5Comment: Testing | % | EXTERNAL | | | | performed at [facility], [address] | | LAB | | | | [address], | | | | | | [place] [address] | | | | + + + + + + | % | 1.8Comment: Testing | % | EXTERNAL | | | Eosinophils | performed at [facility], [address] | | LAB | | | | [address], | | | | | | [place] [address] | | | | + + + + + + | % Basophils | 0.8Comment: Testing | % | EXTERNAL | | | | performed at [facility], [address] | | LAB | | | | [address], | | | | | | [place] [address] | | | | + + + + + + | Absolute | 4.7Comment: Testing | 1.9 - 7.4 K/uL | EXTERNAL | | | Segmented | performed at [facility], [address] | | LAB | | | Neutrophils | [address], | | | | | | [place] [address] | | | | + + + + + + | Absolute | 1.7Comment: Testing | 1.0 - 3.9 K/uL | EXTERNAL | | | Lymphocytes | performed at [facility], [address] | | LAB | | | | [address], | | | | | | [place] [address] | | | | + + + + + + | Absolute | 0.6Comment: Testing | 0 - 0.8 K/uL | EXTERNAL | | | Monocytes | performed at [facility], [address] | | LAB | | | | [address], | | | | | | [place] [address] | | | | + + + + + + | Absolute | 0.1Comment: Testing | 0 - 0.5 K/uL | EXTERNAL | | | Eosinophils | performed at [facility], [address] | | LAB | | | | [address], | | | | | | [place] [address] | | | | + + + + + + | Absolute | 0.1Comment: Testing | 0 - 0.1 K/uL | EXTERNAL | | | Basophils | performed at [facility], [address] | | LAB | | | | [address], | | | | | | [place] [address] | | | | + + + + + + | RBC | Comment: 1+ | | EXTERNAL | | | Morphology | AnisocytosisTesting | | LAB | | | | performed at [facility], [address] | | | | | | [address], | | | | | | [place] [address] | | | | + + + + + + + + | Specimen | + + | Blood specimen | | (specimen) | + + + +---------+ + + | Performing | Address | City/State/Zipcode | Phone Number | | Organization | | | | + +---------+ + + | EXTERNAL LAB | | | | + +---------+ + + Phosphorus (01/18/2014 5:51 AM PDT) + + + + + + | Component | Value | Ref Range | Performed | Pathologist | | | | | At | Signature | + + + + + + | PHOSPHORUS | 3.5Comment: Testing | 2.3 - 4.8 mg/dL | EXTERNAL | | | | performed at [facility], [address] | | LAB | | | | [address], | | | | | | [place] [address] | | | | + + + + + + + + | Specimen | + + | Blood specimen | | (specimen) | + + + +---------+ + + | Performing | Address | City/State/Zipcode | Phone Number | | Organization | | | | + +---------+ + + | EXTERNAL LAB | | | | + +---------+ + + Magnesium (01/18/2014 5:51 AM PDT) + + + + + + | Component | Value | Ref Range | Performed | Pathologist | | | | | At | Signature | + + + + + + | Magnesium | 1.8Comment: Testing | 1.7 - 2.4 mg/dL | EXTERNAL | | | | performed at [facility], [address] | | LAB | | | | [facility], | | | | | | [place] [address] | | | | + + + + + + + + | Specimen | + + | Blood specimen | | (specimen) | + + + +---------+ + + | Performing | Address | City/State/Zipcode | Phone Number | | Organization | | | | + +---------+ + + | EXTERNAL LAB | | | | + +---------+ + + CK Total (01/18/2014 5:51 AM PDT) + + + + + + | Component | Value | Ref Range | Performed | Pathologist | | | | | At | Signature | + + + + + + | CK, Total | 86Comment: Testing | 55 - 400 U/L | EXTERNAL | | | | performed at [facility];[address] | | LAB | | | | [address];[place] | | | | | | [id number] | | | | + + + [...] + +---------+ + + Comprehensive Metabolic Panel (01/18/2014 5:51 AM PDT) + + + + + + | Component | Value | Ref Range | Performed | Pathologist | | | | | At | Signature | + + + + + + | Na | 140Comment: Testing | 135 - 143 | EXTERNAL | | | | performed at [facility], [address] | mmol/L | LAB | | | | [address], | | | | | | [place] [address] | | | | + + + + + + | K | 4.5Comment: Testing | 3.5 - 4.9 | EXTERNAL | | | | performed at [facility], [address] | mmol/L | LAB | | | | [address], | | | | | | [place] [address] | | | | + + + + + + | Cl | 114 (H)Comment: Testing | 99 - 109 mmol/L | EXTERNAL | | | | performed at [facility], [address] | | LAB | | | | [address], | | | | | | [place] [address] | | | | + + + + + + | CO2 | 19 (L)Comment: Testing | 23 - 32 mmol/L | EXTERNAL | | | | performed at [facility], [address] | | LAB | | | | [address], | | | | | | [place] [address] | | | | + + + + + + | Anion Gap | 12Comment: Testing | 5 - 20 mmol/L | EXTERNAL | | | | performed at [facility], [address] | | LAB | | | | [address], | | | | | | [place] [address] | | | | + + + + + + | Glucose, | 134 (H)Comment: Testing | 65 - 99 mg/dL | EXTERNAL | | | Fasting | performed at [facility], [address] | | LAB | | | | [address], | | | | | | [place] [address] | | | | + + + + + + | BUN | 94 (H)Comment: Testing | 8 - 25 mg/dL | EXTERNAL | | | | performed at [facility], [address] | | LAB | | | | [address], | | | | | | [place] [address] | | | | + + + + + + | Creatinine | 4.46 (H)Comment: Testing | 0.70 - 1.30 | EXTERNAL | | | | performed at [facility], [address] | mg/dL | LAB | | | | [address], | | | | | | [place] [address] | | | | + + + + + + | BUN/Creatin | 21Comment: Testing | | EXTERNAL | | | ine Ratio | performed at [facility], [address] | | LAB | | | | [address], | | | | | | [place] [address] | | | | + + + + + + | Calcium | 8.4 (L)Comment: Testing | 8.5 - 10.2 | EXTERNAL | | | | performed at [facility], [address] | mg/dL | LAB | | | | [address], | | | | | | [place] [address] | | | | + + + + + + | Protein, | 4.5 (L)Comment: Testing | 6.3 - 8.2 g/dL | EXTERNAL | | | Total | performed at [facility], [address] | | LAB | | | | [address], | | | | | | [place] [address] | | | | + + + + + + | Albumin | 2.7 (L)Comment: Testing | 3.3 - 4.8 g/dL | EXTERNAL | | | | performed at [facility], [address] | | LAB | | | | [address], | | | | | | [place] [address] | | | | + + + + + + | Globulin | 1.8Comment: Testing | 1.3 - 4.9 g/dL | EXTERNAL | | | | performed at [facility], [address] | | LAB | | | [address], | | | | | | [place] [address] | | | | + + + + + + | A/G Ratio | 1.5Comment: Testing | 1.0 - 2.4 | EXTERNAL | | | | performed at [facility], [address] | | LAB | | | | [address], | | | | | | [place] [address] | | | | + + + + + + | Bilirubin | 0.3Comment: Testing | 0.1 - 1.5 mg/dL | EXTERNAL | | | Total | performed at [facility], [address] | | LAB | | | | [address], | | | | | | [place] [address] | | | | + + + + + + | ALP, | 11 (L)Comment: Testing | 35 - 115 U/L | EXTERNAL | | | External | performed at [facility], [address] | | LAB | | | | [address], | | | | | | [place] [address] | | | | + + + + + + | AST | 21Comment: Testing | 10 - 45 U/L | EXTERNAL | | | | performed at [facility], [address] | | LAB | | | | [address], | | | | | | [place] [address] | | | | + + + + + + | ALT | 10Comment: Testing | 10 - 65 U/L | EXTERNAL | | | | performed at [facility], [address] | | LAB | | | | [facility], | | | | | | [place] [address] | | | | + + + [...] | | | | | | at [facility], [address] | | | | | | [facility], | | | | | | [place] [address] | | | | + + + + + + + + | Specimen | + + | Blood specimen | | (specimen) | + + + +---------+ + + | Performing | Address | City/State/Zipcode | Phone Number | | Organization | | | | + +---------+ + + | EXTERNAL LAB | | | | + +---------+ + + POC Glucose (01/18/2014 4:35 AM PDT) + + + + + + | Component | Value | Ref Range | Performed | Pathologist | | | | | At | Signature | + + + + + + | Glucose, | 143 (H)Comment: Testing | 65 - 99 mg/dL | EXTERNAL | | | Fingerstick | performed at [facility];[address] | | LAB | | | | [address];[place], [place] | | | | | | [address] | | | | + + + + + + + + | Specimen | + + | | + + + +---------+ + + | Performing | Address | City/State/Zipcode | Phone Number | | Organization | | | | + +---------+ + + | EXTERNAL LAB | | | | + +---------+ + + Type and Screen (01/17/2014 11:50 PM PDT) + + + + + [...] + + + | BB BAND | [id number] | | EXTERNAL | | | | | | LAB | | + + + + + + | UNIT NUMBER | [id number] | | EXTERNAL | | | | | | LAB | | + + + + + + | Product | LEUKODEPLETED PC,A | | EXTERNAL | | | Code | | | LAB | | + + + + + + | Unit | 00 | | EXTERNAL | | | Division | | | LAB | | + + + + + + | Unit Status | ISSUED,FINAL | | EXTERNAL | | | | | | LAB | | + + + + + + | Transfusion | OK TO TRANSFUSE | | EXTERNAL | | | Status | | | LAB | | + + + + + + | CROSSMATCH | COMPATIBLE | | EXTERNAL | | | RESULT | | | LAB | | + + + + + + | UNIT NUMBER | [id number] | | EXTERNAL | | | | | | LAB | | + + + + + + | Product | LEUKODEPLETED PC,B | | EXTERNAL | | | Code | | | LAB | | + + + + + + | Unit | 00 | | EXTERNAL | | | Division | | | LAB | | + + + + + + | Unit Status | ISSUED,FINAL | | EXTERNAL | | | | | | LAB | | + + + + + + | Transfusion | OK TO TRANSFUSE | | EXTERNAL | | | Status | | | LAB | | + + + + + + | CROSSMATCH | COMPATIBLE | | EXTERNAL | | | RESULT | | | LAB | | + + + + + + | UNIT NUMBER | [id number] | | EXTERNAL | | | | | | LAB | | + + + + + + | Product | LEUKODEPLETED PC,A | | EXTERNAL | | | Code | | | LAB | | + + + + + + | Unit | 00 | | EXTERNAL | | | Division | | | LAB | | + + + + + + | Unit Status | ISSUED,FINAL | | EXTERNAL | | | | | | LAB | | + + + + + + | Transfusion | OK TO TRANSFUSE | | EXTERNAL | | | Status | | | LAB | | + + + + + + | CROSSMATCH | COMPATIBLE | | EXTERNAL | | | RESULT | | | LAB | | + + + + + + | UNIT NUMBER | [id number] | | EXTERNAL | | | | | | LAB | | + + + + + + | Product | LEUKODEPLETED PC,A | | EXTERNAL | | | Code | | | LAB | | + + + + + + | Unit | 00 | | EXTERNAL | | | Division | | | LAB | | + + + + + + | Unit Status | ISSUED,FINAL | | EXTERNAL | | | | | | LAB | | + + + + + + | Transfusion | OK TO TRANSFUSE | | EXTERNAL | | | Status | | | LAB | | + + + + + + | CROSSMATCH | COMPATIBLE | | EXTERNAL | | | RESULT | | | LAB | | + + + + + + | UNIT NUMBER | [id number] | | EXTERNAL | | | | | | LAB | | + + + + + + | Product | LEUKODEPLETED PC,B | | EXTERNAL | | | Code | | | LAB | | + + + + + + | Unit | 00 | | EXTERNAL | | | Division | | | LAB | | + + + + + + | Unit Status | ISSUED,FINAL | | EXTERNAL | | | | | | LAB | | + + + + + + | Transfusion | OK TO TRANSFUSE | | EXTERNAL | | | Status | | | LAB | | + + + + + + | CROSSMATCH | COMPATIBLE | | EXTERNAL | | | RESULT | | | LAB | | + + + + + + | UNIT NUMBER | [id number] | | EXTERNAL | | | | | | LAB | | + + + + + + | UNIT NUMBER | Testing performed at | | EXTERNAL | | | | [address] | LAB | | | | [address];[place] [address] | | | | + + + + + + | Product | LEUKODEPLETED | | EXTERNAL | | | Code | PC,ATesting performed at | | LAB | | | | [facility];[address] | | | | | | [address];[place] [address] | | | | + + + + + + | Unit | 00Testing performed at | | EXTERNAL | | | Division | [address] | | LAB | | | | [address];[place] [address] | | | | + + + + + + | Unit Status | ISSUED,FINALTesting | | EXTERNAL | | | | performed at [facility];[address] | | LAB | | | [address];[place] | | | | | | [address] | | | | + + + + + + | Transfusion | OK TO TRANSFUSETesting | | EXTERNAL | | | Status | performed at [facility];[address] | | LAB | | | | [address];[place] | | | | | | [address] | | | | + + + + + + | CROSSMATCH | COMPATIBLETesting | | EXTERNAL | | | RESULT | performed at [facility];[address] | | LAB | | | [address];[place] | | | | | | [address] | | | | + + + + + + + + | Specimen | + + | Blood specimen | | (specimen) | + + + +---------+ + + | Performing | Address | City/State/Zipcode | Phone Number | | Organization | | | | + +---------+ + + | EXTERNAL LAB | | | | + +---------+ + + HISTORICAL LAB PANEL RESULT (01/17/2014 11:50 PM PDT) + + + + + -+ | Component | Value | Ref Range | Performed | Pathologist | | | | | At | Signature | + + + + + -+ | WBC | 7.3Comment: Testing | 3.8 - 11.0 K/uL | EXTERNAL | | | | performed at [facility];[address] | | LAB | | | | [address];[place] | | | | | | [address] | | | | + + + + + -+ | Non- | 1.82 (L)Comment: Testing | 4.20 - 5.70 | EXTERNAL | | | Red Blood | performed at [facility];[address] | M/uL | LAB | | | Cells | [address];[place] | | | | | Counted | [address] | | | | + + + + + -+ | Hemoglobin | 5.8 (LL)Comment: CALLED | 13.2 - 17.0 | EXTERNAL | | | | DR VIDAL DE LA CRUZ AT | g/dL | LAB | | | | 0013 BY [employer] BACK | | | | | | RESULTS VERIFIEDTesting | | | | | | performed at [facility];[address] | | | | | | [address];[place] | | | | | | [address] | | | | + + + + + -+ | Hematocrit, | 16.4 (LL)Comment: CALLED | 39.0 - 50.0 % | EXTERNAL | | | POC | DR VIDAL DE LA CRUZ AT | | LAB | | | | 0013 BY [employer] BACK | | | | | | RESULTS VERIFIEDTesting | | | | | | performed at [facility];[address] | | | | | | [address];[place] | | | | | | [address] | | | | + + + + + -+ | MCV | 90.3Comment: Testing | 80.0 - 100.0 fl | EXTERNAL | | | | performed at [facility];[address] | | LAB | | | | [address];[place] | | | | | | [address] | | | | + + + + + -+ | MCH | 31.8Comment: Testing | 27.0 - 34.0 pg | EXTERNAL | | | | performed at [facility];[address] | | LAB | | | | [address];[place] | | | | | | [address] | | | | + + + + + -+ | MCHC | 35.2Comment: Testing | 32.0 - 35.5 | EXTERNAL | | | | performed at [facility];[address] | g/dL | LAB | | | | [address];[place] | | | | | | [address] | | | | + + + + + -+ | RDW-CV | 50.3Comment: Testing | 37 - 53 fl | EXTERNAL | | | | performed at [facility];[address] | | LAB | | | | [address];[place] | | | | | | [address] | | | | + + + + + -+ | Platelet | 208Comment: Testing | 150 - 400 K/uL | EXTERNAL | | | Count | performed at [facility];[address] | | LAB | | | Plasma | [address];[place] | | | | | | [address] | | | | + + + + + -+ | MPV | 7.4Comment: Testing | fl | EXTERNAL | | | | performed at [facility];[address] | | LAB | | | | [address];[place] | | | | | | [address] | | | | + + + + + -+ | Differentia | AUTOMATEDComment: | | EXTERNAL | | | l Type | Testing performed at | | LAB | | | | [facility];[address] | | | | | [address];[place] [address] | | | | + + + + + -+ | % Segmented | 67.3Comment: Testing | % | EXTERNAL | | | | performed at [facility];[address] | | LAB | | | Neutrophils | [address];[place] | | | | | | [address] | | | | + + + + + -+ | % | 24.1Comment: Testing | % | EXTERNAL | | | Lymphocytes | performed at [facility];[address] | | LAB | | | | [address];[place] | | | | | | [address] | | | | + + + + + -+ | % Monocytes | 6.5Comment: Testing | % | EXTERNAL | | | | performed at [facility];[address] | | LAB | | | | [address];[place] | | | | | | [address] | | | | + + + + + -+ | % | 1.4Comment: Testing | % | EXTERNAL | | | Eosinophils | performed at [facility];[address] | | LAB | | | | [address];[place] | | | | | | [address] | | | | + + + + + -+ | % Basophils | 0.7Comment: Testing | % | EXTERNAL | | | | performed at [facility];[address] | | LAB | | | | [address];[place] | | | | | | [address] | | | | + + + + + -+ | Absolute | 4.9Comment: Testing | 1.9 - 7.4 K/uL | EXTERNAL | | | Segmented | performed at [facility];[address] | | LAB | | | Neutrophils | [address];[place] | | | | | | [address] | | | | + + + + + -+ | Absolute | 1.8Comment: Testing | 1.0 - 3.9 K/uL | EXTERNAL | | | Lymphocytes | performed at [facility];[address] | | LAB | | | | [address];[place] | | | | | | [address] | | | | + + + + + -+ | Absolute | 0.5Comment: Testing | 0 - 0.8 K/uL | EXTERNAL | | | Monocytes | performed at [facility];[address] | | LAB | | | | [address];[place] | | | | | | [address] | | | | + + + + + -+ | Absolute | 0.1Comment: Testing | 0 - 0.5 K/uL | EXTERNAL | | | Eosinophils | performed at [facility];[address] | | LAB | | | | [address];[place] | | | | | | [address] | | | | + + + + + -+ | Absolute | 0.1Comment: Testing | 0 - 0.1 K/uL | EXTERNAL | | | Basophils | performed at [facility];[address] | | LAB | | | | [address];[place] | | | | | | [address] | | | | + + + + + -+ | Na | 143Comment: Testing | 135 - 143 | EXTERNAL | | | | performed at [facility];[address] | mmol/L | LAB | | | | [address];[place] | | | | | | [address] | | | | + + + + + -+ | K | 4.5Comment: Testing | 3.5 - 4.9 | EXTERNAL | | | | performed at [facility];[address] | mmol/L | LAB | | | | [address];[place] | | | | | | [address] | | | | + + + + + -+ | Cl | 114 (H)Comment: Testing | 99 - 109 mmol/L | EXTERNAL | | | | performed at [facility];[address] | | LAB | | | | [address];[place] | | | | | | [address] | | | | + + + + + -+ | CO2 | 19 (L)Comment: Testing | 23 - 32 mmol/L | EXTERNAL | | | | performed at [facility];[address] | | LAB | | | | [address];[place] | | | | | | [address] | | | | + + + + + -+ | Anion Gap | 14Comment: Testing | 5 - 20 mmol/L | EXTERNAL | | | | performed at [facility];[address] | | LAB | | | | [address];[place] | | | | | | [address] | | | | + + + + + -+ | Glucose, | 115 (H)Comment: Testing | 65 - 99 mg/dL | EXTERNAL | | | Fasting | performed at [facility];[address] | | LAB | | | | [address];[place] | | | | | | [address] | | | | + + + + + -+ | BUN | 95 (H)Comment: Testing | 8 - 25 mg/dL | EXTERNAL | | | | performed at [facility];[address] | | LAB | | | | [address];[place] | | | | | | [address] | | | | + + + + + -+ | Creatinine | 4.32 (H)Comment: Testing | 0.70 - 1.30 | EXTERNAL | | | | performed at [facility];[address] | mg/dL | LAB | | | | [address];[place] | | | | | | [address] | | | | + + + + + -+ | BUN/Creatin | 22Comment: Testing | | EXTERNAL | | | ine Ratio | performed at [facility];[address] | | LAB | | | | [address];[place] | | | | | | [address] | | | | + + + + + -+ | Calcium | 7.9 (L)Comment: Testing | 8.5 - 10.2 | EXTERNAL | | | | performed at [facility];[address] | mg/dL | LAB | | | | [address];[place] | | | | | | [address] | | | | + + + + + -+ | Protein, | 4.8 (L)Comment: Testing | 6.3 - 8.2 g/dL | EXTERNAL | | | Total | performed at [facility];[address] | | LAB | | | | [address];[place] | | | | | | [address] | | | | + + + + + -+ | Albumin | 2.6 (L)Comment: Testing | 3.3 - 4.8 g/dL | EXTERNAL | | | | performed at [facility];[address] | | LAB | | | | [address];[place] | | | | | | [address] | | | | + + + + + -+ | Globulin | 2.2Comment: Testing | 1.3 - 4.9 g/dL | EXTERNAL | | | | performed at [facility];[address] | | LAB | | | | [address];[place] | | | | | | [address] | | | | + + + + + -+ | A/G Ratio | 1.2Comment: Testing | 1.0 - 2.4 | EXTERNAL | | | | performed at [facility];[address] | | LAB | | | | [address];[place] | | | | | | [address] | | | | + + + + + -+ | Bilirubin | 0.3Comment: Testing | 0.1 - 1.5 mg/dL | EXTERNAL | | | Total | performed at [facility];[address] | | LAB | | | | [address];[place] | | | | | | [address] | | | | + + + + + -+ | ALP, | 14 (L)Comment: Testing | 35 - 115 U/L | EXTERNAL | | | External | performed at [facility];[address] | | LAB | | | | [address];[place] | | | | | | [address] | | | | + + + + + -+ | AST | 19Comment: Testing | 10 - 45 U/L | EXTERNAL | | | | performed at [facility];[address] | | LAB | | | | [address];[place] | | | | | | [address] | | | | + + + + + -+ | ALT | 15Comment: Testing | 10 - 65 U/L | EXTERNAL | | | | performed at [facility];[address] | | LAB | | | | [address];[place] | | | | | | [address] | | | | + + + + + -+ | Estimated | 15 (L)Comment: GFR <60: | mL/min/1.73m2 | EXTERNAL [...] | | | | | | at [facility];[address] | [address];[place] [address] | | | | + + + + + -+ | CK, Total | 87Comment: Testing | 55 - 400 U/L | EXTERNAL | | | | performed at [facility];[address] | | LAB | | | | [address];[place] | | | | | | [address] | | | | + + + + + -+ | INR | 1.2Comment: REFERENCE | | EXTERNAL | | | | RANGE:0.9 - 1.2 | | LAB | | | | NON-ANTICOAGULATED2.0 | | | | | | - 3.0 ALL OTHER | | | | | | THERAPEUTIC | | | | | | INDICATIONS2.5 - 3.5 | | | | | | MECHANICAL HEART VALVES, | | | | | | RECURRENT OR SYSTEMIC | | | | | | EMBOLISMTesting | | | | | | performed at [facility];[address] | | | | | | [facility];[place] | | | | | | [address] | | | | + + + + + -+ | aPTT, | <20 (L)Comment: Testing | 23 - 32 seconds | EXTERNAL | | | Patient | performed at [facility];[address] | | LAB | | | | [address];[place] | | | | | | [address] | | | | + + + + + -+ | CK-MB | 2.2Comment: Testing | 0.5 - 3.6 ng/mL | EXTERNAL | | | | performed at [facility];[address] | | LAB | | | | [address];[place] | | | | | | [address] | | | | + + + + + -+ | CK-MB Index | 2.5Comment: CK INDEX | | EXTERNAL | | [...] + | Diagnosis | + + | GI bleeding Hemorrhage of gastrointestinal tract, unspecified | + + | Hematemesis | + + | HTN (hypertension) Unspecified essential hypertension | + + | Iron deficiency Other disorders of iron metabolism | + + | Metabolic acidosis, normal anion gap (NAG) Acidosis | + + | Metabolic acidemia Acidosis | + + | Murmur, cardiac Undiagnosed cardiac murmurs | + + | Anemia Anemia, unspecified | + + | CKD (chronic kidney disease), stage V (HCC) Chronic kidney disease, Stage V | + + | Acute posthemorrhagic anemia | + + | Acute upper GI bleed Hemorrhage of gastrointestinal tract, unspecified | + + | Anemia of chronic renal failure Anemia in chronic kidney disease | + + | ARF (acute renal failure) ([facility]) Acute kidney failure, unspecified | + + | Diabetes mellitus ([facility]) Type II or unspecified type diabetes mellitus without mention | | of complication, not stated as uncontrolled | + + | 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
--- OUTSIDE RECORDS SUMMARY | ~2019-12-23 | XMS | Encounter Summary ---
Demographics + + + | Address | [address] | | | [place] [address] | + + + | Home Phone | | + + + | Preferred Language | Unknown | + + + | Marital Status | | + + + | Holiness Affiliation | Unknown | + + + | Race | Unknown | + + + | Ethnic Group | Unknown | + + + Author + + + | Author | [facility] | | | and [place] | + + + | Organization | [facility] | | | [...] [place] | | | | | [address] | | + + + + + | Parth Vital | ECON | Unknown | | + + + + + Care Team Providers + +------+ + | Care Money Market Dealer Name | Role | Phone | + +------+ + | Star Doll MD | PCP | | + +------+ + Encounter Details +--------+ + + + + | Date | Type | Department | Care Team | Description | +--------+ + + + + | 12/15/ | Hospital | [facility] | Bebo [facility] | | | 2012 | Encounter | MED CTR SLEEP | MD [address] | | | | | [place] [address] | [facility] | | | | | [place], [place] | [place] [address] | | | | | [address] | [phone] | | | | | [phone] | | | +--------+ + + + [...] at Time of Discharge + + + +---------+--------+ + | Medication | Sig | Dispensed | Refills | Start | End Date | | | | | | Date | | + + + +---------+--------+ + | aspirin 81 mg EC | Take 81 mg by mouth | | 0 | | | | tablet | Daily. | | | | | + + + +---------+--------+ + | carvedilol (COREG) | Take 25 mg by mouth | | 0 | | | | 25 mg tablet | 2 times daily (with | | | | | | | breakfast & dinner). | | | | | + + + +---------+--------+ + | amlodipine | Take 10 mg by mouth | | 0 | | | | (NORVASC) 10 MG | Daily. | | | | 9 | | tablet | | | | | | + + + +---------+--------+ + | Ascorbic Acid | Take 250 mg by mouth | | 0 | | | | (VITAMIN C) 250 MG | 2 times daily. | | | | 9 | | tablet | | | | | | + + + +---------+--------+ + | Cholecalciferol | Take 1 capsule by | | 0 | | | | (VITAMIN D3) 5000 | mouth Daily. | | | | 9 | | UNITS CAPS | | | | | | + + + +---------+--------+ + | cloNIDine | Take 0.1 mg by | | 0 | | | | (CATAPRES) 0.1 mg | mouth. Two tablets | | | | 9 | | tablet | two times daily | | | | | + + + +---------+--------+ + | clopidogrel | Take 75 mg by mouth | | 0 | | | | (PLAVIX) 75 mg | Daily. | | | | 9 | | tablet | | | | | | + + + +---------+--------+ + | fenofibrate | Take 160 mg by mouth | | 0 | | | | (LOFIBRA, TRIGLIDE) | Daily. | | | | 9 | | 160 mg tablet | | | | | | + + + +---------+--------+ + | ferrous gluconate | Take 324 mg by mouth | | 0 | | | | (FERGON) 324 mg | 2 times daily (with | | | | 9 | | tablet | breakfast & | | | | | | | dinner). | | | | | + + + +---------+--------+ + | furosemide (LASIX) | Take 20 mg by mouth | | 0 | | | | 20 mg tablet | Daily. | | | | 9 | + + + +---------+--------+ + | insulin lispro | Inject 40 [...] | | | | + + + +---------+--------+ + | lisinopril | Take 40 mg by mouth | | 0 | | | | (PRINIVIL,ZESTRIL) | Daily. | | | | 9 | | 40 MG tablet | | | | | | + + + +---------+--------+ + | niacin 500 mg | Take 500 mg by mouth | | 0 | | | | tablet | 2 times daily (with | | | | 9 | | | breakfast & | | | | | | | dinner). | | | | | + + + +---------+--------+ + | simvastatin | Take 40 mg by mouth | | 0 | | | | (ZOCOR) 80 mg tablet | nightly. | | | | 9 | + + + +---------+--------+ + | sitaGLIPtin | Take 100 mg by mouth | | 0 | | | | (JANUVIA) 100 mg | Daily. | | | | 9 | | tablet | | | | | | + + + +---------+--------+ + | terazosin (HYTRIN) | Take 5 mg by mouth | | 0 | | | | 5 mg capsule | nightly. | | | | 9 | + + + +---------+--------+ + documented as of this encounter Plan of Treatment Not on filedocumented as of this encounter Visit Diagnoses Not on filedocumented in this encounter"
--- OUTSIDE RECORDS SUMMARY | ~2019-12-23 | XMS | Encounter Summary ---
Demographics + + + | Address | [address] | | | [place] [address] | + + + | Home Phone | | + + + | Preferred Language | Unknown | + + + | Marital Status | | + + + | Restorationist Affiliation | Unknown | + + + | Race | Unknown | + + + | Ethnic Group | Unknown | + + + Author + + + | Author | [facility] | | | and [place] | + + + | Organization | [facility] | | | and [...] [place] | | | | | [address] | | + + + + + | Parth Vital | ECON | Unknown | | + + + + + Care Team Providers + +------+ + | Care Environmental Journalist Name | Role | Phone | + +------+ + | Star Doll MD | PCP | | + +------+ + Reason for Visit + +--------+ + | Reason | Onset | Comments | | | Date | | + +--------+ + | Medication Refill | 07/14/ | | | | 2019 | | + +--------+ + Encounter Details +--------+--------+ + + + | Date | Type | Department | Care Team | Description | +--------+--------+ + + + | 07/14/ | Refill | [facility] | See Sot[place], | Medication Refill | | 2019 | | [facility] [place] | [address] | | | | | [address] | [facility] [place], | | | | | [facility] [place] | [place] [address] | | | | | [address] | [phone] | | | | | [phone] | | | +--------+--------+ + + + [...]
--- OUTSIDE RECORDS SUMMARY | ~2019-12-23 | XMS | Encounter Summary ---
Demographics + + + | Address | [address] | | | [place] [address] | + + + | Home Phone | | + + + | Preferred Language | Unknown | + + + | Marital Status | | + + + | Druze Affiliation | Unknown | + + + | Race | Unknown | + + + | Ethnic Group | Unknown | + + + Author + + + | Author | [facility] | | | and [place] | + + + | Organization | [facility] | | | [...] [address] | | | | | [address] | | + + + + + | Parth Vital | ECON | Unknown | | + + + + + Care Team Providers + +------+ + | Care Reservoir Engineering Manager Name | Role | Phone | + +------+ + | Star Doll MD | PCP | | + +------+ + Encounter Details +--------+ + + + + | Date | Type | Department | Care Team | Description | +--------+ + + + + | 04/18/ | Orders Only | [facility] | JessaAki Lan | | | 2016 | | CARDIOLOGY [place] | MD [address] | | | | | [address] | [address] | | | | | [place], [place] | [place] [address] | | | | | [address] | [phone] | | | | | [phone] | | | +--------+ + + + [...] + +--------+ + + + | CBC WITH MANUAL | Routin | 04/18/2016 | | Results for this | | DIFFERENTIAL | e | 12:00 AM | | procedure are in the | | | | PST | | results section. | + +--------+ + + + | COMPREHENSIVE | Routin | 04/18/2016 | | Results for this | | METABOLIC PANEL | e | 12:00 AM | | procedure are in the | | | | PST | | results section. | + +--------+ + + + documented in this encounter Results CBC with Manual Differential (04/18/2016 12:00 AM PST) + + + + + + | Component | Value | Ref Range | Performed | Pathologist | | | | | At | Signature | + + + + + + | WBC | 5.4 | 4.5 - 11 10 | EXTERNAL | | | | | | LAB | | + + + + + + | Non- | 4.95 | 4.3 - 5.7 10 | EXTERNAL | | | Red Blood | | | LAB | | | Cells | | | | | | Counted | | | | | + + + + + + | Hemoglobin | 13.4 (A) | 13.5 - 18 g/dL | EXTERNAL | | | | | | LAB | | + + + + + + | Hematocrit, | 42.7 | 41 - 50 % | EXTERNAL | | | POC | | | LAB | | + + + + + + | MCV | 86.2 | 81 - 99 fL | EXTERNAL | | | | | | LAB | | + + + + + + | MCH | 27 | 27 - 33 pg | EXTERNAL | | | | | | LAB | | + + + + + + | MCHC | 31 | 30 - 36 g/dL | EXTERNAL | | | | | | LAB | | + + + + + + | RDW-CV | 17.1 (A) | 10.5 - 15 % | EXTERNAL | | | | | | LAB | | + + + + + + | Platelet | 147 | 140 - 440 K/ L | EXTERNAL | | | Count | | | LAB | | | Plasma | | | | | + + + + + + | MPV | | fL | EXTERNAL | | | | | | LAB | | + + + + + + | % Segmented | 67 | 39 - 80 % | EXTERNAL | | | | | | LAB | | | Neutrophils | | | | | + + + + + + | % | 18.4 (A) | 24 - 44 % | EXTERNAL | | | Lymphocytes | | | LAB | | + + + + + + | % Monocytes | 10.9 | 0 - 12 % | EXTERNAL | | | | | | LAB | | + + + + + + | % | 2.3 | 0 - 6 % | EXTERNAL | | | Eosinophils | | | LAB | | + + + + + + | % Basophils | 1.4 | 0 - 2 % | EXTERNAL | | | | | | LAB | | + + + + + + | Absolute | | / L | EXTERNAL | | | Neutrophils | | | LAB | | + [...] + +---------+ + + Comprehensive Metabolic Panel (04/18/2016 12:00 AM PST) + + + + + + | Component | Value | Ref Range | Performed | Pathologist | | | | | At | Signature | + + + + + + | Glucose, | 314 (A) | 70 - 100 mg/dL | EXTERNAL | | | Fasting | | | LAB | | + + + + + + | BUN | 16 | 6 - 23 mg/dL | EXTERNAL | | | | | | LAB | | + + + + + + | Creatinine | 4.13 (A) | 0.70 - 1.18 | EXTERNAL | | | | | mg/dL | LAB | | + + + + + + | BUN/Creatin | 3.9 (A) | 6.0 - 28.6 | EXTERNAL | | | ine Ratio | | | LAB | | + + + + + + | Calcium | 9.5 | 8.4 - 10.2 | EXTERNAL | | | | | mg/dL | LAB | | + + + + + + | Protein, | 6.2 | 6 - 8 g/dL | EXTERNAL | | | Total | | | LAB | | + + + + + + | Albumin | 3.6 | 3.5 - 5.0 | EXTERNAL | | | | | | LAB | | + + + + + + | Globulin | 2.6 | 1.8 - 3.5 | EXTERNAL | | | | | | LAB | | + + + + + + | A/G Ratio | 1.4 | 1.1 - 2.4 | EXTERNAL | | | | | | LAB | | + + + + + + | Bilirubin | 0.5 | 0.0 - 1.2 mg/dL | EXTERNAL | | | Total | | | LAB | | + + + + + + | ALP, | 51 | 30 - 128 | EXTERNAL | | | External | | | LAB | | + + + + + + | ALT | 4 (A) | 7 - 52 U/L | EXTERNAL | | | | | | LAB | | + + + + + + | AST | 16 | 13 - 39 U/L | EXTERNAL | | | | | [...] + + + + | Cl | 97 | 95 - 112 mmol/L | EXTERNAL | | | | | | LAB | | + + + + + + | CO2 | 27 | 19 - 31 mmol/L | EXTERNAL | | | | | | LAB | | + + + + + + | Anion Gap | 16.7 | 7 - 21 mmol/L | EXTERNAL | | | | | | LAB | | + + + + + + | Estimated | 14 (A) | 60 - 140 mg/dL | [...]
--- OUTSIDE RECORDS SUMMARY | ~2019-12-23 | XMS | Encounter Summary ---
Demographics + + + | Address | [address] | | | [place] [address] | + + + | Home Phone [...] [place] | | | | | [address] | | + + + + + | Parth Vital | ECON | Unknown | | + + + + + Care Team Providers + +------+ + | Care Culinary Chef Name | Role | Phone | + +------+ + | Star Doll MD | PCP | | + +------+ + Reason for Visit +--------+ + | Reason | Comments | +--------+ + | Apnea | | +--------+ + Encounter Details +--------+---------+ + + + | Date | Type | Department | Care Team | Description | +--------+---------+ + + + | 09/30/ | Office | [facility] | Omer Ling PA | YISEL on CPAP (Primary | | 2013 | Visit | SLEEP DISORDER [address] | [address] | Dx) | | | | [address] [place] | [place] | | | | | [place] [address] | [address] | | | | | [phone] | | | +--------+---------+ + + + [...] + + + | Blood Pressure | 112/58 | 09/30/2013 11:06 AM | | | | | PDT | | + + + + + | Pulse | 64 | 09/30/2013 11:06 AM | | | | | PDT | | + + + + + | Temperature | - | - | | + + + + + | Respiratory Rate | 16 | 09/30/2013 11:06 AM | | | | | PDT | | + + + + + | Oxygen Saturation | 99% | 09/30/2013 11:06 AM | | | | | PDT | | + + + + + | Inhaled Oxygen | - | - | | | Concentration | | | | + + + + + | Weight | 95.1 kg (209 lb 9.6 | 09/30/2013 11:06 AM | | | | oz) | PDT | | + + + + + | Height | - | - | | + + + + + | Body Mass Index | 30.95 | 03/01/2013 11:01 AM | | | | | PDT | | + + + + + documented in this encounter Progress Notes Omer Ling PA - 09/30/2013 10:59 AM PDT Subjective: Patient ID: Duane Vital is a 68 y.o. male. HPI last office visit was: 04/01/2013 date of polysomnography: 12/15/2012 AHI: 23.6 RDI: 40.3 O2%: 85% with 1.1 minutes below 88% Machine type: ResMed S9 with nasal pillows obtained from: [facility] pressure: 5-20 cm 95%: 8.1 cm maxium: 9.2 cm Nights using CPAP: 152/182 average usage (all nights): 3:58 average usage (nights used): 4:46 AHI: 0.5 Duane comes in for CPAP compliance. He stopped wearing his CPAP 1-2 months ago after thor ing a trip to a family members without his CPAP. He didn't notice much of a difference in h is sleep quality while sleeping without his CPAP, so he decided not to wear it anymore. He has lost about 20 pounds since his original diagnosis and has had a reduction in his pressur e, but he likely still has apnea. He has met his insurance standard for purchasing his CPAP , therefore he owns the machine. Because of this, he and his feel he would benefit fro m keeping his CPAP. He says he will consider starting to wear it again. I highly recommend ed this based on his other health issues (DM, kidney disorder, CVA, HTN). I have discussed the download in detail. It shows that his apnea is well controlled, with an AHI of 0.5. It also shows that his leaks are well controlled. Review of Systems Objective: Physical Exam Assessment: Problem #1: OBSTRUCTIVE SLEEP APNEA (327.23) This is well controlled with CPAP. His CPAP compliance went well for most of the last year , but he stopped wearing it 1-2 months ago. Plan: He is to continue with CPAP indefinitely. I have recommended that he work toward developin g his CPAP into a regular part of his sleep routine again. He is to touch base with his med ical supplier twice per year to ensure that his equipment is satisfactory. I will follow up again in 1 year, sooner prn (he is not interested in any short-term follow up). At that time we will reassess with all appropiate paperwork. Thirty minutes were spe nt [id number], with the majority of time spent in counseling. Omer Ling PA-C cc: Star Doll MD documented in this enco unter Miscellaneous Notes Miscellaneous - ONTAHIRA SCAN KADEEMNH - 09/30/2013 12:00 AM PDT documented in this encounter Plan of Treatment Not on filedocumented as of this encounter Visit Diagnoses + + | Diagnosis | + + | YISEL on CPAP - Primary Obstructive sleep apnea (adult) (pediatric) | + + documented in this encounter"
--- OUTSIDE RECORDS SUMMARY | ~2019-12-23 | XMS | Encounter Summary ---
Demographics + + + | Address | [address] | | | [place] [address] | + + + | Home Phone [...] [place] | | | | | [address] | | + + + + + | Parth Vital | ECON | Unknown | | + + + + + Care Team Providers + +------+ + | Care Cooker Cleaner Name | Role | Phone | + +------+ + | Star Doll MD | PCP | | + +------+ + Reason for Visit +---------+ + | Reason | Comments | +---------+ + | Consult | | +---------+ + Encounter Details +--------+---------+ + + + | Date | Type | Department | Care Team | Description | +--------+---------+ + + + | 12/04/ | Office | [facility] | Bebo Yu | YISEL (obstructive | | 2012 | Visit | SLEEP DISORDER [address] | [address] | sleep apnea) | | | | [address] | [address] [place] | (Primary Dx); | | | | [place] [address] | [place] [address] | Hypercholesterolemia | | | | [phone] | [phone] | ; HBP (high blood | | | | | | pressure); Diabetes | | | | | | type 2 with | | | | | | atherosclerosis of | | | | | | arteries of | | | | | | extremities ([facility]); | | | | | | Retinopathy due to | | | | | | secondary diabetes | | | | | | ([facility]); Olvera's palsy; | | | | | | Kidney disorder; | | | | | | CVA (cerebral | | | | | | infarction) ([facility]) | +--------+---------+ + + + Social History [...] + + + | Blood Pressure | 130/62 | 12/04/2012 8:58 AM | | | | | PDT | | + + + + + | Pulse | 62 | 12/04/2012 8:58 AM | | | | | PDT | | + + + + + | Temperature | - | - | | + + + + + | Respiratory Rate | 16 | 12/04/2012 8:58 AM | | | | | PDT | | + + + + + | Oxygen Saturation | - | - | | + + + + + | Inhaled Oxygen | - | - | | | Concentration | | | | + + + + + | Weight | 104.5 kg (230 lb 6.4 | 12/04/2012 8:58 AM | | | | oz) | PDT | | + + + + + | Height | 175.3 cm (5' 9") | 12/04/2012 8:58 AM | | | | | PDT | | + + + + + | Body Mass Index | 34.02 | 12/04/2012 8:58 AM | | | | | PDT | | + + + + + documented in this encounter Patient Instructions Patient Instructions Cherelle Cuba - 12/04/2012 9:02 AM PDT December 04, 2012 Duane Vital [address] [place] [address] Dear Duane: Thank you for enrolling in [facility]. Please follow the instructions below to view your [facility] online medical record. [facility] allows you to send secure messages to your doctor, view you r test results, renew your prescriptions, schedule appointments, and more. How Do I Sign Up? 1. In your Internet browser, go to [email or web address] 2. Click on the "Sign up with your activation code" button in the "New User?" box. This paul l take you to the New Member Sign Up page. 3. Enter your [facility] activation code exactly as it appears below. You will not need to use this code after you sign up. If you do not sign up before the expiration date, you must req uest a new code through your [facility] or [facility] participating clinic. [facility] Access Code: [email or web address] Expires: 02/02/2013 9:02 4. Fill in the last four digits of your Social Security Number (xxxx) and Date of (mm /dd/yyyy) and click Next. 5. Create a [facility] username. Your username cannot be changed, so think of one t hat is secure and easy to remember. 6. Create a [facility] password. You can change your password at any time. 7. Enter your security question and answer. This can be used at a later time if you forget your password. Click Next. 8. Enter your e-mail address. You will receive e-mail notification when new information is available in [facility]. 9. Click "Sign In". You may now view your medical record. Additional Information If you have questions, you can email [email or web address] [email or web address] or call [phone] to talk to our [place] [facility] care team. Please remember, [facility] should NOT be used for urg ent needs. For all medical emergencies, call 801. Sincerely, Bebo Yu Jr., MD documented in this encounter Progress Notes Bebo Yu Jr., MD - 12/04/2012 9:25 AM PDTFormatting of this note might be differen t from the original. [facility] [place] [address] Ref: Star Doll CC: Chief Complaint Patient presents with Consult History of the Present Illness:This is a 67 year old male who is referred for sleep medici ne consultation by Dr. Indigo Doll because of possible sleep apnea. Other significant medical issues include AODM, CVA, HBP. The patient's records (Dr. Doll) are reviewed. The patient and his are interviewed interviewed and the patient is examined. Bedtime is about 11pm and rise time is about 7am. He estimates a latency to sleep onset of less than 5 minutes. He has nocturia at least 3 times a night and he thinks he sometimes has trouble getting back to sleep (but his isn't so sure about that - "When he lays down, he is usually asleep within 5 minutes"). He denies night sweats. He denies nocturnal heartbu rn. He doesn't really awaken with a dry mouth or nasal/sinus congestion. He denies morning h eadaches. He dreams infrequently. He isn't a sleep walker. He denies dream enactment during sleep. He denies sleep paralysis. He denies restlessness in his legs or arms at night. His has never noticed that his le gs or arms kick or twitch rhythmically at night after he falls asleep. He snores a little - it used to be worse but has improved after he had Olvera's Palsy. His wi fe hasn't noted that he stops breathing at night. He doesn't knowingly awaken himself jovanni pratt for air or snorting. He is very sleepy and tired all day and naps in his chair after breakfast. He will do this after lunch and dinner too. He dozes intermittently during the daytime while watching TV. Hi s goes to bed at 10pm; she states that he falls asleep in his recliner and goes to bed closer to 1am. His states that he often awakens at night in his bed complaining that he can't breath (he says he gets all stuffed up). He actually does most of his sleep in his re cliner. He drinks 3 cups of coffee a day. He denies cataplexy. 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 has no past surgical history on file. Allergies Allergen Reactions Penicillins Current Outpatient Prescriptions Medication Sig Dispense Refill amlodipine (NORVASC) 10 MG tablet Take 10 mg by mouth Daily. Ascorbic Acid (VITAMIN C) 250 MG tablet Take 250 mg by mouth 2 times daily. aspirin 81 mg EC tablet Take 81 mg by mouth Daily. carvedilol (COREG) 25 mg tablet Take 25 mg by mouth 2 times daily (with breakfast & din ner). Cholecalciferol (VITAMIN D3) 5000 UNITS CAPS Take 1 capsule by mouth Daily. cloNIDine (CATAPRES) 0.1 mg tablet Take 0.1 mg by mouth. Three tablets two times daily clopidogrel (PLAVIX) 75 mg tablet Take 75 mg by mouth Daily. fenofibrate (LOFIBRA, TRIGLIDE) 160 mg tablet Take 160 mg by mouth Daily. ferrous gluconate (FERGON) 324 mg tablet Take 324 mg by mouth 2 times daily (with break fast & dinner). furosemide (LASIX) 20 mg tablet Take 20 mg by mouth Daily. insulin lispro protamine-insulin lispro 75/25 (HUMALOG MIX 75/25 KWIKPEN) 100 units/mL SUSP Inject 40 Units under the skin 2 times daily (with breakfast & dinner). lisinopril (PRINIVIL,ZESTRIL) 40 MG tablet Take 40 mg by mouth Daily. niacin 500 mg tablet Take 500 mg by mouth 2 times daily (with breakfast & dinner). simvastatin (ZOCOR) 80 mg tablet Take 40 mg by mouth nightly. sitaGLIPtin (JANUVIA) 100 mg tablet Take 100 mg by mouth Daily. terazosin (HYTRIN) 5 mg capsule Take 5 mg by mouth nightly. Family Medical History: family history includes Asthma in his daughter; Heart surgery in hi s brother; High blood pressure in his sister and son; and Sleep Apnea in his brother. indicated that his mother is . He indicated that his father is . He indicat ed that his sister is alive. He indicated that only one of his three brothers is alive. He i ndicated that his daughter is alive. He indicated that his son is alive. Social History: History Social History Marital Status: Spouse Name: N/A Number of Children: N/A Years of Education: N/A Occupational History [employer] [address] Retired Social History Main Topics Smoking status: Never Smoker Smokeless tobacco: Never Used Alcohol Use: No Drug Use: No Sexually Active: None Other Topics Concern None Social History Narrative None Review of Systems: Constitutional: Denies unexplained fevers, chills, sweats, significant recent weight velasquez ge. Eyes:Denies sudden loss of vision, diplopia, blurred vision. ENT: Denies loss of hearing, vertigo, bleeding gums or poor dental repair. Card:Denies exertional substernal chest heaviness, leg pain. Resp: Denies cough, wheezing, asthma, hemoptysis GI: Denies nausea, vomiting, abdominal pain, diarrhea, constipation, hematochezia. : Denies dysuria, pyuria, hematuria, frequency, incontinence MS: Denies back pain, neck pain, arthralgias, arthritis, myalgias Neuro: Had CVA several years ago. Psych: Denies: depression, anxiety, panic. Heme: Denies easy bruising or prolonged bleeding. No history of transfusions Allergic/Immunologic: Denies seasonal allergies PE: BP 130/62 | Pulse 62 | Resp 16 | Ht 1.753 m (5' 9") | Wt 104.509 kg (230 lb 6.4 oz) | B MN 34.02 kg/m2 Gen: not in acute distress HEENT:Head: Normocephalic, no lesions, without obvious abnormality. Eye: Normal external eye, conjunctiva, lids cornea, CHRIS. Nose: Normal external nose, mucus membranes and septum. Pharynx: Dental Hygiene adequate. Normal buccal mucosa. Tonsillar grade 0. Mallampati 3. Neck / Thyroid: Supple, no masses, nodes, nodules or enlargement. Pulm: lungs clear to auscultation Card: regular rate and rhythm, S1, S2 normal, no murmur, click, rub or gallop GI: soft, non-tender, without masses or organomegaly, soft and normal bowel sounds : Not examined Rectal: Not Examined Ext: peripheral pulses normal, no pedal edema, no clubbing or cyanosis Skin:Not examined Neuro:Mild right facial droop. Motor otherwise grossly normal. Reflexes and sensory exam w ere not done. Psych:age appropriate and casually dressedoriented to time, place and person, mood and aff ect are within normal limits Heme: No cervical LN Assessment: YISEL: I suspect that the patient has YISEL. I have discussed in detail the pathoph ysiology of Obstructive Sleep Apnea with the patient. I've discussed that during NREM sleep the skeletal muscles relax and in REM sleep the skeletal muscles are paralyzed. The muscles that support the back of the throat (the tongue in particular) also relax during NREM sleep and are paralyzed in REM sleep and when this occurs, the back of the throat collapses some. In some patients with a smaller back of the throat, this can result in obstruction to the fl ow of air. This is fundamentally what occurs in YISEL. This can cause repetitive obstruction t o the flow of air all night long cause a person with YISEL to awaken repeatedly at night to "o pen" the back of the throat. If airflow is significantly restricted, blood oxygen levels can fall. The combination of the repetitive awakenings at night and low oxygen levels lead to n umerous other physiologic abnormalities which can result in nocturia, nocturnal heartburn, n ight sweats, morning dry mouth, morning headache, and daytime fatigue/sleepiness. Additional ly, YISEL can cause hypertension and it dramatically increases the risk of heart disease, hear t attack, and stroke. It may play a causative role in obesity and AODM. Untreated YISEL also d ramatically increases the risk of fall asleep car accidents. Treatment can help with all of these issues. CSA: It is also possible that he might have Central Sleep Apnea [place] to his stroke. EDS and insomnia: This could be secondary to YISEL, CSA, organic insomn ia, excessive daytime napping, CVA induced damage to wake/sleep promoting areas of the brain , or breakdown in circadian pacemaker activity. HBP: Treating YISEL, if present, can help with BP control AODM: Treating YISEL, if present, can help with AODM control CVA: Treating YISEL, if present, might decrease the probability of anot her CVA Plan: PSG with ETCO2 monitoring followed, if necessary, by PSG guided PAP Titration. Today, 60 minutes was spent face to face with the patient; the majority of time was spent c ounseling. CC: Dr. Indigo Doll imon, Bebo Severino Jr., MD - 12/04/2012 8:54 AM PDTFormatting of this note might be different from the origin al. 12/04/12 0800 Zhao Depression Inventory-II Depression Score 13 - Minimal depression Insomnia Severity Index Insomnia Severity Index 12 Mitchell Sleepiness Scale Sitting and reading 3 Watching TV 3 Sitting, inactive in a public place (e.g. a theatre or a meeting) 2 As a passenger in a car for an hour without a break 3 Lying down to rest in the afternoon when circumstances permit 3 Sitting and talking to someone 0 Sitting quietly after a lunch without alcohol 3 In a car, while stopped for a few minutes in traffic 0 Total score 17 SF-36v2 Score PF 48.61 RP 39.71 BP 57.89 GH 40.06 VT 36.48 SF 56.85 RE 55.88 MH 47.19 PCS 44.88 MCS 50.82 documented in t his encounter Miscellaneous Notes Miscellaneous - ONBASE SCAN [facility] - 12/08/2012 12:00 AM PDT iscellaneous - ONBASE SCAN [facility] - 12/04/2012 12:00 AM PDTEle ctronically signed by Rubina Emmanuel at 12/08/2012 8:53 AM PDTdocumented in this encounter Plan of Treatment Not on filedocumented as of this encounter Visit Diagnoses + + | Diagnosis | + + | YISEL (obstructive sleep apnea) - Primary Obstructive sleep apnea (adult) (pediatric) | + + | Hypercholesterolemia Pure hypercholesterolemia | + + | HBP (high blood pressure) Unspecified essential hypertension | + + | Diabetes type 2 with atherosclerosis of arteries of extremities (HCC) Type II or | | unspecified type diabetes mellitus with peripheral circulatory disorders, not stated as | | uncontrolled | + + | Retinopathy due to secondary diabetes (HCC) Secondary diabetes mellitus with | | ophthalmic manifestations, not stated as uncontrolled, or unspecified | + + | Olvera's palsy | + + | Kidney disorder Unspecified disorder of kidney and ureter | + + | CVA (cerebral infarction) Unspecified cerebral artery occlusion with cerebral | | infarction | + + documented in this encounter
--- OUTSIDE RECORDS SUMMARY | ~2019-12-23 | XMS | Encounter Summary ---
Demographics + + + | Address | [address] | | | [place] [address] | + + + | Home Phone | | + + + | Preferred Language | Unknown | + + + | Marital Status | | + + + | Quaker Affiliation | Unknown | + + + | Race | Unknown | + + + | Ethnic Group | Unknown | + + + Author + + + | Author | [facility] | | | and [place] | + + + | Organization | [facility] | | | [...] [place] | | | | | [address] | | + + + + + | Parth Vital | ECON | Unknown | | + + + + + Care Team Providers + +------+ + | Care Director News Name | Role | Phone | + +------+ + | Star Doll MD | PCP | | + +------+ + Reason for Visit +--------+ + | Reason | Comments | +--------+ + | Apnea | | +--------+ + Encounter Details +--------+---------+ + + + | Date | Type | Department | Care Team | Description | +--------+---------+ + + + | 04/01/ | Office | [facility] | Omer Ling PA | YISEL on CPAP (Primary | | 2012 | Visit | SLEEP DISORDER [address] | [address] | Dx) | | | | [address] | [place] | | | | | [place] [address] | [address] | | | | | [phone] | | | +--------+---------+ + + + [...] + + + | Blood Pressure | 160/74 | 04/01/2013 11:28 AM | | | | | PDT | | + + + + + | Pulse | 78 | 04/01/2013 11:28 AM | | | | | PDT | | + + + + + | Temperature | - | - | | + + + + + | Respiratory Rate | 16 | 04/01/2013 11:28 AM | | | | | PDT | | + + + + + | Oxygen Saturation | - | - | | + + + + + | Inhaled Oxygen | - | - | | | Concentration | | | | + + + + + | Weight | 100.2 kg (220 lb | 04/01/2013 11:28 AM | | | | 12.8 oz) | PDT | | + + + + + | Height | - | - | | + + + + + | Body Mass Index | 32.61 | 03/01/2013 11:01 AM | | | | | PDT | | + + + + + documented in this encounter Progress Notes Bereket, Cherelle M, Master of Arts - 04/01/2013 11:56 AM PDTFormatting of this note might be di fferent from the original. 04/01/13 1100 Zhao Depression Inventory-II Depression Score 6 - Minimal depression Insomnia Severity Index Insomnia Severity Index 7 Dayton Sleepiness Scale Sitting and reading 1 Watching TV 1 Sitting, inactive in a public place (e.g. a theatre or a meeting) 0 As a passenger in a car for an hour without a break 1 Lying down to rest in the afternoon when circumstances permit 2 Sitting and talking to someone 0 Sitting quietly after a lunch without alcohol 1 In a car, while stopped for a few minutes in traffic 0 Total score 6 SF-36v2 Score PF 48.61 RP 47.06 BP 57.89 GH 40.06 VT 45.85 SF 56.85 RE 55.88 MH 61.27 PCS 44.62 MCS 58.96 Omer Martinez PA - 11:32 AM PDT Subjective: Patient ID: Duane Vital is a 67 y.o. male. HPI last office visit was: 02/04/2013 date of polysomnography: 12/15/2012 AHI: 23.6 RDI: 40.3 O2%: 85% with 1.1 minutes below 88% Machine type: ResMed S9 with nasal pillows obtained from: [facility] pressure: 5-20 cm 95%: 9.8 cm maxium: 10.8 cm Nights using CPAP: 51/56 average usage (all nights): 3:52 average usage (nights used): 4:15 AHI: 0.7 Duane comes in for CPAP compliance. He continues to wear his CPAP on a regular basis, bu t there are many nights he is not wearing it for the duration of his sleep. His main proble m has been with leaks during the night that he is not able to correct. He ends up taking of f his mask and sleeping without it for the remainder of the night. He feels more rested wit h more energy on the nights he is able to wear his CPAP for the duration of the night. I have discussed the download and results of the paperwork in detail. He is unchanged or i mproved in nearly all categories, with no areas of concern. The download shows that his sle ep apnea is well controlled, with an AHI of 0.7. It also shows that his leaks are well cont rolled. Review of Systems Objective: Physical Exam Assessment: Problem #1: OBSTRUCTIVE SLEEP APNEA (327.23) This is well controlled with CPAP. His CPAP compliance is going pretty well, but there are many nights that he is taking it off because of leaks early in the night. Plan: He is to continue with CPAP indefinitely. If he has problems with leaks that he cannot eas shyam correct, he is to take off his mask and reapply it. This is often a more effective way to fix leaks. I have recommended that he work toward wearing his CPAP 100% of the time he i s asleep. He is to touch base with his medical supplier twice per year to ensure that his e quipment is satisfactory. I will follow up again in 6 months, sooner prn. Fifteen minutes were spent [id number], w ith the majority of time spent in counseling. Omer Ling PA-C cc: Star Doll MD documented in this enco unter Miscellaneous Notes Miscellaneous - ONBASE SCAN [facility] - 04/01/2013 12:00 AM PDT iscellaneous - ONBASE SCAN [facility] - 04/01/2013 12:00 AM PDTEle ctronically signed by Rubina Emmanuel at 04/06/2013 8:41 AM PDTdocumented in this encounter Plan of Treatment Not on filedocumented as of this encounter Visit Diagnoses + + | Diagnosis | + + | YISEL on CPAP - Primary Obstructive sleep apnea (adult) (pediatric) | + + documented in this encounter"
--- OUTSIDE RECORDS SUMMARY | ~2019-12-23 | XMS | Encounter Summary ---
Demographics + + + | Address | [address] | | | [place] [address] | + + + | Home Phone | | + + + | Preferred Language | Unknown | + + + | Marital Status | | + + + | Church Affiliation | Unknown | + + + | Race | Unknown | + + + | Ethnic Group | Unknown | + + + Author + + + | Author | [facility] | | | and [place] | + + + | Organization | [facility] | | | and [place] | + + + | Address | Unknown | + + + | Phone | Unavailable | + + + Support + + + + + | Name | Relationship | Address | Phone | + + + + + | Marcela Jamesgan | ECON | [address] | | | | | [facility] [place] | | | | | [address] | | + + + + + | Parth Vital | ECON | Unknown | | + + + + + Care Team Providers + +------+ + | Care Dye Boarding Machine Operator Name | Role | Phone [...] | | | | Hypertension | [place] [address] | [address] | | | | | SOB | [address] | [place] | | | | | (shortness | [place] [address] | [address] | | | | | of breath) | [place] | Phone: | | | | | Procedures | [address] | [phone] | | | | | [place] | Phone: | Fax: | | | | | Myocardial | [phone] | [phone] | | | | | Perfusion | Fax: | | | | | | Mult SPECT | [phone] | | +--------+--------+ + + + + Encounter Details +--------+ + + + + | Date | Type | Department | Care Team | Description | +--------+ + + + + | 03/08/ | Hospital [facility] | | | 2012 | Encounter | [facility] | [place] [address] | | | | | NUCLEAR MEDICINE | [address] [place] [address] | | | | | [address] | [place] [address] | | | | | [place] | [phone] | | | | | [address] | | | | | | [phone] | | | +--------+ + + + [...] | + +--------+ + + + | NM MYOCARDIAL | Routin | 03/08/2013 | Hypertension SOB | Results for this | | PERFUSION MULT SPECT | e | 12:10 PM | (shortness of | procedure are in the | | | | PDT | breath) | results section. | + +--------+ + + + | LVEF VALUE | Routin | 03/08/2013 | | Results for this | | | e | 12:10 PM | | procedure are in the | | | | PDT | | results section. | + +--------+ + + + documented in this encounter Results LVEF VALUE (03/08/2013 12:10 PM PDT) + +-------+ + + + | Component | Value | Ref Range | Performed | Pathologist | | | | | At | Signature | + +-------+ + + + | LVEF-SPECT | 62 | | | | | NUCLEAR | | | | | | STRESS/VIAB | | | | | | ILITY | | | | | + +-------+ + + + documented in this encounter Visit Diagnoses Not on filedocumented in this encounter"
--- OUTSIDE RECORDS SUMMARY | ~2019-12-23 | XMS | Encounter Summary ---
Demographics + + + | Address | [address] | | | [place] [address] | + + + | Home Phone | | + + + | Preferred Language | Unknown | + + + | Marital Status | | + + + | Gnosticist Affiliation | Unknown | + + + [...] [place] | | | | | [address] | | + + + + + | Parth Vital | ECON | Unknown | | + + + + + Care Team Providers + +------+ + | Care Senior Loss Control Specialist Name | Role | Phone | + +------+ + | Star Doll MD | PCP | | + +------+ + Encounter Details +--------+ + + + + | Date | Type | Department | Care Team | Description | +--------+ + + + + | 04/18/ | Orders Only | [facility] | Jeanmarie yL MD | | | 2014 | | NEPHROLOGY [place] | [address] [place] | | | | | [address] [place] | [address] [place], [place] | | | | | [address] [facility], [place] | [address] | | | | | [address] | | | | | | [phone] | | | +--------+ + + + [...] + | HEMOGLOBIN AND | Routin | 04/18/2015 | | Results for this | | HEMATOCRIT | e | 12:00 AM | | procedure are in the | | | | PST | | results section. | + +--------+ + + + | RENAL FUNCTION PANEL | Routin | 04/18/2015 | | Results for this | | | e | 12:00 AM | | procedure are in the | | | | PST | | results section. | + +--------+ + + + documented in this encounter Results Hemoglobin and Hematocrit (04/18/2015 12:00 AM PST) + + + + + + | Component | Value | Ref Range | Performed | Pathologist | | | | | At | Signature | + + + + + + | Hemoglobin | 11.0 (A) | 13.5 - 18.0 | EXTERNAL | | | | | | LAB | | + + + + + + | Hematocrit, | 32.9 (A) | 41 - 50 % | [...] + +---------+ + + Renal Function Panel (04/18/2015 12:00 AM PST) + + + + + + | Component | Value | Ref Range | Performed | Pathologist | | | | | At | Signature | + + + + + + | Glucose, | 177 (A) | 70 - 100 mg/dL | [...] + + + + | K | 3.5 (A) | 3.6 - 5.1 | EXTERNAL [...] | | | LAB | | | [facility] | | | | | + + + + + + | Phosphorus, | 4.2 | 2.5 - 5.0 | EXTERNAL | | | Inorganic | | | LAB | | + + + + + + | BUN/Creatin | 10.7 | 6.0 - 28.6 | EXTERNAL | [...]
--- OUTSIDE RECORDS SUMMARY | ~2019-12-23 | XMS | Encounter Summary ---
Demographics + + + | Address | [address] | | | [place] [address] | + + + | Home Phone [...] [place] | | | | | [address] | | + + + + + | Parth Vital | ECON | Unknown | | + + + + + Care Team Providers + +------+ + | Care Osteopathic Resident Name | Role | Phone | + +------+ + | Star Doll MD | PCP | | + +------+ + Encounter Details +--------+ + + + + | Date | Type | Department | Care Team | Description | +--------+ + + + + | 06/18/ | Orders Only | [facility] | Conversion | | | 2016 | | NEPHROLOGY [place] | Transaction, | | | | | [address] | Provider Unknown | | | | | [address] [facility] | | | | | | [address] | (Fax) | | | | | [phone] | | | +--------+ + + + [...]
--- OUTSIDE RECORDS SUMMARY | ~2019-12-23 | XMS | Clinical Summary ---
Demographics + + + | Address | [address] | | | [place] [address] | + + + | Home Phone | | + + + | Preferred Language | Unknown | + + + | Marital Status | | + + + | Advent Affiliation | Unknown | + + + [...] [place] | | | | | [address] | | + + + + + | Parth Vital | ECON | Unknown | | + + + + + Care Team Providers + +------+ + | Care Tree Tapping Laborer Name | Role | Phone | + +------+ + | Star Doll MD | PCP | | + +------+ + Allergies + + + + + + | Active Allergy | Reactions | Severity | Noted | Comments | | | | | Date | | + + + + + + | Cholestyramine | Nausea And Vomiting | Low | 05/26/20 | | | | | | 14 | | + + + + + + | Gemfibrozil | Nausea And Vomiting | Low | 05/26/20 | | | | | | 14 | | + + + + + + | Penicillins | Rash | Medium | 01/24/20 | Reacted with a | | | | | 11 | rash as a child. Has | | | | | | not had penicillins | | | | | | since. | + + + + + + Medications + + + +---------+------+------+-------+ | Medication | Sig | Dispensed | Refills | Star | End | Statu | | | | | | t | Date | s | | | | | | Date | | | + + + +---------+------+------+-------+ | aspirin 81 mg EC | Take 81 mg by mouth | | 0 | | | Activ | | tablet | Daily. | | | | | e | + + + +---------+------+------+-------+ | carvedilol (COREG) | Take 25 mg by mouth | | 0 | | | Activ | | 25 mg tablet | 2 times daily (with | | | | | e | | | breakfast & dinner). | | | | | | + + + +---------+------+------+-------+ | atorvaSTATin | | | 0 | | | Activ | | (LIPITOR) 40 mg | | | | | | e | | tablet | | | | | | | + + + +---------+------+------+-------+ | B Nhzanpb-S-Ykpqh | Take 1 tablet by | | 0 | | | Activ | | Acid (MARIELENA-MILADYS) | mouth. | | | | | e | | TABS | | | | | | | + + + +---------+------+------+-------+ | ezetimibe (ZETIA) | | | 0 | | | Activ | | 10 mg tablet | | | | | | e | + + + +---------+------+------+-------+ | Glucose Blood | 1 each by Other | | 0 | | | Activ | | (BLOOD GLUCOSE TEST | route as needed. Use | | | | | e | | STRIPS) STRP | as instructed | | | | | | + + + +---------+------+------+-------+ | insulin glargine | Inject 40 Units as | | 0 | 03/2 | | Activ | | (TOUCHELI SOLOSTAR) | directed daily. | | | 12/26 | | e | | 300 units/mL | | | | 19 | | | | concentrated | | | | | | | | injection (pen) | | | | | | | + + + +---------+------+------+-------+ | liraglutide | 0.6 mg. | | 0 | 04/10 | | Activ | | (VICTOZA) 18 mg/3 mL | | | | 020 | | e | | injection | | | | 18 | | | + + + +---------+------+------+-------+ | losartan (COZAAR) | Take 100 mg by mouth | | 0 | | | Activ | | 100 MG tablet | nightly. | | | | | e | + + + +---------+------+------+-------+ | metFORMIN | Take 1,000 mg by | | 0 | | | Activ | | (GLUCOPHAGE) 500 mg | mouth 3 (three) | | | | | e | | tablet | times a week. After | | | | | | | | HD Fri/Fri/Fri | | | | | | + + + +---------+------+------+-------+ | cholecalciferol | Take 2,000 Units by | | 0 | | | Activ | | (VITAMIN D-3) 1,000 | mouth daily. | | | | | e | | units capsule | | | | | | | + + + +---------+------+------+-------+ | terazosin (HYTRIN) | Take 10 mg by mouth | | 0 | | | Activ | | 10 MG capsule | nightly. | | | | | e | + + + +---------+------+------+-------+ | cephalexin | | | 0 | 06/1 | | Activ | | (KEFLEX) 500 mg | | | | 1/20 | | e | | capsule | | | | 19 | | | + + + +---------+------+------+-------+ | clindamycin | | | 0 | 05/3 | | Activ | | (CLEOCIN) 150 mg | | | | 0/20 | | e | | capsule | | | | 19 | | | + + + +---------+------+------+-------+ | TRESIBA FLEXTOUCH | | | 0 | 11/1 | | Activ | | 200 UNIT/ML | | | | 9/20 | | e | | concentrated | | | | 18 | | | | injection (pen) | | | | | | | + + + +---------+------+------+-------+ | UNIFINE PENTIPS | | | 0 | 09/1 | | Activ | | 32G X 4 MM MISC | | | | 1/20 | | e | | | | | | 18 | | | + + + +---------+------+------+-------+ | mometasone | | | 0 | 11/2 | | Activ | | (ELOCON) 0.1 % cream | | | | 9/20 | | e | | | | | | 18 | | | + + + +---------+------+------+-------+ | minoxidil 2.5 mg | Take 2 tablets by | 180 | 3 | 11/1 | | Activ | | tablet | mouth every morning. | tablet | | 2/20 | | e | | | | | | 19 | | | + + + +---------+------+------+-------+ | furosemide (LASIX) | Take 2 tablets by | 180 | 3 | 02/0 | | Activ | | 40 mg tablet | mouth daily. Two | tablet | | 5/20 | | e | | | tablets daily. | | | 20 | | | + + + +---------+------+------+-------+ | potassium chloride | Take 1 tablet by | 90 | 3 | 06/1 | | Activ | | (KLOR-CON) 10 mEq | mouth Daily. 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 | 12/31/2018 | | atka heart | | + + + | S/P TAVR (transcatheter aortic valve replacement) | 12/31/2018 | + + + | History of stroke | 10/29/2018 | + + + | Retinopathy due to secondary diabetes mellitus | 06/18/2018 | + + + | History of non-ST elevation myocardial infarction (NSTEMI) | 05/07/2018 | + + + | Decubitus ulcer, stage 2 | 03/15/2016 | + + + | S/P PTCA (percutaneous transluminal coronary angioplasty) | 03/10/2016 | + + + + + | Overview: D1 - 2.25X15 mm Xience Alpine MESSI; mid LAD - | | 3.25X38 mm Xience Alpine MESSI | + + + + + | Debility | 03/04/2016 | + + + | Hyperphosphatemia | 05/15/2015 | + + + | Chronic kidney disease, stage V | 04/27/2015 | + + + + + | Overview: Last Assessment & Plan: | | CKD, Stage 5, hemodialysis, followed by Dr Ly. | + + + + + | Aortic stenosis | 05/26/2014 | + + + + + | Overview: Last Assessment & Plan: S/P TAVR, #26 | | Retana-Agustín 3, 04/15/2016 ([facility]). | | Endocarditis prophylaxis reenforced.Last Echo, 04/16/2016 | | (Formerly [facility]): TAVR, peak/mean gradients 25/12mmHg, trace | | AI, no MR, trace TR, trace PI, moderate concentric LVH, LVEF | | 55%, moderate LAE, Aortic root 38mm. | + + + + + | Murmur, cardiac | 01/18/2014 | + + + | Elevated ferritin level | 09/27/2013 | + + + | Anemia of chronic renal failure, stage 5 | 01/24/2012 | + + + | Dyslipidemia | 01/24/2012 | + + + + + | Overview: Last Assessment & Plan: Hyperlipidemia, continue | | current meds at current dose (atorvastatin). | + + + + + | Iron deficiency | 01/24/2012 | + + + | Obesity | 01/24/2012 | + + + | Proteinuria | 01/24/2012 | + + + | Vitamin D deficiency | 01/24/2012 | + + + | Cerebrovascular accident | 01/24/2012 | + + + + + | Overview: In 2010 | + + + + + | Diabetic nephropathy | 01/24/2012 | + + + | Type 2 diabetes mellitus with diabetic nephropathy | 01/24/2012 | + + + + + | Overview: Last Assessment & Plan: | | DM2, managed by PCP. | + + + +---+ | YISEL (obstructive sleep apnea) | | + +---+ | Hypercholesterolemia | | + +---+ | HBP (high blood pressure) | | + +---+ | Diabetes type 2 with atherosclerosis of arteries of extremities | | + +---+ | Retinopathy due to secondary diabetes | | + +---+ | Olvera's palsy | | + +---+ | Kidney disorder | | + +---+ | CVA (cerebral infarction) | | + +---+ + + | Overview: Left leg and arm weakness. Residual dysethesias of | | left armProblem list paper cup machine operator utility | + + Encounters +--------+--------+ + + + | Date | Type | Specialty | Care Team | Description | +--------+--------+ + + + | 11/18/ | Refill | Cardiology | See Sotelo, | Medication Refill | | 2020 | | | MD | | +--------+--------+ + + + from Last 3 Months Family History + + +------+ + | Medical History | Relation | Name | Comments | + + +------+ + | Heart surgery | Brother | | | + + +------+ + | Sleep apnea | Brother | | | + + +------+ + | Other (see comment) | Brother | | Kidney failure - had renal transplant | + + +------+ + | Asthma | Daughter | | | + + +------+ + | Heart disease | Father | | [place] | + + +------+ + | Cancer | Mother | | unknown type | + + +------+ + | High blood pressure | Sister | | | + + +------+ + | High blood pressure | Son | | | + + +------+ + | Malig hypertherm | Neg Hx | | | + + +------+ + + +------+ + + | Relation | Name | Status | Comments | + +------+ + + | Brother | | Alive | had renal transplant | + +------+ + + | Brother | | | car accident | | | | (Age | | | | | 21) | | + +------+ + + | Brother | | | Brain cancer | | | | (Age | | | | | 62) | | + +------+ + + | Brother | | Alive | Kidney transplant | + +------+ + + | Brother | | | | + +------+ + + | Daughter | | Alive | | + +------+ + + | Daughter | | Alive | Marine's Granulomatosis | + +------+ + + | Father | | | | | | | (Age | | | | | 68) | | + +------+ + + | Mother | | | | | | | (Age | | | | | 83) | | + +------+ + + | Sister | | Alive | | + +------+ + + | Sister | | Alive | | + +------+ + + | Son | | Alive | | + +------+ + + | Son | | Alive | | + +------+ + + Social History + +-------+ +--------+------+ [...] on file | | + + + Last Filed Vital Signs + + + [...] | | + + + + + Plan of Treatment + + + + + | Health Maintenance | Due Date | Last | Comments | | | | Done | | + + + + + | Diabetic Eye Exam | | | | | | 2 | | | + + + + + | Diabetic Foot Exam | | | | | | 2 | | | + + + + + | Vaccine: Zoster (1 | | | | | of 2) | 4 | | | + + + + + | Vaccine: | | | | | Pneumococcal 65+ (1 | 9 | | | | of 1 - PPSV23) | | | | + + + + + | Colorectal Cancer | | 12/29/19 | | | Screening (FIT) | 5 | 14 | | + + + + + | Hemoglobin A1c | | 06/18/19 | | | Screening | 7 | 17, | | | | | 06/18/19 | | | | | 17, | | | | | 03/04/20 | | | | | 16, | | | | | Addition | | | | | al | | | | | history | | | | | exists | | + + + + + | Adult Annual | | | | | Wellness Visit | 9 | | | + + + + + | Vaccine: Influenza | | 02/10/20 | | | (#1) | 0 | 19, | | | | | 02/09/20 | | | | | 19, | | | | | 02/21/20 | | | | | 18, | | | | | Addition | | | | | al | | | | | history | | | | | exists | | + + + + + | Vaccine: | | 02/10/20 | | | Dtap/Tdap/Td (2 - | 9 | 19 | | | Td) | | | | + + + + + Procedures + +--------+ + + + | Procedure Name | Priori | Date/Time | Associated Diagnosis | Comments | | | ty | | | | + +--------+ + + + | LABS - EXTERNAL SCAN | | 10/21/2019 | | Results for this | | | | 12:00 AM | | procedure are in the | | | | PDT | | results section. | + +--------+ + + + | LABS - EXTERNAL SCAN | | 10/21/2019 | | Results for this | | | | 12:00 AM | | procedure are in the | | | | PDT | | results section. | + +--------+ + + + from Last 3 Months Results LABS - EXTERNAL SCAN (10/21/2019 12:00 AM PDT)Only the most recent of 2 results within the time period is included. + + + | Narrative | Performed At | + + + | Ordered by an | | | unspecified provider. | | + + + from Last 3 Months Insurance + +--------+ +--------+ + +--------+ | Payer | Benefi | Subscriber | Effect | Phone | Address | Type | | | t Plan | ID | ej | | | | | | / | | Dates | | | | | | Group | | | | | | + +--------+ +--------+ + +--------+ | [employer] | [employer] | [id number] | 08/08/19 | | | Medica | | | HEALTH | | 08-Pre | | | re | | | MDCR | | sent | | | | + +--------+ +--------+ + +--------+ | MEDICARE | MEDICA | [id number] | | [phone] | | Medica | | | RE | | 009-Pr | 5 | | re | | | PART A | | esent | | | | | | AND B | | | | | | + +--------+ +--------+ + +--------+ | [employer] | [employer] | [id number] | 06/09/19 | [phone] | [address] | [place] | | | HEALTH | | 19-Pre | [phone] | [phone] | ity | | | MDCR | | sent | | [place], | | | | [place] | | | | [place] [address] | | + +--------+ +--------+ + +--------+ + +--------+ +--------+ + + | Guarantor Name | Accoun | Relation to | Date | Phone | Billing Address | | | t Type | Patient | of | | | | | | | | | | + +--------+ +--------+ + + | Duane Vital | Person | Self [birth year] | [address] | | [place] | al/Fam | | 1945 | [phone] | [place] | | | [place] | | | [address] (Home) | [address] | + +--------+ +--------+ + + | Duane Vital | Person | Self [birth year] | [address] | | [place] | al/Fam | | 1945 | [phone] | [place] | | | [place] | | | 9 (Home) | [address] | + +--------+ +--------+ + + Advance Directives + + + + + | Type | Date Recorded | Patient | Explanation | | | | Metal Furrer | | + + + + + | Power of | | | | | Plate Maker Zinc | | | | + + + + + | Advance | | | | | Directive | | | | + + + + +
--- OUTSIDE RECORDS SUMMARY | ~2019-12-23 | XMS | Encounter Summary ---
Demographics + + + | Address | [address] | | | [place] [address] | + + + | Home Phone | | + + + | Preferred Language | Unknown | + + + | Marital Status | | + + + | Yazidism Affiliation | Unknown | + + + | Race | Unknown | + + + | Ethnic Group | Unknown | + + + Author + + + | Author | [facility] | | | and [place] | + + + | Organization | [facility] | [...] [place] | | | | | [place] | | | | | [address] | | + + + + + | Parth Vital | ECON | Unknown | | + + + + + Care Team Providers + +------+ + | Care Advertising Inserter Name | Role | Phone | + +------+ + | Star Doll MD | PCP | | + +------+ + Encounter Details +--------+ + + + + | Date | Type | Department | Care Team | Description | +--------+ + + + + | 08/01/ | Orders Only | [facility] | Star Doll | | | 2015 | | [facility] | MD [address] | | | | | [address] | [address] | | | | | [facility] | [place] | | | | | [address] | [address] | | | | | [phone] | | | | | | | | +--------+ + + + [...] + | HEMOGLOBIN A1C | Routin | 08/01/2015 | | Results for this | | | e | 3:11 PM | | procedure are in the | | | | PST | | results section. | + +--------+ + + + documented in this encounter Results Hemoglobin A1C (08/01/2015 3:11 PM PST) + + + + + + | Component | Value | Ref Range | Performed | Pathologist | | | | | At | Signature | + + + + + + | Hemoglobin | 8.6Comment: Est Avg | % | EXTERNAL | | | A1c | Glucose 200 | | LAB | | + + [...]
--- OUTSIDE RECORDS SUMMARY | ~2019-12-23 | XMS | Encounter Summary ---
Demographics + + + | Address | [address] | | | [place] [address] | + + + | Home Phone | | + + + | Preferred Language | Unknown | + + + | Marital Status | | + + + | Nondenominational Affiliation | Unknown | + + + | Race | Unknown | + + + | Ethnic Group | Unknown | + + + Author + + + | Author | [facility] | | | and [place] | + + + | Organization | [facility] | | | [...] [place] | | | | | [address] | | + + + + + | Parth Vital | ECON | Unknown | | + + + + + Care Team Providers + +------+ + | Care Amr Physician Name | Role | Phone | + +------+ + | Star Doll MD | PCP | | + +------+ + Encounter Details +--------+ + + + + | Date | Type | Department | Care Team | Description | +--------+ + + + + | 10/24/ | Orders Only | [facility] | Jeanmarie Ly MD | | | 2014 | | NEPHROLOGY [place] | [address] [place] | | | | | [address] [place] | [address] [place], [place] | | | | | [address] [place], [place] | [address] | | | | | [address] | | | | | | [phone] | | | +--------+ + + + [...] + | HEMOGLOBIN AND | Routin | 10/24/2014 | | Results for this | | HEMATOCRIT | e | 12:00 AM | | procedure are in the | | | | PDT | | results section. | + +--------+ + + + | RENAL FUNCTION PANEL | Routin | 10/24/2014 | | Results for this | | | e | 12:00 AM | | procedure are in the | | | | PDT | | results section. | + +--------+ + + + documented in this encounter Results Hemoglobin and Hematocrit (10/24/2014 12:00 AM PDT) + + + + + + | Component | Value | Ref Range | Performed | Pathologist | | | | | At | Signature | + + + + + + | Hemoglobin | 11.7 (A) | 13.5 - 18.0 | EXTERNAL | | | | | | LAB | | + + + + + + | Hematocrit, | 36.1 (A) | 41 - 50 % | [...] + +---------+ + + Renal Function Panel (10/24/2014 12:00 AM PDT) + + + + + + | Component | Value | Ref Range | Performed | Pathologist | | | | | At | Signature | + + + + + + | Glucose, | 116 (A) | 70 - 100 mg/dL | EXTERNAL | | | Fasting | | | LAB | | + + + + + + | BUN | 51 (A) | 6 - 23 mg/dL | EXTERNAL | | | | | | LAB | | + + + + + + | Creatinine | 4.48 (A) | 0.70 - 1.18 | EXTERNAL [...] | | | LAB | | | [facility] | | | | | + + + + + + | Phosphorus, | 4.4 | 2.5 - 5.0 | EXTERNAL | | | Inorganic | | | LAB | | + + + + + + | BUN/Creatin | 11.4 | 6.0 - 28.6 | EXTERNAL | [...]
--- OUTSIDE RECORDS SUMMARY | ~2019-12-23 | XMS | Encounter Summary ---
Demographics + + + | Address | [address] | | | [place] [address] | + + + | Home Phone | | + + + | Preferred Language | Unknown | + + + | Marital Status | | + + + | Sabianism Affiliation | Unknown | + + + | Race | Unknown | + + + | Ethnic Group | Unknown | + + + Author + + + | Author | [facility] | | | and [place] | + + + | Organization | [facility] | | | and [...] [place] | | | | | [address] | | + + + + + | Parth Vital | ECON | Unknown | | + + + + + Care Team Providers + +------+ + | Care Assistance Specialist Name | Role | Phone | + +------+ + | Star Doll MD | PCP | | + +------+ + Reason for Visit +--------+ + | Reason | Comments | +--------+ + | Other | F/U referral forms | +--------+ + Encounter Details +--------+ + + + + | Date | Type | Department | Care Team | Description | +--------+ + + + + | 05/23/ | Telephone | [facility] | Zane Pina | Other (F/U referral | | 2016 | | [facility] | MD Candido [address] | forms) | | | | KIDNEY TRANSPLANT | [facility] [address], | | | | | [address] [facility] | [place] [address] | | | | | [address] [place] | [phone] | | | | | [address] | | | | | | [phone] | | | +--------+ + + + [...] Telephone Encounter - Bri Kruse CMA - 05/23/2016 11:28 AM PSTForms not recieved: I called the patient spoke with him stating that we had not received paperwork / forms rega rding his transplant referral. He said he will finish filling it out. I explained this was a reminder call and I stated that I would be sending him a letter letting him know we woul d be closing the referral after 2 weeks if we did not receive his paperwork as a matter of p rotocol, but he could have his bundle clerk refer him again. I left our number and my name a s contact. We discussed that his dialysis unit could fax the forms for him. The patient ex pressed understanding. 05/24/16: Faxed letter to patient dialysis unit. (Unit not entered into computer - Unable to obtain [phone]) document ed in this encounter Plan of Treatment Not on filedocumented as of this encounter Visit Diagnoses Not on filedocumented in this encounter"
--- OUTSIDE RECORDS SUMMARY | ~2019-12-23 | XMS | Encounter Summary ---
Demographics + + + | Address | [address] | | | [place] [address] | + + + | Home Phone | | + + + | Preferred Language | Unknown | + + + | Marital Status | | + + + | Shinto Affiliation | Unknown | + + + | Race | Unknown | + + + | Ethnic Group | Unknown | + + + Author + + + | Author | [facility] | | | and [place] | + + + | Organization | [facility] | | [...] [place] | | | | | [address] | | + + + + + | Parth Vital | ECON | Unknown | | + + + + + Care Team Providers + +------+ + | Care Mobile Heavy Equipment Mechanic Name | Role | Phone | + +------+ + | Star Doll MD | PCP | | + +------+ + Encounter Details +--------+ + + + + | Date | Type | Department | Care Team | Description | +--------+ + + + + | 12/31/ | Orders Only | [facility] | Provider, | | | 2019 | | SYSTEM GENERIC OP | MD [address] | | | | | [address] | Paula Pritchard | | | | | [address] [place], [place] | [place] [address] | | | | | [address] | | | | | | [phone] | | | +--------+ + + + [...]
--- OUTSIDE RECORDS SUMMARY | ~2019-12-23 | XMS | Encounter Summary ---
Demographics + + + | Address | [address] | | | [place] [address] | + + + | Home Phone | | + + + | Preferred Language | Unknown | + + + | Marital Status | | + + + | Moravian Affiliation | Unknown | + + + [...] [address] | | | | | [facility] | | | | | [address] | | + + + + + | Parth Vital | ECON | Unknown | | + + + + + Care Team Providers + +------+ + | Care Datastage Architect Name | Role | Phone | [...] | | | | Hypertension | [place] [address] | [address] | | | | | SOB | [address] | [place] | | | | | (shortness | [place] [address] | [address] | | | | | of breath) | [place] | Phone: | | | | | Procedures | [address] | [phone] | | | | | [place] | Phone: | Fax: | | | | | Myocardial | [phone] | [phone] | | | | | Perfusion | Fax: | | | | | | Mult SPECT | [phone] | | +--------+--------+ + + + + Encounter Details +--------+ + + + + | Date | Type | Department | Care Team | Description | +--------+ + + + + | 03/08/ | Hospital [facility] | Wendy Shelby | | | 2012 | Encounter | [facility] | [place] [address] | | | | | NUCLEAR MEDICINE | [address] [place] [address] | | | | | [address] | [place] [address] | | | | | [place] | [phone] | | | | | [address] | | | | | | [phone] | | | +--------+ + + + [...] + documented as of this encounter Procedure Notes ONARCAD[facility] QUANVA - 04/07/2013 12:00 AM PDT 13 1:09 PM PDTONARCADIO SCAN KARLEE - 04/07/2013 12:00 AM PDT NBASE SCAN [facility] - 04/07/2013 12:00 AM PDT documented in this encounter Miscellaneous Notes Miscellaneous - ONBASE SCAN [facility] - 04/07/2013 12:00 AM PDT [facility] - 04/06/2013 12:00 AM PDTElec tronically signed by arcadio [facility] at 04/06/2013 12:06 PM PDTMiscellaneous - [facility] - 03/24/2013 12:00 AM PDT do cumented in this encounter Plan of Treatment Not [...]
--- OUTSIDE RECORDS SUMMARY | ~2019-12-23 | XMS | Encounter Summary ---
Demographics + + + | Address | [address] | | | [place] [address] | + + + | Home Phone [...] [place] | | | | | [address] | | + + + + + | Parth Vital | ECON | Unknown | | + + + + + Care Team Providers + +------+ + | Care Building Analyst/Supervisor Name | Role | Phone | + +------+ + | Star Doll MD | PCP | | + +------+ + Encounter Details +--------+ + + + + | Date | Type | Department | Care Team | Description | +--------+ + + + + | 04/23/ | Abstract | [facility] | Zane Pina | | | 2015 | | [facility] | MD Candido [address] | | | | | KIDNEY TRANSPLANT | [place] [address] [place], | | | | | [address] [place] | [place] [address] | | | | | [address] [place] | [phone] | | | | | [address] | | | | | | [phone] | | | +--------+ + + + [...]
--- OUTSIDE RECORDS SUMMARY | ~2019-12-23 | XMS | Encounter Summary ---
Demographics + + + | Address | [address] | | | [place] [address] | + + + | Home Phone | | + + + | Preferred Language | Unknown | + + + | Marital Status | | + + + | Buddhist Affiliation | Unknown | + + + [...] [place] | | | | | [address] | | + + + + + | Parth Vital | ECON | Unknown | | + + + + + Care Team Providers + +------+ + | Care Accounts Receivable Supervisor Name | Role | Phone | + +------+ + | Star Doll MD | PCP | | + +------+ + Encounter Details +--------+ + + + + | Date | Type | Department | Care Team | Description | +--------+ + + + + | 08/06/ | Orders Only | [facility] | Tiago Sotelo, | | | 2016 | | [address] | MD [address] | | | | | [address] | [place], | | | | | [place] | [place] [address] | | | | | [address] | [phone] | | | | | [phone] | | | +--------+ + + + [...] + | ECHO INTERPRETATION | Routin | 08/06/2016 | | Results for this | | OF OUTSIDE FILMS | e | 3:15 PM | | procedure are in the | | | | PST | | results section. | + +--------+ + + + documented in this encounter Results ECHO Interpretation of Outside Films (08/06/2016 3:15 PM PST) + + | Specimen | + + | | + + + + + | Impressions | Performed At | + + + | 1. Overall left ventricular systolic function is normal with, an EF | | | between 60 - 65 %. 2. The diastolic filling pattern indicates | | | impaired relaxation consistent with mild dysfunction (Grade I). 3. | | | The right ventricle is normal in size and function. 4. 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 | | + + + + + + | Narrative | Performed At | + + + | Patient Name: BRIANNA VITAL Date of : 1945 | | | Performing Physician: TIAGO SOTELO MD | | | | | | INDICATIONS SOB, TAVR CONCLUSIONS 1. | | | Overall left ventricular systolic function is normal with, an EF | | | between 60 - 65 %. 2. The diastolic filling pattern indicates | | | impaired relaxation consistent with mild dysfunction (Grade I). 3. | | | The right ventricle is normal in size and function. 4. 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 FINDINGS -------- ECG | | | rhythm: Sinus rhythm with occasional PVCs. Study: A 2-dimensional | | | transthoracic echocardiogram with m-mode, spectral and color flow | | | Doppler with strain imaging was perfomed. Study: This was a | | | technically adequate study. Left Ventricle: Overall left ventricular | | | systolic function is normal with, an EF between 60 - 65 %. Left | | | Ventricle: The left ventricle cavity size is normal. Left Ventricle: | | | Left ventricular wall thickness is normal. Left Ventricle: No | | | regional wall motion abnormalities. Left Ventricle: The diastolic | | | filling pattern indicates impaired relaxation consistent with mild | | | dysfunction (Grade I). Right Ventricle: The right ventricle is normal | | | in size and function. Left Atrium: The left atrium is mildly | | | enlarged. Right Atrium: The right atrial size is normal. Aortic | | | Valve: Trace to mild amount of perivalvular aortic regurgitation. | | | Aortic Valve: Normally functioning bioprosthetic valve. Mitral Valve: | | | The mitral valve is normal. Mitral Valve: There is trace mitral | | | regurgitation. Tricuspid Valve: The tricuspid valve appears | | | structurally normal. Tricuspid Valve: Trace tricuspid regurgitation | | | present. Tricuspid Valve: There is no evidence of pulmonary | | | hypertension. Tricuspid Valve: The right ventricular systolic | | | pressure (pulmonary artery systolic pressure), as measured by Doppler, | | | is 25.42mmHg. Pulmonic Valve: The pulmonic valve was not well | | | visualized. Pericardium: There is no pericardial effusion. [...] | | | observed. MEASUREMENTS Ao asc: 3.11 cm Ao | | | Diam: 2.67 cm Ao sinus: 3.[address] junct: 2.95 cm IVC: | | | 1.88 cm LA Diam: 3.93 cm LA Major: 5.26 cm EDV(Teich): | | | 115.60 ml IVSd: 1.11 cm LVIDd: 4.95 cm LVPWd: 1.03 cm | | | LVOT Area: 4.05 cm2 LVOT Diam: 2.27 cm %FS: 34.02 % | | | EF(Teich): 62.74 % ESV(Teich): 43.07 ml LVIDs: 3.26 cm | | | SV(Teich): 72.53 ml RA Major: 4.87 cm RVIDd: 3.67 cm LVEF | | | MOD A2C: 64.95 % SV MOD A2C: 94.59 ml LVEF MOD A4C: 60.13 % | | | SV MOD A4C: 93.22 ml EF Biplane: 62.82 % LVEDV MOD BP: | | | 152.53 ml LVESV MOD BP: 56.69 ml LVEDV MOD A2C: 145.63 ml | | | LVLd A2C: 9.24 cm LVEDV MOD A4C: 155.02 ml LVLd A4C: 9.59 | | | cm LVESV MOD A2C: 51.03 ml LVLs A2C: 8.05 cm LVESV MOD A4C: | | | 61.79 ml LVLs A4C: 7.86 cm LAESV(A-L): 80.25 ml LAESV | | | Index (A-L): 39.15 ml/m2 LAAs A2C: 22.22 cm2 LAESV A-L A2C: | | | 83.08 ml LALs A2C: 5.04 cm LAAs A4C: 21.47 cm2 LAESV A-L | | | A4C: 76.98 ml LALs A4C: 5.08 cm RAAs: 15.53 cm2 RAESV A-L: | | | 43.40 ml RAESV MOD: 39.16 ml RALs: 4.77 cm TAPSE: 2.81 | | | cm AV maxP.60 mmHg AV meanP.97 mmHg AV Vmax: | | | 2.66 m/s AV Vmean: 1.72 m/s AV VTI: 48.67 cm ZEKE Vmax: | | | 1.81 cm2 ZEKE (VTI): 1.96 cm2 AVAI Vmax: 0.00 cm2/m2 AVAI | | | (VTI): 0.00 cm2/m2 LVOT maxP.70 mmHg LVOT meanP.25 | | | mmHg LVSI Dopp: 46.75 ml/m2 LVSV Dopp: 95.84 ml LVOT Vmax: | | | 1.19 m/s LVOT Vmean: 0.84 m/s LVOT VTI: 23.62 cm MV A Doe: | | | 0.88 m/s MV DecT: 232.07 ms MV E Doe: 0.65 m/s MV E/A | | | Ratio: 0.73 MV PHT: 67.30 ms MVA By PHT: 3.26 cm2 Septal | | | e': 0.04 m/s Septal E/e': 14.23 Lateral e': 0.08 m/s | | | Lateral E/e': 7.67 RAP: 5 mmHg RVSP: 25.42 mmHg TR maxPG: | | | 20.42 mmHg TR Vmax: 2.25 m/s Rubber And Pounder: LYLY Authenticated | | | by: Star Priset Report Date/Time: 08-06-2016 19:12:14 | | + + + + + | Procedure Note | + + | Ramiro, Rad Conversion - 01/28/2019 6:38 PM PDT Patient Name: Neal VITAL | | of : 1945 Performing Physician: TIAGO SOTELO, | | INDICATIONS S | | OB, TAVR CONCLUSIONS 1. Overall left ventricular systolic function is normal | | with, an EF between 60 - 65 %.2. The diastolic filling pattern indicates impaired | | relaxation consistent with mild dysfunction (Grade I).3. The right ventricle is normal | | in size and function.4. Normally functioning bioprosthetic aortic valve. | | FINDINGS--------ECG rhythm: Sinus rhythm with occasional PVCs.Study: A 2-dimensional | | transthoracic echocardiogram with m-mode, spectral and color flow Doppler with strain | | imaging was perfomed.Study: This was a technically adequate study.Left Ventricle: | | Overall left ventricular systolic function is normal with, an EF between 60 - 65 %.Left | | Ventricle: The left ventricle cavity size is normal.Left Ventricle: Left ventricular | | wall thickness is normal.Left Ventricle: No regional wall motion abnormalities.Left | | Ventricle: The diastolic filling pattern indicates impaired relaxation consistent with | | mild dysfunction (Grade I).Right Ventricle: The right ventricle is normal in size and | | function.Left Atrium: The left atrium is mildly enlarged.Right Atrium: The right atrial | | size is normal.Aortic Valve: Trace to mild amount of perivalvular aortic | | regurgitation.Aortic Valve: Normally functioning bioprosthetic valve.Mitral Valve: The | | mitral valve is normal.Mitral Valve: There is trace mitral regurgitation.Tricuspid | | Valve: The tricuspid valve appears structurally normal.Tricuspid Valve: Trace tricuspid | | regurgitation present.Tricuspid Valve: There is no evidence of pulmonary | | hypertension.Tricuspid Valve: The right ventricular systolic pressure (pulmonary artery | | systolic pressure), as measured by Doppler, is 25.42mmHg.Pulmonic Valve: The pulmonic | | valve was not well visualized.Pericardium: There is no pericardial effusion.IVC/Hepatic | | Veins: The IVC is normal size (1.5-2.5cm) and collapses >50% with sniff, consistent with | | central venous pressures of 5-10mmHg.Aorta: The aortic root, ascending aorta and aortic | | arch are normal.Mass: No mass visualizedThrombus: No clot visualizedThrombus: No | | vegetation visualized.Septum: No ASD observed.Septum: No VSD observed. | | MEASUREMENTS Ao asc: 3.11 cmAo Diam: 2.67 cmAo sinus: 3.[address] | | junct: 2.95 cmIVC: 1.88 cmLA Diam: 3.93 cmLA Major: 5.26 cmEDV(Teich): 115.60 | | mlIVSd: 1.11 cmLVIDd: 4.95 cmLVPWd: 1.03 cmLVOT Area: 4.05 [id number] Diam: 2.27 | | cm%FS: 34.02 %EF(Teich): 62.74 %ESV(Teich): 43.07 mlLVIDs: 3.26 cmSV(Teich): | | 72.53 mlRA Major: 4.87 cmRVIDd: 3.67 cmLVEF MOD A2C: 64.95 %SV MOD A2C: 94.59 | | mlLVEF MOD A4C: 60.13 %SV MOD A4C: 93.22 mlEF Biplane: 62.82 %LVEDV MOD BP: | | 152.53 mlLVESV MOD BP: 56.69 mlLVEDV MOD A2C: 145.63 mlLVLd A2C: 9.24 cmLVEDV MOD | | A4C: 155.02 mlLVLd A4C: 9.59 cmLVESV MOD A2C: 51.03 mlLVLs A2C: 8.05 cmLVESV MOD | | A4C: 61.79 mlLVLs A4C: 7.86 cmLAESV(A-L): 80.25 mlLAESV Index (A-L): 39.15 | | ml/m2LAAs A2C: 22.22 ba5FTWPS A-L A2C: 83.08 mlLALs A2C: 5.04 cmLAAs A4C: 21.47 | | [id number] A-L A4C: 76.98 mlLALs A4C: 5.08 cmRAAs: 15.53 ou2ZOACY A-L: 43.40 | | mlRAESV MOD: 39.16 mlRALs: 4.77 cmTAPSE: 2.81 cmAV maxP.60 mmHgAV meanPG: | | 13.97 mmHgAV Vmax: 2.66 m/Apoorva Vmean: 1.72 m/Apoorva VTI: 48.67 cmAVA Vmax: 1.81 | | cm2AVA (VTI): 1.96 [id number] Vmax: 0.00 cm2/m2AVAI (VTI): 0.00 cm2/m2LVOT maxPG: | | 5.70 mmHgLVOT meanP.25 mmHgLVSI Dopp: 46.75 ml/m2LVSV Dopp: 95.84 mlLVOT Vmax: | | 1.19 m/sLVOT Vmean: 0.84 m/sLVOT VTI: 23.62 cmMV A Doe: 0.88 m/sMV DecT: | | 232.07 msMV E Doe: 0.65 m/sMV E/A Ratio: 0.73MV PHT: 67.30 msMVA By PHT: 3.26 | | ah1Glaswm e': 0.04 m/sSeptal E/e': 14.23Lateral e': 0.08 m/sLateral E/e': | | 7.67RAP: 5 mmHgRVSP: 25.42 mmHgTR maxP.42 mmHgTR Vmax: 2.25 m/s | | Rubber And Pounder: HESHAMuthenticated by: Star Burdick Date/Time: 08-06-2016 19:12:14 | | IMPRESSION: 1. Overall left ventricular systolic function is normal with, an EF between | | 60 - 65 %.2. The diastolic filling pattern indicates impaired relaxation consistent with | | mild dysfunction (Grade I).3. The right ventricle is normal in size and function.4. | | Normally functioning bioprosthetic aortic valve. | |Ao asc: 3.11 cm | |Ao Diam: 2.67 cm | |Ao sinus: 3.19 cm | |Ao st junct: 2.95 cm | |IVC: 1.88 cm | |LA Diam: 3.93 cm | |LA Major: 5.26 cm | |EDV(Teich): 115.60 ml | |IVSd: 1.11 cm | |LVIDd: 4.95 cm | |LVPWd: 1.03 cm | |LVOT Area: 4.05 cm2 | |LVOT Diam: 2.27 cm | |%FS: 34.02 % | |EF(Teich): 62.74 % | |ESV(Teich): 43.07 ml | |LVIDs: 3.26 cm | |SV(Teich): 72.53 ml | |RA Major: 4.87 cm | |RVIDd: 3.67 cm | |LVEF MOD A2C: 64.95 % | |SV MOD A2C: 94.59 ml | |LVEF MOD A4C: 60.13 % | |SV MOD A4C: 93.22 ml | |EF Biplane: 62.82 % | |LVEDV MOD BP: 152.53 ml | |LVESV MOD BP: 56.69 ml | |LVEDV MOD A2C: 145.63 ml | |LVLd A2C: 9.24 cm | |LVEDV MOD A4C: 155.02 ml | |LVLd A4C: 9.59 cm | |LVESV MOD A2C: 51.03 ml | |LVLs A2C: 8.05 cm | |LVESV MOD A4C: 61.79 ml | |LVLs A4C: 7.86 cm | |LAESV(A-L): 80.25 ml | |LAESV Index (A-L): 39.15 ml/m2 | |LAAs A2C: 22.22 cm2 | |LAESV A-L A2C: 83.08 ml | |LALs A2C: 5.04 cm | |LAAs A4C: 21.47 cm2 | |LAESV A-L A4C: 76.98 ml | |LALs A4C: 5.08 cm | |RAAs: 15.53 cm2 | |RAESV A-L: 43.40 ml | |RAESV MOD: 39.16 ml | |RALs: 4.77 cm | |TAPSE: 2.81 cm | |AV maxP.60 mmHg | |AV meanP.97 mmHg | |AV Vmax: 2.66 m/s | |AV Vmean: 1.72 m/s | |AV VTI: 48.67 cm | |ZEKE Vmax: 1.81 cm2 | |ZEKE (VTI): 1.96 cm2 | |AVAI Vmax: 0.00 cm2/m2 | |AVAI (VTI): 0.00 cm2/m2 | |LVOT maxP.70 mmHg | |LVOT meanP.25 mmHg | |LVSI Dopp: 46.75 ml/m2 | |LVSV Dopp: 95.84 ml | |LVOT Vmax: 1.19 m/s | |LVOT Vmean: 0.84 m/s | |LVOT VTI: 23.62 cm | |MV A Doe: 0.88 m/s | |MV DecT: 232.07 ms | |MV E Doe: 0.65 m/s | |MV E/A Ratio: 0.73 | |MV PHT: 67.30 ms | |MVA By PHT: 3.26 cm2 | |Septal e': 0.04 m/s | |Septal E/e': 14.23 | |Lateral e': 0.08 m/s | |Lateral E/e': 7.67 | |RAP: 5 mmHg | |RVSP: 25.42 mmHg | |TR maxP.42 mmHg | |TR Vmax: 2.25 m/s | | | |Rubber And Pounder: | |Authenticated by: Star Priest | |Report Date/Time: 08-06-2016 19:12:14 | | | |IMPRESSION: | |1. Overall left ventricular systolic function is normal with, an EF between 60 - 65 %. | |2. The diastolic filling pattern indicates impaired relaxation consistent with mild dysfunc tion (Grade I). | |3. The right ventricle is normal in size and function. | |4. Normally functioning bioprosthetic aortic valve. | + + documented in this encounter Visit Diagnoses Not on filedocumented in this encounter"
--- OUTSIDE RECORDS SUMMARY | ~2019-12-23 | XMS | Clinical Summary ---
Demographics + + + | Address | [address] | | | [place] [address] | + + + | Home Phone [...] Team Providers + +------+ + | Care Youth Associate Name | Role | Phone | + +------+ + | Star Doll MD | PCP | | + +------+ + Source Comments SY is fully live on both [facility] Ambulatory and [facility] InPatient.[facility] Allergies Not on File Medications Not on [...]
--- OUTSIDE RECORDS SUMMARY | ~2019-12-23 | XMS | Encounter Summary ---
Demographics + + + | Address | [address] | | | [place] [address] | + + + | Home Phone | | + + + | Preferred Language | Unknown | + + + | Marital Status | | + + + | Spiritism Affiliation | Unknown | + + + [...] [address] | | | | | [facility] | | | | | [address] | | + + + + + | Parth Vital | ECON | Unknown | | + + + + + Care Team Providers + +------+ + | Care Metallurgical Specialist Name | Role | Phone | + +------+ + | Star Doll MD | PCP | | + +------+ + Reason for Referral Diagnostic/Screening (Routine) +--------+--------+ + + + + [...] | | | | Hypertension | [place] [address] | [address] | | | | | SOB | [address] | [place] | | | | | (shortness | [address] | [address] | | | | | of breath) | [place] | Phone: | | | | | Procedures | [address] | [phone] | | | | | [place] | Phone: | Fax: | | | | | Myocardial | [phone] | [phone] | | | | | Perfusion | Fax: | | | | | | Mult SPECT | [phone] | | +--------+--------+ + + + + Diagnostic/Screening (Routine) +--------+--------+ + + + + | Status | Reason | Specialty | Diagnoses / | Referred By | Referred To | | | | | Procedures | Contact | Contact | +--------+--------+ + + + + | Closed | | Radiology | Diagnoses | [place], | [place] [facility] | | | | | | Wendy L, | [address] | | | | | Hypertension | [place] [address] | [place] | | | | | Procedures | [address] | [address] | | | | | ECHO | [address] | Phone: | | | | | Complete | [place] | [phone] | | | | | | [id number] | Fax: | | | | | | Phone: | [phone] | | | | | | [phone] | | | | | | | Fax: | | | | | | | [phone] | | +--------+--------+ + + + + Reason for Visit Evaluate & Treat (Routine) +--------+--------+ + + + + | Status | Reason | Specialty | Diagnoses / | Referred By | Referred To | | | | | Procedures | Contact | Contact | +--------+--------+ + + + + | Closed | | Cardiology | Diagnoses | Mar[place], | [facility] | | | | | Type II or | Star Fisher, | [place] | | | | | unspecified | [place] [address] | | | | | type | [place] | [facility] | | | | | diabetes | [address] | | | | | mellitus | [place], | [place], [place] | | | | | without | [place] | [address] | | | | | mention of | [address] | Phone: | | | | | complication | Phone: | [phone] | | | | | , not stated | [phone] | Fax: | | | | | as | Fax: | [phone] | | | | | uncontrolled | [phone] | | | | | | Type II or | | | | | | | unspecified | | | | | | | type | | | | | | | diabetes | | | | | | | mellitus | | | | | | | with other | | | | | | | specified | | | | | | | manifestatio | | | | | | | ns, | | | | | | | uncontrolled | | | | | | | | | | | | | | Unspecified | | | | | | | essential | | | | | | | hypertension | | | | | | | Procedures | | | | | | | | | | | | | | consultation | | | +--------+--------+ + + + + Encounter Details +--------+---------+ + + + | Date | Type | Department | Care Team | Description | +--------+---------+ + + + | 03/01/ | Office | [facility] | Wendy Shelby | Hypertension | | 2012 | Visit | Group Cardiology | [place] [address] | (Primary Dx); SOB | | | | [address] | [address] | (shortness of | | | | [address] [place], | [place] [address] | breath); CVA | | | | [place] [address] | [phone] | (cerebral | | | | [phone] | | infarction) ([facility]); | | | | | | Diabetes type 2 with | | | | | | atherosclerosis of | | | | | | arteries of | | | | | | extremities ([facility]) | +--------+---------+ + + + Social History [...] + + + | Blood Pressure | 137/65 | 03/01/2013 11:01 AM | | | | | PDT | | + + + + + | Pulse | 62 | 03/01/2013 11:01 AM | | | | | PDT | | + + + + + | Temperature | - | - | | + + + + + | Respiratory Rate | - | - | | + + + + + | Oxygen Saturation | 98% | 03/01/2013 11:01 AM | | | | | PDT | | + + + + + | Inhaled Oxygen | - | - | | | Concentration | | | | + + + + + | Weight | 102.1 kg (225 lb) | 03/01/2013 11:01 AM | | | | | PDT | | + + + + + | Height | 175.3 cm (5' 9") | 03/01/2013 11:01 AM | | | | | PDT | | + + + + + | Body Mass Index | 33.23 | 03/01/2013 11:01 AM | | | | | PDT | | + + + + + documented in this encounter H&P Wendy Camara MD - 03/01/2013 11:21 AM PDT PCP : Star Doll Reason for Consult : SOB HPI Duane Vital is a 67 y.o. year old male. Known DM2, HTN, hyperlipidemia, CVA - L cheryle paresis 5 years ago presents for exertional SOB. Known YISEL on CPAP. SOB and has to stop afte r walking 1-1.5 blocks. Denies chest pain/ pressure. No orthopnea or PND. SOB resolves withi n 2-3 minutes and can restart walking. No palpitations or dizziness or LOC. No cough/ sputum Prior cardiac hx/ work up - None Pain, ache/cramping, in buttock/ thigh/ leg with exercise - none. 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 Medication History has a current medication list which includes the following prescription(s): amlodipine, vit reed c, aspirin, carvedilol, vitamin d3, clonidine, clopidogrel, fenofibrate, ferrous glucon ate, furosemide, insulin lispro protamine-insulin lispro 75/25, lisinopril, niacin, simvasta tin, sitagliptin, terazosin, and UNCODED MEDICATION. Social History Tobacco - never smoked Alcohol - Occasional Denies use of any illicit drugs Family History Reviewed on file Review of Systems Comprehensive ROS negative but for symptoms listed above On Examination BP 137/65 | Pulse 62 | Ht 1.753 m (5' 9") | Wt 102.059 kg (225 lb) | BMI 33.23 kg/m2 | SpO2 98% General : Comfortable; well built HEENT : Oropharynx clear and moist; R & L external ear normal Eyes : Conjunctiva normal; MAXWELL; EOM - normal Neck : Supple; no thyromegaly; no cervical lymphadenopathy Cardiac : JVP not elevated Apical Impulse - L 5th ICS in mid clavicular line No palpable heart sounds or thrills S1 S2 heard, normal intensity; No S3 or S4 No murmurs or rub Pulmonary : Normal respiratory effort; breath sounds normal; no rales or wheeze GI : Abdomen soft and non distended; no tenderness; no organomegaly, normal bowel sounds HAUNTED HISTORY TOUR GUIDE : Alert and oriented X 3; speech - normal; no focal neurological deficit Skin : No erythema; no rash Musculoskeletal : Normal range of movements; no tenderness Psychiatry : Normal mood and behaviour Labs Labs reviewed in [facility] No results found for this basename: CREATININE, CREA, LABCREA No results found for this basename: WBC, HGB, HCT, MCV, LABPLAT EKG - SR, Rate - 74/min, normal axis, no ST-T changes, chamber enlargement/hypertrophy - no ne Assessment & Plan 1. SOB - Get TTE to assess for structural heart disease - Persantine stress MPI to evaluate for ischemia and risk stratification. Pt cannot exercis e and hence planned for pharmacological stress test 2. HTN - Well controlled - Continue current meds 3. Hyperlipidemia - Continue Zocor, Niacin and Tricor - Check fasting lipids at time of next visit I would like to thank Dr Star Doll for letting us participate in the care of Duran Vital. Please feel free to contact me if any questions or concerns. RTC - 3 months Wendy Shelby MD, MRCP, General acute hospital - Cardiology 03/01/2013 documented in thi s encounter Plan of [...] | + +--------+ + + + | DC | Routin | 03/01/2013 | Hypertension | Results for this | | ELECTROCARDIOGRAM, | e | 11:11 AM | | procedure are in the | | COMPLETE | | PDT | | results section. | + +--------+ + + + documented in this encounter Results NM Myocardial Perfusion Mult SPECT (03/08/2013 12:10 PM PDT) + + | Specimen | + + | | + + + + + | Narrative | Performed At | + + + | STRESS/REST MYOCARDIAL PHARMACOLOGICAL PERFUSION TOMOGRAPHY AND | | | GATED STRESS LEFT VENTRICULOGRAPHY DATE OF STUDY: 03/08/2013 | | | INDICATION: Chest Pain. ORDERING PHYSICIAN: Star Doll | | | PRIMARY CARE PROVIDER: Star BETANCOURT STRESS | | | PROTOCOL AND FINDINGS Please see MIKKI Torres separate report | | | for details. Briefly, baseline ECG was NSR. The patient had a | | | pharmacological blood pressure and heart rate response. Transient | | | complete AV Block that resolved after aminophylline injection. The | | | EKG portion of test was negative for ischemia. SCAN | | | INTERPRETATION Myocardial stress/rest SPECT perfusion tomography: | | | There is homogeneous uptake of the radioisotope throughout the | | | heart without defect. Gated SPECT left ventriculography: The | | | left ventricle measures 132 mL at end diastole. Global left | | | ventricle contraction is normal with calculated ejection fraction of | | | 62%. Regional myocardial contraction and segmental myocardial | | | thickening are normal. FINAL IMPRESSION DISCUSSION: 1. Normal | | | myocardial pharmacological SPECT perfusion tomography without | | | evidence for myocardial ischemia or infarction. 2. Normal gated SPECT | | | left ventriculography, ejection fraction 62 percent. Kane Holden | | | MD Torres DATE/TIME: 03/08/2013 12:35 | | + + + ECHO Complete (03/04/2013 10:54 AM PDT) + + | Specimen | + + | | + + + + + | Narrative | Performed At | + + + | Transthoracic Echocardiography Report (TTE) Demographics Patient | [facility] | | Name CORRY REED Gender Male | LAB | | LACLEDE Patient Number [id number] Room | | | Number Accession Number [id number] Date of Study | | | 03/04/2013 Date of 1945 Ordering | | | [place] [place] | | | Physician Age: 67 year(s) | | | [employer]pper Estuardo Benites [facility] Physician | | | Interpreting 1 [facility] | | | Senior Caregiver Physician | | | Group | | | See Villareal MD Nurse Practitioner Procedure | | | Type of Study TTE procedure:ECHO Complete. Procedure Date Date: | | | 03/04/2013 Start: 09:21 AM Study Location: Outpatient Technical | | | Quality: Adequate visualization Indications:Dyspnea/SOB. Patient | | | Status: Routine Height: 69 inches Weight: 225 pounds BSA: 2.17 m^2 | | | BMI: 33.23 kg/m^2 Rhythm: Within normal limits HR: 68 bpm | | | Conclusions Summary Left ventricle size is normal per BSA Normal | | | left ventricular wall thickness. Ejection fraction is visually | | | estimated at 60-65%. No regional wall motion abnormalities seen. | | | Pseudonormal filling pattern noted (Stage II). Structurally normal | | | mitral valve. Calcification of the mitral valve noted. Trace | | | mitral regurgitation is present. Tricuspid aortic valve. Moderate | | | aortic valve sclerosis. Moderately dilated left atrium. Dilated | | | left atrium with a volume of 49 mL Right heart pressures could not | | | be evaluated Signature | | | | | | | | | | | | Contractility Score LV regional wall motion:(0-Non visualized | | | 1-Normal 1'-Hyperkinesis 2-Hypokinesis 3-Akinesis 4-Dyskinesis | | | 5-Aneurysm) Findings Left Ventricle Left ventricle size is | | | normal per BSA Normal left ventricular wall thickness. Ejection | | | fraction is visually estimated at 60-65%. No regional wall motion | | | abnormalities seen. Pseudonormal filling pattern noted (Stage II). | | | Right Ventricle Normal right ventricular size and function. Left | | | Atrium Moderately dilated left atrium. Dilated left atrium with a | | | volume of 49 mL Right Atrium Right atrial size is normal. Mitral | | | Valve Structurally normal mitral valve. Calcification of the | | | mitral valve noted. Trace mitral regurgitation is present. Aortic | | | Valve Tricuspid aortic valve. Moderate aortic valve sclerosis. | | | Aorta/Pulmonary The aorta is within normal limits. The pulmonary | | | artery was not clearly visualized. Pulmonary veins not visualized. | | | Normal IVC. Estimated right atrial pressure is 3 mmHg . Tricuspid | | | Valve Tricuspid valve is structurally normal. Trace tricuspid | | | regurgitation. Right heart pressures could not be evaluated due to | | | inadequate tricuspid regurgitation. Pulmonic Valve The pulmonic | | | valve was not well visualized Pericardial Effusion No evidence of | | | any pericardial effusion. Pleural Effusion No evidence of pleural | | | effusion. M-Mode/2D Measurements & Calculations LV Diastolic | | | LV Systolic Dimension: 3.9 AV Cusp Separation: 1.5 cmAO | | | Dimension: 5.8 cm Root | | | Dimension: 3.1 cmLA Area: cm LV Volume | | | Diastolic: 104 ml 30.6 cm^2 LV FS:32.8 % LV Volume Systolic: 36 | | | ml LV PW LV EDV/LV EDV Index: 104 Diastolic: 0.9 | | | ml/48 m^2LV ESV/LV ESV cm Index: 36 ml/17 m^2 | | | Septum EF Calculated: 65.4 % LA/Aorta: 1.32 | | | Diastolic: 1 cm EF Estimated: 60 % Ascending Aorta: 3.1 | | | cm CO: 8.73 l/min LV Length: 9.04 cm LA | | | volume/Index: 111 ml /51m^2 CI: 4.02 l/m*m^2 LVOT: 2.3 | | | cm LV Area Diastolic: 33.5 cm^2 LV Area Systolic: 17.2 | | | cm^2 Doppler Measurements & Calculations MV Peak E-Wave: 102 cm/s | | | LVOT Mean Velocity: 88.7 MV | | | Peak A-Wave: 58.5 AV Mean Velocity: 176.67 cm/s cm/s | | | cm/s LVOT Mean | | | Gradient: 4 MV E/A Ratio: ` AV Mean Gradient: 16 | | | mmHg MV Peak Gradient: 4.16 mmHg mmHg | | | AV Area | | | (Continuity):2.08 cm^2 MV Deceleration Time: | | | TR Velocity:141 cm/s 173 msec | | | TR Gradient:7.95 mmHg | | | | | | PV Peak Velocity: 103 | | | LVOT VTI: 30.9 cm cm/s MV E' Septal Velocity: | | | PV Peak Gradient: 4.24 19.1 cm/s | | | mmHg | | + + + + + | Procedure Note | + + | Ramiro, Rad Results In - 03/04/2013 10:53 AM PDT Transthoracic Echocardiography Report | | (TTE) Demographics Patient Name CORRY REED Gender Male | | SUNIL Patient Number [id number] Room Number Accession Number [id number] | | Date of Study 03/04/2013 Date of 1945 Ordering | | [place] Physician Age: 67 | | year(s) [employer]pper Estuardo Benites [facility] Physician | | Interpreting 1 Alonso [facility] [employer] Instrument Repairer Physician | | Group See Villareal MD Nurse | | PractitionerProcedureType of Study TTE procedure:ECHO Complete.Procedure DateDate: | | 03/04/2013 Start: 09:21 AMStudy Location: OutpatientTechnical Quality: Adequate | | visualizationIndications:Dyspnea/SOB.Patient Status: RoutineHeight: 69 inches Weight: | | 225 pounds BSA: 2.17 m^2 BMI: 33.23 kg/m^2Rhythm: Within normal limits HR: 68 bpm | | Conclusions Summary Left ventricle size is normal per BSA Normal left ventricular wall | | thickness. Ejection fraction is visually estimated at 60-65%. No regional wall motion | | abnormalities seen. Pseudonormal filling pattern noted (Stage II). Structurally normal | | mitral valve. Calcification of the mitral valve noted. Trace mitral regurgitation is | | present. Tricuspid aortic valve. Moderate aortic valve sclerosis. Moderately dilated | | left atrium. Dilated left atrium with a volume of 49 mL Right heart pressures could not | | be evaluated Signature | | at | | 10:52 AM Contractility | | Score LV regional wall motion:(0-Non visualized 1-Normal 1'-Hyperkinesis 2-Hypokinesis | | 3-Akinesis 4-Dyskinesis 5-Aneurysm) Findings Left Ventricle Left ventricle size is | | normal per BSA Normal left ventricular wall thickness. Ejection fraction is visually | | estimated at 60-65%. No regional wall motion abnormalities seen. Pseudonormal filling | | pattern noted (Stage II). Right Ventricle Normal right ventricular size and function. | | Left Atrium Moderately dilated left atrium. Dilated left atrium with a volume of 49 mL | | Right Atrium Right atrial size is normal. Mitral Valve Structurally normal mitral valve. | | Calcification of the mitral valve noted. Trace mitral regurgitation is present. Aortic | | Valve Tricuspid aortic valve. Moderate aortic valve sclerosis. Aorta/Pulmonary The aorta | | is within normal limits. The pulmonary artery was not clearly visualized. Pulmonary | | veins not visualized. Normal IVC. Estimated right atrial pressure is 3 mmHg . Tricuspid | | Valve Tricuspid valve is structurally normal. Trace tricuspid regurgitation. Right heart | | pressures could not be evaluated due to inadequate tricuspid regurgitation. Pulmonic | | Valve The pulmonic valve was not well visualized Pericardial Effusion No evidence of any | | pericardial effusion. Pleural Effusion No evidence of pleural effusion.M-Mode/2D | | Measurements & Calculations LV Diastolic LV Systolic Dimension: 3.9 AV Cusp | | Separation: 1.5 cmAO Dimension: 5.8 cm Root Dimension: 3.1 | | cmLA Area: cm LV Volume Diastolic: 104 ml 30.6 cm^2 LV FS:32.8 % LV | | Volume Systolic: 36 ml LV PW LV EDV/LV EDV Index: 104 Diastolic: 0.9 ml/48 | | m^2LV ESV/LV ESV cm Index: 36 ml/17 m^2 Septum EF Calculated: 65.4 | | % LA/Aorta: 1.32 Diastolic: 1 cm EF Estimated: 60 % Ascending Aorta: 3.1 | | cm CO: 8.73 l/min LV Length: 9.04 cm LA volume/Index: 111 ml /51m^2 CI: 4.02 | | l/m*m^2 LVOT: 2.3 cm LV Area Diastolic: 33.5 cm^2 LV Area Systolic: 17.2 | | cm^2Doppler Measurements & Calculations MV Peak E-Wave: 102 cm/s | | LVOT Mean Velocity: 88.7 MV Peak A-Wave: 58.5 AV Mean Velocity: 176.67 cm/s cm/s | | cm/s LVOT Mean Gradient: 4 MV E/A Ratio: ` | | AV Mean Gradient: 16 mmHg MV Peak Gradient: 4.16 mmHg mmHg | | AV Area (Continuity):2.08 cm^2 MV Deceleration Time: | | TR Velocity:141 cm/s 173 msec | | TR Gradient:7.95 mmHg PV Peak | | Velocity: 103 LVOT VTI: 30.9 cm cm/s MV E' Septal | | Velocity: PV Peak Gradient: 4.24 19.1 cm/s | | mmHg | | Pseudonormal filling pattern noted (Stage II). | | Right Ventricle | | Normal right ventricular size and function. | | Left Atrium | | Moderately dilated left atrium. | | Dilated left atrium with a volume of 49 mL | | Right Atrium | | Right atrial size is normal. | | Mitral Valve | | Structurally normal mitral valve. | | Calcification of the mitral valve noted. | | Trace mitral regurgitation is present. | | Aortic Valve | | Tricuspid aortic valve. | | Moderate aortic valve sclerosis. | | Aorta/Pulmonary | | The aorta is within normal limits. | | The pulmonary artery was not clearly visualized. | | Pulmonary veins not visualized. | | Normal IVC. | | Estimated right atrial pressure is 3 mmHg . | | Tricuspid Valve | | Tricuspid valve is structurally normal. | | Trace tricuspid regurgitation. | | Right heart pressures could not be evaluated due to inadequate tricuspid | | regurgitation. | | Pulmonic Valve | | The pulmonic valve was not well visualized | | Pericardial Effusion | | No evidence of any pericardial effusion. | | Pleural Effusion | | No evidence of pleural effusion. | |M-Mode/2D Measurements & Calculations | | LV Diastolic LV Systolic Dimension: 3.9 AV Cusp Separation: 1.5 cmAO | | Dimension: 5.8 cm Root Dimension: 3.1 cmLA Area: | | cm LV Volume Diastolic: 104 ml 30.6 cm^2 | | LV FS:32.8 % LV Volume Systolic: 36 ml | | LV PW LV EDV/LV EDV Index: 104 | | Diastolic: 0.9 ml/48 m^2LV ESV/LV ESV | | cm Index: 36 ml/17 m^2 | | Septum EF Calculated: 65.4 % LA/Aorta: 1.32 | | Diastolic: 1 cm EF Estimated: 60 % Ascending Aorta: 3.1 cm | | CO: 8.73 l/min LV Length: 9.04 cm LA volume/Index: 111 ml /51m^2 | | CI: 4.02 | | l/m*m^2 LVOT: 2.3 cm | | LV Area | | Diastolic: 33.5 | | cm^2 | | LV Area | | Systolic: 17.2 | | cm^2 | |Doppler Measurements & Calculations | | MV Peak E-Wave: 102 cm/s LVOT Mean Velocity: 88.7 | | MV Peak A-Wave: 58.5 AV Mean Velocity: 176.67 cm/s | | cm/s cm/s LVOT Mean Gradient: 4 | | MV E/A Ratio: ` AV Mean Gradient: 16 mmHg | | MV Peak Gradient: 4.16 mmHg | | mmHg AV Area | | (Continuity):2.08 cm^2 | | MV Deceleration Time: TR Velocity:141 cm/s | | 173 msec TR Gradient:7.95 mmHg | | PV Peak Velocity: 103 | | LVOT VTI: 30.9 cm cm/s | | MV E' Septal Velocity: PV Peak Gradient: 4.24 | | 19.1 cm/s mmHg | + + + +---------+ + + | Performing | Address | City/State/Zipcode | Phone Number | | Organization | | | | + +---------+ + + | [facility] | | | [phone] | + +---------+ + + | [facility] | | | [phone] | + +---------+ + + TSH, Reflex Free T4 (03/01/2013 11:52 AM [...] + + | [place] | [address] [facility] | [place] [address] | [phone] | | [facility] ([facility]) | | | | + + + + + LIBIA JOHNSON (03/01/2013 11:11 AM PDT) + + + | Narrative | Performed At | + + + | | | + + + documented in this encounter Visit Diagnoses + + | Diagnosis | + + | Hypertension - Primary Unspecified essential hypertension | + + | SOB (shortness of breath) Shortness of breath | + + | CVA (cerebral infarction) Unspecified cerebral artery occlusion with cerebral | | infarction | + + | Diabetes type 2 with atherosclerosis of arteries of extremities (HCC) Type II or | | unspecified type diabetes mellitus with peripheral circulatory disorders, not stated as | | uncontrolled | + + documented in this encounter
--- OUTSIDE RECORDS SUMMARY | ~2019-12-23 | XMS | Encounter Summary ---
Demographics + + + | Address | [address] | | | [place] [address] | + + + | Home Phone [...] [address] | | | | | [address] | | + + + + + | Parth Vital | ECON | Unknown | | + + + + + Care Team Providers + +------+ + | Care Diesel Electrician Name | Role | Phone | + +------+ + | Star Doll MD | PCP | | + +------+ + Encounter Details +--------+ + + + + | Date | Type | Department | Care Team | Description | +--------+ + + + + | 01/28/ | Orders Only | [facility] | Aki Germain | | | 2016 | | CONVERSION 888 | MD [address] | | | | | [address] | Christoph Knutson | | | | | [place], [place] | [place] [address] | | | | | [address] | [phone] | | | | | [phone] | | | +--------+ + + + [...] + | ECHO INTERPRETATION | Routin | 01/29/2016 | | Results for this | | OF OUTSIDE FILMS | e | 2:45 PM | | procedure are in the | | | | PDT | | results section. | + +--------+ + + + documented in this encounter Results ECHO Interpretation of Outside Films (01/29/2016 2:45 PM PDT) + + | Specimen | + + | | + + + + + | Impressions | Performed At | + + + | 1. See Dictation. Sinus. 2. Degenerative Valvular Heart Disease. | | | Severe calcific (calc ZEKE 0.9cm2, peak/mean gradients 63/40mmhg). | | | Mitral valve grossly NML, mild MAC, trace MR. Tricuspid and | | | Pulmonic valves grossly NML, trace TR, trace PI. 3. Mild concentric | | | LVH, systolic function NML, Grade 1 diastolic abnormality, biplane | | | LVEF 64%. Moderate LAE, mild ROBERTO. RV NML. 4. No Pericardial | | | effusion. 5. IVC appears NML, est systolic PAP 24-29mmHg. | | + + + + + + | Narrative | Performed At | + + + | Patient Name: DUANE VITAL Date of : 1945 | | | Performing Physician: Aki Germain DO | | | | | | INDICATIONS Aortic stenosis CONCLUSIONS | | | 1. See Dictation. Sinus. 2. Degenerative Valvular Heart Disease. | | | Severe calcific (calc ZEKE 0.9cm2, peak/mean gradients 63/40mmhg). | | | Mitral valve grossly NML, mild MAC, trace MR. Tricuspid and | | | Pulmonic valves grossly NML, trace TR, trace PI. 3. Mild concentric | | | LVH, systolic function NML, Grade 1 diastolic abnormality, biplane | | | LVEF 64%. Moderate LAE, mild ROBERTO. RV NML. 4. No Pericardial | | | effusion. 5. IVC appears NML, est systolic PAP 24-29mmHg. FINDINGS | | | -------- ECG rhythm: Sinus rhythm. Study: This was a technically | | | adequate study. Left Ventricle: Overall left ventricular systolic | | | function is normal with, an EF between 60 - 65 %. Left Ventricle: The | | | left ventricle cavity size is normal. Left Ventricle: There is mild | | | concentric left ventricular hypertrophy. Left Ventricle: The | | | diastolic filling pattern indicates impaired relaxation consistent | | | with mild dysfunction (Grade I). Right Ventricle: The right ventricle | | | is normal in size. Right Ventricle: The right ventricular systolic | | | function is normal. Left Atrium: The left atrium is moderately | | | dilated. Right Atrium: The right atrium is mildly enlarged. Aortic | | | Valve: The aortic valve is severely calcified. Aortic Valve: Severe | | | aortic stenosis with peak/mean pressure gradient of {AV maxPG} / {AV | | | meanPG}, the aortic valve area by continuity equation is {ZEKE}. | | | Mitral Valve: The mitral valve is normal. Mitral Valve: There is | | | trace mitral regurgitation. Mitral Valve: Mild mitral annular | | | calcification present. Tricuspid Valve: The tricuspid valve appears | | | structurally normal. Tricuspid Valve: Trace tricuspid regurgitation | | | present. Pulmonic Valve: Pulmonic valve appears structurally normal. | | | Pulmonic Valve: Trace pulmonic regurgitation. Pericardium: There | | | is no pericardial effusion. IVC/Hepatic Veins: The IVC is normal size | | | (1.5-2.5cm) and collapses >50% with sniff, consistent with central | | | venous pressures of 5-10mmHg. MEASUREMENTS | | | Blueprinting And Photocopy Supervisor: LYLY Authenticated by: Aki Germain DO Report | | | Date/Time: 01-29-2016 23:26:29 | | + + + + + | Procedure Note | + + | Ramiro, Rad Conversion - 01/28/2019 9:24 PM PDT Patient Name: Neal VITAL | | of : 1945 Performing Physician: Aki Germain | | DO INDICATIONS A | | ortic stenosis CONCLUSIONS 1. See Dictation. Sinus.2. Degenerative Valvular | | Heart Disease. Severe calcific (calc ZEKE 0.9cm2, peak/mean gradients 63/40mmhg). | | Mitral valve grossly NML, mild MAC, trace MR. Tricuspid and Pulmonic valves grossly | | NML, trace TR, trace PI. 3. Mild concentric LVH, systolic function NML, Grade 1 | | diastolic abnormality, biplane LVEF 64%. Moderate LAE, mild ROBERTO. RV NML. 4. No | | Pericardial effusion. 5. IVC appears NML, est systolic PAP 24-29mmHg. | | FINDINGS--------ECG rhythm: Sinus rhythm.Study: This was a technically adequate | | study.Left Ventricle: Overall left ventricular systolic function is normal with, an EF | | between 60 - 65 %.Left Ventricle: The left ventricle cavity size is normal.Left | | Ventricle: There is mild concentric left ventricular hypertrophy.Left Ventricle: The | | diastolic filling pattern indicates impaired relaxation consistent with mild dysfunction | | (Grade I).Right Ventricle: The right ventricle is normal in size.Right Ventricle: The | | right ventricular systolic function is normal.Left Atrium: The left atrium is moderately | | dilated.Right Atrium: The right atrium is mildly enlarged.Aortic Valve: The aortic | | valve is severely calcified.Aortic Valve: Severe aortic stenosis with peak/mean pressure | | gradient of {AV maxPG} / {AV meanPG}, the aortic valve area by continuity equation is | | {ZEKE}.Mitral Valve: The mitral valve is normal.Mitral Valve: There is trace mitral | | regurgitation.Mitral Valve: Mild mitral annular calcification present.Tricuspid Valve: | | The tricuspid valve appears structurally normal.Tricuspid Valve: Trace tricuspid | | regurgitation present.Pulmonic Valve: Pulmonic valve appears structurally | | normal.Pulmonic Valve: Trace pulmonic regurgitation.Pericardium: There is no | | pericardial effusion.IVC/Hepatic Veins: The IVC is normal size (1.5-2.5cm) and collapses | | >50% with sniff, consistent with central venous pressures of 5-10mmHg. | | MEASUREMENTS Blueprinting And Photocopy Supervisor: DHAuthenticated by: Aki Jacinto | | Date/Time: 01-29-2016 23:26:29 IMPRESSION: 1. See Dictation. Sinus.2. Degenerative | | Valvular Heart Disease. Severe calcific (calc ZEKE 0.9cm2, peak/mean gradients | | 63/40mmhg). Mitral valve grossly NML, mild MAC, trace MR. Tricuspid and Pulmonic | | valves grossly NML, trace TR, trace PI. 3. Mild concentric LVH, systolic function NML, | | Grade 1 diastolic abnormality, biplane LVEF 64%. Moderate LAE, mild ROBERTO. RV NML. 4. No | | Pericardial effusion. 5. IVC appears NML, est systolic PAP 24-29mmHg. | |Mitral Valve: The mitral valve is normal. | |Mitral Valve: There is trace mitral regurgitation. | |Mitral Valve: Mild mitral annular calcification present. | |Tricuspid Valve: The tricuspid valve appears structurally normal. | |Tricuspid Valve: Trace tricuspid regurgitation present. | |Pulmonic Valve: Pulmonic valve appears structurally normal. | |Pulmonic Valve: Trace pulmonic regurgitation. | |Pericardium: There is no pericardial effusion. | |IVC/Hepatic Veins: The IVC is normal size (1.5-2.5cm) and collapses >50% with sniff, consis tent with central venous pressures of 5-10mmHg. | | | |MEASUREMENTS | | | | | |Blueprinting And Photocopy Supervisor: LYLY | |Authenticated by: Aki Germain DO | |Report Date/Time: 01-29-2016 23:26:29 | | | |IMPRESSION: | |1. See Dictation. Sinus. | |2. Degenerative Valvular Heart Disease. Severe calcific (calc ZEKE 0.9cm2, peak/mean gra dients 63/40mmhg). Mitral valve grossly NML, mild MAC, trace MR. Tricuspid and Pulmonic va lves grossly NML, trace TR, trace | |PI. 3. Mild concentric LVH, systolic | |function NML, Grade 1 diastolic abnormality, biplane LVEF 64%. Moderate LAE, mild ROBERTO. RV NML. 4. No Pericardial effusion. 5. IVC appears NML, est systolic PAP 24-29mmHg. | + + documented in this encounter Visit Diagnoses Not on filedocumented in this encounter"
--- OUTSIDE RECORDS SUMMARY | ~2019-12-23 | XMS | Encounter Summary ---
Demographics + + + | Address | [address] | | | [place] [address] | + + + | Home Phone | | + + + | Preferred Language | Unknown | + + + | Marital Status | | + + + | Protestant Affiliation | Unknown | + + + | Race | Unknown | + + + | Ethnic Group | Unknown | + + + Author + + + | Author | [facility] | | | and [place] | + + + | Organization | [facility] | | [...] [address] | | | | | [address] | | + + + + + | Parth Vital | ECON | Unknown | | + + + + + Care Team Providers + +------+ + | Care Class 1 Owner Operator Name | Role | Phone | + +------+ + | Star Doll MD | PCP | | + +------+ + Encounter Details +--------+ + + + + | Date | Type | Department | Care Team | Description | +--------+ + + + + | 10/15/ | Orders Only | [facility] | Conversion | | | 2016 | | NEPHROLOGY [place] | Transaction, | | | | | [address] | Provider Unknown | | | | | [address] [place] | | | | | | [address] | (Fax) | | | | | [phone] | | | +--------+ + + + [...] + + | HEMOGLOBIN | Routin | 10/16/2015 | | Results for this | | | e | 10:24 AM | | procedure are in the | | | | PDT | | results section. | + +--------+ + + + | HEMATOCRIT | Routin | 10/16/2015 | | Results [...] + documented in this encounter Results Hemoglobin (10/16/2015 10:24 AM PDT) + + | Specimen | + + | Blood specimen | | (specimen) | + + + + + | Narrative | Performed At | + + + | Hemoglobin 10.3 Range 13.5-18.0 | EXTERNAL LAB | + + + + +---------+ + + | Performing | Address | City/State/Zipcode | Phone Number | | Organization | | | | + +---------+ + + | EXTERNAL LAB | | | | + +---------+ + + Hematocrit (10/16/2015 10:24 AM PDT) + + + + [...] +---------+ + + Renal Function Panel (10/16/2015 10:24 AM PDT) + + + + [...] + + + + | PHOSPHORUS | 5.5 (A) | 2.5 - 5.0 mg/dL | EXTERNAL [...] | | | LAB | | | [facility] | | | | | + + [...]
--- OUTSIDE RECORDS SUMMARY | ~2019-12-23 | XMS | Encounter Summary ---
Demographics + + + | Address | [address] | | | [place] [address] | + + + | Home Phone | | + + + | Preferred Language | Unknown | + + + | Marital Status | | + + + | Buddhist Affiliation | Unknown | + + + | Race | Unknown | + + + | Ethnic Group | Unknown | + + + Author + + + | Author | [facility] | | | and [place] | + + + | Organization | [facility] | | | [...] [address] | | | | | [address] | | + + + + + | Parth Vital | ECON | Unknown | | + + + + + Care Team Providers + +------+ + | Care Quartz Orientator Name | Role | Phone | + +------+ + | Star Doll MD | PCP | | + +------+ + Encounter Details +--------+ + + + + | Date | Type | Department | Care Team | Description | +--------+ + + + + | 09/19/ | Orders Only | [facility] | Jeanmarie Ly MD | | | 2014 | | NEPHROLOGY [place] | [address] [place] | | | | | [address] [place] | [address] [place], [place] | | | | | [address] [facility] [place] | [address] | | | | | [address] | | | | | | [phone] | | | +--------+ + + + [...] | IRON AND IRON | Routin | 09/19/2014 | | Results for this | | BINDING CAPACITY | e | 12:00 AM | | procedure are in the | | | | PDT | | results section. | + +--------+ + + + | URINALYSIS WITH | Routin | 09/19/2014 | | Results for this | | MICROSCOPIC WITH | e | 12:00 AM | | procedure are in the | | CULTURE IF INDICATED | | PDT | | results section. | + +--------+ + + + | CREATININE, URINE, | Routin | 09/19/2014 | | Results for this | | 24HR | e | 12:00 AM | | procedure are in the | | | | PDT | | results section. | + +--------+ + + + | HEMOGLOBIN AND | Routin | 09/19/2014 | | Results for this | | HEMATOCRIT | e | 12:00 AM | | procedure are in the | | | | PDT | | results section. | + +--------+ + + + | PROTEIN/CREATININE | Routin | 09/19/2014 | | Results for this | | RATIO, URINE | e | 12:00 AM | | procedure are in the | | | | PDT | | results section. | + +--------+ + + + | PROTEIN, URINE, | Routin | 09/19/2014 | | Results for this | | RANDOM | e | 12:00 AM | | procedure are in the | | | | PDT | | results section. | + +--------+ + + + | CREATININE, URINE, | Routin | 09/19/2014 | | Results for this | | RANDOM | e | 12:00 AM | | procedure are in the | | | | PDT | | results section. | + +--------+ + + + | URIC ACID | Routin | 09/19/2014 | | Results for this | | | e | 12:00 AM | | procedure are in the | | | | PDT | | results section. | + +--------+ + + + | TRANSFERRIN | Routin | 09/19/2014 | | Results for this | | | e | 12:00 AM | | procedure are in the | | | | PDT | | results section. | + +--------+ + + + | MAGNESIUM | Routin | 09/19/2014 | | Results for this | | | e | 12:00 AM | | procedure are in the | | | | PDT | | results section. | + +--------+ + + + | FERRITIN | Routin | 09/19/2014 | | Results for this | | | e | 12:00 AM | | procedure are in the | | | | PDT | | results section. | + +--------+ + + + | RENAL FUNCTION PANEL | Routin | 09/19/2014 | | Results for this | | | e | 12:00 AM | | procedure are in the | | | | PDT | | results section. | + +--------+ + + + documented in this encounter Results Urinalysis with Microscopic with Culture if Indicated (09/19/2014 12:00 AM PDT) + + + + [...] + + Iron and Iron Binding Capacity (09/19/2014 12:00 AM PDT) + +-------+ + + + | Component | Value | Ref Range | Performed | Pathologist | | | | | At | Signature | + +-------+ + + + | Iron | 71 | 37 - 160 | EXTERNAL | | | | | | LAB | | + +-------+ + + + | Iron | 26.0 | 20 - 55 | EXTERNAL | | | Saturation | | | LAB | | + +-------+ + + + | TIBC | 273 | 245 - 400 | EXTERNAL | [...] + +---------+ + + Creatinine, Urine, 24Hr (09/19/2014 12:00 AM PDT) + + + + + + | Component | Value | Ref Range | Performed | Pathologist | | | | | At | Signature | + + + + + + | CREATININE | 17 (A) | 85 - 125 mL/min | EXTERNAL | | | CLEARANCE | | | LAB | | + + + + + + | Creatinine | 4.47 (A) | 0.5 - 1.5 md/dL | EXTERNAL | | | | | | LAB | | + + + + + + | Creatinine, | 54 | mg/dL | EXTERNAL | | | Urine, | | | LAB | | | Random | | | | | + + + + + + | Creatinine, | 2,400 | ml | EXTERNAL | | | Urine, | [...] + +---------+ + + Hemoglobin and Hematocrit (09/19/2014 12:00 AM PDT) + + + + + + | Component | Value | Ref Range | Performed | Pathologist | | | | | At | Signature | + + + + + + | Hemoglobin | 10.8 (A) | 13.5 - 18.0 | EXTERNAL | | | | | | LAB | | + + + + + + | Hematocrit, | 32.6 (A) | 41 - 50 % | [...] + +---------+ + + Protein/Creatinine Ratio, Urine (09/19/2014 12:00 AM PDT) + + + + + + | Component | Value | Ref Range | Performed | Pathologist | | | | | At | Signature | + + + + + + | Protein/Cre | 4200.0 (A) | 0 - 150 | EXTERNAL [...] + +---------+ + + Protein, Urine, Random (09/19/2014 12:00 AM PDT) + +---------+ + + + | Component | Value | Ref Range | Performed | Pathologist | | | | | At | Signature | + +---------+ + + + | Protein, | 273 (A) | 0.0 - 50.0 | EXTERNAL [...] + +---------+ + + Creatinine, Urine, Random (09/19/2014 12:00 AM PDT) + +-------+ + + + | Component | Value | Ref Range | Performed | Pathologist | | | | | At | Signature | + +-------+ + + + | Creatinine, | 65 | | EXTERNAL | | | 24H [...] | + +---------+ + + Uric Acid (09/19/2014 12:00 AM PDT) + +-------+ + + + | Component | Value | Ref Range | Performed | Pathologist | | | | | At | Signature | + +-------+ + + + | Uric Acid | 5.6 | 4.4 - 7.6 | EXTERNAL | [...] | | + +---------+ + + Transferrin (09/19/2014 12:00 AM PDT) + +-------+ + + + | Component | Value | Ref Range | Performed | Pathologist | | | | | At | Signature | + +-------+ + + + | TRANSFERRIN | 195 | 180 - 329 | EXTERNAL | [...] | | + +---------+ + + Magnesium (09/19/2014 12:00 AM PDT) + +-------+ + + [...] | | + +---------+ + + Ferritin (09/19/2014 12:00 AM PDT) + + + + + + | Component | Value | Ref Range | Performed | Pathologist | | | | | At | Signature | + + + + + + | Ferritin, | 573.9 (A) | 30 - 400 ng/mL | [...] + +---------+ + + Renal Function Panel (09/19/2014 12:00 AM PDT) + + + + + + | Component | Value | Ref Range | Performed | Pathologist | | | | | At | Signature | + + + + + + | Glucose, | 273 (A) | 70 - 100 mg/dL | EXTERNAL | | | Fasting | | | LAB | | + + + + + + | BUN | 57 (A) | 6 - 23 mg/dL | EXTERNAL | | | | | | LAB | | + + + + + + | Creatinine | 4.47 (A) | 0.70 - 1.18 | EXTERNAL [...] + + + + | K | 4.6 | 3.6 - 5.1 | EXTERNAL | [...] + + + | Anion Gap | 16.6 | 7 - 21 mmol/L | EXTERNAL | | | | | | LAB | | + + + + + + | eGFR if not | | | EXTERNAL | | | | | | LAB | | | [facility] | | | | | + + [...]
--- OUTSIDE RECORDS SUMMARY | ~2019-12-23 | XMS | Encounter Summary ---
Demographics + + + | Address | [address] | | | [place] [address] | + + + | Home Phone | | + + + | Preferred Language | Unknown | + + + | Marital Status | | + + + | Adventist Affiliation | Unknown | + + + | Race | Unknown | + + + | Ethnic Group | Unknown | + + + Author + + + | Author | [facility] | | | and [place] | + + + | Organization | [facility] | | | and [place] | + + + | Address | Unknown | + + + | Phone | Unavailable | + + + Support + + + + + | Name | Relationship | Address | Phone | + + + + + | Marcela Jaemsgan | ECON | [address] | | | | | [address] | | | | | [address] | | + + + + + | Parth Vital | ECON | Unknown | | + + + + + Care Team Providers + +------+ + | Care Ornamental Iron Worker Apprentice Name | Role | Phone | + +------+ + | Star Doll MD | PCP | | + +------+ + Encounter Details +--------+ + + + + | Date | Type | Department | Care Team | Description | +--------+ + + + + | 04/19/ | Documentati | [facility] | Jeanmarie Ly MD | | | 2019 | on | NEPHROLOGY [place] | [address] [place] | | | | | [address] | [address] [place], [place] | | | | | [address] [place] [address] | [address] | | | | | [place], [place] | | | | | | [address] | | | | | | [phone] | | | +--------+ + + + [...] + documented as of this encounter Progress Destiny Castellanos V - 04/19/2019 9:15 AM PSTAkoum/Medication Refill Refill request for Minoxidil 2.5 mg 2 tablets every day in the morning for 180 tablets tota l faxed to [facility] , received confirmation fax. documented in this enc ounter Plan of Treatment Not on filedocumented as of this encounter Visit Diagnoses Not on filedocumented in this encounter"
--- OUTSIDE RECORDS SUMMARY | ~2019-12-23 | XMS | Encounter Summary ---
Demographics + + + | Address | [address] | | | [place] [address] | + + + | Home Phone | | + + + | Preferred Language | Unknown | + + + | Marital Status | | + + + | Jew Affiliation | Unknown | + + + | Race | Unknown | + + + | Ethnic Group | Unknown | + + + Author + + + | Author | [facility] | | | and [place] | + + + | Organization | [facility] | | [...] [address] | | | | | [address] | | + + + + + | Parth Vital | ECON | Unknown | | + + + + + Care Team Providers + +------+ + | Care Engineering Technical Analyst Name | Role | Phone | + +------+ + | Star Doll MD | PCP | | + +------+ + Encounter Details +--------+ + + + + | Date | Type | Department | Care Team | Description | +--------+ + + + + | 02/14/ | Orders Only | [facility] | Jeanmarie Ly MD | | | 2014 | | NEPHROLOGY [place] | [address] [place] | | | | | [address] [place] | [address] [place], [place] | | | | | [address] [facility] [place] | [address] | | | | | [address] | | | | | | [phone] | | | +--------+ + + + [...] + | HEMOGLOBIN AND | Routin | 02/14/2015 | | Results for this | | HEMATOCRIT | e | 12:00 AM | | procedure are in the | | | | PDT | | results section. | + +--------+ + + + | RENAL FUNCTION PANEL | Routin | 02/14/2015 | | Results for this | | | e | 12:00 AM | | procedure are in the | | | | PDT | | results section. | + +--------+ + + + documented in this encounter Results Hemoglobin and Hematocrit (02/14/2015 12:00 AM PDT) + + + + [...] + +---------+ + + Renal Function Panel (02/14/2015 12:00 AM PDT) + + + + + + | Component | Value | Ref Range | Performed | Pathologist | | | | | At | Signature | + + + + + + | Glucose, | 193 (A) | 70 - 100 mg/dL | EXTERNAL | | | Fasting | | | LAB | | + + + + + + | BUN | 51 (A) | 6 - 23 mg/dL | EXTERNAL | | | | | | LAB | | + + + + + + | Creatinine | 4.15 (A) | 0.70 - 1.18 | EXTERNAL [...] | | | LAB | | | [facility] | | | | | + + + + + + | Phosphorus, | 4.5 | 2.5 - 5.0 | EXTERNAL | [...]
--- OUTSIDE RECORDS SUMMARY | ~2019-12-23 | XMS | Encounter Summary ---
Demographics + + + | Address | [address] | | | [place] [address] | + + + | Home Phone | | + + + | Preferred Language | Unknown | + + + | Marital Status | | + + + | Jewish Affiliation | Unknown | + + + | Race | Unknown | + + + | Ethnic Group | Unknown | + + + Author + + + | Author | [facility] | | | and [place] | + + + | Organization | [facility] | | [...] [address] | | | | | [address] | | + + + + + | Parth Vital | ECON | Unknown | | + + + + + Care Team Providers + +------+ + | Care Preschool Disability Teacher Name | Role | Phone | + +------+ + | Star Doll MD | PCP | | + +------+ + Encounter Details +--------+ + + + + | Date | Type | Department | Care Team | Description | +--------+ + + + + | 03/03/ | Orders Only | [facility] | Caro Castillo | | | 2018 | | [facility]ARDIOLOGY [facility] | [address] | | | | | [address] | [address] | | | | | [place], [place] | [place] [address] | | | | | [address] | [phone] | | | | | [phone] | | | +--------+ + + + [...] + | LIPID PANEL | Routin | 08/09/2017 | | Results for this | | | e | 10:18 AM | | procedure are in the | | | | PST | | results section. | + +--------+ + + + | COMPREHENSIVE | Routin | 08/09/2017 | | Results for this | | METABOLIC PANEL | e | 10:18 AM | | procedure are in the | | | | PST | | results section. | + +--------+ + + + documented in this encounter Results Lipid Panel (08/09/2017 10:18 AM PST) + +---------+ + + + | Component | Value | Ref Range | Performed | Pathologist | | | | | At | Signature | + +---------+ + + + | Cholesterol | 173 | 200 mg/dL | EXTERNAL | | | | | | LAB | | + +---------+ + + + | Triglycerid | 353 (A) | 30 - 150 mg/dL | EXTERNAL | | | es | | | LAB | | + +---------+ + + + | HDL | 35 (A) | 40 mg/dl | EXTERNAL | | | | | | LAB | | + +---------+ + + + | LDL, | 67 | 100 mg/dL | EXTERNAL | | | Calculated | | | LAB | | + +---------+ + + + | LDl/HDL | | | EXTERNAL | | | Ratio | | | LAB | | + +---------+ + + + | Chol/HDL | 4.9 | 4.97 | EXTERNAL | | | Ratio | | | LAB | | + +---------+ + + + | VLDL | 71 (A) | 4 - 40 mg/dL | EXTERNAL | | | | | | LAB | | + +---------+ + + + | Non HDL | 138 (A) | 130 | EXTERNAL | | | Chol. | | | LAB | | | (LDL+VLDL) | | | | | + +---------+ + + + + + | Specimen | + + | Blood specimen | | (specimen) | + + + +---------+ + + | Performing | Address | City/State/Zipcode | Phone Number | | Organization | | | | + +---------+ + + | EXTERNAL LAB | | | | + +---------+ + + Comprehensive Metabolic Panel (08/09/2017 10:18 AM PST) + + + + + + | Component | Value | Ref Range | Performed | Pathologist | | | | | At | Signature | + + + + + + | Glucose, | 138 (A) | 70 - 100 mg/dL | EXTERNAL | | | Fasting | | | LAB | | + + + + + + | BUN | 16 | 6 - 23 mg/dL | EXTERNAL | | | | | | LAB | | + + + + + + | Creatinine | 4.20 (A) | 0.70 - 1.18 | EXTERNAL | | | | | mg/dL | LAB | | + + + + + + | BUN/Creatin | 3.8 (A) | 6.0 - 28.6 | EXTERNAL | | | ine Ratio | | | LAB | | + + + + + + | Calcium | 10.0 | 8.4 - 10.2 | EXTERNAL | | | | | mg/dL | LAB | | + + + + + + | Protein, | 6.3 | 6.0 - 8.0 g/dL | EXTERNAL | | | Total | | | LAB | | + + + + + + | Albumin | 4.1 | 3.5 - 5.0 | EXTERNAL | | | | | | LAB | | + + + + + + | Globulin | 2.2 | 1.8 - 3.5 | EXTERNAL | | | | | | LAB | | + + + + + + | A/G Ratio | 1.9 | 1.1 - 2.4 | EXTERNAL | | | | | | LAB | | + + + + + + | Bilirubin | 0.5 | 0.0 - 1.2 mg/dL | EXTERNAL | | | Total | | | LAB | | + + + + + + | ALP, | 49 | 31 - 120 | EXTERNAL | | | External | | | LAB | | + + + + + + | ALT | 14 | 7 - 52 U/L | EXTERNAL | | | | | | LAB | | + + + + + + | AST | 18 | 13 - 39 U/L | EXTERNAL [...] + + + + | Cl | 91 (A) | 95 - 112 mmol/L | EXTERNAL | | | | | | LAB | | + + + + + + | CO2 | 36 (A) | 19 - 31 mmol/L | EXTERNAL | | | | | | LAB | | + + + + + + | Anion Gap | 15.8 | 7 - 21 mmol/L | EXTERNAL | | | | | | LAB | | + + + + + + | Estimated | 14 (A) | 60 mg/dL | EXTERNAL | | | GFR [...]
--- OUTSIDE RECORDS SUMMARY | ~2019-12-23 | XMS | Encounter Summary ---
Demographics + + + | Address | [address] | | | [place] [address] | + + + | Home Phone | | + + + | Preferred Language | Unknown | + + + | Marital Status | | + + + | Rastafarian Affiliation | Unknown | + + + | Race | White | + + + | Ethnic Group | Not or | + + + Author + + + | Author | [facility] | + + + | Organization | [facility] | + + + | Address | Unknown | + + + | Phone | Unavailable | + + + Support + + +---------+ + | Name | Relationship | Address | Phone | + + +---------+ + | Marcela Vital | ECON | Unknown | | + + +---------+ + Care Team Providers + +------+ + | Care Shoe Lay Out Planner Name | Role | Phone | + [...] 2017 | | Transplant Services | RN [address] [facility] | Workup (Intake) | | | | [address] | [address] | | | | | Parul Viveros [place], | [place], [place] | | | | | [place] [address] | [address] | | | | | [phone] | | | +--------+ + + + [...]
--- OUTSIDE RECORDS SUMMARY | ~2019-12-23 | XMS | Encounter Summary ---
Demographics + + + | Address | [address] | | | [place] [address] | + + + | Home Phone [...] | + + + + + | Marecla Jamesgan | ECON | [address] | | | | | [facility] | | | | | [address] | | + + + + + | Parth Vital | ECON | Unknown | | + + + + + Care Team Providers + +------+ + | Care Weeder Thinner Name | Role | Phone | + [...] Radiology | Diagnoses | Mahidhar, | [facility] [facility] | | | | | | Ravilla L, | [address] | | | | | Hypertension | [place] [address] | [place] | | | | | Procedures | [address] | [address] | | | | | ECHO | [address] | Phone: | | | | | Complete | [place] | [phone] | | | | | | [address] | Fax: | | | | | | Phone: | [phone] | | | | | | [phone] | | | | | | | Fax: | | | | | | | [phone] | | +--------+--------+ + + + + Reason for Visit Diagnostic/Screening (Routine) +--------+--------+ + + + + | Status | Reason | Specialty | Diagnoses / | Referred By | Referred To | | | | | Procedures | Contact | Contact | +--------+--------+ + + + + | Closed | | Radiology | Diagnoses | Heron, | [place] [facility] | | | | | | Wendy L, | [address] | | | | | Hypertension | [address] | [place] | | | | | Procedures | [address] | [address] | | | | | ECHO | [address] | Phone: | | | | | Complete | [place] | [phone] | | | | | | [address] | Fax: | | | | | | Phone: | [phone] | | | | | | [phone] | | | | | | | Fax: | | | | | | | [phone] | | +--------+--------+ + + + + Encounter Details +--------+ + + + + | Date | Type | Department | Care Team | Description | +--------+ + + + + | 03/04/ | Hospital [facility] | Wendy [facility] | Hypertension | | 2012 | Encounter | [facility] | [place], [address] | | | | | ECHO [address] | [address] | | | | | [place], [place] | [place] [address] | | | | | [address] | [phone] | | | | | [phone] | | | +--------+ + + + [...] + | ECHO COMPLETE | Routin | 03/04/2013 | Hypertension | Results for this | | | e | 10:54 AM | | procedure are in the | | | | PDT | | results section. | + +--------+ + + + documented in this encounter Results ECHO Complete (03/04/2013 10:54 AM PDT) + + | Specimen | + + | | + + + + + | Narrative | Performed At | + + + | Transthoracic Echocardiography Report (TTE) Demographics Patient | [facility] | | Name CORRY REED Gender Male | LAB | | SUNIL Patient Number [id number] Room | | | Number Accession Number [id number] Date of Study | | | 03/04/2013 Date of 1945 Ordering | | | HERON MUÑOZ Corrine | | | Physician Age: 67 year(s) | | | Wastewater Superintendent Estuardo Benites [facility] Physician | | | Interpreting [facility] | | | Mail Handlers Supervisor Physician | | | Group | | [...] Note | + + | Elmo Rubio In - 03/04/2013 10:53 AM PDT Transthoracic Echocardiography Report | | (TTE) Demographics Patient Name CORRY REED Gender Male | | SUNIL Patient Number [id number] Room Number Accession Number [id number] | | Date of Study 03/04/2013 Date of 1945 Ordering | | HERON [place] Physician Age: 67 | | year(s) Wastewater Superintendent Estuardo Benites [facility] Physician | | Interpreting 1 [place] [employer] Physician | | Group See Villareal MD [...] + | [facility] | | | [phone] | + +---------+ + + | [facility] | | | [phone] | + +---------+ + + documented in this encounter Visit Diagnoses + + | Diagnosis | + + | Hypertension Unspecified essential hypertension | + + documented in this encounter"
[~2019-12-23 19:01] MED LIST changes: +TOUJEO SOL300 UNIT/1 SUB-Q
[2019-12-23] MEDS ORDERED: TERAZOSIN HCL10 MG PO (20:06)
[2019-12-23] MEDS ORDERED: COZAAR100 MG PO (20:06)
[2019-12-23] MEDS ORDERED: GLUCOPHAGE500 MG PO (20:07)
[2019-12-23] MEDS ORDERED: EZETIMIBE10 MG PO (20:07)
[2019-12-23] MEDS ORDERED: FUROSEMIDE40 MG PO (20:07)
[2019-12-23] MEDS ORDERED: MINOXIDIL5 GM MISC (20:07)
[2019-12-23] MEDS ORDERED: VITAMIN D350 MC3 PO (20:08)
[2019-12-23] MEDS ORDERED: COREG25 MG PO (20:08)
[2019-12-23] MEDS ORDERED: K-TAB ER20 MEQ PO (20:08)
[2019-12-23] MEDS ORDERED: TOUJEO MAX300 UNIT/1 SQ (20:09)
[2019-12-23] MEDS ORDERED: RENA-VITE TABL0.8 MG (20:09)
[2019-12-23] MEDS ORDERED: VICTOZA 2-0.6 MG/0.1 SUB-Q (20:09)
--- NOTE | 2019-12-24 14:53 | EKG ---
[facility] [address] [facility] [place], [place] [address] Signed Sinus rhythm with 1st degree AV block Septal infarct , age undetermined ST \T\ T wave abnormality, consider inferolateral ischemia Abnormal ECG When compared with ECG of 07-JUN-2017 01:46, Significant changes have occurred Confirmed by RUDY FRANK DO ([id number]) on 12/24/2019 2:53:04 PM Electronically Signed By: RUDY FRANK DO 12/24/19 1453 PATIENT NAME: BRIANNA WHEATLEY Electrocardiogram DATE OF : 43 PHYSICIAN: RUDY FRANK DO REPORT #: [id number] REPORT IS CONFIDENTIAL AND NOT TO BE RELEASED WITHOUT AUTHORIZATION
--- NOTE | 2019-12-24 14:53 | EKG ---
[facility] [address] [facility] [place], [place] [address] Signed Sinus rhythm with 1st degree AV block Anteroseptal infarct (cited on or before 23-DEC-2019) ST \T\ T wave abnormality, consider lateral ischemia Prolonged QT Abnormal ECG When compared with ECG of 23-DEC-2019 19:10, (Unconfirmed) Serial changes of Anteroseptal infarct present Confirmed by RUDY FRANK DO ([id number]) on 12/24/2019 2:53:16 PM Electronically Signed By: RUDY FRANK DO 12/24/19 1453 PATIENT NAME: BRIANNA WHEATLEY Electrocardiogram DATE OF : 43 PHYSICIAN: RUDY FRANK DO REPORT #: [id number] REPORT IS CONFIDENTIAL AND NOT TO BE RELEASED WITHOUT AUTHORIZATION
== END 2019-12-24 00:57 | disposition short-term general hospital (02) ==
LOC: ED 19:01
DX: A41.9 Sepsis, unspecified organism (principal); J18.9 Pneumonia, unspecified organism; E11.22 Type 2 diabetes mellitus with diabetic chronic kidney disease; I12.9 Hypertensive chronic kidney disease with stage 1 through stage 4 chronic kidney disease, or unspecified chronic kidney disease; N18.9 Chronic kidney disease, unspecified; E78.5 Hyperlipidemia, unspecified; Z99.2 Dependence on renal dialysis; Z88.0 Allergy status to penicillin; Z79.899 Other long term (current) drug therapy
CPT/HCPCS: 36600; 71045; 80053; 82803; 83605; 83735; 83880; 84484; 85025; 85610; 85730; 93005; 93010; 96365; 96366; 96368; 99285-25; J0692; J1650; J1956; J3370; J7060

== ENCOUNTER 2020-04-28 01:37 | Emergency (ER) | payer MEDICARE, OTHER ==
[~2020-04-28] VITALS: Ht 175.3 cm; Wt 87.1 kg
[~2020-04-28 01:37] MED LIST changes: +COREG25 MG PO; +COZAAR100 MG PO; +EZETIMIBE10 MG PO; +FUROSEMIDE40 MG PO; +GLUCOPHAGE500 MG PO; +K-TAB ER20 MEQ PO; +MINOXIDIL5 GM MISC; +RENA-VITE TABL0.8 MG; +TOUJEO MAX300 UNIT/1 SQ; +VICTOZA 2-0.6 MG/0.1 SUB-Q; +VITAMIN D350 MC3 PO
[2020-04-28] MEDS ORDERED: MINOXIDIL2.5 MG PO (01:55)
[2020-04-28] MEDS ORDERED: POTASSIUM CHLO10 MEQ PO (01:57)
--- NOTE | 2020-04-28 17:54 | EKG ---
[facility] [address] [facility] [place] [address] Signed Accelerated Junctional rhythm Anterior infarct (cited on or before 23-DEC-2019) Marked ST abnormality, possible inferior subendocardial injury Abnormal ECG When compared with ECG of 23-DEC-2019 21:20, Junctional rhythm has replaced Sinus rhythm T wave inversion now evident in Inferior leads Nonspecific T wave abnormality has replaced inverted T waves in Lateral leads Confirmed by PARISH FISCHER MD ([id number]) on 04/28/2020 5:54:33 PM Electronically Signed By: PARISH FISCHER MD 04/28/20 1754 PATIENT NAME: BRIANNA WHEATLEY Electrocardiogram DATE OF : 43 PHYSICIAN: PARISH FISCHER MD REPORT #: [id number] REPORT IS CONFIDENTIAL AND NOT TO BE RELEASED WITHOUT AUTHORIZATION
== END 2020-04-28 04:57 | disposition short-term general hospital (02) ==
LOC: ED 01:37
DX: J81.1 Chronic pulmonary edema (principal); E87.70 Fluid overload, unspecified; Z86.73 Personal history of transient ischemic attack (TIA), and cerebral infarction without residual deficits; I12.9 Hypertensive chronic kidney disease with stage 1 through stage 4 chronic kidney disease, or unspecified chronic kidney disease; E11.22 Type 2 diabetes mellitus with diabetic chronic kidney disease; N18.9 Chronic kidney disease, unspecified; E78.5 Hyperlipidemia, unspecified; G47.30 Sleep apnea, unspecified; Z88.0 Allergy status to penicillin; Z79.899 Other long term (current) drug therapy; Z79.82 Long term (current) use of aspirin; Z79.4 Long term (current) use of insulin
CPT/HCPCS: 71045; 74018; 80053; 83605; 83690; 84484; 85025; 93005; 93010; 94640; 96374; 99285-25; C9803; J1940; U0003

== ENCOUNTER 2020-10-09 16:19 | Emergency (ER) | payer MEDICARE, OTHER ==
[~2020-10-09] VITALS: Ht 175.3 cm; Wt 89.4 kg
[~2020-10-09 16:19] MED LIST changes: +MINOXIDIL2.5 MG PO; +POTASSIUM CHLO10 MEQ PO
--- NOTE | 2020-10-09 19:34 | EKG ---
[facility] [address] [facility] [place] [address] Signed Sinus rhythm with premature atrial complexes Lateral infarct (cited on or before 23-DEC-2019) Inferior infarct , age undetermined Abnormal ECG When compared with ECG of 28-APR-2020 02:05, Significant changes have occurred Confirmed by PARISH FISCHER MD ([id number]) on 10/09/2020 7:34:10 PM Electronically Signed By: PARISH FISCHER MD 10/09/20 193 PATIENT NAME: BRIANNA WHEATLEY Electrocardiogram DATE OF : 43 PHYSICIAN: PARISH FISCHER MD REPORT #: [id number] REPORT IS CONFIDENTIAL AND NOT TO BE RELEASED WITHOUT AUTHORIZATION
== END 2020-10-09 18:50 | disposition short-term general hospital (02) ==
LOC: ED 16:19
DX: S06.5X0A Traumatic subdural hemorrhage without loss of consciousness, initial encounter (principal); W22.8XXA Striking against or struck by other objects, initial encounter; Z20.822 Contact with and (suspected) exposure to COVID-19; E11.22 Type 2 diabetes mellitus with diabetic chronic kidney disease; I12.9 Hypertensive chronic kidney disease with stage 1 through stage 4 chronic kidney disease, or unspecified chronic kidney disease; E78.5 Hyperlipidemia, unspecified; N18.9 Chronic kidney disease, unspecified; G47.30 Sleep apnea, unspecified; Z88.0 Allergy status to penicillin; Z79.899 Other long term (current) drug therapy; Z79.82 Long term (current) use of aspirin; Z79.4 Long term (current) use of insulin
CPT/HCPCS: 80053; 85025; 85610; 85730; 90471; 90715; 93005; 93010; 99284-25; C9803; U0003

== ENCOUNTER 2020-10-26 20:33 | Emergency (ER) | payer MEDICARE, OTHER ==
[~2020-10-26] VITALS: Ht 175.3 cm; Wt 95.5 kg
--- OUTSIDE RECORDS SUMMARY | 2020-10-26 20:36 | XMS ---
PreManage Notification: BRIANNA WHEATLEY Security Psychology Associate Events No recent Security Events currently on file CRITERIA MET - [facility] - 2 Visits in 30 Days CARE PROVIDERS There are no care providers on record at this time. Heather has no Care Guidelines for this patient. Ro VISIT COUNT (12 MO.) 1 [facility] NOTE: Visits indicate total known visits. ED/C VISIT TRACKING (12 MO.) [facility]2020 [facility] [place] [facility] COMPLAINT: - BLOOD PRESSURE PROBLEM 10/09/2020 20:20 [facility] TYPE: Emergency DIAGNOSES: 48831. trauma transfer [id number]. Traumatic subdural hemorrhage with loss of consciousness of unspecified duration, initial encounter 10/09/2020 16:20 [facility] TYPE: Emergency COMPLAINT: - HEAD PAIN DIAGNOSES: - roasterman (current) use of aspirin - Other specified disorders of brain - Striking against or struck by other objects, initial encounter - Allergy status to penicillin - Headache, unspecified - Other marine oil terminal superintendent (current) drug therapy - Chronic kidney disease, unspecified - Hypertensive chronic kidney disease with stage 1 through stage 4 chronic kidney disease, or unspecified chronic kidney disease - Sleep apnea, unspecified - Traumatic subdural hemorrhage without loss of consciousness, initial encounter - Type 2 diabetes mellitus with diabetic chronic kidney disease - roasterman (current) use of insulin - Hyperlipidemia, unspecified - Contusion of scalp, initial encounter 04/28/2020 01:37 [facility] TYPE: Emergency COMPLAINT: - ABDOMINAL PAIN DIAGNOSES: - Generalized abdominal pain - Allergy status to penicillin - Type 2 diabetes mellitus with diabetic chronic kidney disease - Chronic pulmonary edema - Hyperlipidemia, unspecified - Fluid overload, unspecified - Sleep apnea, unspecified - Chronic kidney disease, unspecified - Contact with and (suspected) exposure to other viral communicable diseases - roasterman (current) use of insulin - Other marine oil terminal superintendent (current) drug therapy - Hypertensive chronic kidney disease with stage 1 through stage 4 chronic kidney disease, or unspecified chronic kidney disease - Personal history of transient ischemic attack (TIA), and cerebral infarction without residual deficits - custodial (current) use of aspirin 12/23/2019 19:02 [facility] TYPE: Emergency COMPLAINT: - SOB DIAGNOSES: - Pneumonia, unspecified organism - Chronic kidney disease, unspecified - Hypertensive chronic kidney disease with stage 1 through stage 4 chronic kidney disease, or unspecified chronic kidney disease - Other marine oil terminal superintendent (current) drug therapy - Sepsis, unspecified organism - Type 2 diabetes mellitus with diabetic chronic kidney disease - Allergy status to penicillin - Dependence on renal dialysis - Shortness of breath - Hyperlipidemia, unspecified INPATIENT VISIT TRACKING (12 MO.) 10/09/2020 20:20 [facility] TYPE: Nephrology DIAGNOSES: [address]. Traumatic subdural hemorrhage with loss of consciousness of unspecified duration, initial encounter [facility]28/2020 [facility] 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
--- NOTE | 2020-10-27 07:22 | EKG ---
[facility] [address] [facility] [place], [place] [address] Signed Unusual P axis, possible ectopic atrial rhythm ST \T\ T wave abnormality, consider inferior ischemia Prolonged QT Abnormal ECG When compared with ECG of 09-OCT-2020 17:11, Significant changes have occurred Confirmed by PARISH FISCHER MD ([id number]) on 10/27/2020 7:22:25 AM Electronically Signed By: PARISH FISCHER MD 10/27/20 0722 PATIENT NAME: BRIANNA WHEATLEY Electrocardiogram DATE OF : 43 PHYSICIAN: PARISH FISCHER MD REPORT #: [id number] REPORT IS CONFIDENTIAL AND NOT TO BE RELEASED WITHOUT AUTHORIZATION
== END 2020-10-27 02:50 | disposition short-term general hospital (02) ==
LOC: ED 20:33
DX: S06.5X9A Traumatic subdural hemorrhage with loss of consciousness of unspecified duration, initial encounter (principal); J96.01 Acute respiratory failure with hypoxia; J81.1 Chronic pulmonary edema; W18.30XA Fall on same level, unspecified, initial encounter; E11.9 Type 2 diabetes mellitus without complications; Z20.822 Contact with and (suspected) exposure to COVID-19; I10 Essential (primary) hypertension; E78.5 Hyperlipidemia, unspecified; G47.30 Sleep apnea, unspecified; Z88.0 Allergy status to penicillin; Z79.899 Other long term (current) drug therapy; Z79.82 Long term (current) use of aspirin; Z79.4 Long term (current) use of insulin
CPT/HCPCS: 70450; 71045; 80053; 81001; 83605; 83690; 83735; 83880; 84484; 85025; 87040; 93005; 93010; 96374; 99285-25; J1940; U0003

== ENCOUNTER 2024-09-01 16:03 | Emergency (ER) | payer MEDICARE, OTHER ==
[~2024-09-01] VITALS: Ht 175.3 cm; Wt 83.5 kg
[2024-09-01 17:19] LABS: BASOPHILS 0.6 % (0-2); EOSINOPHILS 1.5 % (0-6); HEMATOCRIT 30.7 % (35.0-50.0); HEMOGLOBIN 10.5 g/dL (12.0-18.0); LYMPHOCYTES 11.3 % (24-44); MCH 30.5 (27-36); MCHC 34.4 g/dl (30-36); MCV 88.6 fl (81-99); MONOCYTES 7.9 % (0-12); NEUTROPHILS 78.7 % (39-80); PLATELET COUNT 170 K/uL (140-440); RBC 3.46 M/ul (4.3-5.7); RDW 14.9 (10.5-15.0)
[2024-09-01 17:34] LABS: ALBUMIN 3.1 g/dL (3.4-5.0); ALBUMIN/GLOBULIN RATIO 1.15 (1.1-2.4); ALCOHOL, MEDICAL <3 ng/dL (<3); ALKALINE PHOSPHATASE 46 U/L (46-116); ALT (SGPT) 12 U/L (14-59); AST (SGOT) 23 U/L (15-37); BILIRUBIN, TOTAL 0.5 mg/dL (0.2-1.0); BUN/CREATININE RATIO 2.68 (6.0-28.6); CALCIUM 9.3 mg/dL (8.5-10.1); CARBON DIOXIDE 37 mmol/L (21-32); CHLORIDE 102 mmol/L (98-107); CREATINE KINASE 130 U/L (39-308); CREATININE, SERUM 3.72 mg/dL (0.70-1.30); GLOMERULAR FILTRATION RATE,EST 16 mL/min (>60); PROTEIN, TOTAL 5.8 g/dL (6.4-8.2); UREA NITROGEN 10 mg/dL (7-18)
[2024-09-01 18:35] LABS: ABO A; ANTIBODY SCREEN NEGATIVE; RH NEGATIVE
[2024-09-01] MEDS ORDERED: MORPHINE SULFATE 4 MG/ML VIAL IV ONE (21:00)
[2024-09-01 21:04] VITALS: BP 183/65
--- NOTE | 2024-09-02 22:36 | EKG ---
[facility] [address] [facility] [place] [address] Signed Sinus rhythm with 1st degree AV block Left ventricular hypertrophy with repolarization abnormality ( Sokolow-Locke ) Anteroseptal infarct , age undetermined Abnormal ECG When compared with ECG of 26-OCT-2020 21:45, Sinus rhythm has replaced Ectopic atrial rhythm Anteroseptal infarct is now present T wave inversion no longer evident in Inferior leads T wave inversion more evident in Lateral leads Confirmed by Anshul Christopher MD () on 09/02/2024 10:36:34 PM Electronically Signed By: ANSHUL CHRISTOPHER MD 09/02/24 2236 PATIENT NAME: BRIANNA WHEATLEY Electrocardiogram DATE OF : 43 PHYSICIAN: ANSHUL CHRISTOPHER MD REPORT #: [id number] REPORT IS CONFIDENTIAL AND NOT TO BE RELEASED WITHOUT AUTHORIZATION
== END 2024-09-01 21:04 | disposition short-term general hospital (02) ==
LOC: ED 16:03
PROVIDERS: Emergency Medicine
DX: S22.41XA Multiple fractures of ribs, right side, initial encounter for closed fracture (principal); S62.633A Displaced fracture of distal phalanx of left middle finger, initial encounter for closed fracture; S00.83XA Contusion of other part of head, initial encounter; S00.11XA Contusion of right eyelid and periocular area, initial encounter; E11.22 Type 2 diabetes mellitus with diabetic chronic kidney disease; I12.0 Hypertensive chronic kidney disease with stage 5 chronic kidney disease or end stage renal disease; N18.6 End stage renal disease; I69.30 Unspecified sequelae of cerebral infarction; W18.30XA Fall on same level, unspecified, initial encounter; Z79.899 Other long term (current) drug therapy; Z79.82 Long term (current) use of aspirin; Z99.2 Dependence on renal dialysis; Z88.0 Allergy status to penicillin; Z79.4 Long term (current) use of insulin; Z79.84 Long term (current) use of oral hypoglycemic drugs
CPT/HCPCS: 36415; 51798; 70450; 70486; 71045; 71250; 72125; 73130; 80053; 80307; 82550; 83605; 85025; 86850; 86900; 86901; 93005; 93010; 96374; 99285-25; G0480; J2270

== ENCOUNTER 2024-09-16 12:39 | Emergency (ER) | payer MEDICARE, OTHER ==
[~2024-09-16] VITALS: Ht 175.3 cm; Wt 85.0 kg
[~2024-09-16 12:39] MED LIST changes: -COREG25 MG PO; +COREG6.25 MG PO; -COZAAR100 MG PO; +COZAAR50 MG PO
[2024-09-16] MEDS ORDERED: GABAPENTIN100 MG PO (13:01)
[2024-09-16] MEDS ORDERED: ATORVASTATIN CA40 MG PO (13:02)
[2024-09-16] MEDS ORDERED: LOSARTAN POTASS50 MG PO (13:02)
[2024-09-16] MEDS ORDERED: OZEMPIC2 MG/0.75 SUB-Q (13:02)
[2024-09-16 13:50] LABS: BASOPHILS 0.9 % (0-2); EOSINOPHILS 1.6 % (0-6); HEMATOCRIT 30.8 % (35.0-50.0); HEMOGLOBIN 10.5 g/dL (12.0-18.0); LYMPHOCYTES 11.9 % (24-44); MCH 29.6 (27-36); MCHC 34.2 g/dl (30-36); MCV 86.7 fl (81-99); MONOCYTES 5.2 % (0-12); NEUTROPHILS 80.4 % (39-80); PLATELET COUNT 248 K/uL (140-440); RBC 3.55 M/ul (4.3-5.7); RDW 15.1 (10.5-15.0)
[2024-09-16 14:10] LABS: ALBUMIN 2.8 g/dL (3.4-5.0); ALBUMIN/GLOBULIN RATIO 0.8 (1.1-2.4); ANION GAP 7.8 (7-21); BILIRUBIN, TOTAL 0.3 mg/dL (0.2-1.0); BUN/CREATININE RATIO 4.24 (6.0-28.6); CALCIUM 9.9 mg/dL (8.5-10.1); CREATININE, SERUM 5.42 mg/dL (0.70-1.30); POTASSIUM 4.8 mmol/L (3.5-5.1); PROTEIN, TOTAL 6.3 g/dL (6.4-8.2)
[2024-09-16] MEDS ORDERED: LEVOFLOXACIN750 MG PO (16:38)
[2024-09-16] MEDS ORDERED: levoFLOXacin 750 MG TAB PO ONE (16:45)
[2024-09-16 17:38] VITALS: BP 158/61
--- NOTE | 2024-09-16 21:44 | EKG ---
[facility] [address] [facility] [place] [address] Signed Atrial fibrillation Anteroseptal infarct (cited on or before 01-SEP-2024) ACUTE [place] / STEMI Abnormal ECG When compared with ECG of 01-SEP-2024 16:03, Atrial fibrillation has replaced Sinus rhythm Serial changes of Anteroseptal infarct present Confirmed by Anshul Christopher MD () on 09/16/2024 9:44:23 PM Electronically Signed By: ANSHUL CHRISTOPHER MD 09/16/24 2144 PATIENT NAME: BRIANNA WHEATLEY Electrocardiogram DATE OF : 43 PHYSICIAN: ANSHUL CHRISTOPHER MD REPORT #: [id number] REPORT IS CONFIDENTIAL AND NOT TO BE RELEASED WITHOUT AUTHORIZATION
--- NOTE | 2024-09-16 21:47 | EKG ---
[facility] [address] [facility] [place] [address] Signed Atrial fibrillation Septal infarct (cited on or before 01-SEP-2024) ST \T\ T wave abnormality, consider inferolateral ischemia Abnormal ECG When compared with ECG of 16-SEP-2024 13:24, No significant change was found Confirmed by Anshul Christopher MD () on 09/16/2024 9:47:05 PM Electronically Signed By: ANSHUL CHRISTOPHER MD 09/16/24 2147 PATIENT NAME: BRIANNA WHEATLEY Electrocardiogram DATE OF : 43 PHYSICIAN: ANSHUL CHRISTOPHER MD REPORT #: [id number] REPORT IS CONFIDENTIAL AND NOT TO BE RELEASED WITHOUT AUTHORIZATION
== END 2024-09-16 17:38 | disposition home or self-care (01) ==
LOC: ED 12:39
PROVIDERS: Emergency Medicine
DX: J18.9 Pneumonia, unspecified organism (principal); S22.41XD Multiple fractures of ribs, right side, subsequent encounter for fracture with routine healing; I12.0 Hypertensive chronic kidney disease with stage 5 chronic kidney disease or end stage renal disease; E11.22 Type 2 diabetes mellitus with diabetic chronic kidney disease; N18.6 End stage renal disease; I69.354 Hemiplegia and hemiparesis following cerebral infarction affecting left non-dominant side; E78.5 Hyperlipidemia, unspecified; G47.30 Sleep apnea, unspecified; Z99.2 Dependence on renal dialysis; Z79.4 Long term (current) use of insulin; Z88.2 Allergy status to sulfonamides; Z79.85 Long-term (current) use of injectable non-insulin antidiabetic drugs; Z79.899 Other long term (current) drug therapy; W18.30XD Fall on same level, unspecified, subsequent encounter
CPT/HCPCS: 36415; 71250; 80053; 83605; 84484; 85025; 93005; 93010; 99285-25

== ENCOUNTER 2025-03-27 19:42 | Emergency (ER) | payer MEDICARE, OTHER ==
[~2025-03-27] VITALS: Ht 175.3 cm; Wt 85.0 kg
[~2025-03-27 19:42] MED LIST changes: +ATORVASTATIN CA40 MG PO; +GABAPENTIN100 MG PO; +LEVOFLOXACIN750 MG PO; +OZEMPIC2 MG/0.75 SUB-Q
[2025-03-27 20:08] LABS: BASOPHILS 1.0 % (0.2-1.2); EOSINOPHILS 3.3 % (0.8-7.0); LYMPHOCYTES 17.5 % (21.8-53.1); MCH 28.7 PG (25.7-32.2); MCHC 32.0 g/dL (32.3-36.5); MCV 89.7 fL (79.0-92.2); MONOCYTES 6.5 % (5.3-12.2); NEUTROPHILS 71.4 % (34.0-67.9); RBC 3.80 M/uL (4.63-6.08)
[2025-03-27 20:25] LABS: ALT (SGPT) 14.0 U/L (14-59); AST (SGOT) 16.0 U/L (15-37); GLOMERULAR FILTRATION RATE,EST 8.0 mL/min (>60); PROTEIN, TOTAL 6.5 g/dL (6.4-8.2); UREA NITROGEN 29.0 mg/dL (7-18)
[2025-03-27 21:40] VITALS: BP 141/87
== END 2025-03-27 21:41 | disposition home or self-care (01) ==
LOC: ED 19:42
PROVIDERS: Family Medicine
DX: E11.65 Type 2 diabetes mellitus with hyperglycemia (principal); I12.9 Hypertensive chronic kidney disease with stage 1 through stage 4 chronic kidney disease, or unspecified chronic kidney disease; E11.22 Type 2 diabetes mellitus with diabetic chronic kidney disease; N18.9 Chronic kidney disease, unspecified; E78.5 Hyperlipidemia, unspecified; Z88.0 Allergy status to penicillin; Z79.899 Other long term (current) drug therapy
CPT/HCPCS: 36415; 74018; 80053; 83735; 85025; 99283